=== PATIENT | female | born 1995 | race Caucasian/White ===

== ENCOUNTER 2022-11-17 03:55 | Emergency (ER) | payer BC, OTHER, SELFPAY ==
[2022-11-17 04:03] VITALS: BP 128/95; PULSE 59; RESP 18; TEMP 36.6; O2SAT 100
--- NOTE | 2022-11-17 04:13 | ED.GENADUL1 ---
HPI - General Adult General Chief complaint: Headache Time Seen by Provider: 11/17/22 04:10 Source: patient Mode of arrival: walk-in History of Present Illness HPI narrative: woke with pain along the right neck. Said that her neck was turned when she woke. Took nothing for the pain - came directly to the ED. No injury. No associated symptoms. Worse when trying to turn the neck to the right - easier to turn to the left. Denies any chance of Related Data Home Medications Medication Instructions Recorded Confirmed albuterol sulfate 90 mcg/actuation 2 puff inhalation Q6H PRN 11/17/22 11/17/22 aerosol inhaler shortness of breath or wheezing duloxetine 30 mg capsule,delayed 30 mg PO DAILY 11/17/22 11/17/22 release (Cymbalta) Previous Rx's Medication Instructions Recorded methocarbamol 750 mg tablet 750 mg PO Q8H #20 tabs 11/17/22 nabumetone 1,000 mg tablet 1,000 mg PO BID #14 tabs 11/17/22 (Relafen DS) Allergies Allergy/AdvReac Type Severity Reaction Status Date / Time No Known Drug Allergies Allergy Verified 11/17/22 04:03 Exam Narrative Exam Narrative: Nurses notes and vital signs reviewed and patient is not hypoxic. afebrile General: Well-appearing and in no apparent distress. Skin: Warm, dry, no pallor noted. No rash. Head: Normocephalic, atraumatic. Neck: Supple, no lymphadenopathy. Soft tissue tenderness right posteriolateral neck. Eye: Pupils are equal, round and EOMI. No scleral icterus. Cardiovascular: Regular Rate and Rhythm without murmur, gallop or rub. Respiratory: No accessory muscle use or respiratory distress. Lungs are clear to auscultation, no wheezing, rales or rhonchi Musculoskeletal: normal ROM Neurological: A&O x4. No cranial nerve dysfunction observed. No truncal ataxia. Moves all extremities. Sensation intact. Psychiatric: Cooperative and interactive. Normal mood and affect. Constitutional Vital Signs - 24 hr 11/17/22 04:03 Temperature 97.8 F Pulse Rate [Monitor] 59 L Respiratory Rate 18 Blood Pressure [Right Arm] 128/95 H Pulse Oximetry 100 Oxygen Delivery Method Room Air Course Vital Signs Vital signs: Vital Signs Temperature 97.8 F 11/17/22 04:03 Pulse Rate 59 L 11/17/22 04:03 Respiratory Rate 18 11/17/22 04:03 Blood Pressure 128/95 H 11/17/22 04:03 Pulse Oximetry 100 11/17/22 04:03 Oxygen Delivery Method Room Air 11/17/22 04:03 Temperature 97.8 F 11/17/22 04:03 Pulse Rate 59 L 11/17/22 04:03 Respiratory Rate 18 11/17/22 04:03 Blood Pressure 128/95 H 11/17/22 04:03 Pulse Oximetry 100 11/17/22 04:03 Oxygen Delivery Method Room Air 11/17/22 04:03 Medical Decision Making MDM Narrative Medical decision making narrative: patient with torticollis - given IM Toradol and oral Robaxin and discharged home. Prescribed relafen and robaxin for home use. Discharge Plan Discharge Chief Complaint: Headache Clinical Impression: Torticollis Patient Disposition: Home, Self-Care Time of Disposition Decision: 04:11 Prescriptions / Home Meds: New Relafen DS 1,000 mg tablet 1,000 mg PO BID Qty: 14 0RF methocarbamol 750 mg tablet 750 mg PO Q8H Qty: 20 0RF No Action duloxetine [Cymbalta] 30 mg capsule,delayed release(DR/EC) 30 mg PO DAILY albuterol sulfate 90 mcg/actuation HFA aerosol inhaler 2 puff INHALATION Q6H PRN (Reason: shortness of breath or wheezing) Instructions: Spasmodic Torticollis (ED) Stand Alone Forms: Portal Instructions Referrals: PALMIRA RIGGS [Primary Care Provider] - 1 week
[2022-11-17] MEDS: KETOROLAC TROMETHAMINE 60 MG/2 ML VIAL IM (04:16)
[2022-11-17] MEDS: METHOCARBAMOL 500 MG TABLET PO (04:16)
== END 2022-11-17 04:34 | disposition home or self-care (01) ==
LOC: ER 04:18
PROVIDERS: Emergency Provider Emergency Medicine; PCP Internal Medicine
DX: M43.6 Torticollis (principal); Z79.899 Other long term (current) drug therapy
CPT/HCPCS: 96374; 99284

== ENCOUNTER 2023-02-09 22:32 | Emergency (ER) | payer BC, SELFPAY ==
[2023-02-09 22:36] VITALS: BP 137/78; PULSE 79; RESP 18; O2SAT 99
--- NOTE | 2023-02-09 22:48 | XR_ITS ---
The [address] [address] Patient Name: MACARENA GAMBLE MRN: [id number] date: 1995 Sex: F Assigned Patient Location: ER Current Patient Location: ER Accession/Order Number: [id number] Exam Date: 02/09/2023 23:10 Report Date: 02/09/2023 23:22 At the request of: NICOLE MARKER Procedure: XR hand RT min 3V EXAM: XR hand RT min 3V HISTORY: Dog bite COMPARISON: None. TECHNIQUE: 2 views FINDINGS: IMPRESSION: Dorsal subcutaneous soft tissue edema. No radiodense foreign body, osseous lesion, fracture, dislocation or subluxation. Joint spaces are normal. No visualized effusion. Electronically authenticated by: JIE MANCINI Date: 02/09/2023 23:22
--- NOTE | 2023-02-09 22:48 | ED_ITS ---
HPI - Extremity Injury (Upper) General Chief Complaint: Extremity Injury, Upper Stated Complaint: Bite - Dog / Laceration-Punctures Time Seen by Provider: 02/09/23 22:43 Source: patient and family (Mother) History of Present Illness HPI narrative: This 27-year-old female who is right-hand dominant presents for evaluation of a dog bite to her right hand. The patient's mother states that they recently rescued a dog from a family in [place]. They were not given any information about the dog. The dog has not become acclimated to the other dog in the house and tonight the 2 dogs started fighting and the patient was accidentally bitten the right hand. She sustained a puncture wound to her right thenar eminence and 2 puncture wounds over the right 4th and 5th metacarpals as well as lacerated real to the distal end of the 4th finger. She states her hand feels painful and numb. She does not know the date of her last tetanus shot. Dog's immunization status is unknown at this time. Related Data Home Medications Medication Instructions Recorded Confirmed albuterol sulfate 90 mcg/actuation 2 puff inhalation Q6H PRN 11/17/22 11/17/22 aerosol inhaler shortness of breath or wheezing duloxetine 30 mg capsule,delayed 30 mg PO DAILY 11/17/22 11/17/22 release (Cymbalta) Previous Rx's Medication Instructions Recorded methocarbamol 750 mg tablet 750 mg PO Q8H #20 tabs 11/17/22 nabumetone 1,000 mg tablet 1,000 mg PO BID #14 tabs 11/17/22 (Relafen DS) Allergies Allergy/AdvReac Type Severity Reaction Status Date / Time No Known Drug Allergies Allergy Verified 11/17/22 04:03 Review of Systems ROS Status of ROS 10 or more systems reviewed and unremarkable except as noted in history and below PFS PFS Social History Smoking status: Never smoker Exam Narrative Exam Narrative: Nurses note and vital signs reviewed and patient is not hypoxic. General: Anxious, tearful female, no respiratory distress Skin: Warm, dry, no pallor noted. There is no rash noted. See description of right hand injury and musculoskeletal section Head: Normocephalic, atraumatic Eye: Normal conjunctiva, no drainage, EOMI. PERRL Ears, Nose, Mouth, and Throat: oral mucosa is moist. Cardiovascular: Regular Rate and Rhythm S1S2, Pulses are brisk and equal bilaterally Respiratory: Patient is in no distress, no accessory muscle use, lungs are clear to auscultation, no wheezing, rales or rhonchi Back: non-tender, no CVA tenderness bilaterally to percussion. Musculoskeletal: There Are 4 puncture wounds on the patient's right hand. There is an approximately 1 cm irregular puncture wound at the right thenar eminence, there are 2 puncture wounds 1 over the right 3rd MCP and went over the right 4th MCP. The one over the 3rd MCP is elliptical in approximately 1 cm. The other one is small and irregular. There are 2 superficial lacerations at the distal end of the right 3rd finger. Patient is reluctant to move her hands and fingers due to pain but she has no weakness or numbness. No active bleeding noted. Neurological: A&O x4, normal speech Psychiatric: Cooperative, tearful and anxious Constitutional Vital Signs, click to edit/add: Last Vital Signs Pulse 79 02/09/23 22:36 Resp 18 02/09/23 22:36 BP 137/78 02/09/23 22:36 Pulse Ox 99 02/09/23 22:36 O2 Del Method Room Air 02/09/23 22:36 Course Vital Signs Vital signs: Vital Signs Pulse Rate 79 02/09/23 22:36 Respiratory Rate 18 02/09/23 22:36 Blood Pressure 137/78 02/09/23 22:36 Pulse Oximetry 99 02/09/23 22:36 Oxygen Delivery Method Room Air 02/09/23 22:36 Pulse Rate 79 02/09/23 22:36 Respiratory Rate 18 02/09/23 22:36 Blood Pressure 137/78 02/09/23 22:36 Pulse Oximetry 99 02/09/23 22:36 Oxygen Delivery Method Room Air 02/09/23 22:36 MDM - Extremity Injury (Upper) MDM Narrative Medical decision making narrative: This 27-year-old female who is right-hand dominant is brought emergency department by her mother after she was bit by her mother's dog that she recently rescued from a family in [place]. She has 2 approximately 1 cm size puncture wound lacerations on the dorsal aspect of her right hand, but official lacerations to the distal end of her right 3rd finger and 2 additional puncture wounds adjacent to the laceration site. She was neurovascularly intact. Her hand was soaked in warm Hibiclens solution. Her tetanus was updated. X-ray of the right hand did not show any fracture or foreign body but did show soft tissue swelling consistent with the dog bites. The hand was infiltrated with 1 percent lidocaine and scrubbed with Betadine scrub. It was then irrigated and the lacerations that were approximately 1 cm were closed with 2 stitches each. A sterile dry dressing was placed on the patient's hand. Tetanus was updated. She was medicated emergency department with oral Augmentin and Zofran and a Riverside. She'll be discharged home with 2 Riverside to take throughout the night if she needs them for pain additionally I suggested that she use an ice pack. I extended her that the sutures can be removed in the next 10-12 days. I did encourage the patient's mother to attempt to reach the family that the dog was rescued from to see if the dog had its immunizations and if not the dog should be monitored for 10 days. Discharge Plan Discharge Chief Complaint: Extremity Injury, Upper Clinical Impression: Puncture wound, Dog bite of hand, Laceration of hand Patient Disposition: Home, Self-Care Time of Disposition Decision: 23:54 Condition: Good Prescriptions / Home Meds: No Action duloxetine [Cymbalta] 30 mg capsule,delayed release(DR/EC) 30 mg PO DAILY albuterol sulfate 90 mcg/actuation HFA aerosol inhaler 2 puff INHALATION Q6H PRN (Reason: shortness of breath or wheezing) Relafen DS 1,000 mg tablet 1,000 mg PO BID Qty: 14 0RF methocarbamol 750 mg tablet 750 mg PO Q8H Qty: 20 0RF Instructions: Animal Bite (ED), Care For Your Stitches (ED), Laceration (ED), Puncture Wound (ED) Additional Instructions: Subcutaneous hands and Stand Alone Forms: Portal Instructions Referrals: JELLY CHERY [Primary Care Provider] - 1 week Procedures Procedure Note Date of procedure: 02/09/23 Pre-op diagnosis: right hand laceration; dog bite Post-op diagnosis: same as pre-op Procedure: The right hand was soaked in Hibiclens solution and water. The laceration sites at the right thenar eminence and over the 3rd MCP were infiltrated with 1 percent lidocaine. Once anesthesia was obtained the lacerations were scrubbed with Betadine scrub and irrigated copiously with normal saline. The laceration over the right thenar eminence was loosely approximated with 2, 3-0 Ethilon sutures and the laceration over the 3rd MCP was also slight closed with 2, 3-0 Ethilon sutures. Patient tolerated procedure well. A sterile dry dressing was placed by the nursing staff.
--- NOTE | 2023-02-09 22:48 | PC.NURSE ---
patient states just prior to arrival she was laying on the couch with one of her moms dogs laying on top of her when moms other dog approached and started to growl, patient started to tell dog no and move when dog lunged forward and bit patients right hand. patient with 4 puncture wounds observed with no active bleeding at this time and small laceration to top of right middle finger. patient has been applying pressure and no active bleeding at this time, patient states her finger is starting to feel numb. patient states her mom just rescued this dog from someone who was rehoming the animal so they are unsure if the dog is up to date on vaccinations. patients mother filling out animal bite report at this time. patients wound soaking in Hibiclens at this time and dr guzman at bedside to assess injuries.
[2023-02-09] MEDS: ADACEL DIPH,PERTUSS(ACELL),TET VAC/PF 0.5 ML ADULT SYRINGE IM (23:16)
[2023-02-09] MEDS: AMOXICILLIN/POTASSIUM CLAV 1 TAB TABLET PO (23:16)
[2023-02-09] MEDS: ONDANSETRON 4 MG RAPDIS TABLET SL (23:16)
[2023-02-09] MEDS: LIDOCAINE HCL 1% 100 MG/10 ML MDV INJ (23:54)
== END 2023-02-10 00:29 | disposition home or self-care (01) ==
PROVIDERS: Emergency Provider Emergency Medicine; PCP Internal Medicine
DX: S61.451A Open bite of right hand, initial encounter (principal); W54.0XXA Bitten by dog, initial encounter; Z23 Encounter for immunization; Z79.899 Other long term (current) drug therapy
CPT/HCPCS: 12001; 73130; 90471; 90715; 99284

== ENCOUNTER 2024-03-10 12:29 | Outpatient (OUT) | payer OTHER, SELFPAY ==
--- NOTE | 2024-03-10 12:32 | US_ITS ---
[address] [address] Patient Name: MACRAENA GAMBLE MRN: [id number] date: 1995 Sex: F Assigned Patient Location: [facility] Current Patient Location: [facility] Accession/Order Number: [id number] Exam Date: 03/10/2024 12:33 Report Date: 03/10/2024 13:52 At the request of: NAYELY WILLS Procedure: US OB transvaginal EXAMINATION: US OB transvaginal HISTORY: MISSED MENSES COMPARISON: No relevant comparison available. FINDINGS: Mack intrauterine gestation Gestational sac: 2.71 cm, 7 weeks 4 days CRL: 1.71 cm, 8 weeks 1 day Yolk sac: 3.1 cm Heart rate: 160 bpm The uterus is normal, anteverted, anteflexed. Adjacent to the gestational sac is a 1.1 x 1.0 x 1.3 cm area of hypoechogenicity possibly representing a small subchorionic hematoma The ovaries are normal Cervix: Closed, 3.5 cm Clinical age: 8w5d Clinical greta: 10/15/24 Ultrasound age: 8w1d Ultrasound greta: 10/19/24 US/US OB transvaginal IMPRESSION: Viable mack intrauterine gestation measuring 8 weeks 1 day Electronically authenticated by: JIE TORRES Date: 03/10/2024 13:52
== END 2024-03-10 12:30 | disposition home or self-care (01) ==
LOC: NOMS 12:30
PROVIDERS: PCP Internal Medicine; Visit Provider Obstetrics & Gynecology
DX: Z34.01 Encounter for supervision of normal first pregnancy, first trimester (principal); Z3A.08 8 weeks gestation of pregnancy; N92.6 Irregular menstruation, unspecified
CPT/HCPCS: 76817

== ENCOUNTER 2024-04-04 09:26 | Outpatient (OUT) | payer BC, OTHER, SELFPAY ==
--- OUTSIDE RECORDS SUMMARY | 2024-04-04 09:50 | XMS_ITS | CCD ---
Author Organization [facility] Inform ion [facility] Care Team Providers Care Quality Assurance Director Name Role Phone Palmira Riggs DO Primary Care Provider SIMONE MANLEY Attending Unavailable PALMIRA RIGGS Primary Care Unavailable Asim Palma Unavailable Belia Vázquez Unavailable EMY, DR MCDOWELL Attending Unavailable EMY, DR MCDOWELL Consulting Unavailable EMY, DR MCDOWELL Admitting Unavailable PALMIRA RIGGS Primary Care Unavailable CONCHITA MEANS Admitting Unavailable CONCHITA MEANS Attending Unavailable CONCHITA MEANS Consulting Unavailable PALMIRA RIGGS Primary Care Unavailable TIP, DR HAWA Gorman Attending Unavailable TIP, DR HAWA Gorman Consulting Unavailable PALMIRA RIGGS Primary Care Unavailable TIP, DR HAWA Gorman Admitting Unavailable YAAKOV SANFORD Consulting Unavailable Belia Aguero Unavailable PALMIRA RIGGS Primary Care Physician [phone] Nasreen Delaney Unavailable MD Jelly Chery Primary Care Provider MD Simone Meng Emergency Provider [phone] MARISA SMALLWOOD Referring Unavailable MARISA SMALLWOOD Attending Unavailable JAISON PETIT Attending Unavailable MD Jelly Chery Primary Care Provider MD Simone Meng Emergency Provider FLO Johnson-Evan Richards Attending Provider [phone] Jelly Chery MD Unavailable [phone] MIGUEL ANG Attending Unavailable BRIANDA CARTWRIGHT Referring Unavailable Jelly Chery MD Primary Care Provider MD Jelly Chery Primary Care Provider MD Simone Bahena Attending Provider OJ Aguero Attending Provider MD Jelly Chery Primary Care Provider KRYSTAL Guerrier Attending Provider [phone] Risaliti, Susie Admitting Unavailable Risaliti, Susie Attending Unavailable Miri, Jelly Primary Care Unavailable Georgie Guerrier Admitting Unavailable Georgie Guerrier Attending Unavailable Belia Augero Admitting Unavailable Belia Aguero Attending Unavailable Miri, Jelly Primary Care Unavailable Taqueria, Simone Admitting Unavailable Taqueria, Simone Attending Unavailable Miri, Jelly Primary Care Unavailable Robyn, Simone Admitting Unavailable Robyn, Simone Attending Unavailable Miri, Jelly Primary Care Unavailable MIRI, JELLY Primary Care Unavailable JELLY CHERY Primary Care Physician [phone] Roman Syed Attending Unavailable Chichi Roy Attending Unavailable PAWAN DASH Attending Unavailable JASON PIEDRA Referring Unavailable RAD SIMS Attending Unavailable JELLY CHERY Referring Unavailable SARAH PELLETIER Attending Unavailable SARAH PELLETIER Referring Unavailable JELLY CHERY Attending Unavailable JELLY CHERY Referring Unavailable JENNIFER BYERS Attending Unavailable PENG OLIVARES Attending Unavailable PENG OLIVARES Referring Unavailable MIRI, JELLY Al Attending Unavailable MATTI SIMS Attending Unavailable PENG OLIVARES Referring Unavailable Allergies Allergy Classification Reported Allergen(s) Allergy Type Date of Onset Reaction(s) Facility Clavulanate (3 sources) Clavulanate; Translations: [clavulanic acid] Drug Allergy 4 Nausea, vomiting, diarrhea [facility] Penicillins (antibiotic) (7 sources) Penicillins; Translations: [Penicillins] Drug Allergy 1 vomiting, diarrhea, Nausea [facility] Unclassified (5 sources) Amoxicillin-Pot Clavulanate Propensity to adverse reactions to drug 1 Diarrhea [facility] (7 sources) Amoxicillin / Clavulanate; Translations: [amoxicillin-cl avulanate] Drug Allergy vomiting, diarrhea, rash [facility] (2 sources) Amoxicillin / Clavulanate; Translations: [Augmentin] Drug Allergy [facility] Repository (1 source) Penicillin Drug Allergy [facility] Repository (11 sources) Clavulanate Drug Allergy 3 GI intolerance [facility] (12 sources) Penicillins; Translations: [PENICILLINS] Allergy to substance 1 GI Upset, Rash [facility] (4 sources) Penicillin G sodium Allergy to substance 3 [facility] (7 sources) Amoxicillin Drug Allergy 4 vomiting, diarrhea [facility] Medications Current Medications Medication Drug Class(es) Dates Sig (Normalized) Sig (Original) Albuterol Sulfate HFA 108 MCG/ACT (3 sources) take 1 puff(s) by inhalation every four hours as needed Albuterol Sulfate HFA 108 MCG/ACT 1 puff as needed Inhalation every 4 hrs Active bisacodyl 10 mg rectal suppository (1 source) Stimulant Laxative Start: 03-24-2024 End: 04-03-2024 bisacodyl (Dulcolax) 10 MG suppository Indications: Constipation, unspecified constipation type Insert 1 suppository (10 mg) into the rectum Daily for 10 days 12 suppository 03/24/2024 04/03/2024 Active cefdinir 300 mg oral capsule (1 source) Cephalosporin Antibacterial Start: 03-21-2022 take 1 capsule by mouth every twelve hours Cefdinir 300 MG 1 capsule Orally every 12 hrs for 10 day(s) Feb, Active cefuroxime 500 mg oral tablet (1 source) Cephalosporin Antibacterial Start: 04-16-2022 take 1 tablet by mouth twice daily Ceftin 500 MG 1 tablet Orally Twice a day for 10 day(s) Mar, Active cephalexin 500 mg oral capsule (20 sources) Cephalosporin Antibacterial Start: 06-23-2022 take 1 capsule by mouth every twelve hours Cephalexin 500 MG 1 capsule Orally BID for 10 day(s) May, Active Start: 03-16-2019 End: 03-29-2019 take 1 capsule by mouth three times daily Cephalexin (Keflex) 500 mg Capsule Discontinued 500 MG PO Three times daily March 16, 2019 12:00am March 29, 2019 2:09pm Start: 07-26-2018 End: 08-05-2018 take 1 capsule by mouth every eight hours Cephalexin (Keflex) 500 mg capsule Discontinued 500 MG PO Q8H 23 03July 26, 2018 1:00am August 05, 2018 12:02am cyclobenzaprine hydrochloride 10 mg oral tablet (20 sources) Muscle Relaxant Start: 12-08-2020 take 1 tablet by mouth three times daily as needed for muscle spasms cyclobenzaprine (FLEXERIL) 10 MG tablet Take 1 tablet by mouth 3 times daily as needed for Muscle spasms 30 tablet 0 12/08/2020 Active Start: 11-21-2020 End: 01-11-2023 take 10 mg by mouth three times daily Cyclobenzaprine Discontinued 10 MG PO Three times daily November 21, 2020 12:00am January 11, 2023 10:30pm Start: 10-23-2018 cyclobenzaprin e Oral, Refills(s) 0 Start Date: 10/23/18 Status: Ordered Start: 10-23-2018 End: 11-14-2018 take 10 mg by mouth three times daily Cyclobenzaprine Discontinued 10 MG PO Three times daily October 23, 2018 12:00am November 14, 2018 3:37pm Start: 08-26-2018 End: 10-13-2018 take 10 mg by mouth three times daily Cyclobenzaprine Discontinued 10 MG PO Three times daily 10 August 26, 2018 12:00am October 13, 2018 3:04am DULoxetine 60 mg delayed release oral capsule (20 sources) Serotonin and Norepinephrine Reuptake Inhibitor Start: 09-29-2023 Duloxetine Active MG PO September 29, 2023 12:00am Start: 07-27-2023 End: 09-29-2023 take 60 mg by mouth once daily Duloxetine Discontinued 60 MG PO Daily July 27, 2023 10:13am September 29, 2023 10:45am Start: 04-30-2023 End: 03-10-2024 take 1 capsule by mouth in the morning DULoxetine (Cymbalta) [address] capsule Indications: Moderate episode of recurrent major depressive disorder (CMS/HCC) Take 1 capsule (60 mg) by mouth in the morning. Do not crush or chew. . 90 capsule 3 04/30/2023 03/10/2024 Discontinued Start: 10-21-2022 End: 07-27-2023 take 30 mg by mouth once daily Duloxetine Discontinued 30 MG PO Daily January 11, 2023 12:00am July 27, 2023 10:14am take 1 capsule by mo uth every twenty-four hours Cymbalta 30 MG 1 capsule Orally Once a day Active Comment on above: Take 30 mg by mouth. fluticasone propionate 0.05 mg/actuat metered dose nasal spray (20 sources) Corticosteroid Start: take 1 spray(s) nasal route in the morning fluticasone (Flonase) 50 MCG/ACT nasal spray Indications: Allergic rhinitis, unspecified seasonality, unspecified trigger Administer 1 spray into each nostril in the morning. 16 g 3 04/30/2023 Active Start: 01-11-2023 End: 07-27-2023 Fluticasone Propionate (Flon ase) 50 mcg/actuation Freer,Suspension Discontinued 2 SPRAY INTRANASAL Daily January 11, 2023 12:00am July 27, 2023 3:06pm Start: 01-16-2019 End: 03-03-2019 take 1 spray(s) nasal route every twelve hours Fluticasone Propionate (Flonase Allergy Relief) 50 mcg/actuation spray,suspension Discontinued 1 SPRAY INTRANASAL Q12H 9.9 January 16, 2019 12:00am March 03, 2019 9:46pm administer into each nostril Start: 06-18-2017 End: 08-15-2017 take 1 spray(s) nasal route twice daily Fluticasone Propionate (Flonase Allergy Relief) 50 mcg/actuation spray,suspension Discontinued 2 SPRAY INTRANASAL Twice daily 19.8 June 18, 2017 1:00am August 15, 2017 7:54pm administer into each nostril take 1 spray(s) nasa l route once daily Flonase Allergy Relief 50 MCG/ACT 1 spray in each nostril Nasally Once a day Active loratadine 10 mg oral tablet (17 sources) Start: 01-11-2023 End: 03-10-2024 take 10 mg by mouth once daily Loratadine Active 10 MG PO Daily October 30, 2023 12:00am Multivitamin preparation (1 source) take 1 tablet by mouth once daily Multi Vitamin - 1 tablet Orally Once a day Active nystatin 100 unt/mg topical powder (15 sources) Polyene Antifungal Start: 10-30-2023 End: 03-10-2024 nystatin (Mycostatin) 853080 UNIT/GM powder Twice daily 10/30/2023 03/10/2024 Discontinued Start: 10-30-2023 End: 02-04-2024 Nystatin Discontinued 1 APPL IC TOPICAL Twice daily 30 7 October 30, 2023 12:00am February 04, 2024 1:27pm Start: 09-29-2023 End: 02-04-2024 Nystatin Discontinued TOPICA L September 29, 2023 12:00am February 04, 2024 1:27pm Start: 10-17-2022 Nystatin 48377 0 UNIT/GM 1 application Externally Twice a day September, Active nystatin 824439 unt/ml / triamcinolone acetonide 1 mg/ml topical cream (2 sources) Polyene Antifungal, Corticosteroid Start: 02-04-2024 Nystatin-Triamcinolone Active 1 APPLIC TOPICAL Twice daily February 04, 2024 12:00am Start: 02-02-2024 End: 03-10-2024 nystatin-triamcinolone (Myco log II) cream Indications: Rash Apply topically 2 (two) times a day 30 g 02/02/2024 03/10/2024 Discontinued ondansetron 4 mg disintegrating oral tablet (20 sources) Serotonin-3 Receptor Antagonist Start: 12-14-2023 End: 03-10-2024 ondansetron ODT (Zofran-ODT) 4 MG disintegrating tablet if needed 12/14/2023 03/10/2024 Discontinued Start: 04-26-2019 End: 05-02-2019 take 4 mg by mouth every eight hours Ondansetron Discontinued 4 MG PO Q8H 10 April 26, 2019 1:00am May 02, 2019 2:05am Start: 11-14-2018 End: 12-18-2018 take 1 tablet by mouth every eight hours Ondansetron Hcl (Zofran) 4 mg tablet Discontinued 4 MG PO Q8H 14 4 November 14, 2018 12:00am December 18, 2018 12:55am Start: 07-26-2018 End: 07-31-2018 take 1 tablet by mouth three times daily Ondansetron Hcl (Zofran) 4 mg tablet Discontinued 4 MG PO Three times daily 15 5 July 26, 2018 1:00am July 31, 2018 1:03am Start: 04-21-2017 End: 06-17-2017 take 1 tablet by mouth every eight hours Ondansetron (Zofran Odt) 8 mg tablet,disintegrating Discontinued 8 MG PO Q8H April 21, 2017 1:00am June 17, 2017 11:40pm MV-Min-Fe Fum-FA-DHA ( 1 PO) (2 sources) MV-Min- Fe Fum-FA-DHA ( 1 PO) Take by mouth Active Sprintec (4 sources) Start: 11-14-19 take 1 tablet by mouth once daily Sprintec 1 tab(s), Oral, Daily, Refill(s) 0 Start Date: 11/13/18 Status: Ordered sulfamethoxazole 800 mg / trimethoprim 160 mg oral tablet (16 sources) Dihydrofolate Reductase Inhibitor Antibacterial, Sulfonamide Antimicrobial Start: 07-05-19 take 1 tablet by mouth twice daily sulfamethoxazole-t rimethoprim (Bactrim DS) 800-160 MG per tablet Indications: Recurrent acute suppurative otitis media without spontaneous rupture of tympanic membrane of both sides 1 po bid until all taken. 14 tablet 0 07/05/2023 Active Start: 06-18-2022 take 1 tablet by giselle th every twelve hours Bactrim DS 800-160 MG 1 tablet Orally Twice a day for 7 days May, Active Start: 03-01-2021 End: 04-04-2021 take 1 tablet by mouth twice daily Sulfamethoxazole-Trimethoprim (Bactrim Ds) 800-160 mg tablet Discontinued 1 TAB PO Twice daily March 01, 2021 12:00am April 04, 2021 10:08pm venlafaxine (15 sources) Serotonin and Norepinephrine Reuptake Inhibitor Start: 10-23-2018 venlafaxine Oral, Refills(s) 0 Start Date: 10/23/18 Status: Ordered Start: 05-15-2018 End: 01-11-2023 take 37.5 mg by mouth once daily Venlafaxine Discontinued 37.5 MG PO Daily May 15, 2018 1:00am January 11, 2023 10:30pm EVERY OTHER DAY. Completed/Discontinued Medications Medication Drug Class(es) Dates Sig (Normalized) Sig (Original) acetaminophen 325 mg / HYDROcodone bitartrate 5 mg oral tablet (11 sources) Opioid Agonist Start: 01-11-2023 End: 07-27-2023 take 1 tablet by mouth every four to six hours Hydrocodone-Acetam inophen Discontinued 1 - 2 TAB PO EVERY 4-6 HOURS 10 January 11, 2023 July 27, 2023 3:06pm [id number] 200 actuat albuterol 0.09 mg/actuat metered dose inhaler (20 sources) beta2-Adrenergic Agonist Start: 07-27-2023 End: 09-07-2023 take 1 puff(s) by inhalation every four hours Albuterol Sulfate (Proair Hfa) 90 mcg/actuation HFA aerosol inhaler Discontinued 1 PUFF INHALATION Every 4 hours July 27, 2023 10:12am September 07, 2023 2:30pm Start: 06-17-2017 End: 09-29-2017 take 1 puff(s) by inhalation every four to six hours Albuterol Sulfate (Proventil Hfa) 90 mcg/actuation Hfa Aerosol Inhaler Discontinued 2 PUFF INHALATION EVERY 4-6 HOURS September 19, 2017 12:00am September 29, 2017 1:01pm with spacer End: 03-10-2024 take 1 puff(s) by inhalation every four hours albuterol HFA 90 mcg/act inhaler Inhale 1 puff every 4 (four) hours if needed for shortness of breath. 03/10/2024 Discontinued take 1 puff(s) by in halation every four hours as needed Albuterol Sulfate HFA 108 (90 Base) MCG/ACT 1 puff as needed Inhalation every 4 hrs Active Albuterol Sulfate (Proair Hfa) 90 mcg/actuation HFA aerosol inhaler (11 sources) Start: 09-29-2017 End: 07-27-2023 take 1 puff(s) by inhalation every four to six hours Albuterol Sulfate (Proair Hfa) 90 mcg/actuation HFA aerosol inhaler Discontinued 2 PUFF INHALATION EVERY 4-6 HOURS September 29, 2017 12:00am July 27, 2023 10:14am Start: 09-29-2017 take 1 puff(s) by in halation every four to six hours Albuterol Sulfate (Proair Hfa) 90 mcg/actuation HFA aerosol inhaler Active 2 PUFF INHALATION EVERY 4-6 HOURS September 28, 2017 11:00pm Start: 09-29-2017 take 1 puff(s) by in halation every four to six hours Albuterol Sulfate (Proair Hfa) 90 mcg/actuation HFA aerosol inhaler Active 2 PUFF INHALATION EVERY 4-6 HOURS September 29, 2017 12:00am amoxicillin 875 mg oral tablet (11 sources) Penicillin-class Antibacterial Start: 12-04-2018 End: 12-18-2018 Amoxicillin Discontinued TABLET December 04, 2018 12:00am December 18, 2018 12:55am amoxicillin 875 mg / clavulanate 125 mg oral tablet (11 sources) Penicillin-class Antibacterial Start: 09-29-2017 End: 10-29-2017 take 1 tablet by mouth twice daily Amoxicillin-Pot Clavulanate (Augmentin) 875-125 mg tablet Discontinued 1 TAB PO Twice daily September 29, 2017 12:00am October 29, 2017 5:45pm azithromycin 250 mg oral tablet (11 sources) Macrolide Antimicrobial Start: 03-30-2019 End: 04-26-2019 Azithromycin (Zithromax Z-Sherman) 250 mg tablet Discontinued 250 MG PO As Directed March 30, 2019 1:00am April 26, 2019 5:18pm 2 po on day 1, then 1 po QD x 4 days benzonatate 100 mg oral capsule (20 sources) Non-narcotic Antitussive Start: 04-26-2019 End: 05-02-2019 take 100 mg by mouth twice daily Benzonatate Discontinued 100 MG PO Twice daily April 26, 2019 1:00am May 02, 2019 2:05am Start: 03-26-2017 End: 04-20-2017 take 2 capsules by mouth every eight hours Benzonatate (Tessalon Perles) 100 mg capsule Discontinued 200 MG PO Q8H March 26, 2017 12:00am April 21, 2017 12:49am 120 actuat budesonide 0.08 mg/actuat / formoterol fumarate 0.0045 mg/actuat metered dose inhaler (11 sources) Corticosteroid, beta2-Adrenergic Agonist Start: 06-18-2017 End: 08-15-2017 Budesonide-Formoterol (Symbicort) 80-4.5 mcg/actuation HFA aerosol inhaler Discontinued 2 INH INHALATION Twice daily 6.9 June 18, 2017 1:00am August 15, 2017 7:54pm cetirizine hydrochloride 10 mg oral tablet (11 sources) Histamine-1 Receptor Antagonist Start: 01-16-2019 End: 03-03-2019 take 2 tablets by mouth once daily Cetirizine (Zyrtec) 10 mg tablet Discontinued 20 MG PO Daily 14 7 January 16, 2019 12:00am March 03, 2019 9:46pm Ciprofloxacin / Dexamethasone (20 sources) Corticosteroid, Quinolone Antimicrobial Start: 01-11-2023 End: 07-27-2023 Ciprofloxacin-Dexamethas one Discontinued 4 DROPS EAR-RIGHT Twice daily 7.5 January 11, 2023 12:00am July 27, 2023 3:06pm Start: 01-11-2023 Ciprofloxacin- Dexamethasone Active 4 DROPS EAR-RIGHT Twice daily 7.5 January 10, 2023 11:00pm Start: 01-11-2023 Ciprofloxacin- Dexamethasone Active 4 DROPS EAR-RIGHT Twice daily 7.5 January 11, 2023 12:00am Start: 06-13-2019 End: 11-11-2019 Ciprofloxacin-Dexamethasone (Ciprodex) 0.3-0.1 % Drops,Suspension Discontinued 4 DROPS EAR-LEFT Q12H 7.5 7 June 13, 2019 1:00am November 11, 2019 4:48pm Start: 01-16-2019 End: 03-03-2019 Ciprofloxacin-Dexamethasone (Ciprodex) 0.3-0.1 % drops,suspension Discontinued 4 DROPS EAR-BOTH Twice daily January 16, 2019 12:00am March 03, 2019 9:46pm clindamycin 300 mg oral capsule (11 sources) Lincosamide Antibacterial Start: 12-04-2018 End: 12-18-2018 take 1 capsule by mouth three times daily Clindamycin Hcl (Cleocin Hcl) 300 mg Capsule Discontinued 300 MG PO Three times daily December 04, 2018 12:00am December 18, 2018 12:55am Dexamethasone (4 sources) Corticosteroid Start: 05-21-2022 DEXAMETHASONE Apr, 10 mg 12 hr dextromethorphan polistirex 6 mg/ml extended release suspension (11 sources) Uncompetitive A-deinsz-W-aspartat e Receptor Antagonist, Sigma-1 Agonist Start: 03-03-2019 End: 03-16-2019 take 1 mL by mouth every twelve hours Dextromethorphan Polistirex (Delsym 12 Hour) 30 mg/5 mL suspension,extended rel 12 hr Discontinued 10 ML PO Q12H 148 March 03, 2019 12:00am March 16, 2019 10:25am diphenhydrAMINE hydrochloride 25 mg oral capsule (11 sources) Histamine-1 Receptor Antagonist Start: 10-16-2018 End: 10-23-2018 Diphenhydramine Hcl (Benadryl) 25 mg Capsule Discontinued 50 MG PO every 6 to 8 hours October 16, 2018 12:00am October 23, 2018 1:57am doxycycline hyclate 100 mg oral capsule (20 sources) Tetracycline-class Drug Start: 08-07-2023 End: 09-29-2023 take 100 mg by mouth twice daily Doxycycline Hyclate Discontinued 100 MG PO Twice daily 60 September 07, 2023 2:39pm September 29, 2023 10:45am Start: 11-11-2019 End: 02-15-2020 take 100 mg by mouth twice daily Doxycycline Hyclate Discontinued 100 MG PO Twice daily 20 November 11, 2019 12:00am February 15, 2020 10:23pm escitalopram 20 mg oral tablet (11 sources) Serotonin Reuptake Inhibitor Start: 04-20-2017 End: 09-29-2017 take 1 tablet by mouth once daily Escitalopram Oxalate (Lexapro) 20 mg Tablet Discontinued 20 MG PO Daily April 20, 2017 1:00am September 29, 2017 1:00pm esomeprazole 40 mg delayed release oral capsule (11 sources) Proton Pump Inhibitor Start: 02-28-2021 End: 04-04-2021 take 40 mg by mouth once daily Esomeprazole Magnesium Discontinued 40 MG PO Daily February 28, 2021 12:00am April 04, 2021 10:08pm Norgestimate-Ethinyl Estradiol (11 sources) Progestin, Estrogen Start: 08-26-2018 End: 03-03-2019 take 1 tablet by mouth once daily Norgestimate-Ethiny l Estradiol (Sprintec (28)) 0.25-35 mg-mcg tablet Discontinued 1 TAB PO Daily August 25, 2018 11:00pm March 03, 2019 8:46pm Start: 08-26-2018 End: 03-03-2019 take 1 tablet by mouth once daily Norgestimate-Ethinyl Estradiol (Sprintec (28)) 0.25-35 mg-mcg tablet Discontinued 1 TAB PO Daily August 26, 2018 12:00am March 03, 2019 9:46pm famotidine 40 mg oral tablet (14 sources) Histamine-2 Receptor Antagonist Start: 09-22-2020 End: 03-01-2021 take 40 mg by mouth once daily Famotidine Discontinued 40 MG PO Daily September 22, 2020 12:00am March 01, 2021 12:00am take 1 tablet by giselle th every twenty-four hours Famotidine 20 MG 1 tablet at bedtime as needed Orally Once a day Not-Taking fluconazole 150 mg oral tablet (5 sources) Azole Antifungal Start: 10-30-2023 End: 02-04-2024 Fluconazole Discontinued 150 MG PO Q3D October 30, 2023 12:00am February 04, 2024 1:27pm FLUoxetine 20 mg oral capsule (11 sources) Serotonin Reuptake Inhibitor Start: 03-26-2017 End: 04-20-2017 Fluoxetine Discontinued March 26, 2017 12:00am April 21, 2017 12:49am ibuprofen 600 mg oral tablet (20 sources) Nonsteroidal Anti-inflammatory Drug Start: 03-01-2021 End: 01-11-2023 take 600 mg by mouth every eight hours Ibuprofen Discontinued 600 MG PO Q8H March 01, 2021 12:00am January 11, 2023 10:30pm Start: 11-21-2020 End: 03-01-2021 take 800 mg by mouth three times daily Ibuprofen Discontinued 800 MG PO Three times daily November 21, 2020 12:00am March 01, 2021 12:00am Start: 01-16-2019 End: 03-16-2019 take 600 mg by mouth every six hours Ibuprofen Discontinued 600 MG PO Q6H January 16, 2019 12:00am March 16, 2019 10:25am Start: 12-04-2018 End: 12-18-2018 take 800 mg by mouth three times daily Ibuprofen Discontinued 800 MG PO Three times daily December 04, 2018 12:00am December 18, 2018 12:55am Start: 10-23-2018 ibuprofen Refi lls(s) 0 Start Date: 10/23/18 Status: Ordered Start: 10-23-2018 End: 11-14-2018 take 800 mg by mouth three times daily Ibuprofen Discontinued 800 MG PO Three times daily October 23, 2018 12:00am November 14, 2018 3:37pm Start: 06-12-2018 End: 08-26-2018 take 800 mg by mouth three times daily Ibuprofen Discontinued 800 MG PO Three times daily 14 Caro 19th, 2019 1:00am August 26, 2018 5:10pm meclizine hydrochloride 25 mg oral tablet (11 sources) Antiemetic Start: 09-29-2017 End: 05-15-2018 take 25 mg by mouth three times daily Meclizine Discontinued 25 MG PO Three times daily September 29, 2017 12:00am May 15, 2018 10:55pm meloxicam 15 mg oral tablet (20 sources) Nonsteroidal Anti-inflammatory Drug Start: 06-13-2019 End: 02-15-2020 take 1 tablet by mouth once daily Meloxicam (Mobic) 15 mg tablet Discontinued 15 MG PO Daily June 13, 2019 1:00am February 15, 2020 10:23pm Start: 10-23-2018 Mobic Oral, Da denisha, Refills(s) 0 Start Date: 10/23/18 Status: Ordered Start: 10-13-2018 End: 03-03-2019 take 15 mg by mouth once daily Meloxicam Discontinued 15 MG PO Daily October 13, 2018 12:00am March 03, 2019 9:46pm methylPREDNISolone (3 sources) Corticosteroid Start: 05-14-2023 End: 07-05-2023 methylPREDNISolone (Medrol Dospak) 4 MG tablets Indications: Fluid level behind tympanic membrane of right ear Follow schedule on package instructions 21 tablet 0 05/14/2023 07/05/2023 Discontinued (Therapy completed) Start: 04-16-2022 methylPREDNISo lone 4 MG as directed Orally Mar, Active metroNIDAZOLE 500 mg oral tablet (11 sources) Nitroimidazole Antimicrobial Start: 03-01-2021 End: 04-04-2021 take 1 tablet by mouth twice daily Metronidazole (Flagyl) 500 mg tablet Discontinued 500 MG PO Twice daily 05 12March 01, 2021 12:00am April 04, 2021 10:08pm montelukast 10 mg oral tablet (20 sources) Leukotriene Receptor Antagonist Start: 02-28-2021 End: 01-11-2023 take 1 tablet by mouth once daily Montelukast (Singulair) 10 mg Tablet Discontinued 10 MG PO Daily February 28, 2021 12:00am January 11, 2023 10:30pm Start: 11-11-2019 End: 02-15-2020 take 10 mg by mouth once daily Montelukast Discontinue d 10 MG PO Daily November 11, 2019 12:00am February 15, 2020 10:23pm naproxen 500 mg oral tablet (11 sources) Nonsteroidal Anti-inflammatory Drug Start: 08-26-2018 End: 10-13-2018 take 1 tablet by mouth twice daily at mealtime Naproxen (Naprosyn) 500 mg tablet Discontinued 500 MG PO Twice daily August 26, 2018 12:00am October 13, 2018 3:04am administer with food or milk omeprazole 40 mg delayed release oral capsule (15 sources) Proton Pump Inhibitor Start: 11-14-2018 End: 01-16-2019 take 40 mg by mouth once daily Omeprazole Discontinued 40 MG PO Daily November 14, 2018 12:00am January 16, 2019 12:21am Start: 11-13-2018 omeprazole Ora l, Daily, Refills(s) 0 Start Date: 11/13/18 Status: Ordered penicillin v potassium 500 mg oral tablet (11 sources) Start: 03-29-2019 End: 03-30-2019 take 500 mg by mouth twice daily Penicillin V Potassium Discontinued 500 MG PO Twice daily 13 03March 29, 2019 1:00am March 30, 2019 1:15am predniSONE 20 mg oral tablet (20 sources) Start: 01-15-2021 take 2 tablets by mouth every twenty-four hours prednisone 20 MG 2 tablets Orally daily for 5 days Dec, Not-Taking Start: 12-18-2018 End: 01-16-2019 take 40 mg by mouth once daily in the morning Prednisone Discontinued 40 MG PO Every morning 10 December 18, 2018 12:00am January 16, 2019 12:21am administer with food or milk Start: 10-16-2018 End: 11-14-2018 take 6 tablets by mouth once daily Prednisone Discontinued 0 MG PO Daily 39 October 16, 2018 12:00am November 14, 2018 3:37pm 6 tabs for 3 days 4 tabs for 3 days 2 tabs for 3 days 1 tabs for 3 days Start: 05-15-2018 End: 06-11-2018 take 40 mg by mouth once daily in the morning Prednisone Discontinued 40 MG PO Every morning 10 May 15, 2018 1:00am June 12, 2018 12:17am administer with food or milk Start: 09-19-2017 End: 09-29-2017 take 60 mg by mouth once daily at mealtime Prednisone Discontinued 60 MG PO Daily September 19, 2017 12:00am September 29, 2017 1:00pm administer with food or milk Problems Active Problems Problem Classification Problem Date Documented Da te Episodic/Chronic Abdominal pain (20 sources) Acute abdominal pain; Translations: [Unspecified abdominal pain] 04-05-2021 Episodic Acute and chronic tonsillitis (11 sources) Enlarged tonsil; Translations: [Hypertrophy of tonsils] Onset: 3 Resolved: 3 04-14-2023 Chronic Allergic reactions (13 sources) Atopic dermatitis; Translations: [Atopic dermatitis, unspecified] Onset: 4 10-13-2018 Chronic Allergic reactions (11 sources) Allergic reaction; Translations: [Allergy, unspecified, initial encounter] 10-16-2018 Episodic Anxiety disorders (4 sources) Generalized anxiety disorder; Translations: [Generalized anxiety disorder] Onset: 3 10-18-2022 Chronic Disorders of teeth and jaw (11 sources) Dental caries; Translations: [Dental caries, unspecified] 12-04-2018 Episodic E Codes: Fall (1 source) Fall; Translations: [Unspecified fall, initial encounter] Onset: 4 Episodic Fluid and electrolyte disorders (2 sources) Other disorders of electrolyte and fluid balance, not elsewhere classified; Translations: [Dehydration] Onset: 2 Episodic Genitourinary symptoms and ill-defined conditions (12 sources) Dysuria; Translations: [Dysuria] Onset: 4 06-29-2019 Episodic Headache; including migraine (11 sources) Headache; Translations: [Headache] 11-14-2018 Episodic Inflammatory diseases of female pelvic organs (12 sources) Abscess of vulva; Translations: [Abscess of vulva] Onset: 4 03-01-2021 Episodic Lymphadenitis (11 sources) Mesenteric lymphadenitis; Translations: [Nonspecific mesenteric lymphadenitis] 06-29-2019 Episodic Malaise and fatigue (4 sources) Fatigue; Translations: [Chronic fatigue, unspecified] Onset: 3 Resolved: 3 04-20-2023 Chronic Menstrual disorders (1 source) Missed period; Translations: [Irregular menstruation, unspecified] 10-17-2024 Chronic Miscellaneous mental health disorders (7 sources) Psychophysiologic insomnia; Translations: [Psychophysiologic insomnia] Chronic Mood disorders (8 sources) Depressive disorder; Translations: [Recurrent major depressive episodes, moderate ] Onset: 3 01-19-2017 Chronic Mycoses (8 sources) Candidiasis of skin and nail; Translations: [Candidiasis of skin] Episodic Nausea and vomiting (20 sources) Nausea, vomiting and diarrhea; Translations: [Nausea with vomiting, unspecified] 04-02-2019 Episodic Other connective tissue disease (13 sources) Tendinitis of ankle; Translations: [Other enthesopathy of unspecified foot and ankle] Onset: 4 07-31-2021 Episodic Other connective tissue disease (2 sources) Pain in right hand; Translations: [Pain in right hand] 06-29-2023 Episodic Other connective tissue disease (1 source) Pain in right hand; Translations: [Right hand pain] Onset: 4 Episodic Other connective tissue disease (5 sources) Pain in finger; Translations: [Pain in right finger(s)] 10-13-2023 Episodic Other connective tissue disease (6 sources) Pain in right finger(s); Translations: [Pain in limb] 10-13-2023 Episodic Other connective tissue disease (1 source) Hand pain; Translations: [Pain in left hand] Onset: 4 Episodic Other connective tissue disease (1 source) Pain of right forearm; Translations: [Pain in right forearm] 03-28-2024 Episodic Other ear and sense organ disorders (20 sources) Otitis externa; Translations: [Unspecified otitis externa, unspecified ear] 06-13-2019 Chronic Other gastrointestinal disorders (11 sources) Diarrhea; Translations: [Diarrhea, unspecified] 09-22-2020 Episodic Other injuries and conditions due to external causes (11 sources) Muscle strain; Translations: [Other injury of unspecified body region, initial encounter] 11-21-2020 Episodic Other injuries and conditions due to external causes (11 sources) Minor head injury; Translations: [Unspecified injury of head, initial encounter] 04-21-2017 Episodic Other injuries and conditions due to external causes (8 sources) Injury of right hand; Translations: [Unspecified injury of right wrist, hand and finger(s), initial encounter] 09-29-2023 Episodic Other injuries and conditions due to external causes (8 sources) Unspecified injury of right wrist, hand and finger(s), initial encounter; Translations: [Hand, except finger injury] Onset: 4 09-29-2023 Episodic Other injuries and conditions due to external causes (1 source) Injury of right wrist; Translations: [Unspecified injury of right wrist, hand and finger(s), initial encounter] 03-28-2024 Episodic Other liver diseases (4 sources) Fatty (change of) liver, not elsewhere classified; Translations: [Other chronic nonalcoholic liver disease] Onset: 3 01-07-2023 Chronic Other lower respiratory disease (11 sources) Cough; Translations: [Cough] 03-03-2019 Episodic Other lower respiratory disease (11 sources) Chronic cough; Translations: [Chronic cough] 06-18-2017 Episodic Other nervous system disorders (7 sources) Sleep-wake schedule disorder, delayed phase type; Translations: [Circadian rhythm sleep disorder, delayed sleep phase type] Chronic Other nervous system disorders (13 sources) Neuropathy; Translations: [Polyneuropathy, unspecified] Onset: 4 11-21-2020 Chronic Other non-traumatic joint disorders (1 source) Pain of right wrist; Translations: [Pain in right wrist] 03-28-2024 Episodic Other nutritional; endocrine; and metabolic disorders (4 sources) Hyperbilirubinemia; Translations: [Other disorders of bilirubin metabolism] Onset: 3 10-20-2022 Chronic Other nutritional; endocrine; and metabolic disorders (2 sources) Body mass index 30+ - obesity; Translations: [Obesity, unspecified] Onset: 3 01-07-2023 Chronic Other nutritional; endocrine; and metabolic disorders (1 source) Other disorders of bilirubin metabolism; Translations: [Other disorders of bilirubin metabolism] Onset: 3 Chronic Other and delivery including normal (2 sources) ; Translations: [Encounter for supervision of normal , unspecified, unspecified trimester] 03-10-2024 Episodic Other screening for suspected conditions (not mental disorders or infectious disease) (13 sources) MRI scan abnormal; Translations: [Abnormal findings on diagnostic imaging of other specified body structures] Onset: 4 09-07-2023 Chronic Other upper respiratory disease (4 sources) Allergic rhinitis; Translations: [Allergic rhinitis, unspecified] Onset: 3 10-18-2022 Chronic Other upper respiratory disease (1 source) Pain in throat; Translations: [Pain in throat] Onset: 3 Episodic Otitis media and related conditions (13 sources) Acute non-suppurative otitis media - serous; Translations: [Acute serous otitis media, unspecified ear] 01-16-2019 Episodic Residual codes; unclassified (1 source) Acquired absence of organ; Translations: [Acquired absence of other organs] Onset: 3 Episodic Skin and subcutaneous tissue infections (1 source) Local infection of the skin and subcutaneous tissue, unspecified Episodic Spondylosis; intervertebral disc disorders; other back problems (1 source) Myofascial pain syndrome; Translations: [Dorsalgia, unspecified] Episodic Sprains and strains (20 sources) Sprain of hand; Translations: [Sprain of unspecified part of unspecified wrist and hand, initial encounter] Onset: 4 03-17-2019 Episodic Superficial injury; contusion (1 source) Abrasion of head; Translations: [Abrasion of other part of head, initial encounter] Onset: 4 Episodic Unclassified (1 source) Local infection of the skin and subcutaneous tissue, unspecified; Translations: [Local infection of the skin and subcutaneous tissue, unspecified] Onset: 4 Unclassified (1 source) Otalgia, right ear; Translations: [Otalgia, right ear] Onset: 3 Urinary tract infections (11 sources) Urinary tract infectious disease; Translations: [Urinary tract infection, site not specified] 03-16-2019 Episodic Past or Other Problems Problem Classification Problem Date Documented Da te Episodic/Chronic Asthma (8 sources) Asthma; Translations: [Uncomplicated mild persistent asthma] Onset: 01-07-2023 Resolved: 01-13-2023 11-03-2013 Chronic Asthma (11 sources) Asthma 12-18-2018 E Codes: Natural/environment (5 sources) Bitten by dog, subsequent encounter; Translations: [Bitten by dog, initial encounter] Onset: 02-17-2023 Episodic Immunizations and screening for infectious disease (4 sources) Encounter for immunization; Translations: [ENCOUNTER FOR IMMUNIZATION] Onset: 03-29-2021 Episodic Malaise and fatigue (4 sources) Weakness; Translations: [WEAKNESS] Onset: 11-17-2021 Episodic Nutritional deficiencies (1 source) Nutritional deficiency, unspecified; Translations: [NUTRITIONAL DEFICIENCY UNSPECIFIED] Onset: 11-20-2021 Episodic Open wounds of extremities (20 sources) Dog bite of finger; Translations: [Open bite of right index finger without damage to nail, initial encounter] Onset: 02-17-2023 11-11-2019 Episodic Other connective tissue disease (1 source) Other specified enthesopathies of unspecified lower limb, excluding foot Onset: 07-20-2021 Resolved: 07-20-2021 Episodic Other gastrointestinal disorders (5 sources) Dysphagia; Translations: [Dysphagia, unspecified] Onset: 07-08-2022 Resolved: 04-14-2023 Episodic Other liver diseases (5 sources) Steatosis of liver; Translations: [Fatty (change of) liver, not elsewhere classified] Onset: 10-20-2022 Resolved: 04-14-2023 Chronic Other nervous system disorders (4 sources) Postoperative pain ; Translations: [Other acute postprocedural pain] Onset: 01-07-2023 Resolved: 04-14-2023 04-14-2023 Episodic Other non-traumatic joint disorders (1 source) Pain in left knee Onset: 07-20-2021 Resolved: 07-20-2021 Episodic Other upper respiratory infections (20 sources) Streptococcal sore throat; Translations: [Streptococcal sore throat] Onset: 03-22-2022 Resolved: 04-14-2023 Episodic Substance-related disorders (8 sources) Smoker; Translations: [Nicotine dependence, unspecified, uncomplicated] Onset: 01-07-2023 Resolved: 04-20-2023 06-02-2015 Chronic Comment on above: Added secondary to d ocumentation in Social History. Results Test Name Value Interpretation Reference Range Facility XR FOREARM 2 VIEWS RIGHTon 1 05-28-2023 XR FOREARM 2 VIEWS RIGHT XR FOREARM 2 VIEWS RIGHT Reason for exam: Fall with distal radial pain and bruising Views: 2 Findings: The alignment is normal. No fracture, dislocation or other acute pathology is demonstrated. No soft tissue abnormalities are seen. Impression: Negative exam. Dictated on: 03/28/2024 7:14 PM This report has been electronically signed and approved by the interpreting Radiologist. Normal Not Available ED Note-Physicianon 03-25-20 ED Note-Physician ED Note-Physician Basic Information Time Seen: Kp Kamara PA-C 03/24/2024 20:43 Chief Complaint pt to ED with c/o R wrist pain and facial abrasion after tripping on sidewalk. states approx 10 wks . denies falling onto belly, denies belly pain or vag bleeding. R wrist swelling and bruising noted. UTD on tetanus. History of Present Illness Patient is a 29-year-old 10-week female who presents today for evaluation of her right wrist pain and facial abrasion after tripping on the sidewalk this afternoon. Patient states that she actually tripped on a curb walking on the sidewalk this afternoon and fell onto her right side. She did scrape her face on the concrete. She did not lose consciousness is not on any blood thinners. She is not having any abdominal pain, nausea, vomiting. She states that she feels relatively fine outside of her right wrist pain. She states that she caught herself with her right wrist while falling. She states that she is up-to-date on her tetanus. She denies any dizziness, vision changes, difficulty speech, paresthesias, upper or lower extremity weakness. She states that it does hurt to move her wrist. Review of Systems No other aggravating or relieving factors no other associated symptoms no other prior treatments or complaints. Family: Reviewed and noncontributory Social: lives at home Review of systems negative unless otherwise specified in the HPI. Physical Exam Vitals & Measurements T: 36.8 ???C(Oral) HR: 57(Peripheral) RR: 16 BP: 128/68 SpO2: 100% HT: 157 cm WT: 98.4 kg BMI: 39.92 General: The patient appears well and in no apparent distress. Patient is resting comfortably on cart. Skin: Warm, dry, no pallor noted. Head: Normocephalic, atraumatic Neck: No JVD Eye: PERRLA, EOMI, normal gaze ENT: Moist mucus membranes Cardiovascular: Regular rate and rhythm. Normal peripheral perfusion Respiratory: CTA bilaterally. No respiratory distress no accessory muscle use no obvious audible wheezing Chest Wall: no deformity Musculoskeletal: normal ROM, no deformity. Diffuse tenderness to palpation diffusely about the right wrist. There is no deformity but there is swelling and bruising noted on the volar aspect noted. There is pain with flexion and extension as well as supination and pronation. There is no tenderness along the remainder of the forearm elbow hand or the anatomical snuffbox. GI: Soft no obvious distention. No rebound or rigidity. No guarding. No tenderness. Neurological: A&O moves all extremities equal strength and symmetry. No ataxia with finger-nose or [id number]. Intact sensation of bilateral upper and lower extremities. No Dysphasia. Psychiatric: Cooperative and appropriate Medical Decision Making Patient is a 29-year-old 10-week female presents today for evaluation of her right wrist pain and facial abrasion after tripping on the sidewalk this afternoon. Patient states she excellently tripped over a curb and fell onto her right side scraping her face and catching herself on her wrist. Her main concern is for right wrist pain. She is not having any belly pain, nausea, vomiting. Denies any other systemic signs or symptoms. On exam the patient is afebrile nontoxic-appearing. She does have diffuse tenderness to palpation diffusely to the wrist. No deformity but there is swelling and bruising noted to the volar aspect. Pain with range of motion. No tenderness to the remaining upper extremity. Unremarkable neuroexam. Abdomen is soft and nontender. X-rays of the right wrist are negative for any acute fracture or dislocation. Patient likely has a right wrist sprain and was placed in a thumb spica Velcro wrist splint. She will be discharged home with close follow-up with her PCP for further evaluation and management of this. We discussed if she has new or worsening symptoms she should promptly return to the ED for reevaluation. Return to ED precautions were reviewed with the patient at length. Assessment/Plan Accidental fall (W19.XXXA: Unspecified fall, initial encounter) Facial abrasion (S00.81XA: Abrasion of other part of head, initial encounter) Right wrist sprain (S63.501A: Unspecified sprain of right wrist, initial encounter) Orders: Splint Application Wrist Disposition Plan Patient Discharge Condition Stable Discharge Disposition Home Discharge Prescription List Prescriptions No active prescription medications Follow-up With When Contact Information JELLY CHERY In 3 days 03/27/[address] [place] [address] [address] [place] [phone] Business (1) Additional Instructions: Patient Education Wrist Sprain, Adult Attestation Patient seen and evaluated by the physician medical office assistant. Attending physician was present in the emergency department and supervised care. This visit was performed by both the physician and an APC. I performed all aspects of the MDM as documented. This report was transcribed using voice recognition software. (more content not included)... Normal [facility] Comment on above: Result Comment: Elec tronically Signed By: Kp Kamara PA-C\.br\Date and Time Signed: 03/24/24 22:31 EDT\.br\Electronically Co-Signed By: Luther Ventura DO\.br\Date and Time Co-Signed: 03/25/24 02:57 EDT XR Wrist 3+ Views Righton XR Wrist 3+ Views Right Exam Date/Time: 03/24/2024 21:18 EDT Reason for Exam: Fall Report IMPRESSION: NEGATIVE RIGHT WRIST. CLINICAL INFORMATION: Fall COMPARISON: None. FINDINGS: Four views of the right wrist were obtained. The bones of the right wrist appear normal without evidence of fracture or dislocation. Ordering Provider: Chichi Roy FINAL REPORT Dictated: 03/25/2024 10:44 am Rylan Pepe MD Signed (Electronic Signature): 03/25/2024 10:44 am Signed by: Rylan Pepe MD Transcribed by: ANTHONY Technologist: TADEO Technical Comments Radiation Dose: Ka,r in mGy = na DAP = na Normal [facility] ED Clinical Summaryon 2023 ED Clinical Summary ED Clinical Summary [place] [id number] ED Clinical Summary Person Information Name: DEVORAH [place] Age: 29 Years : 1995 Sex: Female Language: Mongolian PCP: JELLY CHERY MD Marital Status: Single Phone: [phone] Visit Id: Visit Reason: Facial abrasion, minor; Fall; Wrist pain-swelling; FALL, 10 WEEKS Speciality: Acuity: 4 Enc Type: Emergency Med Service: Emergency Arrival: 03/24/2024 18:45:11 Discharge: 03/24/2024 22:38:52 LOS: 000 03:53 Checkin: 03/24/2024 18:45:11 Checkout: 03/24/2024 22:38:52 Dispo Type: Home (Routine DC) EVENTS: Event Name Event Status Request Date/Time Start Date/Time Complete Date/Time Arrive Complete 03/24/2024 18:45:11 03/24/2024 18:45:11 03/24/2024 18:45:11 Document Home Meds Request 03/24/2024 18:45:11 Triage Complete 03/24/2024 18:45:11 03/24/2024 18:59:28 03/24/2024 18:59:28 Registration Complete 03/24/2024 18:49:05 03/24/2024 18:49:05 03/24/2024 18:49:05 Reg Complete Request 03/24/2024 18:49:05 Reg Bed Request Complete 03/24/2024 18:49:05 03/24/2024 18:49:05 03/24/2024 18:49:05 X-Ray Complete 03/24/2024 18:59:53 03/24/2024 20:52:20 03/24/2024 21:18:23 Bed Assign Complete 03/24/2024 20:42:10 03/24/2024 20:42:10 03/24/2024 20:42:10 Dr Exam Complete 03/24/2024 20:42:10 03/24/2024 20:43:06 03/24/2024 20:43:06 RN Exam Complete 03/24/2024 20:42:10 03/24/2024 21:06:29 03/24/2024 21:06:29 Registration Request 03/24/2024 20:43:06 Dr Exam Complete 03/24/2024 20:46:44 03/24/2024 20:46:44 03/24/2024 20:46:44 Wet Read Request 03/24/2024 21:18:23 Discharge Complete 03/24/2024 22:20:05 03/24/2024 22:38:59 03/24/2024 22:38:59 Transfer Complete 03/24/2024 22:38:59 03/24/2024 22:38:59 03/24/2024 22:38:59 ADDRESS: [address] [place] [phone] PHYS DOC NOTES: MEDICAL INFORMATION: Prescriptions Given: Medications to Continue with No Changes Other Medications cyclobenzaprine By Mouth. ethinyl estradiol-norgestimate (Sprintec) 1 Tablets By Mouth every day. ibuprofen meloxicam (Mobic) By Mouth every day. omeprazole By Mouth every day. venlafaxine By Mouth. PATIENT EDUCATION INFORMATION: Instructions: Wrist Sprain, Adult Follow up: With: Address: When: [address], [address] [address] Business (1) In 3 days 03/27/2024 DIAGNOSIS: Accidental fall; Facial abrasion; Right wrist sprain Normal [facility] ED Patient Summaryon 024 ED Patient Summary ED Patient Summary [address] [address] Patient Discharge Instructions Person Information Name: DEVORAH SHELTON Age: 29 Years Arrival Date: 03/24/2024 18:45:11 Discharge Diagnosis: Accidental fall; Facial abrasion; Right wrist sprain Primary Care Physician: JELLY CHERY MD Provider Information Primary Provider: Luther Ventura DO Advanced Copy Reader:Kp Kamara PA-C The exam and treatment you received in the Emergency Department were for an urgent problem and are not intended as complete care. It is important that you follow up with a doctor, nurse practitioner, or physician???s medical office assistant for ongoing care. If your symptoms become worse or you do not improve as expected and you are unable to reach your usual health care provider, you should return to the Emergency Department. We are available 24 hours a day. DEVORAH SHELTON has been given the following list of patient education materials, prescriptions and follow-up instructions: Follow-up Instructions: With: Address: When: [address], [address] [place] [address] Business (1) In 3 days 03/27/2024 In the event that this physician does not participate in your insurance network, please consult with your insurance company to find a nearby participating provider. Patient Education Materials: Wrist Sprain, Adult A MESSAGE TO ALL PATIENTS REGARDING OPIOIDS PRESCRIPTION OPIOIDS: WHAT YOU NEED TO KNOW Prescription opioids can be used to help relieve vnxvlxom-nq-vzebwb pain and are often prescribed following a surgery or injury, or for certain health conditions. These medications can be an important part of the treatment but also come with serious risks. It is important to work with your healthcare provider to make sure you are getting the safest, most effective care. WHAT ARE THE RISKS AND SIDE EFFECTS OF OPIOID USE? Prescription opioids carry serious risks of addiction and overdose, especially with prolonged use. An opioid overdose, often marked by slowed breathing, can cause sudden . The use of prescription opioids can have a number of side effects as well, even when taken as directed: ??? Tolerance???meaning you might need to take more of the medication for the same pain relief ??? Physical dependence???meaning you have symptoms of withdrawal when a medication is stopped ??? Increased sensitivity to pain ??? Constipation ??? Nausea, vomiting, and dry mouth ??? Sleepiness and dizziness ??? Confusion ??? Depression ??? Low levels of testosterone that can result in lower sex drive, energy, and strength ??? Itching and sweating RISKS ARE GREATER WITH: ??? History of drug misuse, substance use disorder, or overdose ??? Mental health conditions (such as depression or anxiety) ??? Sleep apnea ??? Older age (65 years and older) ??? Avoid alcohol while taking prescription opioids. Also, unless specifically advised by your health care provider, medications to avoid include: ??? Benzodiazepines (such as Xanax or Valium) ??? Muscle relaxants (such as Soma or Flexeril) ??? Hypnotics (such as Ambien or Lunesta) ??? Other prescription opioids KNOW YOUR OPTIONS Talk to your health care provider about ways to manage your pain that don???t involve prescription opioids. Some of these options may actually work better and have fewer risks and side effects. Options may include: ??? Pain relievers such as acetaminophen, ibuprofen, and naproxen ??? Some medication that are also used for depression or seizures ??? Physical therapy and exercise ??? Cognitive behavioral therapy, a psychological, goal-directed approach, in which patients learn how to modify physical, behavioral, and emotional triggers of pain and stress. IF YOU ARE PRESCRIBED OPIOIDS FOR PAIN: ??? Never take opioids in greater amounts or more often than prescribed. ??? Follow up with your primary health care provider. o Work together to create a plan on how to manage your pain. o Talk about ways to help manage your pain that don???t involve prescription opioids. o Talk about any and all concerns and side effects. ??? Help prevent misuse and abuse o Never sell or share prescription opioids. o Never use another person???s prescription opioids. ??? Store prescription opioids in a secure place and out of reach of others (this may include visitors, children, friends, and family). ??? Safely dispose of unused prescription opioids: Find your community drug take-back program or your pharmacy mail-back program, or flush them down the toilet, following guidance from the Food and Drug Administration (www.fda.gov/Drugs/Resour cesForYou). ??? Visit www.cdc.gov/drugoverdose to learn about the risks of opioids abuse and overdose. ??? If you believe you may be struggling with calvin (more content not included)... Normal [facility] HCG ( test) Ql (U)o n 03-10-2024 Interpretation and review of laboratory results Abnormal [facility] Preg Test, Ur Positive [facility] Urinalysis macro (dipstick) panel (U)on 03-10-2024 Bilirubin, UA Positive Negative - 4(70) +++ mg/dL [facility] Comment on above: small Blood, UA Negative Negative - 50 Raúl/mcL [facility] Clarity, UA Clear [facility] Color, UA Yellow [facility] Glucose, UA Negative Negative - 2000(110) ++++ mg/dL [facility] Interpretation and review of laboratory results Abnormal [facility] Ketones, UA Positive Negative - 160(16) ++++ mg/dL [facility] Comment on above: 40 Leukocytes, UA Negative Negative - 500+++ Zainab/mcL [facility] Nitrite, UA Negative Negative - Positive [facility] pH, UA 6.5 5 - 9 [facility] Protein, UA Negative Negative - 1999(20) ++++ mg/dL [facility] Spec Grav, UA 1.025 1 - 1.03 [facility] Urobilinogen, UA 0.2 0.2 - 12 mg/dL [facility] XR Hand 3+ Views Lefton 12-24 XR Hand 3+ Views Left Exam Date/Time: 01/15/2024 22:18 EDT Reason for Exam: Pain, Traumatic Report IMPRESSION: NEGATIVE LEFT HAND. CLINICAL HISTORY: Pain, Traumatic COMPARISONS: NONE AVAILABLE FINDINGS: AP, lateral and oblique views of the left hand demonstrate no evidence of fracture, dislocation, bone or joint abnormality. Ordering Provider: Jason Frost FINAL REPORT Dictated: 01/16/2024 9:28 am Rylan Pepe MD Signed (Electronic Signature): 01/16/2024 9:28 am Signed by: Rylan Pepe MD Transcribed by: ANTHONY Technologist: BISI Technical Comments Radiation Dose: Kar in mGy = na DAP = na Normal [facility] ED Clinical Summaryon 2023 ED Clinical Summary ED Clinical Summary [address] [address] ED Clinical Summary Person Information Name: DEVORAH SHELTON [facility] Age: 28 Years : 1995 Sex: Female Language: Mongolian PCP: JELLY CHERY MD Marital Status: Single Phone: [phone] Visit Id: Visit Reason: Finger injury - Minor; Hand pain-swelling; Hand injury - Minor; LT HAND INJURY Speciality: Acuity: 4 Enc Type: Emergency Med Service: Emergency Arrival: 01/15/2024 21:22:33 Discharge: 01/15/2024 22:46:42 LOS: 000 01:24 Checkin: 01/15/2024 21:22:33 Checkout: 01/15/2024 22:46:42 Dispo Type: Home (Routine DC) EVENTS: Event Name Event Status Request Date/Time Start Date/Time Complete Date/Time Arrive Complete 01/15/2024 21:22:33 01/15/2024 21:22:33 01/15/2024 21:22:33 Document Home Meds Request 01/15/2024 21:22:33 Triage Complete 01/15/2024 21:22:33 01/15/2024 21:42:47 01/15/2024 21:42:47 Registration Complete 01/15/2024 21:29:04 01/15/2024 21:29:04 01/15/2024 21:29:04 Reg Complete Request 01/15/2024 21:29:04 Reg Bed Request Complete 01/15/2024 21:29:04 01/15/2024 21:29:04 01/15/2024 21:29:04 Bed Assign Complete 01/15/2024 21:43:38 01/15/2024 21:43:38 01/15/2024 21:43:38 Dr Exam Complete 01/15/2024 21:43:38 01/15/2024 21:45:52 01/15/2024 21:45:52 RN Exam Complete 01/15/2024 21:43:38 01/15/2024 21:50:39 01/15/2024 21:50:39 Registration Request 01/15/2024 21:45:52 Dr Exam Complete 01/15/2024 21:53:35 01/15/2024 21:53:35 01/15/2024 21:53:35 X-Ray Complete 01/15/2024 22:06:07 01/15/2024 22:09:17 01/15/2024 22:18:05 Wet Read Request 01/15/2024 22:18:05 Discharge Complete 01/15/2024 22:35:57 01/15/2024 22:46:45 01/15/2024 22:46:45 Transfer Complete 01/15/2024 22:46:45 01/15/2024 22:46:45 01/15/2024 22:46:45 ADDRESS: [address] [place] [phone] PHYS DOC NOTES: MEDICAL INFORMATION: Prescriptions Given: Medications to Continue with No Changes Other Medications cyclobenzaprine By Mouth. ethinyl estradiol-norgestimate (Sprintec) 1 Tablets By Mouth every day. ibuprofen meloxicam (Mobic) By Mouth every day. omeprazole By Mouth every day. venlafaxine By Mouth. PATIENT EDUCATION INFORMATION: Instructions: Musculoskeletal Pain Follow up: With: Address: When: JELLY [address], [address] [place] [address] [employer] (1) In 3 days 01/18/2024 Comments: To schedule follow-up appointment with your family physician if symptoms not improve in the next 2 to 3 days. Alternate Tylenol, ibuprofen, and ice as needed for pain management. Return to the ED with any worsening symptoms DIAGNOSIS: Hand pain, left Normal [facility] ED Note-Physicianon 01-15-20 ED Note-Physician ED Note-Physician Basic Information Time Seen: Margot MCWILLIAMS, Jason Luu 01/15/2024 21:45 Chief Complaint Pt to ED with c/o left hand and finger pain and swelling from injury yesterday when it was smashed. Able to move fingers, pulse intact. Motrin this AM. History of Present Illness Patient is a 28-year-old female who presents to the ED with left hand pain that occurred yesterday. Patient states she was moving furniture in her house when she smashed it between a bookcase and a wall. Patient states she woke up noting bruising and swelling to her hand along with pain. Patient denies taking any medication for the pain. She denies any other complaints at this time. Review of Systems A 10 point review of systems is negative except as noted above. Medical and Surgical History: Reviewed and noted Social history: Lives at home Family History: Reviewed. Tobacco: High risk Physical Exam Vitals & Measurements T: 37.3 ?C(Oral) HR: 66(Peripheral) RR: 18 BP: 131/86 SpO2: 98% HT: 157 cm WT: 96.4 kg BMI: 39.11 General: The patient appears well and in no apparent distress. Patient is resting comfortably on cart. Skin: Warm, dry, no pallor noted. Head: Normocephalic, atraumatic Neck: No JVD Eye: PERRLA, EOMI ENT: Moist mucus membranes Cardiovascular: Regular rate normal peripheral perfusion Respiratory: No respiratory distress no accessory muscle use no obvious audible wheezing Chest Wall: no deformity Musculoskeletal: normal ROM, no deformity, edema and ecchymosis to the left second and third metacarpals with tenderness to palpation to the second metacarpal. Flexion and extension of the MCP joints intact, no tenderness to palpation of the wrist, neurovascularly intact GI: Soft no obvious distention. No rebound or rigidity. No guarding. No tenderness. Neurological: A&O moves all extremities equal strength and symmetry Psychiatric: Cooperative and appropriate Medical Decision Making Patient is a 28-year-old female who presents to the ED with left hand pain that occurred yesterday after getting her hand smashed between a wall and bookshelf yesterday. Patient is neurovascularly intact. She denies any for pain medication while in the ED. Left hand x-ray shows no acute osseous abnormalities. Patient is updated on the results. She was educated on symptomatic care. Patient will follow-up with her family physician if symptoms not improve in the next 2 to 3 days. She was advised to return to the ED with any worsening symptoms. Patient is agreeable with the plan and all questions were answered. Assessment/Plan Hand pain, left (M79.642: Pain in left hand) Orders: XR Hand 3+ Views Left Disposition Plan Patient Discharge Condition stable Discharge Disposition home Discharge Prescription List Prescriptions No active prescription medications Follow-up With When Contact Information JELLY CHERY In 3 days 01/18/2024 EDT [address] Business (1) Additional Instructions: To schedule follow-up appointment with your family physician if symptoms not improve in the next 2 to 3 days. Alternate Tylenol, ibuprofen, and ice as needed for pain management. Return to the ED with any worsening symptoms Patient Education Musculoskeletal Pain Attestation Patient seen and evaluated by the physician medical office assistant. Attending physician was present in the emergency department and supervised care. This visit was performed by both the physician and an APC. I performed all aspects of the MDM as documented. This report was transcribed using voice recognition software. Every effort was made to ensure accuracy, however, inadvertently computerized transport tank technician mistakes may be present. Appropriate healthcare PPE was used in evaluating this patient. The patient was placed in a mask. The healthcare provider was wearing mask, gloves, and utilizing proper hand hygiene. All equipment was properly cleansed. I performed a substantive part of the MDM during the patient?s E/M visit. I personally made or approved the documented management plan and acknowledge its risk of complications. (Independent Interpretation) My (EKG/X-Ray/US/CT as applicable) interpretation as above. (Discussion) Management/test interpretation discussed with APC. Problem List/Past Medical History Ongoing Smoker Historical Asthma Depression (emotion) Procedure/Surgical History Tonsillectomy (07/07/2022), None. Medications Inpatient No active inpatient medications Home cyclobenzaprine, Oral ibuprofen Mobic, Oral, Daily omeprazole, Oral, Daily Sprintec, 1 tab(s), Oral, Daily venlafaxine, Oral Allergies Augmentin (rash) Social History Alcohol - Denies Alcohol Use, 10/25/2013 Current, 11/13/2018 Current, 10/23/2018 Current, 08/05/2017 Substance Abuse - Denies Substance Abuse, 10/25/2013 Current, 11/13/2018 Current, 10/23/2018 Current, 08/05/2017 Tobacco - High Risk, 01/15/2024 Former sm (more content not included)... Normal [facility] Comment on above: Result Comment: Elec tronically Signed By: Jason Frost PA-C\.br\Date and Time Signed: 01/15/24 22:43 EDT\.br\Electronically Co-Signed By: Roman Syed DO\.br\Date and Time Co-Signed: 01/15/24 23:00 EDT ED Patient Summaryon 024 ED Patient Summary ED Patient Summary [place] [id number] Patient Discharge Instructions Person Information Name: DEVORAH SHELTON Age: 28 Years Arrival Date: 01/15/2024 21:22:33 Discharge Diagnosis: Hand pain, left Primary Care Physician: JELLY CHERY MD Provider Information Primary Provider: Roman Syed DO Advanced Copy Reader:Jason Frost PA-C The exam and treatment you received in the Emergency Department were for an urgent problem and are not intended as complete care. It is important that you follow up with a doctor, nurse practitioner, or physician?s medical office assistant for ongoing care. If your symptoms become worse or you do not improve as expected and you are unable to reach your usual health care provider, you should return to the Emergency Department. We are available 24 hours a day. DEVORAH SHELTON has been given the following list of patient education materials, prescriptions and follow-up instructions: Follow-up Instructions: With: Address: When: [address], [address] [place] [phone] Business (1) In 3 days 01/18/2024 Comments: To schedule follow-up appointment with your family physician if symptoms not improve in the next 2 to 3 days. Alternate Tylenol, ibuprofen, and ice as needed for pain management. Return to the ED with any worsening symptoms In the event that this physician does not participate in your insurance network, please consult with your insurance company to find a nearby participating provider. Patient Education Materials: Musculoskeletal Pain A MESSAGE TO ALL PATIENTS REGARDING OPIOIDS PRESCRIPTION OPIOIDS: WHAT YOU NEED TO KNOW Prescription opioids can be used to help relieve twzxkuff-hz-wtvler pain and are often prescribed following a surgery or injury, or for certain health conditions. These medications can be an important part of the treatment but also come with serious risks. It is important to work with your healthcare provider to make sure you are getting the safest, most effective care. WHAT ARE THE RISKS AND SIDE EFFECTS OF OPIOID USE? Prescription opioids carry serious risks of addiction and overdose, especially with prolonged use. An opioid overdose, often marked by slowed breathing, can cause sudden . The use of prescription opioids can have a number of side effects as well, even when taken as directed: ? Tolerance?meaning you might need to take more of the medication for the same pain relief ? Physical dependence?meaning you have symptoms of withdrawal when a medication is stopped ? Increased sensitivity to pain ? Constipation ? Nausea, vomiting, and dry mouth ? Sleepiness and dizziness ? Confusion ? Depression ? Low levels of testosterone that can result in lower sex drive, energy, and strength ? Itching and sweating RISKS ARE GREATER WITH: ? History of drug misuse, substance use disorder, or overdose ? Mental health conditions (such as depression or anxiety) ? Sleep apnea ? Older age (65 years and older) ? Avoid alcohol while taking prescription opioids. Also, unless specifically advised by your health care provider, medications to avoid include: ? Benzodiazepines (such as Xanax or Valium) ? Muscle relaxants (such as Soma or Flexeril) ? Hypnotics (such as Ambien or Lunesta) ? Other prescription opioids KNOW YOUR OPTIONS Talk to your health care provider about ways to manage your pain that don?t involve prescription opioids. Some of these options may actually work better and have fewer risks and side effects. Options may include: ? Pain relievers such as acetaminophen, ibuprofen, and naproxen ? Some medication that are also used for depression or seizures ? Physical therapy and exercise ? Cognitive behavioral therapy, a psychological, goal-directed approach, in which patients learn how to modify physical, behavioral, and emotional triggers of pain and stress. IF YOU ARE PRESCRIBED OPIOIDS FOR PAIN: ? Never take opioids in greater amounts or more often than prescribed. ? Follow up with your primary health care provider. o Work together to create a plan on how to manage your pain. o Talk about ways to help manage your pain that don?t involve prescription opioids. o Talk about any and all concerns and side effects. ? Help prevent misuse and abuse o Never sell or share prescription opioids. o Never use another person?s prescription opioids. ? Store prescription opioids in a secure place and out of reach of others (this may include visitors, children, friends, and family). ? Safely dispose of unused prescription opioids: Find your community drug take-back program or your pharmacy mail-back program, or flush them down the toilet, following guidance from the Food and Drug Administration (www.fda.gov/Drugs/Resour cesForYou). ? Visit ww (more content not included)... Normal [facility] Cytology Cervical or vaginal smear or scraping studyOrdered By: Teresa Weber on 01-11-2024 [facility] GENITAL CULTUREon 01-03-2024 GENITAL CULTURE MICROBIOLOGY REPORT [facility], [address] [place] [address], [place], [address] PATIENT: DEVORAH SHELTON LOCATION: : 1995 AGE: 28 SEX: F ADM: 01/03/24 Att. Physician: JELLY CHERY Order Id: [id number] Req. Physician: ALPA PORTER Source: vagina Site: genital Collected: 01/03/24 16:08 Current Antibiotics: none Antibiotics comment: - Evan Wills M Gaby N T Tonia post culture STATUS OF ORDERED AND REPORTED TESTS GENITAL CULTURE FINAL 01/06/24 GRAM STAIN FINAL 01/04/24 GENITAL CULTURE FINAL 01/06/24 06:43 01/04/24 Normal lenka; no pathogens isolated-preliminary 01/05/24 Mixed genital lenka present. 01/06/24 No GC isolated GRAM STAIN FINAL 01/04/24 07:51 01/04/24 No segmented neutrophils observed. Moderate epithelial cells observed. Many large gram positive bacilli. Smear consistent with Normal Vaginal Lenka. Normal [facility] UA W/O MICROSCOPICon 024 BILIRUBIN, URINE Negative Normal NEGATIVE [facility] Comment on above: Performed By: #### W UA #### [facility] [address] [address] CHARACTER Clear Normal CLEAR-SL CLOUD [facility] Comment on above: Performed By: #### W UA #### [address] [place] [address] Color (U) Yellow Normal STRAW-YELL OW [facility] Comment on above: Performed By: #### W UA #### [facility] [address] [place] [address] Glucose Ql (U) Negative Normal NEGATIVE [facility] Comment on above: Performed By: #### W UA #### [address] [place] [address] Hemoglobin Ql (U) Negative Normal NEGATIVE [facility] Comment on above: Performed By: #### W UA #### [facility] [address] [place] [address] Ketones Ql (U) Negative Normal NEGATIVE [facility] Comment on above: Performed By: #### W UA #### [facility] [address] [address] LEUKOCYTES Negative Normal NEGATIVE [facility] Comment on above: Performed By: #### W UA #### [facility] [address] [address] Nitrite Ql (U) Negative Normal NEGATIVE [facility] Comment on above: Performed By: #### W UA #### [facility] [address] [address] pH (U) 7.00 [pH] Normal 5.0-9.0 [facility] Comment on above: Performed By: #### W UA #### [address] [address] Protein Ql (U) Negative Normal NEGATIVE [facility] Comment on above: Performed By: #### W UA #### [address] [address] Specific gravity (U) [Rel density] 1.015 Normal 1.002-1.03 0 [facility] Comment on above: Performed By: #### W UA #### [address] [address] Urobilinogen Qn (U) 0.20 {James'U}/dL Normal 0.2-1.0 [facility] Comment on above: Performed By: #### W UA #### [address] [address] Laboratory - Chemistry and C hemistry - challengeon 11-18-2023 Bilirubin Ql (U) Negative [facility] Glucose (U) [Mass/Vol] Negative [facility] Ketones Ql (U) Positive [facility] pH (U) 6.0 [pH] [facility] Specific gravity (U) [Rel density] 1.010 [facility] Urobilinogen (U) [Mass/Vol] 0.2 mg/dL [facility] Laboratory - Microbiology an d Antimicrobial susceptibilityOrdered By: Georgie Guerrier on 11-18-2023 N. gonorrhoeae DNA CRYSTAL+probe Ql (Unsp spec) Negative Negative [facility] Comment on above: Performed at: =[address] [place], [place] [id number] Director: Moon Tan MD, Phone: [phone] Laboratory - Specimen inform ationon 11-18-2023 Appearance (U) clear [facility] Color (U) paleyellow [facility] Laboratory - Urinalysison Leukocyte esterase Test strip Ql (U) Negative [facility] Nitrite Ql (U) Negative [facility] Protein Ql (U) Positive [facility] No Panel Informationon 11-17 Urine Occult Blood Negative [facility] No Panel InformationOrdered By: Georgie Guerrier on 11-18-2023 Anabell albicans (CRYSTAL) Negative Negative [facility] Comment on above: This test was develo ped and its performance characteristicsdetermined by [facility]. It has not been cleared orapproved by the Food and Drug Administration. Anabell glabrata (CRYSTAL) Negative Negative [facility] Comment on above: This test was develo ped and its performance characteristicsdetermined by [facility]. It has not been cleared orapproved by the Food and Drug Administration. Chlamydia trachomatis (CRYSTAL) (LAB) Negative Negative [facility] Trichomonas vaginalis (CRYSTAL) Negative Negative [facility] Urine Cultureon 11-18-2023 Bacteria identified Cx Nom (U) 75,000 colonies/ml mixed bacterial skin contaminants 2 Days PERFORMED BY: [place] [address] PATHOLOGIST PANEL GLUER NAINA NEWMAN M.D. Normal [facility] Comment on above: Performed By: #### V AGINITIS+ #### [facility] , #### CUU #### [address] Urine culture routineOrdered By: Georgie Guerrier on 11-18-2023 Bacteria identified Cx Nom (U) 2 Days [facility] Vaginal fluid Atopobium vagi holley DNA detection by probe and target amplification methoOrdered By: Georgie Guerrier on 11-18-2023 A. vaginae DNA CRYSTAL+probe Ql (Vag fld) Low - 0 Score . [facility] Comment on above: This test was develo ped and its performance characteristicsdetermined by [facility]. It has not been cleared orapproved by the Food and Drug Administration. Vaginal fluid Megasphaera sp ecies type 1 DNA detection by probe and target amplificatOrdered By: Georgie Guerrier on 11-18-2023 Megasphaera sp type 1 DNA CRYSTAL+probe Ql (Vag fld) Low - 0 Score . [facility] Comment on above: This test was develo ped and its performance characteristicsdetermined by [facility]. It has not been cleared orapproved by the Food and Drug Administration.Calculate total score by adding the 3 individual bacterialvaginosis (BV) marker scores together. Total score isinterpreted as follows:Total score 0-1: Indicates the absence of BV.Total score 2: Indeterminate for BV. Additional clinical data should be evaluated to establish a diagnosis.Total score 3-6: Indicates the presence of BV. Vaginal fluid bacterial vagi nosis associated bacterium 2 DNA detection by probe and tOrdered By: Georgie Guerrier on 11-18-2023 Bacterial vaginosis associated bacterium 2 DNA CRYSTAL+probe Ql (Vag fld) Low - 0 Score . [facility] Comment on above: This test was develo ped and its performance characteristicsdetermined by [facility]. It has not been cleared orapproved by the Food and Drug Administration. Vaginitis Plus (VG+)on 11-17 Atopobium Vaginae Low - 0 Normal . [facility] Comment on above: Result Comment: This test was developed and its performance characteristics determined by [facility]. It has not been cleared or approved by the Food and Drug Administration. Performed By: #### V AGINITIS+ #### [facility] , #### CUU #### [address] BVAB2 Low - 0 Normal . [facility] Comment on above: Result Comment: This test was developed and its performance characteristics determined by [facility]. It has not been cleared or approved by the Food and Drug Administration. Performed By: #### V AGINITIS+ #### [facility] , #### CUU #### [address] Anabell Albicans, CRYSTAL Negative Normal Negative [facility] Comment on above: Result Comment: This test was developed and its performance characteristics determined by [facility]. It has not been cleared or approved by the Food and Drug Administration. Performed By: #### V AGINITIS+ #### [facility] , #### CUU #### [place] [address] [place] Anabell Glabrata, CRYSTAL Negative Normal Negative [facility] Comment on above: Result Comment: This test was developed and its performance characteristics determined by [facility]. It has not been cleared or approved by the Food and Drug Administration. PERFORMED BY: [place] [address] PATHOLOGIST PANEL GLUER NAINA NEWMAN M.D. Performed By: #### V AGINITIS+ #### [facility] , #### CUU #### [place] [address] [place] Chlamydia Trachomotis, CRYSTAL Negative Normal Negative [facility] Comment on above: Performed By: #### V AGINITIS+ #### [facility] , #### CUU #### [place] [address] [place] Megasphaera Low - 0 Normal . [facility] Comment on above: Result Comment: This test was developed and its performance characteristics determined by [facility]. It has not been cleared or approved by the Food and Drug Administration. Calculate total score by adding the 3 individual bacterial vaginosis (BV) marker scores together. Total score is interpreted as follows: Total score 0-1: Indicates the absence of BV. Total score 2: Indeterminate for BV. Additional clinical data should be evaluated to establish a diagnosis. Total score 3-6: Indicates the presence of BV. Performed By: #### V AGINITIS+ #### [facility] , #### CUU #### [address] Neisseria Gonorrhoeae, CRYSTAL Negative Normal Negative [facility] [facility] Comment on above: Result Comment: Perf ormed at: =G - [facility] [address] [id number] Management Lead: Moon Tan MD, Phone: [phone] Performed By: #### V AGINITIS+ #### [facility] , #### CUU #### [address] Tric Vag CRYSTAL Negative Normal Negative [facility] Comment on above: Performed By: #### V AGINITIS+ #### [facility] , #### CUU #### [address] XR FOOT 3+ VIEWS RIGHTon XR FOOT 3+ VIEWS RIGHT FINDINGS: Bone mineralization is normal for this age. No acute fracture, dislocation or significant arthritic changes are seen. No significant joint space effusion is present. Soft tissues are without abnormal calcifications or radiopaque foreign body. No active erosive changes are identified. IMPRESSION: Normal skeletal appearance TRANSCRIBED BY: ELECTRONICALLY SIGNED BY: José Miguel Nino MD Normal Not Available XR hand RT min 3V*on 024 XR hand RT min 3V* [facility] [place] [address] [place] [address] XRay Report Signed Patient: Devorah Shelton MR#: [id number] : 1995 Acct:[id number] Age/Sex: 28 / F ADM Date: 09/29/23 Loc: [id number] Room: Type: [facility] Attending Dr: Belia GHOTRA-C Copies to: PARADISE Saavedra Ordering Provider: PARADISE Saavedra Date of Service: 09/29/23 XR/XR hand RT min 3V*: S69.91XA RIGHT HAND - 3 views CLINICAL DATA: Dog bite of the hand last fall. Patient awoke yesterday with swelling and numbness at the third finger and bruising at the second and third metacarpals. COMPARISON: 06/18/2023 AP, lateral and oblique views were obtained. There is no evidence of fracture or dislocation. There is minimal dorsal soft tissue swelling of the metacarpals. No typically bodies are seen.. XR/XR hand RT min 3V* IMPRESSION: NO ACUTE BONY FINDINGS. Impression dictated by: Liliana Goyal M.D.09/29/2023 11:30 AM Dictation Location: [facility]--12 Transcribed By: CATRINA 09/29/23 1130 Dictated By: Liliana Goyal MD 09/29/23 1128 Signed By: 09/29/23 1130 Normal [facility] Automated basophil %Ordered By: Simone Bahena on 07-27-2023 Basophils/100 WBC (Bld) 0.5 % Normal . [facility] Comment on above: Performed By: #### C BC, CRP, ESR #### [address] Automated basophil countOrde red By: Simone Bahena on 07-27-2023 Basophils (Bld) [#/Vol] 0.0 10*3/uL Normal 0.0-0.2 [facility] Comment on above: Performed By: #### C BC, CRP, ESR #### [address] Automated blood monocyte cou ntOrdered By: Simone Bahena on 07-27-2023 Monocytes (Bld) [#/Vol] 0.8 10*3/uL Normal 0.0-0.8 [facility] Comment on above: Performed By: #### C BC, CRP, ESR #### [address] Automated eosinophil %Ordere d By: Simone Bahena on 07-27-2023 Eosinophils/100 WBC (Bld) 1.0 % Normal . [facility] Comment on above: Performed By: #### C BC, CRP, ESR #### [address] Automated eosinophil countOr dered By: Simone Bahena on 07-27-2023 Eosinophils (Bld) [#/Vol] 0.1 10*3/uL Normal 0.0-0.45 [facility] Comment on above: Performed By: #### C BC, CRP, ESR #### [address] Automated monocyte %Ordered By: Simone Bahena on 07-27-2023 Monocytes/100 WBC (Bld) 8.2 % Normal . [facility] Comment on above: Performed By: #### C BC, CRP, ESR #### [address] Automated neutrophil %Ordere d By: Simone Bahena on 07-27-2023 Neutrophils/100 WBC (Bld) 62.4 % Normal . [facility] Comment on above: Performed By: #### C BC, CRP, ESR #### [address] C reactive protein [Mass/vol ume] in Serum or PlasmaOrdered By: Simone Bahena on 07-27-2023 CRP [Mass/Vol] 1.7 mg/dL 0.0-0.5 [facility] C-Reactive Proteinon 024 C-Reactive Protein 1.7 mg/dL High 0.0-0.5 [facility] Comment on above: Result Comment: PERF ORMED BY: [place] [address] PATHOLOGIST PANEL GLUER NAINA NEWMAN M.D. Performed By: #### C BC, CRP, ESR #### [address] Complete Blood Count Auto Di ffon 07-27-2023 Mean Corpuscular HGB Conc 34.0 g/dL Normal 32.0-35.0 [facility] Comment on above: Performed By: #### C BC, CRP, ESR #### [address] NRBC% 0.1 /100{WBC} Normal 0-0.5 [facility] Comment on above: Performed By: #### C BC, CRP, ESR #### [address] Erythrocyte Sedimentation Ra aishwarya 07-27-2023 ESR (Bld) [Velocity] 14 mm/h Normal 0-19 [facility] Comment on above: Result Comment: PERF ORMED BY: [place] [address] PATHOLOGIST PANEL GLUER NAINA NEWMAN M.D. Performed By: #### C BC, CRP, ESR #### [address] Erythrocyte distribution wid th [Ratio] by Automated countOrdered By: Simone Bahena on 07-27-2023 Erythrocyte distribution width (RBC) [Ratio] 12.8 % Normal 11.9-15.3 [facility] Comment on above: Performed By: #### C BC, CRP, ESR #### [address] Erythrocyte sedimentation ra te by Photometric methodOrdered By: Simone Bahena on 07-27-2023 ESR Photometric method (Bld) [Velocity] 14 mm/hr 0-19 [facility] Erythrocytes [#/volume] in B lood by Automated countOrdered By: Simone Bahena on 07-27-2023 RBC (Bld) [#/Vol] 4.14 10*6/uL Normal 3.60-5.00 [facility] Comment on above: Performed By: #### C BC, CRP, ESR #### [address] Hematocrit [Volume Fraction] of Blood by Automated countOrdered By: Simone Bahena on 07-27-2023 Hematocrit (Bld) [Volume fraction] 39.0 % Normal 34.0-46.4 [facility] Comment on above: Performed By: #### C BC, CRP, ESR #### [address] Hemoglobin [Mass/volume] in BloodOrdered By: Simone Bahena on 07-27-2023 Hemoglobin (Bld) [Mass/Vol] 13.3 g/dL Normal 11.8-15.4 [facility] Comment on above: Performed By: #### C BC, CRP, ESR #### [address] Leukocytes [#/volume] correc betty for nucleated erythrocytes in Blood by Automated counOrdered By: Simone Bahena on 07-27-2023 WBC corrected for nucl RBC Auto (Bld) [#/Vol] 9.4 10*3/uL 3.8-11.6 [facility] Leukocytes [#/volume] in Blo od by Automated countOrdered By: Simone Bahena on 07-27-2023 WBC (Bld) [#/Vol] 9.4 10*3/uL Normal 3.8-11.6 [facility] Comment on above: Performed By: #### C BC, CRP, ESR #### [address] Lymphocytes [#/volume] in Bl ood by Automated countOrdered By: Simone Bahena on 07-27-2023 Lymphocytes (Bld) [#/Vol] 2.6 10*3/uL Normal 1.00-4.8 [facility] Comment on above: Performed By: #### C BC, CRP, ESR #### [address] Lymphocytes/100 leukocytes i n Blood by Automated countOrdered By: Simone Bahena on 07-27-2023 Lymphocytes/100 WBC (Bld) 27.9 % Normal . [facility] Comment on above: Performed By: #### C BC, CRP, ESR #### [place] [address] [place] MCH [Entitic mass] by Automa betty countOrdered By: Simone Bahena on 07-27-2023 MCH (RBC) [Entitic mass] 32.0 pg Normal 24.7-34.3 [facility] Comment on above: Performed By: #### C BC, CRP, ESR #### [address] MCHC Auto (RBC) [Mass/Vol]Or dered By: Simone Bahena on 07-27-2023 MCHC (RBC) [Mass/Vol] 34.0 g/dL 32.0-35.0 [facility] MCV [Entitic volume] by Auto mated countOrdered By: Simone Bahena on 07-27-2023 MCV (RBC) [Entitic vol] 94.2 fL Normal 80-100 [facility] Comment on above: Performed By: #### C BC, CRP, ESR #### [address] Neutrophils [#/volume] in Bl ood by Automated countOrdered By: Simone Bahena on 07-27-2023 Neutrophils (Bld) [#/Vol] 5.8 10*3/uL Normal 1.8-7.7 [facility] Comment on above: Performed By: #### C BC, CRP, ESR #### [address] Nucleated erythrocytes [Pres ence] in Blood by Automated countOrdered By: Simone Bahena on 07-27-2023 Nucleated RBC Auto Ql (Bld) 0.1 /100{WBC} 0-0.5 [facility] Platelet mean volume [Entiti c volume] in Blood by Automated countOrdered By: Simone Bahena on 07-27-2023 Platelet mean volume (Bld) [Entitic vol] 7.7 fL Normal 6.3-10.7 [facility] Comment on above: Performed By: #### C BC, CRP, ESR #### [address] Platelets [#/volume] in Bloo d by Automated countOrdered By: Simone Bahena on 07-27-2023 Platelets (Bld) [#/Vol] 294 10*3/uL Normal 150-450 [facility] Comment on above: Performed By: #### C BC, CRP, ESR #### [address] MR HAND RIGHT W AND WO IV CO NTRASTon 07-22-2023 MR HAND RIGHT W AND WO IV CONTRAST MR HAND RIGHT W AND WO IV CONTRAST HISTORY: post dog bite in January, ongoing pain and swelling, r/o infection TECHNIQUE: Routine MRI of the right hand, with and without contrast. Given 20 mL of intravenous ProHance. COMPARISON: Radiographs 06/18/2023. RESULT: Cortical irregularity or erosion involving the dorsal aspect of the third metacarpal head, with some associated edema/enhancement with possible small joint effusion of the third MCP joint. Bone marrow signal appears preserved elsewhere in the hand. Other joints unremarkable. No increased fluid in the tendon sheaths. Musculature grossly unremarkable. No loculated subcutaneous collection. IMPRESSION: Cortical irregularity or erosion involving the third metacarpal head with some adjacent edema/enhancement and possible small joint effusion of the third MCP joint. Findings nonspecific, but given history are suspicious for infectious process with osteomyelitis of the third metatarsal head and possible septic arthritis of the third MCP joint. ELECTRONICALLY SIGNED BY: Miguel Collier MD Normal Not Available Comment on above: Order Comment: This does not need to be done stat but please schedule as soon as possible No Panel Informationon 07-05 INFLUENZA A Negative [facility] INFLUENZA B Negative [facility] Interpretation and review of laboratory results Normal [facility] S. pyogenes DNA CRYSTAL+probe No m (Unsp spec)on 07-05-2023 Interpretation and review of laboratory results Normal [facility] RESULT Negative [facility] CNOVon 06-29-2023 CNOV Office Visit (PLASMN ) ----- DEVORAH SHELTON ([id number]) 1995 F Date Time Provider Department 06/29/23 3:40 PM MIGUEL ANG During your visit today, we recorded the following information about you: Temperature Pulse Blood pressure 97.3 degrees 68/minute 121/67 Miguel Ang PA-C 06/30/2023 8:33 AM Signed PLASTIC SURGERY DEPARTMENT [facility] Hand Surgery Note [] New referred by []self []physician.......... [] Follow-up CC: ..right hand pain............ ? HPI: Devorah is a 28 year old female who presnets after being bit by a dog in February 2023. Reports was bit at [facility] and has never healed correctly. Patient also suffered infection of the right hand following a dog bite which she was treated with antibiotics. She reported that the infection started to move up the arm past the wrist. 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 Dominant Hand: right [x] left [] Date onset symptoms: .feb 2023 ......... Symptoms location -[x] RIGHT [] worse -[] LEFT [] worse Fingers 1[] 2[] 3[x] 4[] 5 [] 1[] 2[] 3[] 4[] 5 []. []Tingling []Numbness []Pain Symptoms location -[] RIGHT [] worse -[] LEFT [] worse Hand []Radial []volar [] ulnar [] dorsal []Radial []volar [] ulnar [] dorsal wrist []Radial []volar [] ulnar [] dorsal []Radial []volar [] ulnar [] dorsal forearm []Radial []volar [] ulnar [] dorsal []Radial []volar [] ulnar [] dorsal elbow []Radial []volar [] ulnar [] dorsal []Radial []volar [] ulnar [] dorsal arm [] [] shoulder [] [] neck [] [] []Tingling []Numbness []Pain Overall PAIN Now 0[] 1[] 2[] 3[] 4[] 5[] 6[] 7[] 8[] 9[] 10[] Average 0[] 1[] 2[] 3[] 4[] 5[] 6[] 7[] 8[] 9[] 10[] Rest 0[] 1[] 2[] 3[] 4[] 5[] 6[] 7[] 8[] 9[] 10[] Function 0[] 1[] 2[] 3[] 4[] 5[] 6[] 7[] 8[] 9[] 10[] Quality []sharp []dull []aching []sore []taut []pulled []torsion []shooting []pricking []pressing []lacerating []pinching []squeezing []drilling []spasm [] throbbing []burning []cramping []cutting []heavy []itchy []radiating [] electrical []stinging [] cold intolerance History of peripheral nerve compressions: Tingling or numbness yes [] no [] right [] Left [] 1[] 2[] 3[] 4[] 5[] Previous carpal tunnel syndrome yes [] no [] right [] Left [] Previous cubital tunnel syndrome yes [] no [] right [] Left [] Associated Signs/Symptoms Swelling [x] Bruising [] Stiffness [] Weakness [x] Pain? []same [x]better []worse over time Intervention/Prior Treatment: []no [x]yes [x]Decrease activity level and using heat/ ice []PT/OT,chiropractic treatments, or medically directed home exercise program for..........weeks in the last..........months (date started:...........) [x]Medications []Steroid injection []Splint/cast []Surgery............... No results found for: HBA1C Last 10 Encounter BP Readings: Date: BP: 06/29/2023 121/67 No flowsheet data found. No flowsheet data found. YES NO Smoking, vaping, nicotine, cannabis [x] [] Cigarettes/ day.... ? Hormone replacement (contraceptive, post menopause hormone treatment) [] [x] Medication.... Diabetes [] [x] []Type 1? []Type 2 ?Last A1c:..... Systemic inflammatory diseases [] [] []RA []Gout []Other... Hypertension [] [x] Meds:....... Heart disease or pacemaker [] [x] ............ Family history blood clots [] [] Personal history blood clots [] [] Anticoagulation (aspirin, coumadin, xarelto,etc) [] [x] What........... Reason:........... Immunosuppressants (steroid, biologic meds infusion, etc) [] [x] What........... Reason:........... Upper extremity AV fistula (dialysis) or vessels injury or disease [] [] Overhead activities [x] [] Cervical problems [] [] []C3 []C4 []C5 []C6 []C7 []C8 []T1 []Conservative []Fusion []Discectomy []Other... Pt AGAINST blood transfusion? [] [] ROS: All negative except for: GENERAL: []weight loss []malaise []fevers HEENT: []frequent or significant headaches []changes in hearing []change in vision []nose bleeds []other nasal problems NECK: []lumps []goiter []pain and significant neck swelling RESPIRATORY: []cough []hemoptysis []wheezing []COPD []dyspnea []shortness of breath CARDIOVASCULAR: []chest pain []leg swelling []hypertension []CHF []palpitations GI: []nausea []vomiting []diarrhea MUSCULOSKELETAL: see HPI SKIN: [] skin lesions []rash []itching PSYCH: []sleep disturbance []mood disorder []recent psychosocial stressors HEMATOLOGY/LYMPHOLOGY: []prolonged bleeding []bruising easily []swollen nodes ENDOCRINE: []cold intolerance []heat intolerance []polyuria []polydipsia []goiter Objective: BP 121/67 Pulse 68 Temp 36.3 ?C (97.3 ?F) No past medical history on file. No past surgical history on file. Current Outpatient Medications Medication Sig Dispense Refill DULoxetine (CYMBALTA) 30 mg capsule Take 30 mg by m (more content not included)... Normal [facility] No Panel Informationon 06-29 [facility] XR HAND 3V PA/LAT/OBL RTon 0 06-29-2023 XR HAND 3V PA/LAT/OBL RT * * *Final Report* * * DATE OF EXAM: Jun 29 2023 4:27PM AOX [id number] - XR HAND 3V PA/LAT/OBL RT / PROCEDURE REASON: Right hand pain * * * * Physician Interpretation * * * * HISTORY: Right hand pain TECHNOLOGIST PROVIDED HISTORY (if applicable): dog bit RT hand back in january 2023. doctor told her she has nondisplaced fracture of 3rd finger. TECHNIQUE: XR HAND 3V PA/LAT/OBL RT RESULT: 3 views of the RIGHT hand show no focal swelling fracture or dislocation. There is a notch-like deformity at the dorsal ulnar aspect of the head of the long finger metacarpal. This is fairly smoothly corticated. The adjacent joint space and articular cortices are preserved. There is suggestion of overlying soft tissue swelling on the lateral projection there may be a small adjacent ossicle. No other osseous or articular abnormality. IMPRESSION: DEFORMITY OF THE LONG FINGER METACARPAL HEAD. IT IS NONSPECIFIC WITH DIFFERENTIAL INCLUDING A FRACTURE DEFORMITY, AN EROSION, OR SEQUELA OF OSTEOMYELITIS. Director Hr Communications: [facility] Transcribe Date/Time: Jun 29 2023 4:42P Dictated by : MAXINE RUBI MD This examination was interpreted and the report reviewed and electronically signed by: MAXINE RUBI MD on Jun 29 2023 4:45PM EST [id number] Normal [facility] XR HAND 3+ VIEWS RIGHTon XR HAND 3+ VIEWS RIGHT EXAMINATION/TECHN IQUE: XR HAND 3+ VIEWS RIGHT HISTORY: Pain and bruising near the third MCP joint. COMPARISON: 09/29/2022. RESULT: No evidence for acute fracture. No dislocation. Soft tissues unremarkable. IMPRESSION: No acute osseous findings. ELECTRONICALLY SIGNED BY: Miguel Collier MD Normal Not Available Alanine aminotransferase [En zymatic activity/volume] in Serum or PlasmaOrdered By: Susie Johnson on 04-03-2023 ALT [Catalytic activity/Vol] 15 U/L Normal 7-52 [facility] Comment on above: Performed By: #### H EPATIC #### [address] Albumin [Mass/volume] in Ser um or Plasma by Bromocresol green (BCG) dye binding methoOrdered By: Susie Johnson on 04-03-2023 Albumin BCG dye [Mass/Vol] 4.2 g/dL 3.5-5.7 [facility] Alkaline phosphatase [Enzyma tic activity/volume] in Serum or PlasmaOrdered By: Susie Johnson on 04-03-2023 ALP [Catalytic activity/Vol] 104 U/L Normal 34-104 [facility] Comment on above: Result Comment: PERF ORMED BY: [place] [address] PATHOLOGIST PANEL GLUER NAINA NEWMAN M.D. Performed By: #### H EPATIC #### [address] Aspartate aminotransferase [ Enzymatic activity/volume] in Serum or PlasmaOrdered By: Susie Johnson on 04-03-2023 AST [Catalytic activity/Vol] 15 U/L Normal 13-39 [facility] Comment on above: Performed By: #### H EPATIC #### [address] Bilirubin.direct [Mass/volum e] in Serum or PlasmaOrdered By: Susie Johnson on 04-03-2023 Bilirubin.direct [Mass/Vol] 0.10 mg/dL 0.03-0.18 [facility] Bilirubin.total [Mass/volume ] in Serum or PlasmaOrdered By: Susie Johnson on 04-03-2023 Bilirubin [Mass/Vol] 0.8 mg/dL Normal 0.3-1.0 [facility] Comment on above: Performed By: #### H EPATIC #### [address] Hepatic Panelon 04-03-2023 Albumin [Mass/Vol] 4.2 g/dL Normal 3.5-5.7 [facility] Comment on above: Performed By: #### H EPATIC #### [address] Bilirubin,Indirect 0.7 mg/dL Normal [facility] Comment on above: Performed By: #### H EPATIC #### [address] Bilirubin.indirect [Mass/Vol] 0.10 mg/dL Normal 0.03-0.18 [facility] Comment on above: Performed By: #### H EPATIC #### [facility] [address] [place] [address] Protein [Mass/volume] in Ser um or PlasmaOrdered By: Susie Johnson on 04-03-2023 Protein [Mass/Vol] 6.8 g/dL Normal 6.4-8.9 [facility] Comment on above: Performed By: #### H EPATIC #### [facility] [address] Serum globulin measurement b y calculation (mass/volume)Ordered By: Susie Johnson on 04-03-2023 Globulin (S) [Mass/Vol] 2.6 g/dL [facility] Comment on above: Performed By: #### H EPATIC #### [facility] [address] [place] [address] Serum or plasma albumin/glob ulin mass ratioOrdered By: Susie Johnson on 04-03-2023 Albumin/Globulin [Mass ratio] 1.6 {ratio} [facility] Comment on above: Performed By: #### H EPATIC #### [address] Serum or plasma non-glucuron idated bilirubin measurement (mass/volume)Ordered By: Susie Johnson on 04-03-2023 Bilirubin.indirect [Mass/Vol] 0.7 mg/dL [facility] Follow-Upon 02-24-2023 Follow-Up [id number] Jimenez Shelton 1995 F Date Provider Department Center 02/24/2023 MARISA GARCIA MP ORTHO [facility]THO Family History Family history unknown: Yes Level of Service:17115 [place] OFFICE/OUTPATIENT ESTABLISHED SF MDM 10-19 MIN () Reason for Visit and Comments: Follow-up [071393] Normal [facility] Office Visiton 02-17-2023 Follow-up visit [id number] Jimenez Shelton 1995 F Date Provider Department Center 02/17/2023 JAISON ARAGON MP [facility] Family History Family history unknown: Yes Level of Service:69362 [place] OFFICE/OUTPATIENT [facility] 30-44 MINUTES Reason for Visit and Comments: Numbness [75] Normal [facility] XR Hand Complete Left*on XR Hand Complete Left* Findings: No fracture, dislocation, bone lesion. Joint spaces are maintained. IMPRESSION: Negative left hand. Report reported and signed by Rylan Signer on 09/30/2022 0745 Normal [facility] XR Hand Complete Right*on XR Hand Complete Right* Findings: No fracture, dislocation, bone lesion. Joint spaces maintained. IMPRESSION: Negative right hand. Report reported and signed by Rylan Signer on 09/30/2022 0744 Normal [facility] MICRO OTHER TESTSOrdered By: Kashif Bolaoñs on 07-20-2022 S. pyogenes Ag IA.rapid Ql (Throat) Negative (07/20/22 1:06 AM) Normal Negative [facility] CHEMISTRYOrdered By: SYSTEM SYSTEM on 07-19-2022 Anion gap [Moles/Vol] 21 mmol/L High 6 - 16 mEq/L [facility] Calcium [Mass/Vol] 9.4 mg/dL Normal 8.9 - 11. 1 mg/dL [facility] Chloride [Moles/Vol] 97 mmol/L Low 101 - 1 11 mmol/L [facility] CO2 [Moles/Vol] 21 mmol/L Normal 21 - 31 mmol/L [facility] Creatinine [Mass/Vol] 0.9 mg/dL Normal 0.5 - 1.3 mg/dL [facility] GFR/1.73 sq M.predicted among blacks MDRD (S/P/Bld) [Vol rate/Area] mL/min/1.73 m2 Normal >=59mL/min /1.73 m2 [facility] Chem S GFR/1.73 sq M.predicted among non-blacks MDRD (S/P/Bld) [Vol rate/Area] mL/min/1.73 m2 Normal >=59mL/min /1.73 m2 [facility] Chem S Glucose [Mass/Vol] 89 mg/dL Normal 55 - 199 mg/dL [facility] Remisol Potassium [Moles/Vol] 3.7 mmol/L Normal 3.5 - 5.3 mmol/L [facility] Sodium [Moles/Vol] 135 mmol/L Normal 135 - 145 mmol/L [facility] Urea nitrogen [Mass/Vol] 20 mg/dL Normal 5 - 21 mg/dL [facility] Urea nitrogen/Creatinine [Mass ratio] 22 mg/mg High 10 - 20 [facility] HEMATOLOGYOrdered By: [employer] SYSTEM on 07-19-2022 Basophils/100 WBC (Bld) 1.3 % Normal 0.0 - 2.0 % [facility]eAutoSS Basophils/Leukocytes Auto (Bld) [Pure # fraction] 0.2 E9/L Normal 0.0 - 0.2 E9/L [facility] Eosinophils/100 WBC (Bld) 0.4 % Normal 0.0 - 8.0 % [facility] Eosinophils/Leukocytes Auto (Bld) [Pure # fraction] 0.0 E9/L Normal 0.0 - 0.5 E9/L [facility] Lymphocytes/100 WBC (Bld) 23.6 % Normal 14.0 - 50.0 % [facility] Lymphocytes/Leukocytes Auto (Bld) [Pure # fraction] 2.7 E9/L Normal 1.0 - 4.0 E9/L [facility] Monocytes/100 WBC (Bld) 8.9 % Normal 4.0 - 14.0 % [facility] Monocytes/Leukocytes Auto (Bld) [Pure # fraction] 1.0 E9/L Normal 0.2 - 1.0 E9/L [facility] Neutrophils/100 WBC (Bld) 65.8 % Normal 36.0 - 75.0 % [facility] Neutrophils/Leukocytes Auto (Bld) [Pure # fraction] 7.6 E9/L High 2.0 - 7.5 E9/L [facility] HEMATOLOGYOrdered By: Kashif Bolaños on 07-19-2022 Erythrocyte distribution width (RBC) [Ratio] 12.5 % Normal 10.9 - 14.2 % [facility] Hematocrit (Bld) [Volume fraction] 45.9 % Normal 34.0 - 46.0 % [facility] Hemoglobin (Bld) [Mass/Vol] 16.0 g/dL Normal 12.0 - 16.0 gm/dL [facility] MCH (RBC) [Entitic mass] 32.2 pg Normal 27.0 - 34.0 pg [facility] MCHC (RBC) [Mass/Vol] 35.0 g/dL Normal 31.4 - 36.0 gm/dL [facility] MCV (RBC) [Entitic vol] 92.0 fL Normal 80.0 - 100.0 fL [facility] Platelet mean volume (Bld) [Entitic vol] 7.7 fL Normal 6.4 - 10.8 fL [facility] Platelets (Bld) [#/Vol] 319.0 E9/L Normal 150.0 - 500.0 E9/L [facility] RBC (Bld) [#/Vol] 5.0 E12/L Normal 4.3 - 5.9 E12/L [facility] WBC corrected for nucl RBC Auto (Bld) [#/Vol] 11.5 E9/L High 4.0 - 11.0 E9/L [facility] SEROLOGYOrdered By: Kashif ramirezolaangel on 07-19-2022 Heterophile Ab LA Ql (S) Negative (07/19/22 10:10 PM) Normal Negative [facility] Sero CHEMISTRYOrdered By: SYSTEM SYSTEM on 07-08-2022 Anion gap [Moles/Vol] 12 mmol/L Normal 6 - 16 mEq/L [facility] Calcium [Mass/Vol] 8.6 mg/dL Low 8.9 - 11. 1 mg/dL [facility] Chloride [Moles/Vol] 103 mmol/L Normal 101 - 1 11 mmol/L [facility] CO2 [Moles/Vol] 27 mmol/L Normal 21 - 31 mmol/L [facility] Creatinine [Mass/Vol] 0.7 mg/dL Normal 0.5 - 1.3 mg/dL [facility] GFR/1.73 sq M.predicted among blacks MDRD (S/P/Bld) [Vol rate/Area] mL/min/1.73 m2 Normal >=59mL/min /1.73 m2 [facility] Chem S GFR/1.73 sq M.predicted among non-blacks MDRD (S/P/Bld) [Vol rate/Area] mL/min/1.73 m2 Normal >=59mL/min /1.73 m2 [facility] Chem S Glucose [Mass/Vol] 94 mg/dL Normal 55 - 199 mg/dL [facility] Potassium [Moles/Vol] 3.4 mmol/L Low 3.5 - 5.3 mmol/L [facility] Remisol Sodium [Moles/Vol] 139 mmol/L Normal 135 - 145 mmol/L [facility] Remisol Urea nitrogen [Mass/Vol] 14 mg/dL Normal 5 - 21 mg/dL [facility] Remisol Urea nitrogen/Creatinine [Mass ratio] 20 mg/mg Normal 10 - 20 [facility] Remisol Quick Strepon 06-23-2022 S. pyogenes Org specific cx Ql (Throat) Positive [facility] [employer] Other Quick Strep [facility] [employer] Other Quick Strepon 04-16-2022 S. pyogenes Org specific cx Ql (Throat) Positive [employer] Other Quick Strep [facility] [place] Other CBC AUTO DIFFon 03-22-2022 BASO # 0.1 103/ul Normal 0.0-0.1 [facility] Comment on above: Performed By: #### C BC #### [facility] [address] [place] [address] Dr. Adalberto Dimas Basophils/100 WBC (Bld) 0.2 % Normal 0.2-2.0 [facility] Comment on above: Performed By: #### C BC #### [facility] [address] [place] [address] Dr. Adalberto Dimas EO # 0.0 103/ul Normal 0.0-0.7 [facility] Comment on above: Performed By: #### C BC #### [facility] [address] [place] [address] Dr. Adalberto Dimas Eosinophils/100 WBC (Bld) 0.2 % Critically low 0.9-7.0 [facility] Comment on above: Performed By: #### C BC #### [facility] [address] [place] [address] Dr. Adalberto Dimas Erythrocyte distribution width (RBC) [Ratio] 12.0 % Normal 11.0-15.0 [facility] Comment on above: Performed By: #### C BC #### [facility] [address] [place] [address] Dr. Adalberto Dimas Hematocrit (Bld) [Volume fraction] 39.5 % Normal 36.0-48.0 [facility] Comment on above: Performed By: #### C BC #### [facility] [address] [place] [address] Dr. Adalberto Dimas Hemoglobin (Bld) [Mass/Vol] 13.9 g/dL Normal 12.0-16.0 [facility] Comment on above: Performed By: #### C BC #### [facility] [address] [place] [address] Dr. Adalberto Dimas IG # 0.08 10e3/ul Critically high 0.00-0.03 [facility] Comment on above: Performed By: #### C BC #### [facility] [address] [place] [address] Dr. Adalberto Dimas IG % 0.4 % Normal 0.0-0.5 [facility] Comment on above: Performed By: #### C BC #### [facility] [address] [place] [address] Dr. Adalberto Dimas LYMPH # 1.7 103/ul Normal 1.2-3.8 [facility] Comment on above: Performed By: #### C BC #### [facility] [address] [place] [address] Dr. Adalberto Dimas Lymphocytes/100 WBC (Bld) 7.6 % Critically low 20.5-60.0 [facility] Comment on above: Performed By: #### C BC #### [facility] [address] [place] [address] Dr. Adalberto Dimas MANUAL DIFF REQ NO Normal [facility] Comment on above: Performed By: #### C BC #### [facility] [address] [place] [address] Dr. Adalberto Dimas MCH (RBC) [Entitic mass] 32.5 pg Normal 26.7-34.0 [facility] Comment on above: Performed By: #### C BC #### [facility] [address] [address] [address] Adalberto Dimas MCHC (RBC) [Mass/Vol] 35.2 g/dL Normal 29.9-35.2 [facility] Comment on above: Performed By: #### C BC #### [facility] [address] [place] [address] Dr. Adalberto Dimas MCV (RBC) [Entitic vol] 92.3 fL Normal 81.0-99.0 [facility] Comment on above: Performed By: #### C BC #### [facility] [address] [place] [address] Dr. Adalberto Dimas MONO # 1.4 103/ul Critically high 0.3-0.8 [facility] Comment on above: Performed By: #### C BC #### [facility] [address] [place] [address] Dr. Adalberto Dimas Monocytes/100 WBC (Bld) 6.3 % Normal 1.7-12.0 [facility] Comment on above: Performed By: #### C BC #### [facility] [address] [place] [address] Dr. Adalberto Dimas NEUT # 18.8 103/ul Critically high 1.4-6.5 [facility] Comment on above: Performed By: #### C BC #### [facility] [address] [place] [address] Dr. Adalberto Dimas Neutrophils/100 WBC (Bld) 85.3 % Critically high 43.0-75.0 [facility] Comment on above: Performed By: #### C BC #### [facility] [address] [place] [address] Dr. Adalberto Dimas Platelet mean volume (Bld) [Entitic vol] 9.1 fL Critically low 9.5-13.5 [facility] Comment on above: Performed By: #### C BC #### [facility] [address] [place] [address] Dr. Adalberto Dimas PLT 267 103/ul Normal 150-450 [facility] Comment on above: Performed By: #### C BC #### [facility] [address] [address] [address] Adalberto Dimas RBC 4.28 106/ul Normal 4.20-5.40 [facility] Comment on above: Performed By: #### C BC #### [facility] [address] [address] [address] Adalberto Dimas WBC 22.0 103/ul Critically high 4.0-11.0 [facility] Comment on above: Performed By: #### C BC #### [facility] [address] [address] [address] Adalberto Dimas PROF 14(COMP METB)on 022 Albumin [Mass/Vol] 3.8 g/dL Normal 3.4-5.0 [facility] Comment on above: Performed By: #### C MP #### [facility] [address] [place] [address] Dr. Adalberto Dimas Albumin/Globulin [Mass ratio] 1.0 {ratio} Normal [facility] Comment on above: Performed By: #### C MP #### [facility] [address] [place] [address] Dr. Adalberto Dimas ALP [Catalytic activity/Vol] 97 U/L Normal 46-116 [facility] Comment on above: Performed By: #### C MP #### [facility] [address] [place] [address] Dr. Adalberto Dimas ALT [Catalytic activity/Vol] 17 U/L Normal 14-59 [facility] Comment on above: Performed By: #### C MP #### [facility] [address] [address] [address] Adalberto Dimas Anion gap [Moles/Vol] 12.5 mmol/L Normal [facility] Comment on above: Performed By: #### C MP #### [facility] [address] [place] [address] Dr. Adalberto Dimas AST [Catalytic activity/Vol] 12 U/L Critically low 15-37 [facility] Comment on above: Performed By: #### C MP #### [facility] [address] [address] [address] Adalberto Dimas Bilirubin [Mass/Vol] 2.9 mg/dL Critically high 0.2-1.0 [facility] Comment on above: Performed By: #### C MP #### [facility] [address] [address] [address] Adalberto Dimas Calcium [Mass/Vol] 8.7 mg/dL Normal 8.5-10.1 [facility] Comment on above: Performed By: #### C MP #### [facility] [address] [address] [address] Adalberto Dimsa Chloride [Moles/Vol] 101 mmol/L Normal 98-107 [facility] Comment on above: Performed By: #### C MP #### [facility] [address] [address] [address] Adalberto Dimas CO2 [Moles/Vol] 27.0 mmol/L Normal 21.0-32.0 [facility] Comment on above: Performed By: #### C MP #### [facility] [address] [address] [address] Adalberto Dimas Creatinine [Mass/Vol] 0.87 mg/dL Normal 0.55-1.02 [facility] Comment on above: Performed By: #### C MP #### [facility] [address] [address] [address] Adalberto Dimas EGFR-AF BAHAMIAN >60 Normal >=60 [facility] Comment on above: Performed By: #### C MP #### [facility] [address] [address] [address] Adalberto Dimas EGFR-NON AF BAHAMIAN >60 Normal >=60 [facility] Comment on above: Performed By: #### C MP #### [facility] [address] [address] [address] Adalberto Dimas Globulin (S) [Mass/Vol] 3.9 g/dL Normal [facility] Comment on above: Performed By: #### C MP #### [facility] [address] [address] [address] Adalberto Dimas Glucose [Mass/Vol] 105 mg/dL Normal 74-106 [facility] Comment on above: Performed By: #### C MP #### [facility] [address] [address] [address] Adalberto Dimas Potassium [Moles/Vol] 3.5 mmol/L Normal 3.5-5.1 [facility] Comment on above: Performed By: #### C MP #### [facility] [address] [address] [address] Adalberto Dimas Protein [Mass/Vol] 7.7 g/dL Normal 6.4-8.2 [facility] Comment on above: Performed By: #### C MP #### [facility] [address] [address] [address] Adalberto Dimas Sodium [Moles/Vol] 137 mmol/L Normal 136-145 [facility] Comment on above: Performed By: #### C MP #### [facility] [address] [address] [address] Adalberto Dimas Urea nitrogen [Mass/Vol] 15.0 mg/dL Normal 7.0-18.0 [facility] Comment on above: Performed By: #### C MP #### [facility] [address] [address] [address] Adalberto Dimas Urea nitrogen/Creatinine [Mass ratio] 17.2 mg/mg Normal [facility] Comment on above: Performed By: #### C MP #### [facility] [address] [address] [address] Adalberto Dimas XR NECK SOFT TISSUEon 2021 XR NECK SOFT TISSUE EXAM: XR NECK SOFT T ISSUE HISTORY: Pain COMPARISON: None. TECHNIQUE: 2 views of the soft tissues of the neck were obtained. FINDINGS: The epiglottis appears within normal limits. The prevertebral soft tissues are unremarkable. The airway is patent. The imaged lung apices are clear. No acute osseous abnormality is seen. The palatine tonsils are enlarged. IMPRESSION: 1. Enlargement of the palatine tonsils. Electronically authenticated by: Carson SANFORD Date: 2022-03-22 01:19 Normal [facility] Quick Strepon 03-21-2022 S. pyogenes Org specific cx Ql (Throat) Positive [facility] [employer] Other Quick Strep [facility] [employer] Other CBC AUTO DIFFon 11-17-2021 BASO # 0.0 103/ul Normal 0.0-0.1 [facility] Comment on above: Performed By: #### C BC #### [facility] [address] [address] [address] Adalberto Dimas Basophils/100 WBC (Bld) 0.3 % Normal 0.2-2.0 [facility] Comment on above: Performed By: #### C BC #### [facility] [address] [place] [address] Dr. Adalberto Dimas EO # 0.1 103/ul Normal 0.0-0.7 [facility] Comment on above: Performed By: #### C BC #### [facility] [address] [address] [address] Adalberto Dimas Eosinophils/100 WBC (Bld) 0.4 % Critically low 0.9-7.0 [facility] Comment on above: Performed By: #### C BC #### [facility] [address] [place] [address] Dr. Adalberto Dimas Erythrocyte distribution width (RBC) [Ratio] 12.2 % Normal 11.0-15.0 [facility] Comment on above: Performed By: #### C BC #### [facility] [address] [place] [address] Dr. Adalberto Dimas Hematocrit (Bld) [Volume fraction] 41.7 % Normal 36.0-48.0 [facility] Comment on above: Performed By: #### C BC #### [facility] [address] [place] [address] Dr. Adalberto Dimas Hemoglobin (Bld) [Mass/Vol] 14.1 g/dL Normal 12.0-16.0 [facility] Comment on above: Performed By: #### C BC #### [facility] [address] [place] [address] Dr. Adalberto Dimas IG # 0.02 10e3/ul Normal 0.00-0.03 [facility] Comment on above: Performed By: #### C BC #### [facility] [address] [place] [address] Dr. Adalberto Dimas IG % 0.2 % Normal 0.0-0.5 [facility] Comment on above: Performed By: #### C BC #### [facility] [address] [place] [address] Dr. Adalberto Dimas LYMPH # 1.8 103/ul Normal 1.2-3.8 [facility] Comment on above: Performed By: #### C BC #### [facility] [address] [place] [address] Dr. Adalberto Dimas Lymphocytes/100 WBC (Bld) 15.3 % Critically low 20.5-60.0 [facility] Comment on above: Performed By: #### C BC #### [facility] [address] [place] [address] Dr. Adalberto Dimas MANUAL DIFF REQ NO Normal [facility] Comment on above: Performed By: #### C BC #### [facility] [address] [place] [address] Dr. Adalberto Dimas MCH (RBC) [Entitic mass] 31.8 pg Normal 26.7-34.0 [facility] Comment on above: Performed By: #### C BC #### [facility] [address] [place] [address] Dr. Adalberto Dimas MCHC (RBC) [Mass/Vol] 33.8 g/dL Normal 29.9-35.2 [facility] Comment on above: Performed By: #### C BC #### [facility] [address] [place] [address] Dr. Adalberto Dimas MCV (RBC) [Entitic vol] 93.9 fL Normal 81.0-99.0 [facility] Comment on above: Performed By: #### C BC #### [facility] [address] [place] [address] Dr. Adalberto Dimas MONO # 1.1 103/ul Critically high 0.3-0.8 [facility] Comment on above: Performed By: #### C BC #### [facility] [address] [place] [address] Dr. Adalberto Dimas Monocytes/100 WBC (Bld) 9.0 % Normal 1.7-12.0 [facility] Comment on above: Performed By: #### C BC #### [facility] [address] [place] [address] Dr. Adalberto Dimas NEUT # 8.7 103/ul Critically high 1.4-6.5 [facility] Comment on above: Performed By: #### C BC #### [facility] [address] [place] [address] Dr. Adalberto Dimas Neutrophils/100 WBC (Bld) 74.8 % Normal 43.0-75.0 [facility] Comment on above: Performed By: #### C BC #### [facility] [address] [place] [address] Dr. Adalberto Dimas Platelet mean volume (Bld) [Entitic vol] 9.3 fL Critically low 9.5-13.5 [facility] Comment on above: Performed By: #### C BC #### [facility] [address] [place] [address] Dr. Adalberto Dimas PLT 262 103/ul Normal 150-450 [facility] Comment on above: Performed By: #### C BC #### [facility] [address] [place] [address] Dr. Adalberto Dimas RBC 4.44 106/ul Normal 4.20-5.40 [facility] Comment on above: Performed By: #### C BC #### [facility] [address] [place], [place] [id number] Dr. Adalberto Dimas WBC 11.6 103/ul Critically high 4.0-11.0 [facility] Comment on above: Performed By: #### C BC #### [facility] [address] [place] [address] Dr. Adalberto Dimas ER URINE PROFILEon 2 Bilirubin Ql (U) Negative Normal NEGATIVE [facility] Comment on above: Performed By: #### E FERNANDOR, UMICRO #### [facility] [address] [address] [address] Adalberto Dimas Clarity (U) CLEAR Normal CLEAR [facility] Comment on above: Performed By: #### E MARGOT, UMICRO #### [facility] [address] [address] [address] Adalberto Dimas Color (U) LT. YELLOW Normal YELLOW [facility] Comment on above: Performed By: #### E MARGOT, UMICRO #### [facility] [address] [address] [address] Adalberto Dimas ERUAHCrissy A micrscopic examina tion will be performed if indicated. Normal [facility] Comment on above: Performed By: #### Gaby FROST UMICRO #### [facility] [address] [place] [address] Dr. Adalberto Dimas Glucose Ql (U) Negative Normal NEGATIVE [facility] Comment on above: Performed By: #### Gaby FROST UMICRO #### [facility] [address] [place] [address] Dr. Adalberto Dimas Hemoglobin Ql (U) Negative Normal NEGATIVE [facility] Comment on above: Performed By: #### Gaby FROST, UMICRO #### [facility] [address] [place] [address] Dr. Adalberto Dimas Ketones Ql (U) Negative Normal NEGATIVE [facility] Comment on above: Performed By: #### Gaby FROST UMICRO #### [facility] [address] [address] [address] Adalberto Dimas LEUKOCYTES TRACE Abnormal NEGATIVE [facility] Comment on above: Performed By: #### Gaby FROST UMICRO #### [facility] [address] [address] [address] Adalberto Dimas Nitrite Ql (U) Negative Normal NEGATIVE [facility] Comment on above: Performed By: #### Gaby FROST UMICRO #### [facility] [address] [place] [address] Dr. Adalberto Dimas pH (U) 7.0 [pH] Normal 5-9 [facility] Comment on above: Performed By: #### LUKE EDWARDS #### [facility] [address] [place] [address] Dr. Adalberto Dimas SPEC GRAVITY 1.010 Normal 1.005-<=1. 025 [facility] Comment on above: Performed By: #### DARYL EDWARDSRO #### [facility] [address] [place] [address] Dr. Adalberto Dimas UA PROTEIN Negative Normal NEGATIVE/ TRACE [facility] Comment on above: Performed By: #### LUKE EDWARDS #### [facility] [address] [place] [address] Dr. Adalberto Dimas UR MICRO IND INDICATED Normal [facility] Comment on above: Performed By: #### LUKE EDWARDS #### [facility] [address] [place] [address] Dr. Adalberto Dimas Urobilinogen Qn (U) 0.2 {James'U}/dL Normal 0.2 - 1. 0 [facility] Comment on above: Performed By: #### LUKE EDWARDS #### [facility] [address] [place] [address] Dr. Adalberto Dimas PREG HCG QUALon 11-17-2021 , QUAL Negative Normal NEGATIVE [facility] Comment on above: Performed By: #### P REG #### [facility] [address] [place] [address] Dr. Adalberto Dimas PROF CHEM 8 (BAS METB)on Anion gap [Moles/Vol] 10.0 mmol/L Normal [facility] Comment on above: Performed By: #### B MP #### [facility] [address] [place] [address] Dr. Adalberto Dimas Calcium [Mass/Vol] 8.7 mg/dL Normal 8.5-10.1 [facility] Comment on above: Performed By: #### B MP #### [facility] [address] [address] [address] Adalberto Dimas Chloride [Moles/Vol] 104 mmol/L Normal 98-107 [facility] Comment on above: Performed By: #### B MP #### [facility] [address] [address] [address] Adalberto Dimas CO2 [Moles/Vol] 27.8 mmol/L Normal 21.0-32.0 [facility] Comment on above: Performed By: #### B MP #### [facility] [address] [address] [address] Adalberto Dimas Creatinine [Mass/Vol] 0.79 mg/dL Normal 0.55-1.02 [facility] Comment on above: Performed By: #### B MP #### [facility] [address] [place] [address] Dr. Adalberto Dimas EGFR-AF BAHAMIAN >60 Normal >=60 [facility] Comment on above: Performed By: #### B MP #### [facility] [address] [address] [address] Adalberto Dimas EGFR-NON AF BAHAMIAN >60 Normal >=60 [facility] Comment on above: Performed By: #### B MP #### [facility] [address] [address] [address] Adalberto Dimas Glucose [Mass/Vol] 96 mg/dL Normal 74-106 [facility] Comment on above: Performed By: #### B MP #### [facility] [address] [place] [address] Dr. Adalberto Dimas Potassium [Moles/Vol] 3.8 mmol/L Normal 3.5-5.1 [facility] Comment on above: Performed By: #### B MP #### [facility] [address] [address] [address] Adalberto Dimas Sodium [Moles/Vol] 138 mmol/L Normal 136-145 [facility] Comment on above: Performed By: #### B MP #### [facility] [address] [address] [address] Adalberto Dimas Urea nitrogen [Mass/Vol] 12.0 mg/dL Normal 7.0-18.0 [facility] Comment on above: Performed By: #### B MP #### [facility] [address] [place] [address] Dr. Adalberto Dimas Urea nitrogen/Creatinine [Mass ratio] 15.2 mg/mg Normal [facility] Comment on above: Performed By: #### B MP #### [facility] [address] [place] [address] Dr. Adalberto Dimas URINE MICROSCOPIC ONLYon BACTERIA TRACE Abnormal NONE SEEN [facility] Comment on above: Performed By: #### E RUR, UMICRO #### [facility] [address] [place] [address] Dr. Adalberto Dimas Bacteria identified Cx Nom (U) NOT INDICATED Normal [facility] Comment on above: Performed By: #### E RUR, UMICRO #### [facility] [address] [place] [address] Dr. Adalberto Dimas CAST NONE SEEN Normal NONE SEEN [facility] Comment on above: Performed By: #### E RUR, UMICRO #### [facility] [address] [place] [address] Dr. Adalberto Dimas Crystals LM Nom (Urine sed) NONE SEEN Normal NONE SEEN [facility] Comment on above: Performed By: #### E RUR, UMICRO #### [facility] [address] [place] [address] Dr. Adalberto Dimas Epithelial cells LM Ql (Urine sed) MODERATE Abnormal NONE SEEN /RARE [facility] Comment on above: Performed By: #### E RUR, UMICRO #### [facility] [address] [place] [address] Dr. Adalberto Dimas MUCOUS NONE SEEN Normal NONE SEEN [facility] Comment on above: Performed By: #### E RUR, UMICRO #### [facility] [address] [place] [address] Dr. Adalberto Dimas RBC NONE SEEN Abnormal 0-2 [facility] Comment on above: Performed By: #### E RUR, UMICRO #### [facility] [address], [place] [address] Dr. Adalberto Dimas WBC 0-2 Abnormal NONE SEEN [facility] Comment on above: Performed By: #### LUKE EDWARDS #### [facility] [address], [place] [address] Dr. Adalberto Dimas Complete Blood Count with Au to Diffon 10-02-2021 Basophils (Bld) [#/Vol] 0.04 10*3/uL Normal 0.00-0.20 [facility] Specialist Comment on above: Performed By: #### F ERR, FE Prof, CBCAD, RETIC #### [facility] [address] [place], [place] [id number] Basophils/100 WBC (Bld) 0.5 % Normal [facility] Specialist Comment on above: Performed By: #### F ERR, FE Prof, CBCAD, RETIC #### [facility] [address] [place], [place] [id number] Eosinophils (Bld) [#/Vol] 0.04 10*3/uL Normal 0.02-0.50 [facility] Specialist Comment on above: Performed By: #### F ERR, FE Prof, CBCAD, RETIC #### [facility] [address] [place], [place] [id number] Eosinophils/100 WBC (Bld) 0.5 % Normal [facility] Specialist Comment on above: Performed By: #### F ERR, FE Prof, CBCAD, RETIC #### [facility] [address] [facility] [place] [id number] Erythrocyte distribution width (RBC) [Ratio] 12.5 % Normal 11.0-15.0 [facility] Specialist Comment on above: Performed By: #### F ERR, FE Prof, CBCAD, RETIC #### [facility] [address] [id number] Hematocrit (Bld) [Volume fraction] 41.0 % Normal 35.0-47.0 [facility] Specialist Comment on above: Performed By: #### F ERR, FE Prof, CBCAD, RETIC #### [facility] [address] [place], [place] [id number] Hemoglobin (Bld) [Mass/Vol] 13.7 g/dL Normal 11.6-15.5 [facility] Comment on above: Performed By: #### F ERR, FE Prof, CBCAD, RETIC #### [facility] [address] [place], [place] [id number] Lymphocytes (Bld) [#/Vol] 2.1 10*3/uL Normal 0.9-3.9 [facility] Specialist Comment on above: Performed By: #### F ERR, FE Prof, CBCAD, RETIC #### [facility] [address] [place], [place] [id number] Lymphocytes/100 WBC (Bld) 24.2 % Normal [facility] Comment on above: Performed By: #### F ERR, FE Prof, CBCAD, RETIC #### [facility] [address] [place], [place] [id number] MCH (RBC) [Entitic mass] 31.6 pg Normal 27.0-33.0 [facility] Specialist Comment on above: Performed By: #### F ERR FE Prof, CBCAD, RETIC #### [facility] [address] [place], [place] [id number] MCHC (RBC) [Mass/Vol] 33.4 g/dL Normal 32.0-36.0 [facility] Comment on above: Performed By: #### F ERR, FE Prof, CBCAD, RETIC #### [facility] [address] [place], [place] [id number] MCV (RBC) [Entitic vol] 95 fL Normal 80-100 [facility] Comment on above: Performed By: #### F ERR, FE Prof, CBCAD, RETIC #### [facility] [address] [place], [place] [id number] Monocytes (Bld) [#/Vol] 0.7 10*3/uL Normal 0.2-0.9 [facility] Comment on above: Performed By: #### F ERR, FE Prof, CBCAD, RETIC #### [facility] [address] [place], [place] [id number] Monocytes/100 WBC (Bld) 7.9 % Normal [facility] Comment on above: Performed By: #### F ERR, FE Prof, CBCAD, RETIC #### [facility] [address] [place], [place] [id number] Neutrophils (Bld) [#/Vol] 5.7 10*3/uL Normal 1.5-7.8 [facility] Comment on above: Performed By: #### F ERR, FE Prof, CBCAD, RETIC #### [facility] [address] [place], [place] [id number] Neutrophils/100 WBC (Bld) 66.5 % Normal [facility] Comment on above: Performed By: #### F ERR, FE Prof, CBCAD, RETIC #### [facility] [address] [place], [place] [id number] Platelet mean volume (Bld) [Entitic vol] 9.80 fL Normal 7.50-12.50 [facility] Comment on above: Performed By: #### F ERR, FE Prof, CBCAD, RETIC #### [facility] [address] [place], [place] [id number] Platelets (Bld) [#/Vol] 253 10*3/uL Normal 140-400 [facility] Comment on above: Performed By: #### F ERR, FE Prof, CBCAD, RETIC #### [facility] [address] [place], [place] [id number] RBC (Bld) [#/Vol] 4.34 10*6/uL Normal 3.90-5.20 [facility] Comment on above: Performed By: #### F ERR, FE Prof, CBCAD, RETIC #### [facility] [address] [place], [place] [id number] RDW-SD 43.6 fL Normal 37.0-50.0 [facility] Comment on above: Performed By: #### F ERR, FE Prof, CBCAD, RETIC #### [facility] [address] [place], [place] [id number] WBC (Bld) [#/Vol] 8.6 10*3/uL Normal 3.8-11.0 [facility] Comment on above: Performed By: #### F ERR, FE Prof, CBCAD, RETIC #### [facility] [address] [place], [place] [id number] Ferritinon 10-02-2021 FERR 77.1 ng/mL Normal 15.0-150.0 [facility] Specialist Comment on above: Performed By: #### F ERR, FE Prof, CBCAD, RETIC #### [facility] [address] [place], [place] [id number] Iron Profileon 10-02-2021 %FESAT 22 % Normal 11-50 [facility] Specialist Comment on above: Performed By: #### F ERR, FE Prof, CBCAD, RETIC #### [facility] [address] [place], [place] [id number] FE 67 ug/dL Normal 40-190 [facility] Specialist Comment on above: Result Comment: Refe rence range change 04/10/2017. Prior reference range F 37-145 ug/dL, M 59-158 ug/dL. Performed By: #### F ERR, FE Prof, CBCAD, RETIC #### [facility] [address] [place], [place] [id number] TIBC 300 ug/dL Normal 250-450 [facility] Specialist Comment on above: Performed By: #### F ERR, FE Prof, CBCAD, RETIC #### [facility] [address] [place], [place] [id number] UIBC 233 ug/dL Normal 112-347 [facility] Comment on above: Performed By: #### F ERR, FE Prof, CBCAD, RETIC #### [facility] [address] [place], [place] [id number] Q - PROTHROMBIN TIME WITH IN Tyson 10-02-2021 INR Coag (PPP) [Relative time] 1.0 {INR} Normal [facility] Specialist Comment on above: Order Comment: [facility] performed at: [facility], [employer] [facility], [address] [facility], [address] [place] [address], [place], [address], Rn Staff: Blade Vazquez MD [facility] Date/Time: [facility] Results Received Date/Time: [facility] Reported Date/Time: Result Comment: Refe rence Range 0.9-1.1 Moderate-intensity Warfarin Therapy 2.0-3.0 Higher-intensity Warfarin Therapy 3.0-4.0 Performed By: #### 2 6F, 763X, 4919X #### [facility] [address] [place] [address] PT Coag (PPP) [Time] 9.7 s Normal 9.0-11.5 [facility] Comment on above: Order Comment: [facility] performed at: Q, [employer] [facility], [address] [facility], [address] [place] [address], [address] [place] [address], Rn Staff: Blade Vazquez MD [facility] Date/Time: [facility] Results Received Date/Time: [facility] Reported Date/Time: Result Comment: For additional information, please refer to [email or web address]/LEK883 (This link is being provided for informational/ educational purposes only.) Performed By: #### 2 6F, 763X, 4919X #### [facility] [address] [place] [address] Q - PTTon 10-02-2021 PARTIAL THROMBOPLASTIN TIME, ACTIVATED 30 sec Normal 23-32 [facility] Specialist Comment on above: Order Comment: [facility] performed at: [employer], [employer] [facility], [address] [facility], [address] [place] [address], [address] [place] [address], Rn Staff: Blade Vazquez MD [facility] Date/Time: [facility] Results Received Date/Time: [facility] Reported Date/Time: Result Comment: This test has not been validated for monitoring unfractionated heparin therapy. For testing that is validated for this type of therapy, please refer to the Heparin Anti-Xa assay (test code 11314). For additional information, please refer to http://Neverfail.Court[employer]/faq/LRQ658 (This link is being provided for informational/educational purposes only.) Performed By: #### 2 6F, 763X, 4919X #### [facility] [address] [place] [address] Q - VON WILLEBRAND FACTOR AN TIGENon 10-02-2021 VON WILLEBRAND FACTOR ANTIGEN 74 % Normal 50-217 [employer] [place] [employer] Comment on above: Order Comment: [facility] performed at: [facility], [employer] [facility], [address] , [place], [place], , Rn Staff: Keven Crowley M.D.,PhD [facility] Date/Time: [facility] Results Received Date/Time: [facility] Reported Date/Time: Performed By: #### 2 6F, 763X, 4919X #### [facility] [address] [place] [address] RETICon 10-02-2021 IRF 8.90 % High 0.01-0.16 [facility] Specialist Comment on above: Performed By: #### F ERR, FE Prof, CBCAD, RETIC #### [facility] [address] [place], [place] [id number] RET# 0.07 M/uL Normal 0.02-0.10 [facility] Specialist Comment on above: Performed By: #### F ERR, FE Prof, CBCAD, RETIC #### [facility] [address] [place], [place] [id number] Ret% 1.51 % Normal 0.40-1.80 [facility] Comment on above: Performed By: #### F ERR, FE Prof, CBCAD, RETIC #### [facility] [address] [place], [place] [id number] RET-HE 36.90 pg Normal 31.90-37.1 0 [facility] Comment on above: Performed By: #### F ERR, FE Prof, CBCAD, RETIC #### [facility] [address] [place], [place] [id number] Vitamin B12/Folateon 022 Cobalamin (Vitamin B12) [Mass/Vol] 408 pg/mL Normal 211-946 [facility] Comment on above: Performed By: #### B 12/Fol #### [facility] [address] [place], [place] [id number] FOL 8.6 ng/mL Normal >4.7 [facility] Comment on above: Result Comment: Refe rence range change 04/10/2017. Prior reference range F 4.8-37.3 ng/mL, M 4.5-32.2 ng/mL. Performed By: #### B 12/Fol #### [facility] [address] [place] [id number] XR knee LT 4V*on 07-20-2021 XR knee LT 4V* [facility] Other XR knee LT 4V* [facility] Other XR knee LT 4V* [address] [place] [address] [facility] Other XR knee LT 4V* [place] [address] No rt [facility] Other XR knee LT 4V* XRay Report [employer] Other XR knee LT 4V* Signed [employer] Other XR knee LT 4V* Patient: Erma Almazan MR#: [id number] [facility] Other XR knee LT 4V* 184 [employer] Other XR knee LT 4V* : 1995 Acct:[id number] [employer] Other XR knee LT 4V* Age/Sex: 26 / F ADM Date: 07/20/21 [employer] Other XR knee LT 4V* Loc: [id number] Room: pe: REG CLI [employer] Other XR knee LT 4V* Attending Dr: Asim Palma WELDER TECH-C [employer] Other XR knee LT 4V* Ordering Provider: Tony Palma FUSE SPOOLER-C [employer] Other XR knee LT 4V* Date of Service: 07/20/21 [employer] Other XR knee LT 4V* XR/XR knee LT 4V*: Acute pain of left knee [employer] Other XR knee LT 4V* Copies to: Asim jones [place] [employer] Other XR knee LT 4V* Left knee 07/20/2021. [employer] Other XR knee LT 4V* CLINICAL DATA: Left knee pain. No known injury. [employer] Other XR knee LT 4V* FINDINGS: 4 views of the left knee were obtained. [employer] Other XR knee LT 4V* No acute fracture or dislocation is identified. No early degenerative or other arthritic changes [employer] Other XR knee LT 4V* are seen. No bony er osion or destruction is visualized. There is no suprapatellar effusion. [employer] Other XR knee LT 4V* X R/XR knee LT 4V* [employer] Other XR knee LT 4V* IMPRESSION: No acute bony abnormality or effusion. [employer] Other XR knee LT 4V* Impression dictated by: Quinn Weston Jr., M.D.07/20/2021 1:51 PM [employer] Other XR knee LT 4V* Dictation Location: [place] [address] [employer] Other XR knee LT 4V* Transcribed By: CATRINA 07/20/21 [facility] [employer] Other XR knee LT 4V* Dictated By: Quinn Weston Jr, MD 07/20/21 [facility] [employer] Other XR knee LT 4V* Signed By: [employer] Other XR knee LT 4V* 07/20/21 [facility] [employer] Other CT ABDOMEN PELVIS WO CONTRAS Ton 12-08-2020 CT ABDOMEN PELVIS WO CONTRAST EXAMINATION: CT OF THE ABDOMEN AND PELVIS WITHOUT CONTRAST 12/07/2020 11:59 pm TECHNIQUE: CT of the abdomen and pelvis was performed without the administration of intravenous contrast. Multiplanar reformatted images are provided for review. Dose modulation, iterative reconstruction, and/or weight based adjustment of the mA/kV was utilized to reduce the radiation dose to as low as reasonably achievable. COMPARISON: None. 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 Thank you! left flank pain for 1 year, worsening, afebrile, no nausea, no vomiting, no weight changes, no urine changes, no menstrual changes, no trauma, R/O nephrolithiasis, spleen pathology Is the patient ?->No Reason for Exam: left flank pain for 1 year, worsening, afebrile, no nausea, no vomiting, no weight changes, no ur... FINDINGS: Lower Chest: No acute abnormality in the visualized lung bases. Organs: Within the limitations of a noncontrast examination, no acute abnormality within the spleen, gallbladder, pancreas, or adrenal glands. The liver is diffusely hypoattenuating. There is fatty sparing along the gallbladder fossa. There is a 1.8 cm area of ill-defined hyperattenuation in the inferior right hepatic lobe. There is also ill-defined hyperattenuation in the left hepatic lobe. No nephrolithiasis or hydronephrosis. GI/Bowel: Stomach is partially distended. The small bowel is nondilated. Colon is nondilated. The appendix is within normal limits. Pelvis: Bladder is partially distended without vesicular stone. The uterus is present. Peritoneum/Retroperitoneu m: No ascites or pneumoperitoneum. Abdominal aorta is normal in caliber. Note is made of a retroaortic left renal vein. Bones/Soft Tissues: No acute osseous abnormality. IMPRESSION: 1. No acute intra-abdominal abnormality. 2. Hepatic steatosis. Multiple areas of increased attenuation in the hepatic lobes, likely fatty sparing. Interpreted by: Eden Garcia MD Signed by: Eden Garcia MD 12/08/20 Final result Normal [facility] CT ABDOMEN PELVIS WO CONTRAS T Additional Contrast? NoneOrdered By: Denton Barr on 12-08-2020 1. No acute intra-abdominal abnormality. 2. Hepatic steatosis. Multiple areas of increased attenuation in the hepatic lobes, likely fatty sparing. [facility] [employer] Work Phone: EXAMINATION: CT OF T HE ABDOMEN AND PELVIS WITHOUT CONTRAST 12/07/2020 11:59 pm TECHNIQUE: CT of the abdomen and pelvis was performed without the administration of intravenous contrast. Multiplanar reformatted images are provided for review. Dose modulation, iterative reconstruction, and/or weight based adjustment of the mA/kV was utilized to reduce the radiation dose to as low as reasonably achievable. COMPARISON: None. 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 Thank you! left flank pain for 1 year, worsening, afebrile, no nausea, no vomiting, no weight changes, no urine changes, no menstrual changes, no trauma, R/O nephrolithiasis, spleen pathology Is the patient ?->No Reason for Exam: left flank pain for 1 year, worsening, afebrile, no nausea, no vomiting, no weight changes, no ur... FINDINGS: Lower Chest: No acute abnormality in the visualized lung bases. Organs: Within the limitations of a noncontrast examination, no acute abnormality within the spleen, gallbladder, pancreas, or adrenal glands. The liver is diffusely hypoattenuating. There is fatty sparing along the gallbladder fossa. There is a 1.8 cm area of ill-defined hyperattenuation in the inferior right hepatic lobe. There is also ill-defined hyperattenuation in the left hepatic lobe. No nephrolithiasis or hydronephrosis. GI/Bowel: Stomach is partially distended. The small bowel is nondilated. Colon is nondilated. The appendix is within normal limits. Pelvis: Bladder is partially distended without vesicular stone. The uterus is present. Peritoneum/Retroperitoneu m: No ascites or pneumoperitoneum. Abdominal aorta is normal in caliber. Note is made of a retroaortic left renal vein. Bones/Soft Tissues: No acute osseous abnormality. [employer] Work Phone: Jayy, [facility] Incoming Radiant Results From [facility] - 12/08/2020 12:39 AM EDT EXAMINATION: CT OF THE ABDOMEN AND PELVIS WITHOUT CONTRAST 12/07/2020 11:59 pm TECHNIQUE: CT of the abdomen and pelvis was performed without the administration of intravenous contrast. Multiplanar reformatted images are provided for review. Dose modulation, iterative reconstruction, and/or weight based adjustment of the mA/kV was utilized to reduce the radiation dose to as low as reasonably achievable. COMPARISON: None. 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 Thank you! left flank pain for 1 year, worsening, afebrile, no nausea, no vomiting, no weight changes, no urine changes, no menstrual changes, no trauma, R/O nephrolithiasis, spleen pathology Is the patient ?->No Reason for Exam: left flank pain for 1 year, worsening, afebrile, no nausea, no vomiting, no weight changes, no ur... FINDINGS: Lower Chest: No acute abnormality in the visualized lung bases. Organs: Within the limitations of a noncontrast examination, no acute abnormality within the spleen, gallbladder, pancreas, or adrenal glands. The liver is diffusely hypoattenuating. There is fatty sparing along the gallbladder fossa. There is a 1.8 cm area of ill-defined hyperattenuation in the inferior right hepatic lobe. There is also ill-defined hyperattenuation in the left hepatic lobe. No nephrolithiasis or hydronephrosis. GI/Bowel: Stomach is partially distended. The small bowel is nondilated. Colon is nondilated. The appendix is within normal limits. Pelvis: Bladder is partially distended without vesicular stone. The uterus is present. Peritoneum/Retroperitoneu m: No ascites or pneumoperitoneum. Abdominal aorta is normal in caliber. Note is made of a retroaortic left renal vein. Bones/Soft Tissues: No acute osseous abnormality. IMPRESSION: 1. No acute intra-abdominal abnormality. 2. Hepatic steatosis. Multiple areas of increased attenuation in the hepatic lobes, likely fatty sparing. [employer] Phone: [employer] Phone: BASIC METABOLIC PANELOrdered By: Denton Barr on 12-07-2020 Anion gap [Moles/Vol] 10 mmol/L 9 - 17 mmol/L [employer] Phone: Calcium [Mass/Vol] 8.7 mg/dL 8.6 - 10. 4 mg/dL [employer] Phone: Chloride [Moles/Vol] 103 mmol/L 98 - 10 7 mmol/L [employer] Phone: CO2 [Moles/Vol] 25 mmol/L 20 - 31 mmol/L [employer] Phone: Creatinine [Mass/Vol] 0.68 mg/dL 0.50 - 0.90 mg/dL [employer] Phone: GFR >60 >60 mL/min [employer] Phone: GFR Non- >60 >60 mL/min [employer] Phone: GFR/1.73 sq M.predicted MDRD (S/P/Bld) [Vol rate/Area] [employer] Phone: Comment on above: Average GFR for 20-2 9 years old: 116 mL/min/1.73sq m Chronic Kidney Disease: <60 mL/min/1.73sq m Kidney failure: <15 mL/min/1.73sq m eGFR calculated using average adult body mass. Additional eGFR calculator available at: http://www.Meijob/multiple_crcl_2011.htm GFR/1.73 sq M.predicted MDRD (S/P/Bld) [Vol rate/Area] NOT REPORTED [employer] Phone: Glucose [Mass/Vol] 108 mg/dL High 70 - 99 mg/dL [employer] Phone: Interpretation and review of laboratory results Abnormal [employer] Phone: Potassium [Moles/Vol] 4.1 mmol/L 3.7 - 5.3 mmol/L [employer] Phone: Sodium [Moles/Vol] 138 mmol/L 135 - 144 mmol/L [employer] Phone: Urea nitrogen (BldV) [Mass/Vol] 12 mg/dL 6 - 20 mg/dL [employer] Phone: Urea nitrogen/Creatinine (Bld) [Mass ratio] NOT REPORTED [employer] Phone: LoLo Phone: Basic Metabolic Profon 12-07 (cont.) Normal [facility] Comment on above: Result Comment: Aver age GFR for 20-29 years old: 116 mL/min/1.73sq m Chronic Kidney Disease: <60 mL/min/1.73sq m Kidney failure: <15 mL/min/1.73sq m eGFR calculated using average adult body mass. Additional eGFR calculator available at: http://www.Meijob/multiple_crcl_2011.htm Performed By: #### C DP, HCG, BMP #### [facility] [address] [place] [address] Management Lead: Lloyd Vela MD Anion gap [Moles/Vol] 10 mmol/L Normal 9-17 [facility] Comment on above: Performed By: #### C DP, HCG, BMP #### [facility] [address] [place] [address] Management Lead: Lloyd Vela MD Calcium [Mass/Vol] 8.7 mg/dL Normal 8.6-10.4 [facility] Comment on above: Performed By: #### C DP, HCG, BMP #### [address] [address] Management Lead: Lloyd Vela MD Chloride [Moles/Vol] 103 mmol/L Normal 98-107 [facility] Comment on above: Performed By: #### C DP, HCG, BMP #### [address] [address] Management Lead: Lloyd Vela MD CO2 [Moles/Vol] 25 mmol/L Normal 20-31 [facility] Comment on above: Performed By: #### C DP, HCG, BMP #### [address] [address] Management Lead: Lloyd Vela MD Creatinine [Mass/Vol] 0.68 mg/dL Normal 0.50-0.90 [facility] Comment on above: Performed By: #### C DP, HCG, BMP #### [address] [address] Management Lead: Lloyd Veal MD GFR, Amer >60 Normal >60 [facility] Comment on above: Performed By: #### C DP, HCG, BMP #### [facility] [employer] [address] [place] [address] Management Lead: Lloyd Vela MD GFR,non Amer >60 Normal >60 [facility] Comment on above: Performed By: #### C DP, HCG, BMP #### [facility] [employer] [address] [place] [address] Management Lead: Lloyd Vela MD Glucose [Mass/Vol] 108 mg/dL High 70-99 [facility] Comment on above: Performed By: #### C DP, HCG, BMP #### [facility] [place] [address] Management Lead: Lloyd Vela MD Potassium [Moles/Vol] 4.1 mmol/L Normal 3.7-5.3 [facility] Comment on above: Performed By: #### C DP, HCG, BMP #### [facility] [address] [place] [address] Management Lead: Lloyd Vela MD Sodium [Moles/Vol] 138 mmol/L Normal 135-144 [facility] Comment on above: Performed By: #### C DP, HCG, BMP #### [facility] [address] [place] [address] Management Lead: Lloyd Vela MD Urea nitrogen [Mass/Vol] 12 mg/dL Normal -20 [facility] Comment on above: Performed By: #### C DP, HCG, BMP #### [facility] [address] [place] [address] Management Lead: Lloyd Vela MD BUN/CRE Ratio NOT REPORTED Normal - [facility] Comment on above: Performed By: #### C DP, HCG, BMP #### [facility] [address] [place] [address] Management Lead: Lloyd Vela MD Staging: NOT REPORTED Normal [facility] Comment on above: Performed By: #### C DP, HCG, BMP #### [facility] [address] [place] [address] Management Lead: Lloyd Vela MD CBC WITH AUTO DIFFERENTIALOr dered By: Denton Barr on 12-07-2020 [facility] # 0.07 [facility] th Work Phone: [employer] Immature Granulocyte 0.05 [facility] Work Phone: [employer] Lymph # 3.21 [facility] alth Work Phone: Absolute Delta # [id number] [facility] Work Phone: Basophils (Bld) [#/Vol] 0.04 10*3/uL [facility] Work Phone: Basophils/100 WBC (Bld) 0 % 0 - 2 % [facility] Phone: Differential Type NOT REPORTED [facility] Phone: Eosinophils/100 WBC (Bld) 1 % 1 - 4 % [facility] Phone: Hematocrit (Bld) [Volume fraction] 39.2 % 36.3 - 47.1 % [facility] Phone: Hemoglobin.gastrointes tinal spec 1 Ql (Stl) 13.1 g/dL 11.9 - 15.1 g/dL [facility] Phone: Immature granulocytes/100 WBC (Bld) 0 % 0 [facility] Phone: Interpretation and review of laboratory results Abnormal [facility] Phone: Lymphocytes/100 WBC (Bld) 27 % 24 - 43 % [facility] Phone: MCH (RBC) [Entitic mass] 31.0 pg 25.2 - 33.5 pg [facility] Phone: MCHC (RBC) [Mass/Vol] 33.4 g/dL 28.4 - 34.8 g/dL [facility] Phone: MCV (RBC) [Entitic vol] 92.9 fL 82.6 - 102.9 fL [employer] Phone: Monocytes/100 WBC (Bld) 8 % 3 - 12 % [facility] Phone: NRBC Automated 0.0 0.0 per 100 WBC [facility] Phone: Platelet distribution width (Bld) [Ratio] 12.3 % 11.8 - 14.4 % [facility] Phone: Platelet Estimate NOT REPORTED [facility] Phone: Platelet mean volume (Bld) [Entitic vol] 9.0 fL 8.1 - 13.5 fL [employer] Phone: Platelets (Bld) [#/Vol] 314 10*3/uL [employer] Phone: RBC (Bld) [#/Vol] 4.22 10*6/uL 3.95 - 5.11 m/uL [facility] Work Phone: RBC (Bld) [#/Vol] NOT REPORTED [facility] Phone: Segmented neutrophils/100 WBC (Bld) 64 % 36 - 65 % [facility] Phone: Segs Absolute 7.42 [employer] Work Phone: WBC (Bld) [#/Vol] 11.7 10*3/uL High [facility] Work Phone: WBC (Bld) [#/Vol] NOT REPORTED [facility] Phone: [facility] Work Phone: CBC with Diffon 12-07-2020 Abs. Basophil 0.04 k/uL Normal 0.00-0.20 [facility] Comment on above: Performed By: #### C DP, HCG, BMP #### [facility] [address] [place] [address] [phone] Management Lead: Lloyd Vela MD Abs.Imm.Granulocyte 0.05 k/uL Normal 0.00-0.30 [facility] Comment on above: Performed By: #### C DP, HCG, BMP #### [facility] [address] [place] [address] Management Lead: Lloyd Vela MD Abs.Neutrophil (Seg) 7.42 k/uL Normal 1.50-8.10 [facility] Comment on above: Performed By: #### C DP, HCG, BMP #### [address] [address] Management Lead: Lloyd Vela MD Basophils/100 WBC (Bld) 0 % Normal 0-2 [facility] Comment on above: Performed By: #### C DP, HCG, BMP #### [facility] [employer] [address] [place] [address] Management Lead: Lloyd Vela MD Eosinophils (Bld) [#/Vol] 0.07 10*3/uL Normal 0.00-0.44 [facility] Comment on above: Performed By: #### C DP, HCG, BMP #### [address] [address] Management Lead: Lloyd Vela MD Eosinophils/100 WBC (Bld) 1 % Normal 1-4 [facility] Comment on above: Performed By: #### C DP, HCG, BMP #### [place] [address] Management Lead: Lloyd Vela MD Immature granulocytes/100 WBC (Bld) 0 % Normal 0 [facility] Comment on above: Performed By: #### C DP, HCG, BMP #### [facility] [address] [place] [address] Management Lead: Lloyd Vela MD Lymphocytes (Bld) [#/Vol] 3.21 10*3/uL Normal 1.10-3.70 [facility] Comment on above: Performed By: #### C DP, HCG, BMP #### [facility] [address] [place] [phone] Management Lead: Lloyd Vela MD Lymphocytes/100 WBC (Bld) 27 % Normal 24-43 [facility] Comment on above: Performed By: #### C DP, HCG, BMP #### [address] [address] Management Lead: Lloyd Vela MD Monocytes (Bld) [#/Vol] 0.94 10*3/uL Normal 0.10-1.20 [facility] Comment on above: Performed By: #### C DP, HCG, BMP #### [address] [address] Management Lead: Lloyd Vela MD Monocytes/100 WBC (Bld) 8 % Normal 3-12 [facility] Comment on above: Performed By: #### C DP, HCG, BMP #### [facility] [address] [place] [address] Management Lead: Lloyd Vela MD Neutrophil (Seg) 64 % Normal 36-65 [facility] Comment on above: Performed By: #### C DP, HCG, BMP #### [facility] [address] [place] [address] Management Lead: Lloyd Vela MD Erythrocyte distribution width (RBC) [Ratio] 12.3 % Normal 11.8-14.4 [facility] Comment on above: Performed By: #### C DP, HCG, BMP #### [facility] [address] [place] [address] Management Lead: Lloyd Vela MD Hematocrit (Bld) [Volume fraction] 39.2 % Normal 36.3-47.1 [facility] Comment on above: Performed By: #### C DP, HCG, BMP #### [facility] [address] [place] [address] Management Lead: Lloyd Vela MD Hemoglobin (Bld) [Mass/Vol] 13.1 g/dL Normal 11.9-15.1 [facility] Comment on above: Performed By: #### C DP, HCG, BMP #### [facility] [address] [place] [address] Management Lead: Lloyd Vela MD MCH (RBC) [Entitic mass] 31.0 pg Normal 25.2-33.5 [facility] Comment on above: Performed By: #### C DP, HCG, BMP #### [address] [address] Management Lead: Lloyd Vela MD MCHC (RBC) [Mass/Vol] 33.4 g/dL Normal 28.4-34.8 [facility] Comment on above: Performed By: #### C DP, HCG, BMP #### [address] [address] Management Lead: Lloyd Vela MD MCV (RBC) [Entitic vol] 92.9 fL Normal 82.6-102.9 [facility] Comment on above: Performed By: #### C DP, HCG, BMP #### [address] [address] Management Lead: Lloyd Vela MD NRBC Automated 0.0 per 100 WBC Normal 0.0 [facility] Comment on above: Performed By: #### C DP, HCG, BMP #### [address] [address] Management Lead: Lloyd Vela MD Platelet mean volume (Bld) [Entitic vol] 9.0 fL Normal 8.1-13.5 [facility] Comment on above: Performed By: #### C DP, HCG, BMP #### [address] [address] Management Lead: Lloyd Vela MD Platelets (Bld) [#/Vol] 314 10*3/uL Normal 138-453 [facility] Comment on above: Performed By: #### C DP, HCG, BMP #### [address] [address] Management Lead: Lloyd Vela MD RBC (Bld) [#/Vol] 4.22 10*6/uL Normal 3.95-5.11 [facility] Comment on above: Performed By: #### C DP, HCG, BMP #### [address] [address] Management Lead: Lloyd Vela MD WBC (Bld) [#/Vol] 11.7 10*3/uL High 3.5-11.3 [facility] Comment on above: Performed By: #### C DP, HCG, BMP #### [address] [address] Management Lead: Lloyd Vela MD Auto Diff Performed NOT REPORTED Normal [facility] Comment on above: Performed By: #### C DP, HCG, BMP #### [facility] [address] [place] [address] Management Lead: Lloyd Vela MD Platelet Estimate NOT REPORTED Normal [facility] Comment on above: Performed By: #### C DP, HCG, BMP #### [facility] [address] [place] [address] Management Lead: Lloyd Vela MD RBC morphology finding Nom (Bld) NOT REPORTED Normal [facility] Comment on above: Performed By: #### C DP, HCG, BMP #### [facility] [address] [place] [address] Management Lead: Lloyd Vela MD WBC Morphology NOT REPORTED Normal [facility] Comment on above: Performed By: #### C DP, HCG, BMP #### [facility] [address] [place] [address] Management Lead: Lloyd Vela MD HCG Qualitative, SerumOrdere d By: Denton Barr on 12-07-2020 hCG Qual Negative NEGATIVE [facility] [employer] Phone: Comment on above: Specimens with hCG l evels near the threshold of the test (25 mIU/mL) may give a negative or indeterminate result. In such cases, another test should be performed with a new specimen in 48-72 hours. If early is suspected clinically in this setting, correlation with quantitative serum b-hCG level is suggested. [facility] has confirmed the use of plasma for this test. This has not been cleared or approved by the U.S. Food and Drug Administration. The FDA has determined that such clearance is not necessary. [facility] Phone: HCG Screen, Bloodon 12-08-19 21 HCG Screen, Blood Negative Normal NEG [facility] Comment on above: Result Comment: Spec imens with hCG levels near the threshold of the test (25 mIU/mL) may give a negative or indeterminate result. In such cases, another test should be performed with a new specimen in 48-72 hours. If early is suspected clinically in this setting, correlation with quantitative serum b-hCG level is suggested. [facility] has confirmed the use of plasma for this test. This has not been cleared or approved by the U.S. Food and Drug Administration. The FDA has determined that such clearance is not necessary. Performed By: #### C DP, HCG, BMP #### [facility] [address] [place] [address] Management Lead: Lloyd Vela MD Microscopic UrinalysisOrdere d By: Denton Alfordmarisol on 12-07-2020 - [facility] Phone: Amorphous, UA NOT REPORTED None [employer] [facility] Work Phone: Bacteria, UA FEW Abnormal None [facility] Work Phone: Casts UA NOT REPORTED [facility] Work Phone: Crystals, UA NOT REPORTED None /HPF [facility] Work Phone: Epithelial Cells UA 2 TO 5 [facility] Work Phone: Interpretation and review of laboratory results Abnormal [facility] Work Phone: Mucus, UA NOT REPORTED None [facility] Phone: Other Observations UA NOT REPORTED NOT REQ. [facility] Work Phone: RBC, UA 2 TO 5 [facility] Work Phone: Comment on above: Reference range defi hafsa for non-centrifuged specimen. Renal Epithelial, UA NOT REPORTED 0 /HPF [facility] [employer] Work Phone: Trichomonas, UA NOT REPORTED None [facility] Work Phone: WBC, UA 5 TO 10 [facility] Work Phone: Yeast, UA NOT REPORTED None [facility] Phone: [facility] Phone: UA w/Reflex Cultureon 2020 Bilirubin, SemiQt,Ur Negative Normal NEG [facility] Comment on above: Performed By: #### U MICAO, UAX #### [facility] [address] [place] [address] [phone] Management Lead: Lloyd Vela MD Blood, Urine TRACE Abnormal NEG [facility] Comment on above: Performed By: #### U MICAO, UAX #### [facility] [address] [place] [address] [phone] Management Lead: Lloyd Vela MD Clarity (U) CLEAR Normal CLEAR [facility] Comment on above: Performed By: #### U MICAO, UAX #### [facility] [address] [place] [address] [phone] Management Lead: Lloyd Vela MD Color (U) YELLOW Normal YEL [facility] Comment on above: Performed By: #### U MICAO, UAX #### [facility] [address] [place] [address] [phone] Management Lead: Lloyd Vela MD Glucose Ql (U) Negative Normal NEG [facility] Comment on above: Performed By: #### U MICAO, UAX #### [address] [address] Management Lead: Lloyd Vela MD Ketones Ql (U) Negative Normal NEG [facility] Comment on above: Performed By: #### U MICAO, UAX #### [address] [address] Management Lead: Lloyd Vela MD Leukocyte esterase Test strip Ql (U) Negative Normal NEG [facility] Comment on above: Performed By: #### U MICAO, UAX #### [address] [address] Management Lead: Lloyd Vela MD Nitrite,Ur Negative Normal NEG [facility] Comment on above: Performed By: #### U MICAO, UAX #### [address] [address] Management Lead: Lloyd Vela MD PH,Ur 5.5 Normal 5.0-8.0 [facility] Comment on above: Performed By: #### U MICAO, UAX #### [address] [address] Management Lead: Lloyd Vela MD Protein Ql (U) Negative Normal NEG [facility] Comment on above: Performed By: #### U MICAO, UAX #### [address] [address] Management Lead: Lloyd Vela MD Spec. [place],Ur 1.020 Normal 1.005-1.03 0 [facility] Comment on above: Performed By: #### U MICAO, UAX #### [facility] [employer] [address] [place] [address] Management Lead: Lloyd Vela MD Urobilinogen,Ur Normal Normal NORM [facility] Comment on above: Performed By: #### U MICAO, UAX #### [facility] [address] [place], [place] [phone] Management Lead: Lloyd Vela MD Comment NOT REPORTED Normal [facility] Comment on above: Performed By: #### U MICAO, UAX #### [facility] [address] [place], [place] [phone] Management Lead: Lloyd Vela MD Urinalysis Reflex to Culture Ordered By: Denton Barr on 12-07-2020 Bilirubin Urine Negative NEGATIVE [facility] Work Phone: Color, UA YELLOW YELLOW [facility] Work Phone: Glucose, Ur Negative NEGATIVE [facility] Work Phone: Interpretation and review of laboratory results Abnormal [facility] Work Phone: Ketones Ql (U) Negative NEGATIVE [facility] Work Phone: Leukocyte esterase Test strip Ql (U) Negative NEGATIVE [facility] Work Phone: Nitrite, Urine Negative NEGATIVE [facility] Work Phone: pH, UA 5.5 [facility] Work Phone: Protein, UA Negative NEGATIVE [facility] Work Phone: Specific [place], UA 1.020 [facility] [employer] Work Phone: Turbidity UA CLEAR CLEAR [facility] Work Phone: Urinalysis Comments NOT REPORTED [facility] Work Phone: Urine Hgb TRACE Abnormal NEGATIVE [facility] Work Phone: Urobilinogen, Urine Normal Normal [facility] Work Phone: [facility] Work Phone: Urinalysis,Microon 1 ----- Normal [facility] Comment on above: Performed By: #### U MICAO, UAX #### [facility] [address] [place] [address] Management Lead: Lloyd Vela MD Bacteria FEW Abnormal NONE [facility] Comment on above: Performed By: #### U MICAO, UAX #### [facility] [address] [place] [address] Management Lead: Lloyd Vela MD Epithelial cells LM Ql (Urine sed) 2 TO 5 Normal 0-5 [facility] Comment on above: Performed By: #### U MICAO, UAX #### [facility] [address] [place] [phone] Management Lead: Lloyd Vela MD Urine RBC's 2 TO 5 Normal 0-4 [facility] Comment on above: Result Comment: Refe rence range defined for non-centrifuged specimen. Performed By: #### U MICAO, UAX #### [facility] [address] [place] [address] Management Lead: Lloyd Vela MD Urine WBC's 5 TO 10 Normal 0-5 [facility] Comment on above: Performed By: #### U MICAO, UAX #### [facility] [address] [place] [address] Management Lead: Lloyd Vela MD Amorphous sediment LM Ql (Urine sed) NOT REPORTED Normal NONE [facility] Comment on above: Performed By: #### U MICAO, UAX #### [facility] [address] [place] [phone] Management Lead: Lloyd Vela MD Casts NOT REPORTED Normal 0-8 [facility] Comment on above: Performed By: #### U MICAO, UAX #### [facility] [address] [place] [phone] Management Lead: Lloyd Vela MD Crystals LM Nom (Urine sed) NOT REPORTED Normal NONE [facility] Comment on above: Performed By: #### U MICAO, UAX #### [facility] [address] [place] [address] Management Lead: Lloyd Vela MD Epithelial, Renal NOT REPORTED Normal 0 [facility] Comment on above: Performed By: #### U MICAO, UAX #### [facility] [address] [place] [address] Management Lead: Lloyd Vela MD Mucus Strands NOT REPORTED Normal NONE [facility] Comment on above: Performed By: #### U MICAO, UAX #### [facility] [address] [place] [phone] Management Lead: Lloyd Vela MD Other Observations NOT REPORTED Normal NREQ [facility] Comment on above: Performed By: #### U MICAO, UAX #### [facility] [address] [place] [address] Management Lead: Lloyd Vela MD Trichomonas NOT REPORTED Normal NONE [facility] Comment on above: Performed By: #### U MICAO, UAX #### [facility] [address] [place] [address] Management Lead: Lloyd Vela MD Yeast NOT REPORTED Normal NONE [facility] Comment on above: Performed By: #### U MICAO, UAX #### [facility] [address] [place] [address] Management Lead: Lloyd Vela MD Vital Signs Date Time Vital Sign Value Performing Clinician Facility 03-24-2024 18:54-0400 Body temperature 98.24 [degF] [facility] 03-24-2024 18:54-0400 Diastolic blood pressure 68 mm[Hg] [facility] 03-24-2024 18:54-0400 Heart rate 57 /min [facility] 03-24-2024 18:54-0400 Respiratory rate 16 /min [facility] 03-24-2024 18:54-0400 SaO2% (BldA) [Mass fraction] 100 % [facility] 03-24-2024 18:54-0400 Systolic blood pressure 128 mm[Hg] [facility] 03-10-2024 13:08-0400 Body mass index (BMI) [Ratio] 39.78 kg/m2 [facility] 03-10-2024 13:08-0400 Body weight 98.66 kg [facility] 03-10-2024 13:08-0400 Diastolic blood pressure 72 mm[Hg] [facility] 03-10-2024 13:08-0400 Systolic blood pressure 114 mm[Hg] [facility] 02-04-2024 13:34-0400 Body height 157.48 cm EVENT REPRESENTATIVE Georgie Fareed Work Phone: [facility] 02-04-2024 13:34-0400 Body mass index (BMI) [Ratio] 39.2 kg/m2 EVENT REPRESENTATIVE Georgie Fareed Work Phone: [facility] 02-04-2024 13:34-0400 Body temperature 98.1 [degF] EVENT REPRESENTATIVE Georgie Fareed Work Phone: [facility] 02-04-2024 13:34-0400 Body weight 97.18 kg EVENT REPRESENTATIVE Georgie Fareed Work Phone: [facility] 02-04-2024 13:34-0400 Diastolic blood pressure 77 mm[Hg] EVENT REPRESENTATIVE Georgie Fareed Work Phone: [facility] 02-04-2024 13:34-0400 Heart rate 77 /min EVENT REPRESENTATIVE Georgie Fareed Work Phone: [facility] 02-04-2024 13:34-0400 SaO2% (BldA) [Mass fraction] 98 % EVENT REPRESENTATIVE Georgie Fareed Work Phone: [facility] 02-04-2024 13:34-0400 Systolic blood pressure 114 mm[Hg] EVENT REPRESENTATIVE Georgie Woob Work Phone: [facility] 01-15-2024 21:31-0400 Body temperature 99.14 [degF] [facility] 01-15-2024 21:31-0400 Diastolic blood pressure 86 mm[Hg] [facility] 01-15-2024 21:31-0400 Heart rate 66 /min [facility] 01-15-2024 21:31-0400 Respiratory rate 18 /min [facility] 01-15-2024 21:31-0400 SaO2% (BldA) [Mass fraction] 98 % [facility] 01-15-2024 21:31-0400 Systolic blood pressure 131 mm[Hg] [facility] 11-18-2023 09:57-0400 Body height 157.48 cm MD Jelly Chery Work Phone: [facility] 11-18-2023 09:57-0400 Body mass index (BMI) [Ratio] 38.5 kg/m2 MD Jelly Chery Work Phone: [facility] 11-18-2023 09:57-0400 Body temperature 97.5 [degF] MD Jelly Chery Work Phone: [facility] 11-18-2023 09:57-0400 Body weight 95.7 kg MD Jelly Chery Work Phone: [facility] 11-18-2023 09:57-0400 Diastolic blood pressure 72 mm[Hg] MD Jelly Chery Work Phone: [facility] 11-18-2023 09:57-0400 Heart rate 51 /min MD Jelly Chery Work Phone: [facility] 11-18-2023 09:57-0400 Respiratory rate 18 /min MD Jelly Chery Work Phone: [facility] 11-18-2023 09:57-0400 SaO2% (BldA) [Mass fraction] 98 % MD Jelly Chery Work Phone: [facility] 11-18-2023 09:57-0400 Systolic blood pressure 117 mm[Hg] MD Jelly Chery Work Phone: [facility] 10-30-2023 18:56-0400 Body height 157.48 cm MD Jelly Chery Work Phone: [facility] 10-30-2023 18:56-0400 Body mass index (BMI) [Ratio] 35 kg/m2 MD Jelly Chery Work Phone: [facility] 10-30-2023 18:56-0400 Body temperature 97.8 [degF] MD Jelly Chery Work Phone: [facility] 10-30-2023 18:56-0400 Body weight 87 kg MD Jelly Chery Work Phone: [facility] 10-30-2023 18:56-0400 Diastolic blood pressure 86 mm[Hg] MD Jelly Chery Work Phone: [facility] 10-30-2023 18:56-0400 Heart rate 103 /min MD Jelly Chery Work Phone: [facility] 10-30-2023 18:56-0400 Respiratory rate 16 /min MD Jelly Chery Work Phone: [facility] 10-30-2023 18:56-0400 SaO2% (BldA) [Mass fraction] 98 % MD Jelly Chery Work Phone: [facility] 10-30-2023 18:56-0400 Systolic blood pressure 125 mm[Hg] MD Jelly Chery Work Phone: [facility] 09-29-2023 10:46-0400 Body height 157.48 cm MD Jelly Chery Work Phone: [facility] 09-29-2023 10:46-0400 Body mass index (BMI) [Ratio] 35.1 kg/m2 MD Jelly Chery Work Phone: [facility] 09-29-2023 10:46-0400 Body temperature 97.7 [degF] MD Jelly Chery Work Phone: [facility] 09-29-2023 10:46-0400 Body weight 87.08 kg MD Jelly Chery Work Phone: [facility] 09-29-2023 10:46-0400 Diastolic blood pressure 78 mm[Hg] MD Jelly Chery Work Phone: [facility] 09-29-2023 10:46-0400 Heart rate 64 /min MD Jelly Chery Work Phone: [facility] 09-29-2023 10:46-0400 SaO2% (BldA) [Mass fraction] 98 % MD Jelly Chery Work Phone: [facility] 09-29-2023 10:46-0400 Systolic blood pressure 115 mm[Hg] MD Jelly Chery Work Phone: [facility] 09-07-2023 14:31-0400 Body height 157.48 cm MD Jelly Chery Work Phone: [facility] 09-07-2023 14:31-0400 Body mass index (BMI) [Ratio] 37.6 kg/m2 MD Jelly Chery Work Phone: [facility] 09-07-2023 14:31-0400 Body temperature 98.2 [degF] MD Jelly Chery Work Phone: [facility] 09-07-2023 14:31-0400 Body weight 93.44 kg MD Jelly Chery Work Phone: [facility] 09-07-2023 14:31-0400 Diastolic blood pressure 72 mm[Hg] MD Jelly Chery Work Phone: [facility] 09-07-2023 14:31-0400 Heart rate 57 /min MD Jelly Chery Work Phone: [facility] 09-07-2023 14:31-0400 Systolic blood pressure 116 mm[Hg] MD Jelly Chery Work Phone: [facility] 07-27-2023 14:08-0500 Body height 157.48 cm MD Jelly Chery Work Phone: [facility] 07-27-2023 14:08-0500 Body mass index (BMI) [Ratio] 37.6 kg/m2 MD Jelly Chery Work Phone: [facility] 07-27-2023 14:08-0500 Body temperature 98.2 [degF] MD Jelly Chery Work Phone: [facility] 07-27-2023 14:08-0500 Body weight 93.44 kg MD Jelly Chery Work Phone: [facility] 07-27-2023 14:08-0500 Diastolic blood pressure 80 mm[Hg] MD Jelly Chery Work Phone: [facility] 07-27-2023 14:08-0500 Heart rate 65 /min MD Jelly Chery Work Phone: [facility] 07-27-2023 14:08-0500 Systolic blood pressure 127 mm[Hg] MD Jelly Chery Work Phone: [facility] 07-05-2023 12:29-0500 Body temperature 96.49 [degF] Rad Sims DO Work Phone: [facility] 07-05-2023 12:29-0500 Heart rate 67 /min Rad Sims DO Work Phone: [facility] 07-05-2023 12:29-0500 SaO2% (BldA) [Mass fraction] 99 % Rad Sims DO Work Phone: [facility] 06-29-2023 16:07-0500 Body temperature 97.3 [degF] Miguel Miami PA-C Work Phone: [facility] 06-29-2023 16:07-0500 Diastolic blood pressure 67 mm[Hg] Miguel Malena PA-C Work Phone: [facility] 06-29-2023 16:07-0500 Heart rate 68 /min Miguel Miami PA-C Work Phone: [facility] 06-29-2023 16:07-0500 Systolic blood pressure 121 mm[Hg] Miguel Miami PA-C Work Phone: [facility] 01-11-2023 22:27-0400 Body height 157.48 cm MD Jelly Chery Work Phone: [facility] 01-11-2023 22:27-0400 Body temperature 98.5 [degF] MD Jelly Chery Work Phone: [facility] 01-11-2023 22:27-0400 Body weight 88.45 kg MD Jelly Chery Work Phone: [facility] 01-11-2023 22:27-0400 Diastolic blood pressure 85 mm[Hg] MD Jelly Chery Work Phone: [facility] 01-11-2023 22:27-0400 Heart rate 65 /min MD Jelly Chery Work Phone: [facility] 01-11-2023 22:27-0400 Respiratory rate 18 /min MD Jelly Chery Work Phone: [facility] 01-11-2023 22:27-0400 SaO2% (BldA) [Mass fraction] 100 % MD eJlly Chery Work Phone: [facility] 01-11-2023 22:27-0400 Systolic blood pressure 144 mm[Hg] MD Jelly Chery Work Phone: [facility] 10-17-2022 18:45-0400 Body height 154.94 cm Nasreen Delaney Other [employer] Other 10-17-2022 18:45-0400 Body mass index (BMI) [Ratio] 35.59 kg/m2 Nasreen Delaney Other [employer] Other 10-17-2022 18:45-0400 Body temperature 98.2 [degF] Nasreen Delaney Other [employer] Other 10-17-2022 18:45-0400 Body weight 85.46 kg Nasreen Delaney Other [employer] Other 10-17-2022 18:45-0400 Respiratory rate 18 /min Nasreen Delaney Other [employer] Other 10-17-2022 18:45-0400 SaO2% (BldA) [Mass fraction] 98 % Nasreen Delaney Other [facility] Other 07-20-2022 14:00-0500 Diastolic blood pressure 66 mm[Hg] Roman Yahaira [facility] 07-20-2022 14:00-0500 Heart rate 79 /min Roman Yahaira [facility] 07-20-2022 14:00-0500 Hourly Rounding Roman Yahaira [facility] 07-20-2022 14:00-0500 Mean blood pressure 81 mm[Hg] Roman Yahaira [facility] 07-20-2022 14:00-0500 Promise to Return Roman Yahaira [facility] 07-20-2022 14:00-0500 SaO2% (BldA) [Mass fraction] 97 % Roman Yahaira [facility] 07-20-2022 14:00-0500 Systolic blood pressure 110 mm[Hg] Roman Yahaira [facility] 07-20-2022 01:00-0500 Diastolic blood pressure 72 mm[Hg] Roman Yahaira [facility] 07-20-2022 01:00-0500 Heart rate 81 /min Roman Yahaira [facility] 07-20-2022 01:00-0500 Hourly Rounding Roman Yahaira [facility] 07-20-2022 01:00-0500 Mean blood pressure 89 mm[Hg] Roman Yahaira [facility] 07-20-2022 01:00-0500 Promise to Return Roman Yahaira [facility] 07-20-2022 01:00-0500 SaO2% (BldA) [Mass fraction] 99 % Roman Yahaira [facility] 07-20-2022 01:00-0500 Systolic blood pressure 122 mm[Hg] Roman Yahaira [facility] 07-20-2022 00:00-0500 Heart rate 83 /min Roman Yahaira [facility] 07-20-2022 00:00-0500 Hourly Rounding Roman Yahaira [facility] 07-20-2022 00:00-0500 Mean blood pressure 84 mm[Hg] Roman Yahaira [facility] 07-20-2022 00:00-0500 Promise to Return Roman Yahaira [facility] 07-20-2022 00:00-0500 SaO2% (BldA) [Mass fraction] 96 % Roman Yahaira [facility] 07-20-2022 00:00-0500 Systolic blood pressure 107 mm[Hg] Roman Yahaira [facility] 07-19-2022 21:47-0500 Body temperature 98.6 [degF] Roman Yahaira [facility] 07-19-2022 21:47-0500 Heart rate 113 /min Roman Yahaira [facility] 07-19-2022 21:47-0500 Respiratory rate 16 /min Roman Yahaira [facility] 07-08-2022 22:00-0500 Diastolic blood pressure 68 mm[Hg] Rj Due [facility] 07-08-2022 22:00-0500 Respiratory rate 17 /min Rj Joesph [facility] 07-08-2022 22:00-0500 SaO2% (BldA) [Mass fraction] 95 % Rj Joesph [facility] 07-08-2022 22:00-0500 Systolic blood pressure 110 mm[Hg] Rj Joesph [facility] 07-08-2022 21:43-0500 Body temperature 98.6 [degF] Rj Joesph [facility] 07-08-2022 21:43-0500 Diastolic blood pressure 69 mm[Hg] Rj Joesph [facility] 07-08-2022 21:43-0500 Heart rate 94 /min Rj Joesph [facility] 07-08-2022 21:43-0500 Mean blood pressure 82 mm[Hg] Rj Due [facility] 07-08-2022 21:43-0500 Systolic blood pressure 108 mm[Hg] Rj Due [facility] 07-08-2022 21:00-0500 SaO2% (BldA) [Mass fraction] 93 % Rj Due [facility] 07-08-2022 20:00-0500 Body temperature 99.5 [degF] Rj Due [facility] 07-08-2022 20:00-0500 Diastolic blood pressure 58 mm[Hg] Rj Due [facility] 07-08-2022 20:00-0500 Heart rate 110 /min Rj Due [facility] 07-08-2022 20:00-0500 Mean blood pressure 74 mm[Hg] Rj Due [facility] 07-08-2022 20:00-0500 SaO2% (BldA) [Mass fraction] 99 % Rj Due [facility] 07-08-2022 20:00-0500 Systolic blood pressure 105 mm[Hg] Rj Due [facility] 07-08-2022 17:47-0500 Heart rate 121 /min Rj Due [facility] 06-23-2022 18:00-0500 Body height 154.94 cm Asim Palma Other [employer] Other 06-23-2022 18:00-0500 Body mass index (BMI) [Ratio] 34.01 kg/m2 Asim Palma Other [employer] Other 06-23-2022 18:00-0500 Body temperature 97.8 [degF] Asim Palma Other [employer] Other 06-23-2022 18:00-0500 Body weight 81.65 kg Asim Palma Other [employer] Other 06-23-2022 18:00-0500 Respiratory rate 18 /min Asim Palma Other [employer] Other 06-23-2022 18:00-0500 SaO2% (BldA) [Mass fraction] 98 % Asim Palma Other [employer] Other 06-18-2022 18:30-0500 Body height 154.94 cm Belia Aguero Other [employer] Other 06-18-2022 18:30-0500 Body mass index (BMI) [Ratio] 34.01 kg/m2 Belia Aguero Other [employer] Other 06-18-2022 18:30-0500 Body temperature 98 [degF] Belia Aguero Other [employer] Other 06-18-2022 18:30-0500 Body weight 81.65 kg Belia Aguero Other [employer] Other 06-18-2022 18:30-0500 Respiratory rate 18 /min Belia Aguero Other [employer] Other 06-18-2022 18:30-0500 SaO2% (BldA) [Mass fraction] 98 % Belia Aguero Other [employer] Other 04-16-2022 18:15-0500 Body height 154.94 cm Belia Aguero Other [employer] Other 04-16-2022 18:15-0500 Body mass index (BMI) [Ratio] 34.01 kg/m2 Belia Aguero Other [employer] Other 04-16-2022 18:15-0500 Body temperature 98.1 [degF] Belia Aguero Other [employer] Other 04-16-2022 18:15-0500 Body weight 81.65 kg Belia Aguero Other [employer] Other 04-16-2022 18:15-0500 Respiratory rate 18 /min Belia Aguero Other [employer] Other 04-16-2022 18:15-0500 SaO2% (BldA) [Mass fraction] 99 % Belia Aguero Other [employer] Other 03-21-2022 18:00-0400 Body height 154.94 cm Belia Vázquez Other [employer] Other 03-21-2022 18:00-0400 Body mass index (BMI) [Ratio] 34.01 kg/m2 Belia Vázquez Other [employer] Other 03-21-2022 18:00-0400 Body temperature 98.3 [degF] Belia Vázquez Other [employer] Other 03-21-2022 18:00-0400 Body weight 81.65 kg Belia Vázquez Other [employer] Other 03-21-2022 18:00-0400 Diastolic blood pressure 79 mm[Hg] Belia Vázquez Other [employer] Other 03-21-2022 18:00-0400 Respiratory rate 18 /min Belia Vázquez Other [employer] Other 03-21-2022 18:00-0400 SaO2% (BldA) [Mass fraction] 100 % Belia Vázquez Other [employer] Other 03-21-2022 18:00-0400 Systolic blood pressure 123 mm[Hg] Belia Vázquez Other [employer] Other 07-20-2021 13:15-0500 Body height 154.94 cm Asim Palma Other [employer] Other 07-20-2021 13:15-0500 Body mass index (BMI) [Ratio] 34.01 kg/m2 Asim Palma Other [employer] Other 07-20-2021 13:15-0500 Body temperature 98.4 [degF] Asim Palma Other [employer] Other 07-20-2021 13:15-0500 Body weight 81.65 kg Asim Palma Other [employer] Other 07-20-2021 13:15-0500 Diastolic blood pressure 66 mm[Hg] Asim Palma Other [employer] Other 07-20-2021 13:15-0500 Respiratory rate 18 /min Asim Palma Other [employer] Other 07-20-2021 13:15-0500 SaO2% (BldA) [Mass fraction] 97 % Asim Palma Other [employer] Other 07-20-2021 13:15-0500 Systolic blood pressure 102 mm[Hg] Asim Palma Other [employer] Other 12-07-2020 19:25-0400 Body height 157.5 cm Simone Manley MD Work Phone: [employer] Work Phone: 12-07-2020 19:25-0400 Body mass index (BMI) [Ratio] 39.51 kg/m2 Simone Manley MD Work Phone: [employer] Work Phone: 12-07-2020 19:25-0400 Body temperature 98.91 [degF] Simone Manley MD Work Phone: [employer] Work Phone: 12-07-2020 19:25-0400 Body weight 97.98 kg Simone Manley MD Work Phone: [employer] Work Phone: 12-07-2020 19:25-0400 Diastolic blood pressure 81 mm[Hg] Simone Manley MD Work Phone: [employer] Work Phone: 12-07-2020 19:25-0400 Heart rate 71 /min Simone Manley MD Work Phone: [employer] Work Phone: 12-07-2020 19:25-0400 Respiratory rate 22 /min Simone Manley MD Work Phone: [employer] Work Phone: 12-07-2020 19:25-0400 SaO2% (BldA) [Mass fraction] 99 % Simone Manley MD Work Phone: [employer] Work Phone: 12-07-2020 19:25-0400 Systolic blood pressure 128 mm[Hg] Simone Manley MD Work Phone: [employer] Work Phone: Encounters Encounter Date Encounter Type Care Provider Facility Start: 03-28-2024 End: 03-28-2024 ambulatory PENG OLIVARES Not Available Start: 03-28-2024 End: 03-28-2024 Telephone encounter Peng N Merlin WELDER TECH Work Phone: [facility] Start: 03-24-2024 End: 03-24-2024 Emergency department patient visit Sergeleona Khoury Kirill [facility] Start: 03-15-2024 End: 03-15-2024 ambulatory PAWAN DASH Not Available Start: 03-10-2024 End: 03-10-2024 Office outpatient visit 5 minutes [facility] Vielka Nurse [facility] Comment on above: GA: 8w5d Start: 03-10-2024 End: 03-10-2024 ambulatory PAWAN DASH Not Available Start: 02-04-2024 End: 02-04-2024 ambulatory KRYSTAL Guerrier Work Phone: [facility] Work Phone: Start: 02-04-2024 End: 02-04-2024 Patient encounter procedure EVENT REPRESENTATIVE Georgiebill Woob Work Phone: [facility] Work Phone: Start: 01-15-2024 End: 01-15-2024 Emergency department patient visit Roman Syed [facility] Start: 01-11-2024 End: 01-11-2024 ambulatory MATTI SIMS Not Available Start: 01-03-2024 End: 01-03-2024 Emergency department patient visit JELLY CHERY [facility] Start: 11-24-2023 End: 11-24-2023 ambulatory MD Jelly Chery Work Phone: [facility] Work Phone: Start: 11-24-2023 End: 11-24-2023 Patient encounter procedure MD Jelly Cehry Work Phone: [facility] Work Phone: Start: 11-18-2023 End: 11-18-2023 Departed Referred MD Jelly Chery Work Phone: [facility] [place] Work Phone: Start: 11-18-2023 End: 11-18-2023 ambulatory MD Jelly Chery Work Phone: [facility] Work Phone: Start: 11-18-2023 End: 11-18-2023 Patient encounter procedure MD Jelly Chery Work Phone: [facility] Work Phone: Start: 10-30-2023 End: 10-30-2023 ambulatory MD Jelly Chery Work Phone: [facility] Work Phone: Start: 10-30-2023 End: 10-30-2023 Patient encounter procedure MD Jelly Chery Work Phone: [facility] Work Phone: Start: 10-20-2023 End: 10-20-2023 ambulatory JELLY CHERY Not Available Start: 10-13-2023 End: 10-13-2023 ambulatory MD Jelly Chery Work Phone: [facility] Work Phone: Start: 10-13-2023 End: 10-13-2023 Patient encounter procedure MD Jelly Chery Work Phone: [facility] Work Phone: Start: 10-01-2023 End: 10-01-2023 ambulatory PENG OLIVARES Not Available Start: 09-29-2023 End: 09-29-2023 ambulatory MD Jelly Chery Work Phone: [facility] Work Phone: Start: 09-29-2023 End: 09-29-2023 Patient encounter procedure MD Jelly Chery Work Phone: [facility] [place] Work Phone: Start: 09-07-2023 End: 09-07-2023 ambulatory MD Jelly Chery Work Phone: [facility] Work Phone: Start: 09-07-2023 End: 09-07-2023 Patient encounter procedure MD Jelly Chery Work Phone: [facility] Work Phone: Start: 07-27-2023 End: 07-27-2023 ambulatory Simone Bahena Facility:[facility] Start: 07-27-2023 End: 07-27-2023 Patient encounter procedure MD Jelly Chery Work Phone: [facility] Work Phone: Start: 07-22-2023 End: 07-22-2023 ambulatory SARAH PELLETIER Not Available Start: 07-13-2023 End: 07-13-2023 ambulatory JELLY CHERY Not Available Start: 07-05-2023 End: 07-05-2023 Office outpatient visit 25 minutes Rad Sims DO Work Phone: [facility] Comment on above: Recurrent acute supp urative otitis media without spontaneous rupture of tympanic membrane of both sides (Primary Dx); Pharyngitis, unspecified etiology Start: 07-05-2023 End: 07-05-2023 ambulatory RAD SIMS Not Available Start: 06-29-2023 End: 06-30-2023 ambulatory MIGUEL ANG Facility:[facility] Start: 06-29-2023 End: 06-29-2023 Subsequent hospital visit by physician [facility] Comment on above: Right hand pain [[id number] .641] Start: 06-29-2023 End: 06-29-2023 Patient encounter procedure Miguel Ang PA-C Work Phone: Plastic Surgery Comment on above: Right hand pain (Jazzmine chase Dx) Start: 06-18-2023 End: 06-18-2023 ambulatory JASON L TADEO Not Available Start: 06-09-2023 End: 06-09-2023 ambulatory PAWAN DASH Not Available Start: 05-23-2023 End: 05-23-2023 ambulatory PAWAN DASH Not Available Start: 05-07-2023 End: 05-07-2023 ambulatory JENNIFER BYERS Not Available Start: 04-20-2023 End: 04-20-2023 ambulatory JELLY CHERY Not Available Start: 04-03-2023 End: 04-03-2023 Patient encounter procedure MD Jelly Chery Work Phone: [facility] Start: 04-03-2023 End: 04-03-2023 ambulatory MD Jelly Chery Work Phone: [facility] Work Phone: Start: 02-24-2023 End: 02-25-2023 ambulatory MARISA SMALLWOOD [facility] Start: 02-17-2023 ambulatory JAISON PETIT [facility] Start: 01-11-2023 End: 01-11-2023 Emergency department patient visit MD Jelly Chery Work Phone: [facility] Work Phone: Start: 10-17-2022 End: 10-17-2022 ambulatory Nasreen Delaney Other [employer] Other Start: 10-17-2022 Office outpatient vi sit 15 minutes Nasreen Delaney [facility] Start: 07-19-2022 End: 07-20-2022 Emergency department patient visit Roman Syed [facility] Start: 07-08-2022 End: 07-08-2022 Emergency department patient visit Rj Pink [facility] Start: 06-23-2022 End: 06-23-2022 ambulatory Asim Palma Other [employer] Other Start: 06-23-2022 Office outpatient vi sit 15 minutes Asim [place] [facility] Start: 06-18-2022 End: 06-18-2022 ambulatory Belia Aguero Other [employer] Other Start: 06-18-2022 Office outpatient vi sit 15 minutes Belia Aguero [facility] Start: 05-23-2022 End: 05-23-2022 ambulatory Asim [place] Other [employer] Other Start: 05-23-2022 Telephone encounter Asim Minerva [facility] Start: 04-16-2022 End: 04-16-2022 ambulatory Belia Aguero Other [employer] Other Start: 04-16-2022 Office outpatient vi sit 15 minutes Belia Aguero [facility] Start: 03-21-2022 End: 03-22-[address] HAWA WHELAN [employer] Other Start: 03-21-2022 Office outpatient vi sit 15 minutes Belia Vázquez [facility] Start: 11-17-2021 End: 11-17-[address] JULY QUEVEDO Facility:[facility] Start: 07-20-2021 End: 07-20-2021 ambulatory Asim Minerva Other [employer] Other Start: 07-20-2021 Office outpatient vi sit 25 minutes Asim [place] [facility] Start: 03-29-2021 End: 03-30-2021 ambulatory CONCHITA MEANS Facility:[facility] Start: 12-07-2020 End: 12-08-2020 Emergency department patient visit SIMONE MANLEY [facility] Start: 12-07-2020 End: 12-08-2020 Emergency department patient visit Simone Manley MD Work Phone: [facility] Comment on above: Trigger point with b ack pain (Primary Dx); Hepatic steatosis Procedures Date Procedure Procedure Detail Performing Clinician Start: 03-10-2024 Urnls dip stick/tablet rgnt non-auto w/o micrscp Donovan Vielka DO Work Phone: Start: 01-11-2024 Cytp cerv/vag auto thin layer prep mnl screen Matti Sims DO Work Phone: Start: 11-18-2023 Urine culture MD Jelly Chery Work Phone: Start: 09-29-2023 Plain X-ray of right hand MD Jelly Chery Work Phone: Start: 07-05-2023 End: 07-05-2023 Infectious agent dna/rna influenza 1st 2 types Darell Jama DO Work Phone: Start: 06-29-2023 Radex hand minimum 3 views Brianda Cartwright MD Work Phone: Start: 01-07-2023 End: 04-14-2023 History of tonsillectomy History of tonsillectomy Rad gorman DO Work Phone: Start: 07-07-2022 Tonsillectomy Roman Syed Start: 12-07-2020 Ct abdomen & pelvis w/o contrast material Mo'Mariana Barr MD Work Phone: Start: 12-07-2020 Urinalysis microscopic only Mo'Mariana Barr MD Work Phone: Start: 12-07-2020 Urnls dip stick/tablet rgnt auto w/o microscopy Mo'Mariana Barr MD Work Phone: Start: 12-07-2020 Basic metabolic panel calcium total Mo'Mariana Barr MD Work Phone: None (qualifier value) Rj Pink Plan of Treatment Date Care Activity Detail Author Start: 11-10-2029 DTaP/Tdap/Td vaccine (9 - Td or Tdap) DTaP/Tdap/Td vaccine (9 - Td or Tdap) [facility] Work Phone: Start: 11-10-2029 Urine microalbumin profile DTaP,Tdap,Td Vaccine (9 - Td or Tdap) [facility] Start: 01-11-2025 End: 01-11-2025 Patient encounter procedure 01/11/2025 10:45 AM EDT Office Visit [facility] [address] [place] [id number] Matti Sims, [address] [place] [address] [facility] Start: 10-18-2024 End: 10-18-2024 Patient encounter procedure 10/18/2024 8:15 AM EDT Office Visit [facility] [address] [place] [id number] Jelly Chery MD [address] [place] [address] [facility] Start: 04-11-2024 End: 04-11-2024 Patient encounter procedure 04/11/2024 9:50 AM EST Routine [facility] [address] [place] [id number] Donovan Vora, DO [address] [place] [address] [facility] Start: 03-28-2024 End: 03-28-2025 XR Radius and Ulna - right 2 Views XR forearm 2 views right Imaging STAT Injury of right wrist, initial encounter Right forearm pain Expected: 03/28/2024, Expires: 03/28/2025 [facility] Comment on above: Expected: 03/28/2024 , Expires: 03/28/2025 Start: 03-28-2024 End: 03-28-2025 XR Wrist - right 3 Views XR wrist 3+ views right Imaging STAT Injury of right wrist, initial encounter Right wrist pain Expected: 03/28/2024, Expires: 03/28/2025 [facility] Work Phone: Comment on above: Expected: 03/28/2024 , Expires: 03/28/2025 Start: 03-10-2024 End: 03-10-2025 ABO/Rh ABO/Rh Lab Routine Missed menses , unspecified gestational age Expected: 03/10/2024 (Approximate), Expires: 03/10/2025 [facility] Comment on above: Expected: 03/10/2024 (Approximate), Expires: 03/10/2025 Start: 03-10-2024 End: 03-10-2025 Blood type and Indirect antibody screen panel - Blood Type and screen Lab Routine Missed menses , unspecified gestational age Expected: 03/10/2024 (Approximate), Expires: 03/10/2025 [facility] Work Phone: Comment on above: Expected: 03/10/2024 (Approximate), Expires: 03/10/2025 Start: 03-10-2024 End: 03-10-2025 Drugs of abuse panel - Urine by Screen method Rapid drug screen, urine Lab Routine , unspecified gestational age Encounter for supervision of normal first in first trimester Expected: 03/10/2024 (Approximate), Expires: 03/10/2025 [facility] Comment on above: Expected: 03/10/2024 (Approximate), Expires: 03/10/2025 Start: 03-10-2024 End: 03-10-2025 US Pelvis transvaginal US OB transvaginal Imaging Routine Missed menses Expected: 03/10/2024 (Approximate), Expires: 03/10/2025 [facility] Comment on above: Expected: 03/10/2024 (Approximate), Expires: 03/10/2025 Start: 01-24-2024 Influenza vaccination Influenza Vacc ine (#1) [facility] Start: 01-11-2024 End: 01-11-2024 Patient encounter procedure 01/11/2024 11:00 AM EDT [facility] [address] [place] [id number] Matti Sims DO [address] [place] [address] [facility] Start: 11-18-2023 Bacteria identified in Urine by Culture [facility] Start: 11-18-2023 [facility] Start: 10-20-2023 End: 10-20-2023 Patient encounter procedure 10/20/2023 8:15 AM EDT Office Visit [facility] [address] [place] [address] Jelly Chery MD [address] [place] [address] [facility] Start: 09-29-2023 Plain X-ray of right hand XR hand RT min 3V* [facility] Start: 09-29-2023 XR Hand - right GE 3 Views [facility] Start: 05-25-2023 Depression Assessment [facility] Start: 01-23-2023 Covid-19 Vaccine ( season) Covid-19 Vaccine ( season) [facility] Start: 01-23-2023 Influenza vaccination Influenza Vacc ine (#1) [facility] Start: 01-23-2021 Influenza vaccination Flu vaccine (# 1) [facility] Phone: Start: 2018 Screening for malign ant neoplasm of cervix [facility] Start: 2015 Hepatitis C screening Hepatitis C Sc wilmer [facility] Start: 2015 HIV screening HIV Screening [facility] Start: 2013 Screening for Chlamy pam trachomatis Chlamydia screen [facility] Phone: Start: 02-19-2012 HIV screening HIV screen [facility] Work Phone: Start: 2011 Peds To Adult Transition Annual Assessment Peds To Adult Transition Annual Assessment [facility] Start: 2009 Peds To Adult Transition Initial Discussion Peds To Adult Transition Initial Discussion [facility] Start: 2003 Pneumococcal vaccination Pneumococcal Vaccine (1 of 2 - PCV) [facility] Start: 1998 Varicella vaccine (1 of 2 - 2-dose childhood series) Varicella vaccine (1 of 2 - 2-dose childhood series) [facility] Phone: Start: 1997 Hepatitis C screening Hepatitis C sc samirn [facility] Phone: Atopobium vaginae DN A [Presence] in Vaginal fluid by CRYSTAL with probe detection [facility] Bacteria identified in Urine by Culture Urine culture Microbiology Routine Missed menses Ordered: 03/10/2024 [facility] Comment on above: Ordered: 03/10/2024 Bacterial vaginosis associated bacterium 2 DNA [Presence] in Vaginal fluid by CRYSTAL with probe detection [facility] CBC W Auto Different ial panel - Blood CBC and differential Lab Routine Missed menses , unspecified gestational age Ordered: 03/10/2024 [facility] Comment on above: Ordered: 03/10/2024 Hemoglobin A1c/Hemoglobin.total in Blood Hemoglobin A1c Lab Routine Missed menses , unspecified gestational age Ordered: 03/10/2024 [facility] Comment on above: Ordered: 03/10/2024 Hepatitis B virus surface Ag [Presence] in Serum or Plasma by Immunoassay Hepatitis B surface antigen Lab Routine Missed menses , unspecified gestational age Ordered: 03/10/2024 [facility] Comment on above: Ordered: 03/10/2024 Hepatitis C virus Ab [Presence] in Serum or Plasma by Immunoassay Hepatitis C antibody Lab Routine Missed menses , unspecified gestational age Ordered: 03/10/2024 [facility] Comment on above: Ordered: 03/10/2024 HIV-1/HIV-2 antigen/antibody combination immunoassay HIV-1 and HIV-2 antibodies Lab Routine Missed menses , unspecified gestational age Ordered: 03/10/2024 [facility] Comment on above: Ordered: 03/10/2024 Megasphaera sp type 1 DNA [Presence] in Vaginal fluid by CRYSTAL with probe detection [facility] Patient Education Outer Ear Infection ED [facility] Work Phone: Patient referral [facility] Work Phone: Reagin Ab [Presence] in Serum by RPR RPR Lab Routine Missed menses , unspecified gestational age Ordered: 03/10/2024 [facility] Comment on above: Ordered: 03/10/2024 Rubella antibody, IgG Rubella an tibody, IgG Lab Routine Missed menses , unspecified gestational age Ordered: 03/10/2024 [facility] Comment on above: Ordered: 03/10/2024 End: 06-29-2024 XR HAND GENERAL 3V PA/LAT/OBL RIGHT XR HAND GENERAL 3V PA/LAT/OBL RIGHT Radiology Routine Right hand pain Once per week for 10 Occurrences starting 06/29/2023 until 06/29/2024, 1 completed [facility] Work Phone: Comment on above: Once per week for 10 Occurrences starting 06/29/2023 until 06/29/2024, 1 completed Immunizations Immunization Date Immunization Notes Care Provider Fa [facility] 02-24-2022 Influenza, injectabl e, Madin Anali Canine Kidney, preservative free, quadrivalent Rad Sims DO Work Phone: [facility] 02-24-2022 influenza virus vacc ine, unspecified formulation Xr A21 [facility] 02-22-2021 influenza, injectabl e, quadrivalent, contains preservative Rad Sims DO Work Phone: [facility] 09-04-2020 COVID-19 mRNA, Comir jordan (Pfizer) MD Jelly Chery Work Phone: [facility] 08-14-2020 COVID-19 mRNA Comrock ortega (Pfizer) MD Jelly Chery Work Phone: [facility] 11-11-2019 tetanus toxoid, redu maryanne diphtheria toxoid, and acellular pertussis vaccine, adsorbed MD Jelly Chery Work Phone: [facility] 05-12-2017 tetanus toxoid, redu maryanne diphtheria toxoid, and acellular pertussis vaccine, adsorbed Rj Pink [facility] 12-19-2016 hepatitis A vaccine, adult dosage Rad Bethany DO Work Phone: [facility] 12-19-2016 Human Papillomavirus 9-valent vaccine Rad Bethany DO Work Phone: [facility] 12-19-2016 meningococcal B vacc ine, recombinant, OMV, adjuvanted Rda Sims DO Work Phone: [facility] 08-22-2016 Human Papillomavirus 9-valent vaccine Rad Sims DO Work Phone: [facility] 08-22-2016 meningococcal B vacc ine, recombinant, OMV, adjuvanted Rad Sims DO Work Phone: [facility] 08-22-2016 meningococcal polysaccharide (groups A, C, Y and W-135) diphtheria toxoid conjugate vaccine (MCV4P) Rad Sims DO Work Phone: [facility] 06-19-2016 hepatitis A vaccine, adult dosage Rad Sims DO Work Phone: [facility] 06-19-2016 Human Papillomavirus 9-valent vaccine Rad Sims DO Work Phone: [facility] 12-13-2012 meningococcal polysaccharide (groups A, C, Y and W-135) diphtheria toxoid conjugate vaccine (MCV4P) Rad Sims DO Work Phone: [facility] 12-13-2012 tetanus toxoid, redu maryanne diphtheria toxoid, and acellular pertussis vaccine, adsorbed Rad Sims DO Work Phone: [facility] 04-11-2009 novel influenza-H1N1 -09, preservative-free, injectable Rad Sims DO Work Phone: [facility] 02-15-2002 diphtheria, tetanus toxoids and acellular pertussis vaccine, unspecified formulation Rad Sims DO Work Phone: [facility] 02-15-2002 measles, mumps and rubella virus vaccine Rad Sims DO Work Phone: [facility] 02-15-2002 poliovirus vaccine, inactivated Rad Sims DO Work Phone: [facility] 05-22-1998 diphtheria, tetanus toxoids and acellular pertussis vaccine, unspecified formulation Rad Sims DO Work Phone: [facility] 05-22-1998 haemophilus influenz ae type b vaccine, conjugate unspecified formulation Rad Bethany DO Work Phone: [facility] 05-22-1998 trivalent poliovirus vaccine, live, oral Rad Sims DO Work Phone: [facility] 02-20-1998 measles, mumps and rubella virus vaccine Rad Bethany DO Work Phone: [phone] [place] [address] 1997 diphtheria, tetanus toxoids and acellular pertussis vaccine, unspecified formulation Rad Sims DO Work Phone: [phone] [address] 1997 haemophilus influenz ae type b vaccine, conjugate unspecified formulation Rad Sims DO Work Phone: [facility] 1997 hepatitis B vaccine, pediatric or pediatric/adolescent dosage Rad Sims DO Work Phone: [phone] [place] [address] 1997 diphtheria, tetanus toxoids and acellular pertussis vaccine, unspecified formulation Rad Sims DO Work Phone: [facility] 1997 haemophilus influenz ae type b vaccine, conjugate unspecified formulation Rad Sims DO Work Phone: [facility] 1997 poliovirus vaccine, inactivated Rad Sims DO Work Phone: [facility] 1997 diphtheria, tetanus toxoids and acellular pertussis vaccine, unspecified formulation Rad Sims DO Work Phone: [phone] [place] [address] 1997 haemophilus influenz ae type b vaccine, conjugate unspecified formulation Rad Sims DO Work Phone: [facility] 1997 poliovirus vaccine, inactivated Rad Sims DO Work Phone: [facility] 1997 hepatitis B vaccine, pediatric or pediatric/adolescent dosage Rad Sims DO Work Phone: [facility] 1997 hepatitis B vaccine, pediatric or pediatric/adolescent dosage Rad Sims DO Work Phone: [facility] Payers Date Payer Category Payer Medicaid [id number] 2022 Private Health Insurance [employer] [id number] 2022 Unknown [id number]. 1.13.159.2. [id number] 2022 Blue Cross Blue Shield [id number] 1997 Unknown [id number] 2.16.840.1.902104.3.579.2. 175 1997 Unknown [id number] 2.16.840.1.474702.3.579.2. 593 1997 Unknown [id number] 2.16.840.1.937765.3.579.2. 593 1997 Unknown [id number] 2.16.840.1.314159.3.579.2. 93 1997 Unknown [id number] 2.16.840.1.056089.3.579.2. 727 1997 Unknown [id number] 2.16.840.1.176309.3.579.2. 727 1997 Unknown [id number] 2.16.840.1.668979.3.579.2. 1259 1997 Unknown [id number] 2.16.840.1.129449.3.579.2. 1259 1997 Unknown [id number] 2.16.840.1.591898.3.579.2. 1258 1997 Unknown [id number] 2.16.840.1.432296.3.579.2. 1258 1997 Unknown [id number] 2.16.840.1.542492.3.579.2. 1258 1997 Unknown [id number] 2.16.840.1.093272.3.579.2. 1258 1997 Unknown [id number] 2.16.840.1.248740.3.579.2. 1258 1997 Unknown [id number] 2.16.840.1.293122.3.579.2. 1258 1997 Unknown [id number] 2.16.840.1.355157.3.579.2. 1258 1997 Unknown [id number] 2.16.840.1.516481.3.579.2. 1258 1997 Unknown [id number] 2.16.840.1.346993.3.579.2. 1258 1997 Unknown [id number] 2.16.840.1.311380.3.579.2. 1258 1997 Unknown [id number] 2.16.840.1.036913.3.579.2. 1258 1997 Unknown [id number] 2.16.840.1.505308.3.579.2. 1258 1997 Unknown [id number] 2.16.840.1.585151.3.579.2. 9 1959 Self-pay 1959 Unknown [id number] 1.2.840.629413.1.13.239.2. 7.3.828642.315 Medicaid [place] Advantage [id number] Unknown [id number] 2.16.840.1.978849.3.579.2. 593 Unknown [facility] [id number] Unknown [id number] 2.16.840.1.100668.3.579.2. 531 Unknown [id number] 2.16.840.1.659496.3.579.2. 531 Unknown [id number] 2.16.840.1.455097.3.579.2. 531 Unknown [id number] 2.16.840.1.269909.3.579.2. 531 Unknown [id number] 2.16.840.1.983980.3.579.2. 531 Social History Date Type Detail Facility Start: 12-07-2020 End: 10-21-2022 Tobacco smoking status NHIS Never smoker [facility] Comment on above: Denies Start: 12-07-2020 Alcohol intake Ex-drinker (finding) [facility] Phone: Start: 1997 Sex Assigned At Not on file M [facility] Phone: Exposure to SARS-CoV -2 (event) Not sure [facility] Start: 06-29-2023 End: 01-11-2024 Sex Assigned At [facility] Tobacco [facility] Comment on above: Denies. Tobacco smoking status No Smokin g Status Entered [facility] Start: 1995 Sex Assigned At Female F [facility] Start: 06-29-2023 Tobacco smoking stat us NHIS Occasional tobacco smoker [facility] Start: 10-21-2022 End: 06-29-2023 Tobacco use and exposure Smokeless tobacco non-user [facility] Start: 06-29-2023 End: 01-11-2024 History of Social function [facility] Start: 06-29-2023 Tobacco Comment Vapes occasionally C [facility] Start: 07-05-2023 End: 03-10-2024 Alcohol intake Current drinker of alcohol (finding) [facility] How often to you hav e a drink containing alcohol? Monthly or less [facility] How many standard drinks containing alcohol do you have on a typical day? 1 or 2 [facility] How often do you hav e 6 or more drinks on 1 occasion? Never [facility] Start: 04-09-2023 Alcohol Comment Once in a whil e. caffeine; 2 to 3 cups of coffee per day [facility] Start: 07-27-2023 End: 03-24-2024 Tobacco smoking status AZIS Ex-smoker (finding) [facility] How many standard drinks containing alcohol do you have on a typical day? Patient does not drink [facility] Start: 01-11-2024 Alcohol Comment Once in a while [facility] Start: 01-23-2024 [facility] Functional Status Date Assessment Result Facility 03-24-2024 Functional Status N/A [facility] 01-15-2024 Functional Status N/A [facility] 07-19-2022 Functional Status N/A [facility] 07-08-2022 Functional Status N/A [facility] Clinical Notes 07-20-2021 to 03-28-2024 Telephone Encounter - Peng Olivares NP - 03/28/2024 2:15 PM ESTTelephone Encounter - Peng Olivares NP - 03/28/2024 2:15 PM Jen Land - 03/10/2024 1:00 PM EDT Note Date & Type Note Facility 03-28-2024 Telephone encounter Note Pt fell last week. She was at ER and they did an x ray of her wrist. They recommended repeat x rays if no improvement once swelling subsided. The pain is still present and tender to movement or palpation. Bruising observed to forearm as well. Pt requesting x ray of forearm and wrist to ensure no fracture. Ordered to [facility]. She as made aware. [facility] 03-28-2024 Miscellaneous Notes Pt fell last week. She was at ER and they did an x ray of her wrist. They recommended repeat x rays if no improvement once swelling subsided. The pain is still present and tender to movement or palpation. Bruising observed to forearm as well. Pt requesting x ray of forearm and wrist to ensure no fracture. Ordered to [facility]. She as made aware. documented in this encounter [facility] 03-25-2024 Hospital Discharg e instructions Patient Education 03/24/2024 22:38:59 Wrist Sprain, Adult Wrist Sprain, Adult A wrist sprain is a stretch or tear in the strong tissues that connect the wrist bones to each other. These strong tissues are called ligaments. There are three types of wrist sprains: Grade 1. The ligament is stretched more than normal. There may be a minor amount of wrist pain. Grade 2. The ligament is partially torn. You may be able to move your wrist, but not very much. There may be a moderate amount of wrist pain. Grade 3. The ligament or ligaments are completely torn. You may find it difficult to move your wrist even a little. There may be a significant amount of wrist pain. What are the causes? This condition may be caused by using the wrist too much during sports, exercise, or work. It can also happen due to a fall or during an accident. What increases the risk? You are more likely to develop this condition if: You had a previous wrist or arm injury. You have poor wrist strength and flexibility. You play contact sports, such as football or soccer. You participate in sports that may result in a fall, such as skateboarding, biking, skiing, or snowboarding. You do not exercise regularly. You use exercise equipment that does not fit well. What are the signs or symptoms? Symptoms of this condition include: Pain in the wrist, arm, or hand. Swelling or bruised skin near the wrist, hand, or arm. The skin may look yellow or blue. Stiffness or trouble moving the hand. Hearing a noise, like a pop or a snap, at the time of injury, or feeling a tear at the time of the injury. A warm feeling in the skin around the wrist. How is this diagnosed? This condition is diagnosed with a physical exam. Sometimes an X-ray is taken to make sure a bone did not break. You may also have an MRI of your wrist to check for torn ligaments. How is this treated? This condition is treated by resting and applying ice to your wrist. Additional treatment may include: Taking medicine for pain and inflammation. Wearing a splint, brace, or cast for a short period of time to keep your wrist from moving (immobilized). Doing exercises to strengthen and stretch your wrist. Having surgery. This may be done if the ligament is completely torn. Follow these instructions at home: If you have a splint or brace: Wear the splint or brace as told by your health care provider. Remove it only as told by your health care provider. Loosen it if your fingers tingle, become numb, or turn cold and blue. Keep it clean. If the splint or brace is not waterproof: ?Do not let it get wet. ?Cover it with a watertight covering when you take a bath or a shower. If you have a cast: Do not put pressure on any part of the cast until it is fully hardened. This may take several hours. Do not stick anything inside the cast to scratch your skin. Doing that increases your risk of infection. Check the skin around the cast every day. Tell your health care provider about any concerns. You may put lotion on dry skin around the edges of the cast. Do not put lotion on the skin underneath the cast. Keep it clean. If the cast is not waterproof: ?Do not let it get wet. ?Cover it with a watertight covering when you take a bath or shower. Managing pain, stiffness, and swelling If directed, put ice on the injured area. To do this: ?If you have a removable splint or brace, remove it as told by your health care provider. ?Put ice in a plastic bag. ?Place a towel between your skin and the bag or between the splint or cast and the bag. ?Leave the ice on for 20 minutes, 2 3 times a day. ?Remove the ice if your skin turns bright red. This is very important. If you cannot feel pain, heat, or cold, you have a greater risk of damage to the area. Move your fingers often to reduce stiffness and swelling. Raise (elevate) the injured area above the level of your heart while you are sitting or lying down. Activity Rest your wrist as told by your health care provider. Do not do things that cause pain. Ask your health care provider when it is safe to drive if you have a splint, brace, or cast on your wrist. Do exercises as told by your health care provider. Return to your normal activities as told by your health care provider. Ask your health care provider what activities are safe for you. General instructions Take uivb-ipq-lrycvkt and prescription medicines only as told by your health care provider. Do not use any products that contain nicotine or tobacco, such as cigarettes, e-cigarettes, and chewing tobacco. These can delay healing. If you need help quitting, ask your health care provider. Keep all follow-up visits. This is important. Contact a health care provider if: Your pain, bruising, or swelling gets worse. Your skin becomes red, gets a rash, or has open sores. Your pain does not get better or it gets worse. Get help right away if: You have a new or sudden sharp pain in the hand, arm, or wrist. You have tingling or numbness in your hand. Your fingers turn white, very red, or cold and blue. You cannot move your fingers. Summary A wrist sprain is damage to ligaments in your wrist. Wrist sprains can range from mild to severe. Return to your normal activities as told by your health care provider. Ask your health care provider what activities are safe for you. You may need to wear a splint, brace, or cast for a short period of time. This information is not intended to replace advice given to you by your health care provider. Make sure you discuss any questions you have with your health care provider. Document Revised: 09/17/2020 Document Reviewed: 09/17/2020 [employer] Patient Education 2023 [employer]. Follow Up Care 03/24/2024 18:46:04 With:JELLY CHERY Address: [address] [place], [place] [id number]- Business (1) When:03/27/2024 [facility] 03-24-2024 Note ED Patient Education Note Orthopedics Wrist Sprain, Adult A wrist sprain is a stretch or tear in the strong tissues that connect the wrist bones to each other. These strong tissues are called ligaments. There are three types of wrist sprains: ??? Grade 1. The ligament is stretched more than normal. There may be a minor amount of wrist pain. ??? Grade 2. The ligament is partially torn. You may be able to move your wrist, but not very much. There may be a moderate amount of wrist pain. ??? Grade 3. The ligament or ligaments are completely torn. You may find it difficult to move your wrist even a little. There may be a significant amount of wrist pain. What are the causes? This condition may be caused by using the wrist too much during sports, exercise, or work. It can also happen due to a fall or during an accident. What increases the risk? You are more likely to develop this condition if: ??? You had a previous wrist or arm injury. ??? You have poor wrist strength and flexibility. ??? You play contact sports, such as football or soccer. ??? You participate in sports that may result in a fall, such as skateboarding, biking, skiing, or snowboarding. ??? You do not exercise regularly. ??? You use exercise equipment that does not fit well. What are the signs or symptoms? Symptoms of this condition include: ??? Pain in the wrist, arm, or hand. ??? Swelling or bruised skin near the wrist, hand, or arm. The skin may look yellow or blue. ??? Stiffness or trouble moving the hand. ??? Hearing a noise, like a pop or a snap, at the time of injury, or feeling a tear at the time of the injury. ??? A warm feeling in the skin around the wrist. How is this diagnosed? This condition is diagnosed with a physical exam. Sometimes an X-ray is taken to make sure a bone did not break. You may also have an MRI of your wrist to check for torn ligaments. How is this treated? This condition is treated by resting and applying ice to your wrist. Additional treatment may include: ??? Taking medicine for pain and inflammation. ??? Wearing a splint, brace, or cast for a short period of time to keep your wrist from moving (immobilized). ??? Doing exercises to strengthen and stretch your wrist. ??? Having surgery. This may be done if the ligament is completely torn. Follow these instructions at home: If you have a splint or brace: ??? Wear the splint or brace as told by your health care provider. Remove it only as told by your health care provider. ??? Loosen it if your fingers tingle, become numb, or turn cold and blue. ??? Keep it clean. ??? If the splint or brace is not waterproof: ? Do not let it get wet. ? Cover it with a watertight covering when you take a bath or a shower. If you have a cast: ??? Do not put pressure on any part of the cast until it is fully hardened. This may take several hours. ??? Do not stick anything inside the cast to scratch your skin. Doing that increases your risk of infection. ??? Check the skin around the cast every day. Tell your health care provider about any concerns. ??? You may put lotion on dry skin around the edges of the cast. Do not put lotion on the skin underneath the cast. ??? Keep it clean. ??? If the cast is not waterproof: ? Do not let it get wet. ? Cover it with a watertight covering when you take a bath or shower. Managing pain, stiffness, and swelling ??? If directed, put ice on the injured area. To do this: ? If you have a removable splint or brace, remove it as told by your health care provider. ? Put ice in a plastic bag. ? Place a towel between your skin and the bag or between the splint or cast and the bag. ? Leave the ice on for 20 minutes, 2?3 times a day. ? Remove the ice if your skin turns bright red. This is very important. If you cannot feel pain, heat, or cold, you have a greater risk of damage to the area. ??? Move your fingers often to reduce stiffness and swelling. ??? Raise (elevate) the injured area above the level of your heart while you are sitting or lying down. Activity ??? Rest your wrist as told by your health care provider. Do not do things that cause pain. ??? Ask your health care provider when it is safe to drive if you have a splint, brace, or cast on your wrist. ??? Do exercises as told by your health care provider. ??? Return to your normal activities as told by your health care provider. Ask your health care provider what activities are safe for you. General instructions ??? Take rovd-axu-tvkdarr and prescription medicines only as told by your health care provider. ??? Do not use any products that contain nicotine or tobacco, such as cigarettes, e-cigarettes, and chewing tobacco. These can delay healing. If you need help quitting, ask your health care provider. ??? Keep all follow-up visits. This is important. Contact a health care provider if: ??? Your pain, bruising, or swelling gets worse (more content not included)... [facility] 03-10-2024 History of Presen t illness Narrative Reason for Appointment: Patient ID: Devorah Shelton is a 29 y.o. female who presents for Initial Visit Patient presents today for a Nurse OB Intake appointment. Patient is 8w5d with a Estimated Date of Delivery: 10/15/24 OB History Para Term AB Living 1 0 0 0 0 0 SAB IAB Ectopic Multiple Live Births 0 0 0 0 0 # Outcome Date GA Lbr Jeevan/2nd Weight Sex Type Anes PTL Lv 1 Current Current Medications: has a current medication list which includes the following prescription(s): mv-min-fe fum-fa-dha. Medical History: Active Ambulatory Problems Diagnosis Date Noted Allergic rhinitis 10/18/2022 Generalized anxiety disorder (CMS/HCC) 10/18/2022 Hyperbilirubinemia 10/20/2022 Moderate episode of recurrent major depressive disorder (CMS/HCC) 01/07/2023 NAFLD (nonalcoholic fatty liver disease) 01/07/2023 Abnormal MRI 01/11/2024 Ankle tendinitis 01/11/2024 Atopic dermatitis 01/11/2024 Dog bite of hand 02/17/2023 Neuropathy 01/11/2024 Resolved Ambulatory Problems Diagnosis Date Noted Fatty liver 10/20/2022 Chronic fatigue 01/07/2023 Chronic tonsillitis 01/07/2023 Current smoker 01/07/2023 Dysphagia 01/07/2023 History of tonsillectomy 01/07/2023 Mild persistent asthma without complication (CMS/HCC) 01/07/2023 Postoperative pain 01/07/2023 Recurrent streptococcal tonsillitis 01/07/2023 Past Medical History: Diagnosis Date Asthma (CMS/HCC) Moderate single current episode of major depressive disorder (HCC) (CMS/HCC) Ovarian cyst 2016 Plantar verruca Tinnitus, bilateral Family History Problem Relation Name Age of Onset Diabetes Mother Ashleigh Hypertension Mother Ashleigh Migraines Mother Ashleigh Mental illness Mother Ashleigh Hyperlipidemia Mother Ashleigh Stroke Mother Ashleigh No Known Problems Father unknown Asthma Maternal Grandmother Shannon Hypertension Maternal Grandmother Shannon Lung cancer Maternal Grandfather Garret Diabetes Maternal Grandfather Garret No Known Problems Paternal Grandmother unknown No Known Problems Paternal Grandfather unknown Heart disease Maternal Great-Grandmother Diabetes Maternal Great-Grandmother Social History Tobacco Use Smoking status: Never Smokeless tobacco: Never Vaping Use Vaping status: Never Used Substance Use Topics Alcohol use: Yes Comment: Once in a while Drug use: Never Past Surgical History: Procedure Laterality Date ADENOIDECTOMY W/ MYRINGOTOMY AND TUBES 2006 TONSILLECTOMY 07/07/2022 Allergies Allergen Reactions Amoxicillin-Pot Clavulanate Diarrhea Clavulanic Acid GI intolerance Penicillin G Sodium Other Reaction(s): vomiting, diarrhea Vitals: Estimated body mass index is 39.78 kg/m as calculated from the following: Height as of 01/11/24: 5' 2 . Weight as of this encounter: 217 lb 8 oz. BP: 114/72 Patient's last menstrual period was 01/09/2024. Assessment/Plan Diagnoses and all orders for this visit: Missed menses - Type and screen; Future - ABO/Rh; Future - CBC and differential - Hemoglobin A1c - RPR - Rubella antibody, IgG - Hepatitis B surface antigen - Hepatitis C antibody - HIV-1 and HIV-2 antibodies - Urine culture - US OB transvaginal; Future - POCT , urine manually resulted - POCT urinalysis dipstick manually resulted , unspecified gestational age - Type and screen; Future - ABO/Rh; Future - CBC and differential - Hemoglobin A1c - RPR - Rubella antibody, IgG - Hepatitis B surface antigen - Hepatitis C antibody - HIV-1 and HIV-2 antibodies - Rapid drug screen, urine; Future Encounter for supervision of normal first in first trimester - Rapid drug screen, urine; Future Nurse Note: OB Intake: Patient presents today for first OB visit. Patients history has been reviewed in great detail including any potential risks. Patient signed consent forms and patient desires testing in both trimesters. Patient currently has no complaints and has been advised to drink 6-8 glasses of water a day, eat no raw or undercooked meat, and stay away from [facility]. Patient has also been advised to not change litter boxes and eat 6 small meals a day. Patient has been consulted regarding the do's and don'ts of . Patient was given labs and all questions and concerns were answered. Follow Up: Patient is to return in 4 weeks for routine OB appointment. Follow Up: Patient is to have labs drawn at directed and return to office for initial OB appointment with provider. Patient may call office as needed with any concerns or questions. Nurse Visit Completed by: Sarah Land documented in this encounter [facility] 01-16-2024 Hospital Discharg e instructions Patient Education 01/15/2024 22:36:01 Musculoskeletal Pain Musculoskeletal Pain Musculoskeletal pain refers to aches and pains in your bones, joints, muscles, and the tissues that surround them. This pain can occur in any part of the body. It can last for a short time (acute) or a long time (chronic). A physical exam, lab tests, and imaging studies may be done to find the cause of your musculoskeletal pain. Follow these instructions at home: Lifestyle Try to control or lower your stress levels. Stress increases muscle tension and can worsen musculoskeletal pain. It is important to recognize when you are anxious or stressed and learn ways to manage it. This may include: ?Meditation or yoga. ?Cognitive or behavioral therapy. ?Acupuncture or massage therapy. You may continue all activities unless the activities cause more pain. When the pain gets better, slowly resume your normal activities. Gradually increase the intensity and duration of your activities or exercise. Managing pain, stiffness, and swelling Treatment may include medicines for pain and inflammation that are taken by mouth or applied to the skin. Take mrer-vlc-nsetreo and prescription medicines only as told by your health care provider. When your pain is severe, bed rest may be helpful. Lie or sit in any position that is comfortable, but get out of bed and walk around at least every couple of hours. If directed, apply heat to the affected area as often as told by your health care provider. Use the heat source that your health care provider recommends, such as a moist heat pack or a heating pad. ?Place a towel between your skin and the heat source. ?Leave the heat on for 20 30 minutes. ?Remove the heat if your skin turns bright red. This is especially important if you are unable to feel pain, heat, or cold. You may have a greater risk of getting burned. If directed, put ice on the painful area. To do this: ?Put ice in a plastic bag. ?Place a towel between your skin and the bag. ?Leave the ice on for 20 minutes, 2 3 times a day. ?Remove the ice if your skin turns bright red. This is very important. If you cannot feel pain, heat, or cold, you have a greater risk of damage to the area. General instructions Your health care provider may recommend that you see a physical therapist. This person can help you come up with a safe exercise program. If told by your health care provider, do physical therapy exercises to improve movement and strength in the affected area. Keep all follow-up visits. This is important. This includes any physical therapy visits. Contact a health care provider if: Your pain gets worse. Medicines do not help ease your pain. You cannot use the part of your body that hurts, such as your arm, leg, or neck. You have trouble sleeping. You have trouble doing your normal activities. Get help right away if: You have a new injury and your pain is worse or different. You feel numb or you have tingling in the painful area. Summary Musculoskeletal pain refers to aches and pains in your bones, joints, muscles, and the tissues that surround them. This pain can occur in any part of the body. Your health care provider may recommend that you see a physical therapist. This person can help you come up with a safe exercise program. Do any exercises as told by your physical therapist. Lower your stress level. Stress can worsen musculoskeletal pain. Ways to lower stress may include meditation, yoga, cognitive or behavioral therapy, acupuncture, and massage therapy. This information is not intended to replace advice given to you by your health care provider. Make sure you discuss any questions you have with your health care provider. Document Revised: 09/13/2020 Document Reviewed: 08/22/2020 [employer] Patient Education 2022 [employer]. Follow Up Care 01/15/2024 21:25:10 With:JELLY CHERY Address: [address] [place], [place] [id number]- [facility] (1) When:01/18/2024 Comments:To schedule follow-up appointment with your family physician if symptoms not improve in the next 2 to 3 days. Alternate Tylenol, ibuprofen, and ice as needed for pain management. Return to the ED with any worsening symptoms [facility] 01-15-2024 Note ED Patient Education Note Orthopedics Musculoskeletal Pain Musculoskeletal pain refers to aches and pains in your bones, joints, muscles, and the tissues that surround them. This pain can occur in any part of the body. It can last for a short time (acute) or a long time (chronic). A physical exam, lab tests, and imaging studies may be done to find the cause of your musculoskeletal pain. Follow these instructions at home: Lifestyle ? Try to control or lower your stress levels. Stress increases muscle tension and can worsen musculoskeletal pain. It is important to recognize when you are anxious or stressed and learn ways to manage it. This may include: ? Meditation or yoga. ? Cognitive or behavioral therapy. ? Acupuncture or massage therapy. ? You may continue all activities unless the activities cause more pain. When the pain gets better, slowly resume your normal activities. Gradually increase the intensity and duration of your activities or exercise. Managing pain, stiffness, and swelling ? Treatment may include medicines for pain and inflammation that are taken by mouth or applied to the skin. Take amqy-bwo-gwfkivu and prescription medicines only as told by your health care provider. ? When your pain is severe, bed rest may be helpful. Lie or sit in any position that is comfortable, but get out of bed and walk around at least every couple of hours. ? If directed, apply heat to the affected area as often as told by your health care provider. Use the heat source that your health care provider recommends, such as a moist heat pack or a heating pad. ? Place a towel between your skin and the heat source. ? Leave the heat on for 20?30 minutes. ? Remove the heat if your skin turns bright red. This is especially important if you are unable to feel pain, heat, or cold. You may have a greater risk of getting burned. ? If directed, put ice on the painful area. To do this: ? Put ice in a plastic bag. ? Place a towel between your skin and the bag. ? Leave the ice on for 20 minutes, 2?3 times a day. ? Remove the ice if your skin turns bright red. This is very important. If you cannot feel pain, heat, or cold, you have a greater risk of damage to the area. General instructions ? Your health care provider may recommend that you see a physical therapist. This person can help you come up with a safe exercise program. ? If told by your health care provider, do physical therapy exercises to improve movement and strength in the affected area. ? Keep all follow-up visits. This is important. This includes any physical therapy visits. Contact a health care provider if: ? Your pain gets worse. ? Medicines do not help ease your pain. ? You cannot use the part of your body that hurts, such as your arm, leg, or neck. ? You have trouble sleeping. ? You have trouble doing your normal activities. Get help right away if: ? You have a new injury and your pain is worse or different. ? You feel numb or you have tingling in the painful area. Summary ? Musculoskeletal pain refers to aches and pains in your bones, joints, muscles, and the tissues that surround them. ? This pain can occur in any part of the body. ? Your health care provider may recommend that you see a physical therapist. This person can help you come up with a safe exercise program. Do any exercises as told by your physical therapist. ? Lower your stress level. Stress can worsen musculoskeletal pain. Ways to lower stress may include meditation, yoga, cognitive or behavioral therapy, acupuncture, and massage therapy. This information is not intended to replace advice given to you by your health care provider. Make sure you discuss any questions you have with your health care provider. Document Revised: 09/13/2020 Document Reviewed: 08/22/2020 [employer] Patient Education ? 2022 [employer]. [facility] 01-15-2024 Evaluation + Plan note Extrac betty from: Title:ED Note Author:Jason Frost PA-C te:01/15/24 Hand pain, left (M79.642: Pa in in left hand) Orders: XR Hand 3+ Views Left [facility] 02-11-2024 History of Present illness Narrative* Rad Sims DO - 07/05/2023 12:25 PM EST HPI: Historian of HPI: patient Devorah Shelton is a 28 y.o. female who presents today to the Urgent Care with the following complaints and denials which have been present for 4 day(s) C/O Denies Symptom Comments [] [x] Runny Nose [x] [] Difficulty Swallowing [x] [] Sore Throat [] [x] Cough [] [x] Ear Pain [] [x] Fever [x] [] Chills [x] [] Nasal Congestion [x] [] Myalgia [] [x] Sinus Pain [] [x] Sinus Pressure Additional Comments: pt has taken capmist, sudafed, nyquil OTC medication without relief Pt admits headache. Covid Thursday, Thursday, and today have been negative. ROS: A complete system ROS was performed and negative aside from the pertinent positives noted in the HPI and PE. Physical Exam Vitals reviewed. Constitutional: Appearance: Normal appearance. She is ill-appearing. She is not toxic-appearing. HENT: Head: Normocephalic and atraumatic. Ears: Comments: Bilateral TM erythema is noted. Nose: Nose normal. Mouth/Throat: Mouth: Mucous membranes are moist. Pharynx: Oropharynx is clear. Posterior oropharyngeal erythema present. No oropharyngeal exudate. Comments: Mild postnasal drainage noted. Eyes: Extraocular Movements: Extraocular movements intact. Conjunctiva/sclera: Conjunctivae normal. Pupils: Pupils are equal, round, and reactive to light. Neck: Vascular: No carotid bruit. Cardiovascular: Rate and Rhythm: Normal rate and regular rhythm. Heart sounds: Normal heart sounds. No murmur heard. Pulmonary: Effort: Pulmonary effort is normal. Comments: Coarseness to air entry noted. Abdominal: General: Abdomen is flat. Palpations: There is no mass. Musculoskeletal: General: Normal range of motion. Cervical back: Normal range of motion and neck supple. Right lower leg: No edema. Left lower leg: No edema. Skin: General: Skin is warm and dry. Neurological: General: No focal deficit present. Mental Status: She is alert and oriented to person, place, and time. Psychiatric: Mood and Affect: Mood normal. Behavior: Behavior normal. Thought Content: Thought content normal. Diagnoses and all orders for this visit: Recurrent acute suppurative otitis media without spontaneous rupture of tympanic membrane of both sides (Primary) - sulfamethoxazole-trimethoprim (Bactrim DS) 800-160 MG per tablet; 1 po bid until all taken. Pharyngitis, unspecified etiology - STREP DNA PROBE - INFLUENZA DNA PROBE Diagnoses and all orders for this visit: Recurrent acute suppurative otitis media without spontaneous rupture of tympanic membrane of both sides (Primary) - sulfamethoxazole-trimethoprim (Bactrim DS) 800-160 MG per tablet; 1 po bid until all taken. Pharyngitis, unspecified etiology - STREP DNA PROBE - INFLUENZA DNA PROBE Take medications as prescribed. Use a humidifier when possible. May use acetaminophen or ibuprofen for pain or fever. RTO if worsening. IH Testing: The following tests were performed PCR Strep Test PCR Flu Test SEE TEST(S) ORDERS FOR RESULTS [id number] NoteHNO ID: [id number] Author: CHRISTEN DIAS RT(R) Service: Radiology Author Type: Technologist Type: Progress Notes Filed: 06/29/2023 16:27 Note Text: Radiology Service Progress Note PATIENT NAME: Devorah Shelton DATE OF SERVICE: June 29, 2023 TIME: 4:27 PM PATIENT IDENTITY VERIFICATION COMPLETED USING TWO (2) IDENTIFIERS: Name and Date of confirmed by patient verbally. FALL SCREENING: Has the patient had 2 falls in the last year or 1 fall with injury or currently using an Ambulatory Assistive Device (Walker, Cane, Wheelchair, Crutches, etc.)? No PATIENT GENDER DATA: Female. status: : No status: NO. PATIENT RELEVANT IMPLANT DATA REVIEWED: Not Applicable PATIENT PRESENTS WITH AN IMPLANTABLE OR ATTACHED TECHNICAL INSTRUCTOR COURSE DEVELOPER: No RADIOLOGY DEPARTMENT: General X-ray: Exam(s) Completed: Upper Extremity X-Ray(s): Hand, right PERIPHERAL IV DATA: Not applicable SIGNED BY: RT Lb(R) June 29, 2023 4:27 [facility]02-05-2024 NoteHNO ID: [id number] Author: MIGUEL ANG PA-C Service: ? Author Type: Physician Restaurant Kitchen Manager Type: Progress Notes Filed: 06/30/2023 08:33 Note Text: PLASTIC SURGERY DEPARTMENT [facility] Hand Surgery Note [] New referred by []self []physician.......... [] Follow-up CC: ..right hand pain............ ? HPI: Devorah is a 28 year old female who presnets after being bit by a dog in February 2023. Reports was bit at the [facility] and has never healed correctly. Patient also suffered infection of the right hand following a dog bite which she was treated with antibiotics. She reported that the infection started to move up the arm past the wrist. 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 Dominant Hand: right [x] left [] Date onset symptoms: .feb 2023 ......... Symptoms location -[x] RIGHT [] worse -[] LEFT [] worse Fingers 1[] 2[] 3[x] 4[] 5 [] 1[] 2[] 3[] 4[] 5 []. []Tingling []Numbness []Pain Symptoms location -[] RIGHT [] worse -[] LEFT [] worse Hand []Radial []volar [] ulnar [] dorsal []Radial []volar [] ulnar [] dorsal wrist []Radial []volar [] ulnar [] dorsal []Radial []volar [] ulnar [] dorsal forearm []Radial []volar [] ulnar [] dorsal []Radial []volar [] ulnar [] dorsal elbow []Radial []volar [] ulnar [] dorsal []Radial []volar [] ulnar [] dorsal arm [] [] shoulder [] [] neck [] [] []Tingling []Numbness []Pain Overall PAIN Now 0[] 1[] 2[] 3[] 4[] 5[] 6[] 7[] 8[] 9[] 10[] Average 0[] 1[] 2[] 3[] 4[] 5[] 6[] 7[] 8[] 9[] 10[] Rest 0[] 1[] 2[] 3[] 4[] 5[] 6[] 7[] 8[] 9[] 10[] Function 0[] 1[] 2[] 3[] 4[] 5[] 6[] 7[] 8[] 9[] 10[] Quality []sharp []dull []aching []sore []taut []pulled []torsion []shooting []pricking []pressing []lacerating []pinching []squeezing []drilling []spasm [] throbbing []burning []cramping []cutting []heavy []itchy []radiating [] electrical []stinging [] cold intolerance History of peripheral nerve compressions: Tingling or numbness yes [] no [] right [] Left [] 1[] 2[] 3[] 4[] 5[] Previous carpal tunnel syndrome yes [] no [] right [] Left [] Previous cubital tunnel syndrome yes [] no [] right [] Left [] Associated Signs/Symptoms Swelling [x] Bruising [] Stiffness [] Weakness [x] Pain? []same [x]better []worse over time Intervention/Prior Treatment: []no [x]yes [x]Decrease activity level and using heat/ ice []PT/OT,chiropractic treatments, or medically directed home exercise program for..........weeks in the last..........months (date started:...........) [x]Medications []Steroid injection []Splint/cast []Surgery............... No results found for: HBA1C Last 10 Encounter BP Readings: Date: BP: 06/29/2023 121/67 No flowsheet data found. No flowsheet data found. YES NO Smoking, vaping, nicotine, cannabis [x] [] Cigarettes/ day.... ? Hormone replacement (contraceptive, post menopause hormone treatment) [] [x] Medication.... Diabetes [] [x] []Type 1? []Type 2 ?Last A1c:..... Systemic inflammatory diseases [] [] []RA []Gout []Other... Hypertension [] [x] Meds:....... Heart disease or pacemaker [] [x] ............ Family history blood clots [] [] Personal history blood clots [] [] Anticoagulation (aspirin, coumadin, xarelto,etc) [] [x] What........... Reason:........... Immunosuppressants (steroid, biologic meds infusion, etc) [] [x] What........... Reason:........... Upper extremity AV fistula (dialysis) or vessels injury or disease [] [] Overhead activities [x] [] Cervical problems [] [] []C3 []C4 []C5 []C6 []C7 []C8 []T1 []Conservative []Fusion []Discectomy []Other... Pt AGAINST blood transfusion? [] [] ROS: All negative except for: GENERAL: []weight loss []malaise []fevers HEENT: []frequent or significant headaches []changes in hearing []change in vision []nose bleeds []other nasal problems NECK: []lumps []goiter []pain and significant neck swelling RESPIRATORY: []cough []hemoptysis []wheezing []COPD []dyspnea []shortness of breath CARDIOVASCULAR: []chest pain []leg swelling []hypertension []CHF []palpitations GI: []nausea []vomiting []diarrhea MUSCULOSKELETAL: see HPI SKIN: [] skin lesions []rash []itching PSYCH: []sleep disturbance []mood disorder []recent psychosocial stressors HEMATOLOGY/LYMPHOLOGY: []prolonged bleeding []bruising easily []swollen nodes ENDOCRINE: []cold intolerance []heat intolerance []polyuria []polydipsia []goiter Objective: BP 121/67 Pulse 68 Temp 36.3 ?C (97.3 ?F) No past medical history on file. No past surgical history on file. Current Outpatient Medications Medication Sig Dispense Refill DULoxetine (CYMBALTA) 30 mg capsule Take 30 mg by mouth. No current facility-administered medications for this visit. ALLERGIES Allergen Reactions Penicillins GI Upset, Rash There is no height or weight on file to calculate BMI. There is no height or weight on file to calculate BSA. AXEL (more content not included)...[facility]02-05-2024 History of Present illness Narrative* Christen Dias RT(R) - 06/29/2023 4:30 PM EST Radiology Service Progress Note PATIENT NAME: Devorah Shelton DATE OF SERVICE: June 29, 2023 TIME: 4:27 PM PATIENT IDENTITY VERIFICATION COMPLETED USING TWO (2) IDENTIFIERS: Name and Date of confirmedby patient verbally. FALL SCREENING: Has the patient had 2 falls in the last year or 1 fall with injury or currently using an Ambulatory Assistive Device (Walker, Cane, Wheelchair, Crutches, etc.)? No PATIENT GENDER DATA: Female. status: : No status: NO. PATIENT RELEVANT IMPLANT DATA REVIEWED: Not Applicable PATIENT PRESENTS WITH AN IMPLANTABLE OR ATTACHED TECHNICAL INSTRUCTOR COURSE DEVELOPER: No RADIOLOGY DEPARTMENT: General X-ray: Exam(s) Completed: Upper Extremity X- Ray(s): Hand, right PERIPHERAL IV DATA: Not applicable SIGNED BY: RT Lb(R) June 29, 2023 4:27 PM [facility] History of Present illness Narrative* Miguel Ang PA-C - 06/29/2023 4:16 PM EST PLASTIC SURGERY DEPARTMENT [facility] Hand Surgery Note [] New referred by []self []physician.......... [] Follow-up CC: ..right hand pain............ ? HPI: Devorah is a 28 year old female who presnets after being bit by a dog in February 2023. Reportswas bit at the [facility] and has never healed correctly. Patient also suffered infection of the right hand following a dog bite which she was treated with antibiotics. She reported that the infection started to move up the arm past the wrist. 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 Dominant Hand: right [x] left [] Date onset symptoms: .feb 2023 ......... Symptoms location -[x] RIGHT [] worse -[] LEFT [] worse Fingers 1[] 2[] 3[x] 4[] 5 [] 1[] 2[] 3[] 4[] 5 []. []Tingling []Numbness []Pain Symptoms location -[] RIGHT [] worse -[] LEFT [] worse Hand []Radial []volar [] ulnar [] dorsal []Radial []volar [] ulnar [] dorsal wrist []Radial []volar [] ulnar [] dorsal []Radial []volar [] ulnar [] dorsal forearm []Radial []volar [] ulnar [] dorsal []Radial []volar [] ulnar [] dorsal elbow []Radial []volar [] ulnar [] dorsal []Radial []volar [] ulnar [] dorsal arm [] [] shoulder [] [] neck [] [] []Tingling []Numbness []Pain Overall PAIN Now 0[] 1[] 2[] 3[] 4[] 5[] 6[] 7[] 8[] 9[] 10[] Average 0[] 1[] 2[] 3[] 4[] 5[] 6[] 7[] 8[] 9[] 10[] Rest 0[] 1[] 2[] 3[] 4[] 5[] 6[] 7[] 8[] 9[] 10[] Function 0[] 1[] 2[] 3[] 4[] 5[] 6[] 7[] 8[] 9[] 10[] Quality []sharp []dull []aching []sore []taut []pulled []torsion []shooting []pricking []pressing []lacerating []pinching []squeezing []drilling []spasm [] throbbing []burning []cramping []cutting []heavy []itchy []radiating [] electrical []stinging [] cold intolerance History of peripheral nerve compressions: Tingling or numbness yes [] no [] right [] Left [] 1[] 2[] 3[] 4[] 5[] Previous carpal tunnel syndrome yes [] no [] right [] Left [] Previous cubital tunnel syndrome yes [] no [] right [] Left [] Associated Signs/Symptoms Swelling [x] Bruising [] Stiffness [] Weakness [x] Pain? []same [x]better []worse over time Intervention/Prior Treatment: []no [x]yes [x]Decrease activity level and using heat/ ice []PT/OT,chiropractic treatments, or medically directed home exercise program for..........weeks in the last..........months (date started:...........) [x]Medications []Steroid injection []Splint/cast []Surgery............... No results found for: HBA1C Last 10 Encounter BP Readings: Date: BP: 06/29/2023 121/67 No flowsheet data found. No flowsheet data found. YES NO Smoking, vaping, nicotine, cannabis [x] [] Cigarettes/ day.... ? Hormone replacement (contraceptive, post menopause hormone treatment) [] [x] Medication.... Diabetes [] [x] []Type 1? []Type 2 ?Last A1c:..... Systemic inflammatory diseases [] [] []RA []Gout []Other... Hypertension [] [x] Meds:....... Heart disease or pacemaker [] [x] ............ Family history blood clots [] [] Personal history blood clots [] [] Anticoagulation (aspirin, coumadin, xarelto,etc) [] [x] What........... Reason:........... Immunosuppressants (steroid, biologic meds infusion, etc) [] [x] What........... Reason:........... Upper extremity AV fistula (dialysis) or vessels injury or disease [] [] Overhead activities [x] [] Cervical problems [] [] []C3 []C4 []C5 []C6 []C7 []C8 []T1 []Conservative []Fusion []Discectomy []Other... Pt AGAINST blood transfusion? [] [] ROS: All negative except for: GENERAL: []weight loss []malaise []fevers HEENT: []frequent or significant headaches []changes in hearing []change in vision []nose bleeds []other nasal problems NECK: []lumps []goiter []pain and significant neck swelling RESPIRATORY: []cough []hemoptysis []wheezing []COPD []dyspnea []shortness of breath CARDIOVASCULAR: []chest pain []leg swelling []hypertension []CHF []palpitations GI: []nausea []vomiting []diarrhea MUSCULOSKELETAL: see HPI SKIN: [] skin lesions []rash []itching PSYCH: []sleep disturbance []mood disorder []recent psychosocial stressors HEMATOLOGY/LYMPHOLOGY: []prolonged bleeding []bruising easily []swollen nodes ENDOCRINE: []cold intolerance []heat intolerance []polyuria []polydipsia []goiter Objective: BP 121/67 Pulse 68 Temp 36.3 C (97.3 F) No past medical history on file. No past surgical history on file. Current Outpatient Medications Medication Sig Dispense Refill DULoxetine (CYMBALTA) 30 mg capsule Take 30 mg by mouth. No current facility-administered medications for this visit. ALLERGIES Allergen Reactions Penicillins GI Upset, Rash There is no height or weight on file to calculate BMI. There is no height or weight on file to calculate BSA. IMAGING (date/result): Physical Exam Awake, alert, and oriented x3. LUNGS: Lungs clear to auscultation, Good diaphragmatic excursion CARDIAC: Normal S1 and S2; no rubs, murmurs, or gallops, Rhythm: regular rate and rhythm, Rate: normal ? 2-POINT DISCRIMINATION RIGHT (radial) RIGHT (ulnar) RIGHT overall LEFT (radial) LEFT (ulnar) LEFT overall thumb 7 ? index ?7 ? long ?7 ? ring ?7 ? small 7 THUMB trauma RIGHT LEFT P2 tenderness +[] -[] +[] -[] IPJ tenderness +[] -[] +[] -[] P1 tenderness +[] -[] +[] -[] MCPJ tenderness +[] -[] +[] -[] Metacarpal tenderness +[] -[] +[] -[] Metacarpal malrotation +[] -[] +[] -[] CMCJ tenderness +[] -[] +[] -[] UCL tenderness MCPJ +[] -[] +[] -[] RCL tenderness MCPJ +[] -[] +[] -[] EPL EPL [] not working [] working EPL [] not working [] working EPB EPB [] not working [] working EPB [] not working [] working APL APL [] not working [] working APL [] not working [] working FPL FPL [] not working [] working FPL [] not working [] working Mallet deformity +[] -[] +[] -[] [place] deformity +[] -[] +[] -[] [place] neck deformity +[] -[] +[] -[] FINGERS TRAUMA [x]RIGHT []LEFT []IF [x]MF []RF []SF P3 tenderness +[] -[] DIPJ tenderness +[] -[] P2 tenderness +[] -[] PIPJ tenderness +[] -[] P1 tenderness +[] -[] MCPJ tenderness +[x] -[] Metacarpal tenderness +[x] -[] Metacarpal malrotation +[] -[x] CMCJ tenderness +[] -[x] FDP [] not working [x] working FDS [] not working [x] working EDC [] not working [x] working EIP [] not working [x] working EDM [] not working [x] working Mallet deformity +[] -[x] [place] deformity +[] -[x] [place] neck deformity +[] -[x] WRIST RIGHT LEFT Distal Radius tenderness +[] -[] +[] -[] Distal Ulna +[] -[] +[] -[] Anatomical Snuff Box tenderness +[] -[] +[] -[] Scaphoid tubercle tenderness +[] -[] +[] -[] Scaphoid waist tenderness +[] -[] +[] -[] Scaphoid fossa tenderness +[] -[] +[] -[] Scapho-capitate joint tenderness +[] -[] +[] -[] S-L ligament tenderness +[] -[] +[] -[] Meredith's test +[] -[] +[] -[] S-L shear test Unst[] []Stable Unst[] []Stable Lunate tenderness +[] -[] +[] -[] Lunate fossa tenderness +[] -[] +[] -[] Luno-capitate tenderness +[] -[] +[] -[] L-T ligament tenderness +[] -[] +[] -[] L-T shear test Unst[] []Stable Unst[] []Stable Triquetrum tenderness +[] -[] +[] -[] Ulnar Fovea tenderness +[] -[] +[] -[] Ulnar Snuffbox tenderness +[] -[] +[] -[] ECU tenderness +[] -[] +[] -[] Pain with forced ulnar deviation +[] -[] +[] -[] DRUJ tenderness +[] -[] +[] -[] DRUJ Supination stability Unst[] []Stable Unst[] []Stable DRUJ Pronation stability Unst[] []Stable Unst[] []Stable Pisiform tenderness +[] -[] +[] -[] P-T grind test tenderness +[] -[] +[] -[] Hamate hook tenderness +[] -[] +[] -[] STT tenderness +[] -[] +[] -[] Capitate tenderness +[] -[] +[] -[] Hamate tenderness +[] -[] +[] -[] FCR tenderness +[] -[] +[] -[] FCU tenderness +[] -[] +[] -[] FDPs FDSs tenderness +[] -[] +[] -[] ECRL/ECRB tenderness +[] -[] +[] -[] EDCs tenderness +[] -[] +[] -[] Patient Entered Questionnaires PROMIS Score Percentiles Percentiles provide an indication of how the patient's score ranks in relation to the general population. Higher percentile rankings indicate better function/quality of life. 50th percentile is the average of the general population and indicates half of respondents had a worse score. > 31st percentile is within normal limits or better * < 31st percentile is at least SD worse than population, which may be clinically relevant < 16th percentile is at least 1 SD worse than population and warrants attention Assessment:..... right third metacarpal tenderness ...... Plan:...Patient should continue with conservative measures for pain and swelling. No restrictions with the use of hand. Fracture has healed well. Pain is most likely residual symptoms of the infection..... []Pictures [x]Conservative []Medications []Splint []Cast []OT []PT []CAST ROOM []EMG/ NCS []neuromuscular US []radiology []xrays []US []CT []MRI []Surgery []consult neurology []consult rheumatology []consult spine center []consult pain management []consult orthopedics Follow-up: [x]with [facility] [] with []after tests completed [x]PRN []1 week []2 weeks []3 weeks []4 weeks []6 weeks []2 months []3 months []6 months []9 months []1 year otherwise []weeks []months The patient was informed about possible options for treatment: Conservative vs. Operative, possiblepros and cons with complications of both were discussed. The patient elects to have []conservative treatment []surgery All anesthestic options discussed with patient: wide awake local anesthesia, peripheral nerve blockwith possible sedation, peripheral nerve block with pain catheter and possible sedation, general anesthesia. Patient voiced understanding and has chosen []local []block ([]single shot []catheter) []WALANT []MAC []general anesthesia The patient was assessed for application of a splint. The []right []left splint ([]finger []CT []thumb spica []cool comfort) was/were applied and the patient was informed how to use it. The patient was agreeable with the plan. Work restrictions: []none []one handed duty []no lifting, pulling, pushing, squeezing more than ..........pounds []until FU [] for ..........weeks 30 Minutes total visit spent face to face with patient. Greater than 50% of the time was spent for counseling and coordination of care, discussing treatment options and recommendations. Miguel Ang PA-C June 30, 2023 8:32 AM This note was generated with voice recognition software and may contain errors, including spelling,grammar, syntax and misrecognition of what was dictated, that are not fully corrected. documented in this encounterA[facility] NoteOrthopedic Surgery Subjective Follow-up of the Right Hand 02/24/23 Devorah Shelton is a 28 y.o. female presenting for evaluation of dog bite to right hand (DOI 02/09/23). She was initially seen in the ED, where two of the wounds were closed primarily with sutures, and she was started on antibiotics. X-rays at that time were read as negative. Since her last visit, she has finished the clindamycin and ciprofloxacin. Sutures were removed by her PCP. She continues to have pain primarily over the knuckle of the 3rd digit. This limits her motion and ability to make a fist. Denies fever, chills, drainage, numbness, and tingling. Review of Systems unremarkable aside from what is noted in HPI Patient History Past Surgical History: Procedure Laterality Date TONSILLECTOMY History reviewed. No pertinent past medical history. Objective General: Body mass index is 32.92 kg/m???. No acute distress, comfortable Respiratory: Unlabored breathing with normal rate, no cough Cardiovascular: Warm well perfused extremities Psych: Appropriate mood behavior Right Hand: Inspection- 3 small superficial wounds over dorsum of hand, now with overlying scabs. No erythema, swelling, or drainage. Tender to palpation over long finger MCP joint; otherwise non-tender throughout remaining hand and digits Limited active ROM of long finger MCP joint from 0 to approximately 60 degrees. This improves to about 70 degrees of flexion passively, but she still has difficulty reaching the thenar eminence and making a fist. Remaining digits exhibit full active and passive ROM. Strength: staff air defense officer 5/5, thumb 5/5, interossei 5/5 Sensation: intact over median, ulnar, and radial nerve distributions Cardiovascular: Well-perfused digits Imaging personally reviewed: X-rays of the right hand obtained today demonstrate a cortical irregularity of the dorsal 3rd metacarpal head. No other acute osseous abnormalities. No significant degenerative changes. Assessment/Plan Devorah Shelton is a 28 y.o. year old female with Dog bite of right hand, subsequent encounter - Wounds are healing well. She does appear to have a small cortical defect of the dorsal 3rd metacarpal head, but this can be managed non-operatively and does not require immobilization or surgical intervention. At this point, she is at a low risk for infection. - Discussed starting OT to work on ROM. She already has a referral for this and is planning on doing hand therapy in [place]. - WBAT and ROM of digits as tolerated to RUE - Follow up in clinic as needed or if any new issues arise Nneka Allen MD Orthopaedic Surgery Resident, PGY-3 By using the attestations below, the signing clinician agrees that I have read and verify that the documentation has been personally reviewed by me and ensure that the documentation accurately reflects the encounter. Office Visit Attestation GC: I personally saw this patient on the day of the encounter, performed the payne portion(s) of the service and participated in the management and confirm the resident's documentation. Please note there may be an additional personal documentation from me.[facility]09-26-2023 Note 27-year-old female [id number] who sustained a dog bite to her right hand 02/09/2023. She was seen in ER started on Augmentin. She followed up with her PCP who due to reaction with Augmentin changed her to clindamycin and Cipro. She is here for evaluation by Dr. Smallwood today who is not available. She did undergo x-rays at the ER and she states she was told that it does not appear that it involves the bone. Review of systems No fever or chills No erythema or warmth to the right hand No numbness or tingling Physical exam General no apparent distress in sitting position HEENT normocephalic/atraumatic Neck trachea midline Alert and oriented time person and place Skin intact Coordination intact Gait ambulates with no limp Cardiovascular extremities are warm and well-perfused Lungs no dyspnea noted Motor strength 5 out of 5 except the right hand not tested Sensory exam intact to light touch Mood affect appropriate Focused exam of the right hand shows the skin to be with 2 dog bite wounds on the dorsal aspect of the hand and one near the third metacarpal close to the MCP joint and the other 1 in the first webspace. These wounds presently show no sign of infection. The sutures are in place. She is able to make a complete fist. She is with full extension of all the digits with 5 out of 5 strength. Sensory exam intact to all the digits radial and ulnar sides. Brisk capillary refill present. She is with mild swelling. Neurovascular intact distally X-rays obtained in the ER reviewed today by me and show the patient does appear to have a penetration of the third metacarpal as she is with a bony irregularity near the third metacarpal head. Plan Clinical and radiograph findings were discussed with the patient. At this stage she will have the sutures removed later this week at her family practice office. She will work on range of motion exercises with occupational therapy at [facility]. She will complete her antibiotic regime. We will have her follow-up with Dr. Smallwood next week. She will report immediately the emergency room should she develop any signs of infection.[facility]05-26-2023 Evaluation note* Encounter Date Diagnosis Assessment Notes Treatment Notes Treatment Clinical Notes September, Cutaneous candidiasis (ICD-10 - B37.2) Yeast infection-skin home care material was printed Drink plenty fluids, get plenty of rest. Keep the area clean and dry. Apply the antifungal cream to the area twice a day until is gone and then apply it twice a day for 2 more days to make sure is good and gone. Follow-up with your family physician if no improvement in 2-3 days [employer] Other 02-26-2023 Hospital Discharge instructions Patient Education 07/20/2022 02:49:10 Tonsillectomy, Adult, Care After Tonsillectomy, Adult, Care After This sheet gives you information about how to care for yourself after your procedure. Your health care provider may also give you more specific instructions. If you have problems or questions, contact your health care provider. What can I expect after the procedure? After your procedure, it is common to have: A numb tongue. A reduced sense of taste. Difficulty swallowing and pain when swallowing. Pain or a clicking noise when yawning or chewing. Liquids that you drink leaking out of your nose. A muffled sound to your voice. Swelling in the middle of the roof of the mouth (uvula). A constant cough and a need to clear mucus and phlegm from your throat. Specks of blood in your saliva or when you blow your nose. Snoring or breathing through the mouth during sleep. A thick, white scab that forms where the tonsils used to be. It will cause bad breath. Follow these instructions at home: Eating and drinking Follow instructions from your health care provider about eating or drinking restrictions. For the first several days after surgery, choose foods that are soft and cold, such as gelatin, sherbet, ice cream, and frozen ice pops. These types of foods are usually the easiest to eat. If you have nausea or vomiting, start with liquids that are cold and that you can see through (clear liquids), such as water and apple juice without pulp. When you can tolerate these fluids safely, you may advance to thicker liquids and soft foods, such as: ?Creamed soups. ?Soft, warm cereals, such as oatmeal or hot wheat cereal. ?Milk. ?Mashed potatoes. ?Applesauce. Drink enough fluid to keep your urine clear or pale yellow. Driving Do not drive for 24 hours if you were given a medicine to help you relax (sedative). Do not drive or use heavy machinery while taking prescription pain medicine or until your health care provider approves. General instructions Rest. Keep your head raised (elevated) at all times when lying down. Take dtnc-ies-auagrek and prescription medicines only as told by your health care provider. Do not use mouthwashes until your health care provider approves. Gargle only as told by your health care provider. Avoid contact with people who have infections, such as colds and sore throats. Contact a health care provider if: Your pain gets worse or is not controlled with medicines. You have a fever. You have a rash. You feel light-headed or you faint. You are unable to swallow even small amounts of liquid or saliva. Your urine is very dark. Get help right away if: You have trouble breathing. You bleed bright red blood from your throat. You vomit bright red blood. Summary Follow instructions from your health care provider about eating or drinking restrictions. For the first several days after surgery, soft and cold foods are usually the easiest to eat. Talk with your health care provider about ways to manage your pain. Keeping pain under control can help you rest and make swallowing easier. Small specks of blood in your saliva is normal after surgery. Bleeding more than this is a serious complication. Get help right away if you bleed bright red blood from your throat or you vomit brightred blood. This information is not intended to replace advice given to you by your health care provider. Make sure you discuss any questions you have with your health care provider. Document Released: 03/11/2005 Document Revised: 04/23/2018 Document Reviewed: 04/03/2017 [employer] Patient Education 2020 [employer]. Follow Up Care 07/19/2022 21:36:50 With:PALMIRA RIGGS Address: [address] , [address] [address] [facility] (1) When:Within 3 Day(s) [facility]02-25-2023 Evaluation + Plan noteExtracted from: Title:ED Note Author:Roman Syed DO Date :07/19/22 [facility]02-15-2023 Hospital Discharge instructions Patient Education 07/08/2022 22:15:17 Rehydration, Adult Rehydration, Adult Rehydration is the replacement of body fluids and salts and minerals (electrolytes) that are lost during dehydration. Dehydration is when there is not enough fluid or water in the body. This happens when you lose more fluids than you take in. Common causes of dehydration include: Vomiting. Diarrhea. Excessive sweating, such as from heat exposure or exercise. Taking medicines that cause the body to lose excess fluid (diuretics). Impaired kidney function. Not drinking enough fluid. Certain illnesses or infections. Certain poorly controlled long-term (chronic) illnesses, such as diabetes, heart disease, and kidney disease. Symptoms of mild dehydration may include thirst, dry lips and mouth, dry skin, and dizziness. Symptoms of severe dehydration may include increased heart rate, confusion, fainting, and not urinating. You can rehydrate by drinking certain fluids or getting fluids through an IV tube, as told by your health care provider. What are the risks? Generally, rehydration is safe. However, one problem that can happen is taking in too much fluid (overhydration). This is rare. If overhydration happens, it can cause an electrolyte imbalance, kidneyfailure, or a decrease in salt (sodium) levels in the body. How to rehydrate Follow instructions from your health care provider for rehydration. The kind of fluid you should drink and the amount you should drink depend on your condition. If directed by your health care provider, drink an oral rehydration solution (ORS). This is a drinkdesigned to treat dehydration that is found in pharmacies and retail stores. ?Make an ORS by following instructions on the package. ?Start by drinking small amounts, about cup (120 mL) every 5 10 minutes. ?Slowly increase how much you drink until you have taken the amount recommended by your health careprovider. Drink enough clear fluids to keep your urine clear or pale yellow. If you were instructed to drink an ORS, finish the ORS first, then start slowly drinking other clear fluids. Drink fluids such as: ?Water. Do not drink only water. Doing that can lead to having too little sodium in your body (hyponatremia). ?Ice chips. ?Fruit juice that you have added water to (diluted juice). ?Low-calorie sports drinks. If you are severely dehydrated, your health care provider may recommend that you receive fluids through an IV tube in the hospital. Do not take sodium tablets. Doing that can lead to the condition of having too much sodium in your body (hypernatremia). Eating while you rehydrate Follow instructions from your health care provider about what to eat while you rehydrate. Your health care provider may recommend that you slowly begin eating regular foods in small amounts. Eat foods that contain a healthy balance of electrolytes, such as bananas, oranges, potatoes, tomatoes, and spinach. Avoid foods that are greasy or contain a lot of fat or sugar. In some cases, you may get nutrition through a feeding tube that is passed through your nose and into your stomach (nasogastric tube, or NG tube). This may be done if you have uncontrolled vomiting or diarrhea. Beverages to avoid Certain beverages may make dehydration worse. While you rehydrate, avoid: Alcohol. Caffeine. Drinks that contain a lot of sugar. These include: ?High-calorie sports drinks. ?Fruit juice that is not diluted. ?Soda. Check nutrition labels to see how much sugar or caffeine a beverage contains. Signs of dehydration recovery You may be recovering from dehydration if: You are urinating more often than before you started rehydrating. Your urine is clear or pale yellow. Your energy level improves. You vomit less frequently. You have diarrhea less frequently. Your appetite improves or returns to normal. You feel less dizzy or less light-headed. Your skin tone and color start to look more normal. Contact a health care provider if: You continue to have symptoms of mild dehydration, such as: ?Thirst. ?Dry lips. ?Slightly dry mouth. ?Dry, warm skin. ?Dizziness. You continue to vomit or have diarrhea. Get help right away if: You have symptoms of dehydration that get worse. You feel: ?Confused. ?Weak. ?Like you are going to faint. You have not urinated in 6 8 hours. You have very dark urine. You have trouble breathing. Your heart rate while sitting still is over 100 beats a minute. You cannot drink fluids without vomiting. You have vomiting or diarrhea that: ?Gets worse. ?Does not go away. You have a fever. This information is not intended to replace advice given to you by your health care provider. Make sure you discuss any questions you have with your health care provider. Document Released: 08/02/2012 Document Revised: 04/23/2018 Document Reviewed: 07/04/2016 [employer] Patient Education 2020 [employer]. 07/08/2022 22:15:17 Dysphagia Eating Plan, Pureed Dysphagia Eating Plan, Pureed This diet is helpful for people with moderate to severe swallowing problems. Pureed foods are smooth and are prepared without lumps so that they can be swallowed safely. Work with your health care provider and your diet and records management specialist (dietitian) to make sure that you are following the diet safely and getting all the nutrients you need. What are tips for following this plan? General instructions You may eat foods that are soft and have a pudding-like texture. Do not eat foods that you have to chew. If you have to chew the food, then you cannot eat it. Avoid foods that are hard, dry, sticky, chunky, lumpy, or stringy. Also avoid foods with nuts, seeds, raisins, skins, or pulp. You may be instructed to thicken liquids. Follow your health care provider's instructions about howto do this and to what consistency. Cooking If a food is not originally a smooth texture, you may be able to eat the food after: ?Pureeing it. This can be done with a powder blender and pourer. ?Moistening it. This can be done by adding juice, cooking liquid, gravy, or sauce to a dry food andthen pureeing it. For example, you may have bread if you soak it in milk and puree it. If a food is too thin, you may add a commercial thickener, corn starch, rice cereal, or potato flakes to thicken it. Strain and throw away any liquid that separates from a solid pureed food before eating. Strain lumps, chunks, pulp, and seeds from pureed foods before eating. Reheat foods slowly to prevent a tough crust from forming. Meal planning Eat a variety of foods to get all the nutrients you need. Add dry milk or protein powder to food to increase calories and protein content. Follow your meal plan as told by your dietitian. What foods are allowed? The items listed may not be a complete list. Talk with your dietitian about what dietary choices are best for you. Grains Soft breads, pancakes, Chinese toast, muffins, and bread stuffing pureed to a smooth, moist texture,without nuts or seeds. Cooked cereals that have a pudding- like consistency, such as cream of wheat or farina. Pureed oatmeal. Pureed, well-cooked pasta and rice. Vegetables Pureed vegetables. Smooth tomato paste or sauce. Mashed or pureed potatoes without skin. Fruits Pureed fruits such as melons and apples without seeds or pulp. Mashed bananas. Mashed avocado. Fruit juices without pulp or seeds. Meats and other protein foods Pureed meat, poultry, and fish. Smooth lockhart or liverwurst. Smooth souffles. Pureed beans (such as lentils). Pureed eggs. Smooth nut and seed butters. Pureed tofu. Dairy Yogurt. Milk. Pureed cottage cheese. Nutritional dairy drinks or shakes. Cream cheese. Smooth pudding, ice cream, sherbet, and malts. Fats and oils Butter. Margarine. Vegetable oils. Smooth and strained gravy. Sour cream. Mayonnaise. Smooth saucessuch as white sauce, cheese sauce, or hollandaise sauce. Sweets and desserts Moistened and pureed cookies and cakes. Whipped topping. Gelatin. Pudding pops. Seasoning and other foods Finely ground spices. Jelly. Honey. Pureed casseroles. Strained soups. Pureed sandwiches. Beverages Anything prepared at the consistency recommended by your dietitian. What foods are not allowed? The items listed may not be a complete list. Talk with your dietitian about what dietary choices are best for you. Grains Oatmeal. Dry cereals. Hard breads. Breads with seeds or nuts. Whole pasta, rice, or other grains. Whole pancakes, waffles, biscuits, muffins, or rolls. Vegetables Whole vegetables. Stringy vegetables (such as celery). Tomatoes or tomato sauce with seeds. Fried vegetables. Fruits Whole fresh, frozen, canned, or dried fruits that have not been pureed. Stringy fruits, such as pineapple or coconut. Watermelon with seeds. Dried fruit or fruit leather. Meat and other protein foods Whole or ground meat, fish, or poultry. Dried or cooked lentils or legumes that have been cooked but not mashed or pureed. Non-pureed eggs. Nuts and seeds. Crunchy peanut butter. Whole tofu or other meat alternatives. Dairy Cheese cubes or slices. Non-pureed cottage cheese. Yogurt with fruit chunks. Fats and oils All fats and sauces that have lumps or chunks. Sweets and desserts Solid desserts. Sticky, chewy sweets (such as licorice and caramel). Candy with nuts or coconut. Seasoning and other foods Coarse or seeded herbs and spices. [place] preserves. Jams with seeds. Whole sandwiches. Non-pureed casseroles. [place]keny soups. Summary Pureed foods can be helpful for people with moderate to severe swallowing problems. On the dysphagia eating plan, you may eat foods that are soft and have a pudding-like texture. You should avoid foods that you have to chew. If you have to chew the food, then you cannot eat it. You may be instructed to thicken liquids. Follow your health care provider's instructions about howto do this and to what consistency. This information is not intended to replace advice given to you by your health care provider. Make sure you discuss any questions you have with your health care provider. Document Released: 05/11/2006 Document Revised: 09/01/2019 Document Reviewed: 07/14/2017 [employer] Patient Education 2020 [employer]. 07/08/2022 22:15:17 Dysphagia Eating Plan, Minced and Moist Foods Dysphagia Eating Plan, Minced and Moist Foods This eating plan is for people with moderate swallowing problems who are transitioning from pureed to solid foods. Moist and minced foods are soft and cut into very small chunks so that they can be swallowed safely. On this eating plan, you may be instructed to drink liquids that are thickened. Work with your health care provider and your diet and records management specialist (dietitian) to make surethat you are following the diet safely and getting all the nutrients you need. What are tips for following this plan? General guidelines for foods You may eat foods that are soft and moist. Always test food texture before taking a bite. Poke food with a fork or spoon to make sure it is tender. Take small bites. Each bite should be smaller than your little finger nail (about 4 mm by 4 mm). If you were on a pureed food eating plan, you may still eat any of the foods included in that diet. Avoid foods that are dry, hard, sticky, chewy, coarse, or crunchy. Avoid foods that separate into thin liquids and solids, such as cereal with milk or chunky soups. Avoid liquids that have seeds or chunks. If instructed by your health care provider, thicken liquids. Follow your health care provider's instructions about what products to use, how to do this, and to what thickness. ?You may use a commercial thickener, rice cereal, or potato flakes. ?Thickened liquids are usually a pudding-like consistency, or they may be as thick as honey or thick enough to eat with a spoon. Cooking You may need to use a powder blender and pourer, whisk, or masher to soften some of your foods. To moisten foods, you may add liquids while you are blending, mashing, or grinding your foods to the right consistency. These liquids include gravies, sauces, vegetable or fruit juice, milk, half andhalf, or water. Reheat foods slowly to prevent a tough crust from forming. Meal planning Eat a variety of foods in order to get all the nutrients you need. Follow your meal plan as told by your health care provider or dietitian. What foods are allowed? Grains Soaked soft breads without nuts or seeds. Pancakes, sweet rolls, pastries, and Chinese toast that have been moistened with syrup or sauce. Well-cooked pasta, noodles, rice, and bread dressing in very small pieces and thick sauce. Soft dumplings or spaetzle in very small pieces and butter or gravy. Soft-cooked cereals. Vegetables Very soft, well-cooked vegetables in very small pieces. Soft-cooked, mashed potatoes. Thickened vegetable juice. Fruits Canned or cooked fruits that are soft or moist and do not have skin or seeds. Fresh, soft bananas. Thickened fruit juices. Meat and other protein foods Tender, moist, and finely minced or ground meats or poultry. Moist meatballs or meatloaf. Fish without bones. Scrambled, poached, or soft-cooked eggs. Tofu. Tempeh and meat alternatives in very smallpieces. Well-cooked, moistened and mashed beans, baked beans, peas, and other legumes. Dairy Thickened milk. Cream cheese. Yogurt. Cottage cheese. Sour cream. Fats and oils Butter. Margarine. Cream for cereal, depending on liquid consistency allowed. Gravy. Cream sauces. Mayonnaise. Sweets and desserts Pudding. Custard. Ice cream and sherbet. Whipped toppings. Soft, moist cakes. Icing. Jelly. Jams and preserves without seeds. Seasoning and other foods Sauces and salsas that have soft chunks that are smaller than 4mm. Salad dressings. Casseroles withsmall pieces of tender meat. All seasonings and sweeteners. Beverages Anything prepared at the thickness recommended by your dietitian. What foods are not allowed? Grains Breads that are hard or have nuts or seeds. Dry biscuits, pancakes, waffles, and bread dressing. Coarse cereals. Cereals that have nuts, seeds, dried fruits, or coconut. Sticky rice. Large pieces of pasta. Vegetables All raw vegetables. Tough, fibrous, chewy, or stringy cooked vegetables, such as celery, peas, broccoli, cabbage, [place] sprouts, and asparagus. Potato skins. Potato and other vegetable chips. Fried or Chinese-fried potatoes. Cooked corn and peas. Fruits Hard, crunchy, stringy, high-pulp, and juicy raw fruits such as apples, pineapple, papaya, and watermelon. Fruits with skins and seeds, such as grapes. Dried fruit and fruit leather. Meats and other protein foods Large pieces of meat. Dry, tough meats, such as castillo, sausage, and hot dogs. Chicken, turkey, or fish with skin and bones. Crunchy peanut butter. Nuts. Seeds. Dairy Yogurt with nuts, seeds, or large chunks. Large chunks of cheese. Frozen desserts and milk consistency not allowed by your dietitian. Sweets and desserts Coarse, hard, chewy, or sticky desserts. Any dessert with nuts, seeds, coconut, pineapple, or driedfruit. Bread pudding. Seasoning and other foods Soups and casseroles with large chunks. Sandwiches. Pizza. Summary Moist and minced foods can be helpful for people with moderate swallowing problems. On the dysphagia eating plan, you may eat foods that are soft, moist, and cut into pieces smaller than 4mm by 4mm. You may be instructed to thicken liquids. Follow your health care provider's instructions about howto do this and to what consistency. This information is not intended to replace advice given to you by your health care provider. Make sure you discuss any questions you have with your health care provider. Document Released: 05/11/2006 Document Revised: 09/01/2019 Document Reviewed: 08/21/2017 [employer] Patient Education 2020 [employer] 07/08/2022 22:15:17 Dehydration, Adult, [id number] Dehydration, Adult Dehydration is when there is not enough fluid or water in your body. This happens when you lose more fluids than you take in. Dehydration can range from mild to very bad. It should be treated right away to keep it from getting very bad. Symptoms of mild dehydration may include: Thirst. Dry lips. Slightly dry mouth. Dry, warm skin. Dizziness. Symptoms of moderate dehydration may include: Very dry mouth. Muscle cramps. Dark pee (urine). Pee may be the color of tea. Your body making less pee. Your eyes making fewer tears. Heartbeat that is uneven or faster than normal (palpitations). Headache. Light-headedness, especially when you stand up from sitting. Fainting (syncope). Symptoms of very bad dehydration may include: Changes in skin, such as: ?Cold and clammy skin. ?Blotchy (mottled) or pale skin. ?Skin that does not quickly return to normal after being lightly pinched and let go (poor skin turgor). Changes in body fluids, such as: ?Feeling very thirsty. ?Your eyes making fewer tears. ?Not sweating when body temperature is high, such as in hot weather. ?Your body making very little pee. Changes in vital signs, such as: ?Weak pulse. ?Pulse that is more than 100 beats a minute when you are sitting still. ?Fast breathing. ?Low blood pressure. Other changes, such as: ?Sunken eyes. ?Cold hands and feet. ?Confusion. ?Lack of energy (lethargy). ?Trouble waking up from sleep. ?Short-term weight loss. ?Unconsciousness. Follow these instructions at home: If told by your doctor, drink an ORS: ?Make an ORS by using instructions on the package. ?Start by drinking small amounts, about cup (120 mL) every 5 10 minutes. ?Slowly drink more until you have had the amount that your doctor said to have. Drink enough clear fluid to keep your pee clear or pale yellow. If you were told to drink an ORS, finish the ORS first, then start slowly drinking clear fluids. Drink fluids such as: ?Water. Do not drink only water by itself. Doing that can make the salt (sodium) level in your bodyget too low (hyponatremia). ?Ice chips. ?Fruit juice that you have added water to (diluted). ?Low-calorie sports drinks. Avoid: ?Alcohol. ?Drinks that have a lot of sugar. These include high-calorie sports drinks, fruit juice that does not have water added, and soda. ?Caffeine. ?Foods that are greasy or have a lot of fat or sugar. Take [id number] and prescription medicines only as told by your doctor. Do not take salt tablets. Doing that can make the salt level in your body get too high (hypernatremia). Eat foods that have minerals (electrolytes). Examples include bananas, oranges, potatoes, tomatoes,and spinach. Keep all follow-up visits as told by your doctor. This is important. Contact a doctor if: You have belly (abdominal) pain that: ?Gets worse. ?Stays in one area (localizes). You have a rash. You have a stiff neck. You get angry or annoyed more easily than normal (irritability). You are more sleepy than normal. You have a harder time waking up than normal. You feel: ?Weak. ?Dizzy. ?Very thirsty. You have peed (urinated) only a small amount of very dark pee during 6 8 hours. Get help right away if: You have symptoms of very bad dehydration. You cannot drink fluids without throwing up (vomiting). Your symptoms get worse with treatment. You have a fever. You have a very bad headache. You are throwing up or having watery poop (diarrhea) and it: ?Gets worse. ?Does not go away. You have blood or something green (bile) in your throw-up. You have blood in your poop (stool). This may cause poop to look black and tarry. You have not peed in 6 8 hours. You pass out (faint). Your heart rate when you are sitting still is more than 100 beats a minute. You have trouble breathing. This information is not intended to replace advice given to you by your health care provider. Make sure you discuss any questions you have with your health care provider. Document Released: 03/07/2010 Document Revised: 04/23/2018 Document Reviewed: 07/04/2016 [employer] Patient Education 2020 [employer] Follow Up Care 07/08/2022 17:43:05 With:PALMIRA RIGGS Address: [address], [address] [address]- Business (1) When:07/11/2022 21:56:31 [facility]01-30-2023 Evaluation note* Encounter Date Diagnosis Assessment Notes Treatment Notes Treatment Clinical Notes May, Sore throat (ICD-10 - J02.9) May, Strep throat (ICD-10 - J02.0) Stop bactrim as bactrim does not cover for group strep A. Take cephalexin as prescribed. Symptoms presented in office today indicate Strep Throat. Take medications as directed. Saltwater gargles may help with pain and disrupts bacteria and viral infections. Continue tylenol/ibu for general discomfort. Encourage fluids. Symptoms should improve within the next 4-7 days. [employer] Other 01-25-2023 Evaluation note* Encounter Date Diagnosis Assessment Notes Treatment Notes Treatment Clinical Notes May, Local infection of the skin and subcutaneous tissue, unspecified (ICD-10 - L08.9) Rx meds as directed. Take abx with food. Wound care discussed with pt in office. Keep area clean and dry. Wash BID with warm soapy water or peroxide. Keep area covered if open and draining. Otherwise leave [employer]. May try to treat with piercing still in, but discussed with pt that if sx are not completely resolved, pt will need to remove piercing. Discussed signs of spreading infection - spreading redness, warmth, swelling, increased pain, fever, chills, or drainage from wound. If these sx present pt must f/u immediately in ER or with PCP. Otherwise f/u PRN c pcp. Pt understood and agreed to tx plan. [employer] Other 12-30-2022 Evaluation note* Encounter Date Diagnosis Assessment Notes Treatment Notes Treatment Clinical Notes Apr, Strep pharyngitis (ICD-10 - J02.0) [employer] Other 11-23-2022 Evaluation note* Encounter Date Diagnosis Assessment Notes Treatment Notes Treatment Clinical Notes Mar, Sore throat (ICD-10 - J02.9) strep pos, see above. Mar, Strep throat (ICD-10 - J02.0) Pt is to take abx and steroid as prescribed. take with food. Informed pt they are contagious for first 24 hrs on medication. Push fluids and rest. Pt is to take otc antipyretic prn for fever and aches. Change toothbrush after 2-3 days. Pt is to be re-evaluated after treatment if sx worsen or don't improve by pcp. Pt is to call the office with any questions or concerns regarding dx and tx. Pt understood and agreed to treatment plan. [employer] Other 10-28-2022 Evaluation note* Encounter Date Diagnosis Assessment Notes Treatment Notes Treatment Clinical Notes Feb, Sore throat (ICD-10 - J02.9) strep pos, see above. Feb, Strep throat (ICD-10 - J02.0) Pt is to take abx as prescribed. take with food. Informed pt they are contagious for first 24 hrs on medication. Push fluids and rest. Pt is to take otc antipyretic prn for fever and aches. Change toothbrush after 2-3 days. Pt is to be re-evaluated after treatment if sx worsen or don't improve by pcp. Pt is to call the office with any questions or concerns regarding dx and tx. Pt understood and agreed to treatment plan. [employer] Other 02-26-2022 Evaluation note* Encounter Date Diagnosis Assessment Notes Treatment Notes Treatment Clinical Notes Jun, Acute pain of left knee (ICD-10 - M25.562) Jun, Biceps femoris tendinitis (ICD-10 - M76.899) Rest, ice your knee for 20 minutes every half hour as needed for pain. Buy new shoes! Take prednisone as prescribed. You may take tylenol with prednisone but do not take any ibuprofen, naproxen, or aspirin. Keep acewrap on your knee during the day for the next 10 days. Complete excercises twice a day for 10 days. Follow up with your primary doctor in 7 days if your pain does not improve. Reviewed all the x-ray imaging. There are no fractures appreciated on the images. I suspect that the patient has developed a mild biceps femoris tendinitis. I did consider septic arthritis, bursitis, and acute gout, however, given that there is no appreciable warmth or swelling of the knee and that the patient is able to actively and passively range the joint, his other diagnoses are unlikely. She also is afebrile. Will ultimately prescribe her prednisone and print out stretching exercises for her knee. I also would advise her to follow-up with her family doctor in 7 days[address] We will also place an Joel wrap over her knee and she is to wear the Joel wrap during the day for the next 10 days. Patient understands and agrees the plan. [employer] Other Evaluation + Plan note No data available for this section [facility] Trigger point with back pain- Primary Backache, unspecified Hepatic steatosis Other chronic nonalcoholic liver disease documented in this encounter [facility] Work Phone: evaluation noteNo assessment information available [facility] Work Phone: Evaluation note* Diagnosis Right hand pain Pain in limb [facility] Diagnosis Right hand pain- Primary Pain in limb [facility] Diagnosis Recurrent acute suppurative otitis media without spontaneous rupture of tympanic membrane of both sides- Primary Pharyngitis, unspecified etiology [facility] Diagnosis Onset Date Resolution Status Dog bite of right hand with infection acute [facility] Work Phone: Evaluation note* Diagnosis Onset Date Resolution Status Dog bite of right hand with infection acute Abnormal MRI acute Dog bite of right hand with infection acute Injury of right hand acute [facility] Work Phone: Evaluation note* Diagnosis Onset Date Resolution Status Dog bite of right hand with infection acute Dog bite of right hand with infection acute Injury of right hand acute Dog bite of right hand acute [facility] Work Phone: Evaluation note* Diagnosis Onset Date Resolution Status Dog bite of right hand with infection acute Injury of right hand acute Dog bite of right hand acute Pain of right middle finger acute [facility] Work Phone: Evaluation note* Diagnosis Onset Date Resolution Status Dog bite of right hand with infection acute Injury of right hand acute Dog bite of right hand acute Pain of right middle finger acute Skin yeast infection acute [facility] Work Phone: Evaluation note* Diagnosis Onset Date Resolution Status Dog bite of right hand with infection acute Injury of right hand acute Dog bite of right hand acute Pain of right middle finger acute Skin yeast infection acute Dog bite of right hand acute Pain of right middle finger acute [facility] Work Phone: Evaluation note* Diagnosis Onset Date Resolution Status Dog bite of right hand acute Pain of right middle finger acute [facility] Work Phone: Evaluation note* Diagnosis Missed menses , unspecified gestational age Encounter for supervision of normal first in first trimester documented in this encounter [facility]* Diagnosis Injury of right wrist, initial encounter- Primary Right wrist pain Pain in joint, forearm Right forearm pain [facility]* Type Description Date Medical History otitis media Medical History depression and anxiety Medical History asthma Medical History joint swelling Surgical History adenoidectomy Surgical History PE tubes [employer] Other History general Narrative - Reported* Type Description Date Medical History otitis media Medical History depression and anxiety Medical History asthma Medical History joint swelling Surgical History adenoidectomy Surgical History PE tubes Surgical History tonsillectomy 06/2022 [facility] [place] Other Progress note No data available for this section [facility] Diagnostic Procedure Only (Routine) - Authorized Specialty Diagnoses / Procedures Referred By Leodan simeon Referred To Contact XR IMAGING Diagnoses Right hand pain Procedures XR HAND GENERAL 3V PA/LAT/OBL RIGHT RADEX HAND MINIMUM 3 VIEWS Brianda Cartwright MD [address] [place] [address] Xr Imaging [place] [address] Referral ID Status Reason Start Date Expiration Date Visits Requested Visits Authorized [id number] Authorized Auto-Generat ed Referral 06/29/2023 07/28/2024 10 10 [facility] for referral (narrative)* Diagnostic Procedure Only (Routine) - Authorized Specialty Diagnoses / Procedures Referred By Leodan t Referred To Contact XR IMAGING Diagnoses Right hand pain Procedures XR HAND GENERAL 3V PA/LAT/OBL RIGHT RADEX HAND MINIMUM 3 VIEWS Brianda Cartwright MD [address] [place] [address] [place] [address] Referral ID Status Reason Start Date Expiration Date Visits Requested Visits Authorized [id number] Authorized Auto-Generat ed Referral 06/29/2023 07/28/2024 10 10 [facility] Summary Purpose Family History No Family History Records Found Relationship Condition Age at Onset Recorded Date/T ja Not Specified No pertinent family history Unknown Advance Directives No Advanced Directives Records Found Advance Directive Response Recorded Date/ Time Advance Directives No March 25, 2017 11:56pm Advance Directive Response Recorded Date/ Time Advance Directives No March 25, 2017 10:56pm Chief Complaint and Reason for Visit Chief Complaint R ear pain Chief Complaint R ear pain e80.6 Chief Complaint osteomyelitis s61.451a l08.9 w54.0xxa f/u Reason for Visit Dog bite of right [place] nd with infection Chief Complaint osteomyelitis s61.451a l08.9 w54.0xxa f/u right hand injury S69.91XA - Unspecified injury of right wrist, hand Reason for Visit Dog bite of right [place] with infection Abnormal MRI Dog bite of right hand with infection Injury of right hand Chief Complaint osteomyelitis s61.451a l08.9 w54.0xxa f/u right hand injury S69.91XA - Unspecified injury of right wrist, hand CONSULT DR BAHENA RT HAND DOG BITE Reason for Visit Dog bite of right [place] nd with infection Dog bite of right hand with infection Injury of right hand Dog bite of right hand Chief Complaint f/u right hand injury S69.91XA - Unspecified injury of right wrist, hand CONSULT DR BAHENA RT HAND DOG BITE Rash Reason for Visit Dog bite of right husain nd with infection Injury of right hand Dog bite of right hand Pain of right middle finger Chief Complaint f/u right hand injury S69.91XA - Unspecified injury of right wrist, hand CONSULT DR BAHENA RT HAND DOG BITE Rash Poss UTI Reason for Visit Dog bite of right [place] with infection Injury of right hand Dog bite of right hand Pain of right middle finger Skin yeast infection Chief Complaint f/u right hand injury S69.91XA - Unspecified injury of right wrist, hand CONSULT DR BAHENA RT HAND DOG BITE Rash Poss UTI Dysuria Reason for Visit Dog bite of right [place] with infection Injury of right hand Dog bite of right hand Pain of right middle finger Skin yeast infection Chief Complaint f/u right hand injury S69.91XA - Unspecified injury of right wrist, hand CONSULT DR BAHENA RT HAND DOG BITE Rash Poss UTI R30.0 4-6 WEEKS Reason for Visit Dog bite of right hus[place] with infection Injury of right hand Dog bite of right hand Pain of right middle finger Skin yeast infection Dog bite of right hand Pain of right middle finger Chief Complaint Poss UTI R30.0 4-6 WEEKS Rash Reason for Visit Dog bite of right husain nd Pain of right middle finger Additional Source Comments Ordered Prescriptions (unrec ognized section and content) Prescription Sig Dispensed Refills Start Date End Da te cyclobenzaprine (FLEXERIL) 10 MG tablet Take 1 tablet by mouth 3 times daily as needed for Muscle spasms 30 tablet 0 12/08/2020 INFORMATION SOURCE (unrecogn ized section and content) DATE CREATED AUTHOR 12/16/2020 [facility] DATE CREATED AUTHOR AUTHOR'S ORGANIZ ATION 03/27/2022 [facility] DATE CREATED AUTHOR AUTHOR'S ORGANIZ ATION 10/01/2022 [facility] dical Specialist DATE CREATED AUTHOR AUTHOR'S ORGANIZ ATION 02/25/2023 [facility] DATE CREATED AUTHOR AUTHOR'S ORGANIZ ATION 07/04/2023 [facility] DATE CREATED AUTHOR AUTHOR'S ORGANIZ ATION 11/22/2023 [facility] DATE CREATED AUTHOR AUTHOR'S ORGANIZ ATION 01/06/2024 [facility] DATE CREATED AUTHOR AUTHOR'S ORGANIZ ATION 03/26/2024 [facility] DATE CREATED AUTHOR AUTHOR'S ORGANIZ ATION 04/03/2024 [facility] dical Specialists EPIC REASON FOR VISIT (unrecogniz ed section and content) Reason Comments Radio Gen A21 Specialty Diagnoses / Procedures Referred By Contac t Referred To Contact XR IMAGING Diagnoses Right hand pain Procedures XR HAND GENERAL 3V PA/LAT/OBL RIGHT RADEX HAND MINIMUM 3 VIEWS Brianda Cartwright MD [address] [place] [id number] Xr Imaging [id number] Referral ID Status Reason Start Date Expiration Date Visits Requested Visits Authorized [id number] Authorized Auto-Generat ed Referral 06/29/2023 07/28/2024 10 10 Reason Comments Initial Visit Patient Care team informatio n (unrecognized section and content) Team Status: Active Member Role Status Dates Jelly Chery MD Primary Care Provider Active Team Status: Inactive Member Role Status Dates Jelly Chery MD Primary Care Provider Active Simone Meng MD Emergency Provider Active Team Status: Inactive Member Role Status Dates Jelly Chery MD Primary Care Provider Active Susie Johnson NP-C Attending Provider Active Quality Assurance Director Relationship Specialty Start Date End Date Jelly Chery MD [address] [place] [address] Referring Internal Medicine 06/26/23 Quality Assurance Director Relationship Specialty Start Date End Date Jelyl Chery MD [address] [place] [address] Referring Internal Medicine 06/26/23 Quality Assurance Director Relationship Specialty Start Date End Date Jelly Chery MD [address] [place] [address] PCP - General Internal Medicine 10/17/22 Team Status: Inactive Member Role Status Dates Jelly Chery MD Primary Care Provider Active St art: July 27, 2023 End: July 27, 2023 Simone Bahena MD Attending Provider Active Sta rt: July 27, 2023 End: July 27, 2023 Team Status: Inactive Member Role Status Dates Jelly Chery MD Primary Care Provider Active St art: September 07, 2023 End: September 07, 2023 Simone Bahena MD Attending Provider Active Sta rt: September 07, 2023 End: September 07, 2023 Team Status: Inactive Member Role Status Dates Jelly Chery MD Primary Care Provider Active St art: September 29, 2023 End: September 29, 2023 Belia Aguero PA-C Attending Provider Active St art: September 29, 2023 End: September 29, 2023 Team Status: Active Member Role Status Dates Jelly Chery MD Primary Care Provider Active St art: September 29, 2023 Belia Aguero PA-C Attending Provider Active St art: September 29, 2023 Team Status: Inactive Member Role Status Dates Jelly Chery MD Primary Care Provider Active St art: October 13, 2023 End: October 13, 2023 Swapna Caceres MD Attending Provider Active Start: October 13, 2023 End: October 13, 2023 Team Status: Inactive Member Role Status Dates Jelly Chery MD Primary Care Provider Active St art: October 30, 2023 End: October 30, 2023 Georgie Guerrier APRN Attending Provider Active S tart: October 30, 2023 End: October 30, 2023 Team Status: Inactive Member Role Status Dates Jelly Chery MD Primary Care Provider Active St art: November 18, 2023 End: November 18, 2023 Georgie Guerrier APRN Attending Provider Active S tart: November 18, 2023 End: November 18, 2023 Team Status: Inactive Member Role Status Dates Georgie Guerrier APRN Attending Provider Active S tart: November 18, 2023 End: November 18, 2023 Team Status: Active Member Role Status Dates NON STAFF Primary Care Provider Active Team Status: Inactive Member Role Status Dates Swapna Caceres MD Attending Provider Active Start: November 24, 2023 End: November 24, 2023 NON STAFF Primary Care Provider Active Start: November 24, 2023 End: November 24, 2023 Team Status: Inactive Member Role Status Dates NON STAFF Primary Care Provider Active Start: February 04, 2024 End: February 04, 2024 Maryuri Dominguez APRN Attending Provider Active Start: February 04, 2024 End: February 04, 2024 Quality Assurance Director Relationship Specialty Start Date End Date Jelly Chery MD [address] [place] [address] PCP - General Internal Medicine 10/17/22 Quality Assurance Director Relationship Specialty Start Date End Date Jelly Chery MD [address] [place] [address] PCP - General Internal Medicine 10/17/22 Goals (unrecognized section and content) Goals may be documented in a n alternate section Source Comments (unrecognize d section and content) In the event this informatio n is protected by the [facility] Confidentiality of Alcohol and Drug Abuse Patient Records regulations: The Federal rules restrict any use of the information to criminally investigate or prosecute any alcohol or drug abuse patient.[facility] the event this information is protected by the Federal Confidentiality of Alcohol and Drug Abuse Patient Records regulations: The Federal rules restrict any use of the information to criminally investigate or prosecute any alcohol or drug abuse patient.[facility] FOR RECORDS PERTAINING TO PATIENTS WHO ARE OR HAVE BEEN ENROLLED IN A CHEMICAL DEPENDENCY/SUBSTANCEABUSE PROGRAM, SOME INFORMATION MAY BE OMITTED. This clinical summary was aggregated from multiple sources. Caution should be exercised in using it in the provision of clinical care. This summary normalizes information from multiple sources, and as a consequence, information in this document may materially change the coding, format and clinical context of patient data. In addition, data may be omitted in some cases. CLINICAL DECISIONS SHOULD BE BASED ON THE PRIMARY CLINICAL RECORDS. [facility]. provides no warranty or guarantee of the accuracy or completeness of information in this document.
[2024-04-04 10:10] LABS: Basophils Percent Auto 0.2 % (0.2-2.0); Eosinophils Absolute Auto 0.1 10^3/uL (0.0-0.7); Eosinophils Percent Auto 0.6 % (0.9-7.0); Hematocrit 38.4 % (36.0-48.0); Hemoglobin 12.9 g/dL (12.0-16.0); Immature Granulocytes Abs Auto 0.03 10^3/uL (0.00-0.03); Immature Granulocytes Pct Auto 0.3 % (0.0-0.5); Lymphocytes Absolute Auto 1.8 10^3/uL (1.2-3.8); Lymphocytes Percent Auto 19.8 % (20.5-60.0); Mean Corpuscular HGB Conc 33.6 g/dL (29.9-35.2); Mean Corpuscular Hemoglobin 31.9 pg (26.7-34.0); Mean Corpuscular Volume 94.8 fL (81.0-99.0); Mean Platelet Volume 9.4 fL (9.5-13.5); Monocytes Absolute Auto 0.6 10^3/uL (0.3-0.8); Monocytes Percent Auto 6.9 % (1.7-12.0); Neutrophils Absolute Auto 6.7 10^3/uL (1.4-6.5); Neutrophils Percent Auto 72.2 % (43.0-75.0); Platelet Count 252 10^3/uL (150-450); Red Blood Count 4.05 10^6/uL (4.20-5.40); Red Cell Distribution Width 12.6 % (11.0-15.0); White Blood Count 9.3 10^3/uL (4.0-11.0)
[2024-04-04 10:26] LABS: Amphetamine Screen Urine NEGATIVE (NEGATIVE); Barbiturates Screen Urine NEGATIVE (NEGATIVE); Benzodiazepines Screen Urine NEGATIVE (NEGATIVE); Buprenorphine Screen Urine NEGATIVE (NEGATIVE); Cannabinoid Screen Urine NEGATIVE (NEGATIVE); Cocaine Screen Urine NEGATIVE (NEGATIVE); Methadone Screen Urine NEGATIVE (NEGATIVE); Methamphetamines Screen Urine NEGATIVE (NEGATIVE); Opiate Screen Urine NEGATIVE (NEGATIVE); Oxycodone Screen Urine NEGATIVE (NEGATIVE); Phencyclidine Screen Urine NEGATIVE (NEGATIVE); Tricyclic Antidepressant Urine NEGATIVE (NEGATIVE)
[2024-04-04 12:07] LABS: Estimated Average Glucose 91 mg/dL; Glycohemoglobin A1C 4.8 % (4.5-6.2)
[2024-04-05 06:09] LABS: HBsAg Screen Negative (Negative); HCV Ab Non Reactive (Non Reactive); HIV Ab/p24 Ag Screen Non Reactive (Non Reactive)
[2024-04-05 13:08] LABS: Rapid Plasma Reagin, Quant Non Reactive titer (NonRea<1:1)
== END 2024-04-04 09:27 | disposition home or self-care (01) ==
LOC: LAB 09:33
PROVIDERS: PCP Internal Medicine; Visit Provider Obstetrics & Gynecology
DX: Z34.01 Encounter for supervision of normal first pregnancy, first trimester (principal); N92.6 Irregular menstruation, unspecified
CPT/HCPCS: 36415; 80307; 83036; 85025; 86592; 86762; 86803; 86850; 86900; 86901; 87086; 87340; 87389

== ENCOUNTER 2024-06-27 07:57 | Outpatient (OUT) | payer BC, OTHER, SELFPAY ==
[2024-06-27 09:33] LABS: Basophils Percent Auto 0.2 % (0.2-2.0); Eosinophils Absolute Auto 0.1 10^3/uL (0.0-0.7); Eosinophils Percent Auto 0.4 % (0.9-7.0); Hematocrit 36.1 % (36.0-48.0); Hemoglobin 12.1 g/dL (12.0-16.0); Immature Granulocytes Abs Auto 0.04 10^3/uL (0.00-0.03); Immature Granulocytes Pct Auto 0.4 % (0.0-0.5); Lymphocytes Absolute Auto 1.7 10^3/uL (1.2-3.8); Lymphocytes Percent Auto 15.1 % (20.5-60.0); Mean Corpuscular HGB Conc 33.5 g/dL (29.9-35.2); Mean Corpuscular Hemoglobin 32.4 pg (26.7-34.0); Mean Corpuscular Volume 96.5 fL (81.0-99.0); Mean Platelet Volume 9.5 fL (9.5-13.5); Monocytes Absolute Auto 0.6 10^3/uL (0.3-0.8); Monocytes Percent Auto 5.4 % (1.7-12.0); Neutrophils Absolute Auto 8.8 10^3/uL (1.4-6.5); Neutrophils Percent Auto 78.5 % (43.0-75.0); Platelet Count 227 10^3/uL (150-450); Red Blood Count 3.74 10^6/uL (4.20-5.40); Red Cell Distribution Width 13.2 % (11.0-15.0); White Blood Count 11.2 10^3/uL (4.0-11.0)
[2024-06-27 10:14] LABS: Glucose 1 Hour 154 mg/dL (<130)
== END 2024-06-27 07:58 | disposition home or self-care (01) ==
LOC: LAB 08:00
PROVIDERS: PCP Internal Medicine; Visit Provider Obstetrics & Gynecology
DX: Z13.1 Encounter for screening for diabetes mellitus (principal)
CPT/HCPCS: 36415; 82950; 85025

== ENCOUNTER 2024-07-04 08:30 | Outpatient (OUT) | payer BC, OTHER, SELFPAY ==
--- OUTSIDE RECORDS SUMMARY | 2024-07-04 08:47 | XMS_ITS | CCD ---
Author Organization [facility] Team Providers Care Legal Manager Name Role Phone Palmira Riggs DO Primary Care Provider [phone] SIMONE MANLEY Attending Unavailable PALMIRA RIGGS Primary [...] Aguero Unavailable PALMIRA RIGGS Primary Care Physician Nasreen Delaney Unavailable MD Jelly Chery Primary Care Provider MD Simone Meng Emergency Provider MARISA SMALLWOOD Referring Unavailable MARISA SMALLWOOD Attending Unavailable JAISON PETIT Attending Unavailable MD Jelly Chery Primary Care Provider MD Simone Meng Emergency Provider [phone] JONATHAN Johnson Attending Provider Jelly Chery MD Unavailable MIGUEL ANG Attending Unavailable BRIANDA CARTWRIGHT Referring Unavailable Jelly Chery MD Primary Care Provider MD Jelly Chery Primary Care Provider MD Simone Bahena Attending Provider OJ Aguero Attending Provider [phone] MD Jelly Chery Primary Care Provider KRYSTAL Guerrier Attending Provider Risaliclaudine Susie Admitting Unavailable Risaliti, Susie Attending Unavailable Miri, Jelly Primary Care Unavailable Georgie Guerrier Admitting Unavailable Georgie Guerrier Attending Unavailable Belia Aguero Admitting Unavailable Belia Aguero Attending Unavailable Miri, Jelly Primary Care Unavailable Meng, Simone Admitting Unavailable Meng, Simone Attending Unavailable Miri, Jelly Primary Care Unavailable Robyn, Simone Admitting Unavailable Robyn, Simone Attending Unavailable Miri, Jelly Primary Care Unavailable MIRI, JELLY Primary Care Unavailable JELLY CHERY Primary Care Physician [phone] DONOVAN VORA Referring Unavailable JASON PIEDRA Referring Unavailable RAD SIMS Attending Unavailable JELLY CHERY Referring Unavailable SARAH PELLETIER Attending Unavailable SARAH PELLETIER Referring Unavailable PENG OLIVARES Attending Unavailable PENG OLIVARES Referring Unavailable JELLY CHERY Attending Unavailable MATTI SIMS Attending Unavailable PENG OLIVARES Referring Unavailable DONOVAN VORA Attending Unavailable MARSHALL PENG N Attending Unavailable AMERICA THOMPSON Attending Unavailable VIELKA, DONOVAN Attending Unavailable Hajessica, Astrit H Attending Unavailable Hajdkyle, Astrit H Attending Unavailable Roman Syed Attending Unavailable Hajessica, Astrit H Attending Unavailable Allergies Allergy Classification Reported Allergen(s) Allergy Type Date of Onset Reaction(s) Facility Clavulanate (3 sources) Clavulanate; Translations: [clavulanic acid] Drug Allergy 4 Nausea, vomiting, diarrhea [facility] Penicillins (antibiotic) (7 sources) Penicillins; Translations: [Penicillins] Drug Allergy 1 vomiting, diarrhea, Nausea [facility] Unclassified (20 sources) Amoxicillin-Pot Clavulanate Propensity to adverse reactions to drug 1 Diarrhea [facility] (7 sources) Amoxicillin / Clavulanate; Translations: [amoxicillin-cl avulanate] Drug Allergy vomiting, diarrhea, rash [facility] (2 sources) Amoxicillin / Clavulanate; Translations: [Augmentin] Drug Allergy [facility] Repository (1 source) Penicillin Drug Allergy [facility] Repository (20 sources) Clavulanate Drug Allergy 3 GI intolerance [facility] (12 sources) Penicillins; Translations: [PENICILLINS] Allergy to substance 1 GI Upset, Rash [facility] (20 sources) Penicillin G sodium Allergy to substance 3 [facility] (7 sources) Amoxicillin Drug Allergy 4 vomiting, diarrhea [facility] Medications Current Medications Medication Drug Class(es) Dates Sig (Normalized) Sig (Original) Albuterol Sulfate HFA 108 MCG/ACT (3 sources) take 1 puff(s) by inhalation every four hours as needed Albuterol Sulfate HFA 108 MCG/ACT 1 puff as needed Inhalation every 4 hrs Active amoxicillin 500 mg oral capsule (13 sources) Penicillin-class Antibacterial Start: 04-25-2024 End: 05-05-2024 take 1 capsule by mouth in the morning amoxicillin (Amoxil) 500 MG capsule Indications: Pharyngitis, unspecified etiology , Strep throat Take 1 capsule (500 mg) by mouth in the morning and 1 capsule (500 mg) before bedtime. Do all this for 10 days. 20 capsule 04/25/2024 05/05/2024 Active Start: 12-04-2018 End: 12-18-2018 Amoxicillin Discontinued TAB LET December 04, 2018 12:00am December 18, 2018 12:55am bisacodyl 10 mg rectal suppository (1 source) [...] mg capsule Discontinued 500 MG PO Q8H 30 July 26, 2018 1:00am August 05, 2018 12:02am [...] Discontinued 10 MG PO Three times daily 02 26August 26, 2018 12:00am October 13, 2018 3:04am DULoxetine 60 mg delayed release oral capsule (20 sources) Serotonin and Norepinephrine Reuptake Inhibitor Start: 09-29-2023 Duloxetine Active MG PO September 29, 2023 12:00am Start: 07-27-2023 End: 05-07-2024 take 60 mg by mouth once daily [...] 07-27-2023 Fluticasone Propionate (Flon ase) 50 mcg/actuation [place],Suspension Discontinued 2 SPRAY INTRANASAL Daily January 11, [...] day Active loratadine 10 mg oral tablet (20 sources) Start: 01-11-2023 End: 03-10-2024 take 1 tablet by mouth in the morning loratadine (Claritin) 10 MG tablet Take 10 mg by mouth in the morning. 01/11/2023 Active Multivitamin preparation (1 source) take 1 tablet by mouth once daily Multi Vitamin - 1 tablet Orally Once a day Active nystatin 100 unt/mg topical powder (18 sources) Polyene Antifungal Start: 10-30-2023 End: 03-10-2024 nystatin (Mycostatin) 510263 UNIT/GM powder Twice daily 10/30/2023 03/10/2024 Discontinued Start: 10-30-2023 End: 02-04-2024 Nystatin Discontinued 1 APPL IC TOPICAL Twice daily 30 7 October 30, 2023 12:00am February 04, 2024 1:27pm Start: 09-29-2023 End: 02-04-2024 Nystatin Discontinued TOPICA L September 29, 2023 12:00am February 04, 2024 1:27pm Start: 10-17-2022 Nystatin 89294 0 UNIT/GM 1 application Externally Twice a day September, Active nystatin 025626 unt/ml / triamcinolone acetonide 1 mg/ml topical cream (4 sources) Polyene Antifungal, Corticosteroid Start: 02-04-2024 Nystatin-Triamcinolone [...] hours Ondansetron Discontinued 4 MG PO Q8H April 26, 2019 1:00am May 02, 2019 2:05am Start: 11-14-2018 End: 12-18-2018 take 1 tablet by mouth every eight hours Ondansetron Hcl (Zofran) 4 mg tablet Discontinued 4 MG PO Q8H 14 November 14, 2018 12:00am December 18, 2018 12:55am Start: 07-26-2018 End: 07-31-2018 take 1 tablet by mouth three times daily Ondansetron Hcl (Zofran) 4 mg tablet Discontinued 4 MG PO Three times daily 15 July 26, 2018 1:00am July 31, 2018 1:03am Start: 04-21-2017 End: 06-17-2017 take 1 tablet by mouth every eight hours Ondansetron (Zofran Odt) 8 mg tablet,disintegrating Discontinued 8 MG PO Q8H April 21, 2017 1:00am June 17, 2017 11:40pm MV-Min-Fe Fum-FA-DHA ( 1 PO) (16 sources) MV-Min- Fe Fum-FA-DHA ( 1 PO) Take by mouth Active Sprintec (4 sources) Start: 11-14-19 19 take 1 tablet by mouth once daily Sprintec 1 tab(s), Oral, Daily, Refill(s) 0 Start Date: 11/13/18 Status: Ordered sulfamethoxazole 800 mg / trimethoprim 160 mg oral tablet (16 sources) Dihydrofolate Reductase Inhibitor Antibacterial, Sulfonamide Antimicrobial Start: 07-05-19 24 take 1 tablet by mouth twice daily [...] January 11, 2023 July 27, 2023 3:06pm [id number] 200 actuat albuterol 0.09 mg/actuat metered dose [...] September 29, 2017 12:00am amoxicillin 875 mg / clavulanate 125 mg [...] mg/ml extended release suspension (11 sources) Uncompetitive G-xirgpd-I-aspartat e Receptor Antagonist, Sigma-1 Agonist Start: 03-03-2019 [...] Discontinued 800 MG PO Three times daily June 12, 2018 1:00am August 26, 2018 5:10pm meclizine hydrochloride [...] 15, 2020 10:23pm Start: 10-23-2018 Mobic Oral, Misbah denny, Refills(s) 0 Start Date: 10/23/18 Status: Ordered [...] tablet Discontinued 500 MG PO Twice daily 14 March 01, 2021 12:00am April 04, 2021 [...] pain] 04-05-2021 Episodic Acute and chronic tonsillitis (20 sources) Enlarged tonsil; Translations: [Hypertrophy of tonsils] Onset: 3 Resolved: 3 04-14-2023 Chronic Allergic reactions (20 sources) Atopic dermatitis; Translations: [Atopic dermatitis, unspecified] Onset: 4 10-13-2018 Chronic Allergic reactions (11 sources) Allergic reaction; Translations: [Allergy, unspecified, initial encounter] 10-16-2018 Episodic Anxiety disorders (20 sources) Generalized anxiety disorder; Translations: [Generalized anxiety [...] (11 sources) Headache; Translations: [Headache] 11-14-2018 Episodic Immunizations and screening for infectious disease (6 sources) Encounter for immunization; Translations: [Exposure to sexually transmissible disorder] Onset: 1 Episodic Inflammatory diseases of female pelvic organs (12 sources) Abscess of vulva; Translations: [Abscess of vulva] Onset: 4 03-01-2021 Episodic Lymphadenitis (11 sources) Mesenteric lymphadenitis; Translations: [Nonspecific mesenteric lymphadenitis] 06-29-2019 Episodic Malaise and fatigue (20 sources) Fatigue; Translations: [Chronic fatigue, unspecified] Onset: 3 Resolved: 3 04-20-2023 Chronic Menstrual disorders (1 source) Missed period; Translations: [Irregular menstruation, unspecified] 03-10-2024 Chronic Miscellaneous mental health disorders (7 sources) Psychophysiologic insomnia; Translations: [Psychophysiologic insomnia] Chronic Mood disorders (20 sources) Depressive disorder; Translations: [Recurrent major depressive episodes, moderate ] Onset: 3 01-19-2017 Chronic Mycoses (8 sources) Candidiasis of skin and nail; Translations: [Candidiasis of skin] Episodic Nausea and vomiting (20 sources) Nausea, vomiting and diarrhea; Translations: [Nausea with vomiting, unspecified] 04-02-2019 Episodic Other connective tissue disease (2 sources) [...] initial encounter] 03-28-2024 Episodic Other liver diseases (20 sources) Fatty (change of) liver, not elsewhere [...] phase type] Chronic Other nervous system disorders (20 sources) Neuropathy; Translations: [Polyneuropathy, unspecified] Onset: 4 11-21-2020 Chronic Other non-traumatic joint disorders (1 source) Pain of right wrist; Translations: [Pain in right wrist] 03-28-2024 Episodic Other nutritional; endocrine; and metabolic disorders (20 sources) Hyperbilirubinemia; Translations: [Other disorders of bilirubin metabolism] Onset: 3 10-20-2022 Chronic Other nutritional; endocrine; and metabolic disorders (2 sources) Body mass index 30+ - obesity; Translations: [Obesity, unspecified] Onset: 3 01-07-2023 Chronic Other nutritional; endocrine; and metabolic disorders (1 source) Other disorders of bilirubin metabolism; Translations: [Other disorders of bilirubin metabolism] Onset: 3 Chronic Other and delivery including normal (9 sources) ; Translations: [Encounter for supervision of normal , unspecified, unspecified trimester] 03-10-2024 Episodic Other screening for suspected conditions (not mental disorders or infectious disease) (20 sources) MRI scan abnormal; Translations: [Abnormal findings on diagnostic imaging of other specified body structures] Onset: 4 09-07-2023 Chronic Other screening for suspected conditions (not mental disorders or infectious disease) (8 sources) Alpha-fetoprotein blood test status; Translations: [Encounter for screening for raised alphafetoprotein level] 05-10-2024 Episodic Other upper respiratory disease (20 sources) Allergic rhinitis; Translations: [Allergic rhinitis, unspecified] [...] absence of other organs] Onset: 3 Episodic Residual codes; unclassified (2 sources) Gestation period, 13 weeks; Translations: [13 weeks gestation of ] 04-11-2024 Episodic Residual codes; unclassified (2 sources) Gestation period, 15 weeks; Translations: [15 weeks gestation of ] 05-01-2024 Episodic Residual codes; unclassified (2 sources) Gestation period, 17 weeks; Translations: [17 weeks gestation of ] 05-10-2024 Episodic Residual codes; unclassified (2 sources) Gestation period, 21 weeks; Translations: [21 weeks gestation of ] 06-09-2024 Episodic Skin and subcutaneous tissue infections (1 [...] ear; Translations: [Otalgia, right ear] Onset: 3 Unclassified (1 source) OB Reminders Onset: 5 06-16-2024 Urinary tract infections (11 sources) Urinary tract infectious disease; Translations: [Urinary tract infection, site not specified] 03-16-2019 Episodic Past or Other Problems Problem Classification Problem Date Documented Da te Episodic/Chronic Asthma (20 sources) Asthma; Translations: [Uncomplicated mild persistent asthma] Onset: 01-07-2023 Resolved: 01-13-2023 11-03-2013 Chronic Asthma (11 sources) Asthma 12-18-2018 E Codes: Natural/environment (5 sources) Bitten by dog, subsequent encounter; Translations: [Bitten by dog, initial encounter] Onset: 02-17-2023 Episodic Malaise and fatigue (4 sources) Weakness; [...] foot Onset: 07-20-2021 Resolved: 07-20-2021 Episodic Other connective tissue disease (20 sources) Tendinitis of ankle; Translations: [Other enthesopathy of unspecified foot and ankle] Onset: 01-11-2024 07-31-2021 Episodic Other gastrointestinal disorders (20 sources) Dysphagia; Translations: [Dysphagia, unspecified] Onset: 07-08-2022 Resolved: 04-14-2023 Episodic Other liver diseases (20 sources) Steatosis of liver; Translations: [Fatty (change of) liver, not elsewhere classified] Onset: 10-20-2022 Resolved: 04-14-2023 Chronic Other nervous system disorders (20 sources) Postoperative pain ; Translations: [Other acute postprocedural pain] Onset: 01-07-2023 Resolved: 04-14-2023 04-14-2023 Episodic Other non-traumatic joint disorders (1 source) Pain in left knee Onset: 07-20-2021 Resolved: 07-20-2021 Episodic Other upper respiratory infections (20 sources) Streptococcal sore throat; Translations: [Streptococcal sore throat] Onset: 03-22-2022 Resolved: 04-14-2023 Episodic Substance-related disorders (20 sources) Smoker; Translations: [Nicotine dependence, unspecified, uncomplicated] Onset: 01-07-2023 Resolved: 04-20-2023 06-02-2015 Chronic Comment on above: Added secondary to d ocumentation in Social History. Results Test Name Value Interpretation Reference Range Facility ALL CBC WITH AUTO DIFFon BASOPHILS ABSOLUTE AUTO 0 [facility] Basophils/100 WBC (Bld) 0.2 % 0.2 - 2.0 % [facility] Eosinophils/100 WBC (Bld) 0.4 % Low 0.9 - 7.0 % [facility] Erythrocyte distribution width (RBC) [Ratio] 13.2 % 11.0 - 15.0 % [facility] Hematocrit (Bld) [Volume fraction] 36.1 % 36.0 - 48.0 % [facility] Hemoglobin (Bld) [Mass/Vol] 12.1 g/dL 12.0 - 16.0 g/dL [facility] IMMATURE GRANULOCYTES ABS AUTO 0.04 High [facility] Immature granulocytes/100 WBC (Bld) 0.4 % 0.0 - 0.5 % [facility] Interpretation and review of laboratory results Abnormal [facility] LYMPHOCYTES ABSOLUTE AUTO 1.7 [facility] Lymphocytes/100 WBC (Bld) 15.1 % Low 20.5 - 60.0 % [facility] MCH (RBC) [Entitic mass] 32.4 pg 26.7 - 34.0 pg [facility] MCHC (RBC) [Mass/Vol] 33.5 g/dL 29.9 - 35.2 g/dL [facility] MCV (RBC) [Entitic vol] 96.5 fL 81.0 - 99.0 fL [facility] MONOCYTES ABSOLUTE AUTO 0.6 [facility] Monocytes/100 WBC (Bld) 5.4 % 1.7 - 12.0 % [facility] NEUTROPHILS ABSOLUTE AUTO 8.8 High [facility] Neutrophils/100 WBC (Bld) 78.5 % High 43.0 - 75.0 % [facility] Platelet mean volume (Bld) [Entitic vol] 9.5 fL 9.5 - 13.5 fL [facility] TBH EO # 0.1 [facility]H PLT 227 [facility] RBC 3.74 Low [facility] WBC 11.2 High [facility] BMPon 06-17-2024 Anion gap [Moles/Vol] 14 mmol/L Normal 6-16 [facility] Comment on above: Performed By: #### 2 [id number] #### [facility] [address] [place] [address] Calcium [Mass/Vol] 8.4 mg/dL Low 8.9-11.1 [facility] Comment on above: Performed By: #### 2 [id number] #### [facility] [address] [place] [address] Chloride [Moles/Vol] 104 mmol/L Normal 101-[address] [facility] Comment on above: Performed By: #### 2 [id number] #### [facility] [address] [place] [address] CO2 [Moles/Vol] 20 mmol/L Low 21-31 [facility] Comment on above: Performed By: #### 2 [id number] #### [facility] [address] [place] [address] Creatinine [Mass/Vol] 0.6 mg/dL Normal 0.5-1.3 [facility] Comment on above: Performed By: #### 2 [id number] #### [facility] [address] [place] [address] Glucose [Mass/Vol] 96 mg/dL Normal 55-199 [facility] Comment on above: Performed By: #### 2 [id number] #### [facility] [address] [place] [address] Potassium [Moles/Vol] 3.5 mmol/L Normal 3.5-5.3 [facility] Comment on above: Performed By: #### 2 [id number] #### [facility] [address] [place] [address] Sodium [Moles/Vol] 134 mmol/L Low 135-145 [facility] Comment on above: Performed By: #### 2 [id number] #### [facility] [address] [place] [address] Urea nitrogen [Mass/Vol] 8 mg/dL Normal 5-21 [facility] Comment on above: Performed By: #### 2 [id number] #### [facility] [address] [place] [address] Urea nitrogen/Creatinine [Mass ratio] 13 No Units Normal 10-20 [facility] Comment on above: Performed By: #### 2 [id number] #### [facility] [address] [place] [address] ED Clinical Summaryon 2024 ED Clinical Summary ED Clinical Summary [address] [address] ED Clinical Summary Person Information Name: DEVORAH SHELTON [facility] Age: 29 Years : 1995 Sex: Female Language: Comoran PCP: JELLY CHERY MD Marital Status: Single Phone: [phone] MRN: Visit Id: Visit Reason: Nausea; Body aches; WEAKNESS OR FATIGUE, NOT ABLE TO DRINK ANYTHING. -PT IS 22 WKS . Speciality: Acuity: 3 Enc Type: Emergency Med Service: Emergency Arrival: 06/16/2024 22:42:49 Discharge: 06/17/2024 01:25:49 LOS: 000 02:43 Checkin: 06/16/2024 22:42:49 Checkout: 06/17/2024 01:25:49 Dispo Type: Home (Routine DC) EVENTS: Event Name Event Status Request Date/Time Start Date/Time Complete Date/Time Arrive Complete 06/16/2024 22:42:49 06/16/2024 22:42:49 06/16/2024 22:42:49 Document Home Meds Request 06/16/2024 22:42:49 Triage Complete 06/16/2024 22:42:49 06/16/2024 22:56:37 06/16/2024 22:56:37 Registration Complete 06/16/2024 22:49:59 06/16/2024 22:49:59 06/16/2024 22:49:59 Reg Complete Request 06/16/2024 22:49:59 Reg Bed Request Complete 06/16/2024 22:49:59 06/16/2024 22:49:59 06/16/2024 22:49:59 Bed Assign Complete 06/16/2024 23:08:51 06/16/2024 23:08:51 06/16/2024 23:08:51 Dr Exam Complete 06/16/2024 23:08:51 06/16/2024 23:13:16 06/16/2024 23:13:16 RN Exam Complete 06/16/2024 23:08:51 06/17/2024 00:03:43 06/17/2024 00:03:43 Registration Request 06/16/2024 23:13:16 Pending Labs Complete 06/16/2024 23:28:02 06/17/2024 00:33:18 Lab Complete 06/16/2024 23:28:02 06/17/2024 00:08:55 Swab Complete 06/16/2024 23:28:02 06/17/2024 00:06:39 Meds Admin Complete 06/16/2024 23:28:02 06/16/2024 23:42:33 Pending Labs Complete 06/16/2024 23:46:45 06/16/2024 23:46:45 06/17/2024 00:08:55 Lab Complete 06/16/2024 23:46:45 06/16/2024 23:46:45 06/17/2024 00:08:55 Discharge Complete 06/17/2024 01:18:01 06/17/2024 01:25:53 06/17/2024 01:25:53 Transfer Complete 06/17/2024 01:25:53 06/17/2024 01:25:53 06/17/2024 01:25:53 ADDRESS: [address] [facility] [id number] PHYS DOC NOTES: MEDICAL INFORMATION: Prescriptions Given: New Medications [id number], [address], [place] [id number], [phone] ondansetron (Zofran ODT 4 mg Tab-Dis) 1 Tablets By Mouth every 6 hours as needed Nausea/Vomiting. Refills: 0. Medications to Continue with No Changes Other Medications cyclobenzaprine By Mouth. ethinyl estradiol-norgestimate (Sprintec) 1 Tablets By Mouth every day. ibuprofen meloxicam (Mobic) By Mouth every day. omeprazole By Mouth every day. venlafaxine By Mouth. PATIENT EDUCATION INFORMATION: Instructions: Nausea and Vomiting, Adult Follow up: With: Address: [facility]: [facility] [address] [place] [address] Adalberto Samuels [place], [place] [id number] Business (1) In 3 days 06/20/2024 Comments: Return to the emergency room if your vomiting recurs or any new symptoms. With: Address: When: [address], [address] [place], [place] [id number] Business (1) In 3 days DIAGNOSIS: 1:Nausea and vomiting Normal [facility] ED Note-Physicianon 06-17-19 ED Note-Physician ED Note-Physician Basic Information Time Seen: Chichi Roy M.D. 06/16/2024 23:13 Chief Complaint states is 22wks preg. nausea today. taking zofran without relief. body aches and fatigue. History of Present Illness The patient is 29-year-old female who is 22 weeks who presented to the emergency room with a generalized body ache nausea and vomiting. The patient said the symptoms started today. She reports vomiting once. The patient states she has not been able to keep anything down. She states she feels tired/weak. The patient denies any abdominal pain. She denies any vaginal bleeding. The patient denies any cough. She denies any sore throat. Denies any runny nose. The patient denies any chest pain, denies any shortness of breath. The patient denies any other associated symptoms. Review of Systems Additional ROS info: Except as noted in the above Review of Systems and in the History of Present Illness all other systems have been reviewed and are negative or noncontributory. Physical Exam Vitals & Measurements T: 37 ???C(Oral) HR: 98(Monitored) RR: 17 BP: 103/64 SpO2: 100% HT: 157 cm WT: 97.3 kg BMI: 39.47 General: alert, no acute distress Skin: warm, dry Head: no trauma, normocephalic Neck: Trachea midline, no tenderness, supple Eye: normal conjunctiva, sclera clear, PERRL, EOMI, vision unchanged ENMT: Oral mucosa moist, no pharyngeal erythema or exudate Cardiovascular: regular rate and rhythm Respiratory: Lungs CTA, respirations non labored, breath sounds equal Gastrointestinal: soft, non distended, no tenderness, no guarding, the uterus is gravid Extremities: no deformity, no trauma Neurological: Alert and oriented, speech normal, no focal neuro deficits Psychiatric: cooperative, affect appropriate for age Medical Decision Making MEDICAL DECISION MAKING Number and Complexity of Problems Differential Diagnosis: [] [facility] Data External documents reviewed: [] My EKG interpretation: [] My CT interpretation: [] My X-ray interpretation: [] My Ultrasound interpretation: [] Decision rules/scores evaluated: [] Discussed with: [] Treatment and Disposition ED Course: The patient presented with nausea and vomiting. She reported some body ache. Possible her symptoms are due to viral cause. COVID influenza negative. Blood work reviewed. White count is elevated. More likely reactive. The urine shows no infection. The patient was given IV fluid and Zofran. Her symptoms improved. She felt better. Will discharge patient home with prescription for Zofran and follow-up with her OB. She is instructed to return to the emergency room if her vomiting recurs or any new symptoms. Shared decision making: Patient Code status: [] Assessment/Plan 1. Nausea and vomiting (R11.2: Nausea with vomiting, unspecified) Orders: ondansetron, 4 mg = 2 mL, Injection, IV Push, Once, Stop date 06/16/24 23:27:00 EST, STAT, Start date 06/16/24 23:27:00 EST, 06/16/24 23:27:00 EST ondansetron, 4 mg = 1 tab(s), Oral, q6hr, PRN Nausea/Vomiting, # 12 tab(s), Refills(s) 0, Pharmacy: [id number], 157, cm, 06/16/24 22:56:00 EST, Height/Length Dosing, 97.3, kg, 06/16/24 22:56:00 EST, Weight Dosing Sodium Chloride 0.9% intravenous solution, 1,000 mL, Soln-IV, IV, Once, Stop date 06/16/24 23:27:00 EST, STAT, Start date 06/16/24 23:27:00 EST, Infuse over 61, minute(s) Basic Metabolic Panel CBC w/ Auto Diff eGFR Influenza A&B Ag Rapid COVID Antigen ([facility] [place]) UA with Cult Rflx Medications Administered Given NS 1000 ml Bolus, 1000 mL, IV Zofran 4 mg/2 mL Injection, 4 mg, IV Push Disposition Plan Patient Discharge Condition Stable, improved Discharge Disposition Discharge home Discharge Prescription List Prescriptions Zofran ODT 4 mg Tab-Dis, 4 mg= 1 tab(s), Oral, q6hr, PRN Follow-up With When Contact Information Donovan VORA In 3 days 06/20/2024 [facility] [address] [facility] [place] [address]- Business (1) Additional Instructions: Return to the emergency room if your vomiting recurs or any new symptoms. JELLY CHERY In 3 days [address] [facility] [address] [place] [address]- Business (1) Additional Instructions: Patient Education Nausea and Vomiting, Adult Problem List/Past Medical History Ongoing Smoker Historical Asthma Depression (emotion) Procedure/Surgical History Tonsillectomy (07/07/2022), None. Medications Inpatient No active inpatient medications Home cyclobenzaprine, Oral ibuprofen Mobic, Oral, Daily omeprazole, Oral, Daily Sprintec, 1 tab(s), Oral, Daily venlafaxine, Oral Zofran ODT 4 mg Tab-Dis, 4 mg= 1 tab(s), Oral, q6hr, PRN Allergies Augmentin (rash) Social History Alcohol - Denies Alcohol Use, 10/25/2013 Current, 11/13/2018 Current, 10/23/2018 Current, 08/05/2017 Substance Abuse - Denies Substance Abuse, 10/25/2013 Current, 11/13/2018 (more content not included)... Normal [facility] Comment on above: Result Comment: Elec tronically Signed By: Kirill Long, Chichi Khoury\.br\Date and Time Signed: 06/17/24 02:11 EST ED Patient Summaryon 025 ED Patient Summary ED Patient Summary [place] [id number] Patient Discharge Instructions Person Information Name: DEVORAH SHELTON Age: 29 Years Arrival Date: 06/16/2024 22:42:49 Discharge Diagnosis: 1:Nausea and vomiting Primary Care Physician: JELLY CHERY MD Provider Information Primary Provider: Chichi Roy M.D. Advanced Grinder Chipper:None The exam and treatment you received in the Emergency Department were for an urgent problem and are not intended as complete care. It is important that you follow up with a doctor, nurse practitioner, or physician???s senior agricultural assistant for ongoing care. If your symptoms become worse or you do not improve as expected and you are unable to reach your usual health care provider, you should return to the Emergency Department. We are available 24 hours a day. DEVORAH SHELTON has been given the following list of patient education materials, prescriptions and follow-up instructions: Follow-up Instructions: With: Address: When: Donovan [facility], [address] [place] [address] [place] [address] Business (1) In 3 days 06/20/2024 Comments: Return to the emergency room if your vomiting recurs or any new symptoms. With: Address: When: [address], [address] [place] [address] Business (1) In 3 days In the event that this physician does not participate in your insurance network, please consult with your insurance company to find a nearby participating provider. Patient Education Materials: Nausea and Vomiting, Adult A MESSAGE TO ALL PATIENTS REGARDING OPIOIDS PRESCRIPTION OPIOIDS: WHAT YOU NEED TO KNOW Prescription opioids can be used to help relieve nkhvnupt-hn-nkapmk pain and are often prescribed following a [...] following guidance from the Food and Drug (more content not included)... Normal [facility] Influenza A&B Agon Influenzae A Ag Negative Normal Negative [facility] Comment on above: Performed By: #### 1 [id number] #### [facility] [address] [place] [address] Influenzae B Ag Negative Normal Negative [facility] Comment on above: Result Comment: Test sensitivity and specificity vary for age group, specimen type, antigen types, and prevalence of disease. Test results must be evaluated in conjunction with other clinical data available to the physician. Individuals who received nasally administered Influenza A vaccine may have positive test results up to 3 days after vaccination. Performed By: #### 1 [id number] #### [facility] [address] [place] [address] Rapid COVID Antigen (MC)on 06-17-2024 Rapid COV Int NEG Ctl Pass Normal [facility] Comment on above: Performed By: #### 2 [id number] #### [facility] [address] [place] [address] Rapid COV Int POS Ctl Pass Normal [facility] Comment on above: Performed By: #### 2 [id number] #### [facility] [address] [place] [address] SARS-CoV+SARS-CoV-2 (COVID-19) Ag IA.rapid Ql (Resp) Not detected Normal Not Detected [facility] Comment on above: Result Comment: The BD Veritor??? System for Rapid Detection of SARS-CoV-2 is a chromatographic digital immunoassay intended for the direct and qualitative detection of SARS-CoV-2 nucleocapsid antigens in nasal swabs from individuals who are suspected of COVID-19 by their healthcare provider within the first five days of the onset of symptoms. Negative results should be treated as presumptive, do not rule out SARS-CoV-2 infection and should not be used as the sole basis for treatment or patient management decisions, including infection control decisions. Negative results should be considered in the context of a patient???s recent exposures, history and the presence of clinical signs and symptoms consistent with COVID-19, and confirmed with a molecular assay, if necessary, for patient management. For in vitro diagnostic use. In the [place], only for use under an Emergency Use Authorization. In the [place], this test has not been FDA cleared or approved; this test has been authorized by FDA under an EUA for use by authorized laboratories; use by laboratories certified under the CLIA, 42 U.S.C. ???263a, that meet requirements to perform moderate, high, or waived complexity tests and at the Point of Care (POC), i.e., in patient care settings operating under a CLIA Certificate of Waiver, Certificate of Compliance, or Certificate of Accreditation. This test has been authorized only for the detection of proteins from SARS-CoV-2, not for any other viruses or pathogens; and, in the [place], this test is only authorized for the duration of the declaration that circumstances exist justifying the authorization of emergency use of in vitro diagnostics for detection and/or diagnosis of the virus that causes COVID-19 under Section 564(b)(1) of the Act, 21 U.S.C. ??? 360bbb-3(b)(1), unless the authorization is terminated or revoked sooner. Performed By: #### 2 [id number] #### [facility] [address] [place] [address] UA with Cult Rflxon 06-17-19 Bilirubin Ql (U) Negative Normal Negative [facility] Comment on above: Performed By: #### 4 [id number] #### [facility] [address] [place] [address] Clarity (U) Clear Normal Clear [facility] Comment on above: Performed By: #### 4 [id number] #### [facility] [address] [place] [address] Color (U) Yellow Normal Yellow [facility] Comment on above: Result Comment: Micr oscopic readings are only performed on those samples that meet specific criteria set forth by [facility]. Performed By: #### 4 [id number] #### [facility] [address] [place] [address] Glucose Ql (U) Negative Normal Negative [facility] Comment on above: Performed By: #### 4 [id number] #### [facility] [address] [place] [address] Hemoglobin Auto test strip (U) [Mass/Vol] Negative Normal Negative [facility] Comment on above: Performed By: #### 4 [id number] #### [facility] [address] [place] [address] Ketones Auto test strip Ql (U) 2+ mg/dL Abnormal Negative [facility] Comment on above: Performed By: #### 4 [id number] #### [facility] [address] [place] [address] Leukocyte esterase Auto test strip Ql (U) Negative Normal Negative [facility] Comment on above: Performed By: #### 4 [id number] #### [facility] [address] [place] [address] Nitrite Auto test strip Ql (U) Negative Normal Negative [facility] Comment on above: Performed By: #### 4 [id number] #### [facility] [address] [place] [address] pH (U) 6.0 [pH] Invalid Interpretation Code 5.0-9.0 [facility] Comment on above: Performed By: #### 4 [id number] #### [facility] [address] [place] [address] Protein Ql (U) Trace Abnormal Negative [facility] Comment on above: Performed By: #### 4 [id number] #### [facility] [address] [place] [address] Specific gravity (U) [Rel density] 1.034 Invalid Interpretation Code 1.005-1.03 0 [facility] Comment on above: Performed By: #### 4 [id number] #### [facility] [address] [place], [place] [id number] Urobilinogen (U) [Mass/Vol] 2 mg/dL Abnormal Negative [facility] Comment on above: Performed By: #### 4 [id number] #### [facility] [address] [place] [address] eGFRon 06-17-2024 eGFR 126 mL/min/1.73 m2 Normal >=59 [facility] Comment on above: Performed By: #### 1 [id number] #### [facility] [address] [place] [address] CBC w/ Auto Diffon 5 Basophils/100 WBC (Bld) 0.4 % Normal 0.0-2.0 [facility] Comment on above: Performed By: #### 2 [id number] #### [facility] [address] [place] [address] Basophils/Leukocytes Auto (Bld) [Pure # fraction] 0.0 E9/L Normal 0.0-0.2 [facility] Comment on above: Performed By: #### 2 [id number] #### [facility] [address] [place] [address] Eosinophils (Bld) [#/Vol] 0.0 E9/L Normal 0.0-0.5 [facility] Comment on above: Performed By: #### 2 [id number] #### [facility] [address] [place] [address] Eosinophils/100 WBC (Bld) 0.2 % Normal 0.0-8.0 [facility] Comment on above: Performed By: #### 2 [id number] #### [facility] [address] [place] [address] Erythrocyte distribution width (RBC) [Ratio] 13.4 % Normal 10.9-14.2 [facility] Comment on above: Performed By: #### 2 [id number] #### [facility] [address] [place] [address] Hematocrit (Bld) [Volume fraction] 35.5 % Normal 34.0-46.0 [facility] Comment on above: Performed By: #### 2 [id number] #### [facility] [address] [place] [address] Hemoglobin (Bld) [Mass/Vol] 12.3 g/dL Normal 12.0-16.0 [facility] Comment on above: Performed By: #### 2 [id number] #### [facility] [address] [place] [address] Lymphocytes (Bld) [#/Vol] 0.9 E9/L Low 1.0-4.0 [facility] Comment on above: Performed By: #### 2 [id number] #### [facility] [address] [place] [address] Lymphocytes/100 WBC (Bld) 7.3 % Low 14.0-50.0 [facility] Comment on above: Performed By: #### 2 [id number] #### [facility] [address] [place] [address] MCH (RBC) [Entitic mass] 32.6 pg Normal 27.0-34.0 [facility] Comment on above: Performed By: #### 2 [id number] #### [facility] [address] [place] [address] MCHC (RBC) [Mass/Vol] 34.7 g/dL Normal 31.4-36.0 [facility] Comment on above: Performed By: #### 2 [id number] #### [facility] [address] [place] [address] MCV (RBC) [Entitic vol] 93.9 fL Normal 80.0-100.0 [facility] Comment on above: Performed By: #### 2 [id number] #### [facility] [address] [place] [address] Monocytes (Bld) [#/Vol] 0.7 E9/L Normal 0.2-1.0 [facility] Comment on above: Performed By: #### 2 [id number] #### [facility] [address] [place] [address] Neutrophils (Bld) [#/Vol] 11.4 E9/L High 2.0-7.5 [facility] Comment on above: Performed By: #### 2 [id number] #### [facility] [address] [place] [address] Neutrophils/100 WBC (Bld) 87.0 % High 36.0-75.0 [facility] Comment on above: Performed By: #### 2 [id number] #### [facility] [address] [place] [address] Platelet mean volume (Bld) [Entitic vol] 7.6 fL Normal 6.4-10.8 [facility] Comment on above: Performed By: #### 2 [id number] #### [facility] [address] [place] [address] Platelets (Bld) [#/Vol] 223.0 E9/L Normal 150.0-500. 0 [facility] Comment on above: Performed By: #### 2 [id number] #### [facility] [address] [place] [address] RBC (Bld) [#/Vol] 3.8 E12/L Low 4.3-5.9 [facility] Comment on above: Performed By: #### 2 [id number] #### [facility] [address] [place] [address] WBC corrected for nucl RBC Auto (Bld) [#/Vol] 13.0 E9/L High 4.0-11.0 [facility] Comment on above: Performed By: #### 2 [id number] #### [facility] [address] [place] [address] UA with Cult Rflxon 06-16-19 Type of Urine collection method Clean Catch Normal [facility] Comment on above: Performed By: #### 4 [id number] #### [facility] [address] [place] [address] US for pregnancyon TITLE OF EXAM: OB Ultrasound: REASON FOR EXAM: Follow up for outflow tracts, 3VC, and 4 chamber heart. TECHNIQUE: Grayscale and M-mode Doppler imaging is performed. FINDINGS: heart rate: 143 bpm MINNIE: 16.0 cm (9.7 - 21.7) BPD: 5.3 cm HC: 20.6 cm AC: 17.6 cm FL: 4.2 cm GA for sonogram: 22.7 wk (21.2 - 24.1) DIANA: 10/15/2024 Gestation: Single Position: Cephalic Placenta Location: Posterior Placental Grade: I Cervical Length: 3.1 cm 4 Chamber heart: Yes 3 Vessel Cord: Yes (LVOT visualized) Abnormal? (RVOT not well visualized) IMPRESSION: 1. Limited followup anatomy survey. 3V cord visualized today. Cardiac assessment limited. 2. 22.7 week estimated sonographic age. Dictated and transcribed 06/15/2024/tm This report has been electronically signed and approved by the interpreting radiologist. IMAGING Miguel Gonzalez MD - 06/15/2024 TITLE OF EXAM: OB Ultrasound: REASON FOR EXAM: Follow up for outflow tracts, 3VC, and 4 chamber heart. TECHNIQUE: Grayscale and M-mode Doppler imaging is performed. FINDINGS: heart rate: 143 bpm MINNIE: 16.0 cm (9.7 - 21.7) BPD: 5.3 cm HC: 20.6 cm AC: 17.6 cm FL: 4.2 cm GA for sonogram: 22.7 wk (21.2 - 24.1) DIANA: 10/15/2024 Gestation: Single Position: Cephalic Placenta Location: Posterior Placental Grade: I Cervical Length: 3.1 cm 4 Chamber heart: Yes 3 Vessel Cord: Yes (LVOT visualized) Abnormal? (RVOT not well visualized) IMPRESSION: 1. Limited followup anatomy survey. 3V cord visualized today. Cardiac assessment limited. 2. 22.7 week estimated sonographic age. Dictated and transcribed 06/15/2024/tm This report has been electronically signed and approved by the interpreting radiologist. [facility] US for pregnancyOrdered By: Miguel Gonzalez on 06-15-2024 [facility] [employer] Work Phone: US OB LIMITED 1+ FETUSESon 0 06-14-2024 US OB LIMITED 1+ FETUSES TITLE OF EXAM: OB Ultrasound: REASON FOR EXAM: Follow up for outflow tracts, 3VC, and 4 chamber heart. TECHNIQUE: Grayscale and M-mode Doppler imaging is performed. FINDINGS: heart rate: 143 bpm MINNIE: 16.0 cm (9.7 - 21.7) BPD: 5.3 cm HC: 20.6 cm AC: 17.6 cm FL: 4.2 cm GA for sonogram: 22.7 wk (21.2 - 24.1) DIANA: 10/15/2024 Gestation: Single Position: Cephalic Placenta Location: Posterior Placental Grade: I Cervical Length: 3.1 cm 4 Chamber heart: Yes 3 Vessel Cord: Yes (LVOT visualized) Abnormal? (RVOT not well visualized) IMPRESSION: 1. Limited followup anatomy survey. 3V cord visualized today. Cardiac assessment limited. 2. 22.7 week estimated sonographic age. Dictated and transcribed 06/15/2024/tm This report has been electronically signed and approved by the interpreting radiologist. Normal Not Available Comment on above: Order Comment: US OB INCOMPLETE ANATOMY Estimated Date of Delivery: 10/15/24 Gestational Age as of 06/09/2024: 21w5d US for pregnancyon Radiology Study observation (narrative) [facility] Urinalysis macro (dipstick) panel (U)on 06-09-2024 Bilirubin, UA Negative Negative - 4(70) +++ mg/dL [facility] Blood, UA Negative Negative - 50 Raúl/mcL [facility] Clarity, UA Clear [facility] Color, UA Yellow [facility] Glucose, UA Negative Negative - 2000(110) ++++ mg/dL [facility] Interpretation and review of laboratory results Abnormal [facility] Ketones, UA Negative Negative - 160(16) ++++ mg/dL [facility] Leukocytes, UA Trace Negative - 500+++ Zainab/mcL [facility] Nitrite, UA Negative Negative - Positive [facility] pH, UA 7 5 - 9 [facility] Protein, UA Trace Negative - 2000(20) ++++ mg/dL [facility] Spec Grav, UA 1.025 1 - 1.03 [facility] Urobilinogen, UA 0.2 0.2 - 12 mg/dL [facility] US OB 14+ WEEKS ANATOMY SCAN on 05-31-2024 US OB 14+ WEEKS ANATOMY SCAN EXAM: OB Ultrasound: REASON FOR EXAM: Anatomy. COMPARISON: None. TECHNIQUE: Grayscale and M-mode Doppler imaging is performed. FINDINGS: heart rate: 153 bpm BPD: 4.7 cm HC: 17.3 cm AC: 15.4 cm FL: 3.4 cm GA for sonogram: 20.4 weeks (18.6 - 22.1) DIANA: 10/15/2024 Cervix length: 3.8 cm Weight Estimate: Weight: 362 gm/0 lbs, 12 oz (309 - 414 gm) [place] Normal: 356 gm (296 - 417 gm) [place] Wt%: 56% for 20.4 wks Presentation: Cephalic Lie: Longitudinal Amniotic Fluid: Subjectively normal Placental Location: Anterior Distance from Placenta edge to Cervical os: 7.5 cm Cervical Length: 3.8 cm, closed Heart Rate: 153 bpm Anatomy Observed: Lateral Ventricles: Visualized Cerebellum: Visualized Posterior Fossa: Visualized Nose Lips: Visualized Orbits: Visualized 4 Chamber heart: Sub-visualized RVOT/LVOT: LVOT seen; RVOT not seen Diaphragm: Visualized Stomach: Visualized Kidneys: Visualized Abd Cord Insert: Visualized Bladder: Visualized Umbilical Arteries: Visualized 3 Vessel Cord: Not visualized Spine: Visualized Extremities: Visualized Gender: XY Comments: Active fetus. Suboptimal exam due to maternal size. IMPRESSION: 1. Single live intrauterine gestation with estimated sonographic age 20.4 weeks. 2. Visualized structures as noted above are unremarkable. Certain structures are not well demonstrated due to habitus, however. Dictated and transcribed 05/31/2023/lindy This report has been electronically signed and approved by the interpreting radiologist. Normal Not Available Comment on above: Order Comment: US OB ANATOMY SINGLE W US OB CERVICAL LENGTH Estimated Date of Delivery: 10/15/24 Gestational Age as of 05/10/2024: 20w2d RECURRENT VAGINITIS (HTRX)on 05-11-2024 ATOPOBIUM VAGINAE 0 [facility] ATOPOBIUM VAGINAE Not detected [facility] BVAB 2,3 (BACTERIAL VAGINOSIS ASSOCIATED BACTERIA 2, 3); MOBILUNCUS SPP 0 [facility] BVAB 2,3 (BACTERIAL VAGINOSIS ASSOCIATED BACTERIA 2, 3); MOBILUNCUS SPP Not detected [facility] ZABRINA ALBICANS, PARAPSILOSIS, TROPICALIS 0 [facility] ZABRINA ALBICANS, PARAPSILOSIS, TROPICALIS Not detected [facility] ZABRINA GLABRATA 0 [facility] ZABRINA GLABRATA Not detected [facility] ZABRINA KRUSEI 0 [facility] ZABRINA KRUSEI Not detected [facility] CHLAMYDIA TRACHOMATIS 0 [facility] CHLAMYDIA TRACHOMATIS Not detected N [facility] GARDNERELLA VAGINALIS 0 [facility] GARDNERELLA VAGINALIS Not detected N [facility] Interpretation and review of laboratory results Abnormal [facility] MEGASPHAERA (TYPES 1, 2) 29.944 Abnormal [facility] MEGASPHAERA (TYPES 1, 2) Detected Abnormal [facility] MYCOPLASMA GENITALIUM 0 [facility] MYCOPLASMA GENITALIUM Not detected N [facility] NEISSERIA GONORRHOEAE 0 [facility] NEISSERIA GONORRHOEAE Not detected N [facility] TET B, TET M 25.811 Abnormal [facility] TET B, TET M Detected Abnormal [facility] TRICHOMONAS VAGINALIS 0 [facility] TRICHOMONAS VAGINALIS Not detected N [facility] Urinalysis macro (dipstick) panel (U)on 05-10-2024 Bilirubin, UA Negative Negative - 4(70) +++ mg/dL [facility] Blood, UA Negative Negative - 50 Raúl/mcL [facility] Clarity, UA Clear [facility] Color, UA Yellow [facility] Glucose, UA Negative Negative - 2000(110) ++++ mg/dL [facility] Interpretation and review of laboratory results Abnormal [facility] Ketones, UA Positive Negative - 160(16) ++++ mg/dL [facility] Comment on above: 15 Leukocytes, UA Trace Negative - 500+++ Zainab/mcL [facility] Nitrite, UA Negative Negative - Positive [facility] pH, UA 6 5 - 9 [facility] Protein, UA Trace Negative - 1999(20) ++++ mg/dL [facility] Spec Grav, UA 1.03 1 - 1.03 [facility] Urobilinogen, UA 0.2 0.2 - 12 mg/dL [facility] S. pyogenes DNA CRYSTAL+probe No m (Unsp spec)on 04-25-2024 Interpretation and review of laboratory results Abnormal [facility] RESULT Positive Negative [facility] Urinalysis macro (dipstick) panel (U)on 04-11-2024 Bilirubin, UA Negative Negative - 4(70) +++ mg/dL [facility] Blood, UA Negative Negative - 50 Raúl/mcL [facility] Clarity, UA Clear [facility] Color, UA Yellow [facility] Glucose, UA Negative Negative - 1999(110) ++++ mg/dL [facility] Interpretation and review of laboratory results Normal [facility] Ketones, UA Negative Negative - 160(16) ++++ mg/dL [facility] Leukocytes, UA Negative Negative - 500+++ Zainab/mcL [facility] Nitrite, UA Negative Negative - Positive [facility] pH, UA 6 5 - 9 [facility] Protein, UA Negative Negative - 1999(20) ++++ mg/dL [facility] Spec Grav, UA 1.025 1 - 1.03 [facility] Urobilinogen, UA 0.2 0.2 - 12 mg/dL [facility] ALL RUBELLA IGG ABon 024 RUBELLA ANTIBODIES, IGG 6.50 Immune >0.99 index [facility] Comment on above: Non-immune <0.90 Equivocal 0.90 - 0.99 Immune >0.99 Performed at: - [facility] [address] [id number] Forestry Laborer: Myron Milton PhD, Phone: [phone] HBSAG SCREENon 04-05-2024 HBSAG SCREEN Negative Negative [facility] Comment on above: Performed at: CB - [facility] [address] [id number] Forestry Laborer: Myron Milton PhD, Phone: [phone] HCV ANTIBODY RFX TO [facility] 04-05-2024 HCV AB Non-Reactive Non Reactive [facility] INTERPRETATION: Comment . [facility] Comment on above: Not infected with HC V unless early or acute infection is suspected (which may be delayed in an immunocompromised individual), or other evidence exists to indicate HCV infection. HIV AB/P24 AG WITH REFLEXon 04-05-2024 HIV AB/P24 AG SCREEN Non-Reactive Non Reactive [facility] [facility] Comment on above: HIV-1/HIV-2 antibodi es and HIV-1 p24 antigen were NOT detected. There is no laboratory evidence of HIV infection. HIV Negative Performed at: [address] [id number] Forestry Laborer: Myron Milton PhD, Phone: [phone] No [facility] RAPID PLASMA REAGIN, QUANTon 04-05-2024 RAPID PLASMA REAGIN, QUANT Non-Reactive NonRea<1:1 titer [facility] Comment on above: Please Note: This te st does not meet current guidelines for screening and diagnosis of syphilis. This test is intended for following treatment response in patients being treated for syphilis infection. To screen for syphilis infection, a reflex cascade that includes both RPR and a treponema-specific assay should be utilized, such as Treponema pallidum (Syphilis) Screening [place] (184221) or Rapid Plasma Reagin (RPR) Test With Reflex to Quantitative RPR and Confirmatory Treponema pallidum Antibodies ([id number]). Performed at: [address] [id number] Forestry Laborer: Myron Milton PhD, Phone: [phone] URINE CULTURE, ROUTINEon Bacteria identified Cx Nom (U) Urine Culture, Routine [facility] Bacteria identified Cx Nom (U) Mixed urogenital lenka [facility] Bacteria identified Cx Nom (U) 10,000-25,000 colony forming units per mL [facility] Bacteria identified Cx Nom (U) Performed at: [facility] Bacteria identified Cx Nom (U) [address] [place] [phone] [facility] Bacteria identified Cx Nom (U) Forestry Laborer: Myron Milton PhD, Phone: [phone] [facility] ALL CBC WITH AUTO DIFFon BASOPHILS ABSOLUTE AUTO 0 [facility] Basophils/100 WBC (Bld) 0.2 % 0.2 - 2.0 % [facility] Eosinophils/100 WBC (Bld) 0.6 % Low 0.9 - 7.0 % [facility] Erythrocyte distribution width (RBC) [Ratio] 12.6 % 11.0 - 15.0 % [facility] Hematocrit (Bld) [Volume fraction] 38.4 % 36.0 - 48.0 % [facility] Hemoglobin (Bld) [Mass/Vol] 12.9 g/dL 12.0 - 16.0 g/dL [facility] IMMATURE GRANULOCYTES ABS AUTO 0.03 [facility] Immature granulocytes/100 WBC (Bld) 0.3 % 0.0 - 0.5 % [facility] Interpretation and review of laboratory results Abnormal [facility] LYMPHOCYTES ABSOLUTE AUTO 1.8 [facility] Lymphocytes/100 WBC (Bld) 19.8 % Low 20.5 - 60.0 % [facility] MCH (RBC) [Entitic mass] 31.9 pg 26.7 - 34.0 pg [facility] MCHC (RBC) [Mass/Vol] 33.6 g/dL 29.9 - 35.2 g/dL [facility] MCV (RBC) [Entitic vol] 94.8 fL 81.0 - 99.0 fL [facility] MONOCYTES ABSOLUTE AUTO 0.6 [facility] Monocytes/100 WBC (Bld) 6.9 % 1.7 - 12.0 % [facility] NEUTROPHILS ABSOLUTE AUTO 6.7 High [facility] Neutrophils/100 WBC (Bld) 72.2 % 43.0 - 75.0 % [facility] Platelet mean volume (Bld) [Entitic vol] 9.4 fL Low 9.5 - 13.5 fL [facility] TBH EO # 0.1 [facility] TBH PLT 252 [facility] TB RBC 4.05 Low [facility] TBH WBC 9.3 [facility] CLINISYNC [facility] ALL TYPE AND SCREENon 2023 ABO and Rh group Nom (Bld) Blood group O Rh(D) positive [facility] CL[facility]NC [facility] MLR HEMOGLOBIN A1Con 024 Glucose [Mass/Vol] 91 mg/dL [facility] HbA1c (Bld) [Mass fraction] 4.8 % 4.5 - 6.2 % [facility] Comment on above: ADA RECOMMENDED LIMI T 4.0 - 6.0 ADA THERAPEUTIC TARGET < 7.0 ACTION SUGGESTED > 7.0 [facility] DRUG SCREEN RAPID (URINE )on 04-04-2024 AMPHETAMINE SCREEN URINE Negative NEGATIVE [facility] BARBITURATES SCREEN URINE Negative NEGATIVE [facility] BENZODIAZEPINES SCREEN URINE Negative NEGATIVE [facility] BUPRENORPHINE SCREEN URINE Negative NEGATIVE [facility] Comment on above: DRUG CLASS TEST SYST EM CUT-OFF CONCENTRATIONS ARE FOLLOWS: AMP (Amphetamine): 500 ng/mL BAR (Barbiturates): 200 ng/mL BZO (Benzodiazepines): 150 ng/mL BUP (Buprenorphine): 10 ng/mL WILLY (Cocaine): 150 ng/mL mAMP (Methamphetamine): 500 ng/mL MTD (Methadone): 200 ng/mL OPI (Opiates): 100 ng/mL OXY (Oxycodone): 100 ng/mL PCP (Phencyclidine): 25 ng/mL THC (Cannabinoids): 50 ng/mL TCA (Trycyclic Antidepressants): 300 ng/mL CANNABINOID SCREEN URINE Negative NEGATIVE [facility] COCAINE SCREEN URINE Negative NEGATIVE [facility] METHADONE SCREEN URINE Negative NEGATIVE NO MS [facility] METHAMPHETAMINES SCREEN URINE Negative NEGATIVE [facility] OPIATE SCREEN URINE Negative NEGATIVE [facility] OXYCODONE SCREEN URINE Negative NEGATIVE NO [facility] PHENCYCLIDINE SCREEN URINE Negative NEGATIVE [facility] TRICYCLIC ANTIDEPRESSANT URINE Negative NEGATIVE [facility] XR FOREARM 2 VIEWS RIGHTon 1 05-28-2023 [...] Note-Physician ED Note-Physician Basic Information Time Seen: pK Kamara PA-C 03/24/2024 20:43 Chief Complaint pt [...] and symmetry. No ataxia with finger-nose or [id number]. Intact sensation of bilateral upper and lower [...] Information JELLY CHERY In 3 days 03/27/[address] Business (1) Additional Instructions: Patient Education Wrist Sprain, Adult Attestation Patient seen and evaluated by the physician senior agricultural assistant. Attending physician was present in the emergency department and supervised care. This visit was performed by both the physician and an APC. I performed all aspects of the MDM as documented. This report was transcribed using voice recognition software. (more content not included)... Normal [facility] Comment on above: Result Comment: Elec tronically [...] mGy = na DAP = na Normal [facility] ED Clinical Summaryon 2023 ED Clinical Summary ED Clinical Summary [place] [id number] ED Clinical Summary Person Information Name: DEVORAH SHELTON [place] Age: 29 Years : 1995 Sex: Female Language: Comoran PCP: JELLY CHERY MD Marital Status: Single Phone: [phone] Visit Id: Visit Reason: Facial abrasion, minor; [...] 03/24/2024 22:38:59 03/24/2024 22:38:59 03/24/2024 22:38:59 ADDRESS: [address] [place] [id number] PHYS DOC NOTES: MEDICAL INFORMATION: Prescriptions Given: Medications to Continue with No Changes Other Medications cyclobenzaprine By Mouth. ethinyl estradiol-norgestimate (Sprintec) 1 Tablets By Mouth every day. ibuprofen meloxicam (Mobic) By Mouth every day. omeprazole By Mouth every day. venlafaxine By Mouth. PATIENT EDUCATION INFORMATION: Instructions: Wrist Sprain, Adult Follow up: With: Address: When: JELLY [address], [address] [place] [phone] Business (1) In 3 days 03/27/2024 DIAGNOSIS: Accidental fall; Facial abrasion; Right wrist sprain Normal [facility] ED Patient Summaryon 024 ED Patient Summary ED Patient Summary [address] [address] Patient Discharge Instructions Person Information Name: DEVORAH SHELTON Age: 29 Years Arrival Date: 03/24/2024 18:45:11 Discharge Diagnosis: Accidental fall; Facial abrasion; Right wrist sprain Primary Care Physician: JELLY CHERY MD Provider Information Primary Provider: Luther Ventura DO Advanced Grinder Chipper:Kp Kamara PA-C. The exam and treatment you received in the Emergency Department were for an urgent problem and are not intended as complete care. It is important that you follow up with a doctor, nurse practitioner, or physician???s senior agricultural assistant for ongoing care. If your symptoms become worse or you do not improve as expected and you are unable to reach your usual health care provider, you should return to the Emergency Department. We are available 24 hours a day. DEVORAH SHELTON has been given the following list of patient education materials, prescriptions and follow-up instructions: Follow-up Instructions: With: Address: When: JELLY [address], [address] [place] [phone] [facility] (1) In 3 days 03/27/2024 In the event that this physician does not participate in your insurance network, please consult with your insurance company to find a nearby participating provider. Patient Education Materials: Wrist Sprain, Adult A MESSAGE TO ALL PATIENTS REGARDING OPIOIDS PRESCRIPTION OPIOIDS: WHAT YOU NEED TO KNOW Prescription opioids can be used to help relieve vvpjorij-uh-veuavs pain and are often prescribed following a [...] with calvin (more content not included)... Normal [facility] HCG ( test) Ql (U)o n 03-10-2024 Interpretation and review of laboratory results Abnormal [facility] Preg Test, Ur Positive [facility] Urinalysis macro (dipstick) panel (U)on 03-10-2024 Bilirubin, UA Positive Negative - 4(70) +++ mg/dL [facility] Comment on above: small Blood, UA Negative Negative - 50 Raúl/mcL [facility] Clarity, UA Clear [facility] Color, UA Yellow [facility] Glucose, UA Negative Negative - 2000(110) ++++ mg/dL [facility] Interpretation and review of laboratory results Abnormal [facility] Ketones, UA Positive Negative - 160(16) ++++ mg/dL [facility] Comment on above: 40 Leukocytes, UA Negative Negative - 500+++ Zainab/mcL [facility] Nitrite, UA Negative Negative - Positive [facility] pH, UA 6.5 5 - 9 [facility] Protein, UA Negative Negative - 2000(20) ++++ mg/dL [facility] Spec Grav, UA 1.025 1 - 1.03 [facility] Urobilinogen, UA 0.2 0.2 - 12 mg/dL [facility] hCG, quantitative, on 02-17-2024 HCG.intact+Beta subunit Qn 87 mIU/mL [facility] Comment on above: Female (Non- ) 0 - 5 (Postmenopausal) 0 - 8 Female () Weeks of Gestation 3 6 - 71 4 10 - 750 5 191 - 8311 6 130 - 65465 7 1611 -412250 8 87512 -780809 9 09793 -853860 10 29890 -333235 12 26570 625876 14 92400 - 21918 15 93582 - 88496 16 0045 - 68966 17 9890 - 27357 18 7164 - [phone] Juan Luis ECLIA methodology Performed at: - [address] [id number] Forestry Laborer: Myron Milton PhD, Phone: [phone] Specimen Comment: A courtesy copy of this report has been sent to [phone] [facility] XR Hand 3+ Views Lefton 12-24 [...] ANTHONY Technologist: BISI Technical Comments Radiation Dose: Ka,r in mGy = na DAP = na Normal [facility] ED Clinical Summaryon 2023 ED Clinical Summary ED Clinical Summary [address] [address] ED Clinical Summary Person Information Name: DEVORAH SHELTON [place] Age: 28 Years : 1995 Sex: Female Language: Comoran PCP: JELLY CHERY MD Marital Status: Single Phone: [phone] MRN: Visit Id: Visit Reason: Finger injury - [...] 01/15/2024 22:46:45 01/15/2024 22:46:45 01/15/2024 22:46:45 ADDRESS: [address] [place] [id number] PHYS DOC NOTES: MEDICAL INFORMATION: Prescriptions Given: Medications to Continue with No Changes Other Medications cyclobenzaprine By Mouth. ethinyl estradiol-norgestimate (Sprintec) 1 Tablets By Mouth every day. ibuprofen meloxicam (Mobic) By Mouth every day. omeprazole By Mouth every day. venlafaxine By Mouth. PATIENT EDUCATION INFORMATION: Instructions: Musculoskeletal Pain Follow up: With: Address: [facility]: [address], [address] [place] [phone] Business (1) In 3 days 01/18/2024 Comments: To schedule follow-up appointment with your family physician if symptoms not improve in the next 2 to 3 days. Alternate Tylenol, ibuprofen, and ice as needed for pain management. Return to the ED with any worsening symptoms DIAGNOSIS: Hand pain, left Normal [facility] ED Note-Physicianon 01-15-20 ED Note-Physician ED [...] active prescription medications Follow-up With When Contact JELLY CHERY In 3 days 01/18/2024 EDT [address] [facility] [address] [place], [place] [phone]- Business (1) Additional Instructions: To schedule follow-up appointment with your family physician if symptoms not improve in the next 2 to 3 days. Alternate Tylenol, ibuprofen, and ice as needed for pain management. Return to the ED with any worsening symptoms Patient Education Musculoskeletal Pain Attestation Patient seen and evaluated by the physician senior agricultural assistant. Attending physician was present in the emergency department and supervised care. This visit was performed by both the physician and an APC. I performed all aspects of the MDM as documented. This report was transcribed using voice recognition software. Every effort was made to ensure accuracy, however, inadvertently computerized cotton washer mistakes may be present. Appropriate healthcare PPE [...] Former sm (more content not included)... Normal [facility] Comment on above: Result Comment: Elec tronically Signed By: Jason Frost PA-C\.br\Date and Time Signed: 01/15/24 22:43 EDT\.br\Electronically Co-Signed By: Roman Syed DO\.br\Date and Time Co-Signed: 01/15/24 23:00 EDT ED Patient Summaryon 024 ED Patient Summary ED Patient Summary [place] [address] Patient Discharge Instructions Person Information Name: DEVORAH SHELTON Age: 28 Years Arrival Date: 01/15/2024 21:22:33 Discharge Diagnosis: Hand pain, left Primary Care Physician: MIRI BA, JELLY Al Provider Information Primary Provider: Roman Syed DO Advanced Grinder Chipper:Jason Frost PA-C The exam and treatment you received in the Emergency Department were for an urgent problem and are not intended as complete care. It is important that you follow up with a doctor, nurse practitioner, or physician?s senior agricultural assistant for ongoing care. If your symptoms become worse or you do not improve as expected and you are unable to reach your usual health care provider, you should return to the Emergency Department. We are available 24 hours a day. DEVORAH SHELTON has been given the following list of patient education materials, prescriptions and follow-up instructions: Follow-up Instructions: With: Address: When: JELLY MIRI [address] [place] [address], [address] [place] [phone] [facility] (0) In 3 days 01/18/2024 Comments: To schedule [...] opioids can be used to help relieve zedesbtc-pn-jcpxvf pain and are often prescribed following a [...] Visit ww (more content not included)... Normal [facility] Image-guided pap and hpv mrn a e6/e7 reflex genotypes 16, 18/45on 01-14-2024 Check Examiner Cyto stain Nom (Cvx/Vag) [ID] Comment [facility] Comment on above: Micheal Lanie, Cy totechnologist (ASCP) Cytology report Cyto stain Doc (Cvx/Vag) Comment [facility] Comment on above: NEGATIVE FOR INTRAEP ITHELIAL LESION OR MALIGNANCY. Cytology report Cyto stain.thin prep Doc (Cvx/Vag) Comment [facility] Comment on above: This liquid based Th inPrep(R) pap test was screened with the use of an image guided system. Diagnosis ICD code [Identifier] Comment [facility] Comment on above: Z12.4 HPV 16+18+31+33+35+39+45+5 1+52+56+58+59+66+68 DNA Probe+sig amp Ql (Cvx) Negative Negative [facility] Comment on above: This nucleic acid am plification test detects fourteen high- risk HPV types (16,18,31,33,35,39,45,51,52,56,58,59,66,68) without differentiation. HPV Genotype Reflex Comment [facility] Comment on above: Criteria not met, HP V Genotype not performed. Microscopic observation Other stain Nom (Unsp spec) . [facility] Note: Comment [facility] Comment on above: The Pap smear is a s creening test designed to aid in the detection of premalignant and malignant conditions of the uterine cervix. It is not a diagnostic procedure and should not be used as the sole means of detecting cervical cancer. Both false-positive and false-negative reports do occur. Statement of adequacy Cyto stain (Cvx/Vag) [Interp] Comment [facility] Comment on above: Satisfactory for saniya luation. Endocervical and/or squamous metaplastic cells (endocervical component) are present. Performed at: - [address] [id number] Forestry Laborer: Moon Tan MD, Phone: [phone] Performed at: - [address] [id number] Forestry Laborer: Moon Tan MD, Phone: [phone] Specimen Comment: Source.............Cervix Specimen Comment: LMP / Prev Treat...VMI=[id number] Specimen Comment: No. of containers..01 [facility] Cervical or vaginal smear or scraping studyOrdered By: Teresa Weber on 01-11-2024 [facility] GENITAL CULTUREon 01-03-2024 GENITAL CULTURE MICROBIOLOGY REPORT [facility], [address] [place] [address], [place], [address] PATIENT: DEVORAH SHELTON LOCATION: : 1995 AGE: 28 SEX: F ADM: 01/03/24 Att. Physician: JELLY CHERY Order Id: [id number] Req. Physician: ALPA PORTER Source: vagina Site: genital Collected: 01/03/24 16:08 Current Antibiotics: none Antibiotics comment: - C O M M E N T S post culture STATUS OF ORDERED AND REPORTED TESTS GENITAL CULTURE FINAL 01/06/24 GRAM STAIN FINAL 01/04/24 GENITAL CULTURE FINAL 01/06/24 06:43 01/04/24 Normal lenka; no pathogens isolated-preliminary 01/05/24 Mixed genital lenka present. 01/06/24 No GC isolated GRAM STAIN FINAL 01/04/24 07:51 01/04/24 No segmented neutrophils observed. Moderate epithelial cells observed. Many large gram positive bacilli. Smear consistent with Normal Vaginal Lenka. Normal [facility] UA W/O MICROSCOPICon 024 BILIRUBIN, URINE Negative Normal NEGATIVE [facility] Comment on above: Performed By: #### W UA #### [facility] [address] [address] CHARACTER Clear Normal CLEAR-SL CLOUD [facility] Comment on above: Performed By: #### W UA #### [facility] [place] [id number] Color (U) Yellow Normal STRAW-YELL OW [facility] Comment on above: Performed By: #### W UA #### [facility] [address] [place] [address] Glucose Ql (U) Negative Normal NEGATIVE [facility] Comment on above: Performed By: #### W UA #### [facility] [address] [place] [address] Hemoglobin Ql (U) Negative Normal NEGATIVE [facility] Comment on above: Performed By: #### W UA #### [facility] [address] [place] [address] Ketones Ql (U) Negative Normal NEGATIVE [facility] Comment on above: Performed By: #### W UA #### [facility] [address] [place] [address] LEUKOCYTES Negative Normal NEGATIVE [facility] Comment on above: Performed By: #### W UA #### [facility] [address] [place] [address] Nitrite Ql (U) Negative Normal NEGATIVE [facility] Comment on above: Performed By: #### W UA #### [address] [place] [address] pH (U) 7.00 [pH] Normal 5.0-9.0 [facility] Comment on above: Performed By: #### W UA #### [address] [place] [address] Protein Ql (U) Negative Normal NEGATIVE [facility] Comment on above: Performed By: #### W UA #### [facility] [address] [place] [address] Specific gravity (U) [Rel density] 1.015 Normal 1.002-1.03 0 [facility] Comment on above: Performed By: #### W UA #### [facility] [address] [place] [address] Urobilinogen Qn (U) 0.20 {James'U}/dL Normal 0.2-1.0 [facility] Comment on above: Performed By: #### W UA #### [facility] [address] [place] [address] Laboratory - Chemistry and C hemistry - challengeon 11-18-2023 Bilirubin Ql (U) Negative [facility] Glucose (U) [Mass/Vol] Negative [facility] Ketones Ql (U) Positive [facility] pH (U) 6.0 [pH] [facility] Specific gravity (U) [Rel density] 1.010 [facility] Urobilinogen (U) [Mass/Vol] 0.2 mg/dL [facility] Laboratory - Microbiology an d Antimicrobial susceptibilityOrdered By: Georgie Guerrier on 11-18-2023 N. gonorrhoeae DNA CRYSTAL+probe Ql (Unsp spec) Negative Negative [facility] Comment on above: Performed at: [address] [id number] Director: Moon Tan MD, Phone: [phone] Laboratory - Specimen inform ationon 11-18-2023 Appearance (U) clear [facility] Color (U) paleyellow [facility] Laboratory - Urinalysison Leukocyte esterase Test strip Ql (U) Negative [facility] Nitrite Ql (U) Negative [facility] Protein Ql (U) Positive [facility] No Panel Informationon 11-17 Urine Occult Blood Negative [facility] No Panel InformationOrdered By: Georgie Guerrier on 11-18-2023 Zabrina albicans (CRYSTAL) Negative Negative [facility] Comment on above: This test was develo ped and its performance characteristicsdetermined by [facility]. It has not been cleared orapproved by the Food and Drug Administration. Zabrina glabrata (CRYSTAL) Negative Negative [facility] Comment on above: This test was develo ped and its performance characteristicsdetermined by [facility]. It has not been cleared orapproved by the Food and Drug Administration. Chlamydia trachomatis (CRYSTAL) (LAB) Negative Negative [facility] Trichomonas vaginalis (CRYSTAL) Negative Negative [facility] Urine Cultureon 11-18-2023 Bacteria identified Cx Nom (U) 75,000 colonies/ml mixed bacterial skin contaminants 2 Days PERFORMED BY: [place] [address] PATHOLOGIST MACHINE SWEEPER BRUSH MAKER NAINA NEWMAN M.D. Normal [facility] Comment on above: Performed By: #### V AGINITIS+ #### [facility] , #### CUU #### [address] Urine culture routineOrdered By: Georgie Guerrier on 11-18-2023 Bacteria identified Cx Nom (U) 2 Days [facility] Vaginal fluid Atopobium vagi holley DNA detection by probe and target amplification methoOrdered By: Georgie Guerrier on 11-18-2023 A. vaginae DNA CRYSTAL+probe Ql (Vag fld) Low - 0 Score . [facility] Comment on above: This test was develo ped and its performance characteristicsdetermined by [facility]. It has not been cleared orapproved by the Food and Drug Administration. Vaginal fluid Megasphaera sp ecies type 1 DNA detection by probe and target amplificatOrdered By: Georgie Guerrier on 11-18-2023 Megasphaera sp type 1 DNA CRYSTAL+probe Ql (Vag fld) Low - 0 Score . [facility] Comment on above: This test was develo ped and its performance characteristicsdetermined by [employer]. It has not been cleared orapproved by [...] (Vag fld) Low - 0 Score . [facility] Comment on above: This test was develo ped and its performance characteristicsdetermined by edjing. It has not been cleared orapproved by the Food and Drug Administration. Vaginitis Plus (VG+)on 11-17 Atopobium Vaginae Low - 0 Normal . [facility] Comment on above: Result Comment: This test was developed and its performance characteristics determined by [facility]. It has not been cleared or approved by the Food and Drug Administration. Performed By: #### V AGINITIS+ #### [facility] , #### CUU #### [address] BVAB2 Low - 0 Normal . [facility] Comment on above: Result Comment: This test was developed and its performance characteristics determined by [facility]. It has not been cleared or approved by the Food and Drug Administration. Performed By: #### V AGINITIS+ #### [facility] , #### CUU #### [place] [address] [place] Zabrina Albicans, CRYSTAL Negative Normal Negative [facility] Comment on above: Result Comment: This test was developed and its performance characteristics determined by [facility]. It has not been cleared or approved by the Food and Drug Administration. Performed By: #### V AGINITIS+ #### [facility] , #### CUU #### [address] Zabrina Glabrata, CRYSTAL Negative Normal Negative [facility] Comment on above: Result Comment: This test was developed and its performance characteristics determined by [facility]. It has not been cleared or approved by the Food and Drug Administration. PERFORMED BY: [place] [address] PATHOLOGIST MACHINE SWEEPER BRUSH MAKER NAINA NEWMAN M.D. Performed By: #### V AGINITIS+ #### [facility] , #### CUU #### [address] Chlamydia Trachomotis, CRYSTAL Negative Normal Negative [facility] Comment on above: Performed By: #### V AGINITIS+ #### [facility] , #### CUU #### [place] [address] [place] Megasphaera Low - 0 Normal . [facility] Comment on above: [...] AGINITIS+ #### [facility] , #### CUU #### [address] Neisseria Gonorrhoeae, CRYSTAL Negative Normal Negative [facility] Comment on above: Result Comment: Perf ormed at: =G - [facility] [address] [id number] Forestry Laborer: Moon Tan MD, Phone: [phone] Performed By: #### V AGINITIS+ #### [facility] , #### CUU #### [address] Tric Vag CRYSTAL Negative Normal Negative [facility] Comment on above: Performed By: #### V AGINITIS+ #### [facility] , #### CUU #### [address] XR FOOT 3+ VIEWS RIGHTon XR [...] 3V*on 024 XR hand RT min 3V* [facility] [place] [address] [place] [address] XRay Report Signed Patient: Devorah Shelton MR#: [id number] : 1995 Acct:[id number] Age/Sex: 28 / F ADM Date: 09/29/23 Loc: [id number] Room: Type: [facility] Attending Dr: Belia GHOTRA-Evan Copies to: PARADISE Saavedra Ordering Provider: PARADISE [...] Liliana Goyal M.D.09/29/2023 11:30 AM Dictation Location: [place] [address] Transcribed By: [facility] 09/29/23 1130 Dictated By: Liliana Goyal MD 09/29/23 1128 Signed By: 09/29/23 1130 Normal [facility] Automated basophil %Ordered By: Simone Bahena on 07-27-2023 Basophils/100 WBC (Bld) 0.5 % Normal . [facility] Comment on above: Performed By: #### C BC, CRP, ESR #### [facility] [address] [place] [address] Automated basophil countOrde red By: Simone Bahena on 07-27-2023 Basophils (Bld) [#/Vol] 0.0 10*3/uL Normal 0.0-0.2 [facility] Comment on above: Performed By: #### C BC, CRP, ESR #### [facility] [address] [place] [address] Automated blood monocyte cou ntOrdered By: Simone Bahena on 07-27-2023 Monocytes (Bld) [#/Vol] 0.8 10*3/uL Normal 0.0-0.8 [facility] Comment on above: Performed By: #### C BC, CRP, ESR #### [facility] [address] [place] [address] Automated eosinophil %Ordere d By: Simone Bahena on 07-27-2023 Eosinophils/100 WBC (Bld) 1.0 % Normal . [facility] Comment on above: Performed By: #### C BC, CRP, ESR #### [address] Automated eosinophil countOr dered By: Simone Bahena on 07-27-2023 Eosinophils (Bld) [#/Vol] 0.1 10*3/uL Normal 0.0-0.45 [facility] Comment on above: Performed By: #### C BC, CRP, ESR #### [address] Automated monocyte %Ordered By: Simone Bahena on 07-27-2023 Monocytes/100 WBC (Bld) 8.2 % Normal . [facility] Comment on above: Performed By: #### C BC, CRP, ESR #### [address] Automated neutrophil %Ordere d By: Simone Bahena on 07-27-2023 Neutrophils/100 WBC (Bld) 62.4 % Normal . [facility] Comment on above: Performed By: #### C BC, CRP, ESR #### [address] C reactive protein [Mass/vol ume] in Serum or PlasmaOrdered By: Simone Bahena on 07-27-2023 CRP [Mass/Vol] 1.7 mg/dL 0.0-0.5 [facility] C-Reactive Proteinon 024 C-Reactive Protein 1.7 mg/dL High 0.0-0.5 [facility] Comment on above: Result Comment: PERF ORMED BY: [place] [address] PATHOLOGIST MACHINE SWEEPER BRUSH MAKER NAINA NEWMAN M.D. Performed By: #### C BC, CRP, ESR #### [address] Complete Blood Count Auto Di ffon 07-27-2023 Mean Corpuscular HGB Conc 34.0 g/dL Normal 32.0-35.0 [facility] Comment on above: Performed By: #### C BC, CRP, ESR #### [address] NRBC% 0.1 /100{WBC} Normal 0-0.5 [facility] Comment on above: Performed By: #### C BC, CRP, ESR #### [address] Erythrocyte Sedimentation Ra aishwarya 07-27-2023 ESR (Bld) [Velocity] 14 mm/h Normal 0-19 [facility] Comment on above: Result Comment: PERF ORMED BY: [place] [address] PATHOLOGIST MACHINE SWEEPER BRUSH MAKER NAINA NEWMAN M.D. Performed By: #### C BC, CRP, ESR #### [address] Erythrocyte distribution wid th [Ratio] by Automated countOrdered By: Simone Bahena on 07-27-2023 Erythrocyte distribution width (RBC) [Ratio] 12.8 % Normal 11.9-15.3 [facility] Comment on above: Performed By: #### C BC, CRP, ESR #### [address] Erythrocyte sedimentation ra te by Photometric methodOrdered By: Simone Bahena on 07-27-2023 ESR Photometric method (Bld) [Velocity] 14 mm/hr 0-19 [facility] Erythrocytes [#/volume] in B lood by Automated countOrdered By: Simone Bahena on 07-27-2023 RBC (Bld) [#/Vol] 4.14 10*6/uL Normal 3.60-5.00 [facility] Comment on above: Performed By: #### C BC, CRP, ESR #### [address] Hematocrit [Volume Fraction] of Blood by Automated countOrdered By: Simone Bahena on 07-27-2023 Hematocrit (Bld) [Volume fraction] 39.0 % Normal 34.0-46.4 [facility] Comment on above: Performed By: #### C BC, CRP, ESR #### [address] Hemoglobin [Mass/volume] in BloodOrdered By: Simone Bahena on 07-27-2023 Hemoglobin (Bld) [Mass/Vol] 13.3 g/dL Normal 11.8-15.4 [facility] Comment on above: Performed By: #### C BC, CRP, ESR #### [address] Leukocytes [#/volume] correc betty for nucleated erythrocytes in Blood by Automated counOrdered By: Simone Bahena on 07-27-2023 WBC corrected for nucl RBC Auto (Bld) [#/Vol] 9.4 10*3/uL 3.8-11.6 [facility] Leukocytes [#/volume] in Blo od by Automated countOrdered By: Simone Bahena on 07-27-2023 WBC (Bld) [#/Vol] 9.4 10*3/uL Normal 3.8-11.6 [facility] Comment on above: Performed By: #### C BC, CRP, ESR #### [address] Lymphocytes [#/volume] in Bl ood by Automated countOrdered By: Simone Bahena on 07-27-2023 Lymphocytes (Bld) [#/Vol] 2.6 10*3/uL Normal 1.00-4.8 [facility] Comment on above: Performed By: #### C BC, CRP, ESR #### [address] Lymphocytes/100 leukocytes i n Blood by Automated countOrdered By: Smione Bahena on 07-27-2023 Lymphocytes/100 WBC (Bld) 27.9 % Normal . [facility] Comment on above: Performed By: #### C BC, CRP, ESR #### [facility] [address] [place] [address] MCH [Entitic mass] by Automa betty countOrdered By: Simone Bahena on 07-27-2023 MCH (RBC) [Entitic mass] 32.0 pg Normal 24.7-34.3 [facility] Comment on above: Performed By: #### C BC, CRP, ESR #### [facility] [address] [place] [address] MCHC Auto (RBC) [Mass/Vol]Or dered By: Simone Bahena on 07-27-2023 MCHC (RBC) [Mass/Vol] 34.0 g/dL 32.0-35.0 [facility] MCV [Entitic volume] by Auto mated countOrdered By: Simone Bahena on 07-27-2023 MCV (RBC) [Entitic vol] 94.2 fL Normal 80-100 [facility] Comment on above: Performed By: #### C BC, CRP, ESR #### [facility] [address] [place] [address] Neutrophils [#/volume] in Bl ood by Automated countOrdered By: Simone Bahnea on 07-27-2023 Neutrophils (Bld) [#/Vol] 5.8 10*3/uL Normal 1.8-7.7 [facility] Comment on above: Performed By: #### C BC, CRP, ESR #### [facility] [address] [place] [address] Nucleated erythrocytes [Pres ence] in Blood by Automated countOrdered By: Simone Bahena on 07-27-2023 Nucleated RBC Auto Ql (Bld) 0.1 /100{WBC} 0-0.5 [facility] Platelet mean volume [Entiti c volume] in Blood by Automated countOrdered By: Simone Bahena on 07-27-2023 Platelet mean volume (Bld) [Entitic vol] 7.7 fL Normal 6.3-10.7 [facility] Comment on above: Performed By: #### C BC, CRP, ESR #### [facility] [address] [id number] [facility] Platelets [#/volume] in Bloo d by Automated countOrdered By: Simone Bahena on 07-27-2023 Platelets (Bld) [#/Vol] 294 10*3/uL Normal 150-450 [facility] Comment on above: Performed By: #### C BC, CRP, ESR #### [facility] [address] MR HAND RIGHT W AND WO [...] No Panel Informationon 07-05 INFLUENZA A Negative [facility] INFLUENZA B Negative [facility] Interpretation and review of laboratory results Normal [facility] S. pyogenes DNA CRYSTAL+probe No m (Unsp spec)on 07-05-2023 Interpretation and review of laboratory results Normal [facility] RESULT Negative [facility] CNOVon 06-29-2023 CNOV Office Visit (PLASMN ) ----- DEVORAH SHELTON ([id number]) 1995 F Date Time Provider Department 06/29/23 3:40 PM MIGUEL ANG During your visit today, we recorded the following information about you: Temperature Pulse Blood pressure 97.3 degrees 68/minute 121/67 Miguel Ang PA-C 06/30/2023 8:33 AM Signed PLASTIC SURGERY DEPARTMENT [facility] Hand Surgery Note [] New referred by []self []physician.......... [] Follow-up CC: ..right hand pain............ ? HPI: Devorah is a 28 year old female who presnets after being bit by a dog in February 2023. Reports was bit at the [facility] and has never healed correctly. Patient also suffered infection of the right hand following a dog bite which she was treated with antibiotics. She reported that the infection started to move up the arm past the wrist. 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 Dominant Hand: [...] by m (more content not included)... Normal [facility] No Panel Informationon 06-29 [facility] XR HAND 3V PA/LAT/OBL RTon 0 06-29-2023 [...] DEFORMITY, AN EROSION, OR SEQUELA OF OSTEOMYELITIS. Document Control Coordinator: PSCB Transcribe Date/Time: Jun 29 2023 4:42P Dictated by : MAXINE RUBI MD This examination was interpreted and the report reviewed and electronically signed by: MAXINE RUBI MD on Jun 29 2023 4:45PM EST [id number] Normal [facility] XR HAND 3+ VIEWS RIGHTon XR [...] ALT [Catalytic activity/Vol] 15 U/L Normal 7-52 [facility] Comment on above: Performed By: #### H EPATIC #### [address] Albumin [Mass/volume] in Ser um or Plasma by Bromocresol green (BCG) dye binding methoOrdered By: Susie Johnson on 04-03-2023 Albumin BCG dye [Mass/Vol] 4.2 g/dL 3.5-5.7 [facility] Alkaline phosphatase [Enzyma tic activity/volume] in Serum or PlasmaOrdered By: Susie Johnson on 04-03-2023 ALP [Catalytic activity/Vol] 104 U/L Normal 34-104 [facility] Comment on above: Result Comment: PERF ORMED BY: [place] [address] PATHOLOGIST MACHINE SWEEPER BRUSH MAKER NAINA NEWMAN M.D. Performed By: #### H EPATIC #### [address] Aspartate aminotransferase [ Enzymatic activity/volume] in Serum or PlasmaOrdered By: Susie Johnson on 04-03-2023 AST [Catalytic activity/Vol] 15 U/L Normal 13-39 [facility] Comment on above: Performed By: #### H EPATIC #### [address] Bilirubin.direct [Mass/volum e] in Serum or PlasmaOrdered By: Susie Johnson on 04-03-2023 Bilirubin.direct [Mass/Vol] 0.10 mg/dL 0.03-0.18 [facility] Bilirubin.total [Mass/volume ] in Serum or PlasmaOrdered By: Susie Johnson on 04-03-2023 Bilirubin [Mass/Vol] 0.8 mg/dL Normal 0.3-1.0 [facility] Comment on above: Performed By: #### H EPATIC #### [address] Hepatic Panelon 04-03-2023 Albumin [Mass/Vol] 4.2 g/dL Normal 3.5-5.7 [facility] Comment on above: Performed By: #### H EPATIC #### [address] Bilirubin,Indirect 0.7 mg/dL Normal [facility] Comment on above: Performed By: #### H EPATIC #### [address] Bilirubin.indirect [Mass/Vol] 0.10 mg/dL Normal 0.03-0.18 [facility] Comment on above: Performed By: #### H EPATIC #### [address] Protein [Mass/volume] in Ser um or PlasmaOrdered By: Susie Risnalini on 04-03-2023 Protein [Mass/Vol] 6.8 g/dL Normal 6.4-8.9 [facility] Comment on above: Performed By: #### H EPATIC #### [address] Serum globulin measurement b y calculation (mass/volume)Ordered By: Susie Elizabeth on 04-03-2023 Globulin (S) [Mass/Vol] 2.6 g/dL [facility] Comment on above: Performed By: #### H EPATIC #### [address] Serum or plasma albumin/glob ulin mass ratioOrdered By: Susie Risaliclaudine on 04-03-2023 Albumin/Globulin [Mass ratio] 1.6 {ratio} [facility] Comment on above: Performed By: #### H EPATIC #### [address] Serum or plasma non-glucuron idated bilirubin measurement (mass/volume)Ordered By: Susie Elizabeth on 04-03-2023 Bilirubin.indirect [Mass/Vol] 0.7 mg/dL [facility] Follow-Upon 02-24-2023 Follow-Up [id number] Jimenez Shelton tlarchana 1995 F Date Provider Department Center 02/24/2023 MARISA GARCIA MP ORTHO MPORTHO Family History Family history unknown: Yes Level of Service:97538 RI OFFICE/OUTPATIENT ESTABLISHED SF MDM 10-19 MIN () Reason for Visit and Comments: Follow-up [036634] Normal [facility] Office Visiton 02-17-2023 Follow-up visit [id number] Jimenez Shelton tlyn 1995 F Date Provider Department Center 02/17/2023 JAISON ARAGON MP ORTHO MPORTHO Family History Family history unknown: Yes Level of Service:11460 RI OFFICE/OUTPATIENT NEW LOW MDM 30-44 MINUTES Reason for Visit and Comments: Numbness [75] Normal [facility] XR Hand Complete Left*on XR Hand Complete Left* Findings: No fracture, dislocation, bone lesion. Joint spaces are maintained. IMPRESSION: Negative left hand. Report reported and signed by Rylan Signgraeme on 09/30/2022 0745 Normal [facility] Astrophysics Professor XR Hand Complete Right*on XR Hand Complete Right* Findings: No fracture, dislocation, bone lesion. Joint spaces maintained. IMPRESSION: Negative right hand. Report reported and signed by Rylan Signer on 09/30/2022 0744 Normal [facility] Astrophysics Professor MICRO OTHER TESTSOrdered By: Kashif Bolaños on 07-20-2022 S. pyogenes Ag IA.rapid Ql (Throat) Negative (07/20/22 1:06 AM) Normal Negative [facility] Man Sero CHEMISTRYOrdered By: [...] 0.9 mg/dL Normal 0.5 - 1.3 mg/dL [facility] Remisol GFR/1.73 sq M.predicted among blacks MDRD (S/P/Bld) [Vol rate/Area] mL/min/1.73 m2 Normal >=59mL/min /1.73 m2 [facility] Chem S GFR/1.73 sq M.predicted among non-blacks MDRD (S/P/Bld) [Vol rate/Area] mL/min/1.73 m2 Normal >=59mL/min /1.73 m2 [facility] Chem S Glucose [Mass/Vol] 89 mg/dL Normal 55 - 199 mg/dL [facility] Potassium [Moles/Vol] 3.7 mmol/L Normal 3.5 - 5.3 mmol/L [facility] Remisol Sodium [Moles/Vol] 135 mmol/L Normal 135 - 145 mmol/L [facility] Urea nitrogen [Mass/Vol] 20 mg/dL Normal 5 - 21 mg/dL [facility] Urea nitrogen/Creatinine [Mass ratio] 22 mg/mg High 10 - 20 [facility] HEMATOLOGYOrdered By: SYSTEM SYSTEM on 07-19-2022 Basophils/100 WBC (Bld) 1.3 [...] 11.0 E9/L [facility] HemeAutoSS SEROLOGYOrdered By: Kashif edwards on 07-19-2022 Heterophile Ab LA Ql (S) Negative (07/19/22 10:10 PM) Normal Negative [facility] Sero CHEMISTRYOrdered By: SYSTEM SYSTEM on 07-08-2022 Anion gap [Moles/Vol] 12 mmol/L Normal 6 - 16 mEq/L [facility] Remisol Calcium [Mass/Vol] 8.6 mg/dL Low 8.9 - 11. 1 mg/dL [facility] Remisol Chloride [Moles/Vol] 103 mmol/L Normal 101 - 1 11 mmol/L [facility] CO2 [Moles/Vol] 27 mmol/L Normal 21 - 31 mmol/L [facility] Creatinine [Mass/Vol] 0.7 mg/dL Normal 0.5 - 1.3 mg/dL [facility] GFR/1.73 sq M.predicted among blacks MDRD (S/P/Bld) [Vol rate/Area] mL/min/1.73 m2 Normal >=59mL/min /1.73 m2 [facility] Chem S GFR/1.73 sq M.predicted among non-blacks MDRD (S/P/Bld) [Vol rate/Area] mL/min/1.73 m2 Normal >=59mL/min /1.73 m2 [facility] Chem S Glucose [Mass/Vol] 94 mg/dL Normal 55 - 199 mg/dL [facility] Potassium [Moles/Vol] 3.4 mmol/L Low 3.5 - 5.3 mmol/L [facility] Sodium [Moles/Vol] 139 mmol/L Normal 135 - 145 mmol/L [facility] Urea nitrogen [Mass/Vol] 14 mg/dL Normal 5 - 21 mg/dL [facility] Urea nitrogen/Creatinine [Mass ratio] 20 mg/mg Normal 10 - 20 [facility] Remisol Quick Strepon 06-23-2022 S. pyogenes Org specific cx Ql (Throat) Positive imgSc[employer] Other Quick Strep [employer] Other Quick Strepon 04-16-2022 S. pyogenes Org specific cx Ql (Throat) Positive [employer] Other Cinexio Strep [employer] Other CBC AUTO DIFFon 03-22-2022 BASO # 0.1 103/ul Normal 0.0-0.1 [facility] Comment on above: Performed By: #### C BC #### [facility] [address] [address] [address] Adalberto Dimas Basophils/100 WBC (Bld) 0.2 % Normal 0.2-2.0 [facility] Comment on above: Performed By: #### C BC #### [facility] [address] [place] [address] Dr. Adalberto Dimas EO # 0.0 103/ul Normal 0.0-0.7 [facility] Comment on above: Performed By: #### C BC #### [facility] [address] [place] [address] Dr. Adalberto Dimas Eosinophils/100 WBC (Bld) 0.2 % Critically low 0.9-7.0 [facility] Comment on above: Performed By: #### C BC #### [facility] [address] [place] [address] Dr. Adalberto Dimas Erythrocyte distribution width (RBC) [Ratio] 12.0 % Normal 11.0-15.0 [facility] Comment on above: Performed By: #### C BC #### [facility] [address] [place] [address] Dr. Adalberto Dimas Hematocrit (Bld) [Volume fraction] 39.5 % Normal 36.0-48.0 [facility] Comment on above: Performed By: #### C BC #### [facility] [address] [place] [address] Dr. Adalberto Dimas Hemoglobin (Bld) [Mass/Vol] 13.9 g/dL Normal 12.0-16.0 [facility] Comment on above: Performed By: #### C BC #### [facility] [address] [place] [address] Dr. Adalberto Dimas IG # 0.08 10e3/ul Critically high 0.00-0.03 [facility] Comment on above: Performed By: #### C BC #### [facility] [address] [place] [address] Dr. Adalberto Dimas IG % 0.4 % Normal 0.0-0.5 [facility] Comment on above: Performed By: #### C BC #### [facility] [address] [place] [address] Dr. Adalberto Dimas LYMPH # 1.7 103/ul Normal 1.2-3.8 [facility] Comment on above: Performed By: #### C BC #### [facility] [address] [address] [address] Adalberto Dimas Lymphocytes/100 WBC (Bld) 7.6 % Critically low 20.5-60.0 [facility] Comment on above: Performed By: #### C BC #### [facility] [address] [address] [address] Adalberto Dimas MANUAL DIFF REQ NO Normal [facility] Comment on above: Performed By: #### C BC #### [facility] [address] [place] [address] Dr. Adalberto Dimas MCH (RBC) [Entitic mass] 32.5 pg Normal 26.7-34.0 [facility] Comment on above: Performed By: #### C BC #### [facility] [address] [place] [address] Dr. Adalberto Dimas MCHC (RBC) [Mass/Vol] 35.2 g/dL Normal 29.9-35.2 [facility] Comment on above: Performed By: #### C BC #### [facility] [address] [place] [address] Dr. Adalberto Dimas MCV (RBC) [Entitic vol] 92.3 fL Normal 81.0-99.0 [facility] Comment on above: Performed By: #### C BC #### [facility] [address] [place] [address] Dr. Adalberto Dimas MONO # 1.4 103/ul Critically high 0.3-0.8 [facility] Comment on above: Performed By: #### C BC #### [facility] [address] [place] [address] Dr. Adalberto Dimas Monocytes/100 WBC (Bld) 6.3 % Normal 1.7-12.0 [facility] Comment on above: Performed By: #### C BC #### [facility] [address] [place] [address] Dr. Adalberto Dimas NEUT # 18.8 103/ul Critically high 1.4-6.5 [facility] Comment on above: Performed By: #### C BC #### [facility] [address] [address] [address] Adalberto Dimas Neutrophils/100 WBC (Bld) 85.3 % Critically high 43.0-75.0 [facility] Comment on above: Performed By: #### C BC #### [facility] [address] [address] [address] Adalberto Dimas Platelet mean volume (Bld) [Entitic vol] 9.1 fL Critically low 9.5-13.5 [facility] Comment on above: Performed By: #### C BC #### [facility] [address] [address] [address] Adalberto Dimas PLT 267 103/ul Normal 150-450 [facility] Comment on above: Performed By: #### C BC #### [facility] [address] [place] [address] Dr. Adalberto Dimas RBC 4.28 106/ul Normal 4.20-5.40 [facility] Comment on above: Performed By: #### C BC #### [facility] [address] [place] [address] Dr. Adalberto Dimas WBC 22.0 103/ul Critically high 4.0-11.0 [facility] Comment on above: Performed By: #### C BC #### [facility] [address] [place] [address] Dr. Adalberto Dimas PROF 14(COMP METB)on 022 Albumin [Mass/Vol] 3.8 g/dL Normal 3.4-5.0 [facility] Comment on above: Performed By: #### C MP #### [facility] [address] [place] [address] Dr. Adalberto Dimas Albumin/Globulin [Mass ratio] 1.0 {ratio} Normal [facility] Comment on above: Performed By: #### C MP #### [facility] [address] [place] [address] Dr. Adalberto Dimas ALP [Catalytic activity/Vol] 97 U/L Normal 46-116 [facility] Comment on above: Performed By: #### C MP #### [facility] [address] [address] [address] Adalberto Dimas ALT [Catalytic activity/Vol] 17 U/L Normal 14-59 [facility] Comment on above: Performed By: #### C MP #### [facility] [address] [address] [address] Adalberto Dimas Anion gap [Moles/Vol] 12.5 mmol/L Normal [facility] Comment on above: Performed By: #### C MP #### [facility] [address] [address] [address] Adalberto Dimas AST [Catalytic activity/Vol] 12 U/L Critically low 15-37 [facility] Comment on above: Performed By: #### C MP #### [facility] [address] [place] [address] Dr. Adalberto Dimas Bilirubin [Mass/Vol] 2.9 mg/dL Critically high 0.2-1.0 [facility] Comment on above: Performed By: #### C MP #### [facility] [address] [place] [address] Dr. Adalberto Dimas Calcium [Mass/Vol] 8.7 mg/dL Normal 8.5-10.1 [facility] Comment on above: Performed By: #### C MP #### [facility] [address] [place] [address] Dr. Adalberto Dimas Chloride [Moles/Vol] 101 mmol/L Normal 98-107 [facility] Comment on above: Performed By: #### C MP #### [facility] [address] [place] [address] Dr. Adalberto Dimas CO2 [Moles/Vol] 27.0 mmol/L Normal 21.0-32.0 [facility] Comment on above: Performed By: #### C MP #### [facility] [address] [place] [address] Dr. Adalberto Dimas Creatinine [Mass/Vol] 0.87 mg/dL Normal 0.55-1.02 [facility] Comment on above: Performed By: #### C MP #### [facility] [address] [place] [address] Dr. Adalberto Dimas EGFR-AF COSTA RICAN >60 Normal >=60 [facility] Comment on above: Performed By: #### C MP #### [facility] [address] [address] [address] Adalberto Dimas EGFR-NON AF [place] RICAN >60 Normal >=60 [facility] Comment on above: Performed By: #### C MP #### [facility] [address] [address] [address] Adalberto Dimas Globulin (S) [Mass/Vol] 3.9 g/dL Normal [facility] Comment on above: Performed By: #### C MP #### [facility] [address] [address] [address] Adalberto Dimas Glucose [Mass/Vol] 105 mg/dL Normal 74-106 [facility] Comment on above: Performed By: #### C MP #### [facility] [address] [address] [address] Adalberto Dimas Potassium [Moles/Vol] 3.5 mmol/L Normal 3.5-5.1 [facility] Comment on above: Performed By: #### C MP #### [facility] [address] [address] [address] Adalberto Dimas Protein [Mass/Vol] 7.7 g/dL Normal 6.4-8.[address] [facility] Comment on above: Performed By: #### C MP #### [facility] [address] [address] [address] Adalberto Dimas Sodium [Moles/Vol] 137 mmol/L Normal 136-[address] [facility] Comment on above: Performed By: #### C MP #### [facility] [address] [address] [address] Adalberto Dimas Urea nitrogen [Mass/Vol] 15.0 mg/dL Normal 7.0-18.0 [facility] Comment on above: Performed By: #### C MP #### [facility] [address] [address] [address] Adalberto Dimas Urea nitrogen/Creatinine [Mass ratio] 17.2 mg/mg Normal [facility] Comment on above: Performed By: #### C MP #### [facility] [address] [address] [address] Adalberto Dimas XR NECK SOFT TISSUEon [...] Carson [place] Date: 2022-03-22 01:19 Normal [facility] Quick Strepon 03-21-2022 S. pyogenes Org specific cx Ql (Throat) Positive [facility] [employer] Other Quick Strep POLYBONA [facility] [employer] Other CBC AUTO DIFFon 11-17-2021 BASO # 0.0 103/ul Normal 0.0-0.1 [facility] Comment on above: Performed By: #### C BC #### [facility] [address] [address] [address] Adalberto Dimas Basophils/100 WBC (Bld) 0.3 % Normal 0.2-2.0 [facility] Comment on above: Performed By: #### C BC #### [facility] [address] [address] [address] Adalberto Dimas EO # 0.1 103/ul Normal 0.0-0.7 [facility] Comment on above: Performed By: #### C BC #### [facility] [address] [address] [address] Adalberto Dimas Eosinophils/100 WBC (Bld) 0.4 % Critically low 0.9-7.0 [facility] Comment on above: Performed By: #### C BC #### [facility] [address] [address] [address] Adalberto Dimas Erythrocyte distribution width (RBC) [Ratio] 12.2 % Normal 11.0-15.0 [facility] Comment on above: Performed By: #### C BC #### [facility] [address] [place] [address] Dr. Adalberto Dimas Hematocrit (Bld) [Volume fraction] 41.7 % Normal 36.0-48.0 [facility] Comment on above: Performed By: #### C BC #### [facility] [address] [place] [address] Dr. Adalberto Dimas Hemoglobin (Bld) [Mass/Vol] 14.1 g/dL Normal 12.0-16.0 [facility] Comment on above: Performed By: #### C BC #### [facility] [address] [place] [address] Dr. Adalberto Dmias IG # 0.02 10e3/ul Normal 0.00-0.03 [facility] Comment on above: Performed By: #### C BC #### [facility] [address] [place] [address] Dr. Adalberto Dimas IG % 0.2 % Normal 0.0-0.5 [facility] Comment on above: Performed By: #### C BC #### [facility] [address] [place] [address] Dr. Adalberto Dimas LYMPH # 1.8 103/ul Normal 1.2-3.8 [facility] Comment on above: Performed By: #### C BC #### [facility] [address] [place] [address] Dr. Adalberto Dimas Lymphocytes/100 WBC (Bld) 15.3 % Critically low 20.5-60.0 [facility] Comment on above: Performed By: #### C BC #### [facility] [address] [place] [address] Dr. Adalberto Dimas MANUAL DIFF REQ NO Normal [facility] Comment on above: Performed By: #### C BC #### [facility] [address] [place] [address] Dr. Adalberto Dimas MCH (RBC) [Entitic mass] 31.8 pg Normal 26.7-34.0 [facility] Comment on above: Performed By: #### C BC #### [facility] [address] [address] [address] Adalberto Dimas MCHC (RBC) [Mass/Vol] 33.8 g/dL Normal 29.9-35.2 [facility] Comment on above: Performed By: #### C BC #### [facility] [address] [address] [address] Adalberto Dimas MCV (RBC) [Entitic vol] 93.9 fL Normal 81.0-99.0 [facility] Comment on above: Performed By: #### C BC #### [facility] [address] [address] [address] Adalberto Dimas MONO # 1.1 103/ul Critically high 0.3-0.8 [facility] Comment on above: Performed By: #### C BC #### [facility] [address] [address] [address] Adalberto Dimas Monocytes/100 WBC (Bld) 9.0 % Normal 1.7-12.0 [facility] Comment on above: Performed By: #### C BC #### [facility] [address] [address] [address] Adalberto Dimas NEUT # 8.7 103/ul Critically high 1.4-6.5 [facility] Comment on above: Performed By: #### C BC #### [facility] [address] [address] [address] Adalberto Dimas Neutrophils/100 WBC (Bld) 74.8 % Normal 43.0-75.0 [facility] Comment on above: Performed By: #### C BC #### [facility] [address] [address] [address] Adalberto Dimas Platelet mean volume (Bld) [Entitic vol] 9.3 fL Critically low 9.5-13.5 [facility] Comment on above: Performed By: #### C BC #### [facility] [address] [address] [address] Adalberto Dimas PLT 262 103/ul Normal 150-450 [facility] Comment on above: Performed By: #### C BC #### [facility] [address] [place] [address] Dr. Adalberto Dimas RBC 4.44 106/ul Normal 4.20-5.40 [facility] Comment on above: Performed By: #### C BC #### [facility] [address] [place] [address] Dr. Adalberto Dimas WBC 11.6 103/ul Critically high 4.0-11.0 [facility] Comment on above: Performed By: #### C BC #### [facility] [address] [place] [address] Dr. Adalberto Dimas ER URINE PROFILEon 2 Bilirubin Ql (U) Negative Normal NEGATIVE [facility] Comment on above: Performed By: #### DARYL EDWARDSRO #### [facility] [address] [place] [address] Dr. Adalberto Dimas Clarity (U) CLEAR Normal CLEAR [facility] Comment on above: Performed By: #### DARYL EDWARDSRO #### [facility] [address] [place] [address] Dr. Adalberto Dimas Color (U) LT. YELLOW Normal YELLOW [facility] Comment on above: Performed By: #### DARYL EDWARDSRO #### [facility] [address] [place] [address] Dr. Adalberto DIEGO A micrscopic examina tion will be performed if indicated. Normal [facility] Comment on above: Performed By: #### DARYL EDWARDSRO #### [facility] [address] [place] [address] Dr. Adalberto Dimas Glucose Ql (U) Negative Normal NEGATIVE [facility] Comment on above: Performed By: #### DARYL EDWARDSRO #### [facility] [address] [place] [address] Dr. Adalberto Dimas Hemoglobin Ql (U) Negative Normal NEGATIVE [facility] Comment on above: Performed By: #### Gaby FROST UMICRO #### [facility] [address] [place] [address] Dr. Adalberto Dimas Ketones Ql (U) Negative Normal NEGATIVE [facility] Comment on above: Performed By: #### Gaby FROST UMICRO #### [facility] [address] [place] [address] Dr. Adalberto Dimas LEUKOCYTES TRACE Abnormal NEGATIVE [facility] Comment on above: Performed By: #### E MARGOT, UMICRO #### [facility] [address] [place] [address] Dr. Adalberto Dimas Nitrite Ql (U) Negative Normal NEGATIVE [facility] Comment on above: Performed By: #### Gaby FROST UMICRO #### [facility] [address] [place] [address] Dr. Adalberto Dimas pH (U) 7.0 [pH] Normal 5-9 [facility] Comment on above: Performed By: #### Gaby FROST UMICRO #### [facility] [address] [place] [address] Dr. Adalberto Dimas SPEC GRAVITY 1.010 Normal 1.005-<=1. 025 [facility] Comment on above: Performed By: #### Gaby FROST UMICRO #### [facility] [address] [place] [address] Dr. Adalberto Dimas UA PROTEIN Negative Normal NEGATIVE/ TRACE [facility] Comment on above: Performed By: #### Gaby FROST UMICRO #### [facility] [address] [place] [address] Dr. Adalberto Dimas UR MICRO IND INDICATED Normal [facility] Comment on above: Performed By: #### Gaby FROST UMICRO #### [facility] [address] [place] [address] Dr. Adalberto Dimas Urobilinogen Qn (U) 0.2 {James'U}/dL Normal 0.2 - 1. 0 [facility] Comment on above: Performed By: #### E MARGOT, UMICRO #### [facility] [address] [place] [address] Dr. Adalberto Dimas PREG HCG QUALon 11-17-2021 , QUAL Negative Normal NEGATIVE [facility] Comment on above: Performed By: #### P REG #### [facility] [address] [address] [address] Adalberto Dimas PROF CHEM 8 (BAS METB)on Anion gap [Moles/Vol] 10.0 mmol/L Normal [facility] Comment on above: Performed By: #### B MP #### [facility] [address] [address] [address] Adalberto Dimas Calcium [Mass/Vol] 8.7 mg/dL Normal 8.5-10.1 [facility] Comment on above: Performed By: #### B MP #### [facility] [address] [address] [address] Adalberto Dimas Chloride [Moles/Vol] 104 mmol/L Normal 98-107 [facility] Comment on above: Performed By: #### B MP #### [facility] [address] [place] [address] Dr. Adalberto Dimas CO2 [Moles/Vol] 27.8 mmol/L Normal 21.0-32.0 [facility] Comment on above: Performed By: #### B MP #### [facility] [address] [place] [address] Dr. Adalberto Dimas Creatinine [Mass/Vol] 0.79 mg/dL Normal 0.55-1.02 [facility] Comment on above: Performed By: #### B MP #### [facility] [address] [address] [address] Aadlberto Dimas EGFR-AF [place] RICAN >60 Normal >=60 [facility] Comment on above: Performed By: #### B MP #### [facility] [address] [address] [address] Adalberto Dimas EGFR-NON AF [place] R[place] >60 Normal >=60 [facility] Comment on above: Performed By: #### B MP #### [facility] [address] [place] [address] Dr. Adalberto Dimas Glucose [Mass/Vol] 96 mg/dL Normal 74-[address] [facility] Comment on above: Performed By: #### B MP #### [facility] [address] [place] [address] Dr. Adalberto Dimas Potassium [Moles/Vol] 3.8 mmol/L Normal 3.5-5.1 [facility] Comment on above: Performed By: #### B MP #### [facility] [address] [place] [address] Dr. Adalberto Dimas Sodium [Moles/Vol] 138 mmol/L Normal 136-[address] [facility] Comment on above: Performed By: #### B MP #### [facility] [address] [place] [address] Dr. Adalberto Dimas Urea nitrogen [Mass/Vol] 12.0 mg/dL Normal 7.0-18.0 [facility] Comment on above: Performed By: #### B MP #### [facility] [address] [place] [address] Dr. Adalberto Dimas Urea nitrogen/Creatinine [Mass ratio] 15.2 mg/mg Normal [facility] Comment on above: Performed By: #### B MP #### [facility] [address] [place] [address] Dr. Adalberto Dimas URINE MICROSCOPIC ONLYon BACTERIA TRACE Abnormal NONE SEEN [facility] Comment on above: Performed By: #### DARYL EDWARDSRO #### [facility] [address] [place] [address] Dr. Adalberto Dimas Bacteria identified Cx Nom (U) NOT INDICATED Normal [facility] Comment on above: Performed By: #### DARYL EDWARDSRO #### [facility] [address] [place] [address] Dr. Adalberto Dimas CAST NONE SEEN Normal NONE SEEN [facility] Comment on above: Performed By: #### DARYL EDWARDSRO #### [facility] [address] [place] [address] Dr. Adalberto Dimas Crystals LM Nom (Urine sed) NONE SEEN Normal NONE SEEN [facility] Comment on above: Performed By: #### Gaby FROST UMICRO #### [facility] [address] [place] [address] Dr. Adalberto Dimas Epithelial cells LM Ql (Urine sed) MODERATE Abnormal NONE SEEN /RARE [facility] Comment on above: Performed By: #### DARYL EDWARDSRO #### [facility] [address] [address] [address] Adalberto Dimas MUCOUS NONE SEEN Normal NONE SEEN [facility] Comment on above: Performed By: #### E RUVita UMICRO #### [facility] [address] [address] [address] Adalberto Dimas RBC NONE SEEN Abnormal 0-2 [facility] Comment on above: Performed By: #### E MARGOT UMICRO #### [facility] [address] [address] [address] Adalberto Dimas WBC 0-2 Abnormal NONE SEEN [facility] Comment on above: Performed By: #### AZUL EDWARDSICRO #### [facility] [address] [place] [address] Dr. Adalberto Dimas Complete Blood Count with Au to Diffon 10-02-2021 Basophils (Bld) [#/Vol] 0.04 10*3/uL Normal 0.00-0.20 [facility] Comment on above: Performed By: #### F CAROL EARL Prof, CBCAD, RETIC #### [facility] [address] [place], [place] [id number] Basophils/100 WBC (Bld) 0.5 % Normal [facility] Comment on above: Performed By: #### F CAROL EARL Prof, CBCAD, RETIC #### [facility] [address] [place], [place] [id number] Eosinophils (Bld) [#/Vol] 0.04 10*3/uL Normal 0.02-0.50 [facility] Comment on above: Performed By: #### F CAROL EARL Prof, CBCAD, RETIC #### [facility] [address] [place], [place] [id number] Eosinophils/100 WBC (Bld) 0.5 % Normal [facility] Comment on above: Performed By: #### F ERRCAROL Prof, CBCAD, RETIC #### [facility] [address] [place], [place] [id number] Erythrocyte distribution width (RBC) [Ratio] 12.5 % Normal 11.0-15.0 [facility] Comment on above: Performed By: #### F MADY FE Prof, CBCAD, RETIC #### [facility] [address] [place], [place] [id number] Hematocrit (Bld) [Volume fraction] 41.0 % Normal 35.0-47.0 [facility] Comment on above: Performed By: #### F ERR, FE Prof, CBCAD, RETIC #### [facility] [address] [place], [place] [id number] Hemoglobin (Bld) [Mass/Vol] 13.7 g/dL Normal 11.6-15.5 [facility] Comment on above: Performed By: #### F MADY, FE Prof, CBCAD, RETIC #### [facility] [address] [place], [place] [id number] Lymphocytes (Bld) [#/Vol] 2.1 10*3/uL Normal 0.9-3.9 [facility] Comment on above: Performed By: #### F ERR, FE Prof, CBCAD, RETIC #### [facility] [address] [place], [place] [id number] Lymphocytes/100 WBC (Bld) 24.2 % Normal [facility] Comment on above: Performed By: #### F ERR, FE Prof, CBCAD, RETIC #### [facility] [address] [place], [place] [id number] MCH (RBC) [Entitic mass] 31.6 pg Normal 27.0-33.0 [facility] Comment on above: Performed By: #### F ERR, FE Prof, CBCAD, RETIC #### [facility] [address] [place], [place] [id number] MCHC (RBC) [Mass/Vol] 33.4 g/dL Normal 32.0-36.0 [facility] Comment on above: Performed By: #### F ERR, FE Prof, CBCAD, RETIC #### [facility] [address] [place], [place] [id number] MCV (RBC) [Entitic vol] 95 fL Normal 80-100 [facility] Comment on above: Performed By: #### F ERR, FE Prof, CBCAD, RETIC #### [facility] [address] [facility] [place] [id number] Monocytes (Bld) [#/Vol] 0.7 10*3/uL Normal 0.2-0.9 [facility] Comment on above: Performed By: #### F ERR, FE Prof, CBCAD, RETIC #### [facility] [address] [place] [id number] Monocytes/100 WBC (Bld) 7.9 % Normal [facility] Comment on above: Performed By: #### F ERR, FE Prof, CBCAD, RETIC #### [facility] [address] [place] [id number] Neutrophils (Bld) [#/Vol] 5.7 10*3/uL Normal 1.5-7.8 [facility] Comment on above: Performed By: #### F ERR, FE Prof, CBCAD, RETIC #### [facility] [address] [place], [place] [id number] Neutrophils/100 WBC (Bld) 66.5 % Normal [facility] Comment on above: Performed By: #### F ERR, FE Prof, CBCAD, RETIC #### [facility] [address] [place], [place] [id number] Platelet mean volume (Bld) [Entitic vol] 9.80 fL Normal 7.50-12.50 [facility] Comment on above: Performed By: #### F ERR, FE Prof, CBCAD, RETIC #### [facility] [address] [place], [place] [id number] Platelets (Bld) [#/Vol] 253 10*3/uL Normal 140-400 [facility] Comment on above: Performed By: #### F ERR, FE Prof, CBCAD, RETIC #### [facility] [address] [place], [place] [id number] RBC (Bld) [#/Vol] 4.34 10*6/uL Normal 3.90-5.20 [facility] Comment on above: Performed By: #### F ERR, FE Prof, CBCAD, RETIC #### [facility] [address] [place], [place] [id number] RDW-SD 43.6 fL Normal 37.0-50.0 [facility] Comment on above: Performed By: #### F ERR, FE Prof, CBCAD, RETIC #### [facility] [address] [place], [place] [id number] WBC (Bld) [#/Vol] 8.6 10*3/uL Normal 3.8-11.0 [facility] Comment on above: Performed By: #### F ERR, FE Prof, CBCAD, RETIC #### [facility] [address] [place], [place] [id number] Ferritinon 10-02-2021 FERR 77.1 ng/mL Normal 15.0-150.0 [facility] Comment on above: Performed By: #### F ERR, FE Prof, CBCAD, RETIC #### [facility] [address] [place], [place] [id number] Iron Profileon 10-02-2021 %FESAT 22 % Normal 11-50 [facility] Comment on above: Performed By: #### F ERR, FE Prof, CBCAD, RETIC #### [facility] [address] [place], [place] [id number] FE 67 ug/dL Normal 40-190 [facility] Comment on above: Result Comment: Refe rence range change 04/10/2017. Prior reference range F 37-145 ug/dL, M 59-158 ug/dL. Performed By: #### F ERR, FE Prof, CBCAD, RETIC #### [facility] [address] [place], [place] [id number] TIBC 300 ug/dL Normal 250-450 [facility] Comment on above: Performed By: #### F ERR, FE Prof, CBCAD, RETIC #### [facility] [address] [place], [place] [id number] UIBC 233 ug/dL Normal 112-347 [facility] Comment on above: Performed By: #### F ERR, FE Prof, CBCAD, RETIC #### [facility] [address] [place], [place] [id number] Q - PROTHROMBIN TIME WITH IN Tyson 10-02-2021 INR Coag (PPP) [Relative time] 1.0 {INR} Normal [facility] Comment on above: Order Comment: [facility] performed at: [facility], [facility], [address] [place] [address], [address] [place] [address], [phone], Senior Materials Planner: Balde Vazquez MD [facility] Date/Time: [facility] Results Received Date/Time: [facility] Reported Date/Time: Result Comment: Refe rence Range 0.9-1.1 Moderate-intensity Warfarin Therapy 2.0-3.0 Higher-intensity Warfarin Therapy 3.0-4.0 Performed By: #### 2 6F, 763X, 4919X #### [facility] [address] [place] [address] PT Coag (PPP) [Time] 9.7 s Normal 9.0-11.5 [facility] Comment on above: Order Comment: [facility] performed at: [employer], [facility], [address] [facility], [address] [place] [address], [phone], Senior Materials Planner: Blade Vazquez MD [facility] Date/Time: [facility] Results Received Date/Time: [facility] Reported Date/Time: Result Comment: For additional information, please refer to http://education.Fabricly/faq/RQT575 (This link is being provided for informational/ educational purposes only.) Performed By: #### 2 6F, 763X, 4919X #### [facility] [address] [place] [address] Q - PTTon 10-02-2021 PARTIAL THROMBOPLASTIN TIME, ACTIVATED 30 sec Normal 23-32 [facility] Astrophysics Professor Comment on above: Order Comment: [facility] performed at: [employer], [facility], [address] [facility], [address] [place] [address], [phone], Senior Materials Planner: Blade Vazquez MD [facility] Date/Time: [facility] Results Received Date/Time: [facility] Reported Date/Time: Result Comment: This test has not been validated for monitoring unfractionated heparin therapy. For testing that is validated for this type of therapy, please refer to the Heparin Anti-Xa assay (test code 69909). For additional information, please refer to http://education.SOLEM Electronique/faq/FXP173 (This link is being provided for informational/educational purposes only.) Performed By: #### 2 6F, 763X, 4919X #### [facility] [address] [place] [address] Q - VON WILLEBRAND FACTOR AN TIGENon 10-02-2021 VON WILLEBRAND FACTOR ANTIGEN 74 % Normal 50-217 [facility] Comment on above: Order Comment: [facility] performed at: [facility], [facility], [address], [place], [place], , Senior Materials Planner: Keven Crowley M.D.,PhD [facility] Date/Time: [facility] Results Received Date/Time: [facility] Reported Date/Time: Performed By: #### 2 6F, 763X, 4919X #### [facility] [address] [place] [address] RETICon 10-02-2021 IRF 8.90 % High 0.01-0.16 [facility] Comment on above: Performed By: #### F ERR, FE Prof, CBCAD, RETIC #### [facility] [address] [place], [place] [id number] RET# 0.07 M/uL Normal 0.02-0.10 [facility] Comment on above: Performed By: #### F ERR, FE Prof, CBCAD, RETIC #### [facility] [address] [place], [place] [id number] Ret% 1.51 % Normal 0.40-1.80 [facility] Comment on above: Performed By: #### F ERR, FE Prof, CBCAD, RETIC #### [facility] [address] [place], [place] [id number] RET-HE 36.90 pg Normal 31.90-37.1 0 [place] Astrophysics Professor Comment on above: Performed By: #### F ERR, FE Prof, CBCAD, RETIC #### [facility] [address] [place], [place] [id number] Vitamin B12/Folateon 022 Cobalamin (Vitamin B12) [Mass/Vol] 408 pg/mL Normal 211-946 [facility] Astrophysics Professor Comment on above: Performed By: #### B 12/Fol #### [facility] [address] [place], [place] [id number] FOL 8.6 ng/mL Normal >4.7 [facility] Astrophysics Professor Comment on above: Result Comment: Refe rence range change 04/10/2017. Prior reference range F 4.8-37.3 ng/mL, M 4.5-32.2 ng/mL. Performed By: #### B 12/Fol #### [facility] [address] [place], [place] [id number] XR knee LT 4V*on 07-20-2021 XR knee LT 4V* [facility] [employer] Other XR knee LT 4V* [facility] [employer] Other XR knee LT 4V* [address] [place] [address] [employer] Other XR knee LT 4V* [place] [address] No rt [employer] Other XR knee LT 4V* XRay Report [employer] Other XR knee LT 4V* Signed [employer] Other XR knee LT 4V* Patient: Erma Almazan MR#: [id number] [employer] Other XR knee LT 4V* 184 [facility] Other XR knee LT 4V* : 1995 Acct:[id number] [employer] Other XR knee LT 4V* Age/Sex: 26 / F ADM Date: 07/20/21 [employer] Other XR knee LT 4V* Loc: [id number] Room: [facility] [employer] Other XR knee LT 4V* Attending Dr: Asim Palma - [employer] Other XR knee LT 4V* Ordering Provider: Tony Goetz [facility] [employer] Other XR knee LT 4V* Date of Service: 07/20/21 [employer] Other XR knee LT 4V* XR/XR knee LT 4V*: Acute pain of left knee [employer] Other XR knee LT 4V* Copies to: Asim jones [place] [facility] [employer] Other XR knee LT 4V* Left knee 07/20/2021. [employer] Other XR knee LT 4V* CLINICAL DATA: Left knee pain. No known injury. [employer] Other XR knee LT 4V* FINDINGS: 4 views of the left knee were obtained. [employer] Other XR knee LT 4V* No acute fracture or dislocation is identified. No early degenerative or other arthritic changes [employer] Other XR knee LT 4V* are seen. No bony er osion or destruction is visualized. There is no suprapatellar effusion. [employer] Other XR knee LT 4V* X R/XR knee LT 4V* [employer] Other XR knee LT 4V* IMPRESSION: No acute bony abnormality or effusion. [employer] Other XR knee LT 4V* Impression dictated by: Quinn Wseton Jr., M.D.07/20/2021 1:51 PM [employer] Other XR knee LT 4V* Dictation Location: RADIO-PC-06 [employer] Other XR knee LT 4V* Transcribed By: CATRINA 07/20/21 [facility] [employer] Other XR knee LT 4V* Dictated By: Quinn Weston Jr, MD 07/20/21 [facility] [employer] Other XR knee LT 4V* Signed By: [employer] Other XR knee LT 4V* 07/20/21 [facility] [email or web address] oast [employer] Other CT ABDOMEN PELVIS WO CONTRAS Ton [...] menstrual changes, no trauma, R/O nephrolithiasis, 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 Interpreted by: Rena Garcia MD Signed by: Rena Garcia MD 12/08/20 Final result Normal [facility] CT ABDOMEN PELVIS WO CONTRAS T Additional Contrast? NoneOrdered By: Denton Barr on 12-08-2020 1. No acute intra-abdominal abnormality. 2. Hepatic steatosis. Multiple areas of increased attenuation in the hepatic lobes, likely fatty sparing. 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 Bones/Soft Tissues: No acute osseous abnormality. 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 [employer] Phone: [employer] Phone: BASIC METABOLIC PANELOrdered By: Denton Barr on 12-07-2020 Anion gap [Moles/Vol] 10 mmol/L 9 - 17 mmol/L [employer] Phone: Calcium [Mass/Vol] 8.7 mg/dL 8.6 - 10. 4 mg/dL [employer] Phone: Chloride [Moles/Vol] 103 mmol/L 98 - 10 7 mmol/L [employer] Phone: CO2 [Moles/Vol] 25 mmol/L 20 - 31 mmol/L [employer] Phone: Creatinine [Mass/Vol] 0.68 mg/dL 0.50 - 0.90 mg/dL [employer] Phone: GFR >60 >60 mL/min [employer] Phone: GFR Non- >60 >60 mL/min [employer] Phone: GFR/1.73 sq M.predicted MDRD (S/P/Bld) [Vol rate/Area] [employer] Phone: Comment on above: Average GFR for 20-2 9 years old: 116 mL/min/1.73sq m Chronic Kidney Disease: <60 mL/min/1.73sq m Kidney failure: <15 mL/min/1.73sq m eGFR calculated using average adult body mass. Additional eGFR calculator available at: http://www.cafegive/multiple_crcl_2012.htm GFR/1.73 sq M.predicted MDRD (S/P/Bld) [Vol rate/Area] NOT REPORTED [employer] Phone: Glucose [Mass/Vol] 108 mg/dL High 70 - 99 mg/dL [employer] Phone: Interpretation and review of laboratory results Abnormal [employer] Phone: Potassium [Moles/Vol] 4.1 mmol/L 3.7 - 5.3 mmol/L [employer] Phone: Sodium [Moles/Vol] 138 mmol/L 135 - 144 mmol/L [employer] Phone: Urea nitrogen (BldV) [Mass/Vol] 12 mg/dL 6 - 20 mg/dL [employer] Phone: Urea nitrogen/Creatinine (Bld) [Mass ratio] NOT REPORTED [employer] Phone: [employer] Phone: Basic Metabolic Profon 12-07 (cont.) Normal [facility] Comment on above: Result Comment: Aver age GFR for 20-29 years old: 116 mL/min/1.73sq m Chronic Kidney Disease: <60 mL/min/1.73sq m Kidney failure: <15 mL/min/1.73sq m eGFR calculated using average adult body mass. Additional eGFR calculator available at: http://www.[employer].com/multiple_crcl_2012.htm Performed By: #### C DP, HCG, BMP #### [address] [address] Forestry Laborer: Lloyd Vela MD Anion gap [Moles/Vol] 10 mmol/L Normal 9-17 [facility] Comment on above: Performed By: #### C DP, HCG, BMP #### [address] [address] Forestry Laborer: Lloyd Vela MD Calcium [Mass/Vol] 8.7 mg/dL Normal 8.6-10.4 [facility] Comment on above: Performed By: #### C DP, HCG, BMP #### [address] [address] Forestry Laborer: Lloyd Vela MD Chloride [Moles/Vol] 103 mmol/L Normal 98-107 [facility] Comment on above: Performed By: #### C DP, HCG, BMP #### [address] [address] Forestry Laborer: Lloyd Vela MD CO2 [Moles/Vol] 25 mmol/L Normal 20-31 [facility] Comment on above: Performed By: #### C DP, HCG, BMP #### [facility] Locally [address] [place] [address] Forestry Laborer: Lloyd Vela MD Creatinine [Mass/Vol] 0.68 mg/dL Normal 0.50-0.90 [facility] Comment on above: Performed By: #### C DP, HCG, BMP #### [facility] Locally [address] [place] [address] Forestry Laborer: Lloyd Vela MD GFR, Amer >60 Normal >60 [facility] Comment on above: Performed By: #### C DP, HCG, BMP #### [facility] Locally [address] [place] [address] Forestry Laborer: Lloyd Vela MD GFR,non Amer >60 Normal >60 [facility] Comment on above: Performed By: #### C DP, HCG, BMP #### [facility] Locally [address] [place] [address] Forestry Laborer: Lloyd Vela MD Glucose [Mass/Vol] 108 mg/dL High 70-99 [facility] Comment on above: Performed By: #### C DP, HCG, BMP #### [facility] Locally [address] [place] [address] Forestry Laborer: Lloyd Vela MD Potassium [Moles/Vol] 4.1 mmol/L Normal 3.7-5.3 [facility] Comment on above: Performed By: #### C DP, HCG, BMP #### [facility] Locally [address] [place] [address] Forestry Laborer: Lloyd Vela MD Sodium [Moles/Vol] 138 mmol/L Normal 135-144 [facility] Comment on above: Performed By: #### C DP, HCG, BMP #### [facility] Locally [address] [place] [address] Forestry Laborer: Lloyd Vela MD Urea nitrogen [Mass/Vol] 12 mg/dL Normal 6-20 [facility] Comment on above: Performed By: #### C DP, HCG, BMP #### [facility] Locally [address] [place] [address] Forestry Laborer: Lloyd Vela MD BUN/CRE Ratio NOT REPORTED Normal -20 [facility] Comment on above: Performed By: #### C DP, HCG, BMP #### [facility] Locally [address] [place] [address] Forestry Laborer: Lloyd Vela MD Staging: NOT REPORTED Normal [facility] Comment on above: Performed By: #### C DP, HCG, BMP #### [email or web address] [address] [place] [address] Forestry Laborer: Lloyd Vela MD CBC WITH AUTO DIFFERENTIALOr dered By: Denton Barr on 12-07-2020 [employer]os # 0.07 [employer] [facility] Work Phone: Absolute Immature Granulocyte 0.05 [employer] Work Phone: Absolute Lymph # 3.21 [employer] [facility] Work Phone: Absolute Amite # 0.94 [facility] Work Phone: Basophils (Bld) [#/Vol] 0.04 10*3/uL [employer] Work Phone: Basophils/100 WBC (Bld) 0 % 0 - 2 % [employer] Phone: Differential Type NOT REPORTED [employer] Work Phone: Eosinophils/100 WBC (Bld) 1 % 1 - 4 % [employer] Phone: Hematocrit (Bld) [Volume fraction] 39.2 % 36.3 - 47.1 % [employer] Phone: Hemoglobin.gastrointes tinal spec 1 Ql (Stl) 13.1 g/dL 11.9 - 15.1 g/dL [employer] Phone: Immature granulocytes/100 WBC (Bld) 0 % 0 [employer] Phone: Interpretation and review of laboratory results Abnormal [employer] Phone: Lymphocytes/100 WBC (Bld) 27 % 24 - 43 % [employer] Work Phone: MCH (RBC) [Entitic mass] 31.0 pg 25.2 - 33.5 pg [employer] Work Phone: MCHC (RBC) [Mass/Vol] 33.4 g/dL 28.4 - 34.8 g/dL [employer] Phone: MCV (RBC) [Entitic vol] 92.9 fL 82.6 - 102.9 fL [employer] Phone: Monocytes/100 WBC (Bld) 8 % 3 - 12 % [employer] Work Phone: NRBC Automated 0.0 0.0 per 100 WBC [employer] Phone: Platelet distribution width (Bld) [Ratio] 12.3 % 11.8 - 14.4 % [employer] Phone: Platelet Estimate NOT REPORTED [employer] Phone: Platelet mean volume (Bld) [Entitic vol] 9.0 fL 8.1 - 13.5 fL [employer] Phone: Platelets (Bld) [#/Vol] 314 10*3/uL [employer] Phone: RBC (Bld) [#/Vol] 4.22 10*6/uL 3.95 - 5.11 m/uL [employer] Work Phone: RBC (Bld) [#/Vol] NOT REPORTED [employer] Phone: Segmented neutrophils/100 WBC (Bld) 64 % 36 - 65 % [employer] Work Phone: Segs Absolute 7.42 [employer] Work Phone: WBC (Bld) [#/Vol] 11.7 10*3/uL High [employer] Work Phone: WBC (Bld) [#/Vol] NOT REPORTED [employer] Work Phone: [employer] Work Phone: CBC with Diffon 12-07-2020 Abs. Basophil 0.04 k/uL Normal 0.00-0.20 [facility] Comment on above: Performed By: #### C DP, HCG, BMP #### [address] [address] Forestry Laborer: Lloyd Vela MD Abs.Imm.Granulocyte 0.05 k/uL Normal 0.00-0.30 [facility] Comment on above: Performed By: #### C DP, HCG, BMP #### [facility] Locally [address] [place] [address] Forestry Laborer: Lloyd Vela MD Abs.Neutrophil (Seg) 7.42 k/uL Normal 1.50-8.10 [facility] Comment on above: Performed By: #### C DP, HCG, BMP #### [facility] Locally [address] [place] [address] Forestry Laborer: Lloyd Vela MD Basophils/100 WBC (Bld) 0 % Normal 0-2 [facility] Comment on above: Performed By: #### C DP, HCG, BMP #### [place] [address] Forestry Laborer: Lloyd Vela MD Eosinophils (Bld) [#/Vol] 0.07 10*3/uL Normal 0.00-0.44 [facility] Comment on above: Performed By: #### C DP, HCG, BMP #### [place] [address] Forestry Laborer: Lloyd Vela MD Eosinophils/100 WBC (Bld) 1 % Normal 1-4 [facility] Comment on above: Performed By: #### C DP, HCG, BMP #### [facility] Locally [address] [place] [address] Forestry Laborer: Lloyd Vela MD Immature granulocytes/100 WBC (Bld) 0 % Normal 0 [facility] Comment on above: Performed By: #### C DP, HCG, BMP #### [address] [address] Forestry Laborer: Lloyd Vela MD Lymphocytes (Bld) [#/Vol] 3.21 10*3/uL Normal 1.10-3.70 [facility] Comment on above: Performed By: #### C DP, HCG, BMP #### [address] [address] Forestry Laborer: Lloyd Vela MD Lymphocytes/100 WBC (Bld) 27 % Normal 24-43 [facility] Comment on above: Performed By: #### C DP, HCG, BMP #### [address] [address] Forestry Laborer: Lloyd Vela MD Monocytes (Bld) [#/Vol] 0.94 10*3/uL Normal 0.10-1.20 [facility] Comment on above: Performed By: #### C DP, HCG, BMP #### [address] [address] Forestry Laborer: Lloyd Vela MD Monocytes/100 WBC (Bld) 8 % Normal 3-12 [facility] Comment on above: Performed By: #### C DP, HCG, BMP #### [address] [address] Forestry Laborer: Lloyd Vela MD Neutrophil (Seg) 64 % Normal 36-65 [facility] Comment on above: Performed By: #### C DP, HCG, BMP #### [facility] Locally [address] [place] [address] Forestry Laborer: Lloyd Vela MD Erythrocyte distribution width (RBC) [Ratio] 12.3 % Normal 11.8-14.4 [facility] Comment on above: Performed By: #### C DP, HCG, BMP #### [facility] Locally [address] [place] [address] Forestry Laborer: Lloyd Vela MD Hematocrit (Bld) [Volume fraction] 39.2 % Normal 36.3-47.1 [facility] Comment on above: Performed By: #### C DP, HCG, BMP #### [address] [address] Forestry Laborer: Lloyd Vela MD Hemoglobin (Bld) [Mass/Vol] 13.1 g/dL Normal 11.9-15.1 [facility] Comment on above: Performed By: #### C DP, HCG, BMP #### [address] [address] Forestry Laborer: Lloyd Vela MD MCH (RBC) [Entitic mass] 31.0 pg Normal 25.2-33.5 [facility] Comment on above: Performed By: #### C DP, HCG, BMP #### [address] [address] Forestry Laborer: Lloyd Vela MD MCHC (RBC) [Mass/Vol] 33.4 g/dL Normal 28.4-34.8 [facility] Comment on above: Performed By: #### C DP, HCG, BMP #### [address] [address] Forestry Laborer: Lloyd Vela MD MCV (RBC) [Entitic vol] 92.9 fL Normal 82.6-102.9 [facility] Comment on above: Performed By: #### C DP, HCG, BMP #### [address] [address] Forestry Laborer: Lloyd Vela MD NRBC Automated 0.0 per 100 WBC Normal 0.0 [facility] Comment on above: Performed By: #### C DP, HCG, BMP #### [address] [address] Forestry Laborer: Lloyd Vela MD Platelet mean volume (Bld) [Entitic vol] 9.0 fL Normal 8.1-13.5 [facility] Comment on above: Performed By: #### C DP, HCG, BMP #### [address] [address] Forestry Laborer: Lloyd Vela MD Platelets (Bld) [#/Vol] 314 10*3/uL Normal 138-453 [facility] Comment on above: Performed By: #### C DP, HCG, BMP #### [facility] Locally [address] [place] [address] Forestry Laborer: Lloyd Vela MD RBC (Bld) [#/Vol] 4.22 10*6/uL Normal 3.95-5.11 [facility] Comment on above: Performed By: #### C DP, HCG, BMP #### [address] [address] Forestry Laborer: Lloyd Vela MD WBC (Bld) [#/Vol] 11.7 10*3/uL High 3.5-11.3 [facility] Comment on above: Performed By: #### C DP, HCG, BMP #### [address] [address] Forestry Laborer: Lloyd Vela MD Auto Diff Performed NOT REPORTED Normal [facility] Comment on above: Performed By: #### C DP, HCG, BMP #### [facility] Locally [address] [place] [address] Forestry Laborer: Lloyd Vela MD Platelet Estimate NOT REPORTED Normal [facility] Comment on above: Performed By: #### C DP, HCG, BMP #### [facility] Locally [address] [place] [address] Forestry Laborer: Lloyd Vela MD RBC morphology finding Nom (Bld) NOT REPORTED Normal [facility] Comment on above: Performed By: #### C DP, HCG, BMP #### [email or web address] [address] [place], [place] [id number] Forestry Laborer: Lloyd Vela MD WBC Morphology NOT REPORTED Normal [facility] Comment on above: Performed By: #### C DP, HCG, BMP #### [email or web address] [address] [place], [place] [phone] Forestry Laborer: Lloyd Vela MD HCG Qualitative, SerumOrdere d By: JeraldKelly Brittneyshaquille on 12-07-2020 hCG Qual Negative NEGATIVE [employer] Phone: Comment on above: Specimens with hCG l evels near the threshold of the test (25 mIU/mL) may give a negative or indeterminate result. In such cases, another test should be performed with a new specimen in 48-72 hours. If early is suspected clinically in this setting, correlation with quantitative serum b-hCG level is suggested. [email or web address] has confirmed the use of plasma for this test. This has not been cleared or approved by the U.S. Food and Drug Administration. The FDA has determined that such clearance is not necessary. [employer] Phone: HCG Screen, Bloodon 12-08-19 21 HCG Screen, Blood Negative Normal NEG [facility] Comment on above: Result Comment: Spec imens with hCG levels near the threshold of the test (25 mIU/mL) may give a negative or indeterminate result. In such cases, another test should be performed with a new specimen in 48-72 hours. If early is suspected clinically in this setting, correlation with quantitative serum b-hCG level is suggested. [email or web address] has confirmed the use of plasma for this test. This has not been cleared or approved by the U.S. Food and Drug Administration. The FDA has determined that such clearance is not necessary. Performed By: #### C DP, HCG, BMP #### [email or web address] [address] [place], [place] [id number] Forestry Laborer: Lloyd Vela MD Microscopic UrinalysisOrdere d By: Denton Barr on 12-07-2020 - [employer] Phone: Amorphous, UA NOT REPORTED None [facility] Work Phone: Bacteria, UA FEW Abnormal None [facility] Work Phone: Casts UA NOT REPORTED [facility] Work Phone: Crystals, UA NOT REPORTED None /HPF [facility] Work Phone: Epithelial Cells UA 2 TO 5 [facility] Work Phone: Interpretation and review of laboratory results Abnormal [facility] Work Phone: Mucus, UA NOT REPORTED None [facility] Work Phone: Other Observations UA NOT REPORTED NOT REQ. [facility] Work Phone: RBC, UA 2 TO 5 [facility] Work Phone: Comment on above: Reference range defi hafsa for non-centrifuged specimen. Renal Epithelial, UA NOT REPORTED 0 /HPF [facility] Work Phone: Trichomonas, UA NOT REPORTED None [facility] Work Phone: WBC, UA 5 TO 10 [facility] Work Phone: Yeast, UA NOT REPORTED None [facility] Work Phone: [facility] [employer] Work Phone: UA w/Reflex Cultureon 2020 Bilirubin, SemiQt,Ur Negative Normal NEG [facility] Comment on above: Performed By: #### U MICAO, UAX #### [facility] [address] [place] [address] Forestry Laborer: Lloyd Vela MD Blood, Urine TRACE Abnormal NEG [facility] Comment on above: Performed By: #### U MICAO, UAX #### [employer] [address] [place], [place] [id number] Forestry Laborer: Lloyd Vela MD Clarity (U) CLEAR Normal CLEAR [facility] Comment on above: Performed By: #### U MICAO, UAX #### [address] [address] Forestry Laborer: Lloyd Vela MD Color (U) YELLOW Normal YEL [facility] Comment on above: Performed By: #### U MICAO, UAX #### [address] [address] Forestry Laborer: Lloyd Vela MD Glucose Ql (U) Negative Normal NEG [facility] Comment on above: Performed By: #### U MICAO, UAX #### [address] [address] Forestry Laborer: Lloyd Vela MD Ketones Ql (U) Negative Normal NEG [facility] Comment on above: Performed By: #### U MICAO, UAX #### [address] [address] Forestry Laborer: Lloyd Vela MD Leukocyte esterase Test strip Ql (U) Negative Normal NEG [facility] Comment on above: Performed By: #### U MICAO, UAX #### [address] [address] Forestry Laborer: Lloyd Vela MD Nitrite,Ur Negative Normal NEG [facility] Comment on above: Performed By: #### U MICAO, UAX #### [address] [address] Forestry Laborer: Lloyd Vela MD PH,Ur 5.5 Normal 5.0-8.0 [facility] Comment on above: Performed By: #### U MICAO, UAX #### [address] [address] Forestry Laborer: Lloyd Vela MD Protein Ql (U) Negative Normal NEG [facility] Comment on above: Performed By: #### U MICAO, UAX #### [facility] [place], [place] [phone] Forestry Laborer: Lloyd Vela MD Spec. [place],Ur 1.020 Normal 1.005-1.03 0 [facility] Comment on above: Performed By: #### U MICAO, UAX #### [facility] [place] [address] Forestry Laborer: Lloyd Vela MD Urobilinogen,Ur Normal Normal NORM [facility] Comment on above: Performed By: #### U MICAO, UAX #### [facility] [address] [place] [phone] Forestry Laborer: Lloyd Vela MD Comment NOT REPORTED Normal [facility] Comment on above: Performed By: #### U MICAO, UAX #### [facility] [address] [place] [phone] Forestry Laborer: Lloyd Vela MD Urinalysis Reflex to Culture Ordered By: Denton Barr on 12-07-2020 Bilirubin Urine Negative NEGATIVE [employer] [facility] Work Phone: Color, UA YELLOW YELLOW [facility] Work Phone: Glucose, Ur Negative NEGATIVE [employer] Work Phone: Interpretation and review of laboratory results Abnormal [employer] Work Phone: Ketones Ql (U) Negative NEGATIVE [employer] [facility] Work Phone: Leukocyte esterase Test strip Ql (U) Negative NEGATIVE [employer] Work Phone: Nitrite, Urine Negative NEGATIVE [employer] Work Phone: pH, UA 5.5 [facility] [employer] Work Phone: Protein, UA Negative NEGATIVE [employer] Work Phone: Specific [place], UA 1.020 [employer] Work Phone: Turbidity UA CLEAR CLEAR [facility] [employer] Work Phone: Urinalysis Comments NOT REPORTED [facility] [employer] Work Phone: Urine Hgb TRACE Abnormal NEGATIVE [facility] [employer] Phone: Urobilinogen, Urine Normal Normal [facility] [employer] Phone: [facility] [employer] Work Phone: Urinalysis,Microon 1 ----- Normal [facility] Comment on above: Performed By: #### U MICAO, UAX #### [facility] Locally [address] [place] [address] Forestry Laborer: Lloyd Vela MD Bacteria FEW Abnormal NONE [facility] Comment on above: Performed By: #### U MICAO, UAX #### [facility] Locally [address] [place] [address] Forestry Laborer: Lloyd Vela MD Epithelial cells LM Ql (Urine sed) 2 TO 5 Normal 0-5 [facility] Comment on above: Performed By: #### U MICAO, UAX #### [facility] [address] [place] [address] Forestry Laborer: Lloyd Vela MD Urine RBC's 2 TO 5 Normal 0-4 [facility] Comment on above: Result Comment: Refe rence range defined for non-centrifuged specimen. Performed By: #### U MICAO, UAX #### [facility] [address] [place] [address] Forestry Laborer: Lloyd Vela MD Urine WBC's 5 TO 10 Normal 0-5 [facility] Comment on above: Performed By: #### U MICAO, UAX #### [facility] Locally [address] [place] [address] Forestry Laborer: Lloyd Vela MD Amorphous sediment LM Ql (Urine sed) NOT REPORTED Normal NONE [facility] Comment on above: Performed By: #### U THOMASO, UAX #### [facility] Locally [address] [place] [address] Forestry Laborer: Lloyd Vela MD Casts NOT REPORTED Normal 0-8 [facility] Comment on above: Performed By: #### U MICAO, UAX #### [facility] Loc[facility] [address] [place] [address] Forestry Laborer: Lloyd Vela MD Crystals LM Nom (Urine sed) NOT REPORTED Normal NONE [facility] Comment on above: Performed By: #### U MICAO, UAX #### [address] [address] Forestry Laborer: Lloyd Vela MD Epithelial, Renal NOT REPORTED Normal 0 [facility] Comment on above: Performed By: #### U THOMASO, UAX #### [facility] Locally [address] [place] [id number] Forestry Laborer: Lloyd Vela MD Mucus Strands NOT REPORTED Normal [facility] Comment on above: Performed By: #### U MICAO, UAX #### [facility] Locally [address] [place] [id number] Forestry Laborer: Lloyd Vela MD Other Observations NOT REPORTED Normal NREQ [facility] Comment on above: Performed By: #### U MICAO, UAX #### [facility] Locally [address] [place] [id number] Forestry Laborer: Lloyd Vela MD Trichomonas NOT REPORTED Normal [facility] Comment on above: Performed By: #### U MICAO, UAX #### [facility] Locally [address] [place] [id number] Forestry Laborer: Lloyd Vela MD Yeast NOT REPORTED Normal [facility] Comment on above: Performed By: #### U MATHIEU, UAX #### [email or web address] [id number] [id number] Forestry Laborer: Lloyd Vela MD Vital Signs Date Time Vital Sign Value Performing Clinician Facility 06-09-2024 09:14-0500 Body mass index (BMI) [Ratio] 39.76 kg/m2 Donovan Vielka DO Work Phone: [facility] 06-09-2024 09:14-0500 Body weight 98.61 kg Donovan Vielka DO Work Phone: [facility] 06-09-2024 09:14-0500 Diastolic blood pressure 72 mm[Hg] Donovan Vielka DO Work Phone: [facility] 06-09-2024 09:14-0500 Systolic blood pressure 112 mm[Hg] Donovan Vielka DO Work Phone: [facility] 05-10-2024 10:05-0500 Body mass index (BMI) [Ratio] 39.51 kg/m2 America Thompson PA Work Phone: [facility] 05-10-2024 10:05-0500 Body weight 97.98 kg America Jay PA Work Phone: [facility] 05-10-2024 10:05-0500 Diastolic blood pressure 72 mm[Hg] America Jay PA Work Phone: [facility] 05-10-2024 10:05-0500 Systolic blood pressure 120 mm[Hg] America Thompson PA Work Phone: [facility] 04-25-2024 09:02-0500 Body mass index (BMI) [Ratio] 39.32 kg/m2 Peng Olivares SERVICE TESTER Work Phone: [facility] 04-25-2024 09:02-0500 Body temperature 97.5 [degF] Peng Olivares SERVICE TESTER Work Phone: [facility] 04-25-2024 09:02-0500 Body weight 97.52 kg Peng Olivares SERVICE TESTER Work Phone: [facility] 04-25-2024 09:02-0500 Diastolic blood pressure 74 mm[Hg] Peng Olivares SERVICE TESTER Work Phone: [facility] 04-25-2024 09:02-0500 Heart rate 93 /min Peng Olivares SERVICE TESTER Work Phone: [facility] 04-25-2024 09:02-0500 SaO2% (BldA) [Mass fraction] 98 % Peng Olivares SERVICE TESTER Work Phone: [facility] 04-25-2024 09:02-0500 Systolic blood pressure 118 mm[Hg] Peng Olivares SERVICE TESTER Work Phone: [facility] 04-11-2024 10:26-0500 Body mass index (BMI) [Ratio] 39.43 kg/m2 Donovan Vielka DO Work Phone: [facility] 04-11-2024 10:26-0500 Body weight 97.79 kg Donovan Vielka DO Work Phone: [facility] 04-11-2024 10:26-0500 Diastolic blood pressure 70 mm[Hg] Donovan Vielka DO Work Phone: [facility] 04-11-2024 10:26-0500 Systolic blood pressure 124 mm[Hg] Donvoan Vielka DO Work Phone: [facility] 03-24-2024 18:54-0400 Body temperature 98.24 [degF] [facility] 03-24-2024 18:54-0400 Diastolic blood pressure 68 mm[Hg] [facility] 03-24-2024 18:54-0400 Heart rate 57 /min [facility] 03-24-2024 18:54-0400 Respiratory rate 16 /min [facility] 03-24-2024 18:54-0400 SaO2% (BldA) [Mass fraction] 100 % [facility] 03-24-2024 18:54-0400 Systolic blood pressure 128 mm[Hg] Astrit Hajdari [facility] 03-10-2024 13:08-0400 Body mass index (BMI) [Ratio] 39.78 kg/m2 Nom Nurse [facility] 03-10-2024 13:08-0400 Body weight 98.66 kg [facility] Nurse [facility] 03-10-2024 13:08-0400 Diastolic blood pressure 72 mm[Hg] [facility] Nurse [facility] 03-10-2024 13:08-0400 Systolic blood pressure 114 mm[Hg] [facility] Nurse [facility] 02-04-2024 13:34-0400 Body height 157.48 cm LOAN FUNDER Georgie Fareed Work Phone: [facility] 02-04-2024 13:34-0400 Body mass index (BMI) [Ratio] 39.2 kg/m2 LOAN FUNDER Georgie Fareed Work Phone: [facility] 02-04-2024 13:34-0400 Body temperature 98.1 [degF] LOAN FUNDER Georgie Fareed Work Phone: [facility] 02-04-2024 13:34-0400 Body weight 97.18 kg LOAN FUNDER Georgie Fareed Work Phone: [facility] 02-04-2024 13:34-0400 Diastolic blood pressure 77 mm[Hg] LOAN FUNDER Georgie Fareed Work Phone: [facility] 02-04-2024 13:34-0400 Heart rate 77 /min LOAN FUNDER Georgie Fareed Work Phone: [facility] 02-04-2024 13:34-0400 SaO2% (BldA) [Mass fraction] 98 % LOAN FUNDER Georgie Fareed Work Phone: [facility] 02-04-2024 13:34-0400 Systolic blood pressure 114 mm[Hg] LOAN FUNDER Georgie Fareed Work Phone: [facility] 01-15-2024 21:31-0400 Body temperature 99.14 [degF] Roman Yahaira [facility] 01-15-2024 21:31-0400 Diastolic blood pressure 86 mm[Hg] Roman Yahaira [facility] 01-15-2024 21:31-0400 Heart rate 66 /min Roman Yahaira [facility] 01-15-2024 21:31-0400 Respiratory rate 18 /min Roman Yahaira [facility] 01-15-2024 21:31-0400 SaO2% (BldA) [Mass fraction] 98 % Roman Yahaira [facility] 01-15-2024 21:31-0400 Systolic blood pressure 131 mm[Hg] Roman Yahaira [facility] 11-18-2023 09:57-0400 Body height 157.48 cm MD Jelly Chery Work Phone: [facility] 11-18-2023 09:57-0400 Body mass index (BMI) [Ratio] 38.5 kg/m2 MD Jelly Chery Work Phone: [facility] 11-18-2023 09:57-0400 Body temperature 97.5 [degF] MD Jelly Chery Work Phone: [facility] 11-18-2023 09:57-0400 Body weight 95.7 kg MD Jelly Chery Work Phone: [facility] 11-18-2023 09:57-0400 Diastolic blood pressure 72 mm[Hg] MD Jelly Chery Work Phone: [facility] 11-18-2023 09:57-0400 Heart rate 51 /min MD Jelly Chery Work Phone: [facility] 11-18-2023 09:57-0400 Respiratory rate 18 /min MD Jelly Chery Work Phone: [facility] 11-18-2023 09:57-0400 SaO2% (BldA) [Mass fraction] 98 % MD Jelly Chery Work Phone: [facility] 11-18-2023 09:57-0400 Systolic blood pressure 117 mm[Hg] MD Jelly Chery Work Phone: [facility] 10-30-2023 18:56-0400 Body height 157.48 cm MD Jelly Chery Work Phone: [facility] 10-30-2023 18:56-0400 Body mass index (BMI) [Ratio] 35 kg/m2 MD Jelly Chery Work Phone: [facility] 10-30-2023 18:56-0400 Body temperature 97.8 [degF] MD Jelly Chery Work Phone: [facility] 10-30-2023 18:56-0400 Body weight 87 kg MD Jelly Chery Work Phone: [facility] 10-30-2023 18:56-0400 Diastolic blood pressure 86 mm[Hg] MD Jelly Chery Work Phone: [facility] 10-30-2023 18:56-0400 Heart rate 103 /min MD Jelly Chery Work Phone: [facility] 10-30-2023 18:56-0400 Respiratory rate 16 /min MD Jelly Chery Work Phone: [facility] 10-30-2023 18:56-0400 SaO2% (BldA) [Mass fraction] 98 % MD Jelly Chery Work Phone: [facility] 10-30-2023 18:56-0400 Systolic blood pressure 125 mm[Hg] MD Jelly Chery Work Phone: [facility] 09-29-2023 10:46-0400 Body height 157.48 cm MD Jelly Chery Work Phone: [facility] 09-29-2023 10:46-0400 Body mass index (BMI) [Ratio] 35.1 kg/m2 MD Jelly Chery Work Phone: [facility] 09-29-2023 10:46-0400 Body temperature 97.7 [degF] MD Jelly Chery Work Phone: [facility] 09-29-2023 10:46-0400 Body weight 87.08 kg MD Jelly Chery Work Phone: [facility] 09-29-2023 10:46-0400 Diastolic blood pressure 78 mm[Hg] MD Jelly Chery Work Phone: [facility] 09-29-2023 10:46-0400 Heart rate 64 /min MD Jelly Chery Work Phone: [facility] 09-29-2023 10:46-0400 SaO2% (BldA) [Mass fraction] 98 % MD Jelly Chery Work Phone: [facility] 09-29-2023 10:46-0400 Systolic blood pressure 115 mm[Hg] MD Jelly Chery Work Phone: [facility] 09-07-2023 14:31-0400 Body height 157.48 cm MD Jelly Chery Work Phone: [facility] 09-07-2023 14:31-0400 Body mass index (BMI) [Ratio] 37.6 kg/m2 MD Jelly Chery Work Phone: [facility] 09-07-2023 14:31-0400 Body temperature 98.2 [degF] MD Jelly Chery Work Phone: [facility] 09-07-2023 14:31-0400 Body weight 93.44 kg MD Jelly Chery Work Phone: [facility] 09-07-2023 14:31-0400 Diastolic blood pressure 72 mm[Hg] MD Jelly Chery Work Phone: [facility] 09-07-2023 14:31-0400 Heart rate 57 /min MD Jelly Chery Work Phone: [facility] 09-07-2023 14:31-0400 Systolic blood pressure 116 mm[Hg] MD Jelly Chery Work Phone: [facility] 07-27-2023 14:08-0500 Body height 157.48 cm MD Jelly Chery Work Phone: [facility] 07-27-2023 14:08-0500 Body mass index (BMI) [Ratio] 37.6 kg/m2 MD Jelly Chery Work Phone: [facility] 07-27-2023 14:08-0500 Body temperature 98.2 [degF] MD Jelly Chery Work Phone: [facility] 07-27-2023 14:08-0500 Body weight 93.44 kg MD Jelly Chery Work Phone: [facility] 07-27-2023 14:08-0500 Diastolic blood pressure 80 mm[Hg] MD Jelly Chery Work Phone: [facility] 07-27-2023 14:08-0500 Heart rate 65 /min MD Jelly Chery Work Phone: [facility] 07-27-2023 14:08-0500 Systolic blood pressure 127 mm[Hg] MD Jelly Chery Work Phone: [facility] 07-05-2023 12:29-0500 Body temperature 96.49 [degF] Rad Sims DO Work Phone: [facility] 07-05-2023 12:29-0500 Heart rate 67 /min Rad Sims DO Work Phone: [facility] 07-05-2023 12:29-0500 SaO2% (BldA) [Mass fraction] 99 % Rad Sims DO Work Phone: [facility] 06-29-2023 16:07-0500 Body temperature 97.3 [degF] Miguel Ang PA-C Work Phone: [facility] 06-29-2023 16:07-0500 Diastolic blood pressure 67 mm[Hg] Miguel Ang PA-C Work Phone: [facility] 06-29-2023 16:07-0500 Heart rate 68 /min Miguel [place] PA-C Work Phone: [facility] 06-29-2023 16:07-0500 Systolic blood pressure 121 mm[Hg] Miguel [place] PA-C Work Phone: [facility] 01-11-2023 22:27-0400 Body height 157.48 cm MD Jelly Chery Work Phone: [facility] 01-11-2023 22:27-0400 Body temperature 98.5 [degF] MD Jelly Chery Work Phone: [facility] 01-11-2023 22:27-0400 Body weight 88.45 kg MD Jelly Chery Work Phone: [facility] 01-11-2023 22:27-0400 Diastolic blood pressure 85 mm[Hg] MD Jelly Chery Work Phone: [facility] 01-11-2023 22:27-0400 Heart rate 65 /min MD Jelly Chery Work Phone: [facility] 01-11-2023 22:27-0400 Respiratory rate 18 /min MD Jelly Chery Work Phone: [facility] 01-11-2023 22:27-0400 SaO2% (BldA) [Mass fraction] 100 % MD Jelly Chery Work Phone: [facility] 01-11-2023 22:27-0400 Systolic blood pressure 144 mm[Hg] MD Jelly Chery Work Phone: [facility] 10-17-2022 18:45-0400 Body height 154.94 cm Nasreen Delaney Other [employer] Other 10-17-2022 18:45-0400 Body mass index (BMI) [Ratio] 35.59 kg/m2 Nasreen Delaney Other [employer] Other 10-17-2022 18:45-0400 Body temperature 98.2 [degF] Nasreen Delaney Other [employer] Other 10-17-2022 18:45-0400 Body weight 85.46 kg Nasreen Delaney Other [employer] Other 10-17-2022 18:45-0400 Respiratory rate 18 /min Nasreen Delaney Other [employer] Other 10-17-2022 18:45-0400 SaO2% (BldA) [Mass fraction] 98 % Nasreen Delaney Other [employer] Other 07-20-2022 14:00-0500 Diastolic blood pressure 66 mm[Hg] Roman Yahaira [facility] 07-20-2022 14:00-0500 Heart rate 79 /min Roman Yahaira [facility] 07-20-2022 14:00-0500 Hourly Rounding Roman Yahaira [facility] 07-20-2022 14:00-0500 Mean blood pressure 81 mm[Hg] Roman Yahaira [facility] 07-20-2022 14:00-0500 Promise to Return Roman Yahaira [facility] 07-20-2022 14:00-0500 SaO2% (BldA) [Mass fraction] 97 % Roman Yahaira [facility] 07-20-2022 14:00-0500 Systolic blood pressure 110 mm[Hg] Roman Yahaira [facility] 07-20-2022 01:00-0500 Diastolic blood pressure 72 mm[Hg] Roman Yahaira [facility] 07-20-2022 01:00-0500 Heart rate 81 /min Roman Yahaira [facility] 07-20-2022 01:00-0500 Hourly Rounding Roman Yahaira [facility] 07-20-2022 01:00-0500 Mean blood pressure 89 mm[Hg] Roman Yahaira [facility] 07-20-2022 01:00-0500 Promise to Return Roman Yahaira [facility] 07-20-2022 01:00-0500 SaO2% (BldA) [Mass fraction] 99 % Roman Yahaira [facility] 07-20-2022 01:00-0500 Systolic blood pressure 122 mm[Hg] Roman Yahaira [facility] 07-20-2022 00:00-0500 Heart rate 83 /min Roman Yahaira [facility] 07-20-2022 00:00-0500 Hourly Rounding Roman Yahaira [facility] 07-20-2022 00:00-0500 Mean blood pressure 84 mm[Hg] Roman Yahaira [facility] 07-20-2022 00:00-0500 Promise to Return Roman Yahaira [facility] 07-20-2022 00:00-0500 SaO2% (BldA) [Mass fraction] 96 % Roman Yahaira [facility] 07-20-2022 00:00-0500 Systolic blood pressure 107 mm[Hg] Roman Yahaira [facility] 07-19-2022 21:47-0500 Body temperature 98.6 [degF] Roman Changner [facility] 07-19-2022 21:47-0500 Heart rate 113 /min Roman Changner [facility] 07-19-2022 21:47-0500 Respiratory rate 16 /min Roman Syed [facility] 07-08-2022 22:00-0500 Diastolic blood pressure 68 mm[Hg] Rj Pink [facility] 07-08-2022 22:00-0500 Respiratory rate 17 /min Rj Pink [facility] 07-08-2022 22:00-0500 SaO2% (BldA) [Mass fraction] 95 % Rj Pink [facility] 07-08-2022 22:00-0500 Systolic blood pressure 110 mm[Hg] Rj Pink [facility] 07-08-2022 21:43-0500 Body temperature 98.6 [degF] Rj Pink [facility] 07-08-2022 21:43-0500 Diastolic blood pressure 69 mm[Hg] Rj Pink [facility] 07-08-2022 21:43-0500 Heart rate 94 /min Rj Pink [facility] 07-08-2022 21:43-0500 Mean blood pressure 82 mm[Hg] Rj Pink [facility] 07-08-2022 21:43-0500 Systolic blood pressure 108 mm[Hg] Rj Pink [facility] 07-08-2022 21:00-0500 SaO2% (BldA) [Mass fraction] 93 % Rj Pnik [facility] 07-08-2022 20:00-0500 Body temperature 99.5 [degF] Rj Pink [facility] 07-08-2022 20:00-0500 Diastolic blood pressure 58 mm[Hg] Rj Due [facility] 07-08-2022 20:00-0500 Heart rate 110 /min Rj Due [facility] 07-08-2022 20:00-0500 Mean blood pressure 74 mm[Hg] Rj Pink [facility] 07-08-2022 20:00-0500 SaO2% (BldA) [Mass fraction] 99 % Rj Pink [facility] 07-08-2022 20:00-0500 Systolic blood pressure 105 mm[Hg] Rj Pink [facility] 07-08-2022 17:47-0500 Heart rate 121 /min Rj Pink appening [facility] 06-23-2022 18:00-0500 Body height 154.94 cm Asim Palma Other [employer] Other 06-23-2022 18:00-0500 Body mass index (BMI) [Ratio] 34.01 kg/m2 Asim Palma Other [employer] Other 06-23-2022 18:00-0500 Body temperature 97.8 [degF] Asim Palma Other [employer] Other 06-23-2022 18:00-0500 Body weight 81.65 kg Asim Palma Other [employer] Other 06-23-2022 18:00-0500 Respiratory rate 18 /min Asim Palma Other [employer] Other 06-23-2022 18:00-0500 SaO2% (BldA) [Mass fraction] 98 % Asim Palma Other [employer] Other 06-18-2022 18:30-0500 Body height 154.94 cm Belia Aguero Other [employer] Other 06-18-2022 18:30-0500 Body mass index (BMI) [Ratio] 34.01 kg/m2 Belia Aguero Other [employer] Other 06-18-2022 18:30-0500 Body temperature 98 [degF] Belia Aguero Other [employer] Other 06-18-2022 18:30-0500 Body weight 81.65 kg Belia Aguero Other [employer] Other 06-18-2022 18:30-0500 Respiratory rate 18 /min Belia Aguero Other [employer] Other 06-18-2022 18:30-0500 SaO2% (BldA) [Mass fraction] 98 % Belia Aguero Other [employer] Other 04-16-2022 18:15-0500 Body height 154.94 cm Belia Aguero Other [employer] Other 04-16-2022 18:15-0500 Body mass index (BMI) [Ratio] 34.01 kg/m2 Belia Aguero Other [employer] Other 04-16-2022 18:15-0500 Body temperature 98.1 [degF] Bleia Aguero Other [employer] Other 04-16-2022 18:15-0500 Body weight 81.65 kg Belia Aguero Other [employer] Other 04-16-2022 18:15-0500 Respiratory rate 18 /min Belia Aguero Other [employer] Other 04-16-2022 18:15-0500 SaO2% (BldA) [Mass fraction] 99 % Belia Aguero Other [employer] Other 03-21-2022 18:00-0400 Body height 154.94 cm Belia Vázquez Other [employer] Other 03-21-2022 18:00-0400 Body mass index (BMI) [Ratio] 34.01 kg/m2 Belia Vázquez Other [employer] Other 03-21-2022 18:00-0400 Body temperature 98.3 [degF] Belia Vázquez Other [employer] Other 03-21-2022 18:00-0400 Body weight 81.65 kg Belia Vázquez Other [employer] Other 03-21-2022 18:00-0400 Diastolic blood pressure 79 mm[Hg] Belia Vázquez Other [employer] Other 03-21-2022 18:00-0400 Respiratory rate 18 /min Belia Vázquez Other [employer] Other 03-21-2022 18:00-0400 SaO2% (BldA) [Mass fraction] 100 % Belia Vázuqez Other [employer] Other 03-21-2022 18:00-0400 Systolic blood pressure 123 mm[Hg] Belia Vázquez Other [employer] Other 07-20-2021 13:15-0500 Body height 154.94 cm Asim Palma Other [employer] Other 07-20-2021 13:15-0500 Body mass index (BMI) [Ratio] 34.01 kg/m2 Asim Palma Other [employer] Other 07-20-2021 13:15-0500 Body temperature 98.4 [degF] Asim Palma Other [employer] Other 07-20-2021 13:15-0500 Body weight 81.65 kg Asim Palma Other [employer] Other 07-20-2021 13:15-0500 Diastolic blood pressure 66 mm[Hg] Asim Palma Other [employer] Other 07-20-2021 13:15-0500 Respiratory rate 18 /min Asim Palma Other [employer] Other 07-20-2021 13:15-0500 SaO2% (BldA) [Mass fraction] 97 % Asim Palma Other [employer] Other 07-20-2021 13:15-0500 Systolic blood pressure 102 mm[Hg] Asim Minerva Other [employer] Other 12-07-2020 19:25-0400 Body height 157.5 cm Simone Manley MD Work Phone: [employer] Work Phone: 12-07-2020 19:25-0400 Body mass index (BMI) [Ratio] 39.51 kg/m2 Simone Manley MD Work Phone: [employer] Work Phone: 12-07-2020 19:25-0400 Body temperature 98.91 [degF] Simone Manley MD Work Phone: [employer] Work Phone: 12-07-2020 19:25-0400 Body weight 97.98 kg Simone Manley MD Work Phone: [employer] Work Phone: 12-07-2020 19:25-0400 Diastolic blood pressure 81 mm[Hg] Simone Manley MD Work Phone: [employer] Work Phone: 12-07-2020 19:25-0400 Heart rate 71 /min Simone Manley MD Work Phone: [employer] Work Phone: 12-07-2020 19:25-0400 Respiratory rate 22 /min Simone Manley MD Work Phone: [facility] Work Phone: 12-07-2020 19:25-0400 SaO2% (BldA) [Mass fraction] 99 % Simone Manley MD Work Phone: [employer] Work Phone: 12-07-2020 19:25-0400 Systolic blood pressure 128 mm[Hg] Simone Manley MD Work Phone: [employer] Work Phone: Encounters Encounter Date Encounter Type Care Provider Facility Start: 06-27-2024 End: 06-27-2024 Clinisync Result Encounter Generic External Data Provider [facility] External Department Unsolicited Start: 06-27-2024 End: 06-27-2024 Clinisync Result Encounter Generic External Data Provider [facility] External Department Unsolicited Start: 06-16-2024 End: 06-17-2024 Emergency department patient visit Chichi Roy Facility:[facility] [place] Start: 06-14-2024 ambulatory DONOVAN VIELKA Not Availa ble Start: 06-09-2024 End: 06-09-2024 Bamboo flowsheet Donovan Vielka DO Work Phone: [facility] Start: 06-09-2024 End: 06-09-2024 Bamboo flowsheet Donovan Vielka DO Work Phone: [facility] Start: 06-09-2024 End: 06-09-2024 flow sheet Donovan Vielka DO Work Phone: [facility] Comment on above: Second trimester pre gnancy; 21 weeks gestation of ; Diabetes mellitus screening; Encounter for follow-up ultrasound of anatomy Start: 06-09-2024 End: 06-09-2024 ambulatory DONOVAN VIELKA Not Available Start: 05-31-2024 End: 05-31-2024 ambulatory DONOVAN VIELKA Not Available Start: 05-10-2024 End: 05-10-2024 Bamboo flowsheet America GHOTRA Work Phone: [facility] Start: 05-10-2024 End: 05-11-2024 Bamboo flowsheet America GHOTRA Work Phone: [facility] Start: 05-10-2024 End: 05-11-2024 External Result Encounter America GHOTRA Work Phone: [facility] External Department Unsolicited Start: 05-10-2024 End: 05-10-2024 ambulatory AMERICA THOMPSON Not Available Start: 05-10-2024 End: 05-10-2024 flow sheet America GHOTRA Work Phone: [facility] Comment on above: Exposure to STD; Second trimester ; 17 weeks gestation of ; Need for maternal serum alpha-protein (MSAFP) screening; Screening, , for anatomic survey Start: 04-25-2024 End: 04-25-2024 Office outpatient visit 25 minutes Peng Olivares SERVICE TESTER Work Phone: [facility] Comment on above: Strep throat (Primar y Dx); Pharyngitis, unspecified etiology; 15 weeks gestation of Start: 04-25-2024 End: 04-25-2024 ambulatory PENG OLIVARES Not Available Start: 04-11-2024 End: 04-11-2024 Bamboo flowsheet Donovan Vielka DO Work Phone: [facility] Start: 04-11-2024 End: 04-11-2024 Bamboo flowsheet Donovan Vielka DO Work Phone: [facility] Start: 04-11-2024 End: 04-11-2024 flow sheet Donovan Vielka DO Work Phone: [facility] Comment on above: 13 weeks gestation o f ; Second trimester Start: 04-11-2024 End: 04-11-2024 ambulatory DONOVAN VIELKA Not Available Start: 04-04-2024 End: 04-04-2024 Clinisync Result Encounter Generic External Data Provider [facility] External Department Unsolicited Start: 04-04-2024 End: 04-04-2024 Clinisync Result Encounter Generic External Data Provider [facility] External Department Unsolicited Start: 03-28-2024 End: 03-28-2024 ambulatory PENG OLIVARES Not Available Start: 03-28-2024 End: 03-28-2024 Telephone encounter Peng Olivares SERVICE TESTER Work Phone: [facility] Start: 03-24-2024 End: 03-24-2024 Emergency department patient visit Chichi Roy [facility] Start: 03-15-2024 End: 03-15-2024 ambulatory DONOVAN VIELKA Not Available Start: 03-10-2024 End: 03-10-2024 Office outpatient visit 5 minutes [facility] Vielka Nurse [facility] Comment on above: GA: 8w5d Start: 03-10-2024 End: 03-10-2024 ambulatory DONOVAN VORA Not Available Start: 02-11-2024 End: 02-17-2024 Orders Only Peng John Olivares SERVICE TESTER Work Phone: [facility] External Department Unsolicited Start: 02-11-2024 End: 02-11-2024 Telephone encounter Peng John Olivares SERVICE TESTER Work Phone: [facility] Start: 02-04-2024 End: 02-04-2024 ambulatory LOAN FUNDER Georgie Fareed Work Phone: [facility] Work Phone: Start: 02-04-2024 End: 02-04-2024 Patient encounter procedure LOAN FUNDER Georgie Fareed Work Phone: [facility] Work Phone: Start: 01-15-2024 End: 01-15-2024 Emergency department patient visit Roman SJefferson Syed [facility] Start: 01-11-2024 End: 01-14-2024 Orders Only Matti Sims DO Work Phone: [facility] External Department Unsolicited Start: 01-11-2024 End: 01-11-2024 ambulatory MATTI SIMS Not Available Start: 01-03-2024 End: 01-03-2024 Emergency department patient visit JELLY CHERY [facility] Start: 11-24-2023 End: 11-24-2023 ambulatory MD Jelly Chery Work Phone: [facility] Work Phone: Start: 11-24-2023 End: 11-24-2023 Patient encounter procedure MD Jelly Chery Work Phone: [facility] [place] [facility] Work Phone: Start: 11-18-2023 End: 11-18-2023 Departed Referred MD Jelly Chery Work Phone: [facility] [place] Work Phone: Start: 11-18-2023 End: 11-18-2023 ambulatory MD Jelly Chery Work Phone: [facility] Work Phone: Start: 11-18-2023 End: 11-18-2023 Patient encounter procedure MD Jelly Chery Work Phone: [facility] Work Phone: Start: 10-30-2023 End: 10-30-2023 ambulatory MD Jelly Chery Work Phone: [facility] Work Phone: Start: 10-30-2023 End: 10-30-2023 Patient encounter procedure MD Jelly Chery Work Phone: [facility] Work Phone: Start: 10-20-2023 End: 10-20-2023 ambulatory JELLY CHERY Not Available Start: 10-13-2023 End: 10-13-2023 ambulatory MD Jelly Chery Work Phone: [facility] Work Phone: Start: 10-13-2023 End: 10-13-2023 Patient encounter procedure MD Jelly Chery Work Phone: [facility] [place] [facility] Work Phone: Start: 10-01-2023 End: 10-01-2023 ambulatory PENG OLIVARES Not Available Start: 09-29-2023 End: 09-29-2023 ambulatory MD Jelly Chery Work Phone: [facility] Work Phone: Start: 09-29-2023 End: 09-29-2023 Patient encounter procedure MD Jelly Chery Work Phone: [facility] [place] Work Phone: Start: 09-07-2023 End: 09-07-2023 ambulatory MD Jelly Chery Work Phone: [facility] Work Phone: Start: 09-07-2023 End: 09-07-2023 Patient encounter procedure MD Jelly Chery Work Phone: [facility] Work Phone: Start: 07-27-2023 End: 07-27-2023 ambulatory Simone Bahena Facility:[facility] Start: 07-27-2023 End: 07-27-2023 Patient encounter procedure MD Jelly Chery Work Phone: [facility] Work Phone: Start: 07-22-2023 End: 07-22-2023 ambulatory SARAH PELLETIER Not Available Start: 07-13-2023 End: 07-13-2023 ambulatory JELLY CHERY Not Available Start: 07-05-2023 End: 07-05-2023 Office outpatient visit 25 minutes Rad Sims DO Work Phone: [facility] Comment on above: Recurrent acute supp urative otitis media without spontaneous rupture of tympanic membrane of both sides (Primary Dx); Pharyngitis, unspecified etiology Start: 07-05-2023 End: 07-05-2023 ambulatory RAD SIMS Not Available Start: 06-29-2023 End: 06-30-2023 ambulatory MIGUEL ANG Facility:[facility] Start: 06-29-2023 End: 06-29-2023 Subsequent hospital visit by physician Xr [facility] Comment on above: Right hand pain [M79 .641] Start: 06-29-2023 End: 06-29-2023 Patient encounter procedure Miguel Ang PA-C Work Phone: Plastic Surgery Comment on above: Right hand pain (Jazzmine rena Dx) Start: 06-18-2023 End: 06-18-2023 ambulatory JASON PIEDRA Not Available Start: 04-03-2023 End: 04-03-2023 Patient encounter procedure MD Jelly Chery Work Phone: [facility] Start: 04-03-2023 End: 04-03-2023 ambulatory MD Jelly Chery Work Phone: [facility] Work Phone: Start: 02-24-2023 End: 02-25-2023 ambulatory MARISA SMALLWOOD [facility] Start: 02-17-2023 ambulatory JAISON PETIT [facility] Start: 01-11-2023 End: 01-11-2023 Emergency department patient visit MD Jelly Chery Work Phone: [facility] Work Phone: Start: 10-17-2022 End: 10-17-2022 ambulatory Nasreen Delaney Other [employer] Other Start: 10-17-2022 Office outpatient vi sit 15 minutes Nasreen Delaney [facility] Start: 07-19-2022 End: 07-20-2022 Emergency department patient visit Roman Syed [facility] Start: 07-08-2022 End: 07-08-2022 Emergency department patient visit Rj Pink [facility] Start: 06-23-2022 End: 06-23-2022 ambulatory Asim Palma Other [employer] Other Start: 06-23-2022 Office outpatient vi sit 15 minutes Asim Palma [facility] Start: 06-18-2022 End: 06-18-2022 ambulatory Belia Aguero Other [employer] Other Start: 06-18-2022 Office outpatient vi sit 15 minutes Belia Aguero [facility] Start: 05-23-2022 End: 05-23-2022 ambulatory Asim Palma Other [employer] Other Start: 05-23-2022 Telephone encounter Asim Palma [facility] Start: 04-16-2022 End: 04-16-2022 ambulatory Belia Aguero Other [employer] Other Start: 04-16-2022 Office outpatient vi sit 15 minutes Belia Aguero [facility] Start: 03-21-2022 End: 03-22-[address] HAWA WHELAN [facility] [employer] Other Start: 03-21-2022 Office outpatient vi sit 15 minutes Belia Vázquez [facility] Start: 11-17-2021 End: 11-17-[address] JULY QUEVEDO Facility:[facility] Start: 07-20-2021 End: 07-20-2021 ambulatory Asim Palma Other [employer] Other Start: 07-20-2021 Office outpatient vi sit 25 minutes Asim Minerva [facility] Start: 03-29-2021 End: 03-30-2021 ambulatory CONCHITA MEANS Facility:[facility] Start: 12-07-2020 End: 12-08-2020 Emergency department patient visit SIMONE MANLEY [facility] Start: 12-07-2020 End: 12-08-2020 Emergency department patient visit Simone Manley MD Work Phone: [facility] Comment on above: Trigger point with b ack pain (Primary Dx); Hepatic steatosis Procedures Date Procedure Procedure Detail Performing Clinician Start: 06-27-2024 ALL CBC WITH AUTO DIFF Donovan Vielka DO Work Phone: Start: 06-09-2024 Urnls dip stick/tablet rgnt non-auto w/o micrscp Donovan Vielka DO Work Phone: Start: 05-10-2024 RECURRENT VAGINITIS (HTRX) America GHOTRA Work Phone: Start: 05-10-2024 Urnls dip stick/tablet rgnt non-auto w/o micrscp America GHOTRA Work Phone: Start: 04-25-2024 Iadna streptococcus group a amplified probe tq Darell Jama DO Work Phone: Start: 04-11-2024 Urnls dip stick/tablet rgnt non-auto w/o micrscp Donovan Vielka DO Work Phone: Start: 04-04-2024 Antibody screen Generic Provider Start: 04-04-2024 ALL CBC WITH AUTO DIFF Donovan Vielka DO Work Phone: Start: 04-04-2024 ALL RUBELLA IGG AB Donovan Vielka DO Work Phone: Start: 04-04-2024 ALL TYPE AND SCREEN Donovan Vielka DO Work Phone: Start: 04-04-2024 HBSAG SCREEN Donovan Vielka DO Work Phone: Start: 04-04-2024 HCV ANTIBODY RFX TO QUANT PCR Donovan Vielka DO Work Phone: Start: 04-04-2024 HIV AB/P24 AG WITH REFLEX Donovan Vielka DO Work Phone: Start: 04-04-2024 MLR HEMOGLOBIN A1C Donovan Vielka DO Work Phone: Start: 04-04-2024 RAPID PLASMA REAGIN, QUANT Donovan Vielka DO Work Phone: Start: 04-04-2024 Bacteria identified in Urine by Culture Generic External Data Provider Start: 04-04-2024 [facility] DRUG SCREEN RAPID (URINE) Donovan Vielka DO Work Phone: Start: 03-10-2024 Urnls dip stick/tablet rgnt non-auto w/o micrscp Donovan Vielka DO Work Phone: Start: 02-11-2024 Gonadotropin chorionic quantitative Peng Olivares SERVICE [employer] Work Phone: Start: 01-11-2024 Cytp cerv/vag auto thin layer prep mnl screen Matti Sims DO Work Phone: Start: 11-18-2023 Urine culture MD Jelly Chery Work Phone: Start: 09-29-2023 Plain X-ray of right hand MD Jelly Chery Work Phone: Start: 07-05-2023 End: 07-05-2023 Infectious agent dna/rna influenza 1st 2 types Darell Tucker Evita DO Work Phone: Start: 06-29-2023 Radex hand minimum 3 views Brianda Cartwright MD Work Phone: Start: 01-07-2023 End: 04-14-2023 History of tonsillectomy History of tonsillectomy Rad gorman DO Work Phone: Start: 07-07-2022 Tonsillectomy Roman Yahaira Start: 12-07-2020 Ct abdomen & pelvis w/o contrast material Mo'Mariana Carson Barr MD Work Phone: Start: 12-07-2020 Urinalysis microscopic only Mo'Mariana Carson Barr MD Work Phone: Start: 12-07-2020 Urnls dip stick/tablet rgnt auto w/o microscopy Mo'Mariana Carson Barr MD Work Phone: Start: 12-07-2020 Basic metabolic panel calcium total Mo'Men Carson Barr MD Work Phone: None (qualifier value) Rj Pink Plan of Treatment Date Care Activity Detail Author Start: 11-10-2029 DTaP/Tdap/Td vaccine (9 - Td or Tdap) DTaP/Tdap/Td vaccine (9 - Td or Tdap) [employer] Work Phone: Start: 11-10-2029 Urine microalbumin profile DTaP,Tdap,Td Vaccine (9 - Td or Tdap) [facility] Start: 01-11-2025 End: 01-11-2025 Patient encounter procedure 01/11/2025 10:45 AM EDT Office Visit [facility] [address] [place] [phone] Matti Sims, DO [address] [place] [address] [facility] Start: 10-18-2024 End: 10-18-2024 Patient encounter procedure 10/18/2024 8:15 AM EDT Office Visit [facility] [address] [place] [id number] Jelly Chery MD [address] [place] [address] [facility] Start: 07-07-2024 End: 07-07-2024 Patient encounter procedure 07/07/2024 9:10 AM EST Routine [facility] [address] [place] [id number] Donovan Vora, DO [address] [place] [address] [facility] Start: 06-09-2024 End: 06-09-2025 CBC panel - Blood by Automated count CBC Lab Routine Diabetes mellitus screening Expected: 06/09/2024 (Approximate), Expires: 06/09/2025 [facility] Work Phone: Comment on above: Expected: 06/09/2024 (Approximate), Expires: 06/09/2025 Start: 06-09-2024 End: 06-09-2025 Measurement of glucose 1 hour after glucose challenge for glucose tolerance test Glucose tolerance, 1 hour Lab Routine Diabetes mellitus screening Expected: 06/09/2024 (Approximate), Expires: 06/09/2025 [facility] Comment on above: Expected: 06/09/2024 (Approximate), Expires: 06/09/2025 Start: 06-09-2024 End: 06-09-2024 Patient encounter procedure [facility] Comment on above: Arrived Start: 05-31-2024 End: 05-31-2024 Professional / ancillary services management 05/31/2024 10:00 AM EST Ancillary Procedure [facility] [address] [place] [phone] [facility] Start: 05-10-2024 End: 06-10-2024 Alpha fetoprotein, maternal Alpha fetoprotein, maternal Lab Routine Need for maternal serum alpha-protein (MSAFP) screening Expected: 05/10/2024 (Approximate), Expires: 06/10/2024 [facility] Comment on above: Expected: 05/10/2024 (Approximate), Expires: 06/10/2024 Start: 05-10-2024 End: 05-10-2025 US for US OB ANATOMY SINGLE W US OB CERVICAL LENGTH Imaging Routine Screening, , for anatomic survey Expected: 05/10/2024 (Approximate), Expires: 05/10/2025 [facility] Comment on above: Expected: 05/10/2024 (Approximate), Expires: 05/10/2025 Start: 05-10-2024 End: 05-10-2024 Patient encounter procedure 05/10/2024 9:40 AM EST Routine [facility] [address] [phone] America Thompson PA [address] [place] [address] [facility] Start: 04-11-2024 End: 04-11-2024 Patient encounter procedure 04/11/2024 9:50 AM EST Routine [facility] [address] [phone] Donovan Vora DO [address] [place] [address] [facility] Start: 03-28-2024 End: 03-28-2025 XR Radius and Ulna - right 2 Views XR forearm 2 views right Imaging STAT Injury of right wrist, initial encounter Right forearm pain Expected: 03/28/2024, Expires: 03/28/2025 [facility] Comment on above: Expected: 03/28/2024 , Expires: 03/28/2025 Start: 03-28-2024 End: 03-28-2025 XR Wrist - right 3 Views XR wrist 3+ views right Imaging STAT Injury of right wrist, initial encounter Right wrist pain Expected: 03/28/2024, Expires: 03/28/2025 [facility] Work Phone: Comment on above: Expected: 03/28/2024 , Expires: 03/28/2025 Start: 03-10-2024 End: 03-10-2025 ABO/Rh ABO/Rh Lab Routine Missed menses , unspecified gestational age Expected: 03/10/2024 (Approximate), Expires: 03/10/2025 [facility] Comment on above: Expected: 03/10/2024 (Approximate), Expires: 03/10/2025 Start: 03-10-2024 End: 03-10-2025 Blood type and Indirect antibody screen panel - Blood Type and screen Lab Routine Missed menses , unspecified gestational age Expected: 03/10/2024 (Approximate), Expires: 03/10/2025 [facility] Work Phone: Comment on above: Expected: 03/10/2024 (Approximate), Expires: 03/10/2025 Start: 03-10-2024 End: 03-10-2025 Drugs of abuse panel - Urine by Screen method Rapid drug screen, urine Lab Routine , unspecified gestational age Encounter for supervision of normal first in first trimester Expected: 03/10/2024 (Approximate), Expires: 03/10/2025 [facility] Comment on above: Expected: 03/10/2024 (Approximate), Expires: 03/10/2025 Start: 03-10-2024 End: 03-10-2025 US Pelvis transvaginal US OB transvaginal Imaging Routine Missed menses Expected: 03/10/2024 (Approximate), Expires: 03/10/2025 [facility] Comment on above: Expected: 03/10/2024 (Approximate), Expires: 03/10/2025 Start: 03-10-2024 End: 03-10-2024 ambulatory 03/10/2024 1:00 PM EDT Initial [facility] [address] [address] [facility] Start: 03-10-2024 End: 03-10-2024 Professional / ancillary services management 03/10/2024 12:30 PM EDT Ancillary Procedure [facility] [address] [address] [facility] Start: 02-11-2024 End: 02-10-2025 HCG,QUALITATIVE RFX TO QUANT ([facility]) HCG,QUALITATIVE RFX TO QUANT ([facility]) Lab Routine Positive urine test Expected: 02/11/2024 (Approximate), Expires: 02/10/2025 [facility] Work Phone: Comment on above: Expected: 02/11/2024 (Approximate), Expires: 02/10/2025 Start: 01-24-2024 Influenza vaccination Influenza Vacc ine (#1) [facility] Start: 01-11-2024 End: 01-11-2024 Patient encounter procedure 01/11/2024 11:00 AM EDT Office Visit [facility] [address] [place] [phone] Matti Sims DO [address] [place] [address] [facility] Start: 11-18-2023 Bacteria identified in Urine by Culture [facility] Start: 11-18-2023 [facility] Start: 10-20-2023 End: 10-20-2023 Patient encounter procedure 10/20/2023 8:15 AM EDT Office Visit [facility] [address] [place] [phone] Jelly Chery MD [address] [place] [address] [facility] Start: 05-07-2024 Plain X-ray of right hand XR hand RT min 3V* [facility] Start: 09-29-2023 XR Hand - right GE 3 Views [facility] Start: 05-25-2023 Depression Assessment Depression Ass essment [facility] Start: 01-23-2023 Covid-19 Vaccine ( season) Covid-19 Vaccine ( season) [facility] Start: 01-23-2023 Influenza vaccination Influenza Vacc ine (#1) [facility] Start: 01-23-2021 Influenza vaccination Flu vaccine (# 1) [facility] [employer] Phone: Start: 2018 Screening for malign ant neoplasm of cervix [facility] Start: 2015 Hepatitis C screening Hepatitis C [facility] Start: 2015 HIV screening HIV Screening [facility] Start: 2013 Screening for Chlamy pam trachomatis Chlamydia screen [employer] Phone: Start: 02-19-2012 [facility] Work Phone: Start: 2011 Peds To Adult Transition Annual Assessment Peds To Adult Transition Annual Assessment [facility] Start: 2009 Peds To Adult Transition Initial Discussion Peds To Adult Transition Initial Discussion [facility] Start: 2003 Pneumococcal vaccination Pneumococcal Vaccine (1 of 2 - PCV) [facility] Start: 1998 Varicella vaccine (1 of 2 - 2-dose childhood series) Varicella vaccine (1 of 2 - 2-dose childhood series) [employer] Phone: Start: 1997 Hepatitis C screening Hepatitis C [facility] Phone: Atopobium vaginae DN A [Presence] in Vaginal fluid by CRYSTAL with probe detection [facility] Bacteria identified in Urine by Culture Urine culture Microbiology Routine Missed menses Ordered: 03/10/2024 [facility] Comment on above: Ordered: 03/10/2024 Bacterial vaginosis associated bacterium 2 DNA [Presence] in Vaginal fluid by CRYSTAL with probe detection [facility] CBC W Auto Different ial panel - Blood CBC and differential Lab Routine Missed menses , unspecified gestational age Ordered: 03/10/2024 [facility] Comment on above: Ordered: 03/10/2024 CHLAMYDIA TRACHOMATI S (GENITO/STI) CHLAMYDIA TRACHOMATIS (GENITO/STI) Lab Routine Exposure to STD Ordered: 05/10/2024 [facility] Comment on above: Ordered: 05/10/2024 Hemoglobin A1c/Hemoglobin.total in Blood Hemoglobin A1c Lab Routine Missed menses , unspecified gestational age Ordered: 03/10/2024 [facility] Comment on above: Ordered: 03/10/2024 Hepatitis B virus surface Ag [Presence] in Serum or Plasma by Immunoassay Hepatitis B surface antigen Lab Routine Missed menses , unspecified gestational age Ordered: 03/10/2024 [facility] Comment on above: Ordered: 03/10/2024 Hepatitis C virus Ab [Presence] in Serum or Plasma by Immunoassay Hepatitis C antibody Lab Routine Missed menses , unspecified gestational age Ordered: 03/10/2024 [facility] Comment on above: Ordered: 03/10/2024 HIV-1/HIV-2 antigen/antibody combination immunoassay HIV-1 and HIV-2 antibodies Lab Routine Missed menses , unspecified gestational age Ordered: 03/10/2024 [facility] Comment on above: Ordered: 03/10/2024 Megasphaera sp type 1 DNA [Presence] in Vaginal fluid by CRYSTAL with probe detection [facility] Neisseria gonorrhoea e DNA [Presence] in Unspecified specimen by CRYSTAL with probe detection Neisseria gonorrhea DNA probe, direct Lab Routine Exposure to STD Ordered: 05/10/2024 [facility] Comment on above: Ordered: 05/10/2024 Patient Education Outer Ear Infection ED [facility] Work Phone: Patient referral [facility] Work Phone: Reagin Ab [Presence] in Serum by RPR RPR Lab Routine Missed menses , unspecified gestational age Ordered: 03/10/2024 [facility] Comment on above: Ordered: 03/10/2024 Rubella antibody, IgG Rubella an tibody, IgG Lab Routine Missed menses , unspecified gestational age Ordered: 03/10/2024 [facility] Comment on above: Ordered: 03/10/2024 SURESWAB(R) ADVANCED VAGINITIS PLUS, TMA SURESWAB(R) ADVANCED VAGINITIS PLUS, TMA Pathology and Cytology Routine Exposure to STD Ordered: 05/10/2024 [facility] Work Phone: Comment on above: Ordered: 05/10/2024 End: 06-29-2024 XR HAND GENERAL 3V PA/LAT/OBL RIGHT XR HAND GENERAL 3V PA/LAT/OBL RIGHT Radiology Routine Right hand pain Once per week for 10 Occurrences starting 06/29/2023 until 06/29/2024, 1 completed [facility] Work Phone: Comment on above: Once per week for 10 Occurrences starting 06/29/2023 until 06/29/2024, 1 completed Immunizations Immunization Date Immunization Notes Care Provider Reynaldo [facility] 03-15-2024 Influenza, injectabl e, Madin Anali Canine Kidney, preservative free, quadrivalent Generic Provider [facility] 02-24-2022 Influenza, injectabl e, Madin Anali Canine Kidney, preservative free, quadrivalent Rad Sims DO Work Phone: [facility] 02-24-2022 influenza virus vacc ine, unspecified formulation Xr A21 [facility] 02-22-2021 influenza, injectabl e, quadrivalent, contains preservative Rad Sims DO Work Phone: [facility] 09-04-2020 COVID-19 mRNA Comrock ortega (Pfizer) MD Jelly Chery Work Phone: [facility] 08-14-2020 COVID-19 mRNA Comrock ortega (Pfizer) MD Jelly Chery Work Phone: [facility] 11-11-2019 tetanus toxoid, redu maryanne diphtheria toxoid, and acellular pertussis vaccine, adsorbed MD Jelly Chery Work Phone: [facility] 05-12-2017 tetanus toxoid, redu maryanne diphtheria toxoid, and acellular pertussis vaccine, adsorbed Rj Pink [facility] 12-19-2016 hepatitis A vaccine, adult dosage Rad Sims DO Work Phone: [facility] 12-19-2016 Human Papillomavirus 9-valent vaccine Rad Sims DO Work Phone: [facility] 12-19-2016 meningococcal B vacc ine, recombinant, OMV, adjuvanted Rad Sims DO Work Phone: [facility] 08-22-2016 Human Papillomavirus 9-valent vaccine Rad Sims DO Work Phone: [facility] 08-22-2016 meningococcal B vacc ine, recombinant, OMV, adjuvanted Rad Sims DO Work Phone: [facility] 08-22-2016 meningococcal polysaccharide (groups A, C, Y and W-135) diphtheria toxoid conjugate vaccine (MCV4P) Rad Lintoner DO Work Phone: [facility] 06-19-2016 hepatitis A vaccine, adult dosage Rad Sims DO Work Phone: [facility] 06-19-2016 Human Papillomavirus 9-valent vaccine Rad Lintoner DO Work Phone: [facility] 12-13-2012 meningococcal polysaccharide (groups A, C, Y and W-135) diphtheria toxoid conjugate vaccine (MCV4P) Rad Lintoner DO Work Phone: [facility] 12-13-2012 tetanus toxoid, redu maryanne diphtheria toxoid, and acellular pertussis vaccine, adsorbed Rad Lintoner DO Work Phone: [facility] 04-11-2009 novel influenza-H1N1 -09, preservative-free, injectable Rad Sims DO Work Phone: [facility] 02-15-2002 diphtheria, tetanus toxoids and acellular pertussis vaccine, unspecified formulation Rad Sims DO Work Phone: [facility] 02-15-2002 measles, mumps and rubella virus vaccine Rad Bethany DO Work Phone: [facility] 02-15-2002 poliovirus vaccine, inactivated Rad Sims DO Work Phone: [facility] 05-22-1998 diphtheria, tetanus toxoids and acellular pertussis vaccine, unspecified formulation Rad Sims DO Work Phone: [facility] 05-22-1998 haemophilus influenz ae type b vaccine, conjugate unspecified formulation Rad Sims DO Work Phone: [facility] 05-22-1998 trivalent poliovirus vaccine, live, oral Rad Sims DO Work Phone: [facility] 02-20-1998 measles, mumps and rubella virus vaccine Rad Sims DO Work Phone: [facility] 1997 diphtheria, tetanus toxoids and acellular pertussis vaccine, unspecified formulation Rad Sims DO Work Phone: [facility] 1997 haemophilus influenz ae type b vaccine, conjugate unspecified formulation Rad Sims DO Work Phone: [facility] 1997 hepatitis B vaccine, pediatric or pediatric/adolescent dosage Rad Sims DO Work Phone: [facility] 1997 diphtheria, tetanus toxoids and acellular pertussis vaccine, unspecified formulation Rad Sims DO Work Phone: [facility] 1997 haemophilus influenz ae type b vaccine, conjugate unspecified formulation Rad Sims DO Work Phone: [facility] 1997 poliovirus vaccine, inactivated Rad Sims DO Work Phone: [facility] 1997 diphtheria, tetanus toxoids and acellular pertussis vaccine, unspecified formulation Rad Sims DO Work Phone: [facility] 1997 haemophilus influenz ae type b vaccine, conjugate unspecified formulation Rad Sims DO Work Phone: [facility] 1997 poliovirus vaccine, inactivated Rad Sims DO Work Phone: [facility] 1997 hepatitis B vaccine, pediatric or pediatric/adolescent dosage Rad Sims DO Work Phone: [facility] 1997 hepatitis B vaccine, pediatric or pediatric/adolescent dosage Rad Sims DO Work Phone: [facility] Payers Date Payer Category Payer [facility] [id number] 2024 Unknown [id number] 2023 Medicaid [id number] 2.16.840.1.443267.19 2022 Private Health Insurance [id number] .[id number]. [id number] 2022 Unknown [id number]. 1.13.159.2. 7.3.402452.315 2022 Blue [employer] Blue Shield [id number] 2.16.840.1.251273.19 1997 Unknown [id number] 2.16.840.1.476743.3.579.2. 175 1997 Unknown [id number] 2.16.840.1.222118.3.579.2. 593 1997 Unknown [id number] 2.16.840.1.087848.3.579.2. 593 1997 Unknown [id number] 2.16.840.1.285964.3.579.2. 93 1997 Unknown [id number] 2.16.840.1.895407.3.579.2. 1259 1997 Unknown [id number] 2.16.840.1.819457.3.579.2. 1259 1997 Unknown [id number] 2.16.840.1.186812.3.579.2. 1259 1997 Unknown [id number] 2.16.840.1.674704.3.579.2. 1259 1997 Unknown [id number] 2.16.840.1.767957.3.579.2. 1258 1997 Unknown [id number] 2.16.840.1.204615.3.579.2. 1258 1997 Unknown [id number] 2.16.840.1.117700.3.579.2. 1258 1997 Unknown [id number] 2.16.840.1.280616.3.579.2. 1258 1997 Unknown [id number] 2.16.840.1.108812.3.579.2. 1258 1997 Unknown [id number] 2.16.840.1.184727.3.579.2. 1258 1997 Unknown [id number] 2.16.840.1.651761.3.579.2. 1258 1997 Unknown [id number] 2.16.840.1.190438.3.579.2. 1258 1997 Unknown [id number] 2.16.840.1.509185.3.579.2. 1258 1997 Unknown [id number] 2.16.840.1.306426.3.579.2. 1258 1997 Unknown [id number] 2.16.840.1.904732.3.579.2. 1258 1997 Unknown [id number] 2.16.840.1.178034.3.579.2. 1258 1997 Unknown [id number] 2.16.840.1.439291.3.579.2. 1258 1997 Unknown [id number] 2.16.840.1.213100.3.579.2. 1997 Unknown [id number] 2.16.840.1.922180.3.579.2. 1997 Unknown [id number] 2.16.840.1.912587.3.579.2. 727 1997 Unknown [id number] 2.16.840.1.675724.3.579.2. 727 1959 Self-pay 1959 Unknown [id number] 1.2.840.382590.1.13.239.2. 7.3.729577.315 Medicaid [place] [employer] [id number] Unknown [id number] 2.16.840.1.463795.3.579.2. 593 Unknown [facility] [id number] Unknown [id number] 2.16.840.1.795371.3.579.2. 531 Unknown [id number] 2.16.840.1.841402.3.579.2. 531 Unknown [id number] 2.16.840.1.150419.3.579.2. 531 Unknown [id number] 2.16.840.1.366895.3.579.2. 531 Unknown [id number] 2.16.840.1.726390.3.579.2. 531 Social History Date Type Detail Facility Start: 12-07-2020 End: 10-21-2022 Tobacco smoking status NHIS Never smoker [facility] Comment on above: Denies Start: 12-07-2020 Alcohol intake Ex-drinker (finding) [employer] Phone: Start: 1995 Sex Assigned At Not on file M [employer] Phone: Exposure to SARS-CoV -2 (event) Not sure [facility] Start: 06-29-2023 End: 01-11-2024 Sex Assigned At [facility] Tobacco [facility] Comment on above: Denies. Tobacco smoking status No Smokin g Status Entered [facility] Start: 1995 Sex Assigned At Female F [facility] Start: 06-29-2023 Tobacco smoking stat us IAIS Occasional tobacco smoker [facility] Start: 10-21-2022 End: 06-29-2023 Tobacco use and exposure Smokeless tobacco non-user [facility] Start: 06-29-2023 End: 01-11-2024 History of Social function [facility] Start: 06-29-2023 Tobacco Comment Vapes occasionally C [facility] Start: 07-05-2023 End: 04-25-2024 Alcohol intake Current drinker of alcohol (finding) [facility] How often to you hav e a drink containing alcohol? Monthly or less [facility] How many standard drinks containing alcohol do you have on a typical day? 1 or 2 [facility] How often do you hav e 6 or more drinks on 1 occasion? Never [facility] Start: 04-09-2023 Alcohol Comment Once in a whil e. caffeine; 2 to 3 cups of coffee per day [facility] Start: 07-27-2023 End: 03-24-2024 Tobacco smoking status IAIS Ex-smoker (finding) [facility] How many standard drinks containing alcohol do you have on a typical day? Patient does not drink [facility] Start: 01-11-2024 Alcohol Comment Once in a while [facility] Start[facility] 01-23-2024 [facility] Goals Date Patient Goal Desired Activity /State Personal health goal Functional Status Date Assessment Result Facility 03-24-2024 Functional Status N/A [facility] 01-15-2024 Functional Status N/A [facility] 07-19-2022 Functional Status N/A [facility] 07-08-2022 Functional Status N/A [facility] Clinical Notes 07-20-2021 to 06-17-2024 Viola Rhodes LPN - 06/09/2024 8:50 AM PARADISE Buitrago - 05/10/2024 9:40 AM Vidhya Olivares NP - 04/25/2024 9:00 AM Terra Rhodes LPN - 04/11/2024 9:50 AM EST Note Date & Type Note Facility 06-17-2024 Note ED Patient Education Note Gastroenterology Nausea and Vomiting, Adult Nausea is the feeling that you have an upset stomach or that you are about to vomit. As nausea gets worse, it can lead to vomiting. Vomiting is when stomach contents forcefully come out of your mouth as a result of nausea. Vomiting can make you feel weak and cause you to become dehydrated. Dehydration can make you feel tired and thirsty, cause you to have a dry mouth, and decrease how often you urinate. Older adults and people with other diseases or a weak disease-fighting system (immune system) are at higher risk for dehydration. It is important to treat your nausea and vomiting as told by your health care provider. Follow these instructions at home: Watch your symptoms for any changes. Tell your health care provider about them. Eating and drinking ??? Take an oral rehydration solution (ORS). This is a drink that is sold at pharmacies and retail stores. ??? Drink clear fluids slowly and in small amounts as you are able. Clear fluids include water, ice chips, low-calorie sports drinks, and fruit juice that has water added (diluted fruit juice). ??? Eat bland, erzy-vr-axytvi foods in small amounts as you are able. These foods include bananas, applesauce, rice, lean meats, toast, and crackers. ??? Avoid fluids that contain a lot of sugar or caffeine, such as energy drinks, sports drinks, and soda. ??? Avoid alcohol. ??? Avoid spicy or fatty foods. General instructions ??? Take knor-edm-ccpervd and prescription medicines only as told by your health care provider. ??? Drink enough fluid to keep your urine pale yellow. ??? Wash your hands often using soap and water for at least 20 seconds. If soap and water are not available, use hand claims consultant. ??? Make sure that everyone in your household washes their hands well and often. ??? Rest at home while you recover. ??? Watch your condition for any changes. ??? Take slow and deep breaths when you feel nauseous. ??? Keep all follow-up visits. This is important. Contact a health care provider if: ??? Your symptoms get worse. ??? You have new symptoms. ??? You have a fever. ??? You cannot drink fluids without vomiting. ??? Your nausea does not go away after 2 days. ??? You feel light-headed or dizzy. ??? You have a headache. ??? You have muscle cramps. ??? You have a rash. ??? You have pain while urinating. Get help right away if: ??? You have pain in your chest, neck, arm, or jaw. ??? You feel extremely weak or you faint. ??? You have persistent vomiting. ??? You have vomit that is bright red or looks like black coffee grounds. ??? You have bloody or black stools (feces) or stools that look like tar. ??? You have a severe headache, a stiff neck, or both. ??? You have severe pain, cramping, or bloating in your abdomen. ??? You have difficulty breathing, or you are breathing very quickly. ??? Your heart is beating very quickly. ??? Your skin feels cold and clammy. ??? You feel confused. ??? You have signs of dehydration, such as: ? Dark urine, very little urine, or no urine. ? Cracked lips. ? Dry mouth. ? Sunken eyes. ? Sleepiness. ? Weakness. These symptoms may be an emergency. Get help right away. Call 911. ??? Do not wait to see if the symptoms will go away. ??? Do not drive yourself to the hospital. Summary ??? Nausea is the feeling that you have an upset stomach or that you are about to vomit. As nausea gets worse, it can lead to vomiting. Vomiting can make you feel weak and cause you to become dehydrated. ??? Follow instructions from your health care provider about eating and drinking to prevent dehydration. ??? Take oqac-eft-stssfxl and prescription medicines only as told by your health care provider. ??? Contact your health care provider if your symptoms get worse, or you have new symptoms. ??? Keep all follow-up visits. This is important. This information is not intended to replace advice given to you by your health care provider. Make sure you discuss any questions you have with your health care provider. Document Revised: 11/15/2021 Document Reviewed: 11/15/2021 [employer] Patient Education ? 2023 [employer]. [facility] 06-09-2024 History of Presen t illness Narrative Reason for Appointment: Patient ID: Devorah Shelton is a 29 y.o. female who presents for Routine Visit Patient presents today for Return OB appointment. MEDICATIONS Current Outpatient Medications Medication Instructions MV-Min-Fe Fum-FA-DHA ( 1 PO) Take by mouth ALLERGIES Allergies Allergen Reactions Amoxicillin-Pot Clavulanate Diarrhea Clavulanic Acid GI intolerance Penicillin G Sodium Other Reaction(s): vomiting, diarrhea PROBLEMS Active Ambulatory Problems Diagnosis Date Noted Allergic [...] Ovarian cyst 2016 Plantar verruca Tinnitus, bilateral HISTORY PAST MEDICAL HISTORY SOCIAL HISTORY Past Medical History: Diagnosis Date Asthma (CMS/HCC) Moderate single current episode of major depressive disorder (HCC) (CMS/HCC) NAFLD (nonalcoholic fatty liver disease) Ovarian cyst 2016 Plantar verruca Tinnitus, bilateral Social History Tobacco Use Smoking status: Never Smokeless tobacco: Never Vaping Use Vaping status: Never Used Substance Use Topics Alcohol use: Yes Comment: Once in a while Drug use: Never FAMILY HISTORY Family History Problem Relation Name Age of [...] Heart disease Maternal Great-Grandmother Diabetes Maternal Great-Grandmother SURGICAL HISTORY Past Surgical History: Procedure Laterality Date ADENOIDECTOMY W/ MYRINGOTOMY AND TUBES 2006 TONSILLECTOMY 07/07/2022 REVIEW OF SYSTEMS Review of Systems: Review of Systems All other systems reviewed and are negative. OBJECTIVE Objective: Physical Exam Constitutional: Appearance: Normal appearance. She is well-developed. Cardiovascular: Rate and Rhythm: Normal rate and regular rhythm. Pulmonary: Effort: Pulmonary effort is normal. Breath sounds: Normal breath sounds. Abdominal: General: Bowel sounds are normal. There is no distension. Palpations: Abdomen is soft. Tenderness: There is no abdominal tenderness. There is no guarding or rebound. Musculoskeletal: General: No swelling. Normal range of motion. Right lower leg: No edema. Left lower leg: No edema. Neurological: Mental Status: She is alert and oriented to person, place, and time. Skin: General: Skin is warm and dry. Psychiatric: Mood and Affect: Mood normal. Behavior: Behavior normal. Vitals and nursing note reviewed. Exam conducted with a software reliability engineer present. Vitals: Estimated body mass index is 39.76 kg/m as calculated from the following: Height as of 01/11/24: 5' 2 . Weight as of this encounter: 217 lb 6.4 oz. BP: 112/72 Patient's last menstrual period was 01/09/2024. ASSESSMENT & PLAN ICD-10-CM 1. Second trimester Z34.92 2. 21 weeks gestation of Z3A.21 POCT urinalysis dipstick manually resulted 3. Diabetes mellitus screening Z13.1 CBC Glucose tolerance, 1 hour CBC Glucose tolerance, 1 hour 4. Encounter for follow-up ultrasound of anatomy Z36.2 US OB limited 1+ fetuses Patient presents today for a routine obstetrics appointment. Patient is currently 21w5d with a Estimated Date of Delivery: 10/15/24. Patient given order for repeat scan to be done to clear anatomy. Patient to return to clinic in 4 weeks for routine OB appointment. Patient also given order for 1hour gtt and CBC. Documented by Viola Rhodes LPN on behalf of: DO Dragan Maganaally signed by Viola Rhodes LPN at 06/22/2024 1:13 PM EST documented in this encounter [facility] 05-10-2024 History of Presen t illness Narrative Reason for Appointment: Patient ID: Devorah Shelton is a 29 y.o. female who presents for Routine Visit Patient presents today for Return OB appointment. MEDICATIONS Current Outpatient Medications Medication Instructions MV-Min-Fe Fum-FA-DHA ( 1 PO) Take by mouth ALLERGIES Allergies Allergen Reactions Amoxicillin-Pot Clavulanate Diarrhea Clavulanic Acid GI intolerance Penicillin G Sodium Other Reaction(s): vomiting, diarrhea PROBLEMS Active Ambulatory Problems Diagnosis Date Noted Allergic [...] Ovarian cyst 2016 Plantar verruca Tinnitus, bilateral HISTORY PAST MEDICAL HISTORY SOCIAL HISTORY Past Medical History: Diagnosis Date Asthma (CMS/HCC) Moderate single current episode of major depressive disorder (HCC) (CMS/HCC) NAFLD (nonalcoholic fatty liver disease) Ovarian cyst 2016 Plantar verruca Tinnitus, bilateral Social History Tobacco Use Smoking status: Never Smokeless tobacco: Never Vaping Use Vaping status: Never Used Substance Use Topics Alcohol use: Yes Comment: Once in a while Drug use: Never FAMILY HISTORY Family History Problem Relation Name Age of [...] Heart disease Maternal Great-Grandmother Diabetes Maternal Great-Grandmother SURGICAL HISTORY Past Surgical History: Procedure Laterality Date ADENOIDECTOMY W/ MYRINGOTOMY AND TUBES 2006 TONSILLECTOMY 07/07/2022 REVIEW OF SYSTEMS Review of Systems: Review of Systems Constitutional: Negative. HENT: Negative. Eyes: Negative. Respiratory: Negative. Cardiovascular: Negative. Gastrointestinal: Negative. Genitourinary: Negative. Musculoskeletal: Negative. Skin: Negative. Neurological: Negative. All other systems reviewed and are negative. Hematological: Negative. Endocrine: Negative. Allergic/Immunologic: Negative. OBJECTIVE Objective: Physical Exam Constitutional: Appearance: Normal appearance. She is normal weight. HENT: Head: Normocephalic. Cardiovascular: Rate and Rhythm: Normal rate. Pulses: Normal pulses. Pulmonary: Effort: Pulmonary effort is normal. Breath sounds: Normal breath sounds. Abdominal: Palpations: Abdomen is soft. Musculoskeletal: General: Normal range of motion. Neurological: General: No focal deficit present. Mental Status: She is alert and oriented to person, place, and time. Psychiatric: Mood and Affect: Mood normal. Behavior: Behavior normal. Thought Content: Thought content normal. Judgment: Judgment normal. Vitals and nursing note reviewed. Vitals: Estimated body mass index is 39.51 kg/m as calculated from the following: Height as of 01/11/24: 5' 2 . Weight as of this encounter: 216 lb. BP: 120/72 Patient's last menstrual period was 01/09/2024. ASSESSMENT & PLAN ICD-10-CM 1. Exposure to STD Z20.2 SURESWAB(R) ADVANCED VAGINITIS PLUS, TMA CHLAMYDIA TRACHOMATIS (GENITO/STI) Neisseria gonorrhea DNA probe, direct 2. Second trimester Z34.92 POCT urinalysis dipstick manually resulted 3. 17 weeks gestation of Z3A.17 4. Need for maternal serum alpha-protein (MSAFP) screening Z36.1 Alpha fetoprotein, maternal Alpha fetoprotein, maternal 5. Screening, , for anatomic survey Z36.89 US OB ANATOMY SINGLE W US OB CERVICAL LENGTH Return OB: Patient presents today for a routine obstetrics appointment. Patient is currently 17w3d . Patient states she is doing well but has complaints of being tired due to current . Patient has verbalizes frequent movement. labor precautions was discussed/given and patient was instructed to perform kick counts three times a day. Orders Placed This Encounter Procedures US OB ANATOMY SINGLE W US OB CERVICAL LENGTH CHLAMYDIA TRACHOMATIS (GENITO/STI) Neisseria gonorrhea DNA probe, direct Alpha fetoprotein, maternal POCT urinalysis dipstick manually resulted Follow Up: Patient is to return to office in 4week for routine OB appointment. Documented by PARADISE Griffiths on behalf of: PARADISE Griffiths documented in this encounter [facility] 04-25-2024 History of Presen t illness Narrative Images from the original note were not included. [address] , [address] [facility], [address] P: [phone] F: [phone] HPI Historian of HPI: patient Devorah Shelton is a 29 y.o. female who presents today to the Urgent Care with the following complaints and denials which have been present for 2 day(s). C/O Denies Symptom Comments [] [x] Runny Nose [] [x] Difficulty Swallowing [x] [] Sore Throat [] [x] Cough [x] [] Ear Pain Right ear [] [x] Fever [] [x] Chills [] [x] Nasal Congestion [] [x] Myalgia [] [x] Sinus Pain [] [x] Sinus Pressure Additional Comments: pt has not taken any OTC medications ROS A complete system ROS was performed and negative aside from the pertinent positives noted in the HPI and PE. Visit Vitals BP 118/74 Pulse 93 Temp 97.5 F Wt 215 lb LMP 01/09/2024 SpO2 98% BMI 39.32 kg/m OB Status Smoking Status Never BSA 2.07 m PHYSICAL EXAM Physical Exam Vitals reviewed. Constitutional: General: She is not in acute distress. Appearance: Normal appearance. HENT: Head: Normocephalic and atraumatic. Right Ear: Hearing, tympanic membrane, ear canal and external ear normal. Left Ear: Hearing, tympanic membrane, ear canal and external ear normal. Nose: Nose normal. Mouth/Throat: Lips: [employer]. Mouth: Mucous membranes are moist. Pharynx: Oropharynx is clear. Uvula midline. Posterior oropharyngeal erythema present. Tonsils: No tonsillar exudate or tonsillar abscesses. 2+ on the right. 2+ on the left. Eyes: Extraocular Movements: Extraocular movements intact. Conjunctiva/sclera: Conjunctivae normal. Pupils: Pupils are equal, round, and reactive to light. Cardiovascular: Rate and Rhythm: Normal rate and regular rhythm. Pulses: Normal pulses. Heart sounds: Normal heart sounds. Pulmonary: Effort: Pulmonary effort is normal. No respiratory distress. Breath sounds: Normal breath sounds. No wheezing, rhonchi or rales. Musculoskeletal: General: Normal range of motion. Cervical back: Normal range of motion and neck supple. Skin: General: Skin is warm and dry. Capillary Refill: Capillary refill takes less than 2 seconds. Findings: No rash. Neurological: General: No focal deficit present. Mental Status: She is alert and oriented to person, place, and time. Psychiatric: Mood and Affect: Mood normal. Behavior: Behavior normal. Thought Content: Thought content normal. Judgment: Judgment normal. TREATMENT PLAN 1. Pharyngitis, unspecified etiology Presents today for evaluation of sore throat x 3 days. New medication as directed. Acetaminophen or Ibuprofen for reduction of fever and pain. Increase fluids. Good handwashing. Discussed warning signs of worsening infection and when to report to ER. New toothbrush in 24 hours. Call office if symptoms have not started to improve within the next 72 hours. Patient verbalized understanding of instructions. - STREP DNA PROBE - amoxicillin (Amoxil) 500 MG capsule; Take 1 capsule (500 mg) by mouth in the morning and 1 capsule (500 mg) before bedtime. Do all this for 10 days. Dispense: 20 capsule; Refill: 0 2. Strep throat (Primary) Rapid strep positive. Patient is currently and reports she can take Amoxicillin, however, it does cause GI upset. Discussed with her being there are not other ATB that are safe to take for this diagnosis. She expressed an understanding and would like to take the Amoxicillin. New medication as directed. Acetaminophen or Ibuprofen for reduction of fever and pain. Increase fluids. Good handwashing. Discussed warning signs of worsening infection and when to report to ER. New toothbrush in 24 hours. No work or school for the next 24 hours. Call office if symptoms have not started to improve within the next 72 hours. Patient verbalized understanding of instructions. - amoxicillin (Amoxil) 500 MG capsule; Take 1 capsule (500 mg) by mouth in the morning and 1 capsule (500 mg) before bedtime. Do all this for 10 days. Dispense: 20 capsule; Refill: 0 3. 15 weeks gestation of Reviewed. documented in this encounter [facility] 04-11-2024 History of Presen t illness Narrative Reason for Appointment: Patient ID: Devorah Shelton is a 29 y.o. female who presents for Routine Visit Patient presents today for Return OB appointment. MEDICATIONS Current Outpatient Medications Medication Instructions MV-Min-Fe Fum-FA-DHA ( 1 PO) Take by mouth ALLERGIES Allergies Allergen Reactions Amoxicillin-Pot Clavulanate Diarrhea Clavulanic Acid GI intolerance Penicillin G Sodium Other Reaction(s): vomiting, diarrhea PROBLEMS Active Ambulatory Problems Diagnosis Date Noted Allergic [...] Ovarian cyst 2016 Plantar verruca Tinnitus, bilateral HISTORY PAST MEDICAL HISTORY SOCIAL HISTORY Past Medical History: Diagnosis Date Asthma (CMS/HCC) Moderate single current episode of major depressive disorder (HCC) (CMS/HCC) NAFLD (nonalcoholic fatty liver disease) Ovarian cyst 2016 Plantar verruca Tinnitus, bilateral Social History Tobacco Use Smoking status: Never Smokeless tobacco: Never Vaping Use Vaping status: Never Used Substance Use Topics Alcohol use: Yes Comment: Once in a while Drug use: Never FAMILY HISTORY Family History Problem Relation Name Age of [...] Heart disease Maternal Great-Grandmother Diabetes Maternal Great-Grandmother SURGICAL HISTORY Past Surgical History: Procedure Laterality Date ADENOIDECTOMY W/ MYRINGOTOMY AND TUBES 2006 TONSILLECTOMY 07/07/2022 REVIEW OF SYSTEMS Review of Systems: Review of Systems All other systems reviewed and are negative. OBJECTIVE Objective: Physical Exam Constitutional: Appearance: Normal appearance. She is well-developed. Cardiovascular: Rate and Rhythm: Normal rate and regular rhythm. Pulmonary: Effort: Pulmonary effort is normal. Breath sounds: Normal breath sounds. Abdominal: General: Bowel sounds are normal. There is no distension. Palpations: Abdomen is soft. Tenderness: There is no abdominal tenderness. There is no guarding or rebound. Musculoskeletal: General: No swelling. Normal range of motion. Right lower leg: No edema. Left lower leg: No edema. Neurological: Mental Status: She is alert and oriented to person, place, and time. Skin: General: Skin is warm and dry. Psychiatric: Mood and Affect: Mood normal. Behavior: Behavior normal. Vitals and nursing note reviewed. Exam conducted with a software reliability engineer present. Vitals: Estimated body mass index is 39.43 kg/m as calculated from the following: Height as of 01/11/24: 5' 2 . Weight as of this encounter: 215 lb 9.3 oz. BP: 124/70 Patient's last menstrual period was 01/09/2024. ASSESSMENT & PLAN ICD-10-CM 1. 13 weeks gestation of Z3A.13 POCT urinalysis dipstick manually resulted 2. Second trimester Z34.92 POCT urinalysis dipstick manually resulted New OB: Patient presents today for 1st time obstetrics appointment with provider. Patient is currently 13w2d . Patients history has been reviewed in great detail including any potential risks. Patient stated she currently has no complaints. Expectations throughout regarding labs, ultrasounds, and appointments have been discussed with the patient in detail. It was reiterated that the patient is to drink 6-8 glasses of water a day, eat 6 small meals a day, do not consume raw or undercooked meat, and stay away from [facility]. Patient has been consulted regarding any further do's and don'ts of . Patient voiced understanding and all questions and concerns were answered. Orders Placed This Encounter Procedures POCT urinalysis dipstick manually resulted Follow Up: Patient is to return in 4 weeks for routine OB appointment. Documented by Viola Rhodes LPN on behalf of: Donovan Vora DO documented in this encounter [facility] 03-28-2024 Telephone encounter Note Pt fell last week. She was at ER and they did an x ray of her wrist. They recommended repeat x rays if no improvement once swelling subsided. The pain is still present and tender to movement or palpation. Bruising observed to forearm as well. Pt requesting x ray of forearm and wrist to ensure no fracture. Ordered to [facility]. She as made aware. [facility] 03-28-2024 Miscellaneous Notes Pt fell last week. She was at ER and they did an x ray of her wrist. They recommended repeat x rays if no improvement once swelling subsided. The pain is still present and tender to movement or palpation. Bruising observed to forearm as well. Pt requesting x ray of forearm and wrist to ensure no fracture. Ordered to [facility]. Annie as made aware. documented in this encounter [facility] 03-25-2024 Hospital Discharg e instructions Patient [...] are safe for you. General instructions Take jfee-jhe-gpfoeaj and prescription medicines only as told by [...] provider. Document Revised: 09/17/2020 Document Reviewed: 09/17/2020 [employer] Patient Education 2023 [employer]. Follow Up Care 03/24/2024 18:46:04 With:JELLY CHERY Address: [address] [place], [place] [id number]- Business (1) When:03/27/2024 [facility] 03-24-2024 Note ED Patient Education Note Orthopedics [...] safe for you. General instructions ??? Take vggd-dlc-xamtteq and prescription medicines only as told by [...] swelling gets worse (more content not included)... [facility] 03-10-2024 History of Presen t illness [...] or undercooked meat, and stay away from [facility]. Patient has also been advised to not [...] by: Sarah Land documented in this encounter [facility] 02-11-2024 Telephone encounter Note Urine test +. Patient lab requested. [facility] 02-11-2024 Miscellaneous Notes Urine test +. Patient lab requested. documented in this encounter [facility] 01-16-2024 Hospital Discharg e instructions Patient [...] mouth or applied to the skin. Take uemb-ssb-ycbmgty and prescription medicines only as told by [...] provider. Document Revised: 09/13/2020 Document Reviewed: 08/22/2020 [employer] Patient Education 2022 [employer]. Follow Up Care 01/15/2024 21:25:10 With:JELLY CHERY Address: [address] [place], [place] [phone]- Business (1) When:01/18/2024 Comments:To schedule follow-up appointment with your family physician if symptoms not improve in the next 2 to 3 days. Alternate Tylenol, ibuprofen, and ice as needed for pain management. Return to the ED with any worsening symptoms [facility] 01-15-2024 Note ED Patient Education Note Orthopedics [...] mouth or applied to the skin. Take xkrj-cjf-ajhrybt and prescription medicines only as told by [...] provider. Document Revised: 09/13/2020 Document Reviewed: 08/22/2020 [employer] Patient Education ? 2022 [employer]. [facility] 01-15-2024 Evaluation + Plan note Extrac betty from: Title:ED Note Author:Jason Frost PA-C te:01/15/24 Hand pain, left (M79.642: Pa in in left hand) Orders: XR Hand 3+ Views Left [facility] 02-11-2024 History of Present illness Narrative* Rad Sims, - 07/05/2023 12:25 PM EST HPI: Historian [...] TEST(S) ORDERS FOR RESULTS documented [facility] [id number] NoteHNO ID: [id number] Author: CHRISTEN DIAS RT(R) Service: Radiology Author [...] PATIENT PRESENTS WITH AN IMPLANTABLE OR ATTACHED COMPLEX CARE NURSE: No RADIOLOGY DEPARTMENT: General X-ray: Exam(s) Completed: Upper Extremity X-Ray(s): Hand, right PERIPHERAL IV DATA: Not applicable SIGNED BY: Christen Geyer, RT(R) June 29, 2023 4:27 [facility]02-05-2024 NoteHNO ID: [id number] Author: MIGUEL ANG PA-C Service: ? Author Type: Physician Inspector Outside [employer] Type: Progress Notes Filed: 06/30/2023 08:33 Note Text: PLASTIC SURGERY DEPARTMENT [facility] Hand Surgery Note [] New referred by []self []physician.......... [] Follow-up CC: ..right hand pain............ ? HPI: Devorah is a 28 year old female who presnets after being bit by a dog in February 2023. Reports was bit at the [facility] and has never healed correctly. Patient also suffered infection of the right hand following a dog bite which she was treated with antibiotics. She reported that the infection started to move up the arm past the wrist. 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 Dominant Hand: [...] to calculate BSA. AXEL (more content not included)...[facility]02-05-2024 History of Present illness Narrative* Christen [...] PATIENT PRESENTS WITH AN IMPLANTABLE OR ATTACHED COMPLEX CARE NURSE: No RADIOLOGY DEPARTMENT: General X-ray: Exam(s) Completed: Upper Extremity X- Ray(s): Hand, right PERIPHERAL IV DATA: Not applicable SIGNED BY: RT Lb(R) June 29, 2023 4:27 PM [facility] History of Present illness Narrative* Miguel Ang PA-C - 06/29/2023 4:16 PM EST PLASTIC SURGERY DEPARTMENT [facility] Hand Surgery Note [] New referred by []self []physician.......... [] Follow-up CC: ..right hand pain............ ? HPI: Devorah is a 28 year old female who presnets after being bit by a dog in February 2023. Reportswas bit at the [facility] and has never healed correctly. Patient also suffered infection of the right hand following a dog bite which she was treated with antibiotics. She reported that the infection started to move up the arm past the wrist. 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 documented in [facility] NoteOrthopedic Surgery Subjective Follow-up of the Right [...] exhibit full active and passive ROM. Strength: stationary steam engineer 5/5, thumb 5/5, interossei 5/5 Sensation: intact [...] is planning on doing hand therapy in [place]. - WBAT and ROM of digits as [...] may be an additional personal documentation from me.[facility]09-26-2023 Note 27-year-old female wgzck-fgoe-gdwsdeiv who sustained a dog bite to her [...] of motion exercises with occupational therapy at [facility]. She will complete her antibiotic regime. We will have her follow-up with Dr. Smallwood next week. She will report immediately the emergency room should she develop any signs of infection.[facility]05-26-2023 Evaluation note* Encounter Date Diagnosis Assessment [...] physician if no improvement in 2-3 days [facility] Other 02-26-2023 Hospital Discharge instructions Patient Education [...] at all times when lying down. Take jekq-ddd-ejabiso and prescription medicines only as told by [...] 03/11/2005 Document Revised: 04/23/2018 Document Reviewed: 04/03/2017 [employer] Patient Education 2020 [employer] Follow Up Care 07/19/2022 21:36:50 With:PALMIRA RIGGS Address: [address] [place], [place] [address]alitha , [address] [address] Business (1) When:Within 3 Day(s) [facility]02-25-2023 Evaluation + Plan noteExtracted from: Title:ED Note Author:Roman Syed DO Date :07/19/22 [facility]02-15-2023 Hospital Discharge instructions Patient Education 07/08/2022 22:15:17 [...] 08/02/2012 Document Revised: 04/23/2018 Document Reviewed: 07/04/2016 [employer] Patient Education 2020 [employer]. 07/08/2022 22:15:17 Dysphagia Eating Plan, Pureed Dysphagia Eating Plan, Pureed This diet is helpful for people with moderate to severe swallowing problems. Pureed foods are smooth and are prepared without lumps so that they can be swallowed safely. Work with your health care provider and your diet and pet nutrition specialist (dietitian) to make sure that you [...] it. This can be done with a occupational therapist. ?Moistening it. This can be done by [...] best for you. Grains Soft breads, pancakes, Singaporean toast, muffins, and bread stuffing pureed to [...] foods Coarse or seeded herbs and spices. [place]als preserves. Jams with seeds. Whole sandwiches. Non-pureed casseroles. O'Neals soups. Summary Pureed foods can be helpful [...] 05/11/2006 Document Revised: 09/01/2019 Document Reviewed: 07/14/2017 [employer] Patient Education 2020 [employer]. 07/08/2022 22:15:17 Dysphagia Eating Plan, Minced and [...] health care provider and your diet and pet nutrition specialist (dietitian) to make surethat you are [...] Cooking You may need to use a occupational therapist, whisk, or masher to soften some of [...] or seeds. Pancakes, sweet rolls, pastries, and Singaporean toast that have been moistened with syrup [...] vegetables, such as celery, peas, broccoli, cabbage, [place] sprouts, and asparagus. Potato skins. Potato and other vegetable chips. Fried or Singaporean-fried potatoes. Cooked corn and peas. Fruits Hard, [...] 05/11/2006 Document Revised: 09/01/2019 Document Reviewed: 08/21/2017 [employer] Patient Education 2020 [employer]. 07/08/2022 22:15:17 Dehydration, Adult, Mihx-hm-Tbvk Dehydration, Adult Dehydration is when there is [...] a lot of fat or sugar. Take evzn-inu-zhudevy and prescription medicines only as told by [...] 03/07/2010 Document Revised: 04/23/2018 Document Reviewed: 07/04/2016 [employer] Patient Education 2020 [employer]. Follow Up Care 07/08/2022 17:43:05 With:PALMIRA RIGGS Address: [address] , [address] [place] [phone]- Business (1) When:07/11/2022 21:56:31 [facility]01-30-2023 Evaluation note* Encounter Date Diagnosis Assessment Notes [...] should improve within the next 4-7 days. [facility] Other 01-25-2023 Evaluation note* Encounter Date Diagnosis [...] covered if open and draining. Otherwise leave TERRY. May try to treat with piercing still [...] Pt understood and agreed to tx plan. [facility] Other 12-30-2022 Evaluation note* Encounter Date Diagnosis Assessment Notes Treatment Notes Treatment Clinical Notes Apr, Strep pharyngitis (ICD-10 - J02.0) [facility] Other 11-23-2022 Evaluation note* Encounter Date Diagnosis [...] Pt understood and agreed to treatment plan. [facility] Other 10-28-2022 Evaluation note* Encounter Date Diagnosis [...] Pt understood and agreed to treatment plan. [facility] Other 02-26-2022 Evaluation note* Encounter Date Diagnosis [...] days. Patient understands and agrees the plan. [facility] Other Evaluation + Plan note No data available for this section [facility] Diagnosis Trigger point with back pain- Primary Backache, unspecified Hepatic steatosis Other chronic nonalcoholic liver disease documented in this encounter [employer] Work Phone: evaluation noteNo assessment information available [facility] Work Phone: Evaluation note* Diagnosis Right hand pain Pain in limb [facility] Diagnosis Right hand pain- Primary Pain in limb [facility]* Diagnosis Recurrent acute suppurative otitis media without spontaneous rupture of tympanic membrane of both sides- Primary Pharyngitis, unspecified etiology [facility] Diagnosis Onset Date Resolution Status Dog bite of right hand with infection acute [facility] Work Phone: Evaluation note* Diagnosis Onset Date Resolution Status Dog bite of right hand with infection acute Abnormal MRI acute Dog bite of right hand with infection acute Injury of right hand acute [facility] Work Phone: Evaluation note* Diagnosis Onset Date Resolution Status Dog bite of right hand with infection acute Dog bite of right hand with infection acute Injury of right hand acute Dog bite of right hand acute [facility] Work Phone: Evaluation note* Diagnosis Onset Date Resolution Status Dog bite of right hand with infection acute Injury of right hand acute Dog bite of right hand acute Pain of right middle finger acute [facility] Work Phone: Evaluation note* Diagnosis Onset Date Resolution Status Dog bite of right hand with infection acute Injury of right hand acute Dog bite of right hand acute Pain of right middle finger acute Skin yeast infection acute [facility] Work Phone: Evaluation note* Diagnosis Onset Date Resolution Status Dog bite of right hand with infection acute Injury of right hand acute Dog bite of right hand acute Pain of right middle finger acute Skin yeast infection acute Dog bite of right hand acute Pain of right middle finger acute [facility] Work Phone: Evaluation note* Diagnosis Onset Date Resolution Status Dog bite of right hand acute Pain of right middle finger acute [facility] Work Phone: Evaluation note* Diagnosis Missed menses , unspecified gestational age Encounter for supervision of normal first in first trimester documented in this encounter [facility]* Diagnosis Injury of right wrist, initial encounter- Primary Right wrist pain Pain in joint, forearm Right forearm pain documented in this encounter [facility]* Diagnosis 13 weeks gestation of Second trimester state, incidental documented in this encounter [facility]* Diagnosis Strep throat- Primary Streptococcal sore throat Pharyngitis, unspecified etiology 15 weeks gestation of documented in this encounter [facility]* Diagnosis Exposure to STD Second trimester state, incidental 17 weeks gestation of Need for maternal serum alpha-protein (MSAFP) screening Screening, , for anatomic survey Encounter for anatomic survey documented in this encounter [facility]* Diagnosis Positive urine test- Primary documented in this encounter [facility]* Diagnosis Second trimester state, incidental 21 weeks gestation of Diabetes mellitus screening Screening for diabetes mellitus Encounter for follow-up ultrasound of anatomy Encounter for follow-up ultrasound of anatomy documented in this encounter [facility] HealthcareHistory general Narrative - Reported* Type Description Date Medical History otitis media Medical History depression and anxiety Medical History asthma Medical History joint swelling Surgical History adenoidectomy Surgical History PE tubes [facility] Other History general Narrative - Reported* Type Description Date Medical History otitis media Medical History depression and anxiety Medical History asthma Medical History joint swelling Surgical History adenoidectomy Surgical History PE tubes Surgical History tonsillectomy 06/2022 [facility] Other Progress note No data available for this section [facility] for referral (narrative)* Diagnostic Procedure Only (Routine) - Authorized Specialty Diagnoses / Procedures Referred By Leodan t Referred To Contact XR IMAGING Diagnoses Right hand pain Procedures XR HAND GENERAL 3V PA/LAT/OBL RIGHT RADEX HAND MINIMUM 3 VIEWS Brianda Cartwright MD [address] [id number] [place] [address] Referral ID Status Reason Start Date Expiration Date Visits Requested Visits Authorized [id number] Authorized Auto-Generat ed Referral 06/29/2023 07/28/2024 10 10 [facility] for referral (narrative)* Diagnostic Procedure Only (Routine) - Authorized Specialty Diagnoses / Procedures Referred By Leodan t Referred To Contact XR IMAGING Diagnoses Right hand pain Procedures XR HAND GENERAL 3V PA/LAT/OBL RIGHT RADEX HAND MINIMUM 3 VIEWS Brianda Cartwright MD [address] [place] [address] [place] [address] Referral ID Status Reason Start Date Expiration Date Visits Requested Visits Authorized [id number] Authorized Auto-Generat ed Referral 06/29/2023 07/28/2024 10 10 [facility] Summary Purpose Family History Relationship Condition Age at Onset Recorded Date/T ja Not Specified No pertinent family history Unknown Advance Directives Advance Directive Response Recorded Date/ Time Advance [...] Reason for Visit Dog bite of right husani nd with infection Injury of right hand [...] section and content) DATE CREATED AUTHOR 12/16/2020 [facility] DATE CREATED AUTHOR AUTHOR'S ORGANIZ ATION 03/27/2022 [facility] DATE CREATED AUTHOR AUTHOR'S ORGANIZ ATION 10/01/2022 [facility] dical Specialist DATE CREATED AUTHOR AUTHOR'S ORGANIZ ATION 02/25/2023 [facility] DATE CREATED AUTHOR AUTHOR'S ORGANIZ ATION 07/04/2023 [facility] DATE CREATED AUTHOR AUTHOR'S ORGANIZ ATION 11/22/2023 [facility] DATE CREATED AUTHOR AUTHOR'S ORGANIZ ATION 01/06/2024 [facility] DATE CREATED AUTHOR AUTHOR'S ORGANIZ ATION 06/16/2024 [facility] d[facility] Specialists EPIC DATE CREATED AUTHOR AUTHOR'S ORGANIZ ATION 06/18/2024 Dimitry Hoff [facility] REASON FOR VISIT (unrecogniz ed section and content) Reason Comments Radio Gen A21 Specialty Diagnoses / Procedures Referred By Contac t Referred To Contact XR IMAGING Diagnoses Right hand pain Procedures XR HAND GENERAL 3V PA/LAT/OBL RIGHT RADEX HAND MINIMUM 3 VIEWS Brianda Cartwright MD [address] [place] [address] Xr Imaging [place] [address] Referral ID Status Reason Start Date Expiration Date Visits Requested Visits Authorized [id number] Authorized Auto-Generat ed Referral 06/29/2023 07/28/2024 10 10 Reason Comments Initial Visit Reason Comments Routine Visit Patient Care team informatio n (unrecognized section and content) Team Status: Active Member Role Status Adalid Chery MD Primary Care Provider Active Team Status: Inactive Member Role Status Dates Jelly Chery MD Primary Care Provider Active Simone Meng MD Emergency Provider Active Team Status: Inactive Member Role Status Dates Jelly Chery MD Primary Care Provider Active JONATHAN Dodd Attending Provider Active Legal Manager Relationship Specialty Start Date End Date Jelly Chery MD [address] [place] [address] Referring Internal Medicine 06/26/23 Legal Manager Relationship Specialty Start Date End Date Jelly Chery MD [address] [place] [address] Referring Internal Medicine 06/26/23 Legal Manager Relationship Specialty Start Date End Date Jelly Chery MD [address] [place] [address] PCP - General Internal Medicine 10/17/22 Team Status: Inactive Member Role Status Adalid Chery MD Primary Care Provider Active St art: July 27, 2023 End: July 27, 2023 Simone Bahena MD Attending Provider Active Sta rt: July 27, 2023 End: July 27, 2023 Team Status: Inactive Member Role Status Adalid Chery MD Primary Care Provider Active St art: September 07, 2023 End: September 07, 2023 Simone Bahena MD Attending Provider Active Sta rt: September 07, 2023 End: September 07, 2023 Team Status: Inactive Member Role Status Adalid Chery MD Primary Care Provider Active St art: September 29, 2023 End: September 29, 2023 Belia Aguero PA-C Attending Provider Active St art: September 29, 2023 End: September 29, 2023 Team Status: Active Member Role Status Adalid Chery MD Primary Care Provider Active St art: September 29, 2023 Belia Aguero PA-C Attending Provider Active St art: September 29, 2023 Team Status: Inactive Member Role Status Adalid Chery MD Primary Care Provider Active St art: October 13, 2023 End: October 13, 2023 Swapna Caceres MD Attending Provider Active Start: October 13, 2023 End: October 13, 2023 Team Status: Inactive Member Role Status Adalid Chery MD Primary Care Provider Active St art: October 30, 2023 End: October 30, 2023 Georgie Guerrier APRN Attending Provider Active S tart: October 30, 2023 End: October 30, 2023 Team Status: Inactive Member Role Status Adalid Chery MD Primary Care Provider Active St art: November 18, 2023 End: November 18, 2023 Georgie Guerrier APRN Attending Provider Active S tart: November 18, 2023 End: November 18, 2023 Team Status: Inactive Member Role Status Adalid Guerrier APRN Attending Provider Active S tart: [...] February 04, 2024 End: February 04, 2024 Legal Manager Relationship Specialty Start Date End Date Jelly Chery MD [address] [place] [address] PCP - General Internal Medicine 10/17/22 Legal Manager Relationship Specialty Start Date End Date Jelly Chery MD [address] [place] [address] PCP - General Internal Medicine 10/17/22 Legal Manager Relationship Specialty Start Date End Date Jelly Chery MD [address] [place] [address] PCP - General Internal Medicine 10/17/22 Legal Manager Relationship Specialty Start Date End Date Jelly Chery MD [address] [place] [address] PCP - General Internal Medicine 10/17/22 Legal Manager Relationship Specialty Start Date End Date Jelly Chery MD [address] [place] [address] PCP - General Internal Medicine 10/17/22 Legal Manager Relationship Specialty Start Date End Date Jelly Chery MD [address] [place] [address] PCP - General Internal Medicine 10/17/22 Legal Manager Relationship Specialty Start Date End Date Jelly Chery MD [address] [place] [address] PCP - General Internal Medicine 10/17/22 Legal Manager Relationship Specialty Start Date End Date Jelly Chery MD [address] [place] [address] PCP - General Internal Medicine 10/17/22 Legal Manager Relationship Specialty Start Date End Date Jelly Chery MD [address] [place] [address] PCP - General Internal Medicine 10/17/22 Legal Manager Relationship Specialty Start Date End Date Jelly Chery MD [address] [place] [address] PCP - General Internal Medicine 10/17/22 Legal Manager Relationship Specialty Start Date End Date Jelly Chery MD [address] [place] [address] PCP - General Internal Medicine 10/17/22 Legal Manager Relationship Specialty Start Date End Date Jelly Chery MD [address] [place] [address] PCP - General Internal Medicine 10/17/22 Goals (unrecognized section and content) Goals may be documented in a n alternate section Source Comments (unrecognize d section and content) In the event this informatio n is protected by the Federal Confidentiality of Alcohol and Drug Abuse Patient Records regulations: The Federal rules restrict any use of the information to criminally investigate or prosecute any alcohol or drug abuse patient.[facility] the event this information is protected by the Federal Confidentiality of Alcohol and Drug Abuse Patient Records regulations: The Federal rules restrict any use of the information to criminally investigate or prosecute any alcohol or drug abuse patient.[facility] FOR RECORDS PERTAINING TO PATIENTS WHO ARE [...] BE BASED ON THE PRIMARY CLINICAL RECORDS. [facility] [employer] [facility]. provides no warranty or guarantee of the accuracy or completeness of information in this document.
[2024-07-04 09:26] LABS: Glucose Fasting 92 mg/dL (<95)
[2024-07-04 10:19] LABS: Glucose 1 Hour 173 mg/dL (<180)
[2024-07-04 11:47] LABS: Glucose 2 Hour 130 mg/dL (<155)
[2024-07-04 12:28] LABS: Glucose 3 Hour 115 mg/dL (<140)
== END 2024-07-04 08:31 | disposition home or self-care (01) ==
LOC: LAB 08:33
PROVIDERS: PCP Internal Medicine; Visit Provider Obstetrics & Gynecology
DX: R73.09 Other abnormal glucose (principal)
CPT/HCPCS: 36415; 82951; 82952

== ENCOUNTER 2024-07-22 19:30 | Outpatient (OUT) | payer BC, OTHER, SELFPAY ==
--- OUTSIDE RECORDS SUMMARY | 2024-07-22 19:33 | XMS_ITS | CCD ---
Author Organization [facility] Team Providers Care Cushion Maker Hand Name Role Phone Palmira Riggs DO Primary Care Provider [phone] SIMONE MANLEY Attending Unavailable PALMIRA RIGGS Primary [...] Unavailable MD Jelly Chery Primary Care Provider [phone] MD Simone Meng Emergency Provider [phone] MARISA SMALLWOOD Referring Unavailable MARISA SMALLWOOD Attending Unavailable JAISON PETIT Attending Unavailable MD Jelly Chery Primary Care Provider [phone] MD Simone Meng Emergency Provider JONATHAN Johnson Attending Provider [phone] Jelly Chery MD Unavailable MIGUEL ANG Attending Unavailable BRIANDA CARTWRIGHT Referring Unavailable Jelly Chery MD Primary Care Provider MD Jelly Chery Primary Care Provider MD Simone Bahena Attending Provider OJ Aguero Attending Provider MD Jelly Chery Primary Care Provider KRYSTAL Guerrier Attending Provider [phone] Risaliclaudine, Susie Admitting Unavailable Risaliti, Susie Attending Unavailable [...] Care Unavailable JELLY CHERY Primary Care Physician Chichi Roy Attending Unavailable Kirill, Astrleona H Attending Unavailable Roman Syed Attending Unavailable Kirill, Chichi Khoury Attending Unavailable DONOVAN VORA Referring Unavailable DONOVAN VORA Attending Unavailable SARAH PELLETIER Referring Unavailable PENG OLIVARES Attending Unavailable PENG OLIVARES Referring Unavailable JELLY CHERY Attending Unavailable MATTI SIMS Attending Unavailable PENG OLIVARES Referring Unavailable DONOVAN VORA Attending Unavailable PENG OLIVARES Attending Unavailable AMERICA THOMPSON Attending Unavailable DONOVAN VORA Attending Unavailable Allergies Allergy Classification Reported Allergen(s) Allergy Type Date of Onset Reaction(s) Facility Clavulanate (3 sources) Clavulanate; Translations: [clavulanic acid] Drug Allergy 4 Nausea, vomiting, diarrhea [facility] Penicillins (antibiotic) (7 sources) Penicillins; Translations: [Penicillins] Drug Allergy 1 vomiting, diarrhea, Nausea [facility] Unclassified (20 sources) Amoxicillin-Pot Clavulanate Propensity to adverse reactions to drug 1 Diarrhea [facility] (7 sources) Amoxicillin / Clavulanate; Translations: [amoxicillin-cl avulanate] Drug Allergy vomiting, diarrhea, rash [facility] (2 sources) Amoxicillin / Clavulanate; Translations: [Augmentin] Drug Allergy [facility] (1 source) Penicillin Drug Allergy [facility] (20 sources) Clavulanate Drug Allergy 3 GI intolerance [facility] (12 sources) Penicillins; Translations: [PENICILLINS] Allergy to substance 1 GI Upset, Rash [facility] (20 sources) Penicillin G sodium Allergy to substance 3 [facility] (7 sources) Amoxicillin Drug Allergy 4 vomiting, diarrhea [facility] Medications Current Medications Medication Drug [...] 07-27-2023 Fluticasone Propionate (Flon ase) 50 mcg/actuation [place],Suspension Discontinued 2 SPRAY INTRANASAL Daily January 11, [...] Antifungal Start: 10-30-2023 End: 03-10-2024 nystatin (Mycostatin) 526098 UNIT/GM powder Twice daily 10/30/2023 03/10/2024 Discontinued Start: 10-30-2023 End: 02-04-2024 Nystatin Discontinued 1 APPL IC TOPICAL Twice daily 30 7 October 30, 2023 12:00am February 04, 2024 1:27pm Start: 09-29-2023 End: 02-04-2024 Nystatin Discontinued TOPICA L September 29, 2023 12:00am February 04, 2024 1:27pm Start: 10-17-2022 Nystatin 79509 0 UNIT/GM 1 application Externally Twice a day September, Active nystatin 866911 unt/ml / triamcinolone acetonide 1 mg/ml topical [...] 2017 11:40pm MV-Min-Fe Fum-FA-DHA ( 1 PO) (19 sources) MV-Min- Fe Fum-FA-DHA ( 1 PO) [...] - 2 TAB PO EVERY 4-6 HOURS 02 23January 11, 2023 July 27, 2023 3:06pm [id number] 200 actuat albuterol 0.09 mg/actuat metered dose [...] mg/ml extended release suspension (11 sources) Uncompetitive M-nijpuj-E-aspartat e Receptor Antagonist, Sigma-1 Agonist Start: 03-03-2019 [...] Twice daily 05 12March 01, 2021 12:00am November 11th, 2021 10:08pm montelukast 10 mg oral tablet [...] daily Prednisone Discontinued 0 MG PO Daily October 16, 2018 12:00am November 14, 2018 [...] 3 Chronic Other and delivery including normal (11 sources) ; Translations: [Encounter for supervision of [...] [21 weeks gestation of ] 06-09-2024 Episodic Residual codes; unclassified (2 sources) Gestation period, 26 weeks; Translations: [26 weeks gestation of ] 07-12-2024 Episodic Skin and subcutaneous tissue infections (1 [...] Translations: [Otalgia, right ear] Onset: 3 Unclassified (4 sources) OB Reminders Onset: 5 06-16-2024 Urinary tract [...] Test Name Value Interpretation Reference Range Facility Urinalysis macro (dipstick) panel (U)on 07-12-2024 Bilirubin, UA Negative Negative - 4(70) +++ mg/dL [facility] Blood, UA Negative Negative - 50 Raúl/mcL [facility] Clarity, UA Clear [facility] Color, UA Yellow [facility] Glucose, UA Negative Negative - 2000(110) ++++ mg/dL [facility] Interpretation and review of laboratory results Abnormal [facility] Ketones, UA Positive Negative - 160(16) ++++ mg/dL [facility] Comment on above: trace Leukocytes, UA Positive Negative - 500+++ Zainab/mcL [facility] Comment on above: trace Nitrite, UA Negative Negative - Positive [facility] pH, UA 6 5 - 9 [facility] Protein, UA Positive Negative - 2000(20) ++++ mg/dL [facility] Comment on above: trace Spec Grav, UA 1.03 1 - 1.03 [facility] Urobilinogen, UA 0.2 0.2 - 12 mg/dL [facility] GLUCOSE TOLERANCE 3 HOURon 0 07-04-2024 GLUCOSE TOLERANCE 3 HOUR mg/dL [facility] Comment on above: GLU FAST 92 (<95) Co l: 07/04/24 0848 GLU 1HR 173 (<180) Col: 07/04/24 0954 GLU 2HR 130 (<155) Col: 07/04/24 1053 GLU 3HR 115 (<140) Col: 07/04/24 1154 [facility] ALL CBC WITH AUTO DIFFon BASOPHILS ABSOLUTE AUTO 0 [facility] Basophils/100 WBC (Bld) 0.2 % 0.2 - 2.0 % [facility] Eosinophils/100 WBC (Bld) 0.4 % Low 0.9 - 7.0 % [facility] Erythrocyte distribution width (RBC) [Ratio] 13.2 % 11.0 - 15.0 % [facility] Hematocrit (Bld) [Volume fraction] 36.1 % 36.0 - 48.0 % [facility] Hemoglobin (Bld) [Mass/Vol] 12.1 g/dL 12.0 - 16.0 g/dL [facility] IMMATURE GRANULOCYTES ABS AUTO 0.04 High [facility] Immature granulocytes/100 WBC (Bld) 0.4 % 0.0 - 0.5 % [facility] Interpretation and review of laboratory results Abnormal [facility] LYMPHOCYTES ABSOLUTE AUTO 1.7 [facility] Lymphocytes/100 WBC (Bld) 15.1 % Low 20.5 - 60.0 % [facility] MCH (RBC) [Entitic mass] 32.4 pg 26.7 - 34.0 pg [facility] MCHC (RBC) [Mass/Vol] 33.5 g/dL 29.9 - 35.2 g/dL [facility] MCV (RBC) [Entitic vol] 96.5 fL 81.0 - 99.0 fL [facility] MONOCYTES ABSOLUTE AUTO 0.6 [facility] Monocytes/100 WBC (Bld) 5.4 % 1.7 - 12.0 % [facility] NEUTROPHILS ABSOLUTE AUTO 8.8 High [facility] Neutrophils/100 WBC (Bld) 78.5 % High 43.0 - 75.0 % [facility] Platelet mean volume (Bld) [Entitic vol] 9.5 fL 9.5 - 13.5 fL [facility] TBH EO # 0.1 [facility] TB PLT 227 [facility] RBC 3.74 Low [facility] WBC 11.2 High [facility] BMPon 06-17-2024 Anion gap [Moles/Vol] 14 mmol/L Normal 6-16 [facility] Comment on above: Performed By: #### 2 [id number] #### [facility] [address] [place] [address] Calcium [Mass/Vol] 8.4 mg/dL Low 8.9-11.1 [facility] Comment on above: Performed By: #### 2 [id number] #### [facility] [address] [place] [address] Chloride [Moles/Vol] 104 mmol/L Normal 101-111 [facility] Comment on above: Performed By: #### 2 [id number] #### [facility] [address] [place] [address] CO2 [Moles/Vol] 20 mmol/L Low 21-31 [facility] Comment on above: Performed By: #### 2 [id number] #### [facility] [address] [place] [address] Creatinine [Mass/Vol] 0.6 mg/dL Normal 0.5-1.3 [facility] Comment on above: Performed By: #### 2 [id number] #### [facility] [address] [place] [address] Glucose [Mass/Vol] 96 mg/dL Normal 55-199 [facility] Comment on above: Performed By: #### 2 [id number] #### [facility] [address] [facility] [place] [address] Potassium [Moles/Vol] 3.5 mmol/L Normal 3.5-5.3 [facility] Comment on above: Performed By: #### 2 [id number] #### [facility] [address] [facility] [place] [address] Sodium [Moles/Vol] 134 mmol/L Low 135-145 [facility] Comment on above: Performed By: #### 2 [id number] #### [facility] [address] [place] [address] Urea nitrogen [Mass/Vol] 8 mg/dL Normal 5-21 [facility] Comment on above: Performed By: #### 2 [id number] #### [facility] [address] [place] [address] Urea nitrogen/Creatinine [Mass ratio] 13 No Units Normal 10-20 [facility] Comment on above: Performed By: #### 2 [id number] #### [facility] [address] [place] [address] ED Clinical Summaryon 2024 ED Clinical Summary ED Clinical Summary [address] [address] ED Clinical Summary Person Information Name: DEVORAH SHELTON [facility] Age: 29 Years : 1995 Sex: Female Language: Niuean PCP: JELLY CHERY MD Marital Status: Single Phone: [phone] MRN: Visit Id: Visit Reason: Nausea; Body [...] 06/17/2024 01:25:53 06/17/2024 01:25:53 06/17/2024 01:25:53 ADDRESS: [address] [place] [id number] PHYS DOC NOTES: MEDICAL INFORMATION: Prescriptions Given: New Medications [id number], [address], [place] [id number], [phone] ondansetron (Zofran ODT 4 mg Tab-Dis) 1 [...] Adult Follow up: With: Address: When: Donovan VORA [facility], [address] [place] [address] , [place] [address] Business (1) In 3 days 06/20/2024 Comments: Return to the emergency room if your vomiting recurs or any new symptoms. With: Address: When: [address], [address] [place] [address] Business (1) In 3 days DIAGNOSIS: 1:Nausea and vomiting Normal [facility] ED Note-Physicianon 06-17-19 ED Note-Physician ED [...] and Complexity of Problems Differential Diagnosis: [] [facility] Data External documents reviewed: [] My EKG [...] Nausea/Vomiting, # 12 tab(s), Refills(s) 0, Pharmacy: [id number], 157, cm, 06/16/24 22:56:00 EST, Height/Length Dosing, 97.3, kg, 01/23/25 22:56:00 EST, Weight Dosing Sodium Chloride 0.9% intravenous solution, 1,000 mL, Soln-IV, IV, Once, Stop date 06/16/24 23:27:00 EST, STAT, Start date 06/16/24 23:27:00 EST, Infuse over 61, minute(s) Basic Metabolic Panel CBC w/ Auto Diff eGFR Influenza A&B Ag Rapid COVID Antigen ([facility]) UA with Cult Rflx Medications Administered Given NS 1000 ml Bolus, 1000 mL, IV Zofran 4 mg/2 mL Injection, 4 mg, IV Push Disposition Plan Patient Discharge Condition Stable, improved Discharge Disposition Discharge home Discharge Prescription List Prescriptions Zofran ODT 4 mg Tab-Dis, 4 mg= 1 tab(s), Oral, q6hr, PRN Follow-up With When Contact Information Donovan VORA In 3 days 06/20/2024 [facility] [address] [facility] , [place] [address]- Business (1) Additional Instructions: Return to the emergency room if your vomiting recurs or any new symptoms. JELLY MIRI In 3 days [address] [facility] [address] [place] [address]- Business (1) Additional Instructions: Patient Education Nausea [...] Current, 11/13/2018 (more content not included)... Normal [facility] Comment on above: Result Comment: Elec tronically Signed By: Kirill Long, Chichi Khoury\.br\Date and Time Signed: 06/17/24 02:11 EST ED Patient Summaryon 025 ED Patient Summary ED Patient Summary [place] [id number] Patient Discharge Instructions Person Information Name: DEVORAH SHELTON Age: 29 Years Arrival Date: 06/16/2024 22:42:49 Discharge Diagnosis: 1:Nausea and vomiting Primary Care Physician: MIRI BA, JELLY Al Provider Information Primary Provider: Chichi Roy M.D. Advanced Security Compliance Specialist:None The exam and treatment you received in the Emergency Department were for an urgent problem and are not intended as complete care. It is important that you follow up with a doctor, nurse practitioner, or physician???s assistant chief engineer for ongoing care. If your symptoms become worse or you do not improve as expected and you are unable to reach your usual health care provider, you should return to the Emergency Department. We are available 24 hours a day. DEVORAH SHELTON has been given the following list of patient education materials, prescriptions and follow-up instructions: Follow-up Instructions: With: Address: When: Donovan [address] [place] [id number] [facility] (1) In 3 days 06/20/2024 Comments: Return to the emergency room if your vomiting recurs or any new symptoms. With: Address: When: JELLY CHERY [address] [place] [address], [address] [place] [phone] [facility] (1) In 3 days In the event that this physician does not participate in your insurance network, please consult with your insurance company to find a nearby participating provider. Patient Education Materials: Nausea and Vomiting, Adult A MESSAGE TO ALL PATIENTS REGARDING OPIOIDS PRESCRIPTION OPIOIDS: WHAT YOU NEED TO KNOW Prescription opioids can be used to help relieve xabdyxhc-ym-ynqrhm pain and are often prescribed following a [...] and Drug (more content not included)... Normal [facility] Influenza A&B Agon Influenzae A Ag Negative Normal Negative [facility] Comment on above: Performed By: #### 1 [id number] #### [facility] [address] [place] [address] Influenzae B Ag Negative Normal Negative [facility] Comment on above: Result Comment: Test sensitivity and specificity vary for age group, specimen type, antigen types, and prevalence of disease. Test results must be evaluated in conjunction with other clinical data available to the physician. Individuals who received nasally administered Influenza A vaccine may have positive test results up to 3 days after vaccination. Performed By: #### 1 [id number] #### [facility] [address] [place] [address] Rapid COVID Antigen ([facility])on 06-17-2024 Rapid COV Int NEG Ctl Pass Normal [facility] Comment on above: Performed By: #### 2 [id number] #### [facility] [address] [place] [address] Rapid COV Int POS Ctl Pass Normal [facility] Comment on above: Performed By: #### 2 [id number] #### [facility] [address] [place] [address] SARS-CoV+SARS-CoV-2 (COVID-19) Ag IA.rapid Ql (Resp) Not detected Normal Not Detected [facility] Comment on above: Result Comment: The Cloutex Veritor??? System for Rapid Detection of SARS-CoV-2 [...] For in vitro diagnostic use. In the [facility], only for use under an Emergency Use [...] other viruses or pathogens; and, in the [facility], this test is only authorized for the duration of the declaration that circumstances exist justifying the authorization of emergency use of in vitro diagnostics for detection and/or diagnosis of the virus that causes COVID-19 under Section 564(b)(1) of the Act, 21 U.S.C. ??? 360bbb-3(b)(1), unless the authorization is terminated or revoked sooner. Performed By: #### 2 [id number] #### [facility] [address] [place] [address] UA with Cult Rflxon 06-17-19 25 Bilirubin Ql (U) Negative Normal Negative [facility] Comment on above: Performed By: #### 4 [id number] #### [facility] [address] [place] [address] Clarity (U) Clear Normal Clear [facility] Comment on above: Performed By: #### 4 [id number] #### [facility] [address] [place] [address] Color (U) Yellow Normal Yellow [facility] Comment on above: Result Comment: Micr oscopic readings are only performed on those samples that meet specific criteria set forth by [facility]. Performed By: #### 4 [id number] #### [facility] [address] [place] [address] Glucose Ql (U) Negative Normal Negative [facility] Comment on above: Performed By: #### 4 [id number] #### [facility] [address] [place] [address] Hemoglobin Auto test strip (U) [Mass/Vol] Negative Normal Negative [facility] Comment on above: Performed By: #### 4 [id number] #### [facility] [address] [place] [address] Ketones Auto test strip Ql (U) 2+ mg/dL Abnormal Negative [facility] Comment on above: Performed By: #### 4 [id number] #### [facility] [address] [place] [address] Leukocyte esterase Auto test strip Ql (U) Negative Normal Negative [facility] Comment on above: Performed By: #### 4 [id number] #### [facility] [address] [place] [address] Nitrite Auto test strip Ql (U) Negative Normal Negative [facility] Comment on above: Performed By: #### 4 [id number] #### [facility] [address] [place] [address] pH (U) 6.0 [pH] Invalid Interpretation Code 5.0-9.0 [facility] Comment on above: Performed By: #### 4 [id number] #### [facility] [address] [place] [address] Protein Ql (U) Trace Abnormal Negative [facility] Comment on above: Performed By: #### 4 [id number] #### [facility] [address] [place] [address] Specific gravity (U) [Rel density] 1.034 Invalid Interpretation Code 1.005-1.03 0 [facility] Comment on above: Performed By: #### 4 [id number] #### [facility] [address] [place] [address] Urobilinogen (U) [Mass/Vol] 2 mg/dL Abnormal Negative [facility] Comment on above: Performed By: #### 4 [id number] #### [facility] [address] [place] [address] eGFRon 06-17-2024 eGFR 126 mL/min/1.73 m2 Normal >=59 [facility] Comment on above: Performed By: #### 1 [id number] #### [facility] [address] [place] [address] CBC w/ Auto Diffon Basophils/100 WBC (Bld) 0.4 % Normal 0.0-2.0 [facility] Comment on above: Performed By: #### 2 [id number] #### [facility] [address] [place] [address] Basophils/Leukocytes Auto (Bld) [Pure # fraction] 0.0 E9/L Normal 0.0-0.2 [facility] Comment on above: Performed By: #### 2 [id number] #### [facility] [address] [place] [address] Eosinophils (Bld) [#/Vol] 0.0 E9/L Normal 0.0-0.5 [facility] Comment on above: Performed By: #### 2 [id number] #### [facility] [address] [place] [address] Eosinophils/100 WBC (Bld) 0.2 % Normal 0.0-8.0 [facility] Comment on above: Performed By: #### 2 [id number] #### [facility] [address] [place] [address] Erythrocyte distribution width (RBC) [Ratio] 13.4 % Normal 10.9-14.2 [facility] Comment on above: Performed By: #### 2 [id number] #### [facility] [address] [place] [address] Hematocrit (Bld) [Volume fraction] 35.5 % Normal 34.0-46.0 [facility] Comment on above: Performed By: #### 2 [id number] #### [facility] [address] [place] [address] Hemoglobin (Bld) [Mass/Vol] 12.3 g/dL Normal 12.0-16.0 [facility] Comment on above: Performed By: #### 2 [id number] #### [facility] [address] [place] [address] Lymphocytes (Bld) [#/Vol] 0.9 E9/L Low 1.0-4.0 [facility] Comment on above: Performed By: #### 2 [id number] #### [facility] [address] [place] [address] Lymphocytes/100 WBC (Bld) 7.3 % Low 14.0-50.0 [facility] Comment on above: Performed By: #### 2 [id number] #### [facility] [address] [place] [address] MCH (RBC) [Entitic mass] 32.6 pg Normal 27.0-34.0 [facility] Comment on above: Performed By: #### 2 [id number] #### [facility] [address] [place] [address] MCHC (RBC) [Mass/Vol] 34.7 g/dL Normal 31.4-36.0 [facility] Comment on above: Performed By: #### 2 [id number] #### [facility] [address] [place] [address] MCV (RBC) [Entitic vol] 93.9 fL Normal 80.0-100.0 [facility] Comment on above: Performed By: #### 2 [id number] #### [facility] [address] [place] [address] Monocytes (Bld) [#/Vol] 0.7 E9/L Normal 0.2-1.0 [facility] Comment on above: Performed By: #### 2 [id number] #### [facility] [address] [place] [address] Neutrophils (Bld) [#/Vol] 11.4 E9/L High 2.0-7.5 [facility] Comment on above: Performed By: #### 2 [id number] #### [facility] [address] [place] [address] Neutrophils/100 WBC (Bld) 87.0 % High 36.0-75.0 [facility] Comment on above: Performed By: #### 2 [id number] #### [facility] [address] [place] [address] Platelet mean volume (Bld) [Entitic vol] 7.6 fL Normal 6.4-10.8 [facility] Comment on above: Performed By: #### 2 [id number] #### [facility] [address] [place] [address] Platelets (Bld) [#/Vol] 223.0 E9/L Normal 150.0-500. 0 [facility] Comment on above: Performed By: #### 2 [id number] #### [facility] [address] [place] [address] RBC (Bld) [#/Vol] 3.8 E12/L Low 4.3-5.9 [facility] Comment on above: Performed By: #### 2 [id number] #### [facility] [address] [place] [address] WBC corrected for nucl RBC Auto (Bld) [#/Vol] 13.0 E9/L High 4.0-11.0 [facility] Comment on above: Performed By: #### 2 [id number] #### [facility] [address] [place] [address] UA with Cult Rflxon 06-16-19 Type of Urine collection method Clean Catch Normal [facility] Comment on above: Performed By: #### 4 [id number] #### [facility] [address] [place] [address] US for pregnancyon 5 TITLE OF EXAM: OB Ultrasound: REASON FOR [...] signed and approved by the interpreting radiologist. Miguel Donovan MD - 06/15/2024 TITLE OF EXAM: OB [...] signed and approved by the interpreting radiologist. [facility] [employer] US for pregnancyOrdered By: Miguel Gonzalez on 06-15-2024 [employer] Work Phone: US OB LIMITED 1+ FETUSESon [...] US for pregnancyon Radiology Study observation (narrative) [facility] Urinalysis macro (dipstick) panel (U)on 06-09-2024 Bilirubin, UA Negative Negative - 4(70) +++ mg/dL [facility] Blood, UA Negative Negative - 50 Raúl/mcL [facility] Clarity, UA Clear [facility] Color, UA Yellow [facility] Glucose, UA Negative Negative - 2000(110) ++++ mg/dL [facility] Interpretation and review of laboratory results Abnormal [facility] Ketones, UA Negative Negative - 160(16) ++++ mg/dL [facility] Leukocytes, UA Trace Negative - 500+++ Zainab/mcL [facility] Nitrite, UA Negative Negative - Positive [facility] pH, UA 7 5 - 9 [facility] Protein, UA Trace Negative - 2000(20) ++++ mg/dL [facility] Spec Grav, UA 1.025 1 - 1.03 [facility] Urobilinogen, UA 0.2 0.2 - 12 mg/dL [facility] US OB 14+ WEEKS ANATOMY SCAN [...] due to habitus, however. Dictated and transcribed 05/31/2023/jf This report has been electronically signed and approved by the interpreting radiologist. Normal Not Available Comment on above: Order Comment: US OB ANATOMY SINGLE W US OB CERVICAL LENGTH Estimated Date of Delivery: 10/15/24 Gestational Age as of 05/10/2024: 20w2d RECURRENT VAGINITIS (HTRX)on 05-11-2024 ATOPOBIUM VAGINAE 0 [facility] ATOPOBIUM VAGINAE Not detected [facility] BVAB 2,3 (BACTERIAL VAGINOSIS ASSOCIATED BACTERIA 2, 3); MOBILUNCUS SPP 0 [facility] BVAB 2,3 (BACTERIAL VAGINOSIS ASSOCIATED BACTERIA 2, 3); MOBILUNCUS SPP Not detected [facility] ZABRINA ALBICANS, PARAPSILOSIS, TROPICALIS 0 [facility] ZABRINA ALBICANS, PARAPSILOSIS, TROPICALIS Not detected [facility] ZABRINA GLABRATA 0 [facility] ZABRINA GLABRATA Not detected [facility] ZABRINA KRUSEI 0 [facility] ZABRINA KRUSEI Not detected [facility] CHLAMYDIA TRACHOMATIS 0 [facility] CHLAMYDIA TRACHOMATIS Not detected [facility] GARDNERELLA VAGINALIS 0 [facility] GARDNERELLA VAGINALIS Not detected N [facility] Interpretation and review of laboratory results Abnormal [facility] MEGASPHAERA (TYPES 1, 2) 29.944 Abnormal [facility] MEGASPHAERA (TYPES 1, 2) Detected Abnormal [facility] MYCOPLASMA GENITALIUM 0 [facility] MYCOPLASMA GENITALIUM Not detected N [facility] NEISSERIA GONORRHOEAE 0 [facility] NEISSERIA GONORRHOEAE Not detected N [facility] TET B, TET M 25.811 Abnormal [facility] TET B, TET M Detected Abnormal [facility] TRICHOMONAS VAGINALIS 0 [facility] TRICHOMONAS VAGINALIS Not detected N [place] Urinalysis macro (dipstick) panel (U)on 05-10-2024 Bilirubin, UA Negative Negative - 4(70) +++ mg/dL [facility] Blood, UA Negative Negative - 50 Raúl/mcL [facility] Clarity, UA Clear [facility] Color, UA Yellow [facility] Glucose, UA Negative Negative - 1999(110) ++++ mg/dL [facility] Interpretation and review of laboratory results Abnormal [facility] Ketones, UA Positive Negative - 160(16) ++++ mg/dL [facility] Comment on above: 15 Leukocytes, UA Trace Negative - 500+++ Zainab/mcL [facility] Nitrite, UA Negative Negative - Positive [facility] pH, UA 6 5 - 9 [facility] Protein, UA Trace Negative - 1999(20) ++++ mg/dL [facility] Spec Grav, UA 1.03 1 - 1.03 [facility] Urobilinogen, UA 0.2 0.2 - 12 mg/dL [facility] S. pyogenes DNA CRYSTAL+probe No m (Unsp spec)on 04-25-2024 Interpretation and review of laboratory results Abnormal [facility] RESULT Positive Negative [facility] Urinalysis macro (dipstick) panel (U)on 04-11-2024 Bilirubin, UA Negative Negative - 4(70) +++ mg/dL [facility] Blood, UA Negative Negative - 50 Raúl/mcL [facility] Clarity, UA Clear [facility] Color, UA Yellow [facility] Glucose, UA Negative Negative - 1999(110) ++++ mg/dL [facility] Interpretation and review of laboratory results Normal [facility] Ketones, UA Negative Negative - 160(16) ++++ mg/dL [facility] Leukocytes, UA Negative Negative - 500+++ Zainab/mcL [facility] Nitrite, UA Negative Negative - Positive [facility] pH, UA 6 5 - 9 [facility] Protein, UA Negative Negative - 1999(20) ++++ mg/dL [facility] Spec Grav, UA 1.025 1 - 1.03 [facility] Urobilinogen, UA 0.2 0.2 - 12 mg/dL [facility] ALL RUBELLA IGG ABon 024 RUBELLA ANTIBODIES, IGG 6.50 Immune >0.99 index [facility] Comment on above: Non-immune <0.90 Equivocal 0.90 - 0.99 Immune >0.99 Performed at: [facility] [place] [address] Meter Tester: Myron Milton PhD, Phone: [phone] HBSAG SCREENon 04-05-2024 HBSAG SCREEN Negative Negative [facility] Comment on above: Performed at: [facility] [place] [address] Meter Tester: Myron Milton PhD, Phone: [phone] HCV ANTIBODY RFX TO QUANT PC Tyson 04-05-2024 HCV AB Non-Reactive Non Reactive [facility] INTERPRETATION: Comment . [facility] Comment on above: Not infected with HC V unless early or acute infection is suspected (which may be delayed in an immunocompromised individual), or other evidence exists to indicate HCV infection. HIV AB/P24 AG WITH REFLEXon 04-05-2024 HIV AB/P24 AG SCREEN Non-Reactive Non Reactive [facility] Comment on above: HIV-1/HIV-2 antibodi es and HIV-1 p24 antigen were NOT detected. There is no laboratory evidence of HIV infection. HIV Negative Performed at: [facility] [address] [id number] Meter Tester: Myron Milton PhD, Phone: [phone] No Panel Informationon 04-05 [facility] RAPID PLASMA REAGIN, QUANTon 04-05-2024 RAPID PLASMA REAGIN, QUANT Non-Reactive NonRea<1:1 titer [facility] Comment on above: Please Note: This te st does not meet current guidelines for screening and diagnosis of syphilis. This test is intended for following treatment response in patients being treated for syphilis infection. To screen for syphilis infection, a reflex cascade that includes both RPR and a treponema-specific assay should be utilized, such as Treponema pallidum (Syphilis) Screening [place] (304749) or Rapid Plasma Reagin (RPR) Test With Reflex to Quantitative RPR and Confirmatory Treponema pallidum Antibodies (968114). Performed at: [address] [id number] Meter Tester: Myron Milton PhD, Phone: [phone] URINE CULTURE, ROUTINEon Bacteria identified Cx Nom (U) Urine Culture, Routine [facility] Bacteria identified Cx Nom (U) Mixed urogenital lenka [facility] Bacteria identified Cx Nom (U) 10,000-25,000 colony forming units per mL [facility] Bacteria identified Cx Nom (U) Performed at: [facility] Bacteria identified Cx Nom (U) [address] [place], [place] [id number] [facility] Bacteria identified Cx Nom (U) Meter Tester: Myron Milton PhD, Phone: [phone] [facility] ALL CBC WITH AUTO DIFFon BASOPHILS ABSOLUTE AUTO 0 [facility] Basophils/100 WBC (Bld) 0.2 % 0.2 - 2.0 % [facility] Eosinophils/100 WBC (Bld) 0.6 % Low 0.9 - 7.0 % [facility] Erythrocyte distribution width (RBC) [Ratio] 12.6 % 11.0 - 15.0 % [facility] Hematocrit (Bld) [Volume fraction] 38.4 % 36.0 - 48.0 % [facility] Hemoglobin (Bld) [Mass/Vol] 12.9 g/dL 12.0 - 16.0 g/dL [facility] IMMATURE GRANULOCYTES ABS AUTO 0.03 [facility] Immature granulocytes/100 WBC (Bld) 0.3 % 0.0 - 0.5 % [facility] Interpretation and review of laboratory results Abnormal [facility] LYMPHOCYTES ABSOLUTE AUTO 1.8 [facility] Lymphocytes/100 WBC (Bld) 19.8 % Low 20.5 - 60.0 % [facility] MCH (RBC) [Entitic mass] 31.9 pg 26.7 - 34.0 pg [facility] MCHC (RBC) [Mass/Vol] 33.6 g/dL 29.9 - 35.2 g/dL [facility] MCV (RBC) [Entitic vol] 94.8 fL 81.0 - 99.0 fL [facility] MONOCYTES ABSOLUTE AUTO 0.6 [facility] Monocytes/100 WBC (Bld) 6.9 % 1.7 - 12.0 % [facility] NEUTROPHILS ABSOLUTE AUTO 6.7 High [facility] Neutrophils/100 WBC (Bld) 72.2 % 43.0 - 75.0 % [facility] Platelet mean volume (Bld) [Entitic vol] 9.4 fL Low 9.5 - 13.5 fL [facility] EO # 0.1 [facility] TB PLT 252 [facility] RBC 4.05 Low [facility] WBC 9.3 [facility] ALL TYPE AND SCREENon 2023 ABO and Rh group Nom (d) Blood group O Rh(D) positive [facility] [place] MLR HEMOGLOBIN A1Con 024 Glucose [Mass/Vol] 91 mg/dL [facility] HbA1c (Bld) [Mass fraction] 4.8 % 4.5 - 6.2 % [facility] Comment on above: ADA RECOMMENDED LIMI T 4.0 - 6.0 ADA THERAPEUTIC TARGET < 7.0 ACTION SUGGESTED > 7.0 [facility] DRUG SCREEN RAPID (URINE )on 04-04-2024 AMPHETAMINE SCREEN URINE Negative NEGATIVE [facility] BARBITURATES SCREEN URINE Negative NEGATIVE [facility] BENZODIAZEPINES SCREEN URINE Negative NEGATIVE [facility] BUPRENORPHINE SCREEN URINE Negative NEGATIVE [facility] Comment on above: DRUG CLASS TEST SYST [...] 300 ng/mL CANNABINOID SCREEN URINE Negative NEGATIVE [facility] COCAINE SCREEN URINE Negative NEGATIVE [facility] METHADONE SCREEN URINE Negative NEGATIVE [facility] METHAMPHETAMINES SCREEN URINE Negative NEGATIVE [facility] OPIATE SCREEN URINE Negative NEGATIVE [facility] OXYCODONE SCREEN URINE Negative NEGATIVE [facility] PHENCYCLIDINE SCREEN URINE Negative NEGATIVE [facility] TRICYCLIC ANTIDEPRESSANT URINE Negative NEGATIVE [facility] XR FOREARM 2 VIEWS RIGHTon 1 05-28-2023 [...] Note-Physician ED Note-Physician Basic Information Time Seen: Anh MCWILLIAMS, Kp Weiss 03/24/2024 20:43 Chief Complaint pt to ED [...] and symmetry. No ataxia with finger-nose or repn-el-sqnv. Intact sensation of bilateral upper and lower [...] Information JELLY CHERY In 3 days 03/27/2024 [place] [id number] [facility] (1) Additional Instructions: Patient Education Wrist Sprain, Adult Attestation Patient seen and evaluated by the physician assistant chief engineer. Attending physician was present in the emergency department and supervised care. This visit was performed by both the physician and an APC. I performed all aspects of the MDM as documented. This report was transcribed using voice recognition software. (more content not included)... Normal [facility] Comment on above: Result Comment: Elec tronically Signed By: Kp Kamara PA-C\.br\Date and Time Signed: 03/24/24 22:31 EDT\.br\Electronically Co-Signed By: Luther Ventura DO.br\Date and Time Co-Signed: 03/25/24 02:57 EDT XR [...] mGy = na DAP = na Normal [facility] ED Clinical Summaryon 2023 ED Clinical Summary ED Clinical Summary [place] [id number] ED Clinical Summary Person Information Name: DEVORAH SHELTON [facility] Age: 29 Years : 1995 Sex: Female Language: Niuean PCP: JELLY CHERY MD Marital Status: Single Phone: [phone] Visit Id: Visit Reason: Facial abrasion, minor; [...] 03/24/2024 22:38:59 03/24/2024 22:38:59 03/24/2024 22:38:59 ADDRESS: [address] [place] [id number] PHYS DOC NOTES: MEDICAL INFORMATION: Prescriptions Given: Medications to Continue with No Changes Other Medications cyclobenzaprine By Mouth. ethinyl estradiol-norgestimate (Sprintec) 1 Tablets By Mouth every day. ibuprofen meloxicam (Mobic) By Mouth every day. omeprazole By Mouth every day. venlafaxine By Mouth. PATIENT EDUCATION INFORMATION: Instructions: Wrist Sprain, Adult Follow up: With: Address: When: [address], [address] [place] [id number] Business (1) In 3 days 03/27/2024 DIAGNOSIS: Accidental fall; Facial abrasion; Right wrist sprain Normal [facility] ED Patient Summaryon ED Patient Summary ED Patient Summary [address] [address] Patient Discharge Instructions Person Information Name: DEVORAH SHELTON Age: 29 Years Arrival Date: 03/24/2024 18:45:11 Discharge Diagnosis: Accidental fall; Facial abrasion; Right wrist sprain Primary Care Physician: JELLY CHERY MD Provider Information Primary Provider: Luther Ventura DO Advanced Security Compliance Specialist:Kp Kamara PA-C The exam and treatment you received in the Emergency Department were for an urgent problem and are not intended as complete care. It is important that you follow up with a doctor, nurse practitioner, or physician???s assistant chief engineer for ongoing care. If your symptoms become worse or you do not improve as expected and you are unable to reach your usual health care provider, you should return to the Emergency Department. We are available 24 hours a day. DEVORAH SHELTON has been given the following list of patient education materials, prescriptions and follow-up instructions: Follow-up Instructions: With: Address: When: JELLY CHERY [address] [place] [address], [address] [place] [address] Business (1) In 3 days 03/27/2024 In the event that this physician does not participate in your insurance network, please consult with your insurance company to find a nearby participating provider. Patient Education Materials: Wrist Sprain, Adult A MESSAGE TO ALL PATIENTS REGARDING OPIOIDS PRESCRIPTION OPIOIDS: WHAT YOU NEED TO KNOW Prescription opioids can be used to help relieve cpfolsob-ju-hbyhkx pain and are often prescribed following a [...] with calvin (more content not included)... Normal [facility] HCG ( test) Ql (U)o n 03-10-2024 Interpretation and review of laboratory results Abnormal [facility] Preg Test, Ur Positive [facility] Urinalysis macro (dipstick) panel (U)on 03-10-2024 Bilirubin, UA Positive Negative - 4(70) +++ mg/dL [facility] Comment on above: small Blood, UA Negative Negative - 50 Raúl/mcL [facility] Clarity, UA Clear [facility] Color, UA Yellow [facility] Glucose, UA Negative Negative - 1999(110) ++++ mg/dL [facility] Interpretation and review of laboratory results Abnormal [facility] Ketones, UA Positive Negative - 160(16) ++++ mg/dL [facility] Comment on above: 40 Leukocytes, UA Negative Negative - 500+++ Zaianb/mcL [facility] Nitrite, UA Negative Negative - Positive [facility] pH, UA 6.5 5 - 9 [facility] Protein, UA Negative Negative - 2000(20) ++++ mg/dL [facility] Spec Grav, UA 1.025 1 - 1.03 [facility] Urobilinogen, UA 0.2 0.2 - 12 mg/dL [facility] hCG, quantitative, on 02-17-2024 HCG.intact+Beta subunit Qn 87 mIU/mL [facility] Comment on above: Female (Non- ) 0 - 5 (Postmenopausal) 0 - 8 Female () Weeks of Gestation 3 6 - 71 4 10 - 750 5 870 - 7001 6 625 - 75125 7 [phone] -[phone] 8 93245 -550737 9 21440 -502092 10 16382 -711855 12 56679 -458892 14 43818 - 43085 15 44406 - 48561 16 8616 - 54741 17 6138 - 20501 18 8629 - 48421 Juan Luis ECLIA methodology Performed at: [address] [place] [id number] Meter Tester: Myron Milton PhD, Phone: [phone] Specimen Comment: A courtesy copy of this report has been sent to [phone] [facility] XR Hand 3+ Views Lefton 12-24 XR Hand 3+ Views Left Exam Date/Time: 01/15/2024 22:18 EDT Reason for Exam: Pain, Traumatic Report IMPRESSION: NEGATIVE LEFT HAND. CLINICAL HISTORY: Pain, Traumatic COMPARISONS: NONE AVAILABLE FINDINGS: AP, lateral and oblique views of the left hand demonstrate no evidence of fracture, dislocation, bone or joint abnormality. Ordering Provider: Whitney Frost FINAL REPORT Dictated: 01/16/2024 9:28 am Rylan Pepe MD Signed (Electronic Signature): 01/16/2024 9:28 am Signed by: Rylan Pepe MD Transcribed by: ANTHONY Technologist: BISI Technical Comments Radiation Dose: Ka,r in mGy = na DAP = na Normal [facility] ED Clinical Summaryon 2023 ED Clinical Summary ED Clinical Summary [place] [id number] ED Clinical Summary Person Information Name: DEVORAH SHELTON [facility] Age: 28 Years : 1995 Sex: Female Language: Niuean PCP: JELLY CHERY MD Marital Status: Single Phone: [phone] Visit Id: Visit Reason: Finger injury - [...] 01/15/2024 22:46:45 01/15/2024 22:46:45 01/15/2024 22:46:45 ADDRESS: [address] [place] [id number] PHYS DOC NOTES: MEDICAL INFORMATION: Prescriptions Given: Medications to Continue with No Changes Other Medications cyclobenzaprine By Mouth. ethinyl estradiol-norgestimate (Sprintec) 1 Tablets By Mouth every day. ibuprofen meloxicam (Mobic) By Mouth every day. omeprazole By Mouth every day. venlafaxine By Mouth. PATIENT EDUCATION INFORMATION: Instructions: Musculoskeletal Pain Follow up: With: Address: When: [address], [address] [place] [address] Business (1) In 3 days 01/18/2024 Comments: To schedule follow-up appointment with your family physician if symptoms not improve in the next 2 to 3 days. Alternate Tylenol, ibuprofen, and ice as needed for pain management. Return to the ED with any worsening symptoms DIAGNOSIS: Hand pain, left Normal [facility] ED Note-Physicianon 01-15-20 ED Note-Physician ED Note-Physician Basic Information Time Seen: Whitney Frost PA-C 01/15/2024 21:45 Chief Complaint Pt to ED [...] JELLY CHERY In 3 days 01/18/[address] [place], [place] [id number] [facility] (1) Additional Instructions: To schedule follow-up appointment with your family physician if symptoms not improve in the next 2 to 3 days. Alternate Tylenol, ibuprofen, and ice as needed for pain management. Return to the ED with any worsening symptoms Patient Education Musculoskeletal Pain Attestation Patient seen and evaluated by the physician assistant chief engineer. Attending physician was present in the emergency department and supervised care. This visit was performed by both the physician and an APC. I performed all aspects of the MDM as documented. This report was transcribed using voice recognition software. Every effort was made to ensure accuracy, however, inadvertently computerized learning specialist mistakes may be present. Appropriate healthcare PPE [...] Former sm (more content not included)... Normal [facility] Comment on above: Result Comment: Elec tronically Signed By: Whitney Frost PA-C\.br\Date and Time Signed: 01/15/24 22:43 EDT\.br\Electronically Co-Signed By: Roman Syed DO\.br\Date and Time Co-Signed: 01/15/24 23:00 EDT ED Patient Summaryon 024 ED Patient Summary ED Patient Summary [place] [id number] Patient Discharge Instructions Person Information Name: DEVORAH SHELTON Age: 28 Years Arrival Date: 01/15/2024 21:22:33 Discharge Diagnosis: Hand pain, left Primary Care Physician: JELLY CHERY MD Provider Information Primary Provider: Roman Syed DO Advanced Security Compliance Specialist:Whitney Frost PA-C The exam and treatment you received in the Emergency Department were for an urgent problem and are not intended as complete care. It is important that you follow up with a doctor, nurse practitioner, or physician?s assistant chief engineer for ongoing care. If your symptoms become worse or you do not improve as expected and you are unable to reach your usual health care provider, you should return to the Emergency Department. We are available 24 hours a day. DEVORAH SHELTON has been given the following list of patient education materials, prescriptions and follow-up instructions: Follow-up Instructions: With: Address: When: JELLY [address], [address] [place] [address] Business (1) In 3 days 01/18/2024 Comments: [...] opioids can be used to help relieve yjhfgmzc-oq-agsfil pain and are often prescribed following a [...] Visit ww (more content not included)... Normal [facility] Image-guided pap and hpv mrn a e6/e7 reflex genotypes 16, 18/45on 01-14-2024 Clearance Coordinator Cyto stain Nom (Cvx/Vag) [ID] Comment [facility] Comment on above: Piotr Mckeon totpedro pabloologist (ASCP) Cytology report Cyto stain Doc (Cvx/Vag) Comment [facility] Comment on above: NEGATIVE FOR INTRAEP ITHELIAL LESION OR MALIGNANCY. Cytology report Cyto stain.thin prep Doc (Cvx/Vag) Comment [facility] Comment on above: This liquid based Th inPrep(R) pap test was screened with the use of an image guided system. Diagnosis ICD code [Identifier] Comment [facility] Comment on above: Z12.4 HPV 16+18+31+33+35+39+45+5 1+52+56+58+59+66+68 DNA Probe+sig amp Ql (Cvx) Negative Negative [facility] Comment on above: This nucleic acid am plification test detects fourteen high- risk HPV types (16,18,31,33,35,39,45,51,52,56,58,59,66,68) without differentiation. HPV Genotype Reflex Comment [facility] Comment on above: Criteria not met, HP V Genotype not performed. Microscopic observation Other stain Nom (Unsp spec) . [facility] Note: Comment [facility] Comment on above: The Pap smear is a s creening test designed to aid in the detection of premalignant and malignant conditions of the uterine cervix. It is not a diagnostic procedure and should not be used as the sole means of detecting cervical cancer. Both false-positive and false-negative reports do occur. Statement of adequacy Cyto stain (Cvx/Vag) [Interp] Comment [facility] Comment on above: Satisfactory for saniya luation. Endocervical and/or squamous metaplastic cells (endocervical component) are present. Performed at: - [facility] [id number] Meter Tester: Moon Tan MD, Phone: [phone] Performed at: - [facility] [id number] Meter Tester: Moon Tan MD, Phone: [phone] Specimen Comment: Source.............Cervix Specimen Comment: LMP / Prev Treat...[id number]=[id number] Specimen Comment: No. of containers..01 [facility] Cervical or vaginal smear or scraping studyOrdered By: Teresa Weber on 01-11-2024 [facility] GENITAL CULTUREon 01-03-2024 GENITAL CULTURE MICROBIOLOGY REPORT [facility], [address] [place] [address], [id number] PATIENT: DEVORAH SHELTON LOCATION: : 1995 AGE: 28 SEX: F ADM: 01/03/24 Att. Physician: JELLY CHERY Order Id: [id number] Req. Physician: ALPA PORTER Source: vagina Site: genital Collected: 01/03/24 16:08 Current Antibiotics: none Antibiotics comment: - Evan Jarrell M M E N T S post [...] Smear consistent with Normal Vaginal Lenka. Normal [facility] UA W/O MICROSCOPICon 024 BILIRUBIN, URINE Negative Normal NEGATIVE [facility] Comment on above: Performed By: #### W UA #### [facility] [address] [address] CHARACTER Clear Normal CLEAR-SL CLOUD [place] [facility] Comment on above: Performed By: #### W UA #### [address] [place] [address] Color (U) Yellow Normal STRAW-YELL OW [facility] Comment on above: Performed By: #### W UA #### [address] [place] [address] Glucose Ql (U) Negative Normal NEGATIVE [facility] Comment on above: Performed By: #### W UA #### [address] [place] [address] Hemoglobin Ql (U) Negative Normal NEGATIVE [facility] Comment on above: Performed By: #### W UA #### [address] [place] [address] Ketones Ql (U) Negative Normal NEGATIVE [facility] Comment on above: Performed By: #### W UA #### [facility] [address] [address] LEUKOCYTES Negative Normal NEGATIVE [facility] Comment on above: Performed By: #### W UA #### [facility] [address] [address] Nitrite Ql (U) Negative Normal NEGATIVE [facility] Comment on above: Performed By: #### W UA #### [facility] [address] [address] pH (U) 7.00 [pH] Normal 5.0-9.0 [facility] Comment on above: Performed By: #### W UA #### [address] [address] Protein Ql (U) Negative Normal NEGATIVE [facility] Comment on above: Performed By: #### W UA #### [address] [address] Specific gravity (U) [Rel density] 1.015 Normal 1.002-1.03 0 [facility] Comment on above: Performed By: #### W UA #### [address] [address] Urobilinogen Qn (U) 0.20 {James'U}/dL Normal 0.2-1.0 [facility] Comment on above: Performed By: #### W UA #### [facility] [address] [address] Laboratory - Chemistry and C hemistry - challengeon 11-18-2023 Bilirubin Ql (U) Negative [facility] Glucose (U) [Mass/Vol] Negative [facility] Ketones Ql (U) Positive [facility] pH (U) 6.0 [pH] [facility] Specific gravity (U) [Rel density] 1.010 [facility] Urobilinogen (U) [Mass/Vol] 0.2 mg/dL [facility] Laboratory - Microbiology an d Antimicrobial susceptibilityOrdered By: Georgie Guerrier on 11-18-2023 N. gonorrhoeae DNA CRYSTAL+probe Ql (Unsp spec) Negative Negative [facility] Comment on above: Performed at: =[address] [id number] Director: Moon Tan MD, Phone: [phone] Laboratory - Specimen inform ationon 11-18-2023 Appearance (U) clear [facility] Color (U) paleyellow [facility] Laboratory - Urinalysison Leukocyte esterase Test strip Ql (U) Negative [facility] Nitrite Ql (U) Negative [facility] Protein Ql (U) Positive [facility] No Panel Informationon 11-17 Urine Occult Blood Negative [facility] No Panel InformationOrdered By: Georgie Guerrier on 11-18-2023 Zabrina albicans (CRYSTAL) Negative Negative [facility] Comment on above: This test was develo ped and its performance characteristicsdetermined by [employer]. It has not been cleared orapproved by the Food and Drug Administration. Zabrina glabrata (CRYSTAL) Negative Negative [facility] Comment on above: This test was develo ped and its performance characteristicsdetermined by [employer]. It has not been cleared orapproved by the Food and Drug Administration. Chlamydia trachomatis (CRYSTAL) (LAB) Negative Negative [facility] Trichomonas vaginalis (CRYSTAL) Negative Negative [facility] Urine Cultureon 11-18-2023 Bacteria identified Cx Nom (U) 75,000 colonies/ml mixed bacterial skin contaminants 2 Days PERFORMED BY: [place] [address] PATHOLOGIST DIRECTOR GLOBAL DEVELOPMENT NAINA NEWMAN M.D. Normal [facility] Comment on above: Performed By: #### V AGINITIS+ #### [facility] , #### CUU #### [address] Urine culture routineOrdered By: Georgie Guerrier on 11-18-2023 Bacteria identified Cx Nom (U) 2 Days [facility] Vaginal fluid Atopobium vagi holley DNA detection by probe and target amplification methoOrdered By: Georgie Guerrier on 11-18-2023 A. vaginae DNA CRYSTAL+probe Ql (Vag fld) Low - 0 Score . [facility] Comment on above: This test was develo ped and its performance characteristicsdetermined by [facility]. It has not been cleared orapproved by the Food and Drug Administration. Vaginal fluid Megasphaera sp ecies type 1 DNA detection by probe and target amplificatOrdered By: Georgie Guerrier on 11-18-2023 Megasphaera sp type 1 DNA CRYSTAL+probe Ql (Vag fld) Low - 0 Score . [facility] Comment on above: This test [...] (Vag fld) Low - 0 Score . [facility] Comment on above: This test was develo ped and its performance characteristicsdetermined by [facility]. It has not been cleared orapproved by the Food and Drug Administration. Vaginitis Plus (VG+)on 11-17 Atopobium Vaginae Low - 0 Normal . [facility] Comment on above: Result Comment: This test was developed and its performance characteristics determined by [facility]. It has not been cleared or approved by the Food and Drug Administration. Performed By: #### V AGINITIS+ #### [facility] , #### CUU #### [address] BVAB2 Low - 0 Normal . [facility] Comment on above: Result Comment: This test was developed and its performance characteristics determined by [facility]. It has not been cleared or approved by the Food and Drug Administration. Performed By: #### V AGINITIS+ #### [facility] , #### CUU #### [address] Zabrina Albicans, CRYSTAL Negative Normal Negative [facility] Comment on above: Result Comment: This test was developed and its performance characteristics determined by [facility]. It has not been cleared or approved by the Food and Drug Administration. Performed By: #### V AGINITIS+ #### [facility] , #### CUU #### [address] Zabrina Glabrata, CRYSTAL Negative Normal Negative [facility] Comment on above: Result Comment: This test was developed and its performance characteristics determined by [facility]. It has not been cleared or approved by the Food and Drug Administration. PERFORMED BY: [place] [address] PATHOLOGIST DIRECTOR GLOBAL DEVELOPMENT NAINA NEWMAN M.D. Performed By: #### V AGINITIS+ #### [facility] , #### CUU #### [address] Chlamydia Trachomotis, CRYSTAL Negative Normal Negative [facility] Comment on above: Performed By: #### V AGINITIS+ #### [facility] , #### CUU #### [address] Megasphaera Low - 0 Normal . [facility] Comment on above: Result Comment: [...] AGINITIS+ #### [facility] , #### CUU #### [address] Neisseria Gonorrhoeae, CRYSTAL Negative Normal Negative [facility] Comment on above: Result Comment: Perf ormed at: =G - [facility] [address] [id number] Meter Tester: Moon Tan MD, Phone: [phone] Performed By: #### V AGINITIS+ #### [facility] , #### CUU #### [address] Tric Vag CRYSTAL Negative Normal Negative [facility] Comment on above: Performed By: #### V AGINITIS+ #### [facility] , #### CUU #### [address] XR FOOT 3+ VIEWS RIGHTon [...] 3V*on 024 XR hand RT min 3V* [facility] Main [place] [address] [place] [address] XRay Report Signed Patient: Devorah Shelton MR#: [id number] : 1995 Acct:[id number] Age/Sex: 28 / F ADM Date: 09/29/23 Loc: [id number] Room: Type: [facility] Attending Dr: Belia Aguero PA-C Copies to: PARADISE Saavedra Ordering Provider: PARADISE [...] Liliana Goyal M.D.09/29/2023 11:30 AM Dictation Location: [place] [address] Transcribed By: [facility] 09/29/23 1130 Dictated By: Liliana Goyal MD 09/29/23 1128 Signed By: 09/29/23 1130 Normal [facility] Automated basophil %Ordered By: Simone Bahena on 07-27-2023 Basophils/100 WBC (Bld) 0.5 % Normal . [facility] Comment on above: Performed By: #### C BC, CRP, ESR #### [address] Automated basophil countOrde red By: Simone Bahena on 07-27-2023 Basophils (Bld) [#/Vol] 0.0 10*3/uL Normal 0.0-0.2 [facility] Comment on above: Performed By: #### C BC, CRP, ESR #### [address] Automated blood monocyte cou ntOrdered By: Simone Bahena on 07-27-2023 Monocytes (Bld) [#/Vol] 0.8 10*3/uL Normal 0.0-0.8 [facility] Comment on above: Performed By: #### C BC, CRP, ESR #### [address] Automated eosinophil %Ordere d By: Simone Bahena on 07-27-2023 Eosinophils/100 WBC (Bld) 1.0 % Normal . [facility] Comment on above: Performed By: #### C BC, CRP, ESR #### [address] Automated eosinophil countOr dered By: Simone Bahena on 07-27-2023 Eosinophils (Bld) [#/Vol] 0.1 10*3/uL Normal 0.0-0.45 [facility] Comment on above: Performed By: #### C BC, CRP, ESR #### [address] Automated monocyte %Ordered By: Simone Bahena on 07-27-2023 Monocytes/100 WBC (Bld) 8.2 % Normal . [facility] Comment on above: Performed By: #### C BC, CRP, ESR #### [address] Automated neutrophil %Ordere d By: Simone Bahena on 07-27-2023 Neutrophils/100 WBC (Bld) 62.4 % Normal . [facility] Comment on above: Performed By: #### C BC, CRP, ESR #### [address] C reactive protein [Mass/vol ume] in Serum or PlasmaOrdered By: Simone Bahena on 07-27-2023 CRP [Mass/Vol] 1.7 mg/dL 0.0-0.5 [facility] C-Reactive Proteinon 024 C-Reactive Protein 1.7 mg/dL High 0.0-0.5 [facility] Comment on above: Result Comment: PERF ORMED BY: [place] [address] PATHOLOGIST DIRECTOR GLOBAL DEVELOPMENT NAINA NEWMAN M.D. Performed By: #### C BC, CRP, ESR #### [address] Complete Blood Count Auto Di ffon 07-27-2023 Mean Corpuscular HGB Conc 34.0 g/dL Normal 32.0-35.0 [facility] Comment on above: Performed By: #### C BC, CRP, ESR #### [address] NRBC% 0.1 /100{WBC} Normal 0-0.5 [facility] Comment on above: Performed By: #### C BC, CRP, ESR #### [address] Erythrocyte Sedimentation Ra aishwarya 07-27-2023 ESR (Bld) [Velocity] 14 mm/h Normal 0-19 [facility] Comment on above: Result Comment: PERF ORMED BY: [place] [address] PATHOLOGIST DIRECTOR GLOBAL DEVELOPMENT NAINA NEWMAN M.D. Performed By: #### C BC, CRP, ESR #### [address] Erythrocyte distribution wid th [Ratio] by Automated countOrdered By: Simone Bahena on 07-27-2023 Erythrocyte distribution width (RBC) [Ratio] 12.8 % Normal 11.9-15.3 [facility] Comment on above: Performed By: #### C BC, CRP, ESR #### [address] Erythrocyte sedimentation ra te by Photometric methodOrdered By: Simone Bahena on 07-27-2023 ESR Photometric method (Bld) [Velocity] 14 mm/hr 0-19 [facility] Erythrocytes [#/volume] in B lood by Automated countOrdered By: Simone Bahena on 07-27-2023 RBC (Bld) [#/Vol] 4.14 10*6/uL Normal 3.60-5.00 [facility] Comment on above: Performed By: #### C BC, CRP, ESR #### [address] Hematocrit [Volume Fraction] of Blood by Automated countOrdered By: Simone Bahena on 07-27-2023 Hematocrit (Bld) [Volume fraction] 39.0 % Normal 34.0-46.4 [facility] Comment on above: Performed By: #### C BC, CRP, ESR #### [address] Hemoglobin [Mass/volume] in BloodOrdered By: Simone Bahena on 07-27-2023 Hemoglobin (Bld) [Mass/Vol] 13.3 g/dL Normal 11.8-15.4 [facility] Comment on above: Performed By: #### C BC, CRP, ESR #### [address] Leukocytes [#/volume] correc betty for nucleated erythrocytes in Blood by Automated counOrdered By: Simone Bahena on 07-27-2023 WBC corrected for nucl RBC Auto (Bld) [#/Vol] 9.4 10*3/uL 3.8-11.6 [facility] Leukocytes [#/volume] in Blo od by Automated countOrdered By: Simone Bahena on 07-27-2023 WBC (Bld) [#/Vol] 9.4 10*3/uL Normal 3.8-11.6 [facility] Comment on above: Performed By: #### C BC, CRP, ESR #### [address] Lymphocytes [#/volume] in Bl ood by Automated countOrdered By: Simone Bahena on 07-27-2023 Lymphocytes (Bld) [#/Vol] 2.6 10*3/uL Normal 1.00-4.8 [facility] Comment on above: Performed By: #### C BC, CRP, ESR #### [address] Lymphocytes/100 leukocytes i n Blood by Automated countOrdered By: Simone Bahena on 07-27-2023 Lymphocytes/100 WBC (Bld) 27.9 % Normal . [facility] Comment on above: Performed By: #### C BC, CRP, ESR #### [address] MCH [Entitic mass] by Automa betty countOrdered By: Simone Bahena on 07-27-2023 MCH (RBC) [Entitic mass] 32.0 pg Normal 24.7-34.3 [facility] Comment on above: Performed By: #### C BC, CRP, ESR #### [address] MCHC Auto (RBC) [Mass/Vol]Or dered By: Simone Bahena on 07-27-2023 MCHC (RBC) [Mass/Vol] 34.0 g/dL 32.0-35.0 [facility] MCV [Entitic volume] by Auto mated countOrdered By: Simone Bahena on 07-27-2023 MCV (RBC) [Entitic vol] 94.2 fL Normal 80-100 [facility] Comment on above: Performed By: #### C BC, CRP, ESR #### [address] Neutrophils [#/volume] in Bl ood by Automated countOrdered By: Simone Bahena on 07-27-2023 Neutrophils (Bld) [#/Vol] 5.8 10*3/uL Normal 1.8-7.7 [facility] Comment on above: Performed By: #### C BC, CRP, ESR #### [address] Nucleated erythrocytes [Pres ence] in Blood by Automated countOrdered By: Simone Bahena on 07-27-2023 Nucleated RBC Auto Ql (Bld) 0.1 /100{WBC} 0-0.5 [facility] Platelet mean volume [Entiti c volume] in Blood by Automated countOrdered By: Simone Bahena on 07-27-2023 Platelet mean volume (Bld) [Entitic vol] 7.7 fL Normal 6.3-10.7 [facility] Comment on above: Performed By: #### C BC, CRP, ESR #### [address] Platelets [#/volume] in Bloo d by Automated countOrdered By: Simone Bahena on 07-27-2023 Platelets (Bld) [#/Vol] 294 10*3/uL Normal 150-450 [facility] Comment on above: Performed By: #### C BC, CRP, ESR #### [address] MR HAND RIGHT W AND [...] No Panel Informationon 07-05 INFLUENZA A Negative [facility] INFLUENZA B Negative [facility] Interpretation and review of laboratory results Normal [facility] S. pyogenes DNA CRYSTAL+probe No m (Unsp spec)on 07-05-2023 Interpretation and review of laboratory results Normal [facility] Healthcare RESULT Negative [facility] CNOVon 06-29-2023 CNOV Office Visit (PLASMN ) ----- DEVORAH SHELTON ([id number]) 1995 F Date Time Provider Department 06/29/23 3:40 PM MIGUEL ANG During your visit today, we recorded the following information about you: Temperature Pulse Blood pressure 97.3 degrees 68/minute 121/67 Miguel Ang PA-C 06/30/2023 8:33 AM Signed PLASTIC SURGERY DEPARTMENT [facility] Hand Surgery Note [] New referred by []self []physician.......... [] Follow-up CC: ..right hand pain............ ? HPI: Devorah is a 28 year old female who presnets after being bit by a dog in February 2023. Reports was bit at the [facility] and has never healed correctly. Patient also suffered infection of the right hand following a dog bite which she was treated with antibiotics. She reported that the infection started to move up the arm past the wrist. 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 Dominant Hand: [...] by m (more content not included)... Normal [facility] No Panel Informationon 06-29 [facility] XR HAND 3V PA/LAT/OBL RTon 0 06-29-2023 [...] DEFORMITY, AN EROSION, OR SEQUELA OF OSTEOMYELITIS. 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 Transcribe Date/Time: Jun 29 2023 4:42P Dictated by : MAXINE RUBI MD This examination was interpreted and the report reviewed and electronically signed by: MAXINE RUBI MD on Jun 29 2023 4:45PM EST [id number] Normal [facility] Alanine aminotransferase [En zymatic activity/volume] in Serum or PlasmaOrdered By: Susie Johnson on 04-03-2023 ALT [Catalytic activity/Vol] 15 U/L Normal 7-52 [facility] Comment on above: Performed By: #### H EPATIC #### [address] Albumin [Mass/volume] in Ser um or Plasma by Bromocresol green (BCG) dye binding methoOrdered By: Susie Johnson on 04-03-2023 Albumin BCG dye [Mass/Vol] 4.2 g/dL 3.5-5.7 [facility] Alkaline phosphatase [Enzyma tic activity/volume] in Serum or PlasmaOrdered By: Susie Johnson on 04-03-2023 ALP [Catalytic activity/Vol] 104 U/L Normal 34-104 [facility] Comment on above: Result Comment: PERF ORMED BY: [place] [address] PATHOLOGIST DIRECTOR GLOBAL DEVELOPMENT NAINA NEWMAN M.D. Performed By: #### H EPATIC #### [address] Aspartate aminotransferase [ Enzymatic activity/volume] in Serum or PlasmaOrdered By: Susie Risaliti on 04-03-2023 AST [Catalytic activity/Vol] 15 U/L Normal 13-39 [facility] Comment on above: Performed By: #### H EPATIC #### [address] Bilirubin.direct [Mass/volum e] in Serum or PlasmaOrdered By: Susie Risaliti on 04-03-2023 Bilirubin.direct [Mass/Vol] 0.10 mg/dL 0.03-0.18 [facility] Bilirubin.total [Mass/volume ] in Serum or PlasmaOrdered By: Susie Risaliti on 04-03-2023 Bilirubin [Mass/Vol] 0.8 mg/dL Normal 0.3-1.0 [facility] Comment on above: Performed By: #### H EPATIC #### [address] Hepatic Panelon 04-03-2023 Albumin [Mass/Vol] 4.2 g/dL Normal 3.5-5.7 [facility] Comment on above: Performed By: #### H EPATIC #### [address] Bilirubin,Indirect 0.7 mg/dL Normal [facility] Comment on above: Performed By: #### H EPATIC #### [address] Bilirubin.indirect [Mass/Vol] 0.10 mg/dL Normal 0.03-0.18 [facility] Comment on above: Performed By: #### H EPATIC #### [address] Protein [Mass/volume] in Ser um or PlasmaOrdered By: Susie Risaliti on 04-03-2023 Protein [Mass/Vol] 6.8 g/dL Normal 6.4-8.9 [facility] Comment on above: Performed By: #### H EPATIC #### [facility] [address] Serum globulin measurement b y calculation (mass/volume)Ordered By: Susie Johnson on 04-03-2023 Globulin (S) [Mass/Vol] 2.6 g/dL Normal [facility] Comment on above: Performed By: #### H EPATIC #### [facility] [address] [place] [address] Serum or plasma albumin/glob ulin mass ratioOrdered By: Susie Johnson on 04-03-2023 Albumin/Globulin [Mass ratio] 1.6 {ratio} [facility] Comment on above: Performed By: #### H EPATIC #### [facility] [address] [place] [address] Serum or plasma non-glucuron idated bilirubin measurement (mass/volume)Ordered By: Susie Johnson on 04-03-2023 Bilirubin.indirect [Mass/Vol] 0.7 mg/dL [facility] Follow-Upon 02-24-2023 Follow-Up [id number] Jimenez Shelton tlarchana 1995 F Date Provider Department Center 02/24/2023 MARISA GARCIA MP ORTHO MPORTHO Family History Family history unknown: Yes Level of Service:75608 HI OFFICE/OUTPATIENT ESTABLISHED SF MDM 10-19 MIN () Reason for Visit and Comments: Follow-up [471053] [facility] Office Visiton 02-17-2023 Follow-up visit [id number] Jimenez Shelton tlyn 1995 F Date Provider Department Center 02/17/2023 JAISON ARAGON MP ORTHO MPORTHO Family History Family history unknown: Yes Level of Service:55356 HI OFFICE/OUTPATIENT NEW LOW MDM 30-44 MINUTES Reason for Visit and Comments: Numbness [75] Normal [facility] XR Hand Complete Left*on XR Hand Complete Left* Findings: No fracture, dislocation, bone lesion. Joint spaces are maintained. IMPRESSION: Negative left hand. 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 Joint spaces maintained. IMPRESSION: Negative right hand. Report reported and signed by Rylan Pepe on 09/30/2022 0744 Normal [facility] Cigarette Machine Operator MICRO OTHER TESTSOrdered By: Kashif Bolaños on [...] 89 mg/dL Normal 55 - 199 mg/dL [facility] Potassium [Moles/Vol] 3.7 mmol/L Normal 3.5 - 5.3 mmol/L [facility] Sodium [Moles/Vol] 135 mmol/L Normal 135 - 145 mmol/L [facility] Urea nitrogen [Mass/Vol] 20 mg/dL Normal 5 - 21 mg/dL [facility] Urea nitrogen/Creatinine [Mass ratio] 22 mg/mg High 10 - 20 [facility] HEMATOLOGYOrdered By: SYSTEM SYSTEM on 07-19-2022 [...] 5.0 E12/L Normal 4.3 - 5.9 E12/L [facility] WBC corrected for nucl RBC Auto (Bld) [#/Vol] 11.5 E9/L High 4.0 - 11.0 E9/L [facility] HemeAutoSS SEROLOGYOrdered By: Kashif Soto rtolasio on 07-19-2022 Heterophile Ab LA Ql (S) Negative (07/19/22 10:10 PM) Normal Negative [facility] Man Sero CHEMISTRYOrdered By: SYSTEM SYSTEM on 07-08-2022 Anion gap [Moles/Vol] 12 mmol/L Normal 6 - 16 mEq/L [facility] Calcium [Mass/Vol] 8.6 mg/dL Low 8.9 - 11. 1 mg/dL [facility] Chloride [Moles/Vol] 103 mmol/L Normal 101 - 1 11 mmol/L [facility] CO2 [Moles/Vol] 27 mmol/L Normal 21 - 31 mmol/L [facility] Creatinine [Mass/Vol] 0.7 mg/dL Normal 0.5 - 1.3 mg/dL [facility] GFR/1.73 sq M.predicted among blacks MDRD (S/P/Bld) [Vol rate/Area] mL/min/1.73 m2 Normal >=59mL/min /1.73 m2 [facility] Chem S GFR/1.73 sq M.predicted among non-blacks MDRD (S/P/Bld) [Vol rate/Area] mL/min/1.73 m2 Normal >=59mL/min /1.73 m2 [facility] Chem S Glucose [Mass/Vol] 94 mg/dL Normal 55 - 199 mg/dL [facility] Potassium [Moles/Vol] 3.4 mmol/L Low 3.5 - 5.3 mmol/L [facility] Sodium [Moles/Vol] 139 mmol/L Normal 135 - 145 mmol/L [facility] Urea nitrogen [Mass/Vol] 14 mg/dL Normal 5 - 21 mg/dL [facility] Remisol Urea nitrogen/Creatinine [Mass ratio] 20 mg/mg Normal 10 - 20 [facility] Remisol Quick Strepon 06-23-2022 S. pyogenes Org specific cx Ql (Throat) Positive [facility] Other Quick Strep [facility] Other Quick Strepon 04-16-2022 S. pyogenes Org specific cx Ql (Throat) Positive [facility] Other Quick Strep [facility] Other CBC AUTO DIFFon 03-22-2022 BASO # 0.1 103/ul Normal 0.0-0.1 [facility] Comment on above: Performed By: #### C BC #### [facility] [address] [place] [address] Dr. Adalberto Dimas Basophils/100 WBC (Bld) 0.2 % Normal 0.2-2.0 [facility] Comment on above: Performed By: #### C BC #### [facility] [address] [place] [address] Dr. Adalberto Dimas EO # 0.0 103/ul Normal 0.0-0.7 [facility] Comment on above: Performed By: #### C BC #### [facility] [address] [place] [address] [address] Adalberto Dimas Eosinophils/100 WBC (Bld) 0.2 % Critically low 0.9-7.0 [facility] Comment on above: Performed By: #### C BC #### [facility] [address] [place] [address] Dr. Adalberto Dimas Erythrocyte distribution width (RBC) [Ratio] 12.0 % Normal 11.0-15.0 [facility] Comment on above: Performed By: #### C BC #### [facility] [address] [place] [address] Dr. Adalberto Dimas Hematocrit (Bld) [Volume fraction] 39.5 % Normal 36.0-48.0 [facility] Comment on above: Performed By: #### C BC #### [facility] [address] [place] [address] [address] Adalberto Dimas Hemoglobin (Bld) [Mass/Vol] 13.9 g/dL Normal 12.0-16.0 [facility] Comment on above: Performed By: #### C BC #### [facility] [address] [place] [address] Dr. Adalberto Dimas IG # 0.08 10e3/ul Critically high 0.00-0.03 [facility] Comment on above: Performed By: #### C BC #### [facility] [address] [place] [address] Dr. Adalberto Dimas IG % 0.4 % Normal 0.0-0.5 [facility] Comment on above: Performed By: #### C BC #### [facility] [address] [place] [address] Dr. Adalberto Dimas LYMPH # 1.7 103/ul Normal 1.2-3.8 [facility] Comment on above: Performed By: #### C BC #### [facility] [address] [place] [address] Dr. Adalberto Dimas Lymphocytes/100 WBC (Bld) 7.6 % Critically low 20.5-60.0 [facility] Comment on above: Performed By: #### C BC #### [facility] [address] [place] [address] Dr. Adalberto Dimas MANUAL DIFF REQ NO Normal [facility] Comment on above: Performed By: #### C BC #### [facility] [address] [place] [address] Dr. Adalberto Dimas MCH (RBC) [Entitic mass] 32.5 pg Normal 26.7-34.0 [facility] Comment on above: Performed By: #### C BC #### [facility] [address] [place] [address] Dr. Adalberto Dimas MCHC (RBC) [Mass/Vol] 35.2 g/dL Normal 29.9-35.2 [facility] Comment on above: Performed By: #### C BC #### [facility] [id number] Adalberto Dimas MCV (RBC) [Entitic vol] 92.3 fL Normal 81.0-99.0 [facility] Comment on above: Performed By: #### C BC #### [facility] [address] [address] [address] Adalberto Dimas MONO # 1.4 103/ul Critically high 0.3-0.8 [facility] Comment on above: Performed By: #### C BC #### [facility] [address] [place] [address] [address] Adalberto Dimas Monocytes/100 WBC (Bld) 6.3 % Normal 1.7-12.0 [facility] Comment on above: Performed By: #### C BC #### [facility] [address] [place] [address] Dr. Adalberto Dimas NEUT # 18.8 103/ul Critically high 1.4-6.5 [facility] Comment on above: Performed By: #### C BC #### [facility] [address] [place] [address] Dr. Adalberto Dimas Neutrophils/100 WBC (Bld) 85.3 % Critically high 43.0-75.0 [facility] Comment on above: Performed By: #### C BC #### [facility] [address] [place] [address] Dr. Adalberto Dimas Platelet mean volume (Bld) [Entitic vol] 9.1 fL Critically low 9.5-13.5 [facility] Comment on above: Performed By: #### C BC #### [facility] [address] [place] [address] Dr. Adalberto Dimas PLT 267 103/ul Normal 150-450 [facility] Comment on above: Performed By: #### C BC #### [facility] [address] [place] [address] Dr. Adalberto Dimas RBC 4.28 106/ul Normal 4.20-5.40 [facility] Comment on above: Performed By: #### C BC #### [facility] [address] [place] [address] Dr. Adalberto Dimas WBC 22.0 103/ul Critically high 4.0-11.0 [facility] Comment on above: Performed By: #### C BC #### [facility] [address] [place] [address] Dr. Adalberto Dimas PROF 14(COMP METB)on 03-22- 022 Albumin [Mass/Vol] 3.8 g/dL Normal 3.4-5.0 [facility] Comment on above: Performed By: #### C MP #### [facility] [address] [place] [address] Dr. Adalberto Dimas Albumin/Globulin [Mass ratio] 1.0 {ratio} Normal [facility] Comment on above: Performed By: #### C MP #### [facility] [address] [place] [address] Dr. Adalberto Dimas ALP [Catalytic activity/Vol] 97 U/L Normal 46-116 [facility] Comment on above: Performed By: #### C MP #### [facility] [address] [place] [address] Dr. Adalberto Dimas ALT [Catalytic activity/Vol] 17 U/L Normal 14-59 [facility] Comment on above: Performed By: #### C MP #### [facility] [address] [place] [address] Dr. Adalberto Dimas Anion gap [Moles/Vol] 12.5 mmol/L Normal [facility] Comment on above: Performed By: #### C MP #### [facility] [address] [place] [address] Dr. Adalberto Dimas AST [Catalytic activity/Vol] 12 U/L Critically low 15-37 [facility] Comment on above: Performed By: #### C MP #### [facility] [address] [place] [address] Dr. Adalberto Dimas Bilirubin [Mass/Vol] 2.9 mg/dL Critically high 0.2-1.0 [facility] Comment on above: Performed By: #### C MP #### [facility] [address] [place] [address] Dr. Adalberto Dimas Calcium [Mass/Vol] 8.7 mg/dL Normal 8.5-10.[address] [facility] Comment on above: Performed By: #### C MP #### [facility] [address] [place] [address] Dr. Adalberto Dimas Chloride [Moles/Vol] 101 mmol/L Normal 98-107 [facility] Comment on above: Performed By: #### C MP #### [facility] [address] [address] [address] Adalberto Dimas CO2 [Moles/Vol] 27.0 mmol/L Normal 21.0-32.0 [facility] Comment on above: Performed By: #### C MP #### [facility] [address] [place] [address] Dr. Adalberto Dimas Creatinine [Mass/Vol] 0.87 mg/dL Normal 0.55-1.02 [facility] Comment on above: Performed By: #### C MP #### [facility] [address] [place] [address] Dr. Adalberto Dimas EGFR-AF BELARUSIAN >60 Normal >=60 [facility] Comment on above: Performed By: #### C MP #### [facility] [address] [place] [address] Dr. Adalberto Dimas EGFR-NON AF BELARUSIAN >60 Normal >=60 [facility] Comment on above: Performed By: #### C MP #### [facility] [address] [place] [address] Dr. Adalberto Dimas Globulin (S) [Mass/Vol] 3.9 g/dL Normal [facility] Comment on above: Performed By: #### C MP #### [facility] [address] [address] [address] Adalberto Dimas Glucose [Mass/Vol] 105 mg/dL Normal 74-[address] [facility] Comment on above: Performed By: #### C MP #### [facility] [address] [place] [address] Dr. Adalberto Dimas Potassium [Moles/Vol] 3.5 mmol/L Normal 3.5-5.1 [facility] Comment on above: Performed By: #### C MP #### [facility] [address] [address] [address] Adalberto Dimas Protein [Mass/Vol] 7.7 g/dL Normal 6.4-8.2 [facility] Comment on above: Performed By: #### C MP #### [facility] [address] [address] [address] Adalberto Dimas Sodium [Moles/Vol] 137 mmol/L Normal 136-145 [facility] Comment on above: Performed By: #### C MP #### [facility] [address] [address] [address] Adalberto Dimas Urea nitrogen [Mass/Vol] 15.0 mg/dL Normal 7.0-18.0 [facility] Comment on above: Performed By: #### C MP #### [facility] [address] [address] [address] Adalberto Dimas Urea nitrogen/Creatinine [Mass ratio] 17.2 mg/mg Normal [facility] Comment on above: Performed By: #### C MP #### [facility] [address] [address] [address] Adalberto Dimas XR NECK SOFT TISSUEon [...] [place] Date: 2022-03-22 01:19 Normal [facility] Quick Strepon 03-21-2022 S. pyogenes Org specific cx Ql (Throat) Positive [facility] Other Quick Strep [facility] Other CBC AUTO DIFFon 11-17-2021 BASO # 0.0 103/ul Normal 0.0-0.1 [facility] Comment on above: Performed By: #### C BC #### [facility] [address] [place] [address] Dr. Adalberto Dimas Basophils/100 WBC (Bld) 0.3 % Normal 0.2-2.0 [facility] Comment on above: Performed By: #### C BC #### [facility] [address] [place] [address] Dr. Adalberto Dimas EO # 0.1 103/ul Normal 0.0-0.7 [facility] Comment on above: Performed By: #### C BC #### [facility] [address] [place] [address] Dr. Adalberto Dimas Eosinophils/100 WBC (Bld) 0.4 % Critically low 0.9-7.0 [facility] Comment on above: Performed By: #### C BC #### [facility] [address] [place] [address] Dr. Adalberto Dimas Erythrocyte distribution width (RBC) [Ratio] 12.2 % Normal 11.0-15.0 [facility] Comment on above: Performed By: #### C BC #### [facility] [address] [place] [address] Dr. Adalberto Dimas Hematocrit (Bld) [Volume fraction] 41.7 % Normal 36.0-48.0 [facility] Comment on above: Performed By: #### C BC #### [facility] [address] [place] [address] Dr. Adalberto Dimas Hemoglobin (Bld) [Mass/Vol] 14.1 g/dL Normal 12.0-16.0 [facility] Comment on above: Performed By: #### C BC #### [facility] [address] [place] [address] Dr. Adalberto Dimas IG # 0.02 10e3/ul Normal 0.00-0.03 [facility] Comment on above: Performed By: #### C BC #### [facility] [address] [place] [address] Dr. Adalberto Dimas IG % 0.2 % Normal 0.0-0.5 [facility] Comment on above: Performed By: #### C BC #### [facility] [address] [place] [address] Dr. Adalberto Dimas LYMPH # 1.8 103/ul Normal 1.2-3.8 [facility] Comment on above: Performed By: #### C BC #### [facility] [address] [place] [address] Dr. Adalberto Dimas Lymphocytes/100 WBC (Bld) 15.3 % Critically low 20.5-60.0 [facility] Comment on above: Performed By: #### C BC #### [facility] [address] [place] [address] Dr. Adalberto Dimas MANUAL DIFF REQ NO Normal [facility] Comment on above: Performed By: #### C BC #### [facility] [address] [place] [address] Dr. Adalberto Dimas MCH (RBC) [Entitic mass] 31.8 pg Normal 26.7-34.0 [facility] Comment on above: Performed By: #### C BC #### [facility] [address] [place] [address] Dr. Adalberto Dimas MCHC (RBC) [Mass/Vol] 33.8 g/dL Normal 29.9-35.2 [facility] Comment on above: Performed By: #### C BC #### [facility] [address] [place] [address] Dr. Adalberto Dimas MCV (RBC) [Entitic vol] 93.9 fL Normal 81.0-99.0 [facility] Comment on above: Performed By: #### C BC #### [facility] [address] [place] [address] Dr. Adalberto Dimas MONO # 1.1 103/ul Critically high 0.3-0.8 [facility] Comment on above: Performed By: #### C BC #### [facility] [address] [place] [address] Dr. Adalberto Dimas Monocytes/100 WBC (Bld) 9.0 % Normal 1.7-12.0 [facility] Comment on above: Performed By: #### C BC #### [facility] [address] [place] [address] Dr. Adalberto Dimas NEUT # 8.7 103/ul Critically high 1.4-6.5 [facility] Comment on above: Performed By: #### C BC #### [facility] [address] [place] [address] Dr. Adalberto Dimas Neutrophils/100 WBC (Bld) 74.8 % Normal 43.0-75.0 [facility] Comment on above: Performed By: #### C BC #### [facility] [address] [place] [address] Dr. Adalberto Dimas Platelet mean volume (Bld) [Entitic vol] 9.3 fL Critically low 9.5-13.5 [facility] Comment on above: Performed By: #### C BC #### [facility] [address] [place] [address] Dr. Adalberto Dimas PLT 262 103/ul Normal 150-450 [facility] Comment on above: Performed By: #### C BC #### [facility] [address] [place] [address] Dr. Adalberto Dimas RBC 4.44 106/ul Normal 4.20-5.40 [facility] Comment on above: Performed By: #### C BC #### [facility] [address] [place] [address] Dr. Adalberto Dimas WBC 11.6 103/ul Critically high 4.0-11.0 [facility] Comment on above: Performed By: #### C BC #### [facility] [address] [place] [address] Dr. Adalberto Dimas ER URINE PROFILEon 2 Bilirubin Ql (U) Negative Normal NEGATIVE [facility] Comment on above: Performed By: #### DARYL EDWARDSRO #### [facility] [address] [place] [address] Dr. Adalberto Dimas Clarity (U) CLEAR Normal CLEAR [facility] Comment on above: Performed By: #### DARYL EDWARDSRO #### [facility] [address] [place] [address] Dr. Adalberto Dimas Color (U) LT. YELLOW Normal YELLOW [facility] Comment on above: Performed By: #### Gaby FROST UMICRO #### [facility] [address] [place] [address] Dr. Adalberto DIEGO A micrscopic examina tion will be performed if indicated. Normal [facility] Comment on above: Performed By: #### Gaby FROST UMICRO #### [facility] [address] [place] [address] Dr. Adalberto Dimas Glucose Ql (U) Negative Normal NEGATIVE [facility] Comment on above: Performed By: #### Gaby FROST UMICRO #### [facility] [address] [place] [address] Dr. Adalberto Dimas Hemoglobin Ql (U) Negative Normal NEGATIVE [facility] Comment on above: Performed By: #### Gaby FROST UMICRO #### [facility] [address] [place] [address] Dr. Adalberto Dimas Ketones Ql (U) Negative Normal NEGATIVE [facility] Comment on above: Performed By: #### Gaby FROST UMICRO #### [facility] [address] [place] [address] Dr. Adalberto Dimas LEUKOCYTES TRACE Abnormal NEGATIVE [facility] Comment on above: Performed By: #### Gaby FROST UMICRO #### [facility] [address] [place] [address] Dr. Adalberto Dimas Nitrite Ql (U) Negative Normal NEGATIVE [facility] Comment on above: Performed By: #### Gaby FROST UMICRO #### [facility] [address] [place] [address] Dr. Adalberto Dimas pH (U) 7.0 [pH] Normal 5-9 [facility] Comment on above: Performed By: #### Gaby FROST UMICRO #### [facility] [address] [place] [address] Dr. Adalberto Dimas SPEC GRAVITY 1.010 Normal 1.005-<=1. 025 [facility] Comment on above: Performed By: #### Gaby FROST, AZULICRO #### [facility] [address] [place] [address] Dr. Adalberto Dimas UA PROTEIN Negative Normal NEGATIVE/ TRACE [facility] Comment on above: Performed By: #### E AZUL FROSTICRO #### [facility] [address] [address] [address] Adalberto Dimas UR MICRO IND INDICATED Normal [facility] Comment on above: Performed By: #### E DARYL FROSTRO #### [facility] [address] [place] [address] Dr. Adalberto Dimas Urobilinogen Qn (U) 0.2 {James'U}/dL Normal 0.2 - 1. 0 [facility] Comment on above: Performed By: #### DARYL EDWARDSRO #### [facility] [address] [place] [address] Dr. Adalberto Dimas PREG HCG QUALon 11-17-2021 , QUAL Negative Normal NEGATIVE [facility] Comment on above: Performed By: #### P REG #### [facility] [address] [place] [address] Dr. Adalberto Dimas PROF CHEM 8 (BAS METB)on Anion gap [Moles/Vol] 10.0 mmol/L Normal [facility] Comment on above: Performed By: #### B MP #### [facility] [address] [place] [address] Dr. Adalberto Dimas Calcium [Mass/Vol] 8.7 mg/dL Normal 8.5-10.1 [facility] Comment on above: Performed By: #### B MP #### [facility] [address] [place] [address] Dr. Adalberto Dimas Chloride [Moles/Vol] 104 mmol/L Normal 98-107 [facility] Comment on above: Performed By: #### B MP #### [facility] [address] [place] [address] Dr. Adalberto Dimas CO2 [Moles/Vol] 27.8 mmol/L Normal 21.0-32.0 [facility] Comment on above: Performed By: #### B MP #### [facility] [address] [address] [address] Adalberto Dimas Creatinine [Mass/Vol] 0.79 mg/dL Normal 0.55-1.02 [facility] Comment on above: Performed By: #### B MP #### [facility] [address] [address] [address] Adalberto Dimas EGFR-AF BELARUSIAN >60 Normal >=60 [facility] Comment on above: Performed By: #### B MP #### [facility] [address] [address] [address] Adalberto Dimas EGFR-NON AF BELARUSIAN >60 Normal >=60 [facility] Comment on above: Performed By: #### B MP #### [facility] [address] [address] [address] Adalberto Dimas Glucose [Mass/Vol] 96 mg/dL Normal 74-106 [facility] Comment on above: Performed By: #### B MP #### [facility] [address] [address] [address] Adalberto Dimas Potassium [Moles/Vol] 3.8 mmol/L Normal 3.5-5.1 [facility] Comment on above: Performed By: #### B MP #### [facility] [address] [address] [address] Adalberto Dimas Sodium [Moles/Vol] 138 mmol/L Normal 136-[address] [facility] Comment on above: Performed By: #### B MP #### [facility] [address] [address] [address] Adalberto Dimas Urea nitrogen [Mass/Vol] 12.0 mg/dL Normal 7.0-18.0 [facility] Comment on above: Performed By: #### B MP #### [facility] [address] [place] [address] Dr. Adalberto Dimas Urea nitrogen/Creatinine [Mass ratio] 15.2 mg/mg Normal [facility] Comment on above: Performed By: #### B MP #### [facility] [address] [place] [address] Dr. Adalberto Dimas URINE MICROSCOPIC ONLYon BACTERIA TRACE Abnormal NONE SEEN [facility] Comment on above: Performed By: #### Gaby FROST, UMICRO #### [facility] [address] [place] [address] Dr. Adalberto Dimas Bacteria identified Cx Nom (U) NOT INDICATED Normal [facility] Comment on above: Performed By: #### E MARGOT, UMICRO #### [facility] [address] [place] [address] Dr. Adalberto Dimas CAST NONE SEEN Normal NONE SEEN [facility] Comment on above: Performed By: #### E MARGOT UMICRO #### [facility] [address] [place] [address] Dr. Adalberto Dimas Crystals LM Nom (Urine sed) NONE SEEN Normal NONE SEEN [facility] Comment on above: Performed By: #### Gaby FROST UMICRO #### [facility] [address] [place] [address] Dr. Adalberto Dimas Epithelial cells LM Ql (Urine sed) MODERATE Abnormal NONE SEEN /RARE [facility] Comment on above: Performed By: #### Gaby FROST UMICRO #### [facility] [address] [place] [address] Dr. Adalberto Dimas MUCOUS NONE SEEN Normal NONE SEEN [facility] Comment on above: Performed By: #### Gaby FROST UMICRO #### [facility] [address] [place] [address] Dr. Adalberto Dimas RBC NONE SEEN Abnormal 0-2 [facility] Comment on above: Performed By: #### Gaby FROST UMICRO #### [facility] [address] [place] [address] Dr. Adalberto Dimas WBC 0-2 Abnormal NONE SEEN [facility] Comment on above: Performed By: #### E RUVita, UMICRO #### [facility] [address] [place] [address] Dr. Adalberto Dimas Complete Blood Count with Au to Diffon 10-02-2021 Basophils (Bld) [#/Vol] 0.04 10*3/uL Normal 0.00-0.20 [facility] [employer] Comment on above: Performed By: #### F ERR, FE Prof, CBCAD, RETIC #### [facility] [address], [place] [id number] Basophils/100 WBC (Bld) 0.5 % Normal [facility] Comment on above: Performed By: #### F ERR, FE Prof, CBCAD, RETIC #### [facility] [address], [place] [id number] Eosinophils (Bld) [#/Vol] 0.04 10*3/uL Normal 0.02-0.50 [facility] [employer] Comment on above: Performed By: #### F ERR, FE Prof, CBCAD, RETIC #### [facility] [address], [place] [id number] Eosinophils/100 WBC (Bld) 0.5 % Normal [facility] Comment on above: Performed By: #### F ERR, FE Prof, CBCAD, RETIC #### [facility] [address] [place], [place] [id number] Erythrocyte distribution width (RBC) [Ratio] 12.5 % Normal 11.0-15.0 [facility] [employer] Comment on above: Performed By: #### F ERR FE Prof, CBCAD, RETIC #### [facility] [address] [place], [place] [id number] Hematocrit (Bld) [Volume fraction] 41.0 % Normal 35.0-47.0 [facility] [employer] Comment on above: Performed By: #### F ERR, FE Prof, CBCAD, RETIC #### [facility] [address], [place] [id number] Hemoglobin (Bld) [Mass/Vol] 13.7 g/dL Normal 11.6-15.5 [facility] [employer] Comment on above: Performed By: #### F ERR, FE Prof, CBCAD, RETIC #### [facility] [address], [place] [id number] Lymphocytes (Bld) [#/Vol] 2.1 10*3/uL Normal 0.9-3.9 [facility] [employer] Comment on above: Performed By: #### F ERR, FE Prof, CBCAD, RETIC #### [facility] [address] [place], [place] [id number] Lymphocytes/100 WBC (Bld) 24.2 % Normal [facility] Comment on above: Performed By: #### F ERR, FE Prof, CBCAD, RETIC #### [facility] [address] [facility] [place] [id number] MCH (RBC) [Entitic mass] 31.6 pg Normal 27.0-33.0 [facility] Comment on above: Performed By: #### F ERR, FE Prof, CBCAD, RETIC #### [facility] [address] [place], [place] [id number] MCHC (RBC) [Mass/Vol] 33.4 g/dL Normal 32.0-36.0 [facility] Comment on above: Performed By: #### F ERR, FE Prof, CBCAD, RETIC #### [facility] [address] [facility] [place] [id number] MCV (RBC) [Entitic vol] 95 fL Normal 80-100 [facility] Comment on above: Performed By: #### F ERR, FE Prof, CBCAD, RETIC #### [facility] [address] [place] [id number] Monocytes (Bld) [#/Vol] 0.7 10*3/uL Normal 0.2-0.9 [facility] Comment on above: Performed By: #### F ERR, FE Prof, CBCAD, RETIC #### [facility] [address] [place], [place] [id number] Monocytes/100 WBC (Bld) 7.9 % Normal [facility] Comment on above: Performed By: #### F ERR, FE Prof, CBCAD, RETIC #### [facility] [address] [place], [place] [id number] Neutrophils (Bld) [#/Vol] 5.7 10*3/uL Normal 1.5-7.8 [facility] Comment on above: Performed By: #### F ERR, FE Prof, CBCAD, RETIC #### [facility] [address] [place], [place] [id number] Neutrophils/100 WBC (Bld) 66.5 % Normal [facility] [employer] Comment on above: Performed By: #### F ERR, FE Prof, CBCAD, RETIC #### [facility] [address], [place] [id number] Platelet mean volume (Bld) [Entitic vol] 9.80 fL Normal 7.50-12.50 [facility] Comment on above: Performed By: #### F ERR, FE Prof, CBCAD, RETIC #### [facility] [address], [place] [id number] Platelets (Bld) [#/Vol] 253 10*3/uL Normal 140-400 [facility] Comment on above: Performed By: #### F ERR, FE Prof, CBCAD, RETIC #### [facility] [address] [place], [place] [id number] RBC (Bld) [#/Vol] 4.34 10*6/uL Normal 3.90-5.20 [facility] Comment on above: Performed By: #### F ERR, FE Prof, CBCAD, RETIC #### [facility] [address], [place] [id number] RDW-SD 43.6 fL Normal 37.0-50.0 [facility] Comment on above: Performed By: #### F ERR, FE Prof, CBCAD, RETIC #### [facility] [address], [place] [id number] WBC (Bld) [#/Vol] 8.6 10*3/uL Normal 3.8-11.0 [facility] Comment on above: Performed By: #### F ERR, FE Prof, CBCAD, RETIC #### [facility] [address], [place] [id number] Ferritinon 10-02-2021 FERR 77.1 ng/mL Normal 15.0-150.0 [facility] Comment on above: Performed By: #### F ERR, FE Prof, CBCAD, RETIC #### [facility] [address] [place], [place] [id number] Iron Profileon 10-02-2021 %FESAT 22 % Normal 11-50 [facility] Comment on above: Performed By: #### F ERR, FE Prof, CBCAD, RETIC #### [facility] [address], [place] [id number] FE 67 ug/dL Normal 40-190 [facility] Specialist Comment on above: Result Comment: Refe rence range change 04/10/2017. Prior reference range F 37-145 ug/dL, M 59-158 ug/dL. Performed By: #### F ERR, FE Prof, CBCAD, RETIC #### [facility] [address], [place] [id number] TIBC 300 ug/dL Normal 250-450 [facility] Specialist Comment on above: Performed By: #### F ERR, FE Prof, CBCAD, RETIC #### [facility] [address], [place] [id number] UIBC 233 ug/dL Normal 112-347 [facility] Cigarette Machine Operator Comment on above: Performed By: #### F ERR, FE Prof, CBCAD, RETIC #### [facility] [address], [place] [id number] Q - PROTHROMBIN TIME WITH IN Tyson 10-02-2021 INR Coag (PPP) [Relative time] 1.0 {INR} Normal [facility] Specialist Comment on above: Order Comment: [facility] performed at: [employer] [facility], [address] [place] [address], [id number], Banking Center Manager: Blade Vazquez MD [facility] Date/Time: [facility] Results Received Date/Time: [facility] Reported Date/Time: Result Comment: Refe rence Range 0.9-1.1 Moderate-intensity Warfarin Therapy 2.0-3.0 Higher-intensity Warfarin Therapy 3.0-4.0 Performed By: #### 2 6F, 763X, 4919X #### [facility] [address] [place] [address] PT Coag (PPP) [Time] 9.7 s Normal 9.0-11.5 [facility] Comment on above: Order Comment: [facility] performed at: [employer] [facility], [address] [place] [address], [address] [place] [address], [id number], Banking Center Manager: Blade Vazquez MD [facility] Date/Time: [facility] Results Received Date/Time: [facility] Reported Date/Time: Result Comment: For additional information, please refer to http://education.[employer]/faq/IUF767 (This link is being provided for informational/ educational purposes only.) Performed By: #### 2 6F, 763X, 4919X #### [facility] [address] [place] [address] Q - PTTon 10-02-2021 PARTIAL THROMBOPLASTIN TIME, ACTIVATED 30 sec Normal 23-32 [facility] Cigarette Machine Operator Comment on above: Order Comment: [facility] performed at: [facility], [employer] [facility], [address] [facility], [address] [place], [address], Banking Center Manager: Blade Vazquez MD [facility] Date/Time: [facility] Results Received Date/Time: [facility] Reported Date/Time: Result Comment: This test has not been validated for monitoring unfractionated heparin therapy. For testing that is validated for this type of therapy, please refer to the Heparin Anti-Xa assay (test code 44893). For additional information, please refer to http://[employer].Snapeee/faq/BQR196 (This link is being provided for informational/educational purposes only.) Performed By: #### 2 6F, 763X, 4919X #### [facility] [address] [place] [address] Q - VON WILLEBRAND FACTOR AN TIGENon 10-02-2021 VON WILLEBRAND FACTOR ANTIGEN 74 % Normal 50-217 [facility] Cigarette Machine Operator Comment on above: Order Comment: [facility] performed at: [facility], [facility], [address] [address], [place], [place], , Banking Center Manager: Keven Crowley M.D.,PhD [facility] Date/Time: [facility] Results Received Date/Time: [facility] Reported Date/Time: Performed By: #### 2 6F, 763X, 4919X #### [facility] [address] [place] [address] RETICon 10-02-2021 IRF 8.90 % High 0.01-0.16 [facility] Cigarette Machine Operator Comment on above: Performed By: #### F ERR, FE Prof, CBCAD, RETIC #### [facility] [address] [place], [place] [id number] RET# 0.07 M/uL Normal 0.02-0.10 [facility] Cigarette Machine Operator Comment on above: Performed By: #### F ERR, FE Prof, CBCAD, RETIC #### [facility] [address], [place] [id number] Ret% 1.51 % Normal 0.40-1.80 [facility] Cigarette Machine Operator Comment on above: Performed By: #### F ERR, FE Prof, CBCAD, RETIC #### [facility] [address], [place] [id number] RET-HE 36.90 pg Normal 31.90-37.1 0 [facility] Cigarette Machine Operator Comment on above: Performed By: #### F ERR, FE Prof, CBCAD, RETIC #### [facility] [address], [place] [id number] Vitamin B12/Folateon 022 Cobalamin (Vitamin B12) [Mass/Vol] 408 pg/mL Normal 211-946 [facility] Cigarette Machine Operator Comment on above: Performed By: #### B 12/Fol #### [facility] [address], [place] [id number] FOL 8.6 ng/mL Normal >4.7 [facility] Cigarette Machine Operator Comment on above: Result Comment: Refe rence range change 04/10/2017. Prior reference range F 4.8-37.3 ng/mL, M 4.5-32.2 ng/mL. Performed By: #### B 12/Fol #### [facility] [address] [place], [place] [id number] XR knee LT 4V*on 07-20-2021 XR knee LT 4V* [facility] [employer] Other XR knee LT 4V* [facility] [employer] Other XR knee LT 4V* [address] [facility] [employer] Other XR knee LT 4V* [place] [address] No rt [employer] Other XR knee LT 4V* XRay Report [employer] Other XR knee LT 4V* Signed [employer] Other XR knee LT 4V* Patient: Erma Almazan MR#: [id number] [place] [employer] Other XR knee LT 4V* 184 [employer] Other XR knee LT 4V* : 1995 Acct:[id number] [employer] Other XR knee LT 4V* Age/Sex: 26 / F ADM Date: 07/20/21 [employer] Other XR knee LT 4V* Loc: [id number] Room: pe: [facility] [employer] Other XR knee LT 4V* Attending Dr: Asim Palam - [employer] Other XR knee LT 4V* Ordering Provider: Tony Palma BASEBALL UMPIRE FOR LITTLE LEAGUEBerggi [place] [employer] Other XR knee LT 4V* Date of Service: 07/20/21 [employer] Other XR knee LT 4V* XR/XR knee LT 4V*: Acute pain of left knee [employer] Other XR knee LT 4V* Copies to: Asim jones [facility] Other XR knee LT 4V* Left knee 07/20/2021. [employer] Other XR knee LT 4V* CLINICAL DATA: Left knee pain. No known injury. [employer] Other XR knee LT 4V* FINDINGS: 4 views of the left knee were obtained. [employer] Other XR knee LT 4V* No acute fracture or dislocation is identified. No early degenerative or other arthritic changes [employer] Other XR knee LT 4V* are seen. No bony er osion or destruction is visualized. There is no suprapatellar effusion. [employer] Other XR knee LT 4V* X R/XR knee LT 4V* [employer] Other XR knee LT 4V* IMPRESSION: No acute bony abnormality or effusion. 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 CT ABDOMEN PELVIS WO CONTRAS T Additional Contrast? NoneOrdered By: Denton Prashanthstephanishaquille on 12-08-2020 1. No acute intra-abdominal abnormality. 2. Hepatic steatosis. Multiple areas of increased attenuation in the hepatic lobes, likely fatty sparing. 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 Bones/Soft Tissues: No acute osseous abnormality. 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 [facility] Phone: [facility] Phone: BASIC METABOLIC PANELOrdered By: Denton Barr on 12-07-2020 Anion gap [Moles/Vol] 10 mmol/L 9 - 17 mmol/L [facility] Phone: Calcium [Mass/Vol] 8.7 mg/dL 8.6 - 10. 4 mg/dL [facility] Phone: Chloride [Moles/Vol] 103 mmol/L 98 - 10 7 mmol/L [facility] Phone: CO2 [Moles/Vol] 25 mmol/L 20 - 31 mmol/L [facility] Phone: Creatinine [Mass/Vol] 0.68 mg/dL 0.50 - 0.90 mg/dL [facility] Phone: GFR >60 >60 mL/min [employer] Phone: GFR Non- >60 >60 mL/min [facility] Phone: GFR/1.73 sq M.predicted MDRD (S/P/Bld) [Vol rate/Area] [facility] Phone: Comment on above: Average GFR for 20-2 9 years old: 116 mL/min/1.73sq m Chronic Kidney Disease: <60 mL/min/1.73sq m Kidney failure: <15 mL/min/1.73sq m eGFR calculated using average adult body mass. Additional eGFR calculator available at: http://www.GOPOP.TV.com/multiple_crcl_2012.htm GFR/1.73 sq M.predicted MDRD (S/P/Bld) [Vol rate/Area] NOT REPORTED [facility] Phone: Glucose [Mass/Vol] 108 mg/dL High 70 - 99 mg/dL [facility] Phone: Interpretation and review of laboratory results Abnormal [facility] Phone: Potassium [Moles/Vol] 4.1 mmol/L 3.7 - 5.3 mmol/L [facility] Phone: Sodium [Moles/Vol] 138 mmol/L 135 - 144 mmol/L [facility] Phone: Urea nitrogen (BldV) [Mass/Vol] 12 mg/dL 6 - 20 mg/dL [facility] Phone: Urea nitrogen/Creatinine (Bld) [Mass ratio] NOT REPORTED [facility] Phone: [facility] Phone: Basic Metabolic Profon 12-07 (cont.) Normal [facility] Comment on above: Result Comment: Aver age GFR for 20-29 years old: 116 mL/min/1.73sq m Chronic Kidney Disease: <60 mL/min/1.73sq m Kidney failure: <15 mL/min/1.73sq m eGFR calculated using average adult body mass. Additional eGFR calculator available at: http://www.GOPOP.TV.Nagisa,inc./multiple_crcl_2012.htm Performed By: #### C DP, HCG, BMP #### [employer] [address] [place] [phone] Meter Tester: Lloyd Vela MD Anion gap [Moles/Vol] 10 mmol/L Normal 9-17 [facility] Comment on above: Performed By: #### C DP, HCG, BMP #### [employer] [address] [place] [address] [phone] Meter Tester: Lloyd Vela MD Calcium [Mass/Vol] 8.7 mg/dL Normal 8.6-10.4 [facility] Comment on above: Performed By: #### C DP, HCG, BMP #### [employer] [address] [place] [address] [phone] Meter Tester: Lloyd Vela MD Chloride [Moles/Vol] 103 mmol/L Normal 98-107 [facility] Comment on above: Performed By: #### C DP, HCG, BMP #### [facility] [address] [place] [address] Meter Tester: Lloyd Vela MD CO2 [Moles/Vol] 25 mmol/L Normal 20-31 [facility] Comment on above: Performed By: #### C DP, HCG, BMP #### [facility] [address] [place] [address] Meter Tester: Lloyd Vela MD Creatinine [Mass/Vol] 0.68 mg/dL Normal 0.50-0.90 [facility] Comment on above: Performed By: #### C DP, HCG, BMP #### [facility] [employer] [address] [place] [address] Meter Tester: Lloyd Vela MD GFR, Amer >60 Normal >60 [facility] Comment on above: Performed By: #### C DP, HCG, BMP #### [address] [address] Meter Tester: Lloyd Vela MD GFR,non Amer >60 Normal >60 [facility] Comment on above: Performed By: #### C DP, HCG, BMP #### [facility] [employer] [address] [place] [address] Meter Tester: Lloyd Vela MD Glucose [Mass/Vol] 108 mg/dL High 70-99 [facility] Comment on above: Performed By: #### C DP, HCG, BMP #### [facility] [employer] [address] [place] [address] Meter Tester: Lloyd Vela MD Potassium [Moles/Vol] 4.1 mmol/L Normal 3.7-5.3 [facility] Comment on above: Performed By: #### C DP, HCG, BMP #### [facility] [employer] [address] [place] [address] Meter Tester: Lloyd Vela MD Sodium [Moles/Vol] 138 mmol/L Normal 135-144 [facility] Comment on above: Performed By: #### C DP, HCG, BMP #### [facility] [address] [place] [address] Meter Tester: Lloyd Vela MD Urea nitrogen [Mass/Vol] 12 mg/dL Normal - [facility] Comment on above: Performed By: #### C DP, HCG, BMP #### [facility] [address] [place] [address] Meter Tester: Lloyd Vela MD BUN/CRE Ratio NOT REPORTED Normal - [facility] Comment on above: Performed By: #### C DP, HCG, BMP #### [facility] [address] [place] [address] Meter Tester: Lloyd Vela MD Staging: NOT REPORTED Normal [facility] Comment on above: Performed By: #### C DP, HCG, BMP #### [facility] [address] [place] [address] Meter Tester: Lloyd Vela MD CBC WITH AUTO DIFFERENTIALOr dered By: Denton Barr on 12-07-2020 [employer] [facility] # 0.07 [facility] Work Phone: Absolute Immature Granulocyte 0.05 [facility] Work Phone: Absolute Lymph # 3.21 [employer] [facility] Work Phone: Absolute Stephenson # 0.94 [facility] Work Phone: Basophils (Bld) [#/Vol] 0.04 10*3/uL [employer] [facility] Work Phone: Basophils/100 WBC (Bld) 0 % 0 - 2 % [employer] Work Phone: Differential Type NOT REPORTED [facility] Phone: Eosinophils/100 WBC (Bld) 1 % 1 - 4 % [facility] Phone: Hematocrit (Bld) [Volume fraction] 39.2 % 36.3 - 47.1 % [facility] Phone: Hemoglobin.gastrointes tinal spec 1 Ql (Stl) 13.1 g/dL 11.9 - 15.1 g/dL [facility] Phone: Immature granulocytes/100 WBC (Bld) 0 % 0 [facility] Phone: Interpretation and review of laboratory results Abnormal [facility] Phone: Lymphocytes/100 WBC (Bld) 27 % 24 - 43 % [facility] Phone: MCH (RBC) [Entitic mass] 31.0 pg 25.2 - 33.5 pg [facility] Phone: MCHC (RBC) [Mass/Vol] 33.4 g/dL 28.4 - 34.8 g/dL [facility] Phone: MCV (RBC) [Entitic vol] 92.9 fL 82.6 - 102.9 fL [facility] Phone: Monocytes/100 WBC (Bld) 8 % 3 - 12 % [facility] Phone: NRBC Automated 0.0 0.0 per 100 WBC [facility] Phone: Platelet distribution width (Bld) [Ratio] 12.3 % 11.8 - 14.4 % [facility] Phone: Platelet Estimate NOT REPORTED [facility] Phone: Platelet mean volume (Bld) [Entitic vol] 9.0 fL 8.1 - 13.5 fL [facility] Phone: Platelets (Bld) [#/Vol] 314 10*3/uL [facility] Phone: RBC (Bld) [#/Vol] 4.22 10*6/uL 3.95 - 5.11 m/uL [employer] Work Phone: RBC (Bld) [#/Vol] NOT REPORTED [employer] Work Phone: Segmented neutrophils/100 WBC (Bld) 64 % 36 - 65 % [employer] Work Phone: Segs [employer] 7.42 [employer] Work Phone: WBC (Bld) [#/Vol] 11.7 10*3/uL High [employer] Work Phone: WBC (Bld) [#/Vol] NOT REPORTED [employer] Work Phone: [employer] Work Phone: CBC with Diffon 12-07-2020 Abs. Basophil 0.04 k/uL Normal 0.00-0.20 [facility] Comment on above: Performed By: #### C DP, HCG, BMP #### [employer] [address] [place] [address] Meter Tester: Lloyd Vela MD Abs.Imm.Granulocyte 0.05 k/uL Normal 0.00-0.30 [facility] Comment on above: Performed By: #### C DP, HCG, BMP #### [facility] [email or web address] [address] [place] [address] Meter Tester: Lloyd Vela MD Abs.Neutrophil (Seg) 7.42 k/uL Normal 1.50-8.10 [facility] Comment on above: Performed By: #### C DP, HCG, BMP #### [employer] [address] [place] [address] Meter Tester: Lloyd Vela MD Basophils/100 WBC (Bld) 0 % Normal 0-2 [facility] Comment on above: Performed By: #### C DP, HCG, BMP #### [address] [address] Meter Tester: Lloyd Vela MD Eosinophils (Bld) [#/Vol] 0.07 10*3/uL Normal 0.00-0.44 [facility] Comment on above: Performed By: #### C DP, HCG, BMP #### [address] [address] Meter Tester: Lloyd Vela MD Eosinophils/100 WBC (Bld) 1 % Normal 1-4 [facility] Comment on above: Performed By: #### C DP, HCG, BMP #### [facility] [employer] [address] [place] [address] Meter Tester: Lloyd Vela MD Immature granulocytes/100 WBC (Bld) 0 % Normal 0 [facility] Comment on above: Performed By: #### C DP, HCG, BMP #### [facility] [employer] [address] [place] [address] Meter Tester: Lloyd Vela MD Lymphocytes (Bld) [#/Vol] 3.21 10*3/uL Normal 1.10-3.70 [facility] Comment on above: Performed By: #### C DP, HCG, BMP #### [facility] [employer] [address] [place] [address] Meter Tester: Lloyd Vela MD Lymphocytes/100 WBC (Bld) 27 % Normal 24-43 [facility] Comment on above: Performed By: #### C DP, HCG, BMP #### [facility] [employer] [address] [place] [address] Meter Tester: Lloyd Vela MD Monocytes (Bld) [#/Vol] 0.94 10*3/uL Normal 0.10-1.20 [facility] Comment on above: Performed By: #### C DP, HCG, BMP #### [email or web address] [address] [place] [address] Meter Tester: Lloyd Vela MD Monocytes/100 WBC (Bld) 8 % Normal 3-12 [facility] Comment on above: Performed By: #### C DP, HCG, BMP #### [facility] [address] [place] [address] Meter Tester: Lloyd Vela MD Neutrophil (Seg) 64 % Normal 36-65 [facility] Comment on above: Performed By: #### C DP, HCG, BMP #### [facility] [address] [place] [address] Meter Tester: Lloyd Vela MD Erythrocyte distribution width (RBC) [Ratio] 12.3 % Normal 11.8-14.4 [facility] Comment on above: Performed By: #### C DP, HCG, BMP #### [facility] [employer] [address] [place] [address] Meter Tester: Lloyd Vela MD Hematocrit (Bld) [Volume fraction] 39.2 % Normal 36.3-47.1 [facility] Comment on above: Performed By: #### C DP, HCG, BMP #### [facility] [employer] [address] [place] [address] Meter Tester: Lloyd Vela MD Hemoglobin (Bld) [Mass/Vol] 13.1 g/dL Normal 11.9-15.1 [facility] Comment on above: Performed By: #### C DP, HCG, BMP #### [facility] [employer] [address] [place] [address] Meter Tester: Lloyd Vela MD MCH (RBC) [Entitic mass] 31.0 pg Normal 25.2-33.5 [facility] Comment on above: Performed By: #### C DP, HCG, BMP #### [facility] [employer] [address] [place] [address] Meter Tester: Lloyd Vela MD MCHC (RBC) [Mass/Vol] 33.4 g/dL Normal 28.4-34.8 [facility] Comment on above: Performed By: #### C DP, HCG, BMP #### [address] [address] Meter Tester: Lloyd Vela MD MCV (RBC) [Entitic vol] 92.9 fL Normal 82.6-102.9 [facility] Comment on above: Performed By: #### C DP, HCG, BMP #### [facility] [employer] [address] [place] [address] Meter Tester: Lloyd Vela MD NRBC Automated 0.0 per [address] [facility] Comment on above: Performed By: #### C DP, HCG, BMP #### [address] [address] Meter Tester: Lloyd Vela MD Platelet mean volume (Bld) [Entitic vol] 9.0 fL Normal 8.1-13.5 [facility] Comment on above: Performed By: #### C DP, HCG, BMP #### [address] [address] Meter Tester: Lloyd Vela MD Platelets (Bld) [#/Vol] 314 10*3/uL Normal 138-453 [facility] Comment on above: Performed By: #### C DP, HCG, BMP #### [address] [address] Meter Tester: Lloyd Vela MD RBC (Bld) [#/Vol] 4.22 10*6/uL Normal 3.95-5.11 [facility] Comment on above: Performed By: #### C DP, HCG, BMP #### [facility] [employer] [address] [place] [address] Meter Tester: Lloyd Vela MD WBC (Bld) [#/Vol] 11.7 10*3/uL High 3.5-11.3 [facility] Comment on above: Performed By: #### C DP, HCG, BMP #### [address] [address] Meter Tester: Lloyd Vela MD Auto Diff Performed NOT REPORTED Normal [facility] Comment on above: Performed By: #### C DP, HCG, BMP #### [address] [address] Meter Tester: Lloyd Vela MD Platelet Estimate NOT REPORTED Normal [facility] Comment on above: Performed By: #### C DP, HCG, BMP #### [address] [address] Meter Tester: Lloyd Vela MD RBC morphology finding Nom (Bld) NOT REPORTED Normal [facility] Comment on above: Performed By: #### C DP, HCG, BMP #### [address] [address] Meter Tester: Lloyd Vela MD WBC Morphology NOT REPORTED Normal [facility] Comment on above: Performed By: #### C DP, HCG, BMP #### [address] [address] Meter Tester: Lloyd Vela MD HCG Qualitative, SerumOrdere d By: Denton Barr on 12-07-2020 hCG Qual Negative NEGATIVE [facility] [employer] Work Phone: Comment on above: Specimens with hCG l evels near the threshold of the test (25 mIU/mL) may give a negative or indeterminate result. In such cases, another test should be performed with a new specimen in 48-72 hours. If early is suspected clinically in this setting, correlation with quantitative serum b-hCG level is suggested. [employer] has confirmed the use of plasma for this test. This has not been cleared or approved by the U.S. Food and Drug Administration. The FDA has determined that such clearance is not necessary. [facility] Phone: HCG Screen, Bloodon 12-08-19 21 HCG Screen, Blood Negative Normal NEG [facility] Comment on above: Result Comment: Spec imens with hCG levels near the threshold of the test (25 mIU/mL) may give a negative or indeterminate result. In such cases, another test should be performed with a new specimen in 48-72 hours. If early is suspected clinically in this setting, correlation with quantitative serum b-hCG level is suggested. [employer] has confirmed the use of plasma for this test. This has not been cleared or approved by the U.S. Food and Drug Administration. The FDA has determined that such clearance is not necessary. Performed By: #### C DP, HCG, BMP #### [employer] [address] [place] [address] Meter Tester: Lloyd Vela MD Microscopic UrinalysisOrdere d By: Denton Barr on 12-07-2020 - [employer] Work Phone: Amorphous, UA NOT REPORTED None [facility] Work Phone: Bacteria, UA FEW Abnormal None [facility] [employer] Phone: Casts UA NOT REPORTED [facility] [employer] Phone: Crystals, UA NOT REPORTED None /HPF [facility] Work Phone: Epithelial Cells UA 2 TO 5 [facility] [employer] Work Phone: Interpretation and review of laboratory results Abnormal [facility] [facility] Phone: Mucus, UA NOT REPORTED None [facility] Phone: Other Observations UA NOT REPORTED NOT REQ. M [facility] [employer] Work Phone: RBC, UA 2 TO 5 [facility] [employer] Phone: Comment on above: Reference range defi hafsa for non-centrifuged specimen. Renal Epithelial, UA NOT REPORTED 0 /HPF Me [facility] [employer] Work Phone: Trichomonas, UA NOT REPORTED None [employer] Work Phone: WBC, UA 5 TO 10 [employer] Work Phone: Yeast, UA NOT REPORTED None [employer] Work Phone: [employer] Work Phone: UA w/Reflex Cultureon 2020 Bilirubin, SemiQt,Ur Negative Normal NEG [facility] Comment on above: Performed By: #### U MICAO, UAX #### [facility] [employer] [address] [place] [address] Meter Tester: Lloyd Vela MD Blood, Urine TRACE Abnormal NEG [facility] Comment on above: Performed By: #### U MICAO, UAX #### [email or web address] [address] [place] [address] Meter Tester: Lloyd Vela MD Clarity (U) CLEAR Normal CLEAR [facility] Comment on above: Performed By: #### U MICAO, UAX #### [email or web address] [address] [place] [address] Meter Tester: Lloyd Vela MD Color (U) YELLOW Normal YEL [facility] Comment on above: Performed By: #### U MICAO, UAX #### [facility] [address] [place] [address] Meter Tester: Lloyd Vela MD Glucose Ql (U) Negative Normal NEG [facility] Comment on above: Performed By: #### U MICAO, UAX #### [facility] [employer] [address] [place] [address] Meter Tester: Lloyd Vela MD Ketones Ql (U) Negative Normal NEG [facility] Comment on above: Performed By: #### U MICAO, UAX #### [facility] [employer] [address] [place] [address] Meter Tester: Lloyd Vela MD Leukocyte esterase Test strip Ql (U) Negative Normal NEG [facility] Comment on above: Performed By: #### U MICAO, UAX #### [facility] [address] [place] [address] Meter Tester: Lloyd Vela MD Nitrite,Ur Negative Normal NEG [facility] Comment on above: Performed By: #### U MICAO, UAX #### [facility] [address] [place] [address] Meter Tester: Lloyd Vela MD PH,Ur 5.5 Normal 5.0-8.0 [facility] Comment on above: Performed By: #### U MICAO, UAX #### [address] [address] Meter Tester: Lloyd Vela MD Protein Ql (U) Negative Normal NEG [facility] Comment on above: Performed By: #### U MICAO, UAX #### [address] [address] Meter Tester: Lloyd Vela MD Spec. [place],Ur 1.020 Normal 1.005-1.[address] [facility] Comment on above: Performed By: #### U MICAO, UAX #### [address] [address] Meter Tester: Lloyd Vela MD Urobilinogen,Ur Normal Normal NORM [facility] Comment on above: Performed By: #### U MICAO, UAX #### [address] [address] Meter Tester: Lloyd Vela MD Comment NOT REPORTED Normal [facility] Comment on above: Performed By: #### U MICAO, UAX #### [address] [address] Meter Tester: Lloyd Vela MD Urinalysis Reflex to Culture Ordered By: Denton Barr on 12-07-2020 Bilirubin Urine Negative NEGATIVE [facility] Work Phone: Color, UA YELLOW YELLOW [facility] Work Phone: Glucose, Ur Negative NEGATIVE [facility] [employer] Work Phone: Interpretation and review of laboratory results Abnormal [facility] Work Phone: Ketones Ql (U) Negative NEGATIVE [facility] Work Phone: Leukocyte esterase Test strip Ql (U) Negative NEGATIVE [facility] Work Phone: Nitrite, Urine Negative NEGATIVE [facility] Work Phone: pH, UA 5.5 [facility] [employer] Work Phone: Protein, UA Negative NEGATIVE [facility] Work Phone: Specific [place], UA 1.020 [facility] [employer] Work Phone: Turbidity UA CLEAR CLEAR [facility] [employer] Work Phone: Urinalysis Comments NOT REPORTED [facility] [employer] Work Phone: Urine Hgb TRACE Abnormal NEGATIVE [facility] [employer] Work Phone: Urobilinogen, Urine Normal Normal [facility] [employer] Work Phone: [facility] [employer] Work Phone: Urinalysis,Microon 1 ----- Normal [facility] Comment on above: Performed By: #### U MICAO, UAX #### [employer] [address] [place] [address] Meter Tester: Lloyd Vela MD Bacteria FEW Abnormal NONE [facility] Comment on above: Performed By: #### U MICAO, UAX #### [facility] [address] [place], [place] [id number] Meter Tester: Lloyd Vela MD Epithelial cells LM Ql (Urine sed) 2 TO 5 Normal 0-5 [facility] Comment on above: Performed By: #### U MICAO, UAX #### [address] [address] Meter Tester: Lloyd Vela MD Urine RBC's 2 TO 5 Normal 0-4 [facility] Comment on above: Result Comment: Refe rence range defined for non-centrifuged specimen. Performed By: #### U MICAO, UAX #### [facility] [employer] [address] [place] [address] Meter Tester: Lloyd Vela MD Urine WBC's 5 TO 10 Normal 0-5 [facility] Comment on above: Performed By: #### U MICAO, UAX #### [address] [address] Meter Tester: Lloyd Vela MD Amorphous sediment LM Ql (Urine sed) NOT REPORTED Normal NONE [facility] Comment on above: Performed By: #### U MICAO, UAX #### [address] [address] Meter Tester: Lloyd Vela MD Casts NOT REPORTED Normal 0-8 [facility] Comment on above: Performed By: #### U MICAO, UAX #### [facility] [employer] [address] [place] [address] Meter Tester: Lloyd Vela MD Crystals LM Nom (Urine sed) NOT REPORTED Normal NONE [facility] Comment on above: Performed By: #### U MICAO, UAX #### [facility] [employer] [address] [place] [address] Meter Tester: Lloyd Vela MD Epithelial, Renal NOT REPORTED Normal 0 [facility] Comment on above: Performed By: #### U MICAO, UAX #### [facility] [address] [place], [place] [address], [place] [address] Meter Tester: Lloyd Vela MD Mucus Strands NOT REPORTED Normal NONE [facility] Comment on above: Performed By: #### U MICAO, UAX #### [facility] [address] [place] [address] Meter Tester: Lloyd Vela MD Other Observations NOT REPORTED Normal NREQ [facility] Comment on above: Performed By: #### U MICAO, UAX #### [facility] [address] [place] [address] Meter Tester: Lloyd Vela MD Trichomonas NOT REPORTED Normal NONE [facility] Comment on above: Performed By: #### U MICAO, UAX #### [facility] [address] [place] [address] Meter Tester: Lloyd Vela MD Yeast NOT REPORTED Normal NONE [facility] Comment on above: Performed By: #### U MICAO, UAX #### [facility] [address] [place] [address] Meter Tester: Lloyd Vela MD Vital Signs Date Time Vital Sign Value Performing Clinician Facility 07-12-2024 10:24-0500 Body mass index (BMI) [Ratio] 39.58 kg/m2 INFOGR[employer] DO Work Phone: [facility] 07-12-2024 10:24-0500 Body weight 98.16 kg Donovan Vielka DO Work Phone: [facility] 07-12-2024 10:24-0500 Diastolic blood pressure 60 mm[Hg] Donovan Vielka DO Work Phone: [facility] 07-12-2024 10:24-0500 Systolic blood pressure 114 mm[Hg] Donovan Vielka DO Work Phone: [facility] 06-09-2024 09:14-0500 Body mass index (BMI) [Ratio] 39.76 kg/m2 Donovan Vielka DO Work Phone: [facility] 06-09-2024 09:14-0500 Body weight 98.61 kg Donovan Vielka DO Work Phone: [facility] 06-09-2024 09:14-0500 Diastolic blood pressure 72 mm[Hg] Donovan Vielka DO Work Phone: [facility] 06-09-2024 09:14-0500 Systolic blood pressure 112 mm[Hg] Donovan Vielka DO Work Phone: [facility] 05-10-2024 10:05-0500 Body mass index (BMI) [Ratio] 39.51 kg/m2 America Oakland PA Work Phone: [facility] 05-10-2024 10:05-0500 Body weight 97.98 kg America Oakland PA Work Phone: [facility] 05-10-2024 10:05-0500 Diastolic blood pressure 72 mm[Hg] America Oakland PA Work Phone: [facility] 05-10-2024 10:05-0500 Systolic blood pressure 120 mm[Hg] America Oakland PA Work Phone: [facility] 04-25-2024 09:02-0500 Body mass index (BMI) [Ratio] 39.32 kg/m2 Pengbeau Olivares GLASS TECHNICIAN Work Phone: [facility] 04-25-2024 09:02-0500 Body temperature 97.5 [degF] Peng Olivares GLASS TECHNICIAN Work Phone: [facility] 04-25-2024 09:02-0500 Body weight 97.52 kg Pengjuan Olivares GLASS TECHNICIAN Work Phone: [facility] 04-25-2024 09:02-0500 Diastolic blood pressure 74 mm[Hg] Peng Olivares GLASS TECHNICIAN Work Phone: [facility] 04-25-2024 09:02-0500 Heart rate 93 /min Peng Olivares GLASS TECHNICIAN Work Phone: [facility] 04-25-2024 09:02-0500 SaO2% (BldA) [Mass fraction] 98 % Peng Olivares GLASS TECHNICIAN Work Phone: [facility] 04-25-2024 09:02-0500 Systolic blood pressure 118 mm[Hg] Peng Olivares GLASS TECHNICIAN Work Phone: [facility] 04-11-2024 10:26-0500 Body mass index (BMI) [Ratio] 39.43 kg/m2 Donovan Vielka DO Work Phone: [facility] 04-11-2024 10:26-0500 Body weight 97.79 kg Donovan Vielka DO Work Phone: [facility] 04-11-2024 10:26-0500 Diastolic blood pressure 70 mm[Hg] Donovan Vielka DO Work Phone: [facility] 04-11-2024 10:26-0500 Systolic blood pressure 124 mm[Hg] Donovan Vielka DO Work Phone: [facility] 03-24-2024 18:54-0400 Body temperature 98.24 [degF] [facility] 03-24-2024 18:54-0400 Diastolic blood pressure 68 mm[Hg] [facility] 03-24-2024 18:54-0400 Heart rate 57 /min [facility] 03-24-2024 18:54-0400 Respiratory rate 16 /min [facility] 03-24-2024 18:54-0400 SaO2% (BldA) [Mass fraction] 100 % [facility] 03-24-2024 18:54-0400 Systolic blood pressure 128 mm[Hg] [facility] 03-10-2024 13:08-0400 Body mass index (BMI) [Ratio] 39.78 kg/m2 Nom Nurse [facility] 03-10-2024 13:08-0400 Body weight 98.66 kg [facility] Nurse [facility] 03-10-2024 13:08-0400 Diastolic blood pressure 72 mm[Hg] Noms Nurse [facility] 03-10-2024 13:08-0400 Systolic blood pressure 114 mm[Hg] Noms Nurse [facility] 02-04-2024 13:34-0400 Body height 157.48 cm CORK INSULATION INSTALLER Georgie Fareed Work Phone: [facility] 02-04-2024 13:34-0400 Body mass index (BMI) [Ratio] 39.2 kg/m2 CORK INSULATION INSTALLER Georgie Fareed Work Phone: [facility] 02-04-2024 13:34-0400 Body temperature 98.1 [degF] CORK INSULATION INSTALLER Georgie Fareed Work Phone: [facility] 02-04-2024 13:34-0400 Body weight 97.18 kg CORK INSULATION INSTALLER Georgie Fareed Work Phone: [facility] 02-04-2024 13:34-0400 Diastolic blood pressure 77 mm[Hg] CORK INSULATION INSTALLER Georgie Fareed Work Phone: [facility] 02-04-2024 13:34-0400 Heart rate 77 /min CORK INSULATION INSTALLER Georgie Fareed Work Phone: [facility] 02-04-2024 13:34-0400 SaO2% (BldA) [Mass fraction] 98 % CORK INSULATION INSTALLER Georgie Fareed Work Phone: [facility] 02-04-2024 13:34-0400 Systolic blood pressure 114 mm[Hg] CORK INSULATION INSTALLER Georgie Fareed Work Phone: [facility] 01-15-2024 21:31-0400 Body temperature 99.14 [degF] Roman Yahaira [facility] 01-15-2024 21:31-0400 Diastolic blood pressure 86 mm[Hg] Roman Yahaira [facility] 01-15-2024 21:31-0400 Heart rate 66 /min Roman Yahaira [facility] 01-15-2024 21:31-0400 Respiratory rate 18 /min Roman Syed [facility] 01-15-2024 21:31-0400 SaO2% (BldA) [Mass fraction] 98 % Roman Syed [facility] 01-15-2024 21:31-0400 Systolic blood pressure 131 mm[Hg] Roman Syed [facility] 11-18-2023 09:57-0400 Body height 157.48 cm MD Jelly Chery Work Phone: [facility] 11-18-2023 09:57-0400 Body mass index (BMI) [Ratio] 38.5 kg/m2 MD Jelly Chery Work Phone: [facility] 11-18-2023 09:57-0400 Body temperature 97.5 [degF] MD Jelly Chery Work Phone: [facility] 11-18-2023 09:57-0400 Body weight 95.7 kg MD Jelly Chery Work Phone: [facility] 11-18-2023 09:57-0400 Diastolic blood pressure 72 mm[Hg] MD Jelly Chery Work Phone: [facility] 11-18-2023 09:57-0400 Heart rate 51 /min MD Jelly Chery Work Phone: [facility] 11-18-2023 09:57-0400 Respiratory rate 18 /min MD Jelly Chery Work Phone: [facility] 11-18-2023 09:57-0400 SaO2% (BldA) [Mass fraction] 98 % MD Jelly Chery Work Phone: [facility] 11-18-2023 09:57-0400 Systolic blood pressure 117 mm[Hg] MD Jelly Chery Work Phone: [facility] 10-30-2023 18:56-0400 Body height 157.48 cm MD Jelly Chery Work Phone: [facility] 10-30-2023 18:56-0400 Body mass index (BMI) [Ratio] 35 kg/m2 MD Jelly Chery Work Phone: [facility] 10-30-2023 18:56-0400 Body temperature 97.8 [degF] MD Jelly Chery Work Phone: [facility] 10-30-2023 18:56-0400 Body weight 87 kg MD Jelly Chery Work Phone: [facility] 10-30-2023 18:56-0400 Diastolic blood pressure 86 mm[Hg] MD Jelly Chery Work Phone: [facility] 10-30-2023 18:56-0400 Heart rate 103 /min MD Jelly Chery Work Phone: [facility] 10-30-2023 18:56-0400 Respiratory rate 16 /min MD Jelly Chery Work Phone: [facility] 10-30-2023 18:56-0400 SaO2% (BldA) [Mass fraction] 98 % MD Jelly Chery Work Phone: [facility] 10-30-2023 18:56-0400 Systolic blood pressure 125 mm[Hg] MD Jelly Chery Work Phone: [facility] 09-29-2023 10:46-0400 Body height 157.48 cm MD Jelly Chery Work Phone: [facility] 09-29-2023 10:46-0400 Body mass index (BMI) [Ratio] 35.1 kg/m2 MD Jelly Chery Work Phone: [facility] 09-29-2023 10:46-0400 Body temperature 97.7 [degF] MD Jelly Chery Work Phone: [facility] 09-29-2023 10:46-0400 Body weight 87.08 kg MD Jelly Chery Work Phone: [facility] 09-29-2023 10:46-0400 Diastolic blood pressure 78 mm[Hg] MD Jelly Chery Work Phone: [facility] 09-29-2023 10:46-0400 Heart rate 64 /min MD Jelly Chery Work Phone: [facility] 09-29-2023 10:46-0400 SaO2% (BldA) [Mass fraction] 98 % MD Jelly Chery Work Phone: [facility] 09-29-2023 10:46-0400 Systolic blood pressure 115 mm[Hg] MD Jelly Chery Work Phone: [facility] 09-07-2023 14:31-0400 Body height 157.48 cm MD Jelly Chery Work Phone: [facility] 09-07-2023 14:31-0400 Body mass index (BMI) [Ratio] 37.6 kg/m2 MD Jelly Chery Work Phone: [facility] 09-07-2023 14:31-0400 Body temperature 98.2 [degF] MD Jelly Chery Work Phone: [facility] 09-07-2023 14:31-0400 Body weight 93.44 kg MD Jelly Chery Work Phone: [facility] 09-07-2023 14:31-0400 Diastolic blood pressure 72 mm[Hg] MD Jelly Chery Work Phone: [facility] 09-07-2023 14:31-0400 Heart rate 57 /min MD Jelly Cehry Work Phone: [facility] 09-07-2023 14:31-0400 Systolic blood pressure 116 mm[Hg] MD Jelly Chery Work Phone: [facility] 07-27-2023 14:08-0500 Body height 157.48 cm MD Jelly Chery Work Phone: [facility] 07-27-2023 14:08-0500 Body mass index (BMI) [Ratio] 37.6 kg/m2 MD Jelly Chery Work Phone: [facility] 07-27-2023 14:08-0500 Body temperature 98.2 [degF] MD Jelly Chery Work Phone: [facility] 07-27-2023 14:08-0500 Body weight 93.44 kg MD Jelly Chery Work Phone: [facility] 07-27-2023 14:08-0500 Diastolic blood pressure 80 mm[Hg] MD Jelly Chery Work Phone: [facility] 07-27-2023 14:08-0500 Heart rate 65 /min MD Jelly Chery Work Phone: [facility] 07-27-2023 14:08-0500 Systolic blood pressure 127 mm[Hg] MD Jelly Chery Work Phone: [facility] 07-05-2023 12:29-0500 Body temperature 96.49 [degF] Rad Sims DO Work Phone: [facility] 07-05-2023 12:29-0500 Heart rate 67 /min Rad Sims DO Work Phone: [facility] 07-05-2023 12:29-0500 SaO2% (BldA) [Mass fraction] 99 % Rad Sims DO Work Phone: [facility] 06-29-2023 16:07-0500 Body temperature 97.3 [degF] Miguel Ang PA-C Work Phone: [facility] 06-29-2023 16:07-0500 Diastolic blood pressure 67 mm[Hg] Miguel Ang PA-C Work Phone: [facility] 06-29-2023 16:07-0500 Heart rate 68 /min Miguel Ang PA-C Work Phone: [facility] 06-29-2023 16:07-0500 Systolic blood pressure 121 mm[Hg] Miguel Ang PA-C Work Phone: [facility] 01-11-2023 22:27-0400 Body height 157.48 cm MD Jelly Chery Work Phone: [facility] 01-11-2023 22:27-0400 Body temperature 98.5 [degF] MD Jelly Chery Work Phone: [facility] 01-11-2023 22:27-0400 Body weight 88.45 kg MD Jelly Chery Work Phone: [facility] 01-11-2023 22:27-0400 Diastolic blood pressure 85 mm[Hg] MD Jelly Chery Work Phone: [facility] 01-11-2023 22:27-0400 Heart rate 65 /min MD Jelly Chery Work Phone: [facility] 01-11-2023 22:27-0400 Respiratory rate 18 /min MD Jelly Chery Work Phone: [facility] 01-11-2023 22:27-0400 SaO2% (BldA) [Mass fraction] 100 % MD Jelly Chery Work Phone: [facility] 01-11-2023 22:27-0400 Systolic blood pressure 144 mm[Hg] MD Jelly Chery Work Phone: [facility] 10-17-2022 18:45-0400 Body height 154.94 cm Nasreen Delaney Other [employer] Other 10-17-2022 18:45-0400 Body mass index (BMI) [Ratio] 35.59 kg/m2 Nasreen Delaney Other [employer] Other 10-17-2022 18:45-0400 Body temperature 98.2 [degF] Nasreen Delaney Other [employer] Other 10-17-2022 18:45-0400 Body weight 85.46 kg Nasreen Delaney Other [employer] Other 10-17-2022 18:45-0400 Respiratory rate 18 /min Nasreen Delaney Other [employer] Other 10-17-2022 18:45-0400 SaO2% (BldA) [Mass fraction] 98 % Nasreen Delaney Other [employer] Other 07-20-2022 14:00-0500 Diastolic blood pressure 66 mm[Hg] Roman Yahaira [facility] 07-20-2022 14:00-0500 Heart rate 79 /min Roman Yahaira [facility] 07-20-2022 14:00-0500 Hourly Rounding Roman Yahaira [facility] 07-20-2022 14:00-0500 Mean blood pressure 81 mm[Hg] Roman Yahaira [facility] 07-20-2022 14:00-0500 Promise to Return Roman Yahaira [facility] 07-20-2022 14:00-0500 SaO2% (BldA) [Mass fraction] 97 % Roman Yahaira [facility] 07-20-2022 14:00-0500 Systolic blood pressure 110 mm[Hg] Roman Yahaira [facility] 07-20-2022 01:00-0500 Diastolic blood pressure 72 mm[Hg] Roman Yahaira [facility] 07-20-2022 01:00-0500 Heart rate 81 /min Roman Yahaira [facility] 07-20-2022 01:00-0500 Hourly Rounding Roman Yahaira [facility] 07-20-2022 01:00-0500 Mean blood pressure 89 mm[Hg] Roman Yahaira [facility] 07-20-2022 01:00-0500 Promise to Return Roman Yahaira [facility] 07-20-2022 01:00-0500 SaO2% (BldA) [Mass fraction] 99 % Roman Yahaira [facility] 07-20-2022 01:00-0500 Systolic blood pressure 122 mm[Hg] Roman Yahaira [facility] 07-20-2022 00:00-0500 Heart rate 83 /min Roman Yahaira [facility] 07-20-2022 00:00-0500 Hourly Rounding Roman Yahaira [facility] 07-20-2022 00:00-0500 Mean blood pressure 84 mm[Hg] Roman Yahaira [facility] 07-20-2022 00:00-0500 Promise to Return Roman Yahaira [facility] 07-20-2022 00:00-0500 SaO2% (BldA) [Mass fraction] 96 % Roman Yahaira [facility] 07-20-2022 00:00-0500 Systolic blood pressure 107 mm[Hg] Roman Yahaira [facility] 07-19-2022 21:47-0500 Body temperature 98.6 [degF] Roman Yahaira [facility] 07-19-2022 21:47-0500 Heart rate 113 /min Roman Yahaira [facility] 07-19-2022 21:47-0500 Respiratory rate 16 /min Roman Syed [facility] 07-08-2022 22:00-0500 Diastolic blood pressure 68 mm[Hg] Rj Pink [facility] 07-08-2022 22:00-0500 Respiratory rate 17 /min Rj Pink [facility] 07-08-2022 22:00-0500 SaO2% (BldA) [Mass fraction] 95 % Rj Pink [facility] 07-08-2022 22:00-0500 Systolic blood pressure 110 mm[Hg] Rj Pink [facility] 07-08-2022 21:43-0500 Body temperature 98.6 [degF] Rj Pink [facility] 07-08-2022 21:43-0500 Diastolic blood pressure 69 mm[Hg] Rj Pink [facility] 07-08-2022 21:43-0500 Heart rate 94 /min Rj Pink [facility] 07-08-2022 21:43-0500 Mean blood pressure 82 mm[Hg] Rj Pink [facility] 07-08-2022 21:43-0500 Systolic blood pressure 108 mm[Hg] Rj Pink [facility] 07-08-2022 21:00-0500 SaO2% (BldA) [Mass fraction] 93 % Rj Pink [facility] 07-08-2022 20:00-0500 Body temperature 99.5 [degF] Rj Pink [facility] 07-08-2022 20:00-0500 Diastolic blood pressure 58 mm[Hg] Rj Pink [facility] 07-08-2022 20:00-0500 Heart rate 110 /min Rj Pink [facility] 07-08-2022 20:00-0500 Mean blood pressure 74 mm[Hg] Rj Pink [facility] 07-08-2022 20:00-0500 SaO2% (BldA) [Mass fraction] 99 % Rj Pink [facility] 07-08-2022 20:00-0500 Systolic blood pressure 105 mm[Hg] Rj Pink [facility] 07-08-2022 17:47-0500 Heart rate 121 /min Rj Pink [facility] 06-23-2022 18:00-0500 Body height 154.94 cm Asim Palma Other [employer] Other 06-23-2022 18:00-0500 Body mass index (BMI) [Ratio] 34.01 kg/m2 Asim Palma Other [employer] Other 06-23-2022 18:00-0500 Body temperature 97.8 [degF] Asim Palma Other [employer] Other 06-23-2022 18:00-0500 Body weight 81.65 kg Asim Palma Other [employer] Other 06-23-2022 18:00-0500 Respiratory rate 18 /min Asim Palma Other [employer] Other 06-23-2022 18:00-0500 SaO2% (BldA) [Mass fraction] 98 % Asim Minerva Other [employer] Other 06-18-2022 18:30-0500 Body height 154.94 cm Belia Aguero Other [employer] Other 06-18-2022 18:30-0500 Body mass index (BMI) [Ratio] 34.01 kg/m2 Belia Aguero Other [employer] Other 06-18-2022 18:30-0500 Body temperature 98 [degF] Belia Aguero Other [employer] Other 06-18-2022 18:30-0500 Body weight 81.65 kg Belia Aguero Other [employer] Other 06-18-2022 18:30-0500 Respiratory rate 18 /min Belia Aguero Other [employer] Other 06-18-2022 18:30-0500 SaO2% (BldA) [Mass fraction] 98 % Belia Aguero Other [employer] Other 04-16-2022 18:15-0500 Body height 154.94 cm Belia Aguero Other [employer] Other 04-16-2022 18:15-0500 Body mass index (BMI) [Ratio] 34.01 kg/m2 Belia Aguero Other [employer] Other 04-16-2022 18:15-0500 Body temperature 98.1 [degF] Belia Aguero Other [employer] Other 04-16-2022 18:15-0500 Body weight 81.65 kg Calley Laci Other [employer] Other 04-16-2022 18:15-0500 Respiratory rate 18 /min Belia Aguero Other [employer] Other 04-16-2022 18:15-0500 SaO2% (BldA) [Mass fraction] 99 % Belia Aguero Other [employer] Other 03-21-2022 18:00-0400 Body height 154.94 cm Belia Vázquez Other [employer] Other 03-21-2022 18:00-0400 Body mass index (BMI) [Ratio] 34.01 kg/m2 Belia Vázquez Other [employer] Other 03-21-2022 18:00-0400 Body temperature 98.3 [degF] Belia Vázquez Other [employer] Other 03-21-2022 18:00-0400 Body weight 81.65 kg Belia Vázquez Other [employer] Other 03-21-2022 18:00-0400 Diastolic blood pressure 79 mm[Hg] Belia Vázquez Other [employer] Other 03-21-2022 18:00-0400 Respiratory rate 18 /min Belia Vázquez Other [employer] Other 03-21-2022 18:00-0400 SaO2% (BldA) [Mass fraction] 100 % Belia Vázquez Other [employer] Other 03-21-2022 18:00-0400 Systolic blood pressure 123 mm[Hg] Belia Vázquez Other [employer] Other 07-20-2021 13:15-0500 Body height 154.94 cm Asim Palma Other [employer] Other 07-20-2021 13:15-0500 Body mass index (BMI) [Ratio] 34.01 kg/m2 Asim Palma Other [employer] Other 07-20-2021 13:15-0500 Body temperature 98.4 [degF] Asim Palma Other [employer] Other 07-20-2021 13:15-0500 Body weight 81.65 kg Asim Palma Other [employer] Other 07-20-2021 13:15-0500 Diastolic blood pressure 66 mm[Hg] Asim Palma Other [employer] Other 07-20-2021 13:15-0500 Respiratory rate 18 /min Asim Palma Other [employer] Other 07-20-2021 13:15-0500 SaO2% (BldA) [Mass fraction] 97 % Asim Palma Other [employer] Other 07-20-2021 13:15-0500 Systolic blood pressure 102 mm[Hg] Asim Palma Other [employer] Other 12-07-2020 19:25-0400 Body height 157.5 cm [facility] Work [facility]: 12-07-2020 19:25-0400 Body mass index (BMI) [Ratio] 39.51 kg/m2 Simone Manley MD Work Phone: [employer] Work Phone: 12-07-2020 19:25-0400 Body temperature 98.91 [degF] Simone Manley MD Work Phone: [employer] Work Phone: 12-07-2020 19:25-0400 Body weight 97.98 kg Simone Manley MD Work Phone: [employer] Work Phone: 12-07-2020 19:25-0400 Diastolic blood pressure 81 mm[Hg] Simone Manley MD Work Phone: [employer] Work Phone: 12-07-2020 19:25-0400 Heart rate 71 /min Simone Manley MD Work Phone: [employer] Work Phone: 12-07-2020 19:25-0400 Respiratory rate 22 /min Simone Manley MD Work Phone: [employer] Work Phone: 12-07-2020 19:25-0400 SaO2% (BldA) [Mass fraction] 99 % Simone Manley MD Work Phone: [employer] Work Phone: 12-07-2020 19:25-0400 Systolic blood pressure 128 mm[Hg] Simone Manley MD Work Phone: [employer] Work Phone: Encounters Encounter Date Encounter Type Care Provider Facility Start: 07-12-2024 End: 07-12-2024 Office outpatient visit 15 minutes Donovan Vora DO Work Phone: [facility] Comment on above: Second trimester pre gnancy; 26 weeks gestation of Start: 07-12-2024 End: 07-12-2024 ambulatory DONOVAN VORA Not Available Start: 07-04-2024 End: 07-04-2024 Clinisync Result Encounter Generic External Data Provider [facility] External Department Unsolicited Start: 07-04-2024 End: 07-04-2024 Clinisync Result Encounter Generic External Data Provider [facility] External Department Unsolicited Start: 06-27-2024 End: 06-27-2024 Clinisync Result Encounter Generic External Data Provider [facility] External Department Unsolicited Start: 06-27-2024 End: 06-27-2024 Clinisync Result Encounter Generic External Data Provider [facility] External Department Unsolicited Start: 06-16-2024 End: 06-17-2024 Emergency department patient visit Chichi Roy Facility:[facility] Start: 06-14-2024 End: 06-14-2024 ambulatory DONOVAN VIELKA Not Available Start: 06-09-2024 End: 06-09-2024 Bamboo flowsheet Donovan [...] Start: 05-10-2024 End: 05-10-2024 flow sheet America Thompson PA Work Phone: [facility] Comment on above: Exposure to STD; Second trimester ; 17 weeks gestation of ; Need for maternal serum alpha-protein (MSAFP) screening; Screening, , for anatomic survey Start: 04-25-2024 End: 04-25-2024 Office outpatient visit 25 minutes Peng Olivares GLASS TECHNICIAN Work Phone: [facility] Comment on above: Strep throat (Primar [...] 03-28-2024 End: 03-28-2024 Telephone encounter Peng Olivares GLASS TECHNICIAN Work Phone: [facility] Start: 03-24-2024 End: 03-24-2024 Emergency department patient visit [facility] Start: 03-15-2024 End: 03-15-2024 ambulatory DONOVAN VIELKA Not Available Start: 03-10-2024 End: 03-10-2024 Office outpatient visit 5 minutes [facility] Vielka Nurse [facility] Comment on above: GA: 8w5d Start: 03-10-2024 End: 03-10-2024 ambulatory DONOVAN VIELKA Not Available Start: 02-11-2024 End: 02-17-2024 Orders Only Peng Olivares GLASS TECHNICIAN Work Phone: [facility] External Department Unsolicited Start: 02-11-2024 End: 02-11-2024 Telephone encounter Peng Olivares GLASS TECHNICIAN Work Phone: [facility] Start: 02-04-2024 End: 02-04-2024 ambulatory CORK INSULATION INSTALLER Georgie Fareed Work Phone: [facility] Work Phone: Start: 02-04-2024 End: 02-04-2024 Patient encounter procedure CORK INSULATION INSTALLER Georgie Fareed Work Phone: [facility] Work Phone: Start: 01-15-2024 End: 01-15-2024 Emergency department patient visit Roman SJefferson Syed [facility] Start: 01-11-2024 End: 01-14-2024 Orders Only Matti Sims DO Work Phone: [facility] External Department Unsolicited Start: 01-11-2024 End: 01-11-2024 ambulatory MATTI SIMS Not Available Start: 01-03-2024 End: 01-03-2024 Emergency department patient visit JELLY CHERY [facility] Start: 11-24-2023 End: 11-24-2023 ambulatory MD Jelly Chery Work Phone: [facility] Work Phone: Start: 11-24-2023 End: 11-24-2023 Patient encounter procedure MD Jelly Chery Work Phone: [facility] Work Phone: Start: 11-18-2023 End: 11-18-2023 Departed Referred MD Jelly Chery Work Phone: [facility] [place] Work Phone: Start: 11-18-2023 End: 11-18-2023 ambulatory MD Jelly Chery Work Phone: [facility] Work Phone: Start: 11-18-2023 End: 11-18-2023 Patient encounter procedure MD Jelly Chery Work Phone: [facility] Work Phone: Start: 10-30-2023 End: 10-30-2023 ambulatory MD Jelly Chery Work Phone: [facility] Work Phone: Start: 10-30-2023 End: 10-30-2023 Patient encounter procedure MD Jelly Chery Work Phone: [facility] Work Phone: Start: 10-20-2023 End: 10-20-2023 ambulatory JELLY CHERY Not Available Start: 10-13-2023 End: 10-13-2023 ambulatory MD Jelly Chery Work Phone: [facility] Work Phone: Start: 10-13-2023 End: 10-13-2023 Patient encounter procedure MD Jelly Chery Work Phone: [facility] Work Phone: Start: 10-01-2023 End: 10-01-2023 ambulatory PENG OLIVARES Not Available Start: 09-29-2023 End: 09-29-2023 ambulatory MD Jelly Chery Work Phone: [facility] Work Phone: Start: 09-29-2023 End: 09-29-2023 Patient encounter procedure MD Jelly Chery Work Phone: [facility] [place] Work Phone: Start: 09-07-2023 End: 09-07-2023 ambulatory MD Jelly Chery Work Phone: [facility] Work Phone: Start: 09-07-2023 End: 09-07-2023 Patient encounter procedure MD Jelly Chery Work Phone: [facility] Work Phone: Start: 07-27-2023 End: 07-27-2023 ambulatory Simone Bahena Facility:[facility] Start: 07-27-2023 End: 07-27-2023 Patient encounter procedure MD Jelly Chery Work Phone: [facility] Work Phone: Start: 07-22-2023 End: 07-22-2023 ambulatory SARAH PELLETIER Not Available Start: 07-05-2023 End: 07-05-2023 Office outpatient visit 25 minutes Rad Sims DO Work Phone: [facility] Comment on above: Recurrent acute supp urative otitis media without spontaneous rupture of tympanic membrane of both sides (Primary Dx); Pharyngitis, unspecified etiology Start: 06-29-2023 End: 06-30-2023 ambulatory MIGUEL ANG Facility:[facility] Start: 06-29-2023 End: 06-29-2023 Subsequent hospital visit by physician Xr [facility] Comment on above: Right hand pain [M79 .641] Start: 06-29-2023 End: 06-29-2023 Patient encounter procedure Miguel Ang PA-C Work Phone: Plastic Surgery Comment on above: Right hand pain (Jazzmine rena Dx) Start: 04-03-2023 End: 04-03-2023 Patient encounter procedure MD Jelly Chery Work Phone: [facility] Start: 04-03-2023 End: 04-03-2023 ambulatory MD Jelly Chery Work Phone: [facility] Work Phone: Start: 02-24-2023 End: 02-25-2023 ambulatory MARISA [facility] Start: 02-17-2023 ambulatory JAISON PETIT [facility] Start: 01-11-2023 End: 01-11-2023 Emergency department patient visit MD Jelly Chery Work Phone: [facility] Work Phone: Start: 10-17-2022 End: 10-17-2022 ambulatory Nasreen Delaney Other [employer] Other Start: 10-17-2022 Office outpatient vi sit 15 minutes Nasreen Delaney [facility] Start: 07-19-2022 End: 07-20-2022 Emergency department patient visit Roman Syed [facility] Start: 07-08-2022 End: 07-08-2022 Emergency department patient visit Rj Pink [facility] Start: 06-23-2022 End: 06-23-2022 ambulatory Asim Palma Other [employer] Other Start: 06-23-2022 Office outpatient vi sit 15 minutes Asim Palma [facility] Start: 06-18-2022 End: 06-18-2022 ambulatory Belia Aguero Other [employer] Other Start: 06-18-2022 Office outpatient vi sit 15 minutes Belia Aguero [facility] Start: 05-23-2022 End: 05-23-2022 ambulatory Asim Palma Other [employer] Other Start: 05-23-2022 Telephone encounter Asim Palma [facility] Start: 04-16-2022 End: 04-16-2022 ambulatory Belia Aguero Other [employer] Other Start: 04-16-2022 Office outpatient vi sit 15 minutes Belia Aguero [facility] Start: 03-21-2022 End: 03-22-[address] HAWA WHELAN [place] [employer] Other Start: 03-21-2022 Office outpatient vi sit 15 minutes Belia Vázquez [facility] Start: 11-17-2021 End: 11-17-[address] JULY QUEVEDO Facility:[facility] Start: 07-20-2021 End: 07-20-2021 ambulatory Asim Palma Other [employer] Other Start: 07-20-2021 Office outpatient vi sit 25 minutes Asim Minerva [facility] Start: 03-29-2021 End: 03-30-2021 ambulatory CONCHITA MEANS Facility:[facility] Start: 12-07-2020 End: 12-08-2020 Emergency department patient visit SIMONE MANLEY [facility] Start: 12-07-2020 End: 12-08-2020 Emergency department patient visit Simone Manley MD Work Phone: [facility] ED Comment on above: Trigger point with b ack pain (Primary Dx); Hepatic steatosis Procedures Date Procedure Procedure Detail Performing Clinician Start: 07-12-2024 Urnls dip stick/tablet rgnt non-auto w/o micrscp Donovan Vielka DO Work Phone: Start: 07-04-2024 GLUCOSE TOLERANCE 3 HOUR Donovan Vielka DO Work Phone: Start: 06-27-2024 ALL CBC WITH AUTO DIFF [...] Work Phone: Start: 04-04-2024 MLR HEMOGLOBIN A1C Dnoovan Vielka DO Work Phone: Start: 04-04-2024 RAPID PLASMA REAGIN, QUANT Donovan Vielka DO Work Phone: Start: 04-04-2024 Bacteria identified in Urine by Culture Generic External Data Provider Start: 04-04-2024 [facility] DRUG SCREEN RAPID (URINE) Donovan Vielka DO Work Phone: Start: 03-10-2024 Urnls dip stick/tablet rgnt non-auto w/o micrscp Donovan Elliotto DO Work Phone: Start: 02-11-2024 Gonadotropin chorionic quantitative Peng Olivares GLASS TECHNICIAN Work Phone: Start: 01-11-2024 Cytp cerv/vag auto [...] gorman DO Work Phone: Start: 07-07-2022 Tonsillectomy Romanwilliam Changner Start: 12-07-2020 Ct abdomen & pelvis w/o contrast material Mo'Men Carson Barr MD Work Phone: Start: 12-07-2020 Urinalysis microscopic only Mo'Men Carson Barr MD Work Phone: Start: 12-07-2020 Urnls dip stick/tablet rgnt auto w/o microscopy Mo'Men Carson Barr MD Work Phone: Start: 12-07-2020 Basic metabolic panel calcium total Mo'Men Carson Barr MD Work Phone: None (qualifier value) Rj Pink Plan of Treatment Date Care Activity Detail Author Start: 11-10-2029 DTaP/Tdap/Td vaccine (9 - Td or Tdap) DTaP/Tdap/Td vaccine (9 - Td or Tdap) [employer] Work Phone: Start: 11-10-2029 Urine microalbumin profile DTaP,Tdap,Td Vaccine (9 - Td or Tdap) [facility] Start: 01-11-2025 End: 01-11-2025 Patient encounter procedure 01/11/2025 10:45 AM EDT Office Visit [facility] [address] [place] [id number] Matti Sims, [address] [place] [address] [facility] Start: 10-18-2024 End: 10-18-2024 Patient encounter procedure 10/18/2024 8:15 AM EDT Office Visit [facility] [address] [place] [address] Jelly Chery MD [address] [place] [address] [facility] Start: 07-27-2024 End: 07-27-2024 Patient encounter procedure 07/27/2024 8:30 AM EST Routine [facility] [address] [place] [phone] America Thompson PA [address] [place] [address] [facility] Start: 07-07-2024 End: 07-07-2024 Patient encounter procedure 07/07/2024 9:10 AM EST Routine [facility] [address] [place] [id number] Donovan Vora DO [address] [place] [address] [facility] Start: 06-09-2024 End: 06-09-2025 CBC panel - Blood by Automated count CBC Lab Routine Diabetes mellitus screening Expected: 06/09/2024 (Approximate), Expires: 06/09/2025 [facility] Work Phone: Comment on above: Expected: 06/09/2024 (Approximate), Expires: 06/09/2025 Start: 06-09-2024 End: 06-09-2025 Measurement of glucose 1 hour after glucose challenge for glucose tolerance test Glucose tolerance, 1 hour Lab Routine Diabetes mellitus screening Expected: 06/09/2024 (Approximate), Expires: 06/09/2025 [facility] Comment on above: Expected: 06/09/2024 (Approximate), Expires: 06/09/2025 Start: 06-09-2024 End: 06-09-2024 Patient encounter procedure [facility] Comment on above: Arrived Start: 05-31-2024 End: 05-31-2024 Professional / ancillary services management 05/31/2024 10:00 AM EST Ancillary Procedure [facility] [address] [place] [address] [facility] Start: 05-10-2024 End: 06-10-2024 [...] AM EST Routine [facility] [address] [place] [id number] America Thompson PA [address] [place], [place] [id number] [facility] Start: 04-11-2024 End: 04-11-2024 Patient encounter procedure 04/11/2024 9:50 AM EST Routine [facility] [address] [place] [id number] Vielka Donovan, DO [address] [place] [address] [facility] Start: 03-28-2024 End: 03-28-2025 XR Radius and Ulna - right 2 Views XR forearm 2 views right Imaging STAT Injury of right wrist, initial encounter Right forearm pain Expected: 03/28/2024, Expires: 03/28/2025 [facility] Comment on above: Expected: 03/28/2024 , Expires: 03/28/2025 Start: 03-28-2024 End: 03-28-2025 XR Wrist - right 3 Views XR wrist 3+ views right Imaging STAT Injury of right wrist, initial encounter Right wrist pain Expected: 03/28/2024, Expires: 03/28/2025 [facility] Work Phone: Comment on above: Expected: 03/28/2024 , Expires: 03/28/2025 Start: 03-10-2024 End: 03-10-2025 ABO/Rh ABO/Rh Lab Routine Missed menses , unspecified gestational age Expected: 03/10/2024 (Approximate), Expires: 03/10/2025 [facility] Comment on above: Expected: 03/10/2024 (Approximate), Expires: 03/10/2025 Start: 03-10-2024 End: 03-10-2025 Blood type and Indirect antibody screen panel - Blood Type and screen Lab Routine Missed menses , unspecified gestational age Expected: 03/10/2024 (Approximate), Expires: 03/10/2025 [facility] Work Phone: Comment on above: Expected: 03/10/2024 (Approximate), Expires: 03/10/2025 Start: 03-10-2024 End: 03-10-2025 Drugs of abuse panel - Urine by Screen method Rapid drug screen, urine Lab Routine , unspecified gestational age Encounter for supervision of normal first in first trimester Expected: 03/10/2024 (Approximate), Expires: 03/10/2025 [facility] Comment on above: Expected: 03/10/2024 (Approximate), Expires: 03/10/2025 Start: 03-10-2024 End: 03-10-2025 US Pelvis transvaginal US OB transvaginal Imaging Routine Missed menses Expected: 03/10/2024 (Approximate), Expires: 03/10/2025 [facility] Comment on above: Expected: 03/10/2024 (Approximate), Expires: 03/10/2025 Start: 03-10-2024 End: 03-10-2024 ambulatory 03/10/2024 1:00 PM EDT Initial [facility] [address] [place] [address] [facility] Start: 03-10-2024 End: 03-10-2024 Professional / ancillary services management 03/10/2024 12:30 PM EDT Ancillary Procedure [facility] [address] [place] [address] [facility] Start: 02-11-2024 End: 02-10-2025 HCG,QUALITATIVE RFX TO QUANT ([facility]) HCG,QUALITATIVE RFX TO QUANT ([facility]) Lab Routine Positive urine test Expected: 02/11/2024 (Approximate), Expires: 02/10/2025 [facility] Work Phone: Comment on above: Expected: 02/11/2024 (Approximate), Expires: 02/10/2025 Start: 01-24-2024 Influenza vaccination Influenza Vacc ine (#1) [facility] Start: 01-11-2024 End: 01-11-2024 Patient encounter procedure 01/11/2024 11:00 AM EDT Office Visit [facility] [address] [place] [address] Matti Sims, DO [address] [place] [address] [facility] Start: 11-18-2023 Bacteria identified in Urine by Culture [facility] Start: 11-18-2023 [facility] Start: 10-20-2023 End: 10-20-2023 Patient encounter procedure 10/20/2023 8:15 AM EDT Office Visit [facility] [address] [place] [phone] Jelly Chery MD [address] [place] [address] [facility] Start: 09-29-2023 Plain X-ray of right hand XR hand RT min 3V* [facility] Start: 09-29-2023 XR Hand - right GE 3 Views [facility] Start: 05-25-2023 Depression Assessment Depression Ass essment [facility] Start: 01-23-2023 Covid-19 Vaccine ( season) Covid-19 Vaccine ( season) [facility] Start: 01-23-2023 Influenza vaccination Influenza Vacc ine (#1) [facility] Start: 01-23-2021 Influenza vaccination Flu vaccine (# 1) [facility] [employer] Phone: Start: 2018 Screening for malign ant neoplasm of cervix [facility] Start: 2015 Hepatitis C screening Hepatitis C Sc reening [facility] Start: 2015 HIV screening HIV Screening [facility] Start: 2013 Screening for Chlamy pam trachomatis Chlamydia screen [facility] Phone: Start: 02-19-2012 HIV screening HIV screen [employer] [facility] Work Phone: Start: 2011 Peds To Adult Transition Annual Assessment Peds To Adult Transition Annual Assessment [facility] Start: 2009 Peds To Adult Transition Initial Discussion Peds To Adult Transition Initial Discussion [facility] Start: 2003 Pneumococcal vaccination Pneumococcal Vaccine (1 of 2 - PCV) [facility] Start: 1998 Varicella vaccine (1 of 2 - 2-dose childhood series) Varicella vaccine (1 of 2 - 2-dose childhood series) [facility] Phone: Start: 1997 Hepatitis C screening Hepatitis C sc nathaile [facility] Phone: Atopobium vaginae DN A [Presence] in Vaginal fluid by CRYSTAL with probe detection [facility] Bacteria identified in Urine by Culture Urine culture Microbiology Routine Missed menses Ordered: 03/10/2024 [facility] Comment on above: Ordered: 03/10/2024 Bacterial vaginosis associated bacterium 2 DNA [Presence] in Vaginal fluid by CRYSTAL with probe detection [facility] CBC W Auto Different ial panel - Blood CBC and differential Lab Routine Missed menses , unspecified gestational age Ordered: 03/10/2024 [facility] Comment on above: Ordered: 03/10/2024 CHLAMYDIA TRACHOMATI S (GENITO/STI) CHLAMYDIA TRACHOMATIS (GENITO/STI) Lab Routine Exposure to STD Ordered: 05/10/2024 [facility] Comment on above: Ordered: 05/10/2024 Hemoglobin A1c/Hemoglobin.total in Blood Hemoglobin A1c Lab Routine Missed menses , unspecified gestational age Ordered: 03/10/2024 [facility] Comment on above: Ordered: 03/10/2024 Hepatitis B virus surface Ag [Presence] in Serum or Plasma by Immunoassay Hepatitis B surface antigen Lab Routine Missed menses , unspecified gestational age Ordered: 03/10/2024 [facility] Comment on above: Ordered: 03/10/2024 Hepatitis C virus Ab [Presence] in Serum or Plasma by Immunoassay Hepatitis C antibody Lab Routine Missed menses , unspecified gestational age Ordered: 03/10/2024 [facility] Comment on above: Ordered: 03/10/2024 HIV-1/HIV-2 antigen/antibody combination immunoassay HIV-1 and HIV-2 antibodies Lab Routine Missed menses , unspecified gestational age Ordered: 03/10/2024 [facility] Comment on above: Ordered: 03/10/2024 Megasphaera sp type 1 DNA [Presence] in Vaginal fluid by CRYSTAL with probe detection [facility] Neisseria gonorrhoea e DNA [Presence] in Unspecified specimen by CRYSTAL with probe detection Neisseria gonorrhea DNA probe, direct Lab Routine Exposure to STD Ordered: 05/10/2024 [facility] Comment on above: Ordered: 05/10/2024 Patient Education Outer Ear Infection ED [facility] Work Phone: Patient referral [facility] Work Phone: Reagin Ab [Presence] in Serum by RPR RPR Lab Routine Missed menses , unspecified gestational age Ordered: 03/10/2024 [facility] Comment on above: Ordered: 03/10/2024 Rubella antibody, IgG Rubella an tibody, IgG Lab Routine Missed menses , unspecified gestational age Ordered: 03/10/2024 [facility] Comment on above: Ordered: 03/10/2024 SURESWAB(R) ADVANCED VAGINITIS PLUS, TMA SURESWAB(R) ADVANCED VAGINITIS PLUS, TMA Pathology and Cytology Routine Exposure to STD Ordered: 05/10/2024 [facility] Work Phone: Comment on above: Ordered: 05/10/2024 End: 06-29-2024 XR HAND GENERAL 3V PA/LAT/OBL RIGHT XR HAND GENERAL 3V PA/LAT/OBL RIGHT Radiology Routine Right hand pain Once per week for 10 Occurrences starting 06/29/2023 until 06/29/2024, 1 completed [facility] Work Phone: Comment on above: Once per week for 10 Occurrences starting 06/29/2023 until 06/29/2024, 1 completed Immunizations Immunization Date Immunization Notes Care Provider Reynaldo [facility] 03-15-2024 Influenza, injectabl e, Madin [place] Canine Kidney, preservative free, quadrivalent Generic Provider [facility] 02-24-2022 Influenza, injectabl e, Madin [place] Canine Kidney, preservative free, quadrivalent Rad Sims DO Work Phone: [facility] 02-24-2022 influenza virus vacc ine, unspecified formulation Xr A21 [facility] 02-22-2021 influenza, injectabl e, quadrivalent, contains preservative Rad Sims DO Work Phone: [facility] 09-04-2020 COVID-19 Evelyn Gustafson ([employer]) MD Jelly Chery Work Phone: [facility] 08-14-2020 COVID-19 Sj, Evelyn ortega (Pf[employer]) MD Jelly Chery Work Phone: [facility] 11-11-2019 tetanus toxoid, redu maryanne diphtheria toxoid, and acellular pertussis vaccine, adsorbed MD Jelly Chery Work Phone: [facility] 05-12-2017 tetanus toxoid, redu maryanne diphtheria toxoid, and acellular pertussis vaccine, adsorbed Rj Pink [facility] 12-19-2016 hepatitis A vaccine, adult dosage Rad Sims DO Work Phone: [facility] 12-19-2016 Human Papillomavirus 9-valent vaccine Rad Sims DO Work Phone: [facility] 12-19-2016 meningococcal B vacc ine, recombinant, OMV, adjuvanted Rad Sims DO Work Phone: [facility] 08-22-2016 Human Papillomavirus 9-valent vaccine Rad Sims DO Work Phone: [facility] 08-22-2016 meningococcal B vacc ine, recombinant, OMV, adjuvanted Rad Sims DO Work Phone: [facility] 08-22-2016 meningococcal polysaccharide (groups A, C, Y and W-135) diphtheria toxoid conjugate vaccine (MCV4P) Rad Sims DO Work Phone: [facility] 06-19-2016 hepatitis A vaccine, adult dosage Rad Sims DO Work Phone: [facility] 06-19-2016 Human Papillomavirus 9-valent vaccine Rad Sims DO Work Phone: [facility] 12-13-2012 meningococcal polysaccharide (groups A, C, Y and W-135) diphtheria toxoid conjugate vaccine (MCV4P) Rad Sims DO Work Phone: [facility] 12-13-2012 tetanus toxoid, redu maryanne diphtheria toxoid, and acellular pertussis vaccine, adsorbed Rad Sims DO Work Phone: [facility] 11-18-2009 novel influenza-H1N1 -09, preservative-free, injectable Rad Sims DO Work Phone: [facility] 02-15-2002 diphtheria, tetanus toxoids and acellular pertussis vaccine, unspecified formulation Rad Bethany DO Work Phone: [facility] 02-15-2002 measles, mumps and rubella virus vaccine Rad Sims DO Work Phone: [facility] 02-15-2002 poliovirus vaccine, inactivated Rad Lintoner DO Work Phone: [facility] 05-22-1998 diphtheria, tetanus toxoids and acellular pertussis vaccine, unspecified formulation Rad Bethany DO Work Phone: [facility] 05-22-1998 haemophilus influenz ae type b vaccine, conjugate unspecified formulation Rad Sims DO Work Phone: [facility] 05-22-1998 trivalent poliovirus vaccine, live, oral Rad Sims DO Work Phone: [facility] 02-20-1998 measles, mumps and rubella virus vaccine Rad Sims DO Work Phone: [facility] 1997 diphtheria, tetanus toxoids and acellular pertussis vaccine, unspecified formulation Rad Sims DO Work Phone: [facility] 1997 haemophilus influenz ae type b vaccine, conjugate unspecified formulation Rad Sims DO Work Phone: [facility] 1997 hepatitis B vaccine, pediatric or pediatric/adolescent dosage Rad Sims DO Work Phone: [facility] 1997 diphtheria, tetanus toxoids and acellular pertussis vaccine, unspecified formulation Rad Sims DO Work Phone: [facility] 1997 haemophilus influenz ae type b vaccine, conjugate unspecified formulation Rad Sims DO Work Phone: [facility] 1997 poliovirus vaccine, inactivated Rad Sims DO Work Phone: [facility] 1997 diphtheria, tetanus toxoids and acellular pertussis vaccine, unspecified formulation Rad Sims DO Work Phone: [facility] 1997 haemophilus influenz ae type b vaccine, conjugate unspecified formulation Rad Sims DO Work Phone: [facility] Healthcare 1997 poliovirus vaccine, inactivated Rad Sims DO Work Phone: [facility] Healthcare 1997 hepatitis B vaccine, pediatric or pediatric/adolescent dosage Rad Sims DO Work Phone: [facility] 1997 hepatitis B vaccine, pediatric or pediatric/adolescent dosage Rad Sims DO Work Phone: [facility] Healthcare Payers Date Payer Category Payer [facility] [id number] 2024 Unknown [id number] 2023 Medicaid [id number] [id number] 2022 Private Health Insurance [id number] .[id number]. [id number] 2022 Unknown [id number]. 1.13.159.2. [id number] 2022 [employer] [place] [facility] [id number] 2.16.840.1.561914.19 1997 Unknown [id number] 2.16.840.1.533829.3.579.2. 175 1997 Unknown [id number] 2.16.840.1.866029.3.579.2. 593 1997 Unknown [id number] 2.16.840.1.186189.3.579.2. 593 1997 Unknown [id number] 2.16.840.1.590137.3.579.2. 93 1997 Unknown [id number] 2.16.840.1.148963.3.579.2. 727 1997 Unknown [id number] 2.16.840.1.983946.3.579.2. 727 1997 Unknown [id number] 2.16.840.1.454717.3.579.2. 727 1997 Unknown [id number] 2.16.840.1.391763.3.579.2. 1997 Unknown [id number] 2.16.840.1.429593.3.579.2. 1258 1997 Unknown [id number] 2.16.840.1.432469.3.579.2. 1258 1997 Unknown [id number] 2.16.840.1.664875.3.579.2. 1258 1997 Unknown [id number] 2.16.840.1.108638.3.579.2. 1258 1997 Unknown [id number] 2.16.840.1.709649.3.579.2. 1258 1997 Unknown [id number] 2.16.840.1.071079.3.579.2. 1258 1997 Unknown [id number] 2.16.840.1.397178.3.579.2. 1258 1997 Unknown [id number] 2.16.840.1.128947.3.579.2. 1258 1997 Unknown [id number] 2.16.840.1.017238.3.579.2. 1258 1997 Unknown [id number] 2.16.840.1.439266.3.579.2. 1258 1997 Unknown [id number] 2.16.840.1.415250.3.579.2. 9 1997 Unknown [id number] 2.16.840.1.590794.3.579.2. 9 1997 Unknown [id number] 2.16.840.1.567849.3.579.2. 9 1997 Unknown [id number] 2.16.840.1.155142.3.579.2. 9 1997 Unknown [id number] 2.16.840.1.342727.3.579.2. 1259 1959 Self-pay 1959 Unknown [id number] 1.2.840.616006.1.13.239.2. 7.3.798804.315 Medicaid [place] Advantage [id number] Unknown [id number] 2.16840.1.834412.3.579.2. 593 Unknown MMO [id number] Unknown [id number] 2.16840.1.119381.3.579.2. 531 Unknown [id number] 2.840.1.645608.3.579.2. 531 Unknown [id number] 2.840.1.900575.3.579.2. 531 Unknown [id number] 2.16840.1.502311.3.579.2. 531 Unknown [id number] 2.840.1.700243.3.579.2. 531 Social History Date Type Detail Facility Start: 12-07-2020 End: 10-21-2022 Tobacco smoking status DCIS Never smoker [facility] Comment on above: Denies Start: 12-07-2020 Alcohol intake Ex-drinker (finding) [facility] Phone: Start: 1997 Sex Assigned At Not on file [facility] [employer] Work Phone: Exposure to SARS-CoV -2 (event) Not sure [employer] Start: 06-29-2023 End: 01-11-2024 Sex Assigned At [facility] Tobacco [facility] Comment on above: Denies. Tobacco smoking status No Smokin g Status Entered [facility] Start: 1995 Sex Assigned At Female F [facility] Start: 06-29-2023 Tobacco smoking stat [facility] Occasional tobacco smoker [facility] Start: 10-21-2022 End: 06-29-2023 Tobacco use and exposure Smokeless tobacco non-user [facility] Start: 06-29-2023 End: 01-11-2024 History of Social function [facility] Start: 06-29-2023 Tobacco Comment Vapes occasionally [facility] Start: 07-05-2023 End: 04-25-2024 Alcohol intake Current [...] Start: 07-27-2023 End: 03-24-2024 Tobacco smoking status [facility] Ex-smoker (finding) [facility] How many standard drinks containing alcohol do you have on a typical day? Patient does not drink [facility] Start: 01-11-2024 Alcohol Comment Once in a while [facility] Start: 01-23-2024 [facility] Go[facility] Date Patient Goal Desired Activity /State Personal health goal Functional Status Date Assessment Result Facility 03-24-2024 Functional Status N/A [facility] 01-15-2024 Functional Status N/A [facility] 07-19-2022 Functional Status N/A [facility] 07-08-2022 Functional Status N/A [facility] Clinical Notes 07-20-2021 to 07-12-2024 Liliana Morales, FOREIGN - 07/12/2024 9:30 AM Terra Rhodes, FOREIGN - 06/09/2024 8:50 AM PARADISE Buitrago - 05/10/2024 9:40 AM Vidhya Olivares NP - 04/25/2024 9:00 AM EST Note Date & Type Note Facility 07-12-2024 History of Presen t illness Narrative Reason [...] nursing note reviewed. Exam conducted with a device test engineer present. Vitals: Estimated body mass index is 39.76 kg/m as calculated from the following: Height as of 01/11/24: 5' 2 . Weight as of 06/09/24: 217 lb 6.4 oz. BP: Patient's last menstrual period was 01/09/2024. ASSESSMENT & PLAN ICD-10-CM 1. Second trimester Z34.92 POCT urinalysis dipstick manually resulted 2. 26 weeks gestation of Z3A.26 Return OB: Patient presents today for a routine obstetrics appointment. Patient is currently 26w3d . Patient states she is doing well but has complaints of being tired due to current . Patient has verbalizes frequent movement. labor precautions was discussed/given. Pt taking baby aspirin. Pt has repeat anatomy scan on the . Orders Placed This Encounter Procedures POCT urinalysis dipstick manually resulted Follow Up: Patient is to return to office in 2 week for routine OB appointment. Documented by Liliana Morales LPN on behalf of: Donovan Vora DO documented in this encounter [facility] 06-17-2024 Note ED Patient Education Note Gastroenterology [...] added (diluted fruit juice). ??? Eat bland, flzl-px-exieru foods in small amounts as you are able. These foods include bananas, applesauce, rice, lean meats, toast, and crackers. ??? Avoid fluids that contain a lot of sugar or caffeine, such as energy drinks, sports drinks, and soda. ??? Avoid alcohol. ??? Avoid spicy or fatty foods. General instructions ??? Take chdz-ltm-fjsralx and prescription medicines only as told by your health care provider. ??? Drink enough fluid to keep your urine pale yellow. ??? Wash your hands often using soap and water for at least 20 seconds. If soap and water are not available, use hand digitizer operator. ??? Make sure that everyone in your [...] and drinking to prevent dehydration. ??? Take nilu-mqc-hsbktuh and prescription medicines only as told by [...] provider. Document Revised: 11/15/2021 Document Reviewed: 11/15/2021 [employer] Patient Education ? 2023 [employer]. [facility] 06-09-2024 History of Presen t illness [...] nursing note reviewed. Exam conducted with a device test engineer present. Vitals: Estimated body mass index [...] Donovan Vora DO documented in this encounter [facility] 05-10-2024 History of Presen t illness Narrative [...] of: PARADISE Griffiths documented in this encounter [facility] 04-25-2024 History of Presen t illness Narrative Images from the original note were not included. [address] , [address] [facility], [address] P: [phone] F: [phone] [facility] Historian of HPI: patient Devorah Shelton is [...] ear normal. Nose: Nose normal. Mouth/Throat: Lips: [place]. Mouth: Mucous membranes are moist. Pharynx: Oropharynx [...] gestation of Reviewed. documented in this encounter [facility] 04-11-2024 History of Presen t illness Narrative [...] nursing note reviewed. Exam conducted with a device test engineer present. Vitals: Estimated body mass index [...] or undercooked meat, and stay away from [facility]. Patient has been consulted regarding any further do's and don'ts of . Patient voiced understanding and all questions and concerns were answered. Orders Placed This Encounter Procedures POCT urinalysis dipstick manually resulted Follow Up: Patient is to return in 4 weeks for routine OB appointment. Documented by iVola Rhodes LPN on behalf of: Donovan Vora DO documented in this encounter [facility] 03-28-2024 Telephone encounter Note Pt fell last [...] Ordered to [facility]. She as made aware. [facility] 03-28-2024 Miscellaneous Notes Pt fell last week. [...] Ordered to [facility]. She as made aware. documented in this encounter [facility] 03-25-2024 Hospital Discharg e instructions Patient Education [...] are safe for you. General instructions Take njhl-laf-agkgurs and prescription medicines only as told by [...] provider. Document Revised: 09/17/2020 Document Reviewed: 09/17/2020 [employer] Patient Education 2023 [employer]. Follow Up Care 03/24/2024 18:46:04 With:JELLY CHERY Address: [address] [facility] [address] [place] [address]- Business (1) When:03/27/2024 [facility] 03-24-2024 Note ED Patient Education Note [...] safe for you. General instructions ??? Take ghdr-bhi-csgskhi and prescription medicines only as told by [...] swelling gets worse (more content not included)... [facility] 03-10-2024 History of Presen t illness [...] Mother Ashleigh Hyperlipidemia Mother Ashleigh Stroke Mother Asheligh No Known Problems Father unknown Asthma Maternal [...] or undercooked meat, and stay away from [facility]. Patient has also been advised to [...] by: Sarah Land documented in this encounter [facility] 02-11-2024 Telephone encounter Note Urine test +. Patient lab requested. [facility] 02-11-2024 Miscellaneous Notes Urine test +. Patient lab requested. documented in this encounter [facility] 01-16-2024 Hospital Discharg e instructions Patient Education [...] mouth or applied to the skin. Take biaw-ydn-ldkdxqd and prescription medicines only as told by [...] provider. Document Revised: 09/13/2020 Document Reviewed: 08/22/2020 [employer] Patient Education 2022 [employer]. Follow Up Care 01/15/2024 21:25:10 With:JELLY CHERY Address: [address] [place], [place] [phone]- Business (1) When:01/18/2024 Comments:To schedule follow-up appointment with your family physician if symptoms not improve in the next 2 to 3 days. Alternate Tylenol, ibuprofen, and ice as needed for pain management. Return to the ED with any worsening symptoms [facility] 01-15-2024 Note ED Patient Education Note [...] mouth or applied to the skin. Take zanx-hjs-vjysnte and prescription medicines only as told by [...] provider. Document Revised: 09/13/2020 Document Reviewed: 08/22/2020 [employer] Patient Education ? 2022 [employer]. [facility] 01-15-2024 Evaluation + Plan note Extrac betty from: Title:ED Note Author:Whitney Frost PA-C te:01/15/24 Hand pain, left (M79.642: Pa in in left hand) Orders: XR Hand 3+ Views Left [facility] 02-11-2024 History of Present illness Narrative* Rad Sims, DO - 07/05/2023 12:25 PM EST HPI: [...] TEST(S) ORDERS FOR RESULTS [id number] NoteHNO ID: [id number] Author: CHRISTEN DIAS RT(R) Service: Radiology Author [...] PATIENT PRESENTS WITH AN IMPLANTABLE OR ATTACHED MANAGER CORPORATE COMMUNICATIONS: No RADIOLOGY DEPARTMENT: General X-ray: Exam(s) Completed: Upper Extremity X-Ray(s): Hand, right PERIPHERAL IV DATA: Not applicable SIGNED BY: RT Lb(R) June 29, 2023 4:27 [facility]02-05-2024 NoteHNO ID: [id number] Author: MIGUEL ANG PA-C Service: ? Author Type: Physician Racquet Maker Type: Progress Notes Filed: 06/30/2023 08:33 Note Text: PLASTIC SURGERY DEPARTMENT [facility] Hand Surgery Note [] New referred by []self []physician.......... [] Follow-up CC: ..right hand pain............ ? HPI: Devorah is a 28 year old female who presnets after being bit by a dog in February 2023. Reports was bit at the [facility] and has never healed correctly. Patient also suffered infection of the right hand following a dog bite which she was treated with antibiotics. She reported that the infection started to move up the arm past the wrist. 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 Dominant Hand: [...] to calculate BSA. AXEL (more content not included)...[facility]02-05-2024 History of Present illness Narrative* Christen Dias, RT(R) - 06/29/2023 4:30 PM EST Radiology [...] PATIENT PRESENTS WITH AN IMPLANTABLE OR ATTACHED MANAGER CORPORATE COMMUNICATIONS: No RADIOLOGY DEPARTMENT: General X-ray: Exam(s) Completed: Upper Extremity X- Ray(s): Hand, right PERIPHERAL IV DATA: Not applicable SIGNED BY: RT Lb(R) June 29, 2023 4:27 PM [facility] History of Present illness Narrative* Miguel Ang PA-C - 06/29/2023 4:16 PM EST PLASTIC SURGERY DEPARTMENT [facility] Hand Surgery Note [] New referred by []self []physician.......... [] Follow-up CC: ..right hand pain............ ? HPI: Devorah is a 28 year old female who presnets after being bit by a dog in February 2023. Reportswas bit at the [facility] and has never healed correctly. Patient also suffered infection of the right hand following a dog bite which she was treated with antibiotics. She reported that the infection started to move up the arm past the wrist. 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 Dominant Hand: [...] -[] Boutonniere deformity +[] -[] +[] -[] Tafton neck deformity +[] -[] +[] -[] FINGERS [...] deformity +[] -[x] Boutonniere deformity +[] -[x] Tafton neck deformity +[] -[x] WRIST RIGHT LEFT [...] []consult pain management []consult orthopedics Follow-up: [x]with GLASS TECHNICIAN [] with []after tests completed [x]PRN []1 [...] are not fully corrected. documented in [facility] NoteOrthopedic Surgery Subjective Follow-up of the Right [...] exhibit full active and passive ROM. Strength: bottom painter 5/5, thumb 5/5, interossei 5/5 Sensation: intact [...] is planning on doing hand therapy in [place]. - WBAT and ROM of digits as [...] may be an additional personal documentation from me.[facility]09-26-2023 Note 27-year-old female tgcfs-jqiv-pcycxqdq who sustained a dog bite to her [...] of motion exercises with occupational therapy at [facility]. She will complete her antibiotic regime. We will have her follow-up with Dr. Smallwood next week. She will report immediately the emergency room should she develop any signs of infection.[facility]05-26-2023 Evaluation note* Encounter Date Diagnosis Assessment [...] physician if no improvement in 2-3 days [facility] Other 02-26-2023 Hospital Discharge instructions Patient Education [...] at all times when lying down. Take rnhj-xmh-dmipndb and prescription medicines only as told by [...] 03/11/2005 Document Revised: 04/23/2018 Document Reviewed: 04/03/2017 [employer] Patient Education 2020 [employer]. Follow Up Care 07/19/2022 21:36:50 With:PALMIRA RIGGS Address: [address], [address] [address]- Business (1) When:Within 3 Day(s) [facility]02-25-2023 Evaluation + Plan noteExtracted from: Title:ED Note Author:Roman Syed DO. Date :07/19/22 [facility]02-15-2023 Hospital Discharge instructions Patient Education 07/08/2022 [...] 08/02/2012 Document Revised: 04/23/2018 Document Reviewed: 07/04/2016 [employer] Patient Education 2020 [employer]. 07/08/2022 22:15:17 Dysphagia Eating Plan, Pureed Dysphagia Eating Plan, Pureed This diet is helpful for people with moderate to severe swallowing problems. Pureed foods are smooth and are prepared without lumps so that they can be swallowed safely. Work with your health care provider and your diet and animal nutrition teacher (dietitian) to make sure that you are [...] it. This can be done with a investment consultant. ?Moistening it. This can be done by [...] best for you. Grains Soft breads, pancakes, Rwandan toast, muffins, and bread stuffing pureed to [...] foods Coarse or seeded herbs and spices. [place] preserves. Jams with seeds. Whole sandwiches. Non-pureed casseroles. Clarion soups. Summary Pureed foods can be helpful [...] 05/11/2006 Document Revised: 09/01/2019 Document Reviewed: 07/14/2017 [employer] Patient Education 2020 [employer]. 07/08/2022 22:15:17 Dysphagia Eating Plan, Minced and [...] health care provider and your diet and animal nutrition teacher (dietitian) to make surethat you are following [...] Cooking You may need to use a investment consultant, whisk, or masher to soften some of [...] or seeds. Pancakes, sweet rolls, pastries, and Rwandan toast that have been moistened with syrup [...] vegetables, such as celery, peas, broccoli, cabbage, [place] sprouts, and asparagus. Potato skins. Potato and other vegetable chips. Fried or Rwandan-fried potatoes. Cooked corn and peas. Fruits Hard, [...] 05/11/2006 Document Revised: 09/01/2019 Document Reviewed: 08/21/2017 [employer] Patient Education 2020 [employer]. 07/08/2022 22:15:17 Dehydration, Adult, Ecli-ic-Uxqb Dehydration, Adult Dehydration is when there is [...] a lot of fat or sugar. Take dlir-rnc-tyzuhhd and prescription medicines only as told by [...] 03/07/2010 Document Revised: 04/23/2018 Document Reviewed: 07/04/2016 [employer] Patient Education [employer]. Follow Up Care 07/08/2022 17:43:05 With:PALMIRA RIGGS Address: [facility], [place] [phone] Business (1) When:07/11/2022 21:56:31 [facility]01-30-2023 Evaluation note* Encounter Date Diagnosis Assessment [...] should improve within the next 4-7 days. [facility] Other 01-25-2023 Evaluation note* Encounter Date Diagnosis [...] covered if open and draining. 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 May try to treat with piercing still [...] Pt understood and agreed to tx plan. [facility] Other 12-30-2022 Evaluation note* Encounter Date Diagnosis Assessment Notes Treatment Notes Treatment Clinical Notes Apr, Strep pharyngitis (ICD-10 - J02.0) [facility] Other 11-23-2022 Evaluation note* Encounter Date Diagnosis [...] Pt understood and agreed to treatment plan. [facility] Other 10-28-2022 Evaluation note* Encounter Date Diagnosis [...] Pt understood and agreed to treatment plan. [facility] Other 02-26-2022 Evaluation note* Encounter Date Diagnosis [...] days. Patient understands and agrees the plan. [facility] Other Evaluation + Plan note No data available for this section [facility] Trigger point with back pain- Primary Backache, unspecified Hepatic steatosis Other chronic nonalcoholic liver disease [facility]: evaluation noteNo assessment information available [facility] Work Phone: Evaluation note* Diagnosis Right hand pain Pain in limb [facility] Diagnosis Right hand pain- Primary Pain in limb [facility] this [facility]* Diagnosis Recurrent acute suppurative otitis media without spontaneous rupture of tympanic membrane of both sides- Primary Pharyngitis, unspecified etiology [facility] Diagnosis Onset Date Resolution Status Dog bite of right hand with infection acute [facility] Work Phone: Evaluation note* Diagnosis Onset Date Resolution Status Dog bite of right hand with infection acute Abnormal MRI acute Dog bite of right hand with infection acute Injury of right hand acute [facility] Work Phone: Evaluation note* Diagnosis Onset Date Resolution Status Dog bite of right hand with infection acute Dog bite of right hand with infection acute Injury of right hand acute Dog bite of right hand acute [facility] Work Phone: Evaluation note* Diagnosis Onset Date Resolution Status Dog bite of right hand with infection acute Injury of right hand acute Dog bite of right hand acute Pain of right middle finger acute [facility] Work Phone: Evaluation note* Diagnosis Onset Date Resolution Status Dog bite of right hand with infection acute Injury of right hand acute Dog bite of right hand acute Pain of right middle finger acute Skin yeast infection acute [facility] Work Phone: Evaluation note* Diagnosis Onset Date Resolution Status Dog bite of right hand with infection acute Injury of right hand acute Dog bite of right hand acute Pain of right middle finger acute Skin yeast infection acute Dog bite of right hand acute Pain of right middle finger acute [facility] Work Phone: Evaluation note* Diagnosis Onset Date Resolution Status Dog bite of right hand acute Pain of right middle finger acute [facility] Work Phone: Evaluation note* Diagnosis Missed menses , unspecified gestational age Encounter for supervision of normal first in first trimester [facility] Diagnosis Injury of right wrist, initial encounter- Primary Right wrist pain Pain in joint, forearm Right forearm pain [facility] Diagnosis 13 weeks gestation of Second trimester state, incidental [facility]* Diagnosis Strep throat- Primary Streptococcal sore throat Pharyngitis, unspecified etiology 15 weeks gestation of [facility] Diagnosis Exposure to STD Second trimester state, incidental 17 weeks gestation of Need for maternal serum alpha-protein (MSAFP) screening Screening, , for anatomic survey Encounter for anatomic survey [facility] Diagnosis Positive urine test- Primary [facility]* Diagnosis Second trimester state, incidental 21 weeks gestation of Diabetes mellitus screening Screening for diabetes mellitus Encounter for follow-up ultrasound of anatomy Encounter for follow-up ultrasound of anatomy [facility] Diagnosis Second trimester state, incidental 26 weeks gestation of [facility] N[facility] - Reported* Type Description Date Medical History otitis media Medical History depression and anxiety Medical History asthma Medical History joint swelling Surgical History adenoidectomy Surgical History PE tubes [facility] Other History general Narrative - Reported* Type Description Date Medical History otitis media Medical History depression and anxiety Medical History asthma Medical History joint swelling Surgical History adenoidectomy Surgical History PE tubes Surgical History tonsillectomy 06/2022 [facility] Other Progress note No data available for this section [facility] for referral (narrative)* Diagnostic Procedure Only (Routine) - Authorized Specialty Diagnoses / Procedures Referred By Leodan simeon Referred To Contact XR IMAGING Diagnoses Right hand pain Procedures XR HAND GENERAL 3V PA/LAT/OBL RIGHT RADEX HAND MINIMUM 3 VIEWS Brianda Cartwright MD [address] [place] [address] Xr Imaging [place] [address] Referral ID Status Reason Start Date Expiration Date Visits Requested Visits Authorized [id number] Authorized Auto-Generat ed Referral 06/29/2023 07/28/2024 10 10 [facility] for referral (narrative)* Diagnostic Procedure Only (Routine) - Authorized Specialty Diagnoses / Procedures Referred By Leodan simeon Referred To Contact XR IMAGING Diagnoses Right hand pain Procedures XR HAND GENERAL 3V PA/LAT/OBL RIGHT RADEX HAND MINIMUM 3 VIEWS Brianda Cartwright MD [address] [place] [id number] [place] [address] Referral ID Status Reason Start Date Expiration Date Visits Requested Visits Authorized [id number] Authorized Auto-Generat ed Referral 06/29/2023 07/28/2024 10 10 [facility] Summary Purpose Family History Relationship Condition Age [...] section and content) DATE CREATED AUTHOR 12/16/2020 [facility] DATE CREATED AUTHOR AUTHOR'S ORGANIZ ATION 03/27/2022 [facility] DATE CREATED AUTHOR AUTHOR'S ORGANIZ ATION 10/01/2022 [facility] dical Specialist DATE CREATED AUTHOR AUTHOR'S ORGANIZ ATION 02/25/2023 [facility] DATE CREATED AUTHOR AUTHOR'S ORGANIZ ATION 07/04/2023 [facility] DATE CREATED AUTHOR AUTHOR'S ORGANIZ ATION 11/22/2023 [facility] DATE CREATED AUTHOR AUTHOR'S ORGANIZ ATION 01/06/2024 [facility] DATE CREATED AUTHOR AUTHOR'S ORGANIZ ATION 06/18/2024 [facility] DATE CREATED AUTHOR AUTHOR'S ORGANIZ ATION 07/13/2024 [facility] dical Specialists EPIC REASON FOR VISIT (unrecogniz ed section and content) Reason Comments Radio Gen A21 Specialty Diagnoses / Procedures Referred By Contac t Referred To Contact XR IMAGING Diagnoses Right hand pain Procedures XR HAND GENERAL 3V PA/LAT/OBL RIGHT RADEX HAND MINIMUM 3 VIEWS Brianda Cartwright MD [address] [place] [address] [place] [address] Referral ID Status Reason Start Date Expiration Date Visits Requested Visits Authorized [id number] Authorized Auto-Generat ed Referral 06/29/2023 07/28/2024 10 10 Reason Comments Initial Visit Reason Comments Routine Visit Patient Care team informatio n (unrecognized section and content) Team Status: Active Member Role Status Adalid Chery MD Primary Care Provider Active Team Status: Inactive Member Role Status Adalid Chery MD Primary Care Provider Active Simone Meng MD Emergency Provider Active Team Status: Inactive Member Role Status Adalid Chery MD Primary Care Provider Active Susie Johnson NP-C Attending Provider Active Cushion Maker Hand Relationship Specialty Start Date End Date Jelly Chery MD [address] [place] [address] Referring Internal Medicine 06/26/23 [employer]ushion Maker Hand Relationship Specialty Start Date End Date Jelly Chery MD [address] [place] [address] Referring Internal Medicine 06/26/23 [employer]ushion Maker Hand Relationship Specialty Start Date End Jelly Chery MD [address] [place] [address] PCP - General Internal Medicine 10/17/22 Team [...] Provider Active St art: September 29, 2023 Calley Laci , PA-C Attending Provider Active St art: September 29, 2023 Team Status: Inactive Member Role Status Dates Jelly Chery MD Primary Care Provider Active St art: October 13, 2023 End: October 13, 2023 Swapan Caceres MD Attending Provider Active Start: October [...] February 04, 2024 End: February 04, 2024 Cushion Maker Hand Relationship Specialty Start Date End Date Jelly Chery MD [address] [place] [address] PCP - General Internal Medicine 10/17/22 Cushion Maker Hand Relationship Specialty Start Date End Date Jelly Chery MD [address] [place] [address] PCP - General Internal Medicine 10/17/22 Cushion Maker Hand Relationship Specialty Start Date End Date Jelly Chery MD [address] [place] [address] PCP - General Internal Medicine 10/17/22 Cushion Maker Hand Relationship Specialty Start Date End Date Jelly Chery MD [address] [place] [address] PCP - General Internal Medicine 10/17/22 Cushion Maker Hand Relationship Specialty Start Date End Date Jelly Chery MD [address] [place] [address] PCP - General Internal Medicine 10/17/22 Cushion Maker Hand Relationship Specialty Start Date End Date Jelly Chery MD [address] [place] [address] PCP - General Internal Medicine 10/17/22 Cushion Maker Hand Relationship Specialty Start Date End Date Jelly Chery MD [address] [place] [address] PCP - General Internal Medicine 10/17/22 Cushion Maker Hand Relationship Specialty Start Date End Date Jelly Chery MD [address] [place] [address] PCP - General Internal Medicine 10/17/22 Cushion Maker Hand Relationship Specialty Start Date End Date Jelly Chery MD [address] [place] [address] PCP - General Internal Medicine 10/17/22 Cushion Maker Hand Relationship Specialty Start Date End Date Jelly Chery MD [address] [place] [address] PCP - General Internal Medicine 10/17/22 Cushion Maker Hand Relationship Specialty Start Date End Date Jelly Chery MD [address] [place] [address] PCP - General Internal Medicine 10/17/22 Cushion Maker Hand Relationship Specialty Start Date End Date Jelly Chery MD [address] [place] [address] PCP - General Internal Medicine 10/17/22 Goals [...] or prosecute any alcohol or drug abuse patient.[facility] the event this information is protected by the Federal Confidentiality of Alcohol and Drug Abuse Patient Records regulations: The Federal rules restrict any use of the information to criminally investigate or prosecute any alcohol or drug abuse patient.[facility] FOR RECORDS PERTAINING TO PATIENTS WHO ARE [...] BE BASED ON THE PRIMARY CLINICAL RECORDS. [facility] [employer] [facility]. provides no warranty or guarantee of the accuracy or completeness of information in this document.
--- NOTE | 2024-07-22 19:42 | US_ITS ---
[address] [address] Patient Name: MACARENA GAMBLE MRN: [id number] date: 1995 Sex: F Assigned Patient Location: US Current Patient Location: Accession/Order Number: [id number] Exam Date: 07/23/2024 09:13 Report Date: 07/23/2024 09:15 At the request of: NAYELY WILLS DO Procedure: US OB incomplete anatomy US OB incomplete anatomy 07/22/2024 8:35 PM SIGNS AND SYMPTOMS: ^10/15/2024 ^ENCOUNTER FOR FOLLOW UP OF ANATOMY Z36.2 PROTOCOL: Transabdominal imaging COMPARISON: 03/10/2024 FINDINGS: A normal four-chamber heart is visualized. There is an estimated heart rate of 134 bpm. Estimated gestational age is 27 weeks and 6 days. US/US OB incomplete anatomy IMPRESSION: A normal four-chamber heart is visualized. There is an estimated heart rate of 134 bpm. Impression dictated by: Noel Barfield M.D.07/23/2024 9:15 AM Dictation Location: [place] [address] Electronically authenticated by: [id number] Y Date: 07/23/2024 09:15
== END 2024-07-22 19:31 | disposition home or self-care (01) ==
LOC: US 19:30
PROVIDERS: PCP Internal Medicine; Visit Provider Obstetrics & Gynecology
DX: Z36.2 Encounter for other antenatal screening follow-up (principal); Z3A.27 27 weeks gestation of pregnancy
CPT/HCPCS: 76815

== ENCOUNTER 2024-07-31 22:19 | Emergency (ER) | payer BC, OTHER, SELFPAY ==
--- OUTSIDE RECORDS SUMMARY | 2024-07-31 22:27 | XMS_ITS | CCD ---
Author Organization [facility] Care Team Providers Care Lead Systems Architect Name Role Phone Palmira Riggs DO Primary Care Provider [phone] SIMONE MANLEY Attending Unavailable PALMIRA RIGGS Primary [...] Care Provider MD Simone Meng Emergency Provider [phone] MARISA SMALLWOOD Referring Unavailable MARISA SMALLWOOD Attending Unavailable JAISON PETIT Attending Unavailable MD Jelly Chery Primary Care Provider [phone] MD Simone Meng Emergency Provider [phone] JONATHAN Johnson Attending Provider Jelly Chery MD Unavailable MIGUEL ANG Attending Unavailable BRIANDA CARTWRIGHT Referring Unavailable Jelly Chery MD Primary Care Provider [phone] MD Jelly Chery Primary Care Provider MD Simone Bahena Attending Provider OJ Aguero Attending Provider [phone] MD Jelly hCery Primary Care Provider [phone] KRYSTAL Guerrier Attending Provider [phone] Risaliclaudine, Susie Admitting Unavailable Risaliti, Susie Attending Unavailable Miri, Jelly Primary Care Unavailable Georgei Guerrier Admitting Unavailable Georgie Guerrier Attending Unavailable [...] VORA Referring Unavailable DONOVAN VORA Attending Unavailable AMERICA THOMPSON Attending Unavailable PENG OLIVARES Attending Unavailable PENG OLIVARES Referring Unavailable JELLY CHERY Attending Unavailable MATTI SIMS Attending Unavailable PENG OLIVARES Referring Unavailable DONOVAN VORA Attending Unavailable PENG OLIVARES Attending Unavailable AMERICA THOMPSON Attending Unavailable DONOVAN VORA Attending Unavailable Allergies Allergy Classification Reported Allergen(s) Allergy Type Date of Onset Reaction(s) Facility Clavulanate (3 sources) Clavulanate; Translations: [clavulanic acid] Drug Allergy 4 Nausea, vomiting, diarrhea [facility] Penicillins (antibiotic) (7 sources) Penicillins; Translations: [Penicillins] Drug Allergy 1 vomiting, diarrhea, Nausea [facility] Unclassified (20 sources) Amoxicillin-Pot Clavulanate Propensity to adverse reactions to drug 1 Diarrhea [facility] (7 sources) Amoxicillin / Clavulanate; Translations: [amoxicillin-cl avulanate] Drug Allergy vomiting, diarrhea, rash [facility] (2 sources) Amoxicillin / Clavulanate; Translations: [Augmentin] Drug Allergy [facility] (1 source) Penicillin Drug Allergy [facility] (20 sources) Clavulanate Drug Allergy 3 GI intolerance [facility] (12 sources) Penicillins; Translations: [PENICILLINS] Allergy to substance 1 GI Upset, Rash [facility] (20 sources) Penicillin G sodium Allergy to substance 3 [facility] (7 sources) Amoxicillin Drug Allergy 4 vomiting, diarrhea [facility] Medications Current Medications Medication Drug Class(es) [...] 2023 10:14am take 1 capsule by mo ut every twenty-four hours Cymbalta 30 MG 1 [...] 07-27-2023 Fluticasone Propionate (Flon ase) 50 mcg/actuation Crump,Suspension Discontinued 2 SPRAY INTRANASAL Daily January 11, [...] Antifungal Start: 10-30-2023 End: 03-10-2024 nystatin (Mycostatin) 480847 UNIT/GM powder Twice daily 10/30/2023 03/10/2024 Discontinued Start: 10-30-2023 End: 02-04-2024 Nystatin Discontinued 1 APPL IC TOPICAL Twice daily 30 7 October 30, 2023 12:00am February 04, 2024 1:27pm Start: 09-29-2023 End: 02-04-2024 Nystatin Discontinued TOPICA L September 29, 2023 12:00am February 04, 2024 1:27pm Start: 10-17-2022 Nystatin 44398 0 UNIT/GM 1 application Externally Twice a day September, Active nystatin 324087 unt/ml / triamcinolone acetonide 1 mg/ml topical [...] 2017 11:40pm MV-Min-Fe Fum-FA-DHA ( 1 PO) (20 sources) MV-Min- Fe Fum-FA-DHA ( 1 PO) [...] 23January 11, 2023 July 27, 2023 3:06pm [id number] 200 actuat albuterol 0.09 mg/actuat metered dose [...] mg/ml extended release suspension (11 sources) Uncompetitive I-cksyvb-P-aspartat e Receptor Antagonist, Sigma-1 Agonist Start: 03-03-2019 [...] [Nausea with vomiting, unspecified] 04-02-2019 Episodic Other complications of (2 sources) size does not accord with dates; Translations: [Uterine size-date discrepancy, unspecified trimester] 07-27-2024 Episodic Other connective tissue disease (2 sources) [...] 3 Chronic Other and delivery including normal (13 sources) ; Translations: [Encounter for supervision of [...] [26 weeks gestation of ] 07-12-2024 Episodic Residual codes; unclassified (2 sources) Gestation period, 28 weeks; Translations: [28 weeks gestation of ] 07-27-2024 Episodic Skin and subcutaneous tissue infections (1 [...] Translations: [Otalgia, right ear] Onset: 3 Unclassified (8 sources) OB Reminders Onset: 5 06-16-2024 Urinary [...] Range Facility Urinalysis macro (dipstick) panel (U)on 07-27-2024 Bilirubin, UA Negative Negative - 4(70) +++ mg/dL [facility] Blood, UA Negative Negative - 50 Raúl/mcL [facility] Clarity, UA Clear [facility] Color, UA Yellow [facility] Glucose, UA Negative Negative - 1999(110) ++++ mg/dL [facility] Interpretation and review of laboratory results Abnormal [facility] Ketones, UA Negative Negative - 160(16) ++++ mg/dL [facility] Leukocytes, UA Trace Negative - 500+++ Zainab/mcL [facility] Nitrite, UA Negative Negative - Positive [facility] pH, UA 6 5 - [address] [facility] Protein, UA Trace Negative - 1999(20) ++++ mg/dL [facility] Spec Grav, UA 1.025 1 - 1.03 [facility] Urobilinogen, UA 0.2 0.2 - 12 mg/dL [facility] US OB INCOMPLETE ANATOMYon 0 07-23-2024 [place] [address] Ultrasound Report Signed Patient: DEVORAH SHELTON MR#: [id number] : 1995 Acct:[id number] Age/Sex: 29 / F ADM Date: 07/22/24 Loc: US Attending Dr: Donovan Vora D.O. Ordering Physician: Donovan Vora D.O. Date of Service: 07/22/24 Procedure(s): US OB incomplete anatomy Accession Number(s): [id number] cc: Donovan Vora D.O.; JELLY CHERY [place] [address] Patient Name: DEVORAH SHELTON MRN: [id number] date: 1995 Sex: F Assigned Patient Location: US Current Patient Location: Accession/Order Number: [id number] Exam Date: 07/23/2024 09:13 Report Date: 07/23/2024 09:15 At the request of: DONOVAN VORA DO Procedure: US OB incomplete anatomy US OB incomplete anatomy 07/22/2024 8:35 PM SIGNS AND SYMPTOMS: 10/15/2024 ENCOUNTER FOR FOLLOW UP OF ANATOMY Z36.2 PROTOCOL: Transabdominal imaging COMPARISON: 03/10/2024 FINDINGS: A normal four-chamber heart is visualized. There is an estimated heart rate of 134 bpm. Estimated gestational age is 27 weeks and 6 days. US/US OB incomplete anatomy IMPRESSION: A normal four-chamber heart is visualized. There is an estimated heart rate of 134 bpm. Impression dictated by: Hawa Barfield M.D.07/23/2024 9:15 AM Dictation Location: [place] [address] Electronically authenticated by: [id number] Y Date: 07/23/2024 09:15 Dictated By: Hawa Barfield M.D. Signed By: 07/23/24 0918 DD/ 4 TD/TT: 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: [facility] Radiology, Kemalogsarah velasco MD - 07/23/2024 [place] [address] Ultrasound Report Signed Patient: DEVORAH SHELTON MR#: [id number] : 1995 Acct:[id number] Age/Sex: 29 / F ADM Date: 07/22/24 Loc: US Attending Dr: Donovan Vora D.O. Ordering Physician: Donovan Vora D.O. Date of Service: 07/22/24 Procedure(s): US OB incomplete anatomy Accession Number(s): [id number] cc: Donovan Vora D.O.; JELLY CHERY [place] [address] Patient Name: DEVORAH SHELTON MRN: [facility]:[id number] date: 1995 Sex: F Assigned Patient Location: US Current Patient Location: Accession/Order Number: [id number] Exam Date: 07/23/2024 09:13 Report Date: 07/23/2024 09:15 At the request of: DONOVAN VORA DO Procedure: US OB incomplete anatomy US OB incomplete anatomy 07/22/2024 8:35 PM SIGNS AND SYMPTOMS: 10/15/2024 ENCOUNTER FOR FOLLOW UP OF ANATOMY Z36.2 PROTOCOL: Transabdominal imaging COMPARISON: 03/10/2024 FINDINGS: A normal four-chamber heart is visualized. There is an estimated heart rate of 134 bpm. Estimated gestational age is 27 weeks and 6 days. US/US OB incomplete anatomy IMPRESSION: A normal four-chamber heart is visualized. There is an estimated heart rate of 134 bpm. Impression dictated by: Hawa Barfield M.D.07/23/2024 9:15 AM Dictation Location: [place] [address] Electronically authenticated by: [id number] Y Date: 07/23/2024 09:15 Dictated By: Hawa Barfield M.D. Signed By: 07/23/24917 DD/ 4 TD/TT: 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: [facility] Radiology Study observation (narrative) [facility] US OB INCOMPLETE ANATOMYOrde red By: Radiologist Radiology on 07-23-2024 [facility] Work Phone: Urinalysis macro (dipstick) panel (U)on 07-12-2024 Bilirubin, UA Negative Negative - 4(70) +++ mg/dL [facility] Blood, UA Negative Negative - 50 Raúl/mcL [facility] Clarity, UA Clear [facility] Color, UA Yellow [facility] Glucose, UA Negative Negative - 2000(110) ++++ mg/dL [facility] Interpretation and review of laboratory results Abnormal [facility] Ketones, UA Positive Negative - 160(16) ++++ mg/dL [facility] Comment on above: trace Leukocytes, UA Positive Negative - 500+++ Zainba/mcL [facility] Comment on above: trace Nitrite, UA Negative Negative - Positive [facility] pH, UA 6 5 - 9 [facility] Protein, UA Positive Negative - 2000(20) ++++ mg/dL [facility] Comment on above: trace Spec Grav, UA 1.03 1 - 1.03 [facility] Urobilinogen, UA 0.2 0.2 - 12 mg/dL [facility] GLUCOSE TOLERANCE 3 HOURon 0 07-04-2024 GLUCOSE TOLERANCE 3 HOUR mg/dL [facility] Comment on above: GLU FAST 92 (<95) Co l: 07/04/24 0848 GLU 1HR 173 (<180) Col: 07/04/24 0954 GLU 2HR 130 (<155) Col: 07/04/24 1053 GLU 3HR 115 (<140) Col: 07/04/24 1154 [facility] ALL CBC WITH AUTO DIFFon BASOPHILS ABSOLUTE AUTO 0 [facility] Basophils/100 WBC (Bld) 0.2 % 0.2 - 2.0 % [facility] Eosinophils/100 WBC (Bld) 0.4 % Low 0.9 - 7.0 % [facility] Erythrocyte distribution width (RBC) [Ratio] 13.2 % 11.0 - 15.0 % [facility] Hematocrit (Bld) [Volume fraction] 36.1 % 36.0 - 48.0 % [facility] Hemoglobin (Bld) [Mass/Vol] 12.1 g/dL 12.0 - 16.0 g/dL [facility] IMMATURE GRANULOCYTES ABS AUTO 0.04 High [facility] Immature granulocytes/100 WBC (Bld) 0.4 % 0.0 - 0.5 % [facility] Interpretation and review of laboratory results Abnormal [facility] LYMPHOCYTES ABSOLUTE AUTO 1.7 [facility] Lymphocytes/100 WBC (Bld) 15.1 % Low 20.5 - 60.0 % [facility] MCH (RBC) [Entitic mass] 32.4 pg 26.7 - 34.0 pg [facility] MCHC (RBC) [Mass/Vol] 33.5 g/dL 29.9 - 35.2 g/dL [facility] MCV (RBC) [Entitic vol] 96.5 fL 81.0 - 99.0 fL [facility] MONOCYTES ABSOLUTE AUTO 0.6 [facility] Monocytes/100 WBC (Bld) 5.4 % 1.7 - 12.0 % [facility] NEUTROPHILS ABSOLUTE AUTO 8.8 High [facility] Neutrophils/100 WBC (Bld) 78.5 % High 43.0 - 75.0 % [facility] Platelet mean volume (Bld) [Entitic vol] 9.5 fL 9.5 - 13.5 fL [facility] TBH EO # 0.1 [facility] TBH PLT 227 [facility] TB RBC 3.74 Low [facility] WBC 11.2 High [facility] BMPon 06-17-2024 Anion gap [Moles/Vol] 14 mmol/L Normal 6-16 [facility] Comment on above: Performed By: #### 2 [id number] #### [facility] [address] [place] [address] Calcium [Mass/Vol] 8.4 mg/dL Low 8.9-11.1 [facility] Comment on above: Performed By: #### 2 [id number] #### [facility] [address] [place] [address] Chloride [Moles/Vol] 104 mmol/L Normal 101-111 [facility] Comment on above: Performed By: #### 2 [id number] #### [facility] [address] [place] [address] CO2 [Moles/Vol] 20 mmol/L Low 21-31 [facility] Comment on above: Performed By: #### 2 [id number] #### [facility] [address] [place] [address] Creatinine [Mass/Vol] 0.6 mg/dL Normal 0.5-1.3 [facility] Comment on above: Performed By: #### 2 [id number] #### [facility] [address] [place] [address] Glucose [Mass/Vol] 96 mg/dL Normal 55-199 [facility] Comment on above: Performed By: #### 2 [id number] #### [facility] [address] [place] [address] Potassium [Moles/Vol] 3.5 mmol/L Normal 3.5-5.3 [facility] Comment on above: Performed By: #### 2 [id number] #### [facility] [address] [place] [address] Sodium [Moles/Vol] 134 mmol/L Low 135-145 [facility] Comment on above: Performed By: #### 2 [id number] #### [facility] [address] [place] [address] Urea nitrogen [Mass/Vol] 8 mg/dL Normal 5-21 [facility] Comment on above: Performed By: #### 2 [id number] #### [facility] [address] [place] [address] Urea nitrogen/Creatinine [Mass ratio] 13 No Units Normal 10-20 [facility] Comment on above: Performed By: #### 2 [id number] #### [facility] [address] [place] [address] ED Clinical Summaryon 2024 ED Clinical Summary ED Clinical Summary [address] [id number] ED Clinical Summary Person Information Name: [facility]AL[facility] Age[facility] 29 Years : 1995 Sex: Female Language: Citizen Of [place] PCP: JELLY CHERY MD Marital Status: Single Phone: [phone] MRN: Visit Id: Visit Reason: Nausea; Body [...] 06/17/2024 01:25:53 06/17/2024 01:25:53 06/17/2024 01:25:53 ADDRESS: [address] [place] [id number] PHYS DOC NOTES: MEDICAL INFORMATION: Prescriptions Given: New Medications [id number], [address], [place] [id number], [phone] ondansetron (Zofran ODT 4 mg Tab-Dis) 1 [...] Adult Follow up: With: Address: When: [facility] [address] [place] [address] [place] [address] Business (1) In 3 days 06/20/2024 Comments: Return to the emergency room if your vomiting recurs or any new symptoms. With: Address: When: [address] [place] [address] Business (1) In 3 days DIAGNOSIS: 1:Nausea and vomiting Normal [facility] ED Note-Physicianon 06-17-19 ED Note-Physician ED Note-Physician Basic Information Time Seen: Kirill Long Chichi Khoury 06/16/2024 23:13 Chief Complaint states is 22wks [...] and Complexity of Problems Differential Diagnosis: [] [facility] Data External documents reviewed: [] My EKG [...] Nausea/Vomiting, # 12 tab(s), Refills(s) 0, Pharmacy: [id number], 157, cm, 06/16/24 22:56:00 EST, Height/Length Dosing, 97.3, kg, 06/16/24 22:56:00 EST, Weight Dosing Sodium Chloride 0.9% intravenous solution, 1,000 mL, Soln-IV, IV, Once, Stop date 06/16/24 23:27:00 EST, STAT, Start date 06/16/24 23:27:00 EST, Infuse over 61, minute(s) Basic Metabolic Panel CBC w/ Auto Diff eGFR Influenza A&B Ag Rapid COVID Antigen ([facility]) UA with Cult Rflx Medications Administered Given NS 1000 ml Bolus, 1000 mL, IV Zofran 4 mg/2 mL Injection, 4 mg, IV Push Disposition Plan Patient Discharge Condition Stable, improved Discharge Disposition Discharge home Discharge Prescription List Prescriptions Zofran ODT 4 mg Tab-Dis, 4 mg= 1 tab(s), Oral, q6hr, PRN Follow-up With When Contact Information Donovan VORA In 3 days 06/20/[address] [place] [address]- Business (1) Additional Instructions: Return to the emergency room if your vomiting recurs or any new symptoms. JELLY CHERY In 3 days [address] [facility] [address] [place] [address]- Business (1) Additional Instructions: Patient Education Nausea [...] Current, 11/13/2018 (more content not included)... Normal [facility] Comment on above: Result Comment: Elec tronically Signed By: Chichi Roy M.D.\.br\Date and Time Signed: 06/17/24 02:11 EST ED Patient Summaryon 025 ED Patient Summary ED Patient Summary [address] [address] Patient Discharge Instructions Person Information Name: DEVORAH SHELTON Age: 29 Years Arrival Date: 06/16/2024 22:42:49 Discharge Diagnosis: 1:Nausea and vomiting Primary Care Physician: JELLY CHERY MD Provider Information Primary Provider: Chichi Roy M.D. [employer] Supervisor:None The exam and treatment you received in the Emergency Department were for an urgent problem and are not intended as complete care. It is important that you follow up with a doctor, nurse practitioner, or physician???s metal moulder's assistant for ongoing care. If your symptoms become worse or you do not improve as expected and you are unable to reach your usual health care provider, you should return to the Emergency Department. We are available 24 hours a day. DEVORAH SHELTON has been given the following list of patient education materials, prescriptions and follow-up instructions: Follow-up Instructions: With: Address: When: Donovan VORA [facility], [address] [facility] [place] [address] Business (1) In 3 days 06/20/2024 Comments: Return to the emergency room if your vomiting recurs or any new symptoms. With: Address: When: [address] [place] [address] [facility] (1) In 3 days In the event that this physician does not participate in your insurance network, please consult with your insurance company to find a nearby participating provider. Patient Education Materials: Nausea and Vomiting, Adult A MESSAGE TO ALL PATIENTS REGARDING OPIOIDS PRESCRIPTION OPIOIDS: WHAT YOU NEED TO KNOW Prescription opioids can be used to help relieve atlavudn-hl-atxdei pain and are often prescribed following a [...] and Drug (more content not included)... Normal [facility] Influenza A&B Agon 5 Influenzae A Ag Negative Normal Negative [facility] Comment on above: Performed By: #### 1 [id number] #### [facility] [address] [place] [address] Influenzae B Ag Negative Normal Negative [facility] Comment on above: Result Comment: Test sensitivity and specificity vary for age group, specimen type, antigen types, and prevalence of disease. Test results must be evaluated in conjunction with other clinical data available to the physician. Individuals who received nasally administered Influenza A vaccine may have positive test results up to 3 days after vaccination. Performed By: #### 1 [id number] #### [facility] [address] [place] [address] Rapid COVID Antigen (MC)on 06-17-2024 Rapid COV Int NEG Ctl Pass Normal [facility] Comment on above: Performed By: #### 2 [id number] #### [facility] [address] [place] [address] Rapid COV Int POS Ctl Pass Normal [facility] Comment on above: Performed By: #### 2 [id number] #### [facility] [address] [place] [address] SARS-CoV+SARS-CoV-2 (COVID-19) Ag IA.rapid Ql (Resp) Not detected Normal Not Detected [facility] Comment on above: Result Comment: The Mapflow??? System for Rapid Detection of SARS-CoV-2 is [...] other viruses or pathogens; and, in the [facility], this test is only authorized for the duration of the declaration that circumstances exist justifying the authorization of emergency use of in vitro diagnostics for detection and/or diagnosis of the virus that causes COVID-19 under Section 564(b)(1) of the Act, 21 U.S.C. ??? 360bbb-3(b)(1), unless the authorization is terminated or revoked sooner. Performed By: #### 2 [id number] #### [facility] [address] [place] [address] UA with Cult Rflxon 06-17-19 25 Bilirubin Ql (U) Negative Normal Negative [facility] Comment on above: Performed By: #### 4 [id number] #### [facility] [address] [place] [address] Clarity (U) Clear Normal Clear [facility] Comment on above: Performed By: #### 4 [id number] #### [facility] [address] [place] [address] Color (U) Yellow Normal Yellow [facility] Comment on above: Result Comment: Micr oscopic readings are only performed on those samples that meet specific criteria set forth by [facility]. Performed By: #### 4 [id number] #### [facility] [address] [place] [address] Glucose Ql (U) Negative Normal Negative [facility] Comment on above: Performed By: #### 4 [id number] #### [facility] [address] [place] [address] Hemoglobin Auto test strip (U) [Mass/Vol] Negative Normal Negative [facility] Comment on above: Performed By: #### 4 [id number] #### [facility] [address] [place] [address] Ketones Auto test strip Ql (U) 2+ mg/dL Abnormal Negative [facility] Comment on above: Performed By: #### 4 [id number] #### [facility] [address] [place] [address] Leukocyte esterase Auto test strip Ql (U) Negative Normal Negative [facility] Comment on above: Performed By: #### 4 [id number] #### [facility] [address] [place] [address] Nitrite Auto test strip Ql (U) Negative Normal Negative [facility] Comment on above: Performed By: #### 4 [id number] #### [facility] [address] [place] [address] pH (U) 6.0 [pH] Invalid Interpretation Code 5.0-9.0 [facility] Comment on above: Performed By: #### 4 [id number] #### [facility] [address] [place] [address] Protein Ql (U) Trace Abnormal Negative [facility] Comment on above: Performed By: #### 4 [id number] #### [facility] [address] [place] [address] Specific gravity (U) [Rel density] 1.034 Invalid Interpretation Code 1.005-1.03 0 [facility] Comment on above: Performed By: #### 4 [id number] #### [facility] [address] [place] [address] Urobilinogen (U) [Mass/Vol] 2 mg/dL Abnormal Negative [facility] Comment on above: Performed By: #### 4 [id number] #### [facility] [address] [place] [address] eGFRon 06-17-2024 eGFR 126 mL/min/1.73 m2 Normal >=59 [facility] Comment on above: Performed By: #### 1 [id number] #### [facility] [address] [place] [address] CBC w/ Auto Diffon 5 Basophils/100 WBC (Bld) 0.4 % Normal 0.0-2.0 [facility] Comment on above: Performed By: #### 2 [id number] #### [facility] [address] [place] [address] Basophils/Leukocytes Auto (Bld) [Pure # fraction] 0.0 E9/L Normal 0.0-0.2 [facility] Comment on above: Performed By: #### 2 [id number] #### [facility] [address] [place] [address] Eosinophils (Bld) [#/Vol] 0.0 E9/L Normal 0.0-0.5 [facility] Comment on above: Performed By: #### 2 [id number] #### [facility] [address] [place] [address] Eosinophils/100 WBC (Bld) 0.2 % Normal 0.0-8.0 [facility] Comment on above: Performed By: #### 2 [id number] #### [facility] [address] [place] [address] Erythrocyte distribution width (RBC) [Ratio] 13.4 % Normal 10.9-14.2 [facility] Comment on above: Performed By: #### 2 [id number] #### [facility] [address] [place] [address] Hematocrit (Bld) [Volume fraction] 35.5 % Normal 34.0-46.0 [facility] Comment on above: Performed By: #### 2 [id number] #### [facility] [address] [place] [address] Hemoglobin (Bld) [Mass/Vol] 12.3 g/dL Normal 12.0-16.0 [facility] Comment on above: Performed By: #### 2 [id number] #### [facility] [address] [place] [address] Lymphocytes (Bld) [#/Vol] 0.9 E9/L Low 1.0-4.0 [facility] Comment on above: Performed By: #### 2 [id number] #### [facility] [address] [place] [address] Lymphocytes/100 WBC (Bld) 7.3 % Low 14.0-50.0 [facility] Comment on above: Performed By: #### 2 [id number] #### [facility] [address] [place] [address] MCH (RBC) [Entitic mass] 32.6 pg Normal 27.0-34.0 [facility] Comment on above: Performed By: #### 2 [id number] #### [facility] [address] [place] [address] MCHC (RBC) [Mass/Vol] 34.7 g/dL Normal 31.4-36.0 [facility] Comment on above: Performed By: #### 2 [id number] #### [facility] [address] [place] [address] MCV (RBC) [Entitic vol] 93.9 fL Normal 80.0-100.0 [facility] Comment on above: Performed By: #### 2 [id number] #### [facility] [address] [place] [address] Monocytes (Bld) [#/Vol] 0.7 E9/L Normal 0.2-1.0 [facility] Comment on above: Performed By: #### 2 [id number] #### [facility] [address] [place] [address] Neutrophils (Bld) [#/Vol] 11.4 E9/L High 2.0-7.5 [facility] Comment on above: Performed By: #### 2 [id number] #### [facility] [address] [place] [address] Neutrophils/100 WBC (Bld) 87.0 % High 36.0-75.0 [facility] Comment on above: Performed By: #### 2 198838 #### [facility] [address] [place] [address] Platelet mean volume (Bld) [Entitic vol] 7.6 fL Normal 6.4-10.8 [facility] Comment on above: Performed By: #### 2 120101 #### [facility] [address] [place] [address] Platelets (Bld) [#/Vol] 223.0 E9/L Normal 150.0-500. 0 [facility] Comment on above: Performed By: #### 2 [id number] #### [facility] [address] [place] [address] RBC (Bld) [#/Vol] 3.8 E12/L Low 4.3-5.9 [facility] Comment on above: Performed By: #### 2 [id number] #### [facility] [address] [place] [address] WBC corrected for nucl RBC Auto (Bld) [#/Vol] 13.0 E9/L High 4.0-11.0 [facility] Comment on above: Performed By: #### 2 [id number] #### [facility] [address] [place] [address] UA with Cult Rflxon 06-16-19 25 Type of Urine collection method Clean Catch Normal [facility] Comment on above: Performed By: #### 4 [id number] #### [facility] [address] [place] [address] US for pregnancyon TITLE OF EXAM: OB [...] and approved by the interpreting radiologist. IMAGING Possehn, Miguel, MD - 06/15/2024 TITLE OF EXAM: OB [...] signed and approved by the interpreting radiologist. [facility] US for pregnancyOrdered By: Miguel Gonzalez on 06-15-2024 [facility] Work Phone: US OB LIMITED 1+ FETUSESon [...] US for pregnancyon Radiology Study observation (narrative) [facility] Urinalysis macro (dipstick) panel (U)on 06-09-2024 Bilirubin, UA Negative Negative - 4(70) +++ mg/dL [facility] Blood, UA Negative Negative - 50 Raúl/mcL [facility] Clarity, UA Clear [facility] Color, UA Yellow [facility] Glucose, UA Negative Negative - 2000(110) ++++ mg/dL [facility] Interpretation and review of laboratory results Abnormal [facility] Ketones, UA Negative Negative - 160(16) ++++ mg/dL [facility] Leukocytes, UA Trace Negative - 500+++ Zainab/mcL [facility] Nitrite, UA Negative Negative - Positive [facility] pH, UA 7 5 - 9 [facility] Protein, UA Trace Negative - 2000(20) ++++ mg/dL [facility] Spec Grav, UA 1.025 1 - 1.03 [facility] Urobilinogen, UA 0.2 0.2 - 12 mg/dL [facility] US OB 14+ WEEKS ANATOMY SCAN on [...] RECURRENT VAGINITIS (HTRX)on 05-11-[address] [facility] ATOPOBIUM VAGINAE Not detected [facility] BVAB 2,3 (BACTERIAL VAGINOSIS ASSOCIATED BACTERIA 2, 3); MOBILUNCUS SPP 0 [facility] BVAB 2,3 (BACTERIAL VAGINOSIS ASSOCIATED BACTERIA 2, 3); MOBILUNCUS SPP Not detected [facility] ZABRINA ALBICANS, PARAPSILOSIS, TROPICALIS 0 [facility] ZABRINA ALBICANS, PARAPSILOSIS, TROPICALIS Not detected [facility] ZABRINA GLABRATA 0 [facility] ZABRINA GLABRATA Not detected [facility] ZABRINA KRUSEI [address] [facility] ZABRINA KRUSEI Not detected [facility] CHLAMYDIA TRACHOMATIS 0 [facility] CHLAMYDIA TRACHOMATIS Not detected [facility] GARDNERELLA VAGINALIS 0 [facility] GARDNERELLA VAGINALIS Not detected [facility] Interpretation and review of laboratory results Abnormal [facility] MEGASPHAERA (TYPES 1, 2) 29.[address] [facility] MEGASPHAERA (TYPES 1, 2) Detected Abnormal [facility] MYCOPLASMA GENITALIUM 0 [facility] MYCOPLASMA GENITALIUM Not detected [facility] NEISSERIA GONORRHOEAE 0 [facility] NEISSERIA GONORRHOEAE Not detected [facility] TET B, TET M 25.[address] [facility] TET B, TET M Detected Abnormal [facility] TRICHOMONAS VAGINALIS 0 [facility] TRICHOMONAS VAGINALIS Not detected [facility] Urinalysis macro (dipstick) panel (U)on 05-10-2024 Bilirubin, UA Negative Negative - 4(70) +++ mg/dL [facility] Blood, UA Negative Negative - 50 Raúl/mcL [facility] Clarity, UA Clear [facility] Color, UA Yellow [facility] Glucose, UA Negative Negative - 1999(110) ++++ mg/dL [facility] Interpretation and review of laboratory results Abnormal [facility] Ketones, UA Positive Negative - 160(16) ++++ mg/dL [facility] Comment on above: 15 Leukocytes, UA Trace Negative - 500+++ Zainab/mcL [facility] Nitrite, UA Negative Negative - Positive [facility] pH, UA 6 5 - 9 [facility] Protein, UA Trace Negative - 1999(20) ++++ mg/dL [facility] Spec Grav, UA 1.03 1 - 1.03 [facility] Urobilinogen, UA 0.2 0.2 - 12 mg/dL [facility] S. pyogenes DNA CRYSTAL+probe No m (Unsp spec)on 04-25-2024 Interpretation and review of laboratory results Abnormal [facility] RESULT Positive Negative [facility] Urinalysis macro (dipstick) panel (U)on 04-11-2024 Bilirubin, UA Negative Negative - 4(70) +++ mg/dL [facility] Blood, UA Negative Negative - 50 Raúl/mcL [facility] Clarity, UA Clear [facility] Color, UA Yellow [facility] Glucose, UA Negative Negative - 1999(110) ++++ mg/dL [facility] Interpretation and review of laboratory results Normal [facility] Ketones, UA Negative Negative - 160(16) ++++ mg/dL [facility] Leukocytes, UA Negative Negative - 500+++ Zainab/mcL [facility] Nitrite, UA Negative Negative - Positive [facility] pH, UA 6 5 - 9 [facility] Protein, UA Negative Negative - 1999(20) ++++ mg/dL [facility] Spec Grav, UA 1.025 1 - 1.03 [facility] Urobilinogen, UA 0.2 0.2 - 12 mg/dL [facility] ALL RUBELLA IGG ABon 04-05-2 024 RUBELLA ANTIBODIES, IGG 6.50 Immune >0.99 index [facility] Comment on above: Non-immune <0.90 Equivocal 0.90 - 0.99 Immune >0.99 Performed at: [address] [id number] Log Sorting Supervisor: Myron Milton PhD, Phone: [phone] HBSAG SCREENon 04-05-2024 HBSAG SCREEN Negative Negative [facility] Comment on above: Performed at: [address] [id number] Log Sorting Supervisor: yMron Milton PhD, Phone: [phone] HCV ANTIBODY RFX TO QUANT PC Tyson 04-05-2024 HCV AB Non-Reactive Non Reactive [facility] INTERPRETATION: Comment . [facility] Comment on above: Not infected with HC V unless early or acute infection is suspected (which may be delayed in an immunocompromised individual), or other evidence exists to indicate HCV infection. HIV AB/P24 AG WITH REFLEXon 04-05-2024 HIV AB/P24 AG SCREEN Non-Reactive Non Reactive [facility] Comment on above: HIV-1/HIV-2 antibodi es and HIV-1 p24 antigen were NOT detected. There is no laboratory evidence of HIV infection. HIV Negative Performed at: [address] [id number] Log Sorting Supervisor: Myron Milton PhD, Phone: [phone] No [facility]on 04-05 [facility] RAPID PLASMA REAGIN, QUANTon 04-05-2024 RAPID PLASMA REAGIN, QUANT Non-Reactive NonRea<1:1 titer [facility] Comment on above: Please Note: This te st does not meet current guidelines for screening and diagnosis of syphilis. This test is intended for following treatment response in patients being treated for syphilis infection. To screen for syphilis infection, a reflex cascade that includes both RPR and a treponema-specific assay should be utilized, such as Treponema pallidum (Syphilis) Screening Lares (776042) or Rapid Plasma Reagin (RPR) Test With Reflex to Quantitative RPR and Confirmatory Treponema pallidum Antibodies (596908). Performed at: [address] [id number] Log Sorting Supervisor: Myron Milton PhD, Phone: [phone] URINE CULTURE, ROUTINEon Bacteria identified Cx Nom (U) Urine Culture, Routine [facility] Bacteria identified Cx Nom (U) Mixed urogenital lenka [facility] Bacteria identified Cx Nom (U) 10,000-25,000 colony forming units per mL [facility] Bacteria identified Cx Nom (U) Performed at: [facility] Bacteria identified Cx Nom (U) [address] [place], [place] [id number] [facility] Bacteria identified Cx Nom (U) Log Sorting Supervisor: Myron Milton PhD, Phone: [phone] [facility] CLINISYNC [facility] ALL CBC WITH AUTO DIFFon BASOPHILS ABSOLUTE AUTO 0 [facility] Basophils/100 WBC (Bld) 0.2 % 0.2 - 2.0 % [facility] Eosinophils/100 WBC (Bld) 0.6 % Low 0.9 - 7.0 % [facility] Erythrocyte distribution width (RBC) [Ratio] 12.6 % 11.0 - 15.0 % [facility] Hematocrit (Bld) [Volume fraction] 38.4 % 36.0 - 48.0 % [facility] Hemoglobin (Bld) [Mass/Vol] 12.9 g/dL 12.0 - 16.0 g/dL [facility] IMMATURE GRANULOCYTES ABS AUTO 0.03 [facility] Immature granulocytes/100 WBC (Bld) 0.3 % 0.0 - 0.5 % [facility] Interpretation and review of laboratory results Abnormal [facility] LYMPHOCYTES ABSOLUTE AUTO 1.8 [facility] Lymphocytes/100 WBC (Bld) 19.8 % Low 20.5 - 60.0 % [facility] MCH (RBC) [Entitic mass] 31.9 pg 26.7 - 34.0 pg [facility] MCHC (RBC) [Mass/Vol] 33.6 g/dL 29.9 - 35.2 g/dL [facility] MCV (RBC) [Entitic vol] 94.8 fL 81.0 - 99.0 fL [facility] MONOCYTES ABSOLUTE AUTO 0.6 [facility] Monocytes/100 WBC (Bld) 6.9 % 1.7 - 12.0 % [facility] NEUTROPHILS ABSOLUTE AUTO 6.7 High [facility] Neutrophils/100 WBC (Bld) 72.2 % 43.0 - 75.0 % [facility] Platelet mean volume (Bld) [Entitic vol] 9.4 fL Low 9.5 - 13.5 fL [facility] EO # 0.1 [facility] PLT 252 [facility] RBC 4.05 Low [facility] WBC 9.3 [facility] ALL TYPE AND SCREENon 2023 ABO and Rh group Nom (Bld) Blood group O Rh(D) positive [facility] HEMO[facility]IN A1Con 024 Glucose [Mass/Vol] 91 mg/dL [facility] HbA1c (Bld) [Mass fraction] 4.8 % 4.5 - 6.2 % [facility] Comment on above: ADA RECOMMENDED LIMI T 4.0 - 6.0 ADA THERAPEUTIC TARGET < 7.0 ACTION SUGGESTED > 7.0 [facility] DRUG SCREEN RAPID (URINE )on 04-04-2024 AMPHETAMINE SCREEN URINE Negative NEGATIVE [facility] BARBITURATES SCREEN URINE Negative NEGATIVE [facility] BENZODIAZEPINES SCREEN URINE Negative NEGATIVE [facility] BUPRENORPHINE SCREEN URINE Negative NEGATIVE [facility] Comment on above: DRUG CLASS TEST [...] 300 ng/mL CANNABINOID SCREEN URINE Negative NEGATIVE [facility] COCAINE SCREEN URINE Negative NEGATIVE [facility] METHADONE SCREEN URINE Negative NEGATIVE NO [facility] METHAMPHETAMINES SCREEN URINE Negative NEGATIVE [facility] OPIATE SCREEN URINE Negative NEGATIVE [facility] OXYCODONE SCREEN URINE Negative NEGATIVE NO [facility] PHENCYCLIDINE SCREEN URINE Negative NEGATIVE [facility] TRICYCLIC ANTIDEPRESSANT URINE Negative NEGATIVE [facility] FOREARM 2 VIEWS RIGHTon 1 05-28-2023 [...] and symmetry. No ataxia with finger-nose or [id number]. Intact sensation of bilateral upper and lower [...] JELLY CHERY In 3 days 03/27/[address] [place] [address] [place], [place] [id number]- Business (1) Additional Instructions: Patient Education Wrist Sprain, Adult Attestation Patient seen and evaluated by the physician metal moulder's assistant. Attending physician was present in the emergency department and supervised care. This visit was performed by both the physician and an APC. I performed all aspects of the MDM as documented. This report was transcribed using voice recognition software. (more content not included)... Normal [facility] Comment on above: Result Comment: Elec [...] mGy = na DAP = na Normal [facility] ED Clinical Summaryon 2023 ED Clinical Summary ED Clinical Summary [address] [address] ED Clinical Summary Person Information Name: DEVORAH SHELTON [place] Age: 29 Years : 1995 Sex: Female Language: Citizen Of [place] PCP: JELLY CHERY MD Marital Status: Single Phone: [phone] Visit Id: Visit Reason: Facial abrasion, minor; [...] 03/24/2024 22:38:59 03/24/2024 22:38:59 03/24/2024 22:38:59 ADDRESS: [address] [place] [id number] PHYS DOC NOTES: MEDICAL INFORMATION: Prescriptions Given: Medications to Continue with No Changes Other Medications cyclobenzaprine By Mouth. ethinyl estradiol-norgestimate (Sprintec) 1 Tablets By Mouth every day. ibuprofen meloxicam (Mobic) By Mouth every day. omeprazole By Mouth every day. venlafaxine By Mouth. PATIENT EDUCATION INFORMATION: Instructions: Wrist Sprain, Adult Follow up: With: Address: When: JELLY [address], [address] [place] [phone] Business (1) In 3 days 03/27/2024 DIAGNOSIS: Accidental fall; Facial abrasion; Right wrist sprain Normal [facility] ED Patient Summaryon 024 ED Patient Summary ED Patient Summary [place] [id number] Patient Discharge Instructions Person Information Name: DEVORAH SHELTON Age: 29 Years Arrival Date: 03/24/2024 18:45:11 Discharge Diagnosis: Accidental fall; Facial abrasion; Right wrist sprain Primary Care Physician: JELLY CHERY MD Provider Information Primary Provider: Luther Ventura DO [employer] Supervisor:Anh MCWILLIAMS, Kp Weiss The exam and treatment you received in the Emergency Department were for an urgent problem and are not intended as complete care. It is important that you follow up with a doctor, nurse practitioner, or physician???s metal moulder's assistant for ongoing care. If your symptoms [...] Follow-up Instructions: With: Address: When: JELLY CHERY [address] [place] [address], [address] [place] [address] Business (1) In 3 days 03/27/2024 In the event that this physician does not participate in your insurance network, please consult with your insurance company to find a nearby participating provider. Patient Education Materials: Wrist Sprain, Adult A MESSAGE TO ALL PATIENTS REGARDING OPIOIDS PRESCRIPTION OPIOIDS: WHAT YOU NEED TO KNOW Prescription opioids can be used to help relieve jzgcpjnx-xq-lgmeho pain and are often prescribed following a [...] with calvin (more content not included)... Normal [facility] HCG ( test) Ql (U)o n 03-10-2024 Interpretation and review of laboratory results Abnormal [facility] Preg Test, Ur Positive [facility] Urinalysis macro (dipstick) panel (U)on 03-10-2024 Bilirubin, UA Positive Negative - 4(70) +++ mg/dL [facility] Comment on above: small Blood, UA Negative Negative - 50 Raúl/mcL [facility] Clarity, UA Clear [facility] Color, UA Yellow [facility] Glucose, UA Negative Negative - 2000(110) ++++ mg/dL [facility] Interpretation and review of laboratory results Abnormal [facility] Ketones, UA Positive Negative - 160(16) ++++ mg/dL [facility] Comment on above: 40 Leukocytes, UA Negative Negative - 500+++ Zainab/mcL [facility] Nitrite, UA Negative Negative - Positive [facility] pH, UA 6.5 5 - 9 [facility] Protein, UA Negative Negative - 2000(20) ++++ mg/dL [facility] Spec Grav, UA 1.025 1 - 1.03 [facility] Urobilinogen, UA 0.2 0.2 - 12 mg/dL [facility] hCG, quantitative, on 02-17-2024 HCG.intact+Beta subunit Qn 87 mIU/mL [facility] Comment on above: Female (Non- ) 0 - 5 (Postmenopausal) 0 - 8 Female () Weeks of Gestation 3 6 - 71 4 10 - 750 5 929 - 4076 6 629 - 80722 7 [phone] -[phone] 8 43732 -[phone] 9 85722 -383416 10 82965 -608524 12 39746 -929772 14 09771 - 24949 15 01460 - 26333 16 2286 - 21973 17 8058 - 89539 18 0699 - 95914 Juan Luis ECLIA methodology Performed at: [address] [place] [id number] Log S[employer] Supervisor: Myron Milton PhD, Phone: [phone] Specimen Comment: A courtesy copy of this report has been sent to [phone] [facility] XR Hand 3+ Views Lefton 12-24 [...] mGy = na DAP = na Normal [facility] ED Clinical Summaryon 2023 ED Clinical Summary ED Clinical Summary [address] [address] ED Clinical Summary Person Information Name: DEVORAH SHELTON [place] Age: 28 Years : 1995 Sex: Female Language: Citizen Of [place] PCP: JELLY CHERY MD Marital Status: Single Phone: [phone] MRN: Visit Id: Visit Reason: Finger injury [...] 01/15/2024 22:46:45 01/15/2024 22:46:45 01/15/2024 22:46:45 ADDRESS: [address] [place] [id number] PHYS DOC NOTES: MEDICAL INFORMATION: Prescriptions Given: Medications to Continue with No Changes Other Medications cyclobenzaprine By Mouth. ethinyl estradiol-norgestimate (Sprintec) 1 Tablets By Mouth every day. ibuprofen meloxicam (Mobic) By Mouth every day. omeprazole By Mouth every day. venlafaxine By Mouth. PATIENT EDUCATION INFORMATION: Instructions: Musculoskeletal Pain Follow up: With: Address: [facility]: [address], [address] [place] [phone] Business (1) In 3 days 01/18/2024 Comments: To schedule follow-up appointment with your family physician if symptoms not improve in the next 2 to 3 days. Alternate Tylenol, ibuprofen, and ice as needed for pain management. Return to the ED with any worsening symptoms DIAGNOSIS: Hand pain, left Normal [facility] ED Note-Physicianon 01-15-20 ED Note-Physician ED Note-Physician Basic Information Time Seen: Margot MCWILLIAMS, Whitney Luu 01/15/2024 21:45 Chief Complaint Pt to [...] CHERY In 3 days 01/18/2024 EDT [address] [facility] [address] [place] [id number] Business (1) Additional Instructions: To schedule follow-up appointment with your family physician if symptoms not improve in the next 2 to 3 days. Alternate Tylenol, ibuprofen, and ice as needed for pain management. Return to the ED with any worsening symptoms Patient Education Musculoskeletal Pain Attestation Patient seen and evaluated by the physician metal moulder's assistant. Attending physician was present in the emergency department and supervised care. This visit was performed by both the physician and an APC. I performed all aspects of the MDM as documented. This report was transcribed using voice recognition software. Every effort was made to ensure accuracy, however, inadvertently computerized call center professional mistakes may be present. Appropriate healthcare PPE [...] Former sm (more content not included)... Normal [facility] Comment on above: Result Comment: Elec tronically Signed By: Whitney Frost PA-C\.br\Date and Time Signed: 01/15/24 22:43 EDT\.br\Electronically Co-Signed By: Roman Syed DO\.br\Date and Time Co-Signed: 01/15/24 23:00 EDT ED Patient Summaryon 024 ED Patient Summary ED Patient Summary [address] [address] Patient Discharge Instructions Person Information Name: DEVORAH SHELTON Age: 28 Years Arrival Date: 01/15/2024 21:22:33 Discharge Diagnosis: Hand pain, left Primary Care Physician: JELLY CHERY MD Provider Information Primary Provider: Roman Syed DO [employer] Supervisor:Whitney Frost PA-C The exam and treatment you received in the Emergency Department were for an urgent problem and are not intended as complete care. It is important that you follow up with a doctor, nurse practitioner, or physician?s metal moulder's assistant for ongoing care. If your symptoms become worse or you do not improve as expected and you are unable to reach your usual health care provider, you should return to the Emergency Department. We are available 24 hours a day. DEVORAH SHELTON has been given the following list of patient education materials, prescriptions and follow-up instructions: Follow-up Instructions: With: Address: When: JELLY HCERY [address] [place] [address], [address] [place], [place] [phone] Business (1) In 3 days 01/18/2024 Comments: [...] opioids can be used to help relieve fgciuczk-an-dznjul pain and are often prescribed following a [...] Visit ww (more content not included)... Normal [facility] Image-guided pap and hpv mrn a e6/e7 reflex genotypes 16, 18/45on 01-14-2024 Blending Machine Operator Cyto stain Nom (Cvx/Vag) [ID] Comment [facility] Comment on above: Piotr Mckeon totechnologist (ASCP) Cytology report Cyto stain Doc (Cvx/Vag) Comment [facility] Comment on above: NEGATIVE FOR INTRAEP ITHELIAL LESION OR MALIGNANCY. Cytology report Cyto stain.thin prep Doc (Cvx/Vag) Comment [facility] Comment on above: This liquid based Th inPrep(R) pap test was screened with the use of an image guided system. Diagnosis ICD code [Identifier] Comment [facility] Comment on above: Z12.4 HPV 16+18+31+33+35+39+45+5 1+52+56+58+59+66+68 DNA Probe+sig amp Ql (Cvx) Negative [facility] Comment on above: This nucleic acid am plification test detects fourteen high- risk HPV types (16,18,31,33,35,39,45,51,52,56,58,59,66,68) without differentiation. HPV Genotype Reflex Comment [facility] Comment on above: Criteria not met, HP V Genotype not performed. Microscopic observation Other stain Nom (Unsp spec) . [facility] Note: Comment [facility] Comment on above: The Pap smear is a s creening test designed to aid in the detection of premalignant and malignant conditions of the uterine cervix. It is not a diagnostic procedure and should not be used as the sole means of detecting cervical cancer. Both false-positive and false-negative reports do occur. Statement of adequacy Cyto stain (Cvx/Vag) [Interp] Comment [facility] Comment on above: Satisfactory for saniya luation. Endocervical and/or squamous metaplastic cells (endocervical component) are present. Performed at: 01 - [facility], [place] [id number] Log Sorting Supervisor: Moon Tan MD, Phone: [phone] Performed at: 02 - [facility] StreetTheo dejesusBaltimore, [place] [id number] Log Sorting Supervisor: Moon Tan MD, Phone: [phone] Specimen Comment: Source.............Cervix Specimen Comment: LMP / Prev Treat...[id number] Specimen Comment: No. of containers..01 ThinPrep Vial [facility] Cytology Cervical or vaginal smear or scraping studyOrdered By: Teresa Weber on 01-11-2024 [facility] Healthcare GENITAL CULTUREon 01-03-2024 GENITAL CULTURE MICROBIOLOGY REPORT [facility], [address] [place] [address], [address] PATIENT: DEVORAH SHELTON LOCATION: : 1995 AGE: 28 SEX: F ADM: 01/03/24 Att. Physician: JELLY CHERY Order Id: [id number] Req. Physician: ALPA PORTER Source: vagina Site: [...] Smear consistent with Normal Vaginal Lenka. Normal [facility] UA W/O MICROSCOPICon 024 BILIRUBIN, URINE Negative Normal NEGATIVE [facility] Comment on above: Performed By: #### W UA #### [facility] [address] [place] [address] CHARACTER Clear Normal CLEAR-SL CLOUD [facility] Comment on above: Performed By: #### W UA #### [facility] [address] [place] [address] Color (U) Yellow Normal STRAW-YELL OW [facility] Comment on above: Performed By: #### W UA #### [address] [place] [address] Glucose Ql (U) Negative Normal NEGATIVE [facility] Comment on above: Performed By: #### W UA #### [facility] [address] [place] [address] Hemoglobin Ql (U) Negative Normal NEGATIVE [facility] Comment on above: Performed By: #### W UA #### [facility] [address] [place] [address] Ketones Ql (U) Negative Normal NEGATIVE [facility] Comment on above: Performed By: #### W UA #### [address] [place] [address] LEUKOCYTES Negative Normal NEGATIVE [facility] Comment on above: Performed By: #### W UA #### [facility] [address] [place] [address] Nitrite Ql (U) Negative Normal NEGATIVE [facility] Comment on above: Performed By: #### W UA #### [facility] [address] [place] [address] pH (U) 7.00 [pH] Normal 5.0-9.0 [facility] Comment on above: Performed By: #### W UA #### [facility] [address] [place] [address] Protein Ql (U) Negative Normal NEGATIVE [facility] Comment on above: Performed By: #### W UA #### [facility] [address] [facility] [address] Specific gravity (U) [Rel density] 1.015 Normal 1.002-1.03 0 [facility] Comment on above: Performed By: #### W UA #### [facility] [address] [facility] [address] Urobilinogen Qn (U) 0.20 {James'U}/dL Normal 0.2-1.0 [facility] Comment on above: Performed By: #### W UA #### [facility] [address] [facility] [address] Laboratory - Chemistry and C hemistry - challengeon 11-18-2023 Bilirubin Ql (U) Negative [facility] Glucose (U) [Mass/Vol] Negative [facility] Ketones Ql (U) Positive [facility] pH (U) 6.0 [pH] [facility] Specific gravity (U) [Rel density] 1.010 [facility] Urobilinogen (U) [Mass/Vol] 0.2 mg/dL [facility] Laboratory - Microbiology an d Antimicrobial susceptibilityOrdered By: Georgie Guerrier on 11-18-2023 N. gonorrhoeae DNA CRYSTAL+probe Ql (Unsp spec) Negative Negative [facility] Comment on above: Performed at: =[address] [id number] Director: Moon Tan MD, Phone: [phone] Laboratory - Specimen inform ationon 11-18-2023 Appearance (U) clear [facility] Color (U) paleyellow [facility] Laboratory - Urinalysison Leukocyte esterase Test strip Ql (U) Negative [facility] Nitrite Ql (U) Negative [facility] Protein Ql (U) Positive [facility] No Panel Informationon 11-17 Urine Occult Blood Negative [facility] No Panel InformationOrdered By: Georgie Guerrier on 11-18-2023 Zabrina albicans (CRYSTAL) Negative Negative [facility] Comment on above: This test was develo ped and its performance characteristicsdetermined by [facility]. It has not been cleared orapproved by the Food and Drug Administration. Zabrina glabrata (CRYSTAL) Negative Negative [facility] Comment on above: This test was develo ped and its performance characteristicsdetermined by [facility]. It has not been cleared orapproved by the Food and Drug Administration. Chlamydia trachomatis (CRYSTAL) (LAB) Negative Negative [facility] Trichomonas vaginalis (CRYSTAL) Negative Negative [facility] Urine Cultureon 11-18-2023 Bacteria identified Cx Nom (U) 75,000 colonies/ml mixed bacterial skin contaminants 2 Days PERFORMED BY: [place] [address] PATHOLOGIST NEONATAL ICU COORDINATOR NAINA NEWMAN M.D. Normal [facility] Comment on above: Performed By: #### V AGINITIS+ #### [facility] , #### CUU #### [address] Urine culture routineOrdered By: Georgie Guerrier on 11-18-2023 Bacteria identified Cx Nom (U) 2 Days [facility] Vaginal fluid Atopobium vagi holley DNA detection by probe and target amplification methoOrdered By: Georgie Guerrier on 11-18-2023 A. vaginae DNA CRYSTAL+probe Ql (Vag fld) Low - 0 Score . [facility] Comment on above: This test was develo ped and its performance characteristicsdetermined by [facility]. It has not been cleared orapproved by the Food and Drug Administration. Vaginal fluid Megasphaera sp ecies type 1 DNA detection by probe and target amplificatOrdered By: Georgie Guerrier on 11-18-2023 Megasphaera sp type 1 DNA CRYSTAL+probe Ql (Vag fld) Low - 0 Score . [facility] Comment on above: This test was [...] (Vag fld) Low - 0 Score . [facility] Comment on above: This test was develo ped and its performance characteristicsdetermined by [facility]. It has not been cleared orapproved by the Food and Drug Administration. Vaginitis Plus (VG+)on 11-17 Atopobium Vaginae Low - 0 Normal . [facility] Comment on above: Result Comment: This test was developed and its performance characteristics determined by [facility]. It has not been cleared or approved by the Food and Drug Administration. Performed By: #### V AGINITIS+ #### [facility] , #### CUU #### [address] BVAB2 Low - 0 Normal . [facility] Comment on above: Result Comment: This test was developed and its performance characteristics determined by [facility]. It has not been cleared or approved by the Food and Drug Administration. Performed By: #### V AGINITIS+ #### [facility] , #### CUU #### [place] [address] [place] Zabrina Albicans, CRYSTAL Negative Normal Negative [facility] Comment on above: Result Comment: This test was developed and its performance characteristics determined by [facility]. It has not been cleared or approved by the Food and Drug Administration. Performed By: #### V AGINITIS+ #### [facility] , #### CUU #### [place] [id number] [place] Zabrina Glabrata, CRYSTAL Negative Normal Negative [facility] Comment on above: Result Comment: This test was developed and its performance characteristics determined by [facility]. It has not been cleared or approved by the Food and Drug Administration. PERFORMED BY: [place] [address] PATHOLOGIST NEONATAL ICU COORDINATOR NAINA NEWMAN M.D. Performed By: #### V AGINITIS+ #### [facility] , #### CUU #### [address] Chlamydia Trachomotis, CRYSTAL Negative Normal Negative [facility] Comment on above: Performed By: #### V AGINITIS+ #### [facility] , #### CUU #### [address] Megasphaera Low - 0 Normal . [facility] Comment on above: Result Comment: [...] AGINITIS+ #### [facility] , #### CUU #### [address] Neisseria Gonorrhoeae, CRYSTAL Negative Normal Negative [facility] Comment on above: Result Comment: Perf ormed at: =G - [facility] [address] [id number] Log Sorting Supervisor: Moon Tan MD, Phone: [phone] Performed By: #### V AGINITIS+ #### [facility] , #### CUU #### [address] Tric Vag CRYSTAL Negative Normal Negative [facility] Comment on above: Performed By: #### V AGINITIS+ #### [facility] , #### CUU #### [facility] [address] XR FOOT 3+ VIEWS RIGHTon XR [...] 3V*on 024 XR hand RT min 3V* [facility] Main [place] [address] [place] [address] XRay Report Signed Patient: Devorah Shelton MR#: [id number] : 1995 Acct:[id number] Age/Sex: 28 / F ADM Date: 09/29/23 Loc: [id number] Room: Type: [facility] Attending Dr: Belia Aguero PA-C Copies [...] Liliana Goyal M.D.09/29/2023 11:30 AM Dictation Location: [place] [address] Transcribed By: [facility] 09/29/23 1130 Dictated By: Liliana Goyal MD 09/29/23 1128 Signed By: 09/29/23 1130 Normal [facility] Automated basophil %Ordered By: Simone Bahena on 07-27-2023 Basophils/100 WBC (Bld) 0.5 % Normal . [facility] Comment on above: Performed By: #### C BC, CRP, ESR #### [address] Automated basophil countOrde red By: Simone Bahena on 07-27-2023 Basophils (Bld) [#/Vol] 0.0 10*3/uL Normal 0.0-0.2 [facility] Comment on above: Performed By: #### C BC, CRP, ESR #### [address] Automated blood monocyte cou ntOrdered By: Simone Bahena on 07-27-2023 Monocytes (Bld) [#/Vol] 0.8 10*3/uL Normal 0.0-0.8 [facility] Comment on above: Performed By: #### C BC, CRP, ESR #### [address] Automated eosinophil %Ordere d By: Simone Bahena on 07-27-2023 Eosinophils/100 WBC (Bld) 1.0 % Normal . [facility] Comment on above: Performed By: #### C BC, CRP, ESR #### [address] Automated eosinophil countOr dered By: Simone Bahena on 07-27-2023 Eosinophils (Bld) [#/Vol] 0.1 10*3/uL Normal 0.0-0.45 [facility] Comment on above: Performed By: #### C BC, CRP, ESR #### [address] Automated monocyte %Ordered By: Simone Bahena on 07-27-2023 Monocytes/100 WBC (Bld) 8.2 % Normal . [facility] Comment on above: Performed By: #### C BC, CRP, ESR #### [address] Automated neutrophil %Ordere d By: Simone Bahena on 07-27-2023 Neutrophils/100 WBC (Bld) 62.4 % Normal . [facility] Comment on above: Performed By: #### C BC, CRP, ESR #### [address] C reactive protein [Mass/vol ume] in Serum or PlasmaOrdered By: Simone Bahena on 07-27-2023 CRP [Mass/Vol] 1.7 mg/dL 0.0-0.5 [facility] C-Reactive Proteinon 024 C-Reactive Protein 1.7 mg/dL High 0.0-0.5 [facility] Comment on above: Result Comment: PERF ORMED BY: [place] [address] PATHOLOGIST NEONATAL ICU COORDINATOR NAINA NEWMAN M.D. Performed By: #### C BC, CRP, ESR #### [address] Complete Blood Count Auto Di ffon 07-27-2023 Mean Corpuscular HGB Conc 34.0 g/dL Normal 32.0-35.0 [facility] Comment on above: Performed By: #### C BC, CRP, ESR #### [address] NRBC% 0.1 /100{WBC} Normal 0-0.5 [facility] Comment on above: Performed By: #### C BC, CRP, ESR #### [address] Erythrocyte Sedimentation Ra aishwarya 07-27-2023 ESR (Bld) [Velocity] 14 mm/h Normal 0-19 [facility] Comment on above: Result Comment: PERF ORMED BY: [place] [address] PATHOLOGIST NEONATAL ICU COORDINATOR NAINA NEWMAN M.D. Performed By: #### C BC, CRP, ESR #### [address] Erythrocyte distribution wid th [Ratio] by Automated countOrdered By: Simone Bahena on 07-27-2023 Erythrocyte distribution width (RBC) [Ratio] 12.8 % Normal 11.9-15.3 [facility] Comment on above: Performed By: #### C BC, CRP, ESR #### [facility] [address] [place] [address] Erythrocyte sedimentation ra te by Photometric methodOrdered By: Simone Bahena on 07-27-2023 ESR Photometric method (Bld) [Velocity] 14 mm/hr 0-19 [facility] Erythrocytes [#/volume] in B lood by Automated countOrdered By: Simone Bahena on 07-27-2023 RBC (Bld) [#/Vol] 4.14 10*6/uL Normal 3.60-5.00 [facility] Comment on above: Performed By: #### C BC, CRP, ESR #### [address] Hematocrit [Volume Fraction] of Blood by Automated countOrdered By: Simone Bahena on 07-27-2023 Hematocrit (Bld) [Volume fraction] 39.0 % Normal 34.0-46.4 [facility] Comment on above: Performed By: #### C BC, CRP, ESR #### [address] Hemoglobin [Mass/volume] in BloodOrdered By: Simone Bahena on 07-27-2023 Hemoglobin (Bld) [Mass/Vol] 13.3 g/dL Normal 11.8-15.4 [facility] Comment on above: Performed By: #### C BC, CRP, ESR #### [facility] [address] [place] [address] Leukocytes [#/volume] correc betty for nucleated erythrocytes in Blood by Automated counOrdered By: Simone Bahena on 07-27-2023 WBC corrected for nucl RBC Auto (Bld) [#/Vol] 9.4 10*3/uL 3.8-11.6 [facility] Leukocytes [#/volume] in Blo od by Automated countOrdered By: Simone Bahena on 07-27-2023 WBC (Bld) [#/Vol] 9.4 10*3/uL Normal 3.8-11.6 [facility] Comment on above: Performed By: #### C BC, CRP, ESR #### [address] Lymphocytes [#/volume] in Bl ood by Automated countOrdered By: Simone Bahena on 07-27-2023 Lymphocytes (Bld) [#/Vol] 2.6 10*3/uL Normal 1.00-4.8 [facility] Comment on above: Performed By: #### C BC, CRP, ESR #### [address] Lymphocytes/100 leukocytes i n Blood by Automated countOrdered By: Simone Bahena on 07-27-2023 Lymphocytes/100 WBC (Bld) 27.9 % Normal . [facility] Comment on above: Performed By: #### C BC, CRP, ESR #### [address] MCH [Entitic mass] by Automa betty countOrdered By: Simone Bahena on 07-27-2023 MCH (RBC) [Entitic mass] 32.0 pg Normal 24.7-34.3 [facility] Comment on above: Performed By: #### C BC, CRP, ESR #### [address] MCHC Auto (RBC) [Mass/Vol]Or dered By: Simone Bahena on 07-27-2023 MCHC (RBC) [Mass/Vol] 34.0 g/dL 32.0-35.0 [facility] MCV [Entitic volume] by Auto mated countOrdered By: Simone Bahena on 07-27-2023 MCV (RBC) [Entitic vol] 94.2 fL Normal 80-100 [facility] Comment on above: Performed By: #### C BC, CRP, ESR #### [address] Neutrophils [#/volume] in Bl ood by Automated countOrdered By: Simone Bahena on 07-27-2023 Neutrophils (Bld) [#/Vol] 5.8 10*3/uL Normal 1.8-7.7 [facility] Comment on above: Performed By: #### C BC, CRP, ESR #### [facility] [address] Nucleated erythrocytes [Pres ence] in Blood by Automated countOrdered By: Simone Bahena on 07-27-2023 Nucleated RBC Auto Ql (Bld) 0.1 /100{WBC} 0-0.5 [facility] Platelet mean volume [Entiti c volume] in Blood by Automated countOrdered By: Simone Bahena on 07-27-2023 Platelet mean volume (Bld) [Entitic vol] 7.7 fL Normal 6.3-10.7 [facility] Comment on above: Performed By: #### C BC, CRP, ESR #### [facility] [address] [place] [address] Platelets [#/volume] in Bloo d by Automated countOrdered By: Simone Bahena on 07-27-2023 Platelets (Bld) [#/Vol] 294 10*3/uL Normal 150-450 [facility] Comment on above: Performed By: #### C BC, CRP, ESR #### [facility] [address] [place] [address] No Panel Informationon 07-05 INFLUENZA A Negative [facility] INFLUENZA B Negative [facility] Interpretation and review of laboratory results Normal [facility] S. pyogenes DNA CRYSTAL+probe No m (Unsp spec)on 07-05-2023 Interpretation and review of laboratory results Normal [facility] RESULT Negative [facility] CNOVon 06-29-2023 CNOV Office Visit (PLASMN ) ----- DEVORAH SHELTON ([id number]) 1995 F Date Time Provider Department 06/29/23 3:40 PM MIGUEL ANG During your visit today, we recorded the following information about you: Temperature Pulse Blood pressure 97.3 degrees 68/minute 121/67 Miguel Ang PA-C 06/30/2023 8:33 AM Signed PLASTIC SURGERY DEPARTMENT [facility] Hand Surgery Note [] New referred by []self []physician.......... [] Follow-up CC: ..right hand pain............ ? HPI: Devorah is a 28 year old female who presnets after being bit by a dog in February 2023. Reports was bit at the [facility] and has never healed correctly. Patient also suffered infection of the right hand following a dog bite which she was treated with antibiotics. She reported that the infection started to move up the arm past the wrist. 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 Dominant Hand: [...] by m (more content not included)... Normal [facility] No Panel Informationon 06-29 [facility] XR HAND 3V PA/LAT/OBL RTon 0 06-29-2023 [...] DEFORMITY, AN EROSION, OR SEQUELA OF OSTEOMYELITIS. 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: [employer] Transcribe Date/Time: Jun 29 2023 4:42P Dictated by : MAXINE RUBI MD This examination was interpreted and the report reviewed and electronically signed by: MAXINE RUBI MD on Jun 29 2023 4:45PM EST [id number] Normal [facility] Alanine aminotransferase [En zymatic activity/volume] in Serum or PlasmaOrdered By: Susie Johnson on 04-03-2023 ALT [Catalytic activity/Vol] 15 U/L Normal 7-52 [facility] Comment on above: Performed By: #### H EPATIC #### [address] Albumin [Mass/volume] in Ser um or Plasma by Bromocresol green (BCG) dye binding methoOrdered By: Susie Johnson on 04-03-2023 Albumin BCG dye [Mass/Vol] 4.2 g/dL 3.5-5.7 [facility] Alkaline phosphatase [Enzyma tic activity/volume] in Serum or PlasmaOrdered By: Susie Johnson on 04-03-2023 ALP [Catalytic activity/Vol] 104 U/L Normal 34-104 [facility] Comment on above: Result Comment: PERF ORMED BY: [place] [address] PATHOLOGIST NEONATAL ICU COORDINATOR NAINA NEWMAN M.D. Performed By: #### H EPATIC #### [address] Aspartate aminotransferase [ Enzymatic activity/volume] in Serum or PlasmaOrdered By: Susie Johnson on 04-03-2023 AST [Catalytic activity/Vol] 15 U/L Normal 13-39 [facility] Comment on above: Performed By: #### H EPATIC #### [address] Bilirubin.direct [Mass/volum e] in Serum or PlasmaOrdered By: Susie Johnson on 04-03-2023 Bilirubin.direct [Mass/Vol] 0.10 mg/dL 0.03-0.18 [facility] Bilirubin.total [Mass/volume ] in Serum or PlasmaOrdered By: Susie Johnson on 04-03-2023 Bilirubin [Mass/Vol] 0.8 mg/dL Normal 0.3-1.0 [facility] Comment on above: Performed By: #### H EPATIC #### [address] Hepatic Panelon 04-03-2023 Albumin [Mass/Vol] 4.2 g/dL Normal 3.5-5.7 [facility] Comment on above: Performed By: #### H EPATIC #### [address] Bilirubin,Indirect 0.7 mg/dL Normal [facility] Comment on above: Performed By: #### H EPATIC #### [address] Bilirubin.indirect [Mass/Vol] 0.10 mg/dL Normal 0.03-0.18 [facility] Comment on above: Performed By: #### H EPATIC #### [place] [address] [address] Protein [Mass/volume] in Ser um or PlasmaOrdered By: Susie Johnson on 04-03-2023 Protein [Mass/Vol] 6.8 g/dL Normal 6.4-8.9 [facility] Comment on above: Performed By: #### H EPATIC #### [facility] [address] Serum globulin measurement b y calculation (mass/volume)Ordered By: Susie Johnson on 04-03-2023 Globulin (S) [Mass/Vol] 2.6 g/dL Normal [facility] Comment on above: Performed By: #### H EPATIC #### [facility] [address] [place] [address] Serum or plasma albumin/glob ulin mass ratioOrdered By: Susie Johnson on 04-03-2023 Albumin/Globulin [Mass ratio] 1.6 {ratio} [facility] Comment on above: Performed By: #### H EPATIC #### [facility] [address] [place] [address] Serum or plasma non-glucuron idated bilirubin measurement (mass/volume)Ordered By: Susie Johnson on 04-03-2023 Bilirubin.indirect [Mass/Vol] 0.7 mg/dL [facility] Follow-Upon 02-24-2023 Follow-Up [id number] Jimenez Shelton concepción 1995 F Date Provider Department Center 02/24/2023 MARISA GARCIA ORTHO MPORTHO Family History Family history unknown: Yes Level of Service:86920 MT OFFICE/OUTPATIENT ESTABLISHED SF MDM 10-19 MIN (GC) Reason for Visit and Comments: Follow-up [976230] [facility] Office Visiton 02-17-2023 Follow-up visit [id number] Jimenez Shelton tlyn 1995 F Date Provider Department Center 02/17/2023 JAISON ARAGON MP ORTHO MPORTHO Family History Family history unknown: Yes Level of Service:31830 MT OFFICE/OUTPATIENT NEW LOW MDM 30-44 MINUTES Reason for Visit and Comments: Numbness [75] Normal [facility] XR Hand Complete Left*on XR Hand Complete Left* Findings: No fracture, dislocation, bone lesion. Joint spaces are maintained. IMPRESSION: Negative left hand. Report reported and signed by Rylan Signer on 09/30/2022 0745 Normal [facility] Field Clinical Engineer XR Hand Complete Right*on XR Hand Complete Right* Findings: No fracture, dislocation, bone lesion. Joint spaces maintained. IMPRESSION: Negative right hand. Report reported and signed by Rylan Signer on 09/30/2022 0744 Normal [facility] Clinical [facility] MICRO OTHER TESTSOrdered By: Kashif Bolaños on 07-20-2022 S. pyogenes Ag IA.rapid Ql (Throat) Negative (07/20/22 1:06 AM) Normal Negative [facility] Man Sero CHEMISTRYOrdered By: SYSTEM SYSTEM on [...] 35.0 g/dL Normal 31.4 - 36.0 gm/dL FT HemeAutoSS MCV (RBC) [Entitic vol] 92.0 fL [...] (S) Negative (07/19/22 10:10 PM) Normal Negative [facility] Man Sero CHEMISTRYOrdered By: SYSTEM SYSTEM on [...] /1.73 m2 FT Chem S Glucose [Mass/Vol] 94 mg/dL Normal 55 - 199 mg/dL FT Remisol Potassium [Moles/Vol] 3.4 mmol/L Low 3.5 - 5.3 mmol/L FT Remisol Sodium [Moles/Vol] 139 mmol/L Normal 135 - 145 mmol/L FT Remisol Urea nitrogen [Mass/Vol] 14 mg/dL Normal 5 - 21 mg/dL [facility] Remisol Urea nitrogen/Creatinine [Mass ratio] 20 mg/mg Normal 10 - 20 FT Remisol Quick Strepon 06-23-2022 S. pyogenes Org specific cx Ql (Throat) Positive [email or web address] Other Quick Strep [email or web address] Other Quick Strepon 04-16-2022 S. pyogenes Org specific cx Ql (Throat) Positive [email or web address] Other [employer]stream Strep [email or web address] Other CBC AUTO DIFFon 03-22-2022 BASO # 0.1 103/ul Normal 0.0-0.1 [facility] Comment on above: Performed By: #### C BC #### [facility] [address] [place] [address] Dr. Adalberto Dimas Basophils/100 WBC (Bld) 0.2 % Normal 0.2-2.0 [facility] Comment on above: Performed By: #### C BC #### [facility] [address] [place] [address] Dr. Adalberto Dimas EO # 0.0 103/ul Normal 0.0-0.7 [facility] Comment on above: Performed By: #### C BC #### [facility] [address] [place] [address] Dr. Adalberto Dimas Eosinophils/100 WBC (Bld) 0.2 % Critically low 0.9-7.0 The [facility] Comment on above: Performed By: #### C BC #### [facility] [address] [place] [address] Dr. Adalberto Dimas Erythrocyte distribution width (RBC) [Ratio] 12.0 % Normal 11.0-15.0 [facility] Comment on above: Performed By: #### C BC #### [facility] [address] [place] [address] Dr. Adalberto Dimas Hematocrit (Bld) [Volume fraction] 39.5 % Normal 36.0-48.0 [facility] Comment on above: Performed By: #### C BC #### [facility] [address] [place] [address] Dr. Adalberto Dimas Hemoglobin (Bld) [Mass/Vol] 13.9 g/dL Normal 12.0-16.0 [facility] Comment on above: Performed By: #### C BC #### [facility] [address] [place] [address] Dr. Adalberto Dimas IG # 0.08 10e3/ul Critically high 0.00-0.03 [facility] Comment on above: Performed By: #### C BC #### [facility] [address] [place] [address] Dr. Adalberto Dimas IG % 0.4 % Normal 0.0-0.5 [facility] Comment on above: Performed By: #### C BC #### [facility] [address] [place] [address] Dr. Adalberto Dimas LYMPH # 1.7 103/ul Normal 1.2-3.8 [facility] Comment on above: Performed By: #### C BC #### [facility] [address] [place] [address] Dr. Adalberto Dimas Lymphocytes/100 WBC (Bld) 7.6 % Critically low 20.5-60.0 [facility] Comment on above: Performed By: #### C BC #### [facility] [address] [place] [address] Dr. Adalberto Dimas MANUAL DIFF REQ NO Normal [facility] Comment on above: Performed By: #### C BC #### [facility] [address] [place] [address] Dr. Adalberto Dimas MCH (RBC) [Entitic mass] 32.5 pg Normal 26.7-34.0 [facility] Comment on above: Performed By: #### C BC #### [facility] [address] [place] [address] Dr. Adalberto Dimas MCHC (RBC) [Mass/Vol] 35.2 g/dL Normal 29.9-35.2 The [facility] Comment on above: Performed By: #### C BC #### [facility] [address] [address] [address] Adalberto Dimas MCV (RBC) [Entitic vol] 92.3 fL Normal 81.0-99.0 The [facility] Comment on above: Performed By: #### C BC #### [facility] [address] [address] [address] Adalberto Dimas MONO # 1.4 103/ul Critically high 0.3-0.8 The [facility] Comment on above: Performed By: #### C BC #### [facility] [address] [place] [address] Dr. Adalberto Dimas Monocytes/100 WBC (Bld) 6.3 % Normal 1.7-12.0 The [facility] Comment on above: Performed By: #### C BC #### [facility] [address] [address] [address] Adalberto Dimas NEUT # 18.8 103/ul Critically high 1.4-6.5 The [facility] Comment on above: Performed By: #### C BC #### [facility] [address] [place] [address] Dr. Adalberto Dimas Neutrophils/100 WBC (Bld) 85.3 % Critically high 43.0-75.0 The [facility] Comment on above: Performed By: #### C BC #### [facility] [address] [address] [address] Adalberto Dimas Platelet mean volume (Bld) [Entitic vol] 9.1 fL Critically low 9.5-13.5 The [facility] Comment on above: Performed By: #### C BC #### [facility] [address] [place] [address] Dr. Adalberto Dimas PLT 267 103/ul Normal 150-450 The [facility] Comment on above: Performed By: #### C BC #### [facility] [address] [address] [address] Adalberto Dimas RBC 4.28 106/ul Normal 4.20-5.40 [facility] Comment on above: Performed By: #### C BC #### [facility] [address] [place] [address] Dr. Adalberto Dimas WBC 22.0 103/ul Critically high 4.0-11.0 [facility] Comment on above: Performed By: #### C BC #### [facility] [address] [place] [address] Dr. Adalberto Dimas PROF 14(COMP METB)on 022 Albumin [Mass/Vol] 3.8 g/dL Normal 3.4-5.0 [facility] Comment on above: Performed By: #### C MP #### [facility] [address] [place] [address] Dr. Adalberto Dimas Albumin/Globulin [Mass ratio] 1.0 {ratio} Normal [facility] Comment on above: Performed By: #### C MP #### [facility] [address] [place] [address] Dr. Adalberto Dimas ALP [Catalytic activity/Vol] 97 U/L Normal 46-116 [facility] Comment on above: Performed By: #### C MP #### [facility] [address] [place] [address] Dr. Adalberto Dimas ALT [Catalytic activity/Vol] 17 U/L Normal 14-59 [facility] Comment on above: Performed By: #### C MP #### [facility] [address] [place] [address] Dr. Adalberto Dimas Anion gap [Moles/Vol] 12.5 mmol/L Normal [facility] Comment on above: Performed By: #### C MP #### [facility] [address] [place] [address] Dr. Adalberto Dimsa AST [Catalytic activity/Vol] 12 U/L Critically low 15-37 [facility] Comment on above: Performed By: #### C MP #### [facility] [address] [place] [address] Dr. Adalberto Dimas Bilirubin [Mass/Vol] 2.9 mg/dL Critically high 0.2-1.0 [facility] Comment on above: Performed By: #### C MP #### [facility] [address] [place] [address] Dr. Adalberto Dimas Calcium [Mass/Vol] 8.7 mg/dL Normal 8.5-10.1 [facility] Comment on above: Performed By: #### C MP #### [facility] [address] [place] [address] Dr. Adalberto Dimas Chloride [Moles/Vol] 101 mmol/L Normal 98-107 The [facility] Comment on above: Performed By: #### C MP #### [facility] [address] [place] [address] Dr. Adalberto Dimas CO2 [Moles/Vol] 27.0 mmol/L Normal 21.0-32.0 [facility] Comment on above: Performed By: #### C MP #### [facility] [address] [place] [address] Dr. Adalberto Dimas Creatinine [Mass/Vol] 0.87 mg/dL Normal 0.55-1.02 [facility] Comment on above: Performed By: #### C MP #### [facility] [address] [place] [address] Dr. Adalberto Dimas EGFR-AF CYMRO >60 Normal >=60 The [facility] Comment on above: Performed By: #### C MP #### [facility] [address] [place] [address] Dr. Adalberto Dimas EGFR-NON AF CYMRO >60 Normal >=60 The [facility] Comment on above: Performed By: #### C MP #### [facility] [address] [place] [address] Dr. Adalberto Dimas Globulin (S) [Mass/Vol] 3.9 g/dL Normal The [facility] Comment on above: Performed By: #### C MP #### [facility] [address] [place] [address] Dr. Adalberto Dimas Glucose [Mass/Vol] 105 mg/dL Normal 74-106 [facility] Comment on above: Performed By: #### C MP #### [facility] [address] [address] [address] Adalberot Dimas Potassium [Moles/Vol] 3.5 mmol/L Normal 3.5-5.1 [facility] Comment on above: Performed By: #### C MP #### [facility] [address] [address] [address] Adalberto Dimas Protein [Mass/Vol] 7.7 g/dL Normal 6.4-8.2 [facility] Comment on above: Performed By: #### C MP #### [facility] [address] [address] [address] Adalberto Dimas Sodium [Moles/Vol] 137 mmol/L Normal 136-145 [facility] Comment on above: Performed By: #### C MP #### [facility] [address] [address] [address] Adalberto Dimas Urea nitrogen [Mass/Vol] 15.0 mg/dL Normal 7.0-18.0 [facility] Comment on above: Performed By: #### C MP #### [facility] [address] [address] [address] Adalberto Dimas Urea nitrogen/Creatinine [Mass ratio] 17.2 mg/mg Normal [facility] Comment on above: Performed By: #### C MP #### [facility] [address] [address] [address] Adalberto Dimas XR NECK SOFT TISSUEon [...] [place] Date: 2022-03-22 01:19 Normal The [facility] Quick Strepon 03-21-2022 S. pyogenes Org specific cx Ql (Throat) Positive [email or web address] Other [employer] Other CBC AUTO DIFFon 11-17-2021 BASO # 0.0 103/ul Normal 0.0-0.1 [facility] Comment on above: Performed By: #### C BC #### [facility] [address] [address] [address] Adalberto Dimas Basophils/100 WBC (Bld) 0.3 % Normal 0.2-2.0 [facility] Comment on above: Performed By: #### C BC #### [facility] [address] [address] [address] Adalberto Dimas EO # 0.1 103/ul Normal 0.0-0.7 [facility] Comment on above: Performed By: #### C BC #### [facility] [address] [place] [address] Dr. Adalberto Dimas Eosinophils/100 WBC (Bld) 0.4 % Critically low 0.9-7.0 [facility] Comment on above: Performed By: #### C BC #### [facility] [address] [place] [address] Dr. Adalberto Dimas Erythrocyte distribution width (RBC) [Ratio] 12.2 % Normal 11.0-15.0 [facility] Comment on above: Performed By: #### C BC #### [facility] [address] [place] [address] Dr. Adalberto Dimas Hematocrit (Bld) [Volume fraction] 41.7 % Normal 36.0-48.0 [facility] Comment on above: Performed By: #### C BC #### [facility] [address] [place] [address] Dr. Adalberto Dimas Hemoglobin (Bld) [Mass/Vol] 14.1 g/dL Normal 12.0-16.0 [facility] Comment on above: Performed By: #### C BC #### [facility] [address] [place] [address] Dr. Adalberto Dimas IG # 0.02 10e3/ul Normal 0.00-0.03 [facility] Comment on above: Performed By: #### C BC #### [facility] [address] [place] [address] Dr. Adalberto Dimas IG % 0.2 % Normal 0.0-0.5 [facility] Comment on above: Performed By: #### C BC #### [facility] [address] [place] [address] Dr. Adalberto Dimas LYMPH # 1.8 103/ul Normal 1.2-3.8 The [facility] Comment on above: Performed By: #### C BC #### [facility] [address] [place] [address] Dr. Adalberto Dimas Lymphocytes/100 WBC (Bld) 15.3 % Critically low 20.5-60.0 [facility] Comment on above: Performed By: #### C BC #### [facility] [address] [place] [address] Dr. Adalberto Dimas MANUAL DIFF REQ NO Normal [facility] Comment on above: Performed By: #### C BC #### [facility] [address] [place] [address] Dr. Adalberto Dimas MCH (RBC) [Entitic mass] 31.8 pg Normal 26.7-34.0 [facility] Comment on above: Performed By: #### C BC #### [facility] [address] [place] [address] Dr. Adalberto Dimas MCHC (RBC) [Mass/Vol] 33.8 g/dL Normal 29.9-35.2 The [facility] Comment on above: Performed By: #### C BC #### [facility] [address] [place] [address] Dr. Adalberto Dimas MCV (RBC) [Entitic vol] 93.9 fL Normal 81.0-99.0 The [facility] Comment on above: Performed By: #### C BC #### [facility] [address] [place] [address] Dr. Adalberto Dimas MONO # 1.1 103/ul Critically high 0.3-0.8 The [facility] Comment on above: Performed By: #### C BC #### [facility] [address] [address] [address] Adalberto Dimas Monocytes/100 WBC (Bld) 9.0 % Normal 1.7-12.0 The [facility] Comment on above: Performed By: #### C BC #### [facility] [address] [place] [address] Dr. Adalberto Dimas NEUT # 8.7 103/ul Critically high 1.4-6.5 [facility] Comment on above: Performed By: #### C BC #### [facility] [address] [place] [address] Dr. Adalberto Dimas Neutrophils/100 WBC (Bld) 74.8 % Normal 43.0-75.0 The [facility] Comment on above: Performed By: #### C BC #### [facility] [address] [place] [address] Dr. Adalberto Dimas Platelet mean volume (Bld) [Entitic vol] 9.3 fL Critically low 9.5-13.5 [facility] Comment on above: Performed By: #### C BC #### [facility] [address] [place] [address] Dr. Adalberto Dimas PLT 262 103/ul Normal 150-450 The [facility] Comment on above: Performed By: #### C BC #### [facility] [address] [place] [address] Dr. Adalberto Dimas RBC 4.44 106/ul Normal 4.20-5.40 The [facility] Comment on above: Performed By: #### C BC #### [facility] [address] [place] [address] Dr. Adalberto Dimas WBC 11.6 103/ul Critically high 4.0-11.0 The [facility] Comment on above: Performed By: #### C BC #### [facility] [address] [place], [place] [id number] Dr. Adalberto Dimas ER URINE PROFILEon 2 Bilirubin Ql (U) Negative Normal NEGATIVE The [facility] Comment on above: Performed By: #### E LUKE FROST #### [facility] [address] [place] [address] Dr. Adalberto Dimas Clarity (U) CLEAR Normal CLEAR The [facility] Comment on above: Performed By: #### Gaby FROST UMICRO #### [facility] [address] [place] [address] Dr. Adalberto Dimas Color (U) LT. YELLOW Normal YELLOW The [facility] Comment on above: Performed By: #### Gaby FROST UMICRO #### [facility] [address] [place] [address] Dr. Adalberto Dimas ERUAHD A micrscopic examina tion will be performed if indicated. Normal The [facility] Comment on above: Performed By: #### Gaby FROST UMICRO #### [facility] [address] [place] [address] Dr. Adalberto Dimas Glucose Ql (U) Negative Normal NEGATIVE [facility] Comment on above: Performed By: #### Gaby FROST UMICRO #### [facility] [address] [place] [address] Dr. Adalberto Dimas Hemoglobin Ql (U) Negative Normal NEGATIVE [facility] Comment on above: Performed By: #### Gaby FROST UMICRO #### [facility] [address] [place] [address] Dr. Adalberto Dimas Ketones Ql (U) Negative Normal NEGATIVE [facility] Comment on above: Performed By: #### Gaby FROST UMICRO #### [facility] [address] [place] [address] Dr. Adalberto Dimas LEUKOCYTES TRACE Abnormal NEGATIVE The [facility] Comment on above: Performed By: #### Gaby FROST UMICRO #### [facility] [address] [place] [address] Dr. Adalberto Dimas Nitrite Ql (U) Negative Normal NEGATIVE [facility] Comment on above: Performed By: #### Gaby FROST UMICRO #### [facility] [address] [place] [address] Dr. Adalberto Dimas pH (U) 7.0 [pH] Normal 5-9 The [facility] Comment on above: Performed By: #### DARYL EDWARDSRO #### [facility] [address] [address] [address] Adalberto Dimas SPEC GRAVITY 1.010 Normal 1.005-<=1. 025 [facility] Comment on above: Performed By: #### Gaby FROST UMICRO #### [facility] [address] [address] [address] Adalberto Dimas UA PROTEIN Negative Normal NEGATIVE/ TRACE [facility] Comment on above: Performed By: #### DARYL EDWARDSRO #### [facility] [address] [place] [address] Dr. Adalberto Dimas UR MICRO IND INDICATED Normal [facility] Comment on above: Performed By: #### DARYL EDWARDSRO #### [facility] [address] [place] [address] Dr. Adalberto Dimas Urobilinogen Qn (U) 0.2 {James'U}/dL Normal 0.2 - 1. 0 [facility] Comment on above: Performed By: #### DARYL EDWARDSRO #### [facility] [address] [place] [address] Dr. Adalberto Dimas PREG HCG QUALon 11-17-2021 , QUAL Negative Normal NEGATIVE [facility] Comment on above: Performed By: #### P REG #### [facility] [address] [place] [address] Dr. Adalberto Dimas PROF CHEM 8 (BAS METB)on Anion gap [Moles/Vol] 10.0 mmol/L Normal [facility] Comment on above: Performed By: #### B MP #### [facility] [address] [place] [address] Dr. Adalberto Dimas Calcium [Mass/Vol] 8.7 mg/dL Normal 8.5-10.1 [facility] Comment on above: Performed By: #### B MP #### [facility] [address] [place] [address] Dr. Adalberto Dimas Chloride [Moles/Vol] 104 mmol/L Normal 98-107 [facility] Comment on above: Performed By: #### B MP #### [facility] [address] [address] [address] Adalberto Dimas CO2 [Moles/Vol] 27.8 mmol/L Normal 21.0-32.0 The [facility] Comment on above: Performed By: #### B MP #### [facility] [address] [address] [address] Adalberto Dimas Creatinine [Mass/Vol] 0.79 mg/dL Normal 0.55-1.02 The [facility] Comment on above: Performed By: #### B MP #### [facility] [address] [address] [address] Adalberto Dimas EGFR-AF CYMRO >60 Normal >=60 The [facility] Comment on above: Performed By: #### B MP #### [facility] [address] [place] [address] Dr. Adalberto Dimas EGFR-NON AF CYMRO >60 Normal >=60 The [facility] Comment on above: Performed By: #### B MP #### [facility] [address] [place] [address] Dr. Adalberto Dimas Glucose [Mass/Vol] 96 mg/dL Normal 74-106 [facility] Comment on above: Performed By: #### B MP #### [facility] [address] [place] [address] Dr. Adalberto Dimas Potassium [Moles/Vol] 3.8 mmol/L Normal 3.5-5.1 The [facility] Comment on above: Performed By: #### B MP #### [facility] [address] [place] [address] Dr. Adalberto Dimas Sodium [Moles/Vol] 138 mmol/L Normal 136-145 [facility] Comment on above: Performed By: #### B MP #### [facility] [address] [address] [address] Adalberto Dimas Urea nitrogen [Mass/Vol] 12.0 mg/dL Normal 7.0-18.0 The [facility] Comment on above: Performed By: #### B MP #### [facility] [address] [address] [address] Adalberto Dimas Urea nitrogen/Creatinine [Mass ratio] 15.2 mg/mg Normal The [facility] Comment on above: Performed By: #### B MP #### [facility] [address] [place] [address] Dr. Adalberto Dimas URINE MICROSCOPIC ONLYon BACTERIA TRACE Abnormal NONE SEEN The [facility] Comment on above: Performed By: #### E RUR UMICRO #### [facility] [address] [place] [address] Dr. Adalberto Dimas Bacteria identified Cx Nom (U) NOT INDICATED Normal The [facility] Comment on above: Performed By: #### E RUR, UMICRO #### [facility] [address] [place] [address] Dr. Adalberto Dimas CAST NONE SEEN Normal NONE SEEN [facility] Comment on above: Performed By: #### E RUR UMICRO #### [facility] [address] [place] [address] Dr. Adalberto Dimas Crystals LM Nom (Urine sed) NONE SEEN Normal NONE SEEN The [facility] Comment on above: Performed By: #### E RUR UMICRO #### [facility] [address] [place] [address] Dr. Adalberto Dimas Epithelial cells LM Ql (Urine sed) MODERATE Abnormal NONE SEEN /RARE The [facility] Comment on above: Performed By: #### E RUR UMICRO #### [facility] [address] [place] [address] Dr. Adalberto Dimas MUCOUS NONE SEEN Normal NONE SEEN The [facility] Comment on above: Performed By: #### E RUR, UMICRO #### [facility] [address] [place] [address] Dr. Adalberto Dimas RBC NONE SEEN Abnormal 0-2 The [facility] Comment on above: Performed By: #### E RUR, UMICRO #### [facility] [address] [place] [address] Dr. Adalberto Dimas WBC 0-2 Abnormal NONE SEEN The [facility] Comment on above: Performed By: #### E RUR, UMICRO #### [facility] [address] [place], [place] [address] Dr. Adalberto Dimas Complete Blood Count with Au to Diffon 10-02-2021 Basophils (Bld) [#/Vol] 0.04 10*3/uL Normal 0.00-0.20 [facility] Clinical [facility] Comment on above: Performed By: #### F ERR, FE Prof, CBCAD, RETIC #### [facility] [address], [place] [id number] Basophils/100 WBC (Bld) 0.5 % Normal [facility] Specialist Comment on above: Performed By: #### F ERR, FE Prof, CBCAD, RETIC #### [facility] [address], [place] [id number] Eosinophils (Bld) [#/Vol] 0.04 10*3/uL Normal 0.02-0.50 [facility] Comment on above: Performed By: #### F ERR, FE Prof, CBCAD, RETIC #### [facility] [address], [place] [id number] Eosinophils/100 WBC (Bld) 0.5 % Normal [facility] Comment on above: Performed By: #### F ERR, FE Prof, CBCAD, RETIC #### [facility] [address], [place] [id number] Erythrocyte distribution width (RBC) [Ratio] 12.5 % Normal 11.0-15.0 [facility] Comment on above: Performed By: #### F ERR, FE Prof, CBCAD, RETIC #### [facility] [address], [place] [id number] Hematocrit (Bld) [Volume fraction] 41.0 % Normal 35.0-47.0 [facility] Comment on above: Performed By: #### F ERR, FE Prof, CBCAD, RETIC #### [facility] [address], [place] [id number] Hemoglobin (Bld) [Mass/Vol] 13.7 g/dL Normal 11.6-15.5 [facility] Comment on above: Performed By: #### F ERR, FE Prof, CBCAD, RETIC #### [facility] [address], [place] [id number] Lymphocytes (Bld) [#/Vol] 2.1 10*3/uL Normal 0.9-3.9 [facility] Comment on above: Performed By: #### F MADY, FE Prof, CBCAD, RETIC #### [facility] [address], [place] [id number] Lymphocytes/100 WBC (Bld) 24.2 % Normal [facility] Comment on above: Performed By: #### F MADY, FE Prof, CBCAD, RETIC #### [facility] [address], [place] [id number] MCH (RBC) [Entitic mass] 31.6 pg Normal 27.0-33.0 [facility] Comment on above: Performed By: #### F ERR, FE Prof, CBCAD, RETIC #### [facility] [address], [place] [id number] MCHC (RBC) [Mass/Vol] 33.4 g/dL Normal 32.0-36.0 [facility] Comment on above: Performed By: #### F ERR, FE Prof, CBCAD, RETIC #### [facility] [address], [place] [id number] MCV (RBC) [Entitic vol] 95 fL Normal 80-100 [facility] Comment on above: Performed By: #### F ERR, FE Prof, CBCAD, RETIC #### [facility] [address], [place] [id number] Monocytes (Bld) [#/Vol] 0.7 10*3/uL Normal 0.2-0.9 [facility] Comment on above: Performed By: #### F ERR, FE Prof, CBCAD, RETIC #### [facility] [address], [place] [id number] Monocytes/100 WBC (Bld) 7.9 % Normal [facility] Comment on above: Performed By: #### F ERR, FE Prof, CBCAD, RETIC #### [facility] [address], [place] [id number] Neutrophils (Bld) [#/Vol] 5.7 10*3/uL Normal 1.5-7.8 [facility] Comment on above: Performed By: #### F ERR, FE Prof, CBCAD, RETIC #### [facility] [address], [place] [id number] Neutrophils/100 WBC (Bld) 66.5 % Normal [facility] Comment on above: Performed By: #### F ERR, FE Prof, CBCAD, RETIC #### [facility] [address], [place] [id number] Platelet mean volume (Bld) [Entitic vol] 9.80 fL Normal 7.50-12.50 [facility] Comment on above: Performed By: #### F ERR, FE Prof, CBCAD, RETIC #### [facility] [address], [place] [id number] Platelets (Bld) [#/Vol] 253 10*3/uL Normal 140-400 [facility] Comment on above: Performed By: #### F ERR, FE Prof, CBCAD, RETIC #### [facility] [address], [place] [id number] RBC (Bld) [#/Vol] 4.34 10*6/uL Normal 3.90-5.20 [facility] Comment on above: Performed By: #### F ERR, FE Prof, CBCAD, RETIC #### [facility] [address], [place] [id number] RDW-SD 43.6 fL Normal 37.0-50.0 [facility] Comment on above: Performed By: #### F ERR, FE Prof, CBCAD, RETIC #### [facility] [address], [place] [id number] WBC (Bld) [#/Vol] 8.6 10*3/uL Normal 3.8-11.0 [facility] Comment on above: Performed By: #### F ERR, FE Prof, CBCAD, RETIC #### [facility] [address], [place] [id number] Ferritinon 10-02-2021 FERR 77.1 ng/mL Normal 15.0-150.0 [facility] Comment on above: Performed By: #### F ERR, FE Prof, CBCAD, RETIC #### [facility] [address] [place], [place] [id number] Iron Profileon 10-02-2021 %FESAT 22 % Normal 11-50 [facility] Specialist Comment on above: Performed By: #### F ERR, FE Prof, CBCAD, RETIC #### [facility] [address], [place] [id number] FE 67 ug/dL Normal 40-190 [facility] Specialist Comment on above: Result Comment: Refe rence range change 04/10/2017. Prior reference range F 37-145 ug/dL, M 59-158 ug/dL. Performed By: #### F ERR, FE Prof, CBCAD, RETIC #### [facility] [address], [place] [id number] TIBC 300 ug/dL Normal 250-450 [facility] Specialist Comment on above: Performed By: #### F ERR, FE Prof, CBCAD, RETIC #### [facility] [address], [place] [id number] UIBC 233 ug/dL Normal 112-347 [facility] Clinical Engineer Comment on above: Performed By: #### F ERR, FE Prof, CBCAD, RETIC #### [facility] [address], [place] [id number] Q - PROTHROMBIN TIME WITH IN Tyson 10-02-2021 INR Coag (PPP) [Relative time] 1.0 {INR} Normal [facility] Specialist Comment on above: Order Comment: [facility] performed at: QPT, [facility], [address] [place] [address], [address] [place] [address], [phone], [employer]: Blade Vazquez MD [facility] Collection Date/Time: [facility] Results Received Date/Time: [facility] Reported Date/Time: Result Comment: Refe rence Range 0.9-1.1 Moderate-intensity Warfarin Therapy 2.0-3.0 Higher-intensity Warfarin Therapy 3.0-4.0 Performed By: #### 2 6F, 763X, 4919X #### [facility] Default [address] [place] [address] PT Coag (PPP) [Time] 9.7 s Normal 9.0-11.5 [facility] Comment on above: Order Comment: [facility] performed at: [place] [employer] [facility], [address] [facility], [address] [place] [address], [phone], [employer]: Blade Vazquez MD [facility] Date/Time: [facility] Results Received Date/Time: [facility] Reported Date/Time: Result Comment: For additional information, please refer to [email or web address] (This link is being provided for informational/ educational purposes only.) Performed By: #### 2 6F, 763X, 4919X #### [facility] [address] [place] [address] Q - PTTon 10-02-2021 PARTIAL THROMBOPLASTIN TIME, ACTIVATED 30 sec Normal 23-32 [facility] Comment on above: Order Comment: [facility] performed at: [employer] [facility], [address] [facility], [address] [place] [address], [phone], [employer]: Blade Vazquez MD [facility] Date/Time: [facility] Results Received Date/Time: [facility] Reported Date/Time: Result Comment: This test has not been validated for monitoring unfractionated heparin therapy. For testing that is validated for this type of therapy, please refer to the Heparin Anti-Xa assay (test code 66381). For additional information, please refer to [email or web address]/[email or web address] (This link is being provided for informational/educational purposes only.) Performed By: #### 2 6F, 763X, 4919X #### [facility] [address] [place] [address] Q - VON WILLEBRAND FACTOR AN TIGENon 10-02-2021 VON WILLEBRAND FACTOR ANTIGEN 74 % Normal 50-217 [facility] Specialist Comment on above: Order Comment: [facility] performed at: [facility], [facility], [address], [place], , [employer] Of [employer]ustainable [employer]: Keven Crowley M.D.,PhD [facility] Date/Time: [facility] Results Received Date/Time: [facility] Reported Date/Time: Performed By: #### 2 6F, 763X, 4919X #### [facility] [address] [place] [address] RETICon 10-02-2021 IRF 8.90 % High 0.01-0.16 [facility] Specialist Comment on above: Performed By: #### F ERR, FE Prof, CBCAD, RETIC #### [facility] [address], [place] [id number] RET# 0.07 M/uL Normal 0.02-0.10 [facility] Clinical Engineer Comment on above: Performed By: #### F ERR, FE Prof, CBCAD, RETIC #### [facility] [address], [place] [id number] Ret% 1.51 % Normal 0.40-1.80 [facility] Clinical Engineer Comment on above: Performed By: #### F ERR, FE Prof, CBCAD, RETIC #### [facility] [address], [place] [id number] RET-HE 36.90 pg Normal 31.90-37.1 0 [facility] Clinical Engineer Comment on above: Performed By: #### F ERR, FE Prof, CBCAD, RETIC #### [facility] [address], [place] [id number] Vitamin B12/Folateon 022 Cobalamin (Vitamin B12) [Mass/Vol] 408 pg/mL Normal 211-946 [facility] Clinical Engineer Comment on above: Performed By: #### B 12/Fol #### [facility] [address], [place] [id number] FOL 8.6 ng/mL Normal >4.7 [facility] Clinical Engineer Comment on above: Result Comment: Refe rence range change 04/10/2017. Prior reference range F 4.8-37.3 ng/mL, M 4.5-32.2 ng/mL. Performed By: #### B 12/Fol #### [facility] [address] [place], [place] [id number] XR knee LT 4V*on 07-20-2021 XR knee LT 4V* [facility] [employer] Other XR knee LT 4V* [facility] [employer] Other XR knee LT 4V* [address] [facility] [employer] Other XR knee LT 4V* [place] [address] No rt [employer] Other XR knee LT 4V* XRay Report [employer] Other XR knee LT 4V* Signed [employer] Other XR knee LT 4V* Patient: Erma Almazan MR#: [id number] [place] [employer] Other XR knee LT 4V* 184 [employer] Other XR knee LT 4V* : 1995 Acct:[id number] [email or web address] Other XR knee LT 4V* Age/Sex: 26 / F ADM Date: 07/20/21 [email or web address] Other XR knee LT 4V* Loc: [id number] [facility] [email or web address] Other XR knee LT 4V* Attending Dr: Asim Palma PROPAGATION MANAGER-C [email or web address] Other XR knee LT 4V* Ordering Provider: Tony Palma SENIOR PLANNING ANALYST-C [email or web address] Other XR knee LT 4V* Date of Service: 07/20/21 [email or web address] Other XR knee LT 4V* XR/XR knee LT 4V*: Acute pain of left knee [email or web address] Other XR knee LT 4V* Copies to: Asim jones Minerva SENIOR PLANNING ANALYST-C [email or web address] Other XR knee LT 4V* Left knee 07/20/2021. [email or web address] Other XR knee LT 4V* CLINICAL DATA: Left knee pain. No known injury. [email or web address] Other XR knee LT 4V* FINDINGS: 4 views of the left knee were obtained. [email or web address] Other XR knee LT 4V* No acute fracture or dislocation is identified. No early degenerative or other arthritic changes [email or web address] Other XR knee LT 4V* are seen. No bony er osion or destruction is visualized. There is no suprapatellar effusion. [email or web address] Other XR knee LT 4V* X R/XR knee LT 4V* [email or web address] Other XR knee LT 4V* IMPRESSION: No acute bony abnormality or effusion. 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 NoneOrdered By: Denton Barr on 12-08-2020 1. No acute intra-abdominal abnormality. 2. Hepatic steatosis. Multiple areas of increased attenuation in the hepatic lobes, likely fatty sparing. 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 Bones/Soft Tissues: No acute osseous abnormality. 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 [employer] Phone: [employer] Phone: BASIC METABOLIC PANELOrdered By: Denton Barr on 12-07-2020 Anion gap [Moles/Vol] 10 mmol/L 9 - 17 mmol/L [employer] Phone: Calcium [Mass/Vol] 8.7 mg/dL 8.6 - 10. 4 mg/dL [employer] Phone: Chloride [Moles/Vol] 103 mmol/L 98 - 10 7 mmol/L [employer] Phone: CO2 [Moles/Vol] 25 mmol/L 20 - 31 mmol/L [employer] Phone: Creatinine [Mass/Vol] 0.68 mg/dL 0.50 - 0.90 mg/dL [employer] Phone: GFR >60 >60 mL/min [employer] Phone: GFR Non- >60 >60 mL/min [employer] Phone: GFR/1.73 sq M.predicted MDRD (S/P/Bld) [Vol rate/Area] [employer] Phone: Comment on above: Average GFR for 20-2 9 years old: 116 mL/min/1.73sq m Chronic Kidney Disease: <60 mL/min/1.73sq m Kidney failure: <15 mL/min/1.73sq m eGFR calculated using average adult body mass. Additional eGFR calculator available at: http://www.[employer]/multiple_crcl_2012.htm GFR/1.73 sq M.predicted MDRD (S/P/Bld) [Vol rate/Area] NOT REPORTED [employer] Phone: Glucose [Mass/Vol] 108 mg/dL High 70 - 99 mg/dL [employer] Phone: Interpretation and review of laboratory results Abnormal [employer] Phone: Potassium [Moles/Vol] 4.1 mmol/L 3.7 - 5.3 mmol/L [employer] Phone: Sodium [Moles/Vol] 138 mmol/L 135 - 144 mmol/L [employer] Phone: Urea nitrogen (BldV) [Mass/Vol] 12 mg/dL 6 - 20 mg/dL [employer] Phone: Urea nitrogen/Creatinine (Bld) [Mass ratio] NOT REPORTED [employer] Phone: [employer] Phone: Basic Metabolic Profon 12-07 (cont.) Normal [facility] Comment on above: Result Comment: Aver age GFR for 20-29 years old: 116 mL/min/1.73sq m Chronic Kidney Disease: <60 mL/min/1.73sq m Kidney failure: <15 mL/min/1.73sq m eGFR calculated using average adult body mass. Additional eGFR calculator available at: http://www.[employer]/multiple_crcl_2012.htm Performed By: #### C DP, HCG, BMP #### [facility] [address] [place] [phone] Log S[employer] Supervisor: Lloyd Vela MD Anion gap [Moles/Vol] 10 mmol/L Normal 9-17 [facility] Comment on above: Performed By: #### C DP, HCG, BMP #### [facility] [address] [place] [phone] Log S[employer] Supervisor: Lloyd Vela MD Calcium [Mass/Vol] 8.7 mg/dL Normal 8.6-10.4 [facility] Comment on above: Performed By: #### C DP, HCG, BMP #### [facility] [address] [place] [phone] Log S[employer] Supervisor: Lloyd Vela MD Chloride [Moles/Vol] 103 mmol/L Normal 98-107 [facility] Comment on above: Performed By: #### C DP, HCG, BMP #### [facility] [address] [place] [phone] [employer] S[employer] Supervisor: Lloyd Vela MD CO2 [Moles/Vol] 25 mmol/L Normal 20-31 [facility] Comment on above: Performed By: #### C DP, HCG, BMP #### [facility] [address] [place] [address] [employer] Supervisor: Lloyd Vela MD Creatinine [Mass/Vol] 0.68 mg/dL Normal 0.50-0.90 [facility] Comment on above: Performed By: #### C DP, HCG, BMP #### [facility] [address] [place] [phone] [employer] Supervisor: Lloyd Vela MD GFR, Amer >60 Normal >60 [facility] Comment on above: Performed By: #### C DP, HCG, BMP #### [facility] [address] [place] [phone] [employer] Supervisor: Lloyd Vela MD GFR,non Amer >60 Normal >60 [facility] Comment on above: Performed By: #### C DP, HCG, BMP #### [facility] [address] [place] [phone] Log [employer] Supervisor: Lloyd Vela MD Glucose [Mass/Vol] 108 mg/dL High 70-99 [facility] Comment on above: Performed By: #### C DP, HCG, BMP #### [facility] [address] [place] [phone] Log S[employer] Supervisor: Lloyd Vela MD Potassium [Moles/Vol] 4.1 mmol/L Normal 3.7-5.3 [facility] Comment on above: Performed By: #### C DP, HCG, BMP #### [facility] [address] [place] [phone] Log S[employer] Supervisor: Lloyd Vela MD Sodium [Moles/Vol] 138 mmol/L Normal 135-144 [facility] Comment on above: Performed By: #### C DP, HCG, BMP #### [facility] [address] [place] [phone] [employer] Supervisor: Lloyd Vela MD Urea nitrogen [Mass/Vol] 12 mg/dL Normal - [facility] Comment on above: Performed By: #### C DP, HCG, BMP #### [facility] [address] [place] [phone] Log S[employer] Supervisor: Lloyd Vela MD BUN/CRE Ratio NOT REPORTED Normal - [facility] Comment on above: Performed By: #### C DP, HCG, BMP #### [facility] [address] [place] [phone] Log S[employer] Supervisor: Lloyd Vela MD Staging: NOT REPORTED Normal [facility] Comment on above: Performed By: #### C DP, HCG, BMP #### [facility] [employer] [address] [place] [phone] Log S[employer] Supervisor: Lloyd Vela MD CBC WITH AUTO DIFFERENTIALOr dered By: Denton Barr on 12-07-2020 [employer] # 0.07 [facility] Work Phone: Absolute Immature Granulocyte 0.05 [facility] Work Phone: [employer] Lymph # 3.21 [facility] Work Phone: [employer] [place] # 0.94 [facility] Work Phone: Basophils (Bld) [#/Vol] 0.04 10*3/uL [employer] Phone: Basophils/100 WBC (Bld) 0 % 0 - 2 % [employer] Phone: Differential Type NOT REPORTED [employer] Phone: Eosinophils/100 WBC (Bld) 1 % 1 - 4 % [employer] Phone: Hematocrit (Bld) [Volume fraction] 39.2 % 36.3 - 47.1 % [employer] Phone: Hemoglobin.gastrointes tinal spec 1 Ql (Stl) 13.1 g/dL 11.9 - 15.1 g/dL [employer] Phone: Immature granulocytes/100 WBC (Bld) 0 % 0 [employer] Phone: Interpretation and review of laboratory results Abnormal [employer] Phone: Lymphocytes/100 WBC (Bld) 27 % 24 - 43 % [employer] Phone: MCH (RBC) [Entitic mass] 31.0 pg 25.2 - 33.5 pg [employer] Phone: MCHC (RBC) [Mass/Vol] 33.4 g/dL 28.4 - 34.8 g/dL [employer] Phone: MCV (RBC) [Entitic vol] 92.9 fL 82.6 - 102.9 fL [employer] Phone: Monocytes/100 WBC (Bld) 8 % 3 - 12 % [employer] Phone: NRBC Automated 0.0 0.0 per 100 WBC [employer] Phone: Platelet distribution width (Bld) [Ratio] 12.3 % 11.8 - 14.4 % [employer] Phone: Platelet Estimate NOT REPORTED [employer] Phone: Platelet mean volume (Bld) [Entitic vol] 9.0 fL 8.1 - 13.5 fL [employer] Work Phone: Platelets (Bld) [#/Vol] 314 10*3/uL [employer] Phone: RBC (Bld) [#/Vol] 4.22 10*6/uL 3.95 - 5.11 m/uL [employer] Phone: RBC (Bld) [#/Vol] NOT REPORTED [employer] Phone: Segmented neutrophils/100 WBC (Bld) 64 % 36 - 65 % [employer] Work Phone: Segs [employer] 7.42 [employer] Work Phone: WBC (Bld) [#/Vol] 11.7 10*3/uL High [employer] Phone: WBC (Bld) [#/Vol] NOT REPORTED [employer] Phone: [employer] Work Phone: CBC with Diffon 12-07-2020 Abs. Basophil 0.04 k/uL Normal 0.00-0.20 [facility] Comment on above: Performed By: #### C DP, HCG, BMP #### [facility] [address] [place] [address] Log Sorting Supervisor: Lloyd Vela MD Abs.Imm.Granulocyte 0.05 k/uL Normal 0.00-0.30 [facility] Comment on above: Performed By: #### C DP, HCG, BMP #### [facility] [address] [place] [phone] Log Sorting Supervisor: Lloyd Vela MD Abs.Neutrophil (Seg) 7.42 k/uL Normal 1.50-8.10 [facility] Comment on above: Performed By: #### C DP, HCG, BMP #### [facility] [address] [place] [address] 45916 Log Sorting Supervisor: Lloyd Vela MD Basophils/100 WBC (Bld) 0 % Normal 0-2 [facility] Comment on above: Performed By: #### C DP, HCG, BMP #### [facility] [address] [place] [address] 41442 Log Sorting Supervisor: Lloyd Vela MD Eosinophils (Bld) [#/Vol] 0.07 10*3/uL Normal 0.00-0.44 [facility] Comment on above: Performed By: #### C DP, HCG, BMP #### [facility] [address] [place] [address] 59537 Log Sorting Supervisor: Lloyd Vela MD Eosinophils/100 WBC (Bld) 1 % Normal 1-4 [facility] Comment on above: Performed By: #### C DP, HCG, BMP #### [facility] [address] [place] [address] 40782 Log Sorting Supervisor: Lloyd Vela MD Immature granulocytes/100 WBC (Bld) 0 % Normal 0 [facility] Comment on above: Performed By: #### C DP, HCG, BMP #### [facility] [address] [place] [address] 42154 Log Sorting Supervisor: Lloyd Vela MD Lymphocytes (Bld) [#/Vol] 3.21 10*3/uL Normal 1.10-3.70 [facility] Comment on above: Performed By: #### C DP, HCG, BMP #### [facility] [address] [place] [address] 52[address] Log Sorting Supervisor: Lloyd Vela MD Lymphocytes/100 WBC (Bld) 27 % Normal 24-43 [facility] Comment on above: Performed By: #### C DP, HCG, BMP #### [facility] [address] [place] [address] 36465 Log Sorting Supervisor: Lloyd Vela MD Monocytes (Bld) [#/Vol] 0.94 10*3/uL Normal 0.10-1.20 [facility] Comment on above: Performed By: #### C DP, HCG, BMP #### [address] [address] Log Sorting Supervisor: Lloyd Vela MD Monocytes/100 WBC (Bld) 8 % Normal 3-12 [facility] Comment on above: Performed By: #### C DP, HCG, BMP #### [facility] [address] [place] [address] 16796 Log Sorting Supervisor: Lloyd Vela MD Neutrophil (Seg) 64 % Normal 36-65 [facility] Comment on above: Performed By: #### C DP, HCG, BMP #### [address] [address] Log Sorting Supervisor: Lloyd Vela MD Erythrocyte distribution width (RBC) [Ratio] 12.3 % Normal 11.8-14.4 [facility] Comment on above: Performed By: #### C DP, HCG, BMP #### [address] [address] Log Sorting Supervisor: Lloyd Vela MD Hematocrit (Bld) [Volume fraction] 39.2 % Normal 36.3-47.1 [facility] Comment on above: Performed By: #### C DP, HCG, BMP #### [facility] [address] [place] [address] 78128 Log Sorting Supervisor: Lloyd Vela MD Hemoglobin (Bld) [Mass/Vol] 13.1 g/dL Normal 11.9-15.1 [facility] Comment on above: Performed By: #### C DP, HCG, BMP #### [facility] [address] [place] [address] 99147 Log Sorting Supervisor: Lloyd Vela MD MCH (RBC) [Entitic mass] 31.0 pg Normal 25.2-33.5 [facility] Comment on above: Performed By: #### C DP, HCG, BMP #### [address] [address] Log Sorting Supervisor: Lloyd Vela MD MCHC (RBC) [Mass/Vol] 33.4 g/dL Normal 28.4-34.8 [facility] Comment on above: Performed By: #### C DP, HCG, BMP #### [address] [address] Log Sorting Supervisor: Lloyd Vela MD MCV (RBC) [Entitic vol] 92.9 fL Normal 82.6-102.9 [facility] Comment on above: Performed By: #### C DP, HCG, BMP #### [address] [address] Log Sorting Supervisor: Lloyd Vela MD NRBC Automated 0.0 per 100 WBC Normal 0.0 [facility] Comment on above: Performed By: #### C DP, HCG, BMP #### [address] [address] Log Sorting Supervisor: Lloyd Vela MD Platelet mean volume (Bld) [Entitic vol] 9.0 fL Normal 8.1-13.5 [facility] Comment on above: Performed By: #### C DP, HCG, BMP #### [place] [address] Log Sorting Supervisor: Lloyd Vela MD Platelets (Bld) [#/Vol] 314 10*3/uL Normal 138-453 [facility] Comment on above: Performed By: #### C DP, HCG, BMP #### [address] [address] Log Sorting Supervisor: Lloyd Vela MD RBC (Bld) [#/Vol] 4.22 10*6/uL Normal 3.95-5.11 [facility] Comment on above: Performed By: #### C DP, HCG, BMP #### [address] [address] Log Sorting Supervisor: Lloyd Vela MD WBC (Bld) [#/Vol] 11.7 10*3/uL High 3.5-11.3 [facility] Comment on above: Performed By: #### C DP, HCG, BMP #### [facility] [address] [place] [address] 79771 Log Sorting Supervisor: Lloyd Vela MD Auto Diff Performed NOT REPORTED Normal [facility] Comment on above: Performed By: #### C DP, HCG, BMP #### [facility] [address] [place] [address] 54347 Log Sorting Supervisor: Lloyd Vela MD Platelet Estimate NOT REPORTED Normal [facility] Comment on above: Performed By: #### C DP, HCG, BMP #### [facility] [address] [place] [address] 52575 Log Sorting Supervisor: Lloyd Vela MD RBC morphology finding Nom (Bld) NOT REPORTED Normal [facility] Comment on above: Performed By: #### C DP, HCG, BMP #### [facility] [address] [place] [address] [phone] Log Sorting Supervisor: Lloyd Vela MD WBC Morphology NOT REPORTED Normal [facility] Comment on above: Performed By: #### C DP, HCG, BMP #### [facility] [address] [place] [address] 11872 Log Sorting Supervisor: Lloyd Vela MD HCG Qualitative, SerumOrdere d By: Denton Barr on 12-07-2020 hCG Qual Negative NEGATIVE [facility] Work Phone: Comment on above: Specimens with hCG l evels near the threshold of the test (25 mIU/mL) may give a negative or indeterminate result. In such cases, another test should be performed with a new specimen in 48-72 hours. If early is suspected clinically in this setting, correlation with quantitative serum b-hCG level is suggested. [facility] has confirmed the use of plasma for this test. This has not been cleared or approved by the U.S. Food and Drug Administration. The FDA has determined that such clearance is not necessary. [employer] Work Phone: HCG Screen, Bloodon 12-08-19 21 HCG Screen, Blood Negative Normal NEG [facility] Comment on above: Result Comment: Spec imens with hCG levels near the threshold of the test (25 mIU/mL) may give a negative or indeterminate result. In such cases, another test should be performed with a new specimen in 48-72 hours. If early is suspected clinically in this setting, correlation with quantitative serum b-hCG level is suggested. [facility] has confirmed the use of plasma for this test. This has not been cleared or approved by the U.S. Food and Drug Administration. The FDA has determined that such clearance is not necessary. Performed By: #### C DP, HCG, BMP #### [facility] [place] [address] Log Sorting Supervisor: Lloyd Vela MD Microscopic UrinalysisOrdere d By: Denton Barr on 12-07-2020 - [employer] Phone: Amorphous, UA NOT REPORTED None [facility] Work Phone: Bacteria, UA FEW Abnormal None [employer] Work Phone: Casts UA NOT REPORTED [facility] Work Phone: Crystals, UA NOT REPORTED None /HPF [facility] Work Phone: Epithelial Cells UA 2 TO 5 [employer] Work Phone: Interpretation and review of laboratory results Abnormal [employer] Work Phone: Mucus, UA NOT REPORTED None [employer] Phone: Other Observations UA NOT REPORTED NOT REQ. [facility] Work Phone: RBC, UA 2 TO 5 [employer] Work Phone: Comment on above: Reference range defi hafsa for non-centrifuged specimen. Renal Epithelial, UA NOT REPORTED 0 /HPF [facility] Work Phone: Trichomonas, UA NOT REPORTED None [facility] Work Phone: WBC, UA 5 TO 10 [facility] Work Phone: Yeast, UA NOT REPORTED None [facility] Work Phone: [facility] Work Phone: UA w/Reflex Cultureon 2020 Bilirubin, SemiQt,Ur Negative Normal NEG [facility] Comment on above: Performed By: #### U MICAO, UAX #### [facility] [address] [place] [address] [phone] Log Sorting Supervisor: Lloyd Vela MD Blood, Urine TRACE Abnormal NEG [facility] Comment on above: Performed By: #### U MICAO, UAX #### [facility] [address] [place] [address] [phone] Log Sorting Supervisor: Lloyd Vela MD Clarity (U) CLEAR Normal CLEAR [facility] Comment on above: Performed By: #### U MICAO, UAX #### [facility] [address] [place] [address] [phone] Log Sorting Supervisor: Lloyd Vela MD Color (U) YELLOW Normal YEL [facility] Comment on above: Performed By: #### U MICAO, UAX #### [facility] [address] [place] [address] [phone] Log Sorting Supervisor: Lloyd Vela MD Glucose Ql (U) Negative Normal NEG [facility] Comment on above: Performed By: #### U MICAO, UAX #### [facility] [address] [place] [address] [phone] Log Sorting Supervisor: Lloyd Vela MD Ketones Ql (U) Negative Normal NEG [facility] Comment on above: Performed By: #### U MICAO, UAX #### [facility] [address] [place] [address] 78347 Log Sorting Supervisor: Lloyd Vela MD Leukocyte esterase Test strip Ql (U) Negative Normal NEG [facility] Comment on above: Performed By: #### U MICAO, UAX #### [facility] [address] [place] [address] 67603 Log Sorting Supervisor: Lloyd Vela MD Nitrite,Ur Negative Normal NEG [facility] Comment on above: Performed By: #### U MICAO, UAX #### [address] [address] Log Sorting Supervisor: Lloyd Vela MD PH,Ur 5.5 Normal 5.0-8.0 [facility] Comment on above: Performed By: #### U MICAO, UAX #### [address] [address] Log Sorting Supervisor: Lloyd Vela MD Protein Ql (U) Negative Normal NEG [facility] Comment on above: Performed By: #### U MICAO, UAX #### [address] [address] Log Sorting Supervisor: Lloyd Vela MD Spec. Duncan,Ur 1.020 Normal 1.005-1.03 0 [facility] Comment on above: Performed By: #### U MICAO, UAX #### [address] [address] Log Sorting Supervisor: Lloyd Vela MD Urobilinogen,Ur Normal Normal NORM [facility] Comment on above: Performed By: #### U MICAO, UAX #### [facility] [address] [place] [address] 31548 Log Sorting Supervisor: Lloyd Vela MD Comment NOT REPORTED Normal [facility] Comment on above: Performed By: #### U MICAO, UAX #### [facility] [address] [place] [address] Log Sorting Supervisor: Lloyd Vela MD Urinalysis Reflex to Culture Ordered By: Denton Barr on 12-07-2020 Bilirubin Urine Negative NEGATIVE [facility] Work Phone: Color, UA YELLOW YELLOW [facility] Work Phone: Glucose, Ur Negative NEGATIVE [facility] Work Phone: Interpretation and review of laboratory results Abnormal [facility] Work Phone: Ketones Ql (U) Negative NEGATIVE [facility] Work Phone: Leukocyte esterase Test strip Ql (U) Negative NEGATIVE [facility] Work Phone: Nitrite, Urine Negative NEGATIVE [facility] Work Phone: pH, UA 5.5 [facility] Work Phone: Protein, UA Negative NEGATIVE [facility] Work Phone: Specific Duncan, UA 1.020 [facility] Work Phone: Turbidity UA CLEAR CLEAR [facility] Work Phone: Urinalysis Comments NOT REPORTED [facility] Work Phone: Urine Hgb TRACE Abnormal NEGATIVE [facility] Work Phone: Urobilinogen, Urine Normal Normal [facility] Work Phone: [facility] Work Phone: Urinalysis,Microon 1 ----- Normal [facility] Comment on above: Performed By: #### U MICAO, UAX #### [facility] [address] [place], [place] [phone] Log Sorting Supervisor: Lloyd Vela MD Bacteria FEW Abnormal NONE [facility] Comment on above: Performed By: #### U MICAO, UAX #### [facility] [address] [place] [address] 75081 Log Sorting Supervisor: Lloyd Vela MD Epithelial cells LM Ql (Urine sed) 2 TO 5 Normal 0-5 [facility] Comment on above: Performed By: #### U MICAO, UAX #### [facility] [address] [place] [address] [phone] Log Sorting Supervisor: Lloyd Vela MD Urine RBC's 2 TO 5 Normal 0-4 [facility] Comment on above: Result Comment: Refe rence range defined for non-centrifuged specimen. Performed By: #### U MICAO, UAX #### [facility] [address] [place] [address] [phone] Log Sorting Supervisor: Lloyd Vela MD Urine WBC's 5 TO 10 Normal 0-5 [facility] Comment on above: Performed By: #### U MICAO, UAX #### [facility] [address] [place] [address] [phone] Log Sorting Supervisor: Lloyd Vela MD Amorphous sediment LM Ql (Urine sed) NOT REPORTED Normal NONE [facility] Comment on above: Performed By: #### U MICAO, UAX #### [facility] [address] [place] [address] 33763 Log Sorting Supervisor: Lloyd Vela MD Casts NOT REPORTED Normal 0-8 [facility] Comment on above: Performed By: #### U MICAO, UAX #### [facility] [address] [place] [address] [phone] Log Sorting Supervisor: Lloyd Vela MD Crystals LM Nom (Urine sed) NOT REPORTED Normal NONE [facility] Comment on above: Performed By: #### U MICAO, UAX #### [facility] [address] [place] [address] 22560 Log Sorting Supervisor: Lloyd Vela MD Epithelial, Renal NOT REPORTED Normal 0 [facility] Comment on above: Performed By: #### U MICAO, UAX #### [facility] [address] [place] [address] Log Sorting Supervisor: Lloyd Vela MD Mucus Strands NOT REPORTED Normal NONE [facility] Comment on above: Performed By: #### U MICAO, UAX #### [facility] [address] [place] [phone] Log Sorting Supervisor: Lloyd Vela MD Other Observations NOT REPORTED Normal NREQ [facility] Comment on above: Performed By: #### U MICAO, UAX #### [facility] [address] [place] [address] 63302 Log Sorting Supervisor: Lloyd Vela MD Trichomonas NOT REPORTED Normal NONE [facility] Comment on above: Performed By: #### U MICAO, UAX #### [facility] [address] [place] [address] 83329 Log Sorting Supervisor: Lloyd Vela MD Yeast NOT REPORTED Normal NONE [facility] Comment on above: Performed By: #### U MICAO, UAX #### [address] [address] Log Sorting Supervisor: Lloyd Vela MD Vital Signs Date Time Vital Sign Value Performing Clinician Facility 07-27-2024 08:56-0500 Body mass index (BMI) [Ratio] 39.29 kg/m2 [facility] GHOTRA Work Phone: [facility] 07-27-2024 08:56-0500 Body weight 97.43 kg [facility] GHOTRA Work Phone: [facility] 07-27-2024 08:56-0500 Diastolic blood pressure 58 mm[Hg] [facility] GHOTRA Work Phone: [facility] 07-27-2024 08:56-0500 Systolic blood pressure 120 mm[Hg] [facility]RA Work Phone: [facility] 07-12-2024 10:24-0500 Body mass index (BMI) [Ratio] 39.58 kg/m2 Donovan Vielka DO Work Phone: [facility] 07-12-2024 10:24-0500 Body weight 98.16 kg Donovan Vielka DO Work Phone: [facility] 07-12-2024 10:24-0500 Diastolic blood pressure 60 mm[Hg] Donovan Vielka DO Work Phone: [facility] 07-12-2024 10:24-0500 Systolic blood pressure 114 mm[Hg] Donovan Vielka DO Work Phone: [facility] 06-09-2024 09:14-0500 Body mass index (BMI) [Ratio] 39.76 kg/m2 Donovan Vielka DO Work Phone: [facility] 06-09-2024 09:14-0500 Body weight 98.61 kg Donovan Vielka DO Work Phone: [facility] 06-09-2024 09:14-0500 Diastolic blood pressure 72 mm[Hg] Donovan Vielka DO Work Phone: [facility] 06-09-2024 09:14-0500 Systolic blood pressure 112 mm[Hg] Donovan Vielka DO Work Phone: [facility] 05-10-2024 10:05-0500 Body mass index (BMI) [Ratio] 39.51 kg/m2 [facility]OTRA Work Phone: [facility] 05-10-2024 10:05-0500 Body weight 97.98 kg [facility] GHOTRA Work Phone: [facility] 05-10-2024 10:05-0500 Diastolic blood pressure 72 mm[Hg] [facility] GHOTRA Work Phone: [facility] 05-10-2024 10:05-0500 Systolic blood pressure 120 mm[Hg] [facility]OTRA Work Phone: [facility] 04-25-2024 09:02-0500 Body mass index (BMI) [Ratio] 39.32 kg/m2 Peng Olivares PROPAGATION MANAGER Work Phone: [facility] 04-25-2024 09:02-0500 Body temperature 97.5 [degF] Peng Olivares PROPAGATION MANAGER Work Phone: [facility] 04-25-2024 09:02-0500 Body weight 97.52 kg Peng Olivares PROPAGATION MANAGER Work Phone: [facility] 04-25-2024 09:02-0500 Diastolic blood pressure 74 mm[Hg] Peng Olivares PROPAGATION MANAGER Work Phone: [facility] 04-25-2024 09:02-0500 Heart rate 93 /min Peng Olivares PROPAGATION MANAGER Work Phone: [facility] 04-25-2024 09:02-0500 SaO2% (BldA) [Mass fraction] 98 % Peng Olivares PROPAGATION MANAGER Work Phone: [facility] 04-25-2024 09:02-0500 Systolic blood pressure 118 mm[Hg] Peng Olivares PROPAGATION MANAGER Work Phone: [facility] 04-11-2024 10:26-0500 Body mass index (BMI) [Ratio] 39.43 kg/m2 Donovan Vielka DO Work Phone: [facility] 04-11-2024 10:26-0500 Body weight 97.79 kg Donovan Vielka DO Work Phone: [facility] 04-11-2024 10:26-0500 Diastolic blood pressure 70 mm[Hg] Donovan Vielka DO Work Phone: [facility] 04-11-2024 10:26-0500 Systolic blood pressure 124 mm[Hg] Donovan Vielka DO Work Phone: [facility] 03-24-2024 18:54-0400 Body temperature 98.24 [degF] [facility] 03-24-2024 18:54-0400 Diastolic blood pressure 68 mm[Hg] [facility] 03-24-2024 18:54-0400 Heart rate 57 /min [facility] 03-24-2024 18:54-0400 Respiratory rate 16 /min [facility] 03-24-2024 18:54-0400 SaO2% (BldA) [Mass fraction] 100 % [facility] 03-24-2024 18:54-0400 Systolic blood pressure 128 mm[Hg] [facility] 03-10-2024 13:08-0400 Body mass index (BMI) [Ratio] 39.78 kg/m2 [facility] Nurse [facility] 03-10-2024 13:08-0400 Body weight 98.66 kg [facility] Nurse [facility] 03-10-2024 13:08-0400 Diastolic blood pressure 72 mm[Hg] [facility] Nurse [facility] 03-10-2024 13:08-0400 Systolic blood pressure 114 mm[Hg] [facility] Nurse [facility] 02-04-2024 13:34-0400 Body height 157.48 cm JUNIOR FINANCIAL ANALYST Georgie Fareed Work Phone: [facility] 02-04-2024 13:34-0400 Body mass index (BMI) [Ratio] 39.2 kg/m2 JUNIOR FINANCIAL ANALYST Georgie Fareed Work Phone: [facility] 02-04-2024 13:34-0400 Body temperature 98.1 [degF] JUNIOR FINANCIAL ANALYST Georgie Fareed Work Phone: [facility] 02-04-2024 13:34-0400 Body weight 97.18 kg JUNIOR FINANCIAL ANALYST Georgie Fareed Work Phone: [facility] 02-04-2024 13:34-0400 Diastolic blood pressure 77 mm[Hg] JUNIOR FINANCIAL ANALYST Georgie Fareed Work Phone: [facility] 02-04-2024 13:34-0400 Heart rate 77 /min JUNIOR FINANCIAL ANALYST Georgie Fareed Work Phone: [facility] 02-04-2024 13:34-0400 SaO2% (BldA) [Mass fraction] 98 % JUNIOR FINANCIAL ANALYSTFletcher Jacques Fareed Work Phone: [facility] 02-04-2024 13:34-0400 Systolic blood pressure 114 mm[Hg] JUNIOR FINANCIAL ANALYSTFletcher Jacques Fareed Work Phone: [facility] 01-15-2024 21:31-0400 Body temperature 99.14 [degF] Roman Yahaira [facility] 01-15-2024 21:31-0400 Diastolic blood pressure 86 mm[Hg] Roman Yahaira [facility] 01-15-2024 21:31-0400 Heart rate 66 /min Roman Yahaira [facility] 01-15-2024 21:31-0400 Respiratory rate 18 /min Roman Yahaira [facility] 01-15-2024 21:31-0400 SaO2% (BldA) [Mass fraction] 98 % Roman Yahaira [facility] 01-15-2024 21:31-0400 Systolic blood pressure 131 mm[Hg] Roman Yahaira [facility] 11-18-2023 09:57-0400 Body height 157.48 cm MD Jelly Chery Work Phone: [facility] 11-18-2023 09:57-0400 Body mass index (BMI) [Ratio] 38.5 kg/m2 MD Jelly Chery Work Phone: [facility] 11-18-2023 09:57-0400 Body temperature 97.5 [degF] MD Jelly Chery Work Phone: [facility] 11-18-2023 09:57-0400 Body weight 95.7 kg MD Jelly Chery Work Phone: [facility] 11-18-2023 09:57-0400 Diastolic blood pressure 72 mm[Hg] MD Jelly Chery Work Phone: [facility] 11-18-2023 09:57-0400 Heart rate 51 /min MD Jelly Chery Work Phone: [facility] 11-18-2023 09:57-0400 Respiratory rate 18 /min MD Jelly Chery Work Phone: [facility] 11-18-2023 09:57-0400 SaO2% (BldA) [Mass fraction] 98 % MD Jelly Chery Work Phone: [facility] 11-18-2023 09:57-0400 Systolic blood pressure 117 mm[Hg] MD Jelly Chery Work Phone: [facility] 10-30-2023 18:56-0400 Body height 157.48 cm MD Jelly Chery Work Phone: [facility] 10-30-2023 18:56-0400 Body mass index (BMI) [Ratio] 35 kg/m2 MD Jelly Chery Work Phone: [facility] 10-30-2023 18:56-0400 Body temperature 97.8 [degF] MD Jelly Chery Work Phone: [facility] 10-30-2023 18:56-0400 Body weight 87 kg MD Jelly Chery Work Phone: [facility] 10-30-2023 18:56-0400 Diastolic blood pressure 86 mm[Hg] MD Jelly Chery Work Phone: [facility] 10-30-2023 18:56-0400 Heart rate 103 /min MD Jelly Chery Work Phone: [facility] 10-30-2023 18:56-0400 Respiratory rate 16 /min MD Jelly Chery Work Phone: [facility] 10-30-2023 18:56-0400 SaO2% (BldA) [Mass fraction] 98 % MD Jelly Chery Work Phone: [facility] 10-30-2023 18:56-0400 Systolic blood pressure 125 mm[Hg] MD Jelly Chery Work Phone: [facility] 09-29-2023 10:46-0400 Body height 157.48 cm MD Jelly Chery Work Phone: [facility] 09-29-2023 10:46-0400 Body mass index (BMI) [Ratio] 35.1 kg/m2 MD Jelly Chery Work Phone: [facility] 09-29-2023 10:46-0400 Body temperature 97.7 [degF] MD Jelly Chery Work Phone: [facility] 09-29-2023 10:46-0400 Body weight 87.08 kg MD Jelly Chery Work Phone: [facility] 09-29-2023 10:46-0400 Diastolic blood pressure 78 mm[Hg] MD Jelly Chery Work Phone: [facility] 09-29-2023 10:46-0400 Heart rate 64 /min MD Jelly Chery Work Phone: [facility] 09-29-2023 10:46-0400 SaO2% (BldA) [Mass fraction] 98 % MD Jelly Chery Work Phone: [facility] 09-29-2023 10:46-0400 Systolic blood pressure 115 mm[Hg] MD Jelly Chery Work Phone: [facility] 09-07-2023 14:31-0400 Body height 157.48 cm MD Jelly Chery Work Phone: [facility] 09-07-2023 14:31-0400 Body mass index (BMI) [Ratio] 37.6 kg/m2 MD Jelly Chery Work Phone: [facility] 09-07-2023 14:31-0400 Body temperature 98.2 [degF] MD Jelly Chery Work Phone: [facility] 09-07-2023 14:31-0400 Body weight 93.44 kg MD Jelly Chery Work Phone: [facility] 09-07-2023 14:31-0400 Diastolic blood pressure 72 mm[Hg] MD Jelly Chery Work Phone: [facility] 09-07-2023 14:31-0400 Heart rate 57 /min MD Jelly Chery Work Phone: [facility] 09-07-2023 14:31-0400 Systolic blood pressure 116 mm[Hg] MD Jelly Chery Work Phone: [facility] 07-27-2023 14:08-0500 Body height 157.48 cm MD Jelly Chery Work Phone: [facility] 07-27-2023 14:08-0500 Body mass index (BMI) [Ratio] 37.6 kg/m2 MD Jelly Chery Work Phone: [facility] 07-27-2023 14:08-0500 Body temperature 98.2 [degF] MD Jelly Chery Work Phone: [facility] 07-27-2023 14:08-0500 Body weight 93.44 kg MD Jelly Chery Work Phone: [facility] 07-27-2023 14:08-0500 Diastolic blood pressure 80 mm[Hg] MD Jelly Chery Work Phone: [facility] 07-27-2023 14:08-0500 Heart rate 65 /min MD Jelly Chery Work Phone: [facility] 07-27-2023 14:08-0500 Systolic blood pressure 127 mm[Hg] MD Jelly Chery Work Phone: [facility] 07-05-2023 12:29-0500 Body temperature 96.49 [degF] Rad Sims DO Work Phone: [facility] 07-05-2023 12:29-0500 Heart rate 67 /min Rad Sims DO Work Phone: [facility] 07-05-2023 12:29-0500 SaO2% (BldA) [Mass fraction] 99 % Rad Sims DO Work Phone: [facility] 06-29-2023 16:07-0500 Body temperature 97.3 [degF] Miguel Malena PA-C Work Phone: [facility] 06-29-2023 16:07-0500 Diastolic blood pressure 67 mm[Hg] Miguel [place] PA-C Work Phone: [facility] 06-29-2023 16:07-0500 Heart rate 68 /min Miguel [place] PA-C Work Phone: [facility] 06-29-2023 16:07-0500 Systolic blood pressure 121 mm[Hg] Miguel Malena PA-C Work Phone: [facility] 01-11-2023 22:27-0400 Body height 157.48 cm MD Jelly Chery Work Phone: [facility] 01-11-2023 22:27-0400 Body temperature 98.5 [degF] MD Jelly Chery Work Phone: [facility] 01-11-2023 22:27-0400 Body weight 88.45 kg MD Jelly Chery Work Phone: [facility] 01-11-2023 22:27-0400 Diastolic blood pressure 85 mm[Hg] MD Jelly Chery Work Phone: [facility] 01-11-2023 22:27-0400 Heart rate 65 /min MD Jelly Chery Work Phone: [facility] 01-11-2023 22:27-0400 Respiratory rate 18 /min MD Jelly Chery Work Phone: [facility] 01-11-2023 22:27-0400 SaO2% (BldA) [Mass fraction] 100 % MD Jelly Chery Work Phone: [facility] 01-11-2023 22:27-0400 Systolic blood pressure 144 mm[Hg] MD Jelly Chery Work Phone: [facility] 10-17-2022 18:45-0400 Body height 154.94 cm Nasreen Delaney Other [email or web address] Other 10-17-2022 18:45-0400 Body mass index (BMI) [Ratio] 35.59 kg/m2 Nasreen Delaney Other [email or web address] Other 10-17-2022 18:45-0400 Body temperature 98.2 [degF] Nasreen Delaney Other [email or web address] Other 10-17-2022 18:45-0400 Body weight 85.46 kg Nasreen Delaney Other [email or web address] Other 10-17-2022 18:45-0400 Respiratory rate 18 /min Nasreen Delaney Other [email or web address] Other 10-17-2022 18:45-0400 SaO2% (BldA) [Mass fraction] 98 % Nasreen Delaney Other [email or web address] Other 07-20-2022 14:00-0500 Diastolic blood pressure 66 mm[Hg] Roman Yahaira [facility] 07-20-2022 14:00-0500 Heart rate 79 /min Roman Yahaira [facility] 07-20-2022 14:00-0500 Hourly Rounding Roman Yahaira [facility] 07-20-2022 14:00-0500 Mean blood pressure 81 mm[Hg] Roman Yahaira [facility] 07-20-2022 14:00-0500 Promise to Return Roman Yahaira [facility] 07-20-2022 14:00-0500 SaO2% (BldA) [Mass fraction] 97 % Roman Yahaira [facility] 07-20-2022 14:00-0500 Systolic blood pressure 110 mm[Hg] Roman Yahaira [facility] 07-20-2022 01:00-0500 Diastolic blood pressure 72 mm[Hg] Roman Yahaira [facility] 07-20-2022 01:00-0500 Heart rate 81 /min Roman Yahaira [facility] 07-20-2022 01:00-0500 Hourly Rounding Roman Yahaira [facility] 07-20-2022 01:00-0500 Mean blood pressure 89 mm[Hg] Roman Yahaira [facility] 07-20-2022 01:00-0500 Promise to Return Roman Yahaira [facility] 07-20-2022 01:00-0500 SaO2% (BldA) [Mass fraction] 99 % Roman Yahaira [facility] 07-20-2022 01:00-0500 Systolic blood pressure 122 mm[Hg] Roman Yahaira [facility] 07-20-2022 00:00-0500 Heart rate 83 /min Roman Yahaira [facility] 07-20-2022 00:00-0500 Hourly Rounding Roman Yahaira [facility] 07-20-2022 00:00-0500 Mean blood pressure 84 mm[Hg] Roman Yahaira [facility] 07-20-2022 00:00-0500 Promise to Return Roman Syed [facility] 07-20-2022 00:00-0500 SaO2% (BldA) [Mass fraction] 96 % Roman Syed [facility] 07-20-2022 00:00-0500 Systolic blood pressure 107 mm[Hg] Roman Syed [facility] 07-19-2022 21:47-0500 Body temperature 98.6 [degF] Roman Syed [facility] 07-19-2022 21:47-0500 Heart rate 113 /min Roman Syed [facility] 07-19-2022 21:47-0500 Respiratory rate 16 /min Roman Syed [facility] 07-08-2022 22:00-0500 Diastolic blood pressure 68 mm[Hg] Rj Pink [facility] 07-08-2022 22:00-0500 Respiratory rate 17 /min Rj Pink [facility] 07-08-2022 22:00-0500 SaO2% (BldA) [Mass fraction] 95 % Rj Joesph [facility] 07-08-2022 22:00-0500 Systolic blood pressure 110 mm[Hg] Rj Joesph [facility] 07-08-2022 21:43-0500 Body temperature 98.6 [degF] Rj Joesph [facility] 07-08-2022 21:43-0500 Diastolic blood pressure 69 mm[Hg] Rj Joesph [facility] 07-08-2022 21:43-0500 Heart rate 94 /min Rj Joesph [facility] 07-08-2022 21:43-0500 Mean blood pressure 82 mm[Hg] Rj Joesph [facility] 07-08-2022 21:43-0500 Systolic blood pressure 108 mm[Hg] Rj Joesph [facility] 07-08-2022 21:00-0500 SaO2% (BldA) [Mass fraction] 93 % Rj Joesph [facility] 07-08-2022 20:00-0500 Body temperature 99.5 [degF] Rj Joesph [facility] 07-08-2022 20:00-0500 Diastolic blood pressure 58 mm[Hg] Rj Joesph [facility] 07-08-2022 20:00-0500 Heart rate 110 /min Rj Joesph [facility] 07-08-2022 20:00-0500 Mean blood pressure 74 mm[Hg] Rj Joesph [facility] 07-08-2022 20:00-0500 SaO2% (BldA) [Mass fraction] 99 % Rj Joesph [facility] 07-08-2022 20:00-0500 Systolic blood pressure 105 mm[Hg] Rj Joesph [facility] 07-08-2022 17:47-0500 Heart rate 121 /min Rj Joesph [facility] 06-23-2022 18:00-0500 Body height 154.94 cm Asim Palma Other [employer] Other 06-23-2022 18:00-0500 Body mass index (BMI) [Ratio] 34.01 kg/m2 Asim Palma Other [email or web address] Other 06-23-2022 18:00-0500 Body temperature 97.8 [degF] Asim Palma Other [email or web address] Other 06-23-2022 18:00-0500 Body weight 81.65 kg Asim Palma Other [email or web address] Other 06-23-2022 18:00-0500 Respiratory rate 18 /min Asim Palma Other [email or web address] Other 06-23-2022 18:00-0500 SaO2% (BldA) [Mass fraction] 98 % Asim Palma Other [email or web address] Other 06-18-2022 18:30-0500 Body height 154.94 cm Belia Aguero Other [email or web address] Other 06-18-2022 18:30-0500 Body mass index (BMI) [Ratio] 34.01 kg/m2 Beila Aguero Other [email or web address] Other 06-18-2022 18:30-0500 Body temperature 98 [degF] Belia Aguero Other [email or web address] Other 06-18-2022 18:30-0500 Body weight 81.65 kg Belia Aguero Other [email or web address] Other 06-18-2022 18:30-0500 Respiratory rate 18 /min Belia Aguero Other [email or web address] Other 06-18-2022 18:30-0500 SaO2% (BldA) [Mass fraction] 98 % Belia Aguero Other [email or web address] Other 04-16-2022 18:15-0500 Body height 154.94 cm Belia Aguero Other [email or web address] Other 04-16-2022 18:15-0500 Body mass index (BMI) [Ratio] 34.01 kg/m2 Belia Aguero Other [email or web address] Other 04-16-2022 18:15-0500 Body temperature 98.1 [degF] Belia Aguero Other [email or web address] Other 04-16-2022 18:15-0500 Body weight 81.65 kg Belia Aguero Other [email or web address] Other 04-16-2022 18:15-0500 Respiratory rate 18 /min Belia Aguero Other [email or web address] Other 04-16-2022 18:15-0500 SaO2% (BldA) [Mass fraction] 99 % Belia Aguero Other [email or web address] Other 03-21-2022 18:00-0400 Body height 154.94 cm Belia Vázquez Other [email or web address] Other 03-21-2022 18:00-0400 Body mass index (BMI) [Ratio] 34.01 kg/m2 Belia Vázquez Other [email or web address] Other 03-21-2022 18:00-0400 Body temperature 98.3 [degF] Belia Vázquez Other [email or web address] Other 03-21-2022 18:00-0400 Body weight 81.65 kg Belia Vázquez Other [email or web address] Other 03-21-2022 18:00-0400 Diastolic blood pressure 79 mm[Hg] Belia Vázquez Other [email or web address] Other 03-21-2022 18:00-0400 Respiratory rate 18 /min Belia Vázquez Other [email or web address] Other 03-21-2022 18:00-0400 SaO2% (BldA) [Mass fraction] 100 % Belia Vázquez Other [email or web address] Other 03-21-2022 18:00-0400 Systolic blood pressure 123 mm[Hg] Belia Vázquez Other [email or web address] Other 07-20-2021 13:15-0500 Body height 154.94 cm Asim Palma Other [email or web address] Other 07-20-2021 13:15-0500 Body mass index (BMI) [Ratio] 34.01 kg/m2 Asim Palma Other [email or web address] Other 07-20-2021 13:15-0500 Body temperature 98.4 [degF] Asim Palma Other [email or web address] Other 07-20-2021 13:15-0500 Body weight 81.65 kg Asim Palma Other [email or web address] Other 07-20-2021 13:15-0500 Diastolic blood pressure 66 mm[Hg] Asim Palma Other [email or web address] Other 07-20-2021 13:15-0500 Respiratory rate 18 /min Asim Palma Other [email or web address] Other 07-20-2021 13:15-0500 SaO2% (BldA) [Mass fraction] 97 % Asim Palma Other [email or web address] Other 07-20-2021 13:15-0500 Systolic blood pressure 102 mm[Hg] Asim Palma Other [email or web address] Other 12-07-2020 19:25-0400 Body height 157.5 cm Simone Manley MD Work Phone: [employer] Work Phone: 12-07-2020 19:25-0400 Body mass index (BMI) [Ratio] 39.51 kg/m2 Simone Manley MD Work Phone: [employer] Work Phone: 12-07-2020 19:25-0400 Body temperature 98.91 [degF] Simone Manley MD Work Phone: [employer] Work Phone: 12-07-2020 19:25-0400 Body weight 97.98 kg Simone Manley MD Work Phone: [employer] Work Phone: 12-07-2020 19:25-0400 Diastolic blood pressure 81 mm[Hg] Simone Manley MD Work Phone: [employer] Work Phone: 12-07-2020 19:25-0400 Heart rate 71 /min Simone Manley MD Work Phone: [employer] Work Phone: 12-07-2020 19:25-0400 Respiratory rate 22 /min Simone Manley MD Work Phone: [employer] Work Phone: 12-07-2020 19:25-0400 SaO2% (BldA) [Mass fraction] 99 % Simone Manley MD Work Phone: [employer] Work Phone: 12-07-2020 19:25-0400 Systolic blood pressure 128 mm[Hg] Simone Manley MD Work Phone: [employer] Work Phone: Encounters Encounter Date Encounter Type Care Provider Facility Start: 07-27-2024 End: 07-27-2024 Bamboo flowsheet America GHOTRA Work Phone: [facility] Start: 07-27-2024 End: 07-27-2024 Bamboo flowsheet America GHOTRA Work Phone: [facility] Start: 07-27-2024 End: 07-27-2024 Office outpatient visit 15 minutes America GHOTRA Work Phone: [facility] Comment on above: Third trimester preg debra; 28 weeks gestation of ; size inconsistent with dates Start: 07-27-2024 End: 07-27-2024 ambulatory AMERICA THOMPSON Not Available Start: 07-23-2024 End: 07-23-2024 Clinisync Result Encounter Donovan Vileka DO Work Phone: [facility] Unsolicited Start: 07-23-2024 End: 07-23-2024 Clinisync Result Encounter Donovan Vielka DO Work Phone: [facility] Unsolicited Start: 07-12-2024 End: 07-12-2024 Office outpatient visit 15 minutes Donovan Vielka DO Work Phone: [facility] Comment on above: Second trimester pre gnancy; 26 weeks gestation of Start: 07-12-2024 End: 07-12-2024 ambulatory DONOVAN VIELKA Not Available Start: 07-04-2024 End: 07-04-2024 Clinisync [...] 06-17-2024 Emergency department patient visit Chichi Roy [place] Start: 06-14-2024 End: 06-14-2024 ambulatory DONOVAN VIELKA Not Available Start: 06-09-2024 End: 06-09-2024 Bamboo flowsheet Donovan Vielka DO Work Phone: [facility] Start: 06-09-2024 End: 06-09-2024 Bamboo flowsheet Donovan Vielka DO Work Phone: [facility] Start: 06-09-2024 End: 06-09-2024 flow sheet Doonvan Vielka DO Work Phone: [facility] [...] Office outpatient visit 25 minutes Peng Olivares PROPAGATION MANAGER Work Phone: [facility] Comment on [...] 03-28-2024 End: 03-28-2024 Telephone encounter Peng Olivares PROPAGATION MANAGER Work Phone: [facility] Start: 03-24-2024 End: 03-24-2024 Emergency department patient visit Chichi Peng [facility] Start: 03-15-2024 End: 03-15-2024 ambulatory DONOVAN VIELKA Not Available Start: 03-10-2024 End: 03-10-2024 Office outpatient visit 5 minutes [facility] Vielka Nurse [facility] Comment on above: GA: 8w5d Start: 03-10-2024 End: 03-10-2024 ambulatory DONOVAN VIELKA Not Available Start: 02-11-2024 End: 02-17-2024 Orders Only Peng Olivares PROPAGATION MANAGER Work Phone: [facility] Unsolicited Start: 02-11-2024 End: 02-11-2024 Telephone encounter Pegn Olivares PROPAGATION MANAGER Work Phone: [facility] Start: 02-04-2024 End: 02-04-2024 ambulatory JUNIOR FINANCIAL ANALYST Georgie Fareed Work Phone: [facility] Work Phone: Start: 02-04-2024 End: 02-04-2024 Patient encounter procedure JUNIOR FINANCIAL ANALYST Georgie Fareed Work Phone: [facility] Work Phone: Start: 01-15-2024 End: 01-15-2024 Emergency department patient visit Roman Syed [facility] Start: 01-11-2024 End: 01-14-2024 Orders Only Matti Sims DO Work Phone: [facility] Unsolicited Start: 01-11-2024 End: 01-11-2024 ambulatory MATTI SIMS Not Available Start: 01-03-2024 End: 01-03-2024 Emergency department patient visit JELLY CHERY [facility] Start: 11-24-2023 End: 11-24-2023 ambulatory MD Jelly Chery Work Phone: [facility] Work Phone: Start: 11-24-2023 End: 11-24-2023 Patient encounter procedure MD Jelly Chery Work Phone: [facility] [place] [facility] Work Phone: Start: 11-18-2023 End: 11-18-2023 Departed Referred MD Jelly Chery Work Phone: [facility] [place] Work Phone: Start: 11-18-2023 End: 11-18-2023 ambulatory MD Jelly Chery Work Phone: [facility] Work Phone: Start: 11-18-2023 End: 11-18-2023 Patient encounter procedure MD Jelly Chery Work Phone: [facility] Work Phone: Start: 10-30-2023 End: 10-30-2023 ambulatory MD Jelly Chery Work Phone: [facility] Work Phone: Start: 10-30-2023 End: 10-30-2023 Patient encounter procedure MD Jelly Chery Work Phone: [facility] Work Phone: Start: 10-20-2023 End: 10-20-2023 ambulatory JELLY CHERY Not Available Start: 10-13-2023 End: 10-13-2023 ambulatory MD Jelly Chery Work Phone: [facility] Work Phone: Start: 10-13-2023 End: 10-13-2023 Patient encounter procedure MD Jelly Chery Work Phone: [facility] Work Phone: Start: 10-01-2023 End: 10-01-2023 ambulatory PENG OLIVARES Not Available Start: 09-29-2023 End: 09-29-2023 ambulatory MD Jelly Chery Work Phone: [facility] Work Phone: Start: 09-29-2023 End: 09-29-2023 Patient encounter procedure MD Jelly Chery Work Phone: [facility] [place] Work Phone: Start: 09-07-2023 End: 09-07-2023 ambulatory MD Jelly Chery Work Phone: [facility] Work Phone: Start: 09-07-2023 End: 09-07-2023 Patient encounter procedure MD Jelly Chery Work Phone: [facility] Work Phone: Start: 07-27-2023 End: 07-27-2023 ambulatory Simone Bahena Facility:[facility] Start: 07-27-2023 End: 07-27-2023 Patient encounter procedure MD Jelly Chery Work Phone: [facility] Work Phone: Start: 07-05-2023 End: 07-05-2023 Office outpatient visit 25 minutes Rad Sims DO Work Phone: [facility] Comment on above: Recurrent acute supp urative otitis media without spontaneous rupture of tympanic membrane of both sides (Primary Dx); Pharyngitis, unspecified etiology Start: 06-29-2023 End: 06-30-2023 ambulatory MIGUEL ANG Facility:[facility] Start: 06-29-2023 End: 06-29-2023 Subsequent hospital visit by physician [facility] Comment on above: Right hand pain [M79 .641] Start: 06-29-2023 End: 06-29-2023 Patient encounter procedure Miguel [place] PA-C Work Phone: Plastic Surgery Comment on above: Right hand pain (Jazzmine rena Dx) Start: 04-03-2023 End: 04-03-2023 Patient encounter procedure MD Jelly Chery Work Phone: [facility] Start: 04-03-2023 End: 04-03-2023 ambulatory MD Jelly Chery Work Phone: [facility] Work Phone: Start: 02-24-2023 End: 02-25-2023 ambulatory MARISA SMALLWOOD [facility] Start: 02-17-2023 ambulatory JAISON Azucena PETIT [facility] Start: 01-11-2023 End: 01-11-2023 Emergency department patient visit MD Jelly Chery Work Phone: [facility] Work Phone: Start: 10-17-2022 End: 10-17-2022 ambulatory Nasreen Delaney Other [email or web address] Other Start: 10-17-2022 Office outpatient vi sit 15 minutes Nasreen Delaney [facility] Start: 07-19-2022 End: 07-20-2022 Emergency department patient visit Roman Syed [facility] Start: 07-08-2022 End: 07-08-2022 Emergency department patient visit Rj Pink [facility] Start: 06-23-2022 End: 06-23-2022 ambulatory Asim [place] Other [email or web address] Other Start: 06-23-2022 Office outpatient vi sit 15 minutes Asim Palma [facility] Start: 06-18-2022 End: 06-18-2022 ambulatory Belia Aguero Other [email or web address] Other Start: 06-18-2022 Office outpatient vi sit 15 minutes Belia Aguero [facility] Start: 05-23-2022 End: 05-23-2022 ambulatory Asim [place] Other [email or web address] Other Start: 05-23-2022 Telephone encounter Asim [facility] Start: 04-16-2022 End: 04-16-2022 ambulatory Belia Aguero Other [email or web address] Other Start: 04-16-2022 Office outpatient vi sit 15 minutes Belia Aguero [facility] Start: 03-21-2022 End: 03-22-[address] HAWA WHELAN [email or web address] Other Start: 03-21-2022 Office outpatient vi sit 15 minutes Belia Vázquez [facility] Start: 11-17-2021 End: 11-17-[address] JULY QUEVEDO Facility:[facility] Start: 07-20-2021 End: 07-20-2021 ambulatory Asim Palma Other [email or web address] Other Start: 07-20-2021 Office outpatient vi sit 25 minutes Asim Palma [facility] Start: 03-29-2021 End: 03-30-2021 ambulatory CONCHITA TANESHA MEANS Facility:[facility] Start: 12-07-2020 End: 12-08-2020 Emergency department patient visit SIMONE MANLEY [facility] Start: 12-07-2020 End: 12-08-2020 Emergency department patient visit Simone Manley MD Work Phone: [facility] ED Comment on above: Trigger point with b ack pain (Primary Dx); Hepatic steatosis Procedures Date Procedure Procedure Detail Performing Clinician Start: 07-27-2024 Urnls dip stick/tablet rgnt non-auto w/o micrscp America GHOTRA Work Phone: Start: 07-23-2024 US OB INCOMPLETE ANATOMY Donovan Vielka DO Work Phone: Start: 07-12-2024 Urnls dip stick/tablet rgnt non-auto [...] dip stick/tablet rgnt non-auto w/o micrscp Donovan Vora DO Work Phone: Start: 02-11-2024 Gonadotropin chorionic quantitative Peng Olivares PROPAGATION MANAGER Work Phone: Start: 01-11-2024 Cytp cerv/vag auto thin layer prep mnl screen Matti Sims DO Work Phone: Start: 11-18-2023 Urine culture MD Jelly Chery Work Phone: Start: 09-29-2023 Plain X-ray of right hand MD Jelly Chery Work Phone: Start: 07-05-2023 End: 07-05-2023 Infectious agent dna/rna influenza 1st 2 types Darell Caitlin Jama DO Work Phone: Start: 06-29-2023 Radex [...] DTaP/Tdap/Td vaccine (9 - Td or Tdap) [employer] Work Phone: Start: 11-10-2029 Urine microalbumin profile DTaP,Tdap,Td Vaccine (9 - Td or Tdap) [facility] Start: 01-11-2025 End: 01-11-2025 Patient encounter procedure 01/11/2025 10:45 AM EDT Office Visit [facility] [address] [place] [id number] Matti Sims, DO [address] [place] [address] [facility] Start: 10-18-2024 End: 10-18-2024 Patient encounter procedure 10/18/2024 8:15 AM EDT Office Visit [facility] [address] [place] [id number] Jelly Chery MD [address] [place] [address] [facility] Start: 08-09-2024 End: 08-09-2024 Patient encounter procedure 08/09/2024 9:40 AM EDT Routine [facility] [address] [phone] Donovan Vora, DO [address] [place] [address] [facility] Start: 08-09-2024 End: 08-09-2024 Professional / ancillary services management 08/09/2024 9:00 AM EDT Ancillary Procedure [facility] [address] [place] [address] [facility] Start: 07-27-2024 End: 07-27-2025 US for US OB follow up transabdominal approach Imaging Routine size inconsistent with dates Expected: 07/27/2024, Expires: 07/27/2025 [facility] Work Phone: Comment on above: Expected: 07/27/2024 , Expires: 07/27/2025 Start: 07-27-2024 End: 07-27-2024 Patient encounter procedure [facility] Comment on above: Arrived Start: 07-07-2024 End: 07-07-2024 Patient encounter procedure 07/07/2024 9:10 AM EST Routine [facility] [address] [place] [address] Donovan Vora, DO [address] [facility] [address] [place], [place] [id number] [facility] Start: 06-09-2024 End: 06-09-2025 CBC panel - Blood by Automated count CBC Lab Routine Diabetes mellitus screening Expected: 06/09/2024 (Approximate), Expires: 06/09/2025 [facility] Work Phone: Comment on above: Expected: 06/09/2024 (Approximate), Expires: 06/09/2025 Start: 06-09-2024 End: 06-09-2025 Measurement of glucose 1 hour after glucose challenge for glucose tolerance test Glucose tolerance, 1 hour Lab Routine Diabetes mellitus screening Expected: 06/09/2024 (Approximate), Expires: 06/09/2025 [facility] Comment on above: Expected: 06/09/2024 (Approximate), Expires: 06/09/2025 Start: 06-09-2024 End: 06-09-2024 Patient encounter procedure [facility] Comment on above: Arrived Start: 05-31-2024 End: 05-31-2024 Professional / ancillary services management 05/31/2024 10:00 AM EST Ancillary Procedure [facility] [address] [place] [address] [facility] Start: 05-10-2024 End: 06-10-2024 Alpha fetoprotein, maternal Alpha fetoprotein, maternal Lab Routine Need for maternal serum alpha-protein (MSAFP) screening Expected: 05/10/2024 (Approximate), Expires: 06/10/2024 [facility] Comment on above: Expected: 05/10/2024 (Approximate), Expires: 06/10/2024 Start: 05-10-2024 End: 05-10-2025 US for US OB ANATOMY SINGLE W US OB CERVICAL LENGTH Imaging Routine Screening, , for anatomic survey Expected: 05/10/2024 (Approximate), Expires: 05/10/2025 [facility] Comment on above: Expected: 05/10/2024 (Approximate), Expires: 05/10/2025 Start: 05-10-2024 End: 05-10-2024 Patient encounter procedure 05/10/2024 9:40 AM EST Routine [facility] [address] [facility] [address] [id number] America Thompson PA [address] [facility] [address] [place], [place] [id number] [facility] Start: 04-11-2024 End: 04-11-2024 Patient encounter procedure 04/11/2024 9:50 AM EST Routine [facility] [address] [facility] [phone] Donovan Vora DO [address] [facility] [address] [place], [place] [id number] [facility] Start: 03-28-2024 End: 03-28-2025 XR Radius and Ulna - right 2 Views XR forearm 2 views right Imaging STAT Injury of right wrist, initial encounter Right forearm pain Expected: 03/28/2024, Expires: 03/28/2025 [facility] Comment on above: Expected: 03/28/2024 , Expires: 03/28/2025 Start: 03-28-2024 End: 03-28-2025 XR Wrist - right 3 Views XR wrist 3+ views right Imaging STAT Injury of right wrist, initial encounter Right wrist pain Expected: 03/28/2024, Expires: 03/28/2025 [facility] Work Phone: Comment on above: Expected: 03/28/2024 , Expires: 03/28/2025 Start: 03-10-2024 End: 03-10-2025 ABO/Rh ABO/Rh Lab Routine Missed menses , unspecified gestational age Expected: 03/10/2024 (Approximate), Expires: 03/10/2025 [facility] Comment on above: Expected: 03/10/2024 (Approximate), Expires: 03/10/2025 Start: 03-10-2024 End: 03-10-2025 Blood type and Indirect antibody screen panel - Blood Type and screen Lab Routine Missed menses , unspecified gestational age Expected: 03/10/2024 (Approximate), Expires: 03/10/2025 [facility] Work Phone: Comment on above: Expected: 03/10/2024 (Approximate), Expires: 03/10/2025 Start: 03-10-2024 End: 03-10-2025 Drugs of abuse panel - Urine by Screen method Rapid drug screen, urine Lab Routine , unspecified gestational age Encounter for supervision of normal first in first trimester Expected: 03/10/2024 (Approximate), Expires: 03/10/2025 [facility] Comment on above: Expected: 03/10/2024 (Approximate), Expires: 03/10/2025 Start: 03-10-2024 End: 03-10-2025 US Pelvis transvaginal US OB transvaginal Imaging Routine Missed menses Expected: 03/10/2024 (Approximate), Expires: 03/10/2025 [facility] Comment on above: Expected: 03/10/2024 (Approximate), Expires: 03/10/2025 Start: 03-10-2024 End: 03-10-2024 ambulatory 03/10/2024 1:00 PM EDT Initial [facility] [address] [place] [address] [facility] Start: 03-10-2024 End: 03-10-2024 Professional / ancillary services management 03/10/2024 12:30 PM EDT Ancillary Procedure [facility] [address] [place] [phone] [facility] Start: 02-11-2024 End: 02-10-2025 HCG,QUALITATIVE RFX TO QUANT ([facility]) HCG,QUALITATIVE RFX TO QUANT ([facility]) Lab Routine Positive urine test Expected: 02/11/2024 (Approximate), Expires: 02/10/2025 [facility] Work Phone: Comment on above: Expected: 02/11/2024 (Approximate), Expires: 02/10/2025 Start: 01-24-2024 Influenza vaccination Influenza Vacc ine (#1) [facility] Start: 01-11-2024 End: 01-11-2024 Patient encounter procedure 01/11/2024 11:00 AM EDT Office Visit [facility] [address] [place] [phone] Matti Sims DO [address] [place] [address] [facility] Start: 11-18-2023 Bacteria identified in Urine by Culture [facility] Start: 11-18-2023 [facility] Start: 10-20-2023 End: 10-20-2023 Patient encounter procedure 10/20/2023 8:15 AM EDT Office Visit [facility] [address] [place] [phone] Jelly Chery MD [address] [place] [address] [facility] Start: 09-29-2023 Plain X-ray of right hand XR hand RT min 3V* [facility] Start: 09-29-2023 XR Hand - right GE 3 Views [facility] Start: 05-25-2023 Depression Assessment Depression Ass essment [facility] Start: 01-23-2023 Covid-19 Vaccine ( season) Covid-19 Vaccine ( season) [facility] Start: 01-23-2023 Influenza vaccination Influenza Vacc ine (#1) [facility] Start: 01-23-2021 Influenza vaccination Flu vaccine (# 1) [employer] Work Phone: Start: 2018 Screening for malign ant neoplasm of cervix [facility] Start: 2015 Hepatitis C screening Hepatitis C Ct wilmer [facility] Start: 2015 HIV screening HIV Screening [facility] Start: 2013 Screening for Chlamy pam trachomatis Chlamydia screen [facility] Phone: Start: 02-19-2012 HIV screening HIV screen [facility] Work Phone: Start: 2011 Peds To Adult Transition Annual Assessment Peds To Adult Transition Annual Assessment [facility] Start: 2009 Peds To Adult Transition Initial Discussion Peds To Adult Transition Initial Discussion [facility] Start: 2003 Pneumococcal vaccination Pneumococcal Vaccine (1 of 2 - PCV) [facility] Start: 1998 Varicella vaccine (1 of 2 - 2-dose childhood series) Varicella vaccine (1 of 2 - 2-dose childhood series) [facility] [employer] Phone: Start: 1997 Hepatitis C screening Hepatitis C rafael zelaya [facility] [employer] Phone: Atopobium vaginae DN A [Presence] in Vaginal fluid by CRYSTAL with probe detection [facility] Bacteria identified in Urine by Culture Urine culture Microbiology Routine Missed menses Ordered: 03/10/2024 [facility] Comment on above: Ordered: 03/10/2024 Bacterial vaginosis associated bacterium 2 DNA [Presence] in Vaginal fluid by CRYSTAL with probe detection [facility] CBC W Auto Different ial panel - Blood CBC and differential Lab Routine Missed menses , unspecified gestational age Ordered: 03/10/2024 [facility] Comment on above: Ordered: 03/10/2024 CHLAMYDIA TRACHOMATI S (GENITO/STI) CHLAMYDIA TRACHOMATIS (GENITO/STI) Lab Routine Exposure to STD Ordered: 05/10/2024 [facility] Comment on above: Ordered: 05/10/2024 Hemoglobin A1c/Hemoglobin.total in Blood Hemoglobin A1c Lab Routine Missed menses , unspecified gestational age Ordered: 03/10/2024 [facility] Comment on above: Ordered: 03/10/2024 Hepatitis B virus surface Ag [Presence] in Serum or Plasma by Immunoassay Hepatitis B surface antigen Lab Routine Missed menses , unspecified gestational age Ordered: 03/10/2024 [facility] Comment on above: Ordered: 03/10/2024 Hepatitis C virus Ab [Presence] in Serum or Plasma by Immunoassay Hepatitis C antibody Lab Routine Missed menses , unspecified gestational age Ordered: 03/10/2024 [facility] Comment on above: Ordered: 03/10/2024 HIV-1/HIV-2 antigen/antibody combination immunoassay HIV-1 and HIV-2 antibodies Lab Routine Missed menses , unspecified gestational age Ordered: 03/10/2024 [facility] Comment on above: Ordered: 03/10/2024 Megasphaera sp type 1 DNA [Presence] in Vaginal fluid by CRYSTAL with probe detection [facility] Neisseria gonorrhoea e DNA [Presence] in Unspecified specimen by CRSYTAL with probe detection Neisseria gonorrhea DNA probe, direct Lab Routine Exposure to STD Ordered: 05/10/2024 [facility] Comment on above: Ordered: 05/10/2024 Patient Education Outer Ear Infection ED [facility] Work Phone: [facility] Work Phone: Reagin Ab [Presence] in Serum by RPR RPR Lab Routine Missed menses , unspecified gestational age Ordered: 03/10/2024 [facility] Comment on above: Ordered: 03/10/2024 Rubella antibody, IgG Rubella an tibody, IgG Lab Routine Missed menses , unspecified gestational age Ordered: 03/10/2024 [facility] Comment on above: Ordered: 03/10/2024 SURESWAB(R) ADVANCED VAGINITIS PLUS, TMA SURESWAB(R) ADVANCED VAGINITIS PLUS, TMA Pathology and Cytology Routine Exposure to STD Ordered: 05/10/2024 [facility] Work Phone: Comment on above: Ordered: 05/10/2024 End: 06-29-2024 XR HAND GENERAL 3V PA/LAT/OBL RIGHT XR HAND GENERAL 3V PA/LAT/OBL RIGHT Radiology Routine Right hand pain Once per week for 10 Occurrences starting 06/29/2023 until 06/29/2024, 1 completed [facility] Work Phone: Comment on above: Once per week for 10 Occurrences starting 06/29/2023 until 06/29/2024, 1 completed Immunizations Immunization Date Immunization Notes Care Provider Reynaldo miller 03-15-2024 Influenza, injectabl e, Madin Spl[place] Canine Kidney, preservative free, quadrivalent Generic Provider [facility] 02-24-2022 Influenza, injectabl e, Madin Anali Canine Kidney, preservative free, quadrivalent Rad Sims DO Work Phone: [facility] 02-24-2022 influenza virus vacc ine, unspecified formulation Xr A21 [facility] 02-22-2021 influenza, injectabl e, quadrivalent, contains preservative Rad Sims DO Work Phone: [facility] 09-04-2020 COVID-19 mRNAEvelyn (Pfizer) MD Jelly Chery Work Phone: [facility] 08-14-2020 COVID-19 mRNAEvelyn (Pfizer) MD Jelly Chery Work Phone: [facility] 11-11-2019 tetanus toxoid, redu maryanne diphtheria toxoid, and acellular pertussis vaccine, adsorbed MD Jelly Chery Work Phone: [facility] 05-12-2017 tetanus toxoid, redu maryanne diphtheria toxoid, and acellular pertussis vaccine, adsorbed Rj Pink [facility] 12-19-2016 hepatitis A vaccine, adult dosage Rad Sims DO Work Phone: [facility] 12-19-2016 Human Papillomavirus 9-valent vaccine Rad Sims DO Work Phone: [facility] 12-19-2016 meningococcal B vacc ine, recombinant, OMV, adjuvanted Rad Sims DO Work Phone: [facility] 08-22-2016 Human Papillomavirus 9-valent vaccine Rad Sims DO Work Phone: [facility] 08-22-2016 meningococcal B vacc ine, recombinant, OMV, adjuvanted Rad Sims DO Work Phone: [facility] 08-22-2016 meningococcal polysaccharide (groups A, C, Y and W-135) diphtheria toxoid conjugate vaccine (MCV4P) Rad Sims DO Work Phone: [facility] 06-19-2016 hepatitis A vaccine, adult dosage Rad Bethany DO Work Phone: [facility] 06-19-2016 Human Papillomavirus 9-valent vaccine Rad Bethany DO Work Phone: [facility] 12-13-2012 meningococcal polysaccharide (groups A, C, Y and W-135) diphtheria toxoid conjugate vaccine (MCV4P) Rad Sims DO Work Phone: [facility] 12-13-2012 tetanus toxoid, redu maryanne diphtheria toxoid, and acellular pertussis vaccine, adsorbed Rad Sims DO Work Phone: [facility] 04-11-2009 novel influenza-H1N1 -09, preservative-free, injectable Rad Sims DO Work Phone: [facility] 02-15-2002 diphtheria, tetanus toxoids and acellular pertussis vaccine, unspecified formulation Rad Sims DO Work Phone: [facility] 02-15-2002 measles, mumps and rubella virus vaccine Rad Sims DO Work Phone: [facility] 02-15-2002 poliovirus vaccine, inactivated Rad Sims DO Work Phone: [facility] 05-22-1998 diphtheria, tetanus toxoids and acellular pertussis vaccine, unspecified formulation Rad Sims DO Work Phone: [facility] 05-22-1998 haemophilus influenz ae type b vaccine, conjugate unspecified formulation Rad Sims DO Work Phone: [facility] 05-22-1998 trivalent poliovirus vaccine, live, oral Rad Sims DO Work Phone: [facility] 02-20-1998 measles, mumps and rubella virus vaccine Rad Sims DO Work Phone: [facility] 1997 diphtheria, tetanus toxoids and acellular pertussis vaccine, unspecified formulation Rad Sims DO Work Phone: [facility] 1997 haemophilus influenz ae type b vaccine, conjugate unspecified formulation Rad Sims DO Work Phone: [facility] 1997 hepatitis B vaccine, pediatric or pediatric/adolescent dosage Rad Sims DO Work Phone: [facility] 1997 diphtheria, tetanus toxoids and acellular pertussis vaccine, unspecified formulation Rad Sims DO Work Phone: [facility] 1997 haemophilus influenz ae type b vaccine, conjugate unspecified formulation Rad Sims DO Work Phone: [facility] 1997 poliovirus vaccine, inactivated Rad Sims DO Work Phone: [facility] 1997 diphtheria, tetanus toxoids and acellular pertussis vaccine, unspecified formulation Rad Sims DO Work Phone: [facility] 1997 haemophilus influenz ae type b vaccine, conjugate unspecified formulation Rad Sims DO Work Phone: [facility] 1997 poliovirus vaccine, inactivated Rad Sims DO Work Phone: [facility] 1997 hepatitis B vaccine, pediatric or pediatric/adolescent dosage Rad Sims DO Work Phone: [facility] 1997 hepatitis B vaccine, pediatric or pediatric/adolescent dosage Rad Sims DO Work Phone: [facility] Payers Date Payer Category Payer [facility] er [id number] 2024 Unknown [id number] 2023 Medicaid [id number] [id number] 2022 Private Health Insurance [id number] .[id number]. [id number] 2022 Unknown [id number]. 1.13.159.2. [id number] 2022 Blue Cross Blue Shield [id number] 2.16.840.1.874125.19 1997 Unknown [id number] 2.16.840.1.497565.3.579.2. 175 1997 Unknown [id number] 2.16.840.1.593748.3.579.2. 593 1997 Unknown [id number] 2.16.840.1.725531.3.579.2. 593 1997 Unknown [id number] 2.16.840.1.819988.3.579.2. 93 1997 Unknown [id number] 2.16.840.1.649122.3.579.2. 727 1997 Unknown [id number] 2.16.840.1.976847.3.579.2. 727 1997 Unknown [id number] 2.16.840.1.532719.3.579.2. 727 1997 Unknown [id number] 2.16.840.1.271812.3.579.2. 727 1997 Unknown [id number] 2.16.840.1.322154.3.579.2. 1259 1997 Unknown [id number] 2.16.840.1.597009.3.579.2. 1259 1997 Unknown [id number] 2.16.840.1.238136.3.579.2. 1259 1997 Unknown [id number] 2.16.840.1.492518.3.579.2. 1259 27-1997 Unknown [id number] 2.16.840.1.561164.3.579.2. 1258 1997 Unknown [id number] 2.16.840.1.049719.3.579.2. 1258 1997 Unknown [id number] 2.16.840.1.082985.3.579.2. 1258 1997 Unknown [id number] 2.16.840.1.641683.3.579.2. 1258 1997 Unknown [id number] 2.16.840.1.878906.3.579.2. 1258 1997 Unknown [id number] 2.16.840.1.837471.3.579.2. 1258 1997 Unknown [id number] 2.16.840.1.214582.3.579.2. 1258 1997 Unknown [id number] 2.16.840.1.947447.3.579.2. 1258 1997 Unknown [id number] 2.16.840.1.657100.3.579.2. 1258 1997 Unknown [id number] 2.16.840.1.448736.3.579.2. 1258 1997 Unknown [id number] 2.16.840.1.949874.3.579.2. 9 1959 Self-pay 1959 Unknown [id number] 1.2.840.542653.1.13.239.2. 7.3.707396.315 Medicaid [place] Advantage [id number] Unknown [id number] 2.16.840.1.878370.3.579.2. 593 Unknown [id number] Unknown [id number] 2.16.840.1.993983.3.579.2. 531 Unknown [id number] 2.0.1.758342.3.579.2. 531 Unknown [id number] 2.840.1.901743.3.579.2. 531 Unknown [id number] 2.16840.1.318778.3.579.2. 531 Unknown [id number] 2.0.1.435823.3.579.2. 531 Social History Date Type Detail Facility Start: 12-07-2020 End: 10-21-2022 Tobacco smoking status NHIS Never smoker [facility] Comment on above: Denies Start: 12-07-2020 Alcohol intake Ex-drinker (finding) [facility] Phone: Start: 1997 Sex Assigned At Not on file [facility] Phone: Exposure to SARS-CoV -2 (event) Not sure [employer] Start: 06-29-2023 End: 01-11-2024 Sex Assigned At [facility] Tobacco [facility] Comment on above: Denies. Tobacco smoking status No Smokin g Status Entered [facility] Start: 1995 Sex Assigned At Female F [facility] Start: 06-29-2023 Tobacco smoking stat us NHIS Occasional tobacco smoker [facility] Start: 10-21-2022 End: 06-29-2023 Tobacco use and exposure Smokeless tobacco non-user [facility] Start: 06-29-2023 End: 01-11-2024 History of Social function [facility] Start: 06-29-2023 Tobacco Comment Vapes occasionally [facility] Start: 07-05-2023 End: 04-25-2024 Alcohol [...] to [address] cups [address] [facility] Start: 07-27-2023 End: 03-24-2024 Tobacco smoking status NHIS Ex-smoker (finding) [facility] How many standard drinks containing alcohol do you have on a typical day? Patient does not drink [facility] Start: 01-11-2024 Alcohol Comment Once in a while [facility] Start: 01-23-2024 [facility] Goals Date Patient Goal Desired Activity /State Personal health goal Functional Status Date Assessment Result Facility 03-24-2024 Functional Status N/A [facility] 01-15-2024 Functional Status N/A [facility] 07-19-2022 Functional Status N/A [facility] 07-08-2022 Functional Status N/A [facility] Clinical Notes 07-20-2021 to 07-27-2024 PARADISE Griffiths - 07/27/2024 8:30 AM Komal Morales LPN - 07/12/2024 9:30 AM Terra Rhodes LPN - 06/09/2024 8:50 AM PARADISE Buitrago - 05/10/2024 9:40 AM Jen Land - 03/10/2024 1:00 PM EDT Note Date & Type Note Facility 07-27-2024 History of Presen t illness Narrative Reason [...] nursing note reviewed. Exam conducted with a inventory taker present. Vitals: Estimated body mass index is 39.29 kg/m as calculated from the following: Height as of 01/11/24: 5' 2 . Weight as of this encounter: 214 lb 12.8 oz. BP: 120/58 Patient's last menstrual period was 01/09/2024. ASSESSMENT & PLAN ICD-10-CM 1. Third trimester Z34.93 POCT urinalysis dipstick manually resulted 2. 28 weeks gestation of Z3A.28 3. size inconsistent with dates O26.849 US OB follow up transabdominal approach Return OB: Patient presents today for a routine obstetrics appointment. Patient is currently 28w4d . Patient states she is doing well but has complaints of being tired due to current . Patient has verbalizes frequent movement. labor precautions was discussed/given and patient was instructed to perform kick counts three times a day. Orders Placed This Encounter Procedures US OB follow up transabdominal approach POCT urinalysis dipstick manually resulted Follow Up: Patient is to return to office in 2 week for routine OB appointment. Reviewed Anatomy Ultrasound 4 chamber heart visualized without mention to 3 vessel cord will discuss with radiology. Schedule for growth ultrasound in 2 weeks time. Return OB: Patient presents today for a routine obstetrics appointment. Patient is currently 28w4d . Patient states she is doing well but has complaints of being tired due to current . Patient has verbalizes frequent movement. labor precautions was discussed/given and patient was instructed to perform kick counts three times a day. Orders Placed This Encounter Procedures US OB follow up transabdominal approach POCT urinalysis dipstick manually resulted Follow Up: Patient is to return to office in 2 week for routine OB appointment. Documented by Krystal Lo NP on behalf of: PARADISE Griffiths documented in this encounter [facility] 07-12-2024 History of Presen t illness Narrative [...] nursing note reviewed. Exam conducted with a inventory taker present. Vitals: Estimated body mass index is [...] Donovan Vora DO documented in this encounter [facility] 06-17-2024 Note ED Patient Education Note Gastroenterology [...] added (diluted fruit juice). ??? Eat bland, oajz-la-dnwxvo foods in small amounts as you are able. These foods include bananas, applesauce, rice, lean meats, toast, and crackers. ??? Avoid fluids that contain a lot of sugar or caffeine, such as energy drinks, sports drinks, and soda. ??? Avoid alcohol. ??? Avoid spicy or fatty foods. General instructions ??? Take rbcs-gbv-iggqmvc and prescription medicines only as told by your health care provider. ??? Drink enough fluid to keep your urine pale yellow. ??? Wash your hands often using soap and water for at least 20 seconds. If soap and water are not available, use hand jde developer. ??? Make sure that everyone in your [...] and drinking to prevent dehydration. ??? Take aeaf-azf-hvjilkt and prescription medicines only as told by [...] provider. Document Revised: 11/15/2021 Document Reviewed: 11/15/2021 [employer] Patient Education ? 2023 OUYA. [facility] 06-09-2024 History of Presen t illness [...] nursing note reviewed. Exam conducted with a inventory taker present. Vitals: Estimated body mass index is [...] Donovan Vora DO documented in this encounter [facility] 05-10-2024 History of Presen t illness [...] calculated from the following: Height as of 8/19/24: 5' 2 . Weight as of this [...] of: PARADISE Griffiths documented in this encounter [facility] 04-25-2024 History of Presen t illness Narrative Images from the original note were not included. [address] , [address] [facility], [address] P: [phone] F: [phone] HPI Historian of HPI: patient Devorah Shelton [...] ear normal. Nose: Nose normal. Mouth/Throat: Lips: [place]. Mouth: Mucous membranes are moist. Pharynx: Oropharynx [...] gestation of Reviewed. documented in this encounter [facility] 04-11-2024 History of Presen t illness [...] nursing note reviewed. Exam conducted with a inventory taker present. Vitals: Estimated body mass index is [...] or undercooked meat, and stay away from [facility]. Patient has been consulted regarding any further do's and don'ts of . Patient voiced understanding and all questions and concerns were answered. Orders Placed This Encounter Procedures POCT urinalysis dipstick manually resulted Follow Up: Patient is to return in 4 weeks for routine OB appointment. Documented by Viola Rhodes LPN on behalf of: Donovan Vora DO documented in this encounter [facility] 03-28-2024 Telephone encounter Note Pt fell [...] wrist to ensure no fracture. Ordered to [facility]. She as made aware. [facility] 03-28-2024 Miscellaneous Notes Pt fell last [...] as made aware. documented in this encounter [facility] 03-25-2024 Hospital Discharg e instructions Patient [...] are safe for you. General instructions Take xoca-kqw-dhljurx and prescription medicines only as told by [...] provider. Document Revised: 09/17/2020 Document Reviewed: 09/17/2020 [employer] Patient Education 2023 [employer] Follow Up Care 03/24/2024 18:46:04 With:JELLY CHERY Address: [address] [place], [place] [id number]- Business (1) When:03/27/2024 [facility] 03-24-2024 Note ED Patient Education Note [...] safe for you. General instructions ??? Take weus-dox-xeewfeb and prescription medicines only as told by [...] swelling gets worse (more content not included)... [facility] 03-10-2024 History of Presen t illness [...] current episode of major depressive disorder (HCC) (CMS/[facility]) Ovarian cyst 2016 Plantar verruca Tinnitus, bilateral [...] or undercooked meat, and stay away from [facility]. Patient has also been advised to [...] by: Sarah Land documented in this encounter [facility] 02-11-2024 Telephone encounter Note Urine test +. Patient lab requested. [facility] 02-11-2024 Miscellaneous Notes Urine test +. Patient lab requested. documented in this encounter [facility] 01-16-2024 Hospital Discharg e instructions Patient [...] mouth or applied to the skin. Take uots-wdv-elullva and prescription medicines only as told by [...] provider. Document Revised: 09/13/2020 Document Reviewed: 08/22/2020 [employer] Patient Education 2022 OUYA. Follow Up Care 01/15/2024 21:25:10 With:JELLY MIRI Address: [address] [place], [place] [phone]- Business (1) When:01/18/2024 Comments:To schedule follow-up appointment with your family physician if symptoms not improve in the next 2 to 3 days. Alternate Tylenol, ibuprofen, and ice as needed for pain management. Return to the ED with any worsening symptoms [facility] 01-15-2024 Note ED Patient Education Note [...] mouth or applied to the skin. Take xfln-cgn-zxnvece and prescription medicines only as told by [...] provider. Document Revised: 09/13/2020 Document Reviewed: 08/22/2020 [employer] Patient Education ? 2022 OUYA. [facility] 01-15-2024 Evaluation + Plan note Extrac betty from: Title:ED Note Author:Whitney Frost PA-C te:01/15/24 Hand pain, left (M79.642: Pa in in left hand) Orders: XR Hand 3+ Views Left [facility] 02-11-2024 History of Present illness Narrative* [...] TEST(S) ORDERS FOR RESULTS documented in this encounterFulton State [id number] NoteHNO ID: [id number] Author: CHRISTEN DIAS RT(R) Service: Radiology Author [...] PATIENT PRESENTS WITH AN IMPLANTABLE OR ATTACHED MUNICIPAL FIREFIGHTER: No RADIOLOGY DEPARTMENT: General X-ray: Exam(s) Completed: Upper Extremity X-Ray(s): Hand, right PERIPHERAL IV DATA: Not applicable SIGNED BY: RT Lb(R) June 29, 2023 4:27 [facility]02-05-2024 NoteHNO ID: [id number] Author: MIGUEL ANG PA-C Service: ? Author Type: Physician Investment Strategist Type: Progress Notes Filed: 06/30/2023 08:33 Note Text: PLASTIC SURGERY DEPARTMENT [facility] Hand Surgery Note [] New referred by []self []physician.......... [] Follow-up CC: ..right hand pain............ ? HPI: Devorah is a 28 year old female who presnets after being bit by a dog in February 2023. Reports was bit at the [facility] and has never healed correctly. Patient also suffered infection of the right hand following a dog bite which she was treated with antibiotics. She reported that the infection started to move up the arm past the wrist. 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 Dominant Hand: [...] to calculate BSA. AXEL (more content not included)...[facility]02-05-2024 History of Present illness Narrative* Christen Dias [...] PATIENT PRESENTS WITH AN IMPLANTABLE OR ATTACHED MUNICIPAL FIREFIGHTER: No RADIOLOGY DEPARTMENT: General X-ray: Exam(s) Completed: Upper Extremity X- Ray(s): Hand, right PERIPHERAL IV DATA: Not applicable SIGNED BY: RT Lb([employer]) June 29, 2023 4:27 PM documented in this encounterUniversity [facility]02-05-[facility]24 History of Present illness Narrative* Miguel Ang PA-C - 06/29/2023 4:16 PM EST PLASTIC SURGERY DEPARTMENT [facility] Hand Surgery Note [] New referred by []self []physician.......... [] Follow-up CC: ..right hand pain............ ? HPI: Devorah is a 28 year old female who presnets after being bit by a dog in February 2023. Reportswas bit at the [facility] and has never healed correctly. Patient also suffered infection of the right hand following a dog bite which she was treated with antibiotics. She reported that the infection started to move up the arm past the wrist. 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 Dominant Hand: [...] -[] Boutonniere deformity +[] -[] +[] -[] Mccune neck deformity +[] -[] +[] -[] FINGERS [...] deformity +[] -[x] Boutonniere deformity +[] -[x] Mccune neck deformity +[] -[x] WRIST RIGHT LEFT [...] []consult pain management []consult orthopedics Follow-up: [x]with PROPAGATION MANAGER [] with []after tests completed [x]PRN []1 [...] fully corrected. documented in this encounterUniversity Hospitals [facility] Center10-03-2023 NoteOrthopedic Surgery Subjective Follow-up of [...] exhibit full active and passive ROM. Strength: drafter seismograph 5/5, thumb 5/5, interossei 5/5 Sensation: intact [...] is planning on doing hand therapy in [place]. - WBAT and ROM of digits as [...] may be an additional personal documentation from me.[facility]09-26-2023 Note 27-year-old female leyxm-adqg-oicymtmu who sustained a dog bite to her [...] of motion exercises with occupational therapy at [facility]. She will complete her antibiotic regime. We will have her follow-up with Dr. Smallwood next week. She will report immediately the emergency room should she develop any signs of infection.[facility]05-26-2023 Evaluation note* Encounter Date Diagnosis Assessment [...] physician if no improvement in 2-3 days [email or web address] Other 02-26-2023 Hospital Discharge instructions Patient Education [...] at all times when lying down. Take vclw-pfp-ihaeshx and prescription medicines only as told by [...] 03/11/2005 Document Revised: 04/23/2018 Document Reviewed: 04/03/2017 [employer] Patient Education 2020 OUYA. Follow Up Care 07/19/2022 21:36:50 With:PALMIRA RIGGS Address: [address] , [facility] [address] [place] [address] Business (1) When:Within 3 Day(s) [facility]02-25-2023 Evaluation + Plan noteExtracted from: Title:ED Note Author:Roman Syed DO Date :07/19/22 [facility]02-15-2023 Hospital Discharge instructions Patient Education 07/08/2022 [...] 08/02/2012 Document Revised: 04/23/2018 Document Reviewed: 07/04/2016 [employer] Patient Education 2020 [employer] 07/08/2022 22:15:17 Dysphagia Eating Plan, Pureed Dysphagia Eating Plan, Pureed This diet is helpful for people with moderate to severe swallowing problems. Pureed foods are smooth and are prepared without lumps so that they can be swallowed safely. Work with your health care provider and your diet and mobile paint specialist (dietitian) to make sure that you [...] best for you. Grains Soft breads, pancakes, [place] toast, muffins, and bread stuffing pureed to [...] foods Coarse or seeded herbs and spices. [place] preserves. Jams with seeds. Whole sandwiches. Non-pureed casseroles. [place] soups. Summary Pureed foods can be helpful [...] 05/11/2006 Document Revised: 09/01/2019 Document Reviewed: 07/14/2017 [employer] Patient Education 2020 OUYA. 07/08/2022 22:15:17 Dysphagia Eating Plan, Minced and [...] health care provider and your diet and mobile paint specialist (dietitian) to make surethat you are [...] or seeds. Pancakes, sweet rolls, pastries, and [place] toast that have been moistened with syrup [...] vegetables, such as celery, peas, broccoli, cabbage, [place] sprouts, and asparagus. Potato skins. Potato and other vegetable chips. Fried or [place]-fried potatoes. Cooked corn and peas. Fruits Hard, [...] 05/11/2006 Document Revised: 09/01/2019 Document Reviewed: 08/21/2017 [employer] Patient Education 2020 OUYA. 07/08/2022 22:15:17 Dehydration, Adult, Whod-vc-Gxha Dehydration, Adult Dehydration is when there is [...] a lot of fat or sugar. Take siww-onr-pgwyhvx and prescription medicines only as told by [...] 03/07/2010 Document Revised: 04/23/2018 Document Reviewed: 07/04/2016 [employer] Patient Education [employer] Follow Up Care 07/08/2022 17:43:05 With:PALMIRA RIGGS Address: [address] , [place] [phone] Business (1) When:07/11/2022 21:56:31 [facility]01-30-2023 Evaluation note* Encounter Date Diagnosis Assessment [...] should improve within the next 4-7 days. [email or web address] Other 01-25-2023 Evaluation note* Encounter Date Diagnosis [...] covered if open and draining. Otherwise leave VAT SKIMMER. May try to treat with piercing still [...] Pt understood and agreed to tx plan. [email or web address] Other 12-30-2022 Evaluation note* Encounter Date Diagnosis Assessment Notes Treatment Notes Treatment Clinical Notes Apr, Strep pharyngitis (ICD-10 - J02.0) [email or web address] Other 11-23-2022 Evaluation note* Encounter Date Diagnosis [...] Pt understood and agreed to treatment plan. [email or web address] Other 10-28-2022 Evaluation note* Encounter Date Diagnosis [...] Pt understood and agreed to treatment plan. [email or web address] Other 02-26-2022 Evaluation note* Encounter Date Diagnosis [...] days. Patient understands and agrees the plan. [email or web address] Other Evaluation + Plan note No data available for this section [facility] Diagnosis Trigger point with back pain- Primary Backache, unspecified Hepatic steatosis Other chronic nonalcoholic liver disease documented in this encounter [facility] [employer] Work Phone: evaluation noteNo assessment information available [facility] Work Phone: Evaluation note* Diagnosis Right hand pain Pain in limb [facility] Right hand pain- Primary Pain in limb documented in this encounter [facility]* Diagnosis Recurrent acute suppurative otitis media without spontaneous rupture of tympanic membrane of both sides- Primary Pharyngitis, unspecified etiology documented in this encounter [facility] HealthcareEvaluation note* Diagnosis Onset Date Resolution Status Dog bite of right hand with infection acute [facility] Work Phone: Evaluation note* Diagnosis Onset Date Resolution Status Dog bite of right hand with infection acute Abnormal MRI acute Dog bite of right hand with infection acute Injury of right hand acute [facility] Work Phone: Evaluation note* Diagnosis Onset Date Resolution Status Dog bite of right hand with infection acute Dog bite of right hand with infection acute Injury of right hand acute Dog bite of right hand acute [facility] Work Phone: Evaluation note* Diagnosis Onset Date Resolution Status Dog bite of right hand with infection acute Injury of right hand acute Dog bite of right hand acute Pain of right middle finger acute [facility] Work Phone: Evaluation note* Diagnosis Onset Date Resolution Status Dog bite of right hand with infection acute Injury of right hand acute Dog bite of right hand acute Pain of right middle finger acute Skin yeast infection acute [facility] Work Phone: Evaluation note* Diagnosis Onset Date Resolution Status Dog bite of right hand with infection acute Injury of right hand acute Dog bite of right hand acute Pain of right middle finger acute Skin yeast infection acute Dog bite of right hand acute Pain of right middle finger acute [facility] Work Phone: Evaluation note* Diagnosis Onset Date Resolution Status Dog bite of right hand acute Pain of right middle finger acute [facility] Work Phone: Evaluation note* Diagnosis Missed menses [...] ultrasound of anatomy documented in this encounter [facility] HealthcareEvaluation note* Diagnosis Second trimester state, incidental 26 weeks gestation of documented in this encounter [facility]* Diagnosis Third trimester state, incidental 28 weeks gestation of size inconsistent with dates documented in this encounter [facility] HealthcareHistory general Narrative - Reported* Type Description Date Medical History otitis media Medical History depression and anxiety Medical History asthma Medical History joint swelling Surgical History adenoidectomy Surgical History PE tubes [email or web address] Other History general Narrative - Reported* Type Description Date Medical History otitis media Medical History depression and anxiety Medical History asthma Medical History joint swelling Surgical History adenoidectomy Surgical History PE tubes Surgical History tonsillectomy 06/2022 [email or web address] Other Progress note No data available for this section [facility] for referral (narrative)* Diagnostic Procedure Only (Routine) - Authorized Specialty Diagnoses / Procedures Referred By Leodan simeon Referred To Contact XR IMAGING Diagnoses Right hand pain Procedures XR HAND GENERAL 3V PA/LAT/OBL RIGHT RADEX HAND MINIMUM 3 VIEWS Brianda Cartwright MD [address] [place] [address] Xr Imaging [facility] Referral ID Status Reason Start Date Expiration Date Visits Requested Visits Authorized [id number] Authorized Auto-Generat ed Referral 06/29/2023 07/28/2024 10 10 [facility] for referral (narrative)* Diagnostic Procedure Only (Routine) - Authorized Specialty Diagnoses / Procedures Referred By Leodan t Referred To Contact XR IMAGING Diagnoses Right hand pain Procedures XR HAND GENERAL 3V PA/LAT/OBL RIGHT RADEX HAND MINIMUM 3 VIEWS Brianda Cartwright MD [address] [facility] [place] [id number] Xr Imaging [facility] Referral ID Status Reason Start Date Expiration Date Visits Requested Visits Authorized [id number] Authorized Auto-Generat ed Referral 06/29/2023 07/28/2024 10 10 [facility] Summary Purpose Family History No Family History [...] section and content) DATE CREATED AUTHOR 12/16/2020 [facility] DATE CREATED AUTHOR AUTHOR'S ORGANIZ ATION 03/27/2022 [facility] DATE CREATED AUTHOR AUTHOR'S ORGANIZ ATION 10/01/2022 [facility] dical Specialist DATE CREATED AUTHOR AUTHOR'S ORGANIZ ATION 02/25/2023 [facility] DATE CREATED AUTHOR AUTHOR'S ORGANIZ ATION 07/04/2023 [facility] DATE CREATED AUTHOR AUTHOR'S ORGANIZ ATION 11/22/2023 [facility] DATE CREATED AUTHOR AUTHOR'S ORGANIZ ATION 01/06/2024 [facility] DATE CREATED AUTHOR AUTHOR'S ORGANIZ ATION 06/18/2024 [facility] DATE CREATED AUTHOR AUTHOR'S ORGANIZ ATION 07/29/2024 [facility] dical Specialists [facility] REASON FOR VISIT (unrecogniz ed section and content) Reason Comments [employer] A21 Specialty Diagnoses / Procedures Referred By Contac t Referred To Contact XR IMAGING Diagnoses Right hand pain Procedures XR HAND GENERAL 3V PA/LAT/OBL RIGHT RADEX HAND MINIMUM 3 VIEWS Brianda Cartwright MD [address] [place] [address] [place] [address] Referral ID Status Reason Start Date Expiration Date Visits Requested Visits Authorized [id number] Authorized Auto-Generat ed Referral 06/29/2023 07/28/2024 10 [...] MD Primary Care Provider Active Susie Johnson PROPAGATION MANAGER-C Attending Provider Active Lead Systems Architect Relationship Specialty Start Date End Date Jelly Chery MD [address] [place] [address] Referring Internal Medicine 06/26/23 Lead Systems Architect Relationship Specialty Start Date End Date Jelly Chery MD [address] [place] [address] Referring Internal Medicine 06/26/23 Lead Systems Architect Relationship Specialty Start Date End Jelly Chery MD [address] [facility] [place] [address] PCP - General Internal Medicine 10/17/22 Team [...] February 04, 2024 End: February 04, 2024 Lead Systems Architect Relationship Specialty Start Date End Date Jelly Chery MD [address] [place] [address] PCP - General Internal Medicine 10/17/22 Lead Systems Architect Relationship Specialty Start Date End Date Jelly Chery MD [address] [place] [address] PCP - General Internal Medicine 10/17/22 Lead Systems Architect Relationship Specialty Start Date End Date Jelly Cehry MD [address] [place] [address] PCP - General Internal Medicine 10/17/22 Lead Systems Architect Relationship Specialty Start Date End Date Jelly Chery MD [address] [place] [address] PCP - General Internal Medicine 10/17/22 Lead Systems Architect Relationship Specialty Start Date End Date Jelly Chery MD [address] [place] [address] PCP - General Internal Medicine 10/17/22 Lead Systems Architect Relationship Specialty Start Date End Date Jelly Chery MD [address] [place] [address] PCP - General Internal Medicine 10/17/22 Lead Systems Architect Relationship Specialty Start Date End Date Jelly Chery MD [address] [place] [address] PCP - General Internal Medicine 10/17/22 Lead Systems Architect Relationship Specialty Start Date End Date Jelly Chery MD [address] [place] [address] PCP - General Internal Medicine 10/17/22 Lead Systems Architect Relationship Specialty Start Date End Date Jelly Chery MD [address] [place] [address] PCP - General Internal Medicine 10/17/22 Lead Systems Architect Relationship Specialty Start Date End Date Jelly Chery MD [address] [place] [address] PCP - General Internal Medicine 10/17/22 Lead Systems Architect Relationship Specialty Start Date End Date Jelly Chery MD [address] [place] [address] PCP - General Internal Medicine 10/17/22 Lead Systems Architect Relationship Specialty Start Date End Date Jelly Chery MD [address] [place] [address] PCP - General Internal Medicine 10/17/22 Lead Systems Architect Relationship Specialty Start Date End Date Jelly Chery MD [address] [place] [address] PCP - General Internal Medicine 10/17/22 Goals [...] any alcohol or drug abuse patient.[facility] CenterIn the event this information is protected by the Federal Confidentiality of Alcohol and Drug Abuse Patient Records regulations: The Federal rules restrict any use of the information to criminally investigate or prosecute any alcohol or drug abuse patient.[facility] FOR RECORDS PERTAINING TO PATIENTS [...] BE BASED ON THE PRIMARY CLINICAL RECORDS. [facility]. provides no warranty or guarantee of the accuracy or completeness of information in this document.
[2024-07-31 22:37] VITALS: BP 122/73; PULSE 92; TEMP 36.5; O2SAT 98; BMI 39.1
--- NOTE | 2024-07-31 23:32 | ED.GENADUL1 ---
HPI HPI - General Adult General Chief complaint: Nausea/Vomiting/Diarrhea Stated complaint: NAUSEA, VOMITING, VISION ISSUES, 29WEEKS PG Time Seen by Provider: 07/31/24 23:31 Mode of arrival: walk-in History of Present Illness HPI narrative: Patient is a 29-year-old female who is presenting to the ER with chief complaint of 1 day of diarrhea. Patient states that anything she drinks will run right through her. Patient has had some nausea, no vomiting today. Patient is 29 weeks . Patient is a G1, P0. Patient's SPECIAL EDUCATION EDUCATIONAL ASSISTANT is Dr. Vora. Patient is not gaining significant amount of weight with her which Dr. Vora is watching. 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 Patient has no headache or neck pain. No chest pain or shortness of breath. No abdominal pain. No abdominal cramping. No urinary frequency urgency or burning. No recent traveling, no new antibiotics, no new water sources. All systems are negative except as noted/marked. All systems reviewed and otherwise negative. Nurses note and vital signs reviewed and patient is not hypoxic. General: The patient appears well and in no apparent distress. Patient is resting comfortably on cart. Patient is not toxic, lethargic, or listless Skin: Warm, dry, no pallor noted. There is no rash noted. No petechiae, purpura. Head: Normocephalic, atraumatic Eye: Normal conjunctiva, no drainage, EOMI. PERRL Ears, Nose, Mouth, and Throat: oral mucosa is moist. Nares patent. Mouth without vesicles. Cardiovascular: Regular Rate and Rhythm, no murmur, gallop, rub Respiratory: Patient is in no distress, no accessory muscle use, lungs are clear to auscultation, no wheezing, rales or rhonchi Back: non-tender, no CVA tenderness bilaterally to percussion. No CT LS midline pain GI: Soft, obese, no tenderness to palpation, no masses appreciated. No rebound, guarding, or rigidity noted. No distention. No peritoneal signs, no flank pain bilateral. Musculoskeletal: Patient has full range of motion of all of the extremities, no motor, sensory, or focal neurological deficits Neurological: A&O x4, normal speech Psychiatric: Cooperative Related Data Home Medications ?Medication ?Instructions ?Recorded ?Confirmed albuterol sulfate 90 mcg/actuation 2 puff inhalation Q6H PRN 11/17/22 11/17/22 aerosol inhaler shortness of breath or wheezing duloxetine 30 mg capsule,delayed 30 mg PO DAILY 11/17/22 11/17/22 release (Cymbalta) Previous Rx's ?Medication ?Instructions ?Recorded methocarbamol 750 mg tablet 750 mg PO Q8H #20 tabs 11/17/22 nabumetone 1,000 mg tablet 1,000 mg PO BID #14 tabs 11/17/22 (Relafen DS) promethazine 25 mg rectal 25 mg WY Q6H PRN nausea and 08/01/24 suppository vomiting #6 ea Allergies Allergy/AdvReac Type Severity Reaction Status Date / Time No Known Drug Allergies Allergy Verified 11/17/22 04:03 Opioid HPI Opioid Management Most Recent Opioid Data: Ur Phencyclidine Scrn Negative (NEGATIVE) 04/04/24 09:41 04/04/24 PFSH PFSH Social History Smoking status: Never smoker Little interest or pleasure in doing things: not at all Feeling down, depressed, or hopeless: not at all Exam Constitutional Vital Signs, click to edit/add: Last Vital Signs Temp 97.7 F 07/31/24 22:37 Pulse 92 H 07/31/24 22:37 Resp 18 07/31/24 22:37 BP 122/73 07/31/24 22:37 Pulse Ox 98 07/31/24 22:37 Course Vital Signs Vital signs: Vital Signs Temperature 97.7 F 07/31/24 22:37 Pulse Rate 92 H 07/31/24 22:37 Respiratory Rate 18 07/31/24 22:37 Blood Pressure 122/73 07/31/24 22:37 Pulse Oximetry 98 07/31/24 22:37 Temperature 97.7 F 07/31/24 22:37 Pulse Rate 92 H 07/31/24 22:37 Respiratory Rate 18 07/31/24 22:37 Blood Pressure 122/73 07/31/24 22:37 Pulse Oximetry 98 07/31/24 22:37 Medical Decision Making MDM Narrative Medical decision making narrative: Patient has normal white blood cell count, patient's sodium is 135, potassium 3.4. Patient was given oral potassium to drink. Patient was given IV Compazine patient took Zofran at home several times a day. Patient is working with Dr. Vora on weight gain. Patient had education norovirus and treating symptomatically with nausea, vomiting, diarrhea. Patient will continue increase fluids. Patient given work note. No question at discharge. Patient was given a prescription for Phenergan suppositories, she has Zofran at home. Lab Data Labs: Lab Results 07/31/24 Range/Units 23:05 WBC 10.9 (4.0-11.0) 10^3/uL RBC 3.70 L (4.20-5.40) 10^6/uL Hgb 11.7 L (12.0-16.0) g/dL Hct 35.1 L (36.0-48.0) % MCV 94.9 (81.0-99.0) fL MCH 31.6 (26.7-34.0) pg MCHC 33.3 (29.9-35.2) g/dL RDW 13.2 (11.0-15.0) % Plt Count 204 (150-450) 10^3/uL MPV 9.6 (9.5-13.5) fL Neut % (Auto) 81.0 H (43.0-75.0) % Lymph % (Auto) 11.5 L (20.5-60.0) % Duchesne % (Auto) 6.7 (1.7-12.0) % Eos % (Auto) 0.2 L (0.9-7.0) % Baso % (Auto) 0.2 (0.2-2.0) % Neut # (Auto) 8.9 H (1.4-6.5) 10^3/uL Lymph # (Auto) 1.3 (1.2-3.8) 10^3/uL Duchesne # (Auto) 0.7 (0.3-0.8) 10^3/uL Eos # (Auto) 0.0 (0.0-0.7) 10^3/uL Baso # (Auto) 0.0 (0.0-0.1) 10^3/uL Abs Immat Gran (auto) 0.04 H (0.00-0.03) 10^3/uL Imm/Tot Granulo (auto) 0.4 (0.0-0.5) % Sodium 135 L (136-145) mmol/L Potassium 3.4 L (3.5-5.1) mmol/L Chloride 102 (98-107) mmol/L Carbon Dioxide 21.5 (21.0-32.0) mmol/L Anion Gap 14.9 BUN 7.0 (7.0-18.0) mg/dL Creatinine 0.49 L (0.55-1.02) mg/dL Est GFR ( Amer) >60 (>=60 mL/min/1.73m^2) Est GFR (Non-Af Amer) >60 (>=60 mL/min/1.73m^2) BUN/Creatinine Ratio 14.3 Glucose 79 (74-106) mg/dL Calcium 8.4 L (8.5-10.1) mg/dL Discharge Plan Discharge Stand Alone Forms: Work/School Release Chief Complaint: Nausea/Vomiting/Diarrhea Clinical Impression: Diarrhea, Hypokalemia, Patient Disposition: Home, Self-Care Time of Disposition Decision: 23:58 Condition: Fair Prescriptions / Home Meds: New promethazine 25 mg suppository 25 mg WY Q6H PRN (Reason: nausea and vomiting) Qty: 6 0RF No Action duloxetine [Cymbalta] 30 mg capsule,delayed release(DR/EC) 30 mg PO DAILY albuterol sulfate 90 mcg/actuation HFA aerosol inhaler 2 puff INHALATION Q6H PRN (Reason: shortness of breath or wheezing) Relafen DS 1,000 mg tablet 1,000 mg PO BID Qty: 14 0RF methocarbamol 750 mg tablet 750 mg PO Q8H Qty: 20 0RF Print Language: Turkish Instructions: Hypokalemia (ED), Acute Nausea and Vomiting (ED), Acute Diarrhea (ED) Additional Instructions: Use Zofran or Phenergan suppositories as needed to help with nausea and increase fluids. Continue to increase fluids with Gatorade Powerade. A potassium supplement was given to you in the ER. Follow-up with Dr. Vora if any other acute concerns Referrals: JELLY CHERY [Primary Care Provider] - 1 week
[2024-07-31 23:36] LABS: Basophils Percent Auto 0.2 % (0.2-2.0); Eosinophils Percent Auto 0.2 % (0.9-7.0); Hematocrit 35.1 % (36.0-48.0); Hemoglobin 11.7 g/dL (12.0-16.0); Immature Granulocytes Abs Auto 0.04 10^3/uL (0.00-0.03); Immature Granulocytes Pct Auto 0.4 % (0.0-0.5); Lymphocytes Absolute Auto 1.3 10^3/uL (1.2-3.8); Lymphocytes Percent Auto 11.5 % (20.5-60.0); Mean Corpuscular HGB Conc 33.3 g/dL (29.9-35.2); Mean Corpuscular Hemoglobin 31.6 pg (26.7-34.0); Mean Corpuscular Volume 94.9 fL (81.0-99.0); Mean Platelet Volume 9.6 fL (9.5-13.5); Monocytes Absolute Auto 0.7 10^3/uL (0.3-0.8); Monocytes Percent Auto 6.7 % (1.7-12.0); Neutrophils Absolute Auto 8.9 10^3/uL (1.4-6.5); Platelet Count 204 10^3/uL (150-450); Red Cell Distribution Width 13.2 % (11.0-15.0); White Blood Count 10.9 10^3/uL (4.0-11.0)
[2024-07-31 23:45] LABS: Anion Gap 14.9; BUN Creatinine Ratio 14.3; Calcium 8.4 mg/dL (8.5-10.1); Carbon Dioxide 21.5 mmol/L (21.0-32.0); Chloride 102 mmol/L (98-107); Estimated GFR (African America >60 (>=60 mL/min/1.73m^2); Estimated GFR (Non-African Ame >60 (>=60 mL/min/1.73m^2); Glucose 79 mg/dL (74-106); Potassium 3.4 mmol/L (3.5-5.1); Sodium 135 mmol/L (136-145)
[2024-08-01] MEDS: 0.9 % SODIUM CHLORIDE 1,000 ML 1000 ML IV (00:01)
[2024-08-01] MEDS: PROCHLORPERAZINE 10 MG/2 ML VIAL 5 MG IV (00:04)
[2024-08-01] MEDS: POTASSIUM BICARBONATE/CIT 25 MEQ TABLET EFF 50 MEQ PO (00:22)
[2024-08-01 01:20] VITALS: BP 124/76; PULSE 95; O2SAT 98
== END 2024-08-01 01:20 | disposition home or self-care (01) ==
PROVIDERS: Emergency Provider Emergency Medicine; PCP Internal Medicine
DX: O99.283 Endocrine, nutritional and metabolic diseases complicating pregnancy, third trimester (principal); E87.6 Hypokalemia; Z3A.29 29 weeks gestation of pregnancy; O99.893 Other specified diseases and conditions complicating puerperium; R19.7 Diarrhea, unspecified
CPT/HCPCS: 36415; 80048; 85025; 96361; 96374; 99284; J0780

== ENCOUNTER 2024-09-15 12:19 | Outpatient (REF) | payer BC, OTHER, SELFPAY | END 2024-09-15 12:20 | disposition home or self-care (01) | LOC: LAB 12:19 | PROVIDERS: PCP Internal Medicine; Visit Provider Obstetrics & Gynecology | DX: Z34.93 Encounter for supervision of normal pregnancy, unspecified, third trimester (principal) | CPT/HCPCS: 36415; 87081; 87184 ==

== ENCOUNTER 2024-09-23 21:42 | Observation (INO) | payer BC, OTHER, SELFPAY ==
[2024-09-23 21:58] VITALS: BP 124/77; PULSE 95
[2024-09-23 22:06] LABS: Bilirubin Urine NEGATIVE (NEGATIVE); Blood Urine NEGATIVE (NEGATIVE); Clarity Urine CLEAR (CLEAR); Color Urine YELLOW (YELLOW); Glucose Urine UA NEGATIVE (NEGATIVE); Ketones Urine TRACE mg/dL (NEGATIVE); Leukocyte Esterase Urine NEGATIVE (NEGATIVE); Nitrite Urine NEGATIVE (NEGATIVE); Protein Urine TRACE mg/dL (NEG/TRACE); Specific Gravity Urine 1.025 (1.005-1.025); pH Urine 6.5 (5.0-9.0)
[2024-09-23 22:17] LABS: Urine Microscopic Indicated NO
--- NOTE | 2024-09-23 23:20 | US_ITS ---
[address] [address] Patient Name: MACARENA GAMBLE MRN: [id number] date: 1995 Sex: F Assigned Patient Location: [facility] Current Patient Location: [facility] Accession/Order Number: [id number] Exam Date: 09/25/2024 20:14 Report Date: 09/25/2024 20:24 At the request of: NAYELY WILLS DO Procedure: US OB BPP w non-stress Biophysical profile. Reason for exam: Decreased movement. COMPARISON: None. TECHNIQUE: Transabdominal imaging of the gravid uterus was obtained. FINDINGS: The ice guard inspector reports a BPP of 8 out of 8. MINNIE is normal at 12.5 cm. heart rate 139 bpm. US/US OB BPP w non-stress IMPRESSION: BPP 8 out of 8. Impression dictated by: José Miguel Fuentes Jr., D.O. 09/25/2024 8:24 PM Dictation Location: [employer] Electronically authenticated by: [id number] Y Date: 09/25/2024 20:24
== END 2024-09-23 23:51 | disposition home or self-care (01) ==
PROVIDERS: Admitting Provider Obstetrics & Gynecology; PCP Internal Medicine; Visit Provider Obstetrics & Gynecology
DX: O36.8130 Decreased fetal movements, third trimester, not applicable or unspecified (principal); Z3A.36 36 weeks gestation of pregnancy
CPT/HCPCS: 59025; 76818; 81003; G0378; G0379

== ENCOUNTER 2024-09-30 15:59 | Outpatient (OUT) | payer BC, OTHER, SELFPAY ==
--- NOTE | 2024-09-30 16:03 | US_ITS ---
The [address] [address] Patient Name: MACARENA GAMBLE MRN: [id number] date: 1995 Sex: F Assigned Patient Location: Current Patient Location: [facility] Accession/Order Number: [id number] Exam Date: 10/03/2024 09:34 Report Date: 10/03/2024 09:41 At the request of: NAYELY WILLS DO Procedure: US OB BPP w non-stress CLINICAL DATA: Macrosomia ULTRASOUND OB GROWTH COMPARISON: 07/22/2024 There is a single live intrauterine gestation in cephalic presentation. There is cardiac and somatic activity with heart rate of 126 bpm. The amniotic fluid index measures 18.2 cm which is in upper normal range. The following measurements were obtained: Biparietal diameter 9.2 cm 37 weeks 3 days 62% Head circumference 33.9 cm 38 weeks 6 days 55% Abdominal circumference 34.6 cm 38 weeks 3 days 82% Femur length 7.1 cm 36 weeks 4 days 21% The composite ultrasound age based on these measurements is 37 weeks 6 days +/- 2 weeks 5 days. The estimated weight is 7 lbs. 6 oz. +/- 1 lb. 2 oz. (64%). US/US OB BPP w non-stress IMPRESSION: SINGLE LIVE INTRAUTERINE GESTATION WITH ULTRASOUND AGE OF 37 WEEKS 6 DAYS. APPROPRIATE INTERVAL GROWTH. BIOPHYSICAL PROFILE: COMPARISON: 09/23/2024 FINDINGS: TONE: 1 or more episodes of activity extension and flexion of extremity or opening and closing of the hand [Y] 2/2 GROSS BODY MOVEMENTS: 3 or more discrete body or limb movements [Y] 2/2 BREATHING MOVEMENTS: 1 or more episodes of breathing lasting at least 30 seconds [Y] 2/2 MINNIE: A single deepest vertical pocket of amniotic fluid greater than 2 cm [Y] 2/2 MINNIE: 18.2 cm Total score: 8/8 IMPRESSION: NORMAL BIOPHYSICAL PROFILE Impression dictated by: Liliana Goyal M.D. 10/03/2024 9:41 AM Dictation Location: [place] [address] Electronically authenticated by: [id number] Y Date: 10/03/2024 09:41
--- NOTE | 2024-09-30 16:04 | US_ITS ---
[address] [address] Patient Name: MACARENA GAMBLE MRN: [facility]:[id number] date: 1995 Sex: F Assigned Patient Location: [facility] Current Patient Location: [facility] Accession/Order Number: [id number] Exam Date: 10/03/2024 09:34 Report Date: 10/03/2024 09:41 At the request of: NAYELY WILLS DO Procedure: US OB BPP w non-stress CLINICAL DATA: Macrosomia ULTRASOUND OB GROWTH COMPARISON: 07/22/2024 There is a single live intrauterine gestation in cephalic presentation. There is cardiac and somatic activity with heart rate of 126 bpm. The amniotic fluid index measures 18.2 cm which is in upper normal range. The following measurements were obtained: Biparietal diameter 9.2 cm 37 weeks 3 days 62% Head circumference 33.9 cm 38 weeks 6 days 55% Abdominal circumference 34.6 cm 38 weeks 3 days 82% Femur length 7.1 cm 36 weeks 4 days 21% The composite ultrasound age based on these measurements is 37 weeks 6 days +/- 2 weeks 5 days. The estimated weight is 7 lbs. 6 oz. +/- 1 lb. 2 oz. (64%). US/US OB growth IMPRESSION: SINGLE LIVE INTRAUTERINE GESTATION WITH ULTRASOUND AGE OF 37 WEEKS 6 DAYS. APPROPRIATE INTERVAL GROWTH. BIOPHYSICAL PROFILE: COMPARISON: 09/23/2024 FINDINGS: TONE: 1 or more episodes of activity extension and flexion of extremity or opening and closing of the hand [Y] 2/2 GROSS BODY MOVEMENTS: 3 or more discrete body or limb movements [Y] 2/2 BREATHING MOVEMENTS: 1 or more episodes of breathing lasting at least 30 seconds [Y] 2/2 MINNIE: A single deepest vertical pocket of amniotic fluid greater than 2 cm [Y] 2/2 MINNIE: 18.2 cm Total score: 8/8 IMPRESSION: NORMAL BIOPHYSICAL PROFILE Impression dictated by: Liliana Goyal M.D. 10/03/2024 9:41 AM Dictation Location: [place] [address] Electronically authenticated by: [id number] Y Date: 10/03/2024 09:41
[2024-09-30 16:49] VITALS: BP 121/75; PULSE 76
== END 2024-09-30 17:20 | disposition home or self-care (01) ==
LOC: US 16:00 → FBC 16:02
PROVIDERS: PCP Internal Medicine; Visit Provider Obstetrics & Gynecology
DX: O26.843 Uterine size-date discrepancy, third trimester (principal); Z3A.37 37 weeks gestation of pregnancy
CPT/HCPCS: 76816; 76818

== ENCOUNTER 2024-10-04 15:28 | Outpatient (OUT) | payer BC, OTHER, SELFPAY ==
[2024-10-04 15:31] VITALS: BP 138/94; PULSE 76
== END 2024-10-04 16:12 | disposition home or self-care (01) ==
LOC: FBCO 15:28 → FBC 15:29
PROVIDERS: PCP Internal Medicine; Visit Provider Obstetrics & Gynecology
DX: O36.63X0 Maternal care for excessive fetal growth, third trimester, not applicable or unspecified (principal)

== ENCOUNTER 2024-10-07 15:55 | Outpatient (OUT) | payer BC, OTHER, SELFPAY ==
--- NOTE | 2024-10-07 15:59 | US_ITS ---
[place] [id number] Patient Name: MACARENA GAMBLE MRN: [id number] date: 1995 Sex: F Assigned Patient Location: [facility] Current Patient Location: Accession/Order Number: [id number] Exam Date: 10/08/2024 10:48 Report Date: 10/08/2024 10:49 At the request of: NAYELY WILLS DO Procedure: US OB BPP w non-stress Ultrasound obstetrical biophysical profile HISTORY: Macrosomia There is adequate breathing movement, gross body movement, tone and amniotic fluid volume with a total score of 8 out of 8. The amniotic fluid index is 11.4 cm within normal limits. The heart rate is 133 bpm. US/US OB BPP w non-stress IMPRESSION: Adequate ultrasound biophysical profile. Impression dictated by: Bishnu Hernandez M.D. 10/08/2024 10:49 AM Dictation Location: [employer] Electronically authenticated by: [id number] Y Date: 10/08/2024 10:49
[2024-10-07 16:30] VITALS: BP 110/66; PULSE 73
== END 2024-10-07 17:02 | disposition home or self-care (01) ==
LOC: US 15:55 → FBC 15:56
PROVIDERS: PCP Internal Medicine; Visit Provider Obstetrics & Gynecology
DX: O36.63X0 Maternal care for excessive fetal growth, third trimester, not applicable or unspecified (principal); Z3A.38 38 weeks gestation of pregnancy
CPT/HCPCS: 76818

== ENCOUNTER 2024-10-08 11:01 | Observation (INO) | payer BC, OTHER, SELFPAY ==
--- OUTSIDE RECORDS SUMMARY | 2024-10-08 11:07 | XMS_ITS | CCD ---
Author Organization [facility] Care Team Providers Care Shift Boss Name Role Phone Palmira Riggs DO Primary Care Provider [phone] SIMONE MANLEY Attending Unavailable PALMIRA RIGGS Primary [...] Provider MD Simone Meng Emergency Provider MARISA MSALLWOOD Referring Unavailable MARISA SMALLWOOD Attending Unavailable JAISON PETIT Attending Unavailable MD Jelly Chery Primary Care Provider MD Simone Meng Emergency Provider [phone] JONATHAN Johnson Attending Provider Jelly Chery MD Unavailable MIGUEL ANG Attending Unavailable BRIANDA CARTWRIGHT Referring Unavailable Jelly Chery MD Primary Care Provider MD Jelly Chery Primary Care Provider MD Simone Bahena Attending Provider OJ Aguero Attending Provider MD Jelly Chery Primary Care Provider [phone] KRYSTAL Guerrier Attending Provider [phone] Risaliti, Susie Admitting Unavailable Risaliti, Susie Attending Unavailable Miri, Jelly Primary Care Unavailable Fareed, Georgie Wills Admitting Unavailable Georgie Guerrier Attending Unavailable Belia Aguero Admitting Unavailable Belia Aguero Attending Unavailable Miri, Jelly Primary Care Unavailable Taqueria, Simone Admitting Unavailable Taqueria, Simone Attending Unavailable Miri, Jelly Primary Care Unavailable Robyn, Simone Admitting Unavailable Robyn, Simone Attending Unavailable Jelly Chrey Primary Care Unavailable MIRI, JELLY Primary Care Unavailable JELLY CHERY Primary Care Physician Kirill, Astrleona H Attending Unavailable Hajdari, Astrit H Attending Unavailable Roman Syed Attending Unavailable Hajessica, Astrit H Attending Unavailable DYAN LO Attending Unavailable PENG OLIVARES Referring Unavailable JAY, AMERICA Attending Unavailable VIELKA, DONOVAN Attending Unavailable JAY, AMERICA Attending Unavailable VIELKA, DONOVAN Attending Unavailable MATTI SIMS Attending Unavailable VIELKA, DONOVAN Attending Unavailable VIELKA, DONOVAN Attending Unavailable VIELKA, DONOVAN Attending Unavailable VIELKA, DONOVAN Attending Unavailable GABRIELA MONZON Attending Unavailable JELLY CHERY Attending Unavailable JAY, AMERICA Attending Unavailable VIELKA, DONOVAN Attending Unavailable VIELKA, DONOVAN Attending Unavailable VIELKA, DONOVAN Referring Unavailable PENG OLIVARES Attending Unavailable Allergies Allergy Classification Reported Allergen(s) Allergy Type Date of Onset Reaction(s) Facility Clavulanate (3 sources) Clavulanate; Translations: [clavulanic acid] Drug Allergy 4 Nausea, vomiting, diarrhea [facility] Penicillins (antibiotic) (7 sources) Penicillins; Translations: [Penicillins] Drug Allergy 1 vomiting, diarrhea, Nausea [facility] Unclassified (20 sources) Amoxicillin-Pot Clavulanate Propensity to adverse reactions to drug 1 Diarrhea [facility] (7 sources) Amoxicillin / Clavulanate; Translations: [amoxicillin-cl avulanate] Drug Allergy vomiting, diarrhea, rash [facility] (2 sources) Amoxicillin / Clavulanate; Translations: [Augmentin] Drug Allergy [facility] (1 source) Penicillin Drug Allergy [facility] (20 sources) Clavulanate Drug Allergy 3 GI intolerance [facility] (12 sources) Penicillins; Translations: [PENICILLINS] Allergy to substance 1 GI Upset, Rash [facility] (20 sources) Penicillin G sodium Allergy to substance 3 [facility] (7 sources) Amoxicillin Drug Allergy 4 vomiting, diarrhea [facility] Medications Current Medications Medication Drug Class(es) Dates [...] 04, 2018 12:00am December 18, 2018 12:55am aspirin 81 mg oral tablet (20 sources) Platelet Aggregation Inhibitor, Nonsteroidal Anti-inflammatory Drug BABY ASPIRIN PO Take 81 mg by mouth Active azelastine hydrochloride 0.137 mg/actuat metered dose nasal spray (8 sources) Histamine-1 Receptor Antagonist Start: azelastine (Astelin) 0.1 % nasal spray every 12 (twelve) hours 01/22/2024 Active bisacodyl 10 mg rectal suppository (1 source) Stimulant Laxative Start: End: bisacodyl (Dulcolax) 10 MG suppository Indications: Constipation, unspecified constipation type Insert 1 suppository (10 mg) into the rectum Daily for 10 days 12 suppository 03/24/2024 04/03/2024 Active cefdinir 300 mg oral capsule (1 source) Cephalosporin Antibacterial Start: take 1 capsule by mouth every twelve hours Cefdinir 300 MG 1 capsule Orally every 12 hrs for 10 day(s) Feb, Active cefuroxime 500 mg oral tablet (1 source) Cephalosporin Antibacterial Start: take 1 tablet by mouth twice daily Ceftin 500 MG 1 tablet Orally Twice a day for 10 day(s) Mar, Active cephalexin 500 mg oral capsule (20 sources) Cephalosporin Antibacterial Start: 023 take 1 capsule by mouth every twelve [...] 26, 2018 1:00am August 05, 2018 12:02am clindamycin 300 mg oral capsule (17 sources) Lincosamide Antibacterial Start: 09-07-2024 End: 09-17-2024 take 1 capsule by mouth in the morning, then take 1 capsule by mouth in the evening, then take 1 capsule by mouth at bedtime clindamycin (Cleocin) 300 MG capsule Indications: Third trimester , Positive culture findings in throat Take 1 capsule (300 mg) by mouth in the morning and 1 capsule (300 mg) in the evening and 1 capsule (300 mg) before bedtime. Do all this for 10 days. 30 capsule 09/07/2024 09/17/2024 Active Start: 12-04-2018 End: 12-18-2018 take 1 capsule by mouth three times daily Clindamycin Hcl (Cleocin Hcl) 300 mg Capsule Discontinued 300 MG PO Three times daily December 04, 2018 12:00am December 18, 2018 12:55am cyclobenzaprine hydrochloride 10 mg oral tablet (20 [...] 26, 2018 12:00am October 13, 2018 3:04am doxycycline hyclate 100 mg oral capsule (20 sources) Tetracycline-class Drug Start: 02-04-2024 take 1 capsule by mouth in the morning doxycycline (Vibramycin) 100 MG capsule Take 100 mg by mouth in the morning and 100 mg before bedtime. 02/04/2024 Active Start: 08-07-2023 End: 09-29-2023 take 100 mg by mouth twice daily Doxycycline Hyclate Discontinued 100 MG PO Twice daily 60 September 07, 2023 2:39pm September 29, 2023 10:45am Start: 11-11-2019 End: 02-15-2020 take 100 mg by mouth twice daily Doxycycline Hyclate Discontinued 100 MG PO Twice daily 20 November 11, 2019 12:00am February 15, 2020 10:23pm DULoxetine 60 mg delayed release oral capsule [...] 2023 10:14am take 1 capsule by mo [facility] every twenty-four hours Cymbalta 30 MG 1 capsule Orally Once a day Active Comment on above: Take 30 mg by mouth. fluconazole 150 mg oral tablet (9 sources) Azole Antifungal Start: End: take 1 tablet by mouth once, then take 1 tablet by mouth once fluconazole (Diflucan) 150 MG tablet Indications: Yeast infection Take 1 tablet (150 mg) by mouth 1 (one) time for 1 dose This is a 1 time dose, take single tablet by mouth. 1 tablet 09/29/2024 09/29/2024 Active Start: 09-08-2024 End: 09-08-2024 take 1 tablet by mouth once, then take 1 tablet by mouth once fluconazole (Diflucan) 150 MG tablet Indications: Yeast infection Take 1 tablet (150 mg) by mouth 1 (one) time for 1 dose This is a 1 time dose, take single tablet by mouth. 1 tablet 09/08/2024 09/08/2024 Start: 10-30-2023 End: 02-04-2024 Fluconazole Discontinued 150 MG PO Q3D 3 October 30, 2023 12:00am February 04, 2024 1:27pm fluticasone propionate 0.05 mg/actuat metered dose nasal spray (20 sources) Corticosteroid Start: 04-30-2023 take 1 spray(s) nasal route in the morning fluticasone (Flonase) 50 MCG/ACT nasal spray Indications: Allergic rhinitis, unspecified seasonality, unspecified trigger Administer 1 spray into each nostril in the morning. 16 g 3 04/30/2023 Active Start: 01-11-2023 End: 07-27-2023 Fluticasone Propionate (Flon ase) 50 mcg/actuation [place],Suspension Discontinued 2 SPRAY INTRANASAL Daily January 11, [...] day Active nystatin 100 unt/mg topical powder (20 sources) Polyene Antifungal Start: 09-29-2024 End: 09-29-2025 nystatin (Mycostatin) 524101 UNIT/GM powder Indications: Yeast infection Apply topically in the morning and before bedtime. 60 g 09/29/2024 09/29/2025 Active Start: 09-05-2024 End: 09-15-2024 nystatin (Mycostatin) 721252 UNIT/ML suspension Indications: Coated tongue Take 6 mL (600,000 Units) by mouth in the morning and 6 mL (600,000 Units) at noon and 6 mL (600,000 Units) in the evening and 6 mL (600,000 Units) before bedtime. Do all this for 10 days. Swish and spit. Retain in mouth as long as possible. 240 mL 09/05/2024 09/15/2024 Active Start: 10-30-2023 End: 03-10-2024 nystatin (Mycostatin) 063882 UNIT/GM powder Twice daily 10/30/2023 03/10/2024 Discontinued Start: 10-30-2023 End: 02-04-2024 Nystatin Discontinued 1 APPL IC TOPICAL Twice daily 30 7 October 30, 2023 12:00am February 04, 2024 1:27pm Start: 09-29-2023 End: 02-04-2024 Nystatin Discontinued TOPICA L September 29, 2023 12:00am February 04, 2024 1:27pm Start: 10-17-2022 Nystatin 87314 0 UNIT/GM 1 application Externally Twice a day September, Active nystatin 405773 unt/ml / triamcinolone acetonide 1 mg/ml topical [...] 23January 11, 2023 July 27, 2023 3:06pm [id number] 200 actuat albuterol 0.09 mg/actuat metered dose [...] 16, 2019 12:00am March 03, 2019 9:46pm Dexamethasone (4 sources) Corticosteroid Start: 05-21-2022 DEXAMETHASONE Apr, 10 mg 12 hr dextromethorphan polistirex 6 mg/ml extended release suspension (11 sources) Uncompetitive T-crmasy-R-aspartat e Receptor Antagonist, Sigma-1 Agonist Start: 03-03-2019 [...] 16, 2018 12:00am October 23, 2018 1:57am escitalopram 20 mg oral tablet (11 sources) [...] as needed Orally Once a day Not-Taking FLUoxetine 20 mg oral capsule (11 sources) Serotonin Reuptake Inhibitor Start: 03-26-2017 End: 04-20-2017 Fluoxetine Discontinued March 26, 2017 12:00am April 21, 2017 12:49am ibuprofen 600 mg oral tablet (20 sources) Nonsteroidal Anti-inflammatory Drug Start: 03-01-2021 End: 01-11-2023 take 600 mg by mouth every eight hours Ibuprofen Discontinued 600 MG PO Q8H March 01, 2021 12:00January 11, 2023 10:30pm Start: 11-21-2020 End: 03-01-2021 [...] [Generalized anxiety disorder] Onset: 3 10-18-2022 Chronic Diseases of mouth; excluding dental (2 sources) Coating of mucous membrane of tongue; Translations: [Hypertrophy of tongue papillae] 09-05-2024 Episodic Disorders of teeth and jaw (11 sources) [...] moderate ] Onset: 3 01-19-2017 Chronic Mycoses (12 sources) Candidiasis of skin and nail; Translations: [Candidiasis of skin] Episodic Nausea and vomiting (20 sources) Nausea, vomiting and diarrhea; Translations: [Nausea with vomiting, unspecified] 04-02-2019 Episodic Other complications of (4 sources) size does not accord with dates; [...] of bilirubin metabolism] Onset: 3 Chronic Other conditions (2 sources) Exceptionally large at ; Translations: [Exceptionally large baby] 09-29-2024 Episodic Other and delivery including normal (20 sources) ; Translations: [Encounter for supervision of [...] Translations: [Acquired absence of other organs] Onset: Episodic Residual codes; unclassified (2 sources) Gestation [...] [28 weeks gestation of ] 07-27-2024 Episodic Residual codes; unclassified (2 sources) Gestation period, 32 weeks; Translations: [32 weeks gestation of ] 08-25-2024 Episodic Residual codes; unclassified (4 sources) Gestation period, 34 weeks; Translations: [34 weeks gestation of ] 09-05-2024 Episodic Residual codes; unclassified (2 sources) Gestation period, 35 weeks; Translations: [35 weeks gestation of ] 09-15-2024 Episodic Residual codes; unclassified (2 sources) Gestation period, 36 weeks; Translations: [36 weeks gestation of ] 09-22-2024 Episodic Residual codes; unclassified (2 sources) Gestation period, 37 weeks; Translations: [37 weeks gestation of ] 09-29-2024 Episodic Residual codes; unclassified (2 sources) Gestation period, 38 weeks; Translations: [38 weeks gestation of ] 10-05-2024 Episodic Skin and subcutaneous tissue infections (1 [...] Translations: [Otalgia, right ear] Onset: 3 Unclassified (20 sources) OB Reminders Onset: 5 06-16-2024 Urinary [...] Test Name Value Interpretation Reference Range Facility OB BPP W NON-STRESS on 10-08-2024 [place] [address] Ultrasound Report Signed Patient: DEVORAH SHELTON MR#: [id number] : 1995 Acct:[id number] Age/Sex: 29 / F ADM Date: 10/07/24 Loc: Attending Dr: Donovan Vora D.O. Ordering Physician: Donovan Vora D.O. Date of Service: 10/07/24 Procedure(s): US OB BPP w non-stress Accession Number(s): [id number] cc: Donovan Vora D.O.; JELLY CHERY [address] [address] Patient Name: DEVORAH SHELTON MRN: [id number] date: 1995 Sex: F Assigned Patient Location: [facility] Current Patient Location: Accession/Order Number: [id number] Exam Date: 10/08/2024 10:48 Report Date: 10/08/2024 10:49 At the request of: DONOVAN VORA DO Procedure: US OB BPP w non-stress Ultrasound obstetrical biophysical profile HISTORY: Macrosomia There is adequate breathing movement, gross body movement, tone and amniotic fluid volume with a total score of 8 out of 8. The amniotic fluid index is 11.4 cm within normal limits. The heart rate is 133 bpm. US/US OB BPP w non-stress IMPRESSION: Adequate ultrasound biophysical profile. Impression dictated by: Bishnu Hernandez M.D. 10/08/2024 10:49 AM Dictation Location: PhoneTell Electronically authenticated by: [id number] Y Date: 10/08/2024 10:49 Dictated By: Bishnu Hernandez D.O. Signed By: 10/08/24 1052 DD/ 1049 TD/TT: Litigation Paralegal: [facility] Radiology, Radiologi MD rod - 10/08/2024 [place] [address] Ultrasound Report Signed Patient: DEVORAH SHELTON MR#: [id number] : 1995 Acct:[id number] Age/Sex: 29 / F ADM Date: 10/07/24 Loc: US Attending Dr: Donovan Vora D.O. Ordering Physician: Donovan Vora D.O. Date of Service: 10/07/24 Procedure(s): US OB BPP w non-stress Accession Number(s): [id number] cc: Donovan Vora D.O.; JELLY CHERY [place] [id number] Patient Name: DEVORAH SHELTON MRN: [facility]:[id number] date: 1995 Sex: F Assigned Patient Location: [facility] Current Patient Location: Accession/Order Number: [id number] Exam Date: 10/08/2024 10:48 Report Date: 10/08/2024 10:49 At the request of: DONOVAN VORA DO Procedure: US OB BPP w non-stress Ultrasound obstetrical biophysical profile HISTORY: Macrosomia There is adequate breathing movement, gross body movement, tone and amniotic fluid volume with a total score of 8 out of 8. The amniotic fluid index is 11.4 cm within normal limits. The heart rate is 133 bpm. US/US OB BPP w non-stress IMPRESSION: Adequate ultrasound biophysical profile. Impression dictated by: Bishnu Hernandez M.D. 10/08/2024 10:49 AM Dictation Location: PhoneTell Electronically authenticated by: [id number] Y Date: 10/08/2024 10:49 Dictated By: Bishnu Hernandez D.O. Signed By: 10/08/24 1052 DD/ 1049 TD/TT: Litigation Paralegal: [facility] Radiology Study observation (narrative) [facility] US OB BPP W NON-STRESS Ordered By: Radiologist Radiology on 10-08-2024 [facility] Work Phone: No Panel InformationOrdered By: Radiologist Radiology on 10-03-2024 [facility] Work Phone: No Panel Informationon 10-03 Radiology Study observation (narrative) [facility] US OB BPP W NON-STRESS on 10-03-2024 [place] [address] Ultrasound Report Signed Patient: DEVORAH SHELTON MR#: [id number] : 1995 Acct:[id number] Age/Sex: 29 / F ADM Date: 09/30/24 Loc: US Attending Dr: Donovan Vora D.O. Ordering Physician: Donovan Vora D.O. Date of Service: 09/30/24 Procedure(s): US OB BPP w non-stress Accession Number(s): [id number] cc: Donovan Vora D.O.; JELLY CHERY [place] [address] Patient Name: DEVORAH SHELTON MRN: [id number] date: 1995 Sex: F Assigned Patient Location: US Current Patient Location: [facility] Accession/Order Number: [id number] Exam Date: 10/03/2024 09:34 Report Date: 10/03/2024 09:41 At the request of: DONOVAN VORA DO Procedure: US OB BPP w non-stress CLINICAL DATA: Macrosomia ULTRASOUND OB GROWTH COMPARISON: 07/22/2024 There is a single live intrauterine gestation in cephalic presentation. There is cardiac and somatic activity with heart rate of 126 bpm. The amniotic fluid index measures 18.2 cm which is in upper normal range. The following measurements were obtained: Biparietal diameter 9.2 cm 37 weeks 3 days 62% Head circumference 33.9 cm 38 weeks 6 days 55% Abdominal circumference 34.6 cm 38 weeks 3 days 82% Femur length 7.1 cm 36 weeks 4 days 21% The composite ultrasound age based on these measurements is 37 weeks 6 days +/- 2 weeks 5 days. The estimated weight is 7 lbs. 6 oz. +/- 1 lb. 2 oz. (64%). US/US OB BPP w non-stress IMPRESSION: SINGLE LIVE INTRAUTERINE GESTATION WITH ULTRASOUND AGE OF 37 WEEKS 6 DAYS. APPROPRIATE INTERVAL GROWTH. BIOPHYSICAL PROFILE: COMPARISON: 09/23/2024 FINDINGS: TONE: 1 or more episodes of activity extension and flexion of extremity or opening and closing of the hand [Y] 2/2 GROSS BODY MOVEMENTS: 3 or more discrete body or limb movements [Y] 2/2 BREATHING MOVEMENTS: 1 or more episodes of breathing lasting at least 30 seconds [Y] 2/2 MINNIE: A single deepest vertical pocket of amniotic fluid greater than 2 cm [Y] 2/2 MINNIE: 18.2 cm Total score: 8/8 IMPRESSION: NORMAL BIOPHYSICAL PROFILE Impression dictated by: Liliana Goyal M.D. 10/03/2024 9:41 AM Dictation Location: [place] [address] Electronically authenticated by: [id number] Y Date: 10/03/2024 09:41 Dictated By: Liliana Goyal M.D. Signed By: 10/03/24 0943 DD/ 0 TD/TT: Litigation Paralegal: [facility] Radiology, Radiologi MD rod - 10/03/2024 [place] [address] Ultrasound Report Signed Patient: DEVORAH SHELTON MR#: [id number] : 1995 Acct:[id number] Age/Sex: 29 / F ADM Date: 09/30/24 Loc: US Attending Dr: Donovan Vora D.O. Ordering Physician: Donovan Vora D.O. Date of Service: 09/30/24 Procedure(s): US OB BPP w non-stress Accession Number(s): [id number] cc: Donovan Vora D.O.; JELLY CHERY [place] [address] Patient Name: DEVORAH SHELTON MRN: [id number] date: 1995 Sex: F Assigned Patient Location: Current Patient Location: [facility] Accession/Order Number: [id number] Exam Date: 10/03/2024 09:34 Report Date: 10/03/2024 09:41 At the request of: DONOVAN VORA DO Procedure: US OB BPP w non-stress CLINICAL DATA: Macrosomia ULTRASOUND OB GROWTH COMPARISON: 07/22/2024 There is a single live intrauterine gestation in cephalic presentation. There is cardiac and somatic activity with heart rate of 126 bpm. The amniotic fluid index measures 18.2 cm which is in upper normal range. The following measurements were obtained: Biparietal diameter 9.2 cm 37 weeks 3 days 62% Head circumference 33.9 cm 38 weeks 6 days 55% Abdominal circumference 34.6 cm 38 weeks 3 days 82% Femur length 7.1 cm 36 weeks 4 days 21% The composite ultrasound age based on these measurements is 37 weeks 6 days +/- 2 weeks 5 days. The estimated weight is 7 lbs. 6 oz. +/- 1 lb. 2 oz. (64%). US/US OB BPP w non-stress IMPRESSION: SINGLE LIVE INTRAUTERINE GESTATION WITH ULTRASOUND AGE OF 37 WEEKS 6 DAYS. APPROPRIATE INTERVAL GROWTH. BIOPHYSICAL PROFILE: COMPARISON: 09/23/2024 FINDINGS: TONE: 1 or more episodes of activity extension and flexion of extremity or opening and closing of the hand [Y] 2/2 GROSS BODY MOVEMENTS: 3 or more discrete body or limb movements [Y] 2/2 BREATHING MOVEMENTS: 1 or more episodes of breathing lasting at least 30 seconds [Y] 2/2 MINNIE: A single deepest vertical pocket of amniotic fluid greater than 2 cm [Y] 2/2 MINNIE: 18.2 cm Total score: 8/8 IMPRESSION: NORMAL BIOPHYSICAL PROFILE Impression dictated by: Liliana Goyal M.D. 10/03/2024 9:41 AM Dictation Location: [place] [address] Electronically authenticated by: [id number] Y Date: 10/03/2024 09:41 Dictated By: Liliana Goyal M.D. Signed By: 10/03/24942 DD/ 0 TD/TT: Litigation Paralegal: [facility] 10-03-2024 [place] [address] Ultrasound Report Signed Patient: DEVORAH SHELTON MR#: [id number] : 1995 Acct:[id number] Age/Sex: 29 / F ADM Date: 09/30/24 Loc: US Attending Dr: Donovan Vora D.O. Ordering Physician: Donovan Vora D.O. Date of Service: 09/30/24 Procedure(s): US OB growth Accession Number(s): [id number] cc: Donovan Vora D.O.; JELLY CHERY [place] [id number] Patient Name: DEVORAH SHELTON MRN: [id number] date: 1995 Sex: F Assigned Patient Location: [facility] Current Patient Location: [facility] Accession/Order Number: [id number] Exam Date: 10/03/2024 09:34 Report Date: 10/03/2024 09:41 At the request of: DONOVAN VORA DO Procedure: US OB BPP w non-stress CLINICAL DATA: Macrosomia ULTRASOUND OB GROWTH COMPARISON: 07/22/2024 There is a single live intrauterine gestation in cephalic presentation. There is cardiac and somatic activity with heart rate of 126 bpm. The amniotic fluid index measures 18.2 cm which is in upper normal range. The following measurements were obtained: Biparietal diameter 9.2 cm 37 weeks 3 days 62% Head circumference 33.9 cm 38 weeks 6 days 55% Abdominal circumference 34.6 cm 38 weeks 3 days 82% Femur length 7.1 cm 36 weeks 4 days 21% The composite ultrasound age based on these measurements is 37 weeks 6 days +/- 2 weeks 5 days. The estimated weight is 7 lbs. 6 oz. +/- 1 lb. 2 oz. (64%). US/US OB growth IMPRESSION: SINGLE LIVE INTRAUTERINE GESTATION WITH ULTRASOUND AGE OF 37 WEEKS 6 DAYS. APPROPRIATE INTERVAL GROWTH. BIOPHYSICAL PROFILE: COMPARISON: 09/23/2024 FINDINGS: TONE: 1 or more episodes of activity extension and flexion of extremity or opening and closing of the hand [Y] 2/2 GROSS BODY MOVEMENTS: 3 or more discrete body or limb movements [Y] 2/2 BREATHING MOVEMENTS: 1 or more episodes of breathing lasting at least 30 seconds [Y] 2/2 MINNIE: A single deepest vertical pocket of amniotic fluid greater than 2 cm [Y] 2/2 MINNIE: 18.2 cm Total score: 8/8 IMPRESSION: NORMAL BIOPHYSICAL PROFILE Impression dictated by: Liliana Goyal M.D. 10/03/2024 9:41 AM Dictation Location: [place] [address] Electronically authenticated by: [id number] Y Date: 10/03/2024 09:41 Dictated By: Liliana oGyal M.D. Signed By: 10/03/24 0943 DD/ 0941 TD/TT: Litigation Paralegal: [facility] Radiology, Radiologi MD rod - 10/03/2024 [place] [address] Ultrasound Report Signed Patient: DEVORAH SHELTON MR#: [id number] : 1995 Acct:[id number] Age/Sex: 29 / F ADM Date: 09/30/24 Loc: US Attending Dr: Donovan Vora D.O. Ordering Physician: Ivelka,Donovan D.O. Date of Service: 09/30/24 Procedure(s): US OB growth Accession Number(s): [id number] cc: Donovan Vora D.O.; JELLY CHERY [address] [address] Patient Name: DEVORAH SHELTON MRN: [id number] date: 1995 Sex: F Assigned Patient Location: [facility] Current Patient Location: [facility] Accession/Order Number: [id number] Exam Date: 10/03/2024 09:34 Report Date: 10/03/2024 09:41 At the request of: DONOVAN VORA DO Procedure: US OB BPP w non-stress CLINICAL DATA: Macrosomia ULTRASOUND OB GROWTH COMPARISON: 07/22/2024 There is a single live intrauterine gestation in cephalic presentation. There is cardiac and somatic activity with heart rate of 126 bpm. The amniotic fluid index measures 18.2 cm which is in upper normal range. The following measurements were obtained: Biparietal diameter 9.2 cm 37 weeks 3 days 62% Head circumference 33.9 cm 38 weeks 6 days 55% Abdominal circumference 34.6 cm 38 weeks 3 days 82% Femur length 7.1 cm 36 weeks 4 days 21% The composite ultrasound age based on these measurements is 37 weeks 6 days +/- 2 weeks 5 days. The estimated weight is 7 lbs. 6 oz. +/- 1 lb. 2 oz. (64%). US/US OB growth IMPRESSION: SINGLE LIVE INTRAUTERINE GESTATION WITH ULTRASOUND AGE OF 37 WEEKS 6 DAYS. APPROPRIATE INTERVAL GROWTH. BIOPHYSICAL PROFILE: COMPARISON: 09/23/2024 FINDINGS: TONE: 1 or more episodes of activity extension and flexion of extremity or opening and closing of the hand [Y] 2/2 GROSS BODY MOVEMENTS: 3 or more discrete body or limb movements [Y] 2/2 BREATHING MOVEMENTS: 1 or more episodes of breathing lasting at least 30 seconds [Y] 2/2 MINNIE: A single deepest vertical pocket of amniotic fluid greater than 2 cm [Y] 2/2 MINNIE: 18.2 cm Total score: 8/8 IMPRESSION: NORMAL BIOPHYSICAL PROFILE Impression dictated by: Liliana Goyal M.D. 10/03/2024 9:41 AM Dictation Location: [place] [address] Electronically authenticated by: [id number] Y Date: 10/03/2024 09:41 Dictated By: Liliana Goyal M.D. Signed By: 10/03/2443 DD/ 0 TD/TT: Litigation Paralegal: [facility] Urinalysis macro (dipstick) panel (U)on 09-29-2024 Bilirubin, UA Negative Negative - 4(70) +++ mg/dL [facility] Blood, UA Negative Negative - 50 Raúl/mcL [facility] Clarity, UA Clear [facility] Color, UA Yellow [facility] Glucose, UA Negative Negative - 2000(110) ++++ mg/dL [facility] Interpretation and review of laboratory results Normal [facility] Ketones, UA Negative Negative - 160(16) ++++ mg/dL [facility] Leukocytes, UA Negative Negative - 500+++ Zainab/mcL [facility] Nitrite, UA Negative Negative - Positive [facility] pH, UA 6 5 - 9 [facility] Protein, UA Negative Negative - 2000(20) ++++ mg/dL [facility] Spec Grav, UA 1.03 1 - 1.03 [facility] Urobilinogen, UA 0.2 0.2 - 12 mg/dL [facility] US OB BPP W NON-STRESS on 09-26-2024 [place] [address] Ultrasound Report Signed Patient: DEVORAH SHELTON MR#: [id number] : 1995 Acct:[id number] Age/Sex: 29 / F ADM Date: Loc: [facility] [address]: Donovan Vora D.O. Ordering Physician: Donovan Vora D.O. Date of Service: 09/23/24 Procedure(s): US OB BPP w non-stress Accession Number(s): [id number] cc: Donovan Vora D.O.; JELLY CHERY [place] [id number] Patient Name: DEVORAH SHELTON MRN: [id number] date: 1995 Sex: F Assigned Patient Location: [facility] Current Patient Location: [facility] Accession/Order Number: [id number] Exam Date: 09/25/2024 20:14 Report Date: 09/25/2024 20:24 At the request of: DONOVAN VORA DO Procedure: US OB BPP w non-stress Biophysical profile. Reason for exam: Decreased movement. COMPARISON: None. TECHNIQUE: Transabdominal imaging of the gravid uterus was obtained. 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 MINNIE is normal at 12.5 cm. heart rate 139 bpm. US/US OB BPP w non-stress IMPRESSION: BPP 8 out of 8. Impression dictated by: José Miguel Fuentes Jr., D.O. 09/25/2024 8:24 PM Dictation Location: [place] [address] Electronically authenticated by: [id number] Y Date: 09/25/2024 20:24 Dictated By: José Miguel Fuentes M.D. Signed By: 09/26/241122 DD/ 23 TD/TT: Litigation Paralegal: [facility] RadiologyKemalogsarah velasco MD - 09/26/2024 [place] [address] Ultrasound Report Signed Patient: DEVORAH SHELTON MR#: [id number] : 1995 Acct:[id number] Age/Sex: 29 / F ADM Date: Loc: [facility] Attending Dr: Donovan Vora D.O. Ordering Physician: Donovan Vora D.O. Date of Service: 09/23/24 Procedure(s): US OB BPP w non-stress Accession Number(s): [id number] cc: Donovan Vora D.O.; JELLY CHERY [place] [id number] Patient Name: DEVORAH SHELTON MRN: [facility]:[id number] date: 1995 Sex: F Assigned Patient Location: [facility] Current Patient Location: [facility] Accession/Order Number: [id number] Exam Date: 09/25/2024 20:14 Report Date: 09/25/2024 20:24 At the request of: DONOVAN VORA DO Procedure: US OB BPP w non-stress Biophysical profile. Reason for exam: Decreased movement. COMPARISON: None. TECHNIQUE: Transabdominal imaging of the gravid uterus was obtained. 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 MINNIE is normal at 12.5 cm. heart rate 139 bpm. US/US OB BPP w non-stress IMPRESSION: BPP 8 out of 8. Impression dictated by: José Miguel Fuentes Jr., D.O. 09/25/2024 8:24 PM Dictation Location: [place] [address] Electronically authenticated by: [id number] Y Date: 09/25/2024 20:24 Dictated By: José Miguel Fuentes M.D. Signed By: 09/26/24 1123 DD/ 23 TD/TT: Litigation Paralegal: [facility] US OB BPP W NON-STRESS Ordered By: Radiologist Radiology on 09-26-2024 [facility] Work Phone: US OB BPP W NON-STRESS on 09-25-2024 Radiology Study observation (narrative) [facility] UA (CLEAN/CATCH) READING AIDE/LIBRADO RO IF IND.on 09-23-2024 BILIRUBIN URINE Negative NEGATIVE [facility] BLOOD URINE Negative NEGATIVE [facility] Clarity (U) CLEAR CLEAR [facility] Color (U) YELLOW YELLOW [facility] GLUCOSE URINE UA Negative NEGATIVE mg/dL [facility] Interpretation and review of laboratory results Abnormal [facility] Ketones Ql (U) TRACE Abnormal NEGATIVE mg/dL [facility] Leukocyte esterase Test strip Ql (U) Negative [facility]IVE [facility] NITRITE URINE Negative NEGATIVE [facility] pH (U) 6.5 [pH] 5.0 - 9.0 [facility] PROTEIN URINE TRACE NEG/TRACE mg/dL [facility] SPECIFIC GRAVITY URINE 1.025 1.005 - 1.025 [facility] URINE MICROSCOPIC INDICATED NO [facility] UROBILINOGEN URINE 1.0 EU/dL 0.2 - 1.0 EU/dL [facility] STREP GP B CULTURE+RFLXon STREP GP B CULTURE+RFLX SEE SCANNED REPORT [facility]inal[facility] macro (dipstick) panel (U)on 09-22-2024 Bilirubin, UA Negative Negative - 4(70) +++ mg/dL [facility] Blood, UA Negative Negative - 50 Raúl/mcL [facility] Clarity, UA Clear [facility] Color, UA Yellow [facility] Glucose, UA Negative Negative - 2000(110) ++++ mg/dL [facility] Interpretation and review of laboratory results Abnormal [facility] Ketones, UA Negative Negative - 160(16) ++++ mg/dL [facility] Leukocytes, UA Trace Negative - 500+++ Zainab/mcL [facility] Nitrite, UA Negative Negative - Positive [facility] pH, UA 6 5 - 9 [facility] Protein, UA Negative Negative - 2000(20) ++++ mg/dL [facility] Spec Grav, UA 1.02 1 - 1.03 [facility] Urobilinogen, UA 0.2 0.2 - 12 mg/dL [facility] US OB FOLLOW UP TRANSABDOMIN AL APPROACHon 09-19-2024 US OB FOLLOW UP TRANSABDOMINAL APPROACH TITLE OF EXAM: OB Ultrasound: REASON FOR EXAM: Large for gestational age. COMPARISON: 08/09/2024 TECHNIQUE: Grayscale and M-mode Doppler imaging is performed. FINDINGS: heart rate: 142 bpm MINNIE: 14.2 cm (7.7-24.8) BPD: 8.8 cm HC: 32.9 cm AC: 33.7 cm FL: 7.1 cm GA for sonogram: 36.4 wk (34.1-38.7) DIANA: 10/15/2024 Weight Estimate: Weight: 3103 gm / 6 lbs, 13 oz (9154-9097 gm) [place] Normal: 2863 gm (8403-9297 gm) [place] Wt%: 74% for 26.2 wks Limited for: Growth Presentation: Cephalic Amniotic Fluid: 14.2 cm Between 5th and 95 percentile. Largest Fluid Pocket: 5.6 cm Heart Rate: 142 bpm Somatic Motion: Yes IMPRESSION: Normal growth. AC 91%. Dictated and transcribed 09/20/24/dpd This report has been electronically signed and approved by the interpreting radiologist. This report is generated using voice recognition reporting (Gracious Eloise). On occasion, Zingayacribe erroneously drops words from the report or replaces the spoken word with a similar sounding word. Please call with any questions/concerns regarding the report. Normal Not Available Comment on above: Order Comment: US OB SCAN FOR GROWTH Estimated Date of Delivery: 10/15/24 Gestational Age as of 09/15/2024: 35w5d Urinalysis macro (dipstick) panel (U)on 09-15-2024 Bilirubin, UA Negative Negative - 4(70) +++ mg/dL [facility] Blood, UA Negative Negative - 50 Raúl/mcL [facility] Clarity, UA Clear [facility] Color, UA Yellow [facility] Glucose, UA Negative Negative - 1999(110) ++++ mg/dL [facility] Interpretation and review of laboratory results Abnormal [facility] Ketones, UA Negative Negative - 160(16) ++++ mg/dL [facility] Leukocytes, UA Negative Negative - 500+++ Zainab/mcL [facility] Nitrite, UA Negative Negative - Positive [facility] pH, UA 6 5 - 9 [facility] Protein, UA Positive Negative - 1999(20) ++++ mg/dL [facility] Comment on above: trace Spec Grav, UA 1.025 1 - 1.03 [facility] Urobilinogen, UA 0.2 0.2 - 12 mg/dL [facility] Urinalysis macro (dipstick) panel (U)on 09-08-2024 Bilirubin, UA Negative Negative - 4(70) +++ mg/dL [facility] Blood, UA Negative Negative - 50 Raúl/mcL [facility] Healthcare Clarity, UA Clear [facility] Color, UA Yellow [facility] Glucose, UA Negative Negative - 1999(110) ++++ mg/dL [facility] Interpretation and review of laboratory results Normal [facility] Ketones, UA Negative Negative - 160(16) ++++ mg/dL [facility] Leukocytes, UA Negative Negative - 500+++ Zainab/mcL [facility] Nitrite, UA Negative Negative - Positive [facility] pH, UA 5.5 5 - 9 [facility] Protein, UA Negative Negative - 1999(20) ++++ mg/dL [facility] Spec Grav, UA 1.03 1 - 1.03 [facility] Urobilinogen, UA 0.2 0.2 - 12 mg/dL [facility] Glucose (Bld) [Mass/Vol]on 0 09-05-2024 Glucose [Mass/Vol] 96 mg/dL [facility] Interpretation and review of laboratory results Normal [facility] Laboratory - Microbiology an d Antimicrobial susceptibilityon 09-05-2024 SARS-CoV-2 (COVID-19) RNA CRYSTAL+probe Ql (Unsp spec) Negative Negative [facility] No Panel Informationon 09-05 Interpretation and review of laboratory results Normal [facility] INFLUENZA A Negative Negative [facility] INFLUENZA B Negative Negative [facility] Interpretation and review of laboratory results Normal [facility] S. pyogenes DNA CRYSTAL+probe No m (Unsp spec)on 09-05-2024 Interpretation and review of laboratory results Normal [facility] RESULT Negative Negative [facility] Urinalysis macro (dipstick) panel (U)on 08-25-2024 Bilirubin, UA Negative Negative - 4(70) +++ mg/dL [facility] Blood, UA Negative Negative - 50 Raúl/mcL [facility] Clarity, UA Clear [facility] Color, UA Yellow [facility] Glucose, UA Negative Negative - 2000(110) ++++ mg/dL [facility] Interpretation and review of laboratory results Normal [facility] Ketones, UA Negative Negative - 160(16) ++++ mg/dL [facility] Leukocytes, UA Negative Negative - 500+++ Zainab/mcL [facility] Nitrite, UA Negative Negative - Positive [facility] pH, UA 7 5 - 9 [facility] Protein, UA Negative Negative - 2000(20) ++++ mg/dL [facility] Spec Grav, UA 1.01 1 - 1.03 [facility] Urobilinogen, UA 0.2 0.2 - 12 mg/dL [facility] US OB FOLLOW UP TRANSABDOMIN AL APPROACHon 08-09-2024 US OB FOLLOW UP TRANSABDOMINAL APPROACH EXAM: US OB FOLLOW UP TRANSABDOMINAL APPROACH HISTORY: Inconsistent size. COMPARISON: Ob ultrasound 07/22/2024. TECHNIQUE: Two-dimensional transabdominal grayscale ultrasound imaging of the pelvis was performed. FINDINGS: Gestation: Single Presentation: Cephalic Cardiac Activity: 143 beats per minute Placental Location: Anterior with no sonographic abnormalities identified. Cervical canal: Not visualized Amniotic Fluid Index: 17 cm MEASUREMENTS: BPD: 7.8 cm EGA: 31 weeks 1 days HC: 28.6 cm EGA: 31 weeks 3 days AC: 27.2 cm EGA: 31 weeks 2 days FL: 5.7 cm EGA: 29 weeks 5 days HC/AC Ratio: 1.05 The gestational age by today's ultrasound is 30 weeks 6 days (+/- 15 days gestation). Estimated Weight: 1638 grams, +/- 246 grams ( 3 lb 10 oz). Weight Percentile for gestational age: 50 % IMPRESSION: 1. Single, live intrauterine gestation 30 weeks, 3 days by LMP. Today's ultrasound measurements correlate with a gestational age of 30 weeks 6 days. Estimated weight is 1638 grams, +/- 246 grams ( 3 lb 10 oz) which correlates to 50 %. DIANA is 10/12/2024. Electronically Signed:Electronically signed by NANDO PRITCHARD II, MD, PHD at 11-Aug-2024 08:43:14 AM [facility] Normal Not Available Comment on above: Order Comment: US OB SCAN FOR GROWTH Estimated Date of Delivery: 10/15/24 Gestational Age as of 07/27/2024: 28w4d Urinalysis macro (dipstick) panel (U)on 07-27-2024 Bilirubin, UA Negative Negative - 4(70) +++ mg/dL [facility] Blood, UA Negative Negative - 50 Raúl/mcL [facility] Clarity, UA Clear [facility] Color, UA Yellow [facility] Glucose, UA Negative Negative - 2000(110) ++++ mg/dL [facility] Interpretation and review of laboratory results Abnormal [facility] Ketones, UA Negative Negative - 160(16) ++++ mg/dL [facility] Leukocytes, UA Trace Negative - 500+++ Zainab/mcL [facility] Nitrite, UA Negative Negative - Positive [facility] pH, UA 6 5 - 9 [facility] Protein, UA Trace Negative - 2000(20) ++++ mg/dL [facility] Spec Grav, UA 1.025 1 - 1.03 [facility] Urobilinogen, UA 0.2 0.2 - 12 mg/dL [facility] INCOMPLETE ANATOMYon 0 3-01-2025 [place] [address] Ultrasound Report Signed Patient: DEVORAH SHELTON MR#: [id number] : 1995 Acct:[id number] Age/Sex: 29 / F ADM Date: 07/22/24 Loc: US Attending Dr: Donovan Vora D.O. Ordering Physician: Donovan Vora D.O. Date of Service: 07/22/24 Procedure(s): US OB incomplete anatomy Accession Number(s): [id number] cc: Donovan Vora D.O.; JELLY CHERY [place] [address] Patient Name: DEVORAH SHELTON MRN: [facility]:[id number] date: 1995 Sex: F Assigned Patient Location: US Current Patient Location: Accession/Order Number: [id number] Exam Date: 07/23/2024 09:13 Report Date: 07/23/2024 [...] Hawa Barfield M.D.07/23/2024 9:15 AM Dictation Location: [place] [address] Electronically authenticated by: [id number] Y Date: 07/23/2024 09:15 Dictated By: Hawa Barfield M.D. Signed By: 07/23/24917 DD/ 4 TD/TT: Litigation Paralegal: [facility] Radiology, Radiologi MD rod - 07/23/[address] [address] Ultrasound Report Signed Patient: DEVORAH SHELTON MR#: [id number] : 1995 Acct:[id number] Age/Sex: 29 / F ADM Date: 07/22/24 Loc: US Attending Dr: Donovan Vora D.O. Ordering Physician: Donovan Vora D.O. Date of Service: 07/22/24 Procedure(s): US OB incomplete anatomy Accession Number(s): [id number] cc: Donovan Vora D.O.; JELLY CHERY [place] [address] Patient Name: DEVORAH SHELTON MRN: [id number] date: 1995 Sex: F Assigned Patient Location: US Current Patient Location: Accession/Order Number: [id number] Exam Date: 07/23/2024 09:13 Report Date: 07/23/2024 [...] Hawa Barfield M.D.07/23/2024 9:15 AM Dictation Location: [place] [address] Electronically authenticated by: [id number] Y Date: 07/23/2024 09:15 Dictated By: Hawa Barfield M.D. Signed By: 07/23/24917 DD/ 4 TD/TT: Litigation Paralegal: [facility] Radiology Study observation (narrative) [facility] US OB INCOMPLETE ANATOMYOrde red By: Radiologist Radiology on 07-23-2024 [facility] Work Phone: Urinalysis macro (dipstick) panel (U)on 07-12-2024 Bilirubin, UA Negative Negative - 4(70) +++ mg/dL [facility] Blood, UA Negative Negative - 50 Raúl/mcL [facility] Clarity, UA Clear [facility] Color, UA Yellow [facility] Glucose, UA Negative Negative - 2000(110) ++++ mg/dL [facility] Interpretation and review of laboratory results Abnormal [facility] Ketones, UA Positive Negative - 160(16) ++++ mg/dL [facility] Comment on above: trace Leukocytes, UA Positive Negative - 500+++ Zainab/mcL [facility] Comment on above: trace Nitrite, UA Negative Negative - Positive [facility] pH, UA 6 5 - 9 [facility] Protein, UA Positive Negative - 2000(20) ++++ mg/dL [facility] Comment on above: trace Spec Grav, UA 1.03 1 - 1.03 [facility] Urobilinogen, UA 0.2 0.2 - 12 mg/dL [facility] GLUCOSE TOLERANCE 3 HOURon 0 07-04-2024 GLUCOSE TOLERANCE 3 HOUR mg/dL [facility] Comment on above: GLU FAST 92 (<95) Co l: 07/04/24 0848 GLU 1HR 173 (<180) Col: 07/04/24 0954 GLU 2HR 130 (<155) Col: 07/04/24 1053 GLU 3HR 115 (<140) Col: 07/04/24 1154 CLINIS[facility]NC [facility] ALL CBC WITH AUTO DIFFon BASOPHILS ABSOLUTE AUTO 0 [facility] Basophils/100 WBC (Bld) 0.2 % 0.2 - 2.0 % [facility] Eosinophils/100 WBC (Bld) 0.4 % Low 0.9 - 7.0 % [facility] Erythrocyte distribution width (RBC) [Ratio] 13.2 % 11.0 - 15.0 % [facility] Hematocrit (Bld) [Volume fraction] 36.1 % 36.0 - 48.0 % [facility] Hemoglobin (Bld) [Mass/Vol] 12.1 g/dL 12.0 - 16.0 g/dL [facility] IMMATURE GRANULOCYTES ABS AUTO 0.04 High [facility] Immature granulocytes/100 WBC (Bld) 0.4 % 0.0 - 0.5 % [facility] Interpretation and review of laboratory results Abnormal [facility] LYMPHOCYTES ABSOLUTE AUTO 1.7 [facility] Lymphocytes/100 WBC (Bld) 15.1 % Low 20.5 - 60.0 % [facility] MCH (RBC) [Entitic mass] 32.4 pg 26.7 - 34.0 pg [facility] MCHC (RBC) [Mass/Vol] 33.5 g/dL 29.9 - 35.2 g/dL [facility] MCV (RBC) [Entitic vol] 96.5 fL 81.0 - 99.0 fL [facility] MONOCYTES ABSOLUTE AUTO 0.6 [facility] Monocytes/100 WBC (Bld) 5.4 % 1.7 - 12.0 % [facility] NEUTROPHILS ABSOLUTE AUTO 8.8 High [facility] Neutrophils/100 WBC (Bld) 78.5 % High 43.0 - 75.0 % [facility] Platelet mean volume (Bld) [Entitic vol] 9.5 fL 9.5 - 13.5 fL [facility] EO # 0.1 [facility] PLT 227 [facility] RBC 3.74 Low [facility] TB WBC 11.2 High [facility] CLINIS[facility] BMPon 06-17-2024 Anion gap [Moles/Vol] 14 mmol/L Normal 6-16 [facility] Comment on above: Performed By: #### 2 [id number] #### [facility] [address] [place] [address] Calcium [Mass/Vol] 8.4 mg/dL Low 8.9-11.1 [facility] Comment on above: Performed By: #### 2 [id number] #### [facility] [address] [place] [address] Chloride [Moles/Vol] 104 mmol/L Normal 101-111 [facility] Comment on above: Performed By: #### 2 [id number] #### [facility] [address] [place] [address] CO2 [Moles/Vol] 20 mmol/L Low 21-31 [facility] Comment on above: Performed By: #### 2 [id number] #### [facility] [address] [place] [address] Creatinine [Mass/Vol] 0.6 mg/dL Normal 0.5-1.3 [facility] Comment on above: Performed By: #### 2 [id number] #### [facility] [address] [place] [address] Glucose [Mass/Vol] 96 mg/dL Normal 55-199 [facility] Comment on above: Performed By: #### 2 [id number] #### [facility] [address] [place] [address] Potassium [Moles/Vol] 3.5 mmol/L Normal 3.5-5.3 [facility] Comment on above: Performed By: #### 2 [id number] #### [facility] [address] [place] [address] Sodium [Moles/Vol] 134 mmol/L Low 135-145 [facility] Comment on above: Performed By: #### 2 [id number] #### [facility] [address] [place] [address] Urea nitrogen [Mass/Vol] 8 mg/dL Normal 5-21 [facility] Comment on above: Performed By: #### 2 [id number] #### [facility] [address] [place] [address] Urea nitrogen/Creatinine [Mass ratio] 13 No Units Normal 10-20 [facility] Comment on above: Performed By: #### 2 [id number] #### [facility] [address] [place] [address] ED Clinical Summaryon 2024 ED Clinical Summary ED Clinical Summary [address] [address] ED Clinical Summary Person Information Name: DEVORAH SHELTON [place] Age: 29 Years : 1995 Sex: Female Language: Emirati PCP: JELLY CHERY MD Marital Status: Single Phone: [phone] Visit Id: Visit Reason: Nausea; Body aches; [...] 06/17/2024 01:25:53 06/17/2024 01:25:53 06/17/2024 01:25:53 ADDRESS: [address] [place] [id number] PHYS DOC NOTES: MEDICAL INFORMATION: Prescriptions Given: New Medications [id number], [address], [place] [id number], [phone] ondansetron (Zofran ODT 4 mg Tab-Dis) 1 [...] Follow up: With: Address: When: Donovan VORA [facility], [address] [place] [address] , [place] [address] Business (1) In 3 days 06/20/2024 Comments: Return to the emergency room if your vomiting recurs or any new symptoms. With: Address: When: [address], [address] [place] [address] Business (1) In 3 days DIAGNOSIS: 1:Nausea and vomiting Normal [facility] ED Note-Physicianon 06-17-19 ED Note-Physician ED [...] and Complexity of Problems Differential Diagnosis: [] [facility] Data External documents reviewed: [] My [...] Nausea/Vomiting, # 12 tab(s), Refills(s) 0, Pharmacy: [id number], 157, cm, 06/16/24 22:56:00 EST, Height/Length Dosing, 97.3, kg, 06/16/24 22:56:00 EST, Weight Dosing Sodium Chloride 0.9% intravenous solution, 1,000 mL, Soln-IV, IV, Once, Stop date 06/16/24 23:27:00 EST, STAT, Start date 06/16/24 23:27:00 EST, Infuse over 61, minute(s) Basic Metabolic Panel CBC w/ Auto Diff eGFR Influenza A&B Ag Rapid COVID Antigen ([facility]) UA with Cult [...] Information Donovan VORA In 3 days 06/20/[address] [place] [address]- Business (1) Additional Instructions: Return to the emergency room if your vomiting recurs or any new symptoms. JELLY CHERY In 3 days [address] [facility] [address] [place] [address]- Business (1) Additional Instructions: Patient Education Nausea [...] Current, 11/13/2018 (more content not included)... Normal [facility] Comment on above: Result Comment: Elec tronically Signed By: Kirill Long, Chichi Khoury\.br\Date and Time Signed: 06/17/24 02:11 EST ED Patient Summaryon 025 ED Patient Summary ED Patient Summary [place] [id number] Patient Discharge Instructions Person Information Name: DEVORAH SHELTON Age: 29 Years Arrival Date: 06/16/2024 22:42:49 Discharge Diagnosis: 1:Nausea and vomiting Primary Care Physician: JELLY CHERY MD Provider Information Primary Provider: Chichi Roy M.D. Advanced Broaching Machine Operator:None The exam and treatment you received in the Emergency Department were for an urgent problem and are not intended as complete care. It is important that you follow up with a doctor, nurse practitioner, or physician???s assistant gm of content & delivery for ongoing care. If your symptoms become worse or you do not improve as expected and you are unable to reach your usual health care provider, you should return to the Emergency Department. We are available 24 hours a day. DEVORAH SHELTON has been given the following list of patient education materials, prescriptions and follow-up instructions: Follow-up Instructions: With: Address: When: [facility], [address] [place] [address] [place] [address] Business (1) In 3 days 06/20/2024 Comments: Return to the emergency room if your vomiting recurs or any new symptoms. With: Address: When: [address], [address] [place] [address] Business (1) In 3 days In the event that this physician does not participate in your insurance network, please consult with your insurance company to find a nearby participating provider. Patient Education Materials: Nausea and Vomiting, Adult A MESSAGE TO ALL PATIENTS REGARDING OPIOIDS PRESCRIPTION OPIOIDS: WHAT YOU NEED TO KNOW Prescription opioids can be used to help relieve ojokdqnp-nf-kfhsgv pain and are often prescribed following a [...] and Drug (more content not included)... Normal [facility] Influenza A&B Agon 5 Influenzae A Ag Negative Normal Negative [facility] [place] Comment on above: Performed By: #### 1 [id number] #### [facility] [address] [place] [address] Influenzae B Ag Negative Normal Negative [facility] [place] Comment on above: Result Comment: Test sensitivity and specificity vary for age group, specimen type, antigen types, and prevalence of disease. Test results must be evaluated in conjunction with other clinical data available to the physician. Individuals who received nasally administered Influenza A vaccine may have positive test results up to 3 days after vaccination. Performed By: #### 1 [id number] #### [facility] [address] [place] [address] Rapid COVID Antigen ([facility])on 06-17-2024 Rapid COV Int NEG Ctl Pass Normal Fis [facility] Comment on above: Performed By: #### 2 [id number] #### [facility] [address] [place] [address] Rapid COV Int POS Ctl Pass Normal Fis [facility] Comment on above: Performed By: #### 2 [id number] #### [facility] [address] [place] [address] SARS-CoV+SARS-CoV-2 (COVID-19) Ag IA.rapid Ql (Resp) Not detected Normal Not Detected [facility] Comment on above: Result Comment: The [employer]??? System for Rapid Detection of SARS-CoV-2 is [...] or revoked sooner. Performed By: #### 2 [id number] #### [facility] [address] [place] [address] UA with Cult Rflxon 06-17-19 25 Bilirubin Ql (U) Negative Normal Negative [facility] Comment on above: Performed By: #### 4 [id number] #### [facility] [address] [place] [address] Clarity (U) Clear Normal Clear [facility] Comment on above: Performed By: #### 4 [id number] #### [facility] [address] [place] [address] Color (U) Yellow Normal Yellow [facility] Comment on above: Result Comment: Micr oscopic readings are only performed on those samples that meet specific criteria set forth by [facility]. Performed By: #### 4 [id number] #### [facility] [address] [place] [address] Glucose Ql (U) Negative Normal Negative [facility] Comment on above: Performed By: #### 4 [id number] #### [facility] [address] [place] [address] Hemoglobin Auto test strip (U) [Mass/Vol] Negative Normal Negative [facility] Comment on above: Performed By: #### 4 [id number] #### [facility] [address] [place] [address] Ketones Auto test strip Ql (U) 2+ mg/dL Abnormal Negative [facility] Comment on above: Performed By: #### 4 [id number] #### [facility] [address] [place] [address] Leukocyte esterase Auto test strip Ql (U) Negative Normal Negative [facility] [place] Comment on above: Performed By: #### 4 [id number] #### [facility] [address] [place] [address] Nitrite Auto test strip Ql (U) Negative Normal Negative [facility] Comment on above: Performed By: #### 4 [id number] #### [facility] [address] [place] [address] pH (U) 6.0 [pH] Invalid Interpretation Code 5.0-9.0 [facility] Comment on above: Performed By: #### 4 [id number] #### [facility] [address] [place] [address] Protein Ql (U) Trace Abnormal Negative [facility] Comment on above: Performed By: #### 4 [id number] #### [facility] [address] [place] [address] Specific gravity (U) [Rel density] 1.034 Invalid Interpretation Code 1.005-1.03 0 [facility] Comment on above: Performed By: #### 4 [id number] #### [facility] [address] [place] [address] Urobilinogen (U) [Mass/Vol] 2 mg/dL Abnormal Negative [facility] Comment on above: Performed By: #### 4 [id number] #### [facility] [address] [place] [address] eGFRon 06-17-2024 eGFR 126 mL/min/1.73 m2 Normal >=59 [facility] Comment on above: Performed By: #### 1 [id number] #### [facility] [address] [place] [address] CBC w/ Auto Diffon 5 Basophils/100 WBC (Bld) 0.4 % Normal 0.0-2.0 [facility] Comment on above: Performed By: #### 2 [id number] #### [facility] [address] [place] [address] Basophils/Leukocytes Auto (Bld) [Pure # fraction] 0.0 E9/L Normal 0.0-0.2 [facility] Comment on above: Performed By: #### 2 [id number] #### [facility] [address] [place] [address] Eosinophils (Bld) [#/Vol] 0.0 E9/L Normal 0.0-0.5 [facility] Comment on above: Performed By: #### 2 [id number] #### [facility] [address] [place] [address] Eosinophils/100 WBC (Bld) 0.2 % Normal 0.0-8.0 [facility] Comment on above: Performed By: #### 2 [id number] #### [facility] [address] [place] [address] Erythrocyte distribution width (RBC) [Ratio] 13.4 % Normal 10.9-14.2 [facility] Comment on above: Performed By: #### 2 [id number] #### [facility] [address] [place] [address] Hematocrit (Bld) [Volume fraction] 35.5 % Normal 34.0-46.0 [facility] Comment on above: Performed By: #### 2 [id number] #### [facility] [address] [place] [address] Hemoglobin (Bld) [Mass/Vol] 12.3 g/dL Normal 12.0-16.0 [facility] Comment on above: Performed By: #### 2 [id number] #### [facility] [address] [place] [address] Lymphocytes (Bld) [#/Vol] 0.9 E9/L Low 1.0-4.0 [facility] Comment on above: Performed By: #### 2 [id number] #### [facility] [address] [place] [address] Lymphocytes/100 WBC (Bld) 7.3 % Low 14.0-50.0 [facility] Comment on above: Performed By: #### 2 [id number] #### [facility] [address] [place] [address] MCH (RBC) [Entitic mass] 32.6 pg Normal 27.0-34.0 [facility] Comment on above: Performed By: #### 2 [id number] #### [facility] [address] [place] [address] MCHC (RBC) [Mass/Vol] 34.7 g/dL Normal 31.4-36.0 [facility] Comment on above: Performed By: #### 2 [id number] #### [facility] [address] [place] [address] MCV (RBC) [Entitic vol] 93.9 fL Normal 80.0-100.0 [facility] Comment on above: Performed By: #### 2 [id number] #### [facility] [address] [place] [address] Monocytes (Bld) [#/Vol] 0.7 E9/L Normal 0.2-1.0 [facility] Comment on above: Performed By: #### 2 [id number] #### [facility] [address] [place] [address] Neutrophils (Bld) [#/Vol] 11.4 E9/L High 2.0-7.5 [facility] Comment on above: Performed By: #### 2 [id number] #### [facility] [address] [place] [address] Neutrophils/100 WBC (Bld) 87.0 % High 36.0-75.0 [facility] Comment on above: Performed By: #### 2 [id number] #### [facility] [address] [place] [address] Platelet mean volume (Bld) [Entitic vol] 7.6 fL Normal 6.4-10.8 [facility] Comment on above: Performed By: #### 2 [id number] #### [facility] [address] [place] [address] Platelets (Bld) [#/Vol] 223.0 E9/L Normal 150.0-500. 0 [facility] Comment on above: Performed By: #### 2 [id number] #### [facility] [address] [place] [address] RBC (Bld) [#/Vol] 3.8 E12/L Low 4.3-5.9 [facility] Comment on above: Performed By: #### 2 [id number] #### [facility] [address] [place] [address] WBC corrected for nucl RBC Auto (Bld) [#/Vol] 13.0 E9/L High 4.0-11.0 [facility] [place] Comment on above: Performed By: #### 2 [id number] #### [facility] [address] [place] [address] UA with Cult Rflxon 06-16-19 Type of Urine collection method Clean Catch Normal [facility] Comment on above: Performed By: #### 4 [id number] #### [facility] [address] [place] [address] US for pregnancyon TITLE OF EXAM: OB [...] signed and approved by the interpreting radiologist. [employer] US for pregnancyOrdered By: Miguel Gonzalez on 06-15-2024 [employer] Work Phone: US OB LIMITED 1+ FETUSESon [...] US for pregnancyon Radiology Study observation (narrative) [facility] Urinalysis macro (dipstick) panel (U)on 06-09-2024 Bilirubin, UA Negative Negative - 4(70) +++ mg/dL [facility] Blood, UA Negative Negative - 50 Raúl/mcL [facility] Clarity, UA Clear [facility] Color, UA Yellow [facility] Glucose, UA Negative Negative - 2000(110) ++++ mg/dL [facility] Interpretation and review of laboratory results Abnormal [facility] Ketones, UA Negative Negative - 160(16) ++++ mg/dL [facility] Leukocytes, UA Trace Negative - 500+++ Zainab/mcL [facility] Nitrite, UA Negative Negative - Positive [facility] pH, UA 7 5 - 9 [facility] Protein, UA Trace Negative - 2000(20) ++++ mg/dL [facility] Spec Grav, UA 1.025 1 - 1.03 [facility] Urobilinogen, UA 0.2 0.2 - 12 mg/dL [facility] US OB 14+ WEEKS ANATOMY SCAN [...] RECURRENT VAGINITIS (HTRX)on 05-11-2024 ATOPOBIUM VAGINAE 0 [facility] ATOPOBIUM VAGINAE Not detected [facility] BVAB 2,3 (BACTERIAL VAGINOSIS ASSOCIATED BACTERIA 2, 3); MOBILUNCUS SPP 0 [facility] BVAB 2,3 (BACTERIAL VAGINOSIS ASSOCIATED BACTERIA 2, 3); MOBILUNCUS SPP Not detected [facility] ZABRINA ALBICANS, PARAPSILOSIS, TROPICALIS 0 [facility] ZABRINA ALBICANS, PARAPSILOSIS, TROPICALIS Not detected [facility] ZABRINA GLABRATA 0 [facility] ZABRINA GLABRATA Not detected [facility] ZABRINA KRUSEI 0 [facility] ZABRINA KRUSEI Not detected [facility] CHLAMYDIA TRACHOMATIS 0 [facility] CHLAMYDIA TRACHOMATIS Not detected N [facility] GARDNERELLA VAGINALIS 0 [facility] GARDNERELLA VAGINALIS Not detected N [facility] Interpretation and review of laboratory results Abnormal [facility] MEGASPHAERA (TYPES 1, 2) 29.944 Abnormal [facility] MEGASPHAERA (TYPES 1, 2) Detected Abnormal [facility] MYCOPLASMA GENITALIUM 0 [facility] MYCOPLASMA GENITALIUM Not detected N [facility] NEISSERIA GONORRHOEAE 0 [facility] NEISSERIA GONORRHOEAE Not detected N [facility] TET B, TET M 25.811 Abnormal [facility] TET B, TET M Detected Abnormal [facility] TRICHOMONAS VAGINALIS 0 [facility] TRICHOMONAS VAGINALIS Not detected N [facility] Urinalysis macro (dipstick) panel (U)on 05-10-2024 Bilirubin, UA Negative Negative - 4(70) +++ mg/dL [facility] Blood, UA Negative Negative - 50 Raúl/mcL [facility] Clarity, UA Clear [facility] Color, UA Yellow [facility] Glucose, UA Negative Negative - 1999(110) ++++ mg/dL [facility] Interpretation and review of laboratory results Abnormal [facility] Ketones, UA Positive Negative - 160(16) ++++ mg/dL [facility] Comment on above: 15 Leukocytes, UA Trace Negative - 500+++ Zainab/mcL [facility] Nitrite, UA Negative Negative - Positive [facility] pH, UA 6 5 - 9 [facility] Protein, UA Trace Negative - 1999(20) ++++ mg/dL [facility] Spec Grav, UA 1.03 1 - 1.03 [facility] Urobilinogen, UA 0.2 0.2 - 12 mg/dL [facility] S. pyogenes DNA CRYSTAL+probe No m (Unsp spec)on 04-25-2024 Interpretation and review of laboratory results Abnormal [facility] RESULT Positive Negative [facility] Urinalysis macro (dipstick) panel (U)on 04-11-2024 Bilirubin, UA Negative Negative - 4(70) +++ mg/dL [facility] Blood, UA Negative Negative - 50 Raúl/mcL [facility] Clarity, UA Clear [facility] Color, UA Yellow [facility] Glucose, UA Negative Negative - 1999(110) ++++ mg/dL [facility] Interpretation and review of laboratory results Normal [facility] Ketones, UA Negative Negative - 160(16) ++++ mg/dL [facility] Leukocytes, UA Negative Negative - 500+++ Zainab/mcL [facility] Nitrite, UA Negative Negative - Positive [facility] pH, UA 6 5 - 9 [facility] Protein, UA Negative Negative - 1999(20) ++++ mg/dL [facility] Spec Grav, UA 1.025 1 - 1.03 [facility] Urobilinogen, UA 0.2 0.2 - 12 mg/dL [facility] ALL RUBELLA IGG ABon 024 RUBELLA ANTIBODIES, IGG 6.50 Immune >0.99 index [facility] Comment on above: Non-immune <0.90 Equivocal 0.90 - 0.99 Immune >0.99 Performed at: [facility] [place] [id number] Broom Handle Dipper: Myron Milton PhD, Phone: [phone] HBSAG SCREENon 04-05-2024 HBSAG SCREEN Negative Negative [facility] Comment on above: Performed at: [address] [id number] Broom Handle Dipper: Myron Milton PhD, Phone: [phone] HCV ANTIBODY RFX TO QUANT PC Tyson 04-05-2024 HCV AB Non-Reactive Non Reactive [facility] INTERPRETATION: Comment . [facility] Comment on above: Not infected with HC V unless early or acute infection is suspected (which may be delayed in an immunocompromised individual), or other evidence exists to indicate HCV infection. HIV AB/P24 AG WITH REFLEXon 04-05-2024 HIV AB/P24 AG SCREEN Non-Reactive Non Reactive [facility] Comment on above: HIV-1/HIV-2 antibodi es and HIV-1 p24 antigen were NOT detected. There is no laboratory evidence of HIV infection. HIV Negative Performed at: [address] [id number] Broom Handle Dipper: Myron Milton PhD, Phone: [phone] No Panel Informationon 04-05 [facility] RAPID PLASMA REAGIN, QUANTon 04-05-2024 RAPID PLASMA REAGIN, QUANT Non-Reactive NonRea<1:1 titer [facility] Comment on above: Please Note: This te st does not meet current guidelines for screening and diagnosis of syphilis. This test is intended for following treatment response in patients being treated for syphilis infection. To screen for syphilis infection, a reflex cascade that includes both RPR and a treponema-specific assay should be utilized, such as Treponema pallidum (Syphilis) Screening [place] (405872) or Rapid Plasma Reagin (RPR) Test With Reflex to Quantitative RPR and Confirmatory Treponema pallidum Antibodies (848765). Performed at: [facility] [employer] [id number] Broom Handle Dipper: Myron Milton PhD, Phone: [phone] URINE CULTURE, ROUTINEon Bacteria identified Cx Nom (U) Urine Culture, Routine [facility] Bacteria identified Cx Nom (U) Mixed urogenital lenka [facility] Bacteria identified Cx Nom (U) 10,000-25,000 colony forming units per mL [facility] Bacteria identified Cx Nom (U) [facility]formed at[facility] Bacteria identified Cx Nom (U) [address] [place], [place] [id number] [facility] Bacteria identified Cx Nom (U) Broom Handle Dipper: Myron Milton PhD, Phone: [phone] [facility] ALL CBC WITH AUTO DIFFon BASOPHILS ABSOLUTE AUTO 0 [facility] Basophils/100 WBC (Bld) 0.2 % 0.2 - 2.0 % [facility] Eosinophils/100 WBC (Bld) 0.6 % Low 0.9 - 7.0 % [facility] Erythrocyte distribution width (RBC) [Ratio] 12.6 % 11.0 - 15.0 % [facility] Hematocrit (Bld) [Volume fraction] 38.4 % 36.0 - 48.0 % [facility] Hemoglobin (Bld) [Mass/Vol] 12.9 g/dL 12.0 - 16.0 g/dL [facility] IMMATURE GRANULOCYTES ABS AUTO 0.03 [facility] Immature granulocytes/100 WBC (Bld) 0.3 % 0.0 - 0.5 % [facility] Interpretation and review of laboratory results Abnormal [facility] LYMPHOCYTES ABSOLUTE AUTO 1.8 [facility] Lymphocytes/100 WBC (Bld) 19.8 % Low 20.5 - 60.0 % [facility] MCH (RBC) [Entitic mass] 31.9 pg 26.7 - 34.0 pg [facility] MCHC (RBC) [Mass/Vol] 33.6 g/dL 29.9 - 35.2 g/dL [facility] MCV (RBC) [Entitic vol] 94.8 fL 81.0 - 99.0 fL [facility] MONOCYTES ABSOLUTE AUTO 0.6 [facility] Monocytes/100 WBC (Bld) 6.9 % 1.7 - 12.0 % [facility] NEUTROPHILS ABSOLUTE AUTO 6.7 High [facility] Neutrophils/100 WBC (Bld) 72.2 % 43.0 - 75.0 % [facility] Platelet mean volume (Bld) [Entitic vol] 9.4 fL Low 9.5 - 13.5 fL [facility] TBH EO # 0.1 [facility] PLT 252 [facility] RBC 4.05 Low [facility] WBC 9.3 [facility] ALL TYPE AND SCREENon 2023 ABO and Rh group Nom (d) Blood group O Rh(D) positive [facility] HEMOGLOBIN A1Con 024 Glucose [Mass/Vol] 91 mg/dL [facility] HbA1c (Bld) [Mass fraction] 4.8 % 4.5 - 6.2 % [facility] Comment on above: ADA RECOMMENDED LIMI T 4.0 - 6.0 ADA THERAPEUTIC TARGET < 7.0 ACTION SUGGESTED > 7.0 [facility] DRUG SCREEN RAPID (URINE )on 04-04-2024 AMPHETAMINE SCREEN URINE Negative NEGATIVE [facility] BARBITURATES SCREEN URINE Negative NEGATIVE [facility] BENZODIAZEPINES SCREEN URINE Negative NEGATIVE [facility] BUPRENORPHINE SCREEN URINE Negative NEGATIVE [facility] Comment on above: DRUG CLASS TEST [...] 300 ng/mL CANNABINOID SCREEN URINE Negative NEGATIVE [facility] COCAINE SCREEN URINE Negative NEGATIVE [facility] METHADONE SCREEN URINE Negative NEGATIVE NO [facility] METHAMPHETAMINES SCREEN URINE Negative NEGATIVE [facility] OPIATE SCREEN URINE Negative NEGATIVE [facility] OXYCODONE SCREEN URINE Negative NEGATIVE NO [facility] PHENCYCLIDINE SCREEN URINE Negative NEGATIVE [facility] TRICYCLIC ANTIDEPRESSANT URINE Negative NEGATIVE [facility] XR FOREARM 2 VIEWS RIGHTon 1 05-28-2023 [...] and symmetry. No ataxia with finger-nose or [id number]. Intact sensation of bilateral upper and lower [...] JELLY CHERY In 3 days 03/27/[address] [place] [address] [address] [place] [id number] Business (1) Additional Instructions: Patient Education Wrist Sprain, Adult Attestation Patient seen and evaluated by the physician assistant gm of content & delivery. Attending physician was present in the emergency department and supervised care. This visit was performed by both the physician and an APC. I performed all aspects of the MDM as documented. This report was transcribed using voice recognition software. (more content not included)... Normal [facility] Comment on above: Result Comment: Elec [...] mGy = na DAP = na Normal [facility] ED Clinical Summaryon 2023 ED Clinical Summary ED Clinical Summary [address] [address] ED Clinical Summary Person Information Name: DEVORAH SHELTON [place] Age: 29 Years : 1995 Sex: Female Language: Emirati PCP: JELLY CHERY MD Marital Status: Single Phone: [phone] Visit Id: Visit Reason: Facial abrasion, minor; [...] 03/24/2024 22:38:59 03/24/2024 22:38:59 03/24/2024 22:38:59 ADDRESS: [address] [place] [id number] PHYS DOC NOTES: MEDICAL INFORMATION: Prescriptions Given: Medications to Continue with No Changes Other Medications cyclobenzaprine By Mouth. ethinyl estradiol-norgestimate (Sprintec) 1 Tablets By Mouth every day. ibuprofen meloxicam (Mobic) By Mouth every day. omeprazole By Mouth every day. venlafaxine By Mouth. PATIENT EDUCATION INFORMATION: Instructions: Wrist Sprain, Adult Follow up: With: Address: When: [address], [address] [place] [address] Business (1) In 3 days 03/27/2024 DIAGNOSIS: Accidental fall; Facial abrasion; Right wrist sprain Normal [facility] ED Patient Summaryon 024 ED Patient Summary ED Patient Summary [address] [address] Patient Discharge Instructions Person Information Name: DEVORAH SHELTON Age: 29 Years Arrival Date: 03/24/2024 18:45:11 Discharge Diagnosis: Accidental fall; Facial abrasion; Right wrist sprain Primary Care Physician: JELLY CHERY MD Provider Information Primary Provider: Luther Ventura DO Advanced Broaching Machine Operator:Kp Kamara PA-C The exam and treatment you received in the Emergency Department were for an urgent problem and are not intended as complete care. It is important that you follow up with a doctor, nurse practitioner, or physician???s assistant gm of content & delivery for ongoing care. If your symptoms become worse or you do not improve as expected and you are unable to reach your usual health care provider, you should return to the Emergency Department. We are available 24 hours a day. DEVORAH SHELTON has been given the following list of patient education materials, prescriptions and follow-up instructions: Follow-up Instructions: With: Address: When: JELLY [address], [address] [place] [address] Business (1) In 3 days 03/27/2024 In the event that this physician does not participate in your insurance network, please consult with your insurance company to find a nearby participating provider. Patient Education Materials: Wrist Sprain, Adult A MESSAGE TO ALL PATIENTS REGARDING OPIOIDS PRESCRIPTION OPIOIDS: WHAT YOU NEED TO KNOW Prescription opioids can be used to help relieve fejqlqdl-lt-byxwax pain and are often prescribed following a [...] with calvin (more content not included)... Normal [facility] HCG ( test) Ql (U)o n 03-10-2024 Interpretation and review of laboratory results Abnormal [facility] Preg Test, Ur Positive [facility] Urinalysis macro (dipstick) panel (U)on 03-10-2024 Bilirubin, UA Positive Negative - 4(70) +++ mg/dL [facility] Comment on above: small Blood, UA Negative Negative - 50 Raúl/mcL [facility] Clarity, UA Clear [facility] Color, UA Yellow [facility] Glucose, UA Negative Negative - 2000(110) ++++ mg/dL [facility] Interpretation and review of laboratory results Abnormal [facility] Ketones, UA Positive Negative - 160(16) ++++ mg/dL [facility] Comment on above: 40 Leukocytes, UA Negative Negative - 500+++ Zainab/mcL [facility] Nitrite, UA Negative Negative - Positive [facility] pH, UA 6.5 5 - 9 [facility] Protein, UA Negative Negative - 1999(20) ++++ mg/dL [facility] Spec Grav, UA 1.025 1 - 1.03 [facility] Urobilinogen, UA 0.2 0.2 - 12 mg/dL [facility] hCG, quantitative, on 02-17-2024 HCG.intact+Beta subunit Qn 87 mIU/mL [facility] Comment on above: Female (Non- ) 0 - 5 (Postmenopausal) 0 - 8 Female () Weeks of Gestation 3 6 - 71 4 10 - 750 5 606 - 4415 6 524 - 51113 7 1102 -[phone] 8 [phone] -[phone] 9 [phone] -[phone] 10 15384 -124401 12 53347 -685694 14 95451 - 02226 15 16224 - 55293 16 2789 - 90797 17 9841 - 40321 18 2889 - 00589 Juan Luis ECLIA methodology Performed at: [address] [place] [address] Broom Handle Dipper: Myron Milton PhD, Phone: [phone] Specimen Comment: A courtesy copy of this report has been sent to [phone] [facility] XR Hand 3+ Views Lefton 12-24 XR [...] mGy = na DAP = na Normal [facility] ED Clinical Summaryon 2023 ED Clinical Summary ED Clinical Summary [address] [address] ED Clinical Summary Person Information Name: DEVORAH SHELTON/New_Jonathan Age: 28 Years : 1995 Sex: Female Language: Emirati PCP: JELLY CHERY MD Marital Status: Single Phone: [phone] Visit Id: Visit Reason: Finger injury - [...] 01/15/2024 22:46:45 01/15/2024 22:46:45 01/15/2024 22:46:45 ADDRESS: [address] [place] [id number] PHYS DOC NOTES: MEDICAL INFORMATION: Prescriptions Given: Medications to Continue with No Changes Other Medications cyclobenzaprine By Mouth. ethinyl estradiol-norgestimate (Sprintec) 1 Tablets By Mouth every day. ibuprofen meloxicam (Mobic) By Mouth every day. omeprazole By Mouth every day. venlafaxine By Mouth. PATIENT EDUCATION INFORMATION: Instructions: Musculoskeletal Pain Follow up: With: Address: When: [address], [address] [place] [id number] Business (1) In 3 days 01/18/2024 Comments: To schedule follow-up appointment with your family physician if symptoms not improve in the next 2 to 3 days. Alternate Tylenol, ibuprofen, and ice as needed for pain management. Return to the ED with any worsening symptoms DIAGNOSIS: Hand pain, left Normal [facility] ED Note-Physicianon 01-15-20 ED Note-Physician ED [...] CHERY In 3 days 01/18/2024 EDT [address] [facility] [address] [place] [address]- Business (1) Additional Instructions: To schedule follow-up appointment with your family physician if symptoms not improve in the next 2 to 3 days. Alternate Tylenol, ibuprofen, and ice as needed for pain management. Return to the ED with any worsening symptoms Patient Education Musculoskeletal Pain Attestation Patient seen and evaluated by the physician assistant gm of content & delivery. Attending physician was present in the emergency department and supervised care. This visit was performed by both the physician and an APC. I performed all aspects of the MDM as documented. This report was transcribed using voice recognition software. Every effort was made to ensure accuracy, however, inadvertently computerized carton stapler mistakes may be present. Appropriate healthcare PPE [...] Former sm (more content not included)... Normal [facility] Comment on above: Result Comment: Elec tronically Signed By: Margot MCWILLIAMS, Whitney Luu\.br\Date and Time Signed: 01/15/24 22:43 EDT\.br\Electronically Co-Signed By: Roman Syed DO\.br\Date and Time Co-Signed: 01/15/24 23:00 EDT ED Patient Summaryon 024 ED Patient Summary ED Patient Summary [place] [id number] Patient Discharge Instructions Person Information Name: DEVORAH SHELTON Age: 28 Years Arrival Date: 01/15/2024 21:22:33 Discharge Diagnosis: Hand pain, left Primary Care Physician: JELLY CHERY MD Provider Information Primary Provider: Roman Syed DO Advanced Broaching Machine Operator:Whitney Frost PA-C The exam and treatment you received in the Emergency Department were for an urgent problem and are not intended as complete care. It is important that you follow up with a doctor, nurse practitioner, or physician?s assistant gm of content & delivery for ongoing care. If your symptoms become worse or you do not improve as expected and you are unable to reach your usual health care provider, you should return to the Emergency Department. We are available 24 hours a day. DEVORAH SHELTON has been given the following list of patient education materials, prescriptions and follow-up instructions: Follow-up Instructions: With: Address: When: JELLY [address], [address] [place] [address] Business (1) In 3 days 01/18/2024 Comments: [...] opioids can be used to help relieve yznbxzjy-si-uibnef pain and are often prescribed following a [...] Visit ww (more content not included)... Normal [facility] Image-guided pap and hpv mrn a e6/e7 reflex genotypes 16, 18/45on 01-14-2024 Cloth Tester Quality Cyto stain Nom (Cvx/Vag) [ID] Comment [facility] Comment on above: Piotr Mckeon totechnologist (ASCP) Cytology report Cyto stain Doc (Cvx/Vag) Comment [facility] Comment on above: NEGATIVE FOR INTRAEP ITHELIAL LESION OR MALIGNANCY. Cytology report Cyto stain.thin prep Doc (Cvx/Vag) Comment [facility] Comment on above: This liquid based Th inPrep(R) pap test was screened with the use of an image guided system. Diagnosis ICD code [Identifier] Comment [facility] Comment on above: Z12.4 HPV 16+18+31+33+35+39+45+5 1+52+56+58+59+66+68 DNA Probe+sig amp Ql (Cvx) Negative [facility] Comment on above: This nucleic acid am plification test detects fourteen high- risk HPV types (16,18,31,33,35,39,45,51,52,56,58,59,66,68) without differentiation. HPV Genotype Reflex Comment [facility] Comment on above: Criteria not met, HP V Genotype not performed. Microscopic observation Other stain Nom (Unsp spec) . [facility] Note: Comment [facility] Comment on above: The Pap smear is a s creening test designed to aid in the detection of premalignant and malignant conditions of the uterine cervix. It is not a diagnostic procedure and should not be used as the sole means of detecting cervical cancer. Both false-positive and false-negative reports do occur. Statement of adequacy Cyto stain (Cvx/Vag) [Interp] Comment [facility] Comment on above: Satisfactory for saniya luation. Endocervical and/or squamous metaplastic cells (endocervical component) are present. Performed at: 01 - [address] [place] [id number] Broom Handle Dipper: Moon Tan MD, Phone: [phone] Performed at: 02 - [facility] [place], [place] [id number] Broom Handle Dipper: Moon Tan MD, Phone: [phone] Specimen Comment: Source.............Cervix Specimen Comment: LMP / Prev Treat...[id number] Specimen Comment: No. of containers..01 [facility] Cervical or vaginal smear or scraping studyOrdered By: Teresa Weber on 01-11-2024 [facility] GENITAL CULTUREon 01-03-2024 GENITAL CULTURE MICROBIOLOGY REPORT [facility], [address] [place] [address], [place], [address] PATIENT: DEVORAH SHELTON LOCATION: : 1995 AGE: 28 SEX: F ADM: 01/03/24 Att. Physician: JELLY CHERY Order Id: [id number] Req. Physician: ALPA PORTER Source: vagina Site: [...] Smear consistent with Normal Vaginal Lenka. Normal [facility] UA W/O MICROSCOPICon 024 BILIRUBIN, URINE Negative Normal NEGATIVE [facility] Comment on above: Performed By: #### W UA #### [facility] [address] [facility] [place] [address] CHARACTER Clear Normal CLEAR-SL CLOUD [facility] Comment on above: Performed By: #### W UA #### [facility] [address] [place] [address] [place] [address] Color (U) Yellow Normal STRAW-YELL OW [facility] Comment on above: Performed By: #### W UA #### [facility] [address] [place] [address] [place] [address] Glucose Ql (U) Negative Normal NEGATIVE [facility] Comment on above: Performed By: #### W UA #### [facility] [address] [place] [address] Hemoglobin Ql (U) Negative Normal NEGATIVE [facility] Comment on above: Performed By: #### W UA #### [facility] [address] [place] [address] [place] [address] Ketones Ql (U) Negative Normal NEGATIVE [facility] Comment on above: Performed By: #### W UA #### [facility] [address] [place] [address] LEUKOCYTES Negative Normal NEGATIVE [facility] Comment on above: Performed By: #### W UA #### [facility] [address] [place] [address] [place] [address] Nitrite Ql (U) Negative Normal NEGATIVE [facility] Comment on above: Performed By: #### W UA #### [facility] [address] [place] [address] [place] [address] pH (U) 7.00 [pH] Normal 5.0-9.0 [facility] Comment on above: Performed By: #### W UA #### [facility] [address] [place] [address] [place] [address] Protein Ql (U) Negative Normal NEGATIVE [facility] Comment on above: Performed By: #### W UA #### [facility] [address] [place] [address] Specific gravity (U) [Rel density] 1.015 Normal 1.002-1.03 0 [facility] Comment on above: Performed By: #### W UA #### [facility] [address] [place] [address] Urobilinogen Qn (U) 0.20 {James'U}/dL Normal 0.2-1.0 [facility] Comment on above: Performed By: #### W UA #### [facility] [address] [place] [id number] Laboratory - Chemistry and C hemistry - challengeon 11-18-2023 Bilirubin Ql (U) Negative [facility] Glucose (U) [Mass/Vol] Negative [facility] Ketones Ql (U) Positive [facility] pH (U) 6.0 [pH] [facility] Specific gravity (U) [Rel density] 1.010 [facility] Urobilinogen (U) [Mass/Vol] 0.2 mg/dL [facility] Laboratory - Microbiology an d Antimicrobial susceptibilityOrdered By: Georgie Guerrier on 11-18-2023 N. gonorrhoeae DNA CRYSTAL+probe Ql (Unsp spec) Negative Negative [facility] Comment on above: Performed at: =[address] [id number] Director: Moon Tan MD, Phone: [phone] Laboratory - Specimen inform ationon 11-18-2023 Appearance (U) clear [facility] Color (U) paleyellow [facility] Laboratory - Urinalysison Leukocyte esterase Test strip Ql (U) Negative [facility] Nitrite Ql (U) Negative [facility] Protein Ql (U) Positive [facility] No Panel Informationon 11-17 Urine Occult Blood Negative [facility] No Panel InformationOrdered By: Georgie Guerrier on 11-18-2023 Zabrina albicans (CRYSTAL) Negative Negative [facility] Comment on above: This test was develo ped and its performance characteristicsdetermined by [facility]. It has not been cleared orapproved by the Food and Drug Administration. Zabrina glabrata (CRYSTAL) Negative Negative [facility] Comment on above: This test was develo ped and its performance characteristicsdetermined by [facility]. It has not been cleared orapproved by the Food and Drug Administration. Chlamydia trachomatis (CRYSTAL) (LAB) Negative Negative [facility] Trichomonas vaginalis (CRYSTAL) Negative Negative [facility] Urine Cultureon 11-18-2023 Bacteria identified Cx Nom (U) 75,000 colonies/ml mixed bacterial skin contaminants 2 Days PERFORMED BY: [place] [address] PATHOLOGIST DROP CREW LABORER NAINA NEWMAN M.D. Normal [facility] Comment on above: Performed By: #### V AGINITIS+ #### [facility] , #### CUU #### [address] Urine culture routineOrdered By: Georgie Guerrier on 11-18-2023 Bacteria identified Cx Nom (U) 2 Days [facility] Vaginal fluid Atopobium vagi holley DNA detection by probe and target amplification methoOrdered By: Georgie Guerrier on 11-18-2023 A. vaginae DNA CRYSTAL+probe Ql (Vag fld) Low - 0 Score . [facility] Comment on above: This test was develo ped and its performance characteristicsdetermined by [facility]. It has not been cleared orapproved by the Food and Drug Administration. Vaginal fluid Megasphaera sp ecies type 1 DNA detection by probe and target amplificatOrdered By: Georgie Guerrier on 11-18-2023 Megasphaera sp type 1 DNA CRYSTAL+probe Ql (Vag fld) Low - 0 Score . [facility] Comment on above: This test was develo ped and its performance characteristicsdetermined by [facility]. It has not been cleared orapproved by [...] (Vag fld) Low - 0 Score . [facility] Comment on above: This test was develo ped and its performance characteristicsdetermined by [facility]. It has not been cleared orapproved by the Food and Drug Administration. Vaginitis Plus (VG+)on 11-17 Atopobium Vaginae Low - 0 Normal . [facility] Comment on above: Result Comment: This test was developed and its performance characteristics determined by [facility]. It has not been cleared or approved by the Food and Drug Administration. Performed By: #### V AGINITIS+ #### [facility] , #### CUU #### [address] BVAB2 Low - 0 Normal . [facility] Comment on above: Result Comment: This test was developed and its performance characteristics determined by [facility]. It has not been cleared or approved by the Food and Drug Administration. Performed By: #### V AGINITIS+ #### [facility] , #### CUU #### [place] [address] [place] Zabrina Albicans, CRYSTAL Negative Normal Negative [facility] Comment on above: Result Comment: This test was developed and its performance characteristics determined by [facility]. It has not been cleared or approved by the Food and Drug Administration. Performed By: #### V AGINITIS+ #### [facility] , #### CUU #### [place] [address] [place] Zabrina Glabrata, CRYSTAL Negative Normal Negative [facility] Comment on above: Result Comment: This test was developed and its performance characteristics determined by [facility]. It has not been cleared or approved by the Food and Drug Administration. PERFORMED BY: [place] [address] PATHOLOGIST DROP CREW LABORER NAINA NEWMAN M.D. Performed By: #### V AGINITIS+ #### [facility] , #### CUU #### [address] Chlamydia Trachomotis, CRYSTAL Negative Normal Negative [facility] Comment on above: Performed By: #### V AGINITIS+ #### [facility] , #### CUU #### [address] Megasphaera Low - 0 Normal . [facility] Comment on above: [...] AGINITIS+ #### [facility] , #### CUU #### [address] Neisseria Gonorrhoeae, CRYSTAL Negative Normal Negative [facility] Comment on above: Result Comment: Perf ormed at: =G - [facility] [address] [id number] Broom Handle Dipper: Moon Tan MD, Phone: [phone] Performed By: #### V AGINITIS+ #### [facility] , #### CUU #### [address] Tric Vag CRYSTAL Negative Normal Negative [facility] Comment on above: Performed By: #### V AGINITIS+ #### [facility] , #### CUU #### [address] XR hand RT min 3V*on 024 XR hand RT min 3V* [facility] [address] [place] [address] [place] [address] XRay Report Signed Patient: Devorah Shelton MR#: [id number] : 1995 Acct:[id number] Age/Sex: 28 / F ADM Date: 09/29/23 Loc: [id number] Room: Type: [facility] Attending Dr: Belia Aguero PA-C Copies [...] Liliana Goyal M.D.09/29/2023 11:30 AM Dictation Location: [place] [address] Transcribed By: [facility] 09/29/23 1130 Dictated By: Liliana Goyal MD 09/29/23 1128 Signed By: 09/29/23 1130 Normal [facility] Automated basophil %Ordered By: Simone Bahena on 07-27-2023 Basophils/100 WBC (Bld) 0.5 % Normal . [facility] Comment on above: Performed By: #### C BC, CRP, ESR #### [address] Automated basophil countOrde red By: Simone Bahena on 07-27-2023 Basophils (Bld) [#/Vol] 0.0 10*3/uL Normal 0.0-0.2 [facility] Comment on above: Performed By: #### C BC, CRP, ESR #### [address] Automated blood monocyte cou ntOrdered By: Simone Bahena on 07-27-2023 Monocytes (Bld) [#/Vol] 0.8 10*3/uL Normal 0.0-0.8 [facility] Comment on above: Performed By: #### C BC, CRP, ESR #### [address] Automated eosinophil %Ordere d By: Simone Bahena on 07-27-2023 Eosinophils/100 WBC (Bld) 1.0 % Normal . [facility] Comment on above: Performed By: #### C BC, CRP, ESR #### [address] Automated eosinophil countOr dered By: Simone Bahena on 07-27-2023 Eosinophils (Bld) [#/Vol] 0.1 10*3/uL Normal 0.0-0.45 [facility] Comment on above: Performed By: #### C BC, CRP, ESR #### [address] Automated monocyte %Ordered By: Simone Bahena on 07-27-2023 Monocytes/100 WBC (Bld) 8.2 % Normal . [facility] Comment on above: Performed By: #### C BC, CRP, ESR #### [address] Automated neutrophil %Ordere d By: Simone Bahena on 07-27-2023 Neutrophils/100 WBC (Bld) 62.4 % Normal . [facility] Comment on above: Performed By: #### C BC, CRP, ESR #### [address] C reactive protein [Mass/vol ume] in Serum or PlasmaOrdered By: Simone Bahena on 07-27-2023 CRP [Mass/Vol] 1.7 mg/dL 0.0-0.5 [facility] C-Reactive Proteinon 024 C-Reactive Protein 1.7 mg/dL High 0.0-0.5 [facility] Comment on above: Result Comment: PERF ORMED BY: [place] [address] PATHOLOGIST DROP CREW LABORER NAINA NEWMAN M.D. Performed By: #### C BC, CRP, ESR #### [address] Complete Blood Count Auto Di ffon 07-27-2023 Mean Corpuscular HGB Conc 34.0 g/dL Normal 32.0-35.0 [facility] Comment on above: Performed By: #### C BC, CRP, ESR #### [address] NRBC% 0.1 /100{WBC} Normal 0-0.5 [facility] Comment on above: Performed By: #### C BC, CRP, ESR #### [address] Erythrocyte Sedimentation Ra aishwarya 07-27-2023 ESR (Bld) [Velocity] 14 mm/h Normal 0-19 [facility] Comment on above: Result Comment: PERF ORMED BY: [place] [address] PATHOLOGIST DROP CREW LABORER NAINA NEWMAN M.D. Performed By: #### C BC, CRP, ESR #### [address] Erythrocyte distribution wid th [Ratio] by Automated countOrdered By: Simone Bahena on 07-27-2023 Erythrocyte distribution width (RBC) [Ratio] 12.8 % Normal 11.9-15.3 [facility] Comment on above: Performed By: #### C BC, CRP, ESR #### [address] Erythrocyte sedimentation ra te by Photometric methodOrdered By: Simone Bahena on 07-27-2023 ESR Photometric method (Bld) [Velocity] 14 mm/hr 0-19 [facility] Erythrocytes [#/volume] in B lood by Automated countOrdered By: Simone Bahena on 07-27-2023 RBC (Bld) [#/Vol] 4.14 10*6/uL Normal 3.60-5.[address] [facility] Comment on above: Performed By: #### C BC, CRP, ESR #### [address] Hematocrit [Volume Fraction] of Blood by Automated countOrdered By: Simone Bahena on 07-27-2023 Hematocrit (Bld) [Volume fraction] 39.0 % Normal 34.0-46.4 [facility] Comment on above: Performed By: #### C BC, CRP, ESR #### [address] Hemoglobin [Mass/volume] in BloodOrdered By: Simone Bahena on 07-27-2023 Hemoglobin (Bld) [Mass/Vol] 13.3 g/dL Normal 11.8-15.4 [facility] Comment on above: Performed By: #### C BC, CRP, ESR #### [address] Leukocytes [#/volume] correc betty for nucleated erythrocytes in Blood by Automated counOrdered By: Simone Bahena on 07-27-2023 WBC corrected for nucl RBC Auto (Bld) [#/Vol] 9.4 10*3/uL 3.8-11.6 [facility] Leukocytes [#/volume] in Blo od by Automated countOrdered By: Simone Bahena on 07-27-2023 WBC (Bld) [#/Vol] 9.4 10*3/uL Normal 3.8-11.6 [facility] Comment on above: Performed By: #### C BC, CRP, ESR #### [address] Lymphocytes [#/volume] in Bl ood by Automated countOrdered By: Simone Bahena on 07-27-2023 Lymphocytes (Bld) [#/Vol] 2.6 10*3/uL Normal 1.00-4.8 [facility] Comment on above: Performed By: #### C BC, CRP, ESR #### [address] Lymphocytes/100 leukocytes i n Blood by Automated countOrdered By: Simone Bahena on 07-27-2023 Lymphocytes/100 WBC (Bld) 27.9 % Normal . [facility] Comment on above: Performed By: #### C BC, CRP, ESR #### [facility] [address] [place] [address] [place] MCH [Entitic mass] by Automa betty countOrdered By: Simone Bahena on 07-27-2023 MCH (RBC) [Entitic mass] 32.0 pg Normal 24.7-34.3 [facility] Comment on above: Performed By: #### C BC, CRP, ESR #### [facility] [address] [place] [address] MCHC Auto (RBC) [Mass/Vol]Or dered By: Simone Bahena on 07-27-2023 MCHC (RBC) [Mass/Vol] 34.0 g/dL 32.0-35.0 [facility] MCV [Entitic volume] by Auto mated countOrdered By: Simone Bahena on 07-27-2023 MCV (RBC) [Entitic vol] 94.2 fL Normal 80-100 [facility] Comment on above: Performed By: #### C BC, CRP, ESR #### [facility] [address] [place] [address] [place] Neutrophils [#/volume] in Bl ood by Automated countOrdered By: Simone Bahena on 07-27-2023 Neutrophils (Bld) [#/Vol] 5.8 10*3/uL Normal 1.8-7.7 [facility] Comment on above: Performed By: #### C BC, CRP, ESR #### [facility] [address] [place] [address] [place] Nucleated erythrocytes [Pres ence] in Blood by Automated countOrdered By: Simone Bahena on 07-27-2023 Nucleated RBC Auto Ql (Bld) 0.1 /100{WBC} 0-0.5 [facility] Platelet mean volume [Entiti c volume] in Blood by Automated countOrdered By: Simone Bahena on 07-27-2023 Platelet mean volume (Bld) [Entitic vol] 7.7 fL Normal 6.3-10.7 [facility] Comment on above: Performed By: #### C BC, CRP, ESR #### [facility] [address] Platelets [#/volume] in Bloo d by Automated countOrdered By: Simone Bahena on 07-27-2023 Platelets (Bld) [#/Vol] 294 10*3/uL Normal 150-450 [facility] Comment on above: Performed By: #### C BC, CRP, ESR #### [facility] [address] No Panel Informationon 07-05 INFLUENZA A Negative [facility] INFLUENZA B Negative [facility] Interpretation and review of laboratory results Normal [facility] S. pyogenes DNA CRYSTAL+probe No m (Unsp spec)on 07-05-2023 Interpretation and review of laboratory results Normal [facility] RESULT Negative [facility] CNOVon 06-29-2023 CNOV Office Visit (PLASMN ) ----- GERALDINE SHELTONITLYJohn Wills ([id number]) 1995 F Date Time Provider Department 06/29/23 3:40 PM MIGUEL ANG During your visit today, we recorded the following information about you: Temperature Pulse Blood pressure 97.3 degrees 68/minute 121/67 Miguel Ang PA-C 06/30/2023 8:33 AM Signed PLASTIC SURGERY DEPARTMENT [facility] Hand Surgery Note [] New referred by []self []physician.......... [] Follow-up CC: ..right hand pain............ ? HPI: Devorah is a 28 year old female who presnets after being bit by a dog in February 2023. Reports was bit at the [facility] and has never healed correctly. Patient also suffered infection of the right hand following a dog bite which she was treated with antibiotics. She reported that the infection started to move up the arm past the wrist. 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 Dominant Hand: [...] by m (more content not included)... Normal [facility] No Panel Informationon 06-29 [facility] XR HAND 3V PA/LAT/OBL RTon 0 06-29-2023 [...] DEFORMITY, AN EROSION, OR SEQUELA OF OSTEOMYELITIS. Litigation Paralegal: TOMAS Transcribe Date/Time: Jun 29 2023 4:42P Dictated by : MAXINE RUBI MD This examination was interpreted and the report reviewed and electronically signed by: MAXINE RUBI MD on Jun 29 2023 4:45PM EST [id number] Normal [facility] Alanine aminotransferase [En zymatic activity/volume] in Serum or PlasmaOrdered By: Susie Johnosn on 04-03-2023 ALT [Catalytic activity/Vol] 15 U/L Normal 7-52 [facility] Comment on above: Performed By: #### H EPATIC #### [address] Albumin [Mass/volume] in Ser um or Plasma by Bromocresol green (BCG) dye binding methoOrdered By: Susie Johnson on 04-03-2023 Albumin BCG dye [Mass/Vol] 4.2 g/dL 3.5-5.7 [facility] Alkaline phosphatase [Enzyma tic activity/volume] in Serum or PlasmaOrdered By: Susie Johnson on 04-03-2023 ALP [Catalytic activity/Vol] 104 U/L Normal 34-104 [facility] Comment on above: Result Comment: PERF ORMED BY: [place] [address] PATHOLOGIST [employer]ER NAINA NEWMAN M.D. Performed By: #### H EPATIC #### [facility] [address] [place], [place] [id number] [facility] Aspartate aminotransferase [ Enzymatic activity/volume] in Serum or PlasmaOrdered By: Susie Johnson on 04-03-2023 AST [Catalytic activity/Vol] 15 U/L Normal 13-39 [facility] Comment on above: Performed By: #### H EPATIC #### [address] Bilirubin.direct [Mass/volum e] in Serum or PlasmaOrdered By: Susie Johnson on 04-03-2023 Bilirubin.direct [Mass/Vol] 0.10 mg/dL 0.03-0.18 [facility] Bilirubin.total [Mass/volume ] in Serum or PlasmaOrdered By: Susie Risnalini on 04-03-2023 Bilirubin [Mass/Vol] 0.8 mg/dL Normal 0.3-1.0 [facility] Comment on above: Performed By: #### H EPATIC #### [address] Hepatic Panelon 04-03-2023 Albumin [Mass/Vol] 4.2 g/dL Normal 3.5-5.7 [facility] Comment on above: Performed By: #### H EPATIC #### [address] Bilirubin,Indirect 0.7 mg/dL Normal [facility] Comment on above: Performed By: #### H EPATIC #### [address] Bilirubin.indirect [Mass/Vol] 0.10 mg/dL Normal 0.03-0.18 [facility] Comment on above: Performed By: #### H EPATIC #### [address] Protein [Mass/volume] in Ser um or PlasmaOrdered By: Susie Johnson on 04-03-2023 Protein [Mass/Vol] 6.8 g/dL Normal 6.4-8.9 [facility] Comment on above: Performed By: #### H EPATIC #### [address] Serum globulin measurement b y calculation (mass/volume)Ordered By: Susie Johnson on 04-03-2023 Globulin (S) [Mass/Vol] 2.6 g/dL Normal [facility] Comment on above: Performed By: #### H EPATIC #### [facility] [address] Serum or plasma albumin/glob ulin mass ratioOrdered By: Susie Johnson on 04-03-2023 Albumin/Globulin [Mass ratio] 1.6 {ratio} Normal [facility] Comment on above: Performed By: #### H EPATIC #### [facility] [address] Serum or plasma non-glucuron idated bilirubin measurement (mass/volume)Ordered By: Susie Johnson on 04-03-2023 Bilirubin.indirect [Mass/Vol] 0.7 mg/dL [facility] Follow-Upon 02-24-2023 Follow-Up [id number] Jimenez Shelton tlarchana 1995 F Date Provider Department Center 02/24/2023 MARISA GARCIA [facility] Family History Family history unknown: Yes Level of Service:45513 CT OFFICE/OUTPATIENT ESTABLISHED SF MDM 10-19 MIN (GC) Reason for Visit and Comments: Follow-up [187462] Normal [facility] Office Visiton 02-17-2023 Follow-up visit [id number] Jimenez Shelton tlyn 1995 F Date Provider Department Center 02/17/2023 JAISON ARAGON ORTHO MPORTHO Family History Family history unknown: Yes Level of Service:65447 CT OFFICE/OUTPATIENT NEW LOW MDM 30-44 MINUTES Reason for Visit and Comments: Numbness [75] Normal [facility] XR Hand Complete Left*on XR Hand Complete Left* Findings: No fracture, dislocation, bone lesion. Joint spaces are maintained. IMPRESSION: Negative left hand. Report reported and signed by Rylan Signer on 09/30/2022 0745 Normal [facility] Litigation Paralegal XR Hand Complete Right*on XR Hand Complete Right* Findings: No fracture, dislocation, bone lesion. Joint spaces maintained. IMPRESSION: Negative right hand. Report reported and signed by Rylan Signer on 09/30/2022 0744 Normal [facility] Litigation Paralegal MICRO OTHER TESTSOrdered By: Kashif Bolaños on 07-20-2022 S. pyogenes Ag IA.rapid Ql (Throat) Negative (07/20/22 1:06 AM) Normal Negative [facility] Man Sero CHEMISTRYOrdered By: SYSTEM SYSTEM on 07-19-2022 Anion gap [Moles/Vol] 21 mmol/L High 6 - 16 mEq/L [facility] Calcium [Mass/Vol] 9.4 mg/dL Normal 8.9 - 11. 1 mg/dL [facility] Chloride [Moles/Vol] 97 mmol/L Low 101 - 1 11 mmol/L [facility] CO2 [Moles/Vol] 21 mmol/L Normal 21 - 31 mmol/L [facility] Creatinine [Mass/Vol] 0.9 mg/dL Normal 0.5 - 1.3 mg/dL [facility] GFR/1.73 sq M.predicted among blacks MDRD (S/P/Bld) [Vol rate/Area] mL/min/1.73 m2 Normal >=59mL/min /1.73 m2 [facility] Chem S GFR/1.73 sq M.predicted among non-blacks MDRD (S/P/Bld) [Vol rate/Area] mL/min/1.73 m2 Normal >=59mL/min /1.73 m2 [facility] Chem S Glucose [Mass/Vol] 89 mg/dL Normal 55 - 199 mg/dL [facility] Potassium [Moles/Vol] 3.7 mmol/L Normal 3.5 - 5.3 mmol/L [facility] Sodium [Moles/Vol] 135 mmol/L Normal 135 [...] 0.2 E9/L Normal 0.0 - 0.2 E9/L [facility] Eosinophils/100 WBC (Bld) 0.4 % Normal [...] 7.5 E9/L [facility]SS HEMATOLOGYOrdered By: Kashif Bolañso on 07-19-2022 Erythrocyte distribution width (RBC) [Ratio] [...] rate/Area] mL/min/1.73 m2 Normal >=59mL/min /1.73 m2 [facility] Chem S Glucose [Mass/Vol] 94 mg/dL Normal 55 - 199 mg/dL [facility] Potassium [Moles/Vol] 3.4 mmol/L Low 3.5 - 5.3 mmol/L [facility] Remisol Sodium [Moles/Vol] 139 mmol/L Normal 135 - 145 mmol/L [facility]isol Urea nitrogen [Mass/Vol] 14 mg/dL Normal 5 - 21 mg/dL [facility] Urea nitrogen/Creatinine [Mass ratio] 20 mg/mg Normal 10 - 20 [facility] 06-23-2022 S. pyogenes Org specific cx Ql (Throat) Positive [employer] Other Quick Strep [employer] Other Quick Strepon 04-16-2022 S. pyogenes Org specific cx Ql (Throat) Positive [facility] [employer] Other Quick Strep [facility] [employer] Other CBC AUTO DIFFon 03-22-2022 BASO # 0.1 103/ul Normal 0.0-0.1 Comment on above: Performed By: #### C BC #### [facility] [address] [address] [address] Adalberto Dimas Basophils/100 WBC (Bld) 0.2 % Normal 0.2-2.0 Comment on above: Performed By: #### C BC #### [facility] [address] [place] [address] Dr. Adalberto Dimas EO # 0.0 103/ul Normal 0.0-0.7 Comment on above: Performed By: #### C BC #### [facility] [address] [place] [address] Dr. Adalberto Dimas Eosinophils/100 WBC (Bld) 0.2 % Critically low 0.9-7.0 [facility] Comment on above: Performed By: #### C BC #### [facility] [address] [place] [address] Dr. Adalberto Dimas Erythrocyte distribution width (RBC) [Ratio] 12.0 % Normal 11.0-15.0 [facility] Comment on above: Performed By: #### C BC #### [facility] [address] [place] [address] Dr. Adalberto Dimas Hematocrit (Bld) [Volume fraction] 39.5 % Normal 36.0-48.0 [facility] Comment on above: Performed By: #### C BC #### [facility] [address] [place] [address] Dr. Adalberto Dimas Hemoglobin (Bld) [Mass/Vol] 13.9 g/dL Normal 12.0-16.0 Comment on above: Performed By: #### C BC #### [facility] [address] [place] [address] Dr. Adalberto Dimas IG # 0.08 10e3/ul Critically high 0.00-0.03 [facility] Comment on above: Performed By: #### C BC #### [facility] [address] [place] [address] Dr. Adalberto Dimas IG % 0.4 % Normal 0.0-0.5 Comment on above: Performed By: #### C BC #### [facility] [address] [place] [address] Dr. Adalberto Dimas LYMPH # 1.7 103/ul Normal 1.2-3.8 Comment on above: Performed By: #### C BC #### [facility] [address] [place] [address] Dr. Adalberto Dimas Lymphocytes/100 WBC (Bld) 7.6 % Critically low 20.5-60.0 Comment on above: Performed By: #### C BC #### [facility] [address] [place] [address] Dr. Adalberto Dimas MANUAL DIFF REQ NO Normal [facility] Comment on above: Performed By: #### C BC #### [facility] [address] [place] [address] Dr. Adalberto Dimas MCH (RBC) [Entitic mass] 32.5 pg Normal 26.7-34.0 Comment on above: Performed By: #### C BC #### [facility] [address] [place] [address] Dr. Adalberto Dimas MCHC (RBC) [Mass/Vol] 35.2 g/dL Normal 29.9-35.2 Comment on above: Performed By: #### C BC #### [facility] [address] [place] [address] Dr. Adalberto Dimas MCV (RBC) [Entitic vol] 92.3 fL Normal 81.0-99.0 Comment on above: Performed By: #### C BC #### [facility] [address] [place] [address] Dr. Adalberto Dimas MONO # 1.4 103/ul Critically high 0.3-0.8 [facility] Comment on above: Performed By: #### C BC #### [facility] [address] [address] [address] Adalberot Dimas Monocytes/100 WBC (Bld) 6.3 % Normal 1.7-12.0 Comment on above: Performed By: #### C BC #### [facility] [address] [place] [address] Dr. Adalberto Dimas NEUT # 18.8 103/ul Critically high 1.4-6.5 [facility] Comment on above: Performed By: #### C BC #### [facility] [address] [place] [address] Dr. Adalberto Dimas Neutrophils/100 WBC (Bld) 85.3 % Critically high 43.0-75.0 Comment on above: Performed By: #### C BC #### [facility] [address] [place] [address] Dr. Adalberto Dimas Platelet mean volume (Bld) [Entitic vol] 9.1 fL Critically low 9.5-13.5 [facility] Comment on above: Performed By: #### C BC #### [facility] [address] [place] [address] Dr. Adalberto Dimas PLT 267 103/ul Normal 150-450 [facility] Comment on above: Performed By: #### C BC #### [facility] [address] [place] [address] Dr. Adalberto Dimas RBC 4.28 106/ul Normal 4.20-5.40 [facility] Comment on above: Performed By: #### C BC #### [facility] [address] [place] [address] Dr. Adalberto Dimas WBC 22.0 103/ul Critically high 4.0-11.0 [facility] Comment on above: Performed By: #### C BC #### [facility] [address] [place] [address] Dr. Adalberto Dimas PROF 14(COMP METB)on 022 Albumin [Mass/Vol] 3.8 g/dL Normal 3.4-5.0 [facility] Comment on above: Performed By: #### C MP #### [facility] [address] [place] [address] Dr. Adalberto Dimas Albumin/Globulin [Mass ratio] 1.0 {ratio} Normal Comment on above: Performed By: #### C MP #### [facility] [address] [address] [address] Adalberto Dimas ALP [Catalytic activity/Vol] 97 U/L Normal 46-116 Comment on above: Performed By: #### C MP #### [facility] [address] [place] [address] Dr. Adalberto Dimas ALT [Catalytic activity/Vol] 17 U/L Normal 14-59 Comment on above: Performed By: #### C MP #### [facility] [address] [place] [address] Dr. Adalberto Dimas Anion gap [Moles/Vol] 12.5 mmol/L Normal [facility] Comment on above: Performed By: #### C MP #### [facility] [address] [place] [address] Dr. Adalberto Dimas AST [Catalytic activity/Vol] 12 U/L Critically low 15-37 Comment on above: Performed By: #### C MP #### [facility] [address] [place] [address] Dr. Adalberto Dimas Bilirubin [Mass/Vol] 2.9 mg/dL Critically high 0.2-1.0 Comment on above: Performed By: #### C MP #### [facility] [address] [place] [address] Dr. Adalberto Dimas Calcium [Mass/Vol] 8.7 mg/dL Normal 8.5-10.1 [facility] Comment on above: Performed By: #### C MP #### [facility] [address] [place] [address] Dr. Adalberto Dimas Chloride [Moles/Vol] 101 mmol/L Normal 98-107 Comment on above: Performed By: #### C MP #### [facility] [address] [address] [address] Adalberto Dimas CO2 [Moles/Vol] 27.0 mmol/L Normal 21.0-32.0 [facility] Comment on above: Performed By: #### C MP #### [facility] [address] [address] [address] Adalberto Dimas Creatinine [Mass/Vol] 0.87 mg/dL Normal 0.55-1.02 Comment on above: Performed By: #### C MP #### [facility] [address] [address] [address] Adalberto Dimas EGFR-AF NICARAGUAN >60 Normal >=60 [facility] Comment on above: Performed By: #### C MP #### [facility] [address] [place] [address] Dr. Adalberto Dimas EGFR-NON AF NICARAGUAN >60 Normal >=60 Comment on above: Performed By: #### C MP #### [facility] [address] [address] [address] Adalberto Dimas Globulin (S) [Mass/Vol] 3.9 g/dL Normal Comment on above: Performed By: #### C MP #### [facility] [address] [place] [address] Dr. Adalberto Dimas Glucose [Mass/Vol] 105 mg/dL Normal 74-106 [facility] Comment on above: Performed By: #### C MP #### [facility] [address] [address] [address] Adalberto Dimas Potassium [Moles/Vol] 3.5 mmol/L Normal 3.5-5.1 [facility] Comment on above: Performed By: #### C MP #### [facility] [address] [place] [address] Dr. Adalberto Dimas Protein [Mass/Vol] 7.7 g/dL Normal 6.4-8.2 [facility] Comment on above: Performed By: #### C MP #### [facility] [address] [address] [address] Adalberto Dimas Sodium [Moles/Vol] 137 mmol/L Normal 136-145 [facility] Comment on above: Performed By: #### C MP #### [facility] [address] [address] [address] Adalberto Dimas Urea nitrogen [Mass/Vol] 15.0 mg/dL Normal 7.0-18.0 Comment on above: Performed By: #### C MP #### [facility] [address] [address] [address] Adalberto Dimas Urea nitrogen/Creatinine [Mass ratio] 17.2 mg/mg Normal Comment on above: Performed By: #### C MP #### [facility] [address] [address] [address] Adalberto Dimas XR NECK SOFT TISSUEon [...] [place] Date: 2022-03-22 01:19 Normal [facility] Quick Strepon 03-21-2022 S. pyogenes Org specific cx Ql (Throat) Positive [employer] Other Quick Strep [facility] [employer] Other CBC AUTO DIFFon 11-17-2021 BASO # 0.0 103/ul Normal 0.0-0.1 Comment on above: Performed By: #### C BC #### [facility] [address] [address] [address] Adalberto Dimas Basophils/100 WBC (Bld) 0.3 % Normal 0.2-2.0 Comment on above: Performed By: #### C BC #### [facility] [address] [place] [address] Dr. Adalberto Dimas EO # 0.1 103/ul Normal 0.0-0.7 [facility] Comment on above: Performed By: #### C BC #### [facility] [address] [place] [address] Dr. Adalberto Dimas Eosinophils/100 WBC (Bld) 0.4 % Critically low 0.9-7.0 [facility] Comment on above: Performed By: #### C BC #### [facility] [address] [place] [address] Dr. Adalberto Dimas Erythrocyte distribution width (RBC) [Ratio] 12.2 % Normal 11.0-15.0 Comment on above: Performed By: #### C BC #### [facility] [address] [place] [address] Dr. Adalberto Dimas Hematocrit (Bld) [Volume fraction] 41.7 % Normal 36.0-48.0 Comment on above: Performed By: #### C BC #### [facility] [address] [place] [address] Dr. Adalberto Dimas Hemoglobin (Bld) [Mass/Vol] 14.1 g/dL Normal 12.0-16.0 Comment on above: Performed By: #### C BC #### [facility] [address] [place] [address] Dr. Adalberto iDmas IG # 0.02 10e3/ul Normal 0.00-0.03 [facility] Comment on above: Performed By: #### C BC #### [facility] [address] [place] [address] Dr. Adalberto Dimas IG % 0.2 % Normal 0.0-0.5 [facility] Comment on above: Performed By: #### C BC #### [facility] [address] [place] [address] Dr. Adalberto Dimas LYMPH # 1.8 103/ul Normal 1.2-3.8 [facility] Comment on above: Performed By: #### C BC #### [facility] [address] [address] [address] Adalberto Dimas Lymphocytes/100 WBC (Bld) 15.3 % Critically low 20.5-60.0 [facility] Comment on above: Performed By: #### C BC #### [facility] [address] [place] [address] Dr. Adalberto Dimas MANUAL DIFF REQ NO Normal [facility] Comment on above: Performed By: #### C BC #### [facility] [address] [address] [address] Adalberto Dimas MCH (RBC) [Entitic mass] 31.8 pg Normal 26.7-34.0 [facility] Comment on above: Performed By: #### C BC #### [facility] [address] [place] [address] Dr. Adalberto Dimas MCHC (RBC) [Mass/Vol] 33.8 g/dL Normal 29.9-35.2 [facility] Comment on above: Performed By: #### C BC #### [facility] [address] [place] [address] Dr. Adalberto Dimas MCV (RBC) [Entitic vol] 93.9 fL Normal 81.0-99.0 [facility] Comment on above: Performed By: #### C BC #### [facility] [address] [place] [address] Dr. Adalberto Dimas MONO # 1.1 103/ul Critically high 0.3-0.8 [facility] Comment on above: Performed By: #### C BC #### [facility] [address] [place] [address] Dr. Adalberto Dimas Monocytes/100 WBC (Bld) 9.0 % Normal 1.7-12.0 [facility] Comment on above: Performed By: #### C BC #### [facility] [address] [place] [address] Dr. Adalberto Dimas NEUT # 8.7 103/ul Critically high 1.4-6.5 [facility] Comment on above: Performed By: #### C BC #### [facility] [address] [place] [address] Dr. Adalberto Dimas Neutrophils/100 WBC (Bld) 74.8 % Normal 43.0-75.0 [facility] Comment on above: Performed By: #### C BC #### [facility] [address] [place] [address] Dr. Adalberto Dimas Platelet mean volume (Bld) [Entitic vol] 9.3 fL Critically low 9.5-13.5 [facility] Comment on above: Performed By: #### C BC #### [facility] [address] [place] [address] Dr. Adalberto Dimas PLT 262 103/ul Normal 150-450 [facility] Comment on above: Performed By: #### C BC #### [facility] [address] [place] [address] Dr. Adalberto Dimas RBC 4.44 106/ul Normal 4.20-5.40 [facility] Comment on above: Performed By: #### C BC #### [facility] [address] [place] [address] Dr. Adalberto Dimas WBC 11.6 103/ul Critically high 4.0-11.0 [facility] Comment on above: Performed By: #### C BC #### [facility] [address] [place] [address] Dr. Adalberto Dimas ER URINE PROFILEon 2 Bilirubin Ql (U) Negative Normal NEGATIVE [facility] Comment on above: Performed By: #### DARYL EDWARDSRO #### [facility] [address] [place] [address] Dr. Adalberto Dimas Clarity (U) CLEAR Normal CLEAR [facility] Comment on above: Performed By: #### DARYL EDWARDSRO #### [facility] [address] [place] [address] Dr. Adalberto Dimas Color (U) LT. YELLOW Normal YELLOW [facility] Comment on above: Performed By: #### DARYL EDWARDSRO #### [facility] [address] [place] [address] Dr. Adalberto Dimas ERUAHD A micrscopic examina tion will be performed if indicated. Normal [facility] Comment on above: Performed By: #### Gaby FROST UMICRO #### [facility] [address] [place] [address] Dr. Adalberto Dimas Glucose Ql (U) Negative Normal NEGATIVE [facility] Comment on above: Performed By: #### Gaby FROST UMICRO #### [facility] [address] [address] [address] Adalberto Dimas Hemoglobin Ql (U) Negative Normal NEGATIVE [facility] [facility] Comment on above: Performed By: #### Gaby FROST UMICRO #### [facility] [address] [place] [address] Dr. Adalberto Dimas Ketones Ql (U) Negative Normal NEGATIVE [facility] Comment on above: Performed By: #### Gaby FROST UMICRO #### [facility] [address] [place] [address] Dr. Adalberto Dimas LEUKOCYTES TRACE Abnormal NEGATIVE Comment on above: Performed By: #### Gaby FROST UMICRO #### [facility] [address] [place] [address] Dr. Adalberto Dimas Nitrite Ql (U) Negative Normal NEGATIVE [facility] Comment on above: Performed By: #### Gaby FROST UMICRO #### [facility] [address] [place] [address] Dr. Adalberto Dimas pH (U) 7.0 [pH] Normal 5-9 [facility] Comment on above: Performed By: #### Gaby FROST UMICRO #### [facility] [address] [place] [address] Dr. Adalberto Dimas SPEC GRAVITY 1.010 Normal 1.005-<=1. 025 Comment on above: Performed By: #### Gaby FROST UMICRO #### [facility] [address] [place] [address] Dr. Adalberto Dimas UA PROTEIN Negative Normal NEGATIVE/ TRACE [facility] Comment on above: Performed By: #### Gaby FROST UMICRO #### [facility] [address] [address] [address] Adalberto Dimas UR MICRO IND INDICATED Normal Comment on above: Performed By: #### E LUKE FROST #### [facility] [address] [place] [address] Dr. Adalberto Dimas Urobilinogen Qn (U) 0.2 {James'U}/dL Normal 0.2 - 1. 0 Comment on above: Performed By: #### LUKE EDWARDS #### [facility] [address] [place] [address] Dr. Adalberto Dimas PREG HCG QUALon 11-17-2021 , QUAL Negative Normal NEGATIVE [facility] Comment on above: Performed By: #### P REG #### [facility] [address] [place] [address] Dr. Adalberto Dimas PROF CHEM 8 (BAS METB)on Anion gap [Moles/Vol] 10.0 mmol/L Normal [facility] Comment on above: Performed By: #### B MP #### [facility] [address] [place] [address] Dr. Adalberto Dimas Calcium [Mass/Vol] 8.7 mg/dL Normal 8.5-10.1 [facility] Comment on above: Performed By: #### B MP #### [facility] [address] [place] [address] Dr. Adalberto Dimas Chloride [Moles/Vol] 104 mmol/L Normal 98-107 Comment on above: Performed By: #### B MP #### [facility] [address] [place] [address] Dr. Adalberto Dimas CO2 [Moles/Vol] 27.8 mmol/L Normal 21.0-32.0 [facility] Comment on above: Performed By: #### B MP #### [facility] [address] [place] [address] Dr. Adalberto Dimas Creatinine [Mass/Vol] 0.79 mg/dL Normal 0.55-1.02 Comment on above: Performed By: #### B MP #### [facility] [address] [address] [address] Adalberto Dimas EGFR-AF NICARAGUAN >60 Normal >=60 [facility] Comment on above: Performed By: #### B MP #### [facility] [address] [place] [address] Dr. Adalberto Dimas EGFR-NON AF NICARAGUAN >60 Normal >=60 Comment on above: Performed By: #### B MP #### [facility] [address] [address] [address] Adalberto Dimas Glucose [Mass/Vol] 96 mg/dL Normal 74-106 [facility] Comment on above: Performed By: #### B MP #### [facility] [address] [place] [address] Dr. Adalberto Dimas Potassium [Moles/Vol] 3.8 mmol/L Normal 3.5-5.1 Comment on above: Performed By: #### B MP #### [facility] [address] [place] [address] Dr. Adalberto Dimas Sodium [Moles/Vol] 138 mmol/L Normal 136-145 [facility] Comment on above: Performed By: #### B MP #### [facility] [address] [place] [address] Dr. Adalberto Dimas Urea nitrogen [Mass/Vol] 12.0 mg/dL Normal 7.0-18.0 Comment on above: Performed By: #### B MP #### [facility] [address] [address] [address] Adalberto Dimas Urea nitrogen/Creatinine [Mass ratio] 15.2 mg/mg Normal Comment on above: Performed By: #### B MP #### [facility] [address] [place] [address] Dr. Adalberto Dimas URINE MICROSCOPIC ONLYon BACTERIA TRACE Abnormal NONE SEEN [facility] Comment on above: Performed By: #### LUKE EDWARDS #### [facility] [address] [place] [address] Dr. Adalberto Dimas Bacteria identified Cx Nom (U) NOT INDICATED Normal [facility] Comment on above: Performed By: #### E RUR, UMICRO #### [facility] [address] [place] [address] Dr. Adalberto Dimas CAST NONE SEEN Normal NONE SEEN [facility] Comment on above: Performed By: #### E RUR, UMICRO #### [facility] [address] [place] [address] Dr. Adalberto Dimas Crystals LM Nom (Urine sed) NONE SEEN Normal NONE SEEN [facility] Comment on above: Performed By: #### E RUR, UMICRO #### [facility] [address] [place] [address] Dr. Adalberto Dimas Epithelial cells LM Ql (Urine sed) MODERATE Abnormal NONE SEEN /RARE [facility] Comment on above: Performed By: #### E RUR, UMICRO #### [facility] [address] [place] [address] Dr. Adalberto Dimas MUCOUS NONE SEEN Normal NONE SEEN [facility] Comment on above: Performed By: #### E RUR, UMICRO #### [facility] [address] [place] [address] Dr. Adalberto Dimas RBC NONE SEEN Abnormal 0-2 [facility] Comment on above: Performed By: #### E RUR, UMICRO #### [facility] [address] [place] [address] Dr. Adalberto Dimas WBC 0-2 Abnormal NONE SEEN [facility] Comment on above: Performed By: #### E RUR, UMICRO #### [facility] [address] [place] [address] Dr. Adalberto Dimas Complete Blood Count with Au to Diffon 10-02-2021 Basophils (Bld) [#/Vol] 0.04 10*3/uL Normal 0.00-0.20 [facility] [employer] Comment on above: Performed By: #### F ERR, FE Prof, CBCAD, RETIC #### [facility] [address] [place], [place] [id number] Basophils/100 WBC (Bld) 0.5 % Normal [facility] Comment on above: Performed By: #### F ERR, FE Prof, CBCAD, RETIC #### [facility] [address] [place], [place] [id number] Eosinophils (Bld) [#/Vol] 0.04 10*3/uL Normal 0.02-0.50 [facility] [employer] Comment on above: Performed By: #### F ERR, FE Prof, CBCAD, RETIC #### [facility] [address] [place], [place] [id number] Eosinophils/100 WBC (Bld) 0.5 % Normal [facility] Specialist Comment on above: Performed By: #### F ERR, FE Prof, CBCAD, RETIC #### [facility] [address] [place], [place] [id number] Erythrocyte distribution width (RBC) [Ratio] 12.5 % Normal 11.0-15.0 [facility] [employer] Comment on above: Performed By: #### F ERR, FE Prof, CBCAD, RETIC #### [facility] [address] [place], [place] [id number] Hematocrit (Bld) [Volume fraction] 41.0 % Normal 35.0-47.0 [facility] [employer] Comment on above: Performed By: #### F ERR, FE Prof, CBCAD, RETIC #### [facility] [address] [place], [place] [id number] Hemoglobin (Bld) [Mass/Vol] 13.7 g/dL Normal 11.6-15.5 [facility] [employer] Comment on above: Performed By: #### F ERR, FE Prof, CBCAD, RETIC #### [facility] [address] [place], [place] [id number] Lymphocytes (Bld) [#/Vol] 2.1 10*3/uL Normal 0.9-3.9 [facility] Specialist Comment on above: Performed By: #### F ERR, FE Prof, CBCAD, RETIC #### [facility] [address] [place], [place] [id number] Lymphocytes/100 WBC (Bld) 24.2 % Normal [facility] Specialist Comment on above: Performed By: #### F ERR, FE Prof, CBCAD, RETIC #### [facility] [address] [place], [place] [id number] MCH (RBC) [Entitic mass] 31.6 pg Normal 27.0-33.0 [facility] Specialist Comment on above: Performed By: #### F MADY FE Prof, CBCAD, RETIC #### [facility] [address] [place], [place] [id number] MCHC (RBC) [Mass/Vol] 33.4 g/dL Normal 32.0-36.0 [facility] Comment on above: Performed By: #### F ERR FE Prof, CBCAD, RETIC #### [facility] [address] [place], [place] [id number] MCV (RBC) [Entitic vol] 95 fL Normal 80-100 [facility] Specialist Comment on above: Performed By: #### F MADY, FE Prof, CBCAD, RETIC #### [facility] [address] [place], [place] [id number] Monocytes (Bld) [#/Vol] 0.7 10*3/uL Normal 0.2-0.[address] [facility] Comment on above: Performed By: #### F MADY FE Prof, CBCAD, RETIC #### [facility] [address] [place], [place] [id number] Monocytes/100 WBC (Bld) 7.9 % Normal [facility] Comment on above: Performed By: #### F ERR, FE Prof, CBCAD, RETIC #### [facility] [address] [place], [place] [id number] Neutrophils (Bld) [#/Vol] 5.7 10*3/uL Normal 1.5-7.8 [facility] Specialist Comment on above: Performed By: #### F ERR, FE Prof, CBCAD, RETIC #### [facility] [address] [place], [place] [id number] Neutrophils/100 WBC (Bld) 66.5 % Normal [facility] Comment on above: Performed By: #### F ERR, FE Prof, CBCAD, RETIC #### [facility] [address] [facility] [place] [id number] Platelet mean volume (Bld) [Entitic vol] 9.80 fL Normal 7.50-12.50 [facility] Comment on above: Performed By: #### F ERR, FE Prof, CBCAD, RETIC #### [facility] [address] [place], [place] [id number] Platelets (Bld) [#/Vol] 253 10*3/uL Normal 140-400 [facility] Specialist Comment on above: Performed By: #### F ERR, FE Prof, CBCAD, RETIC #### [facility] [address] [place], [place] [id number] RBC (Bld) [#/Vol] 4.34 10*6/uL Normal 3.90-5.20 [facility] Comment on above: Performed By: #### F ERR, FE Prof, CBCAD, RETIC #### [facility] [address] [place], [place] [id number] RDW-SD 43.6 fL Normal 37.0-50.0 [facility] Specialist Comment on above: Performed By: #### F ERR, FE Prof, CBCAD, RETIC #### [facility] [address] [place], [place] [id number] WBC (Bld) [#/Vol] 8.6 10*3/uL Normal 3.8-11.0 [facility] Comment on above: Performed By: #### F ERR, FE Prof, CBCAD, RETIC #### [facility] [address] [place], [place] [id number] Ferritinon 10-02-2021 FERR 77.1 ng/mL Normal 15.0-150.0 [facility] Specialist Comment on above: Performed By: #### F ERR, FE Prof, CBCAD, RETIC #### [facility] [address] [place], [place] [id number] Iron Profileon 10-02-2021 %FESAT 22 % Normal 11-50 [facility] Specialist Comment on above: Performed By: #### F ERR, FE Prof, CBCAD, RETIC #### [facility] [address] [place], [place] [id number] FE 67 ug/dL Normal 40-190 [facility] Specialist Comment on above: Result Comment: Refe rence range change 04/10/2017. Prior reference range F 37-145 ug/dL, M 59-158 ug/dL. Performed By: #### F ERR, FE Prof, CBCAD, RETIC #### [facility] [address] [place], [place] [id number] TIBC 300 ug/dL Normal 250-[address] [facility] Comment on above: Performed By: #### F ERR, FE Prof, CBCAD, RETIC #### [facility] [address] [place], [place] [id number] UIBC 233 ug/dL Normal 112-347 [facility] Specialist Comment on above: Performed By: #### F ERR, FE Prof, CBCAD, RETIC #### [facility] [address] [place], [place] [id number] Q - PROTHROMBIN TIME WITH IN Tyson 10-02-2021 INR Coag (PPP) [Relative time] 1.0 {INR} Normal [facility] Comment on above: Order Comment: [facility] performed at: [facility], [employer] [facility], [address] [place] [address], [address] [place] [address], [phone], Disability Hearing Officer: Blade Vazquez MD [facility] Date/Time: [facility] Results Received Date/Time: [facility] Reported Date/Time: Result Comment: Refe rence Range 0.9-1.1 Moderate-intensity Warfarin Therapy 2.0-3.0 Higher-intensity Warfarin Therapy 3.0-4.0 Performed By: #### 2 6F, 763X, 4919X #### [facility] [address] [place] [address] PT Coag (PPP) [Time] 9.7 s Normal 9.0-11.5 [facility] Comment on above: Order Comment: [facility] performed at: [facility], [employer] [facility], [address] [place] [address], [address] [place] [address], [phone], Disability Hearing Officer: Blade Vazquez MD [facility] Date/Time: [facility] Results Received Date/Time: [facility] Reported Date/Time: Result Comment: For additional information, please refer to http://education.Greats/faq/AUQ366 (This link is being provided for informational/ educational purposes only.) Performed By: #### 2 6F, 763X, 4919X #### [facility] [address] [place] [address] Q - PTTon 10-02-2021 PARTIAL THROMBOPLASTIN TIME, ACTIVATED 30 sec Normal 23-[address] [facility] Comment on above: Order Comment: [facility] performed at: [facility], [employer] [facility], [address], [address] [place], [address], Disability Hearing Officer: Blade Vazquez MD [facility] Date/Time: [facility] Results Received Date/Time: [facility] Reported Date/Time: Result Comment: This test has not been validated for monitoring unfractionated heparin therapy. For testing that is validated for this type of therapy, please refer to the Heparin Anti-Xa assay (test code 55697). For additional information, please refer to http://education.Ecochlor/faq/BHQ544 (This link is being provided for informational/educational purposes only.) Performed By: #### 2 6F, 763X, 4919X #### [facility] [address] [place] [address] Q - VON WILLEBRAND FACTOR AN TIGENon 10-02-2021 VON WILLEBRAND FACTOR ANTIGEN 74 % Normal 50-[address] [facility] Comment on above: Order Comment: [facility] performed at: [facility], [employer], [address] [facility] , [place], [place], , Disability Hearing Officer: Keven Crowley M.D.,PhD [facility] Date/Time: [facility] Results Received Date/Time: [facility] Reported Date/Time: Performed By: #### 2 6F, 763X, 4919X #### [facility] [address] [place] [address] RETICon 10-02-2021 IRF 8.90 % High 0.01-0.[address] [facility] Comment on above: Performed By: #### F ERR, FE Prof, CBCAD, RETIC #### [facility] [address] [place], [place] [id number] RET# 0.07 M/uL Normal 0.02-0.10 [facility] Litigation Paralegal Comment on above: Performed By: #### F ERR, FE Prof, CBCAD, RETIC #### [facility] [address] [place], [place] [id number] Ret% 1.51 % Normal 0.40-1.80 [facility] Litigation Paralegal Comment on above: Performed By: #### F ERR, FE Prof, CBCAD, RETIC #### [facility] [address] [place], [place] [id number] RET-HE 36.90 pg Normal 31.90-37.1 0 [facility] Litigation Paralegal Comment on above: Performed By: #### F ERR, FE Prof, CBCAD, RETIC #### [facility] [address] [place], [place] [id number] Vitamin B12/Folateon 022 Cobalamin (Vitamin B12) [Mass/Vol] 408 pg/mL Normal 211-946 [facility] Litigation Paralegal Comment on above: Performed By: #### B 12/Fol #### [facility] [address] [place], [place] [id number] FOL 8.6 ng/mL Normal >4.7 [facility] Litigation Paralegal Comment on above: Result Comment: Refe rence range change 04/10/2017. Prior reference range F 4.8-37.3 ng/mL, M 4.5-32.2 ng/mL. Performed By: #### B 12/Fol #### [facility] [address] [place], [place] [id number] XR knee LT 4V*on 07-20-2021 XR knee LT 4V* [facility] [employer] Other XR knee LT 4V* [facility] [employer] Other XR knee LT 4V* [address] [place] [address] [employer] Other XR knee LT 4V* [place] [address] No [facility] [employer] Other XR knee LT 4V* XRay Report [employer] Other XR knee LT 4V* Signed [employer] Other XR knee LT 4V* Patient: Erma Almazan MR#: [id number] [employer] Other XR knee LT 4V* 184 [employer] Other XR knee LT 4V* : 1995 Acct:[id number] [employer] Other XR knee LT 4V* Age/Sex: 26 / F ADM Date: 07/20/21 [employer] Other XR knee LT 4V* Loc: [id number] Room: pe: [facility] [employer] Other XR knee LT 4V* Attending Dr: Asim Palma GREY GOODS MARKER-C [employer] Other XR knee LT 4V* Ordering Provider: Tony Palma COMPUTING TUTOR-C [employer] Other XR knee LT 4V* Date of Service: 07/20/21 [employer] Other XR knee LT 4V* XR/XR knee LT 4V*: Acute pain of left knee [employer] Other XR knee LT 4V* Copies to: Asim Palma COMPUTING TUTOR-C [employer] Other XR knee LT 4V* Left knee 07/20/2021. [employer] Other XR knee LT 4V* CLINICAL DATA: Left knee pain. No known injury. [employer] Other XR knee LT 4V* FINDINGS: 4 views of the left knee were obtained. [employer] Other XR knee LT 4V* No acute fracture or dislocation is identified. No early degenerative or other arthritic changes [employer] Other XR knee LT 4V* are seen. No bony er osion or destruction is visualized. There is no suprapatellar effusion. [employer] Other XR knee LT 4V* X R/XR knee LT 4V* [employer] Other XR knee LT 4V* IMPRESSION: No acute bony abnormality or effusion. [employer] Other XR knee LT 4V* Impression dictated by: Quinn Weston Jr., M.D.07/20/2021 1:51 PM [employer] Other XR knee LT 4V* Dictation Location: [place] [address] [employer] Other XR knee LT 4V* Transcribed By: CATRINA 07/20/21 [facility] [employer] Other XR knee LT 4V* Dictated By: Quinn Weston Jr, MD 07/20/21 [facility] [employer] Other XR knee LT 4V* Signed By: [employer] Other XR knee LT 4V* 07/20/21 [facility] [email or web address] Other CT ABDOMEN PELVIS WO CONTRAS Ton [...] menstrual changes, no trauma, R/O nephrolithiasis, 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 NoneOrdered By: Denton Barr on 12-08-2020 1. No acute intra-abdominal abnormality. 2. Hepatic steatosis. Multiple areas of increased attenuation in the hepatic lobes, likely fatty sparing. 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 Bones/Soft Tissues: No acute osseous abnormality. 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 [employer] Phone: [employer] Phone: BASIC METABOLIC PANELOrdered By: Denton Barr on 12-07-2020 Anion gap [Moles/Vol] 10 mmol/L 9 - 17 mmol/L [employer] Phone: Calcium [Mass/Vol] 8.7 mg/dL 8.6 - 10. 4 mg/dL [employer] Phone: Chloride [Moles/Vol] 103 mmol/L 98 - 10 7 mmol/L [employer] Phone: CO2 [Moles/Vol] 25 mmol/L 20 - 31 mmol/L [employer] Phone: Creatinine [Mass/Vol] 0.68 mg/dL 0.50 - 0.90 mg/dL [employer] Phone: GFR >60 >60 mL/min [employer] Phone: GFR Non- >60 >60 mL/min [employer] Phone: GFR/1.73 sq M.predicted MDRD (S/P/Bld) [Vol rate/Area] [employer] Phone: Comment on above: Average GFR for 20-2 9 years old: 116 mL/min/1.73sq m Chronic Kidney Disease: <60 mL/min/1.73sq m Kidney failure: <15 mL/min/1.73sq m eGFR calculated using average adult body mass. Additional eGFR calculator available at: http://www.Zivity/multiple_crcl_2012.htm GFR/1.73 sq M.predicted MDRD (S/P/Bld) [Vol rate/Area] NOT REPORTED [employer] Phone: Glucose [Mass/Vol] 108 mg/dL High 70 - 99 mg/dL [employer] Phone: Interpretation and review of laboratory results Abnormal [employer] Phone: Potassium [Moles/Vol] 4.1 mmol/L 3.7 - 5.3 mmol/L [employer] Phone: Sodium [Moles/Vol] 138 mmol/L 135 - 144 mmol/L [employer] Phone: Urea nitrogen (BldV) [Mass/Vol] 12 mg/dL 6 - 20 mg/dL [facility] [employer] Work Phone: Urea nitrogen/Creatinine (Bld) [Mass ratio] NOT REPORTED [facility] Work Phone: [facility] [employer] Work Phone: Basic Metabolic Profon 12-07 (cont.) Normal [facility] Comment on above: Result Comment: Aver age GFR for 20-29 years old: 116 mL/min/1.73sq m Chronic Kidney Disease: <60 mL/min/1.73sq m Kidney failure: <15 mL/min/1.73sq m eGFR calculated using average adult body mass. Additional eGFR calculator available at: http://www.Zivity/multiple_crcl_2012.htm Performed By: #### C DP, HCG, BMP #### [facility] [employer] [address] [place] [address] Broom Handle Dipper: Lloyd Vela MD Anion gap [Moles/Vol] 10 mmol/L Normal 9-17 [facility] Comment on above: Performed By: #### C DP, HCG, BMP #### [facility] [address] [place] [address] Broom Handle Dipper: Lloyd Vela MD Calcium [Mass/Vol] 8.7 mg/dL Normal 8.6-10.4 [facility] Comment on above: Performed By: #### C DP, HCG, BMP #### [facility] [address] [place] [address] Broom Handle Dipper: Lloyd Vela MD Chloride [Moles/Vol] 103 mmol/L Normal 98-107 [facility] Comment on above: Performed By: #### C DP, HCG, BMP #### [facility] [address] [place] [address] Broom Handle Dipper: Lloyd Vela MD CO2 [Moles/Vol] 25 mmol/L Normal 20-31 [facility] Comment on above: Performed By: #### C DP, HCG, BMP #### [address] [address] Broom Handle Dipper: Lloyd Vela MD Creatinine [Mass/Vol] 0.68 mg/dL Normal 0.50-0.90 [facility] Comment on above: Performed By: #### C DP, HCG, BMP #### [address] [address] Broom Handle Dipper: Lloyd Vela MD GFR, Amer >60 Normal >60 [facility] Comment on above: Performed By: #### C DP, HCG, BMP #### [facility] [employer] [address] [place] [address] Broom Handle Dipper: Lloyd Vela MD GFR,non Amer >60 Normal >60 [facility] Comment on above: Performed By: #### C DP, HCG, BMP #### [address] [address] Broom Handle Dipper: Lloyd Vela MD Glucose [Mass/Vol] 108 mg/dL High 70-99 [facility] Comment on above: Performed By: #### C DP, HCG, BMP #### [address] [address] Broom Handle Dipper: Lloyd Vela MD Potassium [Moles/Vol] 4.1 mmol/L Normal 3.7-5.3 [facility] Comment on above: Performed By: #### C DP, HCG, BMP #### [address] [address] Broom Handle Dipper: Lloyd Vela MD Sodium [Moles/Vol] 138 mmol/L Normal 135-144 [facility] Comment on above: Performed By: #### C DP, HCG, BMP #### [facility] [employer] [address] [place] [address] [place] [address] Broom Handle Dipper: Llyod Vela MD Urea nitrogen [Mass/Vol] 12 mg/dL Normal -20 [facility] Comment on above: Performed By: #### C DP, HCG, BMP #### [facility] [address] [place] [address] Broom Handle Dipper: Lloyd Vela MD BUN/CRE Ratio NOT REPORTED Normal - [facility] Comment on above: Performed By: #### C DP, HCG, BMP #### [facility] [address] [place] [address] [employer]: Lloyd Vela MD Staging: NOT REPORTED Normal [facility] Comment on above: Performed By: #### C DP, HCG, BMP #### [facility] [address] [place], [place] [id number] Broom Handle Dipper: Lloyd Vela MD CBC WITH AUTO DIFFERENTIALOr dered By: Denton Barr on 12-07-2020 Absolute Eos # 0.07 [employer] [facility] Work Phone: Absolute Immature Granulocyte 0.05 [employer] Work Phone: Absolute Lymph # 3.21 [employer] [facility] Work Phone: Absolute [place] # 0.94 [employer] [facility] Work Phone: Basophils (Bld) [#/Vol] 0.04 10*3/uL [employer] Work Phone: Basophils/100 WBC (Bld) 0 % 0 - 2 % [employer] Work Phone: Differential Type NOT REPORTED [employer] Work Phone: Eosinophils/100 WBC (Bld) 1 % 1 - 4 % [employer] Work Phone: Hematocrit (Bld) [Volume fraction] 39.2 % 36.3 - 47.1 % [employer] Work Phone: Hemoglobin.gastrointes tinal spec 1 Ql (Stl) 13.1 g/dL 11.9 - 15.1 g/dL [employer] Phone: Immature granulocytes/100 WBC (Bld) 0 % 0 [employer] Phone: Interpretation and review of laboratory results Abnormal [employer] Phone: Lymphocytes/100 WBC (Bld) 27 % 24 - 43 % [employer] Phone: MCH (RBC) [Entitic mass] 31.0 pg 25.2 - 33.5 pg [employer] Phone: MCHC (RBC) [Mass/Vol] 33.4 g/dL 28.4 - 34.8 g/dL [employer] Phone: MCV (RBC) [Entitic vol] 92.9 fL 82.6 - 102.9 fL [employer] Phone: Monocytes/100 WBC (Bld) 8 % 3 - 12 % [employer] Phone: NRBC Automated 0.0 0.0 per 100 WBC [employer] Phone: Platelet distribution width (Bld) [Ratio] 12.3 % 11.8 - 14.4 % [employer] Phone: Platelet Estimate NOT REPORTED [employer] Phone: Platelet mean volume (Bld) [Entitic vol] 9.0 fL 8.1 - 13.5 fL [employer] Phone: Platelets (Bld) [#/Vol] 314 10*3/uL [employer] Phone: RBC (Bld) [#/Vol] 4.22 10*6/uL 3.95 - 5.11 m/uL [employer] Phone: RBC (Bld) [#/Vol] NOT REPORTED [employer] Phone: Segmented neutrophils/100 WBC (Bld) 64 % 36 - 65 % [employer] Work Phone: Segs [employer] 7[employer]42 [employer] Work Phone: WBC (Bld) [#/Vol] 11.7 10*3/uL High [employer] Work Phone: WBC (Bld) [#/Vol] NOT REPORTED [employer] Phone: [employer] Work Phone: CBC with Diffon 12-07-2020 Abs. Basophil 0.04 k/uL Normal 0.00-0.20 [facility] Comment on above: Performed By: #### C DP, HCG, BMP #### [place] [address] [employer]: Lloyd Vela MD Abs.Imm.Granulocyte 0.05 k/uL Normal 0.00-0.30 [facility] Comment on above: Performed By: #### C DP, HCG, BMP #### [place] [address] B[employer] Handle [employer]: Lloyd Vela MD Abs.Neutrophil (Seg) 7.42 k/uL Normal 1.50-8.10 [facility] Comment on above: Performed By: #### C DP, HCG, BMP #### [facility] [employer] [address] [place] [address] Broom Handle Dipper: Lloyd Vela MD Basophils/100 WBC (Bld) 0 % Normal 0-2 [facility] Comment on above: Performed By: #### C DP, HCG, BMP #### [facility] [employer] [address] [place] [address] [employer]: Lloyd Vela MD Eosinophils (Bld) [#/Vol] 0.07 10*3/uL Normal 0.00-0.44 [facility] Comment on above: Performed By: #### C DP, HCG, BMP #### [facility] [employer] [address] [place] [address] [employer]: Lloyd Vela MD Eosinophils/100 WBC (Bld) 1 % Normal 1-4 [facility] Comment on above: Performed By: #### C DP, HCG, BMP #### [facility] [employer] [address] [place] [address] B[employer]pper: Lloyd Vela MD Immature granulocytes/100 WBC (Bld) 0 % Normal 0 [facility] Comment on above: Performed By: #### C DP, HCG, BMP #### [address] [address] [employer]: Lloyd Vela MD Lymphocytes (Bld) [#/Vol] 3.21 10*3/uL Normal 1.10-3.70 [facility] Comment on above: Performed By: #### C DP, HCG, BMP #### [address] [address] [employer]pper: Lloyd Vela MD Lymphocytes/100 WBC (Bld) 27 % Normal 24-43 [facility] Comment on above: Performed By: #### C DP, HCG, BMP #### [address] [address] [employer]: Lloyd Vela MD Monocytes (Bld) [#/Vol] 0.94 10*3/uL Normal 0.10-1.20 [facility] Comment on above: Performed By: #### C DP, HCG, BMP #### [facility] [employer] [address] [place] [address] B[employer]: Lloyd Vela MD Monocytes/100 WBC (Bld) 8 % Normal 3-12 [facility] Comment on above: Performed By: #### C DP, HCG, BMP #### [facility] [address] [place] [address] [place] [address] [employer]pper: Lloyd Vela MD Neutrophil (Seg) 64 % Normal 36-65 [facility] Comment on above: Performed By: #### C DP, HCG, BMP #### [facility] [address] [place] [address] B[employer]pper: Lloyd Vela MD Erythrocyte distribution width (RBC) [Ratio] 12.3 % Normal 11.8-14.4 [facility] Comment on above: Performed By: #### C DP, HCG, BMP #### [facility] [address] [place] [address] Broom [employer]pper: Lloyd Vela MD Hematocrit (Bld) [Volume fraction] 39.2 % Normal 36.3-47.1 [facility] Comment on above: Performed By: #### C DP, HCG, BMP #### [facility] [employer] [address] [place] [address] Broom [employer] Dipper: Lloyd Vela MD Hemoglobin (Bld) [Mass/Vol] 13.1 g/dL Normal 11.9-15.1 [facility] Comment on above: Performed By: #### C DP, HCG, BMP #### [facility] [employer] [address] [place] [address] Broom [employer] Dipper: Lloyd Vela MD MCH (RBC) [Entitic mass] 31.0 pg Normal 25.2-33.5 [facility] Comment on above: Performed By: #### C DP, HCG, BMP #### [facility] [address] [place] [address] Broom Handle Dipper: Lloyd Vela MD MCHC (RBC) [Mass/Vol] 33.4 g/dL Normal 28.4-34.8 [facility] Comment on above: Performed By: #### C DP, HCG, BMP #### [facility] [employer] [address] [place] [address] Broom Handle Dipper: Lloyd Vela MD MCV (RBC) [Entitic vol] 92.9 fL Normal 82.6-102.9 [facility] Comment on above: Performed By: #### C DP, HCG, BMP #### [address] [address] Broom Handle Dipper: Lloyd Vela MD NRBC Automated 0.0 per 100 WBC Normal 0.0 [facility] Comment on above: Performed By: #### C DP, HCG, BMP #### [facility] [employer] [address] [place] [address] Broom Handle Dipper: Lloyd Vela MD Platelet mean volume (Bld) [Entitic vol] 9.0 fL Normal 8.1-13.5 [facility] Comment on above: Performed By: #### C DP, HCG, BMP #### [address] [address] [employer]: Lloyd Vela MD Platelets (Bld) [#/Vol] 314 10*3/uL Normal 138-453 [facility] Comment on above: Performed By: #### C DP, HCG, BMP #### [address] [address] [employer]pper: Lloyd Vela MD RBC (Bld) [#/Vol] 4.22 10*6/uL Normal 3.95-5.11 [facility] Comment on above: Performed By: #### C DP, HCG, BMP #### [facility] [employer] [address] [place] [address] Broom Handle Dipper: Lloyd Vela MD WBC (Bld) [#/Vol] 11.7 10*3/uL High 3.5-11.3 [facility] Comment on above: Performed By: #### C DP, HCG, BMP #### [address] [address] Broom Handle Dipper: Lloyd Vela MD Auto Diff Performed NOT REPORTED Normal [facility] Comment on above: Performed By: #### C DP, HCG, BMP #### [facility] [place] [address] Broom Handle Dipper: Lloyd Vela MD Platelet Estimate NOT REPORTED Normal [facility] Comment on above: Performed By: #### C DP, HCG, BMP #### [facility] [address] [place] [address] Broom Handle Dipper: Lloyd Vela MD RBC morphology finding Nom (Bld) NOT REPORTED Normal [facility] Comment on above: Performed By: #### C DP, HCG, BMP #### [facility] [address] [place] [address] Broom Handle Dipper: Lloyd Vela MD WBC Morphology NOT REPORTED Normal [facility] Comment on above: Performed By: #### C DP, HCG, BMP #### [facility] [address] [place] [address] Broom Handle Dipper: Lloyd Vela MD HCG Qualitative, SerumOrdere d By: Denton Barr on 12-07-2020 hCG Qual Negative NEGATIVE [employer] Phone: Comment on above: Specimens with hCG l evels near the threshold of the test (25 mIU/mL) may give a negative or indeterminate result. In such cases, another test should be performed with a new specimen in 48-72 hours. If early is suspected clinically in this setting, correlation with quantitative serum b-hCG level is suggested. [employer] has confirmed the use of plasma for this test. This has not been cleared or approved by the U.S. Food and Drug Administration. The FDA has determined that such clearance is not necessary. [employer] Phone: HCG Screen, Bloodon 12-08-19 21 HCG Screen, Blood Negative Normal NEG [facility] Comment on above: Result Comment: Spec imens with hCG levels near the threshold of the test (25 mIU/mL) may give a negative or indeterminate result. In such cases, another test should be performed with a new specimen in 48-72 hours. If early is suspected clinically in this setting, correlation with quantitative serum b-hCG level is suggested. [employer] has confirmed the use of plasma for this test. This has not been cleared or approved by the U.S. Food and Drug Administration. The FDA has determined that such clearance is not necessary. Performed By: #### C DP, HCG, BMP #### [employer] [address] [place] [address] Broom Handle Dipper: Lloyd Vela MD Microscopic UrinalysisOrdere d By: Denton Barr on 12-07-2020 - [employer] Work Phone: Amorphous, UA NOT REPORTED None [facility]Send[facility] Work Phone: Bacteria, UA FEW Abnormal None [facility] [employer] Work Phone: Casts UA NOT REPORTED [facility] Work Phone: Crystals, UA NOT REPORTED None /HPF [facility] Work Phone: Epithelial Cells UA 2 TO 5 [facility] Work Phone: Interpretation and review of laboratory results Abnormal [facility] Work Phone: Mucus, UA NOT REPORTED None [facility] [employer] Work Phone: Other Observations UA NOT REPORTED NOT REQ. M [facility] [employer] Work Phone: RBC, UA 2 TO 5 [facility] Work Phone: Comment on above: Reference range defi hafsa for non-centrifuged specimen. Renal Epithelial, UA NOT REPORTED 0 /HPF [facility] Work Phone: Trichomonas, UA NOT REPORTED None [facility] [employer] Work Phone: WBC, UA 5 TO 10 [facility] [employer] Work Phone: Yeast, UA NOT REPORTED None [facility] [employer] Work Phone: [facility] [employer] Work Phone: UA w/Reflex Culture[employer] 2020 Bilirubin, SemiQt,Ur Negative Normal NEG [facility] Comment on above: Performed By: #### U MICAO, UAX #### [facility] [address] [address] Broom Handle Dipper: Lloyd Vela MD Blood, Urine TRACE Abnormal NEG [facility] Comment on above: Performed By: #### U MICAO, UAX #### [facility] [address] [place] [address] Broom Handle Dipper: Lloyd Vela MD Clarity (U) CLEAR Normal CLEAR [facility] Comment on above: Performed By: #### U MICAO, UAX #### [address] [address] Broom Handle Dipper: Lloyd Vela MD Color (U) YELLOW Normal YEL [facility] Comment on above: Performed By: #### U MICAO, UAX #### [facility] [employer] [address] [place] [address] Broom Handle Dipper: Lloyd Vela MD Glucose Ql (U) Negative Normal NEG [facility] Comment on above: Performed By: #### U MICAO, UAX #### [address] [address] Broom Handle Dipper: Lloyd Vela MD Ketones Ql (U) Negative Normal NEG [facility] Comment on above: Performed By: #### U MICAO, UAX #### [address] [address] Broom [employer] Dipper: Lloyd Vela MD Leukocyte esterase Test strip Ql (U) Negative Normal NEG [facility] Comment on above: Performed By: #### U MICAO, UAX #### [address] [address] Broom Handle Dipper: Lloyd Vela MD Nitrite,Ur Negative Normal NEG [facility] Comment on above: Performed By: #### U MICAO, UAX #### [facility] [address] [place] [address] Broom Handle Dipper: Lloyd Vela MD PH,Ur 5.5 Normal 5.0-8.0 [facility] Comment on above: Performed By: #### U MICAO, UAX #### [facility] [address] [place] [address] Broom [employer] Dipper: Lloyd Vela MD Protein Ql (U) Negative Normal NEG [facility] Comment on above: Performed By: #### U MICAO, UAX #### [address] [address] [employer]room [employer] Dipper: Lloyd Vela MD Spec. [place],Ur 1.020 Normal 1.005-1.03 0 [facility] Comment on above: Performed By: #### U MICAO, UAX #### [address] [address] Broom Handle Dipper: Lloyd Vela MD Urobilinogen,Ur Normal Normal NORM [facility] Comment on above: Performed By: #### U MICAO, UAX #### [address] [address] Broom Handle Dipper: Lloyd Vela MD Comment NOT REPORTED Normal [facility] Comment on above: Performed By: #### U MICAO, UAX #### [facility] [employer] [address] [place] [address] Broom Handle Dipper: Lloyd Vela MD Urinalysis Reflex to Culture Ordered By: Denton Barr on 12-07-2020 Bilirubin Urine Negative NEGATIVE [facility] Work Phone: Color, UA YELLOW YELLOW [facility] Work Phone: Glucose, Ur Negative NEGATIVE [facility] Work Phone: Interpretation and review of laboratory results Abnormal [facility] Work Phone: Ketones Ql (U) Negative NEGATIVE [facility] Work Phone: Leukocyte esterase Test strip Ql (U) Negative NEGATIVE [facility] Work Phone: Nitrite, Urine Negative NEGATIVE [facility] Work Phone: pH, UA 5.5 [facility] [employer] Work Phone: Protein, UA Negative NEGATIVE [facility] [employer] Work Phone: Specific [place], UA 1.020 [facility] [employer] Work Phone: Turbidity UA CLEAR CLEAR [facility] [employer] Work Phone: Urinalysis Comments NOT REPORTED [facility] [employer] Work Phone: Urine Hgb TRACE Abnormal NEGATIVE [facility] [employer] Work Phone: Urobilinogen, Urine Normal Normal [facility] [employer] Work Phone: [facility] [employer] Work Phone: Urinalysis,Microon 1 ----- Normal [facility] Comment on above: Performed By: #### U MICAO, UAX #### [employer] [address] [place] [address] Broom Handle Dipper: Lloyd Vela MD Bacteria FEW Abnormal NONE [facility] Comment on above: Performed By: #### U MICAO, UAX #### [employer] [address] [place] [address] Broom Handle Dipper: Lloyd Vela MD Epithelial cells LM Ql (Urine sed) 2 TO 5 Normal 0-5 [facility] Comment on above: Performed By: #### U MICAO, UAX #### [employer] [address] [place] [address] [employer] Dipper: Lloyd Vela MD Urine RBC's 2 TO 5 Normal 0-4 [facility] Comment on above: Result Comment: Refe rence range defined for non-centrifuged specimen. Performed By: #### U MICAO, UAX #### [facility] [place] [address] [employer]room Handle Dipper: Lloyd Vela MD Urine WBC's 5 TO 10 Normal 0-5 [facility] Comment on above: Performed By: #### U MICAO, UAX #### [facility] [address] [place] [address] [employer] Dipper: Lloyd Vela MD Amorphous sediment LM Ql (Urine sed) NOT REPORTED Normal NONE [facility] Comment on above: Performed By: #### U MICAO, UAX #### [facility] [employer] [address] [place] [address] Broom Handle Dipper: Lloyd Vela MD Casts NOT REPORTED Normal 0-8 [facility] Comment on above: Performed By: #### U MICAO, UAX #### [facility] [address] [place] [address] [employer]: Lloyd Vela MD Crystals LM Nom (Urine sed) NOT REPORTED Normal NONE [facility] Comment on above: Performed By: #### U MICAO, UAX #### [facility] [address] [place] [address] B[employer] Dipper: Lloyd Vela MD Epithelial, Renal NOT REPORTED Normal 0 [facility] Comment on above: Performed By: #### U MICAO, UAX #### [facility] [employer] [address] [place] [address] B[employer] Dipper: Lloyd Vela MD Mucus Strands NOT REPORTED Normal NONE [facility] Comment on above: Performed By: #### U MICAO, UAX #### [facility] [employer] [address] [place] [id number] Broom Handle Dipper: Lloyd Vela MD Other Observations NOT REPORTED Normal NREQ [facility] Comment on above: Performed By: #### U MICAO, UAX #### [facility] [address] [place] [address] [employer]room [employer] Dipper: Lloyd Vela MD Trichomonas NOT REPORTED Normal NONE [facility] Comment on above: Performed By: #### U MICAO, UAX #### [facility] [address] [place] [address] Broom Handle Dipper: Lloyd Vela MD Yeast NOT REPORTED Normal NONE [facility] Comment on above: Performed By: #### U MICAO, UAX #### [facility] [address] [place], [place] [id number] Broom [employer] Dipper: Lloyd Vela MD Vital Signs Date Time Vital Sign Value Performing Clinician Facility 10-05-2024 15:29-0400 Body mass index (BMI) [Ratio] 42.07 kg/m2 Dyan Lo [employer] Work Phone: [facility] 10-05-2024 15:29-0400 Body weight 104.33 kg Dyan Lo [employer] Work Phone: [facility] 10-05-2024 15:29-0400 Diastolic blood pressure 76 mm[Hg] Dyan Lo [employer] Work Phone: [facility] 10-05-2024 15:29-0400 Systolic blood pressure 118 mm[Hg] Dyan Lo [employer] Work Phone: [facility] 09-29-2024 08:51-0400 Body mass index (BMI) [Ratio] 41.7 kg/m2 Donovan Vielka DO Work Phone: [facility] 09-29-2024 08:51-0400 Body weight 103.42 kg Donovan Vielka DO Work Phone: [facility] 09-29-2024 08:51-0400 Diastolic blood pressure 70 mm[Hg] Donovan Vielka DO Work Phone: [facility] 09-29-2024 08:51-0400 Systolic blood pressure 122 mm[Hg] Donovan Vielka DO Work Phone: [facility] 09-22-2024 08:41-0400 Body mass index (BMI) [Ratio] 41.56 kg/m2 Donovan Vielka DO Work Phone: [facility] 09-22-2024 08:41-0400 Body weight 103.08 kg Donovan Vielka DO Work Phone: [facility] 09-22-2024 08:41-0400 Diastolic blood pressure 82 mm[Hg] Donovan Vielka DO Work Phone: [facility] 09-22-2024 08:41-0400 Systolic blood pressure 118 mm[Hg] Donovan Vielka DO Work Phone: [facility] 09-15-2024 09:13-0400 Body mass index (BMI) [Ratio] 41.2 kg/m2 Donovan Vielka DO Work Phone: [facility] 09-15-2024 09:13-0400 Body weight 102.17 kg Donovan Vielka DO Work Phone: [facility] 09-15-2024 09:13-0400 Diastolic blood pressure 72 mm[Hg] Donovan Vielka DO Work Phone: [facility] 09-15-2024 09:13-0400 Systolic blood pressure 124 mm[Hg] Donovan Vielka DO Work Phone: [facility] 09-08-2024 11:42-0400 Body mass index (BMI) [Ratio] 40.24 kg/m2 Donovan Vielka DO Work Phone: [facility] 09-08-2024 11:42-0400 Body weight 99.79 kg Donovan Vielka DO Work Phone: [facility] 09-08-2024 11:42-0400 Diastolic blood pressure 72 mm[Hg] Donovan Vielka DO Work Phone: [facility] 09-08-2024 11:42-0400 Systolic blood pressure 120 mm[Hg] Donovan Vielka DO Work Phone: [facility] 09-05-2024 16:37-0400 Body mass index (BMI) [Ratio] 39.69 kg/m2 Gabriela Monzon [employer] Work Phone: [facility] 09-05-2024 16:37-0400 Body temperature 97.39 [degF] Gabriela Monzon [employer] Work Phone: [facility] 09-05-2024 16:37-0400 Body weight 98.43 kg Gabriela Monzon [employer] Work Phone: [facility] 09-05-2024 16:37-0400 Diastolic blood pressure 80 mm[Hg] Gabriela Monzon [employer] Work Phone: [facility] 09-05-2024 16:37-0400 Heart rate 70 /min Gabriela Monzon [employer] Work Phone: [facility] 09-05-2024 16:37-0400 SaO2% (BldA) [Mass fraction] 98 % Gabriela Monzon [employer] Work Phone: [facility] 09-05-2024 16:37-0400 Systolic blood pressure 124 mm[Hg] Gabriela Monzon [employer] Work Phone: [facility] 08-25-2024 09:06-0400 Body mass index (BMI) [Ratio] 39.69 kg/m2 America GHOTRA Work Phone: [facility] 08-25-2024 09:06-0400 Body weight 98.43 kg America GHOTRA Work Phone: [facility] 08-25-2024 09:06-0400 Diastolic blood pressure 70 mm[Hg] America GHOTRA Work Phone: [facility] 08-25-2024 09:06-0400 Systolic blood pressure 118 mm[Hg] America GHOTRA Work Phone: [facility] 07-27-2024 08:56-0500 Body mass index (BMI) [Ratio] 39.29 kg/m2 America Thompson PA Work Phone: [facility] 07-27-2024 08:56-0500 Body weight 97.43 kg America Herediaey PA Work Phone: [facility] 07-27-2024 08:56-0500 Diastolic blood pressure 58 mm[Hg] America Thompson PA Work Phone: [facility] 07-27-2024 08:56-0500 Systolic blood pressure 120 mm[Hg] America Thomspon PA Work Phone: [facility] 07-12-2024 10:24-0500 Body mass index (BMI) [Ratio] 39.58 kg/m2 Donovan Vielka DO Work Phone: [facility] 07-12-2024 10:24-0500 Body weight 98.16 kg Donovan Vielka DO Work Phone: [facility] 07-12-2024 10:24-0500 Diastolic blood pressure 60 mm[Hg] Donovan Vielka DO Work Phone: [facility] 07-12-2024 10:24-0500 Systolic blood pressure 114 mm[Hg] Donovan Vielka DO Work Phone: [facility] 06-09-2024 09:14-0500 Body mass index (BMI) [Ratio] 39.76 kg/m2 Donovan Vielka DO Work Phone: [facility] 06-09-2024 09:14-0500 Body weight 98.61 kg Donovan Vielka DO Work Phone: [facility] 06-09-2024 09:14-0500 Diastolic blood pressure 72 mm[Hg] Donovan Vielka DO Work Phone: [facility] 06-09-2024 09:14-0500 Systolic blood pressure 112 mm[Hg] Donovan Vielka DO Work Phone: [facility] 05-10-2024 10:05-0500 Body mass index (BMI) [Ratio] 39.51 kg/m2 America Thompson PA Work Phone: [facility] 05-10-2024 10:05-0500 Body weight 97.98 kg America Thompson PA Work Phone: [facility] 05-10-2024 10:05-0500 Diastolic blood pressure 72 mm[Hg] America Thompson PA Work Phone: [facility] 05-10-2024 10:05-0500 Systolic blood pressure 120 mm[Hg] America Thompson PA Work Phone: [facility] 04-25-2024 09:02-0500 Body mass index (BMI) [Ratio] 39.32 kg/m2 Peng Olivares [employer] Work Phone: [facility] 04-25-2024 09:02-0500 Body temperature 97.5 [degF] Peng Olivares [employer] Work Phone: [facility] 04-25-2024 09:02-0500 Body weight 97.52 kg Peng Olivares [employer] Work Phone: [facility] 04-25-2024 09:02-0500 Diastolic blood pressure 74 mm[Hg] Peng Olivares [employer] Work Phone: [facility] 04-25-2024 09:02-0500 Heart rate 93 /min Peng Olivares [employer] Work Phone: [facility] 04-25-2024 09:02-0500 SaO2% (BldA) [Mass fraction] 98 % Peng Olivares [employer] Work Phone: [facility] 04-25-2024 09:02-0500 Systolic blood pressure 118 mm[Hg] Peng Olivares [employer] Work Phone: [facility] 04-11-2024 10:26-0500 Body mass index (BMI) [Ratio] 39.43 kg/m2 Donovan Vielka DO Work Phone: [facility] 04-11-2024 10:26-0500 Body weight 97.79 kg Donovan Vielka DO Work Phone: [facility] 04-11-2024 10:26-0500 Diastolic blood pressure 70 mm[Hg] Donovan Vielka DO Work Phone: [facility] 04-11-2024 10:26-0500 Systolic blood pressure 124 mm[Hg] Donovan Vielka DO Work Phone: [facility] 03-24-2024 18:54-0400 Body temperature 98.24 [degF] [facility] 03-24-2024 18:54-0400 Diastolic blood pressure 68 mm[Hg] [facility] 03-24-2024 18:54-0400 Heart rate 57 /min [facility] 03-24-2024 18:54-0400 Respiratory rate 16 /min [facility] 03-24-2024 18:54-0400 SaO2% (BldA) [Mass fraction] 100 % [facility] 03-24-2024 18:54-0400 Systolic blood pressure 128 mm[Hg] [facility] 03-10-2024 13:08-0400 Body mass index (BMI) [Ratio] 39.78 kg/m2 [facility] 03-10-2024 13:08-0400 Body weight 98.66 kg [facility] 03-10-2024 13:08-0400 Diastolic blood pressure 72 mm[Hg] [facility] 03-10-2024 13:08-0400 Systolic blood pressure 114 mm[Hg] [facility] 02-04-2024 13:34-0400 Body height 157.48 cm C[employer]IED [employer] COUNSELOR Georgie Fareed Work Phone: [facility] 02-04-2024 13:34-0400 Body mass index (BMI) [Ratio] 39.2 kg/m2 CERTIFIED DRUG COUNSELOR Georgie Fareed Work Phone: [facility] 02-04-2024 13:34-0400 Body temperature 98.1 [degF] CERTIFIED DRUG COUNSELOR Georgie Fareed Work Phone: [facility] 02-04-2024 13:34-0400 Body weight 97.18 kg CERTIFIED DRUG COUNSELOR Georgie Fareed Work Phone: [facility] 02-04-2024 13:34-0400 Diastolic blood pressure 77 mm[Hg] CERTIFIED DRUG COUNSELOR Georgie Fareed Work Phone: [facility] 02-04-2024 13:34-0400 Heart rate 77 /min CERTIFIED DRUG COUNSELOR Georgie Fareed Work Phone: [facility] 02-04-2024 13:34-0400 SaO2% (BldA) [Mass fraction] 98 % CERTIFIED DRUG COUNSELOR Georgie Fareed Work Phone: [facility] 02-04-2024 13:34-0400 Systolic blood pressure 114 mm[Hg] CERTIFIED DRUG COUNSELOR Georgie Fareed Work Phone: [facility] 01-15-2024 21:31-0400 Body temperature 99.14 [degF] Roman Yahaira [facility] 01-15-2024 21:31-0400 Diastolic blood pressure 86 mm[Hg] Roman Yahaira [facility] 01-15-2024 21:31-0400 Heart rate 66 /min Roman Yahaira [facility] 01-15-2024 21:31-0400 Respiratory rate 18 /min Roman Yahaira [facility] 01-15-2024 21:31-0400 SaO2% (BldA) [Mass fraction] 98 % Roman Yahaira [facility] 01-15-2024 21:31-0400 Systolic blood pressure 131 mm[Hg] Roman Yahaira [facility] 11-18-2023 09:57-0400 Body height 157.48 cm MD Jelly Chery Work Phone: [facility] 11-18-2023 09:57-0400 Body mass index (BMI) [Ratio] 38.5 kg/m2 MD Jelly Chery Work Phone: [facility] 11-18-2023 09:57-0400 Body temperature 97.5 [degF] MD Jelly Chery Work Phone: [facility] 11-18-2023 09:57-0400 Body weight 95.7 kg MD Jelly Chery Work Phone: [facility] 11-18-2023 09:57-0400 Diastolic blood pressure 72 mm[Hg] MD Jelly Chery Work Phone: [facility] 11-18-2023 09:57-0400 Heart rate 51 /min MD Jelly Chery Work Phone: [facility] 11-18-2023 09:57-0400 Respiratory rate 18 /min MD Jelly Chery Work Phone: [facility] 11-18-2023 09:57-0400 SaO2% (BldA) [Mass fraction] 98 % MD Jelly Chery Work Phone: [facility] 11-18-2023 09:57-0400 Systolic blood pressure 117 mm[Hg] MD Jelly Chery Work Phone: [facility] 10-30-2023 18:56-0400 Body height 157.48 cm MD Jelly Chery Work Phone: [facility] 10-30-2023 18:56-0400 Body mass index (BMI) [Ratio] 35 kg/m2 MD Jelly Chery Work Phone: [facility] 10-30-2023 18:56-0400 Body temperature 97.8 [degF] MD Jelly Chery Work Phone: [facility] 10-30-2023 18:56-0400 Body weight 87 kg MD Jelly Chery Work Phone: [facility] 10-30-2023 18:56-0400 Diastolic blood pressure 86 mm[Hg] MD Jelly Chery Work Phone: [facility] 10-30-2023 18:56-0400 Heart rate 103 /min MD Jelly Chery Work Phone: [facility] 10-30-2023 18:56-0400 Respiratory rate 16 /min MD Jelly Chery Work Phone: [facility] 10-30-2023 18:56-0400 SaO2% (BldA) [Mass fraction] 98 % MD Jelly Chery Work Phone: [facility] 10-30-2023 18:56-0400 Systolic blood pressure 125 mm[Hg] MD Jelly Chery Work Phone: [facility] 09-29-2023 10:46-0400 Body height 157.48 cm MD Jelly Chery Work Phone: [facility] 09-29-2023 10:46-0400 Body mass index (BMI) [Ratio] 35.1 kg/m2 MD Jelly Chery Work Phone: [facility] 09-29-2023 10:46-0400 Body temperature 97.7 [degF] MD Jelly Chery Work Phone: [facility] 09-29-2023 10:46-0400 Body weight 87.08 kg MD Jelly Chery Work Phone: [facility] 09-29-2023 10:46-0400 Diastolic blood pressure 78 mm[Hg] MD Jelly Chery Work Phone: [facility] 09-29-2023 10:46-0400 Heart rate 64 /min MD Jelly Chery Work Phone: [facility] 09-29-2023 10:46-0400 SaO2% (BldA) [Mass fraction] 98 % MD Jelly Chery Work Phone: [facility] 09-29-2023 10:46-0400 Systolic blood pressure 115 mm[Hg] MD Jelly Chery Work Phone: [facility] 09-07-2023 14:31-0400 Body height 157.48 cm MD Jelly Chery Work Phone: [facility] 09-07-2023 14:31-0400 Body mass index (BMI) [Ratio] 37.6 kg/m2 MD Jelly Chery Work Phone: [facility] 09-07-2023 14:31-0400 Body temperature 98.2 [degF] MD Jelly Chery Work Phone: [facility] 09-07-2023 14:31-0400 Body weight 93.44 kg MD Jelly Chery Work Phone: [facility] 09-07-2023 14:31-0400 Diastolic blood pressure 72 mm[Hg] MD Jelly Chery Work Phone: [facility] 09-07-2023 14:31-0400 Heart rate 57 /min MD Jelly Chery Work Phone: [facility] 09-07-2023 14:31-0400 Systolic blood pressure 116 mm[Hg] MD Jelly Chery Work Phone: [facility] 07-27-2023 14:08-0500 Body height 157.48 cm MD Jelly Chery Work Phone: [facility] 07-27-2023 14:08-0500 Body mass index (BMI) [Ratio] 37.6 kg/m2 MD Jelly Chery Work Phone: [facility] 07-27-2023 14:08-0500 Body temperature 98.2 [degF] MD Jelly Chery Work Phone: [facility] 07-27-2023 14:08-0500 Body weight 93.44 kg MD Jelly Chery Work Phone: [facility] 07-27-2023 14:08-0500 Diastolic blood pressure 80 mm[Hg] MD Jelly Chery Work Phone: [facility] 07-27-2023 14:08-0500 Heart rate 65 /min MD Jelly Chery Work Phone: [facility] 07-27-2023 14:08-0500 Systolic blood pressure 127 mm[Hg] MD Jelly Chery Work Phone: [facility] 07-05-2023 12:29-0500 Body temperature 96.49 [degF] Rad Sims DO Work Phone: [facility] 07-05-2023 12:29-0500 Heart rate 67 /min Rad Sims DO Work Phone: [facility] 07-05-2023 12:29-0500 SaO2% (BldA) [Mass fraction] 99 % Rad Sims DO Work Phone: [facility] 06-29-2023 16:07-0500 Body temperature 97.3 [degF] Miguel Malena PA-C Work Phone: [facility] 06-29-2023 16:07-0500 Diastolic blood pressure 67 mm[Hg] Miguel Malena PA-C Work Phone: [facility] 06-29-2023 16:07-0500 Heart rate 68 /min Miguel Malena PA-C Work Phone: [facility] 06-29-2023 16:07-0500 Systolic blood pressure 121 mm[Hg] Miguel Lockwood PA-C Work Phone: [facility] 01-11-2023 22:27-0400 Body height 157.48 cm MD Jelly Chery Work Phone: [facility] 01-11-2023 22:27-0400 Body temperature 98.5 [degF] MD Jelly Chery Work Phone: [facility] 01-11-2023 22:27-0400 Body weight 88.45 kg MD Jelly Chery Work Phone: [facility] 01-11-2023 22:27-0400 Diastolic blood pressure 85 mm[Hg] MD Jelly Chery Work Phone: [facility] 01-11-2023 22:27-0400 Heart rate 65 /min MD Jelly Chery Work Phone: [facility] 01-11-2023 22:27-0400 Respiratory rate 18 /min MD Jelly Chery Work Phone: [facility] 01-11-2023 22:27-0400 SaO2% (BldA) [Mass fraction] 100 % MD Jelly Chery Work Phone: [facility] 01-11-2023 22:27-0400 Systolic blood pressure 144 mm[Hg] MD Jelly Chery Work Phone: [facility] 10-17-2022 18:45-0400 Body height 154.94 cm Nasreen Elaina Other [employer] Other 10-17-2022 18:45-0400 Body mass index (BMI) [Ratio] 35.59 kg/m2 Nasreen Delaney Other [employer] Other 10-17-2022 18:45-0400 Body temperature 98.2 [degF] Nasreen Kenyonmond Other [employer] Other 10-17-2022 18:45-0400 Body weight 85.46 kg Nasreen Kenyonmond Other [employer] Other 10-17-2022 18:45-0400 Respiratory rate 18 /min Nasreen Kenyonmond Other [employer] Other 10-17-2022 18:45-0400 SaO2% (BldA) [Mass fraction] 98 % Nasreen Kenyonmond Other [employer] Other 07-20-2022 14:00-0500 Diastolic blood pressure 66 mm[Hg] Roman Yahaira [facility] 07-20-2022 14:00-0500 Heart rate 79 /min Roman Yahaira [facility] 07-20-2022 14:00-0500 Hourly Rounding Roman Yahaira [facility] 07-20-2022 14:00-0500 Mean blood pressure 81 mm[Hg] Roman Yahaira [facility] 07-20-2022 14:00-0500 Promise to Return Roman Yahaira [facility] 07-20-2022 14:00-0500 SaO2% (BldA) [Mass fraction] 97 % Roman Yahaira [facility] 07-20-2022 14:00-0500 Systolic blood pressure 110 mm[Hg] Roman Yahaira [facility] 07-20-2022 01:00-0500 Diastolic blood pressure 72 mm[Hg] Roman Yahaira [facility] 07-20-2022 01:00-0500 Heart rate 81 /min Roman Yahaira [facility] 07-20-2022 01:00-0500 Hourly Rounding Roman Yahaira [facility] 07-20-2022 01:00-0500 Mean blood pressure 89 mm[Hg] Roman Yahaira [facility] 07-20-2022 01:00-0500 Promise to Return Roman Yahaira [facility] 07-20-2022 01:00-0500 SaO2% (BldA) [Mass fraction] 99 % Roman Yahaira [facility] 07-20-2022 01:00-0500 Systolic blood pressure 122 mm[Hg] Roman Yahaira [facility] 07-20-2022 00:00-0500 Heart rate 83 /min Roman Yahaira [facility] 07-20-2022 00:00-0500 Hourly Rounding Roman Yahaira [facility] 07-20-2022 00:00-0500 Mean blood pressure 84 mm[Hg] Roman Yahaira [facility] 07-20-2022 00:00-0500 Promise to Return Roman Yahaira [facility] 07-20-2022 00:00-0500 SaO2% (BldA) [Mass fraction] 96 % Roman Yahaira [facility] 07-20-2022 00:00-0500 Systolic blood pressure 107 mm[Hg] Roman Yahaira [facility] 07-19-2022 21:47-0500 Body temperature 98.6 [degF] Roman Yahaira [facility] 07-19-2022 21:47-0500 Heart rate 113 /min Roman Yahaira [facility] 07-19-2022 21:47-0500 Respiratory rate 16 /min Roman Yahaira [facility] 07-08-2022 22:00-0500 Diastolic blood pressure 68 mm[Hg] Rj Pink [facility] 07-08-2022 22:00-0500 Respiratory rate 17 /min Rj Pink [facility] 07-08-2022 22:00-0500 SaO2% (BldA) [Mass fraction] 95 % Rj Due [facility] 07-08-2022 22:00-0500 Systolic blood pressure 110 mm[Hg] Rj Due [facility] 07-08-2022 21:43-0500 Body temperature 98.6 [degF] Rj Due [facility] 07-08-2022 21:43-0500 Diastolic blood pressure 69 mm[Hg] Rj Due [facility] 07-08-2022 21:43-0500 Heart rate 94 /min Rj Due [facility] 07-08-2022 21:43-0500 Mean blood pressure 82 mm[Hg] Rj Due [facility] 07-08-2022 21:43-0500 Systolic blood pressure 108 mm[Hg] Rj Due [facility] 07-08-2022 21:00-0500 SaO2% (BldA) [Mass fraction] 93 % Rj Due [facility] 07-08-2022 20:00-0500 Body temperature 99.5 [degF] Rj Due [facility] 07-08-2022 20:00-0500 Diastolic blood pressure 58 mm[Hg] Rj Due [facility] 07-08-2022 20:00-0500 Heart rate 110 /min Rj Due [facility] 07-08-2022 20:00-0500 Mean blood pressure 74 mm[Hg] Rj Joesph [facility] 07-08-2022 20:00-0500 SaO2% (BldA) [Mass fraction] 99 % Rj Joesph [facility] 07-08-2022 20:00-0500 Systolic blood pressure 105 mm[Hg] Rj Pink [facility] 07-08-2022 17:47-0500 Heart rate 121 /min Rj Pink [facility] 06-23-2022 18:00-0500 Body height 154.94 cm Asim Palma Other [employer] Other 06-23-2022 18:00-0500 Body mass index (BMI) [Ratio] 34.01 kg/m2 Asim Palma Other [employer] Other 06-23-2022 18:00-0500 Body temperature 97.8 [degF] Asim Palma Other [employer] Other 06-23-2022 18:00-0500 Body weight 81.65 kg Asim Palma Other [employer] Other 06-23-2022 18:00-0500 Respiratory rate 18 /min Asim Palma Other [employer] Other 06-23-2022 18:00-0500 SaO2% (BldA) [Mass fraction] 98 % Asim Palma Other [employer] Other 06-18-2022 18:30-0500 Body height 154.94 cm Belia Aguero Other [employer] Other 06-18-2022 18:30-0500 Body mass index (BMI) [Ratio] 34.01 kg/m2 Belia Aguero Other [employer] Other 06-18-2022 18:30-0500 Body temperature 98 [degF] Belia Aguero Other [employer] Other 06-18-2022 18:30-0500 Body weight 81.65 kg Belia Aguero Other [employer] Other 06-18-2022 18:30-0500 Respiratory rate 18 /min Belia Aguero Other [employer] Other 06-18-2022 18:30-0500 SaO2% (BldA) [Mass fraction] 98 % Belia Aguero Other [employer] Other 04-16-2022 18:15-0500 Body height 154.94 cm Belia Agueor Other [employer] Other 04-16-2022 18:15-0500 Body mass index (BMI) [Ratio] 34.01 kg/m2 Belia Aguero Other [employer] Other 04-16-2022 18:15-0500 Body temperature 98.1 [degF] Belia Aguero Other [employer] Other 04-16-2022 18:15-0500 Body weight 81.65 kg Belia Aguero Other [employer] Other 04-16-2022 18:15-0500 Respiratory rate 18 /min Belia Aguero Other [employer] Other 04-16-2022 18:15-0500 SaO2% (BldA) [Mass fraction] 99 % Belia Aguero Other [employer] Other 10-28-2022 18:00-0400 Body height 154.94 cm Belia Vázquez Other [employer] Other 03-21-2022 18:00-0400 Body mass index (BMI) [Ratio] 34.01 kg/m2 Belia Vázquez Other [employer] Other 03-21-2022 18:00-0400 Body temperature 98.3 [degF] Belia Vázquez Other [employer] Other 03-21-2022 18:00-0400 Body weight 81.65 kg Belia Vázquez Other [employer] Other 03-21-2022 18:00-0400 Diastolic blood pressure 79 mm[Hg] Belia Vázquez Other [employer] Other 03-21-2022 18:00-0400 Respiratory rate 18 /min Belia Vázquez Other [employer] Other 03-21-2022 18:00-0400 SaO2% (BldA) [Mass fraction] 100 % Belia Vázquez Other [employer] Other 03-21-2022 18:00-0400 Systolic blood pressure 123 mm[Hg] Belia Vázquez Other [employer] Other 07-20-2021 13:15-0500 Body height 154.94 cm Asim [employer] Other [employer] Other 07-20-2021 13:15-0500 Body mass index (BMI) [Ratio] 34.01 kg/m2 Asim Minerva Other [employer] Other 07-20-2021 13:15-0500 Body temperature 98.4 [degF] Asim Palma Other [employer] Other 07-20-2021 13:15-0500 Body weight 81.65 kg Asim Palma Other [employer] Other 07-20-2021 13:15-0500 Diastolic blood pressure 66 mm[Hg] Asim Palma Other [employer] Other 07-20-2021 13:15-0500 Respiratory rate 18 /min Asim Palma Other [employer] Other 07-20-2021 13:15-0500 SaO2% (BldA) [Mass fraction] 97 % Asim Palma Other [employer] Other 07-20-2021 13:15-0500 Systolic blood pressure 102 mm[Hg] Asim Palma Other [employer] Other 12-07-2020 19:25-0400 Body height 157.5 cm Simone Manley MD Work Phone: [employer] Work Phone: 12-07-2020 19:25-0400 Body mass index (BMI) [Ratio] 39.51 kg/m2 Simone Manley MD Work Phone: [facility] Work Phone: 12-07-2020 19:25-0400 Body temperature 98.91 [degF] Simone Manley MD Work Phone: [employer] Phone: 12-07-2020 19:25-0400 Body weight 97.98 kg Simone Manley MD Work Phone: [facility] Work Phone: 12-07-2020 19:25-0400 Diastolic blood pressure 81 mm[Hg] Simone Manley MD Work Phone: [facility] Work Phone: 12-07-2020 19:25-0400 Heart rate 71 /min Simone Manley MD Work Phone: [facility] Work Phone: 12-07-2020 19:25-0400 Respiratory rate 22 /min Simone Manley MD Work Phone: [facility] Work Phone: 12-07-2020 19:25-0400 SaO2% (BldA) [Mass fraction] 99 % Simone Manley MD Work Phone: [facility] Work Phone: 12-07-2020 19:25-0400 Systolic blood pressure 128 mm[Hg] Simone Manley MD Work Phone: [facility] Work Phone: Encounters Encounter Date Encounter Type Care Provider Facility Start: 10-08-2024 End: 10-08-2024 Clinisync Result Encounter Generic External Data Provider [facility] External Department Unsolicited Start: 10-08-2024 End: 10-08-2024 Clinisync Result Encounter Generic External Data Provider [facility] External Department Unsolicited Start: 10-05-2024 End: 10-05-2024 ambulatory DYAN LO Not Available Start: 10-05-2024 End: 10-05-2024 flow sheet Dyan Lo [employer] Work Phone: [facility] Comment on above: Third trimester preg debra; 38 weeks gestation of Start: 10-05-2024 End: 10-05-2024 Bamboo flowsheet Dyan Lo [employer] Work Phone: [facility] Start: 10-05-2024 End: 10-05-2024 Bamboo flowsheet Dyan Lo [employer] Work Phone: [facility] Start: 10-03-2024 End: 10-03-2024 Clinisync Result Encounter Generic External Data Provider [facility] External Department Unsolicited Start: 10-03-2024 End: 10-03-2024 Clinisync Result Encounter Generic External Data Provider [facility] External Department Unsolicited Start: 09-29-2024 End: 09-29-2024 Bamboo flowsheet Donovan Vielka DO Work Phone: [facility] Start: 09-29-2024 End: 09-29-2024 Bamboo flowsheet Donovan Vielka DO Work Phone: [facility] Start: 09-29-2024 End: 09-29-2024 Office outpatient visit 15 minutes Donovan Vielka DO Work Phone: [facility] Comment on above: Third trimester preg debra; 37 weeks gestation of ; Macrosomia; Yeast infection Start: 09-29-2024 End: 09-29-2024 ambulatory DONOVAN VIELKA Not Available Start: 09-25-2024 End: 09-26-2024 Clinisync Result Encounter Donovan Vielka DO Work Phone: [facility] External Department Unsolicited Start: 09-25-2024 End: 09-26-2024 Clinisync Result Encounter Donovan Vielka DO Work Phone: [facility] External Department Unsolicited Start: 09-23-2024 End: 09-23-2024 Clinisync Result Encounter Donovan Vielka DO Work Phone: [facility] External [facility] Unsolicited Start: 09-23-2024 End: 09-23-2024 Clinisync Result Encounter Donovan Vielka DO Work Phone: [facility] Unsolicited Start: 09-22-2024 End: 09-22-2024 Bamboo flowsheet Donovan Vielka DO Work Phone: [facility] Start: 09-22-2024 End: 09-22-2024 Bamboo flowsheet Donovan Vielka DO Work Phone: [facility] Start: 09-22-2024 End: 09-22-2024 flow sheet Donvoan Vielka DO Work Phone: [facility] Comment on above: Third trimester preg debra; 36 weeks gestation of Start: 09-22-2024 End: 09-22-2024 ambulatory DONOVAN VIELKA Not Available Start: 09-19-2024 End: 09-19-2024 ambulatory DYAN LO Not Available Start: 09-15-2024 End: 09-15-2024 Bamboo flowsheet Donovan Vielka DO Work Phone: [facility] Start: 09-15-2024 End: 09-22-2024 Bamboo flowsheet Donovan Vielka DO Work Phone: [facility] Start: 09-15-2024 End: 09-22-2024 Clinisync Result Encounter Generic External Data Provider [facility] External Department Unsolicited Start: 09-15-2024 End: 09-15-2024 ambulatory DONOVAN VIELKA Not Available Start: 09-15-2024 End: 09-15-2024 flow sheet Donovan Vielka DO Work Phone: [facility] Comment on above: Third trimester preg debra; 35 weeks gestation of ; size inconsistent with dates Start: 09-08-2024 End: 09-08-2024 Bamboo flowsheet Donovan Vielka DO Work Phone: [facility] Start: 09-08-2024 End: 09-08-2024 Bamboo flowsheet Donovan Vielka DO Work Phone: [facility] Start: 09-08-2024 End: 09-08-2024 flow sheet Donovan Vielka DO Work Phone: [facility] Comment on above: Third trimester preg debra; 34 weeks gestation of ; Yeast infection Start: 09-08-2024 End: 09-08-2024 ambulatory DONOVAN VIELKA Not Available Start: 09-07-2024 End: 09-07-2024 Follow-up encounter Peng Olivares [employer] Work Phone: [facility] Start: 09-05-2024 End: 09-05-2024 Office outpatient visit 25 minutes Gabriela Monzon [employer] Work Phone: [facility] Comment on above: 34 weeks gestation o f (Primary Dx); Pharyngitis, unspecified etiology; Coated tongue Start: 09-05-2024 End: 09-05-2024 ambulatory GABRIELA MONZON Not Available Start: 08-25-2024 End: 08-25-2024 Bamboo flowsheet America GHOTRA Work Phone: [facility] Start: 08-25-2024 End: 08-25-2024 Bamboo flowsheet America GHOTRA Work Phone: [facility] Start: 08-25-2024 End: 08-25-2024 ambulatory AMERICA THOMPSON Not Available Start: 08-25-2024 End: 08-25-2024 flow sheet America GHOTRA Work Phone: [facility] Comment on above: Third trimester preg debra; 32 weeks gestation of Start: 08-09-2024 End: 08-09-2024 ambulatory DONOVAN VIELKA Not Available Start: 07-27-2024 End: 07-27-2024 Bamboo flowsheet America GHOTRA Work Phone: [facility] Start: 07-27-2024 End: 07-27-2024 Bamboo flowsheet America GHOTRA Work Phone: [facility] Start: 07-27-2024 End: 07-27-2024 Office outpatient visit 15 minutes America GHOTRA Work Phone: [facility] Comment on above: Third trimester preg debra; 28 weeks gestation of ; size inconsistent with dates Start: 07-27-2024 End: 07-27-2024 ambulatory AMERICA THOMPSON Not Available Start: 07-23-2024 End: 07-23-2024 Clinisync Result Encounter Donovan Vielka DO Work Phone: [facility] [facility] External Department Unsolicited Start: 07-23-2024 End: 07-23-2024 [...] 06-16-2024 End: 06-17-2024 Emergency department patient visit Sergeleona Husainjessica Facility:[facility] Start: 06-14-2024 End: 06-14-2024 ambulatory DONOVAN VIELKA [...] Not Available Start: 05-31-2024 End: 05-31-2024 ambulatory DYAN JE Not Available Start: 05-10-2024 End: 05-10-2024 Bamboo flowsheet America GHOTRA Work Phone: [facility] Start: 05-10-2024 End: 05-11-2024 Bamboo flowsheet America GHOTRA Work Phone: [facility] Start: 05-10-2024 End: 05-11-2024 External Result Encounter America GHOTRA Work Phone: [facility] External Department Unsolicited Start: 05-10-2024 End: 05-10-2024 ambulatory AMERICA THOMPSON Not Available Start: 05-10-2024 End: 05-10-2024 flow sheet Ameriac GHOTRA Work Phone: [facility] Comment on above: Exposure to STD; Second trimester ; 17 weeks gestation of ; Need for maternal serum alpha-protein (MSAFP) screening; Screening, , for anatomic survey Start: 04-25-2024 End: 04-25-2024 Office outpatient visit 25 minutes Peng Olivares [employer] Work Phone: [facility] Comment on [...] Unsolicited Start: 03-28-2024 End: 03-28-2024 ambulatory PENG Lopez MARSHALL Not Available Start: 03-28-2024 End: 03-28-2024 Telephone encounter Peng Lopez Marshall [employer] Work Phone: [facility] Start: 03-24-2024 End: 03-24-2024 Emergency department patient visit Chichi Roy [facility] Start: 03-15-2024 End: 03-15-2024 ambulatory DYAN JE Not Available Start: 03-10-2024 End: 03-10-2024 Office outpatient visit 5 minutes [facility] Vielka Nurse [facility] Comment on above: GA: 8w5d Start: 03-10-2024 End: 03-10-2024 ambulatory DYAN JE Not Available Start: 02-11-2024 End: 02-17-2024 Orders Only Peng Olivares [employer] Work Phone: [facility] External Department Unsolicited Start: 02-11-2024 End: 02-11-2024 Telephone encounter Peng John Olivares [employer] Work Phone: [facility] Start: 02-04-2024 End: 02-04-2024 ambulatory CERTIFIED DRUG COUNSELOR Georgie Fareed Work Phone: [facility] Work Phone: Start: 02-04-2024 End: 02-04-2024 Patient encounter procedure CERTIFIED DRUG COUNSELOR Georgie Fareed Work Phone: [facility] Work Phone: Start: 01-15-2024 End: 01-15-2024 Emergency department patient visit Roman Syed [facility] Start: 01-11-2024 End: 01-14-2024 Orders Only Matti Sims DO Work Phone: [facility] External Department Unsolicited Start: 01-11-2024 End: 01-11-2024 ambulatory MATTI Crissy SIMS Not Available Start: 01-03-2024 End: 01-03-2024 Emergency department patient visit JELLY CHERY [facility] Start: 11-24-2023 End: 11-24-2023 ambulatory MD Jelly Chery Work Phone: [facility] Work Phone: Start: 11-24-2023 End: 11-24-2023 Patient encounter procedure MD Jelly Chery Work Phone: [facility] Work Phone: Start: 11-18-2023 End: 11-18-2023 Departed Referred MD Jelly Chery Work Phone: [facility] [place] Work Phone: Start: 11-18-2023 End: 11-18-2023 ambulatory MD Jelly Chery Work Phone: [facility] Work Phone: Start: 11-18-2023 End: 11-18-2023 Patient encounter procedure MD Jelly Chery Work Phone: [facility] Work Phone: Start: 10-30-2023 End: 10-30-2023 ambulatory MD Jelly Chery Work Phone: [facility] Work Phone: Start: 10-30-2023 End: 10-30-2023 Patient encounter procedure MD Jelly Chery Work Phone: [facility] Work Phone: Start: 10-20-2023 End: 10-20-2023 ambulatory JELLY CHERY Not Available Start: 10-13-2023 End: 10-13-2023 ambulatory MD Jelly Chery Work Phone: [facility] Work Phone: Start: 10-13-2023 End: 10-13-2023 Patient encounter procedure MD Jelly Chery Work Phone: [facility] Work Phone: Start: 09-29-2023 End: 09-29-2023 ambulatory MD Jelly Chery Work Phone: [facility] Work Phone: Start: 09-29-2023 End: 09-29-2023 Patient encounter procedure MD Jelly Chery Work Phone: [facility] [place] Work Phone: Start: 09-07-2023 End: 09-07-2023 ambulatory MD Jelly Chery Work Phone: [facility] Work Phone: Start: 09-07-2023 End: 09-07-2023 Patient encounter procedure MD Jelly Chery Work Phone: [facility] Work Phone: Start: 07-27-2023 End: 07-27-2023 ambulatory Simone Bahena Facility:[facility] Start: 07-27-2023 End: 07-27-2023 Patient encounter procedure MD Jelly Chery Work Phone: [facility] Work Phone: Start: 07-05-2023 End: 07-05-2023 Office outpatient visit 25 minutes Rad Sims DO Work Phone: [facility] Comment on above: Recurrent acute supp urative otitis media without spontaneous rupture of tympanic membrane of both sides (Primary Dx); Pharyngitis, unspecified etiology Start: 06-29-2023 End: 06-30-2023 ambulatory MIGUEL LEBANON Facility:[facility] Start: 06-29-2023 End: 06-29-2023 Subsequent hospital visit by physician Xr [facility] Comment on above: Right hand pain [M79 .641] Start: 06-29-2023 End: 06-29-2023 Patient encounter procedure Miguel Ang PA-C Work Phone: Plastic Surgery Comment on above: Right hand pain (Jazzmine rena Dx) Start: 04-03-2023 End: 04-03-2023 Patient encounter procedure MD Jelly Chery Work Phone: [facility] Start: 04-03-2023 End: 04-03-2023 ambulatory MD Jelly Chery Work Phone: [facility] Work Phone: Start: 02-24-2023 End: 02-25-2023 ambulatory MARISA [facility] Start: 02-17-2023 ambulatory JAISON Zeng [facility] Start: 01-11-2023 End: 01-11-2023 Emergency department patient visit MD Jelly Chery Work Phone: [facility] Work Phone: Start: 10-17-2022 End: 10-17-2022 ambulatory Nasreen Delaney Other [employer] Other Start: 10-17-2022 Office outpatient vi sit 15 minutes Nasreen Delaney [facility] Start: 07-19-2022 End: 07-20-2022 Emergency department patient visit Roman Syed [facility] Start: 07-08-2022 End: 07-08-2022 Emergency department patient visit Rj Pink [facility] Start: 06-23-2022 End: 06-23-2022 ambulatory Asim Palma Other [employer] Other Start: 06-23-2022 Office outpatient vi sit 15 minutes Asim Palma [facility] Start: 06-18-2022 End: 06-18-2022 ambulatory Belia Aguero Other [employer] Other Start: 06-18-2022 Office outpatient vi sit 15 minutes Belia Aguero [facility] Start: 05-23-2022 End: 05-23-2022 ambulatory Asim Minerva Other [employer] Other Start: 05-23-2022 Telephone encounter Asim Marcum [facility] Start: 04-16-2022 End: 04-16-2022 ambulatory Belia Aguero Other [employer] Other Start: 04-16-2022 Office outpatient vi sit 15 minutes Belia Aguero [facility] Start: 03-21-2022 End: 03-22-[address] HAWA WHELAN [employer] Other Start: 03-21-2022 Office outpatient vi sit 15 minutes Belia Vázquez [facility] Start: 11-17-2021 End: 11-17-[address] JULY QUEVEDO Facility:[facility] Start: 07-20-2021 End: 07-20-2021 ambulatory Asim Minerva Other [employer] Other Start: 07-20-2021 Office outpatient vi sit 25 minutes Asim Natural Steps [facility] Start: 03-29-2021 End: 03-30-2021 ambulatory CONCHITA MEANS Facility:[facility] Start: 12-07-2020 End: 12-08-2020 Emergency department patient visit SIMONE MANLEY [facility] Start: 12-07-2020 End: 12-08-2020 Emergency department patient visit Simone Manley MD Work Phone: [facility] ED Comment on above: Trigger point with b ack pain (Primary Dx); Hepatic steatosis Procedures Date Procedure Procedure Detail Performing Clinician Start: 10-08-2024 US OB BPP W NON-STRESS Generic External Data Provider Start: 10-03-2024 US OB BPP W NON-STRESS Generic External Data Provider Start: 10-03-2024 US OB GROWTH Generic External Jose a Provider Start: 09-29-2024 Urnls dip stick/tablet rgnt non-auto w/o micrscp Donovan Vielka DO Work Phone: Start: 09-25-2024 US OB BPP W NON-STRESS Donovan Vielka DO Work Phone: Start: 09-23-2024 TBH UA (CLEAN/CATCH) READING AIDE/MICRO IF IND. Donovan Vielka DO Work Phone: Start: 09-22-2024 Urnls dip stick/tablet rgnt non-auto w/o micrscp Donovan Vielka DO Work Phone: Start: 09-15-2024 Urnls dip stick/tablet rgnt non-auto w/o micrscp Donovan Vielka DO Work Phone: Start: 09-15-2024 STREP GP B CULTURE+RFLX Donovan Vielka DO Work Phone: Start: 09-08-2024 Urnls dip stick/tablet rgnt non-auto w/o micrscp Donovan Vielka DO Work Phone: Start: 09-05-2024 Gluc bld gluc mntr dev cleared fda spec home use Gabriela Monzon [employer] Work Phone: Start: 09-05-2024 Sars-cov-2 detection by dna/rna Gabriela Monzon [employer] Work Phone: Start: 09-05-2024 End: 09-05-2024 Infectious agent dna/rna influenza 1st 2 types Gabriela Monzon [employer] Work Phone: Start: 08-25-2024 Urnls dip stick/tablet rgnt non-auto w/o micrscp America GHOTRA Work Phone: Start: 07-27-2024 Urnls dip stick/tablet rgnt non-auto [...] streptococcus group a amplified probe tq Darell Caitlin Jama DO Work Phone: Start: 04-11-2024 Urnls [...] 04-04-2024 HIV AB/P24 AG WITH REFLEX Donovan Vora DO Work Phone: Start: 04-04-2024 MLR HEMOGLOBIN A1C Donovan Vora DO Work Phone: Start: 04-04-2024 RAPID PLASMA REAGIN, QUANT Donovan Vora DO Work Phone: Start: 04-04-2024 Bacteria identified in Urine by Culture Generic External Data Provider Start: 04-04-2024 TB DRUG SCREEN RAPID (URINE) Donovan Vora DO Work Phone: Start: 03-10-2024 Urnls dip stick/tablet rgnt non-auto w/o micrscp Donovan Vora DO Work Phone: Start: 02-11-2024 Gonadotropin chorionic quantitative Peng Olivares [employer] Work Phone: Start: 01-11-2024 Cytp cerv/vag auto [...] Ct abdomen & pelvis w/o contrast material MoKelly Barr MD Work Phone: Start: 12-07-2020 Urinalysis microscopic only MoKelly Barr MD Work Phone: Start: 12-07-2020 Urnls dip stick/tablet rgnt auto w/o microscopy Denton Carson Barr MD Work Phone: Start: 12-07-2020 Basic metabolic panel calcium total Denton Carson Barr MD Work Phone: None (qualifier value) Rj Pink Plan of Treatment Date Care Activity Detail Author Start: 11-10-2029 DTaP/Tdap/Td vaccine (9 - Td or Tdap) DTaP/Tdap/Td vaccine (9 - Td or Tdap) [employer] Work Phone: Start: 11-10-2029 Urine microalbumin profile DTaP,Tdap,Td Vaccine (9 - Td or Tdap) [facility] Start: 01-11-2025 End: 01-11-2025 Patient encounter procedure 01/11/2025 10:45 AM EDT Office Visit [facility] [address] [place] [id number] Matti Sims, DO [address] [place] [address] [facility] Start: 11-15-2024 End: 11-15-2024 Patient encounter procedure [facility] Start: 10-18-2024 End: 10-18-2024 Patient encounter procedure [facility] Start: 10-12-2024 End: 10-12-2024 Patient encounter procedure 10/12/2024 3:50 PM EDT Routine [facility] [address] [place] [address] Donovan Vora, DO [address] [place], [place] [id number] [facility] Start: 10-05-2024 End: 10-05-2024 Patient encounter procedure 10/05/2024 3:20 PM EDT Routine [facility] [address] [place] [phone] Dyan Lo, [employer] [address] [place] [address] [facility] Start: 09-29-2024 End: 04-01-2025 US biophysical profile w non stress test US biophysical profile w non stress test Imaging Routine 37 weeks gestation of Macrosomia Expected: 09/29/2024 (Approximate), Expires: 04/01/2025 [facility] Comment on above: Expected: 09/29/2024 (Approximate), Expires: 04/01/2025 Start: 09-29-2024 End: 01-30-2025 US for US OB follow up transabdominal approach Imaging Routine 37 weeks gestation of Macrosomia Expected: 09/29/2024, Expires: 01/30/2025 [facility] Work Phone: Comment on above: Expected: 09/29/2024 , Expires: 01/30/2025 Start: 09-29-2024 End: 09-29-2024 Patient encounter procedure [facility] Comment on above: Arrived Start: 09-22-2024 End: 09-22-2024 Patient encounter procedure [facility] Comment on above: Arrived Start: 09-19-2024 End: 09-19-2024 Professional / ancillary services management 09/19/2024 10:30 AM EDT Ancillary Procedure [facility] [address] [place] [address] [facility] Start: 09-15-2024 End: 09-15-2025 CULTURE, GROUP B STREP WITH SUSCEPTIBLITY CULTURE, GROUP B STREP WITH SUSCEPTIBLITY Lab Routine Third trimester Expected: 09/15/2024, Expires: 09/15/2025 [facility] Work Phone: Comment on above: Expected: 09/15/2024 , Expires: 09/15/2025 Start: 09-15-2024 End: 01-15-2025 US for US OB follow up transabdominal approach Imaging Routine size inconsistent with dates Expected: 09/15/2024, Expires: 01/15/2025 [facility] Comment on above: Expected: 09/15/2024 , Expires: 01/15/2025 Start: 09-15-2024 End: 09-15-2024 Patient encounter procedure 09/15/2024 9:00 AM EDT Routine [facility] [address] [place] [phone] Donovan Vora, DO [facility] [place] [address] [facility] Start: 09-08-2024 End: 09-08-2024 Patient encounter procedure [facility] Comment on above: Arrived Start: 08-09-2024 End: 08-09-2024 Patient encounter procedure 08/09/2024 9:40 AM EDT Routine [facility] [address] [place] [phone] Donovan Vora, DO [address] [place] [address] [facility] Start: 08-09-2024 End: 08-09-2024 Professional / ancillary services management 08/09/2024 9:00 AM EDT Ancillary Procedure [facility] [address] [place] [phone] [facility] Start: 07-27-2024 End: 07-27-2025 [...] Routine [facility] [address] [place] [address] Donovan Vora, DO [address] [facility] [address] [place] [address] [facility] Start: 06-09-2024 End: 06-09-2025 CBC panel - Blood by Automated count CBC Lab Routine Diabetes mellitus screening Expected: 06/09/2024 (Approximate), Expires: 06/09/2025 [facility] Work Phone: Comment on above: Expected: 06/09/2024 (Approximate), Expires: 06/09/2025 Start: 06-09-2024 End: 06-09-2025 Measurement of glucose 1 hour after glucose challenge for glucose tolerance test Glucose tolerance, 1 hour Lab Routine Diabetes mellitus screening Expected: 06/09/2024 (Approximate), Expires: 06/09/2025 [facility] Healthcare Comment on above: Expected: 06/09/2024 (Approximate), Expires: 06/09/2025 Start: 06-09-2024 End: 06-09-2024 Patient encounter procedure [facility] Comment on above: Arrived Start: 05-31-2024 End: 05-31-2024 Professional / ancillary services management 05/31/2024 10:00 AM EST Ancillary Procedure [facility] [address] [facility] [address] [place] [phone] [facility] Start: 05-10-2024 End: 06-10-2024 Alpha fetoprotein, maternal Alpha fetoprotein, maternal Lab Routine Need for maternal serum alpha-protein (MSAFP) screening Expected: 05/10/2024 (Approximate), Expires: 06/10/2024 [facility] Comment on above: Expected: 05/10/2024 (Approximate), Expires: 06/10/2024 Start: 05-10-2024 End: 05-10-2025 US for US OB ANATOMY SINGLE W US OB CERVICAL LENGTH Imaging Routine Screening, , for anatomic survey Expected: 05/10/2024 (Approximate), Expires: 05/10/2025 [facility] Comment on above: Expected: 05/10/2024 (Approximate), Expires: 05/10/2025 Start: 05-10-2024 End: 05-10-2024 Patient encounter procedure 05/10/2024 9:40 AM EST Routine [facility] [address] [place] [phone] America Thompson PA [address] [place], [place] [id number] [facility] Start: 04-11-2024 End: 04-11-2024 Patient encounter procedure 04/11/2024 9:50 AM EST Routine [facility] [address] [place] [address] Donovan Vora DO [address] [facility] [address] [facility] [place], [place] [id number] [facility] Start: 03-28-2024 End: 03-28-2025 XR Radius and Ulna - right 2 Views XR forearm 2 views right Imaging STAT Injury of right wrist, initial encounter Right forearm pain Expected: 03/28/2024, Expires: 03/28/2025 [facility] Comment on above: Expected: 03/28/2024 , Expires: 03/28/2025 Start: 03-28-2024 End: 03-28-2025 XR Wrist - right 3 Views XR wrist 3+ views right Imaging STAT Injury of right wrist, initial encounter Right wrist pain Expected: 03/28/2024, Expires: 03/28/2025 [facility] Work Phone: Comment on above: Expected: 03/28/2024 , Expires: 03/28/2025 Start: 03-10-2024 End: 03-10-2025 ABO/Rh ABO/Rh Lab Routine Missed menses , unspecified gestational age Expected: 03/10/2024 (Approximate), Expires: 03/10/2025 [facility] Comment on above: Expected: 03/10/2024 (Approximate), Expires: 03/10/2025 Start: 03-10-2024 End: 03-10-2025 Blood type and Indirect antibody screen panel - Blood Type and screen Lab Routine Missed menses , unspecified gestational age Expected: 03/10/2024 (Approximate), Expires: 03/10/2025 [facility] Work Phone: Comment on above: Expected: 03/10/2024 (Approximate), Expires: 03/10/2025 Start: 03-10-2024 End: 03-10-2025 Drugs of abuse panel - Urine by Screen method Rapid drug screen, urine Lab Routine , unspecified gestational age Encounter for supervision of normal first in first trimester Expected: 03/10/2024 (Approximate), Expires: 03/10/2025 [facility] Comment on above: Expected: 03/10/2024 (Approximate), Expires: 03/10/2025 Start: 03-10-2024 End: 03-10-2025 US Pelvis transvaginal US OB transvaginal Imaging Routine Missed menses Expected: 03/10/2024 (Approximate), Expires: 03/10/2025 [facility] Comment on above: Expected: 03/10/2024 (Approximate), Expires: 03/10/2025 Start: 03-10-2024 End: 03-10-2024 ambulatory 03/10/2024 1:00 PM EDT Initial [facility] [address] [place] [phone] [facility] Start: 03-10-2024 End: 03-10-2024 Professional / ancillary services management 03/10/2024 12:30 PM EDT Ancillary Procedure [facility] [address] [place] [address] [facility] Start: 02-11-2024 End: 02-10-2025 HCG,QUALITATIVE RFX TO QUANT ([facility]) HCG,QUALITATIVE RFX TO QUANT ([facility]) Lab Routine Positive urine test Expected: 02/11/2024 (Approximate), Expires: 02/10/2025 [facility] Work Phone: Comment on above: Expected: 02/11/2024 (Approximate), Expires: 02/10/2025 Start: 01-24-2024 Influenza vaccination Influenza Vacc ine (#1) [facility] Start: 01-11-2024 End: 01-11-2024 Patient encounter procedure 01/11/2024 11:00 AM EDT Office Visit [facility] [address] [place] [phone] Matti Sims DO [address] [place] [address] [facility] Start: 11-18-2023 Bacteria identified in Urine by Culture [facility] Start: 11-18-2023 [facility] Start: 10-20-2023 End: 10-20-2023 Patient encounter procedure 10/20/2023 8:15 AM EDT Office Visit [facility] [address] [place] [phone] Jelly Chery MD [address] [place] [address] [facility] Start: 09-29-2023 Plain X-ray of right hand XR hand RT min 3V* [facility] Start: 09-29-2023 XR Hand - right GE 3 Views [facility] Start: 05-25-2023 Depression Assessment Depression Ass essment [facility] Start: 01-23-2023 Covid-19 Vaccine ( season) Covid-19 Vaccine ( season) [facility] Start: 01-23-2023 Influenza vaccination Influenza Vacc ine (#1) [facility] Start: 01-23-2021 Influenza vaccination Flu vaccine (# 1) [facility] [employer] Phone: Start: 2018 Screening for malign ant neoplasm of cervix [facility] Start: 2015 Hepatitis C screening Hepatitis C Sc wilmer [facility] Start: 2015 HIV screening HIV Screening [facility] Start: 2013 Screening for Chlamy pam trachomatis Chlamydia screen [employer] Phone: Start: 02-19-2012 HIV screening HIV screen [facility] Work Phone: Start: 2011 Peds To Adult Transi tion Annual Assessment Peds To Adult Transition Annual Assessment [facility] Start: 2009 Peds To Adult Transi tion Initial Discussion Peds To Adult Transition Initial Discussion [facility] Start: 2003 Pneumococcal vaccination Pneum ococcal Vaccine (1 of 2 - PCV) [facility] Start: 1998 Varicella vaccine (1 of 2 - 2-dose childhood series) Varicella vaccine (1 of 2 - 2-dose childhood series) [facility] [employer] Phone: Start: 1997 Hepatitis C screening Hepatitis C sc reen [facility] [employer] Phone: Atopobium vaginae DN A [Presence] in Vaginal fluid by CRYSTAL with probe detection [facility] Bacteria identified in Urine by Culture Urine culture Microbiology Routine Missed menses Ordered: 03/10/2024 [facility] Comment on above: Ordered: 03/10/2024 Bacterial vaginosis associated bacterium 2 DNA [Presence] in Vaginal fluid by CRYSTAL with probe detection [facility] CBC W Auto Different ial panel - Blood CBC and differential Lab Routine Missed menses , unspecified gestational age Ordered: 03/10/2024 [facility] Comment on above: Ordered: 03/10/2024 CHLAMYDIA TRACHOMATI S (GENITO/STI) CHLAMYDIA TRACHOMATIS (GENITO/STI) Lab Routine Exposure to STD Ordered: 05/10/2024 [facility] Comment on above: Ordered: 05/10/2024 Hemoglobin A1c/Hemoglobin.total in Blood Hemoglobin A1c Lab Routine Missed menses , unspecified gestational age Ordered: 03/10/2024 [facility] Comment on above: Ordered: 03/10/2024 Hepatitis B virus surface Ag [Presence] in Serum or Plasma by Immunoassay Hepatitis B surface antigen Lab Routine Missed menses , unspecified gestational age Ordered: 03/10/2024 [facility] Comment on above: Ordered: 03/10/2024 Hepatitis C virus Ab [Presence] in Serum or Plasma by Immunoassay Hepatitis C antibody Lab Routine Missed menses , unspecified gestational age Ordered: 03/10/2024 [facility] Comment on above: Ordered: 03/10/2024 HIV-1/HIV-2 antigen/antibody combination immunoassay HIV-1 and HIV-2 antibodies Lab Routine Missed menses , unspecified gestational age Ordered: 03/10/2024 [facility] Comment on above: Ordered: 03/10/2024 Megasphaera sp type 1 DNA [Presence] in Vaginal fluid by CRYSTAL with probe detection [facility] Neisseria gonorrhoea e DNA [Presence] in Unspecified specimen by CRYSTAL with probe detection Neisseria gonorrhea DNA probe, direct Lab Routine Exposure to STD Ordered: 05/10/2024 [facility] Comment on above: Ordered: 05/10/2024 OTOLARYNGOLOGY INFEC TION PANEL OTOLARYNGOLOGY INFECTION PANEL Lab Routine Pharyngitis, unspecified etiology Coated tongue Ordered: 09/05/2024 [facility] Work Phone: Comment on above: Ordered: 09/05/2024 Patient Education Outer Ear Infection ED [facility] Work Phone: Patient referral [facility] Work Phone: Reagin Ab [Presence] in Serum by RPR RPR Lab Routine Missed menses , unspecified gestational age Ordered: 03/10/2024 [facility] Comment on above: Ordered: 03/10/2024 Rubella antibody, IgG Rubella an tibody, IgG Lab Routine Missed menses , unspecified gestational age Ordered: 03/10/2024 [facility] Comment on above: Ordered: 03/10/2024 SURESWAB(R) ADVANCED VAGINITIS PLUS, TMA SURESWAB(R) ADVANCED VAGINITIS PLUS, TMA Pathology and Cytology Routine Exposure to STD Ordered: 05/10/2024 [facility] [employer] Work Phone: Comment on above: Ordered: 05/10/2024 End: 06-29-2024 XR HAND GENERAL 3V PA/LAT/OBL RIGHT XR HAND GENERAL 3V PA/LAT/OBL RIGHT Radiology Routine Right hand pain Once per week for 10 Occurrences starting 06/29/2023 until 06/29/2024, 1 completed [facility] Work Phone: Comment on above: Once per week for 10 Occurrences starting 06/29/2023 until 06/29/2024, 1 completed Immunizations Immunization Date Immunization Notes Care Provider Fa nickolas 03-15-2024 Influenza, injectabl e, Madin Anali Canine Kidney, preservative free, quadrivalent Generic Provider [facility] 02-24-2022 Influenza, injectabl e, Madin Anali Canine Kidney, preservative free, quadrivalent Rad Sims DO Work Phone: [facility] 02-24-2022 influenza virus vacc ine, unspecified formulation Xr A21 [facility] 02-22-2021 influenza, injectabl e, quadrivalent, contains preservative Rad Sims DO Work Phone: [facility] 09-04-2020 COVID-19 mRNA Comrock ortega (Pfizer) MD Jelly Chery Work Phone: [facility] 08-14-2020 COVID-19 mRNA Comrock ortega (Pfizer) MD Jelly Chery Work Phone: [facility] 11-11-2019 tetanus toxoid, redu maryanne diphtheria toxoid, and acellular pertussis vaccine, adsorbed MD Jelly Chery Work Phone: [facility] 05-12-2017 tetanus toxoid, redu maryanne diphtheria toxoid, and acellular pertussis vaccine, adsorbed Rj Pink [facility] 12-19-2016 hepatitis A vaccine, adult dosage Rad Sims DO Work Phone: [facility] 12-19-2016 Human Papillomavirus 9-valent vaccine Rad Sims DO Work Phone: [facility] 12-19-2016 meningococcal B vacc ine, recombinant, OMV, adjuvanted Rad Sims DO Work Phone: [facility] 08-22-2016 Human Papillomavirus 9-valent vaccine Rad Sims DO Work Phone: [facility] 08-22-2016 meningococcal B vacc ine, recombinant, OMV, adjuvanted Rad Sims DO Work Phone: [facility] 08-22-2016 meningococcal polysaccharide (groups A, C, Y and W-135) diphtheria toxoid conjugate vaccine (MCV4P) Rad Sims DO Work Phone: [facility] 06-19-2016 hepatitis A vaccine, adult dosage Rad Lintoner DO Work Phone: [facility] 06-19-2016 Human Papillomavirus 9-valent vaccine Rad Sims DO Work Phone: [facility] 12-13-2012 meningococcal polysaccharide (groups A, C, Y and W-135) diphtheria toxoid conjugate vaccine (MCV4P) Rad Sims DO Work Phone: [facility] 12-13-2012 tetanus toxoid, redu maryanne diphtheria toxoid, and acellular pertussis vaccine, adsorbed Rad Sims DO Work Phone: [facility] 04-11-2009 novel influenza-H1N1 -09, preservative-free, injectable Rad Sims DO Work Phone: [facility] 02-15-2002 diphtheria, tetanus toxoids and acellular pertussis vaccine, unspecified formulation Rad Sims DO Work Phone: [facility] 02-15-2002 measles, mumps and rubella virus vaccine Rad Sims DO Work Phone: [facility] 02-15-2002 poliovirus vaccine, inactivated Rad Sims DO Work Phone: [facility] 05-22-1998 diphtheria, tetanus toxoids and acellular pertussis vaccine, unspecified formulation Rad Sims DO Work Phone: [facility] 05-22-1998 haemophilus influenz ae type b vaccine, conjugate unspecified formulation Rad Sims DO Work Phone: [facility] 05-22-1998 trivalent poliovirus vaccine, live, oral Rad Sims DO Work Phone: [facility] 02-20-1998 measles, mumps and rubella virus vaccine Rad Sims DO Work Phone: [facility] 1997 diphtheria, tetanus toxoids and acellular pertussis vaccine, unspecified formulation Rad Sims DO Work Phone: [facility] 1997 haemophilus influenz ae type b vaccine, conjugate unspecified formulation Rad Sims DO Work Phone: [facility] 1997 hepatitis B vaccine, pediatric or pediatric/adolescent dosage Rad Sims DO Work Phone: [facility] 1997 diphtheria, tetanus toxoids and acellular pertussis vaccine, unspecified formulation Rad Sims DO Work Phone: [facility] 1997 haemophilus influenz ae type b vaccine, conjugate unspecified formulation Rad Sims DO Work Phone: [facility] 1997 poliovirus vaccine, inactivated Rad Sims DO Work Phone: [facility] 1997 diphtheria, tetanus toxoids and acellular pertussis vaccine, unspecified formulation Rad Sims DO Work Phone: [facility] 1997 haemophilus influenz ae type b vaccine, conjugate unspecified formulation Rad Sims DO Work Phone: [facility] 1997 poliovirus vaccine, inactivated Rad Sims DO Work Phone: [facility] 1997 hepatitis B vaccine, pediatric or pediatric/adolescent dosage Rad Sims DO Work Phone: [facility] 1997 hepatitis B vaccine, pediatric or pediatric/adolescent dosage Rad Sims DO Work Phone: [facility] Payers Date Payer Category Payer [facility] [id number] 2024 Unknown [id number] 2023 Medicaid [id number] [id number] 2022 Private Health Insurance [id number] .[id number]. [id number] 2022 Unknown [id number]. 1.13.159.2. 7.3.125465.315 2022 Blue [employer] Blue Shield [id number] 2.16.840.1.731197.19 1997 Unknown [id number] 2.16.840.1.865531.3.579.2. 175 1997 Unknown [id number] 2.16.840.1.575512.3.579.2. 593 1997 Unknown [id number] 2.16.840.1.467177.3.579.2. 593 1997 Unknown [id number] 2.16.840.1.139166.3.579.2. 93 1997 Unknown [id number] 2.16.840.1.753438.3.579.2. 727 1997 Unknown [id number] 2.16.840.1.980138.3.579.2. 727 1997 Unknown [id number] 2.16.840.1.429588.3.579.2. 727 1997 Unknown [id number] 2.16.840.1.113258.3.579.2. 727 1997 Unknown [id number] 2.16.840.1.765095.3.579.2. 1259 1997 Unknown [id number] 2.16.840.1.260951.3.579.2. 1259 1997 Unknown [id number] 2.16.840.1.723028.3.579.2. 1259 1997 Unknown [id number] 2.16.840.1.988926.3.579.2. 1259 1997 Unknown [id number] 2.16.840.1.930095.3.579.2. 1259 27-1997 Unknown [id number] 2.16.840.1.356294.3.579.2. 1258 1997 Unknown [id number] 2.16.840.1.961050.3.579.2. 1258 1997 Unknown [id number] 2.16.840.1.665054.3.579.2. 1258 1997 Unknown [id number] 2.16.840.1.131807.3.579.2. 1258 1997 Unknown [id number] 2.16.840.1.983006.3.579.2. 1258 1997 Unknown [id number] 2.16.840.1.057441.3.579.2. 1258 1997 Unknown [id number] 2.16.840.1.321316.3.579.2. 1258 1997 Unknown [id number] 2.16.840.1.994498.3.579.2. 1258 1997 Unknown [id number] 2.16.840.1.961341.3.579.2. 1258 1997 Unknown [id number] 2.16.840.1.791017.3.579.2. 1258 1997 Unknown [id number] 2.16.840.1.649013.3.579.2. 1258 1997 Unknown [id number] 2.16.840.1.731316.3.579.2. 1258 1997 Unknown [id number] 2.16.840.1.039611.3.579.2. 1258 1997 Unknown [id number] 2.16.840.1.283497.3.579.2. 1258 1997 Unknown [id number] 2.16.840.1.460575.3.579.2. 1258 1997 Unknown [id number] 2.16.840.1.536183.3.579.2. 1259 1997 Unknown [id number] 2.16.840.1.873501.3.579.2. 1259 1997 Unknown [id number] 2.16.840.1.727471.3.579.2. 1259 1959 Self-pay 1959 Unknown [id number] 1.2.840.107796.1.13.239.2. 7.3.230249.315 Medicaid [place] [employer] [id number] Unknown [id number] 2.16.840.1.472439.3.579.2. 593 Unknown O [id number] Unknown [id number] 2.16.840.1.877266.3.579.2. 531 Unknown [id number] 2.16.840.1.939034.3.579.2. 531 Unknown [id number] 2.16.840.1.628538.3.579.2. 531 Unknown [id number] 2.16.840.1.118173.3.579.2. 531 Unknown [id number] 2.16.840.1.247042.3.579.2. 531 Social History Date Type Detail Facility Start: 12-07-2020 End: 10-21-2022 Tobacco smoking status LAIS Never smoker [facility] Comment on above: Denies Start: 12-07-2020 Alcohol intake Ex-drinker (finding) [facility] Phone: Start: 1997 Sex Assigned At Not on file [facility] [employer] Phone: Exposure to SARS-CoV -2 (event) Not sure [facility] Start: 06-29-2023 End: 01-11-2024 Sex Assigned At [facility] Tobacco [facility] Comment on above: Denies. Tobacco smoking status No Smokin g Status Entered [facility] Start: 1995 Sex Assigned At [facility] Start: 06-29-2023 Tobacco smoking stat us NHIS Occasional tobacco smoker [facility] Start: 10-21-2022 End: 06-29-2023 Tobacco use and exposure Smokeless tobacco non-user [facility] Start: 06-29-2023 End: 01-11-2024 History of Social function [facility] Start: 06-29-2023 Tobacco Comment Vapes occasionally [facility] Start: 07-05-2023 End: 09-29-2024 Alcohol intake Current drinker of alcohol (finding) [facility] How often to you hav e a drink containing alcohol? Monthly or less [facility] How many standard drinks containing alcohol do you have on a typical day? 1 or 2 [facility] How often do you hav e 6 or more drinks on 1 occasion? Never [facility] Start: 04-09-2023 Alcohol Comment Once in a whil e. caffeine; 2 to 3 cups of coffee per day [facility] Start: 07-27-2023 End: 03-24-2024 Tobacco smoking status NHIS Ex-smoker (finding) [facility] How many standard drinks containing alcohol do you have on a typical day? Patient does not drink [facility] Start: 01-11-2024 Alcohol Comment Once in a while [facility] Start: 01-23-2024 [facility] Goals Date Patient Goal Desired Activity /State Personal health goal Functional Status Date Assessment Result Facility 03-24-2024 Functional Status N/A [facility] 01-15-2024 Functional Status N/A [facility] 07-19-2022 Functional Status N/A [facility] 07-08-2022 Functional Status N/A [facility] Clinical Notes 07-20-2021 to 10-05-2024 Dyan Lo NP - 10/05/2024 3:20 PM Colt Weber MA - 09/29/2024 8:30 AM Renny Rhodes LPN - 09/22/2024 8:30 AM Renny Rhodes LPN - 09/15/2024 9:00 AM EDT Note Date & Type Note Facility 10-05-2024 History of Presen t illness Narrative Reason [...] CHEW Oral for 30 Days nystatin (Mycostatin) 913957 UNIT/GM powder Topical, 2 times daily MV-Min-Fe [...] nursing note reviewed. Exam conducted with a die technician present. Vitals: Estimated body mass index is 42.07 kg/m as calculated from the following: Height [...] week for routine OB appointment. Documented by Dyan Lo NP on behalf of: Dyan Lo NP documented in this encounter [facility] 09-29-2024 History of Presen t illness Narrative Reason [...] tonsillectomy 01/07/2023 Mild persistent asthma without complication ([facility]/HCC) 01/07/2023 Postoperative pain 01/07/2023 Recurrent streptococcal tonsillitis 01/07/2023 Past Medical History: Diagnosis Date Asthma Moderate single current episode of major depressive disorder (HCC) (CMS/HCC) Ovarian cyst 2016 Plantar verruca Tinnitus, bilateral HISTORY PAST MEDICAL HISTORY SOCIAL HISTORY Past Medical History: Diagnosis Date Asthma Moderate single current episode of major depressive disorder (HCC) ([facility]) NAFLD (nonalcoholic fatty liver disease) [...] nursing note reviewed. Exam conducted with a die technician present. Vitals: Estimated body mass index is 41.7 kg/m as calculated from the following: Height [...] Donovan Vora DO documented in this encounter [facility] 09-22-2024 History of Presen t illness Narrative Reason for Appointment: Patient ID: Devorah Shelton is a 29 y.o. female who presents for Routine Visit Patient presents today for Return OB appointment. MEDICATIONS Current Outpatient Medications Medication Instructions BABY ASPIRIN PO 81 mg MV-Min-Fe Fum-FA-DHA ( 1 PO) Take by [...] Constitutional: Appearance: Normal appearance. She is well-developed. Genitourinary: Vulva normal. Cardiovascular: Rate and Rhythm: Normal rate and [...] nursing note reviewed. Exam conducted with a die technician present. Vitals: Estimated body mass index is 41.56 kg/m as calculated from the following: Height as of 01/11/24: 5' 2 . Weight as of this encounter: 227 lb 4 oz. BP: 118/82 Patient's last menstrual period was 01/09/2024. ASSESSMENT & PLAN ICD-10-CM 1. Third trimester Z34.93 POCT urinalysis dipstick manually resulted CANCELED: CULTURE, GROUP B STREP WITH SUSCEPTIBLITY CANCELED: CULTURE, GROUP B STREP WITH SUSCEPTIBLITY 2. 36 weeks gestation of Z3A.36 Patient presents today for a routine obstetrics appointment. Patient is currently 36w5d with a Estimated Date of Delivery: 10/15/24. Pelvic exam revealed no dilation at this time. Patient to return to clinic in 1 week for routine OB. IOL will be 10/15/24 if she does not go prior to that date. Documented by Viola Rhodes LPN on behalf of: Donovan Vora DO documented in this encounter [facility] 09-15-2024 History of Presen t illness Narrative Reason for Appointment: Patient ID: Devorah Shelton is a 29 y.o. female who presents for Routine Visit Patient presents today for Return OB appointment. MEDICATIONS Current Outpatient Medications Medication Instructions BABY ASPIRIN PO 81 mg clindamycin (CLEOCIN) 300 mg, Oral, 3 times daily nystatin (MYCOSTATIN) 600,000 Units, Oral, 4 times daily, Swish and spit. Retain in mouth as long as possible. MV-Min-Fe Fum-FA-DHA ( 1 PO) Take by [...] Constitutional: Appearance: Normal appearance. She is well-developed. Genitourinary: Vulva normal. Cardiovascular: Rate and Rhythm: Normal rate and [...] nursing note reviewed. Exam conducted with a die technician present. Vitals: Estimated body mass index is 41.2 kg/m as calculated from the following: Height as of 01/11/24: 5' 2 . Weight as of this encounter: 225 lb 4 oz. BP: 124/72 Patient's last menstrual period was 01/09/2024. ASSESSMENT & PLAN ICD-10-CM 1. Third trimester Z34.93 POCT urinalysis dipstick manually resulted CULTURE, GROUP B STREP WITH SUSCEPTIBLITY CULTURE, GROUP B STREP WITH SUSCEPTIBLITY 2. 35 weeks gestation of Z3A.35 3. size inconsistent with dates O26.849 US OB follow up transabdominal approach Patient is doing well but has complaints of being tired and having maternal discomfort due to . Patient verbalized frequent movement and was instructed to perform kick counts three times per day. labor precautions were given, LARC consent was signed/declined, and GBS was obtained. Cervical check was performed and patient is 0cm dilated. Orders Placed This Encounter Procedures US OB follow up transabdominal approach CULTURE, GROUP B STREP WITH SUSCEPTIBLITY POCT urinalysis dipstick manually resulted Follow Up: Patient is to return to office in 1 week for routine OB appointment Documented by Viola Rhodes LPN on behalf of: Donovan Vora DO documented in this encounter [facility] 09-08-2024 History of Presen t illness Narrative Reason for Appointment: Patient ID: Devorah Shelton is a 29 y.o. female who presents for Routine Visit Patient presents today for Return OB appointment. MEDICATIONS Current Outpatient Medications Medication Instructions BABY ASPIRIN PO 81 mg clindamycin (CLEOCIN) 300 mg, Oral, 3 times daily fluconazole (DIFLUCAN) 150 mg, Oral, Once, This is a 1 time dose, take single tablet by mouth. nystatin (MYCOSTATIN) 600,000 Units, Oral, 4 times daily, Swish and spit. Retain in mouth as long as possible. MV-Min-Fe Fum-FA-DHA ( 1 PO) Take by [...] nursing note reviewed. Exam conducted with a die technician present. Vitals: Estimated body mass index is 40.24 kg/m as calculated from the following: Height as of 24: 5' 2 . Weight as of this encounter: 220 lb. BP: 120/72 Patient's last menstrual period was 01/09/2024. ASSESSMENT & PLAN ICD-10-CM 1. Third trimester Z34.93 POCT urinalysis dipstick manually resulted 2. 34 weeks gestation of Z3A.34 3. Yeast infection B37.9 fluconazole (Diflucan) 150 MG tablet Return OB: Patient presents today for a routine obstetrics appointment. Patient is currently 34w5d . Patient states she is doing well [...] week for routine OB appointment. Documented by Viola Rhodes LPN on behalf of: Donovan Vora DO documented in this encounter [facility] 09-07-2024 Telephone encounter Note Reviewed and results discussed with the patient. She requested a printed copy for her records. [facility] Work Phone: 09-07-2024 Miscellaneous Notes Reviewed and results discussed with the patient. She requested a printed copy for her records. documented in this encounter [facility] 09-05-2024 History of Presen t illness Narrative Images from the original note were not included. [address], [address] [facility], [address] P: [phone] F: [phone] HPI Historian of HPI: patient Devorah Shelton is a 29 y.o. female who presents today to the Urgent Care with the following complaints and denials which have been present for Began this morning 1 day(s)with a white film on tongue C/O Denies Symptom Comments [] [x] Runny Nose [] [x] Difficulty Swallowing [x] [] Sore Throat [] [x] Cough [] [x] Ear Pain [] [x] Fever [] [x] Chills [] [x] Nasal Congestion [x] [] Myalgia [x] [] Sinus Pain HUSAIN [] [x] Sinus Pressure Additional Comments: pt has taken Tylenol OTC medication with relief ROS A complete system ROS was performed and negative aside from the pertinent positives noted in the HPI and PE. PHYSICAL EXAM Examination General Examination: General Examination: in no acute distress, well developed, well nourished Head: normocephalic, atraumatic Eyes: no discharge Ears: BOTH EARS canals normal. TM with mild effusion and erythema. Bilat TM with scarring right greater than left Nose: nares patent, sinuses nontender bilaterally Oral Cavity: mucosa moist Throat: pharynx with erythema and PND. No trismus, muffled voice, drooling or protrusion of soft palate. Uvula midline, tongue with white coating. Has geographic appearance. Neck/Thyroid: neck supple, trachea midline Lymph Nodes: no cervical adenopathy Skin: warm and dry Heart: S1, S2 normal, regular rate and rhythm, no S3, S4, no murmurs, rubs, gallops Lungs: clear anteriorly and posteriorly, clear to auscultation bilaterally, good air movement, no wheezes, rales, rhonchi Chest: normal shape and expansion, normal anteroposterior (AP) diameter Psych: alert, oriented. TREATMENT PLAN 1. Pharyngitis, unspecified etiology Rapid covid flu and strep neg. Discussed tongue findings and pt denies hx of geographic tongue and symptomatic with thrush like sx with burning of tongue and loss of taste. Throat culture obtained, including yeast culture. Start nystatin as directed-see rx, discussed proper technique with use, pt to contact OB prior to starting due to concurrent . Immediate eval if new, worsening sx otherwise follow up and further recommendations pending send out culture results. FSBS obtained due to , hx of failed GGT test and concern for oral zabrina and WNL today. - RAPID DNA COVID - INFLUENZA DNA PROBE - STREP DNA PROBE - OTOLARYNGOLOGY INFECTION PANEL 2. Coated tongue See 1 - POCT glucose - OTOLARYNGOLOGY INFECTION PANEL - nystatin (Mycostatin) 479929 UNIT/ML suspension; Take 6 mL (600,000 Units) by mouth in the morning and 6 mL (600,000 Units) at noon and 6 mL (600,000 Units) in the evening and 6 mL (600,000 Units) before bedtime. Do all this for 10 days. Swish and spit. Retain in mouth as long as possible. Dispense: 240 mL; Refill: 0 3. 34 weeks gestation of (Primary) See 1 - POCT glucose documented in this encounter [facility] 08-25-2024 History of Presen t illness Narrative Reason for Appointment: Patient ID: Devorah Shelton is a 29 y.o. female who presents for Routine Visit Patient presents today for Return OB appointment. MEDICATIONS Current Outpatient Medications Medication Instructions BABY ASPIRIN PO 81 mg, Oral MV-Min-Fe Fum-FA-DHA ( 1 PO) Take by [...] reviewed. Vitals: Estimated body mass index is 39.69 kg/m as calculated from the following: Height as of 01/11/24: 5' 2 . Weight as of this encounter: 217 lb. BP: 118/70 Patient's last menstrual period was 01/09/2024. ASSESSMENT & PLAN ICD-10-CM 1. Third trimester Z34.93 POCT urinalysis dipstick manually resulted 2. 32 weeks gestation of Z3A.32 Return OB: Patient presents today for a routine obstetrics appointment. Patient is currently 32w5d . Patient states she is doing well [...] week for routine OB appointment. Documented by PARADISE Griffiths on behalf of: PARADISE Griffiths documented in this encounter [facility] 07-27-2024 History of Presen t illness Narrative [...] nursing note reviewed. Exam conducted with a die technician present. Vitals: Estimated body mass index is [...] week for routine OB appointment. Documented by Dyan Lo NP on behalf of: PARADISE Griffiths documented in this encounter [facility] 07-12-2024 History of Presen t illness [...] nursing note reviewed. Exam conducted with a die technician present. Vitals: Estimated body mass index is [...] Donovan Vora DO documented in this encounter [facility] 06-17-2024 Note ED Patient Education Note [...] added (diluted fruit juice). ??? Eat bland, aokw-wt-iuecxi foods in small amounts as you are able. These foods include bananas, applesauce, rice, lean meats, toast, and crackers. ??? Avoid fluids that contain a lot of sugar or caffeine, such as energy drinks, sports drinks, and soda. ??? Avoid alcohol. ??? Avoid spicy or fatty foods. General instructions ??? Take syfe-sbi-lfmomdi and prescription medicines only as told by your health care provider. ??? Drink enough fluid to keep your urine pale yellow. ??? Wash your hands often using soap and water for at least 20 seconds. If soap and water are not available, use hand blending machine feeder. ??? Make sure that everyone in your [...] and drinking to prevent dehydration. ??? Take bgbg-qgj-rfykujy and prescription medicines only as told by [...] provider. Document Revised: 11/15/2021 Document Reviewed: 11/15/2021 [employer] Patient Education ? 2023 [employer]. [facility] 06-09-2024 History of Presen t illness [...] nursing note reviewed. Exam conducted with a die technician present. Vitals: Estimated body mass index is [...] Donovan Vora DO documented in this encounter [facility] 05-10-2024 History of Presen t illness [...] of: PARADISE Griffiths documented in this encounter [facility] 04-25-2024 History of Presen t illness Narrative Images from the original note were not included. [address] , [address] [facility], [address] P: [phone] F: [phone] HPI Historian of HPI: patient Devorah Shelton [...] ear normal. Nose: Nose normal. Mouth/Throat: Lips: [place]. Mouth: Mucous membranes are moist. Pharynx: Oropharynx [...] gestation of Reviewed. documented in this encounter [facility] 04-11-2024 History of Presen t illness [...] nursing note reviewed. Exam conducted with a die technician present. Vitals: Estimated body mass index is [...] or undercooked meat, and stay away from [facility]. Patient has been consulted regarding any further do's and don'ts of . Patient voiced understanding and all questions and concerns were answered. Orders Placed This Encounter Procedures POCT urinalysis dipstick manually resulted Follow Up: Patient is to return in 4 weeks for routine OB appointment. Documented by Viola Rhodes LPN on behalf of: Donovan Vora DO documented in this encounter [facility] 03-28-2024 Telephone encounter Note Pt fell [...] wrist to ensure no fracture. Ordered to [facility]. Annie as made aware. [facility] 03-28-2024 Miscellaneous Notes Pt fell last week. She was at ER and they did an x ray of her wrist. They recommended repeat x rays if no improvement once swelling subsided. The pain is still present and tender to movement or palpation. Bruising observed to forearm as well. Pt requesting x ray of forearm and wrist to ensure no fracture. Ordered to [facility]. She as made aware. documented in this encounter [facility] 03-25-2024 Hospital Discharg e instructions Patient [...] are safe for you. General instructions Take kadl-sgo-zcaqplt and prescription medicines only as told by [...] provider. Document Revised: 09/17/2020 Document Reviewed: 09/17/2020 [employer] Patient Education 2023 [employer]. Follow Up Care 03/24/2024 18:46:04 With:JELLY MIRI Address: [address] [place], [place] [id number]- Business (1) When:03/27/2024 [facility] 03-24-2024 Note ED Patient Education Note [...] safe for you. General instructions ??? Take hynb-wic-xzvzbtl and prescription medicines only as told by [...] swelling gets worse (more content not included)... [facility] 03-10-2024 History of Presen t illness [...] or undercooked meat, and stay away from [facility]. Patient has also been advised to [...] by: Sarah Land documented in this encounter [facility] 02-11-2024 Telephone encounter Note Urine test +. Patient lab requested. [facility] 02-11-2024 Miscellaneous Notes Urine test +. Patient lab requested. documented in this encounter [facility] 01-16-2024 Hospital Discharg e instructions Patient [...] mouth or applied to the skin. Take xyhf-ydu-whykrpg and prescription medicines only as told by [...] provider. Document Revised: 09/13/2020 Document Reviewed: 08/22/2020 [employer] Patient Education 2022 [employer]. Follow Up Care 01/15/2024 21:25:10 With:JELLY CHERY Address: [address] [place], [place] [id number] Business (1) When:01/18/2024 Comments:To schedule follow-up appointment with your family physician if symptoms not improve in the next 2 to 3 days. Alternate Tylenol, ibuprofen, and ice as needed for pain management. Return to the ED with any worsening symptoms [facility] 01-15-2024 Note ED Patient Education Note [...] mouth or applied to the skin. Take qiqi-jgq-dumpcbp and prescription medicines only as told by [...] provider. Document Revised: 09/13/2020 Document Reviewed: 08/22/2020 [employer] Patient Education ? 2022 [employer]. [facility] 01-15-2024 Evaluation + Plan note Extrac betty from: Title:ED Note Author:Whitney Frost PA-C te:01/15/24 Hand pain, left (M79.642: Pa in in left hand) Orders: XR Hand 3+ Views Left [facility] 02-11-2024 History of Present illness Narrative* [...] TEST(S) ORDERS FOR RESULTS documented in [id number] NoteHNO ID: [id number] Author: CHRISTEN DIAS RT(R) Service: Radiology Author [...] PATIENT PRESENTS WITH AN IMPLANTABLE OR ATTACHED PUBLIC HEALTH DENTIST: No RADIOLOGY DEPARTMENT: General X-ray: Exam(s) Completed: Upper Extremity X-Ray(s): Hand, right PERIPHERAL IV DATA: Not applicable SIGNED BY: RT Lb(R) June 29, 2023 4:27 [facility]02-05-2024 NoteHNO ID: [id number] Author: MIGUEL ANG PA-C Service: ? Author Type: Physician Teacher Public Health Type: Progress Notes Filed: 06/30/2023 08:33 Note Text: PLASTIC SURGERY DEPARTMENT [facility] Hand Surgery Note [] New referred by []self []physician.......... [] Follow-up CC: ..right hand pain............ ? HPI: Devorah is a 28 year old female who presnets after being bit by a dog in February 2023. Reports was bit at the [facility] and has never healed correctly. Patient also suffered infection of the right hand following a dog bite which she was treated with antibiotics. She reported that the infection started to move up the arm past the wrist. 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 Dominant Hand: [...] to calculate BSA. AXEL (more content not included)...[facility]02-05-2024 History of Present illness Narrative* Christen Dias [...] PATIENT PRESENTS WITH AN IMPLANTABLE OR ATTACHED PUBLIC HEALTH DENTIST: No RADIOLOGY DEPARTMENT: General X-ray: Exam(s) Completed: Upper Extremity X- Ray(s): Hand, right PERIPHERAL IV DATA: Not applicable SIGNED BY: RT Lb(R) June 29, 2023 4:27 PM [facility] History of Present illness Narrative* Miguel Agn PA-C - 06/29/2023 4:16 PM EST PLASTIC SURGERY DEPARTMENT [facility] Hand Surgery Note [] New referred by []self []physician.......... [] Follow-up CC: ..right hand pain............ ? HPI: Devorah is a 28 year old female who presnets after being bit by a dog in February 2023. Reportswas bit at the [facility] and has never healed correctly. Patient also suffered infection of the right hand following a dog bite which she was treated with antibiotics. She reported that the infection started to move up the arm past the wrist. 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 [facility] NoteOrthopedic Surgery Subjective Follow-up of the Right [...] exhibit full active and passive ROM. Strength: fiber machine tender 5/5, thumb 5/5, interossei 5/5 Sensation: intact [...] is planning on doing hand therapy in [place]. - WBAT and ROM of digits as [...] may be an additional personal documentation from me.[facility]09-26-2023 Note 27-year-old female beeft-nzvz-ddouytij who sustained a dog bite to her [...] of motion exercises with occupational therapy at [facility]. She will complete her antibiotic regime. We will have her follow-up with Dr. Smallwood next week. She will report immediately the emergency room should she develop any signs of infection.[facility]05-26-2023 Evaluation note* Encounter Date Diagnosis [...] physician if no improvement in 2-3 days [facility] 02-26-2023 Hospital Discharge instructions Patient Education [...] at all times when lying down. Take mqwv-zem-fyezbmg and prescription medicines only as told by [...] 03/11/2005 Document Revised: 04/23/2018 Document Reviewed: 04/03/2017 [employer] Patient Education 2020 [employer] Follow Up Care 07/19/2022 21:36:50 With:PALMIRA RIGGS Address: [facility] [address] [address] [facility] (1) When:Within 3 Day(s) [facility]02-25-2023 Evaluation + Plan noteExtracted from: Title:ED Note Author:Roman Syed DO Date :07/19/22 [facility]02-15-2023 Hospital Discharge instructions Patient Education 07/08/2022 [...] 08/02/2012 Document Revised: 04/23/2018 Document Reviewed: 07/04/2016 [employer] Patient Education 2020 [employer]. 07/08/2022 22:15:17 Dysphagia Eating Plan, Pureed Dysphagia Eating Plan, Pureed This diet is helpful for people with moderate to severe swallowing problems. Pureed foods are smooth and are prepared without lumps so that they can be swallowed safely. Work with your health care provider and your diet and sales support specialist (dietitian) to make sure that you [...] it. This can be done with a skilled laborer. ?Moistening it. This can be done by [...] best for you. Grains Soft breads, pancakes, Tristanian toast, muffins, and bread stuffing pureed to [...] foods Coarse or seeded herbs and spices. Ibapah preserves. Jams with seeds. Whole sandwiches. Non-pureed casseroles. [place]apah soups. Summary Pureed foods can be helpful [...] 05/11/2006 Document Revised: 09/01/2019 Document Reviewed: 07/14/2017 [employer] Patient Education 2020 [employer]. 07/08/2022 22:15:17 Dysphagia Eating Plan, Minced and [...] health care provider and your diet and sales support specialist (dietitian) to make surethat you are [...] Cooking You may need to use a skilled laborer, whisk, or masher to soften some of [...] or seeds. Pancakes, sweet rolls, pastries, and Tristanian toast that have been moistened with syrup [...] vegetables, such as celery, peas, broccoli, cabbage, [place] sprouts, and asparagus. Potato skins. Potato and other vegetable chips. Fried or Tristanian-fried potatoes. Cooked corn and peas. Fruits Hard, [...] 05/11/2006 Document Revised: 09/01/2019 Document Reviewed: 08/21/2017 [employer] Patient Education 2020 [employer]. 07/08/2022 22:15:17 Dehydration, Adult, Lphn-fy-Gago Dehydration, Adult Dehydration is when there is [...] a lot of fat or sugar. Take svyx-wan-aubtbmz and prescription medicines only as told by [...] 03/07/2010 Document Revised: 04/23/2018 Document Reviewed: 07/04/2016 [employer] Patient Education 2019 [employer]. Follow Up Care 07/08/2022 17:43:05 With:PALMIRA SHELLJENNIFERRICHARD Address: [address] , [place] [address] Business (1) When:07/11/2022 21:56:31 [facility]01-30-2023 Evaluation note* Encounter Date Diagnosis Assessment [...] should improve within the next 4-7 days. [facility] 01-25-2023 Evaluation note* Encounter Date Diagnosis [...] covered if open and draining. Otherwise leave [employer]. May try to treat with piercing still [...] Pt understood and agreed to tx plan. [facility] 12-30-2022 Evaluation note* Encounter Date Diagnosis Assessment Notes Treatment Notes Treatment Clinical Notes Apr, Strep pharyngitis (ICD-10 - J02.0) [facility] 11-23-2022 Evaluation note* Encounter Date Diagnosis [...] Pt understood and agreed to treatment plan. [facility] 10-28-2022 Evaluation note* Encounter Date Diagnosis [...] Pt understood and agreed to treatment plan. [facility] 02-26-2022 Evaluation note* Encounter Date Diagnosis [...] days. Patient understands and agrees the plan. [employer] Other Evaluation + Plan note No data available for this section [facility] Diagnosis Trigger point with back pain- Primary Backache, unspecified Hepatic steatosis Other chronic nonalcoholic liver disease documented in this encounter [employer] Work Phone: evaluation noteNo assessment information available [facility] Work Phone: Evaluation note* Diagnosis Right hand pain Pain in limb [facility] Diagnosis Right hand pain- Primary Pain in limb [facility]* Diagnosis Recurrent acute suppurative otitis media without spontaneous rupture of tympanic membrane of both sides- Primary Pharyngitis, unspecified etiology [facility] Diagnosis Onset Date Resolution Status Dog bite of right hand with infection acute [facility] Work Phone: Evaluation note* Diagnosis Onset Date Resolution Status Dog bite of right hand with infection acute Abnormal MRI acute Dog bite of right hand with infection acute Injury of right hand acute [facility] Work Phone: Evaluation note* Diagnosis Onset Date Resolution Status Dog bite of right hand with infection acute Dog bite of right hand with infection acute Injury of right hand acute Dog bite of right hand acute [facility] Work Phone: Evaluation note* Diagnosis Onset Date Resolution Status Dog bite of right hand with infection acute Injury of right hand acute Dog bite of right hand acute Pain of right middle finger acute [facility] Work Phone: Evaluation note* Diagnosis Onset Date Resolution Status Dog bite of right hand with infection acute Injury of right hand acute Dog bite of right hand acute Pain of right middle finger acute Skin yeast infection acute [facility] Work Phone: Evaluation note* Diagnosis Onset Date Resolution Status Dog bite of right hand with infection acute Injury of right hand acute Dog bite of right hand acute Pain of right middle finger acute Skin yeast infection acute Dog bite of right hand acute Pain of right middle finger acute [facility] Work Phone: Evaluation note* Diagnosis Onset Date Resolution Status Dog bite of right hand acute Pain of right middle finger acute [facility] Work Phone: Evaluation note* Diagnosis Missed [...] inconsistent with dates [facility] Diagnosis Third trimester state, incidental 32 weeks gestation of [facility]* Diagnosis 34 weeks gestation of - Primary Pharyngitis, unspecified etiology Coated tongue Hypertrophy of tongue papillae [facility] Diagnosis Third trimester state, incidental 34 weeks gestation of Yeast infection [facility] Diagnosis Third trimester state, incidental 35 weeks gestation of size inconsistent with dates [facility] Diagnosis Third trimester state, incidental 36 weeks gestation of [facility] Diagnosis Third trimester state, incidental 37 weeks gestation of Macrosomia Exceptionally large baby relating to long gestation Yeast infection [facility] Diagnosis Third trimester state, incidental 38 weeks gestation of [facility] Narrative - Reported* Type Description Date Medical History otitis media Medical History depression and anxiety Medical History asthma Medical History joint swelling Surgical History adenoidectomy Surgical History PE tubes [employer] Other History general Narrative - Reported* Type Description Date Medical History otitis media Medical History depression and anxiety Medical History asthma Medical History joint swelling Surgical History adenoidectomy Surgical History PE tubes Surgical History tonsillectomy 06/2022 [employer] [facility] [employer] [facility] Progress note No data available for this section [facility] ([facility]ative[facility] Diagnostic Procedure Only (Routine) - Authorized Specialty Diagnoses / Procedures Referred By Dotac t Referred To Contact XR IMAGING Diagnoses Right hand pain Procedures XR HAND GENERAL 3V PA/LAT/OBL RIGHT RADEX HAND MINIMUM 3 VIEWS Brianda Cartwright MD [address] [place] [address] [place] [id number] Referral ID Status Reason Start Date Expiration Date Visits Requested Visits Authorized [id number] Authorized Auto-Generat ed Referral 06/29/2023 07/28/2024 10 10 [facility] Diagnostic Procedure Only (Routine) - Authorized Specialty Diagnoses / Procedures Referred By Contac t Referred To Contact XR IMAGING Diagnoses Right hand pain Procedures XR HAND GENERAL 3V PA/LAT/OBL RIGHT RADEX HAND MINIMUM 3 VIEWS Brianda Cartwright MD [address] [place] [address] [place] [id number] Referral ID Status Reason Start Date Expiration Date Visits Requested Visits Authorized [id number] Authorized Auto-Generat ed Referral 06/29/2023 07/28/2024 10 10 [facility] Summary Purpose Family History Relationship Condition Age [...] section and content) DATE CREATED AUTHOR 12/16/2020 [facility] DATE CREATED AUTHOR AUTHOR'S ORGANIZ ATION 03/27/2022 [facility] DATE CREATED AUTHOR AUTHOR'S ORGANIZ ATION 10/01/2022 [facility] dical Specialist DATE CREATED AUTHOR AUTHOR'S ORGANIZ ATION 02/25/2023 [facility] DATE CREATED AUTHOR AUTHOR'S ORGANIZ ATION 07/04/2023 [facility] DATE CREATED AUTHOR AUTHOR'S ORGANIZ ATION 11/22/2023 [facility] DATE CREATED AUTHOR AUTHOR'S ORGANIZ ATION 01/06/2024 [facility] DATE CREATED AUTHOR AUTHOR'S ORGANIZ ATION 06/18/2024 Dimitry Hoff [facility] DATE CREATED AUTHOR AUTHOR'S ORGANIZ ATION 10/07/2024 [facility] dical Specialists EPIC REASON FOR VISIT (unrecogniz ed section and content) Reason Comments Radio Gen A21 Specialty Diagnoses / Procedures Referred By Contac t Referred To Contact XR IMAGING Diagnoses Right hand pain Procedures XR HAND GENERAL 3V PA/LAT/OBL RIGHT RADEX HAND MINIMUM 3 VIEWS Brianda Cartwright MD [address] [place] [address] [place] [address] Referral ID Status Reason Start Date Expiration Date Visits Requested Visits Authorized [id number] Authorized Auto-Generat ed Referral 06/29/2023 07/28/2024 10 10 Reason Comments Initial Visit Reason Comments Routine Visit Reason Comments Sore Throat Patient Care team informatio n (unrecognized section and content) Team Status: Active Member Role Status Dates Jelly Chery MD Primary Care Provider Active Team Status: Inactive Member Role Status Dates Jelly Chery MD Primary Care Provider Active Simone Meng MD Emergency Provider Active Team Status: Inactive Member Role Status Dates Jelly Chery MD Primary Care Provider Active Susie Johnson NP-C Attending Provider Active Shift Boss Relationship Specialty Start Date End Date Jelly Chery MD [address] [place] [address] Referring Internal Medicine 06/26/23 Shift Boss Relationship Specialty Start Date End Date Jelly Chery MD [address] [place] [address] Referring Internal Medicine 06/26/23 Shift Boss Relationship Specialty Start Date End Date Jelly Chery MD [address] [place] [address] PCP - General Internal Medicine 10/17/22 Team [...] February 04, 2024 End: February 04, 2024 Shift Boss Relationship Specialty Start Date End Date Jelly Chery MD [address] [place] [id number] PCP - General Internal Medicine 10/17/22 Shift Boss Relationship Specialty Start Date End Date Jelly Chery MD [address] [place] [address] PCP - General Internal Medicine 10/17/22 Shift Boss Relationship Specialty Start Date End Date Jelly Chery MD [address] [place] [address] PCP - General Internal Medicine 10/17/22 Shift Boss Relationship Specialty Start Date End Date Jelly Chery MD [address] [place] [address] PCP - General Internal Medicine 10/17/22 Shift Boss Relationship Specialty Start Date End Date Jelly Chery MD [address] [place] [address] PCP - General Internal Medicine 10/17/22 Shift Boss Relationship Specialty Start Date End Date Jelly hCery MD [address] [place] [address] PCP - General Internal Medicine 10/17/22 Shift Boss Relationship Specialty Start Date End Date Jelly Chery MD [address] [place] [address] PCP - General Internal Medicine 10/17/22 Shift Boss Relationship Specialty Start Date End Date Jelly Chery MD [address] [place] [address] PCP - General Internal Medicine 10/17/22 Shift Boss Relationship Specialty Start Date End Date Jelly Chery MD [address] [place] [address] PCP - General Internal Medicine 10/17/22 Shift Boss Relationship Specialty Start Date End Date Jelly Chery MD [address] [place] [address] PCP - General Internal Medicine 10/17/22 Shift Boss Relationship Specialty Start Date End Date Jelly Chery MD [address] [place] [address] PCP - General Internal Medicine 10/17/22 Shift Boss Relationship Specialty Start Date End Date Jelly Chery MD [address] [place] [address] PCP - General Internal Medicine 10/17/22 Shift Boss Relationship Specialty Start Date End Date Jelly Chery MD [address] [place] [address] PCP - General Internal Medicine 10/17/22 Shift Boss Relationship Specialty Start Date End Date Jelly Chery MD [address] [place] [address] PCP - General Internal Medicine 10/17/22 Shift Boss Relationship Specialty Start Date End Date Jelly Chery MD [address] [place] [address] PCP - General Internal Medicine 10/17/22 Shift Boss Relationship Specialty Start Date End Date Jelly Chery MD [address] [place] [address] PCP - General Internal Medicine 10/17/22 Shift Boss Relationship Specialty Start Date End Date Jelly Chery MD [address] [place] [address] PCP - General Internal Medicine 10/17/22 Shift Boss Relationship Specialty Start Date End Date Jelly Chery MD [address] [place] [address] PCP - General Internal Medicine 10/17/22 Goals [...] or prosecute any alcohol or drug abuse patient.[facility] the event this information is protected by the Federal Confidentiality of Alcohol and Drug Abuse Patient Records regulations: The Federal rules restrict any use of the information to criminally investigate or prosecute any alcohol or drug abuse patient.[facility] FOR RECORDS PERTAINING TO PATIENTS WHO ARE [...] BE BASED ON THE PRIMARY CLINICAL RECORDS. [facility] [employer] [facility]. provides no warranty or guarantee of the accuracy or completeness of information in this document.
[2024-10-08 11:17] VITALS: BP 105/71; PULSE 75
[2024-10-08 11:42] LABS: Bilirubin Urine NEGATIVE (NEGATIVE); Blood Urine NEGATIVE (NEGATIVE); Clarity Urine SL CLOUDY (CLEAR); Color Urine YELLOW (YELLOW); Glucose Urine UA NEGATIVE (NEGATIVE); Ketones Urine TRACE mg/dL (NEGATIVE); Leukocyte Esterase Urine TRACE (NEGATIVE); Nitrite Urine NEGATIVE (NEGATIVE); Protein Urine 30 mg/dL (NEG/TRACE); Specific Gravity Urine >=1.030 (1.005-1.025); Urobilinogen Urine 0.2 EU/dL (0.2-1.0)
[2024-10-08 11:43] LABS: Urine Microscopic Indicated YES
[2024-10-08 11:49] LABS: Bacteria Urine LARGE #/HPF (NONE SEEN); Cast Seen? NONE SEEN #/LPF (NONE SEEN); Crystals Seen? None Seen #/HPF (None Seen); Mucus Urine LARGE (NONE SEEN); RBC Urine 0-2 #/HPF (0-2); Squamous Epithelial Cell Urine MANY #/LPF (NONE/RARE); Transitional Epi Cells Urine RARE #/LPF (NONE SEEN); Urine Culture Indicated YES-LC
[2024-10-08 11:50] LABS: Amnisure NEGATIVE (NEGATIVE); Internal Control Within Normal Limits
== END 2024-10-08 12:03 | disposition home or self-care (01) ==
PROVIDERS: Admitting Provider Family Medicine Addiction Medicine; Visit Provider Family Medicine Addiction Medicine
DX: O26.893 Other specified pregnancy related conditions, third trimester (principal); Z3A.39 39 weeks gestation of pregnancy; R68.89 Other general symptoms and signs
CPT/HCPCS: 59025; 81001; 84112; 87077; 87086; G0378; G0379

== ENCOUNTER 2024-10-11 17:59 | Outpatient (OUT) | payer BC, OTHER, SELFPAY ==
[2024-10-11 18:06] VITALS: BP 124/77; PULSE 78
--- OUTSIDE RECORDS SUMMARY | 2024-10-11 18:20 | XMS_ITS | CCD ---
Author Organization [facility] Team Providers Care Bridge [employer] Person Name Role Phone Palmira Riggs DO Primary Care Provider [phone] SIMONE MANLEY Attending Unavailable PALMIRA RIGGS Primary [...] Care Provider MD Simone Meng Emergency Provider [phone] MARISA SMALLWOOD Referring Unavailable MARISA SMALLWOOD Attending Unavailable JAISON PETIT Attending Unavailable MD Jelly Chery Primary Care Provider MD Simone Meng Emergency Provider [phone] JONATHAN Johnson Attending Provider [phone] Jelly Chery MD Unavailable MIGUEL ANG Attending Unavailable BRIANDA CARTWRIGHT Referring Unavailable Jelly Chery MD Primary Care Provider MD Jelly Chery Primary Care Provider [phone] MD Simone Bahena Attending Provider OJ Aguero Attending Provider [phone] MD Jelly Chery Primary Care Provider KRYSTAL Guerrier Attending Provider Risaliti, Susie Admitting Unavailable Risaliti, Susie Attending Unavailable Miri, Jelly Primary Care Unavailable Fareed, Georgie Wills Admitting Unavailable Georgie Guerrier Attending Unavailable Belia Aguero Admitting Unavailable Belia Aguero Attending Unavailable Miri, Jelly Primary Care Unavailable Taqueria, Simone Admitting Unavailable Taqueria, Simone Attending Unavailable Miri, Jelly Primary Care Unavailable Robyn, Simone Admitting Unavailable Robyn, Simone Attending Unavailable Jelly Chery Primary Care Unavailable MIRI, JELLY Primary Care [...] acid] Drug Allergy 4 Nausea, vomiting, diarrhea [facility] Penicillins (antibiotic) (7 sources) Penicillins; Translations: [Penicillins] Drug Allergy 1 vomiting, diarrhea, Nausea [facility] Unclassified (20 sources) Amoxicillin-Pot Clavulanate Propensity to adverse reactions to drug 1 Diarrhea [facility] (7 sources) Amoxicillin / Clavulanate; Translations: [amoxicillin-cl avulanate] Drug Allergy vomiting, diarrhea, rash [facility] (2 sources) Amoxicillin / Clavulanate; Translations: [Augmentin] Drug Allergy [facility] Repository (1 source) Penicillin Drug Allergy [facility] Repository (20 sources) Clavulanate Drug Allergy 3 GI intolerance [facility] (12 sources) Penicillins; Translations: [PENICILLINS] Allergy to substance 1 GI Upset, Rash [facility] (20 sources) Penicillin G sodium Allergy to substance 3 [facility] (7 sources) Amoxicillin Drug Allergy 4 vomiting, diarrhea [facility] Medications Current Medications Medication Drug Class(es) [...] 2023 10:14am take 1 capsule by mo [facility] every twenty-four hours Cymbalta 30 MG 1 [...] 07-27-2023 Fluticasone Propionate (Flon ase) 50 mcg/actuation [place],Suspension Discontinued 2 SPRAY INTRANASAL Daily January 11, [...] Antifungal Start: 09-29-2024 End: 09-29-2025 nystatin (Mycostatin) 764100 UNIT/GM powder Indications: Yeast infection Apply topically in the morning and before bedtime. 60 g 09/29/2024 09/29/2025 Active Start: 09-05-2024 End: 09-15-2024 nystatin (Mycostatin) 226414 UNIT/ML suspension Indications: Coated tongue Take 6 [...] Active Start: 10-30-2023 End: 03-10-2024 nystatin (Mycostatin) 375016 UNIT/GM powder Twice daily 10/30/2023 03/10/2024 Discontinued Start: 10-30-2023 End: 02-04-2024 Nystatin Discontinued 1 APPL IC TOPICAL Twice daily 30 7 October 30, 2023 12:00am February 04, 2024 1:27pm Start: 09-29-2023 End: 02-04-2024 Nystatin Discontinued TOPICA L September 29, 2023 12:00am February 04, 2024 1:27pm Start: 10-17-2022 Nystatin 47407 0 UNIT/GM 1 application Externally Twice a day September, Active nystatin 828785 unt/ml / triamcinolone acetonide 1 mg/ml topical [...] 23January 11, 2023 July 27, 2023 3:06pm tri065392 200 actuat albuterol 0.09 mg/actuat metered dose [...] mg/ml extended release suspension (11 sources) Uncompetitive I-rghqgi-A-aspartat e Receptor Antagonist, Sigma-1 Agonist Start: 03-03-2019 [...] Facility OB BPP W NON-STRESS on 10-08-2024 [place] [address] Ultrasound Report Signed Patient: DEVORAH SHELTON MR#: [id number] : 1995 Acct:[id number] Age/Sex: 29 / F ADM Date: 10/07/24 Loc: Attending Dr: Donovan Vora D.O. Ordering Physician: Donovan Vora D.O. Date of Service: 10/07/24 Procedure(s): US OB BPP w non-stress Accession Number(s): [id number] cc: Donovan Vora D.O.; JELLY CHERY [address] [address] Patient Name: DEVORAH SHELTON MRN: [facility]:[id number] date: 1995 Sex: F Assigned Patient Location: [facility] Current Patient Location: Accession/Order Number: [id number] Exam Date: 10/08/2024 10:48 Report Date: 10/08/2024 [...] Hernandez M.D. 10/08/2024 10:49 AM Dictation Location: [employer] Electronically authenticated by: [id number] Y Date: 10/08/2024 10:49 Dictated By: Bishnu Hernandez D.O. Signed By: 10/08/24 1052 DD/ 1049 TD/TT: Product Design Engineer: [facility] Radiology, Radiologi MD rod - 10/08/2024 [place] [address] Ultrasound Report Signed Patient: DEVORAH SHELTON MR#: [id number] : 1995 Acct:[id number] Age/Sex: 29 / F ADM Date: 10/07/24 Loc: US Attending Dr: Donovan Vora D.O. Ordering Physician: Donovan Vora D.O. Date of Service: 10/07/24 Procedure(s): US OB BPP w non-stress Accession Number(s): [id number] cc: Donovan Vora D.O.; JELLY CHERY [place] [id number] Patient Name: DEVORAH SHELTON MRN: [facility]:[id number] date: 1995 Sex: F Assigned Patient Location: [facility] Current Patient Location: Accession/Order Number: [id number] Exam Date: 10/08/2024 10:48 Report Date: 10/08/2024 [...] Hernandez M.D. 10/08/2024 10:49 AM Dictation Location: [employer] Electronically authenticated by: [id number] Y Date: 10/08/2024 10:49 Dictated By: Bishnu Hernandez D.O. Signed By: 10/08/24 1052 DD/ 1049 TD/TT: Product Design Engineer: [facility] Radiology Study observation (narrative) [facility] US OB BPP W NON-STRESS Ordered By: Radiologist Radiology on 10-08-2024 [facility] Work Phone: No Panel InformationOrdered By: Radiologist Radiology on 10-03-2024 [facility] Work Phone: No Panel Informationon 10-03 Radiology Study observation (narrative) [facility] US OB BPP W NON-STRESS on 10-03-2024 [place] [address] Ultrasound Report Signed Patient: DEVORAH SHELTON MR#: [id number] : 1995 Acct:[id number] Age/Sex: 29 / F ADM Date: 09/30/24 Loc: US Attending Dr: Donovan Vora D.O. Ordering Physician: Donvoan Vora D.O. Date of Service: 09/30/24 Procedure(s): US OB BPP w non-stress Accession Number(s): [id number] cc: Donovan Vora D.O.; JELLY CHERY [place] [address] Patient Name: DEVORAH SHELTON MRN: [id number] date: 1995 Sex: F Assigned Patient Location: US Current Patient Location: [facility] Accession/Order Number: [id number] Exam Date: 10/03/2024 09:34 Report Date: 10/03/2024 [...] Goyal M.D. 10/03/2024 9:41 AM Dictation Location: [place] [address] Electronically authenticated by: [id number] Y Date: 10/03/2024 09:41 Dictated By: Liliana Goyal M.D. Signed By: 10/03/24 0943 DD/ 0 TD/TT: Product Design Engineer: [facility] Radiology, Radiologi MD rod - 10/03/2024 [place] [address] Ultrasound Report Signed Patient: DEVORAH SHELTON MR#: [id number] : 1995 Acct:[id number] Age/Sex: 29 / F ADM Date: 09/30/24 Loc: US Attending Dr: Donovan Vora D.O. Ordering Physician: Donovan Vora D.O. Date of Service: 09/30/24 Procedure(s): US OB BPP w non-stress Accession Number(s): [id number] cc: Donovan Vora D.O.; JELLY CHERY [place] [address] Patient Name: DEVORAH SHELTON MRN: [id number] date: 1995 Sex: F Assigned Patient Location: Current Patient Location: [facility] Accession/Order Number: [id number] Exam Date: 10/03/2024 09:34 Report Date: 10/03/2024 [...] Goyal M.D. 10/03/2024 9:41 AM Dictation Location: [place] [address] Electronically authenticated by: [id number] Y Date: 10/03/2024 09:41 Dictated By: Liliana Goyal M.D. Signed By: 10/03/24942 DD/ 0 TD/TT: Product Design Engineer: [facility] 10-03-2024 [place] [address] Ultrasound Report Signed Patient: DEVORAH SHELTON MR#: [id number] : 1995 Acct:[id number] Age/Sex: 29 / F ADM Date: 09/30/24 Loc: US Attending Dr: Donovan Vora D.O. Ordering Physician: Donovan Vora D.O. Date of Service: 09/30/24 Procedure(s): US OB growth Accession Number(s): [id number] cc: Donovan Vora D.O.; JELLY CHERY [place] [phone] Patient Name: DEVORAH SHELTON MRN: [id number] date: 1995 Sex: F Assigned Patient Location: [facility] Current Patient Location: [facility] Accession/Order Number: [id number] Exam Date: 10/03/2024 09:34 Report Date: 10/03/2024 [...] Goyal M.D. 10/03/2024 9:41 AM Dictation Location: [place] [address] Electronically authenticated by: [id number] Y Date: 10/03/2024 09:41 Dictated By: Liliana Goyal M.D. Signed By: 10/03/24 0943 DD/ 0941 TD/TT: Product Design Engineer: [facility] Radiology, Radiologi MD rod - 10/03/2024 [place] [address] Ultrasound Report Signed Patient: DEVORAH SHELTON MR#: [id number] : 1995 Acct:[id number] Age/Sex: 29 / F ADM Date: 09/30/24 Loc: US Attending Dr: Donovan Vora D.O. Ordering Physician: Vielka,Donovan D.O. Date of Service: 09/30/24 Procedure(s): US OB growth Accession Number(s): [id number] cc: Donovan Vora D.O.; JELLY CHERY [address] [address] Patient Name: DEVORAH SHELTON MRN: [id number] date: 1995 Sex: F Assigned Patient Location: [facility] Current Patient Location: [facility] Accession/Order Number: [id number] Exam Date: 10/03/2024 09:34 Report Date: 10/03/2024 [...] Goyal M.D. 10/03/2024 9:41 AM Dictation Location: [place] [address] Electronically authenticated by: [id number] Y Date: 10/03/2024 09:41 Dictated By: Liliana Goyal M.D. Signed By: 10/03/2443 DD/ 0 TD/TT: Product Design Engineer: [facility] Urinalysis macro (dipstick) panel (U)on 09-29-2024 Bilirubin, UA Negative Negative - 4(70) +++ mg/dL [facility] Blood, UA Negative Negative - 50 Raúl/mcL [facility] Clarity, UA Clear [facility] Color, UA Yellow [facility] Glucose, UA Negative Negative - 2000(110) ++++ mg/dL [facility] Interpretation and review of laboratory results Normal [facility] Ketones, UA Negative Negative - 160(16) ++++ mg/dL [facility] Leukocytes, UA Negative Negative - 500+++ Zainab/mcL [facility] Nitrite, UA Negative Negative - Positive [facility] pH, UA 6 5 - 9 [facility] Protein, UA Negative Negative - 2000(20) ++++ mg/dL [facility] Spec Grav, UA 1.03 1 - 1.03 [facility] Urobilinogen, UA 0.2 0.2 - 12 mg/dL [facility] US OB BPP W NON-STRESS on 09-26-2024 [place] [address] Ultrasound Report Signed Patient: DEVORAH SHELTON MR#: [id number] : 1995 Acct:[id number] Age/Sex: 29 / F ADM Date: Loc: [facility] [address]: Donovan Vora D.O. Ordering Physician: Donovan Vora D.O. Date of Service: 09/23/24 Procedure(s): US OB BPP w non-stress Accession Number(s): [id number] cc: Donovan Vora D.O.; JELLY CHERY [place] [phone] Patient Name: DEVORAH SHELTON MRN: [id number] date: 1995 Sex: F Assigned Patient Location: [facility] Current Patient Location: [facility] Accession/Order Number: [id number] Exam Date: 09/25/2024 20:14 Report Date: 09/25/2024 20:24 At the request of: DONOVAN VORA DO Procedure: US OB BPP w non-stress Biophysical profile. Reason for exam: Decreased movement. COMPARISON: None. TECHNIQUE: Transabdominal imaging of the gravid uterus was obtained. FINDINGS: The chief technician x ray reports a BPP of 8 out of 8. MINNIE is normal at 12.5 cm. heart rate 139 bpm. US/US OB BPP w non-stress IMPRESSION: BPP 8 out of 8. Impression dictated by: José Miguel Fuentes Jr., D.O. 09/25/2024 8:24 PM Dictation Location: [place] [address] Electronically authenticated by: [id number] Y Date: 09/25/2024 20:24 Dictated By: José Miguel Fuentes M.D. Signed By: 09/26/241122 DD/ 23 TD/TT: Product Design Engineer: [facility] RadiologyKemalogsarah velasco MD - 09/26/2024 [place] [address] Ultrasound Report Signed Patient: DEVORAH SHELTON MR#: [id number] : 1995 Acct:[id number] Age/Sex: 29 / F ADM Date: Loc: [facility] Attending Dr: Donovan Vora D.O. Ordering Physician: Donovan Vora D.O. Date of Service: 09/23/24 Procedure(s): US OB BPP w non-stress Accession Number(s): [id number] cc: Donovan Vora D.O.; JELLY CHERY [place] [phone] Patient Name: DEVORAH SHELTON MRN: [facility]:[id number] date: 1995 Sex: F Assigned Patient Location: [facility] Current Patient Location: [facility] Accession/Order Number: [id number] Exam Date: 09/25/2024 20:14 Report Date: 09/25/2024 20:24 At the request of: DONOVAN VORA DO Procedure: US OB BPP w non-stress Biophysical profile. Reason for exam: Decreased movement. COMPARISON: None. TECHNIQUE: Transabdominal imaging of the gravid uterus was obtained. FINDINGS: The chief technician x ray reports a BPP of 8 out of 8. MINNIE is normal at 12.5 cm. heart rate 139 bpm. US/US OB BPP w non-stress IMPRESSION: BPP 8 out of 8. Impression dictated by: José Miguel Fuentes Jr., D.O. 09/25/2024 8:24 PM Dictation Location: [place] [address] Electronically authenticated by: [id number] Y Date: 09/25/2024 20:24 Dictated By: José Miguel Fuentes M.D. Signed By: 09/26/24 1123 DD/ 23 TD/TT: Product Design Engineer: [facility] US OB BPP W NON-STRESS Ordered By: Radiologist Radiology on 09-26-2024 [facility] Work Phone: US OB BPP W NON-STRESS on 09-25-2024 Radiology Study observation (narrative) [facility] UA (CLEAN/CATCH) GEOPHYSICAL PROSPECTOR/LIBRADO RO IF IND.on 09-23-2024 BILIRUBIN URINE Negative NEGATIVE [facility] BLOOD URINE Negative NEGATIVE [facility] Clarity (U) CLEAR CLEAR [facility] Color (U) YELLOW YELLOW [facility] GLUCOSE URINE UA Negative NEGATIVE mg/dL [facility] Interpretation and review of laboratory results Abnormal [facility] Ketones Ql (U) TRACE Abnormal NEGATIVE mg/dL [facility] Leukocyte esterase Test strip Ql (U) Negative NEGATIVE [facility] NITRITE URINE Negative NEGATIVE [facility] pH (U) 6.5 [pH] 5.0 - 9.0 [facility] PROTEIN URINE TRACE NEG/TRACE mg/dL [facility] SPECIFIC GRAVITY URINE 1.025 1.005 - 1.025 [facility] URINE MICROSCOPIC INDICATED NO [facility] UROBILINOGEN URINE 1.0 EU/dL 0.2 - 1.0 EU/dL [facility] STREP GP B CULTURE+RFLXon STREP GP B CULTURE+RFLX SEE SCANNED REPORT [facility] Urinalysis macro (dipstick) panel (U)on 09-22-2024 Bilirubin, UA Negative Negative - 4(70) +++ mg/dL [facility] Blood, UA Negative Negative - 50 Raúl/mcL [facility] Clarity, UA Clear [facility] Color, UA Yellow [facility] Glucose, UA Negative Negative - 2000(110) ++++ mg/dL [facility] Interpretation and review of laboratory results Abnormal [facility] Ketones, UA Negative Negative - 160(16) ++++ mg/dL [facility] Leukocytes, UA Trace Negative - 500+++ Zainab/mcL [facility] Nitrite, UA Negative Negative - Positive [facility] pH, UA 6 5 - 9 [facility] Protein, UA Negative Negative - 2000(20) ++++ mg/dL [facility] Spec Grav, UA 1.02 1 - 1.03 [facility] Urobilinogen, UA 0.2 0.2 - 12 mg/dL [facility] US OB FOLLOW UP TRANSABDOMIN AL [...] 3103 gm / 6 lbs, 13 oz (4654-6012 gm) [place] Normal: 2863 gm (8660-7389 gm) [place] Wt%: 74% for 26.2 wks Limited for: Growth Presentation: Cephalic Amniotic Fluid: 14.2 cm Between 5th and 95 percentile. Largest Fluid Pocket: 5.6 cm Heart Rate: 142 bpm Somatic Motion: Yes IMPRESSION: Normal growth. AC 91%. Dictated and transcribed 09/20/24/dpd This report has been electronically signed and approved by the interpreting radiologist. This report is generated using voice recognition reporting (TwoTen). On occasion, iKoacribe erroneously drops words from the report or replaces the spoken word with a similar sounding word. Please call with any questions/concerns regarding the report. Normal Not Available Comment on above: Order Comment: US OB SCAN FOR GROWTH Estimated Date of Delivery: 10/15/24 Gestational Age as of 09/15/2024: 35w5d Urinalysis macro (dipstick) panel (U)on 09-15-2024 Bilirubin, UA Negative Negative - 4(70) +++ mg/dL [facility] Blood, UA Negative Negative - 50 Raúl/mcL [facility] Healthcare Clarity, UA Clear [facility] Color, UA Yellow [facility] Glucose, UA Negative Negative - 1999(110) ++++ mg/dL [facility] Interpretation and review of laboratory results Abnormal [facility] Ketones, UA Negative Negative - 160(16) ++++ mg/dL [facility] Leukocytes, UA Negative Negative - 500+++ Zainab/mcL [facility] Nitrite, UA Negative Negative - Positive [facility] pH, UA 6 5 - 9 [facility] Protein, UA Positive Negative - 1999(20) ++++ mg/dL [facility] Comment on above: trace Spec Grav, UA 1.025 1 - 1.03 [facility] Urobilinogen, UA 0.2 0.2 - 12 mg/dL [facility] Urinalysis macro (dipstick) panel (U)on 09-08-2024 Bilirubin, UA Negative Negative - 4(70) +++ mg/dL [facility] Blood, UA Negative Negative - 50 Raúl/mcL [facility] Clarity, UA Clear [facility] Color, UA Yellow [facility] Glucose, UA Negative Negative - 1999(110) ++++ mg/dL [facility] Interpretation and review of laboratory results Normal [facility] Ketones, UA Negative Negative - 160(16) ++++ mg/dL [facility] Leukocytes, UA Negative Negative - 500+++ Zainab/mcL [facility] Nitrite, UA Negative Negative - Positive [facility] pH, UA 5.5 5 - 9 [facility] Protein, UA Negative Negative - 1999(20) ++++ mg/dL [facility] Spec Grav, UA 1.03 1 - 1.03 [facility] Urobilinogen, UA 0.2 0.2 - 12 mg/dL [facility] Glucose (Bld) [Mass/Vol]on 0 09-05-2024 Glucose [Mass/Vol] 96 mg/dL [facility] Interpretation and review of laboratory results Normal [facility] Laboratory - Microbiology an d Antimicrobial susceptibilityon 09-05-2024 SARS-CoV-2 (COVID-19) RNA CRYSTAL+probe Ql (Unsp spec) Negative Negative [facility] No Panel Informationon 09-05 Interpretation and review of laboratory results Normal [facility] INFLUENZA A Negative Negative [facility] INFLUENZA B Negative Negative [facility] Interpretation and review of laboratory results Normal [facility] S. pyogenes DNA CRYSTAL+probe No m (Unsp spec)on 09-05-2024 Interpretation and review of laboratory results Normal [facility] RESULT Negative Negative [facility] Urinalysis macro (dipstick) panel (U)on 08-25-2024 Bilirubin, UA Negative Negative - 4(70) +++ mg/dL [facility] Blood, UA Negative Negative - 50 Raúl/mcL [facility] Clarity, UA Clear [facility] Color, UA Yellow [facility] Glucose, UA Negative Negative - 2000(110) ++++ mg/dL [facility] Interpretation and review of laboratory results Normal [facility] Ketones, UA Negative Negative - 160(16) ++++ mg/dL [facility] Leukocytes, UA Negative Negative - 500+++ Zainab/mcL [facility] Nitrite, UA Negative Negative - Positive [facility] pH, UA 7 5 - 9 [facility] Protein, UA Negative Negative - 2000(20) ++++ mg/dL [facility] Spec Grav, UA 1.01 1 - 1.03 [facility] Urobilinogen, UA 0.2 0.2 - 12 mg/dL [facility] US OB FOLLOW UP TRANSABDOMIN AL [...] II, MD, PHD at 11-Aug-2024 08:43:14 AM [facility] Normal Not Available Comment on above: Order Comment: US OB SCAN FOR GROWTH Estimated Date of Delivery: 10/15/24 Gestational Age as of 07/27/2024: 28w4d Urinalysis macro (dipstick) panel (U)on 07-27-2024 Bilirubin, UA Negative Negative - 4(70) +++ mg/dL [facility] Blood, UA Negative Negative - 50 Raúl/mcL [facility] Clarity, UA Clear [facility] Color, UA Yellow [facility] Glucose, UA Negative Negative - 2000(110) ++++ mg/dL [facility] Interpretation and review of laboratory results Abnormal [facility] Ketones, UA Negative Negative - 160(16) ++++ mg/dL [facility] Leukocytes, UA Trace Negative - 500+++ Zainab/mcL [facility] Nitrite, UA Negative Negative - Positive [facility] pH, UA 6 5 - 9 [facility] Protein, UA Trace Negative - 2000(20) ++++ mg/dL [facility] Spec Grav, UA 1.025 1 - 1.03 [facility] Urobilinogen, UA 0.2 0.2 - 12 mg/dL [facility] INCOMPLETE ANATOMYon 0 3-01-2025 [place] [address] Ultrasound Report Signed Patient: DEVORAH SHELTON MR#: [id number] : 1995 Acct:[id number] Age/Sex: 29 / F ADM Date: 07/22/24 Loc: US Attending Dr: Donovan Vora D.O. Ordering Physician: Donovan Vora D.O. Date of Service: 07/22/24 Procedure(s): US OB incomplete anatomy Accession Number(s): [id number] cc: Donovan Vora D.O.; JELLY CHERY [place] [address] Patient Name: DEVORAH SHELTON MRN: [facility]:[id number] date: 1995 Sex: F Assigned Patient Location: US Current Patient Location: Accession/Order Number: [id number] Exam Date: 07/23/2024 09:13 Report Date: 07/23/2024 [...] Hawa Barfield M.D.07/23/2024 9:15 AM Dictation Location: [place] [address] Electronically authenticated by: [id number] Y Date: 07/23/2024 09:15 Dictated By: Hawa Barfield M.D. Signed By: 07/23/24917 DD/ 4 TD/TT: Product Design Engineer: [facility] Radiology, Radiologi MD rod - 07/23/[address] [address] Ultrasound Report Signed Patient: DEVORAH SHELTON MR#: [id number] : 1995 Acct:[id number] Age/Sex: 29 / F ADM Date: 07/22/24 Loc: US Attending Dr: Donovan Vora D.O. Ordering Physician: Donovan Vora D.O. Date of Service: 07/22/24 Procedure(s): US OB incomplete anatomy Accession Number(s): [id number] cc: Donovan Vora D.O.; JELLY CHERY [place] [address] Patient Name: DEVORAH SHELTON MRN: [id number] date: 1995 Sex: F Assigned Patient Location: US Current Patient Location: Accession/Order Number: [id number] Exam Date: 07/23/2024 09:13 Report Date: 07/23/2024 [...] Hawa Barfield M.D.07/23/2024 9:15 AM Dictation Location: [place] [address] Electronically authenticated by: [id number] Y Date: 07/23/2024 09:15 Dictated By: Hawa Barfield M.D. Signed By: 07/23/24917 DD/ 4 TD/TT: Product Design Engineer: [facility] Radiology Study observation (narrative) [facility] US OB INCOMPLETE ANATOMYOrde red By: Radiologist Radiology on 07-23-2024 [facility] Work Phone: Urinalysis macro (dipstick) panel (U)on 07-12-2024 Bilirubin, UA Negative Negative - 4(70) +++ mg/dL [facility] Blood, UA Negative Negative - 50 Raúl/mcL [facility] Clarity, UA Clear [facility] Color, UA Yellow [facility] Glucose, UA Negative Negative - 2000(110) ++++ mg/dL [facility] Interpretation and review of laboratory results Abnormal [facility] Ketones, UA Positive Negative - 160(16) ++++ mg/dL [facility] Comment on above: trace Leukocytes, UA Positive Negative - 500+++ Zainab/mcL [facility] Comment on above: trace Nitrite, UA Negative Negative - Positive [facility] pH, UA 6 5 - 9 [facility] Protein, UA Positive Negative - 2000(20) ++++ mg/dL [facility] Comment on above: trace Spec Grav, UA 1.03 1 - 1.03 [facility] Urobilinogen, UA 0.2 0.2 - 12 mg/dL [facility] GLUCOSE TOLERANCE 3 HOURon 0 07-04-2024 GLUCOSE TOLERANCE 3 HOUR mg/dL [facility] Comment on above: GLU FAST 92 (<95) Co l: 07/04/24 0848 GLU 1HR 173 (<180) Col: 07/04/24 0954 GLU 2HR 130 (<155) Col: 07/04/24 1053 GLU 3HR 115 (<140) Col: 07/04/24 1154 [facility] ALL CBC WITH AUTO DIFFon BASOPHILS ABSOLUTE AUTO 0 [facility] Basophils/100 WBC (Bld) 0.2 % 0.2 - 2.0 % [facility] Eosinophils/100 WBC (Bld) 0.4 % Low 0.9 - 7.0 % [facility] Erythrocyte distribution width (RBC) [Ratio] 13.2 % 11.0 - 15.0 % [facility] Hematocrit (Bld) [Volume fraction] 36.1 % 36.0 - 48.0 % [facility] Hemoglobin (Bld) [Mass/Vol] 12.1 g/dL 12.0 - 16.0 g/dL [facility] IMMATURE GRANULOCYTES ABS AUTO 0.04 High [facility] Immature granulocytes/100 WBC (Bld) 0.4 % 0.0 - 0.5 % [facility] Interpretation and review of laboratory results Abnormal [facility] LYMPHOCYTES ABSOLUTE AUTO 1.7 [facility] Lymphocytes/100 WBC (Bld) 15.1 % Low 20.5 - 60.0 % [facility] MCH (RBC) [Entitic mass] 32.4 pg 26.7 - 34.0 pg [facility] MCHC (RBC) [Mass/Vol] 33.5 g/dL 29.9 - 35.2 g/dL [facility] MCV (RBC) [Entitic vol] 96.5 fL 81.0 - 99.0 fL [facility] MONOCYTES ABSOLUTE AUTO 0.6 [facility] Monocytes/100 WBC (Bld) 5.4 % 1.7 - 12.0 % [facility] NEUTROPHILS ABSOLUTE AUTO 8.8 High [facility] Neutrophils/100 WBC (Bld) 78.5 % High 43.0 - 75.0 % [facility] Platelet mean volume (Bld) [Entitic vol] 9.5 fL 9.5 - 13.5 fL [facility] TBH EO # 0.1 [facility]H PLT 227 [facility] RBC 3.74 Low [facility] TB WBC 11.2 High [facility] BMPon 06-17-2024 Anion gap [Moles/Vol] 14 mmol/L Normal 6-16 [facility] Comment on above: Performed By: #### 2 [id number] #### [facility] [address] [place] [address] Calcium [Mass/Vol] 8.4 mg/dL Low 8.9-11.1 [facility] Comment on above: Performed By: #### 2 [id number] #### [facility] [address] [place] [address] Chloride [Moles/Vol] 104 mmol/L Normal 101-111 [facility] Comment on above: Performed By: #### 2 [id number] #### [facility] [address] [place] [address] CO2 [Moles/Vol] 20 mmol/L Low 21-31 [facility] Comment on above: Performed By: #### 2 [id number] #### [facility] [address] [place] [address] Creatinine [Mass/Vol] 0.6 mg/dL Normal 0.5-1.3 [facility] Comment on above: Performed By: #### 2 [id number] #### [facility] [address] [place] [address] Glucose [Mass/Vol] 96 mg/dL Normal 55-199 [facility] Comment on above: Performed By: #### 2 [id number] #### [facility] [address] [place] [address] Potassium [Moles/Vol] 3.5 mmol/L Normal 3.5-5.3 [facility] Comment on above: Performed By: #### 2 [id number] #### [facility] [address] [place] [address] Sodium [Moles/Vol] 134 mmol/L Low 135-145 [facility] Comment on above: Performed By: #### 2 [id number] #### [facility] [address] [place] [address] Urea nitrogen [Mass/Vol] 8 mg/dL Normal 5-21 [facility] Comment on above: Performed By: #### 2 [id number] #### [facility] [address] [place] [address] Urea nitrogen/Creatinine [Mass ratio] 13 No Units Normal 10-20 [facility] Comment on above: Performed By: #### 2 [id number] #### [facility] [address] [place] [address] ED Clinical Summaryon 2024 ED Clinical Summary ED Clinical Summary [address] [address] ED Clinical Summary Person Information Name: DEVORAH SHELTON [place] Age: 29 Years : 1995 Sex: Female Language: Chadian PCP: JELLY CHERY MD Marital Status: Single Phone: [phone] Visit Id: Visit Reason: Nausea; Body aches; [...] 06/17/2024 01:25:53 06/17/2024 01:25:53 06/17/2024 01:25:53 ADDRESS: [address] [place] [id number] PHYS DOC NOTES: MEDICAL INFORMATION: Prescriptions Given: New Medications [id number], [address], [place] [id number], [phone] ondansetron (Zofran ODT 4 mg Tab-Dis) 1 [...] Follow up: With: Address: When: Donovan VORA [facility], [address] [place] [address] , [place] [address] Business (1) In 3 days 06/20/2024 Comments: Return to the emergency room if your vomiting recurs or any new symptoms. With: Address: When: [address], [address] [place] [address] Business (1) In 3 days DIAGNOSIS: 1:Nausea and vomiting Normal [facility] ED Note-Physicianon 06-17-19 ED Note-Physician ED Note-Physician [...] and Complexity of Problems Differential Diagnosis: [] [place] Data External documents reviewed: [] My EKG [...] Nausea/Vomiting, # 12 tab(s), Refills(s) 0, Pharmacy: [id number], 157, cm, 06/16/24 22:56:00 EST, Height/Length Dosing, 97.3, kg, 06/16/24 22:56:00 EST, Weight Dosing Sodium Chloride 0.9% intravenous solution, 1,000 mL, Soln-IV, IV, Once, Stop date 06/16/24 23:27:00 EST, STAT, Start date 06/16/24 23:27:00 EST, Infuse over 61, minute(s) Basic Metabolic Panel CBC w/ Auto Diff eGFR Influenza A&B Ag Rapid COVID Antigen ([facility]) UA with Cult Rflx [...] Donovan VORA In 3 days 06/20/[address] [place] [address]- Business (1) Additional Instructions: Return to the emergency room if your vomiting recurs or any new symptoms. JELLY CHERY In 3 days [address] [facility] [place] [address]- Business (1) Additional Instructions: Patient Education Nausea [...] Current, 11/13/2018 (more content not included)... Normal [facility] Comment on above: Result Comment: Elec tronically Signed By: Kirill Long, Chichi Khoury\.br\Date and Time Signed: 06/17/24 02:11 EST ED Patient Summaryon 025 ED Patient Summary ED Patient Summary [place] [id number] Patient Discharge Instructions Person Information Name: DEVORAH SHELTON Age: 29 Years Arrival Date: 06/16/2024 22:42:49 Discharge Diagnosis: 1:Nausea and vomiting Primary Care Physician: JELLY CHERY MD Provider Information Primary Provider: Chichi Roy M.D. Advanced Biology Manager:None The exam and treatment you received in the Emergency Department were for an urgent problem and are not intended as complete care. It is important that you follow up with a doctor, nurse practitioner, or physician???s service assistant for ongoing care. If your symptoms [...] Follow-up Instructions: With: Address: When: Donovan VORA [facility], [address] [place] [address] [place] [address] Business (1) In 3 days 06/20/2024 Comments: Return to the emergency room if your vomiting recurs or any new symptoms. With: Address: When: [address], [address] [place] [address] Business (1) In 3 days In the event that this physician does not participate in your insurance network, please consult with your insurance company to find a nearby participating provider. Patient Education Materials: Nausea and Vomiting, Adult A MESSAGE TO ALL PATIENTS REGARDING OPIOIDS PRESCRIPTION OPIOIDS: WHAT YOU NEED TO KNOW Prescription opioids can be used to help relieve ewtaagxk-qh-cgwkwg pain and are often prescribed following a [...] and Drug (more content not included)... Normal [facility] Influenza A&B Agon 5 Influenzae A Ag Negative Normal Negative [facility] Comment on above: Performed By: #### 1 [id number] #### [facility] [address] [place] [address] Influenzae B Ag Negative Normal Negative [facility] Comment on above: Result Comment: Test sensitivity and specificity vary for age group, specimen type, antigen types, and prevalence of disease. Test results must be evaluated in conjunction with other clinical data available to the physician. Individuals who received nasally administered Influenza A vaccine may have positive test results up to 3 days after vaccination. Performed By: #### 1 [id number] #### [facility] [address] [place] [address] Rapid COVID Antigen ([facility])on 06-17-2024 Rapid COV Int NEG Ctl Pass Normal Fis [facility] Comment on above: Performed By: #### 2 [id number] #### [facility] [address] [place] [address] Rapid COV Int POS Ctl Pass Normal Fis [facility] Comment on above: Performed By: #### 2 [id number] #### [facility] [address] [place] [address] SARS-CoV+SARS-CoV-2 (COVID-19) Ag IA.rapid Ql (Resp) Not detected Normal Not Detected [facility] Comment on above: Result Comment: The Eventtus??? System for Rapid Detection of SARS-CoV-2 is [...] or revoked sooner. Performed By: #### 2 [id number] #### [facility] [address] [place] [address] UA with Cult Rflxon 06-17-19 25 Bilirubin Ql (U) Negative Normal Negative [facility] Comment on above: Performed By: #### 4 [id number] #### [facility] [address] [place] [address] Clarity (U) Clear Normal Clear [facility] Comment on above: Performed By: #### 4 [id number] #### [facility] [address] [place] [address] Color (U) Yellow Normal Yellow [facility] Comment on above: Result Comment: Micr oscopic readings are only performed on those samples that meet specific criteria set forth by [facility]. Performed By: #### 4 [id number] #### [facility] [address] [place] [address] Glucose Ql (U) Negative Normal Negative [facility] Comment on above: Performed By: #### 4 [id number] #### [facility] [address] [place] [address] Hemoglobin Auto test strip (U) [Mass/Vol] Negative Normal Negative [facility] Comment on above: Performed By: #### 4 [id number] #### [facility] [address] [place] [address] Ketones Auto test strip Ql (U) 2+ mg/dL Abnormal Negative [facility] Comment on above: Performed By: #### 4 [id number] #### [facility] [address] [place] [address] Leukocyte esterase Auto test strip Ql (U) Negative Normal Negative [facility] Comment on above: Performed By: #### 4 [id number] #### [facility] [address] [place] [address] Nitrite Auto test strip Ql (U) Negative Normal Negative [facility] Comment on above: Performed By: #### 4 [id number] #### [facility] [address] [place] [address] pH (U) 6.0 [pH] Invalid Interpretation Code 5.0-9.0 [facility] Comment on above: Performed By: #### 4 [id number] #### [facility] [address] [place] [address] Protein Ql (U) Trace Abnormal Negative [facility] Comment on above: Performed By: #### 4 [id number] #### [facility] [address] [place] [address] Specific gravity (U) [Rel density] 1.034 Invalid Interpretation Code 1.005-1.03 0 [facility] Comment on above: Performed By: #### 4 [id number] #### [facility] [address] [place] [address] Urobilinogen (U) [Mass/Vol] 2 mg/dL Abnormal Negative [facility] Comment on above: Performed By: #### 4 [id number] #### [facility] [address] [place] [address] eGFRon 06-17-2024 eGFR 126 mL/min/1.73 m2 Normal >=59 [facility] Comment on above: Performed By: #### 1 [id number] #### [facility] [address] [place] [address] CBC w/ Auto Diffon 5 Basophils/100 WBC (Bld) 0.4 % Normal 0.0-2.0 [facility] Comment on above: Performed By: #### 2 [id number] #### [facility] [address] [place] [address] Basophils/Leukocytes Auto (Bld) [Pure # fraction] 0.0 E9/L Normal 0.0-0.2 [facility] Comment on above: Performed By: #### 2 [id number] #### [facility] [address] [place] [address] Eosinophils (Bld) [#/Vol] 0.0 E9/L Normal 0.0-0.5 [facility] Comment on above: Performed By: #### 2 [id number] #### [facility] [address] [place] [address] Eosinophils/100 WBC (Bld) 0.2 % Normal 0.0-8.0 [facility] Comment on above: Performed By: #### 2 [id number] #### [facility] [address] [place] [address] Erythrocyte distribution width (RBC) [Ratio] 13.4 % Normal 10.9-14.2 [facility] Comment on above: Performed By: #### 2 [id number] #### [facility] [address] [place] [address] Hematocrit (Bld) [Volume fraction] 35.5 % Normal 34.0-46.0 [facility] Comment on above: Performed By: #### 2 [id number] #### [facility] [address] [place] [address] Hemoglobin (Bld) [Mass/Vol] 12.3 g/dL Normal 12.0-16.0 [facility] Comment on above: Performed By: #### 2 [id number] #### [facility] [address] [place] [address] Lymphocytes (Bld) [#/Vol] 0.9 E9/L Low 1.0-4.0 [facility] Comment on above: Performed By: #### 2 [id number] #### [facility] [address] [place] [address] Lymphocytes/100 WBC (Bld) 7.3 % Low 14.0-50.0 [facility] Comment on above: Performed By: #### 2 [id number] #### [facility] [address] [place] [address] MCH (RBC) [Entitic mass] 32.6 pg Normal 27.0-34.0 [facility] Comment on above: Performed By: #### 2 [id number] #### [facility] [address] [place] [address] MCHC (RBC) [Mass/Vol] 34.7 g/dL Normal 31.4-36.0 [facility] Comment on above: Performed By: #### 2 [id number] #### [facility] [address] [place] [address] MCV (RBC) [Entitic vol] 93.9 fL Normal 80.0-100.0 [facility] Comment on above: Performed By: #### 2 [id number] #### [facility] [address] [place] [address] Monocytes (Bld) [#/Vol] 0.7 E9/L Normal 0.2-1.0 [facility] Comment on above: Performed By: #### 2 [id number] #### [facility] [address] [place] [address] Neutrophils (Bld) [#/Vol] 11.4 E9/L High 2.0-7.5 [facility] Comment on above: Performed By: #### 2 [id number] #### [facility] [address] [place] [address] Neutrophils/100 WBC (Bld) 87.0 % High 36.0-75.0 [facility] Comment on above: Performed By: #### 2 [id number] #### [facility] [address] [place] [address] Platelet mean volume (Bld) [Entitic vol] 7.6 fL Normal 6.4-10.8 [facility] Comment on above: Performed By: #### 2 [id number] #### [facility] [address] [place] [address] Platelets (Bld) [#/Vol] 223.0 E9/L Normal 150.0-500. 0 [facility] Comment on above: Performed By: #### 2 [id number] #### [facility] [address] [place] [address] RBC (Bld) [#/Vol] 3.8 E12/L Low 4.3-5.9 [facility] Comment on above: Performed By: #### 2 [id number] #### [facility] [address] [place] [address] WBC corrected for nucl RBC Auto (Bld) [#/Vol] 13.0 E9/L High 4.0-11.0 [facility] Comment on above: Performed By: #### 2 [id number] #### [facility] [address] [place] [address] UA with Cult Rflxon 06-16-19 Type of Urine collection method Clean Catch Normal [facility] Comment on above: Performed By: #### 4 [id number] #### [facility] [address] [place] [address] US for pregnancyon TITLE OF EXAM: OB [...] signed and approved by the interpreting radiologist. [facility] US for pregnancyOrdered By: Miguel Gonzalez on 06-15-2024 [facility] Work Phone: US OB LIMITED 1+ FETUSESon [...] US for pregnancyon Radiology Study observation (narrative) [facility] Urinalysis macro (dipstick) panel (U)on 06-09-2024 Bilirubin, UA Negative Negative - 4(70) +++ mg/dL [facility] Blood, UA Negative Negative - 50 Raúl/mcL [facility] Clarity, UA Clear [facility] Color, UA Yellow [facility] Glucose, UA Negative Negative - 2000(110) ++++ mg/dL [facility] Interpretation and review of laboratory results Abnormal [facility] Ketones, UA Negative Negative - 160(16) ++++ mg/dL [facility] Leukocytes, UA Trace Negative - 500+++ Zainab/mcL [facility] Nitrite, UA Negative Negative - Positive [facility] pH, UA 7 5 - 9 [facility] Protein, UA Trace Negative - 2000(20) ++++ mg/dL [facility] Spec Grav, UA 1.025 1 - 1.03 [facility] Urobilinogen, UA 0.2 0.2 - 12 mg/dL [facility] US OB 14+ WEEKS ANATOMY SCAN [...] RECURRENT VAGINITIS (HTRX)on 05-11-2024 ATOPOBIUM VAGINAE 0 [facility] ATOPOBIUM VAGINAE Not detected [facility] BVAB 2,3 (BACTERIAL VAGINOSIS ASSOCIATED BACTERIA 2, 3); MOBILUNCUS SPP 0 [facility] BVAB 2,3 (BACTERIAL VAGINOSIS ASSOCIATED BACTERIA 2, 3); MOBILUNCUS SPP Not detected [facility] ZABRINA ALBICANS, PARAPSILOSIS, TROPICALIS 0 [facility] ZABRINA ALBICANS, PARAPSILOSIS, TROPICALIS Not detected [facility] ZABRINA GLABRATA 0 [facility] ZABRINA GLABRATA Not detected [facility] ZABRINA KRUSEI 0 [facility] ZABRINA KRUSEI Not detected [facility] CHLAMYDIA TRACHOMATIS 0 [facility] CHLAMYDIA TRACHOMATIS Not detected N [facility] GARDNERELLA VAGINALIS 0 [facility] GARDNERELLA VAGINALIS Not detected N [facility] Interpretation and review of laboratory results Abnormal [facility] MEGASPHAERA (TYPES 1, 2) 29.944 Abnormal [facility] MEGASPHAERA (TYPES 1, 2) Detected Abnormal [facility] MYCOPLASMA GENITALIUM 0 [facility] MYCOPLASMA GENITALIUM Not detected N [facility] NEISSERIA GONORRHOEAE 0 [facility] NEISSERIA GONORRHOEAE Not detected N [facility] TET B, TET M 25.811 Abnormal [facility] TET B, TET M Detected Abnormal [facility] TRICHOMONAS VAGINALIS 0 [facility] TRICHOMONAS VAGINALIS Not detected N [facility] Urinalysis macro (dipstick) panel (U)on 05-10-2024 Bilirubin, UA Negative Negative - 4(70) +++ mg/dL [facility] Blood, UA Negative Negative - 50 Raúl/mcL [facility] Clarity, UA Clear [facility] Color, UA Yellow [facility] Glucose, UA Negative Negative - 1999(110) ++++ mg/dL [facility] Interpretation and review of laboratory results Abnormal [facility] Ketones, UA Positive Negative - 160(16) ++++ mg/dL [facility] Comment on above: 15 Leukocytes, UA Trace Negative - 500+++ Zainab/mcL [facility] Nitrite, UA Negative Negative - Positive [facility] pH, UA 6 5 - 9 [facility] Protein, UA Trace Negative - 1999(20) ++++ mg/dL [facility] Spec Grav, UA 1.03 1 - 1.03 [facility] Urobilinogen, UA 0.2 0.2 - 12 mg/dL [facility] S. pyogenes DNA CRYSTAL+probe No m (Unsp spec)on 04-25-2024 Interpretation and review of laboratory results Abnormal [facility] RESULT Positive Negative [facility] Urinalysis macro (dipstick) panel (U)on 04-11-2024 Bilirubin, UA Negative Negative - 4(70) +++ mg/dL [facility] Blood, UA Negative Negative - 50 Raúl/mcL [facility] Clarity, UA Clear [facility] Color, UA Yellow [facility] Glucose, UA Negative Negative - 1999(110) ++++ mg/dL [facility] Interpretation and review of laboratory results Normal [facility] Ketones, UA Negative Negative - 160(16) ++++ mg/dL [facility] Leukocytes, UA Negative Negative - 500+++ Zainab/mcL [facility] Nitrite, UA Negative Negative - Positive [facility] pH, UA 6 5 - 9 [facility] Protein, UA Negative Negative - 1999(20) ++++ mg/dL [facility] Spec Grav, UA 1.025 1 - 1.03 [facility] Urobilinogen, UA 0.2 0.2 - 12 mg/dL [facility] ALL RUBELLA IGG ABon 024 RUBELLA ANTIBODIES, IGG 6.50 Immune >0.99 index [facility] Comment on above: Non-immune <0.90 Equivocal 0.90 - 0.99 Immune >0.99 Performed at: [facility] [id number] [employer]: Myron Milton PhD, Phone: [phone] HBSAG SCREENon 04-05-2024 HBSAG SCREEN Negative Negative [facility] Comment on above: Performed at: [address] [id number] [employer]: Myron Milton PhD, Phone: [phone] HCV ANTIBODY RFX TO [facility] 04-05-2024 HCV AB Non-Reactive Non Reactive [facility] INTERPRETATION: Comment . [facility] Comment on above: Not infected with HC V unless early or acute infection is suspected (which may be delayed in an immunocompromised individual), or other evidence exists to indicate HCV infection. HIV AB/P24 AG WITH REFLEXon 04-05-2024 HIV AB/P24 AG SCREEN Non-Reactive Non Reactive [facility] Comment on above: HIV-1/HIV-2 antibodi es and HIV-1 p24 antigen were NOT detected. There is no laboratory evidence of HIV infection. HIV Negative Performed at: [address] [id number] [employer]: Myron Milton PhD, Phone: [phone] No Panel Informationon 04-05 [facility] RAPID PLASMA REAGIN, QUANTon 04-05-2024 RAPID PLASMA REAGIN, QUANT Non-Reactive NonRea<1:1 titer [facility] Comment on above: Please Note: This te st does not meet current guidelines for screening and diagnosis of syphilis. This test is intended for following treatment response in patients being treated for syphilis infection. To screen for syphilis infection, a reflex cascade that includes both RPR and a treponema-specific assay should be utilized, such as Treponema pallidum (Syphilis) Screening [place] (891706) or Rapid Plasma Reagin (RPR) Test With Reflex to Quantitative RPR and Confirmatory Treponema pallidum Antibodies (639952). Performed at: [facility] [employer] [id number] Rest[employer] Silversmith: Myron Milton PhD, Phone: [phone] URINE CULTURE, ROUTINEon Bacteria identified Cx Nom (U) Urine Culture, Routine [facility] Bacteria identified Cx Nom (U) Mixed urogenital lenka [facility] Bacteria identified Cx Nom (U) 10,000-25,000 colony forming units per mL [facility] Bacteria identified Cx Nom (U) Performed at: - [facility] B[facility] identified Cx Nom (U) [address] [place], [place] [id number] [facility] Healthcare Bacteria identified Cx Nom (U) [employer]: Myron Milton PhD, Phone: [phone] [facility] ALL CBC WITH AUTO DIFFon BASOPHILS ABSOLUTE AUTO 0 [facility] Basophils/100 WBC (Bld) 0.2 % 0.2 - 2.0 % [facility] Eosinophils/100 WBC (Bld) 0.6 % Low 0.9 - 7.0 % [facility] Erythrocyte distribution width (RBC) [Ratio] 12.6 % 11.0 - 15.0 % [facility] Hematocrit (Bld) [Volume fraction] 38.4 % 36.0 - 48.0 % [facility] Hemoglobin (Bld) [Mass/Vol] 12.9 g/dL 12.0 - 16.0 g/dL [facility] IMMATURE GRANULOCYTES ABS AUTO 0.03 [facility] Immature granulocytes/100 WBC (Bld) 0.3 % 0.0 - 0.5 % [facility] Interpretation and review of laboratory results Abnormal [facility] LYMPHOCYTES ABSOLUTE AUTO 1.8 [facility] Lymphocytes/100 WBC (Bld) 19.8 % Low 20.5 - 60.0 % [facility] MCH (RBC) [Entitic mass] 31.9 pg 26.7 - 34.0 pg [facility] MCHC (RBC) [Mass/Vol] 33.6 g/dL 29.9 - 35.2 g/dL [facility] MCV (RBC) [Entitic vol] 94.8 fL 81.0 - 99.0 fL [facility] MONOCYTES ABSOLUTE AUTO 0.6 [facility] Monocytes/100 WBC (Bld) 6.9 % 1.7 - 12.0 % [facility] NEUTROPHILS ABSOLUTE AUTO 6.7 High [facility] Neutrophils/100 WBC (Bld) 72.2 % 43.0 - 75.0 % [facility] Platelet mean volume (Bld) [Entitic vol] 9.4 fL Low 9.5 - 13.5 fL [facility]H EO # 0.1 [facility] PLT 252 [facility] RBC 4.05 Low [facility] WBC 9.3 [facility] ALL TYPE AND SCREENon 2023 ABO and Rh group Nom (d) Blood group O Rh(D) positive [facility] HEMOGLOBIN A1Con 024 Glucose [Mass/Vol] 91 mg/dL [facility] HbA1c (Bld) [Mass fraction] 4.8 % 4.5 - 6.2 % [facility] Comment on above: ADA RECOMMENDED LIMI T 4.0 - 6.0 ADA THERAPEUTIC TARGET < 7.0 ACTION SUGGESTED > 7.0 [facility] DRUG SCREEN RAPID (URINE )on 04-04-2024 AMPHETAMINE SCREEN URINE Negative NEGATIVE [facility] BARBITURATES SCREEN URINE Negative NEGATIVE [facility] BENZODIAZEPINES SCREEN URINE Negative NEGATIVE [facility] BUPRENORPHINE SCREEN URINE Negative NEGATIVE [facility] Comment on above: DRUG CLASS TEST [...] 300 ng/mL CANNABINOID SCREEN URINE Negative NEGATIVE [facility] COCAINE SCREEN URINE Negative NEGATIVE [facility] METHADONE SCREEN URINE Negative NEGATIVE NO [facility] METHAMPHETAMINES SCREEN URINE Negative NEGATIVE [facility] OPIATE SCREEN URINE Negative NEGATIVE [facility] OXYCODONE SCREEN URINE Negative NEGATIVE NO [facility] PHENCYCLIDINE SCREEN URINE Negative NEGATIVE [facility] TRICYCLIC ANTIDEPRESSANT URINE Negative NEGATIVE [facility] XR FOREARM 2 VIEWS RIGHTon 1 [...] and symmetry. No ataxia with finger-nose or opux-mo-ppdz. Intact sensation of bilateral upper and lower [...] JELLY CHERY In 3 days 03/27/[address] [address] [address] [place] [phone] Business (1) Additional Instructions: Patient Education Wrist Sprain, Adult Attestation Patient seen and evaluated by the physician service assistant. Attending physician was present in the emergency department and supervised care. This visit was performed by both the physician and an APC. I performed all aspects of the MDM as documented. This report was transcribed using voice recognition software. (more content not included)... Normal [facility] Comment on above: Result Comment: [...] mGy = na DAP = na Normal [facility] ED Clinical Summaryon 2023 ED Clinical Summary ED Clinical Summary [address] [address] ED Clinical Summary Person Information Name: DEVORAH SHELTON [place] Age: 29 Years : 1995 Sex: Female Language: Chadian PCP: JELLY CHERY MD Marital Status: Single Phone: [phone] Visit Id: Visit Reason: Facial abrasion, minor; [...] 03/24/2024 22:38:59 03/24/2024 22:38:59 03/24/2024 22:38:59 ADDRESS: [address] [place] [phone] PHYS DOC NOTES: MEDICAL INFORMATION: Prescriptions Given: Medications to Continue with No Changes Other Medications cyclobenzaprine By Mouth. ethinyl estradiol-norgestimate (Sprintec) 1 Tablets By Mouth every day. ibuprofen meloxicam (Mobic) By Mouth every day. omeprazole By Mouth every day. venlafaxine By Mouth. PATIENT EDUCATION INFORMATION: Instructions: Wrist Sprain, Adult Follow up: With: Address: When: [address], [address] [place] [address] Business (1) In 3 days 03/27/2024 DIAGNOSIS: Accidental fall; Facial abrasion; Right wrist sprain Normal [facility] ED Patient Summaryon 024 ED Patient Summary ED Patient Summary [address] [address] Patient Discharge Instructions Person Information Name: DEVORAH SHELTON Age: 29 Years Arrival Date: 03/24/2024 18:45:11 Discharge Diagnosis: Accidental fall; Facial abrasion; Right wrist sprain Primary Care Physician: JELLY CHERY MD Provider Information Primary Provider: Luther Ventura DO Advanced Biology Manager:Kp Kamara PA-C The exam and treatment you received in the Emergency Department were for an urgent problem and are not intended as complete care. It is important that you follow up with a doctor, nurse practitioner, or physician???s service assistant for ongoing care. If your symptoms become worse or you do not improve as expected and you are unable to reach your usual health care provider, you should return to the Emergency Department. We are available 24 hours a day. DEVORAH SHELTON has been given the following list of patient education materials, prescriptions and follow-up instructions: Follow-up Instructions: With: Address: When: JELLY [address], [address] [place] [address] Business (1) In 3 days 03/27/2024 In the event that this physician does not participate in your insurance network, please consult with your insurance company to find a nearby participating provider. Patient Education Materials: Wrist Sprain, Adult A MESSAGE TO ALL PATIENTS REGARDING OPIOIDS PRESCRIPTION OPIOIDS: WHAT YOU NEED TO KNOW Prescription opioids can be used to help relieve uenmbzzp-xl-xszara pain and are often prescribed following a [...] with calvin (more content not included)... Normal [facility] HCG ( test) Ql (U)o n 03-10-2024 Interpretation and review of laboratory results Abnormal [facility] Preg Test, Ur Positive [facility] Urinalysis macro (dipstick) panel (U)on 03-10-2024 Bilirubin, UA Positive Negative - 4(70) +++ mg/dL [facility] Comment on above: small Blood, UA Negative Negative - 50 Raúl/mcL [facility] Clarity, UA Clear [facility] Color, UA Yellow [facility] Glucose, UA Negative Negative - 2000(110) ++++ mg/dL [facility] Interpretation and review of laboratory results Abnormal [facility] Ketones, UA Positive Negative - 160(16) ++++ mg/dL [facility] Comment on above: 40 Leukocytes, UA Negative Negative - 500+++ Zainab/mcL [facility] Nitrite, UA Negative Negative - Positive [facility] pH, UA 6.5 5 - 9 [facility] Protein, UA Negative Negative - 1999(20) ++++ mg/dL [facility] Spec Grav, UA 1.025 1 - 1.03 [facility] Urobilinogen, UA 0.2 0.2 - 12 mg/dL [facility] hCG, quantitative, on 02-17-2024 HCG.intact+Beta subunit Qn 87 mIU/mL [facility] Comment on above: Female (Non- ) 0 - 5 (Postmenopausal) 0 - 8 Female () Weeks of Gestation 3 6 - 71 4 10 - 750 5 386 - 9124 6 788 - 76873 7 [phone] -[phone] 8 17802 -087004 9 [phone] -[phone] 10 50701 -098178 12 83773 -303874 14 75707 - 44549 15 36820 - 17681 16 6766 - 53752 17 6130 - 06445 18 7080 - 03605 Juan Luis ECLIA methodology Performed at: [address] [place] [address] [employer]: Myron Milton PhD, Phone: [phone] Specimen Comment: A courtesy copy of this report has been sent to [phone] [facility] XR Hand 3+ Views Lefton 12-24 [...] mGy = na DAP = na Normal [facility] ED Clinical Summaryon 2023 ED Clinical Summary ED Clinical Summary [address] [address] ED Clinical Summary Person Information Name: DEVORAH SHEL[place] Age: 28 Years : 1995 Sex: Female Language: Chadian PCP: JELLY CHERY MD Marital Status: Single Phone: [phone] Visit Id: Visit Reason: Finger injury - [...] 01/15/2024 22:46:45 01/15/2024 22:46:45 01/15/2024 22:46:45 ADDRESS: [address] [place] [phone] PHYS DOC NOTES: MEDICAL INFORMATION: Prescriptions Given: Medications to Continue with No Changes Other Medications cyclobenzaprine By Mouth. ethinyl estradiol-norgestimate (Sprintec) 1 Tablets By Mouth every day. ibuprofen meloxicam (Mobic) By Mouth every day. omeprazole By Mouth every day. venlafaxine By Mouth. PATIENT EDUCATION INFORMATION: Instructions: Musculoskeletal Pain Follow up: With: Address: When: [address], [address] [place] [phone] Business (1) In 3 days 01/18/2024 Comments: To schedule follow-up appointment with your family physician if symptoms not improve in the next 2 to 3 days. Alternate Tylenol, ibuprofen, and ice as needed for pain management. Return to the ED with any worsening symptoms DIAGNOSIS: Hand pain, left Normal [facility] ED Note-Physicianon 01-15-20 ED Note-Physician ED Note-Physician [...] CHERY In 3 days 01/18/2024 EDT [address] [facility] [address] [place] [address]- Business (1) Additional Instructions: To schedule follow-up appointment with your family physician if symptoms not improve in the next 2 to 3 days. Alternate Tylenol, ibuprofen, and ice as needed for pain management. Return to the ED with any worsening symptoms Patient Education Musculoskeletal Pain Attestation Patient seen and evaluated by the physician service assistant. Attending physician was present in the emergency department and supervised care. This visit was performed by both the physician and an APC. I performed all aspects of the MDM as documented. This report was transcribed using voice recognition software. Every effort was made to ensure accuracy, however, inadvertently computerized accounting machine operator mistakes may be present. Appropriate healthcare PPE [...] Former sm (more content not included)... Normal [facility] Comment on above: Result Comment: Elec tronically Signed By: Margot MCWILLIAMS, Whitney Luu\.br\Date and Time Signed: 01/15/24 22:43 EDT\.br\Electronically Co-Signed By: Roman Syed DO\.br\Date and Time Co-Signed: 01/15/24 23:00 EDT ED Patient Summaryon 024 ED Patient Summary ED Patient Summary [place] [id number] Patient Discharge Instructions Person Information Name: DEVORAH SHELTON Age: 28 Years Arrival Date: 01/15/2024 21:22:33 Discharge Diagnosis: Hand pain, left Primary Care Physician: JELLY CHERY MD Provider Information Primary Provider: Roman Syed DO Advanced Biology Manager:Whitney Frost PA-C The exam and treatment you received in the Emergency Department were for an urgent problem and are not intended as complete care. It is important that you follow up with a doctor, nurse practitioner, or physician?s service assistant for ongoing care. If your symptoms become worse or you do not improve as expected and you are unable to reach your usual health care provider, you should return to the Emergency Department. We are available 24 hours a day. DEVORAH SHELTON has been given the following list of patient education materials, prescriptions and follow-up instructions: Follow-up Instructions: With: Address: When: JELLY [address], [address] [place] [address] Business (1) In 3 days [...] opioids can be used to help relieve nyoiezci-uk-jrarha pain and are often prescribed following a [...] Visit ww (more content not included)... Normal [facility] Image-guided pap and hpv mrn a e6/e7 reflex genotypes 16, 18/45on 01-14-2024 Named Account Executive Cyto stain Nom (Cvx/Vag) [ID] Comment [facility] Comment on above: Piotr Mckeon totechnologist (ASCP) Cytology report Cyto stain Doc (Cvx/Vag) Comment [facility] Comment on above: NEGATIVE FOR INTRAEP ITHELIAL LESION OR MALIGNANCY. Cytology report Cyto stain.thin prep Doc (Cvx/Vag) Comment [facility] Comment on above: This liquid based Th inPrep(R) pap test was screened with the use of an image guided system. Diagnosis ICD code [Identifier] Comment [facility] Comment on above: Z12.4 HPV 16+18+31+33+35+39+45+5 1+52+56+58+59+66+68 DNA Probe+sig amp Ql (Cvx) Negative Negative [facility] Comment on above: This nucleic acid am plification test detects fourteen high- risk HPV types (16,18,31,33,35,39,45,51,52,56,58,59,66,68) without differentiation. HPV Genotype Reflex Comment [facility] Comment on above: Criteria not met, HP V Genotype not performed. Microscopic observation Other stain Nom (Unsp spec) . [facility] Note: Comment [facility] Comment on above: The Pap smear is a s creening test designed to aid in the detection of premalignant and malignant conditions of the uterine cervix. It is not a diagnostic procedure and should not be used as the sole means of detecting cervical cancer. Both false-positive and false-negative reports do occur. Statement of adequacy Cyto stain (Cvx/Vag) [Interp] Comment [facility] Comment on above: Satisfactory for saniya luation. Endocervical and/or squamous metaplastic cells (endocervical component) are present. Performed at: 01 - [address] [place] [id number] [employer]: Moon Tan MD, Phone: [phone] Performed at: 02 - [facility] [place], [place] [id number] [employer]: Moon Tan MD, Phone: [phone] Specimen Comment: Source.............Cervix Specimen Comment: LMP / Prev Treat...[id number] Specimen Comment: No. of containers..01 ThinPrep [facility] Cervical or vaginal smear or scraping studyOrdered By: Teresa Weber on 01-11-2024 [facility] GENITAL CULTUREon 01-03-2024 GENITAL CULTURE MICROBIOLOGY REPORT [facility], [address] [place] [address], [place], [address] PATIENT: DEVORAH SHELTON LOCATION: : 1995 AGE: 28 SEX: F ADM: 01/03/24 Att. Physician: JELLY CHERY Order Id: [id number] Req. Physician: ALPA PORTER Source: vagina Site: [...] MICROSCOPICon 024 BILIRUBIN, URINE Negative Normal NEGATIVE [facility] Comment on above: Performed By: #### W UA #### [facility] [address] [place] [address] CHARACTER Clear Normal CLEAR-SL CLOUD [facility] Comment on above: Performed By: #### W UA #### [facility] [address] [place] [address] [place] [address] Color (U) Yellow Normal STRAW-YELL OW [facility] Comment on above: Performed By: #### W UA #### [facility] [address] [place] [address] [place] [address] Glucose Ql (U) Negative Normal NEGATIVE [facility] Comment on above: Performed By: #### W UA #### [facility] [address] [place] [address] Hemoglobin Ql (U) Negative Normal NEGATIVE [facility] Comment on above: Performed By: #### W UA #### [facility] [address] [place] [address] [place] [address] Ketones Ql (U) Negative Normal NEGATIVE [facility] Comment on above: Performed By: #### W UA #### [facility] [address] [place] [address] LEUKOCYTES Negative Normal NEGATIVE [facility] Comment on above: Performed By: #### W UA #### [facility] [address] [place] [address] [place] [address] Nitrite Ql (U) Negative Normal NEGATIVE [facility] Comment on above: Performed By: #### W UA #### [facility] [address] [place] [address] [place] [address] pH (U) 7.00 [pH] Normal 5.0-9.0 [facility] Comment on above: Performed By: #### W UA #### [facility] [address] [place] [address] [place] [address] Protein Ql (U) Negative Normal NEGATIVE [facility] Comment on above: Performed By: #### W UA #### [facility] [address] [place] [address] Specific gravity (U) [Rel density] 1.015 Normal 1.002-1.03 0 [facility] Comment on above: Performed By: #### W UA #### [facility] [address] [place] [address] Urobilinogen Qn (U) 0.20 {James'U}/dL Normal 0.2-1.0 [facility] Comment on above: Performed By: #### W UA #### [facility] [address] [place] [id number] Laboratory - Chemistry and C hemistry - challengeon 11-18-2023 Bilirubin Ql (U) Negative [facility] Glucose (U) [Mass/Vol] Negative [facility] Ketones Ql (U) Positive [facility] pH (U) 6.0 [pH] [facility] Specific gravity (U) [Rel density] 1.010 [facility] Urobilinogen (U) [Mass/Vol] 0.2 mg/dL [facility] Laboratory - Microbiology an d Antimicrobial susceptibilityOrdered By: Georgie Guerrier on 11-18-2023 N. gonorrhoeae DNA CRYSTAL+probe Ql (Unsp spec) Negative Negative [facility] Comment on above: Performed at: =[address] [id number] Director: Moon Tan MD, Phone: [phone] Laboratory - Specimen inform ationon 11-18-2023 Appearance (U) clear [facility] Color (U) paleyellow [facility] Laboratory - Urinalysison Leukocyte esterase Test strip Ql (U) Negative [facility] Nitrite Ql (U) Negative [facility] Protein Ql (U) Positive [facility] No Panel Informationon 11-17 Urine Occult Blood Negative [facility] No Panel InformationOrdered By: Georgie Guerrier on 11-18-2023 Zabrina albicans (CRYSTAL) Negative Negative [facility] Comment on above: This test was develo ped and its performance characteristicsdetermined by [facility]. It has not been cleared orapproved by the Food and Drug Administration. Zabrina glabrata (CRYSTAL) Negative Negative [facility] Comment on above: This test was develo ped and its performance characteristicsdetermined by [facility]. It has not been cleared orapproved by the Food and Drug Administration. Chlamydia trachomatis (CRYSTAL) (LAB) Negative Negative [facility] Trichomonas vaginalis (CRYSTAL) Negative Negative [facility] Urine Cultureon 11-18-2023 Bacteria identified Cx Nom (U) 75,000 colonies/ml mixed bacterial skin contaminants 2 Days PERFORMED BY: [place] [address] PATHOLOGIST LITHOGRAPHING MACHINE OPERATOR NAINA NEWMAN M.D. Normal [facility] Comment on above: Performed By: #### V AGINITIS+ #### [facility] , #### CUU #### [address] Urine culture routineOrdered By: Georgie Guerrier on 11-18-2023 Bacteria identified Cx Nom (U) 2 Days [facility] Vaginal fluid Atopobium vagi holley DNA detection by probe and target amplification methoOrdered By: Georgie Guerrier on 11-18-2023 A. vaginae DNA CRYSTAL+probe Ql (Vag fld) Low - 0 Score . [facility] Comment on above: This test was develo ped and its performance characteristicsdetermined by [facility]. It has not been cleared orapproved by the Food and Drug Administration. Vaginal fluid Megasphaera sp ecies type 1 DNA detection by probe and target amplificatOrdered By: Georgie Guerrier on 11-18-2023 Megasphaera sp type 1 DNA CRYSTAL+probe Ql (Vag fld) Low - 0 Score . [facility] Comment on above: This test was develo ped and its performance characteristicsdetermined by [facility]. It has not been cleared orapproved by [...] (Vag fld) Low - 0 Score . [facility] Comment on above: This test was [...] AGINITIS+ #### [facility] , #### [facility] #### [address] BVAB2 Low - 0 Normal . [facility] Comment on above: Result Comment: This test was developed and its performance characteristics determined by [facility]. It has not been cleared or approved by the Food and Drug Administration. Performed By: #### V AGINITIS+ #### [facility] , #### CUU #### [place] [address] [place] Zabrina Albicans, CRYSTAL Negative Normal Negative [facility] Comment on above: Result Comment: This test was developed and its performance characteristics determined by [facility]. It has not been cleared or approved by the Food and Drug Administration. Performed By: #### V AGINITIS+ #### [facility] , #### CUU #### [place] [address] [place] Zabrina Glabrata, CRYSTAL Negative Normal Negative [facility] Comment on above: Result Comment: This test was developed and its performance characteristics determined by [facility]. It has not been cleared or approved by the Food and Drug Administration. PERFORMED BY: [place] [address] PATHOLOGIST LITHOGRAPHING MACHINE OPERATOR NAINA NEWMAN M.D. Performed By: #### V AGINITIS+ #### [facility] , #### [facility] #### [address] Chlamydia Trachomotis, CRYSTAL Negative Normal Negative [facility] Comment on above: Performed By: #### V AGINITIS+ #### [facility] , #### [facility] #### [address] Megasphaera Low - 0 Normal . [facility] Comment on above: Result [...] AGINITIS+ #### [facility] , #### CUU #### [address] Neisseria Gonorrhoeae, CRYSTAL Negative Normal Negative [facility] Comment on above: Result Comment: Perf ormed at: =G - [facility] [address] [id number] [employer] Sil[employer]mith: Moon Tan MD, Phone: [phone] Performed By: #### V AGINITIS+ #### [facility] , #### CUU #### [address] Tric Vag CRYSTAL Negative Normal Negative [facility] Comment on above: Performed By: #### V AGINITIS+ #### [facility] , #### CUU #### [address] XR hand RT min 3V*on 024 XR hand RT min 3V* [facility] [address] [place] [address] [place] [address] XRay Report Signed Patient: Devorah Shelton MR#: [id number] : 1995 Acct:[id number] Age/Sex: 28 / F ADM Date: 09/29/23 Loc: [id number] Room: Type: [facility] Attending Dr: Belia Aguero PA-C Copies to: [...] Liliana Goyal M.D.09/29/2023 11:30 AM Dictation Location: [place] [address] Transcribed By: [facility] 09/29/23 1130 Dictated By: Liliana Goyal MD 09/29/23 1128 Signed By: 09/29/23 1130 Normal [facility] Automated basophil %Ordered By: Simone Bahena on 07-27-2023 Basophils/100 WBC (Bld) 0.5 % Normal . [facility] Comment on above: Performed By: #### C BC, CRP, ESR #### [address] Automated basophil countOrde red By: Simone Bahena on 07-27-2023 Basophils (Bld) [#/Vol] 0.0 10*3/uL Normal 0.0-0.2 [facility] Comment on above: Performed By: #### C BC, CRP, ESR #### [address] Automated blood monocyte cou ntOrdered By: Simone Bahena on 07-27-2023 Monocytes (Bld) [#/Vol] 0.8 10*3/uL Normal 0.0-0.8 [facility] Comment on above: Performed By: #### C BC, CRP, ESR #### [address] Automated eosinophil %Ordere d By: Simone Bahena on 07-27-2023 Eosinophils/100 WBC (Bld) 1.0 % Normal . [facility] Comment on above: Performed By: #### C BC, CRP, ESR #### [address] Automated eosinophil countOr dered By: Simone Bahena on 07-27-2023 Eosinophils (Bld) [#/Vol] 0.1 10*3/uL Normal 0.0-0.45 [facility] Comment on above: Performed By: #### C BC, CRP, ESR #### [address] Automated monocyte %Ordered By: Simone Bahena on 07-27-2023 Monocytes/100 WBC (Bld) 8.2 % Normal . [facility] Comment on above: Performed By: #### C BC, CRP, ESR #### [address] Automated neutrophil %Ordere d By: Simone Bahena on 07-27-2023 Neutrophils/100 WBC (Bld) 62.4 % Normal . [facility] Comment on above: Performed By: #### C BC, CRP, ESR #### [address] C reactive protein [Mass/vol ume] in Serum or PlasmaOrdered By: Simone Bahena on 07-27-2023 CRP [Mass/Vol] 1.7 mg/dL 0.0-0.5 [facility] C-Reactive Proteinon 024 C-Reactive Protein 1.7 mg/dL High 0.0-0.5 [facility] Comment on above: Result Comment: PERF ORMED BY: [place] [address] PATHOLOGIST LITHOGRAPHING MACHINE OPERATOR NAINA NEWMAN M.D. Performed By: #### C BC, CRP, ESR #### [address] Complete Blood Count Auto Di ffon 07-27-2023 Mean Corpuscular HGB Conc 34.0 g/dL Normal 32.0-35.0 [facility] Comment on above: Performed By: #### C BC, CRP, ESR #### [address] NRBC% 0.1 /100{WBC} Normal 0-0.5 [facility] Comment on above: Performed By: #### C BC, CRP, ESR #### [address] Erythrocyte Sedimentation Ra aishwarya 07-27-2023 ESR (Bld) [Velocity] 14 mm/h Normal 0-19 [facility] Comment on above: Result Comment: PERF ORMED BY: [place] [address] PATHOLOGIST LITHOGRAPHING MACHINE OPERATOR NAINA NEWMAN M.D. Performed By: #### C BC, CRP, ESR #### [address] Erythrocyte distribution wid th [Ratio] by Automated countOrdered By: Simone Bahena on 07-27-2023 Erythrocyte distribution width (RBC) [Ratio] 12.8 % Normal 11.9-15.3 [facility] Comment on above: Performed By: #### C BC, CRP, ESR #### [address] Erythrocyte sedimentation ra te by Photometric methodOrdered By: Simone Bahena on 07-27-2023 ESR Photometric method (Bld) [Velocity] 14 mm/hr 0-19 [facility] Erythrocytes [#/volume] in B lood by Automated countOrdered By: Simone Bahena on 07-27-2023 RBC (Bld) [#/Vol] 4.14 10*6/uL Normal 3.60-5.00 [facility] Comment on above: Performed By: #### C BC, CRP, ESR #### [address] Hematocrit [Volume Fraction] of Blood by Automated countOrdered By: Simone Bahena on 07-27-2023 Hematocrit (Bld) [Volume fraction] 39.0 % Normal 34.0-46.4 [facility] Comment on above: Performed By: #### C BC, CRP, ESR #### [address] Hemoglobin [Mass/volume] in BloodOrdered By: Simone Bahena on 07-27-2023 Hemoglobin (Bld) [Mass/Vol] 13.3 g/dL Normal 11.8-15.4 [facility] Comment on above: Performed By: #### C BC, CRP, ESR #### [address] Leukocytes [#/volume] correc betty for nucleated erythrocytes in Blood by Automated counOrdered By: Simone Bahena on 07-27-2023 WBC corrected for nucl RBC Auto (Bld) [#/Vol] 9.4 10*3/uL 3.8-11.6 [facility] Leukocytes [#/volume] in Blo od by Automated countOrdered By: Simone Bahena on 07-27-2023 WBC (Bld) [#/Vol] 9.4 10*3/uL Normal 3.8-11.6 [facility] Comment on above: Performed By: #### C BC, CRP, ESR #### [address] Lymphocytes [#/volume] in Bl ood by Automated countOrdered By: Simone Bahena on 07-27-2023 Lymphocytes (Bld) [#/Vol] 2.6 10*3/uL Normal 1.00-4.8 [facility] Comment on above: Performed By: #### C BC, CRP, ESR #### [address] Lymphocytes/100 leukocytes i n Blood by Automated countOrdered By: Simone Bahena on 07-27-2023 Lymphocytes/100 WBC (Bld) 27.9 % Normal . [facility] Comment on above: Performed By: #### C BC, CRP, ESR #### [facility] [address] [place] [address] [place] MCH [Entitic mass] by Automa betty countOrdered By: Simone Bahena on 07-27-2023 MCH (RBC) [Entitic mass] 32.0 pg Normal 24.7-34.3 [facility] Comment on above: Performed By: #### C BC, CRP, ESR #### [facility] [address] [place] [address] MCHC Auto (RBC) [Mass/Vol]Or dered By: Simone Bahena on 07-27-2023 MCHC (RBC) [Mass/Vol] 34.0 g/dL 32.0-35.0 [facility] MCV [Entitic volume] by Auto mated countOrdered By: Simone Bahena on 07-27-2023 MCV (RBC) [Entitic vol] 94.2 fL Normal 80-100 [facility] Comment on above: Performed By: #### C BC, CRP, ESR #### [facility] [address] [place] [address] [place] Neutrophils [#/volume] in Bl ood by Automated countOrdered By: Simone Bahena on 07-27-2023 Neutrophils (Bld) [#/Vol] 5.8 10*3/uL Normal 1.8-7.7 [facility] Comment on above: Performed By: #### C BC, CRP, ESR #### [facility] [address] [place] [address] [place] Nucleated erythrocytes [Pres ence] in Blood by Automated countOrdered By: Simone Bahena on 07-27-2023 Nucleated RBC Auto Ql (Bld) 0.1 /100{WBC} 0-0.5 [facility] Platelet mean volume [Entiti c volume] in Blood by Automated countOrdered By: Simone Bahena on 07-27-2023 Platelet mean volume (Bld) [Entitic vol] 7.7 fL Normal 6.3-10.7 [facility] Comment on above: Performed By: #### C BC, CRP, ESR #### [facility] [address] Platelets [#/volume] in Bloo d by Automated countOrdered By: Simone Bahena on 07-27-2023 Platelets (Bld) [#/Vol] 294 10*3/uL Normal 150-450 [facility] Comment on above: Performed By: #### C BC, CRP, ESR #### [facility] [address] No Panel Informationon 07-05 INFLUENZA A Negative [facility] INFLUENZA B Negative [facility] Interpretation and review of laboratory results Normal [facility] S. pyogenes DNA CRYSTAL+probe No m (Unsp spec)on 07-05-2023 Interpretation and review of laboratory results Normal [facility] RESULT Negative [facility] CNOVon 06-29-2023 CNOV Office Visit (PLASMN ) ----- GERALDINE SHELTONITLYJohn Wills ([id number]) 1995 F Date Time Provider Department 06/29/23 3:40 PM MIGUEL ANG During your visit today, we recorded the following information about you: Temperature Pulse Blood pressure 97.3 degrees 68/minute 121/67 Miguel Ang PA-C 06/30/2023 8:33 AM Signed PLASTIC SURGERY DEPARTMENT [facility] Hand Surgery Note [] New referred [...] move up the arm past the wrist. 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 Dominant Hand: [...] by m (more content not included)... Normal [facility] No Panel Informationon 06-29 [facility] XR HAND 3V PA/LAT/OBL RTon [...] DEFORMITY, AN EROSION, OR SEQUELA OF OSTEOMYELITIS. Product Design Engineer: TOMAS Transcribe Date/Time: Jun 29 2023 4:42P Dictated by : MAXINE RUBI MD This examination was interpreted and the report reviewed and electronically signed by: MAXINE RUBI MD on Jun 29 2023 4:45PM EST [id number] Normal [facility] Alanine aminotransferase [En zymatic activity/volume] in Serum or PlasmaOrdered By: Susie Johnson on 04-03-2023 ALT [Catalytic activity/Vol] 15 U/L Normal 7-52 [facility] Comment on above: Performed By: #### H EPATIC #### [address] Albumin [Mass/volume] in Ser um or Plasma by Bromocresol green (BCG) dye binding methoOrdered By: Susie Johnson on 04-03-2023 Albumin BCG dye [Mass/Vol] 4.2 g/dL 3.5-5.7 [facility] Alkaline phosphatase [Enzyma tic activity/volume] in Serum or PlasmaOrdered By: Susie Johnson on 04-03-2023 ALP [Catalytic activity/Vol] 104 U/L Normal 34-104 [facility] Comment on above: Result Comment: PERF ORMED BY: [place] [address] PATHOLOGIST LITHOGRAPHING MACHINE OPERATOR NAINA NEWMAN M.D. Performed By: #### H EPATIC #### [facility] [address] [place], [place] [id number] [facility] Aspartate aminotransferase [ Enzymatic activity/volume] in Serum or PlasmaOrdered By: Susie Johnson on 04-03-2023 AST [Catalytic activity/Vol] 15 U/L Normal 13-39 [facility] Comment on above: Performed By: #### H EPATIC #### [address] Bilirubin.direct [Mass/volum e] in Serum or PlasmaOrdered By: Susie Johnson on 04-03-2023 Bilirubin.direct [Mass/Vol] 0.10 mg/dL 0.03-0.18 [facility] Bilirubin.total [Mass/volume ] in Serum or PlasmaOrdered By: Susie Risnalini on 04-03-2023 Bilirubin [Mass/Vol] 0.8 mg/dL Normal 0.3-1.0 [facility] Comment on above: Performed By: #### H EPATIC #### [address] Hepatic Panelon 04-03-2023 Albumin [Mass/Vol] 4.2 g/dL Normal 3.5-5.7 [facility] Comment on above: Performed By: #### H EPATIC #### [address] Bilirubin,Indirect 0.7 mg/dL Normal [facility] Comment on above: Performed By: #### H EPATIC #### [address] Bilirubin.indirect [Mass/Vol] 0.10 mg/dL Normal 0.03-0.18 [facility] Comment on above: Performed By: #### H EPATIC #### [address] Protein [Mass/volume] in Ser um or PlasmaOrdered By: Susie Johnson on 04-03-2023 Protein [Mass/Vol] 6.8 g/dL Normal 6.4-8.9 [facility] Comment on above: Performed By: #### H EPATIC #### [address] Serum globulin measurement b y calculation (mass/volume)Ordered By: Susie Johnson on 04-03-2023 Globulin (S) [Mass/Vol] 2.6 g/dL Normal [facility] Comment on above: Performed By: #### H EPATIC #### [facility] [address] Serum or plasma albumin/glob ulin mass ratioOrdered By: Susie Johnson on 04-03-2023 Albumin/Globulin [Mass ratio] 1.6 {ratio} Normal [facility] Comment on above: Performed By: #### H EPATIC #### [facility] [address] Serum or plasma non-glucuron idated bilirubin measurement (mass/volume)Ordered By: Susie Johnson on 04-03-2023 Bilirubin.indirect [Mass/Vol] 0.7 mg/dL [facility] Follow-Upon 02-24-2023 Follow-Up [id number] Jimenez Shelton tlarchana 1995 F Date Provider Department Center 02/24[facility]20[facility] [place] Family history unknown: Yes Level of Service:86144 [place] OFFICE/OUTPATIENT ESTABLISHED SF MDM 10-19 MIN (GC) Reason for Visit and Comments: Follow-up [418128] Normal [facility] Office Visiton 02-17-2023 Follow-up visit [id number] Jimenez Shelton tlyn 1995 F Date Provider Department Center 02/17/2023 JAISON ARAGON [facility] Family History Family history unknown: Yes Level of Service:80163 MS OFFICE/OUTPATIENT NEW LOW MDM 30-44 MINUTES Reason for Visit and Comments: Numbness [75] Normal [facility] XR Hand Complete Left*on XR Hand Complete Left* Findings: No fracture, dislocation, bone lesion. Joint spaces are maintained. IMPRESSION: Negative left hand. Report reported and signed by Rylan Signer on 09/30/2022 0745 Normal [facility] [employer] XR Hand Complete Right*on XR Hand Complete Right* Findings: No fracture, dislocation, bone lesion. Joint spaces maintained. IMPRESSION: Negative right hand. Report reported and signed by Rylan Signer on 09/30/2022 0744 Normal [facility] [employer] MICRO OTHER TESTSOrdered By: Kashif Bolaños on 07-20-2022 S. pyogenes Ag IA.rapid Ql (Throat) Negative (07/20/22 1:06 AM) Normal Negative [facility] Man Sero CHEMISTRYOrdered By: [...] rate/Area] mL/min/1.73 m2 Normal >=59mL/min /1.73 m2 [facility] Chem S GFR/1.73 sq M.predicted among non-blacks MDRD (S/P/Bld) [Vol rate/Area] mL/min/1.73 m2 Normal >=59mL/min /1.73 m2 [facility] Chem S Glucose [Mass/Vol] [...] rate/Area] mL/min/1.73 m2 Normal >=59mL/min /1.73 m2 [facility] Chem S Glucose [Mass/Vol] [...] pyogenes Org specific cx Ql (Throat) Positive [employer] Other Quick Strep [facility] Other Quick Strepon 04-16-2022 S. pyogenes Org specific cx Ql (Throat) Positive [employer] [facility] Other Quick Strep [facility] Other CBC AUTO DIFFon 03-22-2022 BASO # 0.1 103/ul Normal 0.0-0.1 [facility] Comment on above: Performed By: #### C BC #### [facility] [address] [place] [address] [address] Adalberto Dimas Basophils/100 WBC (Bld) 0.2 % Normal 0.2-2.0 [facility] Comment on above: Performed By: #### C BC #### [facility] [address] [place] [address] Dr. Adalberto Dimas EO # 0.0 103/ul Normal 0.0-0.7 [facility] Comment on above: Performed By: #### C BC #### [facility] [address] [place] [address] Dr. Adalberto Dimas Eosinophils/100 WBC (Bld) 0.2 % Critically low 0.9-7.[address] [facility] Comment on above: Performed By: #### C BC #### [facility] [address] [place] [address] Dr. Adalberto Dimas Erythrocyte distribution width (RBC) [Ratio] 12.0 % Normal 11.0-15.[address] [facility] Comment on above: Performed By: #### C BC #### [facility] [address] [place] [address] Dr. Adalberto Dimas Hematocrit (Bld) [Volume fraction] 39.5 % Normal 36.0-48.[address] [facility] Comment on above: Performed By: #### C BC #### [facility] [address] [place] [address] Dr. Adalberto Dimas Hemoglobin (Bld) [Mass/Vol] 13.9 g/dL Normal 12.0-16.0 [facility] Comment on above: Performed By: #### C BC #### [facility] [address] [place] [address] Dr. Adalberto Dimas IG # 0.08 10e3/ul Critically high 0.00-0.03 [facility] Comment on above: Performed By: #### C BC #### [facility] [address] [place] [address] Dr. Adalberto Dimas IG % 0.4 % Normal 0.0-0.5 [facility] Comment on above: Performed By: #### C BC #### [facility] [address] [place] [address] Dr. Adalberto Dimas LYMPH # 1.7 103/ul Normal 1.2-3.8 [facility] Comment on above: Performed By: #### C BC #### [facility] [address] [place] [address] Dr. Adalberto Dimas Lymphocytes/100 WBC (Bld) 7.6 % Critically low 20.5-60.0 [facility] Comment on above: Performed By: #### C BC #### [facility] [address] [place] [address] Dr. Adalberto Dimas MANUAL DIFF REQ NO Normal [facility] Comment on above: Performed By: #### C BC #### [facility] [address] [place] [address] Dr. Adalberto Dimas MCH (RBC) [Entitic mass] 32.5 pg Normal 26.7-34.0 [facility] Comment on above: Performed By: #### C BC #### [facility] [address] [place] [address] Dr. Adalberto Dimas MCHC (RBC) [Mass/Vol] 35.2 g/dL Normal 29.9-35.2 [facility] Comment on above: Performed By: #### C BC #### [facility] [address] [place] [address] Dr. Adalberto Dimas MCV (RBC) [Entitic vol] 92.3 fL Normal 81.0-99.0 [facility] Comment on above: Performed By: #### C BC #### [facility] [address] [place] [address] Dr. Adalberto Dimas MONO # 1.4 103/ul Critically high 0.3-0.8 [facility] Comment on above: Performed By: #### C BC #### [facility] [address] [place] [address] [address] Adalberto Dimas Monocytes/100 WBC (Bld) 6.3 % Normal 1.7-12.0 [facility] Comment on above: Performed By: #### C BC #### [facility] [address] [place] [address] Dr. Adalberto Dimas NEUT # 18.8 103/ul Critically high 1.4-6.5 [facility] Comment on above: Performed By: #### C BC #### [facility] [address] [place] [address] Dr. Adalebrto Dimas Neutrophils/100 WBC (Bld) 85.3 % Critically high 43.0-75.0 [facility] Comment on above: Performed By: #### C BC #### [facility] [address] [place] [address] Dr. Adalberto Dimas Platelet mean volume (Bld) [Entitic vol] 9.1 fL Critically low 9.5-13.[address] [facility] Comment on above: Performed By: #### C BC #### [facility] [address] [place] [address] Dr. Adalberto Dimas PLT 267 103/ul Normal 150-[address] [facility] Comment on above: Performed By: #### C BC #### [facility] [address] [place] [address] Dr. Adalberto Dimas RBC 4.28 106/ul Normal 4.20-5.[address] [facility] Comment on above: Performed By: #### C BC #### [facility] [address] [place] [address] Dr. Adalberto Dimas WBC 22.0 103/ul Critically high 4.0-11.0 [facility] Comment on above: Performed By: #### C BC #### [facility] [address] [place] [address] Dr. Adalberto Dmias PROF 14(COMP METB)on 022 Albumin [Mass/Vol] 3.8 g/dL Normal 3.4-5.0 [facility] Comment on above: Performed By: #### C MP #### [facility] [address] [place] [address] Dr. Adalberto Dimas Albumin/Globulin [Mass ratio] 1.0 {ratio} Normal [facility] Comment on above: Performed By: #### C MP #### [facility] [address] [address] [address] Adalberto Dimas ALP [Catalytic activity/Vol] 97 U/L Normal 46-116 [facility] Comment on above: Performed By: #### C MP #### [facility] [address] [place] [address] Dr. Adalberto Dimas ALT [Catalytic activity/Vol] 17 U/L Normal 14-59 [facility] Comment on above: Performed By: #### C MP #### [facility] [address] [place] [address] Dr. Adalberto Dimas Anion gap [Moles/Vol] 12.5 mmol/L Normal [facility] Comment on above: Performed By: #### C MP #### [facility] [address] [place] [address] Dr. Adalberto Dimas AST [Catalytic activity/Vol] 12 U/L Critically low 15-37 [facility] Comment on above: Performed By: #### C MP #### [facility] [address] [place] [address] Dr. Adalberto Dimas Bilirubin [Mass/Vol] 2.9 mg/dL Critically high 0.2-1.0 [facility] Comment on above: Performed By: #### C MP #### [facility] [address] [place] [address] Dr. Adalberto Dimas Calcium [Mass/Vol] 8.7 mg/dL Normal 8.5-10.1 [facility] Comment on above: Performed By: #### C MP #### [facility] [address] [place] [address] Dr. Adalberto Dimas Chloride [Moles/Vol] 101 mmol/L Normal 98-107 [facility] Comment on above: Performed By: #### C MP #### [facility] [address] [address] [address] Adalberto Dimas CO2 [Moles/Vol] 27.0 mmol/L Normal 21.0-32.0 [facility] Comment on above: Performed By: #### C MP #### [facility] [address] [address] [address] Adalberto Dimas Creatinine [Mass/Vol] 0.87 mg/dL Normal 0.55-1.02 [facility] Comment on above: Performed By: #### C MP #### [facility] [address] [address] [address] Adalberto Dimas EGFR-AF GUINEAN >60 Normal >=60 [facility] Comment on above: Performed By: #### C MP #### [facility] [address] [place] [address] Dr. Adalberto Dimas EGFR-NON AF GUINEAN >60 Normal >=60 [facility] Comment on above: Performed By: #### C MP #### [facility] [address] [address] [address] Adalberto Dimas Globulin (S) [Mass/Vol] 3.9 g/dL Normal [facility] Comment on above: Performed By: #### C MP #### [facility] [address] [place] [address] Dr. Adalberto Dimas Glucose [Mass/Vol] 105 mg/dL Normal 74-106 [facility] Comment on above: Performed By: #### C MP #### [facility] [address] [address] [address] Adalberto Dimas Potassium [Moles/Vol] 3.5 mmol/L Normal 3.5-5.[address] [facility] Comment on above: Performed By: #### C MP #### [facility] [address] [place] [address] Dr. Adalberto Dimas Protein [Mass/Vol] 7.7 g/dL Normal 6.4-8.2 [facility] Comment on above: Performed By: #### C MP #### [facility] [address] [address] [address] Adalberto Dimas Sodium [Moles/Vol] 137 mmol/L Normal 136-145 [facility] Comment on above: Performed By: #### C MP #### [facility] [address] [address] [address] Adalberto Dimas Urea nitrogen [Mass/Vol] 15.0 mg/dL Normal 7.0-18.0 [facility] Comment on above: Performed By: #### C MP #### [facility] [address] [address] [address] Adalberto Dimas Urea nitrogen/Creatinine [Mass ratio] 17.2 mg/mg Normal [facility] Comment on above: Performed By: #### C MP #### [facility] [address] [address] [address] Adalberto Dimas XR NECK SOFT TISSUEon [...] Carson [place] Date: 2022-03-22 01:19 Normal [facility] Quick Strepon 03-21-2022 S. pyogenes Org specific cx Ql (Throat) Positive [employer] Other Quick Strep [employer] [facility] Other CBC AUTO DIFFon 11-17-2021 BASO # 0.0 103/ul Normal 0.0-0.1 [facility] Comment on above: Performed By: #### C BC #### [facility] [address] [address] [address] Adalberto Dimas Basophils/100 WBC (Bld) 0.3 % Normal 0.2-2.0 [facility] Comment on above: Performed By: #### C BC #### [facility] [address] [place] [address] Dr. Adalberto Dimas EO # 0.1 103/ul Normal 0.0-0.[address] [facility] [address] [facility] [facility] Comment on above: Performed By: #### C BC #### [facility] [address] [place] [address] Dr. Adalberto Dimas Eosinophils/100 WBC (Bld) 0.4 % Critically low 0.9-7.[address] [facility] Comment on above: Performed By: #### C BC #### [facility] [address] [place] [address] Dr. Adalberto Dimas Erythrocyte distribution width (RBC) [Ratio] 12.2 % Normal 11.0-15.0 [facility] Comment on above: Performed By: #### C BC #### [facility] [address] [place] [address] Dr. Adalberto Dimas Hematocrit (Bld) [Volume fraction] 41.7 % Normal 36.0-48.0 [facility] Comment on above: Performed By: #### C BC #### [facility] [address] [place] [address] Dr. Adalberto Dimas Hemoglobin (Bld) [Mass/Vol] 14.1 g/dL Normal 12.0-16.0 [facility] Comment on above: Performed By: #### C BC #### [facility] [address] [place] [address] Dr. Adalberto Dimas IG # 0.02 10e3/ul Normal 0.00-0.[address] [facility] Comment on above: Performed By: #### C BC #### [facility] [address] [place] [address] Dr. Adalberto Dimas IG % 0.2 % Normal 0.0-0.[address] [facility] Comment on above: Performed By: #### C BC #### [facility] [address] [place] [address] Dr. Adalberto Dimas LYMPH # 1.8 103/ul Normal 1.2-3.[address] [facility] Comment on above: Performed By: #### C BC #### [facility] [address] [address] [address] Adalberto Dimas Lymphocytes/100 WBC (Bld) 15.3 % Critically low 20.5-60.[address] [facility] Comment on above: Performed By: #### C BC #### [facility] [address] [place] [address] Dr. Adalberto Dimas MANUAL DIFF REQ NO Normal The [facility] Comment on above: Performed By: #### C BC #### [facility] [address] [address] [address] Adalberto Dimas MCH (RBC) [Entitic mass] 31.8 pg Normal 26.7-34.[address] [facility] Comment on above: Performed By: #### C BC #### [facility] [address] [place] [address] Dr. Adalberto Dimas MCHC (RBC) [Mass/Vol] 33.8 g/dL Normal 29.9-35.[address] [facility] Comment on above: Performed By: #### C BC #### [facility] [address] [place] [address] Dr. Adalberto Dimas MCV (RBC) [Entitic vol] 93.9 fL Normal 81.0-99.[address] [facility] Comment on above: Performed By: #### C BC #### [facility] [address] [place] [address] Dr. Adalberto Dimas MONO # 1.1 103/ul Critically high 0.3-0.8 [facility] Comment on above: Performed By: #### C BC #### [facility] [address] [place] [address] Dr. Adalberto Dimas Monocytes/100 WBC (Bld) 9.0 % Normal 1.7-12.[address] [facility] Comment on above: Performed By: #### C BC #### [facility] [address] [place] [address] Dr. Adalberto Dimas NEUT # 8.7 103/ul Critically high 1.4-6.5 [facility] Comment on above: Performed By: #### C BC #### [facility] [address] [place] [address] Dr. Adalberto Dimas Neutrophils/100 WBC (Bld) 74.8 % Normal 43.0-75.[address] [facility] Comment on above: Performed By: #### C BC #### [facility] [address] [place] [address] Dr. Adalberto Dimas Platelet mean volume (Bld) [Entitic vol] 9.3 fL Critically low 9.5-13.[address] [facility] Comment on above: Performed By: #### C BC #### [facility] [address] [place] [address] Dr. Adalberto Dimas PLT 262 103/ul Normal 150-[address] [facility] Comment on above: Performed By: #### C BC #### [facility] [address] [place] [address] Dr. Adalberto Dimas RBC 4.44 106/ul Normal 4.20-5.[address] [facility] Comment on above: Performed By: #### C BC #### [facility] [address] [place] [address] Dr. Adalberto Dimas WBC 11.6 103/ul Critically high 4.0-11.0 [facility] Comment on above: Performed By: #### C BC #### [facility] [address] [place] [address] Dr. Adalberto Dimas ER URINE PROFILEon 2 Bilirubin Ql (U) Negative Normal NEGATIVE The [facility] Comment on above: Performed By: #### DARYL EDWARDSRO #### [facility] [address] [place] [address] Dr. Adalberto Dimas Clarity (U) CLEAR Normal CLEAR [facility] Comment on above: Performed By: #### DARYL EDWARDSRO #### [facility] [address] [place] [address] Dr. Adalberto Dimas Color (U) LT. YELLOW Normal YELLOW [facility] Comment on above: Performed By: #### DARYL EDWARDSRO #### [facility] [address] [place] [address] Dr. Adalberto Dimas ERUAHD A micrscopic examina tion will be performed if indicated. Normal [facility] Comment on above: Performed By: #### Gaby FROST UMICRO #### [facility] [address] [place] [address] Dr. Adalberto Dimas Glucose Ql (U) Negative Normal NEGATIVE [facility] Comment on above: Performed By: #### Gaby FROST UMICRO #### [facility] [address] [address] [address] Adalberto Dimas Hemoglobin Ql (U) Negative Normal NEGATIVE [facility] Comment on above: Performed By: #### Gaby FROST UMICRO #### [facility] [address] [place] [address] Dr. Adalberto Dimas Ketones Ql (U) Negative Normal NEGATIVE [facility] Comment on above: Performed By: #### Gaby FROST UMICRO #### [facility] [address] [place] [address] Dr. Adalberto Dimas LEUKOCYTES TRACE Abnormal NEGATIVE [facility] Comment on above: Performed By: #### Gaby FROST UMICRO #### [facility] [address] [place] [address] Dr. Adalberto Dimas Nitrite Ql (U) Negative Normal NEGATIVE [facility] Comment on above: Performed By: #### Gaby FROST UMICRO #### [facility] [address] [place] [address] Dr. Adalberto Dimas pH (U) 7.0 [pH] Normal 5-[address] [facility] Comment on above: Performed By: #### Gaby FROST UMICRO #### [facility] [address] [place] [address] Dr. Adalberto Dimas SPEC GRAVITY 1.010 Normal 1.005-<=1. 025 [facility] Comment on above: Performed By: #### Gaby FROST UMICRO #### [facility] [address] [place] [address] Dr. Adalberto Dimas UA PROTEIN Negative Normal NEGATIVE/ TRACE [facility] Comment on above: Performed By: #### Gaby FROST UMICRO #### [facility] [address] [address] [address] Adalberto Dimas UR MICRO IND INDICATED Normal [facility] Comment on above: Performed By: #### E LUKE FROST #### [facility] [address] [place] [address] Dr. Adalberto Dimas Urobilinogen Qn (U) 0.2 {James'U}/dL Normal 0.2 - 1. 0 [facility] Comment on above: Performed By: #### LUKE EDWARDS #### [facility] [address] [place] [address] Dr. Adalberto Dimas PREG HCG QUALon 11-17-2021 , QUAL Negative Normal NEGATIVE [facility] Comment on above: Performed By: #### P REG #### [facility] [address] [place] [address] Dr. Adalberto Dimas PROF CHEM 8 (BAS METB)on Anion gap [Moles/Vol] 10.0 mmol/L Normal [facility] Comment on above: Performed By: #### B MP #### [facility] [address] [place] [address] Dr. Adalberto Dimas Calcium [Mass/Vol] 8.7 mg/dL Normal 8.5-10.1 [facility] Comment on above: Performed By: #### B MP #### [facility] [address] [place] [address] Dr. Adalberto Dimas Chloride [Moles/Vol] 104 mmol/L Normal 98-107 [facility] Comment on above: Performed By: #### B MP #### [facility] [address] [place] [address] Dr. Adalberto Dimas CO2 [Moles/Vol] 27.8 mmol/L Normal 21.0-32.0 [facility] Comment on above: Performed By: #### B MP #### [facility] [address] [place] [address] Dr. Adalberto Dimas Creatinine [Mass/Vol] 0.79 mg/dL Normal 0.55-1.02 [facility] Comment on above: Performed By: #### B MP #### [facility] [address] [address] [address] Adalberto Dimas EGFR-AF GUINEAN >60 Normal >=60 [facility] Comment on above: Performed By: #### B MP #### [facility] [address] [place] [address] Dr. Adalberto Dimas EGFR-NON AF GUINEAN >60 Normal >=60 [facility] Comment on above: Performed By: #### B MP #### [facility] [address] [address] [address] Adalberto Dimas Glucose [Mass/Vol] 96 mg/dL Normal 74-106 [facility] Comment on above: Performed By: #### B MP #### [facility] [address] [place] [address] Dr. Adalberto Dimas Potassium [Moles/Vol] 3.8 mmol/L Normal 3.5-5.1 [facility] Comment on above: Performed By: #### B MP #### [facility] [address] [place] [address] Dr. Adalberto Dimas Sodium [Moles/Vol] 138 mmol/L Normal 136-145 [facility] Comment on above: Performed By: #### B MP #### [facility] [address] [place] [address] Dr. Adalberto Dimas Urea nitrogen [Mass/Vol] 12.0 mg/dL Normal 7.0-18.0 [facility] Comment on above: Performed By: #### B MP #### [facility] [address] [address] [address] Adalberto Dimas Urea nitrogen/Creatinine [Mass ratio] 15.2 mg/mg Normal [facility] Comment on above: Performed By: #### B MP #### [facility] [address] [place] [address] Dr. Adalberto Dimas URINE MICROSCOPIC ONLYon BACTERIA TRACE Abnormal NONE SEEN [facility] Comment on above: Performed By: #### LUKE EDWARDS #### [facility] [address] [place] [address] Dr. Adalberto Dimas Bacteria identified Cx Nom (U) NOT INDICATED Normal [facility] Comment on above: Performed By: #### E RUR, UMICRO #### [facility] [address] [place] [address] Dr. Adalberto Dimas CAST NONE SEEN Normal NONE SEEN [facility] Comment on above: Performed By: #### E RUR, UMICRO #### [facility] [address] [place] [address] Dr. Adalberto Dimas Crystals LM Nom (Urine sed) NONE SEEN Normal NONE SEEN [facility] Comment on above: Performed By: #### E RUR, UMICRO #### [facility] [address] [place] [address] Dr. Adalberto Dimas Epithelial cells LM Ql (Urine sed) MODERATE Abnormal NONE SEEN /RARE [facility] Comment on above: Performed By: #### E RUR, UMICRO #### [facility] [address] [place] [address] Dr. Adalberto Dimas MUCOUS NONE SEEN Normal NONE SEEN [facility] Comment on above: Performed By: #### E RUR, UMICRO #### [facility] [address] [place] [address] Dr. Adalberto Dimas RBC NONE SEEN Abnormal 0-[address] [facility] Comment on above: Performed By: #### E RUR, UMICRO #### [facility] [address] [place] [address] Dr. Adalberto Dimas WBC 0-2 Abnormal NONE SEEN [facility] Comment on above: Performed By: #### E RUR, UMICRO #### [facility] [address] [place] [address] Dr. Adalberto Dimas Complete Blood Count with Au to Diffon 10-02-2021 Basophils (Bld) [#/Vol] 0.04 10*3/uL Normal 0.00-0.20 [facility] Comment on above: Performed By: #### F ERR, FE Prof, CBCAD, RETIC #### [facility] [address] [place], [place] [id number] Basophils/100 WBC (Bld) 0.5 % Normal [facility] Comment on above: Performed By: #### F ERR, FE Prof, CBCAD, RETIC #### [facility] [address] [place], [place] [id number] Eosinophils (Bld) [#/Vol] 0.04 10*3/uL Normal 0.02-0.50 [facility] Comment on above: Performed By: #### F ERR, FE Prof, CBCAD, RETIC #### [facility] [address], [place] [id number] Eosinophils/100 WBC (Bld) 0.5 % Normal [facility] Comment on above: Performed By: #### F ERR, FE Prof, CBCAD, RETIC #### [facility] [address], [place] [id number] Erythrocyte distribution width (RBC) [Ratio] 12.5 % Normal 11.0-15.0 [facility] Comment on above: Performed By: #### F ERR, FE Prof, CBCAD, RETIC #### [facility] [address], [place] [id number] Hematocrit (Bld) [Volume fraction] 41.0 % Normal 35.0-47.0 [facility] Comment on above: Performed By: #### F ERR, FE Prof, CBCAD, RETIC #### [facility] [address], [place] [id number] Hemoglobin (Bld) [Mass/Vol] 13.7 g/dL Normal 11.6-15.5 [facility] Comment on above: Performed By: #### F ERR, FE Prof, CBCAD, RETIC #### [facility] [address] [place], [place] [id number] Lymphocytes (Bld) [#/Vol] 2.1 10*3/uL Normal 0.9-3.[address] [facility] Comment on above: Performed By: #### F ERR, FE Prof, CBCAD, RETIC #### [facility] [address] [place], [place] [id number] Lymphocytes/100 WBC (Bld) 24.2 % Normal [facility] Comment on above: Performed By: #### F ERR, FE Prof, CBCAD, RETIC #### [facility] [address] [place], [place] [id number] MCH (RBC) [Entitic mass] 31.6 pg Normal 27.0-33.[address] [facility] Comment on above: Performed By: #### F MADY FE Prof, CBCAD, RETIC #### [facility] [address] [place], [place] [id number] MCHC (RBC) [Mass/Vol] 33.4 g/dL Normal 32.0-36.0 [facility] Comment on above: Performed By: #### F ERR FE Prof, CBCAD, RETIC #### [facility] [address] [place], [place] [id number] MCV (RBC) [Entitic vol] 95 fL Normal 80-[address] [facility] Comment on above: Performed By: #### F MADY, FE Prof, CBCAD, RETIC #### [facility] [address] [place], [place] [id number] Monocytes (Bld) [#/Vol] 0.7 10*3/uL Normal 0.2-0.9 [facility] Comment on above: Performed By: #### F MADY FE Prof, CBCAD, RETIC #### [facility] [address] [place], [place] [id number] Monocytes/100 WBC (Bld) 7.9 % Normal [facility] Comment on above: Performed By: #### F ERR, FE Prof, CBCAD, RETIC #### [facility] [address] [place], [place] [id number] Neutrophils (Bld) [#/Vol] 5.7 10*3/uL Normal 1.5-7.[address] [facility] Comment on above: Performed By: #### F ERR, FE Prof, CBCAD, RETIC #### [facility] [address] [place], [place] [id number] Neutrophils/100 WBC (Bld) 66.5 % Normal [facility] Comment on above: Performed By: #### F ERR, FE Prof, CBCAD, RETIC #### [facility] [address] [facility] [place] [id number] Platelet mean volume (Bld) [Entitic vol] 9.80 fL Normal 7.50-12.50 [facility] Comment on above: Performed By: #### F ERR, FE Prof, CBCAD, RETIC #### [facility] [address] [place], [place] [id number] Platelets (Bld) [#/Vol] 253 10*3/uL Normal 140-[address] [facility] Comment on above: Performed By: #### F ERR, FE Prof, CBCAD, RETIC #### [facility] [address], [place] [id number] RBC (Bld) [#/Vol] 4.34 10*6/uL Normal 3.90-5.20 [facility] Comment on above: Performed By: #### F ERR, FE Prof, CBCAD, RETIC #### [facility] [address] [place], [place] [id number] RDW-SD 43.6 fL Normal 37.0-50.[address] [facility] Comment on above: Performed By: #### F ERR, FE Prof, CBCAD, RETIC #### [facility] [address] [place], [place] [id number] WBC (Bld) [#/Vol] 8.6 10*3/uL Normal 3.8-11.0 [facility] Comment on above: Performed By: #### F ERR, FE Prof, CBCAD, RETIC #### [facility] [address], [place] [id number] Ferritinon 10-02-2021 FERR 77.1 ng/mL Normal 15.0-150.[address] [facility] Comment on above: Performed By: #### F ERR, FE Prof, CBCAD, RETIC #### [facility] [address], [place] [id number] Iron Profileon 10-02-2021 %FESAT 22 % Normal 11-[address] [facility] Comment on above: Performed By: #### F ERR, FE Prof, CBCAD, RETIC #### [facility] [address], [place] [id number] FE 67 ug/dL Normal 40-[address] [facility] Comment on above: Result Comment: Refe rence range change 04/10/2017. Prior reference range F 37-145 ug/dL, M 59-158 ug/dL. Performed By: #### F ERR, FE Prof, CBCAD, RETIC #### [facility] [address] [place], [place] [id number] TIBC 300 ug/dL Normal 250-450 [facility] Comment on above: Performed By: #### F ERR, FE Prof, CBCAD, RETIC #### [facility] [address] [place], [place] [id number] UIBC 233 ug/dL Normal 112-[address] [facility] Comment on above: Performed By: #### F ERR, FE Prof, CBCAD, RETIC #### [facility] [address], [place] [id number] Q - PROTHROMBIN TIME WITH IN Tyson 10-02-2021 INR Coag (PPP) [Relative time] 1.0 {INR} Normal [facility] Comment on above: Order Comment: [facility] performed at: [employer], [facility], [address] [place] [address], [address] [place] [address], [phone], Alarm Installer: Blade Vazquez MD [facility] Date/Time: [facility] Results Received Date/Time: [facility] Reported Date/Time: Result Comment: Refe rence Range 0.9-1.1 Moderate-intensity Warfarin Therapy 2.0-3.0 Higher-intensity Warfarin Therapy 3.0-4.0 Performed By: #### 2 6F, 763X, 4919X #### [facility] [address] [place] [address] PT Coag (PPP) [Time] 9.7 s Normal 9.0-11.5 [facility] Comment on above: Order Comment: [facility] performed at: [employer], [facility], [address] [place] [address], [address] [place] [address], [phone], Alarm Installer: Blade Vazquez MD [facility] Date/Time: [facility] Results Received Date/Time: [facility] Reported Date/Time: Result Comment: For additional information, please refer to http://education.[employer]/faq/SRK889 (This link is being provided for informational/ educational purposes only.) Performed By: #### 2 6F, 763X, 4919X #### [facility] [address] [place] [address] Q - PTTon 10-02-2021 PARTIAL THROMBOPLASTIN TIME, ACTIVATED 30 sec Normal 23-32 [facility] Comment on above: Order Comment: [facility] performed at: [facility], [facility], [address], [address] [place], [phone], Alarm Installer: Blade Vazquez MD [facility] Date/Time: [facility] Results Received Date/Time: [facility] Reported Date/Time: Result Comment: This test has not been validated for monitoring unfractionated heparin therapy. For testing that is validated for this type of therapy, please refer to the Heparin Anti-Xa assay (test code 82191). For additional information, please refer to http://education.[employer]/faq/GQH857 (This link is being provided for informational/educational purposes only.) Performed By: #### 2 6F, 763X, 4919X #### [facility] [address] [place] [address] Q - VON WILLEBRAND FACTOR AN TIGENon 10-02-2021 VON WILLEBRAND FACTOR ANTIGEN 74 % Normal 50-217 [facility] Comment on above: Order Comment: [facility] performed at: [facility], [facility], [address] [facility] , [place], [place], , Alarm Installer: Keven Crowley M.D.,PhD [facility] Date/Time: [facility] Results Received Date/Time: [facility] Reported Date/Time: Performed By: #### 2 6F, 763X, 4919X #### [facility] [address] [place] [address] RETICon 10-02-2021 IRF 8.90 % High 0.01-0.16 [facility] Comment on above: Performed By: #### F ERR, FE Prof, CBCAD, RETIC #### [facility] [address], [place] [id number] RET# 0.07 M/uL Normal 0.02-0.10 [facility] Comment on above: Performed By: #### F ERR, FE Prof, CBCAD, RETIC #### [facility] [address], [place] [id number] Ret% 1.51 % Normal 0.40-1.80 [facility] Comment on above: Performed By: #### F ERR, FE Prof, CBCAD, RETIC #### [facility] [address], [place] [id number] RET-HE 36.90 pg Normal 31.90-37.1 0 [facility] Comment on above: Performed By: #### F ERR, FE Prof, CBCAD, RETIC #### [facility] [address] [place], [place] [id number] Vitamin B12/Folateon 022 Cobalamin (Vitamin B12) [Mass/Vol] 408 pg/mL Normal 211-946 [facility] Comment on above: Performed By: #### B 12/Fol #### [facility] [address], [place] [id number] FOL 8.6 ng/mL Normal >4.7 [facility] Comment on above: Result Comment: Refe rence range change 04/10/2017. Prior reference range F 4.8-37.3 ng/mL, M 4.5-32.2 ng/mL. Performed By: #### B 12/Fol #### [facility] [address] [place], [place] [id number] XR knee LT 4V*on 07-20-2021 XR knee LT 4V* [facility] Other XR knee LT 4V* [facility] Other XR knee LT 4V* [address] [place] [address] [facility] Other XR knee LT 4V* [place] [address] No [facility] Other XR knee LT 4V* XRay Report [employer] Other XR knee LT 4V* Signed Outline Other XR knee LT 4V* Patient: Erma Almazan MR#: [id number] [employer] Other XR knee LT 4V* 184 [employer] Other XR knee LT 4V* : 1995 Acct:[id number] [employer] Other XR knee LT 4V* Age/Sex: 26 / F ADM Date: 07/20/21 [employer] Other XR knee LT 4V* Loc: [id number] Room: pe: [facility] [employer] Other XR knee LT 4V* Attending Dr: Asim Palma FRAME STRAIGHTENER-C [employer] Other XR knee LT 4V* Ordering Provider: Tony Palma TRANSPORTATION MAINTENANCE SPECIALIST-C [employer] Other XR knee LT 4V* Date of Service: 07/20/21 [employer] Other XR knee LT 4V* XR/XR knee LT 4V*: Acute pain of left knee [employer] Other XR knee LT 4V* Copies to: Asim Palma TRANSPORTATION MAINTENANCE SPECIALIST-C [employer] Other XR knee LT 4V* Left knee 07/20/2021. [employer] Other XR knee LT 4V* CLINICAL DATA: Left knee pain. No known injury. [employer] Other XR knee LT 4V* FINDINGS: 4 views of the left knee were obtained. [employer] Other XR knee LT 4V* No acute fracture or dislocation is identified. No early degenerative or other arthritic changes [employer] Other XR knee LT 4V* are seen. No bony er osion or destruction is visualized. There is no suprapatellar effusion. [employer] Other XR knee LT 4V* X R/XR knee LT 4V* [employer] Other XR knee LT 4V* IMPRESSION: No acute bony abnormality or effusion. 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 NoneOrdered By: Denton Barr on 12-08-2020 1. No acute intra-abdominal abnormality. 2. Hepatic steatosis. Multiple areas of increased attenuation in the hepatic lobes, likely fatty sparing. 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 Bones/Soft Tissues: No acute osseous abnormality. 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 Little1 Phone: Little1 Phone: BASIC METABOLIC PANELOrdered By: Denton Barr on 12-07-2020 Anion gap [Moles/Vol] 10 mmol/L 9 - 17 mmol/L [facility] Phone: Calcium [Mass/Vol] 8.7 mg/dL 8.6 - 10. 4 mg/dL [facility] Phone: Chloride [Moles/Vol] 103 mmol/L 98 - 10 7 mmol/L [facility] Phone: CO2 [Moles/Vol] 25 mmol/L 20 - 31 mmol/L Little[facility] Phone: Creatinine [Mass/Vol] 0.68 mg/dL 0.50 - 0.90 mg/dL Little[facility] Phone: GFR >60 >60 mL/min [employer] Phone: GFR Non- >60 >60 mL/min Little1 Phone: GFR/1.73 sq M.predicted MDRD (S/P/Bld) [Vol rate/Area] Little1 Phone: Comment on above: Average GFR for 20-2 9 years old: 116 mL/min/1.73sq m Chronic Kidney Disease: <60 mL/min/1.73sq m Kidney failure: <15 mL/min/1.73sq m eGFR calculated using average adult body mass. Additional eGFR calculator available at: http://www.Boxee/multiple_crcl_2012.htm GFR/1.73 sq M.predicted MDRD (S/P/Bld) [Vol rate/Area] NOT REPORTED Little[facility] Phone: Glucose [Mass/Vol] 108 mg/dL High 70 - 99 mg/dL Little[facility] Phone: Interpretation and review of laboratory results Abnormal Little[facility] Phone: Potassium [Moles/Vol] 4.1 mmol/L 3.7 - 5.3 mmol/L Little[facility] Phone: Sodium [Moles/Vol] 138 mmol/L 135 - 144 mmol/L Little1 Phone: Urea nitrogen (BldV) [Mass/Vol] 12 mg/dL 6 - 20 mg/dL [facility] [employer] Work Phone: Urea nitrogen/Creatinine (Bld) [Mass ratio] NOT REPORTED [place] [facility] Work Phone: [place] [facility] [employer] Work Phone: Basic Metabolic Profon 12-07 (cont.) Normal [facility] Comment on above: Result Comment: Aver age GFR for 20-29 years old: 116 mL/min/1.73sq m Chronic Kidney Disease: <60 mL/min/1.73sq m Kidney failure: <15 mL/min/1.73sq m eGFR calculated using average adult body mass. Additional eGFR calculator available at: http://www.Boxee/multiple_crcl_2012.htm Performed By: #### C DP, HCG, BMP #### [place] [facility] [employer] [address] [place] [address] [employer]: Lloyd Vela MD Anion gap [Moles/Vol] 10 mmol/L Normal 9-17 [facility] Comment on above: Performed By: #### C DP, HCG, BMP #### [place] [facility] [address] [place] [address] [employer]: Lloyd Vela MD Calcium [Mass/Vol] 8.7 mg/dL Normal 8.6-10.4 [facility] Comment on above: Performed By: #### C DP, HCG, BMP #### [place] [facility] [address] [place] [address] [employer]: Lloyd Vela MD Chloride [Moles/Vol] 103 mmol/L Normal 98-107 [facility] Comment on above: Performed By: #### C DP, HCG, BMP #### [place] [facility] [address] [place] [address] [employer]: Lloyd Vela MD CO2 [Moles/Vol] 25 mmol/L Normal 20-31 [facility] Comment on above: Performed By: #### C DP, HCG, BMP #### [address] [address] [employer]: Lloyd Vela MD Creatinine [Mass/Vol] 0.68 mg/dL Normal 0.50-0.90 [facility] Comment on above: Performed By: #### C DP, HCG, BMP #### [address] [address] [employer]: Lloyd Vela MD GFR, Amer >60 Normal >60 [facility] Comment on above: Performed By: #### C DP, HCG, BMP #### [place] [facility] [employer] [address] [place] [address] [employer]: Lloyd Vela MD GFR,non Amer >60 Normal >60 [facility] Comment on above: Performed By: #### C DP, HCG, BMP #### [address] [address] [employer]: Lloyd Vela MD Glucose [Mass/Vol] 108 mg/dL High 70-99 [facility] Comment on above: Performed By: #### C DP, HCG, BMP #### [address] [address] [employer]: Lloyd Vela MD Potassium [Moles/Vol] 4.1 mmol/L Normal 3.7-5.3 [facility] Comment on above: Performed By: #### C DP, HCG, BMP #### [address] [address] [employer]: Lloyd Vela MD Sodium [Moles/Vol] 138 mmol/L Normal 135-144 [facility] Comment on above: Performed By: #### C DP, HCG, BMP #### [place] [facility] [employer] [address] [place] [address] [place] [address] [employer]: Lloyd Vela MD Urea nitrogen [Mass/Vol] 12 mg/dL Normal -20 [facility] Comment on above: Performed By: #### C DP, HCG, BMP #### [facility] [address] [place] [address] [employer]: Lloyd Vela MD BUN/CRE Ratio NOT REPORTED Normal - [facility] Comment on above: Performed By: #### C DP, HCG, BMP #### [facility] [address] [place] [address] [employer]: Lloyd Vela MD Staging: NOT REPORTED Normal [facility] Comment on above: Performed By: #### C DP, HCG, BMP #### [facility] [address] [place], [place] [id number] [employer]: Lloyd Vela MD CBC WITH AUTO DIFFERENTIALOr dered By: Denton Barr on 12-07-2020 [employer] # 0.07 [facility] Work Phone: [facility] Immature Granulocyte 0.05 [employer] Work Phone: [facility] Lymph # 3.21 [facility] Work Phone: Absolute [place] # 0.94 [facility] Work Phone: Basophils (Bld) [#/Vol] 0.04 10*3/uL [employer] Work Phone: Basophils/100 WBC (Bld) 0 % 0 - 2 % [employer] Work Phone: Differential Type NOT REPORTED [employer] Work Phone: Eosinophils/100 WBC (Bld) 1 % 1 - 4 % [employer] Work Phone: Hematocrit (Bld) [Volume fraction] 39.2 % 36.3 - 47.1 % [employer] Work Phone: Hemoglobin.gastrointes tinal spec 1 Ql (Stl) 13.1 g/dL 11.9 - 15.1 g/dL Little1 Phone: Immature granulocytes/100 WBC (Bld) 0 % 0 Little1 Phone: Interpretation and review of laboratory results Abnormal Little1 Phone: Lymphocytes/100 WBC (Bld) 27 % 24 - 43 % Little[facility] Phone: MCH (RBC) [Entitic mass] 31.0 pg 25.2 - 33.5 pg Little1 Phone: MCHC (RBC) [Mass/Vol] 33.4 g/dL 28.4 - 34.8 g/dL Little[facility] Phone: MCV (RBC) [Entitic vol] 92.9 fL 82.6 - 102.9 fL Little[facility] Phone: Monocytes/100 WBC (Bld) 8 % 3 - 12 % [facility] Phone: NRBC Automated 0.0 0.0 per 100 WBC Little1 Phone: Platelet distribution width (Bld) [Ratio] 12.3 % 11.8 - 14.4 % Little[facility] Phone: Platelet Estimate NOT REPORTED [facility] Phone: Platelet mean volume (Bld) [Entitic vol] 9.0 fL 8.1 - 13.5 fL Little[facility] Phone: Platelets (Bld) [#/Vol] 314 10*3/uL Little[facility] Phone: RBC (Bld) [#/Vol] 4.22 10*6/uL 3.95 - 5.11 m/uL Little[facility] Phone: RBC (Bld) [#/Vol] NOT REPORTED Little1 Phone: Segmented neutrophils/100 WBC (Bld) 64 % 36 - 65 % [employer] Work Phone: Segs [employer] 7.42 [employer] Work Phone: WBC (Bld) [#/Vol] 11.7 10*3/uL High [employer] Work Phone: WBC (Bld) [#/Vol] NOT REPORTED Little1 Phone: [employer] Work Phone: CBC with Diffon 12-07-2020 Abs. Basophil 0.04 k/uL Normal 0.00-0.20 [facility] Comment on above: Performed By: #### C DP, HCG, BMP #### [place] [address] [employer]: Lloyd Vela MD Abs.Imm.Granulocyte 0.05 k/uL Normal 0.00-0.30 [facility] Comment on above: Performed By: #### C DP, HCG, BMP #### [place] [address] [employer]: Lloyd Vela MD Abs.Neutrophil (Seg) 7.42 k/uL Normal 1.50-8.10 [facility] Comment on above: Performed By: #### C DP, HCG, BMP #### [place] [facility] [employer] [address] [place] [address] [employer]: Lloyd Vela MD Basophils/100 WBC (Bld) 0 % Normal 0-2 [facility] Comment on above: Performed By: #### C DP, HCG, BMP #### [facility] [employer] [address] [place] [address] [employer]: Lloyd Vela MD Eosinophils (Bld) [#/Vol] 0.07 10*3/uL Normal 0.00-0.44 [facility] Comment on above: Performed By: #### C DP, HCG, BMP #### [facility] [employer] [address] [place] [address] [employer]: Lloyd Vela MD Eosinophils/100 WBC (Bld) 1 % Normal 1-4 [facility] Comment on above: Performed By: #### C DP, HCG, BMP #### [facility] [employer] [address] [place] [address] [employer]: Lloyd Vela MD Immature granulocytes/100 WBC (Bld) 0 % Normal 0 [facility] Comment on above: Performed By: #### C DP, HCG, BMP #### [address] [address] [employer]: Lloyd Vela MD Lymphocytes (Bld) [#/Vol] 3.21 10*3/uL Normal 1.10-3.70 [facility] Comment on above: Performed By: #### C DP, HCG, BMP #### [address] [address] [employer]: Lloyd Vela MD Lymphocytes/100 WBC (Bld) 27 % Normal 24-43 [facility] Comment on above: Performed By: #### C DP, HCG, BMP #### [address] [address] [employer]: Lloyd Vela MD Monocytes (Bld) [#/Vol] 0.94 10*3/uL Normal 0.10-1.20 [facility] Comment on above: Performed By: #### C DP, HCG, BMP #### [facility] [employer] [address] [place] [address] [employer]: Lloyd Vela MD Monocytes/100 WBC (Bld) 8 % Normal 3-12 [facility] Comment on above: Performed By: #### C DP, HCG, BMP #### [place] [facility] [address] [place] [address] [place] [address] [employer]: Lloyd Vela MD Neutrophil (Seg) 64 % Normal 36-65 [facility] Comment on above: Performed By: #### C DP, HCG, BMP #### [place] [facility] [address] [place] [address] [employer]: Lloyd Vela MD Erythrocyte distribution width (RBC) [Ratio] 12.3 % Normal 11.8-14.4 [facility] Comment on above: Performed By: #### C DP, HCG, BMP #### [place] [facility] [address] [place] [address] [employer]: Lloyd Vela MD Hematocrit (Bld) [Volume fraction] 39.2 % Normal 36.3-47.1 [facility] Comment on above: Performed By: #### C DP, HCG, BMP #### [facility] [employer] [address] [place] [address] [employer]: Lloyd Vela MD Hemoglobin (Bld) [Mass/Vol] 13.1 g/dL Normal 11.9-15.1 [facility] Comment on above: Performed By: #### C DP, HCG, BMP #### [facility] [employer] [address] [place] [address] [employer]: Lloyd Vela MD MCH (RBC) [Entitic mass] 31.0 pg Normal 25.2-33.5 [facility] Comment on above: Performed By: #### C DP, HCG, BMP #### [place] [facility] [address] [place] [address] [employer]: Lloyd Vela MD MCHC (RBC) [Mass/Vol] 33.4 g/dL Normal 28.4-34.8 [facility] Comment on above: Performed By: #### C DP, HCG, BMP #### [place] [facility] [employer] [address] [place] [address] [employer]: Lloyd Vela MD MCV (RBC) [Entitic vol] 92.9 fL Normal 82.6-102.9 [facility] Comment on above: Performed By: #### C DP, HCG, BMP #### [address] [address] [employer]: Lloyd Vela MD NRBC Automated 0.0 per 100 WBC Normal 0.0 [facility] Comment on above: Performed By: #### C DP, HCG, BMP #### [facility] [employer] [address] [place] [address] [employer]: Lloyd Vela MD Platelet mean volume (Bld) [Entitic vol] 9.0 fL Normal 8.1-13.5 [facility] Comment on above: Performed By: #### C DP, HCG, BMP #### [address] [address] [employer]: Lloyd Vela MD Platelets (Bld) [#/Vol] 314 10*3/uL Normal 138-453 [facility] Comment on above: Performed By: #### C DP, HCG, BMP #### [address] [address] [employer]: Lloyd Vela MD RBC (Bld) [#/Vol] 4.22 10*6/uL Normal 3.95-5.11 [facility] Comment on above: Performed By: #### C DP, HCG, BMP #### [facility] [employer] [address] [place] [address] [employer]: Lloyd Vela MD WBC (Bld) [#/Vol] 11.7 10*3/uL High 3.5-11.3 [facility] Comment on above: Performed By: #### C DP, HCG, BMP #### [address] [address] [employer]: Lloyd Vela MD Auto Diff Performed NOT REPORTED Normal [facility] Comment on above: Performed By: #### C DP, HCG, BMP #### [facility] [place] [address] [employer]: Lloyd Vela MD Platelet Estimate NOT REPORTED Normal [facility] Comment on above: Performed By: #### C DP, HCG, BMP #### [facility] [address] [place] [address] [employer]: Lloyd Vela MD RBC morphology finding Nom (Bld) NOT REPORTED Normal [facility] Comment on above: Performed By: #### C DP, HCG, BMP #### [facility] [address] [place] [address] [employer]: Lloyd Vela MD WBC Morphology NOT REPORTED Normal [facility] Comment on above: Performed By: #### C DP, HCG, BMP #### [facility] [address] [place] [address] [employer]: Lloyd Vela MD HCG Qualitative, SerumOrdere d By: Denton Barr on 12-07-2020 hCG Qual Negative NEGATIVE Little1 Phone: Comment on above: Specimens with hCG l evels near the threshold of the test (25 mIU/mL) may give a negative or indeterminate result. In such cases, another test should be performed with a new specimen in 48-72 hours. If early is suspected clinically in this setting, correlation with quantitative serum b-hCG level is suggested. [employer] has confirmed the use of plasma for this test. This has not been cleared or approved by the U.S. Food and Drug Administration. The FDA has determined that such clearance is not necessary. Little[facility] Phone: HCG Screen, Bloodon 12-08-19 21 HCG Screen, Blood Negative Normal NEG [facility] Comment on above: Result Comment: Spec imens with hCG levels near the threshold of the test (25 mIU/mL) may give a negative or indeterminate result. In such cases, another test should be performed with a new specimen in 48-72 hours. If early is suspected clinically in this setting, correlation with quantitative serum b-hCG level is suggested. [employer] has confirmed the use of plasma for this test. This has not been cleared or approved by the U.S. Food and Drug Administration. The FDA has determined that such clearance is not necessary. Performed By: #### C DP, HCG, BMP #### [employer] [address] [place] [address] [employer]: Lloyd Vela MD Microscopic UrinalysisOrdere d By: Denton Barr on 12-07-2020 - [employer] Work Phone: Amorphous, UA NOT REPORTED None [facility] Work Phone: Bacteria, UA FEW Abnormal None [facility] [employer] Work Phone: Casts UA NOT REPORTED [facility] Work Phone: Crystals, UA NOT REPORTED None /HPF [facility] Work Phone: Epithelial Cells UA 2 TO 5 [facility] Work Phone: Interpretation and review of laboratory results Abnormal [facility] Work Phone: Mucus, UA NOT REPORTED None [facility] [employer] Work Phone: Other Observations UA NOT REPORTED NOT REQ. [facility] [employer] Work Phone: RBC, UA 2 TO 5 [facility] Work Phone: Comment on above: Reference range defi hafsa for non-centrifuged specimen. Renal Epithelial, UA NOT REPORTED 0 /HPF [facility] Work Phone: Trichomonas, UA NOT REPORTED None [facility] Work Phone: WBC, UA 5 TO 10 [facility] [employer] Work Phone: Yeast, UA NOT REPORTED None [facility] [employer] Work Phone: [facility] [employer] Work Phone: UA w/Reflex Cultureon 2020 Bilirubin, SemiQt,Ur Negative Normal NEG [facility] Comment on above: Performed By: #### U MICAO, UAX #### [place] [facility] [address] [address] [employer]: Lloyd Vela MD Blood, Urine TRACE Abnormal NEG [facility] Comment on above: Performed By: #### U MICAO, UAX #### [facility] [address] [place] [address] [employer]: Lloyd Vela MD Clarity (U) CLEAR Normal CLEAR [facility] Comment on above: Performed By: #### U MICAO, UAX #### [address] [address] [employer]: Lloyd Vela MD Color (U) YELLOW Normal YEL [facility] Comment on above: Performed By: #### U MICAO, UAX #### [facility] [employer] [address] [place] [address] [employer]: Lloyd Vela MD Glucose Ql (U) Negative Normal NEG [facility] Comment on above: Performed By: #### U MICAO, UAX #### [address] [address] [employer]: Lloyd Vela MD Ketones Ql (U) Negative Normal NEG [facility] Comment on above: Performed By: #### U MICAO, UAX #### [address] [address] [employer]: Lloyd Vela MD Leukocyte esterase Test strip Ql (U) Negative Normal NEG [facility] Comment on above: Performed By: #### U MICAO, UAX #### [address] [address] [employer]: Lloyd Vela MD Nitrite,Ur Negative Normal NEG [facility] Comment on above: Performed By: #### U MICAO, UAX #### [place] [facility] [address] [place] [address] [employer]: Lloyd Vela MD PH,Ur 5.5 Normal 5.0-8.0 [facility] Comment on above: Performed By: #### U MICAO, UAX #### [place] [facility] [address] [place] [address] [employer]: Lloyd Vela MD Protein Ql (U) Negative Normal NEG [facility] Comment on above: Performed By: #### U MICAO, UAX #### [address] [address] [employer]: Lloyd Vela MD Spec. [place],Ur 1.020 Normal 1.005-1.03 0 [facility] Comment on above: Performed By: #### U MICAO, UAX #### [address] [address] [employer]: Lloyd Vela MD Urobilinogen,Ur Normal Normal NORM [facility] Comment on above: Performed By: #### U MICAO, UAX #### [address] [address] [employer]: Lloyd Vela MD Comment NOT REPORTED Normal [facility] Comment on above: Performed By: #### U MICAO, UAX #### [facility] [employer] [address] [place] [address] [employer]: Lloyd Vela MD Urinalysis Reflex to Culture Ordered By: Denton Barr on 12-07-2020 Bilirubin Urine Negative NEGATIVE [facility] Work Phone: Color, UA YELLOW YELLOW [facility] Work Phone: Glucose, Ur Negative NEGATIVE [place] [facility] Work Phone: Interpretation and review of laboratory results Abnormal [facility] Work Phone: Ketones Ql (U) Negative NEGATIVE [place] [facility] Work Phone: Leukocyte esterase Test strip Ql (U) Negative NEGATIVE [facility] Work Phone: Nitrite, Urine Negative NEGATIVE [place] [facility] Work Phone: pH, UA 5.5 [facility] [employer] Work Phone: Protein, UA Negative NEGATIVE [facility] [employer] Work Phone: Specific [place], UA 1.020 [facility] [employer] Work Phone: Turbidity UA CLEAR CLEAR [facility] [employer] Work Phone: Urinalysis Comments NOT REPORTED [facility] [employer] Work Phone: Urine Hgb TRACE Abnormal NEGATIVE [facility] [employer] Work Phone: Urobilinogen, Urine Normal Normal [facility] [employer] Work Phone: [facility] [employer] Work Phone: Urinalysis,Microon 1 ----- Normal [facility] Comment on above: Performed By: #### U MICAO, UAX #### [employer] [address] [place] [address] [employer]: Lloyd Vela MD Bacteria FEW Abnormal NONE [facility] Comment on above: Performed By: #### U MICAO, UAX #### [employer] [address] [place] [address] [employer]: Lloyd Vela MD Epithelial cells LM Ql (Urine sed) 2 TO 5 Normal 0-5 [facility] Comment on above: Performed By: #### U MICAO, UAX #### [employer] [address] [place] [address] [employer]: Lloyd Vela MD Urine RBC's 2 TO 5 Normal 0-4 [facility] Comment on above: Result Comment: Refe rence range defined for non-centrifuged specimen. Performed By: #### U MICAO, UAX #### [facility] [place] [address] [employer]: Lloyd Vela MD Urine WBC's 5 TO 10 Normal 0-5 [facility] Comment on above: Performed By: #### U MICAO, UAX #### [facility] [address] [place] [address] [employer]: Lloyd Vela MD Amorphous sediment LM Ql (Urine sed) NOT REPORTED Normal NONE [facility] Comment on above: Performed By: #### U MICAO, UAX #### [place] [facility] [employer] [address] [place] [address] [employer]: Lloyd Vela MD Casts NOT REPORTED Normal 0-8 [facility] Comment on above: Performed By: #### U MICAO, UAX #### [facility] [address] [place] [address] [employer]: Lloyd Vela MD Crystals LM Nom (Urine sed) NOT REPORTED Normal NONE [facility] Comment on above: Performed By: #### U MICAO, UAX #### [facility] [address] [place] [address] [employer]: Lloyd Vela MD Epithelial, Renal NOT REPORTED Normal 0 [facility] [facility] Comment on above: Performed By: #### U MICAO, UAX #### [facility] [address] [place] [id number] [employer]: Lloyd Vela MD Mucus Strands NOT REPORTED Normal NONE [facility] Comment on above: Performed By: #### U MICAO, UAX #### [facility] [address] [place] [address] [id number] [employer]: Lloyd Vela MD Other Observations NOT REPORTED Normal NREQ [facility] Comment on above: Performed By: #### U MICAO, UAX #### [facility] [address] [place] [address] [employer]: Lloyd Vela MD Trichomonas NOT REPORTED Normal NONE [facility] Comment on above: Performed By: #### U MICAO, UAX #### [facility] [address] [place] [address] [employer]: Lloyd Vela MD Yeast NOT REPORTED Normal NONE [facility] Comment on above: Performed By: #### U MICAO, UAX #### [facility] [address] [place], [place] [id number] [employer]: Lloyd Vela MD Vital Signs Date Time Vital Sign Value Performing Clinician Facility 10-05-2024 15:29-0400 Body mass index (BMI) [Ratio] 42.07 kg/m2 Dyan Lo [employer] Work Phone: [facility] 10-05-2024 15:29-0400 Body weight 104.33 kg Dyan Lo [employer] Work Phone: [facility] 10-05-2024 15:29-0400 Diastolic blood pressure 76 mm[Hg] Dyan Lo [employer] Work Phone: [facility] 10-05-2024 15:29-0400 Systolic blood pressure 118 mm[Hg] Dyan Lo [employer] Work Phone: [facility] 09-29-2024 08:51-0400 Body mass index (BMI) [Ratio] 41.7 kg/m2 Donovan Vielka DO Work Phone: [facility] 09-29-2024 08:51-0400 Body weight 103.42 kg Donovan Vielka DO Work Phone: [facility] 09-29-2024 08:51-0400 Diastolic blood pressure 70 mm[Hg] Donovan Vielka DO Work Phone: [facility] 09-29-2024 08:51-0400 Systolic blood pressure 122 mm[Hg] Donovan Vielka DO Work Phone: [facility] 09-22-2024 08:41-0400 Body mass index (BMI) [Ratio] 41.56 kg/m2 Donovan Vielka DO Work Phone: [facility] 09-22-2024 08:41-0400 Body weight 103.08 kg Donovan Vielka DO Work Phone: [facility] 09-22-2024 08:41-0400 Diastolic blood pressure 82 mm[Hg] Donovan Vielka DO Work Phone: [facility] 09-22-2024 08:41-0400 Systolic blood pressure 118 mm[Hg] Donovan Vielka DO Work Phone: [facility] 09-15-2024 09:13-0400 Body mass index (BMI) [Ratio] 41.2 kg/m2 Donovan Vielka DO Work Phone: [facility] 09-15-2024 09:13-0400 Body weight 102.17 kg Donovan Vielka DO Work Phone: [facility] 09-15-2024 09:13-0400 Diastolic blood pressure 72 mm[Hg] Donovan Vielka DO Work Phone: [facility] 09-15-2024 09:13-0400 Systolic blood pressure 124 mm[Hg] Donovan Vielka DO Work Phone: [facility] 09-08-2024 11:42-0400 Body mass index (BMI) [Ratio] 40.24 kg/m2 Donovan Vielka DO Work Phone: [facility] 09-08-2024 11:42-0400 Body weight 99.79 kg Donovan Vielka DO Work Phone: [facility] 09-08-2024 11:42-0400 Diastolic blood pressure 72 mm[Hg] Donovan Vielka DO Work Phone: [facility] 09-08-2024 11:42-0400 Systolic blood pressure 120 mm[Hg] Donovan Vielka DO Work Phone: [facility] 09-05-2024 16:37-0400 Body mass index (BMI) [Ratio] 39.69 kg/m2 Gabriela Monzon [employer] Work Phone: [facility] 09-05-2024 16:37-0400 Body temperature 97.39 [degF] Gabriela Monzon [employer] Work Phone: [facility] 09-05-2024 16:37-0400 Body weight 98.43 kg Gabriela Monzon [employer] Work Phone: [facility] 09-05-2024 16:37-0400 Diastolic blood pressure 80 mm[Hg] Gabriela Monzon [employer] Work Phone: [facility] 09-05-2024 16:37-0400 Heart rate 70 /min Gabriela Monzon [employer] Work Phone: [facility] 09-05-2024 16:37-0400 SaO2% (BldA) [Mass fraction] 98 % Gabriela Monzon [employer] Work Phone: [facility] 09-05-2024 16:37-0400 Systolic blood pressure 124 mm[Hg] Gabriela Monzon [employer] Work Phone: [facility] 08-25-2024 09:06-0400 Body mass index (BMI) [Ratio] 39.69 kg/m2 America GHOTRA Work Phone: [facility] 08-25-2024 09:06-0400 Body weight 98.43 kg America GHOTRA Work Phone: [facility] 08-25-2024 09:06-0400 Diastolic blood pressure 70 mm[Hg] America GHOTRA Work Phone: [facility] 08-25-2024 09:06-0400 Systolic blood pressure 118 mm[Hg] America GHOTRA Work Phone: [facility] 07-27-2024 08:56-0500 Body mass index (BMI) [Ratio] 39.29 kg/m2 America Thompson PA Work Phone: [facility] 07-27-2024 08:56-0500 Body weight 97.43 kg America Herediaey PA Work Phone: [facility] 07-27-2024 08:56-0500 Diastolic blood pressure 58 mm[Hg] America Thompson PA Work Phone: [facility] 07-27-2024 08:56-0500 Systolic blood pressure 120 mm[Hg] America Thompson PA Work Phone: [facility] 07-12-2024 10:24-0500 Body mass index (BMI) [Ratio] 39.58 kg/m2 Donovan Vielka DO Work Phone: [facility] 07-12-2024 10:24-0500 Body weight 98.16 kg Donovan Vielka DO Work Phone: [facility] 07-12-2024 10:24-0500 Diastolic blood pressure 60 mm[Hg] Donovan Vielka DO Work Phone: [facility] 07-12-2024 10:24-0500 Systolic blood pressure 114 mm[Hg] Donovan Vielka DO Work Phone: [facility] 06-09-2024 09:14-0500 Body mass index (BMI) [Ratio] 39.76 kg/m2 Donovan Vielka DO Work Phone: [facility] 06-09-2024 09:14-0500 Body weight 98.61 kg Donovan Vielka DO Work Phone: [facility] 06-09-2024 09:14-0500 Diastolic blood pressure 72 mm[Hg] Donovan Vielka DO Work Phone: [facility] 06-09-2024 09:14-0500 Systolic blood pressure 112 mm[Hg] Donovan Vielka DO Work Phone: [facility] 05-10-2024 10:05-0500 Body mass index (BMI) [Ratio] 39.51 kg/m2 America Thompson PA Work Phone: [facility] 05-10-2024 10:05-0500 Body weight 97.98 kg America Thompson PA Work Phone: [facility] 05-10-2024 10:05-0500 Diastolic blood pressure 72 mm[Hg] America Thompson PA Work Phone: [facility] 05-10-2024 10:05-0500 Systolic blood pressure 120 mm[Hg] America Thompson PA Work Phone: [facility] 04-25-2024 09:02-0500 Body mass index (BMI) [Ratio] 39.32 kg/m2 Peng Olivares [employer] Work Phone: [facility] 04-25-2024 09:02-0500 Body temperature 97.5 [degF] Peng Olivares [employer] Work Phone: [facility] 04-25-2024 09:02-0500 Body weight 97.52 kg Peng Olivares [employer] Work Phone: [facility] 04-25-2024 09:02-0500 Diastolic blood pressure 74 mm[Hg] Peng Olivares [employer] Work Phone: [facility] 04-25-2024 09:02-0500 Heart rate 93 /min Peng Olivares [employer] Work Phone: [facility] 04-25-2024 09:02-0500 SaO2% (BldA) [Mass fraction] 98 % Peng Olivares [employer] Work Phone: [facility] 04-25-2024 09:02-0500 Systolic blood pressure 118 mm[Hg] Peng Olivares [employer] Work Phone: [facility] 04-11-2024 10:26-0500 Body mass index (BMI) [Ratio] 39.43 kg/m2 Donovan Vielka DO Work Phone: [facility] 04-11-2024 10:26-0500 Body weight 97.79 kg Donovan Vielka DO Work Phone: [facility] 04-11-2024 10:26-0500 Diastolic blood pressure 70 mm[Hg] Donovan Vielka DO Work Phone: [facility] 04-11-2024 10:26-0500 Systolic blood pressure 124 mm[Hg] Donovan Vielka DO Work Phone: [facility] 03-24-2024 18:54-0400 Body temperature 98.24 [degF] [facility] 03-24-2024 18:54-0400 Diastolic blood pressure 68 mm[Hg] [facility] 03-24-2024 18:54-0400 Heart rate 57 /min [facility] 03-24-2024 18:54-0400 Respiratory rate 16 /min [facility] 03-24-2024 18:54-0400 SaO2% (BldA) [Mass fraction] 100 % [facility] 03-24-2024 18:54-0400 Systolic blood pressure 128 mm[Hg] [facility] 03-10-2024 13:08-0400 Body mass index (BMI) [Ratio] 39.78 kg/m2 [facility] 03-10-2024 13:08-0400 Body weight 98.66 kg [facility] 03-10-2024 13:08-0400 Diastolic blood pressure 72 mm[Hg] [facility] 03-10-2024 13:08-0400 Systolic blood pressure 114 mm[Hg] [facility] 02-04-2024 13:34-0400 Body height 157.48 cm [employer] Georgie Fareed Work Phone: [facility] 02-04-2024 13:34-0400 Body mass index (BMI) [Ratio] 39.2 kg/m2 [employer] Georgie Fareed Work Phone: [facility] 02-04-2024 13:34-0400 Body temperature 98.1 [degF] [employer] Georgie Fareed Work Phone: [facility] 02-04-2024 13:34-0400 Body weight 97.18 kg [employer] C[employer] Georgie Fareed Work Phone: [facility] 02-04-2024 13:34-0400 Diastolic blood pressure 77 mm[Hg] [employer] Georgie Fareed Work Phone: [facility] 02-04-2024 13:34-0400 Heart rate 77 /min [employer] Georgie Fareed Work Phone: [facility] 02-04-2024 13:34-0400 SaO2% (BldA) [Mass fraction] 98 % [employer] C[employer] Georgie Fareed Work Phone: [facility] 02-04-2024 13:34-0400 Systolic blood pressure 114 mm[Hg] [employer] Georgie Fareed Work Phone: [facility] 01-15-2024 21:31-0400 Body temperature 99.14 [degF] [facility] 01-15-2024 21:31-0400 Diastolic blood pressure 86 mm[Hg] [facility] 01-15-2024 21:31-0400 Heart rate 66 /min [facility] 01-15-2024 21:31-0400 Respiratory rate 18 /min [facility] 01-15-2024 21:31-0400 SaO2% (BldA) [Mass fraction] 98 % [facility] 01-15-2024 21:31-0400 Systolic blood pressure 131 mm[Hg] [facility] 11-18-2023 09:57-0400 Body height 157.48 cm MD Jelly Chery Work Phone: [facility] 11-18-2023 09:57-0400 Body mass index (BMI) [Ratio] 38.5 kg/m2 MD Jelly Chery Work Phone: [facility] 11-18-2023 09:57-0400 Body temperature 97.5 [degF] MD Jelly Chery Work Phone: [facility] 11-18-2023 09:57-0400 Body weight 95.7 kg MD Jelly Chery Work Phone: [facility] 11-18-2023 09:57-0400 Diastolic blood pressure 72 mm[Hg] MD Jelly Chery Work Phone: [facility] 11-18-2023 09:57-0400 Heart rate 51 /min MD Jelly Chery Work Phone: [facility] 11-18-2023 09:57-0400 Respiratory rate 18 /min MD Jelly Chery Work Phone: [facility] 11-18-2023 09:57-0400 SaO2% (BldA) [Mass fraction] 98 % MD Jelly Chery Work Phone: [facility] 11-18-2023 09:57-0400 Systolic blood pressure 117 mm[Hg] MD Jelly Chery Work Phone: [facility] 10-30-2023 18:56-0400 Body height 157.48 cm MD Jelly Chery Work Phone: [facility] 10-30-2023 18:56-0400 Body mass index (BMI) [Ratio] 35 kg/m2 MD Jelly Chery Work Phone: [facility] 10-30-2023 18:56-0400 Body temperature 97.8 [degF] MD Jelly Chery Work Phone: [facility] 10-30-2023 18:56-0400 Body weight 87 kg MD Jelly Chery Work Phone: [facility] 10-30-2023 18:56-0400 Diastolic blood pressure 86 mm[Hg] MD Jelly Chery Work Phone: [facility] 10-30-2023 18:56-0400 Heart rate 103 /min MD Jelly Chery Work Phone: [facility] 10-30-2023 18:56-0400 Respiratory rate 16 /min MD Jelly Chery Work Phone: [facility] 10-30-2023 18:56-0400 SaO2% (BldA) [Mass fraction] 98 % MD Jelly Chery Work Phone: [facility] 10-30-2023 18:56-0400 Systolic blood pressure 125 mm[Hg] MD Jelly Chery Work Phone: [facility] 09-29-2023 10:46-0400 Body height 157.48 cm MD Jelly Chery Work Phone: [facility] 09-29-2023 10:46-0400 Body mass index (BMI) [Ratio] 35.1 kg/m2 MD Jelly Chery Work Phone: [facility] 09-29-2023 10:46-0400 Body temperature 97.7 [degF] MD Jelly Chery Work Phone: [facility] 09-29-2023 10:46-0400 Body weight 87.08 kg MD Jelly Chery Work Phone: [facility] 09-29-2023 10:46-0400 Diastolic blood pressure 78 mm[Hg] MD Jelly Chery Work Phone: [facility] 09-29-2023 10:46-0400 Heart rate 64 /min MD Jelly Chery Work Phone: [facility] 09-29-2023 10:46-0400 SaO2% (BldA) [Mass fraction] 98 % MD Jelly Chery Work Phone: [facility] 09-29-2023 10:46-0400 Systolic blood pressure 115 mm[Hg] MD Jelly Chery Work Phone: [facility] 09-07-2023 14:31-0400 Body height 157.48 cm MD Jelly Chery Work Phone: [facility] 09-07-2023 14:31-0400 Body mass index (BMI) [Ratio] 37.6 kg/m2 MD Jelly Chery Work Phone: [facility] 09-07-2023 14:31-0400 Body temperature 98.2 [degF] MD Jelly Chery Work Phone: [facility] 09-07-2023 14:31-0400 Body weight 93.44 kg MD Jelly Chery Work Phone: [facility] 09-07-2023 14:31-0400 Diastolic blood pressure 72 mm[Hg] MD Jelly Chery Work Phone: [facility] 09-07-2023 14:31-0400 Heart rate 57 /min MD Jelly Chery Work Phone: [facility] 09-07-2023 14:31-0400 Systolic blood pressure 116 mm[Hg] MD Jelly Chery Work Phone: [facility] 07-27-2023 14:08-0500 Body height 157.48 cm MD Jelly Chery Work Phone: [facility] 07-27-2023 14:08-0500 Body mass index (BMI) [Ratio] 37.6 kg/m2 MD Jelly Chery Work Phone: [facility] 07-27-2023 14:08-0500 Body temperature 98.2 [degF] MD Jelly Chery Work Phone: [facility] 07-27-2023 14:08-0500 Body weight 93.44 kg MD Jelly Chery Work Phone: [facility] 07-27-2023 14:08-0500 Diastolic blood pressure 80 mm[Hg] MD Jelly Chery Work Phone: [facility] 07-27-2023 14:08-0500 Heart rate 65 /min MD Jelly Chery Work Phone: [facility] 07-27-2023 14:08-0500 Systolic blood pressure 127 mm[Hg] MD Jelly Chery Work Phone: [facility] 07-05-2023 12:29-0500 Body temperature 96.49 [degF] Rad Sims DO Work Phone: [facility] 07-05-2023 12:29-0500 Heart rate 67 /min Rad Sims DO Work Phone: [facility] 07-05-2023 12:29-0500 SaO2% (BldA) [Mass fraction] 99 % Rad Sims DO Work Phone: [facility] 06-29-2023 16:07-0500 Body temperature 97.3 [degF] Miguel Malena PA-C Work Phone: [facility] 06-29-2023 16:07-0500 Diastolic blood pressure 67 mm[Hg] Miguel Malena PA-C Work Phone: [facility] 06-29-2023 16:07-0500 Heart rate 68 /min Miguel Malena PA-C Work Phone: [facility] 06-29-2023 16:07-0500 Systolic blood pressure 121 mm[Hg] Miguel Webster PA-C Work Phone: [facility] 01-11-2023 22:27-0400 Body height 157.48 cm MD Jelly Chery Work Phone: [facility] 01-11-2023 22:27-0400 Body temperature 98.5 [degF] MD Jelly Chery Work Phone: [facility] 01-11-2023 22:27-0400 Body weight 88.45 kg MD Jelly Chery Work Phone: [facility] 01-11-2023 22:27-0400 Diastolic blood pressure 85 mm[Hg] MD Jelly Chery Work Phone: [facility] 01-11-2023 22:27-0400 Heart rate 65 /min MD Jelly Chery Work Phone: [facility] 01-11-2023 22:27-0400 Respiratory rate 18 /min MD Jelly Chery Work Phone: [facility] 01-11-2023 22:27-0400 SaO2% (BldA) [Mass fraction] 100 % MD Jelly Chery Work Phone: [facility] 01-11-2023 22:27-0400 Systolic blood pressure 144 mm[Hg] MD Jelly Chery Work Phone: [facility] 10-17-2022 18:45-0400 Body height 154.94 cm Nasreen Elaina Other [employer] Other 10-17-2022 18:45-0400 Body mass index (BMI) [Ratio] 35.59 kg/m2 Nasreen Delaney Other [employer] Other 10-17-2022 18:45-0400 Body temperature 98.2 [degF] Nasreen Kenyonmond Other [employer] Other 10-17-2022 18:45-0400 Body weight 85.46 kg Nasreen Kenyonmond Other [employer] Other 10-17-2022 18:45-0400 Respiratory rate 18 /min Nasreen Kenyonmond Other [employer] Other 10-17-2022 18:45-0400 SaO2% (BldA) [Mass fraction] 98 % Nasreen Kenyonmond Other [employer] Other 07-20-2022 14:00-0500 Diastolic blood pressure 66 mm[Hg] [facility] 07-20-2022 14:00-0500 Heart rate 79 /min [facility] 07-20-2022 14:00-0500 Hourly Rounding [facility] 07-20-2022 14:00-0500 Mean blood pressure 81 mm[Hg] [facility] 07-20-2022 14:00-0500 Promise to Return [facility] 07-20-2022 14:00-0500 SaO2% (BldA) [Mass fraction] 97 % [facility] 07-20-2022 14:00-0500 Systolic blood pressure 110 mm[Hg] [facility] 07-20-2022 01:00-0500 Diastolic blood pressure 72 mm[Hg] [facility] 07-20-2022 01:00-0500 Heart rate 81 /min [facility] 07-20-2022 01:00-0500 Hourly Rounding [facility] 07-20-2022 01:00-0500 Mean blood pressure 89 mm[Hg] [facility] 07-20-2022 01:00-0500 Promise to Return [facility] 07-20-2022 01:00-0500 SaO2% (BldA) [Mass fraction] 99 % [facility] 07-20-2022 01:00-0500 Systolic blood pressure 122 mm[Hg] [facility] 07-20-2022 00:00-0500 Heart rate 83 /min [facility] 07-20-2022 00:00-0500 Hourly Rounding [facility] 07-20-2022 00:00-0500 Mean blood pressure 84 mm[Hg] [facility] 07-20-2022 00:00-0500 Promise to Return [facility] 07-20-2022 00:00-0500 SaO2% (BldA) [Mass fraction] 96 % [facility] 07-20-2022 00:00-0500 Systolic blood pressure 107 mm[Hg] [facility] 07-19-2022 21:47-0500 Body temperature 98.6 [degF] [facility] 07-19-2022 21:47-0500 Heart rate 113 /min [facility] 07-19-2022 21:47-0500 Respiratory rate 16 /min [facility] 07-08-2022 22:00-0500 Diastolic blood pressure 68 mm[Hg] [facility] 07-08-2022 22:00-0500 Respiratory rate 17 /min [facility] 07-08-2022 22:00-0500 SaO2% (BldA) [Mass fraction] 95 % [facility] 07-08-2022 22:00-0500 Systolic blood pressure 110 mm[Hg] [facility] 07-08-2022 21:43-0500 Body temperature 98.6 [degF] [facility] 07-08-2022 21:43-0500 Diastolic blood pressure 69 mm[Hg] [facility] 07-08-2022 21:43-0500 Heart rate 94 /min [facility] 07-08-2022 21:43-0500 Mean blood pressure 82 mm[Hg] [facility] 07-08-2022 21:43-0500 Systolic blood pressure 108 mm[Hg] [facility] 07-08-2022 21:00-0500 SaO2% (BldA) [Mass fraction] 93 % [facility] 07-08-2022 20:00-0500 Body temperature 99.5 [degF] [facility] 07-08-2022 20:00-0500 Diastolic blood pressure 58 mm[Hg] R[facility] 07-08-2022 20:00-0500 Heart rate 110 /min jR Due [facility] 07-08-2022 20:00-0500 Mean blood pressure 74 mm[Hg] [facility] 07-08-2022 20:00-0500 SaO2% (BldA) [Mass fraction] 99 % [facility] 07-08-2022 20:00-0500 Systolic blood pressure 105 mm[Hg] Rj [facility] 07-08-2022 17:47-0500 Heart rate 121 /min Rj [facility] 06-23-2022 18:00-0500 Body height 154.94 cm Asim Palma Other [employer] Other 06-23-2022 18:00-0500 Body mass index (BMI) [Ratio] 34.01 kg/m2 Asim Palma Other [employer] Other 06-23-2022 18:00-0500 Body temperature 97.8 [degF] Asim Palma Other [employer] Other 06-23-2022 18:00-0500 Body weight 81.65 kg Asim Palma Other [employer] Other 06-23-2022 18:00-0500 Respiratory rate 18 /min Asim Palma Other [employer] Other 06-23-2022 18:00-0500 SaO2% (BldA) [Mass fraction] 98 % Asim Palma Other [employer] Other 06-18-2022 18:30-0500 Body height 154.94 cm Belia Aguero Other [employer] Other 06-18-2022 18:30-0500 Body mass index (BMI) [Ratio] 34.01 kg/m2 Belia Aguero Other [employer] Other 06-18-2022 18:30-0500 Body temperature 98 [degF] Belia Aguero Other [employer] Other 06-18-2022 18:30-0500 Body weight 81.65 kg Belia Aguero Other [employer] Other 06-18-2022 18:30-0500 Respiratory rate 18 /min Belia Aguero Other [employer] Other 06-18-2022 18:30-0500 SaO2% (BldA) [Mass fraction] 98 % Belia Aguero Other [employer] Other 04-16-2022 18:15-0500 Body height 154.94 cm Belia Aguero Other [employer] Other 04-16-2022 18:15-0500 Body mass index (BMI) [Ratio] 34.01 kg/m2 Belia Aguero Other [employer] Other 04-16-2022 18:15-0500 Body temperature 98.1 [degF] Belia Aguero Other [employer] Other 04-16-2022 18:15-0500 Body weight 81.65 kg Belia Aguero Other [employer] Other 04-16-2022 18:15-0500 Respiratory rate 18 /min Belia Aguero Other [employer] Other 04-16-2022 18:15-0500 SaO2% (BldA) [Mass fraction] 99 % Belia Aguero Other [employer] Other 10-28-2022 18:00-0400 Body height 154.94 cm Belia Vázquez Other [employer] Other 03-21-2022 18:00-0400 Body mass index (BMI) [Ratio] 34.01 kg/m2 Belia Vázquez Other [employer] Other 03-21-2022 18:00-0400 Body temperature 98.3 [degF] Belia Vázquez Other [employer] Other 03-21-2022 18:00-0400 Body weight 81.65 kg Belia Vázquez Other [facility] Other 03-21-2022 18:00-0400 Diastolic blood pressure 79 mm[Hg] Belia Vázquez Other [employer] Other 03-21-2022 18:00-0400 Respiratory rate 18 /min Belia Vázquez Other [facility] [employer] Other 03-21-2022 18:00-0400 SaO2% (BldA) [Mass fraction] 100 % Belia Vázquez Other [facility] [employer] Other 03-21-2022 18:00-0400 Systolic blood pressure 123 mm[Hg] Belia Vázquez Other [facility] [employer] Other 07-20-2021 13:15-0500 Body height 154.94 cm Asim Powder Horn Other [facility] Other 07-20-2021 13:15-0500 Body mass index (BMI) [Ratio] 34.01 kg/m2 Asim Minerva Other [employer] Other 07-20-2021 13:15-0500 Body temperature 98.4 [degF] Asim Palma Other [facility] [employer] Other 07-20-2021 13:15-0500 Body weight 81.65 kg Asim Palma Other [facility] [employer] Other 07-20-2021 13:15-0500 Diastolic blood pressure 66 mm[Hg] Asim Palma Other [facility] [employer] Other 07-20-2021 13:15-0500 Respiratory rate 18 /min Asim Palma Other [facility] Other 07-20-2021 13:15-0500 SaO2% (BldA) [Mass fraction] 97 % Asim Palma Other [facility] [employer] Other 07-20-2021 13:15-0500 Systolic blood pressure 102 mm[Hg] Asim Palma Other [employer] Other 12-07-2020 19:25-0400 Body height 157.5 cm Simone Manley MD Work Phone: [facility] Work Phone: 12-07-2020 19:25-0400 Body mass index (BMI) [Ratio] 39.51 kg/m2 Simone Manley MD Work Phone: [facility] Work Phone: 12-07-2020 19:25-0400 Body temperature 98.91 [degF] Simone Manley MD Work Phone: [facility] Phone: 12-07-2020 19:25-0400 Body weight 97.98 kg Simone Manley MD Work Phone: [facility] Work Phone: 12-07-2020 19:25-0400 Diastolic blood pressure 81 mm[Hg] Simone Manley MD Work Phone: [facility] Work Phone: 12-07-2020 19:25-0400 Heart rate 71 /min Simone Manley MD Work Phone: [facility] Work Phone: 12-07-2020 19:25-0400 Respiratory rate 22 /min Simone Manley MD Work Phone: [facility] Work Phone: 12-07-2020 19:25-0400 SaO2% (BldA) [Mass fraction] 99 % Simone Manley MD Work Phone: [facility] Work Phone: 12-07-2020 19:25-0400 Systolic blood pressure 128 mm[Hg] Simone Manley MD Work Phone: [facility] Work Phone: Encounters Encounter Date Encounter Type Care Provider Facility Start: 10-08-2024 End: 10-08-2024 Clinisync Result Encounter Generic External Data Provider [facility] External Department Unsolicited Start: 10-08-2024 End: 10-08-2024 Clinisync Result Encounter Generic External Data Provider [facility] External Department Unsolicited Start: 10-05-2024 End: 10-05-2024 ambulatory DYAN LO Not Available Start: 10-05-2024 End: 10-05-2024 flow sheet Dyan Lo [employer] Work Phone: [facility] Comment on above: Third trimester preg debra; 38 weeks gestation of Start: 10-05-2024 End: 10-05-2024 Bamboo flowsheet Dyan Lo [employer] Work Phone: [facility] Start: 10-05-2024 End: 10-05-2024 Bamboo flowsheet Dyan Lo [employer] Work Phone: [facility] Start: 10-03-2024 [...] OB Start: 09-22-2024 End: 09-22-2024 flow sheet Donovan Vielka DO Work Phone: [...] 09-07-2024 End: 09-07-2024 Follow-up encounter Peng Olivares [employer]ENER Work Phone: [facility] Start: 09-05-2024 End: 09-05-2024 Office outpatient visit 25 minutes Gabriela Monzon [employer] Work Phone: [facility] Comment on above: 34 weeks gestation o f (Primary Dx); Pharyngitis, unspecified etiology; Coated tongue Start: 09-05-2024 End: 09-05-2024 ambulatory GABRIELA MONZON Not Available Start: 08-25-2024 End: 08-25-2024 Bamboo flowsheet America GHOTRA Work Phone: [facility] Start: 08-25-2024 End: 08-25-2024 Bamboo flowsheet America GHOTRA Work Phone: [facility] Start: 08-25-2024 End: 08-25-2024 ambulatory AMERICA THOMPSON Not Available Start: 08-25-2024 End: 08-25-2024 flow sheet America GHOTRA Work Phone: [facility] Comment on above: Third trimester preg debra; 32 weeks gestation of Start: 08-09-2024 End: 08-09-2024 ambulatory DONOVAN VIELKA Not Available Start: 07-27-2024 End: 07-27-2024 Bamboo flowsheet America GHOTRA Work Phone: [facility] Start: 07-27-2024 End: 07-27-2024 Bamboo flowsheet America GHOTRA Work Phone: [facility] Start: 07-27-2024 End: 07-27-2024 Office outpatient visit 15 minutes America GHOTRA Work Phone: [facility] Comment on above: Third trimester preg debra; 28 weeks gestation of ; size inconsistent with dates Start: 07-27-2024 End: 07-27-2024 ambulatory AMERICA THOMPSON Not Available Start: 07-23-2024 End: 07-23-2024 Clinisync Result Encounter Donovan Vielka DO Work Phone: [facility] External Department Unsolicited Start: 07-23-2024 End: [...] 06-17-2024 Emergency department patient visit Sergeleona Husainjessica Facility:[facility] Start: 06-14-2024 End: 06-14-2024 [...] Office outpatient visit 25 minutes Peng Olivares FR[employer]ENER Work Phone: [facility] Comment on [...] End: 03-28-2024 Telephone encounter Peng Lopez Marshall FR[employer] STRA[employer]ENER Work Phone: [facility] Start: 03-24-2024 End: 03-24-2024 Emergency department patient visit Chichi [facility] Start: 03-15-2024 End: 03-15-2024 ambulatory DYAN JE Not Available Start: 03-10-2024 End: 03-10-2024 Office outpatient visit 5 minutes [facility] Vielka Nurse [facility] Comment on above: GA: 8w5d Start: 03-10-2024 End: 03-10-2024 ambulatory DYAN JE Not Available Start: 02-11-2024 End: 02-17-2024 Orders Only Peng Olivares [employer]ENER Work Phone: [facility] Unsolicited Start: 02-11-2024 End: 02-11-2024 Telephone encounter Peng John Olivares FR[employer] STRA[employer]ENER Work Phone: [facility] Start: 02-04-2024 End: 02-04-2024 ambulatory CE[employer] CUTTER Georgie Fareed Work Phone: [facility] Work Phone: Start: 02-04-2024 End: 02-04-2024 Patient encounter procedure CELLULAR P[employer] CUTTER Georgie Fareed Work Phone: [facility] Work Phone: Start: 01-15-2024 End: 01-15-2024 Emergency department patient visit Roman [facility] Start: 01-11-2024 End: 01-14-2024 Orders Only Matti Sims DO Work Phone: [facility] Department Unsolicited Start: 01-11-2024 End: 01-11-2024 ambulatory MATTI Crissy [facility] Not Available Start: 01-03-2024 End: 01-03-2024 Emergency department patient visit JELLY CHERY [facility] Start: 11-24-2023 End: 11-24-2023 ambulatory MD Jelly Chery Work Phone: [facility] Work Phone: Start: 11-24-2023 End: 11-24-2023 Patient encounter procedure MD Jelly Chery Work Phone: [facility] Work Phone: Start: 11-18-2023 End: 11-18-2023 Departed Referred MD Jelly Chery Work Phone: [facility] [place] Work Phone: Start: 11-18-2023 End: 11-18-2023 ambulatory MD Jelly Chery Work Phone: [facility] Work Phone: Start: 11-18-2023 End: 11-18-2023 Patient encounter procedure MD Jelly Chery Work Phone: [facility] Work Phone: Start: 10-30-2023 End: 10-30-2023 ambulatory MD Jelly Chery Work Phone: [facility] Work Phone: Start: 10-30-2023 End: 10-30-2023 Patient encounter procedure MD Jelly Chery Work Phone: [facility] Work Phone: Start: 10-20-2023 End: 10-20-2023 ambulatory JELLY CHERY Not Available Start: 10-13-2023 End: 10-13-2023 ambulatory MD Jelly Chery Work Phone: [facility] Work Phone: Start: 10-13-2023 End: 10-13-2023 Patient encounter procedure MD Jelly Chery Work Phone: [facility] Work Phone: Start: 09-29-2023 End: 09-29-2023 ambulatory MD Jelly Chery Work Phone: [facility] Work Phone: Start: 09-29-2023 End: 09-29-2023 Patient encounter procedure MD Jelly Chery Work Phone: [facility] [place] Work Phone: Start: 09-07-2023 End: 09-07-2023 ambulatory MD Jelly Chery Work Phone: [facility] Work Phone: Start: 09-07-2023 End: 09-07-2023 Patient encounter procedure MD Jelly Chery Work Phone: [facility] Work Phone: Start: 07-27-2023 End: 07-27-2023 ambulatory Simone Bahena Facility:[facility] Start: 07-27-2023 End: 07-27-2023 Patient encounter procedure MD Jelly Chery Work Phone: [facility] Work Phone: Start: 07-05-2023 End: 07-05-2023 Office outpatient visit 25 minutes Rad Sims DO Work Phone: [facility] Comment on above: Recurrent acute supp urative otitis media without spontaneous rupture of tympanic membrane of both sides (Primary Dx); Pharyngitis, unspecified etiology Start: 06-29-2023 End: 06-30-2023 ambulatory MIGUEL WILMINGTON Facility:[facility] Start: 06-29-2023 End: 06-29-2023 Subsequent hospital visit by physician Xr [facility] Comment on above: Right hand pain [M79 .641] Start: 06-29-2023 End: 06-29-2023 Patient encounter procedure Miguel Ang PA-C Work Phone: Plastic Surgery Comment on above: Right hand pain (Jazzmine rena Dx) Start: 04-03-2023 End: 04-03-2023 Patient encounter procedure MD Jelly Chery Work Phone: [facility] Start: 04-03-2023 End: 04-03-2023 ambulatory MD Jelly Chery Work Phone: [facility] Work Phone: Start: 02-24-2023 End: 02-25-2023 ambulatory MARISA [facility] Start: 02-17-2023 ambulatory JAISON Zeng [facility] Start: 01-11-2023 End: 01-11-2023 Emergency department patient visit MD Jelly Chery Work Phone: [facility] Work Phone: Start: 10-17-2022 End: 10-17-2022 ambulatory Nasreen Delaney Other [employer] Other Start: 10-17-2022 Office outpatient vi sit 15 minutes Nasreen Delaney [facility] Start: 07-19-2022 End: 07-20-2022 Emergency department patient visit Roman Syed [facility] Start: 07-08-2022 End: 07-08-2022 Emergency department patient visit Rj Pink [facility] Start: 06-23-2022 End: 06-23-2022 ambulatory Asim Palma Other [facility] [employer] Other Start: 06-23-2022 Office outpatient vi sit 15 minutes Asim Palma [facility] Start: 06-18-2022 End: 06-18-2022 ambulatory Belia Aguero Other [facility] [employer] Other Start: 06-18-2022 Office outpatient vi sit 15 minutes Belia Aguero [facility] Start: 05-23-2022 End: 05-23-2022 ambulatory Asim Minerva Other [facility] [employer] Other Start: 05-23-2022 Telephone encounter Asim Marcum [facility] Start: 04-16-2022 End: 04-16-2022 ambulatory Belia Aguero Other [facility] Other Start: 04-16-2022 Office outpatient vi sit 15 minutes Belia Aguero [facility] Start: 03-21-2022 End: 03-22-[address] HAWA WHELAN [facility] Other Start: 03-21-2022 Office outpatient vi sit 15 minutes Belia Vázquez [facility] Start: 11-17-2021 End: 11-17-[address] JULY QUEVEDO Facility:[facility] Start: 07-20-2021 End: 07-20-2021 ambulatory Asim Minerva Other [facility] [employer] Other Start: 07-20-2021 Office outpatient vi sit 25 minutes Asim Powder Horn [facility] Start: 03-29-2021 End: 03-30-2021 ambulatory CONCHITA MEANS Facility:[facility] Start: 12-07-2020 End: 12-08-2020 Emergency department patient visit SIMONE MANLEY [facility] Start: 12-07-2020 End: 12-08-2020 Emergency department patient visit Simone Manley MD Work Phone: [facility] ED Comment on above: Trigger point [...] Work Phone: Start: 09-23-2024 [facility] UA (CLEAN/CATCH) GEOPHYSICAL PROSPECTOR/MICRO IF IND. Donovan Vielka DO Work Phone: [...] cleared fda spec home use Gabriela Monzon [employer]ENER Work Phone: Start: 09-05-2024 Sars-cov-2 detection by dna/rna Gabriela Monzon FR[employer]ENER Work Phone: Start: 09-05-2024 End: 09-05-2024 Infectious agent dna/rna influenza 1st 2 types Gabriela Monzon FR[employer] STRA[employer]ENER Work Phone: Start: 08-25-2024 Urnls dip stick/tablet [...] Start: 04-04-2024 TB DRUG SCREEN RAPID (URINE) oDnovan Vora DO Work Phone: Start: 03-10-2024 Urnls dip stick/tablet rgnt non-auto w/o micrscp Donovan Vora DO Work Phone: Start: 02-11-2024 Gonadotropin chorionic quantitative Peng Olivares FR[employer]ENER Work Phone: Start: 01-11-2024 Cytp cerv/vag auto [...] dip stick/tablet rgnt auto w/o microscopy Denton aCrson Barr MD Work Phone: Start: 12-07-2020 Basic metabolic panel calcium total Denton Carson Barr MD Work Phone: None (qualifier value) [facility] Plan of Treatment Date Care Activity Detail Author Start: 11-10-2029 DTaP/Tdap/Td vaccine (9 - Td or Tdap) DTaP/Tdap/Td vaccine (9 - Td or Tdap) [facility] Work Phone: Start: 11-10-2029 Urine microalbumin profile DTaP,Tdap,Td Vaccine (9 - Td or Tdap) [facility] Start: 01-11-2025 End: 01-11-2025 Patient encounter procedure 01/11/2025 10:45 AM EDT Office Visit [facility] [address] [place] [phone] Matti Sims, DO [address] [place] [address] [facility] Start: 11-15-2024 End: 11-15-2024 Patient encounter procedure [facility] Start: 10-18-2024 End: 10-18-2024 Patient encounter procedure [facility] Start: 10-12-2024 End: 10-12-2024 Patient encounter procedure 10/12/2024 3:50 PM EDT Routine [facility] [address] [place] [address] Donovan Vora, DO [address] [place], [place] [phone] [facility] Start: 10-05-2024 End: 10-05-2024 Patient encounter procedure 10/05/2024 3:20 PM EDT Routine [facility] [address] [place] [phone] Dyan Lo, FRAME STRAIGHTENER [address] [facility] [address] [place] [address] [facility] Start: 09-29-2024 End: 04-01-2025 US [...] EDT Ancillary Procedure [facility] [address] [facility] [place] [address] [facility] Start: 09-15-2024 End: [...] [facility] [address] [place] [phone] Donovan Vora, DO [facility] [place] [address] [facility] Start: 09-08-2024 End: 09-08-2024 Patient encounter procedure [facility] Comment on above: Arrived Start: 08-09-2024 End: 08-09-2024 Patient encounter procedure 08/09/2024 9:40 AM EDT Routine [facility] [address] [place] [phone] Donovan Vora, DO [address] [place] [address] [facility] Start: 08-09-2024 End: 08-09-2024 Professional / ancillary services management 08/09/2024 9:00 AM EDT Ancillary Procedure [facility] [address] [place] [phone] [facility] Start: 07-27-2024 End: 07-27-2025 [...] [facility] [address] [place] [address] Donovan Vora, DO [address] [facility] [address] [place] [address] [facility] Start: 06-09-2024 End: 06-09-2025 CBC panel - Blood by Automated count CBC Lab Routine Diabetes mellitus screening Expected: 06/09/2024 (Approximate), Expires: 06/09/2025 [facility] Work Phone: Comment on above: Expected: 06/09/2024 (Approximate), Expires: 06/09/2025 Start: 06-09-2024 End: 06-09-2025 Measurement of glucose 1 hour after glucose challenge for glucose tolerance test Glucose tolerance, 1 hour Lab Routine Diabetes mellitus screening Expected: 06/09/2024 (Approximate), Expires: 06/09/2025 [facility] Comment on above: Expected: 06/09/2024 (Approximate), Expires: 06/09/2025 Start: 06-09-2024 End: 06-09-2024 Patient encounter procedure [facility] Comment on above: Arrived Start: 05-31-2024 End: 05-31-2024 Professional / ancillary services management 05/31/2024 10:00 AM EST Ancillary Procedure [facility] [address] [facility] [place] [phone] [facility] Start: 05-10-2024 End: 06-10-2024 Alpha fetoprotein, maternal Alpha fetoprotein, maternal Lab Routine Need for maternal serum alpha-protein (MSAFP) screening Expected: 05/10/2024 (Approximate), Expires: 06/10/2024 [facility] Comment on above: Expected: 05/10/2024 (Approximate), Expires: 06/10/2024 Start: 05-10-2024 End: 05-10-2025 US for US OB ANATOMY SINGLE W US OB CERVICAL LENGTH Imaging Routine Screening, , for anatomic survey Expected: 05/10/2024 (Approximate), Expires: 05/10/2025 [facility] Comment on above: Expected: 05/10/2024 (Approximate), Expires: 05/10/2025 Start: 05-10-2024 End: 05-10-2024 Patient encounter procedure 05/10/2024 9:40 AM EST Routine [facility] [address] [facility] [address] [phone] America Thompson PA [address] [facility] [address] [place], [place] [phone] [facility] Start: 04-11-2024 End: 04-11-2024 Patient encounter procedure 04/11/2024 9:50 AM EST Routine [facility] [address] [facility] [address] [place] [address] Donovan Vora DO [address] [facility] [address] [place], [place] [phone] [facility] Start: 03-28-2024 End: 03-28-2025 XR Radius and Ulna - right 2 Views XR forearm 2 views right Imaging STAT Injury of right wrist, initial encounter Right forearm pain Expected: 03/28/2024, Expires: 03/28/2025 [facility] Comment on above: Expected: 03/28/2024 , Expires: 03/28/2025 Start: 03-28-2024 End: 03-28-2025 XR Wrist - right 3 Views XR wrist 3+ views right Imaging STAT Injury of right wrist, initial encounter Right wrist pain Expected: 03/28/2024, Expires: 03/28/2025 [facility] Work Phone: Comment on above: Expected: 03/28/2024 , Expires: 03/28/2025 Start: 03-10-2024 End: 03-10-2025 ABO/Rh ABO/Rh Lab Routine Missed menses , unspecified gestational age Expected: 03/10/2024 (Approximate), Expires: 03/10/2025 [facility] Comment on above: Expected: 03/10/2024 (Approximate), Expires: 03/10/2025 Start: 03-10-2024 End: 03-10-2025 Blood type and Indirect antibody screen panel - Blood Type and screen Lab Routine Missed menses , unspecified gestational age Expected: 03/10/2024 (Approximate), Expires: 03/10/2025 [facility] Work Phone: Comment on above: Expected: 03/10/2024 (Approximate), Expires: 03/10/2025 Start: 03-10-2024 End: 03-10-2025 Drugs of abuse panel - Urine by Screen method Rapid drug screen, urine Lab Routine , unspecified gestational age Encounter for supervision of normal first in first trimester Expected: 03/10/2024 (Approximate), Expires: 03/10/2025 [facility] Comment on above: Expected: 03/10/2024 (Approximate), Expires: 03/10/2025 Start: 03-10-2024 End: 03-10-2025 US Pelvis transvaginal US OB transvaginal Imaging Routine Missed menses Expected: 03/10/2024 (Approximate), Expires: 03/10/2025 [facility] Comment on above: Expected: 03/10/2024 (Approximate), Expires: 03/10/2025 Start: 03-10-2024 End: 03-10-2024 ambulatory 03/10/2024 1:00 PM EDT Initial [facility] [address] [facility] [phone] [facility] Start: 03-10-2024 End: 03-10-2024 Professional / ancillary services management 03/10/2024 12:30 PM EDT Ancillary Procedure [facility] [address] [facility] [address] [facility] Start: 02-11-2024 End: 02-10-2025 HCG,QUALITATIVE RFX TO QUANT ([facility]) HCG,QUALITATIVE RFX TO QUANT ([facility]) Lab Routine Positive urine test Expected: 02/11/2024 (Approximate), Expires: 02/10/2025 [facility] Work Phone: Comment on above: Expected: 02/11/2024 (Approximate), Expires: 02/10/2025 Start: 01-24-2024 Influenza vaccination Influenza Vacc ine (#1) [facility] Start: 01-11-2024 End: 01-11-2024 Patient encounter procedure 01/11/2024 11:00 AM EDT Office Visit [facility] [address] [place] [phone] Matti Sims DO [address] [place] [address] [facility] Start: 11-18-2023 Bacteria identified in Urine by Culture [facility] Start: 11-18-2023 [facility] Start: 10-20-2023 End: 10-20-2023 Patient encounter procedure 10/20/2023 8:15 AM EDT Office Visit [facility] [address] [place] [phone] Jelly Chery MD [address] [place] [address] [facility] Start: 09-29-2023 Plain X-ray of right hand XR hand RT min 3V* [facility] Start: 09-29-2023 XR Hand - right GE 3 Views [facility] Start: 05-25-2023 Depression Assessment Depression Ass essment [facility] Start: 01-23-2023 Covid-19 Vaccine ( season) Covid-19 Vaccine ( season) [facility] Start: 01-23-2023 Influenza vaccination Influenza Vacc ine (#1) [facility] Start: 01-23-2021 Influenza vaccination Flu vaccine (# 1) [facility] Phone: Start: 2018 Screening for malign ant neoplasm of cervix [facility] Start: 2015 Hepatitis C screening Hepatitis C Sc wilmer [facility] Start: 2015 HIV screening HIV Screening [facility] Start: 2013 Screening for Chlamy pam trachomatis Chlamydia screen [facility] Phone: Start: 02-19-2012 HIV screening HIV screen [facility] Work Phone: Start: 2011 Peds To Adult Transi tion Annual Assessment Peds To Adult Transition Annual Assessment [facility] Start: 2009 Peds To Adult Transi tion Initial Discussion Peds To Adult Transition Initial Discussion [facility] Start: 2003 Pneumococcal vaccination Pneum ococcal Vaccine (1 of 2 - PCV) [facility] Start: 1998 Varicella vaccine (1 of 2 - 2-dose childhood series) Varicella vaccine (1 of 2 - 2-dose childhood series) [facility] Phone: Start: 1997 Hepatitis C screening Hepatitis C sc reen [facility] Phone: Atopobium vaginae DN A [Presence] in Vaginal fluid by CRYSTAL with probe detection [facility] Bacteria identified in Urine by Culture Urine culture Microbiology Routine Missed menses Ordered: 03/10/2024 [facility] Comment on above: Ordered: 03/10/2024 Bacterial vaginosis associated bacterium 2 DNA [Presence] in Vaginal fluid by CRYSTAL with probe detection [facility] CBC W Auto Different ial panel - Blood CBC and differential Lab Routine Missed menses , unspecified gestational age Ordered: 03/10/2024 [facility] Comment on above: Ordered: 03/10/2024 CHLAMYDIA TRACHOMATI S (GENITO/STI) CHLAMYDIA TRACHOMATIS (GENITO/STI) Lab Routine Exposure to STD Ordered: 05/10/2024 [facility] Comment on above: Ordered: 05/10/2024 Hemoglobin A1c/Hemoglobin.total in Blood Hemoglobin A1c Lab Routine Missed menses , unspecified gestational age Ordered: 03/10/2024 [facility] Comment on above: Ordered: 03/10/2024 Hepatitis B virus surface Ag [Presence] in Serum or Plasma by Immunoassay Hepatitis B surface antigen Lab Routine Missed menses , unspecified gestational age Ordered: 03/10/2024 [facility] Comment on above: Ordered: 03/10/2024 Hepatitis C virus Ab [Presence] in Serum or Plasma by Immunoassay Hepatitis C antibody Lab Routine Missed menses , unspecified gestational age Ordered: 03/10/2024 [facility] Comment on above: Ordered: 03/10/2024 HIV-1/HIV-2 antigen/antibody combination immunoassay HIV-1 and HIV-2 antibodies Lab Routine Missed menses , unspecified gestational age Ordered: 03/10/2024 [facility] Comment on above: Ordered: 03/10/2024 Megasphaera sp type 1 DNA [Presence] in Vaginal fluid by CRYSTAL with probe detection [facility] Neisseria gonorrhoea e DNA [Presence] in Unspecified specimen by CRYSTAL with probe detection Neisseria gonorrhea DNA probe, direct Lab Routine Exposure to STD Ordered: 05/10/2024 [facility] Comment on above: Ordered: 05/10/2024 OTOLARYNGOLOGY INFEC TION PANEL OTOLARYNGOLOGY INFECTION PANEL Lab Routine Pharyngitis, unspecified etiology Coated tongue Ordered: 09/05/2024 [facility] Work Phone: Comment on above: Ordered: 09/05/2024 Patient Education Outer Ear Infection ED [facility] Work Phone: Patient referral [facility] Work Phone: Reagin Ab [Presence] in Serum by RPR RPR Lab Routine Missed menses , unspecified gestational age Ordered: 03/10/2024 [facility] Comment on above: Ordered: 03/10/2024 Rubella antibody, IgG Rubella an tibody, IgG Lab Routine Missed menses , unspecified gestational age Ordered: 03/10/2024 [facility] Comment on above: Ordered: 03/10/2024 SURESWAB(R) ADVANCED VAGINITIS PLUS, TMA SURESWAB(R) ADVANCED VAGINITIS PLUS, TMA Pathology and Cytology Routine Exposure to STD Ordered: 05/10/2024 [facility] Work Phone: Comment on above: Ordered: 05/10/2024 End: 06-29-2024 XR HAND GENERAL 3V PA/LAT/OBL RIGHT XR HAND GENERAL 3V PA/LAT/OBL RIGHT Radiology Routine Right hand pain Once per week for 10 Occurrences starting 06/29/2023 until 06/29/2024, 1 completed [facility] Work Phone: Comment on above: Once per week for 10 Occurrences starting 06/29/2023 until 06/29/2024, 1 completed Immunizations Immunization Date Immunization Notes Care Provider Fa nickolas 03-15-2024 Influenza, injectabl e, Madin Anali Canine Kidney, preservative free, quadrivalent Generic Provider [facility] 02-24-2022 Influenza, injectabl e, Madin Anali Canine Kidney, preservative free, quadrivalent Rad Sims DO Work Phone: [facility] 02-24-2022 influenza virus vacc ine, unspecified formulation Xr A21 [facility] 02-22-2021 influenza, injectabl e, quadrivalent, contains preservative Rad Sims DO Work Phone: [facility] 09-04-2020 COVID-19 mRNA Comrock ortega (Pfizer) MD Jelly Chery Work Phone: [facility] 08-14-2020 COVID-19 mRNA Comrock ortega (Pfizer) MD Jelly Chery Work Phone: [facility] 11-11-2019 tetanus toxoid, redu maryanne diphtheria toxoid, and acellular pertussis vaccine, adsorbed MD Jelly Chery Work Phone: [facility] 05-12-2017 tetanus toxoid, redu maryanne diphtheria toxoid, and acellular pertussis vaccine, adsorbed [facility] 12-19-2016 hepatitis A vaccine, adult dosage Rad Sims DO Work Phone: [facility] 12-19-2016 Human Papillomavirus 9-valent vaccine Rad Sims DO Work Phone: [facility] 12-19-2016 meningococcal B vacc ine, recombinant, OMV, adjuvanted Rad Sims DO Work Phone: [facility] 08-22-2016 Human Papillomavirus 9-valent vaccine Rad Sims DO Work Phone: [facility] 08-22-2016 meningococcal B vacc ine, recombinant, OMV, adjuvanted Rad Sims DO Work Phone: [facility] 08-22-2016 meningococcal polysaccharide (groups A, C, Y and W-135) diphtheria toxoid conjugate vaccine (MCV4P) Rad Sims DO Work Phone: [facility] 06-19-2016 hepatitis A vaccine, adult dosage Rad Lintoner DO Work Phone: [facility] 06-19-2016 Human Papillomavirus 9-valent vaccine Rad Sims DO Work Phone: [facility] 12-13-2012 meningococcal polysaccharide (groups A, C, Y and W-135) diphtheria toxoid conjugate vaccine (MCV4P) Rad Sims DO Work Phone: [facility] 12-13-2012 tetanus toxoid, redu maryanne diphtheria toxoid, and acellular pertussis vaccine, adsorbed Rad Sims DO Work Phone: [facility] 04-11-2009 novel influenza-H1N1 -09, preservative-free, injectable Rad Sims DO Work Phone: [facility] 02-15-2002 diphtheria, tetanus toxoids and acellular pertussis vaccine, unspecified formulation Rad Sims DO Work Phone: [facility] 02-15-2002 measles, mumps and rubella virus vaccine Rad Sims DO Work Phone: [facility] 02-15-2002 poliovirus vaccine, inactivated Rad Sims DO Work Phone: [facility] 05-22-1998 diphtheria, tetanus toxoids and acellular pertussis vaccine, unspecified formulation Rad Sims DO Work Phone: [facility] 05-22-1998 haemophilus influenz ae type b vaccine, conjugate unspecified formulation Rad Sims DO Work Phone: [facility] 05-22-1998 trivalent poliovirus vaccine, live, oral Rad Sims DO Work Phone: [facility] 02-20-1998 measles, mumps and rubella virus vaccine Rad Sims DO Work Phone: [facility] 1997 diphtheria, tetanus toxoids and acellular pertussis vaccine, unspecified formulation Rad Sims DO Work Phone: [facility] 1997 haemophilus influenz ae type b vaccine, conjugate unspecified formulation Rad Sims DO Work Phone: [facility] 1997 hepatitis B vaccine, pediatric or pediatric/adolescent dosage Rad Sims DO Work Phone: [facility] 1997 diphtheria, tetanus toxoids and acellular pertussis vaccine, unspecified formulation Rad Sims DO Work Phone: [facility] 1997 haemophilus influenz ae type b vaccine, conjugate unspecified formulation Rad Sims DO Work Phone: [facility] 1997 poliovirus vaccine, inactivated Rad Sims DO Work Phone: [facility] 1997 diphtheria, tetanus toxoids and acellular pertussis vaccine, unspecified formulation Rad Sims DO Work Phone: [facility] 1997 haemophilus influenz ae type b vaccine, conjugate unspecified formulation Rad Sims DO Work Phone: [facility] 1997 poliovirus vaccine, inactivated Rad Sims DO Work Phone: [facility] 1997 hepatitis B vaccine, pediatric or pediatric/adolescent dosage Rad Sims DO Work Phone: [facility] 1997 hepatitis B vaccine, pediatric or pediatric/adolescent dosage Rad Sims DO Work Phone: [facility] Payers Date Payer Category Payer [facility] [id number] 2024 Unknown [id number] 2023 Medicaid [id number] [id number] 2022 Private Health Insurance 1.2 .[id number]. [id number] 2022 Unknown [id number]. 1.13.159.2. [id number] 2022 Blue Cross Blue Shield [id number] 2.16.840.1.015256.19 1997 Unknown [id number] 2.16.840.1.718755.3.579.2. 175 1997 Unknown [id number] 2.16.840.1.914848.3.579.2. 593 1997 Unknown [id number] 2.16.840.1.985225.3.579.2. 593 1997 Unknown [id number] 2.16.840.1.495056.3.579.2. 93 1997 Unknown [id number] 2.16.840.1.154781.3.579.2. 727 1997 Unknown [id number] 2.16.840.1.000889.3.579.2. 727 1997 Unknown [id number] 2.16.840.1.214414.3.579.2. 727 1997 Unknown [id number] 2.16.840.1.253076.3.579.2. 727 1997 Unknown [id number] 2.16.840.1.847698.3.579.2. 1259 1997 Unknown [id number] 2.16.840.1.442192.3.579.2. 1259 1997 Unknown [id number] 2.16.840.1.979641.3.579.2. 1259 1997 Unknown [id number] 2.16.840.1.205661.3.579.2. 1259 1997 Unknown [id number] 2.16.840.1.338652.3.579.2. 1259 27-1997 Unknown [id number] 2.16.840.1.988229.3.579.2. 1258 1997 Unknown [id number] 2.16.840.1.129624.3.579.2. 1258 1997 Unknown [id number] 2.16.840.1.164440.3.579.2. 1258 1997 Unknown [id number] 2.16.840.1.521235.3.579.2. 1258 1997 Unknown [id number] 2.16.840.1.862716.3.579.2. 1258 1997 Unknown [id number] 2.16.840.1.251561.3.579.2. 1258 1997 Unknown [id number] 2.16.840.1.466921.3.579.2. 1258 1997 Unknown [id number] 2.16.840.1.352132.3.579.2. 1258 1997 Unknown [id number] 2.16.840.1.474115.3.579.2. 1258 1997 Unknown [id number] 2.16.840.1.737156.3.579.2. 1258 1997 Unknown [id number] 2.16.840.1.234839.3.579.2. 1258 1997 Unknown [id number] 2.16.840.1.035715.3.579.2. 1258 1997 Unknown [id number] 2.16.840.1.590251.3.579.2. 1258 1997 Unknown [id number] 2.16.840.1.623984.3.579.2. 1258 1997 Unknown [id number] 2.16.840.1.608844.3.579.2. 1258 1997 Unknown [id number] 2.16.840.1.971502.3.579.2. 1259 1997 Unknown [id number] 2.16.840.1.552662.3.579.2. 1259 1997 Unknown [id number] 2.16.840.1.089817.3.579.2. 1259 1959 Self-pay 1959 Unknown [id number] 1.2.840.888361.1.13.239.2. 7.3.331950.315 Medicaid [place] Advantage [id number] Unknown [id number] 2.16.840.1.502095.3.579.2. 593 Unknown O [id number] Unknown [id number] 2.16.840.1.882348.3.579.2. 531 Unknown [id number] 2.16.840.1.195500.3.579.2. 531 Unknown [id number] 2.16.840.1.233368.3.579.2. 531 Unknown [id number] 2.16.840.1.089417.3.579.2. 531 Unknown [id number] 2.16.840.1.872743.3.579.2. 531 Social History Date Type Detail Facility Start: 12-07-2020 End: 10-21-2022 Tobacco smoking status MNIS Never smoker [facility] Comment on above: Denies Start: 12-07-2020 Alcohol intake Ex-drinker (finding) [facility] Phone: Start: 1997 Sex Assigned At Not on file [employer] Phone: Exposure to SARS-CoV -2 (event) Not sure [facility] Start: 06-29-2023 End: 01-11-2024 Sex Assigned At [facility] Tobacco [facility] Comment on above: Denies. Tobacco smoking status No Smokin g Status Entered [facility] Start: 1995 Sex Assigned At Female F [facility] Start: 06-29-2023 Tobacco smoking stat us NHIS Occasional tobacco smoker [facility] Start: 10-21-2022 End: 06-29-2023 Tobacco use and exposure Smokeless tobacco non-user [facility] Start: 06-29-2023 End: 01-11-2024 History of Social function [facility] Start: 06-29-2023 Tobacco Comment Vapes occasionally [facility] Start: 07-05-2023 End: 09-29-2024 Alcohol intake Current drinker of alcohol (finding) [facility] How often to you hav e a drink containing alcohol? Monthly or less [facility] How many standard drinks containing alcohol do you have on a typical day? 1 or 2 [facility] How often do you hav e 6 or more drinks on 1 occasion? Never [facility] Start: 04-09-2023 Alcohol Comment Once in a whil e. caffeine; 2 to 3 cups of coffee per day [facility] Start: 07-27-2023 End: 03-24-2024 Tobacco smoking status NHIS Ex-smoker (finding) [facility] How many standard drinks containing alcohol do you have on a typical day? Patient does not drink [facility] Start: 01-11-2024 Alcohol Comment Once in a while [facility] Start: 01-23-2024 [facility] Go[facility] Date Patient Goal Desired Activity /State Personal health goal Functional Status Date Assessment Result Facility 03-24-2024 Functional Status N/A [facility] 01-15-2024 Functional Status N/A [facility] 07-19-2022 Functional Status N/A [facility] 07-08-2022 Functional Status N/A [facility] Clinical Notes 07-20-2021 to 10-05-2024 Dyan Lo NP - 10/05/2024 3:20 PM Colt Webre MA - 09/29/2024 8:30 AM Renny Rhodes [...] CHEW Oral for 30 Days nystatin (Mycostatin) 876210 UNIT/GM powder Topical, 2 times daily MV-Min-Fe [...] nursing note reviewed. Exam conducted with a it systems analyst present. Vitals: Estimated body mass index is [...] Dyan Lo NP documented in this encounter [facility] 09-29-2024 History of Presen t illness [...] tonsillectomy 01/07/2023 Mild persistent asthma without complication ([facility]/HCC) 01/07/2023 Postoperative pain 01/07/2023 Recurrent streptococcal tonsillitis 01/07/2023 Past Medical History: Diagnosis Date Asthma Moderate single current episode of major depressive disorder (HCC) (CMS/HCC) Ovarian cyst 2016 Plantar verruca Tinnitus, bilateral HISTORY PAST MEDICAL HISTORY SOCIAL HISTORY Past Medical History: Diagnosis Date Asthma Moderate single current episode of major depressive disorder (HCC) (CMS/[facility]) NAFLD (nonalcoholic fatty liver disease) Ovarian cyst [...] nursing note reviewed. Exam conducted with a it systems analyst present. Vitals: Estimated body mass index is [...] Donovan Vora DO documented in this encounter [facility] 09-22-2024 History of Presen t illness [...] nursing note reviewed. Exam conducted with a it systems analyst present. Vitals: Estimated body mass index is [...] Donovan Vora DO documented in this encounter [facility] 09-15-2024 History of Presen t illness [...] nursing note reviewed. Exam conducted with a it systems analyst present. Vitals: Estimated body mass index is [...] Donovan Vora DO documented in this encounter [facility] 09-08-2024 History of Presen t illness [...] nursing note reviewed. Exam conducted with a it systems analyst present. Vitals: Estimated body mass index is [...] Donovan Vora DO documented in this encounter [facility] 09-07-2024 Telephone encounter Note Reviewed and results discussed with the patient. She requested a printed copy for her records. [facility] Work Phone: 09-07-2024 Miscellaneous Notes Reviewed and results discussed with the patient. She requested a printed copy for her records. documented in this encounter [facility] 09-05-2024 History of Presen t illness Narrative Images from the original note were not included. [address], [address] [place], [address] P: [phone] F: [phone] HPI Historian of HPI: patient Devorah Shelton [...] - OTOLARYNGOLOGY INFECTION PANEL - nystatin (Mycostatin) 344203 UNIT/ML suspension; Take 6 mL (600,000 Units) [...] - POCT glucose documented in this encounter [facility] 08-25-2024 History of Presen t illness [...] of: PARADISE Griffiths documented in this encounter [facility] 07-27-2024 History of Presen t illness [...] nursing note reviewed. Exam conducted with a it systems analyst present. Vitals: Estimated body mass index is [...] of: PARADISE Griffiths documented in this encounter [facility] 07-12-2024 History of Presen t illness [...] nursing note reviewed. Exam conducted with a it systems analyst present. Vitals: Estimated body mass index is [...] Donovan Vora DO documented in this encounter [facility] 06-17-2024 Note ED Patient Education Note [...] added (diluted fruit juice). ??? Eat bland, hscf-ce-vdobid foods in small amounts as you are able. These foods include bananas, applesauce, rice, lean meats, toast, and crackers. ??? Avoid fluids that contain a lot of sugar or caffeine, such as energy drinks, sports drinks, and soda. ??? Avoid alcohol. ??? Avoid spicy or fatty foods. General instructions ??? Take lnvx-jkj-tnztewy and prescription medicines only as told by your health care provider. ??? Drink enough fluid to keep your urine pale yellow. ??? Wash your hands often using soap and water for at least 20 seconds. If soap and water are not available, use hand lead caregiver. ??? Make sure that everyone in your [...] and drinking to prevent dehydration. ??? Take ltsx-hvu-mabxgyz and prescription medicines only as told by [...] provider. Document Revised: 11/15/2021 Document Reviewed: 11/15/2021 [employer] Patient Education ? 2023 PAAY. [facility] 06-09-2024 History of Presen t illness Narrative [...] nursing note reviewed. Exam conducted with a it systems analyst present. Vitals: Estimated body mass index is [...] Donovan Vora DO documented in this encounter [facility] 05-10-2024 History of Presen t illness [...] of: PARADISE Griffiths documented in this encounter [facility] 04-25-2024 History of Presen t illness Narrative Images from the original note were not included. [address] , [address] [place], [address] P: [phone] F: [phone] HPI Historian of HPI: patient Devorah Shelton [...] ear normal. Nose: Nose normal. Mouth/Throat: Lips: [place]. Mouth: Mucous membranes are moist. Pharynx: Oropharynx [...] gestation of Reviewed. documented in this encounter [facility] 04-11-2024 History of Presen t illness [...] nursing note reviewed. Exam conducted with a it systems analyst present. Vitals: Estimated body mass index is [...] or undercooked meat, and stay away from [facility]. Patient has been consulted regarding any further do's and don'ts of . Patient voiced understanding and all questions and concerns were answered. Orders Placed This Encounter Procedures POCT urinalysis dipstick manually resulted Follow Up: Patient is to return in 4 weeks for routine OB appointment. Documented by Viola Rhodes LPN on behalf of: Donovan Vora DO documented in this encounter [facility] 03-28-2024 Telephone encounter Note Pt fell [...] wrist to ensure no fracture. Ordered to [facility]. Annie as made aware. [facility] 03-28-2024 Miscellaneous Notes Pt fell last week. She was at ER and they did an x ray of her wrist. They recommended repeat x rays if no improvement once swelling subsided. The pain is still present and tender to movement or palpation. Bruising observed to forearm as well. Pt requesting x ray of forearm and wrist to ensure no fracture. Ordered to [facility]. She as made aware. documented in this encounter [facility] 03-25-2024 Hospital Discharg e instructions Patient [...] are safe for you. General instructions Take fmak-zwm-ilkhwda and prescription medicines only as told by [...] provider. Document Revised: 09/17/2020 Document Reviewed: 09/17/2020 [employer] Patient Education 2023 PAAY. Follow Up Care 03/24/2024 18:46:04 With:JELLY MIRI Address: [address] [place], [place] [id number]- Business (1) When:03/27/2024 [facility] 03-24-2024 Note ED Patient Education Note Orthopedics [...] safe for you. General instructions ??? Take mfmn-fsm-wrdarly and prescription medicines only as told by [...] swelling gets worse (more content not included)... [facility] 03-10-2024 History of Presen t illness Narrative [...] of Onset Diabetes Mother Ashleigh Hypertension Mother Ashleihg Migraines Mother Ashleigh Mental illness Mother Ashleigh [...] or undercooked meat, and stay away from [facility]. Patient has also been advised to not [...] by: Sarah Land documented in this encounter [facility] 02-11-2024 Telephone encounter Note Urine test +. Patient lab requested. [facility] 02-11-2024 Miscellaneous Notes Urine test +. Patient lab requested. documented in this encounter [facility] 01-16-2024 Hospital Discharg e instructions Patient [...] mouth or applied to the skin. Take qnsy-lyi-bjfwhfr and prescription medicines only as told by [...] provider. Document Revised: 09/13/2020 Document Reviewed: 08/22/2020 [employer] Patient Education 2022 PAAY. Follow Up Care 01/15/2024 21:25:10 With:JELLY CHERY Address: [address] [place], [place] [id number] Business (1) When:01/18/2024 Comments:To schedule follow-up appointment with your family physician if symptoms not improve in the next 2 to 3 days. Alternate Tylenol, ibuprofen, and ice as needed for pain management. Return to the ED with any worsening symptoms [facility] 01-15-2024 Note ED Patient Education Note Orthopedics [...] mouth or applied to the skin. Take xije-dfo-dzqdtif and prescription medicines only as told by [...] provider. Document Revised: 09/13/2020 Document Reviewed: 08/22/2020 [employer] Patient Education ? 2022 PAAY. [facility] 01-15-2024 Evaluation + Plan note Extrac betty from: Title:ED Note Author:Whitney Frost PA-C te:01/15/24 Hand pain, left (M79.642: Pa in in left hand) Orders: XR Hand 3+ Views Left [facility] 02-11-2024 History of Present illness Narrative* Rad [...] TEST(S) ORDERS FOR RESULTS documented in this encounterUniversity [id number] NoteHNO ID: [id number] Author: CHRISTEN DIAS RT(R) Service: Radiology Author [...] PATIENT PRESENTS WITH AN IMPLANTABLE OR ATTACHED APPRENTICESHIP TRAINING REPRESENTATIVE: No RADIOLOGY DEPARTMENT: General X-ray: Exam(s) Completed: Upper Extremity X-Ray(s): Hand, right PERIPHERAL IV DATA: Not applicable SIGNED BY: RT Lb(R) June 29, 2023 4:27 [facility]02-05-2024 NoteHNO ID: [id number] Author: MIGUEL ANG PA-C Service: ? Author Type: Physician Engine Assembly Supervisor Type: Progress Notes Filed: 06/30/2023 08:33 Note Text: PLASTIC SURGERY DEPARTMENT [facility] Hand Surgery Note [] New referred [...] move up the arm past the wrist. 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 Dominant Hand: [...] to calculate BSA. AXEL (more content not included)...[facility]02-05-2024 History of Present illness Narrative* Christen [...] PATIENT PRESENTS WITH AN IMPLANTABLE OR ATTACHED APPRENTICESHIP TRAINING REPRESENTATIVE: No RADIOLOGY DEPARTMENT: General X-ray: Exam(s) Completed: Upper Extremity X- Ray(s): Hand, right PERIPHERAL IV DATA: Not applicable SIGNED BY: RT Lb(R) June 29, 2023 4:27 PM [facility] of Present illness Narrative* Miguel Ang PA-C - 06/29/2023 4:16 PM EST PLASTIC SURGERY DEPARTMENT [facility] Hand Surgery Note [] New referred [...] move up the arm past the wrist. 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 Dominant Hand: [...] -[] Boutonniere deformity +[] -[] +[] -[] Rogers neck deformity +[] -[] +[] -[] FINGERS [...] deformity +[] -[x] Boutonniere deformity +[] -[x] Rogers neck deformity +[] -[x] WRIST RIGHT LEFT [...] []consult pain management []consult orthopedics Follow-up: [x]with FRAME STRAIGHTENER [] with []after tests completed [x]PRN []1 [...] are not fully corrected. [facility] NoteOrthopedic Surgery Subjective Follow-up of [...] exhibit full active and passive ROM. Strength: stockroom keeper 5/5, thumb 5/5, interossei 5/5 Sensation: intact [...] is planning on doing hand therapy in [place]. - WBAT and ROM of digits as [...] may be an additional personal documentation from me.[facility]09-26-2023 Note 27-year-old female xoyfs-wlsl-ptrazwie who sustained a dog bite to her [...] of motion exercises with occupational therapy at [facility]. She will complete her antibiotic regime. We will have her follow-up with Dr. Smallwood next week. She will report immediately the emergency room should she develop any signs of infection.[facility]05-26-2023 Evaluation note* Encounter Date Diagnosis Assessment Notes [...] physician if no improvement in 2-3 days [facility] Other 02-26-2023 Hospital Discharge instructions Patient Education [...] at all times when lying down. Take fjsr-hux-nsmjzxy and prescription medicines only as told by [...] 03/11/2005 Document Revised: 04/23/2018 Document Reviewed: 04/03/2017 [employer] Patient Education 2020 [employer] Follow Up Care 07/19/2022 21:36:50 With:PALMIRA RIGGS Address[facility] [address] [facility] [address] [address] [facility] (1) When:Within 3 Day(s) [facility]02-25-2023 Evaluation + Plan noteExtracted from: Title:ED Note Author:Roman Syed DO Date :07/19/22 [facility]02-15-2023 Hospital Discharge instructions Patient Education 07/08/2022 22:15:17 [...] 08/02/2012 Document Revised: 04/23/2018 Document Reviewed: 07/04/2016 [employer] Patient Education 2020 PAAY. 07/08/2022 22:15:17 Dysphagia Eating Plan, Pureed Dysphagia Eating Plan, Pureed This diet is helpful for people with moderate to severe swallowing problems. Pureed foods are smooth and are prepared without lumps so that they can be swallowed safely. Work with your health care provider and your diet and child nutrition assistant (dietitian) to make sure that you are [...] it. This can be done with a wax blender. ?Moistening it. This can be done by [...] best for you. Grains Soft breads, pancakes, [place]an toast, muffins, and bread stuffing pureed to [...] foods Coarse or seeded herbs and spices. [place] preserves. Jams with seeds. Whole sandwiches. Non-pureed casseroles. [place] soups. Summary Pureed foods can be helpful [...] 05/11/2006 Document Revised: 09/01/2019 Document Reviewed: 07/14/2017 [employer] Patient Education 2020 PAAY. 07/08/2022 22:15:17 Dysphagia Eating Plan, Minced and [...] health care provider and your diet and child nutrition assistant (dietitian) to make surethat you are following [...] Cooking You may need to use a wax blender, whisk, or masher to soften some of [...] or seeds. Pancakes, sweet rolls, pastries, and [place] toast that have been moistened with syrup [...] vegetables, such as celery, peas, broccoli, cabbage, [place] sprouts, and asparagus. Potato skins. Potato and other vegetable chips. Fried or [place]-fried potatoes. Cooked corn and peas. Fruits Hard, [...] 05/11/2006 Document Revised: 09/01/2019 Document Reviewed: 08/21/2017 [employer] Patient Education 2020 PAAY. 07/08/2022 22:15:17 Dehydration, Adult, Nool-vr-Cszv Dehydration, Adult Dehydration is when there is [...] a lot of fat or sugar. Take dhiu-vhi-ojoepjx and prescription medicines only as told by [...] 03/07/2010 Document Revised: 04/23/2018 Document Reviewed: 07/04/2016 [employer] Patient Education 2019 PAAY. Follow Up Care 07/08/2022 17:43:05 With:PALMIRA SHELLJENNIFERRICHARD Address: [address] , [place] [address] Business (1) When:07/11/2022 21:56:31 [facility]01-30-2023 Evaluation note* Encounter Date Diagnosis Assessment Notes [...] should improve within the next 4-7 days. [facility] Other 01-25-2023 Evaluation note* Encounter Date Diagnosis [...] covered if open and draining. 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 May try to treat with piercing still [...] Pt understood and agreed to tx plan. [facility] Other 12-30-2022 Evaluation note* Encounter Date Diagnosis Assessment Notes Treatment Notes Treatment Clinical Notes Apr, Strep pharyngitis (ICD-10 - J02.0) [facility] Other 11-23-2022 Evaluation note* Encounter Date Diagnosis [...] Pt understood and agreed to treatment plan. [facility] Other 10-28-2022 Evaluation note* Encounter Date Diagnosis [...] Pt understood and agreed to treatment plan. [facility] Other 02-26-2022 Evaluation note* Encounter Date Diagnosis [...] days. Patient understands and agrees the plan. [facility] Other Evaluation + Plan note No data available for this section [facility] Trigger point with back pain- Primary Backache, unspecified Hepatic steatosis Other chronic nonalcoholic liver disease documented in this encounter [facility] Work Phone: evaluation noteNo assessment information available [facility] Work Phone: Evaluation note* Diagnosis Right hand pain Pain in limb [facility] Right hand pain- Primary Pain in limb [facility] Diagnosis Recurrent acute suppurative otitis media without spontaneous rupture of tympanic membrane of both sides- Primary Pharyngitis, unspecified etiology [facility] Onset Date Resolution Status Dog bite of right hand with infection acute [facility] Work Phone: Evaluation note* Diagnosis Onset Date Resolution Status Dog bite of right hand with infection acute Abnormal MRI acute Dog bite of right hand with infection acute Injury of right hand acute [facility] Work Phone: Evaluation note* Diagnosis Onset Date Resolution Status Dog bite of right hand with infection acute Dog bite of right hand with infection acute Injury of right hand acute Dog bite of right hand acute [facility] Work Phone: Evaluation note* Diagnosis Onset Date Resolution Status Dog bite of right hand with infection acute Injury of right hand acute Dog bite of right hand acute Pain of right middle finger acute [facility] Work Phone: Evaluation note* Diagnosis Onset Date Resolution Status Dog bite of right hand with infection acute Injury of right hand acute Dog bite of right hand acute Pain of right middle finger acute Skin yeast infection acute [facility] Work Phone: Evaluation note* Diagnosis Onset Date Resolution Status Dog bite of right hand with infection acute Injury of right hand acute Dog bite of right hand acute Pain of right middle finger acute Skin yeast infection acute Dog bite of right hand acute Pain of right middle finger acute [facility] Work Phone: Evaluation note* Diagnosis Onset Date Resolution Status Dog bite of right hand acute Pain of right middle finger acute [facility] Work Phone: Evaluation note* Diagnosis Missed [...] Surgical History adenoidectomy Surgical History PE tubes Squid Facil Other History general Narrative - Reported* Type Description Date Medical History otitis media Medical History depression and anxiety Medical History asthma Medical History joint swelling Surgical History adenoidectomy Surgical History PE tubes Surgical History tonsillectomy 06/2022 Squid Facil Other Progress note No data available for this section [facility] Diagnostic Procedure Only (Routine) - Authorized Specialty Diagnoses / Procedures Referred By Dotac t Referred To Contact XR IMAGING Diagnoses Right hand pain Procedures XR HAND GENERAL 3V PA/LAT/OBL RIGHT RADEX HAND MINIMUM 3 VIEWS Brianda Cartwright MD [address] [place] [address] [place] [id number] Referral ID Status Reason Start Date Expiration Date Visits Requested Visits Authorized [id number] Authorized Auto-Generat ed Referral 06/29/2023 07/28/2024 10 10 [facility] Diagnostic Procedure Only (Routine) - Authorized Specialty Diagnoses / Procedures Referred By Contac t Referred To Contact XR IMAGING Diagnoses Right hand pain Procedures XR HAND GENERAL 3V PA/LAT/OBL RIGHT RADEX HAND MINIMUM 3 VIEWS Brianda Cartwright MD [address] [place] [address] [place] [id number] Referral ID Status Reason Start Date Expiration Date Visits Requested Visits Authorized [id number] Authorized Auto-Generat ed Referral 06/29/2023 07/28/2024 10 10 [facility] Summary Purpose Family History Relationship Condition Age [...] section and content) DATE CREATED AUTHOR 12/16/2020 [facility] DATE CREATED AUTHOR AUTHOR'S ORGANIZ ATION 03/27/2022 [facility] DATE CREATED AUTHOR AUTHOR'S ORGANIZ ATION 10/01/2022 [facility] dical Specialist DATE CREATED AUTHOR AUTHOR'S ORGANIZ ATION 02/25/2023 [facility] DATE CREATED AUTHOR AUTHOR'S ORGANIZ ATION 07/04/2023 [facility] DATE CREATED AUTHOR AUTHOR'S ORGANIZ ATION 11/22/2023 [facility] DATE CREATED AUTHOR AUTHOR'S ORGANIZ ATION [facility]/06/2024 [facility] DATE CREATED AUTHOR AUTHOR'S ORGANIZ ATION 06/18/2024 [facility] DATE CREATED AUTHOR AUTHOR'S ORGANIZ ATION 10/07/2024 [facility] dical Specialists EPIC REASON FOR VISIT (unrecogniz ed section and content) Reason Comments Radio Gen A21 Specialty Diagnoses / Procedures Referred By Contac t Referred To Contact XR IMAGING Diagnoses Right hand pain Procedures XR HAND GENERAL 3V PA/LAT/OBL RIGHT RADEX HAND MINIMUM 3 VIEWS Brianda Cartwright MD [address] [place] [address] [place] [id number] Referral ID Status Reason Start Date Expiration Date Visits Requested Visits Authorized [id number] Authorized Auto-Generat ed Referral 06/29/2023 07/28/2024 10 [...] Active Susie Johnson NP-C Attending Provider Active Bridge [employer] Person Relationship Specialty Start Date End Date Jelly Chery MD [address] [place] [address] Referring Internal Medicine 06/26/23 [employer] Person Relationship Specialty Start Date End Date Jelly Chery MD [address] [place] [address] Referring Internal Medicine 06/26/23 [employer] Crew Person Relationship Specialty Start Date End Date Jelly Chery MD [address] [place] [address] PCP - General Internal Medicine 10/17/22 Team [...] February 04, 2024 End: February 04, 2024 Bridge Repair 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 Person Relationship Specialty Start Date End Date Jelly Chery MD [address] [place] [phone] PCP - General Internal Medicine 10/17/22 [employer] Person Relationship Specialty Start Date End Date Jelly Chery MD [address] [place] [address] PCP - General Internal Medicine 10/17/22 [employer] Crew Person Relationship Specialty Start Date End Date Jelly Chery MD [address] [place] [address] PCP - General Internal Medicine 10/17/22 [employer] Crew Person Relationship Specialty Start Date End Date Jelly Chery MD [address] [place] [address] PCP - General Internal Medicine 10/17/22 Bridge [employer] Crew Person Relationship Specialty Start Date End Date Jelly Chery MD [address] [place] [address] PCP - General Internal Medicine 10/17/22 Bridge [employer] Crew Person Relationship Specialty Start Date End Date Jelly Chery MD [address] [place] [address] PCP - General Internal Medicine 10/17/22 Bridge [employer] Crew Person Relationship Specialty Start Date End Date Jelly Chery MD [address] [place] [address] PCP - General Internal Medicine 10/17/22 Bridge Rep[employer] Crew Person Relationship Specialty Start Date End Date Jelly Chery MD [address] [place] [address] PCP - General Internal Medicine 10/17/22 Bridge Rep[employer] Crew Person Relationship Specialty Start Date End Date Jelly Chery MD [address] [place] [address] PCP - General Internal Medicine 10/17/22 Bridge Repair Crew Person Relationship Specialty Start Date End Date Jelly Chery MD [address] [place] [address] PCP - General Internal Medicine 10/17/22 Bridge Repair Crew Person Relationship Specialty Start Date End Date Jelly Chery MD [address] [place] [address] PCP - General Internal Medicine 10/17/22 Bridge Repair Crew Person Relationship Specialty Start Date End Date Jelly Chery MD [address] [place] [address] PCP - General Internal Medicine 10/17/22 Bridge Repair Crew Person Relationship Specialty Start Date End Date Jelly Chery MD [address] [place] [address] PCP - General Internal Medicine 10/17/22 Bridge Repair Crew Person Relationship Specialty Start Date End Date Jelly Chery MD [address] [place] [address] PCP - General Internal Medicine 10/17/22 Bridge Repair Crew Person Relationship Specialty Start Date End Date Jelly Chery MD [address] [place] [address] PCP - General Internal Medicine 10/17/22 Bridge Repair Crew Person Relationship Specialty Start Date End Date Jelly Chery MD [address] [place] [address] PCP - General Internal Medicine 10/17/22 Bridge Repair Crew Person Relationship Specialty Start Date End Date Jelly Chery MD [address] [place] [address] PCP - General Internal Medicine 10/17/22 Bridge Rep[employer] Crew Person Relationship Specialty Start Date End Date Jelly Chery MD [address] [place] [address] PCP - General Internal Medicine 10/17/22 Goals [...] or prosecute any alcohol or drug abuse patient.[facility] the event this information is protected by the Federal Confidentiality of Alcohol and Drug Abuse Patient Records regulations: The Federal rules restrict any use of the information to criminally investigate or prosecute any alcohol or drug abuse patient.[facility] FOR RECORDS PERTAINING TO PATIENTS [...] BE BASED ON THE PRIMARY CLINICAL RECORDS. [facility]. provides no warranty or guarantee of the accuracy or completeness of information in this document.
== END 2024-10-11 18:40 | disposition home or self-care (01) ==
LOC: FBCO 17:59 → FBC 18:03
PROVIDERS: Visit Provider Obstetrics & Gynecology
DX: O36.63X0 Maternal care for excessive fetal growth, third trimester, not applicable or unspecified (principal); Z3A.39 39 weeks gestation of pregnancy
CPT/HCPCS: 59025

== ENCOUNTER 2024-10-13 18:35 | Inpatient (IN) | payer BC, OTHER, SELFPAY ==
--- OUTSIDE RECORDS SUMMARY | 2018-10-14 11:54 | XMS_ITS | Continuity of Care Document ---
Author Organization [facility] Address [address] [place] [address] Phone Care Team Providers Care Textile Dyer Name Role Phone Timmy Wynn Unavailable Unavailable [...] Diagnoses Date Provider Providers Copied on Encounter [facility], [address] [place] [address], [id number], [place] tel:[phone] [facility] No Information 9 Kingsley Warner. [address] [place] [address], [id number], [place]. tel: [phone] [facility], [address] [place] [address], [id number], [place] tel:[phone] [facility] Recurrent major depressive disorder 9 Kingsley Warner. [address] [place] [address], [id number], [place]. tel: [phone] [facility], [address] [place] [address], [id number], [place] tel:[phone] [facility] Recurrent major depressive disorder 9 Kingsley Warner. [address] [place] [address], [id number], [place]. tel:[phone] [facility], [address] [place] [address], [id number], [place] tel:[phone] [facility] No Information 7 Toby Morillo. [address] [place] [address], [id number] , [place]. tel: [phone] OFFICE/OUTPAT IENT VISIT, [facility], [address], [place], [id number], [place] tel:[phone] [facility] No Information 7 Visci DO Quinn. [address], [place], [id number] , [place]. tel: [phone] [facility], [address], [place], [id number], [place] tel:[phone] [facility] No Information 7 Visci DO Quinn. [address], [place], [id number] , [place]. tel: [phone] OFFICE/OUTPAT IENT VISIT, [facility], [address] [place] [address], [id number], [place] tel:[phone] [facility] med refill (chief complaint) AsthmaUpper respiratory infection 5 Agustin Ewing. [address], [place], [id number] , [place]. tel: [phone] PREV VISIT, [facility], AGE 12-17 [facility], [address], [place], [id number], [place] tel:[phone] [facility] physical (sport) (chief complaint)a sthma (chief complaint) Other general medical examination for administrative purposes 4 Hembuffy [address]. [address], [place], [id number] , [place]. OFFICE/OUTPAT IENT VISIT, [facility], [address], [place], [id number], [place] tel:[phone] [facility] No Information 3 Visci DO Quinn. [address], [place], [id number] , [place]. tel: [phone] OFFICE/OUTPAT IENT VISIT, [facility], [address], [place], [id number], [place] tel:[phone] [facility] No Information Jan- 3 Visci DO Ball. [address], [place], [id number] , [place]. tel: [phone] OFFICE/OUTPAT IENT VISIT, [facility], [address], [place], [id number], [place] tel:[phone] [facility] No Information Sep- 3 Visci DO Ball. [address], [place], [id number] , [place]. tel: [phone] OFFICE/OUTPAT IENT VISIT, [facility], [address], [place], [id number], [place] tel:[phone] [facility] No Information 3 Visci DO Ball. [address], [place], [id number] , [place]. tel: [phone] OFFICE/OUTPAT IENT VISIT, [facility], [address], [place], [id number], [place] tel:[phone] [facility] No Information Sep 3 Visci DO Ball. [address], [place], [id number] , [place]. tel: [phone] OFFICE/OUTPAT IENT VISIT, [facility], [address], [place], [id number], [place] tel:[phone] [facility] No Information Sep-0 3 Visci DO Ball. [address], [place], [id number] , [place]. tel: [phone] OFFICE/OUTPAT IENT VISIT, [facility], [address], [place], [id number], [place] tel:[phone] [facility] physical (school) (chief complaint)w heezing (chief complaint) Routine Medical ExamAsthmaNeed for prophylactic vaccination and inoculation against other specified single bacterial diseaseNeed for prophylactic vaccination with combined diphtheria-teta nus-pertussis (DTP) (DTaP) vaccineRoutine Medical Exam 3 Parth Ford. [address] [place] [address], [id number] , . Family History Family Member Type [...] Record Payers Payer name Insurance type Covered alliance party ID Authoriza tion(s) [place] Adv CFC 190 [id number] Medicaid Wrap - FQHC [place] [id number] [employer] Advantage Medicaid MC [id number] 01 Medicaid Wrap - FQHC MC [id number] [employer] Advantage Medicaid MC [id number] 01 Medicaid Wrap - FQHC MC [id number] [employer] Advantage Medicaid MC [id number] 01 Medicaid Wrap - FQHC MC [id number] Social History Type Description Quantity Date Captured Comments Sex Female Smoking Status No Information Sexual Orientation Choose not to disclose Gender Identity Female Chief Complaint And Reason For Visit No Information Reason For Referral Reason For Referral No Information Plan Of Treatment Date Type Action Status Goal PAP. Due on due Goal Depression screening. Due on due Goal Influenza vaccine. Due on due Goal H&P. Due on due Goal RLP. Due on due Goal PAP. Due on due Goal Depression screening. Due on due Goal Influenza vaccine. Due on due Goal H&P. Due on due Goal RLP. Due on due Goal RLP. Due on due Goal H&P. Due on due Goal Influenza vaccine. Due on due Goal Depression screening. Due on due Goal Influenza vaccine. Due on due Goal HPV (2nd). Due on due Goal H&P. Due on due Goal Depression screening. Due on due Goal Depression screening. Due on due Goal H&P. Due on due Goal Influenza vaccine. Due on due Goal HPV (). Due on due Goal H&P. Due on due Goal Depression screening. Due on due Goal HPV (1st). Due on 5 due Goal Tdap due Goal TD Vaccine. Due on 13 due Goal H&P. Due on due History Of Present Illness Encounter Date [...]
--- OUTSIDE RECORDS SUMMARY | 2023-11-03 04:45 | XMS_ITS ---
Author Organization [facility] es Address [address] [place] [address] Care Team Providers Care Glass Beveler Name Role Phone Dr. José Miguel Calderon Primary Care Provider [phone] Brooklynn Miguel Tobin [phone] REASON FOR VISIT FILLING Encounters Encounter Location Date Provider Diagnosis [facility] [address] [place] [address] 11/03/2023 Miguel Tobin Plan Of Treatment No Information Progress Notes * MUMTAZ GAMBLEYUNIOROB: 7 (29 yo F)Acc No.[id number]:11/03/2023 Patient: MACARENA NAVARRETE Provider: Crissy Bettencourt DDS :1995 A ge:28 Y S ex:Female Date:11/03/2023 Address:[address] [place], [place] [id number] Pcp:Dr. José Miguel Calderon Subjective: * Chief Complaints: * 1 . FILLING. * Medical History: Objective: * Vitals: Assessment: Plan: * Treatment: * Images: * Electronic signature of Henrique Tobin on 10/13/2024 at 06:41 PM EDT Sign off status: Pending * Provider: Crissy Bettencourt DDS Date: 11/03/2023 Generated for Darya leiva/Smith/eTransmitting on: 10/13/2024 06:41 PM EDT
--- OUTSIDE RECORDS SUMMARY | 2023-12-03 05:25 | XMS_ITS ---
Author Organization [facility] es Address [address] [place] [address] Care Team Providers Care Rug Cleaner Hand Name Role Phone Dr. José Miguel Calderon Primary Care Provider [phone] Brooklynn Miguel Tobin [phone] REASON FOR VISIT FILLING Encounters Encounter Location Date Provider Diagnosis [facility] [address] [place] [address] 12/03/2023 Miguel Tobin Plan Of Treatment No Information Progress Notes * MUMTAZ GAMBLEYUNIOROB: 7 (29 yo F)Acc No.[id number]:12/03/2023 Patient: MACARENA NAVARRETE Provider: Crissy Bettencourt DDS :1995 A ge:28 Y S ex:Female Date:12/03/2023 Address:[address] [place], [place] [id number] Pcp:Dr. José Miguel Calderon Subjective: * Chief Complaints: * 1 . FILLING. * Medical History: Objective: * Vitals: Assessment: Plan: * Treatment: * Images: * Electronic signature of Henrique Tobin on 10/13/2024 at 06:42 PM EDT Sign off status: Pending * Provider: Crissy Bettencourt DDS Date: 12/03/2023 Generated for Darya leiva/Smith/eTransmitting on: 10/13/2024 06:42 PM EDT
--- OUTSIDE RECORDS SUMMARY | 2024-01-22 09:40 | XMS_ITS ---
Author Organization [facility] in [place] Address [address] [place] [address] Care Team Providers Care Offshoring Manager Name Role Phone Jeremi Barnett MD Primary Care Provider Susanne Garcia Unavailable [phone] Allergies Allergen (clinical drug ingredient) Drug/Non Drug Allergy documented on EMR Reaction Allergy Type Onset Date Status amoxicillin / clavulanate Augmentin diarrhea Drug Allergy Active REASON FOR VISIT Patient presents for audiogram review Medications Medication SIG (Take, Route, Fr equency, Duration) Notes Start Date End Date Status Flonase Active DULoxetine HCl 60 MG TAKE 1 CAPSULE BY M OUTH ONCE DAILY IN THE MORNING. DO NOT CRUSH OR CHEW Oral for 30 Days A ctive Azelastine HCl 0.1 % 1 puff in each nost ril Nasally Twice a day for 30 day(s) 01/22/2024 Active Benadryl Active Claritin Active Problems Problem Type SNOMED Code ICD Code Onset Dates Problem Status W/U Status Risk Notes Problem Allergic rhinitis caused by pollen (disorder) (45900697) Allergic rhinitis due to pollen (J30.1) Active confirmed Problem Chronic maxillary sinusitis (34054996) Chronic maxillary sinusitis (J32.0) Active confirmed Vital Signs Height 62 in 01/22/2024 Weight 209 lbs 01/22/2024 BMI 38.22 kg/m2 01/22/2024 Encounters Encounter Location Date Provider Diagnosis [facility] [place] [address] [facility] [place] [address] 01/22/2024 Susanne Cabral Allergic rhinitis du e to pollen J30.1 ; DNS (deviated nasal septum) J34.2 ; Hypertrophy of both inferior nasal turbinates J34.3 ; Nasal dryness J34.89 ; Chronic maxillary sinusitis J32.0 and TMJ tenderness, right M26.621 Assessments Encounter Date Diagnosis (ICD Code) Assessment Notes Treatment Notes Treatment Clinical Notes Section Notes 01/22/2024 Allergic rhinitis due to pollen (ICD-10 - J30.1) 01/22/2024 DNS (deviated nasal septum) (ICD-10 - J34.2) 01/22/2024 Hypertrophy of both inferior nasal turbinates (ICD-10 - J34.3) 01/22/2024 Nasal dryness (ICD-10 - J34.89) 01/22/2024 Chronic maxillary sinusitis (ICD-10 - J32.0) 01/22/2024 TMJ tenderness, right (ICD-10 - M26.621) 01/22/2024 Other I discussed my impression and treatment plan with Devorah. 1.) Continue using Flonase and Claritin for allergy symptoms. Aim up and out towards the ears for nasal sprays to prevent dryness on your septum. 2.) Audiogram reviewed. 3.) Continue TMJ protocol for ear fullness and pain. 4.) I am sending in Astelin nasal spray (1 spray twice daily with Flonase) due to congestion. 5.) I advised using saline rinses once daily prior to using nasal sprays for nasal dryness. 6.) I'm ordering a comprehensive sinus CT. 7.) Follow up after sinus CT Check nasal valve at next visit Plan Of Treatment Medication Medication Name Sig Start Date Stop Date Notes Azelastine HCl 0.1 % 1 puff in each nost ril Nasally Twice a day for 30 day(s) 01/22/2024 Treatment Notes Assessment Notes Other I discussed my impression and treatment plan with Devorah. 1.) Continue using Flonase and Claritin for allergy symptoms. Aim up and out towards the ears for nasal sprays to prevent dryness on your septum. 2.) Audiogram reviewed. 3.) Continue TMJ protocol for ear fullness and pain. 4.) I am sending in Astelin nasal spray (1 spray twice daily with Flonase) due to congestion. 5.) I advised using saline rinses once daily prior to using nasal sprays for nasal dryness. 6.) I'm ordering a comprehensive sinus CT. 7.) Follow up after sinus CT Pending Test Test Name Order Date CT Sinus w/o contrast * 01/22/2024 Next Appt Details Follow Up: after sinus CT, R xu: Procedure Notes * Category Sub-Category Detail Notes Nasal endoscopy Anesthesia: Topical applicat ion of Afrin and lidocaine Procedure: Rigid nasal scope pa ssed through both nostrils. The following structures were examined bilaterally: interior nasal cavities, nasopharynx, middle & inferior turbinates, septum, middle & superior meatus, sphenoethmoid recess, maxillary sinus, & and ethmoid sinus Findings: septum deviated to t he left, dryness on right anterior septum, inferior turbinate hypertrophy, no polyps or purulence Progress Notes * Loli SHELTONOB: 7 (28 yo F)Acc No.[id number]:01/22/2024 Established Patient: Devorah NAVARRETE Provider: Jonathan Cabral NP :1995 A ge:28 Y S ex:Female Date:01/22/2024 Address:[address] [place], [place] [address] Pcp:Jeremi Barnett MD Check In:01:28 PM ESTCheck O ut:01:59 PM EST Subjective: * Chief Complaints: * P atient presents for audiogram review * HPI: G eneral: Devorah is a pleasant 28 year old female who presents to the office today for audiogram review. She was last seen in office on 0 12/22/23. S he continues to report feeling like her ears are draining. H er ear occasionally pops and crackles, but this does not relieve the pressure. She admits to occasional tinnitus, and she has a history of 1 set of tubes as a child. She denies ear pain, drainage, or decreased hearing. A udiogram from today revealed type A tymps bilaterally, normal hearing severity 250-8000 Hz bilaterally. Excellent WRS. S he denies known clenching or grinding of her teeth. She reports increased congestion at the end of the day. She reports 2-3 sinus infections annually, which typically last 1 week. She states that her last sinus infection was in July. Symptoms of a sinus infection usually include discolored nasal drainage, nasal congestion, headaches, facial pain, and PND. She has been treated with a Z-Sherman, Doxycycline, and Bactrim in the past for sinus infections. She notes an allergy to Amoxicillin. She used Sudafed, Mucinex, and Singulair in the past without benefit. Without sinus infections, she states that she can breathe well through her nose. She reports a history of seasonal allergies especially with high pollen counts. She has used Flonase and Claritin daily for years without relief and Benadryl at night as needed. History of tonsillectomy in 2022. * ROS: P er HPI. Otherwise, negative. 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 * Family History: F ather: unknown, diagnosed with Diabetes mellitus without mention of complication, type II or unspecified type, not stated as uncontrolled, Unspecified essential hypertension. M other: alive. * Medications: T akingBenadryl Claritin DULoxetine HCl 60 MG Capsule Delayed Release Particles TAKE 1 CAPSULE BY MOUTH ONCE DAILY IN THE MORNING. DO NOT CRUSH OR CHEW Oral Flonase Taking Benadryl Taking Claritin Taking DULoxetine HCl 60 MG Capsule Delayed Release Particles TAKE 1 CAPSULE BY MOUTH ONCE DAILY IN THE MORNING. DO NOT CRUSH OR CHEW Oral Taking Flonase DiscontinuedCefdinir 300 MG Capsule Oral Medication List reviewed and reconciled with the patientDiscontinued Cefdinir 300 MG Capsule Oral Medication List reviewed and reconciled with the patient * Allergies: A ugmentin: diarrhea - Allergyno[Allergies Verified] Objective: * Vitals: W t:209lbs, Ht: 62 in, BMI:38.22Index, Ht-cm: 157.48 cm, Wt-k.8 kg. * Examination: G eneral Examinations: GENERAL APPEARANCE: w ell developed, well nourished, in no acute distress. HEAD: n ormocephalic, atraumatic, right TMJ tenderness noted. EARS: e xternal auditory canals are clear, tympanic membranes are scarred and intact. Type A tymps bilaterally. NOSE: e xternal nose normal, s eptum deviated to the left, dryness on right anterior septum, inferior turbinate hypertrophy, no polyps or purulence. ORAL CAVITY: m ucosa pink and moist, no lesions, teeth/dentures are in good repair. THROAT: P harynx pink, no erythema, no exudate. NECK: n o cervical lymphadenopathy. Assessment: * Assessment: 1. A llergic rhinitis due to pollen - J30.1 (Primary) 2 . D NS (deviated nasal septum) - J34.2 3 . H ypertrophy of both inferior nasal turbinates - J34.3 4 . N zechariah dryness - J34.89 5 . C hronic maxillary sinusitis - J32.0 6 . T MJ tenderness, right - M26.621 Plan: * Treatment: 2. C hronic maxillary sinusitis I maging: CT Sinus w/o contrast * 3.?Others? Notes:I discussed my impression and treatment plan with Devorah. 1.) Continue using Flonase and Claritin for allergy symptoms. Aim up and out towards the ears for nasal sprays to prevent dryness on your septum. 2.) Audiogram reviewed. 3.) Continue TMJ protocol for ear fullness and pain. 4.) I am sending in Astelin nasal spray (1 spray twice daily with Flonase) due to congestion. 5.) I advised using saline rinses once daily prior to using nasal sprays for nasal dryness. 6.) I'm ordering a comprehensive sinus CT. 7.) Follow up after sinus CT?? Clinical Notes: Check nasal valve at next visit?? * Procedures: N zechariah endoscopy: Anesthesia: T opical application of Afrin and lidocaine.? Procedure: R igid nasal scope passed through both nostrils. The following structures were examined bilaterally: interior nasal cavities, nasopharynx, middle & inferior turbinates, septum, middle & superior meatus, sphenoethmoid recess, maxillary sinus, & and ethmoid sinus. Findings: s eptum deviated to the left, dryness on right anterior septum, inferior turbinate hypertrophy, no polyps or purulence. * Procedure Codes: 3 1231 NASAL ENDOSCOPY,DIAGNOSTI * Disposition & Communication: S cribe Attestation: Kristi Angulo (scribe), documented on behalf of JONATHAN López * Follow Up: a fter sinus CT * * Electronically co-signed by Maury Barnard DO, [id number] on 01/27/2024 at 08:09 AM EDT Sign off status: Completed Visit Status: C HK (Check Out) true * Provider: Jonathan Cabral NP Date: 0 01/22/2024 Generated for Darya leiva/Smith/Juanitting on: 0 10/13/2024 06:41 PM EDT History and Physical Notes * HPI (History of Present Illness) Category Sub-Category Detail Notes Category Not es General Devorah is a pleasant 28 year old female who presents to the office today for audiogram review. She was last seen in office on 12/22/23. She continues to report feeling like her ears are draining. Her ear occasionally pops and crackles, but this does not relieve the pressure. She admits to occasional tinnitus, and she has a history of 1 set of tubes as a child. She denies ear pain, drainage, or decreased hearing. Audiogram from today revealed type A tymps bilaterally, normal hearing severity 250-8000 Hz bilaterally. Excellent WRS. She denies known clenching or grinding of her teeth. She reports increased congestion at the end of the day. She reports 2-3 sinus infections annually, which typically last 1 week. She states that her last sinus infection was in July. Symptoms of a sinus infection usually include discolored nasal drainage, nasal congestion, headaches, facial pain, and PND. She has been treated with a Z-Sehrman, Doxycycline, and Bactrim in the past for sinus infections. She notes an allergy to Amoxicillin. She used Sudafed, Mucinex, and Singulair in the past without benefit. Without sinus infections, she states that she can breathe well through her nose. She reports a history of seasonal allergies especially with high pollen counts. She has used Flonase and Claritin daily for years without relief and Benadryl at night as needed. History of tonsillectomy in 2022. Examination Category Sub-Category Detail Notes Category Not es General Examinations GENERAL APPEARANCE: well de veloped, well nourished, in no acute distress EARS: external auditory ca nals are clear, tympanic membranes are scarred and intact. Type A tymps bilaterally NOSE: external nose normal , septum deviated to the left, dryness on right anterior septum, inferior turbinate hypertrophy, no polyps or purulence THROAT: Pharynx pink, no saurabh thema, no exudate NECK: no cervical lymphade nopathy ORAL CAVITY: mucosa pink and mois t, no lesions, teeth/dentures are in good repair HEAD: normocephalic, atrau matic, right TMJ tenderness noted
--- OUTSIDE RECORDS SUMMARY | 2024-02-16 05:30 | XMS_ITS ---
Author Organization [facility] in [place] Address [address] [place] [address] Care Team Providers Care Service Center Specialist Name Role Phone Anibal BA, Jeremi Primary Care Provider UnavailMaury Hahn Unavailable [phone] Encounters Encounter Location Date Provider Diagnosis [facility] [place] [address] [facility] [place] [address] 02/16/2024 Maury Barnard Plan Of Treatment No Information Progress Notes * Loli SHELTONOB: 7 (29 yo F)Acc No.[id number]:02/16/2024 UNLOCKED PROGRESS NOTE Progress Notes Patient: Devorah NAVARRETE Provider: Evan Barnard DO :1995 A ge:28 Y S ex:Female Date:02/16/2024 Address:[address] [place], [place] [address] Pcp:Jeremi Barnett MD Subjective: * Chief Complaints: Objective: Assessment: Plan: * * Electronic signature of Natalie Barnard DO, [id number] on 10/13/2024 at 06:41 PM EDT Sign off status: Pending Visit Status: C ANC (Cancelled) * Provider: Evan Barnard DO Date: 0 02/16/2024 Generated for Printi ng/Faxing/eTransmitting on: 0 10/13/2024 06:41 PM EDT
--- OUTSIDE RECORDS SUMMARY | 2024-02-16 05:40 | XMS_ITS ---
Author Organization [facility] in [place] Address [address] [place] [address] Care Team Providers Care Education Department Registrar Name Role Phone Anibal BA, Jeremi Primary Care Provider UnavailSusanne Schmitz Unavailable [phone] Encounters Encounter Location Date Provider Diagnosis [facility] [place] [address] [facility] [facility] [address] 02/16/2024 Susanne Cabral Plan Of Treatment No Information Progress Notes * Loli SHELTONOB: 7 (29 yo F)Acc No.[id number]:02/16/2024 UNLOCKED PROGRESS NOTE Established Patient: Devorah NAVARRETE Provider: Jonathan Cabral NP :1995 A ge:28 Y S ex:Female Date:02/16/2024 Address:[address] [place], [place] [address] Pcp:Jeremi Barnett MD Subjective: * Chief Complaints: * [address] * Medical History: Objective: * Vitals: Assessment: Plan: * Treatment: * * Electronic signature of Jason Cabral CNP, [id number] on 10/13/2024 at 06:40 PM EDT Sign off status: Pending Visit Status: C ANC (Cancelled) * Provider: Jonathan Cabral NP Date: 0 02/16/2024 Generated for Darya leiva/Smith/Alea on: 0 10/13/2024 06:40 PM EDT
--- OUTSIDE RECORDS SUMMARY | 2024-09-29 08:30 | XMS_ITS | Encounter Summary ---
Author Organization [facility] Address [address] [place] [address] Care Team Providers Care Musical String Maker Name Role Phone Jeremi Barnett MD Primary Care Provider [phone] Reason for Visit * Reason Comments Routine Visit Encounter Details Date Type Department Care Team ([facility] Contact Info) Description 09/29/2024 8:30 AM EDT Routine [facility] [address] [place] [id number] Donovan Vora, DO [address] [place] [address] Third trimester ; 37 weeks gestation of ; Macrosomia; Yeast infection Social History Tobacco Use Types Packs/Day Years Used Date Smoking Tobacco: Never Smokeless Tobacco: Never Alcohol Use Standard Drinks/Week Comments Yes 0 (1 standard drink = 0.6 oz pur e alcohol) Once in a while AUDIT-C Answer Date Recorded Q1: How often do you have a drink containing alcohol? Never 01/11/2024 Q2: How many drinks containi ng alcohol do you have on a typical day when you are drinking? Patient does not drink Q3: How often do you have si x or more drinks on one occasion? 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 female who presents for Routine Visit Patient presents today for Return OB appointment. MEDICATIONS Current Outpatient Medications Medication Instructions azelastine (Astelin) 0.1 % nasal spray Every 12 hours BABY ASPIRIN PO 81 mg doxycycline (VIBRAMYCIN) 100 mg, 2 times daily DULoxetine (Cymbalta) [address] capsule TAKE 1 CAPSULE BY MOUTH ONCE DAILY IN THE MORNING. DO NOT CRUSH OR CHEW Oral for 30 Days MV-Min-Fe Fum-FA-DHA ( 1 PO) Take by mouth ALLERGIES Allergies Allergen Reactions Amoxicillin-Pot Clavulanate Diarrhea Other Reaction(s): diarrhea Clavulanic Acid GI intolerance Penicillin G Sodium [...] tonsillectomy 01/07/2023 Mild persistent asthma without complication ([facility]/HCC) 01/07/2023 Postoperative pain 01/07/2023 Recurrent streptococcal tonsillitis 01/07/2023 Past Medical History: Diagnosis Date Asthma Moderate single current episode of major depressive disorder (HCC) (CMS/HCC) Ovarian cyst 2016 Plantar verruca Tinnitus, bilateral HISTORY PAST MEDICAL HISTORY SOCIAL HISTORY Past Medical History: Diagnosis Date Asthma Moderate single current episode of major depressive disorder (HCC) ([facility]) NAFLD (nonalcoholic fatty liver disease) Ovarian cyst [...] nursing note reviewed. Exam conducted with a senior mobile solutions architect present. Vitals: Estimated body mass index is 41.7 kg/m?? as calculated from the following: Height as of 01/11/24: 5' 2 . Weight as of this encounter: 228 lb. BP: 122/70 Patient's last menstrual period was 01/09/2024. ASSESSMENT & PLAN ICD-10-CM 1. Third trimester Z34.93 POCT urinalysis dipstick manually resulted 2. 37 weeks gestation of Z3A.37 Return OB: Patient presents today for a routine obstetrics appointment. Patient is currently 37w5d . Patient states she is doing well but has complaints of being tired due to current . Patient is also complaining of swelling on her right and it started on yesterday. Pt has a picture to show Vielka on how swollen her foot was. Patient has verbalizes frequent movement. labor precautions was discussed/given and patient was instructed to perform kick counts three times a day. Orders Placed This Encounter Procedures POCT urinalysis dipstick manually resulted Follow Up: Patient is to return to office in 1 week for routine OB appointment. Due to increase in swelling patient to obtain wore note to go down to part-time hours. Documented by Teresa Weber MA on behalf of: Donovan Vora DO documented in this encounter Plan of Treatment Upcoming Encounters Date Type Department Care Team (Late st Contact Info) Description 11/15/2024 1:30 PM EDT Office Visit [facility] [address] [place] [address] Scheduled Orders Name Type Priority Associated Diagnoses Orde r Schedule US OB follow up transabdominal approach Imaging Routine 37 weeks gestation of Macrosomia Expected: 09/29/2024, Expires: 01/30/2025 US biophysical profile w non stress test Imaging Routine 37 weeks gestation of Macrosomia Expected: 09/29/2024 (Approximate), Expires: 04/01/2025 documented as of this encounter Goals Goal Patient Goal Type Associated Problems Recent Progress Patient-Stated? Author Reminders Care Plan OB Reminders No Open Scheduling, Background documented as of this encounter Procedures Procedure Name Priority Date/Time Associated Diagnosis Comments POCT URINALYSIS DIPSTICK Routine 09/29/2024 8:56 AM EDT Third trimester documented in this encounter Results * POCT urinalysis dipstick manually resulted (09/29/2024 8:56 AM EDT) Color, UA Yellow Clarity, UA Clear Glucose, UA Negative Negative - 2000(110) ++++ mg/dL Bilirubin, UA Negative Negative - 4(70) +++ mg/dL Ketones, UA Negative Negative - 160(16) ++++ mg/dL Spec Grav, UA 1.030 1 - 1.03 Blood, UA Negative Negative - 50 Raúl/mcL pH, UA 6.0 5 - 9 Protein, UA Negative Negative - 2000(20) ++++ mg/dL Urobilinogen, UA 0.2 0.2 - 12 mg/dL Leukocytes, UA Negative Negative - 500+++ Zainab/mcL Nitrite, UA Negative Negative - Positive Urine 09/29/2024 8:56 AM EDT Donovan Vora DO POINT OF CARE TEST ENTER/EDIT OR DERABLES Final Result documented in this encounter Visit Diagnoses Diagnosis Third trimester state, incidental 37 weeks gestation of Macrosomia Exceptionally large baby relating to long gestation Yeast infection documented in this encounter Additional Health Concerns Active Problems Noted Date Diagnosed Date OB Reminders 06/16/2024 documented as of this encounter Care Teams Musical String Maker Relationship Specialty Start Date End Date Jeremi Barnett MD [address] [place] [address] PCP - General Internal Medicine 10/17/22 documented as of this encounter
--- OUTSIDE RECORDS SUMMARY | 2024-10-05 15:20 | XMS_ITS | Encounter Summary ---
Author Organization [facility] Address [address] [place] [address] Care Team Providers Care Industrial Engineering Technologist Name Role Phone Jeremi Barnett MD Primary Care Provider [phone] Reason for Visit * Reason Comments Routine Visit Encounter Details Date Type Department Care Team ([facility] Contact Info) Description 10/05/2024 3:20 PM EDT Routine [facility] [address] [place] [address] Krystal Lo, COLLAR FOLDER OPERATOR [address] [place] [address] Third trimester ; 38 weeks gestation of Social History Tobacco Use Types Packs/Day Years [...] 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 Not on file Not on file Not on file documented as of this encounter Last Filed Vital Signs Vital Sign Reading Time Taken Comments Blood Pressure 118/76 10/05/2024 3:29 PM EDT Pulse - - Temperature - - Respiratory Rate - - Oxygen Saturation - - Inhaled Oxygen Concentration - - Weight 104 kg (230 lb) 10/05/2024 3:29 PM EDT Height - - Body Mass Index 42.07 01/11/2024 11:00 AM EDT documented in this encounter Progress Notes * Krystal Lo NP - 10/05/2024 3:20 PM EDT Reason for Appointment: Patient ID: Devorah [...] CRUSH OR CHEW Oral for 30 Days nystatin (Mycostatin) 657205 UNIT/GM powder Topical, 2 times daily MV-Min-Fe Fum-FA-DHA ( 1 PO) Take by [...] tonsillectomy 01/07/2023 Mild persistent asthma without complication ([facility]/HCC) 01/07/2023 Postoperative pain 01/07/2023 Recurrent streptococcal tonsillitis 01/07/2023 Past Medical History: Diagnosis Date Asthma Moderate single current episode of major depressive disorder (HCC) (CMS/HCC) Ovarian cyst 2016 Plantar verruca Tinnitus, bilateral HISTORY PAST MEDICAL HISTORY SOCIAL HISTORY Past Medical History: Diagnosis Date Asthma Moderate single current episode of major depressive disorder (HCC) (CMS/[facility]) NAFLD (nonalcoholic fatty liver disease) [...] nursing note reviewed. Exam conducted with a farm equipment operator present. Vitals: Estimated body mass index is 42.07 kg/m?? as calculated from the following: Height as of 01/11/24: 5' 2 . Weight as of this encounter: 230 lb. BP: 118/76 Patient's last menstrual period was 01/09/2024. ASSESSMENT & PLAN ICD-10-CM 1. Third trimester Z34.93 2. 38 weeks gestation of Z3A.38 Return OB: Patient presents today for a routine obstetrics appointment. Patient is currently 38w4d . Patient states she is doing well but has complaints of being tired due to current . Patient has verbalizes frequent movement. labor precautions was discussed/given and patient was instructed to perform kick counts three times a day. No orders of the defined types were placed in this encounter. Follow Up: Patient is to return to office in 1 week for routine OB appointment. Documented by Krystal Lo NP on behalf of: Krystal Lo NP documented in this encounter Plan of Treatment Upcoming Encounters Date Type Department Care Team (Late st Contact Info) Description 11/15/2024 1:30 PM EDT Office Visit [facility] [address] [place] [address] documented as of this encounter Goals Goal Patient Goal Type Associated Problems Recent Progress Patient-Stated? Author Reminders Care Plan OB Reminders No Open Scheduling, Background documented as of this encounter Visit Diagnoses Diagnosis Third trimester state, incidental 38 weeks gestation of documented in this encounter Additional Health Concerns Active Problems Noted Date Diagnosed Date OB Reminders 06/16/2024 documented as of this encounter Care Teams Industrial Engineering Technologist Relationship Specialty Start Date End Date Jeremi Barnett MD [address] [place] [address] PCP - General Internal Medicine 10/17/22 documented as of this encounter
--- OUTSIDE RECORDS SUMMARY | 2024-10-12 15:50 | XMS_ITS | Encounter Summary ---
Author Organization [facility] Address [address] [place] [address] Care Team Providers Care Pressure Welder Name Role Phone Jeremi Barnett MD Primary Care Provider [phone] Reason for Visit * Reason Comments Routine Visit Encounter Details Date Type Department Care Team ([facility] Contact Info) Description 10/12/2024 3:50 PM EDT Routine [facility] [address] [place] [id number] Donovan Vora, DO [address] [place] [id number] Third trimester ; 39 weeks gestation of Social History Tobacco Use [...] Industry Job Start Date Job End Date [employer] Not on file Not on file Not on file documented as of this encounter Last Filed Vital Signs Vital Sign Reading Time Taken Comments Blood Pressure 120/80 10/12/2024 4:43 PM EDT Pulse - - Temperature - - Respiratory Rate - - Oxygen Saturation - - Inhaled Oxygen Concentration - - Weight 106 kg (233 lb 6.4 oz) 10/12/2024 4:43 PM EDT Height - - Body Mass Index 42.69 01/11/2024 11:00 AM EDT documented in this encounter Progress Notes * Viola Rhodes LPN - 10/12/2024 3:50 PM EDT Reason for Appointment: Patient ID: [...] CHEW Oral for 30 Days nystatin (Mycostatin) 811625 UNIT/GM powder Topical, 2 times daily MV-Min-Fe [...] tonsillectomy 01/07/2023 Mild persistent asthma without complication ([facility]/HCC) 01/07/2023 Postoperative pain 01/07/2023 Recurrent streptococcal tonsillitis 01/07/2023 Past Medical History: Diagnosis Date Asthma Moderate single current episode of major depressive disorder (HCC) (CMS/HCC) Ovarian cyst 2016 Plantar verruca Tinnitus, bilateral HISTORY PAST MEDICAL HISTORY SOCIAL HISTORY Past Medical History: Diagnosis Date Asthma Moderate single current episode of major depressive disorder (HCC) (CMS/[facility]) NAFLD (nonalcoholic fatty liver disease) [...] nursing note reviewed. Exam conducted with a sanitor present. Vitals: Estimated body mass index is 42.69 kg/m?? as calculated from the following: Height as of 01/11/24: 5' 2 . Weight as of this encounter: 233 lb 6.4 oz. BP: 120/80 Patient's last menstrual period was 01/09/2024. ASSESSMENT & PLAN ICD-10-CM 1. Third trimester Z34.93 2. 39 weeks gestation of Z3A.39 Patient presents today for a routine obstetrics appointment. Patient is currently 39w4d with a Estimated Date of Delivery: 10/15/24. Patient had previously discussed IOL with Dr. Vora for actual due date. Pelvic exam performed and patient is currently 1 cm dilated and would need to go in on Thursday10/14/24 for Cytotec. Called [facility] and spoke with Alivia at [facility] and patient placed on books.Patient signed consents for IOL prior to leaving office and packet will be sent to FB. Provider will be notified of IOL date. Patient to return to clinic 6 weeks post . Documented by Viola Rhodes LPN on behalf of: America Thompson PA-C documented in this encounter Plan of Treatment Upcoming Encounters Date Type Department Care Team (Late st Contact Info) Description 11/15/2024 1:30 PM EDT Office Visit [facility] [address] [place] [address] documented as of this encounter Goals Goal Patient Goal Type Associated Problems Recent Progress Patient-Stated? Author Reminders Care Plan OB Reminders No Open Scheduling, Background documented as of this encounter Procedures Procedure Name Priority Date/Time Associated Diagnosis Comments POCT URINALYSIS DIPSTICK Routine 10/12/2024 5:22 PM EDT Third trimester 39 weeks gestation of documented in this encounter Results * (ABNORMAL) POCT urinalysis dipstick manually resulted (10/12/2024 5:22 PM EDT) Color, UA Yellow Clarity, UA Clear Glucose, UA Negative Negative - 2000(110) ++++ mg/dL Bilirubin, UA Negative Negative - 4(70) +++ mg/dL Ketones, UA Negative Negative - 160(16) ++++ mg/dL Spec Grav, UA 1.015 1 - 1.03 Blood, UA Negative Negative - 50 Raúl/mcL pH, UA 6.5 5 - 9 Protein, UA Negative Negative - 2000(20) ++++ mg/dL Urobilinogen, UA 0.2 0.2 - 12 mg/dL Leukocytes, UA Trace Negative - 500+++ Zainab/mcL Nitrite, UA Negative Negative - Positive Urine 10/12/2024 5:22 PM EDT America GHOTRA POINT OF CARE TEST ENTER/EDIT OR DERABLES Final Result documented in this encounter Visit Diagnoses Diagnosis Third trimester state, incidental 39 weeks gestation of documented in this encounter Additional Health Concerns Active Problems Noted Date Diagnosed Date OB Reminders 06/16/2024 documented as of this encounter Care Teams Pressure Welder Relationship Specialty Start Date End Date Jeremi Barnett MD [address] [place] [address] PCP - General Internal Medicine 10/17/22 documented as of this encounter
--- OUTSIDE RECORDS SUMMARY | 2024-10-12 15:57 | XMS_ITS ---
Author Name Auto Generated Organization OHIP Support Name Relationship Address Phone SHANNON SHELTON Next of Kin Unknown [phone] HILDAZAK GOLDSTEINEY Next of Kin Unknown [phone] MYLES SHELTONNE Next of Kin Unknown [phone] HILDA, ANDREW Next of Kin Unknown [phone] SHELTON, SHANNON Next of Kin Unknown [phone] HILDA, ANDREW Next of Kin Unknown [phone] SHELTON, SHANNON Next of Kin Unknown [phone] HILDA, ANDREW Next of Kin Unknown [phone] SHELTON, SHANNON Next of Kin Unknown [phone] HILDA, ANDREW Next of Kin Unknown [phone] SHELTON, SHANNON Next of Kin Unknown [phone] HILDA, ANDREW Next of Kin Unknown [phone] SHELTON, SHANNON Next of Kin Unknown [phone] HILDA, ANDREW Next of Kin Unknown [phone] SHELTON, SHANNON Next of Kin Unknown [phone] HILDA, ANDREW Next of Kin Unknown [phone] SHELTON, SHANNON Next of Kin Unknown [phone] HILDA, ANDREW Next of Kin Unknown [phone] SHELTON, SHANNON Next of Kin Unknown [phone] HILDA, ANDREW Next of Kin Unknown [phone] SHELTON, SHANNON Next of Kin Unknown [phone] HILDA, ANDREW Next of Kin Unknown [phone] SHELTON, SHANNON Next of Kin Unknown [phone] HILDA, ANDREW Next of Kin Unknown [phone] SHELTON, SHANNON Next of Kin Unknown [phone] HILDA, ANDREW Next of Kin Unknown [phone] SHELTON, SHANNON Next of Kin Unknown [phone] HILDA, ANDREW Next of Kin Unknown [phone] SHELTON, SHANNON Next of Kin Unknown [phone] HILDA, ANDREW Next of Kin Unknown [phone] SHELTON, SHANNON Next of Kin Unknown [phone] HILDA, ANDREW Next of Kin Unknown [phone] SHELTON, SHANNON Next of Kin Unknown [phone] HILDA, ANDREW Next of Kin Unknown [phone] SHELTON, SHANNON Next of Kin Unknown [phone] HILDA, ANDREW Next of Kin Unknown [phone] SHELTON, SHANNON Next of Kin Unknown [phone] HILDA, ANDREW Next of Kin Unknown [phone] SHELTON, SHANNON Next of Kin Unknown [phone] HILDA, ANDREW Next of Kin Unknown [phone] SHELTON, SHANNON Next of Kin Unknown [phone] HILDA, ANDREW Next of Kin Unknown [phone] SHELTON, SHANNON Next of Kin Unknown [phone] HILDA, ANDREW Next of Kin Unknown [phone] SHELTON, SHANNNO Next of Kin Unknown [phone] Shelton, Shannon Next of Kin [address] [place] [address] + Ashleigh Shelton Next of Kin [address] [place] [address] + SHANNON SHELTON Next of Kin Unknown [phone] Care Team Providers Care Shingle Cutter Name Role Phone SATYA WILLSY Referring Unavailable JOHANN, NAYELY Attending Unavailable HORACE DRAKE Attending Unavailable JOHANN, NAYELY Attending Unavailable NOELLE, HORACE Attending Unavailable JENNIFER BYERS Attending Unavailable JOHANN, NAYELY Attending Unavailable JOHANN, NAYELY Attending Unavailable JOHANN, NAYELY Attending Unavailable JOHANN, NAYELY Attending Unavailable DYAN WOOTEN Attending Unavailable JOHANN, NAYELY Attending Unavailable JELLY CHERY Attending Unavailable AUBREY MARTIN Attending Unavailable PENG OLIVARES Referring Unavailable JOHANN, NAYELY Attending Unavailable PENG OLIVARES Attending Unavailable NOELLE, HORACE Attending Unavailable JOHANN, NAYELY Attending Unavailable Georgie Guerrier Attending Unavailable Georgie Guerrier Admitting Unavailable JELLY CHERY Primary Care Unavailable Kirill, Chichi Khoury Attending Unavailable Roman Syed Attending Unavailable Kirill, Chichi Khoury Attending Unavailable Kirill, Chichi H Attending Unavailable PROBLEMS DATE TYPE CONDITION / CODE ATTENDING STATUS [facility] 01/03/2024 Unknown Acute vaginitis / N76.0(ICD-10) NA Active [facility] 11/18/2023 Unknown Dysuria / R30.0(ICD-10) Georgie Guerrier Active [facility] PROCEDURES No Procedure Records Found RESULTS US OB FOLLOW UP TRANSABDOMINAL APPROACH Observed: 09/19/2024 10:30 AM Status: F Source: [facility] EPIC Order Comment: US OB SCAN FO R GROWTH Estimated Date of Delivery: 10/15/24 Gestational Age as of 09/15/2024: 35w5d TITLE OF EXAM: OB Ultrasound : REASON FOR EXAM: Large for gestational age. COMPARISON: 08/09/2024 TECHNIQUE: Grayscale and M-mode Doppler imaging is performed. FINDINGS: heart rate: 142 bpm MINNIE: 14.2 cm (7.7-24.8) BPD: 8.8 cm HC: 32.9 cm AC: 33.7 cm FL: 7.1 cm GA for sonogram: 36.4 wk (34.1-38.7) DIANA: 10/15/2024 Weight Estimate: Weight: 3103 gm / 6 lbs, 13 oz (9977-7380 gm) Hadlock Normal: 2863 gm (3332-2471 gm) Hadlock Wt%: 74% for 26.2 wks Limited for: Growth Presentation: Cephalic Amniotic Fluid: 14.2 cm Between 5th and 95 percentile. Largest Fluid Pocket: 5.6 cm Heart Rate: 142 bpm Somatic Motion: Yes IMPRESSION: Normal growth. AC 91%. Dictated and transcribed 09/20/24/dpd This report has been electronically signed and approved by the interpreting radiologist. This report is generated using voice recognition reporting ([employer]). On occasion, [employer] erroneously drops words from the report or replaces the spoken word with a similar sounding word. Please call with any questions/concerns regarding the report. US OB FOLLOW UP TRANSABDOMINAL APPROACH Observed: 08/09/2024 8:55 AM Status: F Source: [facility] EPIC Order Comment: US OB SCAN FO R GROWTH Estimated Date of Delivery: 10/15/24 Gestational Age as of 07/27/2024: 28w4d EXAM: US OB FOLLOW UP TRANSA BDOMINAL APPROACH HISTORY: Inconsistent size. COMPARISON: Ob ultrasound [...] II, MD, PHD at 11-Aug-2024 08:43:14 AM [facility] PATIENT SUMMARY Observed: 06/17/2024 1:25 AM Status: F Source: [facility] ED Patient Summary [address] [address] Patient Discharge Instructions Person Information Name: MACARENA SHELTON Age: 29 Years Arrival Date: 06/16/2024 22:42:49 Discharge Diagnosis: 1:Nausea and vomiting Primary Care Physician: MIRI BA, JELLY Al Provider Information Primary Provider: Chichi Roy M.D. Advanced Manager Applied:None The exam and treatment you received in the Emergency Department were for an urgent problem and are not intended as complete care. It is important that you follow up with a doctor, nurse practitioner, or physician???s investigative assistant for ongoing care. If your symptoms become worse or you do not improve as expected and you are unable to reach your usual health care provider, you should return to the Emergency Department. We are available 24 hours a day. MACARENA SHELTON has been given the following list of patient education materials, prescriptions and follow-up instructions: Follow-up Instructions: With: Address: When: Nayely JOHANN [address] [place]berto Samuels [place] [phone] Business (1) In 3 days 06/20/2024 Comments: Return to the emergency room if your vomiting recurs or any new symptoms. With: Address: When: JELLY MIRI [address] [place] [address], [address] [place] [address] Business (1) In 3 days In the event that this physician does not participate in your insurance network, please consult with your insurance company to find a nearby participating provider. Patient Education Materials: Nausea and Vomiting, Adult A MESSAGE TO ALL PATIENTS REGARDING OPIOIDS PRESCRIPTION OPIOIDS: WHAT YOU NEED TO KNOW Prescription opioids can be used to help relieve epgbzttr-bg-dbcvrn pain and are often prescribed following a [...] guidance from the Food and Drug Administration (www.fda.gov/Drugs/ResourcesForYou). ??? Visit www.cdc.gov/drugoverdose to learn about the risks of opioids abuse and overdose. ??? If you believe you may be struggling with addiction, tell your health health care coach and ask for guidance or call [facility]???S National Helpline at 7-113-169-HELP. v Source: US Department of Health and Human Services/Center for Disease Control & Prevention [facility] Medications Given: Medication Dose Route Sodium Chloride 0.9% intravenous solution 1000.00 mL IV Right Antecubit [place] ondansetron 4.00 mg IV Push Right Antecubit Natanael Medication Information: New Medications [facility]/pharmacy #[id number], [address], [place] [id number], [phone] ondansetron (Zofran ODT 4 mg Tab-Dis) 1 Tablets By Mouth every 6 hours as needed Nausea/Vomiting. Refills: 0. Medications to Continue with No Changes Other Medications cyclobenzaprine By Mouth. ethinyl estradiol-norgestimate (Sprintec) 1 Tablets By Mouth every day. ibuprofen meloxicam (Mobic) By Mouth every day. omeprazole By Mouth every day. venlafaxine By Mouth. Comment: Patient Portal You may access all of your results and other medical record information on our secure patient portal. If you are not signed up for this yet, please contact [employer] at [phone] to get signed up today. LUCIEN Award Nomination The LUCIEN (Diseases Attacking the Immune SYstem) Award is an international recognition program that honors and celebrates the skillful, compassionate care nurses provide every day. Anyone who experiences or observes amazing care being provided by a nurse is encouraged to submit a nomination. To nominate your nurse, use your smart phone to scan the QR code below. You may receive a survey from Kaitlynn Tenorio asking you to rate your care experience. Your feedback is important and will help us understand what we do well and how we can improve the quality of care we provide to you, your loved ones and our community. It???s an honor to serve you. Thank you for choosing [facility] Patient Education Materials: Nausea and Vomiting, Adult Nausea is the [...] added (diluted fruit juice). ??? Eat bland, tpig-pi-xwzjux foods in small amounts as you are able. These foods include bananas, applesauce, rice, lean meats, toast, and crackers. ??? Avoid fluids that contain a lot of sugar or caffeine, such as energy drinks, sports drinks, and soda. ??? Avoid alcohol. ??? Avoid spicy or fatty foods. General instructions ??? Take ozrs-pmj-cdctdvl and prescription medicines only as told by your health care provider. ??? Drink enough fluid to keep your urine pale yellow. ??? Wash your hands often using soap and water for at least 20 seconds. If soap and water are not available, use hand packing shed supervisor. ??? Make sure that everyone in your [...] and drinking to prevent dehydration. ??? Take swxl-mqn-rwaiftl and prescription medicines only as told by [...] provider. Document Revised: 11/15/2021 Document Reviewed: 11/15/2021 [employer] Patient Education ? 2023 [email or web address]. MAVIS Angulo KAITLYN M , have received the following patient education materials/instructions and have verbalized understanding: Patient Education Materials: Nausea and Vomiting, Adult Follow-up Instructions: With: Address: When: Nayely JOHANN [address] [place] [address] Business (1) In 3 days 06/20/2024 Comments: Return to the emergency room if your vomiting recurs or any new symptoms. With: Address: When: [address], [address] [place] [address] Business (1) In 3 days Patient Signature Date Clinician/Nurse Signature Date 06/17/2024 01:25:55 ED PATIENT EDUCATION NOTE Observed: 05/26 1:25 AM Status: F Source: [facility] ED Patient Education Note Gastroenterology Nausea and [...] added (diluted fruit juice). ??? Eat bland, vofd-fq-wliqzr foods in small amounts as you are able. These foods include bananas, applesauce, rice, lean meats, toast, and crackers. ??? Avoid fluids that contain a lot of sugar or caffeine, such as energy drinks, sports drinks, and soda. ??? Avoid alcohol. ??? Avoid spicy or fatty foods. General instructions ??? Take wnum-heu-ccmtaxy and prescription medicines only as told by your health care provider. ??? Drink enough fluid to keep your urine pale yellow. ??? Wash your hands often using soap and water for at least 20 seconds. If soap and water are not available, use hand packing shed supervisor. ??? Make sure that everyone in your [...] and drinking to prevent dehydration. ??? Take ldxs-wjf-ndcungn and prescription medicines only as told by [...] provider. Document Revised: 11/15/2021 Document Reviewed: 11/15/2021 Elsevier Patient Education ? 2023 [email or web address]. ED CLINICAL SUMMARY Observed: 06/17/2024 1:25 AM Status: F Source: [facility] ED Clinical Summary [place] [id number] ED Clinical Summary Person Information Name: MACARENA SHELTON [facility] Age: 29 Years : 1995 Sex: Female Language: St Helenian PCP: JELLY CHERY MD Marital Status: Single Phone: [phone] MRN: Visit Id: Visit Reason: Nausea; Body [...] 06/17/2024 01:25:53 06/17/2024 01:25:53 06/17/2024 01:25:53 ADDRESS: [address] [place] [id number] PHYS DOC NOTES: MEDICAL INFORMATION: Prescriptions Given: New Medications [id number], [address], [place] [id number], [phone] ondansetron (Zofran ODT 4 mg Tab-Dis) 1 [...] Vomiting, Adult Follow up: With: Address: When: Nayely WILLS [facility], [address] [facility] [place] [address] Business (1) In 3 days 06/20/2024 Comments: Return to the emergency room if your vomiting recurs or any new symptoms. With: Address: When: [address], [address] [place] [address] Business (1) In 3 days DIAGNOSIS: 1:Nausea and vomiting ED NOTE-PHYSICIAN Observed: 06/17/2024 1:18 AM Status: F Source: [facility] ED Note-Physician Basic Information Time Seen: Chichi [...] and Complexity of Problems Differential Diagnosis: [] [facility] Data External documents reviewed: [] My [...] Nausea/Vomiting, # 12 tab(s), Refills(s) 0, Pharmacy: [facility]/pharmacy #[id number], 157, cm, 06/16/24 22:56:00 EST, Height/Length Dosing, 97.3, kg, 06/16/24 22:56:00 EST, Weight Dosing Sodium Chloride 0.9% intravenous solution, 1,000 mL, Soln-IV, IV, Once, Stop date 06/16/24 23:27:00 EST, STAT, Start date 06/16/24 23:27:00 EST, Infuse over 61, minute(s) Basic Metabolic Panel CBC w/ Auto Diff eGFR Influenza A&B Ag Rapid COVID Antigen ([facility]) UA with Cult Rflx Medications Administered Given NS 1000 ml Bolus, 1000 mL, IV Zofran 4 mg/2 mL Injection, 4 mg, IV Push Disposition Plan Patient Discharge Condition Stable, improved Discharge Disposition Discharge home Discharge Prescription List Prescriptions Zofran ODT 4 mg Tab-Dis, 4 mg= 1 tab(s), Oral, q6hr, PRN Follow-up With When Contact Information Nayely WILLS In 3 days 06/20/2024 [facility] [address] [facility] , [place] [address]- Business (1) Additional Instructions: Return to the emergency room if your vomiting recurs or any new symptoms. JELLY CHERY In 3 days [address] [facility] [address] [place] [address]- Business (1) Additional Instructions: Patient Education Nausea [...] 08/05/2017 Tobacco - High Risk, 01/15/2024 Former smoker, quit more than 30 days ago Tobacco Use:., 03/24/2024 Former smoker, quit more than 30 days ago Tobacco Use:. Current vaping or e- cigarette use Smokeless Tobacco Use:. Cigarettes, Vaping, 01/15/2024 Never (less than 100 in lifetime) Tobacco Use:., 11/13/2018 Never (less than 100 in lifetime) Tobacco Use:., 10/23/2018 Former smokeless tobacco user, quit more than 30 days ago Smokeless Tobacco Use:., 08/05/2017 Former Smoker, 06/18/2015 Cigarettes, 06/02/2015 Lab Results WBC: 13 E9/L High (06/16/24 23:43:00) RBC: 3.8 E12/L Low (06/16/24 23:43:00) HGB: 12.3 gm/dL (06/16/24 23:43:00) Hct: 35.5 % (06/16/24 23:43:00) MCV: 93.9 fL (06/16/24 23:43:00) MCH: 32.6 pg (06/16/24 23:43:00) MCHC: 34.7 gm/dL (06/16/24 23:43:00) RDW: 13.4 % (06/16/24 23:43:00) Platelet: 223 E9/L (06/16/24 23:43:00) MPV: 7.6 fL (06/16/24 23:43:00) Neutro Auto: 87 % High (06/16/24 23:43:00) Lymph Auto: 7.3 % Low (06/16/24 23:43:00) Amelia Auto: 5.1 % (06/16/24 23:43:00) Eos Auto: 0.2 % (06/16/24 23:43:00) Basophil Auto: 0.4 % (06/16/24 23:43:00) Neutro Absolute: 11.4 E9/L High (06/16/24 23:43:00) Lymph Absolute: 0.9 E9/L Low (06/16/24 23:43:00) Amelia Absolute: 0.7 E9/L (06/16/24 23:43:00) Eos Absolute: 0 E9/L (06/16/24 23:43:00) Basophil Absolute: 0 E9/L (06/16/24 23:43:00) Glucose Lvl: 96 mg/dL (06/16/24 23:43:00) BUN: 8 mg/dL (06/16/24 23:43:00) Creatinine: 0.6 mg/dL (06/16/24 23:43:00) eGFR: 126 mL/min/1.73 m2 (06/16/24 23:43:00) BUN/Creat Ratio: 13 (06/16/24 23:43:00) Sodium Lvl: 134 mmol/L Low (06/16/24 23:43:00) Potassium Lvl: 3.5 mmol/L (06/16/24 23:43:00) Chloride: 104 mmol/L (06/16/24 23:43:00) CO2: 20 mmol/L Low (06/16/24:43:00) AGAP: 14 mEq/L (06/16/24 23:43:00) Calcium Lvl: 8.4 mg/dL Low (06/16/24:43:00) UA Spec Desc: Clean Catch (06/17/24 00:25:00) UA Color: Yellow (06/17/24 00:25:00) UA Clarity: Clear (06/17/24:25:00) UA Spec Grav: 1.034 (06/17/24 00:25:00) UA pH: 6.0 (06/17/24 00:25:00) UA Protein: Trace Abnormal (06/17/24 00:25:00) UA Glucose: Negat (06/17/24 00:25:00) UA Ketones: 2+ Abnormal (06/17/24 00:25:00) UA Bili: Negat (06/17/24 00:25:00) UA Blood: Negat (06/17/24 00:25:00) UA Nitrite: Negat (06/17/24 00:25:00) UA Urobilinogen: 2 mg/dL Abnormal (06/17/24 00:25:00) UA Leuk Est: Negat (06/17/24 00:25:00) Influenzae A Ag: NEGATIVE1 (06/16/24 23:43:00) Influenzae B Ag: NEGATIVE1 (06/16/24 23:43:00) Rapid COVID Ag: Not Detected (06/16/24 23:43:00) Rapid COV Int NEG Ctl: Pass (06/16/24 23:43:00) Rapid COV Int POS Ctl: Pass (06/16/24 23:43:00) Diagnostic Results No qualifying data available. Result Comment: Electronical ly Signed By: Kirill Long, Chichi Khoury\.br\Date and Time Signed: 06/17/24 02:11 EST UA WITH CULT RFLX Collected: 12:25 AM Status: F Source: [facility] TYPE CODE TESTS RESULT OUT OF RANGE REFERENCE UNITS LAB 9194-2([facility]) CLASS:TYPE:PT: URINE COLLECTION METHOD:NOM:* Clean Catch Normal LAB 41665-4([facility]) COLOR:TYPE:PT: URINE:NOM:AUTO Yellow Normal Yellow Result Comment: Microscopic readings are only performed on those samples that meet specific criteria set forth by [facility]. LAB 15348-9([facility]) CLARITY:TYPE:P T:URINE:NOM: Clear Normal Clear LAB 5811-5([facility]) SPECIFIC GRAVITY:RDEN:P T:URINE:SEMIQN :TEST STRIP 1.034 Unknown 1.005-1.030 LAB 5803-2([facility]) PH:LSCNC:PT:UR INE:SEMIQN:LATISHA T STRIP 6.0 Unknown 5.0-9.0 LAB 71644-4([facility]) PROTEIN:PRTHR: PT:URINE:ORD:T EST STRIP Trace Abnormal Negative mg/dL LAB 46613-5([facility]) GLUCOSE:PRTHR: PT:URINE:ORD:T EST STRIP Negative Normal Negative mg/dL LAB 52845-0([facility]) KETONES:PRTHR: PT:URINE:ORD:T EST STRIP.AUTOMATE D 2+ Abnormal Negative mg/dL LAB 27916-1([facility]) BILIRUBIN:PRTH R:PT:URINE:ORD :TEST STRIP.AUTOMATE D Negative Normal Negative mg/dL LAB 94894-2([facility]) HEMOGLOBIN:MCN C:PT:URINE:ELLY IQN:TEST STRIP.AUTOMATE D Negative Normal Negative mg/dL LAB 95406-8([facility]) NITRITE:PRTHR: PT:URINE:ORD:T EST STRIP.AUTOMATE D Negative Normal Negative mg/dL LAB 45932-8([facility]) UROBILINOGEN:M CNC:PT:URINE:S EMIQN:TEST STRIP 2 mg/dL Abnormal Negative mg/dL LAB 63128-6([facility]) LEUKOCYTE ESTERASE:PRTHR :PT:URINE:ORD: TEST STRIP.AUTOMATE D Negative Normal Negative CD:[id number] Performed By: #### [id number] #### [facility] [address] [place] [address] EGFR Collected: 11:43 PM Status: F Source: [facility] TYPE CODE TESTS RESULT OUT OF RANGE REFERENCE UNITS LAB 14386558([facility]) eGFR 126 Normal >=59 mL/min/1 .7 3 m2 Performed By: #### [id number] #### [facility] [address] [place] [address] INFLUENZA A&B AG Collected: 06/16/2024 11:43 PM Stat us: F Source: [facility] TYPE CODE TESTS RESULT OUT OF RANGE REFERENCE UNITS LAB [id number]([facility]) Influenzae A Ag NEGATIVE Normal Negativ e LAB [id number](INC) Influenzae B Ag NEGATIVE Normal Negativ e Result Comment: Test sensiti vity and specificity vary for age group, specimen type, antigen types, and prevalence of disease. Test results must be evaluated in conjunction with other clinical data available to the physician. Individuals who received nasally administered Influenza A vaccine may have positive test results up to 3 days after vaccination. Performed By: #### [id number] #### [facility] [address] [place] [address] BMP Collected: 11:43 PM Status: F Source: [facility] TYPE CODE TESTS RESULT OUT OF RANGE REFERENCE UNITS LAB 2345-7([facility]) GLUCOSE:MCNC :PT:SER/PLAS :QN: 96 Normal 55-199 mg/dL LAB 3094-0([facility]) UREA NITROGEN:MCN C:PT:SER/ISIDRO S:QN: 8 Normal 5-21 mg/dL LAB 2160-0([facility]) CREATININE:M CNC:PT:SER/P LAS:QN: 0.6 Normal 0.5-1.3 mg/dL LAB 3097-3([facility]) UREA NITROGEN/CRE ATININE:MRTO :PT:SER/PLAS :QN: 13 Normal 10-20 No Units LAB 06490-0([facility]) CALCIUM:MCNC :PT:SER/PLAS :QN: 8.4 Low 8.9-11.1 mg/dL LAB 2951-2([facility]) SODIUM:SCNC: PT:SER/PLAS: QN: 134 Low 135-145 mmol/L LAB 2823-3([facility]) POTASSIUM:SC NC:PT:SER/PL :QN: 3.5 Normal 3.5-5.3 mmol/L LAB 2075-0([facility]) CHLORIDE:SCN C:PT:SER/ISIDRO S:QN: 104 Normal 101-111 mmol/L LAB 202-9([facility]) CARBON DIOXIDE:SCNC :PT:SER/PLAS :QN: 20 Low 21-31 mmol/L LAB 91854-6([facility]) ANION GAP:SCNC:PT: SER/PLAS:QN: 14 Normal 6-16 mEq/L Performed By: #### [id number] # ### [facility] [address] [place] [address] CBC W/ AUTO DIFF Collected: 06/16/2024 11:43 PM Stat us: F Source: [facility] TYPE CODE TESTS RESULT OUT OF RANGE REFERENCE UNITS LAB 03907-3([facility]) LEUKOCYTES^^ANJELICA ECTED FOR NUCLEATED ERYTHROCYTES:NCN C:PT:BLD:QN:AUTO MATED COUNT 13.0 High 4.0-11.0 E9/L LAB 789-8([facility]) ERYTHROCYTES:NCN C:PT:BLD:QN:AUTO MATED COUNT 3.8 Low 4.3-5.9 E12/L LAB 718-7([facility]) HEMOGLOBIN:MCNC: PT:BLD:QN: 12.3 Normal 12.0-16.0 gm/dL LAB 4544-3([facility]) HEMATOCRIT:VFR:P T:BLD:QN:AUTOMAT ED COUNT 35.5 Normal 34.0-46.0 % LAB 788-0([facility]) ERYTHROCYTE DISTRIBUTION WIDTH:RATIO:PT:R BC:QN:AUTOMATED COUNT 13.4 Normal 10.9-14.2 % LAB 785-6([facility]) ERYTHROCYTE MEAN CORPUSCULAR HEMOGLOBIN:ENTMA SS:PT:RBC:QN:AUT OMATED COUNT 32.6 Normal 27.0-34.0 pg LAB 786-4([facility]) ERYTHROCYTE MEAN CORPUSCULAR HEMOGLOBIN CONCENTRATION:MC NC:PT:RBC:QN:AUT OMATED COUNT 34.7 Normal 31.4-36.0 gm/dL LAB 787-2([facility]) ERYTHROCYTE MEAN CORPUSCULAR VOLUME:ENTVOL:PT :RBC:QN:AUTOMATE D COUNT 93.9 Normal 80.0-100.0 fL LAB 15584-5([facility]) PLATELET MEAN VOLUME:ENTVOL:PT :BLD:QN:AUTOMATE D COUNT 7.6 Normal 6.4-10.8 fL LAB 777-3([facility]) PLATELETS:NCNC:P T:BLD:QN:AUTOMAT ED COUNT 223.0 Normal 150.0-500.0 E9/L LAB 37790-6([facility]) NEUTROPHILS/100 LEUKOCYTES:NFR:P T:BLD:QN: 87.0 High 36.0-75.0 % LAB 731-0([facility]) LYMPHOCYTES:NCNC :PT:BLD:QN:AUTOM ATED COUNT 7.3 Low 14.0-50.0 % LAB 742-7([facility]) MONOCYTES:NCNC:P T:BLD:QN:AUTOMAT ED COUNT 0.7 Normal 0.2-1.0 E9/L LAB 713-8([facility]) EOSINOPHILS/100 LEUKOCYTES:NFR:P T:BLD:QN:AUTOMAT ED COUNT 0.2 Normal 0.0-8.0 % LAB 704-7([facility]) BASOPHILS:NCNC:P T:BLD:QN:AUTOMAT ED COUNT 0.4 Normal 0.0-2.0 % LAB 751-8([facility]) NEUTROPHILS:NCNC :PT:BLD:QN:AUTOM ATED COUNT 11.4 High 2.0-7.5 E9/L LAB 97560-5([facility]) LYMPHOCYTES:NCNC :PT:BLD:QN: 0.9 Low 1.0-4.0 E9/L LAB 23740-1([facility]) EOSINOPHILS:NCNC :PT:BLD:QN: 0.0 Normal 0.0-0.5 E9/L LAB 40407-9([facility]) BASOPHILS/LEUKOC YTES:NFR.DF:PT:B LD:QN:AUTOMATED COUNT 0.0 Normal 0.0-0.2 E9/L Performed By: #### [id number] # ### [facility] Laboratory [address] [place] [address] RAPID COVID ANTIGEN ([facility]) Collected: 0 06/16/2024 11:43 PM Status: F Source: [facility] TYPE CODE TESTS RESULT OUT OF RANGE REFERENCE UNITS LAB 17343-9(LOINC) SARS CORONAVIRUS+SA RS CORONAVIRUS 2 AG:PRTHR:PT:RE SPIRATORY SYSTEM SPECIMEN:ORD:I A.RAPID Not Detected Normal Not Detected Result Comment: The BD Verit or??? System for Rapid Detection of SARS-CoV-2 is [...] the authorization is terminated or revoked sooner. LAB CD:[id number]( LOINC) Rapid COV Int POS Ctl Pass Normal LAB CD:[id number]( LOINC) Rapid COV Int NEG Ctl Pass Normal Performed By: #### [id number] #### [facility] Laboratory [address] [place] [address] US OB LIMITED 1+ FETUSES Observed: 06/14 11:26 AM Status: F Source: [facility] EPIC Order Comment: US OB INCOMPL ETE ANATOMY Estimated Date of Delivery: 10/15/24 Gestational Age as of 06/09/2024: 21w5d TITLE OF EXAM: OB Ultrasound : REASON FOR EXAM: Follow up for outflow [...] week estimated sonographic age. Dictated and transcribed 06/15/2024/ This report has been electronically signed and approved by the interpreting radiologist. US OB 14+ WEEKS ANATOMY SCAN Observed: 0 05/31/2024 10:00 AM Status: F Source: [facility] EPIC Order Comment: US OB ANATOMY SINGLE W US OB CERVICAL LENGTH Estimated Date of Delivery: 10/15/24 Gestational Age as of 05/10/2024: 20w2d EXAM: OB Ultrasound: REASON FOR EXAM: Anatomy. [...] signed and approved by the interpreting radiologist. XR FOREARM 2 VIEWS RIGHT Observed: 03/28 3:05 PM Status: F Source: [facility] XR FOREARM 2 VIEWS RIGHT Reason for exam: Fall with distal radial pain and bruising Views: 2 Findings: The alignment is normal. No fracture, dislocation or other acute pathology is demonstrated. No soft tissue abnormalities are seen. Impression: Negative exam. Dictated on: 03/28/2024 7:14 PM This report has been electronically signed and approved by the interpreting Radiologist. ED PATIENT EDUCATION NOTE Observed: 02/24 10:39 PM Status: F Source: [facility] ED Patient Education Note Orthopedics Wrist Sprain, [...] safe for you. General instructions ??? Take tdxr-oxm-wxgzotq and prescription medicines only as told by [...] ??? Your pain, bruising, or swelling gets worse. ??? Your skin becomes red, gets a rash, or has open sores. ??? Your pain does not get better or it gets worse. Get help right away if: ??? You have a new or sudden sharp pain in the hand, arm, or wrist. ??? You have tingling or numbness in your hand. ??? Your fingers turn white, very red, or cold and blue. ??? You cannot move your fingers. Summary ??? A wrist sprain is damage to ligaments in your wrist. ??? Wrist sprains can range from mild to severe. ??? Return to your normal activities as told by your health care provider. Ask your health care provider what activities are safe for you. ??? You may need to wear a splint, brace, or cast for a short period of time. This information is not intended to replace advice given to you by your health care provider. Make sure you discuss any questions you have with your health care provider. Document Revised: 09/17/2020 Document Reviewed: 09/17/2020 [employer] Patient Education ? 2023 [employer]. ED PATIENT SUMMARY Observed: 03/24/2024 10:39 PM Status: F Source: [facility] ED Patient Summary [place] [address] Patient Discharge Instructions Person Information Name: MACARENA SHELTON Age: 29 Years Arrival Date: 03/24/2024 18:45:11 Discharge Diagnosis: Accidental fall; Facial abrasion; Right wrist sprain Primary Care Physician: JELLY CHERY MD Provider Information Primary Provider: Luther Ventura DO Advanced Manager Applied:Anh MCWILLIAMS, Kp Weiss The exam and treatment you received in the Emergency Department were for an urgent problem and are not intended as complete care. It is important that you follow up with a doctor, nurse practitioner, or physician???s investigative assistant for ongoing care. If your symptoms become worse or you do not improve as expected and you are unable to reach your usual health care provider, you should return to the Emergency Department. We are available 24 hours a day. MACARENA HSELTON has been given the following list of patient education materials, prescriptions and follow-up instructions: Follow-up Instructions: With: Address: When: [address], [address] [place] [id number] Business (1) In 3 days 03/27/2024 In the event that this physician does not participate in your insurance network, please consult with your insurance company to find a nearby participating provider. Patient Education Materials: Wrist Sprain, Adult A MESSAGE TO ALL PATIENTS REGARDING OPIOIDS PRESCRIPTION OPIOIDS: WHAT YOU NEED TO KNOW Prescription opioids can be used to help relieve pnvfdwxt-vc-wgegyt pain and are often prescribed following a [...] guidance from the Food and Drug Administration (www.fda.gov/Drugs/ResourcesForYou). ??? Visit www.cdc.gov/drugoverdose to learn about the risks of opioids abuse and overdose. ??? If you believe you may be struggling with addiction, tell your health health care coach and ask for guidance or call [facility]???S National Helpline at 0-020-059-HELP. v Source: US Department of Health and Human Services/Center for Disease Control & Prevention [facility] Medications Given: Medication Dose Route No medications found. Medication Information: Medications to Continue with No Changes Other Medications cyclobenzaprine By Mouth. ethinyl estradiol-norgestimate (Sprintec) 1 Tablets By Mouth every day. ibuprofen meloxicam (Mobic) By Mouth every day. omeprazole By Mouth every day. venlafaxine By Mouth. Comment: Pharmacy Information: Patient Portal You may access all of your results and other medical record information on our secure patient portal. If you are not signed up for this yet, please contact [employer] at [phone] to get signed up today. LUCIEN Award Nomination The LUCIEN (Diseases Attacking the Immune SYstem) Award is an international recognition program that honors and celebrates the skillful, compassionate care nurses provide every day. Anyone who experiences or observes amazing care being provided by a nurse is encouraged to submit a nomination. To nominate your nurse, use your smart phone to scan the QR code below. You may receive a survey from [employer] asking you to rate your care experience. Your feedback is important and will help us understand what we do well and how we can improve the quality of care we provide to you, your loved ones and our community. It???s an honor to serve you. Thank you for choosing [facility] Patient Education Materials: Wrist Sprain, Adult A wrist sprain is [...] safe for you. General instructions ??? Take jcnp-oqn-nyohdys and prescription medicines only as told by [...] ??? Your pain, bruising, or swelling gets worse. ??? Your skin becomes red, gets a rash, or has open sores. ??? Your pain does not get better or it gets worse. Get help right away if: ??? You have a new or sudden sharp pain in the hand, arm, or wrist. ??? You have tingling or numbness in your hand. ??? Your fingers turn white, very red, or cold and blue. ??? You cannot move your fingers. Summary ??? A wrist sprain is damage to ligaments in your wrist. ??? Wrist sprains can range from mild to severe. ??? Return to your normal activities as told by your health care provider. Ask your health care provider what activities are safe for you. ??? You may need to wear a splint, brace, or cast for a short period of time. This information is not intended to replace advice given to you by your health care provider. Make sure you discuss any questions you have with your health care provider. Document Revised: 09/17/2020 Document Reviewed: 09/17/2020 [employer] Patient Education ? 2023 [employer]. MAVIS Angulo KAITLYN M , have received the following patient education materials/instructions and have verbalized understanding: Patient Education Materials: Wrist Sprain, Adult Follow-up Instructions: With: Address: When: [address], [address] [place] [address] Business (1) In 3 days 03/27/2024 Patient Signature Date Clinician/Nurse Signature Date 03/24/2024 22:39:01 ED CLINICAL SUMMARY Observed: 03/24/2024 10:39 PM Status: F Source: [facility] ED Clinical Summary [address] [address] ED Clinical Summary Person Information Name: MACARENA SHELTON [place] Age: 29 Years : 1995 Sex: Female Language: St Helenian PCP: JELLY CHERY MD Marital Status: Single Phone: [phone] Visit Id: Visit Reason: Facial abrasion, minor; [...] 03/24/2024 22:38:59 03/24/2024 22:38:59 03/24/2024 22:38:59 ADDRESS: [address] [place] [phone] PHYS DOC NOTES: MEDICAL INFORMATION: Prescriptions Given: Medications to Continue with No Changes Other Medications cyclobenzaprine By Mouth. ethinyl estradiol-norgestimate (Sprintec) 1 Tablets By Mouth every day. ibuprofen meloxicam (Mobic) By Mouth every day. omeprazole By Mouth every day. venlafaxine By Mouth. PATIENT EDUCATION INFORMATION: Instructions: Wrist Sprain, Adult Follow up: With: Address: When: [address], [address] [place], [place] [phone] Business (1) In 3 days 03/27/2024 DIAGNOSIS: Accidental fall; Facial abrasion; Right wrist sprain ED NOTE-PHYSICIAN Observed: 03/24/2024 10:26 PM Status: F Source: [facility] ED Note-Physician Basic Information Time Seen: Kp [...] and symmetry. No ataxia with finger-nose or jvyv-hm-jsud. Intact sensation of bilateral upper and lower [...] JELLY CHERY In 3 days 03/27/[address] [place] [phone] Business (1) Additional Instructions: Patient Education Wrist Sprain, Adult Attestation Patient seen and evaluated by the physician investigative assistant. Attending physician was present in the emergency department and supervised care. This visit was performed by both the physician and an APC. I performed all aspects of the MDM as documented. This report was transcribed using voice recognition software. Every effort was made to ensure accuracy, however, inadvertently computerized workplace rehabilitation officer mistakes may be present. Appropriate healthcare PPE was used in evaluating this patient. The patient was placed in a mask. The healthcare provider was wearing mask, gloves, and utilizing proper hand hygiene. All equipment was properly cleansed. I performed a substantive part of the MDM during the patient???s E/M visit. I personally made or approved [...] 08/05/2017 Tobacco - High Risk, 01/15/2024 Former smoker, quit more than 30 days ago Tobacco Use:., 03/24/2024 Former smoker, quit more than 30 days ago Tobacco Use:. Current vaping or e- cigarette use Smokeless Tobacco Use:. Cigarettes, Vaping, 01/15/2024 Never (less than 100 in lifetime) Tobacco Use:., 11/13/2018 Never (less than 100 in lifetime) Tobacco Use:., 10/23/2018 Former smokeless tobacco user, quit more than 30 days ago Smokeless Tobacco Use:., 08/05/2017 Former Smoker, 06/18/2015 Cigarettes, 06/02/2015 Lab Results No qualifying data available. Diagnostic Results XR Wrist 3+ Views Right * Preliminary * 03/24/24 22:12:39 NEGATIVE: No fracture, dislocation or other acute abnormality Read By: Kp Kamara PA-C Result Comment: Electronical ly Signed By: Kp Kamara PA-C\.br\Date and Time Signed: 03/24/24 22:31 EDT\.br\Electronically Co-Signed By: Luther Ventura DO\.br\Date and Time Co-Signed: 03/25/24 02:57 EDT XR WRIST 3+ VIEWS RIGHT Observed: 2023 8:52 PM Status: F Source: [facility] Exam Date/Time: 03/24/2024 21:18 EDT Reason for [...] ANTHONY Technologist: TADEO Technical Comments Radiation Dose: Kar in mGy = na DAP = na ED PATIENT EDUCATION NOTE Observed: 12/24 10:46 PM Status: C Source: [facility] ED Patient Education Note Orthopedics Musculoskeletal Pain [...] mouth or applied to the skin. Take njmp-bni-mnsjdye and prescription medicines only as told by [...] provider. Document Revised: 09/13/2020 Document Reviewed: 08/22/2020 Elsevier Patient Education ? 2022 [employer]. ED PATIENT SUMMARY Observed: 01/15/2024 10:46 PM Status: C Source: [facility] ED Patient Summary [address] [address] Patient Discharge Instructions Person Information Name: MACARENA SHELTON Age: 28 Years Arrival Date: 01/15/2024 21:22:33 Discharge Diagnosis: Hand pain, left Primary Care Physician: JELLY CHERY MD Provider Information Primary Provider: Roman Syed DO Advanced Manager Applied:Whitney Frost PA-C The exam and treatment you received in the Emergency Department were for an urgent problem and are not intended as complete care. It is important that you follow up with a doctor, nurse practitioner, or physician?s investigative assistant for ongoing care. If your symptoms become worse or you do not improve as expected and you are unable to reach your usual health care provider, you should return to the Emergency Department. We are available 24 hours a day. MACARENA SHELTON has been given the following list of patient education materials, prescriptions and follow-up instructions: Follow-up Instructions: With: Address: When: JELLY CHERY [address] [place] [address], [address] [place] [address] [facility] (1) In 3 days 01/18/2024 Comments: To [...] opioids can be used to help relieve xdkxvetf-cj-cnajno pain and are often prescribed following a [...] unused prescription opioids: Find your community drug take- back program or your pharmacy mail-back program, or flush them down the toilet, following guidance from the Food and Drug Administration (www.fda.gov/Drugs/ResourcesForYou). ? Visit www.cdc.gov/drugoverdose to learn about the risks of opioids abuse and overdose. ? If you believe you may be struggling with addiction, tell your health health care coach and ask for guidance or call [facility]?S National Helpline at 6-548-147-JESW. v Source: US Department of Health and Human Services/Center for Disease Control & Prevention [facility] Medications Given: Medication Dose Route No medications found. Medication Information: Medications to Continue with No Changes Other Medications cyclobenzaprine By Mouth. ethinyl estradiol-norgestimate (Sprintec) 1 Tablets By Mouth every day. ibuprofen meloxicam (Mobic) By Mouth every day. omeprazole By Mouth every day. venlafaxine By Mouth. Comment: Pharmacy Information: Patient Portal You may access all of your results and other medical record information on our secure patient portal. If you are not signed up for this yet, please contact [employer] at [phone] to get signed up today. LUCIEN Award Nomination The LUCIEN (Diseases Attacking the Immune SYstem) Award is an international recognition program that honors and celebrates the skillful, compassionate care nurses provide every day. Anyone who experiences or observes amazing care being provided by a nurse is encouraged to submit a nomination. To nominate your nurse, use your smart phone to scan the QR code below. You may receive a survey from [employer] asking you to rate your care experience. Your feedback is important and will help us understand what we do well and how we can improve the quality of care we provide to you, your loved ones and our community. It?s an honor to serve you. Thank you for choosing [facility] Patient Education Materials: Musculoskeletal Pain Musculoskeletal pain refers to aches [...] mouth or applied to the skin. Take tyrz-yib-ftlxgmv and prescription medicines only as told by [...] provider. Document Revised: 09/13/2020 Document Reviewed: 08/22/2020 [employer] Patient Education ? 2022 [employer]. MAVIS Angulo KAITLYN M , have received the following patient education materials/instructions and have verbalized understanding: Patient Education Materials: Musculoskeletal Pain Follow-up Instructions: With: Address: When: [address], [address] [place] [phone] [employer] ([email or web address] In 3 days 01/18/2024 Comments: To schedule follow-up appointment with your family physician if symptoms not improve in the next 2 to 3 days. Alternate Tylenol, ibuprofen, and ice as needed for pain management. Return to the ED with any worsening symptoms Patient Signature Date Clinician/Nurse Signature Date 01/15/2024 22:46:47 ED CLINICAL SUMMARY Observed: 01/15/2024 10:46 PM Status: C Source: [facility] ED Clinical Summary [place] [id number] ED Clinical Summary Person Information Name: MACARENA SHELTON [place] Age: 28 Years : 1995 Sex: Female Language: St Helenian PCP: JELLY CHERY MD Marital Status: Single Phone: [phone] Visit Id: Visit Reason: Finger injury - [...] 01/15/2024 22:46:45 01/15/2024 22:46:45 01/15/2024 22:46:45 ADDRESS: [address] [place] [phone] PHYS DOC NOTES: MEDICAL INFORMATION: Prescriptions Given: Medications to Continue with No Changes Other Medications cyclobenzaprine By Mouth. ethinyl estradiol-norgestimate (Sprintec) 1 Tablets By Mouth every day. ibuprofen meloxicam (Mobic) By Mouth every day. omeprazole By Mouth every day. venlafaxine By Mouth. PATIENT EDUCATION INFORMATION: Instructions: Musculoskeletal Pain Follow up: With: Address: [facility]: [address], [address] [place] [address] Business (1) In 3 days 01/18/2024 Comments: To schedule follow-up appointment with your family physician if symptoms not improve in the next 2 to 3 days. Alternate Tylenol, ibuprofen, and ice as needed for pain management. Return to the ED with any worsening symptoms DIAGNOSIS: Hand pain, left ED NOTE-PHYSICIAN Observed: 01/15/2024 10:40 PM Status: F Source: [facility] ED Note-Physician Basic Information Time Seen: Margot MCWILLIAMS, Whitney uLu 01/15/2024 21:45 Chief Complaint Pt to ED [...] JELLY CHERY In 3 days 01/18/[address] [place], [place] [phone] Business (1) Additional Instructions: To schedule follow-up appointment with your family physician if symptoms not improve in the next 2 to 3 days. Alternate Tylenol, ibuprofen, and ice as needed for pain management. Return to the ED with any worsening symptoms Patient Education Musculoskeletal Pain Attestation Patient seen and evaluated by the physician investigative assistant. Attending physician was present in the emergency department and supervised care. This visit was performed by both the physician and an APC. I performed all aspects of the MDM as documented. This report was transcribed using voice recognition software. Every effort was made to ensure accuracy, however, inadvertently computerized workplace rehabilitation officer mistakes may be present. Appropriate healthcare PPE [...] 08/05/2017 Tobacco - High Risk, 01/15/2024 Former smoker, quit more than 30 days ago Tobacco Use:. Current vaping or e- cigarette use Smokeless Tobacco Use:. Cigarettes, Vaping, 01/15/2024 Never (less than 100 in lifetime) Tobacco Use:., 11/13/2018 Never (less than 100 in lifetime) Tobacco Use:., 10/23/2018 Former smokeless tobacco user, quit more than 30 days ago Smokeless Tobacco Use:., 08/05/2017 Former Smoker, 06/18/2015 Cigarettes, 06/02/2015 Lab Results No qualifying data available. Diagnostic Results XR Hand 3+ Views Left * Preliminary * 01/15/24 22:34:07 NEGATIVE: No fracture, dislocation or other acute abnormality Read By: Whitney Frost PA-C Result Comment: Electronical ly Signed By: Whitney Frost PA-C\.br\Date and Time Signed: 01/15/24 22:43 EDT\.br\Electronically Co-Signed By: Roman Syed DO\.br\Date and Time Co-Signed: 01/15/24 23:00 EDT XR HAND 3+ VIEWS LEFT Observed: 01/15/20 10:09 PM Status: F Source: [facility] Exam Date/Time: 01/15/2024 22:18 EDT Reason for Exam: Pain, Traumatic Report IMPRESSION: NEGATIVE LEFT HAND. CLINICAL HISTORY: Pain, Traumatic COMPARISONS: NONE AVAILABLE FINDINGS: AP, lateral and oblique views of the left hand demonstrate no evidence of fracture, dislocation, bone or joint abnormality. Ordering Provider: Whitney Frost FINAL REPORT Dictated: 01/16/2024 9:28 am Signer Rylan BA Signed (Electronic Signature): 01/16/2024 9:28 am Signed by: SignRylan bedolla MD Transcribed by: ANTHONY Technologist: BISI Technical Comments Radiation Dose: Ka,r in mGy = na DAP = na UA W/O MICROSCOPIC Collected: 01/03/2024 4:09 PM Sta tus: F Source: [facility] TYPE CODE TESTS RESULT OUT OF RANGE REFERENCE UNITS LAB WUGLU(LOINC) GLUCOSE, URINE Negative NEGATIVE mg /dl LAB WUBIL(LOINC) BILIRUBIN, URINE Negative NEGATIVE LAB WUKET(LOINC) KETONES Negative NEGATIVE LAB WUSG(LOINC) SPECIFIC GRAVITY 1.015 1.002-1.030 LAB WUHGB(LOINC) BLOOD Negative NEGATIVE LAB WUPH(LOINC) PH 7.00 5.0-9.0 LAB WUPRO(LOINC) PROTEIN Negative NEGATIVE mg/dl LAB WUURO(LOINC) UROBILINOGEN 0.20 0.2-1.0 eu/dl LAB WUNIT(LOINC) NITRITE Negative NEGATIVE LAB WULEU(LOINC) LEUKOCYTES Negative NEGATIVE LAB WUCOL(LOINC) COLOR Yellow STRAW-YELLOW LAB WUCHA(LOINC) CHARACTER Clear CLEAR-S L CLOUD Performed By: #### WUA #### [facility] [place] [address] [place] [address] GENITAL CULTURE Observed: 01/03/2024 4:08 PM Status: F Source: [facility] MICROBIOLOGY REPORT [facility], [address] [place] [address], [place], [address] PATIENT: MACARENA SHELTON LOCATION: : 1995 AGE: 28 SEX: F ADM: 01/03/24 Att. Physician: JELLY CHERY Order Id: [id number] Req. Physician: ALPA PORTER Source: vagina Site: genital Collected: 01/03/24 16:08 Current Antibiotics: none Antibiotics comment: C O M M E N T S post culture STATUS OF ORDERED AND REPORTED TESTS GENITAL CULTURE FINAL 01/06/24 GRAM STAIN FINAL 01/04/24 GENITAL CULTURE FINAL 01/06/24 06:43 01/04/24 Normal cynthia; no pathogens isolated-preliminary 01/05/24 Mixed genital cynthia present. 01/06/24 No GC isolated GRAM STAIN FINAL 01/04/24 07:51 01/04/24 No segmented neutrophils observed. Moderate epithelial cells observed. Many large gram positive bacilli. Smear consistent with Normal Vaginal Cynthia. URINE CULTURE Observed: 11/18/2023 9:52 AM Status: F Source: [facility] 75,000 colonies/ml mixed bacterial skin contaminants 2 Days PERFORMED BY: [place] [address] PATHOLOGIST SENIOR TRAINER NAINA NEWMAN M.D. Performed By: #### VAGINITIS + #### [facility] , #### CUU #### [address] VAGINITIS PLUS (VG+) Collected: 11/18/2023 9:52 AM S tatus: F Source: [facility] TYPE CODE TESTS RESULT OUT OF RANGE REFERENCE UNITS LAB CHLAM Chlamydia Trachomotis, CRYSTAL Negative Negative LAB NEIS DERRELL CRYSTAL Neisseria Gonorrhoeae, CRYSTAL Negative Negative Result Comment: Performed at : =[address] [id number] Gandy Dancer: Moon Tan MD, Phone: [phone] LAB TRIC VAG CRYSTAL Tric Vag CRYSTAL Negative Negative LAB ATOPOBIUM Atopobium Vaginae Low - 0 . Result Comment: This test wa s developed and its performance characteristics determined by [facility]. It has not been cleared or approved by the Food and Drug Administration. LAB BVAB2 BVAB2 Low - 0 . Result Comment: This test wa s developed and its performance characteristics determined by [facility]. It has not been cleared or approved by the Food and Drug Administration. LAB MEGASPHAERA Megasphaera Low - 0 . Result Comment: This test wa s developed and its performance characteristics determined by [...] score 3-6: Indicates the presence of BV. LAB ANABELL ALBICAN Anabell Albicans, CRYSTAL Negative Negative Result Comment: This test wa s developed and its performance characteristics determined by [facility]. It has not been cleared or approved by the Food and Drug Administration. LAB ANABELL GLABRAT Anabell Glabrata, CRYSTAL Negative Negative Result Comment: This test wa s developed and its performance characteristics determined by [facility]. It has not been cleared or approved by the Food and Drug Administration. PERFORMED BY: [place] [address] PATHOLOGIST SENIOR TRAINER NAINA NEWMAN M.D. Performed By: #### VAGINITIS + #### [facility] , #### CUU #### [address] ALLERGIES DATE TYPE / CODE NAME / CODE REACTION SEVERITY SOURCE 11/18/2023 Drug Allergy/98019 8002(SNOMED CT) clavulanic acid/[id number](RXN ORM) Nausea, vomiting, diarrhea Unknown [facility] 11/18/2023 Drug Allergy/46304 8002(SNOMED CT) amoxicillin/J279502 675(RXNORM) Vomiting, diarrhea Unknown [facility] /895857107( SNOMED CT) No Known Allergies [facility] /259216389( SNOMED CT) Augmentin Rash [facility] ENCOUNTERS ADMIT/DISCHARGE ACCOUNT NUMBER ADMITTING ENCOUNTER CLASS LOCATION SOURCE 10/12/2024/10/13/19 [id number] Ambulatory Building:[facility] 10/05/2024/10/06/19 [id number] Ambulatory Building:[facility] 09/29/2024/09/30/19 [id number] Ambulatory Building:NOM S BCP OB [facility] 09/22/2024/09/23/19 25 [id number] Ambulatory Building:NOM S BCP OB [facility] 09/19/2024/09/20/19 25 [id number] Ambulatory Building:NOM S BCP OB [facility] 09/15/2024/09/16/19 25 [id number] Ambulatory Building:NOM S BCP OB [facility] 09/08/2024/09/09/19 25 [id number] Ambulatory Building:NOM S BCP OB [facility] EP[facility] 09/05/2024/09/06/19 25 [id number] Ambulatory Building:NOM S SWS UC [facility] 08/25/2024/08/26/19 25 [id number] Ambulatory Building:NOM S BCP OB [facility] 08/09/2024/08/10/19 25 [id number] Ambulatory Building:NOM S BCP OB [facility] 08/09/2024/08/10/19 25 [id number] Ambulatory Building:NOM S BCP OB [facility] 07/27/2024/07/28/19 25 [id number] Ambulatory Building:NOM S BCP OB [facility] EP[facility] 07/12/2024/07/12/19 25 [id number] Ambulatory Building:NOM S BCP OB [facility] 06/16/2024/06/17/19 25 [id number] [facility]: ED-04Bed: CD:[id number] [facility] 06/16/2024 [id number] [facility]EDRoom: ED-04Bed: CD:[id number] [facility] 06/14/2024/06/14/19 25 [id number] Ambulatory Building:NOM SSWSUS [facility] 06/09/2024/06/09/19 25 [id number] Ambulatory Building:NOM S BCP OB [facility] 05/31/2024/05/31/19 25 [id number] Ambulatory Building:NOM S BCP OB [facility] 05/10/2024/05/10/20 24 [id number] Ambulatory Building:NOM S BCP OB [facility] 04/25/2024/04/25/20 24 [id number] Ambulatory Building:NOM S SWS UC [facility] EP[facility] 04/11/2024/04/11/20 24 [id number] Ambulatory Building:NOM S BCP OB [facility] EP[facility] 03/28/2024/03/28/20 24 [id number] Ambulatory Building:NOM SSWSIMG [facility] EP[facility] 03/24/2024/03/24/20 24 [id number] [facility] :EDRoom: Ex-CBed: [address] [facility] 03/15/2024/03/15/20 24 [id number] Ambulatory Building:NOM S SWS UC [facility] 03/10/2024/03/10/20 24 [id number] Ambulatory Building:NOM S BCP OB [facility] 01/15/2024/01/15/20 24 [id number] Emergency [facility] :EDRoom: Ex-CBed: [address] [facility] 01/11/2024/01/11/20 24 [id number] Ambulatory Building:NOM S SWS OB [facility] 01/03/2024/01/03/20 24 [id number] Emergency Building:[facility] Dmitriy: 02Bed: 02 [facility] 11/18/2023/11/18/19 24 [id number] Georgie Guerrier [facility] 10/20/2023/10/20/19 24 [id number] [facility] PAYERS ENCOUNTER GUARANTOR PAYER SUBSCRIBER SOURCE 10/12/2024 MACARENA DICKERSONOB: [id number] [place] [address]Ift: () [facility] MEDICAIDPolicy Number: [id number] Date:2024-03-18 MACARENA DICKERSONOB: [id number] [place] [address] [facility] EPIC 10/12/2024 Secondary Insurance:[facility] Number: [id number] Date:2024-05-25 MACARENA Wills BARTONDOB: [id number] [place] [address] [facility] EPIC 10/05/2024 MACARENA Wills BARTONDOB: [place] [address]Tel: (HP) Primary Insurance:[employer] MEDICAIDPolicy Number: [id number] Date:2024-03-18 MACARENA Wills BARTONDOB: [id number] [place] [address] [facility] EPIC 10/05/2024 Secondary Insurance:[facility] Number: [id number] Date:2024-05-25 MACARENA Wills BARTONDOB: [id number] [place] [address] [facility] EPIC 09/29/2024 MACARENA Wills BARTONDOB: [place] [address]Tel: (HP) Primary Insurance:UNITED HEALTHCARE MEDICAIDPolicy Number: [id number] Date:2024-03-18 MACARENA Wills BARTONDOB: [id number] [place] [address] [facility] EPIC 09/29/2024 Secondary Insurance:[facility] Number: [id number] Date:2024-05-25 MACARENA Wills BARTONDOB: [id number] [place] [address] [facility] EPIC 09/22/2024 MACARENA Wills BARTONDOB: [address]Tel: (HP) Primary Insurance:[employer]CARE MEDICAIDPolicy Number: [id number] Date:2024-03-18 MACARENA Wills BARTONDOB: [id number] [address] [facility] EP[facility] 09/22/2024 Secondary Insurance:[facility]Policy Number: [id number] Date:2024-05-25 MACARENA Johann BARTONDOB: [id number] [place] [address] [facility] EPIC 09/19/2024 MACARENA Johann BARTONDOB: [place] [address]Tel: (HP) Primary Insurance:UNITED HE[employer]CARE MEDICAIDPolicy Number: [id number] Date:2024-03-18 MACARENA Johann BARTONDOB: [id number] [place] [address] [facility] EPIC 09/19/2024 [facility]: [id number] Date:2024-05-25 MACARENA Wills BARTONDOB: [id number] [place] [address] [facility] EPIC 09/15/2024 MACARENA Johann BARTONDOB: [place] [address]Tel: (HP) Primary Insurance:[employer] HE[employer]CARE MEDICAIDPolicy Number: [id number] Date:2024-03-18 MACARENA Johann BARTONDOB: [id number] [place] [address] [facility] EPIC 09/15/2024 Secondary Insurance[facility] Number: [id number] Date:2024-05-25 MACARENA Johann BARTONDOB: [id number] [place] [address] [facility] EPIC 09/08/2024 MACARENA Wills BARTONDOB: [place] [address]Tel: (HP) Primary Insurance:[employer] HEALTHCARE MEDICAIDPolicy Number: [id number] Date:2024-03-18 MACARENA MCLEANONDOB: [id number] [place] [address] [facility] EPIC 09/08/2024 Secondary Insurance[facility] Number: [id number] Date:2024-05-25 MACARENA Wills BARTONDOB: [id number] [place] [address] [facility] EPIC 09/05/2024 MACARENA Wills BARTONDOB: [place] [address]Tel: (HP) Primary Insurance:[employer] MEDICAIDPolicy Number: [id number] Date:2024-03-18 MACARENA Wills BARTONDOB: [id number] [place] [address] [facility] EPIC 09/05/2024 Secondary Insurance[facility] Number: [id number] Date:2024-05-25 MACARENA Wills BARTONDOB: [id number] [place] [address] [facility] EPIC 08/25/2024 MACARENA Wills BARTONDOB: [place] [address]Tel: (HP) Primary Insurance:[employer]CARE MEDICAIDPolicy Number: [id number] Date:2024-03-18 MACARENA Wills BARTONDOB: [id number] [place] [address] [facility] EPIC 08/25/2024 Secondary Insurance[facility] Number: [id number] Date:2024-05-25 MACARENA Wills BARTONDOB: [id number] [place] [address] [facility] EPIC 08/09/2024 MACARENA Johann BARTONDOB: [place] [address]Tel: (HP) Primary Insurance:[employer]CARE MEDICAIDPolicy Number: [id number] Date:2024-03-18 MACARENA Johann BARTONDOB: [id number] [place] [address] [facility] EPIC 08/09/2024 Secondary Insurance:[facility] Number: [id number] Date:2024-05-25 MACARENA Johann BARTONDOB: [id number] [place] [id number] [facility] EPIC 08/09/2024 MACARENA Wills BARTONDOB: [place] [address]Tel: (HP) Primary Insurance:[employer] HE[employer]CARE MEDICAIDPolicy Number: [id number] Date:2024-03-18 MACARENA Johann BARTONDOB: [id number] [address] [facility] EPIC 08/09/2024 Secondary Insurance[facility] Number: [id number] Date:2024-05-25 MACARENA Johann BARTONDOB: [id number] [place] [id number] [facility] EPIC 07/27/2024 MACARENA Wills BARTONDOB: [address]Tel: (HP) Primary Insurance:[employer]CARE MEDICAIDPolicy Number: [id number] Date:2024-03-18 MACARENA Johann BARTONDOB: [id number] [place] [address] [facility] EPIC 07/27/2024 Secondary Insurance[facility] Number: [id number] Date:2024-05-25 MACARENA Wills BARTONDOB: [id number] [place] [address] [facility] EPIC 07/12/2024 MACARENA Wills BARTONDOB: [id number] [place] [address]Rdr: (HP) Primary Insurance:[employer] [facility] MEDICAIDPolicy Number: [id number] Date:2024-03-18 MACARENA MCLEANONDOB: [id number] [place] [address] [facility] EPIC 07/12/2024 Secondary Insurance:[facility]Policy Number: [id number] Date:2024-05-25 MACARENA MCLEANONDOB: [id number] [place] [address] [facility] 06/16/2024 MACARENA MCLEANONDOB: [facility] STTel: [phone] (HP) Primary Insurance:AnthemPolicy Number: [id number] Date:5019-10-22[address] [address]NV: MACARENA M [facility] 06/16/2024 Secondary Insurance:[facility]ID [facility]Policy Number: [id number] Date:4058-87-43VA [address] [place] [address]RI: MACARENA M [facility] 06/16/2024 MACARENA MCLEANONDOB: [facility] STTel: [phone] (HP) Primary Insurance:AnthemPolicy Number: [id number] Date:8100-84-74[address] [place] [address]AF: MACARENA M [facility] 06/16/2024 Secondary Insurance:MEDICAID [facility]icy Number: [id number] Date:9359-81-77BV [address] [place] [address]XK: [facility] 06/14/2024 MACARENA Wills BARTONDOB: [place] [address]How: (HP) Primary Insurance:[facility] MEDICAIDPolicy Number: [id number] Date:2024-03-18 MACARENA Wills BARTONDOB: [id number] [place] [address] [facility] EPIC 06/14/2024 Secondary Insurance:BCBSPolicy Number: [id number] Date:2024-05-25 MACARENA Johann BARTONDOB: [id number] [place] [address] [facility] EPIC 06/09/2024 MACARENA Wills BARTONDOB: [place] [address]Tel: (HP) Primary Insurance:[facility] MEDICAIDPolicy Number: [id number] Date:2024-03-18 MACARENA Wills BARTONDOB: [id number] [place] [address] [facility] EPIC 06/09/2024 Secondary Insurance:BSPolicy Number: [id number] Date:2024-05-25 MACARENA Johann BARTONDOB: [id number] [place] [address] [facility] EPIC 05/31/2024 MACARENA Johann BARTONDOB: [place] [address]Tel: (HP) Primary Insurance:[facility] MEDICAIDPolicy Number: [id number] Date:2024-03-18 MACARENA Johann BARTONDOB: [id number] [place] [address] [facility] EPIC 05/31/2024 Secondary Insurance[facility] Number: [id number] Date:2024-05-25 MACARENA Wills BARTONDOB: [id number] [place] [address] [facility] EPIC 05/10/2024 MACARENA Wills BARTONDOB: [place] [address]Tel: (HP) Primary Insurance:[employer] PLUSPolicy Number: [id number] Date:2022-05-25 MACARENA Wills BARTONDOB: [id number] [place] [address] [facility] EPIC 05/10/2024 Secondary Insurance:[facility] MEDICAIDPolicy Number: [id number] Date:2024-03-18 MACARENA Wills BARTONDOB: [id number] [place] [address] [facility] EPIC 04/25/2024 MACARENA Wills BARTONDOB: [address]66Tel: (HP) Primary Insurance:[employer] DESIGN PLUSPolicy Number: [id number] Date:2022-05-25 MACARENA Wills BARTONDOB: [id number] [place] [address] [facility] EPIC 04/25/2024 Secondary Insurance:[facility] MEDICAIDPolicy Number: [id number] Date:2024-03-18 MACARENA Wills BARTONDOB: [id number] [place] [address] [facility] EPIC 04/11/2024 MACARENA Wills BARTONDOB: [place] [address]Tel: (HP) Primary Insurance:[employer] DESIGN PLUSPolicy Number: [id number] Date:2022-05-25 MACARENA Wills BARTONDOB: [id number] [place] [address] [facility] EPIC 04/11/2024 Secondary Insurance:[facility] MEDICAIDPolicy Number: [id number] Date:2024-03-18 MACARENA MCLEANONDOB: [id number] [place] [address] [facility] 03/28/2024 MACARENA MCLEANONDOB: [place] [address]Rwh: (HP) Primary Insurance:[employer] DESIGN PLUSPolicy Number: [id number] Date:2022-05-25 MACARENA MCLEANONDOB: [id number] [place] [address] [facility] 03/24/2024 MACARENA MCLEANONDOB: [facility] ([facility]) Primary Insurance:AnthemPolicy Number: [id number] Date:5502-37-[address] [address]YB: MACARENA M [facility] 03/24/2024 Secondary Insurance:MEDICAID [facility]Policy Number: [id number] Date:0038-85-74VF [address] [address]XI: MACARENA M [facility] 03/15/2024 MACARENA Wills CARIDADONDOB: [place] [address]Peh: (HP) Primary Insurance:[employer] DESIGN PLUSPolicy Number: [id number] Date:2022-05-25 MACARENA MCLEANONDOB: [id number] [place] [address] [facility] 03/10/2024 MACARENA MCLEANONDOB: [place] [address]Olv: (HP) Primary Insurance:[employer] DESIGN PLUSPolicy Number: [id number] Date:2022-05-25 MACARENA MCLEANONDOB: [id number] [place] [address] [facility] EPIC 01/15/2024 MACARENA MCLEANONDOB: [facility] (HP) Primary Insurance:AnthemPolicy Number: [id number] Date:7354-69-20BU[address] [address]ZF: MACARENA Wills [facility] 01/11/2024 MACARENA Wills BARTONDOB: [place] [address]Cts: (HP) Primary Insurance:HE[employer] DESIGN PLUSPolicy Number: [id number] Date:2022-05-25 MACARENA Wills BARTONDOB: [id number] [place] [address] [facility] EPIC 01/03/2024 MACARENA WINN BARTONDOB: [place], [place] [address]Fpn: (HP) Primary Insurance:BCBSPolicy Number: [id number] Date:2022-05-25 MACARENA WINN BARTONDOB: [id number] [place], [place] [address]Ewl: (HP) [facility] 11/18/2023 Macarena Mcleanon528 [place] [address]Shl: (HP) Primary Insurance:Velma COLMENARES/BSPolicy Number: [id number] Date:2023-11-18 Macarena Wills BartonDOB: [id number] [place] [address]Vch: (HP) [facility] 11/18/2023 Secondary Insurance:Self PayPolicy Number: Effective Date:2023-11-18 NOT GIVENUNK [facility] 10/20/2023 MACARENA STANFORD: [place] [address]Lco: () Primary Insurance:HEALTH DESIGN PLUSPolicy Number: [id number] Date:2022-05-25 MACARENA STANFORD: [id number] [place] [address] [facility] EPIC
[2024-10-13] VITALS (9 sets, daily range): BP systolic 117–134; BP diastolic 65–81; PULSE 60–79
--- OUTSIDE RECORDS SUMMARY | 2024-10-13 18:41 | XMS_ITS | Patient Health Record ---
Author Organization [facility] in [place] Address [address] [place] [address] Care Team Providers Care Loading Unit Tool Setter Name Role Phone Jeremi Barnett MD Primary Care Provider UnavailMaury Hahn Unavailable [phone] Susanne Cabral Unavailable [phone] Ileana Kelley Unavailable [phone] Allergies Allergen (clinical drug ingredient) Drug/Non Drug Allergy documented on EMR Reaction Allergy Type Onset Date Status amoxicillin / clavulanate Augmentin diarrhea Drug Allergy Active Reason For Referral No Information Medications Medication SIG (Take, Route, Fr equency, Duration) Notes Start Date End Date Status Flonase Active Claritin Active DULoxetine HCl 60 MG TAKE 1 CAPSULE BY M OUTH ONCE DAILY IN THE MORNING. DO NOT CRUSH OR CHEW Oral for 30 Days A ctive Azelastine HCl 0.1 % 1 puff in each nost ril Nasally Twice a day for 30 day(s) 01/22/2024 Active Benadryl Active Problems Problem Type SNOMED Code ICD Code Onset Dates Problem Status W/U Status Risk Notes Problem 9911816016929 Tinnitus, bilateral (H93.13) Active confirmed Problem Allergic rhinitis caused by pollen (disorder) (16382290) Allergic rhinitis due to pollen (J30.1) Active confirmed Problem Chronic maxillary sinusitis (27045840) Chronic maxillary sinusitis (J32.0) Active confirmed Problem Bilateral tympanosclerosis (disorder) (72096767546574882) 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 Problem Bilateral tinnitus (0892468672242) Bilateral tinnitus (H93.13) Active confirmed Vital Signs Height 62 in 01/22/2024 Weight 209 lbs 01/22/2024 BMI 38.22 kg/m2 01/22/2024 Procedures Procedure Date Ordered Date Performed Result Body Sit e COMPREHENSIVE HEARING TEST 12/22/2023 01/22/2024 N/A Encounters Encounter Location Date Provider Diagnosis [address] [address] 01/22/2024 Susanne Cabral Allergic rhinitis du e to pollen J30.1 ; DNS (deviated nasal septum) J34.2 ; Hypertrophy of both inferior nasal turbinates J34.3 ; Nasal dryness J34.89 ; Chronic maxillary sinusitis J32.0 and TMJ tenderness, right M26.[address] [address] 12/22/2023 Susanne Cabral Bilateral tinnitus H93.13 ; Sensation of fullness in ear, bilateral H93.8X3 ; DNS (deviated nasal septum) J34.2 ; TMJ tenderness, right M26.621 and Tympanosclerosis of both ears H74.[address] [address] 01/22/2024 Ileana Vazquezberg Tinnitus, bilateral H93.13 Assessments Encounter Date Diagnosis (ICD Code) Assessment Notes Treatment Notes Treatment Clinical Notes Section Notes 12/22/2023 Bilateral tinnitus (ICD-10 - H93.13) 12/22/2023 Sensation of fullness in ear, bilateral (ICD-10 - H93.8X3) 01/22/2024 Tinnitus, bilateral (ICD-10 - H93.13) 01/22/2024 Allergic rhinitis due to pollen (ICD-10 - J30.1) 01/22/2024 DNS (deviated nasal septum) (ICD-10 - J34.2) 01/22/2024 Hypertrophy of both inferior nasal turbinates (ICD-10 - J34.3) 12/22/2023 DNS (deviated nasal septum) (ICD-10 - J34.2) 12/22/2023 TMJ tenderness, right (ICD-10 - M26.621) 01/22/2024 Nasal dryness (ICD-10 - J34.89) 01/22/2024 Chronic maxillary sinusitis (ICD-10 - J32.0) 12/22/2023 Tympanosclerosis of both ears (ICD-10 - H74.03) 01/22/2024 TMJ tenderness, right (ICD-10 - M26.621) 12/22/2023 Other I discussed my impression and treatment plan with Devorah. 1.) I recommend she follow TMJ protocol discussed today including use of a mouth guard, warm compresses and anti-inflammator y medication. Chewing gum and hard food should be avoided. Handout provided today with jaw joint exercises to begin. We discussed that ear pain is related to TMJ and is not due to an ear infection. 2.) I will order an audiogram to assess the fullness sensation in her ears. 3.) She may continue using Flonase and Claritin for allergy symptoms. 4.) She can stop cefdinir as she does not have an ear infection today. 5.) Will follow up after audiogram This visit provided in collaboration with Dr. Barnard 01/22/2024 Other I discussed my impression and [...] valve at next visit Plan Of Treatment Pending Test Test Name Order Date CT Sinus w/o contrast * 01/22/2024 Insurance Providers Payer Name Payer Address Payer Phone Subscriber Number Group Number Insured Name Patient Relationship to Insured Coverage Start Date Coverage End Date RICARDA LANGE [address] [place] [address] [id number] Devorah Caro Self - patient is the insured Medical (General) History Medical History History ICD Code History of Asthma seaosonal allergies ear infections tinnitus Surgical History Surgery Date(Month/Year) tonsilectomy 2022 BMT, Adenoids 2004
--- OUTSIDE RECORDS SUMMARY | 2024-10-13 18:41 | XMS_ITS | Encounter Summary ---
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 Author Reminders Care Plan OB Reminders No Open Scheduling, Background documented as of this encounter Visit Diagnoses Not on filedocumented in this encounter Additional Health Concerns Active Problems Noted Date Diagnosed Date OB Reminders 06/16/2024 documented as of this encounter Care Teams Recycler Relationship Specialty Start Date End Date Jeremi Barnett MD [address] [place] [address] PCP - General Internal Medicine 10/17/22 documented as of this encounter
--- OUTSIDE RECORDS SUMMARY | 2024-10-13 18:41 | XMS_ITS | Encounter Summary ---
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 Author Reminders Care Plan OB Reminders No Open Scheduling, Background documented as of this encounter Procedures Procedure Name Priority Date/Time Associated Diagnosis Comments US OB BPP W NON-STRESS 10/08/2024 10:49 AM EDT documented in this encounter Results * US OB BPP W NON-STRESS (10/08/2024 10:49 AM EDT) Anatomical Region Laterality Modality Other 10/08/2024 10:4 9 AM EDT Narrative 10/08/2024 10:[place] [address] Ultrasound Report Signed Patient: DEVORAH SHELTON MR#: [id number] : 1995 Acct:[id number] Age/Sex: 29 / F ADM Date: 10/07/24 Loc: US Attending Dr: Donovan Vora D.O. Ordering Physician: Donovan Vora D.O. Date of Service: 10/07/24 Procedure(s): US OB BPP w non-stress Accession Number(s): [id number] cc: Donovan Vora D.O.; JELLY CHERY [address] [address] Patient Name: DEVORAH SHELTON MRN: [id number] date: 1995 Sex: F Assigned Patient Location: [facility] Current Patient Location: Accession/Order Number: [id number] Exam Date: 10/08/2024 10:48 Report Date: 10/08/2024 [...] Hernandez M.D. 10/08/2024 10:49 AM Dictation [facility] Electronically authenticated by: [id number] Y Date: 10/08/2024 10:49 Dictated By: Bishnu Hernandez D.O. Signed By: 10/08/24 1052 DD/ 1049 TD/TT: Assembler Piano: Procedure Note Radiology, Radiologist, MD - 10/08/2024 [place] [address] Ultrasound Report Signed Patient: DEVORAH SHELTON MMR#: [id number] : 1995Acct:[id number] Age/Sex: Date: 10/07/24 Loc: US Attending Dr: Donovan Vora D.O. Ordering Physician: Donovan Vora D.O. Date of Service: 10/07/24 Procedure(s): US OB BPP w non-stress Accession Number(s): [id number] cc: Donovan Vora D.O.; JELLY CHERY [place] [address] Patient Name: DEVORAH SHELTON MRN: [facility]:[id number] date: 1995 Sex: F Assigned Patient Location: [facility] Current Patient Location: Accession/Order Number: [id number] Exam Date: 10/08/2024 10:48 Report Date: 10/08/2024 10:49 At the request of: DONOVAN VORA DO Procedure: US OB BPP w non-stress Ultrasound obstetrical biophysical profile HISTORY: Macrosomia There is adequate breathing movement, gross body movement, fetaltone and amniotic fluid volume with a total score of 8 out of 8. The amniotic fluid index is 11.4 cm within normal limits. The heart rate is 133bpm. US/US OB BPP w non-stress IMPRESSION: Adequate ultrasound biophysical profile. Impression dictated by: Bishnu Hernandez M.D. 10/08/2024 10:49 AM Dictation Location[facility] Electronically authenticated by: [id number] Y Date: 0:49 Dictated By: Bishnu Hernandez D.O. Signed By:10/08/24 1052 DD/ 1049 TD/TT: Assembler Piano: us Generic External Data Provider [facility] Final Result documented in this encounter Visit Diagnoses Not on filedocumented in this encounter Additional Health Concerns Active Problems Noted Date Diagnosed Date OB Reminders 06/16/2024 documented as of this encounter Care Teams Jalousies Installer Relationship Specialty Start Date End Date Jelly Chery MD [address] [place] [address] PCP - General Internal Medicine 10/17/22 documented as of this encounter
--- OUTSIDE RECORDS SUMMARY | 2024-10-13 18:41 | XMS_ITS | Encounter Summary ---
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 Author Reminders Care Plan OB Reminders No Open Scheduling, Background documented as of this encounter Visit Diagnoses Not on filedocumented in this encounter Additional Health Concerns Active Problems Noted Date Diagnosed Date OB Reminders 06/16/2024 documented as of this encounter Care Teams Nanny Babysitter Relationship Specialty Start Date End Date Jeremi Barnett MD [address] [place] [address] PCP - General Internal Medicine 10/17/22 documented as of this encounter
--- OUTSIDE RECORDS SUMMARY | 2024-10-13 18:41 | XMS_ITS | Clinical Summary ---
Author Organization [facility] Address [address] [place] [address] Care Team Providers Care Tong Hooker Name Role Phone Jelly Chery MD Primary Care Provider [phone] Allergies Active Allergy Reactions Criticality Noted Date Comments Amoxicillin-Pot Clavulanate Diarrhea 10/07/2022 Other Reaction(s): diarrhea Clavulanic Acid GI intolerance 01/11/2023 Penicillin G Sodium 10/07/2022 Other Reaction(s): vomiting, diarrhea Medications MV-Min-Fe Fum-FA-DHA ( 1 PO) Take by mouth Active BABY ASPIRIN PO Take 81 mg by mouth Active azelastine (Astelin) 0.1 % nasal spray every 12 (twelve) hours 4 Active doxycycline (Vibramycin) 100 MG capsule Take 100 mg by mouth in the morning and 100 mg before bedtime. 4 Active DULoxetine (Cymbalta) [address] capsule TAKE 1 CAPSULE BY MOUTH ONCE DAILY IN THE MORNING. DO NOT CRUSH OR CHEW Oral for 30 Days Active nystatin (Mycostatin) 078365 UNIT/GM powderIndicatio ns:Yeast infection Apply topically in the morning and before bedtime. 60 g 5 09/30/19 26 Active nystatin (Mycostatin) 268077 UNIT/ML suspensionIndic ations:Coated tongue Take 6 mL (600,000 Units) by mouth in the morning and 6 mL (600,000 Units) at noon and 6 mL (600,000 Units) in the evening and 6 mL (600,000 Units) before bedtime. Do all this for 10 days. Swish and spit. Retain in mouth as long as possible. 240 mL 5 09/16/19 25 clindamycin (Cleocin) 300 MG capsuleIndicati ons:Third trimester ,Posit beau culture findings in throat Take 1 capsule (300 mg) by mouth in the morning and 1 capsule (300 mg) in the evening and 1 capsule (300 mg) before bedtime. Do all this for 10 days. 30 capsule 5 09/18/19 25 fluconazole (Diflucan) 150 MG tabletIndicatio ns:Yeast infection Take 1 tablet (150 mg) by mouth 1 (one) time for 1 dose This is a 1 time dose, take single tablet by mouth. 1 tablet 5 09/30/19 25 Active Problems Problem Noted Date Diagnosed Date Abnormal MRI 01/11/2024 Ankle tendinitis 01/11/2024 Atopic dermatitis 01/11/2024 Neuropathy 01/11/2024 Dog bite of hand 02/17/2023 Moderate episode of recurrent major depressive d isorder 01/07/2023 NAFLD (nonalcoholic fatty liver disease) 023 Hyperbilirubinemia 10/20/2022 Allergic rhinitis 10/18/2022 Generalized anxiety disorder 10/18/2022 Estimated Date of Delivery Comme nts Yes 10/15/2024 Based on last me nstrual period of 01/09/2024 Resolved Problems Problem Noted Date Diagnosed Date Resolved Date Chronic fatigue 01/07/2023 04/20/2023 Chronic tonsillitis 01/07/2023 04/14/20 23 Current smoker 01/07/2023 04/20/2023 Overview (01/07/2023): Added secondary to documentation in Social History. Dysphagia 01/07/2023 04/14/2023 History of tonsillectomy 01/07/2023 Mild persistent asthma without complication 01/07/2023 01/13/2023 Postoperative pain 01/07/2023 3 Recurrent streptococcal tonsillitis 01/07/2023 04/14/2023 Fatty liver 10/20/2022 04/14/2023 Encounters Date Type Department Care Team Description 10/13/2024 Abstract [facility] [place] [address] Nayely Vora, 10/12/2024 3:50 PM EDT Routine [facility] [address] [place] [address] Nayely Vora, DO Third trimester ; 39 weeks gestation of 10/12/2024 Bamboo flowsheet [facility] [address] [place] [address] Nayely Vora, DO 10/08/2024 Clinisync Result Encounter [facility] External Department Unsolicited Provider, Generic External Data 10/05/2024 3:20 PM EDT [facility] [address] [facility] [place] [address] Krystal Lo, FLO Third trimester ; 38 weeks gestation of 10/05/2024 Bamboo flowsheet [facility] [address] [facility] [place] [address] Krystal Lo, FLO 10/03/2024 Clinisync Result Encounter [facility] External Department Unsolicited Provider, Generic External Data 10/03/2024 Clinisync Result Encounter [facility] External Department Unsolicited Provider, Generic External Data 09/29/2024 8:30 AM EDT Routine [facility] [place] [address] Nayely Vora, Third trimester ; 37 weeks gestation of ; Macrosomia; Yeast infection 09/29/2024 Bamboo flowsheet [facility] [address] [place] [address] Nayely Vora, 09/25/2024 Clinisync Result Encounter [facility] External Department Unsolicited Nayely Vora, DO 09/23/2024 Clinisync Result Encounter [facility] External Department Unsolicited Nayely Vora, DO 09/22/2024 8:30 AM EDT Routine [facility] [address] [facility] [place] [address] Nayely Vora, Third trimester ; 36 weeks gestation of 09/22/2024 Bamboo flowsheet [facility] OB [address] [place] [address] [place] [address] Nayely Vora, 09/19/2024 10:30 AM EDT Ancillary Procedure [facility] [address] [facility] [place] [address] size inconsistent with dates 09/15/2024 9:00 AM EDT Routine [facility] [address] [place] [address] [place] [address] Nayely Vora, Third trimester ; 35 weeks gestation of ; size inconsistent with dates 09/15/2024 Clinisync Result Encounter [facility] External Department Unsolicited Provider, Generic External Data 09/15/2024 Bamboo flowsheet [facility] OB [address] [place] [address] [place] [address] Nayely Vora, 09/08/2024 11:40 AM EDT Routine [facility] OB [address] [place] [address] [place] [address] Nayely Vora, Third trimester ; 34 weeks gestation of ; Yeast infection 09/08/2024 Bamboo flowsheet [facility] OB [address] [place] [address] [place] [address] Nayely Vora, 09/07/2024 Telephone [facility] OB [address] [place] [address] [place] [address] Nayely Vora, 09/07/2024 Results Follow-Up [facility] [address] [place] [address] Maia Boyer NP 09/05/2024 4:35 PM EDT Office Visit [facility] [address] [place] [address] Gabriela Monzon, DOG BEAUTICIAN 34 weeks gestation of (Primary Dx); Pharyngitis, unspecified etiology; Coated tongue 09/05/2024 Travel 09/01/2024 Travel 08/30/2024 Patient Outreach [facility] [address] [place] [address] America Rene LPN 08/25/2024 8:50 AM EDT Routine [facility] [address] [facility] [address] America Thompson PA Third trimester ; 32 weeks gestation of 08/25/2024 Bamboo flowsheet [facility] [address] [facility] [place] [address] America Thompson PA 08/22/2024 Travel 08/09/2024 9:40 AM EDT Routine [facility] [address] [facility] [place] [address] Nayely Vora DO Third trimester ; 30 weeks gestation of 08/09/2024 9:00 AM EDT Ancillary Procedure [facility] [address] [facility] [place] [address] size inconsistent with dates 07/28/2024 Telephone [facility] OB [address] [facility] [place] [address] Viola Rhodes LPN 07/27/2024 8:30 AM EST Routine [facility] [address] [facility] [address] America Thompson PA Third trimester ; 28 weeks gestation of ; size inconsistent with dates 07/27/2024 Bamboo flowsheet [facility] [address] [place] [address] America Thompson PA 07/24/2024 Travel 07/23/2024 Clinisync Result Encounter [facility] External Department Unsolicited Nayely Vora DO from Last 3 Months Immunizations Immunization Administration Dates Next Due DTaP, Unspecified 02/15/2002, 8,1997,06/29,1997 HPV 9-Valent 12/19/2016,08/22/2016,06/19/2016 Hep A, Adult 12/19/2016,06/19/2016 Hep B, Adolescent or Pediatric 1997,1996,1997 HiB, unspecified 05/22/1998, 8,1997,04/27 IPV 02/15/2002,1997,1997 Influenza, injectable, MDCK, preservative free, quadrivalent 03/15/2024,02/24/2022 Influenza, injectable, quadrivalent 02/22/2021 MMR 02/15/2002,02/20/1998 Meningococcal B, Omv 12/19/2016,08/22/2016 Meningococcal MCV4P 08/22/2016,12/13/2012 Novel [id number], preservative-free 04/11/2009 OPV 05/22/1998 Pfizer Purple Cap SARS-CoV-2 Vaccination 08/14/2020 Tdap 11/11/2019,05/12/2017,12/13/2012 Family History Medical History Relation Name Comments No Known Problems Father unknown Diabetes Maternal Grandfather Garret Lung cancer Maternal Grandfather Garret Asthma Maternal Grandmother Shannon Hypertension Maternal Grandmother Shannon Diabetes Maternal Great-Grandmother Heart disease Maternal Great-Grandmother Diabetes Mother Ashleigh Hyperlipidemia Mother Ashleigh Hypertension Mother Ashleigh Mental illness Mother Ashleigh Migraines Mother Ashleigh Stroke Mother Ashleigh No Known Problems Paternal Grandfather un known No Known Problems Paternal Grandmother un known Relation Name Status Comments Father Maternal Grandfather Garret Alive Maternal Grandmother Shannon Alive Maternal Great-Grandmother Mother Ashleigh Alive Paternal Grandfather Paternal Grandmother Social History Tobacco Use Types Packs/Day Years Used Date Smoking Tobacco: Never Smokeless Tobacco: Never Tobacco Cessation:Counseling Given: Not Answered Alcohol Use Standard Drinks/Week Comments Yes 0 [...] Industry Job Start Date Job End Date [employer] Not on file Not on file Not on file Last Filed Vital Signs Vital Sign Reading Time Taken Comments Blood Pressure 120/80 10/12/2024 4:43 PM EDT Pulse 70 09/05/2024 4:37 PM EDT Temperature 36.3 C (97.4 F) 09/05/2024 4:37 PM EDT Respiratory Rate 18 02/11/2023 11:59 AM EDT Oxygen Saturation 98% 09/05/2024 4:37 PM EDT Inhaled Oxygen Concentration - - Weight 106 kg (233 lb 6.4 oz) 10/12/2024 4:43 PM EDT Height 157.5 cm (5' 2 ) 01/11/2024 11:00 AM EDT Body Mass Index 42.69 01/11/2024 11:00 AM EDT Plan of Treatment Upcoming Encounters Date Type Department Care Team (Late st Contact Info) Description 11/15/2024 1:30 PM EDT Office Visit [facility] [address] [place] [address] Health Maintenance Due Date Last Done Comments Influenza Vaccine Completed 03/15/2024, 02/24/2022, 02/22/2021 Goals Goal Patient Goal Type Associated Problems Recent Progress Patient-Stated? Author Reminders Care Plan OB Reminders No Open Scheduling, Background Procedures Procedure Name Priority Date/Time Associated Diagnosis Comments POCT URINALYSIS DIPSTICK Routine 10/12/2024 5:22 PM EDT Third trimester 39 weeks gestation of US OB BPP W NON-STRESS 10/08/2024 10:49 AM EDT US OB BPP W NON-STRESS 10/03/2024 9:41 AM EDT US OB GROWTH 10/03/2024 9:41 AM EDT POCT URINALYSIS DIPSTICK Routine 09/29/2024 8:56 AM EDT Third trimester US OB BPP W NON-STRESS 09/25/2024 8:24 PM EDT [facility] UA (CLEAN/CATCH) [place] MACHINE OPERATOR/MICRO IF IND. Routine 09/23/2024 9:52 PM EDT POCT URINALYSIS DIPSTICK Routine 09/22/2024 8:50 AM EDT Third trimester US OB FOLLOW UP TRANSABDOMINAL APPROACH Routine 09/19/2024 11:02 AM EDT size inconsistent with dates POCT URINALYSIS DIPSTICK Routine 09/15/2024 9:34 AM EDT Third trimester CULTURE, GROUP B STREP WITH SUSCEPTIBLITY Routine 09/15/2024 9:09 AM EDT Third trimester STREP GP B CULTURE+RFLX Routine 09/15/2024 8:46 AM EDT POCT URINALYSIS DIPSTICK Routine 09/08/2024 11:48 AM EDT Third trimester OTOLARYNGOLOGY INFECTION PANEL Routine 09/05/2024 5:06 PM EDT Pharyngitis, unspecified etiology Coated tongue RAPID DNA COVID Routine 09/05/2024 5:01 PM EDT Pharyngitis, unspecified etiology POCT GLUCOSE Routine 09/05/2024 5:01 PM EDT Coated tongue 34 weeks gestation of INFLUENZA DNA PROBE Routine 09/05/2024 5 :00 PM EDT Pharyngitis, unspecified etiology STREP DNA PROBE Routine 09/05/2024 4:59 PM EDT Pharyngitis, unspecified etiology POCT URINALYSIS DIPSTICK Routine 08/25/2024 9:08 AM EDT Third trimester POCT URINALYSIS DIPSTICK Routine 08/09/2024 9:44 AM EDT Third trimester US OB FOLLOW UP TRANSABDOMINAL APPROACH Routine 08/09/2024 9:15 AM EDT size inconsistent with dates POCT URINALYSIS DIPSTICK Routine 07/27/2024 8:30 AM EST Third trimester US OB INCOMPLETE ANATOMY 07/23/2024 9:15 AM EST from Last 3 Months Results * (ABNORMAL) POCT urinalysis dipstick manually resulted (10/12/2024 5:22 PM EDT) Only the most recent of8 resultswithin the time period is included. Color, UA Yellow Clarity, UA Clear Glucose, UA Negative Negative - 1999(110) ++++ mg/dL Bilirubin, UA Negative Negative - 4(70) +++ mg/dL Ketones, UA Negative Negative - 160(16) ++++ mg/dL Spec Grav, UA 1.015 1 - 1.03 Blood, UA Negative Negative - 50 Raúl/mcL pH, UA 6.5 5 - 9 Protein, UA Negative Negative - 1999(20) ++++ mg/dL Urobilinogen, UA 0.2 0.2 - 12 mg/dL Leukocytes, UA Trace Negative - 500+++ Zainab/mcL Nitrite, UA Negative Negative - Positive Urine 10/12/2024 5:22 PM EDT America GHOTRA POINT OF CARE TEST ENTER/EDIT OR DERABLES Final Result * US OB BPP W NON-STRESS (10/08/2024 10:49 AM EDT) Only the most recent of3 resultswithin the time period is included. Anatomical Region Laterality Modality Other 10/08/2024 10:4 9 AM EDT Narrative 10/08/2024 10:[place] [address] Ultrasound Report Signed Patient: MACARENA SHELTON MR#: [id number] : 1995 Acct:[id number] Age/Sex: 29 / F ADM Date: 10/07/24 Loc: US Attending Dr: Nayely Vora D.O. Ordering Physician: Nayely Vora D.O. Date of Service: 10/07/24 Procedure(s): US OB BPP w non-stress Accession Number(s): [id number] cc: Nayely Vora D.O.; JELLY CHERY [place] [address] Patient Name: MACARENA SHELTON MRN: [id number] date: 1995 Sex: F Assigned Patient Location: [facility] Current Patient Location: Accession/Order Number: [id number] Exam Date: 10/08/2024 10:48 Report Date: 10/08/2024 10:49 At the request of: NAYELY VORA DO Procedure: US OB BPP w [...] Hernandez M.D. 10/08/2024 10:49 AM Dictation Location: [place] [address] Electronically authenticated by: [id number] Y Date: 10/08/2024 10:49 Dictated By: Bishnu Hernandez D.O. Signed By: 10/08/24 1052 DD/ 1049 TD/TT: Asbestos Coverer: Procedure Note Radiology, Radiologist, - 10/08/2024 [place] [address] Ultrasound Report Signed Patient: MACARENA SHELTON MMR#: [id number] : 1995Acct:[id number] Age/Sex: Date: 10/07/24 Loc: US Attending Dr: Nayely Vora D.O. Ordering Physician: Nayely Vora D.O. Date of Service: 10/07/24 Procedure(s): US OB BPP w non-stress Accession Number(s): [id number] cc: Nyaely Vora D.O.; [place] [address] Patient Name: MACARENA SHELTON MRN: [id number] date: 1995 Sex: F Assigned Patient Location: [facility] Current Patient Location: Accession/Order Number: [id number] Exam Date: 10/08/2024 10:48 Report Date: 10/08/2024 10:49 At the request of: NAYELY VORA DO Procedure: US OB BPP w [...] Hernandez M.D. 10/08/2024 10:49 AM Dictation Location: [place] [address] Electronically authenticated by: [id number] Y Date: 0:49 Dictated By: Bishnu Hernandez D.O. Signed By:10/08/24 1052 DD/ 1049 TD/TT: Asbestos Coverer: us Generic External Data Provider [facility] Final Result * US OB GROWTH (10/03/2024 9:41 AM EDT) Anatomical Region Laterality Modality Other 10/03/2024 9:41 AM EDT Narrative 10/03/2024 9:43 [place] [address] Ultrasound Report Signed Patient: MACARENA SHELTON MR#: [id number] : 1995 Acct:[id number] Age/Sex: 29 / F ADM Date: 09/30/24 Loc: US Attending Dr: Nayely Vora D.O. Ordering Physician: Nayely Vora D.O. Date of Service: 09/30/24 Procedure(s): US OB growth Accession Number(s): [id number] cc: Nayely Vora D.O.; JELLY CHERY [place] [id number] Patient Name: MACARENA SHELTON MRN: [id number] date: 1995 Sex: F Assigned Patient Location: [facility] Current Patient Location: [facility] Accession/Order Number: [id number] Exam Date: 10/03/2024 09:34 Report Date: 10/03/2024 09:41 At the request of: NAYELY VORA DO Procedure: US OB BPP w [...] Goyal M.D. 10/03/2024 9:41 AM Dictation Location: [place] [address] Electronically authenticated by: [id number] Y Date: 10/03/2024 09:41 Dictated By: Liliana Goyal M.D. Signed By: 10/03/24 0943 DD/ 0941 TD/TT: Asbestos Coverer: Procedure Note Radiology, Radiologist, - 10/03/2024 [place] [address] Ultrasound Report Signed Patient: MACARENA SHELTON MMR#: [id number] : 1995Acct:[id number] Age/Sex: Date: 09/30/24 Loc: US Attending Dr: Nayely Vora D.O. Ordering Physician: Nayely Vora D.O. Date of Service: 09/30/24 Procedure(s): US OB growth Accession Number(s): [id number] cc: Nayely Vora D.O.; JELLY CHERY [place] [id number] Patient Name: MACARENA SHELTON MRN: [id number] date: 1995 Sex: F Assigned Patient Location: [facility] Current Patient Location: [facility] Accession/Order Number: [id number] Exam Date: 10/03/2024 09:34 Report Date: 10/03/2024 09:41 At the request of: NAYELY VORA DO Procedure: US OB BPP w non-stress CLINICAL DATA: Macrosomia ULTRASOUND OB GROWTH COMPARISON: 07/22/2024 There is a single live intrauterine gestation in cephalic presentation.There is cardiac and somatic activity with heart [...] based on these measurements is 37 weeks 6days +/- 2 weeks 5 days. The estimated weight is 7 lbs. 6 oz. +/- 1 lb.2 oz. (64%). US/US OB growth IMPRESSION: SINGLE [...] MOVEMENTS: 1 or more episodes of breathing lastingat least 30 seconds [Y] 2/2 MINNIE: A single deepest vertical pocket of amniotic fluid greater than 2 cm [Y] 2/2 MINNIE: 18.2 cm Total score: 8/8 IMPRESSION: NORMAL BIOPHYSICAL PROFILE Impression dictated by: Liliana Goyal M.D. 10/03/2024 9:41 AM Dictation Location: [place] [address] Electronically authenticated by: [id number] Y Date: 9:41 Dictated By: Liliana Goyal M.D. Signed By:10/03/2443 DD/ 0 TD/TT: Asbestos Coverer: us Generic External Data Provider [facility] Final Result * (ABNORMAL) [facility] UA (CLEAN/CATCH) [place] MACHINE OPERATOR/MICRO IF IND. (09/23/2024 9:52 PM EDT) COLOR URINE YELLOW YELLOW TBH CLARITY URINE CLEAR CLEAR [facility] SPECIFIC GRAVITY URINE 1.025 1.005 - 1.025 TBH PH URINE 6.5 5.0 - 9.0 TBH PROTEIN URINE TRACE NEG/TRACE mg/dL [facility] GLUCOSE URINE UA NEGATIVE NEGATIVE mg/dL [facility] BILIRUBIN URINE NEGATIVE NEGATIVE TBH KETONES URINE TRACE(A) NEGATIVE mg/dL [facility] BLOOD URINE NEGATIVE NEGATIVE TBH NITRITE URINE NEGATIVE NEGATIVE TBH UROBILINOGEN URINE 1.0 0.2 - 1.0 EU/dL TBH LEUKOCYTE ESTERASE URINE NEGATIVE NEGATIVE TBH URINE MICROSCOPIC INDICATED NO [facility] 09/23/2024 9:52 PM EDT 09/23/2024 10:17 PM EDT Narrative [facility] - 09/23/2024 10:17 PM EDT us Nayely Vielka DO [facility] Final Result [facility] * US OB follow up transabdominal approach (09/19/2024 11:02 AM EDT) Only the most recent of2 resultswithin the time period is included. Anatomical Region Laterality Modality Body Ultrasound 09/21/2024 9:41 AM EDT Narrative 09/21/2024 9:41 AM EDT TITLE OF EXAM: OB Ultrasound: REASON FOR EXAM: Large for gestational age. COMPARISON: 08/09/2024 TECHNIQUE: Grayscale and M-mode Doppler imaging is performed. FINDINGS: heart rate: 142 bpm MINNIE: 14.2 cm (7.7-24.8) BPD: 8.8 cm HC: 32.9 cm AC: 33.7 cm FL: 7.1 cm GA for sonogram: 36.4 wk (34.1-38.7) DIANA: 10/15/2024 Weight Estimate: Weight: 3103 gm / 6 lbs, 13 oz (6056-2918 gm) Hadlock Normal: 2863 gm (2384-5894 gm) [place]lock Wt%: 74% for 26.2 wks Limited for: Growth Presentation: Cephalic Amniotic Fluid: 14.2 cm Between 5th and 95 percentile. Largest Fluid Pocket: 5.6 cm Heart Rate: 142 bpm Somatic Motion: Yes IMPRESSION: Normal growth. AC 91%. Dictated and transcribed 09/20/24dpd This report has been electronically signed and approved by the interpreting radiologist. This report is generated using voice recognition reporting (NextGreatPlace). On occasion, Powerscribe erroneously drops words from the report or replaces the spoken word with a similar sounding word. Please call with any questions/concerns regarding the report. Procedure Note Matti Barlow MD - 09/21/2024 TITLE OF EXAM: OB Ultrasound: REASON FOR EXAM: Large for gestational age. COMPARISON: 08/09/2024 TECHNIQUE: Grayscale and M-mode Doppler imaging is performed. FINDINGS: heart rate: 142 bpm MINNIE: 14.2 cm (7.7-24.8) BPD: 8.8 cm HC: 32.9 cm AC: 33.7 cm FL: 7.1 cm GA for sonogram: 36.4 wk (34.1-38.7) DIANA: 10/15/2024 Weight Estimate: Weight: 3103 gm / 6 lbs, 13 oz (3257-7875 gm) Hadlock Normal: 2863 gm (1951-6776 gm) [place]lock Wt%: 74% for 26.2 wks Limited for: Growth Presentation: Cephalic Amniotic Fluid: 14.2 cm Between 5th and 95 percentile. Largest Fluid Pocket: 5.6 cm Heart Rate: 142 bpm Somatic Motion: Yes IMPRESSION: Normal growth. AC 91%. Dictated and transcribed 09/20/24dpd This report has been electronically signed and approved by theinterpreting radiologist. This report is generated using voice recognition reporting (NextGreatPlace).On occasion, Powerscribe erroneously drops words from the report orreplaces the spoken word with a similar sounding word. Please call withany questions/concerns regarding the report. us Nayely Vielka DO IMG OB US PROCEDURES Final Resul t * CULTURE, GROUP B STREP WITH SUSCEPTIBLITY (09/15/2024 9:09 AM EDT) Swab 09/15/2024 9:09 AM EDT us Nayely Vielka DO LAB BLOOD ORDERABLES Final Resul t EXTERNAL LAB * STREP GP B CULTURE+RFLX (09/15/2024 8:46 AM EDT) STREP GP B CULTURE+RFLX SEE SCANNED REPORT [facility] 09/15/2024 8:46 AM EDT 09/15/2024 12:20 PM EDT Narrative [facility] - 09/22/2024 12:02 PM EDT [employer] DO LAB BLOOD ORDERABLES Final Resul t [facility] * (ABNORMAL) OTOLARYNGOLOGY INFECTION PANEL (09/05/2024 5:06 PM EDT) ZABRINA ALBICANS, GLABRATA, PARAPSILOSIS, TROPICALIS (OTOLARYNGOLOGY) 0.000 19.961 - 24.689 ppm 09/07/2024 8:26 AM EDT [facility] ZABRINA ALBICANS, GLABRATA, PARAPSILOSIS, TROPICALIS (OTOLARYNGOLOGY) Not Detected 19.961 - 24.689 ppm 09/07/2024 8:26 AM EDT [facility] ASPERGILLUS FLAVUS, FUMIGATUS, NIGER, TERREUS (OTOLARYNGOLOGY) 0.000 23.000 - 30.981 ppm 09/07/2024 8:26 AM EDT [facility] ASPERGILLUS FLAVUS, FUMIGATUS, NIGER, TERREUS (OTOLARYNGOLOGY) Not Detected 23.000 - 30.981 ppm 09/07/2024 8:26 AM EDT [facility] STREPTOCOCCUS PYOGENES (GROUP A STREP) (OTOLARYNGOLOGY) 0.000 19.961 - 24.689 ppm 09/07/2024 8:26 AM EDT [facility] STREPTOCOCCUS PYOGENES (GROUP A STREP) (OTOLARYNGOLOGY) Not Detected 19.961 - 24.689 ppm 09/07/2024 8:26 AM EDT [facility] [place] [place] STREPTOCOCCUS PNEUMONIAE (OTOLARYNGOLOGY) 0.000 19.961 - 24.689 ppm 09/07/2024 8:26 AM EDT [facility] [place] STREPTOCOCCUS PNEUMONIAE (OTOLARYNGOLOGY) Not Detected 19.961 - 24.689 ppm 09/07/2024 8:26 AM EDT [facility] [place] [place] STREPTOCOCCUS AGALACTIAE (GROUP B STREP) (OTOLARYNGOLOGY) 0.000 19.961 - 24.689 ppm 09/07/2024 8:26 AM EDT [facility] [place] [place] STREPTOCOCCUS AGALACTIAE (GROUP B STREP) (OTOLARYNGOLOGY) Not Detected 19.961 - 24.689 ppm 09/07/2024 8:26 AM EDT [facility] [place] [place] STAPHYLOCOCCUS AUREUS (OTOLARYNGOLOGY) 0.000 19.961 - 24.689 ppm 09/07/2024 8:26 AM EDT [facility] [place] [place] STAPHYLOCOCCUS AUREUS (OTOLARYNGOLOGY) Not Detected 19.961 - 24.689 ppm 09/07/2024 8:26 AM EDT [facility] [place] [place] PSEUDOMONAS AERUGINOSA (OTOLARYNGOLOGY) 0.000 19.961 - 24.689 ppm 09/07/2024 8:26 AM EDT [facility] [place] [place] PSEUDOMONAS AERUGINOSA (OTOLARYNGOLOGY) Not Detected 19.961 - 24.689 ppm 09/07/2024 8:26 AM EDT [facility] [place] PROTEUS MIRABILIS, VULGARIS (OTOLARYNGOLOGY) 0.000 19.961 - 24.689 ppm 09/07/2024 8:26 AM EDT [facility] [place] [place] PROTEUS MIRABILIS, VULGARIS (OTOLARYNGOLOGY) Not Detected 19.961 - 24.689 ppm 09/07/2024 8:26 AM EDT [facility] MORAXELLA CATARRHALIS (OTOLARYNGOLOGY) 0.000 19.961 - 24.689 ppm 09/07/2024 8:26 AM EDT [facility] MORAXELLA CATARRHALIS (OTOLARYNGOLOGY) Not Detected 19.961 - 24.689 ppm 09/07/2024 8:26 AM EDT [facility] KLEBSIELLA PNEUMONIAE, OXYTOCA (OTOLARYNGOLOGY) 0.000 19.961 - 24.689 ppm 09/07/2024 8:26 AM EDT [facility] [place] KLEBSIELLA PNEUMONIAE, OXYTOCA (OTOLARYNGOLOGY) Not Detected 19.961 - 24.689 ppm 09/07/2024 8:26 AM EDT [facility] [place] VARICELLA ZOSTER VIRUS (HUMAN HERPESVIRUS 3) (OTOLARYNGOLOGY) 0.000 23.000 - 31.749 ppm 09/07/2024 8:26 AM EDT [facility] [place] VARICELLA ZOSTER VIRUS (HUMAN HERPESVIRUS 3) (OTOLARYNGOLOGY) Not Detected 23.000 - 31.749 ppm 09/07/2024 8:26 AM EDT [facility] HERPES SIMPLEX VIRUS 1, 2 (OTOLARYNGOLOGY) 0.000 23.000 - 30.405 ppm 09/07/2024 8:26 AM EDT [facility] HERPES SIMPLEX VIRUS 1, 2 (OTOLARYNGOLOGY) Not Detected 23.000 - 30.405 ppm 09/07/2024 8:26 AM EDT [facility] HAEMOPHILUS INFLUENZAE (OTOLARYNGOLOGY) 0.000 19.961 - 24.689 ppm 09/07/2024 8:26 AM EDT [facility] HAEMOPHILUS INFLUENZAE (OTOLARYNGOLOGY) Not Detected 19.961 - 24.689 ppm 09/07/2024 8:26 AM EDT [facility] FUSOBACTERIUM NUCLEATUM, NECROPHORUM (OTOLARYNGOLOGY) 0.000 19.961 - 24.689 ppm 09/07/2024 8:26 AM EDT [facility] FUSOBACTERIUM NUCLEATUM, NECROPHORUM (OTOLARYNGOLOGY) Not Detected 19.961 - 24.689 ppm 09/07/2024 8:26 AM EDT [facility] ESCHERICHIA COLI (OTOLARYNGOLOGY) 0.000 19.961 - 24.689 ppm 09/07/2024 8:26 AM EDT [facility] ESCHERICHIA COLI (OTOLARYNGOLOGY) Not Detected 19.961 - 24.689 ppm 09/07/2024 8:26 AM EDT [facility] ENTEROBACTER CLOACAE COMPLEX, KLEBSIELLA (ENTEROBACTER) AEROGENES (OTOLARYN 0.000 19.961 - 24.689 ppm 09/07/2024 8:26 AM EDT [facility] ENTEROBACTER CLOACAE COMPLEX, KLEBSIELLA (ENTEROBACTER) AEROGENES (OTOLARYN Not Detected 19.961 - 24.689 ppm 09/07/2024 8:26 AM EDT [facility] LAKESHA-ABDALLA VIRUS (HUMAN HERPESVIRUS 4) (OTOLARYNGOLOGY) 0.000 23.000 - 30.191 ppm 09/07/2024 8:26 AM EDT [facility] LAKESHA-ABDALLA VIRUS (HUMAN HERPESVIRUS 4) (OTOLARYNGOLOGY) Not Detected 23.000 - 30.191 ppm 09/07/2024 8:26 AM EDT [facility] ADENOVIRUS (OTOLARYNGOLOGY) 0.000 23.000 - 32.147 ppm 09/07/2024 8:26 AM EDT [facility] ADENOVIRUS (OTOLARYNGOLOGY) Not Detected 23.000 - 32.147 ppm 09/07/2024 8:26 AM EDT [facility] CUTIBACTERIUM (PROPIONIBACTERIUM ) ACNES (OTOLARYNGOLOGY) 0.000 19.961 - 24.689 ppm 09/07/2024 8:26 AM EDT [facility] CUTIBACTERIUM (PROPIONIBACTERIUM ) ACNES (OTOLARYNGOLOGY) Not Detected 19.961 - 24.689 ppm 09/07/2024 8:26 AM EDT [facility] ENTEROCOCCUS FAECALIS, FAECIUM (OTOLARYNGOLOGY) 0.000 19.961 - 24.689 ppm 09/07/2024 8:26 AM EDT [facility] ENTEROCOCCUS FAECALIS, FAECIUM (OTOLARYNGOLOGY) Not Detected 19.961 - 24.689 ppm 09/07/2024 8:26 AM EDT [facility] ENTEROVIRUS (BARKER) (OTOLARYNGOLOGY) 0.000 23.000 - 31.169 ppm 09/07/2024 8:26 AM EDT [facility] ENTEROVIRUS (BARKER) (OTOLARYNGOLOGY) Not Detected 23.000 - 31.169 ppm 09/07/2024 8:26 AM EDT [facility] FUSARIUM OXYSPORUM, SOLANI (OTOLARYNGOLOGY) 30.238(A) 23.000 - 30.331 ppm 09/07/2024 8:26 AM EDT [facility] FUSARIUM OXYSPORUM, SOLANI (OTOLARYNGOLOGY) Detected(A) 23.000 - 30.331 ppm 09/07/2024 8:26 AM EDT [facility] CYTOMEGALOVIRUS (HUMAN HERPESVIRUS 5) (OTOLARYNGOLOGY) 0.000 23.000 - 31.046 ppm 09/07/2024 8:26 AM EDT [facility] CYTOMEGALOVIRUS (HUMAN HERPESVIRUS 5) (OTOLARYNGOLOGY) Not Detected 23.000 - 31.046 ppm 09/07/2024 8:26 AM EDT [facility] Other 09/05/2024 5:06 PM EDT 09/07/2024 1:28 AM EDT us Gabriela Monzon NP LAB BLOOD ORDERABLES Final Result [facility] [address] [place] [address] * RAPID DNA COVID (09/05/2024 5:01 PM EDT) COVID-19 NAAT negative Negative Nasal 09/05/2024 5:01 PM EDT us Gabriela Monzon DOG BEAUTICIAN POINT OF CARE TEST ENTER/ED IT ORDERABLES Final Result * POCT glucose (09/05/2024 5:01 PM EDT) Pathologist [facility] Glucose Blood, POC 96 mg/dL Blood Capillary blood specimen / Unknown 09/05/2024 5:01 PM EDT us Gabriela Monzon DOG BEAUTICIAN POINT OF CARE TEST ENTER/ED IT ORDERABLES Final Result * INFLUENZA DNA PROBE (09/05/2024 5:00 PM EDT) INFLUENZA A negative Negative INFLUENZA B negative Negative Nasal 09/05/2024 5:00 PM EDT Gabriela Mnozon DOG BEAUTICIAN POINT OF CARE TEST ENTER/ED IT ORDERABLES Final Result * STREP DNA PROBE (09/05/2024 4:59 PM EDT) RESULT negative Negative Throat 09/05/2024 4:59 PM EDT Gabriela Monzon DOG BEAUTICIAN POINT OF CARE TEST ENTER/ED IT ORDERABLES Final Result * US OB INCOMPLETE ANATOMY (07/23/2024 9:15 AM EST) Anatomical Region Laterality Modality Other 07/23/2024 9:15 AM EST Narrative 07/23/2024 9:18 AM EST [address] [address] Ultrasound Report Signed Patient: MACARENA SHELTON MR#: [id number] : 1995 Acct:[id number] Age/Sex: 29 / F ADM Date: 07/22/24 Loc: US Attending Dr: Nayely Vora D.O. Ordering Physician: Nayely Vora D.O. Date of Service: 07/22/24 Procedure(s): US OB incomplete anatomy Accession Number(s): [id number] cc: Nayely Vora D.O.; JELLY CHERY [place] [id number] Patient Name: MACARENA SHELTON MRN: [id number] date: 1995 Sex: F Assigned Patient Location: US Current Patient Location: Accession/Order Number: [id number] Exam Date: 07/23/2024 09:13 Report Date: 07/23/2024 09:15 At the request of: NAYELY VORA DO Procedure: US OB incomplete anatomy [...] rate of 134 bpm. Impression dictated by: Noel Barfield M.D.07/23/2024 9:15 AM Dictation Location: [place] [address] Electronically authenticated by: [id number] Y Date: 07/23/2024 09:15 Dictated By: Noel Barfield M.D. Signed By: 07/23/24917 DD/ 4 TD/TT: Asbestos Coverer: Procedure Note Radiology, Radiologist, - 07/23/2024 [place] [address] Ultrasound Report Signed Patient: MACARENA SHELTON MMR#: [id number] : 1995Acct:[id number] Age/Sex: 29 / FADM Date: 07/22/24 Loc: US Attending Dr: Nayely Vora D.O. Ordering Physician: Nayely Vora D.O. Date of Service: 07/22/24 Procedure(s): US OB incomplete anatomy Accession Number(s): [id number] cc: Nayely Vora D.O.; JELLY CHERY [address] [address] Patient Name: MACARENA SHELTON MRN: [facility]:[id number] date: 1995 Sex: F Assigned Patient Location: US Current Patient Location: Accession/Order Number: [id number] Exam Date: 07/23/2024 09:13 Report Date: 07/23/2024 09:15 At the request of: NAYELY VORA DO Procedure: US OB incomplete anatomy US OB incomplete anatomy 07/22/2024 8:35 PM SIGNS AND SYMPTOMS: 10/15/2024 ENCOUNTER FOR FOLLOW UP OF ANATOMY Z36.2 PROTOCOL: Transabdominal imaging COMPARISON: 03/10/2024 FINDINGS: A normal four-chamber heart is visualized. There is an estimated fetalheart rate of 134 bpm. Estimated gestational age is 27 weeks and 6 days. US/US OB incomplete anatomy IMPRESSION: A normal four-chamber heart is visualized. There is an estimated fetalheart rate of 134 bpm. Impression dictated by: Noel Barfield M.D.07/23/2024 9:15 AM Dictation Location: [place] [address] Electronically authenticated by: [id number] Y Date: 9:15 Dictated By: Noel Barfield M.D. Signed By:07/23/24917 DD/ 4 TD/TT: Asbestos Coverer: Nayely Vora DO [facility] Final Result from Last 3 Months Additional Health Concerns Active Problems Noted Date Diagnosed Date OB Reminders 06/16/2024 Insurance [facility] MEDICA[facility] Care Teams Tong Hooker Relationship Specialty Start Date End Date Jelly Chery MD [address] [place] [phone] PCP - General Internal Medicine 10/17/22
--- OUTSIDE RECORDS SUMMARY | 2024-10-13 18:41 | XMS_ITS | Referral Summary ---
Author Organization [facility] Address [address] [place] [address] Care Team Providers Care Applied Anthropologist Name Role Phone Jeremi Barnett MD Primary Care Provider [phone] Allergies No known active allergies Medications Medication Sig Dispensed Refills Start Date End Date Status albuterol 90 mcg/actuation inhaler Inhale 1 puff every 4 (four) hours if needed. Active DULoxetine (Cymbalta) [address] capsule Take 30 mg by mouth in the morning. 10/21/2022 Active Active Problems Problem Noted Date Diagnosed Date Dog bite of right hand 02/17/2023 Social History Tobacco Use Types Packs/Day Years Used Date Smoking Tobacco: Never Smokeless Tobacco: Never Tobacco Cessation:Counseling Given: Not Answered Alcohol Use Standard Drinks/Week Comments Not Currently 0 (1 standard drink = 0.6 oz pur e alcohol) PHQ-2 Answer Date Recorded Patient Health Questionnaire-2 Score 0 02/24/2023 [place] Safety & Environment Answer Date Rec orded Fear of Current or Ex-Partner Not on file Emotionally Abused Not on file 07/17/2023 Physically Abused Not on file 07/17/2023 Sexually Abused Not on file 07/17/2023 Physically or Sexually Abused Not on file Sex and Gender Information Value Date Recorded Sex Assigned at Not on file Gender Identity Not on file Sexual Orientation Not on file Last Filed Vital Signs Vital Sign Reading Time Taken Comments Blood Pressure - - Pulse - - Temperature - - Respiratory Rate - - Oxygen Saturation - - Inhaled Oxygen Concentration - - Weight 81.6 kg (180 lb) 02/24/2023 12:56 PM EDT Height 157.5 cm (5' 2 ) 02/17/2023 8:06 AM EDT Body Mass Index 32.92 02/17/2023 8:06 AM EDT Plan of Treatment Not on file Care Teams Applied Anthropologist Relationship Specialty Start Date End Date Jeremi Barnett MD [address] [place] [address] PCP - General 02/13/23
--- OUTSIDE RECORDS SUMMARY | 2024-10-13 18:41 | XMS_ITS | Encounter Summary ---
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 Author Reminders Care Plan OB Reminders No Open Scheduling, Background documented as of this encounter Visit Diagnoses Not on filedocumented in this encounter Additional Health Concerns Active Problems Noted Date Diagnosed Date OB Reminders 06/16/2024 documented as of this encounter Care Teams Literacy Coordinator Relationship Specialty Start Date End Date Jeremi Barnett MD [address] [place] [address] PCP - General Internal Medicine 10/17/22 documented as of this encounter
--- OUTSIDE RECORDS SUMMARY | 2024-10-13 18:41 | XMS_ITS | Patient Health Record ---
Author Organization [employer] [facility] Address [address] [place] [address] Care Team Providers Care Plant Propagator Name Role Phone Dr. José Miguel Calderon Primary Care Provider Miguel Tobin [phone] Reason For Referral No Information Medications Medication SIG (Take, Route, Fr equency, Duration) Notes Start Date End Date Status PreviDent 1.1 % as directed Dental 03/11/2023 Active Plan Of Treatment No Information Insurance Providers Payer Name Payer Address Payer Phone Subscriber Number Group Number Insured Name Patient Relationship to Insured Coverage Start Date Coverage End Date [employer] [address] [address] [place] [phone] [id number] MACARENA GAMBLE Self - patient is the insured 3
--- OUTSIDE RECORDS SUMMARY | 2024-10-13 18:41 | XMS_ITS | Encounter Summary ---
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 Author Reminders Care Plan OB Reminders No Open Scheduling, Background documented as of this encounter Visit Diagnoses Not on filedocumented in this encounter Additional Health Concerns Active Problems Noted Date Diagnosed Date OB Reminders 06/16/2024 documented as of this encounter Care Teams Wood Tool Maker Relationship Specialty Start Date End Date Jeremi Barnett MD [address] [place] [address] PCP - General Internal Medicine 10/17/22 documented as of this encounter
--- OUTSIDE RECORDS SUMMARY | 2024-10-13 18:42 | XMS_ITS | Encounter Summary ---
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
--- OUTSIDE RECORDS SUMMARY | 2024-10-13 18:42 | XMS_ITS | Patient Health Record ---
Author Organization [facility] Address [address] [place] [address] [place] [address] Care Team Providers Care Building Coordinator Name Role Phone Emery Yanes Unavailable [phone] Allergies Allergen (clinical drug ingredient) Drug/Non Drug Allergy documented on EMR Reaction Allergy Type Onset Date Status hayfever/seasonal (uncoded) Unknown Allergy Active Reason For Referral No Information Medications Medication SIG (Take, Route, Frequency, Duration) Notes Start Date End Date Status Ventolin HFA prn Active ibuprofen prn Active Social History Tobacco Use: Social History Observation Description Date Details (start date - stop date) Never Smoker NA - NA tobacco use Question Answer Notes Patient is a: non smoker Problems Problem Type SNOMED Code ICD Code Onset Dates Problem Status W/U Status Risk Notes Problem Plantar wart (55537854) Plantar wart (B07.0) Active confirmed Problem Pain in right foot (625899150700 107) Pain in right foot (M79.671) Active confirmed Plan Of Treatment No Information Insurance Providers Payer Name Payer Address Payer Phone Subscriber Number Group Number Insured Name Patient Relationship to Insured Coverage Start Date Coverage End Date [employer] [address] [place] [phone] [id number] Devorah Shelton Self - patient is the insured Medical (General) History Medical History History ICD Code asthma fracture little finger L hand Surgical History Surgery Date(Month/Year) tubes in ears 2000
--- OUTSIDE RECORDS SUMMARY | 2024-10-13 18:42 | XMS_ITS | Encounter Summary ---
Author Organization [facility] Address [address] [place] [address] Care Team Providers Care Printing Roller Handler Name Role Phone Jeremi Barnett MD Primary Care Provider [phone] Encounter Details Date Type Department Care Team ([facility] Contact Info) Description 01/18/2024 Orders Only [facility] [address] [facility] [address] [place] [phone] A, Unknown Practice [address] [place], [place] [phone] Social History Tobacco Use Types Packs/Day Years [...] Recorded Patient Health Questionnaire-2 Score 0 01/11/2024 Comments No Sex and Gender Information Value Date Recorded Sex Assigned at Not on file Legal Sex Female 6:48 PM EDT Gender Identity Not on file Sexual Orientation Not on file 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 Not on file Not on file documented as of this encounter Plan of Treatment Upcoming Encounters Date Type Department Care Team ([facility] Contact Info) Description 11/15/2024 1:30 PM EDT Office Visit [facility] [address] [place] [address] documented as of this encounter Procedures Procedure Name Priority Date/Time Associated Diagnosis Comments XR HAND 3+ VIEWS BILATERAL Routine 01/15/2024 11:36 AM EDT documented in this encounter Results * XR hand 3+ views bilateral (01/15/2024 11:36 AM EDT) Anatomical Region Laterality Modality Upper Extremities, Hand Bilateral Radiogra phic Imaging us Unknown Practice A IMG XR PROCEDURES Final Resul t documented in this encounter Visit Diagnoses Not on filedocumented in this encounter Care Teams Printing Roller Handler Relationship Specialty Start Date End Date Jeremi Barnett MD [address] [place] [address] PCP - General Internal Medicine 10/17/22 documented as of this encounter
--- OUTSIDE RECORDS SUMMARY | 2024-10-13 18:42 | XMS_ITS | Clinical Summary ---
Author Organization [facility] Address [address] [place] [address] Care Team Providers Care Machinery Mover Name Role Phone Unavailable Primary Care Provider Unavailabl e Allergies Active Allergy Reactions Criticality Noted Date Comments Amoxicillin-Pot Clavulanate 12/08/19 21 Penicillins 12/07/2020 Medications DULoxetine (CYMBALTA) 60 MG extended release capsule Take 1 capsule by mouth daily Active Social History Tobacco Use Types Packs/Day Years Used Date Smoking Tobacco: Never Alcohol Use Standard Drinks/Week Comments Not Currently 0 (1 standard drink = 0.6 oz pur e alcohol) Interpersonal Safety Domain Source: IP Abuse Scr eening Answer Date Recorded Physical abuse Denies 01/03/2024 Verbal abuse Not on file 01/03/2024 Emotional abuse Not on file 01/03/2024 Financial abuse Not on file 01/03/2024 Sexual abuse Not on file 01/03/2024 Comments No Sex and Gender Information Value Date Recorded Sex Assigned at Not on file Legal Sex Female 6:46 PM EDT Gender Identity Not on file Sexual Orientation Not on file Last Filed Vital Signs Vital Sign Reading Time Taken Comments Blood Pressure 114/77 01/03/2024 3:58 PM EDT Pulse 71 01/03/2024 3:58 PM EDT Temperature 37 C (98.6 F) 01/03/2024 3:58 PM EDT Respiratory Rate 16 01/03/2024 3:58 PM EDT Oxygen Saturation 99% 01/03/2024 3:58 PM EDT Inhaled Oxygen Concentration - - Weight 98 kg (216 lb) 12/07/2020 7:25 PM EDT Height 157.5 cm (5' 2 ) 12/07/2020 7:25 PM EDT Body Mass Index 39.51 12/07/2020 7:25 PM EDT Plan of Treatment Health Maintenance Due Date Last Done Comments Depression Screen 2009 Varicella vaccine (1 of 2 - 13+ 2-dose series) 2010 HIV screen 02/19/2012 Hepatitis C screen 2015 Pap smear 2018 COVID-19 Vaccine ( season) 2024 09/04/2020, 08/13/2020 Flu vaccine (Season Ended) 12/23/202402/24, 02/22/2021, 04/11/2009 DTaP/Tdap/Td vaccine (9 - Td or Tdap) 11/10/2029 11/11/2019, 05/12/2017, 12/13/2012, Additional history exists Hepatitis B vaccine Completed 1995, 1995, 1997 Hib vaccine Completed 05/22/1998, 08/23, 1997, Additional history exists Polio vaccine Completed 02/15/2002, 04/25, 1997, Additional history exists Meningococcal (ACWY) vaccine Aged Out 08/22/2016, 12/13/2012 No longer eligible based on patient's age to complete this topic HPV vaccine Completed 12/19/2016, 07/25, 06/19/2016 Hepatitis A vaccine Aged Out 12/19/2016, 7 No longer eligible based on patient's age to complete this topic Meningococcal B vaccine Completed 12/19/2016, 08/22 Pneumococcal 0-49 years Vaccine Aged Out No longer eligible based on patient's age to complete this topic Insurance BCBS
--- OUTSIDE RECORDS SUMMARY | 2024-10-13 18:42 | XMS_ITS | Encounter Summary ---
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 Author Reminders Care Plan OB Reminders No Open Scheduling, Background documented as of this encounter Procedures Procedure Name Priority Date/Time Associated Diagnosis Comments US OB GROWTH 10/03/2024 9:41 AM EDT documented in this encounter Results * US OB GROWTH (10/03/2024 9:41 AM EDT) Anatomical Region Laterality Modality Other 10/03/2024 9:41 AM EDT Narrative 10/03/2024 9:43 [place] [address] Ultrasound Report Signed Patient: DEVORAH SHELTON MR#: [id number] : 1995 Acct:[id number] Age/Sex: 29 / F ADM Date: 09/30/24 Loc: US Attending Dr: Donovan Vora D.O. Ordering Physician: Donovan Vora D.O. Date of Service: 09/30/24 Procedure(s): US OB growth Accession Number(s): [id number] cc: Donovan Vora D.O.; JELLY CHERY [address] [address] Patient Name: DEVORAH SHELTON MRN: [facility]:[id number] date: 1995 Sex: F Assigned Patient Location: [facility] Current Patient Location: [facility] Accession/Order Number: [id number] Exam Date: 10/03/2024 09:34 Report Date: 10/03/2024 [...] Goyal M.D. 10/03/2024 9:41 AM Dictation Location: [place] [address] Electronically authenticated by: [id number] Y Date: 10/03/2024 09:41 Dictated By: Liliana Goyal M.D. Signed By: 10/03/24 0943 DD/ TD/TT: Craft Coordinator: Procedure Note Radiology, Radiologist, MD - 10/03/2024 [place] [address] Ultrasound Report Signed Patient: DEVORAH SHELTON MMR#: [id number] : 1995Acct:[id number] Age/Sex: Date: 09/30/24 Loc: US Attending Dr: Donovan Vora D.O. Ordering Physician: Donovan Vora D.O. Date of Service: 09/30/24 Procedure(s): US OB growth Accession Number(s): [id number] cc: Donovan Vora D.O.; JELLY CHERY [place] [id number] Patient Name: DEVORAH SHELTON MRN: [id number] date: 1995 Sex: F Assigned Patient Location: [facility] Current Patient Location: [facility] Accession/Order Number: [id number] Exam Date: 10/03/2024 09:34 Report Date: 10/03/2024 [...] Goyal M.D. 10/03/2024 9:41 AM Dictation Location: [place] [address] Electronically authenticated by: [id number] Y Date: 9:41 Dictated By: Liliana Goyal M.D. Signed By:10/03/2443 DD/ TD/TT: Craft Coordinator: us Generic External Data Provider [facility] Final Result documented in this encounter Visit Diagnoses Not on filedocumented in this encounter Additional Health Concerns Active Problems Noted Date Diagnosed Date OB Reminders 06/16/2024 documented as of this encounter Care Teams Quality Assurance Monitor Body Relationship Specialty Start Date End Date Jelly Chery MD [address] [place] [address] PCP - General Internal Medicine 10/17/22 documented as of this encounter
--- OUTSIDE RECORDS SUMMARY | 2024-10-13 18:42 | XMS_ITS | Encounter Summary ---
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 Author Reminders Care Plan OB Reminders No Open Scheduling, Background documented as of this encounter Visit Diagnoses Not on filedocumented in this encounter Additional Health Concerns Active Problems Noted Date Diagnosed Date OB Reminders 06/16/2024 documented as of this encounter Care Teams Employment Training Specialist Relationship Specialty Start Date End Date Jeremi Barnett MD [address] [place] [address] PCP - General Internal Medicine 10/17/22 documented as of this encounter
--- OUTSIDE RECORDS SUMMARY | 2024-10-13 18:42 | XMS_ITS | Encounter Summary ---
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
--- OUTSIDE RECORDS SUMMARY | 2024-10-13 18:42 | XMS_ITS | Encounter Summary ---
Author Organization [facility] Address [address] [place] [address] Care Team Providers Care Supervisory Air Intercept Controller Name Role Phone Jeremi Barnett MD Primary Care Provider [phone] Encounter Details Date Type Department Care Team (Late Contact Info) Description 10/07/2022 Abstract [facility] [address] [facility] [address] [place] [address] Lena Rosado MA Social History Tobacco Use Types Packs/Day Years Used Date Smoking Tobacco: Never Assessed Comments Unknown Sex and Gender Information Value Date Recorded Sex Assigned at Not on file Legal Sex Female 6:48 PM EDT Gender Identity Not on file Sexual Orientation Not on file documented as of this encounter Plan of Treatment Upcoming Encounters Date Type Department Care Team (Late Contact Info) Description 11/15/2024 1:30 PM EDT Office Visit [facility] [address] [facility] [address] [place] [address] documented as of this encounter Visit Diagnoses Not on filedocumented in this encounter Care Teams Supervisory Air Intercept Controller Relationship Specialty Start Date End Date Jeremi Barnett MD [address] [place] [address] PCP - General Internal Medicine 10/17/22 documented as of this encounter
--- OUTSIDE RECORDS SUMMARY | 2024-10-13 18:42 | XMS_ITS | Clinical Summary ---
Author Organization [facility] Address [address] [place], [place] [id number] Care Team Providers Care Repairer Evaporator Name Role Phone Jeremi Barnett MD Unavailable Allergies Active Allergy Reactions Criticality Noted Date Comments Penicillins GI Upset,Rash 04/09/2021 Medications DULoxetine (CYMBALTA) 30 mg capsule Take 30 mg by mouth. 10/21/2022 Active Social History Tobacco Use Types Packs/Day Years Used Date Smoking Tobacco: Some Days Smokeless Tobacco: Never Comments:Vapes occasionally Comments Unknown Sex and Gender Information Value Date Recorded Sex Assigned at Not on file Legal Sex Female 1:59 PM EST Gender Identity Not on file Sexual Orientation Not on file Last Filed Vital Signs Vital Sign Reading Time Taken Comments Blood Pressure 121/67 06/29/2023 4:07 PM EST Pulse 68 06/29/2023 4:07 PM EST Temperature 36.3 C (97.3 F) 06/29/2023 4:07 PM EST Respiratory Rate - - Oxygen Saturation - - Inhaled Oxygen Concentration - - Weight - - Height - - Body Mass Index - - Plan of Treatment Health Maintenance Due Date Last Done Comments Anxiety Screening 2015 Depression Screening 2015 HIV Screening 2015 Hepatitis C Screening 2015 Pneumococcal Vaccine (1 of 2 - PCV) 02/19/2016 Cervical Cancer Screening 2018 Covid-19 Vaccine (2023-2 5 season) 2024 03/29/2021, 09/04/2020, 08/13/2020 Influenza Vaccine (Season Ended) 2025 02/24/2022, 02/22/2021, 04/11/2009 DTaP,Tdap,Td Vaccine (9 - Td or Tdap) 11/10/2029 11/11/2019, 05/12/2017, 12/13/2012, Additional history exists Hepatitis B Vaccine Completed 1995, 1997, 1997 Insurance [employer] PPO Care Teams Repairer Evaporator Relationship Specialty Start Date End Date Jeremi Barnett MD [address] [facility] [address] [place] [address] Referring Internal Medicine 06/26/23
--- OUTSIDE RECORDS SUMMARY | 2024-10-13 18:42 | XMS_ITS | Encounter Summary ---
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 Not on file Not on file documented as of this encounter Plan of Treatment Upcoming Encounters Date Type Department Care Team (Late Contact Info) Description 11/15/2024 1:30 PM EDT Office Visit [facility] [address] [place] [address] documented as of this encounter Procedures Procedure Name Priority Date/Time Associated Diagnosis Comments US OB TRANSVAGINAL 03/10/2024 1: 52 PM EDT documented in this encounter Results * US OB TRANSVAGINAL (03/10/2024 1:52 PM EDT) Anatomical Region Laterality Modality Other 03/10/2024 1:52 PM EDT Narrative 03/10/2024 1:55 [place] [address] Ultrasound Report Signed Patient: DEVORAH SHELTON MR#: [id number] : 1995 Acct:[id number] Age/Sex: 29 / F ADM Date: 03/10/24 Loc: [facility] Attending Dr: Donovan Vora D.O. Ordering Physician: Donovan Vora D.O. Date of Service: 03/10/24 Procedure(s): US OB transvaginal Accession Number(s): [id number] cc: Donovan Vora D.O.; JELLY CHERY [address] [address] Patient Name: DEVORAH SHELTON MRN: [id number] date: 1995 Sex: F Assigned Patient Location: [facility] Current Patient Location: [facility] Accession/Order Number: [id number] Exam Date: 03/10/2024 12:33 Report Date: 03/10/2024 13:52 At the request of: DONOVAN VORA Procedure: US OB transvaginal EXAMINATION: US OB transvaginal HISTORY: MISSED MENSES COMPARISON: No relevant comparison available. FINDINGS: Mack intrauterine gestation Gestational sac: 2.71 cm, 7 weeks 4 days CRL: 1.71 cm, 8 weeks 1 day Yolk sac: 3.1 cm Heart rate: 160 bpm The uterus is normal, anteverted, anteflexed. Adjacent to the gestational sac is a 1.1 x 1.0 x 1.3 cm area of hypoechogenicity possibly representing a small subchorionic hematoma The ovaries are normal Cervix: Closed, 3.5 cm Clinical age: 8w5d Clinical greta: 10/15/24 Ultrasound age: 8w1d Ultrasound greta: 10/19/24 US/US OB transvaginal IMPRESSION: Viable mack intrauterine gestation measuring 8 weeks 1 day Electronically authenticated by: JIE TORRES Date: 03/10/2024 13:52 Dictated By: Jie Torres M.D. Signed By: 03/10/24 1355 DD/ 1352 TD/TT: Psychological Stress Evaluator: Procedure Note Radiology, Radiologist, - 03/10/2024 [place] [address] Ultrasound Report Signed Patient: DEVORAH SHELTON MMR#: [id number] : 1995Acct:[id number] Age/Sex: Date: 03/10/24 Loc: [facility] Attending Dr: Donovan Vora D.O. Ordering Physician: Donovan Vora D.O. Date of Service: 03/10/24 Procedure(s): US OB transvaginal Accession Number(s): [id number] cc: Donovan Vora D.O.; JELLY CHERY [place] [address] Patient Name: DEVORAH SHELTON MRN: [id number] date: 1995 Sex: F Assigned Patient Location: [facility] Current Patient Location: [facility] Accession/Order Number: [id number] Exam Date: 03/10/2024 12:33 Report Date: 03/10/2024 13:52 At the request of: DONOVAN VORA Procedure: US OB transvaginal EXAMINATION: US OB transvaginal HISTORY: MISSED MENSES COMPARISON: No relevant comparison available. FINDINGS: Mack intrauterine gestation Gestational sac: 2.71 cm, 7 weeks 4 days CRL: 1.71 cm, 8 weeks 1 day Yolk sac: 3.1 cm Heart rate: 160 bpm The uterus is normal, anteverted, anteflexed. Adjacent to the gestationalsac is a 1.1 x 1.0 x 1.3 cm area of hypoechogenicity possibly representing asmall subchorionic hematoma The ovaries are normal Cervix: Closed, 3.5 cm Clinical age: 8w5d Clinical greta: 10/15/24 Ultrasound age: 8w1d Ultrasound greta: 10/19/24 US/US OB transvaginal IMPRESSION: Viable mack intrauterine gestation measuring 8 weeks 1 day Electronically authenticated by: JIE TORRES Date: 03/10/2024 13:52 Dictated By: Jie Torres M.D. Signed By:03/10/24 1355 DD/ 1352 TD/TT: Psychological Stress Evaluator: us Generic External Data Provider [facility] Final Result documented in this encounter Visit Diagnoses Not on filedocumented in this encounter Care Teams Business Excellence Leader Relationship Specialty Start Date End Date Jelly Chery MD [address] [address] PCP - General Internal Medicine 10/17/22 documented as of this encounter
--- OUTSIDE RECORDS SUMMARY | 2024-10-13 18:42 | XMS_ITS | Encounter Summary ---
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 Author Reminders Care Plan OB Reminders No Open Scheduling, Background documented as of this encounter Procedures Procedure Name Priority Date/Time Associated Diagnosis Comments US OB BPP W NON-STRESS 10/03/2024 9:41 AM EDT documented in this encounter Results * US OB BPP W NON-STRESS (10/03/2024 9:41 AM EDT) Anatomical Region Laterality Modality Other 10/03/2024 9:41 AM EDT Narrative 10/03/2024 9:43 [place] [address] Ultrasound Report Signed Patient: DEVORAH SHELTON MR#: [id number] : 1995 Acct:[id number] Age/Sex: 29 / F ADM Date: 09/30/24 Loc: US Attending Dr: Donovan Vora D.O. Ordering Physician: Donovan Vora D.O. Date of Service: 09/30/24 Procedure(s): US OB BPP w non-stress Accession Number(s): [id number] cc: Donovan Vora D.O.; JELLY CHERY [address] [address] Patient Name: DEVORAH SHELTON MRN: [id number] date: 1995 Sex: F Assigned Patient Location: Current Patient Location: [facility] Accession/Order Number: [id number] Exam Date: 10/03/2024 09:34 Report Date: 10/03/2024 [...] IMPRESSION: NORMAL BIOPHYSICAL PROFILE Impression dictated by: Lliiana Goyal M.D. 10/03/2024 9:41 AM Dictation Location: [place] [address] Electronically authenticated by: [id number] Y Date: 10/03/2024 09:41 Dictated By: Liliana Goyal M.D. Signed By: 10/03/24 0943 DD/ 0941 TD/TT: Pulp Drier Firer: Procedure Note Radiology, Radiologist, MD - 10/03/2024 [place] [address] Ultrasound Report Signed Patient: DEVORAH SHELTON MMR#: [id number] : 1995Acct:[id number] Age/Sex: Date: 09/30/24 Loc: US Attending Dr: Donovan Vora D.O. Ordering Physician: Vielka,Donovan D.O. Date of Service: 09/30/24 Procedure(s): US OB BPP w non-stress Accession Number(s): [id number] cc: Donovan Vora D.O.; JELLY CHERY [address] [address] Patient Name: DEVORAH SHELTON MRN: [id number] date: 1995 Sex: F Assigned Patient Location: Current Patient Location: [facility] Accession/Order Number: [id number] Exam Date: 10/03/2024 09:34 Report Date: 10/03/2024 [...] +/- 1 lb.2 oz. (64%). US/US OB BPP w non-stress [...] Goyal M.D. 10/03/2024 9:41 AM Dictation Location: [place] [address] Electronically authenticated by: [id number] Y Date: 9:41 Dictated By: Liliana Goyal M.D. Signed By:10/03/2443 DD/ 0 TD/TT: Pulp Drier Firer: us Generic External Data Provider [facility] Final Result documented in this encounter Visit Diagnoses Not on filedocumented in this encounter Additional Health Concerns Active Problems Noted Date Diagnosed Date OB Reminders 06/16/2024 documented as of this encounter Care Teams Security Installation Technician Relationship Specialty Start Date End Date Jelly Chery MD [address] [place] [address] PCP - General Internal Medicine 10/17/22 documented as of this encounter
[2024-10-13 19:59] LABS: Hematocrit 34.1 % (36.0-48.0); Hemoglobin 11.2 g/dL (12.0-16.0); Mean Corpuscular HGB Conc 32.8 g/dL (29.9-35.2); Mean Corpuscular Volume 88.3 fL (81.0-99.0); Mean Platelet Volume 10.4 fL (9.5-13.5); Platelet Count 238 10^3/uL (150-450); Red Blood Count 3.86 10^6/uL (4.20-5.40); Red Cell Distribution Width 13.8 % (11.0-15.0); White Blood Count 12.8 10^3/uL (4.0-11.0)
[2024-10-13] MEDS: MISOPROSTOL 100 MCG TABLET 25 MCG VAGINAL ×2 (20:06→23:07)
[2024-10-13 20:12] LABS: Amphetamine Screen Urine NEGATIVE (NEGATIVE); Barbiturates Screen Urine NEGATIVE (NEGATIVE); Benzodiazepines Screen Urine NEGATIVE (NEGATIVE); Buprenorphine Screen Urine NEGATIVE (NEGATIVE); Cannabinoid Screen Urine NEGATIVE (NEGATIVE); Cocaine Screen Urine NEGATIVE (NEGATIVE); Methadone Screen Urine NEGATIVE (NEGATIVE); Methamphetamines Screen Urine NEGATIVE (NEGATIVE); Opiate Screen Urine NEGATIVE (NEGATIVE); Oxycodone Screen Urine NEGATIVE (NEGATIVE); Phencyclidine Screen Urine NEGATIVE (NEGATIVE); Tricyclic Antidepressant Urine NEGATIVE (NEGATIVE)
[2024-10-14] VITALS (65 sets, daily range): BP systolic 95–143; BP diastolic 55–95; PULSE 57–113; TEMP 36.3–36.7; O2SAT 99
[2024-10-14] MEDS: MISOPROSTOL 100 MCG TABLET 25 MCG VAGINAL (02:08)
[2024-10-14] MEDS: 0.9 % SODIUM CHLORIDE 1,000 ML 125 ML IV ×4 (02:51→17:54)
[2024-10-14] MEDS: ONDANSETRON PF 4 MG/2 ML VIAL IV ×3 (06:18→14:23)
[2024-10-14] MEDS: OXYTOCIN/0.9 % SODIUM CHLORIDE 10 UNITS/500 ML PLAST..BAG 6 UNIT IV (07:01)
[2024-10-14] MEDS: CEFAZOLIN SODIUM/DEXTROSE,ISO 1 GM/50 ML PREMIX IV ×3 (07:05→18:05)
[2024-10-14] MEDS: NALBUPHINE HCL 10 MG/ML AMPULE IV ×2 (08:19→11:08)
[2024-10-14] MEDS: ROPIVACAINE HCL/PF 400 MG/200 ML PREMIX 8 MG EPIDURAL (13:23)
[2024-10-14] MEDS: OXYTOCIN/0.9 % SODIUM CHLORIDE 20 UNITS/1,000 ML PLAST..BAG 125 UNIT IV (18:50)
[2024-10-14] MEDS: KETOROLAC TROMETHAMINE 30 MG/ML VIAL IVP (18:59)
[2024-10-14] MEDS: LIDOCAINE HCL 1% 200 MG/20 ML MDV INJ (19:00)
[2024-10-14] MEDS: METHYLERGONOVINE MALEATE 0.2 MG/ML AMPULE IM (19:04)
--- NOTE | 2024-10-14 19:11 | PM.OBPRCVD ---
Procedure Intrapartal events: None Induction method: per misoprostol protocol Delivery augmentation: rupture of membranes and pitocin Delivery monitor: external FHT and external uterine Route of delivery: Episiotomy Description: none L&D Laceration Description: periurethral - 2nd degree Delivery repair: Vicryl Estimated blood loss (mL): 450 Anesthesia type: Epidural Disposition: floor Infant Delivery date: 10/14/24 Gender: male presentation: vertex Placental delivery description: Spontaneous cord description: 3 Vessels
[2024-10-14] MEDS: ALBUTEROL SULFATE 2.5 MG/3 ML VIAL NEB IH (19:16)
--- NOTE | 2024-10-14 19:38 | PC.NURSE ---
190-Patient complaining of shortness of breath. Respiratory therapy called to assess and administer breathing treatment if needed. 1914-Breathing treatment administered.
[2024-10-14] MEDS: ACETAMINOPHEN 325 MG TABLET 650 MG PO (22:30)
--- NOTE | 2024-10-15 00:32 | PC.NURSE ---
0015- Patient complaining of left lower abdominal pain and states she is having difficulty urinating. Patient bladder scanned and only 165ml in bladder at this time.
[2024-10-15] MEDS: OXYCODONE HCL/ACETAMINOPHEN 5MG/325MG 2 TAB PO (00:51)
[2024-10-15] MEDS: IBUPROFEN 600 MG TABLET PO ×2 (05:48→13:25)
[2024-10-15 06:49] LABS: Basophils Percent Auto 0.2 % (0.2-2.0); Eosinophils Absolute Auto 0.1 10^3/uL (0.0-0.7); Eosinophils Percent Auto 0.3 % (0.9-7.0); Hematocrit 26.9 % (36.0-48.0); Hemoglobin 8.8 g/dL (12.0-16.0); Immature Granulocytes Abs Auto 0.12 10^3/uL (0.00-0.03); Immature Granulocytes Pct Auto 0.6 % (0.0-0.5); Lymphocytes Absolute Auto 2.6 10^3/uL (1.2-3.8); Lymphocytes Percent Auto 13.3 % (20.5-60.0); Mean Corpuscular HGB Conc 32.7 g/dL (29.9-35.2); Mean Corpuscular Hemoglobin 29.8 pg (26.7-34.0); Mean Corpuscular Volume 91.2 fL (81.0-99.0); Mean Platelet Volume 10.5 fL (9.5-13.5); Monocytes Absolute Auto 1.4 10^3/uL (0.3-0.8); Neutrophils Absolute Auto 15.3 10^3/uL (1.4-6.5); Neutrophils Percent Auto 78.6 % (43.0-75.0); Platelet Count 177 10^3/uL (150-450); Red Blood Count 2.95 10^6/uL (4.20-5.40); White Blood Count 19.4 10^3/uL (4.0-11.0)
[2024-10-15 08:05] VITALS: TEMP 36.7
[2024-10-15 08:13] VITALS: BP 136/85; PULSE 80
--- NOTE | 2024-10-15 09:20 | PM.OBPN ---
OB - PN: Subj Subjective Patient comments: no complaints [place] status: doing well [place] feeding status: exclusively bottle feeding Exam Constitutional Vital Signs, click to edit/add: Last Vital Signs Temp 98.1 F 10/15/24 08:05 Pulse 80 10/15/24 08:13 Resp 16 10/15/24 08:05 BP 136/85 10/15/24 08:13 Pulse Ox 99 10/14/24 19:17 O2 Del Method Room Air 10/15/24 08:05 Documenting provider has reviewed patient's vital signs: yes Common normals: no apparent distress, average body habitus, oriented x3, no limitations, healthy appearing and alert General appearance: cooperative, comfortable, well kempt and well developed Orientation/consciousness: Yes awake, Yes oriented to person, Yes oriented to place and Yes oriented to time HENMT Common normals: normocephalic Eye Common normals: EOMs intact bilaterally General eye: normal appearance of both eyes Neck & C-Spine Common normals: full ROM and no lymphadenopathy General: normal visual inspection Lymph Lymphatic: no lymphadenopathy noted Chest Common normals: inspection of chest normal Respiratory Common normals: normal respiratory effort Effort & inspection: able to speak in complete sentences Auscultation: clear to auscultation bilaterally Cardio Common normals: regular rate and regular rhythm Rate: regular rate Rhythm: regular rhythm GI Common normals: Normal to inspection, nondistended, normoactive bowel sounds present Inspection: normal to inspection Auscultation: normoactive bowel sounds Palpation: soft Common normals: no CVA tenderness Back & Pelvis Common normals: no CVA tenderness Thoracic spine/upper back: normal to inspection Lumbar spine/lower back: normal to inspection Extremity Common normals: normal to inspection Neuro Common normals: oriented x3 Sensorium/orientation: awake, alert, oriented to person, oriented to place and oriented to time Psych Common normals: mental status grossly normal, thought process normal, cooperative, affect normal, speech normal, activity/motor behavior normal, denies hallucinations, denies homicidal ideation and denies suicidal ideation Attitude: calm Activity/motor behavior: appropriate eye contact Speech: normal speech Results Labs Labs: Short CBC 10/15/24 Range/Units 06:29 WBC 19.4 H (4.0-11.0) 10^3/uL Hgb 8.8 L (12.0-16.0) g/dL Hct 26.9 L (36.0-48.0) % Plt Count 177 (150-450) 10^3/uL Urinary Catheter Management Urinary Catheter Management Urethral: Cath placed during this visit: yes, but has since been removed by the nurse Insertion date: 10/14/24 Insertion time: 13:40 Removal date: 10/14/24 Removal time: 17:13 Straight: Cath placed during this visit: yes Urethral indwelling: No Insertion date: 10/15/24 Insertion time: 06:08 OB - PN: A/P Plan - Vaginal Delivery day: 1 Plan: routine care Time Spent with Patient Time: Total time spent is greater than 50% in coordination of care (as documented) at patient's floor/unit and/or counseling patient: Total time spent with greater than 50% in coordination of care (as documented) at patient's floor/unit and/or counseling patient: less than 15 minutes
--- NOTE | 2024-10-15 09:25 | W.PC.ACHO ---
Registration Status: ADM IN Primary Language: Preferred Language: Amharic Report received from Mariana Jensen RN at 0700. Care assumed. Active Medications Generic Name Dose Route Start Last Admin Trade Name Mile PRN Reason Stop Dose Admin Acetaminophen 650 mg 10/14/24 19:12 10/14/24 22:30 Acetaminophen 325 Mg Tablet PO 650 mg Q6H PRN Administration Mild Pain Acetaminophen/Codeine Phosphate 2 tab 10/14/24 19:12 Acetaminophen 300 Mg/ 30 Mg Codeine Tablet PO Q4H PRN Pain Scale 7-10 Al Hydroxide/Mg Hydroxide 2,400 mg 10/14/24 19:12 Magnesium Hydroxide 2,400 Mg/10 Ml Oral.Susp PO Q6H PRN Dyspepsia Benzocaine/Menthol 1 applic 10/14/24 19:12 Benzocaine/Menthol 85 Gram [place] Bottle TOPICAL Q2H PRN Pain Diphtheria/Pertussis/Tetanus Vacc 0.5 ml 10/16/24 09:00 Adacel Diph,Pertuss(Acell),Tet Vac/Pf 0.5 Ml Adult Syringe IM 10/16/24 09:01 .ONCE ONE Docusate Sodium 100 mg 10/15/24 09:00 Docusate Sodium 100 Mg Capsule PO BID JUAN ALBERTO Tranexamic Acid 1,000 mg/ 110 mls @ 440 mls/hr 10/13/24 18:47 Sodium Chloride IV 10/15/24 18:47 ONCE PRN Uterine Bleeding Sodium Chloride 1,000 mls @ 125 mls/hr 10/13/24 19:00 10/14/24 18:50 Sodium Chloride 0.9% 1,000 Ml IV Infused .Q8H PRN Infusion Labor Induction Cefazolin Sodium/Dextrose 1 gm in 50 mls @ 100 mls/hr 10/13/24 19:00 10/14/24 18:35 Ancef 1 Gm Premix IV Infused Q6H JUAN ALBERTO Infusion Ropivacaine/Sodium Chloride 400 mg in 200 mls @ 6 mls/hr 10/13/24 19:00 10/14/24 19:15 Naropin 0.2% 400 Mg/200 Ml Bag EPIDURAL Infused Q24H JUAN ALBERTO Infusion Oxytocin/Sodium Chloride 10 units in 500 mls @ 6 mls/hr 10/13/24 19:00 10/14/24 19:15 Pitocin 10 Unit/500 Ml-Ns IV Infused TITR JUAN ALBERTO Infusion Protocol 2 MILLIUNIT/MIN Ibuprofen 600 mg 10/14/24 19:12 10/15/24 05:48 Ibuprofen 600 Mg Tablet PO 600 mg Q6H PRN Administration Moderate Pain Lidocaine 5 ml 10/13/24 18:47 Lidocaine Viscous 2% 15 Ml Solution TOPICAL 10/15/24 18:49 ONCE PRN Pain Measles/Mumps/Rubella Vaccine Live 0.5 ml 10/16/24 09:00 Measles,Mumps,Rubella Vacc/Pf 0.5 Ml Vial SQ 10/16/24 09:01 .ONCE ONE Methylergonovine Maleate 0.2 mg 10/13/24 18:47 Methylergonovine Maleate 0.2 Mg Tablet PO 10/15/24 18:47 Q4H PRN Uterine Contractility/Contract Misoprostol 600 mcg 10/13/24 18:47 Misoprostol 100 Mcg Tablet PO 10/15/24 18:47 ONCE PRN Uterine Bleeding Misoprostol 800 mcg 10/13/24 18:47 Misoprostol 100 Mcg Tablet SL 10/15/24 18:47 ONCE PRN Uterine Bleeding Misoprostol 1,000 mcg 10/13/24 18:47 Misoprostol 100 Mcg Tablet TX 10/15/24 18:47 ONCE PRN Uterine Bleeding Nalbuphine HCl 10 mg 10/13/24 18:47 10/14/24 11:08 Nalbuphine Hcl 10 Mg/Ml Ampule IV 10 mg Q3H PRN Administration Pain Scale 4-6 Ondansetron HCl 4 mg 10/13/24 18:47 10/14/24 14:23 Ondansetron Pf 4 Mg/2 Ml Vial IV 4 mg Q6H PRN Administration Nausea And Vomiting Ondansetron HCl 4 mg 10/13/24 18:47 Ondansetron 4 Mg Rapdis Tablet SL Q6H PRN Nausea And Vomiting Oxytocin 10 unit 10/13/24 18:47 Oxytocin 10 Unit/Ml Vial IM 10/15/24 18:47 ONCE PRN Bleeding Senna 17.2 mg 10/14/24 20:00 Sennosides 8.6 Mg Tablet PO QHS PRN Constipation Simethicone 80 mg 10/14/24 19:12 Simethicone 80 Mg Tab.Chew PO QID PRN Abdominal Distention Temazepam 15 mg 10/14/24 19:12 Temazepam 15 Mg Capsule PO QHS PRN Sleep Witch Kellen/Glycerin 1 pad 10/14/24 19:12 Glycerin/Witch Kellen Pads TOPICAL Q2H PRN Pain Diet Category Date Time Status Regular Consistency Diet Diet 10/14/24 19:12 Active Respiratory Pulse Oximetry 99 Oxygen Delivery Method Room Air Oxygen Delivery Method Room Air Oxygen Delivery Method Room Air Bowels Bowel Pattern No Bowel Movement Renal Bladder Pattern Continent Bladder Pattern Continent,Hesitancy Catheter Urinary Catheter Date of 10/15/24 Insertion [Straight] Urinary Catheter Date of 10/15/24 Insertion [Straight] Urinary Catheter Date of 10/14/24 Insertion [Urethral] Urinary Catheter Date of 10/14/24 Insertion [Urethral] Urinary Catheter Time of 06:08 Insertion [Straight] Urinary Catheter Time of 06:08 Insertion [Straight] Urinary Catheter Time of 13:40 Insertion [Urethral] Urinary Catheter Time of 13:40 Insertion [Urethral] Date Urinary Catheter Removed 10/14/24 [Urethral] Date Urinary Catheter Removed 10/14/24 [Urethral] Time Urinary Catheter 17:13 Discontinued [Urethral] Time Urinary Catheter 17:13 Discontinued [Urethral]
[2024-10-15] MEDS: ACETAMINOPHEN 325 MG TABLET 650 MG PO (09:47)
[2024-10-15] MEDS: DOCUSATE SODIUM 100 MG CAPSULE PO (09:48)
[2024-10-15 16:38] VITALS: BP 137/89; PULSE 92
[2024-10-15 16:45] VITALS: TEMP 36.2
--- NOTE | 2024-10-15 19:19 | W.PC.ACHO ---
Registration Status: ADM IN Primary Language: Preferred Language: Japanese Report given to Shae CLARKE at 1905. Care relinquished. Active Medications Generic Name Dose Route Start Last Admin Trade Name Mile PRN Reason Stop Dose Admin Acetaminophen 650 mg 10/14/24 19:12 10/15/24 09:47 Acetaminophen 325 Mg Tablet PO 650 mg Q6H PRN Administration Mild Pain Acetaminophen/Codeine Phosphate 2 tab 10/14/24 19:12 Acetaminophen 300 Mg/ 30 Mg Codeine Tablet PO Q4H PRN Pain Scale 7-10 Al Hydroxide/Mg Hydroxide 2,400 mg 10/14/24 19:12 Magnesium Hydroxide 2,400 Mg/10 Ml Oral.Susp PO Q6H PRN Dyspepsia Benzocaine/Menthol 1 applic 10/14/24 19:12 Benzocaine/Menthol 85 Gram [place] Bottle TOPICAL Q2H PRN Pain Diphtheria/Pertussis/Tetanus Vacc 0.5 ml 10/16/24 09:00 Adacel Diph,Pertuss(Acell),Tet Vac/Pf 0.5 Ml Adult Syringe IM 10/16/24 09:01 .ONCE ONE Docusate Sodium 100 mg 10/15/24 09:00 10/15/24 09:48 Docusate Sodium 100 Mg Capsule PO 100 mg BID JUAN ALBERTO Administration Sodium Chloride 1,000 mls @ 125 mls/hr 10/13/24 19:00 10/14/24 18:50 Sodium Chloride 0.9% 1,000 Ml IV Infused .Q8H PRN Infusion Labor Induction Cefazolin Sodium/Dextrose 1 gm in 50 mls @ 100 mls/hr 10/13/24 19:00 10/14/24 18:35 Ancef 1 Gm Premix IV Infused Q6H JUAN ALBERTO Infusion Ropivacaine/Sodium Chloride 400 mg in 200 mls @ 6 mls/hr 10/13/24 19:00 10/14/24 19:15 Naropin 0.2% 400 Mg/200 Ml Bag EPIDURAL Infused Q24H JUAN ALBERTO Infusion Oxytocin/Sodium Chloride 10 units in 500 mls @ 6 mls/hr 10/13/24 19:00 10/14/24 19:15 Pitocin 10 Unit/500 Ml-Ns IV Infused TITR JUAN ALBERTO Infusion Protocol 2 MILLIUNIT/MIN Ibuprofen 600 mg 10/14/24 19:12 10/15/24 13:25 Ibuprofen 600 Mg Tablet PO 600 mg Q6H PRN Administration Moderate Pain Measles/Mumps/Rubella Vaccine Live 0.5 ml 10/16/24 09:00 Measles,Mumps,Rubella Vacc/Pf 0.5 Ml Vial SQ 10/16/24 09:01 .ONCE ONE Nalbuphine HCl 10 mg 10/13/24 18:47 10/14/24 11:08 Nalbuphine Hcl 10 Mg/Ml Ampule IV 10 mg Q3H PRN Administration Pain Scale 4-6 Ondansetron HCl 4 mg 10/13/24 18:47 10/14/24 14:23 Ondansetron Pf 4 Mg/2 Ml Vial IV 4 mg Q6H PRN Administration Nausea And Vomiting Ondansetron HCl 4 mg 10/13/24 18:47 Ondansetron 4 Mg Rapdis Tablet SL Q6H PRN Nausea And Vomiting Senna 17.2 mg 10/14/24 20:00 Sennosides 8.6 Mg Tablet PO QHS PRN Constipation Simethicone 80 mg 10/14/24 19:12 Simethicone 80 Mg Tab.Chew PO QID PRN Abdominal Distention Temazepam 15 mg 10/14/24 19:12 Temazepam 15 Mg Capsule PO QHS PRN Sleep Witch Kellen/Glycerin 1 pad 10/14/24 19:12 Glycerin/Witch [place] Pads TOPICAL Q2H PRN Pain Diet Category Date Time Status Regular Consistency Diet Diet 10/14/24 19:12 Active Respiratory Oxygen Delivery Method Room Air Oxygen Delivery Method Room Air Oxygen Delivery Method Room Air Bowels Bowel Pattern No Bowel Movement Renal Bladder Pattern Continent Bladder Pattern Continent Bladder Pattern Continent,Hesitancy Catheter Urinary Catheter Date of 10/15/24 Insertion [Straight] Urinary Catheter Date of 10/15/24 Insertion [Straight] Urinary Catheter Date of 10/14/24 Insertion [Urethral] Urinary Catheter Time of 06:08 Insertion [Straight] Urinary Catheter Time of 06:08 Insertion [Straight] Urinary Catheter Time of 13:40 Insertion [Urethral] Date Urinary Catheter Removed 10/14/24 [Urethral] Time Urinary Catheter 17:13 Discontinued [Urethral]
[2024-10-16 00:05] VITALS: BP 131/75; PULSE 81; TEMP 37; O2SAT 99
[2024-10-16] MEDS: DOCUSATE SODIUM 100 MG CAPSULE PO (00:06)
[2024-10-16 07:35] VITALS: TEMP 36.3
[2024-10-16 07:42] VITALS: BP 138/88; PULSE 106
[2024-10-16] MEDS: IBUPROFEN 600 MG TABLET PO (07:42)
[2024-10-16] MEDS: ACETAMINOPHEN 325 MG TABLET 650 MG PO (07:42)
--- NOTE | 2024-10-16 08:43 | PM.OBPN ---
OB - PN: Subj Subjective Patient comments: no complaints and pain well controlled [place] status: doing well Exam Constitutional Vital Signs, click to edit/add: Last Vital Signs Temp 97.4 F L 10/16/24 07:35 Pulse 106 H 10/16/24 07:42 Resp 16 10/16/24 07:35 BP 138/88 10/16/24 07:42 Pulse Ox 99 10/16/24 00:05 O2 Del Method Room Air 10/16/24 07:35 Documenting provider has reviewed patient's vital signs: yes Common normals: no apparent distress Respiratory Common normals: normal respiratory effort and clear to auscultation bilaterally Cardio Common normals: regular rate and regular rhythm GI Common normals: Normal to inspection, nondistended, normoactive bowel sounds present Extremity Common normals: no clubbing, cyanosis or edema and no calf tenderness Urinary Catheter Management Urinary Catheter Management Urethral: Cath placed during this visit: yes, but has since been removed by the nurse Insertion date: 10/14/24 Insertion time: 13:40 Removal date: 10/14/24 Removal time: 17:13 Straight: Cath placed during this visit: yes Urethral indwelling: No Insertion date: 10/15/24 Insertion time: 06:08 OB - PN: A/P Plan - Vaginal Delivery day: 2 Plan: routine care, discharge home and follow up 6 weeks Time Spent with Patient Time: Total time spent is greater than 50% in coordination of care (as documented) at patient's floor/unit and/or counseling patient: Total time spent with greater than 50% in coordination of care (as documented) at patient's floor/unit and/or counseling patient: less than 15 minutes
== END 2024-10-16 13:15 | disposition home or self-care (01) | DRG 807 ==
PROVIDERS: Admitting Provider Obstetrics & Gynecology; PCP Internal Medicine; Visit Provider Obstetrics & Gynecology
DX: O99.824 Streptococcus B carrier state complicating childbirth (principal); Z37.0 Single live birth; O70.1 Second degree perineal laceration during delivery; Z3A.39 39 weeks gestation of pregnancy
CPT/HCPCS: 36415; 51702; 59050; 59410; 80307; 85025; 85027; 86850; 86900; 86901; 94640; J0690; J1885; J2210; J2300; J2405; J2795

== ENCOUNTER 2025-03-27 19:58 | Outpatient (REF) | payer BC, OTHER, SELFPAY ==
--- OUTSIDE RECORDS SUMMARY | 2018-10-14 10:54 | XMS_ITS | Continuity of Care Document ---
Author Organization [facility] Address [address] [place] [address] Phone Care Team Providers Care Quality Engineering Manager Name Role Phone Timmy Wynn Unavailable Unavailable Allergies, Adverse Reactions, Alerts Substance Reaction Status Criticality No Known Allergies Active No Inform ation Procedures Procedure Date IMMUNIZATION ADMIN HEP A VACCINE, ADULT IM IMMUNIZATION ADMIN, EACH ADD MENB RP W/OMV VACCINE IM IMMUNIZATION ADMIN, EACH ADD HPV 9 Valent IMMUNIZATION ADMIN, EACH ADD HPV 9 Valent IMMUNIZATION ADMIN, EACH ADD Meningococcal Conjugate Vaccine 017 IMMUNIZATION ADMIN MENB RP W/OMV VACCINE IM OFFICE/OUTPATIENT VISIT, EST HPV 9 Valent MENB RP W/OMV VACCINE IM Meningococcal Conjugate Vaccine 017 IMMUNIZATION ADMIN, EACH ADD HEP A VACCINE, ADULT IM IMMUNIZATION ADMIN HPV 9 Valent OFFICE/OUTPATIENT VISIT, EST PREV VISIT, EST, AGE 12-17 PREV VISIT, EST, AGE 12-17 OFFICE/OUTPATIENT VISIT, EST OFFICE/OUTPATIENT VISIT, EST OFFICE/OUTPATIENT VISIT, EST NIX 2 OZS OFFICE/OUTPATIENT VISIT, EST OFFICE/OUTPATIENT VISIT, EST OFFICE/OUTPATIENT VISIT, EST NIX 2 OZS OFFICE/OUTPATIENT VISIT, EST PREV VISIT, NEW, AGE 12-17 OFFICE/OUTPATIENT VISIT, EST Imm Admin Through 18 Yrs Of Age 013 MENINGOCOCCAL VACCINE, IM Imm Admin Through 18 Yrs Of Age 013 TDAP VACCINE >7 IM Advance Directives Directive Yes / No Effective Date File Name No Information Encounters Encounter Description Practice Location Reason(s) For Visit Diagnoses Date Provider Providers Copied on Encounter [facility], [address] [place] [address], [id number], [place] tel:[phone] [facility] No Information 9 Kingsley Warner. [address] [place] [address], [id number], [place]. tel: [phone] [facility], [address] [place] [address], [id number], [place] tel:[phone] [facility] Recurrent major depressive disorder 9 Kingsley Warner. [address] [place] [address], [id number], [place]. tel: [phone] [facility], [address] [place] [address], [id number], [place] tel:[phone] [facility] Recurrent major depressive disorder 9 Kingsley Warner. [address] [place] [address], [id number], [place]. tel:[phone] [facility], [address] [place] [address], [id number], [place] tel:[phone] [facility] No Information 7 Toby Morillo. [address] [place] [address], [id number] , [place]. tel: [phone] OFFICE/OUTPAT IENT VISIT, [facility], [address], [place], [id number], [place] tel:[phone] [facility] No Information 7 Visci DO Quinn. [address], [place], [id number] , [place]. tel: [phone] [facility], [address], [place], [id number], [place] tel:[phone] [facility] No Information 7 Visci DO Quinn. [address], [place], [id number] , [place]. tel: [phone] OFFICE/OUTPAT IENT VISIT, [facility], [address] [place] [address], [id number], [place] tel:[phone] [facility] med refill (chief complaint) AsthmaUpper respiratory infection 5 Agustin Ewing. [address], [place], [id number] , [place]. tel: [phone] PREV VISIT, [facility], AGE 12-17 [facility], [address], [place], [id number], [place] tel:[phone] [facility] physical (sport) (chief complaint)a sthma (chief complaint) Other general medical examination for administrative purposes 4 Hembuffy Ford. [address], [place], [id number] , [place]. OFFICE/OUTPAT IENT VISIT, [facility], [address], [place], [id number], [place] tel:[phone] [facility] No Information 3 Visci DO Quinn. [address], [place], [id number] , [place]. tel: [phone] OFFICE/OUTPAT IENT VISIT, [facility], [address], [place], [id number], [place] tel:[phone] [facility] No Information Jan- 3 Visci DO Ball. [address], [place], [id number] , [place]. tel: [phone] OFFICE/OUTPAT IENT VISIT, [facility], [address], [place], [id number], [place] tel:[phone] [facility] No Information Sep- 3 Visci DO Ball. [address], [place], [id number] , [place]. tel: [phone] OFFICE/OUTPAT IENT VISIT, [facility], [address], [place], [id number], [place] tel:[phone] [facility] No Information 3 Visci DO Ball. [address], [place], [id number] , [place]. tel: [phone] OFFICE/OUTPAT IENT VISIT, [facility], [address], [place], [id number], [place] tel:[phone] [facility] No Information Sep 3 Visci DO Ball. [address], [place], [id number] , [place]. tel: [phone] OFFICE/OUTPAT IENT VISIT, [facility], [address], [place], [id number], [place] tel:[phone] [facility] No Information Sep-0 3 Visci DO Ball. [address], [place], [id number] , [place]. tel: [phone] OFFICE/OUTPAT IENT VISIT, [facility], [address], [place], [id number], [place] tel:[phone] [facility] physical (school) (chief complaint)w heezing (chief complaint) Routine Medical ExamAsthmaNeed for prophylactic vaccination and inoculation against other specified single bacterial diseaseNeed for prophylactic vaccination with combined diphtheria-teta nus-pertussis (DTP) (DTaP) vaccineRoutine Medical Exam 3 Parth Ford. [address] [place] [address], [id number] , . Family History Family Member Type Diagnosis Age At Onset Mother Problem (finding) Alive and well Problem (finding) Family history of Diabetes mellitus Mother Problem (finding) learning disability Maternal grandmother Problem (finding) migraine Immunizations Vaccine Date Status Comments Hep A (adult) administered Source: New Im munization Record meningococcal B, OMV, 2 dose schedule administered Source: New Immuniza tion Record HPV (9-valent) administered Source: New I mmunization Record HPV (9-valent) administered Source: New I mmunization Record meningococcal MCV4P administered Source: New Immunization Record Influenza virus vaccine, injectable, quadrivalent, split virus, preservative free, 3 years or older Fluarix, Flulaval or Fluzone Quad refused Source: New Immuniza tion Record meningococcal B, OMV, 2 dose schedule administered Source: New Immuniza tion Record Influenza virus vaccine, injectable, quadrivalent, split virus, preservative free, 3 years or older Fluarix, Flulaval or Fluzone Quad refused Source: New Immuniza tion Record Hep A (adult) administered Source: New Im munization Record HPV (9-valent) administered Source: New I mmunization Record Tdap administered Source: New Imm unization Record MCV4 (11-55 yrs) administered Note: Vis g iven for all vaccines given today. ; Source: New Immunization Record Payers Payer name Insurance type Covered democrat ID Authoriza tion(s) [place] Adv CFC 190 [id number] Medicaid Wrap - FQHC MC [id number] [employer] Advantage Medicaid MC [id number] 01 Medicaid Wrap - FQHC MC [id number] [employer] Advantage Medicaid MC [id number] 01 Medicaid Wrap - [employer]QHC MC [id number] [employer] Advantage Medicaid MC [id number] 01 Medicaid Wrap - [employer]QHC MC [id number] Social History Type Description Quantity Date Captured Comments Sex Female Smoking Status No Information Sexual Orientation Choose not to disclose Gender Identity Female Chief Complaint And Reason For Visit No Information Reason For Referral Reason For Referral No Information Plan Of Treatment Date Type Action Status Goal PAP. Due on due Goal Depression screening. Due on due Goal H&P. Due on due Goal Influenza vaccine. Due on due Goal RLP. Due on due Goal H&P. Due on due Goal RLP. Due on due Goal Influenza vaccine. Due on due Goal PAP. Due on due Goal Depression screening. Due on due Goal H&P. Due on due Goal Depression screening. Due on due Goal RLP. Due on due Goal Influenza vaccine. Due on due Goal H&P. Due on due Goal Influenza vaccine. Due on due Goal Depression screening. Due on due Goal HPV (). Due on due Goal Influenza vaccine. Due on due Goal Depression screening. Due on due Goal HPV (). Due on due Goal H&P. Due on due Goal Tdap due Goal HPV (1st). Due on 5 due Goal H&P. Due on due Goal Depression screening. Due on due Goal H&P. Due on due Goal TD Vaccine. Due on 13 due History Of Present Illness Encounter Date Complaint History Of Prese nt Illness med refill Client here for refill on inhaler. C/O cough, farooq. at night, expectorates yellow sputum. C/O sinus congestion, H/A pressure, and lt. ear feels plugged. Denies fever or dyspnea. States has hx of asthma, uses Albuterol 2 puffs prn, needs refill. Aj Galicia R.N. Functional Status Date Functional Assessmen t No Information Instructions Date Instruction Additional Infor mation No Information Assessments Type Assessment Date No Information Patient Care Teams Name Effective Dates (start - stop) Status Members No Information
--- OUTSIDE RECORDS SUMMARY | 2023-11-03 03:45 | XMS_ITS ---
Author Organization [facility] es Address [address] [address] Care Team Providers Care Nurse Transplant Name Role Phone Dr. José Miguel Calderon Primary Care Provider Miguel Toibn Unavailable [phone] REASON FOR VISIT FILLING Encounters Encounter Location Date Provider Diagnosis [facility] [address] [address] 11/03/2023 Miguel Tobin Plan Of Treatment No Information Progress Notes * GAMBLEGRIFFINOB: 7 (30 yo F)Acc No.[id number]:11/03/2023 Patient:?GERALDINE GAMBLEITLYN :?Miguel Bettencourt DDSDOB:1995???Age:28 Y???Sex: FemaleDate:11/03/2023hone:[phone]:[address] [place], [place] [id number]:Dr. José Miguel Calderon Subjective: * Chief Complaints: * F ILLING * Electronic signature of Miguel Tobin on 03/27/2025 at 07:05 AM ESTSign off status: Pending * Provider: Crissy Bettencourt DDS Date: 0 11/03/2023 Generated for Printing/Faxing/eTransmitting on:?03/27/2025 07:05 AM EST
--- OUTSIDE RECORDS SUMMARY | 2023-12-03 04:25 | XMS_ITS ---
Author Organization [facility] es Address [address] [place] [address] Care Team Providers Care Wealth Management Consultant Name Role Phone Dr. José Miguel Calderon Primary Care Provider Miguel Tobin Unavailable [phone] REASON FOR VISIT FILLING Encounters Encounter Location Date Provider Diagnosis [facility] [address] [place] [address] 12/03/2023 Miguel Tobin Plan Of Treatment No Information Progress Notes * GRIFFIN GAMBLEOB: 7 (30 yo F)Acc No.[id number]:12/03/2023 Patient:?GERALDINE GAMBLEITLYN :?Miguel Bettencourt DDSDOB:1995???Age:28 Y???Sex: FemaleDate:12/03/2023hone:[phone]:[address] [place], [place] [id number]:Dr. José Miguel Calderon Subjective: * Chief Complaints: * F ILLING * Electronic signature of Miguel Tobin on 03/27/2025 at 07:05 AM ESTSign off status: Pending * Provider: Crissy Bettencourt DDS Date: 0 12/03/2023 Generated for Printing/Faxing/eTransmitting on:?03/27/2025 07:05 AM EST
--- OUTSIDE RECORDS SUMMARY | 2024-02-16 04:30 | XMS_ITS ---
Author Organization [facility] in [place] Address [address] [place] [address] Care Team Providers Care Contact Lens Technician Name Role Phone Anibal BA, Jeermi Primary Care Provider UnavailMaury Hahn Unavailable [phone] Encounters Encounter Location Date Provider Diagnosis [facility] [place] [address] [place] [address] 02/16/2024 Maury Barnard Plan Of Treatment No Information Progress Notes * Sindhu SHELTONSherryOB: 7 (30 yo F)Acc No.[id number]:02/16/2024 UNLOCKED PROGRESS NOTE Progress Notes Patient: Devorah NAVARRETE :?KELSEY ShellOB:1995???Age:28 Y ???Sex:FemaleDate:02/16/2024hone:[phone]:[address] [place], [place] [address]Pcp:Jeremi Barnett MD Subjective: * Chief Complaints: Objective: Assessment: Plan: * * Electronic signature of Maury Barnard DO, [id number] on 03/27/2025 at 07:05 AM ESTSign off status: PendingVisit Status:?CANC (Cancelled) * Provider: Evan Barnard DO Date: 0 02/16/2024 Generated for Printing/Faxing/eTransmitting on:?03/27/2025 07:05 AM EST
--- OUTSIDE RECORDS SUMMARY | 2024-02-16 04:40 | XMS_ITS ---
Author Organization [facility] in [place] Address [address] [place] [address] Care Team Providers Care Curator Of Collections Name Role Phone Anibal BA, Jeremi Primary Care Provider Unavailabl Susanne Mclain Unavailable [phone] Encounters Encounter Location Date Provider Diagnosis [facility] [place] [address] [address] 02/16/2024 Susanne Cabral Plan Of Treatment No Information Progress Notes * Loli SHELTONOB: 7 (30 yo F)Acc No.[id number]:02/16/2024 UNLOCKED PROGRESS NOTE Established Patient: Devorah NAVARRETE :?Susanne Cabral NPDOB:1995???Age:28 Y ???Sex:FemaleDate:02/16/2024hone:[phone]:[address] [facility]Pcp:Jeremi Barnett MD Subjective: * Chief Complaints: * [address] * Medical History: Objective: * Vitals: Assessment: Plan: * Treatment: * * Electronic signature of Susanne Cabral CNP, [id number] on 03/27/2025 at 07:05 AM ESTSign off status: PendingVisit Status:?CANC (Cancelled) * Provider: Jonathan Cabral NP Date: 0 02/16/2024 Generated for Printing/Faxing/eTransmitting on:?03/27/2025 07:05 AM EST
--- OUTSIDE RECORDS SUMMARY | 2025-03-24 07:45 | XMS_ITS | Encounter Summary ---
Author Organization [facility] Address [address] [place] [address] Care Team Providers Care Heat Plant Specialist Name Role Phone Jeremi Barnett MD Primary Care Provider [phone] Reason for Referral * Consultation (Routine) - Pending ReviewSpecialtyDiagnoses / ProceduresReferred By ContactReferred To ContactBehavioral Health Diagnoses Moderate major depression (HCC) Generalized anxiety disorder Trouble in sleeping Panic attacks Morbid (severe) obesity due to excess calories (CMS-HCC) Procedures [place] OFFICE/OUTPATIENT NEW HIGH MDM 60 MINUTES Kary Duron PA [address] [facility] [address] [place] [address] Phone: tel: fax: Pretty Austin, [facility] [address] [facility] [address] [place] [address] Phone: tel: Referral IDStatusReasonStart DateExpiration DateVisits RequestedVisits [id number] Review Specialty Services Required / Reason for Visit * ReasonCommentsPanic Attack Encounter Details DateTypeDepartmentCare Team (Latest Contact Info)Zzghmywklzq02/31/2025 8:45 AM EDTOffice Visit [facility] [address] [facility] [address] [place] [phone] Kary Duron PA [address] [place] [address] Moderate major depression (HCC) (Primary Dx); Generalized anxiety disorder; Trouble in sleeping; Panic attacks; Morbid (severe) obesity due to excess calories ([facility]) Social History Tobacco UseTypesPacks/DayYears UsedDateSmoking Tobacco: NeverSmokeless Tobacco: NeverAlcohol UseStandard Drinks/WeekCommentsYes0 (1 standard drink = 0.6 oz pure alcohol)Once in a while. Caffeine, 1 pop dailyAUDIT-CAnswerDate RecordedQ1: How often do you have a drink containing alcohol?Never01/11/2024Q2: How many drinks containing alcohol do you have on a typical day when you are drinking?Patient does not drink01/11/2024Q3: How often do you have six or more drinks on one occasion?Never01/11/2024HQ-2AnswerDate RecordedPatient Health Questionnaire-2 Atwzn536CommentsUnknownSex and Gender InformationValueDate RecordedSex Assigned at BirthNot on fileLegal NobGzcpym86/15/2023 6:48 PM EDT Gender IdentityNot on fileSexual OrientationNot on fileOccupationIndustryJob Start DateJob End DateMedical 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 female presents with chief complaint of Panic Attack HPI: History of Present Illness The patient presents for evaluation of panic attacks and sleep issues. She experienced a panic attack yesterday morning, characterized by a rapid heart rate, nausea, and dizziness. This episode occurred prior to her therapy session and they have only occurred on days prior to her therapy sessions. She recalls a similar incident the previous day when she was able to discuss her issues with a colleague in the break room without any distress. However, the prospect of at tending her therapy session triggered another panic attack. She also reports difficulty in initiating sleep, often lying awake even when her baby is asleep. Her sleep duration is typically limited toa few hours. She has attempted to manage her sleep issues with melatonin gummies, but these have proven ineffective. She is currently on Wellbutrin, which she takes in the morning. She notes that if she forgets to take it in the morning and instead takes it at night, it results in insomnia. Despitethese challenges, she acknowledges an improvement in her mood since starting Wellbutrin. Denies anySI/HI. Sleep: Reports difficulty initiating sleep and limited sleep duration, typically only a few hours per night. I have reviewed and reconciled the history and medication list with the patient today. HISTORIES: PAST MEDICAL HISTORY: Medical History[1] SURGICAL HISTORY: Surgical History[2] SOCIAL HISTORY: Social History[3] Depression: Not at risk (11/15/2024) PHQ-2 PHQ-2 Score: 0 FAMILY HISTORY: Family History[4] MEDICATIONS: Current Outpatient Medications Medication Instructions buPROPion XL (WELLBUTRIN XL) 150 mg, Oral, Every morning, Do not crush, chew, or split. nystatin-triamcinolone (Mycolog II) cream Topical, 2 times daily sertraline (ZOLOFT) 25 mg, Oral, Daily ALLERGIES: Allergies[5] PHYSICAL EXAM: Visit Vitals Wt 203 lb BMI 37.13 kg/m?? OB Status Unknown Smoking Status Never BSA 2.01 m?? BP Readings from Last 3 Encounters: 02/24/25 116/78 02/10/25 122/80 12/18/24 118/82 Wt Readings from Last 3 Encounters: 03/24/25 203 lb 02/24/25 203 lb 02/10/25 203 lb Physical Exam General Examination: alert, oriented, normal affect, well-appearing, in no acute distress, well developed, well nourished. Head: normocephalic, atraumatic Extremities: no edema, no cyanosis Psych: alert, oriented, cognitive function intact, cooperative with exam. Results ASSESSMENT AND PLAN: Assessment & Plan 1. Panic attacks: - She reports experiencing panic attacks, particularly before therapy sessions, characterized by a racing heart, nausea, and dizziness. - She is currently taking Wellbutrin in the morning, which has improved her mood but may be contributing to her sleep disturbances. - A referral to a psychiatric nurse practitioner for further evaluation and management of her panicattacks will be made. She is also encouraged to discuss this with her counselor because they have only occurred as a trigger/prior to her therapy sessions. - She is advised to continue her current medication regimen until seen by the specialist. 2. Sleep disturbances: - She reports difficulty sleeping, often only getting a couple of hours of sleep per night. Melatonin has been ineffective. - The potential side effects of Wellbutrin on her sleep were discussed and make sure she only takesin AM. - She is advised to avoid taking Wellbutrin at night and to continue taking it in the morning. - A referral to a psychiatric nurse practitioner will be made to address her sleep issues in addition to her psych issues more comprehensively. 3. Generalized anxiety disorder -mood has significantly improved since started wellbutrin. 4. Moderate major depression -mood has significantly improved since started Wellbutrin. [1] Past Medical History: Diagnosis Date Asthma (HCC) Moderate single current episode of major depressive disorder (HCC) NAFLD (nonalcoholic fatty liver disease) Ovarian cyst 2016 Plantar verruca Tinnitus, bilateral [2] Past Surgical History: Procedure Laterality Date ADENOIDECTOMY W/ MYRINGOTOMY AND TUBES 2006 TONSILLECTOMY 07/07/2022 [3] Social History Tobacco Use Smoking status: Never Smokeless tobacco: Never Vaping Use Vaping status: Never Used Substance Use Topics Alcohol use: Yes Comment: Once in a while. Caffeine, 1 pop daily Drug use: Never [4] Family History Problem Relation Name Age of [...] Heart disease Maternal Great-Grandmother Diabetes Maternal Great-Grandmother [5] Allergies Allergen Reactions Amoxicillin-Pot Clavulanate Diarrhea Other Reaction(s): diarrhea Clavulanic Acid GI intolerance Penicillin G Sodium Other Reaction(s): vomiting, diarrhea documented in this encounter Plan of Treatment DateTypeDepartmentCare Team (Latest Contact Info)Eagfteabqmr08/06/2025 12:00 PM ESTSocial Work [facility] [address] [place] [address] Flora Hernández LISW [address] [place] [address] 11/15/2025 1:00 PM EDTOffice Visit [facility] [address] [place] [address] 04/02/2026 2:00 PM ESTProcedure Visit [facility] [address] [place] [phone] Donovan Vora DO [address] [place] [address] NameTypePriorityAssociated DiagnosesOrder ScheduleAmbulatory referral to Behavioral HealthOutpatient ReferralRoutine Moderate major depression (HCC) Generalized anxiety disorder Trouble in sleeping Panic attacks Morbid (severe) obesity due to excess calories ([facility]) Expected: 03/24/2025 (Approximate), Expires: 09/21/2025documented as of this encounter Goals GoalPatient Goal TypeAssociated ProblemsRecent ProgressPatient-Stated?Author Reminders Care PlanOB RemindersNoOpen Scheduling, Backgrounddocumented as of this encounter Visit Diagnoses Diagnosis Moderate major depression (HCC)- Primary Major depressive disorder, single episode, moderate Generalized anxiety disorder Trouble in sleeping Unspecified sleep disturbance Panic attacks Panic disorder without agoraphobia Morbid (severe) obesity due to excess calories ([facility]) documented in this encounter Additional Health Concerns Active ProblemsNoted DateDiagnosed DateOB Tcpquhnfb38/23/2025 documented as of this encounter Care Teams Team MemberRelationshipSpecialtyStart DateEnd Date Jeremi Barnett MD [address] [place] [phone] PCP - GeneralInternal Medicine10/17/22documented as of this encounter
--- OUTSIDE RECORDS SUMMARY | 2025-03-27 14:20 | XMS_ITS | Encounter Summary ---
Author Organization [facility] Address [address] [place] [address] Care Team Providers Care Rest Room Matron Name Role Phone Jeremi Barnett MD Primary Care Provider [phone] Reason for Visit * ReasonCommentsWell Women Visit Encounter Details DateTypeDepartmentCare Team (Latest Contact Info)Vpvpwpngnvo90/03/2025 2:20 PM ESTProcedure Visit [facility]IRA [place] [facility] [address] [place] [address] Donovan Vora DO [address] [place], [place] [id number] Well woman exam with routine gynecological exam; examination or test, positive result ([facility]) Social History Tobacco UseTypesPacks/DayYears UsedDateSmoking Tobacco: NeverSmokeless [...] drinks on one occasion?Never01/11/2024HQ-2AnswerDate RecordedPatient Health Questionnaire-2 Ivlom269CommentsUnknownSex and Gender InformationValueDate RecordedSex Assigned at BirthNot on fileLegal JsaUcifxq76/15/2023 6:48 PM EDT Gender IdentityNot on fileSexual OrientationNot on fileOccupationIndustryJob Start DateJob End DateMedical Managed Care Nurse/Medical AsstNot on fileNot on fileNot on filedocumented as of this encounter Last Filed Vital Signs Vital SignReadingTime TakenCommentsBlood Cdciadhk403/7003/27/2025 2:42 PM EST Pulse--Temperature--Respiratory Rate--Oxygen Saturation--Inhaled Oxygen Concentration--Iumeqb37.5 kg (212 lb 12.8 oz)03/27/2025 2:42 PM ESTHeight--Body Mass Index38.9203/24/2025 8:38 AM EDTdocumented in this encounter Plan of Treatment DateTypeDepartmentCare Team (Latest Contact Info)Vfeaslmyimr38/06/2025 12:00 PM ESTSocial Work [facility] [address] [place] [phone] Flora Hernández LISW [address] [place] [address] 11/15/2025 1:00 PM EDTOffice Visit [facility] [address] [place] [address] 04/02/2026 2:00 PM ESTProcedure Visit SHAKIRA FRENCH [address] [place] [phone] Donovan Vora, [address] [facility] [place] [address] NameTypePriorityAssociated DiagnosesOrder SchedulePap SmearPathology and CytologyRoutine Well woman exam with routine gynecological exam Ordered: 03/27/2025hCG, quantitativeLabRoutine Well woman exam with routine gynecological exam Ordered: 03/27/2025documented as of this encounter Goals GoalPatient Goal TypeAssociated ProblemsRecent ProgressPatient-Stated?Author Reminders Care PlanOB RemindersNoOpen Scheduling, Backgrounddocumented as of this encounter Procedures Procedure NamePriorityDate/TimeAssociated DiagnosisCommentsPOCT , URINE Sawvibp7403/27/2025 2:49 PM EST examination or test, positive result ([facility]) documented in this encounter Results * POCT , urine manually resulted (03/27/2025 2:49 PM EST)ComponentValue Ref RangeTest MethodAnalysis TimePerformed AtPathologist SignaturePreg Test, UrNegativeNegativeSpecimen (Source)Anatomical Location / LateralityCollection Method / VolumeCollection TimeReceived NrmmSxnrh76/03/2025 2:49 PM EST Narrative Authorizing ProviderResult TypeResult StatusCorey Vielka DOPOINT OF CARE TEST ENTER/EDIT ORDERABLESFinal Result documented in this encounter Visit Diagnoses Diagnosis Well woman exam with routine gynecological exam Routine gynecological examination examination or test, positive result ([facility]) examination or test, positive result documented in this encounter Additional Health Concerns Active ProblemsNoted DateDiagnosed DateOB Qnmpiexxj90/23/2025 documented as of this encounter Care Teams Team MemberRelationshipSpecialtyStart DateEnd Date Jeremi Barnett MD [address] [place] [phone] PCP - GeneralInternal Medicine10/17/22documented as of this encounter
--- OUTSIDE RECORDS SUMMARY | 2025-03-27 20:03 | XMS_ITS | Patient Health Record ---
Author Organization [facility] Address [address] [place] [address] [place] [address] Care Team Providers Care Property Coordinator Name Role Phone Emery Yanes Unavailable [phone] Allergies Allergen (clinical drug ingredient) Drug/Non Drug Allergy documented on EMR Reaction Allergy Type Onset Date Status hayfever/seasonal (uncoded)UnknownAllergyActive Reason For Referral No Information Medications Medication SIG (Take, Route, Frequency, Duration) Notes Start Date End Date Status Ventolin HFA prnActiveibuprofenprnActive Social History Tobacco Use: Social History Observation Description Date Details (start date - stop date) Never Smoker NA - NA tobacco use Question Answer Notes Patient is a: non smoker Problems Problem Type SNOMED Code ICD Code Onset Dates Problem Status W/U Status Risk Notes Problem Plantar wart (39820071) Plantar wart (B07 .0) ActiveconfirmedProblemPain in right foot (587681944594379)Pain in right foot (M79.671)Activeconfirmed Plan Of Treatment No Information Insurance Providers Payer Name Payer Address Payer Phone Subscriber Number Group Number Insured Name Patient Relationship to Insured Coverage Start Date Coverage End Date [employer] [address] [place] [address] [id number] Devorah Shelton Self - patient is the insured Medical (General) History Medical History History ICD Code asthma fracture little finger L handSurgical History Surgery Date(Month/Year) tubes in ears 2000
--- OUTSIDE RECORDS SUMMARY | 2025-03-27 20:03 | XMS_ITS | Encounter Summary ---
Author Organization [facility] Address [address] [place] [address] Care Team Providers Care Engraver Flatware Name Role Phone Jelly Chery MD Primary Care Provider [phone] Encounter Details DateTypeDepartmentCare Team (Latest Contact Info)Tcumgmwahuo95/17/2024Clinisync Result Encounter [facility] External Department Unsolicited Provider, Generic External Data Social History Tobacco UseTypesPacks/DayYears UsedDateSmoking Tobacco: NeverSmokeless Tobacco: NeverAlcohol UseStandard Drinks/WeekCommentsYes0 (1 standard drink = 0.6 oz pure alcohol)Once in a whileAUDIT-CAnswerDate RecordedQ1: How often do you have a drink containing alcohol?Never01/11/2024Q2: How many drinks containing alcohol do you have on a typical day when you are drinking?Patient does not drink 01/11/2024Q3: How often do you have six or more drinks on one occasion?Never 01/11/2024HQ-2AnswerDate RecordedPatient Health Questionnaire-2 Score0 11/15/2024CommentsYesSex and Gender InformationValueDate RecordedSex Assigned at BirthNot on fileLegal HjyYkgpss78/15/2023 6:48 PM EDTGender Identity Not on fileSexual OrientationNot on fileOccupationIndustryJob Start DateJob End DateMedical Manufacturing Group Leader/Medical AsstNot on fileNot on fileNot on filedocumented as of this encounter Functional Status * Over the past 2 weeks, how often have you been bothered by any of the following problems?QuestionAnswerDate of AssessmentAuthorLittle interest or pleasure in doing thingsNot at all11/15/2024 1:53 PM Lena Wesley MA Feeling down, depressed, or hopelessNot at all11/15/2024 1:53 PM Lena Wesley, MAPatient Health Questionnaire-2 Wlkpd055 1:53 PM Lena Wesley MA documented as of this encounter Plan of Treatment DateTypeDepartmentCare Team (Latest Contact Info)Cndrhncjmod02/06/2025 12:00 PM ESTSocial Work [facility] [address] [place] [address] Flora Hernández LISW [address] [place] [address] 11/15/2025 1:00 PM EDTOffice Visit [facility] [address] [place] [address] 04/02/2026 2:00 PM ESTProcedure Visit [facility] [place] [facility] [address] [place] [phone] Nayely Vora DO [address] [facility] [place] [address] documented as of this encounter Procedures Procedure NamePriorityDate/TimeAssociated DiagnosisCommentsUS OB TRANSVAGINAL 03/10/2024 1:52 PM EDT documented in this encounter Results * US OB TRANSVAGINAL (03/10/2024 1:52 PM EDT)Anatomical RegionLateralityModality OtherSpecimen (Source)Anatomical Location / LateralityCollection Method / VolumeCollection TimeReceived Time03/10/2024 1:52 PM EDT Narrative 03/10/2024 1:55 PM EDT [facility] ?[address] ? [place] [address] ? Ultrasound Report ? Signed ? Patient: SHELTON,MACARENA M ?MR#: [id number] ?? : 1995 ?Acct:[id number] ?? Age/Sex: 29 / F ?ADM Date: 10/17/24 ?? Loc[facility] ? Attending Dr: Nayely Vora D.O. ? Ordering Physician: Nayely Vora D.O. ?? Date of Service: 03/10/24 ?? Procedure(s): US OB transvaginal ?? Accession Number(s): [id number] ? cc: Nayely Vora D.O.; JELLY CHERY ? [facility] ? [address] ? [place] [address] ? Patient Name: ?? MACARENA SHELTON ? MRN: [facility]:[id number] ? date: 1995 ?Sex: F ?? Assigned Patient Location: [facility] ?? Current Patient Location: [facility] ?? Accession/Order Number: [id number] ?? Exam Date: 03/10/2024 ??12:33 ?Report Date: 03/10/2024 ??13:52 ? At the request of: ?? NAYELY ??JOHANN ? Procedure: ??US OB transvaginal ? EXAMINATION: US OB transvaginal ? HISTORY: MISSED MENSES ? COMPARISON: No relevant comparison available. ? FINDINGS: ? Mack intrauterine gestation ? Gestational sac: 2.71 cm, 7 weeks 4 days ?? CRL: 1.71 cm, 8 weeks 1 day ?? Yolk sac: 3.1 cm ?? Heart rate: 160 bpm ? The uterus is normal, anteverted, anteflexed. Adjacent to the gestational sac ?? is a 1.1 x 1.0 x 1.3 cm area of hypoechogenicity possibly representing a small ? subchorionic hematoma ? The ovaries are normal ? Cervix: Closed, 3.5 cm ? Clinical age: 8w5d ?? Clinical greta: 5/24/25 ? Ultrasound age: 8w1d ?? Ultrasound greta: 5/28/25 ? US/US OB transvaginal ?? IMPRESSION: ? Viable mack intrauterine gestation measuring 8 weeks 1 day ? Electronically authenticated by: JIE ??WEST ?? Date: 03/10/2024 ??13:52 ? Dictated By: ?Jie Torres M.D. ? Signed By: ?03/10/24 1355 ? DD/ 1352 ? TD/TT: ? Principal Security Architect: Procedure Note Radiology, Radiologist, - 03/10/2024 [place] [address] Ultrasound Report Signed Patient: MACARENA SHELTON MMR#: [id number] : 1995Acct:[id number] Age/Sex: 29 / FADM Date: 03/10/24 Loc: [facility] Attending Dr: Nayely Vora D.O. Ordering Physician: Nayely Vora D.O. Date of Service: 03/10/24 Procedure(s): US OB transvaginal Accession Number(s): [id number] cc: Nayely Vora D.O.; JELLY CHERY [place] [address] Patient Name: MACARENA SHELTON MRN: [id number] date: 1995 Sex: F Assigned Patient Location: [facility] Current Patient Location: [facility] Accession/Order Number: [id number] Exam Date: 03/10/2024 12:33 Report Date: 03/10/2024 13:52 At the request of: NAYELY VORA Procedure: US OB transvaginal EXAMINATION: US [...] Dictated By: Jie Torres M.D. Signed By:03/10/24 1352 DD/ 1352 TD/TT: Principal Security Architect: Authorizing ProviderResult TypeResult StatusGeneric External Data Provider CLINISYNC IMAGINGFinal Result documented in this encounter Visit Diagnoses Not on filedocumented in this encounter Care Teams Team MemberRelationshipSpecialtyStart DateEnd Date Jelly Chery MD [address] [place] [address] PCP - GeneralInternal Medicine10/17/22documented as of this encounter
--- OUTSIDE RECORDS SUMMARY | 2025-03-27 20:03 | XMS_ITS | Clinical Summary ---
Author Organization [facility] Address [address] [place] [address] Care Team Providers Care Bleacher [employer] Name Role Phone Jeremi Barnett MD Unavailable [phone] Allergies Active AllergyReactionsCriticalityNoted DateCommentsPenicillinsGI Upset,Rash 04/09/2021 Medications MedicationSigDispense QuantityRefillsLast FilledStart DateEnd DateStatus DULoxetine (CYMBALTA) 30 mg capsule Take 30 mg by mouth.10/21/2022ctive Social History Tobacco UseTypesPacks/DayYears UsedDateSmoking Tobacco: Some DaysSmokeless Tobacco: Never Comments:Vapes occasionally CommentsUnknownSex and Gender InformationValueDate RecordedSex Assigned at BirthNot on fileLegal WlxRhwksw51/31/2024 1:59 PM ESTGender IdentityNot on fileSexual OrientationNot on file Last Filed Vital Signs Vital SignReadingTime TakenCommentsBlood Exefmuqu062/6702/09/2023 4:07 PM EST Dkfxg484306/29/2023 4:07 PM CCYRlrpubvdtku05.3 ??C (97.3 ??F)06/29/2023 4:07 PM ESTRespiratory Rate--Oxygen Saturation--Inhaled Oxygen Concentration--Weight-- Height--Body Mass Index-- Plan of Treatment Health MaintenanceDue DateLast DoneCommentsAnxiety Qabpwetpu99/27/2015Depression Uyzxngoyo32/27/2015HIV Omljbtnyc76/27/2015Hepatitis C Opnjfnjvq68/27/2015 Pneumococcal Vaccine (1 of 2 - PCV)02/19/2016Cervical Cancer Tmsvjldpd53/27/2018 Covid-19 Vaccine ( season)511/09/2020, 09/04/2020, 08/13/2020Influenza Vaccine (#1)510/07/2021, 02/22/2021, 04/11/2009 DTaP,Tdap,Td Vaccine (9 - Td or Tdap), 05/12/2017, 12/13/2012, Additional history existsHepatitis B HqrcjnsVbramoykr94/14/1998, 1997, 1997HPV PeuszbpOqzgdrqmj70/28/2017, 08/22/2016, 06/19/2016 Insurance Care Teams Team MemberRelationshipSpecialtyStart DateEnd Jeremi Barnett MD [address] [facility] [address] [place] [address] ReferringInternal Medicine06/26/23
--- OUTSIDE RECORDS SUMMARY | 2025-03-27 20:03 | XMS_ITS | Clinical Summary ---
Author Organization [facility] Address [address] [facility], [address] [place] [address] Care Team Providers Care Ict Managers Name Role Phone Unavailable Primary Care Provider Unavailabl e Allergies Active AllergyReactionsCriticalityNoted DateCommentsAmoxicillin-Pot Clavulanate 12/07/20200507Zfijqsksyfx13/16/2021 Medications MedicationSigDispense QuantityRefillsLast FilledStart DateEnd DateStatus DULoxetine (CYMBALTA) 60 MG extended release capsule Take 1 capsule by mouth dailyActive Social History Tobacco UseTypesPacks/DayYears UsedDateSmoking Tobacco: NeverAlcohol UseStandard Drinks/WeekCommentsNot Currently0 (1 standard drink = 0.6 oz pure alcohol) Interpersonal Safety Domain Source: IP Abuse ScreeningAnswerDate Recorded Physical wvmxgRzaegw74/11/2024Verbal abuseNot on file01/03/2024Emotional abuse Not on file01/03/2024Financial abuseNot on file01/03/2024Sexual abuseNot on file 01/03/2024CommentsNoSex and Gender InformationValueDate RecordedSex Assigned at BirthNot on fileLegal SxcDrfycl04/16/2021 6:46 PM EDTGender Identity Not on fileSexual OrientationNot on file Last Filed Vital Signs Vital SignReadingTime TakenCommentsBlood Jcwhlqrn341/7708 3:58 PM EDT Clkkb6483 3:58 PM AJFSmxljkvjled11 ??C (98.6 ??F)01/03/2024 3:58 PM EDT Respiratory Qiax9147 3:58 PM EDTOxygen Xsxalsesis57%01/03/2024 3:58 PM EDTInhaled Oxygen Concentration--Mfvwjb26 kg (216 lb)12/07/2020 7:25 PM EDT Xxvkzf234.5 cm (5' 2 )12/07/2020 7:25 PM EDTBody Mass Index39.51012/07/2020 7:25 PM EDT Plan of Treatment Health MaintenanceDue DateLast DoneCommentsDepression Wutbkh5002/18/2009Varicella vaccine (1 of 2 - 13+ 2-dose series)2010HIV rntzdo6202/19/2012Hepatitis C xvimnk2202/18/2015Pap smear2018Flu vaccine (#1)510/07/2021, 02/22/2021, 04/11/2009COVID-19 Vaccine ( season)504/, 1DTaP/Tdap/Td vaccine (9 - Td or Tdap), 05/12/2017, 12/13/2012, Additional history existsHepatitis B uwitvfyMbnczrykf08/14/1998, 1997, 1997Hib wdvttpoAjpkzkauc72/29/1998, 1997, 1997, Additional history existsPolio vurqlyaVsqkmoyse35/24/2002, 05/22/1998, 1997, Additional history existsMeningococcal (ACWY) vaccineAged Out 08/22/2016, 12/13/2012No longer eligible based on patient's age to complete this topicHPV xlrzppoDduiixigk84/28/2017, 08/22/2016, 06/19/2016Hepatitis A vaccine Aged Out12/19/2016, 06/19/2016No longer eligible based on patient's age to complete this topicMeningococcal B lnczwrlNskegsjge78/28/2017, 08/22/2016 Pneumococcal 0-49 years VaccineAged OutNo longer eligible based on patient's age to complete this topic Insurance
--- OUTSIDE RECORDS SUMMARY | 2025-03-27 20:03 | XMS_ITS | Patient Health Record ---
Author Organization [facility] [place] Address [address] [place] [address] Care Team Providers Care Gas Brazer Name Role Phone Jeremi Barnett MD Primary Care Provider Unavailabl e Allergies Allergen (clinical drug ingredient) Drug/Non Drug Allergy documented on EMR Reaction Allergy Type Onset Date Status amoxicillin / clavulanate Augmentin diarrhea Drug Aller gy Active Reason For Referral No Information Medications Medication SIG (Take, Route, Frequency, Duration) Notes Start Date End Date Status Flonase ActiveClaritinActiveDULoxetine HCl 60 MGTAKE 1 CAPSULE BY MOUTH ONCE DAILY IN THE MORNING. DO NOT CRUSH OR CHEW Oral; Duration: 30 DaysActiveAzelastine HCl 0.1 %1 puff in each nostril Nasally Twice a day; Duration: 30 day(s)01/22/2024 ActiveBenadrylActive Problems Problem Type SNOMED Code ICD Code Onset Dates Problem Status W/U Status Risk Notes Problem Bilateral tinnitus (2195904945826) Tinnit us, bilateral (H93.13) ActiveconfirmedProblemAllergic rhinitis caused by pollen (disorder) (05951330) Allergic rhinitis due to pollen (J30.1)ActiveconfirmedProblemChronic maxillary sinusitis (22705452)Chronic maxillary sinusitis (J32.0)ActiveconfirmedProblem Bilateral tympanosclerosis (disorder) (66626389626318086)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)ActiveconfirmedProblemBilateral tinnitus (8881646608239) Bilateral tinnitus (H93.13)Activeconfirmed Plan Of Treatment No Information Insurance Providers Payer Name Payer Address Payer Phone Subscriber Number Group Number Insured Name Patient Relationship to Insured Coverage Start Date Coverage End Date [employer] PPO PLUS LOCAL PLAN [address] [place] [address] [id number] Devorah Shelton Self - patient is the insured Medical (General) History Medical History History ICD Code History of Asthma seaosonal allergiesear infectionstinnitusSurgical History Surgery Date(Month/Year) BMT, Adenoids 2004 tonsilectomy 2022
--- OUTSIDE RECORDS SUMMARY | 2025-03-27 20:03 | XMS_ITS | Encounter Summary ---
Author Organization [facility] Address [address] [place] [address] Care Team Providers Care Economics Professor Name Role Phone Jeremi Barnett MD Primary Care Provider [phone] Encounter Details DateTypeDepartmentCare Team (Latest Contact Info)Gurfblnvjpw36/22/2025Travel Social History Tobacco UseTypesPacks/DayYears UsedDateSmoking Tobacco: NeverSmokeless [...] drinks on one occasion?Never01/11/2024HQ-2AnswerDate RecordedPatient Health Questionnaire-2 Xwtsw690CommentsNoSex and Gender InformationValueDate Recorded Sex Assigned at BirthNot on fileLegal RhuCcrobc63/15/2023 6:48 PM EDTGender IdentityNot on fileSexual OrientationNot on fileOccupationIndustryJob Start Date Job End 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 Making Machine/Medical AsstNot on fileNot on fileNot on file documented as of this encounter Plan of Treatment DateTypeDepartmentCare Team (Latest Contact Info)Xpomksvywjl54/06/2025 12:00 PM ESTSocial Work [facility] [address] [place] [address] Flora Hernández LISW [address] [place] [address] 11/15/2025 1:00 PM EDTOffice Visit [facility] [address] [place] [address] 04/02/2026 2:00 PM ESTProcedure Visit [facility] [place] [facility] [address] [place] [address] Donovan Vora DO [address] [place] [address] documented as of this encounter Goals GoalPatient Goal TypeAssociated ProblemsRecent ProgressPatient-Stated?Author Reminders Care PlanOB RemindersNoOpen Scheduling, Backgrounddocumented as of this encounter Visit Diagnoses Not on filedocumented in this encounter Additional Health Concerns Active ProblemsNoted DateDiagnosed DateOB Usearqplj16/23/2025 documented as of this encounter Care Teams Team MemberRelationshipSpecialtyStart DateEnd Date Jeremi Barnett MD [address] [place] [address] PCP - GeneralInternal Medicine10/17/22documented as of this encounter
--- OUTSIDE RECORDS SUMMARY | 2025-03-27 20:03 | XMS_ITS | Clinical Summary ---
Author Organization [facility] Address [address] [place] [address] Care Team Providers Care Programmer Name Role Phone Jeremi Barnett MD Primary Care Provider [phone] Allergies No known active allergies Medications MedicationSigDispense QuantityRefillsLast FilledStart DateEnd DateStatus albuterol 90 mcg/actuation inhaler Inhale 1 puff every 4 (four) hours if needed.Active DULoxetine (Cymbalta) [address] capsule Take 30 mg by mouth in the morning.10/21/2022ctive Active Problems ProblemNoted DateDiagnosed DateDog bite of right hand02/17/2023 Social History Tobacco UseTypesPacks/DayYears UsedDateSmoking Tobacco: NeverSmokeless Tobacco: Never Tobacco Cessation:Counseling Given: Not Answered Alcohol UseStandard Drinks/WeekCommentsNot Currently0 (1 standard drink = 0.6 oz pure alcohol)PHQ-2AnswerDate RecordedPatient Health Questionnaire-2 Score0 02/24/2023UT Safety & EnvironmentAnswerDate RecordedFear of Current or Ex-PartnerNot on file07/17/2023Emotionally AbusedNot on file07/17/2023hysically AbusedNot on file07/17/2023Sexually AbusedNot on file07/17/2023hysically or Sexually AbusedNot on file07/17/2023CommentsUnknownSex and Gender InformationValueDate RecordedSex Assigned at BirthNot on fileLegal SexFemale 02/12/2023 8:59 AM EDTGender IdentityNot on fileSexual OrientationNot on file Last Filed Vital Signs Vital SignReadingTime TakenCommentsBlood Pressure--Pulse--Temperature-- Respiratory Rate--Oxygen Saturation--Inhaled Oxygen Concentration--Lsalzn72.6 kg (180 lb)02/24/2023 12:56 PM GIQOroenq358.5 cm (5' 2 )02/17/2023 8:06 AM EDTBody Mass Index32.9202/17/2023 8:06 AM EDT Plan of Treatment Health MaintenanceDue DateLast DoneCommentsDepression Gfxzxxchi97/27/2009 Varicella Vaccines (1 of 2 - 13+ 2-dose series)2010Pap Smear2018 COVID-19 Vaccine (3 - 2024- season)4/, 08/13/2020Influenza Vaccine (#1)/07/2021, 02/22/2021, 04/11/2009dult Eimmhee2511/10/2029 11/11/2019, 05/12/2017, 12/13/2012Zoster Vaccines (1 of 2)2047HIB Vaccines Wabfveiyz02/29/1998, 1997, 1997, Additional history existsIPV DvnzlswdEojijfcfq25/24/2002, 05/22/1998, 1997, Additional history exists Meningococcal VaccineAged Out08/22/2016, 12/13/2012No longer eligible based on patient's age to complete this topicHPV LeqwoktnMifgnwxug10/28/2017, 08/22/2016, 06/19/2016Meningococcal B AfbvrnqFzzyezomm34/28/2017, 08/22/2016Pneumococcal Vaccine: Pediatrics (0 to 5 Years) and At-Risk Patients (6 to 64 Years)Aged Out No longer eligible based on patient's age to complete this topicRotavirus VaccinesAged OutNo longer eligible based on patient's age to complete this topic Insurance Care Teams Team MemberRelationshipSpecialtyStart DateEnd Jeremi Barnett MD [address] [place] [address] [facility]02/13/23
--- OUTSIDE RECORDS SUMMARY | 2025-03-27 20:03 | XMS_ITS | Encounter Summary ---
Author Organization [facility] Address [address] [place] [address] Care Team Providers Care Dough Mixing Machine Operator Name Role Phone Jeremi Barnett MD Primary Care Provider [phone] Encounter Details DateTypeDepartmentCare Team (Latest Contact Info)Jzfcrliczjd06/31/2025Travel Social History Tobacco UseTypesPacks/DayYears UsedDateSmoking Tobacco: NeverSmokeless [...] drinks on one occasion?Never01/11/2024HQ-2AnswerDate RecordedPatient Health Questionnaire-2 Reado607CommentsUnknownSex and Gender InformationValueDate RecordedSex Assigned at BirthNot on fileLegal VjuJodzoj20/15/2023 6:48 PM EDT Gender IdentityNot on fileSexual OrientationNot on fileOccupationIndustryJob Start DateJob End 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/Medical AsstNot on fileNot on fileNot on filedocumented as of this encounter Plan of Treatment DateTypeDepartmentCare Team (Latest Contact Info)Obzfgkofpib79/06/2025 12:00 PM ESTSocial Work [facility] [address] [place] [address] Flora Hernández LISW [address] [place] [address] 11/15/2025 1:00 PM EDTOffice Visit [facility] [address] [place] [address] 04/02/2026 2:00 PM ESTProcedure Visit [facility] [place] [facility] [address] [place] [address] Donovan Vora DO [address] [place], [place] [address] documented as of this encounter Goals GoalPatient Goal TypeAssociated ProblemsRecent ProgressPatient-Stated?Author Reminders Care PlanOB RemindersNoOpen Scheduling, Backgrounddocumented as of this encounter Visit Diagnoses Not on filedocumented in this encounter Additional Health Concerns Active ProblemsNoted DateDiagnosed DateOB Mvfkktokk38/23/2025 documented as of this encounter Care Teams Team MemberRelationshipSpecialtyStart DateEnd Date Jeremi Barnett MD [address] [place] [address] PCP - GeneralInternal Medicine10/17/22documented as of this encounter
--- OUTSIDE RECORDS SUMMARY | 2025-03-27 20:03 | XMS_ITS | Clinical Summary ---
Author Organization [facility] Address [address] [place] [address] Care Team Providers Care Automated Process Operator Name Role Phone Jeremi Barnett MD Primary Care Provider [phone] Allergies Active AllergyReactionsCriticalityNoted DateCommentsAmoxicillin-Pot Clavulanate Mlbwqdwa25/16/2023 Other Reaction(s): diarrhea Clavulanic AcidGI jlwkwxrvunk45/20/2023Penicillin G Jbyxhx3310/07/2022 Other Reaction(s): vomiting, diarrhea Medications MedicationSigDispense QuantityRefillsLast FilledStart DateEnd DateStatus sertraline (Zoloft) 25 MG tablet Indications:Moderate episode of recurrent major depressive disorder (HCC), Generalized anxiety disorderTAKE 1 TABLET BY MOUTH EVERY DAY 90 tablet 5Active buPROPion XL (Wellbutrin XL) 150 MG 24 hr tablet Indications:Major depressive disorder, recurrent, moderate (HCC)Take 1 tablet (150 mg) by mouth in the morning. Do not crush, chew, or split. 30 tablet 5Active nystatin-triamcinolone (Mycolog II) cream Indications:Candidiasis, intertrigoApply topically in the morning and before bedtime. 45 g 5105/27/2024Discontinued doxycycline (Vibramycin) 100 MG capsule Indications:Exposure to chlamydiaTake 1 capsule (100 mg) by mouth in the morning and 1 capsule (100 mg) before bedtime. Do all this for 7 days. Take with at least 8 ounces (large glass) of water, do not lie down for 30 minutes after. 14 capsule Expired Active Problems ProblemNoted DateDiagnosed DatePanic gbrbjzo5003/24/2025PTSD (post-traumatic stress disorder)02/24/2025ttention deficit hyperactivity disorder (ADHD), predominantly inattentive type02/24/2025Tympanosclerosis of both ears02/10/2025 Tinnitus of both ears02/10/2025topic nzlqlyswhq63/19/2364Nwbkxuspfg42/19/2024 Moderate major mfpovvcluo70/16/2023Metabolic dysfunction-associated steatotic liver disease (MASLD)01/07/20235399Xjfrgsbzysmjzkfjir93/29/2023llergic rhinitis 10/18/2022eneralized anxiety lorhmrzk96/27/2023 Resolved Problems ProblemNoted DateDiagnosed DateResolved DateChronic ljqmtxa41 Chronic kzcaeexqaft62urrent Overview (01/07/2023): Added secondary to documentation in Social History. Znoigswnp24History of ryivbzpzhnbgz21Mild persistent asthma without cfophpwmtgem97/16/202308/ostoperative pain Recurrent streptococcal yglkjuhyzod59/16/202311/Fatty liver Encounters DateTypeDepartmentCare IshmEcolxgkdlvf12/03/2025 2:20 PM ESTProcedure Visit [facility] [address] [place] [address] Donovan Vora DO Well woman exam with routine gynecological exam; examination or test, positive result ([facility])03/27/2025amboo flowsheet [facility] [address] [place] [phone] Donovan Vora DO 03/24/2025 8:45 AM EDTOffice Visit [facility] [address] [place] [address] Kary Duron PA Moderate major depression (HCC) (Primary Dx); Generalized anxiety disorder; Trouble in sleeping; Panic attacks; Morbid (severe) obesity due to excess calories ([facility])03/24/2025Travel 03/23/2025amboo flowsheet [facility] [address] [place] [address] Flora Hernández LISW 03/23/20252304Awaqbh63/22/5878Jitbvs29/14/2025 2:00 PM EDTSocial Work [facility] [address] [place] [address] Flora Hernández LISW Complex posttraumatic stress disorder; Family history of kqjcax6303/07/2025amb flowsheet [facility] [address] [place] [address] Flora Hernández LISW 03/07/20251320Mjhtvh88/13/2025Orders Only [facility] External Department Unsolicited Maia Boyer NP 03/06/20255648Tkwasq86/13/2025Telephone [facility] [address] [address] Maia Boyer NP 02/24/2025 9:45 AM EDTOffice Visit [facility] [address] [place] [address] Kary Duron PA Moderate major depression (HCC) (Primary Dx); PTSD (post-traumatic stress disorder); Attention deficit hyperactivity disorder (ADHD), predominantly inattentive type; Major depressive disorder, recurrent, moderate (HCC)02/24/20259261Apasak28/02/2025 9:00 AM EDTSocial Work [facility] [address] [place] [address] Flora Hernández LISW Moderate major depression (HCC); Complex posttraumatic stress disorder; Attention or concentration xhcrwkq6802/23/2025amboo flowsheet [facility] [address] [place] [address] Flora Hernández LISW 02/23/20251897Nangpx34/01/9177Zkfpar04/29/2025Telephone [facility] [address] [place] [address] Maia Boyer NP 02/10/2025 8:45 AM EDTOffice Visit [facility] [address] [place] [address] Kary Duron PA Moderate major depression (HCC) (Primary Dx)02/10/20251523Oxgyzj38/17/2025Travel 12/25/2024Refill [facility] [address] [place] [address] Kary Duron PA Moderate episode of recurrent major depressive disorder (HCC); Generalized anxiety disorderfrom Last 3 Months Immunizations ImmunizationAdministration DatesNext DueDTaP, Kxhcdewehvu40/24/2002,05/22/1998, 1997,1997,1997HPV 9-Azybjg3412/19/2016,08/22/2016,06/19/2016Hep A, Adult12/19/2016,06/19/2016Hep B, Adolescent or Qyapgxexz46/14/1998,1997 ,1997HiB, tlbyjnscfkn44/29/1998,1997,1997,1997IPV 02/15/2002,1997,1997Influenza, injectable, MDCK, preservative free, lljiodtudnxj60/22/2024,02/24/2022Influenza, injectable, facwjsiiwjjp30/01/2021 MMR02/15/2002,02/20/1998Meningococcal B, Omv12/19/2016,08/22/2016Meningococcal TYT5F06/,12/13/2012Novel wrgoeihgz-Z6C4-70, preservative-free04/11/2009 OPV1Pfizer Purple Cap SARS-CoV-2 Swppirxgbet42/23/6765Brwb25/19/2020, 05/12/2017,12/13/2012 Family History Medical HistoryRelationNameCommentsNo Known ProblemsFatherunknownDiabetes Maternal GrandfatherDavidLung cancerMaternal GrandfatherDavidAsthmaMaternal GrandmotherDianeHypertensionMaternal GrandmotherDianeDiabetesMaternal Great-GrandmotherHeart diseaseMaternal Great-GrandmotherDiabetesMotherDawn HyperlipidemiaMotherDawnHypertensionMotherDawnMental illnessMotherDawnMigraines MotherDawnStrokeMotherDawnNo Known ProblemsPaternal GrandfatherunknownNo Known ProblemsPaternal GrandmotherunknownRelationNameStatusCommentsFatherMaternal GrandfatherDavidAliveMaternal GrandmotherDianeAliveMaternal Great-Grandmother MotherDawnAlivePaternal GrandfatherPaternal Grandmother Social History Tobacco UseTypesPacks/DayYears UsedDateSmoking Tobacco: NeverSmokeless Tobacco: Never Tobacco Cessation:Counseling Given: Not Answered Alcohol UseStandard Drinks/WeekCommentsYes0 (1 standard drink = 0.6 oz pure alcohol)Once in a while. Caffeine, 1 pop dailyAUDIT-CAnswerDate RecordedQ1: How often do you have a drink containing alcohol?Never01/11/2024Q2: How many drinks containing alcohol do you have on a typical day when you are drinking?Patient does not drink01/11/2024Q3: How often do you have six or more drinks on one occasion?Never01/11/2024HQ-2AnswerDate RecordedPatient Health Questionnaire-2 Gtdyd873CommentsUnknownSex and Gender InformationValueDate RecordedSex Assigned at BirthNot on fileLegal TxxDqqdqv31/15/2023 6:48 PM EDT Gender IdentityNot on fileSexual OrientationNot on fileOccupationIndustryJob Start DateJob End 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/Medical 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 on fileNot on fileNot on file Last Filed Vital Signs Vital SignReadingTime TakenCommentsBlood Zsgdlyhz945/7003/27/2025 2:42 PM EST Gjiuc833403/24/2025 8:38 AM KDEUvkgdqfqndr35.4 ??C (97.5 ??F)12/18/2024 10:58 AM EDTRespiratory Wyzz049902/11/2023 11:59 AM EDTOxygen Bshuqkxhcf47%03/24/2025 8:38 AM EDTInhaled Oxygen Concentration--Vrrpfw77.5 kg (212 lb 12.8 oz)03/27/2025 2:42 PM VXDXvvbml348.5 cm (5' 2 )03/24/2025 8:38 AM EDTBody Mass Index38.92 03/24/2025 8:38 AM EDT Plan of Treatment DateTypeDepartmentCare Team (Latest Contact Info)Loqzbqhgnoj43/06/2025 12:00 PM ESTSocial Work [facility] [address] [place] [address] Flora Hernández LISW [address] [place] [address] 11/15/2025 1:00 PM EDTOffice Visit [facility] [address] [place] [address] 04/02/2026 2:00 PM ESTProcedure Visit [facility] [address] [place] [address] Donovan Vora DO [address] [place] [address] Health MaintenanceDue DateLast DoneCommentsCOVID-19 Vaccine ( season) , 09/04/2020, 08/14/2020Influenza Vaccine (#1)2025 03/15/2024, 02/24/2022, 1Pneumococcal Vaccine: Pediatrics (0 to 5 Years) and At-Risk Patients (6 to 64 Years)Aged OutNo longer eligible based on patient's age to complete this topic Goals GoalPatient Goal TypeAssociated ProblemsRecent ProgressPatient-Stated?Author Reminders Care PlanOB RemindersNoOpen Scheduling, Background Procedures Procedure NamePriorityDate/TimeAssociated DiagnosisCommentsPOCT , URINE Vosshxr4103/27/2025 2:49 PM EST examination or test, positive result ([facility]) CT/GC/TV CRYSTAL+M GENITALIUM UR.Dyccglf6703/06/2025 12:56 PM EDT from Last 3 Months Results * POCT , urine manually resulted (03/27/2025 2:49 PM EST)ComponentValue Ref RangeTest MethodAnalysis TimePerformed AtPathologist SignaturePreg Test, UrNegativeNegativeSpecimen (Source)Anatomical Location / LateralityCollection Method / VolumeCollection TimeReceived HrmiKvnfu52/03/2025 2:49 PM EST Narrative Authorizing ProviderResult TypeResult StatusCorey Vielka DOPOINT OF CARE TEST ENTER/EDIT ORDERABLESFinal Result * Ct/GC/Tv CRYSTAL+M genitalium Ur. (03/06/2025 12:56 PM EDT)ComponentValueRef Range Test MethodAnalysis TimePerformed AtPathologist SignatureMyco genitalium Ur NAANegativeNegativeLABCORPTrich vag by NAANegativeNegativeLABCORPChlamydia trachomatis, NAANegativeNegativeLABCORPNeisseria gonorrhoeae, NAANegative NegativeLABCORPSpecimen (Source)Anatomical Location / LateralityCollection Method / VolumeCollection TimeReceived Time03/06/2025 12:56 PM EDT1 Comment:UR Narrative [facility] - 03/10/2025 1:07 PM EDT Performed at: 01 - [facility] [address] [address] [place] ??[id number] Petal Shaper Hand: Moon Tan MD, Phone: ??[phone] Performed at: ??02 - [facility] [address] ??[id number] Petal Shaper Hand: Liza Cheema MD, Phone: ??[phone] Authorizing ProviderResult TypeResult StatusLindssteve Lopez Merlin NPLAB URINE ORDERABLESFinal ResultPerforming OrganizationAddressCity/State/ZIP CodePhone Number [facility] from Last 3 Months Additional Health Concerns Active ProblemsNoted DateDiagnosed DateOB Izberarfs45/23/2025 Insurance Care Teams Team MemberRelationshipSpecialtyStart Jeremi Barnett MD [address] [place] [address] PCP - GeneralInternal Medicine10/17/22
--- OUTSIDE RECORDS SUMMARY | 2025-03-27 20:03 | XMS_ITS | Encounter Summary ---
Author Organization [facility] Address [address] [place] [address] Care Team Providers Care Radio Disc Jockey Name Role Phone Jeremi Barnett MD Primary Care Provider [phone] Encounter Details DateTypeDepartmentCare Team (Latest Contact Info)Yuouzvfoaam58/30/2025Travel Social History Tobacco UseTypesPacks/DayYears UsedDateSmoking Tobacco: NeverSmokeless [...] drinks on one occasion?Never01/11/2024HQ-2AnswerDate RecordedPatient Health Questionnaire-2 Ugstt527CommentsNoSex and Gender InformationValueDate Recorded Sex Assigned at BirthNot on fileLegal GcnZpaxte28/15/2023 6:48 PM EDTGender IdentityNot on fileSexual OrientationNot on fileOccupationIndustryJob Start Date Job End 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 on fileNot on fileNot on file documented as of this encounter Plan of Treatment DateTypeDepartmentCare Team (Latest Contact Info)Qbrtxiswtjh67/06/2025 12:00 PM ESTSocial Work [facility] [address] [place] [address] Flora Hernández LISW [address] [place] [address] 11/15/2025 1:00 PM EDTOffice Visit [facility] [address] [place] [address] 04/02/2026 2:00 PM ESTProcedure Visit [facility] [address] [place] [address] Donovan Vora DO [address] [place] [address] documented as of this encounter Goals GoalPatient Goal TypeAssociated ProblemsRecent ProgressPatient-Stated?Author Reminders Care PlanOB RemindersNoOpen Scheduling, Backgrounddocumented as of this encounter Visit Diagnoses Not on filedocumented in this encounter Additional Health Concerns Active ProblemsNoted DateDiagnosed DateOB Uhhodzson88/23/2025 documented as of this encounter Care Teams Team MemberRelationshipSpecialtyStart DateEnd Date Jeremi Barnett MD [address] [place] [address] PCP - GeneralInternal Medicine10/17/22documented as of this encounter
--- OUTSIDE RECORDS SUMMARY | 2025-03-27 20:03 | XMS_ITS | Encounter Summary ---
Author Organization [facility] Address [address] [place] [address] Care Team Providers Care Analysis Or Research Safety Inspector Name Role Phone Jeremi Barnett MD Primary Care Provider [phone] Encounter Details DateTypeDepartmentCare Team (Latest Contact Info)Cmdiocuaqkp26/30/2025amboo flowsheet [facility] [address] [facility] [address] [place] [phone] Flora Hernández LISW [address] [facility] [address] [place] [address] Social History Tobacco UseTypesPacks/DayYears UsedDateSmoking Tobacco: NeverSmokeless [...] drinks on one occasion?Never01/11/2024HQ-2AnswerDate RecordedPatient Health Questionnaire-2 Qikiq147CommentsNoSex and Gender InformationValueDate Recorded Sex Assigned at BirthNot on fileLegal WfbEaumkb13/15/2023 6:48 PM EDTGender IdentityNot on fileSexual OrientationNot on fileOccupationIndustryJob Start Date Job End DateMedical Chain Forming Machine Operator/Medical AsstNot on fileNot on fileNot on file documented as of this encounter Plan of Treatment DateTypeDepartmentCare Team (Latest Contact Info)Hfomtzjxpdr86/06/2025 12:00 PM ESTSocial Work [facility] [address] [place] [address] Flora Hernández LISW [address] [place] [address] 11/15/2025 1:00 PM EDTOffice Visit [facility] [address] [place] [address] 04/02/2026 2:00 PM ESTProcedure Visit [facility] [place] [facility] [address] [place] [address] Donovan Vora DO [address] [place] [address] documented as of this encounter Goals GoalPatient Goal TypeAssociated ProblemsRecent ProgressPatient-Stated?Author Reminders Care PlanOB RemindersNoOpen Scheduling, Backgrounddocumented as of this encounter Visit Diagnoses Not on filedocumented in this encounter Additional Health Concerns Active ProblemsNoted DateDiagnosed DateOB Aeaejqgsk05/23/2025 documented as of this encounter Care Teams Team MemberRelationshipSpecialtyStart DateEnd Date Jeremi Barnett MD [address] [place] [address] PCP - GeneralInternal Medicine10/17/22documented as of this encounter
--- OUTSIDE RECORDS SUMMARY | 2025-03-27 20:03 | XMS_ITS | Patient Health Record ---
Author Organization [facility] Address [address] [place] [address] Care Team Providers Care Global Process Owner Name Role Phone Dr. José Miguel Calderon Primary Care Provider [phone] Reason For Referral No Information Medications Medication SIG (Take, Route, Frequency, Duration) Notes Start Date End Date Status PreviDent 1.1 % Gel as directed Dental 03/11/2023ctive Plan Of Treatment No Information Insurance Providers Payer Name Payer Address Payer Phone Subscriber Number Group Number Insured Name Patient Relationship to Insured Coverage Start Date Coverage End Date DENTAL PRINCIPAL [address] [address] [place] [address] [id number] CHUNG GAMBLEelf - patient is the [id number] 2022
--- OUTSIDE RECORDS SUMMARY | 2025-03-27 20:03 | XMS_ITS | Encounter Summary ---
Author Organization [facility] Address [address] [place] [address] Care Team Providers Care Broadband Engineer Name Role Phone Jeremi Barnett MD Primary Care Provider [phone] Encounter Details DateTypeDepartmentCare Team (Latest Contact Info)Snzombkgafk19/03/2025amboo flowsheet [facility] [address] [place] [phone] Donovan Vora DO [address] [place] [address] Social History Tobacco UseTypesPacks/DayYears UsedDateSmoking Tobacco: NeverSmokeless [...] drinks on one occasion?Never01/11/2024HQ-2AnswerDate RecordedPatient Health Questionnaire-2 Akicz362CommentsUnknownSex and Gender InformationValueDate RecordedSex Assigned at BirthNot on fileLegal DctNavxte61/15/2023 6:48 PM EDT Gender IdentityNot on fileSexual OrientationNot on fileOccupationIndustryJob Start DateJob End DateMedical Assembler Chassis/Medical AsstNot on fileNot on fileNot on filedocumented as of this encounter Plan of Treatment DateTypeDepartmentCare Team (Latest Contact Info)Vvzlkbkaqnd06/06/2025 12:00 PM ESTSocial Work [facility] [address] [place] [address] Flora Hernández LISW [address] [place] [address] 11/15/2025 1:00 PM EDTOffice Visit [facility] [address] [place] [address] 04/02/2026 2:00 PM ESTProcedure Visit [facility] [place] [facility] [address] [place] [address] Donovan Vora DO [address] [place] [address] documented as of this encounter Goals GoalPatient Goal TypeAssociated ProblemsRecent ProgressPatient-Stated?Author Reminders Care PlanOB RemindersNoOpen Scheduling, Backgrounddocumented as of this encounter Visit Diagnoses Not on filedocumented in this encounter Additional Health Concerns Active ProblemsNoted DateDiagnosed DateOB Tylflznik21/23/2025 documented as of this encounter Care Teams Team MemberRelationshipSpecialtyStart DateEnd Date Jeremi Barnett MD [address] [place] [address] PCP - GeneralInternal Medicine10/17/22documented as of this encounter
[2025-03-31 12:08] LABS: Age Gdln ACOG Testing Note (.); IGP, rfx Aptima HPV ASCU Note (.)
== END 2025-03-27 19:59 | disposition home or self-care (01) ==
LOC: LAB 19:58
PROVIDERS: PCP Internal Medicine; Visit Provider Obstetrics & Gynecology
DX: Z01.419 Encounter for gynecological examination (general) (routine) without abnormal findings (principal)
CPT/HCPCS: 88175